=== PATIENT | female | born 1945 | race Caucasian/White ===

== ENCOUNTER → 2020-05-15 13:48 | Outpatient (BNVA) | payer MEDICARE, SELFPAY | PROVIDERS: PCP Internal Medicine; Referring Provider Internal Medicine; Visit Provider Internal Medicine Cardiovascular Disease | DX: I11.0 Hypertensive heart disease with heart failure (principal); I50.32 Chronic diastolic (congestive) heart failure; Z79.899 Other long term (current) drug therapy | CPT/HCPCS: 99212 ==

== ENCOUNTER 2020-11-19 11:13 | Outpatient (REF) | payer MEDICARE, SELFPAY ==
--- NOTE | ~2020-11-19 | MM_ITS ---
EXAMINATION: MM SCREENING DIGITAL BREAST TOMOSYNTHESIS, BILATERAL CLINICAL INFORMATION: Screening. Asymptomatic. The lifetime risk of breast cancer based on the Tyrer-Cuzick Model is 2%. COMPARISON: Mammography: 09/11/2019, 08/24/2018, 08/09/2017 TECHNIQUE: Digital breast tomosynthesis is performed in both the craniocaudal and mediolateral oblique views along with computer-aided detection (CAD). Synthesized 2D images are generated from the tomosynthesis. FINDINGS: The breasts are almost entirely fatty (ACR BI-RADS breast composition Category a). There are no significant masses, abnormal calcifications, or other abnormalities. Background stromal markings are stable. The skin contours are smooth. No significant changes. MM/MM tomosynthesis screening BI IMPRESSION: No mammographic evidence of malignancy. ASSESSMENT: BI-RADS 1: Negative RECOMMENDATION: Routine annual mammography screening. This patient's information was entered into a reminder system with a target due date for their next mammogram.
== END 2020-11-19 11:14 | disposition home or self-care (01) ==
LOC: HO.MAMMO 11:13
PROVIDERS: PCP Internal Medicine; Visit Provider Internal Medicine
DX: Z12.31 Encounter for screening mammogram for malignant neoplasm of breast (principal)
CPT/HCPCS: 77063; 77067

== ENCOUNTER → 2020-12-15 12:04 | Outpatient (BNVA) | payer MEDICARE, SELFPAY | PROVIDERS: PCP Internal Medicine; Visit Provider Orthopaedic Surgery | DX: M17.11 Unilateral primary osteoarthritis, right knee (principal); I50.32 Chronic diastolic (congestive) heart failure; G47.33 Obstructive sleep apnea (adult) (pediatric); I10 Essential (primary) hypertension | CPT/HCPCS: 99212 ==

== ENCOUNTER → 2020-12-22 14:52 | Outpatient (BNVA) | payer MEDICARE, SELFPAY | PROVIDERS: PCP Internal Medicine; Visit Provider Internal Medicine Cardiovascular Disease | DX: I11.0 Hypertensive heart disease with heart failure (principal); I50.32 Chronic diastolic (congestive) heart failure | CPT/HCPCS: 99212 ==

== ENCOUNTER → 2021-03-02 09:51 | Outpatient (BNVA) | payer MEDICARE, SELFPAY | PROVIDERS: PCP Internal Medicine; Visit Provider Orthopaedic Surgery | DX: Z01.812 Encounter for preprocedural laboratory examination (principal); Z01.810 Encounter for preprocedural cardiovascular examination ==

== ENCOUNTER 2021-03-20 08:00 | Outpatient (RCR) | payer MEDICARE, SELFPAY ==
--- NOTE | 2021-03-18 09:03 | MHC.PT.EP ---
[facility] [place] Office [place] Office [place] Office [address] Bayron Patrick [address] [phone] F: [phone] F: [phone] F: [phone] F: [phone] Physical Therapy Plan of Care Date of Evaluation: Date of Surgery: 04/15/21 Diagnosis: OA Rt KNEE-> PREHAB FOR RIGHT TKA 04/15/21 Assessment: 75 YO FEMALE REF TO PT FOR Rt TKR PREHAB, SURG SCHED 04/15/21. Pt CURRENTLY AMB W A CANE AND RESIDES ALONE IN A 1ST FLOOR APT, HER DTR IS HER BINDERY ASSISTANT TO ASSIST W ALL ADLs AND HOUSE CHORES. OBJECTIVE FINDINGS: (+) GENU VALGUS W LLI, DECR HIP AND ACTUALLY LEFT KNEE ROM LIMITATIONS, DECR STRENGTH IN KELLI LEs, AND Rt KNEE AND HIP PAIN. FUNCTIONALLY, Pt NOTES SHE IS LIMITED W ADLs REQ STANDING AND HER WALKING TOLERANCE IS LIMITED BY HER PAIN LEVEL IN Rt HIP AND KNEE. Pt IS A GOOD CANDIDTAE FOR PREHAB FOR Rt TKA SCHED 04/15/[address] CALDWELL TO ADDRESS THE ABOVE FINDINGS W RESPECT TO Jt PAIN. 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 Manual therapy to restore motion and function. Therapeutic exercise to improve strength and flexibility. Neuromuscular re-education for posture and balance. Therapeutic activities to return to functional activities of daily living. Electronically signed by: Leyla Teixeira,PT Please sign and return to therapist. Thank you for your referral.
--- NOTE | 2021-03-30 14:46 | MHC.PT.DC ---
[facility] [place] Office [place] Office [place] Office [address] Bayron Patrick [address] [phone] F: [phone] F: [phone] F: [phone] F: [phone] Physical Therapy Discharge Report Diagnosis: OA Rt KNEE-> PREHAB FOR RIGHT TKA 04/15/21 Date of Surgery: 04/15/21 Date of Evaluation: 03/18/21 Date of Discharge: 03/30/21 Treatments to Date: 2 Cancellations to Date: 2 No Shows to Date: 0 Discharge Status: Achieved Goals Improved Function Independent with HEP Patient Elected to Stop Discharge Summary: Pt called to cancel and D/C PT, reporting she will continue with her exercises at home prior to her upcoming surgery. She has a good understanding of TKA rehab and importance of HEP continuity at this time. Electronically signed by: Dawn Perkins BOW MAKER MACHINE TENDER/ Leyla Teixeira,PT Please sign and return to therapist. Thank you for your referral.
== END 2021-03-30 14:47 | disposition home or self-care (01) ==
LOC: HO.PT 08:00
PROVIDERS: PCP Internal Medicine; Visit Provider Orthopaedic Surgery
DX: M17.11 Unilateral primary osteoarthritis, right knee (principal)
CPT/HCPCS: 97110; 97162

== ENCOUNTER → 2021-03-31 13:08 | Outpatient (BNVA) | payer MEDICARE, SELFPAY | PROVIDERS: PCP Internal Medicine; Referring Provider Internal Medicine; Visit Provider Nurse Practitioner Family ==

== ENCOUNTER 2021-04-03 08:05 | Outpatient (REF) | payer MEDICARE, SELFPAY ==
--- NOTE | ~2021-04-03 | XR_ITS ---
EXAMINATION: X-RAY OF THE RIGHT KNEE CLINICAL INFORMATION: 75-year-old female patient with pain in the right knee. COMPARISON: X-ray of both knees on a total of 05/30/2018 and 05/15/2018. TECHNIQUE: AP standing views of both knees, lateral and sunrise views of the right knee. FINDINGS: Again both knees show a significant degree of osteoarthritis with severe joint space narrowing and bone on bone appearance to the lateral compartment of the right knee, right resulting in genu valgum, and medial compartment of the left knee. There is associated juxta-articular sclerosis and marginal hypertrophic spur formation. The right knee shows coexistent patellofemoral arthritis with marginal spur formation. There is no joint effusion of the right knee. Since 2018, there is progressive degenerative change of the left knee. XR/XR knee RT 2V IMPRESSION: Significant osteoarthritis of both knees worse on the right than left.
--- NOTE | ~2021-04-03 | XR_ITS ---
EXAMINATION: X-RAY OF THE RIGHT KNEE CLINICAL INFORMATION: 75-year-old female patient with pain in the right knee. COMPARISON: X-ray of both knees on a total of 05/30/2018 and 05/15/2018. TECHNIQUE: AP standing views of both knees, lateral and sunrise views of the right knee. FINDINGS: Again both knees show a significant degree of osteoarthritis with severe joint space narrowing and bone on bone appearance to the lateral compartment of the right knee, right resulting in genu valgum, and medial compartment of the left knee. There is associated juxta-articular sclerosis and marginal hypertrophic spur formation. The right knee shows coexistent patellofemoral arthritis with marginal spur formation. There is no joint effusion of the right knee. Since 2018, there is progressive degenerative change of the left knee. XR/XR knee standing BI IMPRESSION: Significant osteoarthritis of both knees worse on the right than left.
[2021-04-03 10:27] LABS: Anion Gap 15 (12-20); Blood Urea Nitrogen 26 mg/dL (9-16); Calcium 10.4 mg/dL (8.4-10.2); Carbon Dioxide 30 mmol/L (22-29); Chloride 98 mmol/L (96-108); Estimated Glomerular Filt Rate 48; Glucose Random 120 mg/dL (60-115); Sodium 140 mmol/L (135-145)
== END 2021-04-03 08:06 | disposition home or self-care (01) ==
LOC: HO.HOSX 08:05
PROVIDERS: Absent Provider Nurse Practitioner Family; PCP Internal Medicine; Visit Provider Physician Assistant
DX: M25.562 Pain in left knee (principal); I50.32 Chronic diastolic (congestive) heart failure; M17.11 Unilateral primary osteoarthritis, right knee
CPT/HCPCS: 36415; 73560; 73565; 80048; 99212

== ENCOUNTER → 2021-04-13 07:39 | Outpatient (REF) | payer MEDICARE, SELFPAY ==
--- NOTE | 2021-04-13 07:43 | CA_ITS ---
Transthoracic Echocardiogram Patient (Last, First, Middle): Victorina Francois E Gender: Female Date of : 1945 Age: 75 Procedure Date: 04/13/2021 Procedure Type: Transthoracic Echocardiogram Location: OP Height: 147.32 cm Weight: 84.37 kg BSA: 1.77 m2 Heart Rate: bpm BP: 118 / 60 mmHg Product Marketer: Referring MD: Bia Shrestha CNC MACHINE PROGRAMMERReena Symptoms: Z01.810 - Encounter for preprocedural cardiovascular exam... Study Quality: Fair ECG Rhythm: Sinus Conclusions: - The left ventricular systolic function is normal. The calculated ejection fraction is 72% by biplane method. - The left atrium is moderately dilated. - There is mild calcification of the aortic valve. - There is mild mitral annular calcification. Findings Left Ventricle Normal left ventricular cavity size. There is mildly increased left ventricular wall thickness. The left ventricular systolic function is normal. The calculated ejection fraction is 72% by biplane method. There is no evidence of regional wall motion abnormalities. E/E prime ratio is between 8 and 15 consistent with indeterminate filling pressures. Evidence suggests grade I (mild) diastolic dysfunction. Right Ventricle Normal right ventricular cavity size and systolic function. Atria The left atrium is moderately dilated. The right atrium is mildly dilated. Aortic Valve There is a normal trileaflet aortic valve. There is mild calcification of the aortic valve. There is no aortic valve stenosis. The mean gradient is 9 mmHg. The aortic valve area is 2.60 cm2. There is no aortic valve regurgitation. Mitral Valve There is mild mitral annular calcification. There is no mitral valve regurgitation. There is no mitral valve stenosis. Pulmonic Valve The pulmonic valve was not well visualized. Tricuspid Valve Normal tricuspid valve structure. There is mild tricuspid valve regurgitation. The pulmonary artery systolic pressure is normal. Great Vessels The aortic annulus, sinuses of valsalva, and asc aorta are normal in size. Small plaque is seen in the sino tubular ridge. Venous The inferior vena cava is normal in size and collapses greater than 50% with inspiration. Pericardium/Pleural There is no evidence of pericardial effusion. Prior Study Comparison Changes noted compared to prior study dated: 04/20/2018. Increase in left atrial size. Measurements 2D Linear Measurements IVSd: 1.24 0.6-0.9/0.6-1.0 cm LVIDd: 4.46 3.9-5.3/4.2-5.9 cm LVIDd Index: 2.52 2.4-3.2/2.2-3.1 cm/m2 LVIDs: 2.60 2.0-3.6 cm LVPWd: 1.22 0.7-1.1 cm Ao Root: 2.70 2.1-3.5 cm LA Diam: 3.80 2.7-3.8/3.0-4.0 cm LAIDs Index: 2.15 1.5-2.3 cm/m2 LV Mass: 252.36 67-162/88-224 g LV Mass Index: 142.58 43-95/49-115 g/m2 LVOT Diam: 2.10 3.0+(-)1.3 cm 2D Systolic Function EF 4C: 71.80 >55% EF 2C: 71.40 >55% EF BiP: 72.00 >55% Mitral Valve MV Pk E: 0.61 MV PK A: 1.05 MV Decel Time: 272.00 E/A: 0.60 E'Lateral: 6.53 E'Medial: 5.66 E/E' Med: 10.70 E/E' Lat: 9.30 PHT: 80.00 MVA PHT: 2.75 Decel Howard: 2.24 Aortic Valve AoV Pk Raman: 1.95 AoV Mn Raman: 1.36 AoV VTI: 0.46 AoV Pk Grad: 15.00 Aov Mn Grad: 9.00 STEVIE Cont.VTI: 2.60 LVOT LVOT Pk Raman: 1.35 LVOT Mn Raman: 1.00 LVOT VTI: 0.35 LVOT Pk Grad: 7.00 LVOT Mn Grad: 4.00 LVOT Diam: 2.10 LVOT Area: 3.46 Diastolic Function MV Pk E: 0.61 MV Pk A: 1.05 E/A: 0.60 E'Medial: 5.66 E/E' Med: 10.70 E' Laterial: 6.53 E/E' Lat: 9.30 Right Ventricle TAPSE (mm): 24.00 TVS' Raman: 11.00 Tricuspid Valve TR Pk Raman: 2.37 TR Pk Grad: 22.00 Great Vessels Aorta Ao Root-2D: 2.70 2.0-3.7 cm Ao Asc: 3.00 2.1-3.4 cm Pulmonary Valve PV Pk Raman: 1.15 Peak PV Grad: 5.00 Updated in Other Vendor System with Status of Final Jani Yoo MD electronically signed on 04/13/2021 10:03:29 AM with status of Final
== END ==
LOC: HO.CARD 07:39
PROVIDERS: PCP Internal Medicine; Visit Provider Nurse Practitioner Family
DX: Z01.810 Encounter for preprocedural cardiovascular examination (principal); I11.0 Hypertensive heart disease with heart failure; I50.32 Chronic diastolic (congestive) heart failure; G47.33 Obstructive sleep apnea (adult) (pediatric)
CPT/HCPCS: 93306

== ENCOUNTER → 2021-05-21 15:19 | Outpatient (BNVA) | payer MEDICARE, SELFPAY | PROVIDERS: Visit Provider Physician Assistant | DX: Z01.818 Encounter for other preprocedural examination (principal); M17.11 Unilateral primary osteoarthritis, right knee | CPT/HCPCS: 99212 ==

== ENCOUNTER 2021-05-27 06:25 | Inpatient (IN) | payer MEDICARE, SELFPAY ==
--- NOTE | 2021-03-18 06:50 | ECG_ITS ---
Test Reason : Z01.810 PREOP Blood Pressure : / mmHG Vent. Rate : 063 BPM Atrial Rate : 063 BPM P-R Int : 148 ms QRS Dur : 084 ms QT Int : 448 ms P-R-T Axes : 058 004 004 degrees QTc Int : 458 ms Normal sinus rhythm Possible Left atrial enlargement Nonspecific ST and T wave abnormality Abnormal ECG No previous ECGs available Referred By: Soto Ayon Electronically Signed By:NICHOLAS CARDOSO
[2021-03-18 06:54] LABS: MANUAL DIFF FLAG NO
[2021-03-18 07:00] LABS: Basophils Percent Auto 0.5 % (0-2); Eosinophils Absolute Auto 0.3 X10*3/uL (0.0-0.4); Eosinophils Percent Auto 4.1 % (0-4); Hematocrit 35.7 % (37-47); Hemoglobin 11.2 g/dl (12.0-16.0); Imm Gran Abs Auto 0.02 X10*3/uL (0.00-0.03); Imm Gran Pct Auto 0.3 % (0.0-0.4); Lymphocytes Absolute Auto 1.6 X10*3/uL (1.2-4.9); Lymphocytes Percent Auto 21.8 % (20-40); Mean Corpuscular HGB Conc 31.4 g/dl (31.0-35.0); Mean Corpuscular Hemoglobin 25.2 pg (27.0-33.0); Mean Corpuscular Volume 80.4 fL (80-98); Mean Platelet Volume 11.2 fL (9.4-12.3); Monocytes Absolute Auto 0.6 X10*3/uL (0.1-1.2); Monocytes Percent Auto 8.4 % (2-11); Neutrophils Absolute Auto 4.8 X10*3/uL (2.0-8.3); Neutrophils Percent Auto 64.9 % (45-73); Platelet Count 267 X10*3/uL (160-400); Red Blood Count 4.44 X10*6/uL (4.20-5.50); Red Cell Distribution Width 15.9 % (11.0-16.0); White Blood Count 7.4 X10*3/uL (4.8-10.8)
[2021-03-18 07:15] LABS: Anion Gap 10 (12-20); Blood Urea Nitrogen 17 mg/dL (9-16); Calcium 10.2 mg/dL (8.4-10.2); Carbon Dioxide 33 mmol/L (22-29); Chloride 102 mmol/L (96-108); Estimated Glomerular Filt Rate 58; Glucose Random 119 mg/dL (60-115); Potassium 3.1 mmol/L (3.3-5.1); Sodium 142 mmol/L (135-145)
[2021-03-18 07:48] LABS: Estimated Average Glucose 134 mg/dL; Hemoglobin A1C 150.2194 umol/L; Hemoglobin A1c % 6.3 %
--- NOTE | 2021-03-25 11:57 | HO.ANESPROP2 ---
HPI - Anesthesia Eval Consult details Narrative: Cx'd d/t low K (dropped from 3.1 to 2.8 after supplement - PCP to optimize) 75yo F for Right Knee Replacement Total 04/15/21 Low K, PCP rx'd supplement. PCP to recheck and see again preop for clearance Cardiac cleared for intermed (no recent echo, last 2018) - Reviewed with Dr Romero - update ECHO preop PMFSH Active Problems Active Problems: All Active Problems (Updated 03/24/21 @ 09:28 by Jasmyn Holland RN) Osteoarthritis of right knee (Acute) Chronic diastolic heart failure (Acute) Hypertension (Acute) JOVANNI (obstructive sleep apnea) (Acute) Past Medical History Medical History Chronic diastolic heart failure Diabetes GERD (gastroesophageal reflux disease) Hyperlipidemia Hypertension JOVANNI (obstructive sleep apnea) Osteoarthritis Family History Family History Father HTN (hypertension) Mother HTN (hypertension) CVD (cardiovascular disease) Daughter Bone cancer Father Cancer Family history of problems with anesthesia: No Surgical History Surgical History H/O: hysterectomy History of salpingoophorectomy History of tonsillectomy Hx of colonoscopy History of Problems with Anesthesia: No Social History Social History Are you a primary personal care worker to a significant other at home: No Do you presently have visiting nurse or other home services: Yes (VICE PRESIDENT TALENT MANAGEMENT daily and at night) Alcohol intake: never Patient Tobacco Use Status: Never used Tobacco Second Hand Smoke Exposure: No Current occupational status: retired Current occupation: Right handed Narrative Narrative: No recent illness - chronic nasal congestion No CP/SOB with rest - minimal activity r/t pain Meds Allergies Allergy/AdvReac Type Severity Reaction Status Date / Time Penicillins [PENICILLINS] Allergy Intermediate NAUSEA/HIVE Verified 03/31/21 13:19 S Home Medications Medication Instructions Recorded Confirmed Last Taken Type cyanocobalamin (vitamin B-12) 1,000 mcg PO DAILY 05/15/20 03/31/21 Unknown History 1,000 mcg tablet oxybutynin chloride 5 mg tablet 5 mg PO DAILY 05/15/20 03/31/21 Unknown History ranitidine HCl 300 mg tablet 300 mg PO BEDTIME 05/15/20 03/31/21 Unknown History calcium carbonate 600 mg calcium 1 tab PO QAM 03/24/21 03/31/21 Unknown History (1,500 mg) tablet cholecalciferol (vitamin D3) 25 1 tab PO QAM 03/24/21 03/31/21 Unknown History mcg (1,000 unit) tablet fluticasone propionate 50 1 - 2 spray INTRANASAL DAILY PRN 03/24/21 03/31/21 Unknown History mcg/actuation nasal spray,suspension metformin 500 mg tablet 0.5 tab PO BID 03/24/21 03/31/21 Unknown History Exam Exam Date and Time: March 25, 2021 1157 Height,Weight and Vital Signs: Pulse Resp BP Pulse Ox 67 20 143/66 H 96 03/25/21 12:26 03/25/21 12:26 03/25/21 12:26 03/25/21 12:26 Height 5 ft Weight 83.461 kg Pertinent Lab Results Pertinent Lab Results: Laboratory Tests 03/18/21 03/18/21 03/18/21 06:25 06:25 06:25 WBC 7.4 RBC 4.44 Hgb 11.2 L Hct 35.7 L MCV 80.4 MCH 25.2 L MCHC 31.4 RDW 15.9 Plt Count 267 MPV 11.2 Immature Gran % (Auto) 0.3 Neut % (Auto) 64.9 Lymph % (Auto) 21.8 [place] % (Auto) 8.4 Eos % (Auto) 4.1 H Baso % (Auto) 0.5 Lymph # (Auto) 1.6 [place] # (Auto) 0.6 Eos # (Auto) 0.3 Baso # (Auto) 0.0 Abs Immat Gran (auto) 0.02 Absolute Neuts (auto) 4.8 Absolute Nucleated RBC 0.000 Nucleated RBC % (auto) 0.0 Sodium 142 Potassium 3.1 L Chloride 102 Carbon Dioxide 33 H Anion Gap 10 L BUN 17 H Creatinine 0.94 Estim Creat Clear Calc TNP Estimated GFR 58 Random Glucose 119 H Estimat Average Glucose 134 Hemoglobin A1c % 6.3 Calcium 10.2 Narrative Narrative: EKG Vent. Rate : 063 BPM ? ? Atrial Rate : 063 BPM ?? P-R Int : 148 ms? QRS Dur : 084 ms ? ? QT Int : 448 ms ? ? ? P-R-T Axes : 058 004 004 degrees ?? QTc Int : 458 ms ? Normal sinus rhythm Possible Left atrial enlargement Nonspecific ST and T wave abnormality Abnormal ECG No previous ECGs available ECHO 04/2021 Conclusions: - The left ventricular systolic function is normal.? The ? calculated ejection fraction is 72% by biplane method. ? - The left atrium is moderately dilated. ? - There is mild calcification of the aortic valve. ? - There is mild mitral annular calcification.? ?? Airway Mallampati Class: II TM Dist: >3cm Neck ROM: Full Denture: Upper and Lower Heart: RRR Lungs: CTAB Assessment and Plan Assessment Anesthesia Assessment: Anesthesia Plan Discussed and PAT Visit Final Anesthetic Review Family History of Problems with Anesthesia: No History of Problems with Anesthesia: No
[2021-03-25 12:26] VITALS: BP 143/66; PULSE 67; RESP 20; O2SAT 96; BMI 35.9
[2021-03-25 15:01] LABS: MRSA Nasal PCR NEGATIVE (Negative); SA Nasal PCR POSITIVE (Negative)
[2021-04-13 09:58] LABS: Anion Gap 14 (12-20); Blood Urea Nitrogen 46 mg/dL (9-16); Calcium 10.7 mg/dL (8.4-10.2); Carbon Dioxide 31 mmol/L (22-29); Chloride 95 mmol/L (96-108); Creatinine Clr Calc Pharmacy 40.6; Estimated Glomerular Filt Rate 48; Glucose Random 113 mg/dL (60-115); Potassium 2.8 mmol/L (3.3-5.1); Sodium 137 mmol/L (135-145)
[2021-05-22 08:32] LABS: Anion Gap 13 (12-20); Blood Urea Nitrogen 14 mg/dL (9-16); Carbon Dioxide 29 mmol/L (22-29); Chloride 105 mmol/L (96-108); Creatinine Clr Calc Pharmacy 53.7; Estimated Glomerular Filt Rate > 60; Glucose Random 101 mg/dL (60-115); Potassium 3.7 mmol/L (3.3-5.1); Sodium 143 mmol/L (135-145)
--- NOTE | 2021-05-26 09:38 | HO.ANESPROP2 ---
Documented by User: Sara Pappas NP 05/26/21 09:42 HPI - Anesthesia Eval Consult details Narrative: 75yo F for Right Knee Replacement Total Previously cx'd d/t low K. Supplemented and now WNL PCP cleared Cardiac cleared @ [facility] Active Problems Active Problems: All Active Problems (Updated 03/30/21 @ 15:17 by MAEVE NicholsonC) Preop cardiovascular exam (Acute) Osteoarthritis of right knee (Acute) Chronic diastolic heart failure (Acute) Hypertension (Acute) JOVANNI (obstructive sleep apnea) (Acute) Past Medical History Medical History Chronic diastolic heart failure Diabetes GERD (gastroesophageal reflux disease) Hyperlipidemia Hypertension JOVANNI (obstructive sleep apnea) Osteoarthritis Family History Family History Father HTN (hypertension) Mother HTN (hypertension) CVD (cardiovascular disease) Daughter Bone cancer Father Cancer Family history of problems with anesthesia: No Surgical History Surgical History H/O: hysterectomy History of salpingoophorectomy History of tonsillectomy Hx of colonoscopy History of Problems with Anesthesia: No Social History Social History Are you a primary summer child caregiver to a significant other at home: No Do you presently have visiting nurse or other home services: Yes (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 If so, by whom?: No Are you DNR?: No Advance Directives: No Advance Directives Information Provided: No Advance Directives on File: No Recently lost weight without trying: No Eating poorly because of decreased appetite: No Nutrition Risks: No Nutritional Risk Patient : No Current occupational status: retired Current occupation: Right handed Meds Allergies Allergy/AdvReac Type Severity Reaction Status Date / Time Penicillins [PENICILLINS] Allergy Intermediate NAUSEA/HIVE Verified 05/27/21 06:33 S Home Medications Medication Instructions Recorded Confirmed Last Taken Type cyanocobalamin (vitamin B-12) 1,000 mcg PO DAILY 05/15/20 03/31/21 Unknown History 1,000 mcg tablet oxybutynin chloride 5 mg tablet 5 mg PO DAILY 05/15/20 03/31/21 Unknown History ranitidine HCl 300 mg tablet 300 mg PO BEDTIME 05/15/20 03/31/21 Unknown History calcium carbonate 600 mg calcium 1 tab PO QAM 03/24/21 03/31/21 Unknown History (1,500 mg) tablet cholecalciferol (vitamin D3) 25 1 tab PO QAM 03/24/21 03/31/21 Unknown History mcg (1,000 unit) tablet fluticasone propionate 50 1 - 2 spray INTRANASAL DAILY PRN 03/24/21 03/31/21 Unknown History mcg/actuation nasal spray,suspension metformin 500 mg tablet 0.5 tab PO BID 03/24/21 03/31/21 Unknown History Exam Exam Date and Time: May 26, 2021 0938 Height,Weight and Vital Signs: Height 5 ft Weight 83.461 kg Last Vital Signs Pulse 67 03/25/21 12:26 Resp 20 03/25/21 12:26 BP 143/66 H 03/25/21 12:26 Pulse Ox 96 03/25/21 12:26 Pertinent Lab Results Pertinent Lab Results: Laboratory Last Values WBC 7.4 X10*3/uL (4.8-10.8) 03/18/21 06:25 RBC 4.44 X10*6/uL (4.20-5.50) 03/18/21 06:25 Hgb 11.2 g/dl (12.0-16.0) L 03/18/21 06:25 Hct 35.7 % (37-47) L 03/18/21 06:25 MCV 80.4 fL (80-98) 03/18/21 06:25 MCH 25.2 pg (27.0-33.0) L 03/18/21 06:25 MCHC 31.4 g/dl (31.0-35.0) 03/18/21 06:25 RDW 15.9 % (11.0-16.0) 03/18/21 06:25 Plt Count 267 X10*3/uL (160-400) 03/18/21 06:25 MPV 11.2 fL (9.4-12.3) 03/18/21 06:25 Immature Gran % (Auto) 0.3 % (0.0-0.4) 03/18/21 06:25 Neut % (Auto) 64.9 % (45-73) 03/18/21 06:25 Lymph % (Auto) 21.8 % (20-40) 03/18/21 06:25 [place] % (Auto) 8.4 % (2-11) 03/18/21 06:25 Eos % (Auto) 4.1 % (0-4) H 03/18/21 06:25 Baso % (Auto) 0.5 % (0-2) 03/18/21 06:25 Lymph # (Auto) 1.6 X10*3/uL (1.2-4.9) 03/18/21 06:25 [place] # (Auto) 0.6 X10*3/uL (0.1-1.2) 03/18/21 06:25 Eos # (Auto) 0.3 X10*3/uL (0.0-0.4) 03/18/21 06:25 Baso # (Auto) 0.0 X10*3/uL (0.0-0.2) 03/18/21 06:25 Abs Immat Gran (auto) 0.02 X10*3/uL (0.00-0.03) 03/18/21 06:25 Absolute Neuts (auto) 4.8 X10*3/uL (2.0-8.3) 03/18/21 06:25 Absolute Nucleated RBC 0.000 X10*3/uL (0.0-0.012) 03/18/21 06:25 Nucleated RBC % (auto) 0.0 /100WBC (0.0-0.2) 03/18/21 06:25 Sodium 143 mmol/L (135-145) 05/22/21 08:10 Potassium 3.7 mmol/L (3.3-5.1) D 05/22/21 08:10 Chloride 105 mmol/L (96-108) 05/22/21 08:10 Carbon Dioxide 29 mmol/L (22-29) 05/22/21 08:10 Anion Gap 13 (12-20) 05/22/21 08:10 BUN 14 mg/dL (9-16) D 05/22/21 08:10 Creatinine 0.84 mg/dL (0.5-1.4) 05/22/21 08:10 Estim Creat Clear Calc 53.7 05/22/21 08:10 Estimated GFR > 60 05/22/21 08:10 Random Glucose 101 mg/dL (60-115) 05/22/21 08:10 Estimat Average Glucose 134 mg/dL 03/18/21 06:25 Hemoglobin A1c % 6.3 % 03/18/21 06:25 Calcium 10.0 mg/dL (8.4-10.2) D 05/22/21 08:10 Nasal Screen MRSA (PCR) NEGATIVE (Negative) 03/25/21 12:30 Nasal S. aureus Screen POSITIVE (Negative) A 03/25/21 12:30 Nasal MRSA/S.aureus Interp SEE NOTE 03/25/21 12:30 Blood Type A Negative 05/22/21 08:05 Antibody Screen NEGATIVE 05/22/21 08:05 Narrative Narrative: EKG 03/2021 Vent. Rate : 063 BPM ? ? Atrial Rate : 063 BPM ?? P-R Int : 148 ms? QRS Dur : 084 ms ? ? QT Int : 448 ms ? ? ? P-R-T Axes : 058 004 004 degrees ?? QTc Int : 458 ms ? Normal sinus rhythm Possible Left atrial enlargement Nonspecific ST and T wave abnormality Abnormal ECG No previous ECGs available ECHO 04/2021 Conclusions: - The left ventricular systolic function is normal.? The ? calculated ejection fraction is 72% by biplane method. ? - The left atrium is moderately dilated. ? - There is mild calcification of the aortic valve. ? - There is mild mitral annular calcification.?? Airway Mallampati Class: II TM Dist: >3cm Neck ROM: Full Denture: Upper and Lower Assessment and Plan Assessment Anesthesia Assessment: Chart Reviewed (Previously seen at [facility] 03/2021) Final Anesthetic Review Family History of Problems with Anesthesia: No History of Problems with Anesthesia: No Documented by User: Hima Romero MD 05/27/21 07:08 [facility] Past Medical History Medical History Chronic diastolic heart failure Diabetes GERD (gastroesophageal reflux disease) Hyperlipidemia Hypertension JOVANNI (obstructive sleep apnea) Osteoarthritis Family History Family History Father HTN (hypertension) Mother HTN (hypertension) CVD (cardiovascular disease) Daughter Bone cancer Father Cancer Surgical History Surgical History H/O: hysterectomy History of salpingoophorectomy History of tonsillectomy Hx of colonoscopy Social History Social History Are you a primary summer child caregiver to a significant other at home: No Do you presently have visiting nurse or other home services: Yes (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 If so, by whom?: No Are you DNR?: No Advance Directives: No Advance Directives Information Provided: No Advance Directives on File: No Recently lost weight without trying: No Eating poorly because of decreased appetite: No Nutrition Risks: No Nutritional Risk Patient : No Current occupational status: retired Current occupation: Right handed Meds Allergies Allergy/AdvReac Type Severity Reaction Status Date / Time Penicillins [PENICILLINS] Allergy Intermediate NAUSEA/HIVE Verified 05/27/21 06:33 S Home Medications Medication Instructions Recorded Confirmed Last Taken Type cyanocobalamin (vitamin B-12) 1,000 mcg PO DAILY 05/15/20 03/31/21 Unknown History 1,000 mcg tablet oxybutynin chloride 5 mg tablet 5 mg PO DAILY 05/15/20 03/31/21 Unknown History ranitidine HCl 300 mg tablet 300 mg PO BEDTIME 05/15/20 03/31/21 Unknown History calcium carbonate 600 mg calcium 1 tab PO QAM 03/24/21 03/31/21 Unknown History (1,500 mg) tablet cholecalciferol (vitamin D3) 25 1 tab PO QAM 03/24/21 03/31/21 Unknown History mcg (1,000 unit) tablet fluticasone propionate 50 1 - 2 spray INTRANASAL DAILY PRN 03/24/21 03/31/21 Unknown History mcg/actuation nasal spray,suspension metformin 500 mg tablet 0.5 tab PO BID 03/24/21 03/31/21 Unknown History Exam Airway Heart: [id number] Lungs: cta b/l Assessment and Plan Final Anesthetic Review NPO: Yes ASA Class: III Final Preanesthetic Review: No Changes in Pt Med Stat, Meds/Allgs Chart Reviewed, Consent Obtained/Reviewed and Anes Risks/Benef Reviewed Patient Risk: Intermediate Procedure Risk: Intermediate Assessment/Block/Sedation in SS: Assess/Block/Sedation-SS Anesthetic Plan Anesthetic Plan: Spinal and Regional Block Disposition: Standard PACU
[2021-05-27] VITALS (13 sets, daily range): BP systolic 110–147; BP diastolic 51–81; PULSE 56–110; RESP 16–20; TEMP 36.1–36.6; O2SAT 91–100; BMI 37.0
--- NOTE | ~2021-05-27 | XR_ITS ---
EXAMINATION: XR KNEE, RIGHT CLINICAL INFORMATION: Status post right total knee arthroplasty COMPARISON: April 03, 2021 TECHNIQUE: AP and lateral views of the right knee. FINDINGS: Patient status post right total knee arthroplasty with prosthetic components in position. No acute fracture or dislocation is seen. There is some gas within the soft tissues from recent surgery as well as a small knee effusion. Anterior staple line present. XR/XR knee RT 2V IMPRESSION: Satisfactory appearance status post right total knee arthroplasty.
[2021-05-27 06:39] LABS: Hemoglobin 10.8 g/dl (12.0-16.0); Mean Corpuscular HGB Conc 30.9 g/dl (31.0-35.0); Mean Corpuscular Hemoglobin 25.1 pg (27.0-33.0); Mean Corpuscular Volume 81.4 fL (80.0-98.0); Mean Platelet Volume 11.1 fL (9.4-12.3); Platelet Count 255 X10*3/uL (160-400); Red Cell Distribution Width 16.3 % (11.0-16.0); White Blood Count 8.6 X10*3/uL (4.8-10.8)
[2021-05-27 06:53] LABS: Glucose, Whole Blood 109 mg/dL (60-115)
[2021-05-27 06:59] LABS: COVID-19 Test Negative (Negative); IDNOW Serial# 9DD0AD1C
[2021-05-27] MEDS: Lactated Ringers 1,000 ML 50 ML IVCONT (07:12)
--- NOTE | 2021-05-27 07:32 | MHC.SHP ---
Pre-Procedural Eval Section A Date of Service: 05/27/21 The patient is an INPATIENT: No Changes since office visit: Yes Patient answered all questions; No Cold of Flu in the past 2 weeks, No New Medical Problems and No Changes in Medication The History & Physical has been completed within 30 days and I have reviewed it.: Yes Section B Chief Complaint: Right Knee Osteoarthritis Allergies: Allergies Allergy/AdvReac Type Severity Reaction Status Date / Time Penicillins [PENICILLINS] Allergy Intermediate NAUSEA/HIVE Verified 05/27/21 06:33 S Plan I have reviewed the history and physical and performed a pertinent physical examination on my patient. No changes have occurred unless specified.
--- NOTE | 2021-05-27 09:27 | P.BOP_ITS ---
Brief Operative Note Date of Service: 05/27/21 Pre-op diagnosis: RIght knee OA Post-op diagnosis: same Procedure: Right TKA Implants: Strykler triathalon posterior stabilized cemented with TS insert 09/11/10 Surgeon: Soto Ayon MD Anesthesia: regional and spinal Was an Pick And Shovel Man used for this Procedure?: Yes Pick And Shovel Man: Laura Ruiz Estimated blood loss (mL): 250 IV fluids (mL): 1,000 Pathology: other Condition: stable Disposition: PACU
--- NOTE | 2021-05-27 09:45 | P.OP_ITS ---
Operative Note Operative Note Date of Service: 05/27/21 Narrative: Pre-op diagnosis: RIght knee OA Post-op diagnosis: same Procedure: Right TKA Implants: Strykler triathalon posterior stabilized cemented with TS insert 09/11/10 Surgeon: Soto Ayon MD Anesthesia: regional and spinal Was an Operations Research Engineer used for this Procedure?: Yes Operations Research Engineer: Laura Ruiz Estimated blood loss (mL): 250 IV fluids (mL): 1,000 Pathology: other Condition: stable Disposition: PACU Procedure in detail: The patient was brought to the operating room and prepped and draped in standard sterile fashion. A time-out was called to identify proper site proper procedure proper surgeon IV antibiotics were administered. 1 g of IV tranexamic acid was also administered. I began by making a midline incision to the retinaculum and performed a medial parapatellar arthrotomy. The patella was translated laterally and the knee was flexed up. The knee was eburnated with a valgus deformity and sclerotic lateral compartment. I performed a small medial peel and resected the infrapatellar fat pad. Alvina's line was then used to drill my intramedullary femoral guide and my distal femur cut was made in 5 degrees of valgus. I then measured a # 3 femur and placed my cutting guide and made my anterior posterior and chamfer cuts protecting the soft tissues at all times. I then made my box cut removing the PCL. Once I was satisfied with my cut I turned my attention to the tibia. I removed the meniscus and , using an external cutting guide, in line with the tibial crest and the third ray, I made my distal tibial cut ( 0 deg slope) while protecting the PCL the posterior soft tissues at all times. An extension block was used to confirm appropriate amount of bony resection. I then sized a #4 tibia and once I was satisfied that there was complete tibial coverage I placed my trial and with the trial femur in place took the knee through range of motion. I was satisfied with the extension and flexion as well as the stability at 0, 30 and 90 degrees. I then turned my attention to the patella where I removed 1 cm from the undersurface of the patella and then trialed a 29a patellar button. Again the knee was taken through range of motion I was satisfied with the tracking. I then prepared the tibia with a punch and drill. Femoral bone plug was then placed and the knee was irrigated copiously. I then cemented the patella, tibia and femur in standard fashion while applying axial compression.. I trialed different inserts until I selected a #11 insert. The final insert was placed and a 3 minutes iodine soak with local TXA was performed. The knee was then closed with a running Quill suture, a 3 0 Vicryl and karey on the skin. Patient was then placed in sterile dressing and brought to recovery room in stable condition there were no known complications.
[2021-05-27] MEDS: 0.9 % Sodium Chloride Flush 3 ML SYRINGE IVFLUSH ×3 (11:46→21:01)
[2021-05-27] MEDS: Dextrose 5 % and 0.45 % NaCl 1,000 ML 80 ML IVCONT (12:06)
[2021-05-27 12:13] LABS: Glucose, Whole Blood 136 mg/dL (60-115)
[2021-05-27] MEDS: Cholecalciferol (Vitamin D3) 25 MCG TABLET PO (12:16)
[2021-05-27] MEDS: hydroCHLOROthiazide 50 MG TABLET PO (12:16)
[2021-05-27] MEDS: metFORMIN HCl 500 MG TABLET 250 MG PO (12:17)
[2021-05-27] MEDS: oxyCODONE HCl ER 10 MG TAB.ER.12H PO ×2 (12:17→20:56)
[2021-05-27] MEDS: Losartan Potassium 50 MG TABLET 100 MG PO (12:18)
[2021-05-27] MEDS: Cyanocobalamin (Vitamin B-12) 1,000 MCG TABLET 1000 MCG PO (12:18)
[2021-05-27] MEDS: oxyCODONE HCl Immed Release 5 MG TABLET PO ×2 (12:18→16:16)
[2021-05-27] MEDS: Atorvastatin Calcium 40 MG TABLET PO (12:19)
[2021-05-27] MEDS: Celecoxib 200 MG CAPSULE PO ×2 (12:19→20:55)
[2021-05-27] MEDS: Docusate Sodium 100 MG CAPSULE PO ×2 (12:19→20:55)
[2021-05-27] MEDS: carvediloL 12.5 MG TABLET PO ×2 (12:19→20:56)
[2021-05-27] MEDS: Furosemide 20 MG TABLET PO (12:19)
--- NOTE | 2021-05-27 13:47 | P.HPHOSP_ITS ---
History of Present Illness Date of Service: 05/27/21 Attending physician on admission: Soto Ayon Chief Complaint: medical management Patient is 75-year-old female with history of CHF, diabetes, GERD, hyperlipidemia hypertension, JOVANNI, osteoarthritis-came for elective OA mangement -s/p TKA right knee . Patient still has knee soreness. Denies any new complaint of chest pain or shortness of breath or abdominal pain or fever or chills or nausea or vomiting Denies any cough Denies any weakness or numbness. Review of Systems Review of Systems: as above. [facility] Medical History Chronic diastolic heart failure Diabetes GERD (gastroesophageal reflux disease) Hyperlipidemia Hypertension JOVANNI (obstructive sleep apnea) Osteoarthritis Family History Father HTN (hypertension) Mother HTN (hypertension) CVD (cardiovascular disease) Daughter Bone cancer Father Cancer Surgical History H/O: hysterectomy History of salpingoophorectomy History of tonsillectomy Hx of colonoscopy Social History Are you a primary child caregiver private home to a significant other at home: No Do you presently have visiting nurse or other home services: Yes ([employer] daily and at night) Alcohol intake: never Patient Tobacco Use Status: Never used Tobacco Second Hand Smoke Exposure: No Use of substances other than those prescribed or required for medical reasons: No Currently Displaying Signs/Symptoms of Drug Intoxication Withdrawal: No Have you been hit, kicked, punched, or otherwise hurt by someone within the past year? If so, by whom?: No Are you DNR?: No Advance Directives: No Advance Directives Information Provided: No Advance Directives on File: No Do you have thoughts of harming others: None Do you have a plan to hurt others: No Plan Recently lost weight without trying: No Eating poorly because of decreased appetite: No Nutrition Risks: No Nutritional Risk Patient : No Current occupational status: retired Current occupation: Right handed Meds Allergies Allergy/AdvReac Type Severity Reaction Status Date / Time Penicillins [PENICILLINS] Allergy Intermediate NAUSEA/HIVE Verified 05/27/21 06:33 S Active Medications: Current Medications Acetaminophen (Acetaminophen 325 Mg Tablet) 650 mg PO Q6H PRN PRN Reason: Pain, Mild (Pain Scale 1-3) Atorvastatin Calcium (Atorvastatin Calcium 40 Mg Tablet) 40 mg PO DAILY [facility] Last Admin: 05/27/21 12:19 Dose: 40 mg Documented by: Calcium Carbonate (Calcium Carbonate 500 Mg Tablet) 500 mg PO DAILY [facility] Last Admin: 05/27/21 12:16 Dose: 500 mg Documented by: Carvedilol (Carvedilol 12.5 Mg Tablet) 12.5 mg PO BID [facility]; Protocol Last Admin: 05/27/21 12:19 Dose: 12.5 mg Documented by: Celecoxib (Celecoxib 200 Mg Capsule) 200 mg PO BID [facility] Last Admin: 05/27/21 12:19 Dose: 200 mg Documented by: Cyanocobalamin (Cyanocobalamin (Vitamin B-12) 1,000 Mcg Tablet) 1,000 mcg PO DAILY [facility] Last Admin: 05/27/21 12:18 Dose: 1,000 mcg Documented by: Docusate Sodium (Docusate Sodium 100 Mg Capsule) 100 mg PO BID [facility] Last Admin: 05/27/21 12:19 Dose: 100 mg Documented by: Famotidine (Famotidine 20 Mg Tablet) 40 mg PO BEDTIME [facility] Fluticasone Propionate (Fluticasone Propionate Nasal 16 Gm [place]) 1 - 2 spray NOSTRIL-B DAILY PRN PRN Reason: Nasal Congestion Furosemide (Furosemide 20 Mg Tablet) 20 mg PO DAILY [facility]; Protocol Last Admin: 05/27/21 12:19 Dose: 20 mg Documented by: Hydrochlorothiazide (Hydrochlorothiazide 50 Mg Tablet) 50 mg PO DAILY [facility] Last Admin: 05/27/21 12:16 Dose: 50 mg Documented by: Hydromorphone HCl (Hydromorphone Hcl 0.5 Mg/0.5 Ml Syringe) 0.25 mg IVPUSH Q4H PRN; Protocol PRN Reason: Pain, Severe (Pain Scale 7-10) Cefazolin Sodium/Dextrose (Ancef) 2 gm in 50 mls @ 100 mls/hr IV POSTOP ONE Stop: 05/27/21 14:40 Dextrose/Sodium Chloride (D51/2ns) 1,000 mls @ 80 mls/hr IVCONT .[id number] [facility] Last Admin: 05/27/21 12:06 Dose: 80 mls/hr Documented by: Losartan Potassium (Losartan Potassium 50 Mg Tablet) 100 mg PO DAILY [facility]; Protocol Last Admin: 05/27/21 12:18 Dose: 100 mg Documented by: Metformin HCl (Metformin Hcl 500 Mg Tablet) 250 mg PO BID [facility] Last Admin: 05/27/21 12:17 Dose: 250 mg Documented by: Oxycodone HCl (Oxycodone Hcl Immed Release 5 Mg Tablet) 5 mg PO Q4H PRN PRN Reason: Pain, Moderate (Pain Scale 4-6 Last Admin: 05/27/21 12:18 Dose: 5 mg Documented by: Oxycodone HCl (Oxycodone Hcl Er 10 Mg Tab.Er.12h) 10 mg PO BID [facility] Last Admin: 05/27/21 12:17 Dose: 10 mg Documented by: Sodium Chloride (0.9 % Sodium Chloride Flush 3 Ml Syringe) 3 ml IVFLUSH QSHIFT [facility] Last Admin: 05/27/21 11:46 Dose: 3 ml Documented by: Vitamin D (Cholecalciferol (Vitamin D3) 25 Mcg Tablet) 25 mcg PO DAILY [facility] Last Admin: 05/27/21 12:16 Dose: 25 mcg Documented by: Home Medications Medication Instructions Recorded Confirmed Last Taken Type cyanocobalamin (vitamin B-12) 1,000 mcg PO DAILY 05/15/20 03/31/21 Unknown History 1,000 mcg tablet oxybutynin chloride 5 mg tablet 5 mg PO DAILY 05/15/20 03/31/21 Unknown History ranitidine HCl 300 mg tablet 300 mg PO BEDTIME 05/15/20 03/31/21 Unknown History calcium carbonate 600 mg calcium 1 tab PO QAM 03/24/21 03/31/21 Unknown History (1,500 mg) tablet cholecalciferol (vitamin D3) 25 1 tab PO QAM 03/24/21 03/31/21 Unknown History mcg (1,000 unit) tablet fluticasone propionate 50 1 - 2 spray INTRANASAL DAILY PRN 03/24/21 03/31/21 Unknown History mcg/actuation nasal spray,suspension metformin 500 mg tablet 0.5 tab PO BID 03/24/21 03/31/21 Unknown History amlodipine 10 mg tablet 20 mg PO DAILY 05/27/21 05/27/21 05/27/21 History Physical Exam Vital Signs and Narrative: Vital Signs: Last Vital Signs Temp 96.9 F 05/27/21 12:00 Pulse 64 05/27/21 12:00 Resp 18 05/27/21 12:00 BP 143/70 H 05/27/21 12:00 Pulse Ox 99 05/27/21 12:00 Body Mass Index 37.0 Physical exam: Appearance: Alert.? Oriented X3.? not in distress.? Eyes: Pupils equal, round and reactive to light.? Sclera nonicteric.? ENT: Pharynx normal.? Moist mucous membranes. cvs: rrr, [id number] , no murmur res: clear to auscultation ,no rhonchii or wheezing abd: no rebound or guarding ,nt, bs present. ext right knee wrapped , mild soarness , no erythema neuro: axo3 , nonfocal. Results Labs CBC and Chem 7: 05/27/21 06:26 05/22/21 08:10 Labs: Laboratory Results - last 24 hr 05/27/21 05/27/21 05/27/21 06:15 06:26 06:27 MCV 81.4 MCH 25.1 L MCHC 30.9 L RDW 16.3 H Plt Count 255 MPV 11.1 Absolute Nucleated RBC 0.000 Nucleated RBC % (auto) 0.0 POC Glucose 109 COVID-19 ([facility]) Negative COVID-19 Clin Com See Note 05/27/21 12:08 MCV MCH MCHC RDW Plt Count MPV Absolute Nucleated RBC Nucleated RBC % (auto) POC Glucose 136 H COVID-19 ([facility]) COVID-19 Clin Com Imaging Radiologist's Impressions: CXR: IMPRESSION: Satisfactory appearance status post right total knee arthroplasty. Assessment and Plan (1) Chronic diastolic heart failure: Status: Acute (2) Hypertension: Status: Acute (3) JOVANNI (obstructive sleep apnea): Status: Acute 1. Knee OA: s/p tka Pain management Bowel regimen Incentive spirometry Chest physio 2.Chronic diastolic heart failure: Continue Lasix and losartan, DC IV fluid. 3.Diabetes: Fingersticks acceptable, Fingerstick with sliding seen coverage. 4.GERD (gastroesophageal reflux disease): Continue famotidine. 5.Hyperlipidemia: Continue statin. 6.Hypertension: Continue losartan, hydrochlorothiazide. 7.JOVANNI (obstructive sleep apnea): Stable continue oxygen for now. Did not tolerate CPAP. DVT prophylaxis with SCD as per primary team. Quality Stroke Does the patient have a stroke diagnosis?: No VTE Prior VTE?: No VTE Risk Level:: Medical - moderate - high VTE Device Contraindication: N/A - Device Ordered VTE Drug Contraindication: N/A - Med Ordered
[2021-05-27] MEDS: ceFAZolin Sodium/Dextrose,Iso 2 GM/50 ML PIGGYBACK IV (14:11)
--- NOTE | 2021-05-27 14:52 | PC.NURSE ---
Skin assessment completed. Patient has surgical incision to left knee with intact dressing. Scattered bruising on arms. No other skin issues or open areas at this time. patient is on a turn and reposition schedule every 2 hours.
[2021-05-27 15:53] LABS: Glucose, Whole Blood 172 mg/dL (60-115)
[2021-05-27] MEDS: Insulin Lispro 100 UNIT/ML 3 ML VIAL SUBCUT ×2 (16:16→20:57)
[2021-05-27 19:40] LABS: Glucose, Whole Blood 183 mg/dL (60-115)
[2021-05-27] MEDS: Famotidine 20 MG TABLET 40 MG PO (20:54)
[2021-05-28] VITALS (9 sets, daily range): BP systolic 119–147; BP diastolic 58–70; PULSE 59–72; RESP 16–18; TEMP 36.3–37.2; O2SAT 92–98
[2021-05-28] MEDS: Acetaminophen 325 MG TABLET 650 MG PO ×2 (03:41→11:13)
[2021-05-28 06:05] LABS: MANUAL DIFF FLAG NO
[2021-05-28 06:07] LABS: Basophils Percent Auto 0.1 % (0-2); Hematocrit 31.7 % (37.0-47.0); Hemoglobin 9.9 g/dl (12.0-16.0); Imm Gran Abs Auto 0.06 X10*3/uL (0.00-0.03); Imm Gran Pct Auto 0.5 % (0.0-0.4); Lymphocytes Absolute Auto 0.7 X10*3/uL (1.2-4.9); Lymphocytes Percent Auto 5.5 % (20-40); Mean Corpuscular HGB Conc 31.2 g/dl (31.0-35.0); Mean Corpuscular Hemoglobin 25.1 pg (27.0-33.0); Mean Corpuscular Volume 80.5 fL (80.0-98.0); Mean Platelet Volume 11.1 fL (9.4-12.3); Monocytes Absolute Auto 0.7 X10*3/uL (0.1-1.2); Monocytes Percent Auto 5.6 % (2-11); Neutrophils Absolute Auto 10.7 x10*3/uL (2.0-8.3); Neutrophils Percent Auto 88.3 % (45-73); Platelet Count 239 X10*3/uL (160-400); Red Blood Count 3.94 X10*6/uL (4.20-5.50); Red Cell Distribution Width 15.9 % (11.0-16.0); White Blood Count 12.2 X10*3/uL (4.8-10.8)
[2021-05-28 06:22] LABS: Anion Gap 14 (12-20); Blood Urea Nitrogen 17 mg/dL (9-16); Calcium 9.8 mg/dL (8.4-10.2); Carbon Dioxide 28 mmol/L (22-29); Chloride 103 mmol/L (96-108); Creatinine Clr Calc Pharmacy 49.4; Estimated Glomerular Filt Rate 58; Glucose Fasting 126 mg/dL (60-99); Potassium 3.4 mmol/L (3.3-5.1); Sodium 142 mmol/L (135-145)
[2021-05-28 07:41] LABS: Magnesium 1.8 mg/dL (1.6-2.6)
[2021-05-28 07:53] LABS: Glucose, Whole Blood 127 mg/dL (60-115)
[2021-05-28] MEDS: Potassium Chloride Packet 20 MEQ PACKET PO (08:47)
[2021-05-28] MEDS: hydroCHLOROthiazide 50 MG TABLET PO (08:48)
[2021-05-28] MEDS: Celecoxib 200 MG CAPSULE PO ×2 (08:48→21:07)
[2021-05-28] MEDS: carvediloL 12.5 MG TABLET PO ×2 (08:48→21:07)
[2021-05-28] MEDS: Docusate Sodium 100 MG CAPSULE PO ×2 (08:48→21:06)
[2021-05-28] MEDS: oxyCODONE HCl ER 10 MG TAB.ER.12H PO ×2 (08:48→21:06)
[2021-05-28] MEDS: Cholecalciferol (Vitamin D3) 25 MCG TABLET PO (08:48)
[2021-05-28] MEDS: Furosemide 20 MG TABLET PO (08:48)
[2021-05-28] MEDS: Cyanocobalamin (Vitamin B-12) 1,000 MCG TABLET 1000 MCG PO (08:48)
[2021-05-28] MEDS: 0.9 % Sodium Chloride Flush 3 ML SYRINGE IVFLUSH ×3 (08:48→21:10)
[2021-05-28] MEDS: metFORMIN HCl 500 MG TABLET 250 MG PO (08:48)
[2021-05-28] MEDS: Losartan Potassium 50 MG TABLET 100 MG PO (08:49)
[2021-05-28] MEDS: Atorvastatin Calcium 40 MG TABLET PO (08:49)
--- NOTE | 2021-05-28 09:03 | PM.PNORT ---
Subjective Subjective Date of Service: 05/28/21 Interval history: POD1 s/p RTKA with Dr. Ayon. Patient is resting comfortably in bed. No overnight events. Pain is well managed. Physical Exam Vital Signs: Vital Signs: Last Vital Signs Temp 97.3 F 05/28/21 07:26 Pulse 68 05/28/21 07:26 Resp 18 05/28/21 07:26 BP 127/58 L 05/28/21 07:26 Pulse Ox 92 05/28/21 07:26 Body Mass Index 37.0 Const: General: cooperative, healthy appearing and no acute distress Resp: Effort & Inspection: normal respiratory effort and able to speak in complete sentences Cardio: Rate: regular rate Peripheral pulses: Peripheral pulses 2+ throughout GI: Palpation (GI): Soft to palpation Skin: Lesions: no lesions Rashes: no rashes Extrem: Other: Right knee Aquacel is clean, dry, and intact. NVI. Procedures Date of Service Date of Service: 05/28/21 Progress Note: A&P Assessment and plan (1) Status post total knee replacement, right: Status: Acute Assessment and Plan: Continue pain mgmnt Begin Aspirin dvt ppx begin PT for RTKA Dispo planning-Pending PT eval, pain mgmnt Fall Risk Details Current Medications: Current Medications Acetaminophen (Acetaminophen 325 Mg Tablet) 650 mg PO Q6H PRN PRN Reason: Pain, Mild (Pain Scale 1-3) Last Admin: 05/28/21 03:41 Dose: 650 mg Documented by: Atorvastatin Calcium (Atorvastatin Calcium 40 Mg Tablet) 40 mg PO DAILY [facility] Last Admin: 05/28/21 08:49 Dose: 40 mg Documented by: Calcium Carbonate (Calcium Carbonate 500 Mg Tablet) 500 mg PO DAILY [facility] Last Admin: 05/28/21 08:48 Dose: 500 mg Documented by: Carvedilol (Carvedilol 12.5 Mg Tablet) 12.5 mg PO BID [facility]; Protocol Last Admin: 05/28/21 08:48 Dose: 12.5 mg Documented by: Celecoxib (Celecoxib 200 Mg Capsule) 200 mg PO BID [facility] Last Admin: 05/28/21 08:48 Dose: 200 mg Documented by: Cyanocobalamin (Cyanocobalamin (Vitamin B-12) 1,000 Mcg Tablet) 1,000 mcg PO DAILY [facility] Last Admin: 05/28/21 08:48 Dose: 1,000 mcg Documented by: Dextrose (Dextrose 50 % 25 Gm/50 Ml Vial) 25 gm IVPUSH Q15M PRN; Protocol PRN Reason: per Hypoglycemia Standing Ord. Docusate Sodium (Docusate Sodium 100 Mg Capsule) 100 mg PO BID [facility] Last Admin: 05/28/21 08:48 Dose: 100 mg Documented by: Famotidine (Famotidine 20 Mg Tablet) 40 mg PO BEDTIME [facility] Last Admin: 05/27/21 20:54 Dose: 40 mg Documented by: Fluticasone Propionate (Fluticasone Propionate Nasal 16 Gm [place]) 1 - 2 spray NOSTRIL-B DAILY PRN PRN Reason: Nasal Congestion Furosemide (Furosemide 20 Mg Tablet) 20 mg PO DAILY [facility]; Protocol Last Admin: 05/28/21 08:48 Dose: 20 mg Documented by: Glucose (Glucose Gel 15 Gm Gel..Gram.) 15 gm PO Q15M PRN; Protocol PRN Reason: per Hypoglycemia Standing Ord. Hydrochlorothiazide (Hydrochlorothiazide 50 Mg Tablet) 50 mg PO DAILY [facility] Last Admin: 05/28/21 08:48 Dose: 50 mg Documented by: Hydromorphone HCl (Hydromorphone Hcl 0.5 Mg/0.5 Ml Syringe) 0.25 mg IVPUSH Q4H PRN; Protocol PRN Reason: Pain, Severe (Pain Scale 7-10) Insulin Human Lispro (Insulin Lispro 100 Unit/Ml 3 Ml Vial) 0 unit SUBCUT QIDACHS [facility]; Protocol Last Admin: 05/28/21 07:54 Dose: Not Given Documented by: Losartan Potassium (Losartan Potassium 50 Mg Tablet) 100 mg PO DAILY [facility]; Protocol Last Admin: 05/28/21 08:49 Dose: 100 mg Documented by: Metformin HCl (Metformin Hcl 500 Mg Tablet) 250 mg PO BID [facility] Last Admin: 05/28/21 08:48 Dose: 250 mg Documented by: Oxycodone HCl (Oxycodone Hcl Immed Release 5 Mg Tablet) 5 mg PO Q4H PRN PRN Reason: Pain, Moderate (Pain Scale 4-6 Last Admin: 05/27/21 16:16 Dose: 5 mg Documented by: Oxycodone HCl (Oxycodone Hcl Er 10 Mg Tab.Er.12h) 10 mg PO BID [facility] Last Admin: 05/28/21 08:48 Dose: 10 mg Documented by: Sodium Chloride (0.9 % Sodium Chloride Flush 3 Ml Syringe) 3 ml IVFLUSH QSHIFT [facility] Last Admin: 05/28/21 08:48 Dose: 3 ml Documented by: Vitamin D (Cholecalciferol (Vitamin D3) 25 Mcg Tablet) 25 mcg PO DAILY [facility] Last Admin: 05/28/21 08:48 Dose: 25 mcg Documented by: Time Spent With Patient Time: Total time spent is greater than 50% in coordination of care (as documented) at patient's floor/unit and/or counseling patient: Time with patient: less than 15 minutes Quality Stroke Does the patient have a stroke diagnosis?: No VTE Prior VTE?: No VTE Risk Level:: Medical - moderate - high VTE Device Contraindication: N/A - Device Ordered VTE Drug Contraindication: N/A - Med Ordered
[2021-05-28] MEDS: Aspirin 325 MG TABLET PO ×2 (11:13→21:06)
[2021-05-28 11:32] LABS: Glucose, Whole Blood 150 mg/dL (60-115)
--- NOTE | 2021-05-28 13:00 | P.PNIM_ITS ---
Subjective Subjective Date of Service: 05/28/21 Interval History: htn, hx chf Review of Systems Denies any chest pain or shortness of breath or abdominal pain or fever chills still has right knee soraness slowly improvig Physical Exam Vital Signs: Vital Signs: Last Vital Signs Temp 98.4 F 05/28/21 11:20 Pulse 59 05/28/21 11:20 Resp 18 05/28/21 11:20 BP 147/60 H 05/28/21 11:20 Pulse Ox 94 05/28/21 11:20 Body Mass Index 37.0 Appearance: Alert.? Oriented X3.? not in distress.? Eyes: Pupils equal, round and reactive to light.? Sclera nonicteric.? ENT: Pharynx normal.? Moist mucous membranes. cvs: rrr, [id number] , no murmur res: clear to auscultation ,no rhonchii or wheezing abd: no rebound or guarding ,nt, bs present. ext right knee wrapped , mild soarness , no erythema neuro: axo3 , nonfocal. Objective Data Active Medications Acetaminophen (Acetaminophen 325 Mg Tablet) 650 mg PO Q6H PRN PRN Reason: Pain, Mild (Pain Scale 1-3) Last Admin: 05/28/21 11:13 Dose: 650 mg Documented by: ALEC Aspirin (Aspirin 325 Mg Tablet) 325 mg PO BID [facility] Last Admin: 05/28/21 11:13 Dose: 325 mg Documented by: ALEC Atorvastatin Calcium (Atorvastatin Calcium 40 Mg Tablet) 40 mg PO DAILY [facility] Last Admin: 05/28/21 08:49 Dose: 40 mg Documented by: ALEC Calcium Carbonate (Calcium Carbonate 500 Mg Tablet) 500 mg PO DAILY [facility] Last Admin: 05/28/21 08:48 Dose: 500 mg Documented by: ALEC Carvedilol (Carvedilol 12.5 Mg Tablet) 12.5 mg PO BID [facility]; Protocol Last Admin: 05/28/21 08:48 Dose: 12.5 mg Documented by: ALEC Celecoxib (Celecoxib 200 Mg Capsule) 200 mg PO BID [facility] Last Admin: 05/28/21 08:48 Dose: 200 mg Documented by: ALEC Cyanocobalamin (Cyanocobalamin (Vitamin B-12) 1,000 Mcg Tablet) 1,000 mcg PO DAILY [facility] Last Admin: 05/28/21 08:48 Dose: 1,000 mcg Documented by: ALEC Dextrose (Dextrose 50 % 25 Gm/50 Ml Vial) 25 gm IVPUSH Q15M PRN; Protocol PRN Reason: per Hypoglycemia Standing Ord. Docusate Sodium (Docusate Sodium 100 Mg Capsule) 100 mg PO BID [facility] Last Admin: 05/28/21 08:48 Dose: 100 mg Documented by: ALEC Famotidine (Famotidine 20 Mg Tablet) 40 mg PO BEDTIME [facility] Last Admin: 05/27/21 20:54 Dose: 40 mg Documented by: LEO Fluticasone Propionate (Fluticasone Propionate Nasal 16 Gm [place]) 1 - 2 spray NOSTRIL-B DAILY PRN PRN Reason: Nasal Congestion Furosemide (Furosemide 20 Mg Tablet) 20 mg PO DAILY [facility]; Protocol Last Admin: 05/28/21 08:48 Dose: 20 mg Documented by: ALEC Glucose (Glucose Gel 15 Gm Gel..Gram.) 15 gm PO Q15M PRN; Protocol PRN Reason: per Hypoglycemia Standing Ord. Hydrochlorothiazide (Hydrochlorothiazide 50 Mg Tablet) 50 mg PO DAILY [facility] Last Admin: 05/28/21 08:48 Dose: 50 mg Documented by: ALEC Hydromorphone HCl (Hydromorphone Hcl 0.5 Mg/0.5 Ml Syringe) 0.25 mg IVPUSH Q4H PRN; Protocol PRN Reason: Pain, Severe (Pain Scale 7-10) Insulin Human Lispro (Insulin Lispro 100 Unit/Ml 3 Ml Vial) 0 unit SUBCUT QID [facility]; Protocol Last Admin: 05/28/21 11:53 Dose: Not Given Documented by: ALEC Non-Admin Reason: No Insulin Coverage Losartan Potassium (Losartan Potassium 50 Mg Tablet) 100 mg PO DAILY [facility]; Protocol Last Admin: 05/28/21 08:49 Dose: 100 mg Documented by: ALEC Metformin HCl (Metformin Hcl 500 Mg Tablet) 250 mg PO BID [facility] Last Admin: 05/28/21 08:48 Dose: 250 mg Documented by: ALEC Oxycodone HCl (Oxycodone Hcl Immed Release 5 Mg Tablet) 5 mg PO Q4H PRN PRN Reason: Pain, Moderate (Pain Scale 4-6 Last Admin: 05/27/21 16:16 Dose: 5 mg Documented by: MARTI Oxycodone HCl (Oxycodone Hcl Er 10 Mg Tab.Er.12h) 10 mg PO BID [facility] Last Admin: 05/28/21 08:48 Dose: 10 mg Documented by: ALEC Sodium Chloride (0.9 % Sodium Chloride Flush 3 Ml Syringe) 3 ml IVFLUSH QSHIFT [facility] Last Admin: 05/28/21 08:48 Dose: 3 ml Documented by: ALEC Vitamin D (Cholecalciferol (Vitamin D3) 25 Mcg Tablet) 25 mcg PO DAILY [facility] Last Admin: 05/28/21 08:48 Dose: 25 mcg Documented by: ALEC Labs CBC & Chem 7: 05/28/21 05:46 05/28/21 05:46 Labs: Laboratory Results - last 24 hr 05/27/21 05/27/21 05/28/21 15:31 19:29 05:46 MCV 80.5 MCH 25.1 L MCHC 31.2 RDW 15.9 Plt Count 239 MPV 11.1 Immature Gran % (Auto) 0.5 H Neut % (Auto) 88.3 H Lymph % (Auto) 5.5 L [place] % (Auto) 5.6 Eos % (Auto) 0.0 Baso % (Auto) 0.1 Lymph # (Auto) 0.7 L [place] # (Auto) 0.7 Eos # (Auto) 0.0 Baso # (Auto) 0.0 Abs Immat Gran (auto) 0.06 H Absolute Neuts (auto) 10.7 H Absolute Nucleated RBC 0.000 Nucleated RBC % (auto) 0.0 Anion Gap Estim Creat Clear Calc Estimated GFR POC Glucose 172 H 183 H Fasting Glucose Calcium Magnesium 05/28/21 05/28/21 05/28/21 05:46 07:24 11:19 MCV MCH MCHC RDW Plt Count MPV Immature Gran % (Auto) Neut % (Auto) Lymph % (Auto) [place] % (Auto) Eos % (Auto) Baso % (Auto) Lymph # (Auto) [place] # (Auto) Eos # (Auto) Baso # (Auto) Abs Immat Gran (auto) Absolute Neuts (auto) Absolute Nucleated RBC Nucleated RBC % (auto) Anion Gap 14 Estim Creat Clear Calc 49.4 Estimated GFR 58 POC Glucose 127 H 150 H Fasting Glucose 126 H Calcium 9.8 Magnesium 1.8 Assessment and Plan (1) Hypertension: Status: Acute (2) Chronic diastolic heart failure: Status: Acute Assessment and Plan: 1. Knee OA: s/p tka day1. Pain management Bowel regimen Incentive spirometry Chest physio 2.Chronic diastolic heart failure:? euvolemic,Continue Lasix and losartan. 3.Diabetes:? Fingersticks acceptable: 110-150. Fingerstick with sliding seen coverage. 4.GERD (gastroesophageal reflux disease):? Continue famotidine. 5.Hyperlipidemia:? Continue statin. 6.Hypertension: Continue losartan, hydrochlorothiazide. 7.JOVANNI (obstructive sleep apnea):? Stable , off oxygen Did not tolerate CPAP.? DVT prophylaxis with SCD as per primary team Quality Stroke Does the patient have a stroke diagnosis?: No VTE Prior VTE?: No VTE Risk Level:: Medical - moderate - high VTE Device Contraindication: N/A - Device Ordered VTE Drug Contraindication: N/A - Med Ordered
--- NOTE | 2021-05-28 14:43 | MHC.CM.PN ---
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 PT REPORTS SHE LIVES ALONE AND HAS CLINICAL BIOCHEMICAL GENETICIST SERVICES DAILY. HER DAUGHTER IS HER CLINICAL BIOCHEMICAL GENETICIST SHE ALSO REPORTS SHE HAS A NURSE AND PHYSICAL THERAPIST THAT VISIT HER. SHE BELIEVES THEY ARE FROM [facility]. PT REPORTS SHE HAS A CANE, WALKER, WHEEL CHAIR, TUB BENCH AND GRAB BARS AT HOME. PT CONFIRMS HER PCP IS INOCENCIO BISHOP. PT SAYS SHE HAS A HCP NAMING HER DAUGHTER, EILEEN, HER AGENT. COPY REQUESTED. IMM DELIVERED CURRENT DC PLAN, HOME RESUME SERVICES DAUGHTER TO TRANSPORT
[2021-05-28 16:23] LABS: Glucose, Whole Blood 124 mg/dL (60-115)
[2021-05-28 20:26] LABS: Glucose, Whole Blood 130 mg/dL (60-115)
[2021-05-28] MEDS: Famotidine 20 MG TABLET 40 MG PO (21:06)
[2021-05-29] VITALS (9 sets, daily range): BP systolic 102–167; BP diastolic 50–78; PULSE 59–83; RESP 16–18; TEMP 36.2–37.2; O2SAT 92–98
[2021-05-29 06:10] LABS: MANUAL DIFF FLAG NO
[2021-05-29 06:38] LABS: Anion Gap 15 (12-20); Blood Urea Nitrogen 28 mg/dL (9-16); Calcium 9.9 mg/dL (8.4-10.2); Carbon Dioxide 29 mmol/L (22-29); Chloride 102 mmol/L (96-108); Estimated Glomerular Filt Rate 37; Glucose Fasting 113 mg/dL (60-99); Potassium 4.1 mmol/L (3.3-5.1); Sodium 142 mmol/L (135-145)
[2021-05-29 06:59] LABS: Basophils Percent Auto 0.3 % (0-2); Eosinophils Absolute Auto 0.1 X10*3/uL (0.0-0.4); Eosinophils Percent Auto 1.3 % (0-4); Hematocrit 29.1 % (37.0-47.0); Hemoglobin 9.1 g/dl (12.0-16.0); Imm Gran Abs Auto 0.06 X10*3/uL (0.00-0.03); Imm Gran Pct Auto 0.6 % (0.0-0.4); Lymphocytes Absolute Auto 1.5 X10*3/uL (1.2-4.9); Lymphocytes Percent Auto 13.4 % (20-40); Mean Corpuscular HGB Conc 31.3 g/dl (31.0-35.0); Mean Corpuscular Hemoglobin 25.4 pg (27.0-33.0); Mean Corpuscular Volume 81.3 fL (80.0-98.0); Monocytes Absolute Auto 0.7 X10*3/uL (0.1-1.2); Monocytes Percent Auto 6.9 % (2-11); Neutrophils Absolute Auto 8.4 x10*3/uL (2.0-8.3); Neutrophils Percent Auto 77.5 % (45-73); Platelet Count 216 X10*3/uL (160-400); Red Blood Count 3.58 X10*6/uL (4.20-5.50); Red Cell Distribution Width 16.3 % (11.0-16.0); White Blood Count 10.8 X10*3/uL (4.8-10.8)
[2021-05-29 07:22] LABS: Glucose, Whole Blood 110 mg/dL (60-115)
[2021-05-29] MEDS: hydroCHLOROthiazide 50 MG TABLET PO (08:01)
[2021-05-29] MEDS: Losartan Potassium 50 MG TABLET 100 MG PO (08:01)
[2021-05-29] MEDS: 0.9 % Sodium Chloride Flush 3 ML SYRINGE IVFLUSH (08:01)
[2021-05-29] MEDS: Celecoxib 200 MG CAPSULE PO (08:01)
[2021-05-29] MEDS: oxyCODONE HCl ER 10 MG TAB.ER.12H PO ×2 (08:01→20:47)
[2021-05-29] MEDS: Docusate Sodium 100 MG CAPSULE PO ×2 (08:01→20:47)
[2021-05-29] MEDS: Aspirin 325 MG TABLET PO ×2 (08:01→20:47)
[2021-05-29] MEDS: Furosemide 20 MG TABLET PO (08:01)
[2021-05-29] MEDS: Cholecalciferol (Vitamin D3) 25 MCG TABLET PO (08:02)
[2021-05-29] MEDS: Lactated Ringers 1,000 ML 80 ML IVCONT ×2 (08:02→20:47)
[2021-05-29] MEDS: Atorvastatin Calcium 40 MG TABLET PO (08:02)
[2021-05-29] MEDS: Cyanocobalamin (Vitamin B-12) 1,000 MCG TABLET 1000 MCG PO (08:02)
[2021-05-29] MEDS: carvediloL 12.5 MG TABLET PO ×2 (08:02→20:47)
--- NOTE | 2021-05-29 08:37 | MHC.CM.PN ---
Addendum entered by Nancy Rendon 05/29/21 09:16: [facility] UNABLE TO PROVIDE PT TOMORROW. REFERRAL SENT TO [facility] AFTER DISCUSSION WITH LIAISON. PT WILL DC HOME WITH [facility] FOR PHYSICAL THERAPY SERVICES ONLY WELL RESUMPTION OF HER DIRECTOR INVESTOR RELATIONS SERVICES. [facility] IS AWARE OF PENDING DC AND WILL COMPLETE A POST DC ASSESSMENT WITH PT WITHIN 48 HOURS. FAMILY WILL TRANSPORT Original Note: CM CONTACTED DALILA ([phone]) AT [facility] TO INFORM HER OF PTS PENDING DC AND CONFIRM HER HOME SERVICES. 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 DALILA REPORTS SHE DOES NOT SEE ANYTHING ABOUT PT HAVING THESE SERVICES, ONLY A DIRECTOR INVESTOR RELATIONS. DALILA REPORTS BECAUSE IT IS AN ORTHOPEDIC PT, THEY WOULD REQUEST IT BE SENT TO AN AGENCY. REFERRAL SENT TO [facility], CURRENTLY AWAITING RESPONSE WELL ASSURANCE THEY WILL BE ABLE TO SEE PT TOMORROW.
--- NOTE | 2021-05-29 09:16 | W.MHC.F2F ---
Service Date Service Date: 05/29/21 Encounter Date of encounter: 05/29/21 Reasons for Services Reason for physical therapy: home safety and mobility, therapeutic exercises, restore joint function, gait/transfer training, ADL training and energy conservation Reason for occupational therapy: home safety and mobility, therapeutic exercises, restore joint function, gait/transfer training, ADL training and energy conservation MD Overseeing Care: Soto Ayon Homebound: Leaving the home is medically contraindicated at this time without the asist of a device and/or another person due th the listed conditions above and below. Reason homebound: unsteady gait / fall risk, pain with ambulation, poor balance / fall risk and unable to drive Homebound supporting statement: Pt. is considered home bound due to recent surgery. Unable to drive, poor balance, poor gait mechanics. Certification: Based on the above findings, I certify that this patient is confined to the home and needs intermittent intermediate care, physical therapy and/or speech therapy, or continues to need occupational therapy. The patient is under my care, and I have initiated the establishment of the plan of care. The patient will be followed by a physician who will periodically review the plan of care.
[2021-05-29] MEDS: Acetaminophen 325 MG TABLET 650 MG PO (09:28)
[2021-05-29 11:30] LABS: Glucose, Whole Blood 148 mg/dL (60-115)
--- NOTE | 2021-05-29 14:06 | P.PNOP_ITS ---
Subjective Subjective Date of Service: 05/29/21 Interval history: Postop day 2 status post right total knee arthroplasty No overnight events She is doing well with physical therapy, no concerns. Physical Exam Vital Signs: Vital Signs: Last Vital Signs Temp 97.6 F 05/29/21 11:11 Pulse 59 05/29/21 11:11 Resp 17 05/29/21 11:11 BP 167/65 H 05/29/21 11:11 Pulse Ox 95 05/29/21 11:11 Body Mass Index 37.0 Const: General: cooperative, healthy appearing and no acute distress Resp: Effort & Inspection: normal respiratory effort and able to speak in complete sentences Cardio: Rate: regular rate Peripheral pulses: Peripheral pulses 2+ throughout GI: Palpation (GI): Soft to palpation Skin: General skin exam: no rashes or lesions noted Extrem: Other: incision clean dry and intact. [place] intact. No erythema or joint effusion. Calf supple nontender. Neurovascularly intact. Procedures Date of Service Date of Service: 05/29/21 Progress Note: A&P Assessment and plan (1) Status post total knee replacement, right: Status: Acute Assessment and Plan: * Continue pain mgmnt * cont Aspirin for dvt ppx * Cont PT for RT TKA * Dispo planning-Med clearance Fall Risk Details Current Medications: Current Medications Acetaminophen (Acetaminophen 325 Mg Tablet) 650 mg PO Q6H PRN PRN Reason: Pain, Mild (Pain Scale 1-3) Last Admin: 05/29/21 09:28 Dose: 650 mg Documented by: Aspirin (Aspirin 325 Mg Tablet) 325 mg PO BID [facility] Last Admin: 05/29/21 08:01 Dose: 325 mg Documented by: Atorvastatin Calcium (Atorvastatin Calcium 40 Mg Tablet) 40 mg PO DAILY [facility] Last Admin: 05/29/21 08:02 Dose: 40 mg Documented by: Calcium Carbonate (Calcium Carbonate 500 Mg Tablet) 500 mg PO DAILY [facility] Last Admin: 05/29/21 08:02 Dose: 500 mg Documented by: Carvedilol (Carvedilol 12.5 Mg Tablet) 12.5 mg PO BID [facility]; Protocol Last Admin: 05/29/21 08:02 Dose: 12.5 mg Documented by: Cyanocobalamin (Cyanocobalamin (Vitamin B-12) 1,000 Mcg Tablet) 1,000 mcg PO DAILY [facility] Last Admin: 05/29/21 08:02 Dose: 1,000 mcg Documented by: Dextrose (Dextrose 50 % 25 Gm/50 Ml Vial) 25 gm IVPUSH Q15M PRN; Protocol PRN Reason: per Hypoglycemia Standing Ord. Docusate Sodium (Docusate Sodium 100 Mg Capsule) 100 mg PO BID [facility] Last Admin: 05/29/21 08:01 Dose: 100 mg Documented by: Famotidine (Famotidine 20 Mg Tablet) 40 mg PO BEDTIME [facility] Last Admin: 05/28/21 21:06 Dose: 40 mg Documented by: Fluticasone Propionate (Fluticasone Propionate Nasal 16 Gm [place]) 1 - 2 spray NOSTRIL-B DAILY PRN PRN Reason: Nasal Congestion Glucose (Glucose Gel 15 Gm Gel..Gram.) 15 gm PO Q15M PRN; Protocol PRN Reason: per Hypoglycemia Standing Ord. Hydromorphone HCl (Hydromorphone Hcl 0.5 Mg/0.5 Ml Syringe) 0.25 mg IVPUSH Q4H PRN; Protocol PRN Reason: Pain, Severe (Pain Scale 7-10) Lactated Ringer's (Lr) 1,000 mls @ 80 mls/hr IVCONT .[id number] [facility] Last Admin: 05/29/21 08:02 Dose: 80 mls/hr Documented by: Insulin Human Lispro (Insulin Lispro 100 Unit/Ml 3 Ml Vial) 0 unit SUBCUT QIDACHS [facility]; Protocol Last Admin: 05/29/21 11:42 Dose: Not Given Documented by: Metformin HCl (Metformin Hcl 500 Mg Tablet) 250 mg PO BID [facility] Last Admin: 05/28/21 21:39 Dose: Not Given Documented by: Oxycodone HCl (Oxycodone Hcl Immed Release 5 Mg Tablet) 5 mg PO Q4H PRN PRN Reason: Pain, Moderate (Pain Scale 4-6 Last Admin: 05/27/21 16:16 Dose: 5 mg Documented by: Oxycodone HCl (Oxycodone Hcl Er 10 Mg Tab.Er.12h) 10 mg PO BID [facility] Last Admin: 05/29/21 08:01 Dose: 10 mg Documented by: Sodium Chloride (0.9 % Sodium Chloride Flush 3 Ml Syringe) 3 ml IVFLUSH QSHIFT [facility] Last Admin: 05/29/21 08:01 Dose: 3 ml Documented by: Vitamin D (Cholecalciferol (Vitamin D3) 25 Mcg Tablet) 25 mcg PO DAILY [facility] Last Admin: 05/29/21 08:02 Dose: 25 mcg Documented by: Time Spent With Patient Time: Total time spent is greater than 50% in coordination of care (as mariza kaiser) at patient's floor/unit and/or counseling patient: Time with patient: less than 15 minutes Quality Stroke Does the patient have a stroke diagnosis?: No VTE Prior VTE?: No VTE Risk Level:: Medical - moderate - high VTE Device Contraindication: N/A - Device Ordered VTE Drug Contraindication: N/A - Med Ordered
--- NOTE | 2021-05-29 14:30 | HO.PM.IMPN ---
Subjective Subjective Date of Service: 05/29/21 Interval History: maria r . Review of Systems patient denies any chest pain or shortness of breath or abdominal pain or nausea or vomiting. Physical Exam Vital Signs: Vital Signs: Last Vital Signs Temp 97.6 F 05/29/21 11:11 Pulse 59 05/29/21 11:11 Resp 17 05/29/21 11:11 BP 167/65 H 05/29/21 11:11 Pulse Ox 95 05/29/21 11:11 Body Mass Index 37.0 Appearance: Alert.? Oriented X3.? not in distress.? Eyes: Pupils equal, round and reactive to light.? Sclera nonicteric.? ENT: Pharynx normal.? Moist mucous membranes. cvs: rrr, [id number] , no murmur res: clear to auscultation ,no rhonchii or wheezing abd: no rebound or guarding ,nt, bs present. ext right knee wrapped , mild soarness , no erythema neuro: axo3 , nonfocal. Objective Data Active Medications Acetaminophen (Acetaminophen 325 Mg Tablet) 650 mg PO Q6H PRN PRN Reason: Pain, Mild (Pain Scale 1-3) Last Admin: 05/29/21 09:28 Dose: 650 mg Documented by: ALEC Aspirin (Aspirin 325 Mg Tablet) 325 mg PO BID [facility] Last Admin: 05/29/21 08:01 Dose: 325 mg Documented by: ALEC Atorvastatin Calcium (Atorvastatin Calcium 40 Mg Tablet) 40 mg PO DAILY [facility] Last Admin: 05/29/21 08:02 Dose: 40 mg Documented by: ALEC Calcium Carbonate (Calcium Carbonate 500 Mg Tablet) 500 mg PO DAILY [facility] Last Admin: 05/29/21 08:02 Dose: 500 mg Documented by: ALEC Carvedilol (Carvedilol 12.5 Mg Tablet) 12.5 mg PO BID [facility]; Protocol Last Admin: 05/29/21 08:02 Dose: 12.5 mg Documented by: ALEC Cyanocobalamin (Cyanocobalamin (Vitamin B-12) 1,000 Mcg Tablet) 1,000 mcg PO DAILY [facility] Last Admin: 05/29/21 08:02 Dose: 1,000 mcg Documented by: ALEC Dextrose (Dextrose 50 % 25 Gm/50 Ml Vial) 25 gm IVPUSH Q15M PRN; Protocol PRN Reason: per Hypoglycemia Standing Ord. Docusate Sodium (Docusate Sodium 100 Mg Capsule) 100 mg PO BID [facility] Last Admin: 05/29/21 08:01 Dose: 100 mg Documented by: ALEC Famotidine (Famotidine 20 Mg Tablet) 40 mg PO BEDTIME [facility] Last Admin: 05/28/21 21:06 Dose: 40 mg Documented by: LEO Fluticasone Propionate (Fluticasone Propionate Nasal 16 Gm [place]) 1 - 2 spray NOSTRIL-B DAILY PRN PRN Reason: Nasal Congestion Glucose (Glucose Gel 15 Gm Gel..Gram.) 15 gm PO Q15M PRN; Protocol PRN Reason: per Hypoglycemia Standing Ord. Hydromorphone HCl (Hydromorphone Hcl 0.5 Mg/0.5 Ml Syringe) 0.25 mg IVPUSH Q4H PRN; Protocol PRN Reason: Pain, Severe (Pain Scale 7-10) Lactated Ringer's (Lr) 1,000 mls @ 80 mls/hr IVCONT .[id number] [facility] Last Admin: 05/29/21 08:02 Dose: 80 mls/hr Documented by: ALEC Insulin Human Lispro (Insulin Lispro 100 Unit/Ml 3 Ml Vial) 0 unit SUBCUT QIDACHS [facility]; Protocol Last Admin: 05/29/21 11:42 Dose: Not Given Documented by: ALEC Non-Admin Reason: No Insulin Coverage Metformin HCl (Metformin Hcl 500 Mg Tablet) 250 mg PO BID [facility] Last Admin: 05/28/21 21:39 Dose: Not Given Documented by: LEO Non-Admin Reason: Physician Held Med Oxycodone HCl (Oxycodone Hcl Immed Release 5 Mg Tablet) 5 mg PO Q4H PRN PRN Reason: Pain, Moderate (Pain Scale 4-6 Last Admin: 05/27/21 16:16 Dose: 5 mg Documented by: MARTI Oxycodone HCl (Oxycodone Hcl Er 10 Mg Tab.Er.12h) 10 mg PO BID [facility] Last Admin: 05/29/21 08:01 Dose: 10 mg Documented by: ALEC Sodium Chloride (0.9 % Sodium Chloride Flush 3 Ml Syringe) 3 ml IVFLUSH QSHIFT [facility] Last Admin: 05/29/21 08:01 Dose: 3 ml Documented by: ALEC Vitamin D (Cholecalciferol (Vitamin D3) 25 Mcg Tablet) 25 mcg PO DAILY [facility] Last Admin: 05/29/21 08:02 Dose: 25 mcg Documented by: ALEC Labs CBC & Chem 7: 05/29/21 05:53 05/29/21 05:53 Labs: Laboratory Results - last 24 hr 05/28/21 05/28/21 05/29/21 16:19 20:23 05:53 MCV 81.3 MCH 25.4 L MCHC 31.3 RDW 16.3 H Plt Count 216 MPV 12.0 Immature Gran % (Auto) 0.6 H Neut % (Auto) 77.5 H Lymph % (Auto) 13.4 L [place] % (Auto) 6.9 Eos % (Auto) 1.3 Baso % (Auto) 0.3 Lymph # (Auto) 1.5 [place] # (Auto) 0.7 Eos # (Auto) 0.1 Baso # (Auto) 0.0 Abs Immat Gran (auto) 0.06 H Absolute Neuts (auto) 8.4 H Absolute Nucleated RBC 0.000 Nucleated RBC % (auto) 0.0 Anion Gap Estim Creat Clear Calc Estimated GFR POC Glucose 124 H 130 H Fasting Glucose Calcium 05/29/21 05/29/21 05/29/21 05:53 07:07 11:13 MCV MCH MCHC RDW Plt Count MPV Immature Gran % (Auto) Neut % (Auto) Lymph % (Auto) [place] % (Auto) Eos % (Auto) Baso % (Auto) Lymph # (Auto) [place] # (Auto) Eos # (Auto) Baso # (Auto) Abs Immat Gran (auto) Absolute Neuts (auto) Absolute Nucleated RBC Nucleated RBC % (auto) Anion Gap 15 Estim Creat Clear Calc 33.0 Estimated GFR 37 POC Glucose 110 148 H Fasting Glucose 113 H Calcium 9.9 Assessment and Plan (1) Hypertension: Status: Acute (2) MARIA R (acute kidney injury): Status: Acute Assessment and Plan: 1. Knee OA: s/p tka day2 . Pain management Bowel regimen Incentive spirometry Chest physio 2.Chronic diastolic heart failure:? euvolemic,Continue Lasix and losartan. 3.Diabetes:? Fingersticks acceptable: 110-140. Fingerstick with sliding seen coverage. 4.GERD (gastroesophageal reflux disease):? Continue famotidine. 5.Hyperlipidemia:? Continue statin. 6.Hypertension: Continue losartan, hydrochlorothiazide. 7. Maria R : cr 1.4 range received celecoxib , RAJAT, lasix hold above meds added gentle hydration and also advised to hydration. 7.JOVANNI (obstructive sleep apnea):? Stable , off oxygen Did not tolerate CPAP.? DVT prophylaxis with SCD as per primary team Quality Stroke Does the patient have a stroke diagnosis?: No VTE Prior VTE?: No VTE Risk Level:: Medical - moderate - high VTE Device Contraindication: N/A - Device Ordered VTE Drug Contraindication: N/A - Med Ordered
[2021-05-29 16:36] LABS: Glucose, Whole Blood 150 mg/dL (60-115)
[2021-05-29 20:39] LABS: Glucose, Whole Blood 136 mg/dL (60-115)
[2021-05-29] MEDS: Famotidine 20 MG TABLET 40 MG PO (20:47)
[2021-05-30 04:00] VITALS: BP 142/60; PULSE 56; RESP 17; TEMP 36.4; O2SAT 97
[2021-05-30 06:19] LABS: Imm Gran Abs Auto 0.04 X10*3/uL (0.00-0.03); MANUAL DIFF FLAG SCAN; PLT CLUMP 1; SCAN SMEAR FLAG 1
[2021-05-30 06:21] LABS: Basophils Percent Auto 0.4 % (0-2); Eosinophils Absolute Auto 0.4 X10*3/uL (0.0-0.4); Eosinophils Percent Auto 4.2 % (0-4); Hematocrit 29.3 % (37.0-47.0); Hemoglobin 9.4 g/dl (12.0-16.0); Imm Gran Pct Auto 0.4 % (0.0-0.4); Lymphocytes Absolute Auto 1.6 X10*3/uL (1.2-4.9); Lymphocytes Percent Auto 16.8 % (20-40); Mean Corpuscular HGB Conc 32.1 g/dl (31.0-35.0); Mean Corpuscular Hemoglobin 25.4 pg (27.0-33.0); Mean Corpuscular Volume 79.2 fL (80.0-98.0); Mean Platelet Volume 12.2 fL (9.4-12.3); Monocytes Percent Auto 10.6 % (2-11); Neutrophils Absolute Auto 6.4 x10*3/uL (2.0-8.3); Neutrophils Percent Auto 67.6 % (45-73); White Blood Count 9.4 X10*3/uL (4.8-10.8)
[2021-05-30 06:35] LABS: PLT ABN DIST 1
[2021-05-30 07:05] LABS: Anion Gap 14 (12-20); Blood Urea Nitrogen 22 mg/dL (9-16); Calcium 9.3 mg/dL (8.4-10.2); Carbon Dioxide 29 mmol/L (22-29); Chloride 99 mmol/L (96-108); Estimated Glomerular Filt Rate 53; Glucose Fasting 122 mg/dL (60-99); Potassium 3.5 mmol/L (3.3-5.1); Sodium 138 mmol/L (135-145)
[2021-05-30 07:49] VITALS: BP 140/65; PULSE 66; RESP 18; TEMP 36.2; O2SAT 93
[2021-05-30 08:07] VITALS: BP 140/65; PULSE 66
[2021-05-30] MEDS: Aspirin 325 MG TABLET PO (08:07)
[2021-05-30] MEDS: carvediloL 12.5 MG TABLET PO (08:07)
[2021-05-30] MEDS: Cholecalciferol (Vitamin D3) 25 MCG TABLET PO (08:07)
[2021-05-30] MEDS: Cyanocobalamin (Vitamin B-12) 1,000 MCG TABLET 1000 MCG PO (08:07)
[2021-05-30] MEDS: oxyCODONE HCl ER 10 MG TAB.ER.12H PO (08:07)
[2021-05-30] MEDS: Atorvastatin Calcium 40 MG TABLET PO (08:07)
[2021-05-30] MEDS: Docusate Sodium 100 MG CAPSULE PO (08:07)
[2021-05-30 08:32] LABS: Glucose, Whole Blood 139 mg/dL (60-115)
[2021-05-30 09:01] LABS: SLIDE REVIEW VERIFIED
--- NOTE | 2021-05-30 10:05 | PM.DS ---
DS: Providers Provider Date of Service: 05/30/21 Date of admission: 05/27/21 06:25 Primary care physician: Surjit Vo MD Consults: 05/27/21 11:35 Consult to Hospitalist Routine Consulting Provider: Hospitalist Reason For Exam: routine medical management DS: Diagnosis Discharge Diagnosis (1) Status post total knee replacement, right: Status: Acute DS: Summary Hospital Course Hospital Course: The patient underwent a successful Right total knee arthroplasty, was transferred to PACU and then to the floor to recover. During their stay, their vitals were stable, afebrile at 96.9 . Labs were unremarkable, H/H 9.4/29.3 . POD 1 she was started on ASA for DVT ppx, they also received services twice a day. Prior to discharge, their dressing was change, incision clean dry and intact, new Aquacel dressing applied and the plan was to be discharged home with vna svs. Time Spent with Patient Time attestation: Total time spent providing and/or coordinating discharge services: Discharge coordination time: Less than 30 minutes Quality: Stroke Does the patient have a stroke diagnosis?: No Physical Exam Vital Signs: Vital Signs: Last Vital Signs Temp 97.2 F 05/30/21 07:49 Pulse 66 05/30/21 08:07 Resp 18 05/30/21 07:49 BP 140/65 H 05/30/21 08:07 Pulse Ox 93 05/30/21 07:49 Body Mass Index 37.0 Const: General: cooperative, healthy appearing and no acute distress Resp: Effort & Inspection: normal respiratory effort and able to speak in complete sentences Cardio: Rate: regular rate Peripheral pulses: Peripheral pulses 2+ throughout GI: Palpation (GI): Soft to palpation Skin: General skin exam: no rashes or lesions noted Extrem: Other: incision clean dry and intact. [place] intact. No erythema or joint effusion. Calf supple nontender. Neurovascularly intact. DS: Data Data Completed and Pending Completed studies during hospitalization [Text1]: Pending at discharge 05/27/21 09:15 Surgical [PTH] Routine Labs on day of discharge: Laboratory Results - last 24 hr 05/29/21 05/29/21 05/29/21 11:13 16:32 20:31 WBC RBC Hgb Hct MCV MCH MCHC RDW Plt Count MPV Immature Gran % (Auto) Neut % (Auto) Lymph % (Auto) [place] % (Auto) Eos % (Auto) Baso % (Auto) Lymph # (Auto) [place] # (Auto) Eos # (Auto) Baso # (Auto) Abs Immat Gran (auto) Absolute Neuts (auto) Absolute Nucleated RBC Nucleated RBC % (auto) Smear Tech's Comments Sodium Potassium Chloride Carbon Dioxide Anion Gap BUN Creatinine Estim Creat Clear Calc Estimated GFR POC Glucose 148 H 150 H 136 H Fasting Glucose Calcium 05/30/21 05/30/21 05/30/21 06:05 06:05 07:07 WBC 9.4 Cancelled RBC 3.70 L Cancelled Hgb 9.4 L Cancelled Hct 29.3 L Cancelled MCV 79.2 L Cancelled MCH 25.4 L Cancelled MCHC 32.1 Cancelled RDW 16.0 Cancelled Plt Count TNP Cancelled MPV 12.2 Cancelled Immature Gran % (Auto) 0.4 Cancelled Neut % (Auto) 67.6 Cancelled Lymph % (Auto) 16.8 L Cancelled [place] % (Auto) 10.6 Cancelled Eos % (Auto) 4.2 H Cancelled Baso % (Auto) 0.4 Cancelled Lymph # (Auto) 1.6 Cancelled [place] # (Auto) 1.0 Cancelled Eos # (Auto) 0.4 Cancelled Baso # (Auto) 0.0 Cancelled Abs Immat Gran (auto) 0.04 H Cancelled Absolute Neuts (auto) 6.4 Cancelled Absolute Nucleated RBC 0.000 Cancelled Nucleated RBC % (auto) 0.0 Cancelled Smear Tech's Comments VERIFIED Sodium 138 Potassium 3.5 Chloride 99 Carbon Dioxide 29 Anion Gap 14 BUN 22 H Creatinine 1.02 Estim Creat Clear Calc 45.0 Estimated GFR 53 POC Glucose Fasting Glucose 122 H Calcium 9.3 D 05/30/21 07:51 WBC RBC Hgb Hct MCV MCH MCHC RDW Plt Count MPV Immature Gran % (Auto) Neut % (Auto) Lymph % (Auto) [place] % (Auto) Eos % (Auto) Baso % (Auto) Lymph # (Auto) [place] # (Auto) Eos # (Auto) Baso # (Auto) Abs Immat Gran (auto) Absolute Neuts (auto) Absolute Nucleated RBC Nucleated RBC % (auto) Smear Tech's Comments Sodium Potassium Chloride Carbon Dioxide Anion Gap BUN Creatinine Estim Creat Clear Calc Estimated GFR POC Glucose 139 H Fasting Glucose Calcium Discharge Plan Discharge Patient Disposition: Home Health Service Discharge Diagnosis: RT TKa Referrals: [facility] [Outside] - 1 Day (HOME PHYSICAL THERAPY WILL START Tuesday05/31/21) Romaine Romero PA-C [Physician Nursing Consultant] - 2 Weeks (06/11/21 11:15 [facility] Romaine Romero PA-C) Discharge Medications: New aspirin 325 mg Tablet 325 mg PO BID 42 Days Qty: 84 RF: 0 acetaminophen 325 mg Tablet 650 mg PO Q6H PRN (Reason: Pain, Mild (Pain Scale 1-3)) 30 Days Qty: 240 RF: 0 Continued (DANAE) thelma Garica See Rx Instructions .ROUTE .MEDSUPPLY Qty: 1 RF: 0 atorvastatin 40 mg tablet 40 mg PO DAILY 90 Days Qty: 90 RF: 0 carvedilol 12.5 mg tablet 12.5 mg PO BID 90 Days Qty: 180 RF: 0 chlorthalidone 50 mg tablet 50 mg PO QAM Qty: 90 RF: 0 metformin 500 mg tablet 0.5 tab PO BID RF: 0 calcium carbonate 600 mg calcium (1,500 mg) tablet 1 tab PO QAM RF: 0 fluticasone propionate 50 mcg/actuation spray,suspension 1 - 2 spray intranasal DAILY PRN (Reason: Nasal Congestion) RF: 0 cholecalciferol (vitamin D3) 25 mcg (1,000 unit) tablet 1 tab PO QAM RF: 0 sennosides [Senna Laxative] 8.6 mg tablet 1 tab PO DAILY PRN (Reason: Constipation) RF: 0 cyanocobalamin (vitamin B-12) 1,000 mcg tablet 1,000 mcg PO DAILY RF: 0 oxybutynin chloride 5 mg tablet 5 mg PO BID RF: 0 ranitidine HCl 300 mg tablet 300 mg PO BEDTIME RF: 0 Held losartan 100 mg tablet 100 mg PO DAILY 90 Days Qty: 90 RF: 0 Hold Instructions: Resume on 06/01/21. Discontinued aspirin 81 mg tablet,delayed release (DR/EC) 81 mg PO DAILY 90 Days Qty: 90 RF: 0 No Action oxycodone 5 mg tablet 5 mg PO Q4H PRN (Reason: Pain, Moderate (Pain Scale 4-6) 7 Days Qty: 42 RF: 0 amlodipine 10 mg tablet 20 mg PO DAILY Qty: 90 RF: 3 furosemide 20 mg tablet 20 mg PO QAM 90 Days Qty: 90 RF: 1 Hold Instructions: Resume on 06/01/21. Discharge Orders: Discharge Order (Routine); Ordered 05/30/21 Ordered By: Romaine Romero Diet: regular diet Activity on Discharge: Use cane or walker Stand Alone Forms: Patient Portal Discharge page Other Ambulatory Orders: Basic Metabolic Panel Fasting (Routine) Timeframe: 3 Days Facility: [facility] - Location: Laboratory Ordered By: Star Wilkinson Care Plan Goals: Restore function of joint. Patient had mild MARIA R: Which responded well to p.o. hydration and holding diuretic and losartan. Seems to be improving. Patient was encouraged for p.o. hydration, repeat BMP outpatient with PCP and further management and use of Lasix and losartan out patiently after repeating BMP. Health Concerns: none Plan of Treatment: Physical Therapy Pain management DVT prophylaxis Assessment: Physical Therapy for Total knee arthroplasty: gait training, ROM 0-12, quad strength Limit stair climbing No showering, no tub bath-keep dressing clean, dry and intact No driving x6 weeks Continue Aspirin twice a day x 4 weeks Follow up with [facility] in 2 weeks Discharge Date/Time: 05/30/21 12:53
--- NOTE | 2021-05-30 10:35 | MHC.CM.PN ---
WALDEMAR CONTACTED PT'S DTR EILEEN AT 10:20AM [phone] D/T HER CALLING WELL TO ARRANGE RIDE FOR PT, DTR REPORTED PT'S LAST NIGHT AND SHE IS WAITING FOR PT'S SON TO COME SO THEY CAN COME TO THE HOSPITAL TOGETHER AND GIVE PT NEWS, CM CONTACTED CARE TEAM AND DISCUSSED CASE, IF REQUESTED BY FAMILY THEY WILL SEE PT HOWEVER REFERRALS ARE TAKING MONTHS FOR COUNSELING, CM WILL LEAVE MESSAGE FOR PT'S INSURANCE LIAISON IF PT/FAMILY REQUESTS. D/C PLAN: HOME W/[facility] FOR GROUP HOME, FAMILY FOR TRANSPORT
--- NOTE | 2021-05-30 11:04 | HO.PM.IMPN ---
Subjective Subjective Date of Service: 05/30/21 Interval History: MARIA R Review of Systems Patient denies any chest pain or shortness of breath or abdominal pain or fever chills or cough or phlegm. Physical Exam Vital Signs: Vital Signs: Last Vital Signs Temp 97.2 F 05/30/21 07:49 Pulse 66 05/30/21 08:07 Resp 18 05/30/21 07:49 BP 140/65 H 05/30/21 08:07 Pulse Ox 93 05/30/21 07:49 Body Mass Index 37.0 Appearance: Alert.? Oriented X3.? not in distress.? Eyes: Pupils equal, round and reactive to light.? Sclera nonicteric.? ENT: Pharynx normal.? Moist mucous membranes. cvs: rrr, [id number] , no murmur res: clear to auscultation ,no rhonchii or wheezing abd: no rebound or guarding ,nt, bs present. ext right knee wrapped , seems soarness seems to be improved , no erythema neuro: axo3 , nonfocal. Objective Data Active Medications Acetaminophen (Acetaminophen 325 Mg Tablet) 650 mg PO Q6H PRN PRN Reason: Pain, Mild (Pain Scale 1-3) Last Admin: 05/29/21 09:28 Dose: 650 mg Documented by: ALEC Aspirin (Aspirin 325 Mg Tablet) 325 mg PO BID [facility] Last Admin: 05/30/21 08:07 Dose: 325 mg Documented by: COTEMA Atorvastatin Calcium (Atorvastatin Calcium 40 Mg Tablet) 40 mg PO DAILY [facility] Last Admin: 05/30/21 08:07 Dose: 40 mg Documented by: COTEMA Calcium Carbonate (Calcium Carbonate 500 Mg Tablet) 500 mg PO DAILY [facility] Last Admin: 05/30/21 08:07 Dose: 500 mg Documented by: COTEMA Carvedilol (Carvedilol 12.5 Mg Tablet) 12.5 mg PO BID [facility]; Protocol Last Admin: 05/30/21 08:07 Dose: 12.5 mg Documented by: [email or web address] Cyanocobalamin (Cyanocobalamin (Vitamin B-12) 1,000 Mcg Tablet) 1,000 mcg PO DAILY [facility] Last Admin: 05/30/21 08:07 Dose: 1,000 mcg Documented by: COTEMA Dextrose (Dextrose 50 % 25 Gm/50 Ml Vial) 25 gm IVPUSH Q15M PRN; Protocol PRN Reason: per Hypoglycemia Standing Ord. Docusate Sodium (Docusate Sodium 100 Mg Capsule) 100 mg PO BID [facility] Last Admin: 05/30/21 08:07 Dose: 100 mg Documented by: SURESH Famotidine (Famotidine 20 Mg Tablet) 40 mg PO BEDTIME [facility] Last Admin: 05/29/21 20:47 Dose: 40 mg Documented by: IFTIKHAR Fluticasone Propionate (Fluticasone Propionate Nasal 16 Gm [place]) 1 - 2 spray NOSTRIL-B DAILY PRN PRN Reason: Nasal Congestion Glucose (Glucose Gel 15 Gm Gel..Gram.) 15 gm PO Q15M PRN; Protocol PRN Reason: per Hypoglycemia Standing Ord. Hydromorphone HCl (Hydromorphone Hcl 0.5 Mg/0.5 Ml Syringe) 0.25 mg IVPUSH Q4H PRN; Protocol PRN Reason: Pain, Severe (Pain Scale 7-10) Lactated Ringer's (Lr) 1,000 mls @ 80 mls/hr IVCONT .[id number] [facility] Last Admin: 05/30/21 07:28 Dose: Not Given Documented by: SURESH Non-Admin Reason: IV Running Insulin Human Lispro (Insulin Lispro 100 Unit/Ml 3 Ml Vial) 0 unit SUBCUT QIDACHS [facility]; Protocol Last Admin: 05/30/21 07:52 Dose: Not Given Documented by: SURESH Non-Admin Reason: No Insulin Coverage Metformin HCl (Metformin Hcl 500 Mg Tablet) 250 mg PO BID [facility] Last Admin: 05/28/21 21:39 Dose: Not Given Documented by: LEO Non-Admin Reason: Physician Held Med Oxycodone HCl (Oxycodone Hcl Immed Release 5 Mg Tablet) 5 mg PO Q4H PRN PRN Reason: Pain, Moderate (Pain Scale 4-6 Last Admin: 05/27/21 16:16 Dose: 5 mg Documented by: MARTI Oxycodone HCl (Oxycodone Hcl Er 10 Mg Tab.Er.12h) 10 mg PO BID [facility] Last Admin: 05/30/21 08:07 Dose: 10 mg Documented by: SURESH Sodium Chloride (0.9 % Sodium Chloride Flush 3 Ml Syringe) 3 ml IVFLUSH QSHIFT [facility] Last Admin: 05/30/21 07:22 Dose: Not Given Documented by: SURESH Non-Admin Reason: IV Running Vitamin D (Cholecalciferol (Vitamin D3) 25 Mcg Tablet) 25 mcg PO DAILY [facility] Last Admin: 05/30/21 08:07 Dose: 25 mcg Documented by: SURESH Labs CBC & Chem 7: 05/30/21 06:05 05/30/21 06:05 Labs: Laboratory Results - last 24 hr 05/29/21 05/29/21 05/29/21 11:13 16:32 20:31 MCV MCH MCHC RDW Plt Count MPV Immature Gran % (Auto) Neut % (Auto) Lymph % (Auto) [place] % (Auto) Eos % (Auto) Baso % (Auto) Lymph # (Auto) [place] # (Auto) Eos # (Auto) Baso # (Auto) Abs Immat Gran (auto) Absolute Neuts (auto) Absolute Nucleated RBC Nucleated RBC % (auto) Smear Tech's Comments Anion Gap Estim Creat Clear Calc Estimated GFR POC Glucose 148 H 150 H 136 H Fasting Glucose Calcium 05/30/21 05/30/21 05/30/21 06:05 06:05 07:07 MCV 79.2 L Cancelled MCH 25.4 L Cancelled MCHC 32.1 Cancelled RDW 16.0 Cancelled Plt Count TNP Cancelled MPV 12.2 Cancelled Immature Gran % (Auto) 0.4 Cancelled Neut % (Auto) 67.6 Cancelled Lymph % (Auto) 16.8 L Cancelled [place] % (Auto) 10.6 Cancelled Eos % (Auto) 4.2 H Cancelled Baso % (Auto) 0.4 Cancelled Lymph # (Auto) 1.6 Cancelled [place] # (Auto) 1.0 Cancelled Eos # (Auto) 0.4 Cancelled Baso # (Auto) 0.0 Cancelled Abs Immat Gran (auto) 0.04 H Cancelled Absolute Neuts (auto) 6.4 Cancelled Absolute Nucleated RBC 0.000 Cancelled Nucleated RBC % (auto) 0.0 Cancelled Smear Tech's Comments VERIFIED Anion Gap 14 Estim Creat Clear Calc 45.0 Estimated GFR 53 POC Glucose Fasting Glucose 122 H Calcium 9.3 D 05/30/21 07:51 MCV MCH MCHC RDW Plt Count MPV Immature Gran % (Auto) Neut % (Auto) Lymph % (Auto) [place] % (Auto) Eos % (Auto) Baso % (Auto) Lymph # (Auto) [place] # (Auto) Eos # (Auto) Baso # (Auto) Abs Immat Gran (auto) Absolute Neuts (auto) Absolute Nucleated RBC Nucleated RBC % (auto) Smear Tech's Comments Anion Gap Estim Creat Clear Calc Estimated GFR POC Glucose 139 H Fasting Glucose Calcium Assessment and Plan (1) MARIA R (acute kidney injury): Status: Acute Assessment and Plan: 1. Knee OA: s/p tka day3 . Pain management Bowel regimen Incentive spirometry Chest physio 2.Chronic diastolic heart failure:? euvolemic,Continue Lasix and losartan. 3.Diabetes:? continue home regimen 4.GERD (gastroesophageal reflux disease):? Continue famotidine. 5.Hyperlipidemia:? Continue statin. 6.Hypertension: Continue hydrochlorothiazide. 7. Maria R : Improving Encouraged for hydration Please check renal function in 2 days with PCP outpatient and start losartan and Lasix outpatient. 8.JOVANNI (obstructive sleep apnea):? Stable , off oxygen Did not tolerate CPAP.? DVT prophylaxis with SCD as per primary team-above management discussed with the primary team. Will sign off, please call us for any questions. Quality Stroke Does the patient have a stroke diagnosis?: No VTE Prior VTE?: No VTE Risk Level:: Medical - moderate - high VTE Device Contraindication: N/A - Device Ordered VTE Drug Contraindication: N/A - Med Ordered
[2021-05-30 11:11] VITALS: BP 157/67; PULSE 60; RESP 20; TEMP 36.1; O2SAT 90
[2021-05-30] MEDS: Lactated Ringers 1,000 ML 80 ML IVCONT (11:14)
[2021-05-30 11:31] LABS: Glucose, Whole Blood 128 mg/dL (60-115)
== END 2021-05-30 12:53 | disposition home health service (06) | DRG 470 ==
LOC: HO.SSSA 06:27 → HO.S3 10:32
PROVIDERS: Internal Medicine; Nurse Practitioner; Nurse Practitioner Family; Physician Assistant; Admitting Provider Orthopaedic Surgery; PCP Internal Medicine; Visit Provider Orthopaedic Surgery
PROC: 0SRC0J9 Replacement of Right Knee Joint with Synthetic Substitute, Cemented, Open Approach (ICD-10-PCS; CPT 27447; principal; 2021-05-27 07:30)
DX: M17.11 Unilateral primary osteoarthritis, right knee (principal); I50.32 Chronic diastolic (congestive) heart failure; N17.9 Acute kidney failure, unspecified; I11.0 Hypertensive heart disease with heart failure; E11.9 Type 2 diabetes mellitus without complications; K21.9 Gastro-esophageal reflux disease without esophagitis; E78.5 Hyperlipidemia, unspecified; G47.33 Obstructive sleep apnea (adult) (pediatric); Z20.822 Contact with and (suspected) exposure to COVID-19; Z79.51 Long term (current) use of inhaled steroids; Z79.84 Long term (current) use of oral hypoglycemic drugs; Z79.899 Other long term (current) drug therapy
CPT/HCPCS: 36415; 73560; 80048; 82947; 83036; 83735; 85025; 85027; 86850; 86900; 86901; 87635; 87640; 87641; 88305; 88311; 93005; 97110; 97116; 97161; 97530; C1713; C1776; J0690; J1100; J2250; J2405

== ENCOUNTER → 2021-06-11 10:48 | Outpatient (BNVA) | payer MEDICARE, SELFPAY | PROVIDERS: PCP Internal Medicine; Visit Provider Physician Assistant | DX: Z47.1 Aftercare following joint replacement surgery (principal); Z96.651 Presence of right artificial knee joint | CPT/HCPCS: 99212 ==

== ENCOUNTER → 2021-08-10 13:00 | Outpatient (BNVA) | payer MEDICARE, SELFPAY | PROVIDERS: PCP Internal Medicine; Visit Provider Physician Assistant | DX: Z47.1 Aftercare following joint replacement surgery (principal); Z96.651 Presence of right artificial knee joint | CPT/HCPCS: 99212 ==

== ENCOUNTER 2021-09-21 08:24 | Outpatient (REF) | payer MEDICARE, SELFPAY ==
--- NOTE | ~2021-09-21 | XR_ITS ---
EXAMINATION: KNEE X-RAY CLINICAL INFORMATION: Knee replacement. COMPARISON: Previous right knee x-ray May 2021 TECHNIQUE: Standing AP view of both knees and lateral and sunrise view of the right knee FINDINGS: Right knee: Bone alignment is normal. There is a patent right knee replacement in satisfactory position. No fracture or dislocation or x-ray evidence of loosening is seen. There is a joint effusion and soft tissue swelling over the knee. Standing AP view of the left knee demonstrates severe arthritis at the medial femoral tibial joints with joint space narrowing and osteophyte formation. There may be mild varus angulation. XR/XR knee RT 2V IMPRESSION: Satisfactory appearance of right knee replacement. Left knee arthritis and mild varus angulation.
--- NOTE | ~2021-09-21 | XR_ITS ---
EXAMINATION: KNEE X-RAY CLINICAL INFORMATION: Knee replacement. COMPARISON: Previous right knee x-ray May 2021 TECHNIQUE: Standing AP view of both knees and lateral and sunrise view of the right knee FINDINGS: Right knee: Bone alignment is normal. There is a patent right knee replacement in satisfactory position. No fracture or dislocation or x-ray evidence of loosening is seen. There is a joint effusion and soft tissue swelling over the knee. Standing AP view of the left knee demonstrates severe arthritis at the medial femoral tibial joints with joint space narrowing and osteophyte formation. There may be mild varus angulation. XR/XR knee standing BI IMPRESSION: Satisfactory appearance of right knee replacement. Left knee arthritis and mild varus angulation.
== END 2021-09-21 08:25 | disposition home or self-care (01) ==
LOC: HO.HOSX 08:24
PROVIDERS: Visit Provider Orthopaedic Surgery
DX: Z47.1 Aftercare following joint replacement surgery (principal); Z96.651 Presence of right artificial knee joint
CPT/HCPCS: 73560; 73565; 99212

== ENCOUNTER 2021-11-16 15:09 | Outpatient (REF) | payer OTHER, SELFPAY ==
--- NOTE | ~2021-11-16 | US_ITS ---
EXAMINATION: US VENOUS ULTRASOUND WITH DOPPLER LOWER EXTREMITY, BILATERAL CLINICAL INFORMATION: Bilateral leg edema. COMPARISON: None. TECHNIQUE: Ultrasound of the deep veins is performed from the hip to the calf with compression sonography and color and pulse Doppler assessment. Spectral analysis with color-flow imaging is performed. FINDINGS: RIGHT: There is normal venous compression and respiratory variation and augmented flow. The visualized common femoral vein, superficial femoral vein, profunda femoral vein, popliteal vein, and the trifurcation region shows no evidence of deep venous thrombosis. The peroneal vein is not visualized. There is no significant popliteal fossa cyst. LEFT: There is normal venous compression and respiratory variation and augmented flow. The visualized common femoral vein, superficial femoral vein, profunda femoral vein, popliteal vein, and the trifurcation region shows no evidence of deep venous thrombosis. The peritoneal vein is not visualized. There is no significant popliteal fossa cyst. If the patient's symptoms persist, followup ultrasound in 5 days 7 days might be of value to exclude proximal propagation from a non-visualized calf vein. US/US venous duplex LE BI IMPRESSION: No DVT demonstrated in bilateral lower extremity.
== END 2021-11-16 15:10 | disposition home or self-care (01) ==
LOC: HO.US 15:09
PROVIDERS: PCP Internal Medicine; Visit Provider Internal Medicine
DX: R60.0 Localized edema (principal)
CPT/HCPCS: 93970

== ENCOUNTER 2021-11-20 12:57 | Outpatient (REF) | payer OTHER, SELFPAY ==
--- NOTE | ~2021-11-20 | MM_ITS ---
EXAMINATION: MM SCREENING DIGITAL BREAST TOMOSYNTHESIS, BILATERAL CLINICAL INFORMATION: Screening. Asymptomatic. The lifetime risk of breast cancer based on the Tyrer-Cuzick Model is 4%. COMPARISON: Mammography: 11/19/2020, 09/11/2019, 08/14/2018 TECHNIQUE: Digital breast tomosynthesis is performed in both the craniocaudal and mediolateral oblique views along with computer-aided detection (CAD). Synthesized 2D images are generated from the tomosynthesis. FINDINGS: The breasts are almost entirely fatty (ACR BI-RADS breast composition Category a). Background stromal and fibroglandular densities are similar to prior studies. There is no interval mass or architectural abnormality or developing density. Again, there are scattered vascular and some ductal secretory calcifications. The axilla and skin contours are unremarkable. No significant changes. MM/MM tomosynthesis screening BI IMPRESSION: No mammographic evidence of malignancy. ASSESSMENT: BI-RADS 2: Benign RECOMMENDATION: Routine annual mammography screening. This patient's information was entered into a reminder system with a target due date for their next mammogram.
== END 2021-11-20 12:58 | disposition home or self-care (01) ==
LOC: HO.MAMMO 12:57
PROVIDERS: PCP Internal Medicine; Visit Provider Internal Medicine
DX: Z12.31 Encounter for screening mammogram for malignant neoplasm of breast (principal)
CPT/HCPCS: 77063; 77067

== ENCOUNTER → 2022-02-09 13:46 | Outpatient (BNVA) | payer OTHER, SELFPAY | PROVIDERS: PCP Internal Medicine; Visit Provider Surgery Vascular Surgery | DX: I83.11 Varicose veins of right lower extremity with inflammation (principal); I89.0 Lymphedema, not elsewhere classified | CPT/HCPCS: 99212 ==

== ENCOUNTER → 2022-03-08 14:36 | Outpatient (BNVA) | payer OTHER, SELFPAY | PROVIDERS: PCP Internal Medicine; Referring Provider Internal Medicine; Visit Provider Internal Medicine Cardiovascular Disease | DX: I11.0 Hypertensive heart disease with heart failure (principal); I50.32 Chronic diastolic (congestive) heart failure | CPT/HCPCS: 93005; 99212 ==

== ENCOUNTER 2022-04-13 07:23 | Outpatient (REF) | payer OTHER, SELFPAY ==
--- NOTE | ~2022-04-13 | US_ITS ---
EXAMINATION: US LOWER EXTREMITY VENOUS (REFLUX EXAM), BILATERAL CLINICAL INDICATION: Varicose veins COMPARISON: Venous duplex on 11/16/2021 TECHNIQUE: Color flow triplex imaging and compression Doppler was performed to evaluate both the deep and the superficial systems bilaterally. To evaluate the superficial system, the examination was performed in the upright position. Color-flow Doppler ultrasound and compression ultrasound were utilized. In addition, maneuvers were utilized to demonstrate reflux. FINDINGS: 1. DEEP VENOUS ULTRASOUND OF THE RIGHT LOWER EXTREMITY: Common Femoral Vein: Compressible, normal respiratory variation and augmented flow. Femoral Vein: Compressible, normal color flow and augmentation. Popliteal Vein: Compressible, normal augmentation. Deep Reflux: There is no evidence of reflux in the deep system in either the common femoral vein or the popliteal vein. There is no evidence of a Yu's cyst. 2. SUPERFICIAL ULTRASOUND WITH DOPPLER OF RIGHT LOWER EXTREMITY: GREAT SAPHENOUS VEIN: Saphenofemoral Junction: 0.5 cm; Reflux: 0 ms Proximal Thigh: 0.5 cm; Reflux: 0 ms Mid Thigh: 0.4 cm; Reflux: 0 ms Above Knee: 0.6 cm; Reflux: 0 ms At Knee: 0.5 cm; Reflux: 0 ms Below Knee: 0.4 cm; Reflux: 0 ms Mid Calf: 0.3 cm; Reflux: 620 ms Ankle: 0.3 cm; Reflux: 0 ms DUPLICATED MEDIAL GREAT SAPHENOUS VEIN: Diameter: None Imaged Reflux: NA DUPLICATED LATERAL GREAT SAPHENOUS VEIN: Diameter: None Imaged Reflux: NA SMALL SAPHENOUS VEIN: Proximal: 0.6 cm; Reflux: 0 ms Distal: 0.3 cm; Reflux: 0 ms VEIN OF GIACOMINI: None Imaged. PERFORATORS: Location: None Imaged Size: NA Reflux: NA VARICOSITIES: Location: Proximal thigh Size: 0.3 cm (x2) Reflux: NA 3. DEEP VENOUS ULTRASOUND OF THE LEFT LOWER EXTREMITY: Common Femoral Vein: Compressible, normal respiratory variation and augmented flow. Femoral Vein: Compressible, normal color flow and augmentation. Popliteal Vein: Compressible, normal augmentation. Deep Reflux: There is no evidence of reflux in the deep system in either the common femoral vein or the popliteal vein. There is a 3.3 x 2.0 x 1.2 cm complex fluid collection in the popliteal fossa. 4. SUPERFICIAL ULTRASOUND WITH DOPPLER OF LEFT LOWER EXTREMITY: GREAT SAPHENOUS VEIN: Saphenofemoral Junction: 0.7 cm; Reflux: 0 ms Proximal Thigh: 0.5 cm; Reflux: 0 ms Mid Thigh: 0.4 cm; Reflux: 0 ms Above Knee: 0.3 cm; Reflux: 0 ms At Knee: 0.4 cm; Reflux: 0 ms Below Knee: 0.2 cm; Reflux: 0 ms Mid Calf: 0.3 cm; Reflux: 0 ms Ankle: 0.4 cm; Reflux: 0 ms DUPLICATED MEDIAL GREAT SAPHENOUS VEIN: Diameter: None Imaged Reflux: NA DUPLICATED LATERAL GREAT SAPHENOUS VEIN: Diameter: None Imaged Reflux: NA SMALL SAPHENOUS VEIN: Proximal: 0.3 cm; Reflux: 0 ms Distal: 0.3 cm; Reflux: 0 ms VEIN OF GIACOMINI: None Imaged. PERFORATORS: Location: [place] Size: 0.3 cm Reflux: NA VARICOSITIES: Location: Proximal thigh and midcalf Size: 0.3 cm (x 3) Reflux: NA US/US venous duplex LE BI IMPRESSION: Right: Reflux in the GSV at the mid calf. Multiple varicose veins. Left: No reflux within the GSV. 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 There is a 3.3 cm Yu's cyst.
== END 2022-04-13 07:24 | disposition home or self-care (01) ==
LOC: HO.US 07:23
PROVIDERS: Visit Provider Surgery Vascular Surgery
DX: I83.11 Varicose veins of right lower extremity with inflammation (principal)
CPT/HCPCS: 93970

== ENCOUNTER → 2022-04-22 10:01 | Outpatient (BNVA) | payer OTHER, SELFPAY | PROVIDERS: PCP Internal Medicine; Visit Provider Surgery Vascular Surgery | DX: I83.11 Varicose veins of right lower extremity with inflammation (principal); I89.0 Lymphedema, not elsewhere classified | CPT/HCPCS: 99212 ==

== ENCOUNTER → 2022-05-12 13:53 | Outpatient (BNVA) | payer OTHER, SELFPAY | PROVIDERS: PCP Internal Medicine; Referring Provider Internal Medicine; Visit Provider Internal Medicine Cardiovascular Disease | DX: I11.0 Hypertensive heart disease with heart failure (principal); I50.32 Chronic diastolic (congestive) heart failure | CPT/HCPCS: 99212 ==

== ENCOUNTER 2022-06-21 13:10 | Outpatient (REF) | payer OTHER, SELFPAY ==
--- NOTE | ~2022-06-21 | XR_ITS ---
EXAMINATION: XR BILATERAL KNEE AP STANDING XR KNEE, RIGHT CLINICAL INFORMATION: Knee pain. COMPARISON: None. TECHNIQUE: Bilateral AP knee standing 1 view. Right knee 2 views. FINDINGS: Bilateral AP Knee: There is a total right knee prosthesis with the prosthetic components in satisfactory alignment. There is severe loss of left knee medial compartment with [id number] apposition. There is medial and lateral compartment periarticular spurring. No fracture, loose bodies or joint effusion seen the left knee. Right Knee: There is a total right knee prosthesis with the prosthetic components in satisfactory alignment. No visible periprosthetic fracture or loosening seen. There is mild suprapatellar joint effusion. XR/XR knee standing BI IMPRESSION: 1. Total right knee prosthesis with prosthetic components in satisfactory alignment. There is mild suprapatellar joint effusion. 2. Severe degenerative changes medial compartment left knee with periarticular spurring. No acute fracture, loose bodies or joint effusion seen. 3. There is no periprosthetic loosening or fracture right knee.
--- NOTE | ~2022-06-21 | XR_ITS ---
EXAMINATION: XR BILATERAL KNEE AP STANDING XR KNEE, RIGHT CLINICAL INFORMATION: Knee pain. COMPARISON: None. TECHNIQUE: Bilateral AP knee standing 1 view. Right knee 2 views. FINDINGS: Bilateral AP Knee: There is a total right knee prosthesis with the prosthetic components in satisfactory alignment. There is severe loss of left knee medial compartment with [id number] apposition. There is medial and lateral compartment periarticular spurring. No fracture, loose bodies or joint effusion seen the left knee. Right Knee: There is a total right knee prosthesis with the prosthetic components in satisfactory alignment. No visible periprosthetic fracture or loosening seen. There is mild suprapatellar joint effusion. XR/XR knee RT 2V IMPRESSION: 1. Total right knee prosthesis with prosthetic components in satisfactory alignment. There is mild suprapatellar joint effusion. 2. Severe degenerative changes medial compartment left knee with periarticular spurring. No acute fracture, loose bodies or joint effusion seen. 3. There is no periprosthetic loosening or fracture right knee.
== END 2022-06-21 13:11 | disposition home or self-care (01) ==
LOC: HO.HOSX 13:10
PROVIDERS: Visit Provider Orthopaedic Surgery
DX: T84.84XA Pain due to internal orthopedic prosthetic devices, implants and grafts, initial encounter (principal); Z96.651 Presence of right artificial knee joint
CPT/HCPCS: 73560; 73565; 99212

== ENCOUNTER → 2022-10-11 14:00 | Outpatient (BNVA) | payer OTHER, SELFPAY | PROVIDERS: PCP Internal Medicine; Visit Provider Urology | DX: Z13.9 Encounter for screening, unspecified (principal); R32 Unspecified urinary incontinence; R39.15 Urgency of urination | CPT/HCPCS: 51701; 51798; 99202 ==

== ENCOUNTER 2022-11-02 05:37 | Inpatient (IN) | payer OTHER, SELFPAY ==
[2022-11-02] VITALS (12 sets, daily range): BP systolic 118–156; BP diastolic 59–72; PULSE 73–105; RESP 15–20; TEMP 36.3–36.6; O2SAT 93–96; BMI 39.0
--- NOTE | 2022-11-02 | ECG_ITS ---
Test Reason : irregular rhythm Blood Pressure : / mmHG Vent. Rate : 097 BPM Atrial Rate : 000 BPM P-R Int : 000 ms QRS Dur : 084 ms QT Int : 374 ms P-R-T Axes : 000 018 254 degrees QTc Int : 474 ms Atrial fibrillation Nonspecific ST and T wave abnormality Abnormal ECG When compared with ECG of 02-NOV-2022 05:58, No significant changes seen Referred By: Viridiana Reagan Electronically Signed By:Prem Adkins
--- NOTE | ~2022-11-02 | CT_ITS ---
EXAMINATION: CT CHEST WITHOUT CONTRAST CLINICAL INFORMATION: Cough. Dyspnea on exertion. Orthopnea. COMPARISON: None available. TECHNIQUE: Multidetector volumetric CT imaging of the chest was done. Axial MIP volume rendering provided. Sagittal and coronal reformatted images were obtained. This CT examination was performed using dose optimization techniques as appropriate, variously including the following: *Automated exposure control *Adjustment of mA and/or kV according to patient size (this includes techniques or standardized protocols for targeted exams where dose is matched to indication/reason for exam; i.e. extremities or head) *Use of iterative reconstruction technique DLP: 452 mGy-cm FINDINGS: Limited by motion. LUNGS/PLEURA: Bilateral diffuse interstitial prominence, right slightly worse than left. Small right pleural effusion with associated right basilar dependent airspace disease. No pneumothorax. MEDIASTINUM: Mild cardiomegaly. No pericardial effusion. No evidence of mediastinal adenopathy by size criteria. CORONARY ARTERY CALCIFICATION: None visualized on this study. CHEST WALL/AXILLA: Mild anasarca. No lymphadenopathy by size criteria. UPPER ABDOMEN: Unremarkable. OSSEOUS STRUCTURES: Degenerative changes of the spine and shoulders. CT/CT chest wo IV con IMPRESSION: Limited by motion. Bilateral diffuse interstitial prominence, right slightly worse than left. Differential diagnosis is extensive and includes, but is not limited to, pulmonary edema and/or chronic interstitial fibrotic changes. Small right pleural effusion with associated right basilar dependent airspace disease suggesting atelectasis and/or focal infiltrate. Mild cardiomegaly. Mild anasarca.
--- NOTE | ~2022-11-02 | XR_ITS ---
EXAMINATION: XR CHEST CLINICAL INFORMATION: Short of breath. Wheezing. COMPARISON: None available. TECHNIQUE: Frontal view of the chest was obtained. FINDINGS: Cardiac leads overlie the chest. Lung volumes are low. Hazy opacity throughout the right mid to lower lung. Linear left perihilar atelectasis. No pneumothorax. No significant pleural effusion. The cardiomediastinal silhouette is prominent, with a calcified aorta. XR/XR chest 1V IMPRESSION: 1. Hazy opacity throughout the right mid to lower lung could be infectious or inflammatory. 2. Linear left perihilar atelectasis.
--- NOTE | 2022-11-02 05:45 | ED.SOB ---
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 Increasing shortness of breath with ambulation. MD elicited complaint: shortness of breath Associated symptoms: other (shortness of breath) Related Data Home Medications Medication Instructions Recorded Confirmed oxybutynin chloride 5 mg tablet 5 mg PO BID 05/15/20 11/02/22 ranitidine HCl 300 mg tablet 300 mg PO BEDTIME 05/15/20 11/02/22 calcium carbonate 600 mg calcium 1 tab PO DAILY 03/24/21 11/02/22 (1,500 mg) tablet cholecalciferol (vitamin D3) 25 1 tab PO QAM 03/24/21 11/02/22 mcg (1,000 unit) tablet fluticasone propionate 50 1 - 2 spray intranasal DAILY PRN 03/24/21 11/02/22 mcg/actuation nasal Nasal Congestion spray,suspension metformin 500 mg tablet 0.5 tab PO BID 03/24/21 11/02/22 sennosides 8.6 mg tablet (Senna 1 tab PO DAILY PRN Constipation 05/28/21 11/02/22 Laxative) ascorbic acid (vitamin C) 500 mg 500 mg PO DAILY 03/08/22 11/02/22 tablet (Vitamin C) ferrous gluconate 324 mg (38 mg 324 mg PO DAILY 03/08/22 11/02/22 iron) tablet cyanocobalamin (vitamin B-12) 1,000 mcg IM Q28D 11/02/22 11/02/22 1,000 mcg/mL injection solution Previous Rx's Medication Instructions Recorded walker #1 ea 03/02/21 acetaminophen 325 mg tablet 650 mg PO Q6H PRN Pain, Mild (Pain 05/29/21 Scale 1-3) 30 days #240 tabs aspirin 81 mg tablet,delayed 81 mg PO DAILY 90 days #90 tabs 03/01/22 release (Adult Aspirin Regimen) atorvastatin 40 mg tablet 40 mg PO DAILY 90 days #90 tabs 03/01/22 carvedilol 25 mg tablet 25 mg PO BID #60 tabs 07/13/22 amlodipine 10 mg tablet 10 mg PO DAILY #90 tabs 07/19/22 losartan 100 mg tablet 100 mg PO DAILY 90 days #90 tabs 10/07/22 apixaban 5 mg tablet (Eliquis) 5 mg PO BID #60 tabs 11/06/22 furosemide 40 mg tablet 40 mg PO DAILY #30 tabs 11/06/22 Allergies Allergy/AdvReac Type Severity Reaction Status Date / Time Penicillins [PENICILLINS] Allergy Intermediate NAUSEA/HIVE Verified 10/11/22 14:12 S Review of Systems Review of Systems: Yes all other systems are reviewed and are negative Respiratory: Respiratory: Reports other (shortness of breath) Neurologic: Denies Sensory deficit (Neuro) [facility] Past Medical History Medical History (Updated 11/02/22 @ 15:14 by MIROSLAVA Fontaine) MARIA R (acute kidney injury) Asthma Chronic diastolic heart failure Diabetes GERD (gastroesophageal reflux disease) Hyperlipidemia Hypertension JOVANNI (obstructive sleep apnea) Osteoarthritis Surgical History H/O: hysterectomy History of salpingoophorectomy History of tonsillectomy Hx of colonoscopy Family History Family History Father HTN (hypertension) Mother HTN (hypertension) CVD (cardiovascular disease) Daughter Bone cancer Father Cancer Social History Social History Household Members: Family Housing: House Are you a primary doggy daycare activities director to a significant other at home: No Do you presently have visiting nurse or other home services: Yes Unable to assess alcohol history related to: Unknown Alcohol intake: never Patient Tobacco Use Status: Never used Tobacco Second Hand Smoke Exposure: No service: No Current occupational status: retired Current occupation: Right handed Physical Exam Vital Signs: Vital Signs: Last Vital Signs Temp 97.1 F 11/06/22 07:07 Pulse 86 11/06/22 08:06 Resp 18 11/06/22 08:06 BP 153/72 H 11/06/22 07:07 Pulse Ox 96 11/06/22 07:07 O2 Del Method Room Air 11/06/22 07:07 O2 Flow Rate 2 11/05/22 14:48 BMI result Body Mass Index 39.0 Const: General: healthy appearing Nutritional Appearance: average body habitus Orientation/consciousness: oriented to person and patient oriented x3 Limitations: no limitations HEENT: Head: Yes normal to inspection Ears: external ears normal General nose exam: Normal external nose present Mouth: Normal oral and palatal mucosa present and oropharynx normal Throat: Yes posterior oropharynx normal Eyes: General: appearance normal, both eyes and all related structures Neck: Other: supple Neck: Yes normal visual inspection Chest: Chest palpation & inspection: normal inspection of the chest Resp: Other: slight wheeze on expiration Cardio: Other: IRRR Jugular venous distension: no JVD GI: Inspection: Yes normal to inspection Palpation (GI): Soft to palpation, nontender and No hepatosplenomegaly present Auscultation: normal bowel sounds : General: Yes no CVA tenderness Back/Spine/Pelvis: Back: no CVA tenderness Skin: General skin exam: no rashes or lesions noted Neuro: General: oriented to person and patient oriented x3 Cranial nerves: Yes CN's II-XII intact bilaterally Motor exam (neuro): 5/5 motor strength present throughout Sensory Exam: No Sensory deficit (Neuro) Extrem: Other: 3 + edema bilaterally Psych: Appearance: grossly normal Course Reevaluation(s) Reevaluation #1: patient with new right sided infiltrate and new Atrial fibrillation, will admit for both Time: 07:20 Reevaluation #2: I spent 40 minutes of critical care, with interventions, assessments, speaking to patient, consultants, and family. Medications Administered Discontinued Medications Generic Name Dose Route Start Last Admin Trade Name Freq PRN Reason Stop Dose Admin Acetaminophen 650 mg 11/02/22 10:44 11/06/22 08:11 Acetaminophen 325 Mg Tablet PO 650 mg Q6H PRN Administration Pain, Mild (Pain Scale 1-3) Amlodipine Besylate 10 mg 11/03/22 09:00 11/06/22 08:12 Amlodipine Besylate 10 Mg Tablet PO 10 mg DAILY BENJIE Administration Protocol Apixaban 5 mg 11/02/22 21:00 11/06/22 08:12 Apixaban 5 Mg Tablet PO 5 mg BID BENJIE Administration Ascorbic Acid 500 mg 11/03/22 09:00 11/06/22 08:12 Ascorbic Acid 500 Mg Tablet PO 500 mg DAILY BENJIE Administration Aspirin 81 mg 11/03/22 09:00 11/06/22 08:12 Aspirin Enteric Coated 81 Mg Tablet. PO 81 mg DAILY BENJIE Administration Atorvastatin Calcium 40 mg 11/03/22 09:00 11/06/22 08:12 Atorvastatin Calcium 40 Mg Tablet PO 40 mg DAILY BENJIE Administration Carvedilol 25 mg 11/02/22 10:55 11/06/22 08:12 Carvedilol 25 Mg Tablet PO 25 mg BID BENJIE Administration Protocol Digoxin 0.125 mg 11/04/22 08:00 11/04/22 08:44 Digoxin 0.125 Mg Tablet PO 0.125 mg Q2D BENJIE Administration Digoxin 0.25 mg 11/04/22 08:57 11/04/22 09:50 Digoxin 0.5 Mg/2 Ml Ampul IVPUSH 11/04/22 08:58 0.25 mg ONCE ONE Administration Docusate Sodium 100 mg 11/03/22 15:35 11/03/22 15:56 Docusate Sodium 100 Mg Capsule PO 100 mg BID PRN Administration Constipation Furosemide 20 mg 11/02/22 05:56 11/02/22 06:17 Furosemide 20 Mg/2 Ml Vial IVPUSH 11/02/22 05:57 20 mg ONCE ONE Administration Protocol Furosemide 40 mg 11/02/22 12:45 11/06/22 08:11 Furosemide 40 Mg/4 Ml Vial IVPUSH 40 mg DAILY BENJIE Administration Protocol Furosemide 40 mg 11/06/22 09:00 11/06/22 10:40 Furosemide 40 Mg Tablet PO Not Given DAILY BENJIE Protocol Ceftriaxone Sodium 1 gm/ 50 mls @ 100 mls/hr 11/02/22 07:13 11/02/22 08:54 Sodium Chloride IV 11/02/22 07:42 Infused ONCE ONE Infusion Azithromycin 500 mg/ Sodium 250 mls @ 125 mls/hr 11/02/22 07:13 11/02/22 10:58 Chloride IV 11/02/22 09:12 Infused ONCE ONE Infusion Dextrose/Sodium Chloride 1,000 mls @ 100 mls/hr 11/02/22 11:00 11/03/22 10:21 D51/2ns IVCONT 11/02/22 20:59 Infused .Q10H BENJIE Infusion Ceftriaxone Sodium 1 gm/ 50 mls @ 100 mls/hr 11/03/22 08:20 11/03/22 08:48 Sodium Chloride IV 11/06/22 08:49 Infused Q24H BENJIE Infusion Azithromycin 500 mg/ Sodium 250 mls @ 125 mls/hr 11/03/22 08:20 11/03/22 11:03 Chloride IV 11/05/22 10:19 Infused Q24H BENJIE Infusion Insulin Human Lispro 0 unit 11/02/22 16:30 11/06/22 08:11 Insulin Lispro 100 Unit/Ml 3 Ml Vial SUBCUT 2 unit QIDACHS BENJIE Administration Protocol Levalbuterol HCl 1.25 mg 11/02/22 12:00 11/06/22 08:06 Levalbuterol Hcl 1.25 Mg/3 Ml Vial.Neb INHALE 1.25 mg RQ4H WHILE AWAKE BENJIE Administration Losartan Potassium 100 mg 11/02/22 10:55 11/06/22 08:12 Losartan Potassium 50 Mg Tablet PO 100 mg DAILY BENJIE Administration Protocol Methylprednisolone Sodium Succinate 40 mg 11/02/22 21:00 11/06/22 08:11 Methylprednisolone Sod Succ 40 Mg/Ml Vial IVPUSH 40 mg Q12H BENJIE Administration Oxybutynin Chloride 5 mg 11/02/22 21:00 11/06/22 08:12 Oxybutynin Chloride 5 Mg Tablet PO 5 mg BID BENJIE Administration Senna 8.6 mg 11/02/22 10:44 11/03/22 08:16 Sennosides 8.6 Mg Tablet PO 8.6 mg DAILY PRN Administration Constipation Vitamin D 25 mcg 11/02/22 10:45 11/06/22 08:12 Cholecalciferol (Vitamin D3) 25 Mcg Tablet PO 25 mcg DAILY BENJIE Administration Medical Decision Making Differential Diagnosis Differential Diagnoses: The differential diagnosis associated with the presentation includes (atrial fibrillation, CHF, pneumonia, acute coronary syndrome, COVID and influenza) Admission/Observation Consideration of admission/observation: Escalation of care including admission/observation considered (on arrival patient with new afib, peripheral edema and wheezing was considered for admission) Consult Healthcare Provider Management of the patient was discussed with: Hospitalist Lab Data MDM Lab Attestation statement: I reviewed the patient's lab results. 11/02/22 06:06 11/02/22 06:06 Labs: Lab Results 11/02/22 11/02/22 11/02/22 Range/Units 06:06 06:06 06:06 WBC 7.9 (4.8-10.8) X10*3/uL RBC 4.18 L (4.20-5.50) X10*6/uL Hgb 11.2 L (12.0-16.0) g/dl Hct 35.4 L D (37.0-47.0) % MCV 84.7 (80.0-98.0) fL MCH 26.8 L (27.0-33.0) pg MCHC 31.6 (31.0-35.0) g/dl RDW 15.7 (11.0-16.0) % Plt Count 253 (160-400) X10*3/uL MPV 10.2 (9.4-12.3) fL Immature Gran % (Auto) 0.4 (0.0-0.4) % Neut % (Auto) 78.5 H (45-73) % Lymph % (Auto) 10.6 L (20-40) % Norman % (Auto) 7.8 (2-11) % Eos % (Auto) 2.4 (0-4) % Baso % (Auto) 0.3 (0-2) % Lymph # (Auto) 0.8 L (1.2-4.9) X10*3/uL Norman # (Auto) 0.6 (0.1-1.2) X10*3/uL Eos # (Auto) 0.2 (0.0-0.4) X10*3/uL Baso # (Auto) 0.0 (0.0-0.2) X10*3/uL Abs Immat Gran (auto) 0.03 (0.00-0.03) X10*3/uL Absolute Neuts (auto) 6.2 (2.0-8.3) x10*3/uL Absolute Nucleated RBC 0.000 (0.0-0.012) X10*3/uL Nucleated RBC % (auto) 0.0 (0.0-0.2) /100WBC Sodium (135-145) mmol/L Potassium (3.3-5.1) mmol/L Chloride (96-108) mmol/L Carbon Dioxide (22-29) mmol/L Anion Gap (12-20) BUN (9-16) mg/dL Creatinine (0.5-1.4) mg/dL Estim Creat Clear Calc Estimated GFR POC Glucose (60-115) mg/dL Random Glucose (60-115) mg/dL Lactic Acid (0.5-2.0) mmol/L Calcium (8.4-10.2) mg/dL Magnesium (1.6-2.6) mg/dL Troponin I High Sens < 2.7 (<3.5-17.0) ng/L B-Natriuretic Peptide 220 H (<100) pg/mL TSH (0.32-4.0) uIU/mL Influenza Type A (PCR) (Negative) Influenza Type B (PCR) (Negative) RSV RNA Qual (PCR) (Negative) SARS-CoV-2 RNA (RT-PCR) (Negative) 11/02/22 11/02/22 11/02/22 Range/Units 06:33 07:57 08:02 WBC (4.8-10.8) X10*3/uL RBC (4.20-5.50) X10*6/uL Hgb (12.0-16.0) g/dl Hct (37.0-47.0) % MCV (80.0-98.0) fL MCH (27.0-33.0) pg MCHC (31.0-35.0) g/dl RDW (11.0-16.0) % Plt Count (160-400) X10*3/uL MPV (9.4-12.3) fL Immature Gran % (Auto) (0.0-0.4) % Neut % (Auto) (45-73) % Lymph % (Auto) (20-40) % Norman % (Auto) (2-11) % Eos % (Auto) (0-4) % Baso % (Auto) (0-2) % Lymph # (Auto) (1.2-4.9) X10*3/uL Norman # (Auto) (0.1-1.2) X10*3/uL Eos # (Auto) (0.0-0.4) X10*3/uL Baso # (Auto) (0.0-0.2) X10*3/uL Abs Immat Gran (auto) (0.00-0.03) X10*3/uL Absolute Neuts (auto) (2.0-8.3) x10*3/uL Absolute Nucleated RBC (0.0-0.012) X10*3/uL Nucleated RBC % (auto) (0.0-0.2) /100WBC Sodium 148 H (135-145) mmol/L Potassium 3.7 (3.3-5.1) mmol/L Chloride 109 H (96-108) mmol/L Carbon Dioxide 27 (22-29) mmol/L Anion Gap 16 (12-20) BUN 12 (9-16) mg/dL Creatinine 0.89 (0.5-1.4) mg/dL Estim Creat Clear Calc 52.3 Estimated GFR > 60 POC Glucose (60-115) mg/dL Random Glucose 143 H (60-115) mg/dL Lactic Acid 1.0 (0.5-2.0) mmol/L Calcium 9.4 (8.4-10.2) mg/dL Magnesium 1.7 (1.6-2.6) mg/dL Troponin I High Sens (<3.5-17.0) ng/L B-Natriuretic Peptide (<100) pg/mL TSH 4.08 H (0.32-4.0) uIU/mL Influenza Type A (PCR) NEGATIVE (Negative) Influenza Type B (PCR) NEGATIVE (Negative) RSV RNA Qual (PCR) NEGATIVE (Negative) SARS-CoV-2 RNA (RT-PCR) NEGATIVE (Negative) 11/02/22 11/02/22 11/03/22 Range/Units 16:16 20:41 06:56 WBC 6.9 (4.8-10.8) X10*3/uL RBC 4.51 (4.20-5.50) X10*6/uL Hgb 11.6 L (12.0-16.0) g/dl Hct 37.8 (37.0-47.0) % MCV 83.8 (80.0-98.0) fL MCH 25.7 L (27.0-33.0) pg MCHC 30.7 L (31.0-35.0) g/dl RDW 15.5 (11.0-16.0) % Plt Count 231 (160-400) X10*3/uL MPV 11.5 (9.4-12.3) fL Immature Gran % (Auto) (0.0-0.4) % Neut % (Auto) (45-73) % Lymph % (Auto) (20-40) % Norman % (Auto) (2-11) % Eos % (Auto) (0-4) % Baso % (Auto) (0-2) % Lymph # (Auto) (1.2-4.9) X10*3/uL Norman # (Auto) (0.1-1.2) X10*3/uL Eos # (Auto) (0.0-0.4) X10*3/uL Baso # (Auto) (0.0-0.2) X10*3/uL Abs Immat Gran (auto) (0.00-0.03) X10*3/uL Absolute Neuts (auto) (2.0-8.3) x10*3/uL Absolute Nucleated RBC 0.000 (0.0-0.012) X10*3/uL Nucleated RBC % (auto) 0.0 (0.0-0.2) /100WBC Sodium (135-145) mmol/L Potassium (3.3-5.1) mmol/L Chloride (96-108) mmol/L Carbon Dioxide (22-29) mmol/L Anion Gap (12-20) BUN (9-16) mg/dL Creatinine (0.5-1.4) mg/dL Estim Creat Clear Calc Estimated GFR POC Glucose 98 166 H (60-115) mg/dL Random Glucose (60-115) mg/dL Lactic Acid (0.5-2.0) mmol/L Calcium (8.4-10.2) mg/dL Magnesium (1.6-2.6) mg/dL Troponin I High Sens (<3.5-17.0) ng/L B-Natriuretic Peptide (<100) pg/mL TSH (0.32-4.0) uIU/mL Influenza Type A (PCR) (Negative) Influenza Type B (PCR) (Negative) RSV RNA Qual (PCR) (Negative) SARS-CoV-2 RNA (RT-PCR) (Negative) 11/03/22 11/03/22 11/03/22 Range/Units 07:31 09:05 11:56 WBC (4.8-10.8) X10*3/uL RBC (4.20-5.50) X10*6/uL Hgb (12.0-16.0) g/dl Hct (37.0-47.0) % MCV (80.0-98.0) fL MCH (27.0-33.0) pg MCHC (31.0-35.0) g/dl RDW (11.0-16.0) % Plt Count (160-400) X10*3/uL MPV (9.4-12.3) fL Immature Gran % (Auto) (0.0-0.4) % Neut % (Auto) (45-73) % Lymph % (Auto) (20-40) % Norman % (Auto) (2-11) % Eos % (Auto) (0-4) % Baso % (Auto) (0-2) % Lymph # (Auto) (1.2-4.9) X10*3/uL Norman # (Auto) (0.1-1.2) X10*3/uL Eos # (Auto) (0.0-0.4) X10*3/uL Baso # (Auto) (0.0-0.2) X10*3/uL Abs Immat Gran (auto) (0.00-0.03) X10*3/uL Absolute Neuts (auto) (2.0-8.3) x10*3/uL Absolute Nucleated RBC (0.0-0.012) X10*3/uL Nucleated RBC % (auto) (0.0-0.2) /100WBC Sodium 145 (135-145) mmol/L Potassium 3.8 (3.3-5.1) mmol/L Chloride 107 (96-108) mmol/L Carbon Dioxide 25 (22-29) mmol/L Anion Gap 17 (12-20) BUN 13 (9-16) mg/dL Creatinine 0.89 (0.5-1.4) mg/dL Estim Creat Clear Calc 52.3 Estimated GFR > 60 POC Glucose 148 H 175 H (60-115) mg/dL Random Glucose 224 H (60-115) mg/dL Lactic Acid (0.5-2.0) mmol/L Calcium 9.3 (8.4-10.2) mg/dL Magnesium (1.6-2.6) mg/dL Troponin I High Sens (<3.5-17.0) ng/L B-Natriuretic Peptide (<100) pg/mL TSH (0.32-4.0) uIU/mL Influenza Type A (PCR) (Negative) Influenza Type B (PCR) (Negative) RSV RNA Qual (PCR) (Negative) SARS-CoV-2 RNA (RT-PCR) (Negative) Independent Interpretation I performed an independent interpretation of an: EKG (atrial fibrillation rate 85, no st or twave changes) and Plain X-Ray (right sided infiltrate) Chronic Conditions Patient?s care impacted by: Diabetes and Hypertension Discharge Plan Discharge Clinical Impression: Pneumonia, Atrial fibrillation Patient Disposition: Admitted As Inpatient Discharge Date/Time: 11/02/22 18:20
--- NOTE | 2022-11-02 05:50 | ECG_ITS ---
Test Reason : SOB Blood Pressure : / mmHG Vent. Rate : 095 BPM Atrial Rate : 138 BPM P-R Int : 000 ms QRS Dur : 086 ms QT Int : 362 ms P-R-T Axes : 000 020 -80 degrees QTc Int : 454 ms Atrial fibrillation Nonspecific ST and T wave abnormality Abnormal ECG When compared with ECG of 18-MAR-2021 06:58, Atrial fibrillation Present Nonspecific T wave abnormality, worse in Lateral leads Referred By: Harmeet Leone Electronically Signed By:Prem Adkins
[2022-11-02 06:17] LABS: MANUAL DIFF FLAG NO
[2022-11-02] MEDS: Furosemide 20 MG/2 ML VIAL IVPUSH (06:17)
[2022-11-02 06:18] LABS: Basophils Percent Auto 0.3 % (0-2); Eosinophils Absolute Auto 0.2 X10*3/uL (0.0-0.4); Eosinophils Percent Auto 2.4 % (0-4); Hematocrit 35.4 % (37.0-47.0); Hemoglobin 11.2 g/dl (12.0-16.0); Imm Gran Abs Auto 0.03 X10*3/uL (0.00-0.03); Imm Gran Pct Auto 0.4 % (0.0-0.4); Lymphocytes Absolute Auto 0.8 X10*3/uL (1.2-4.9); Lymphocytes Percent Auto 10.6 % (20-40); Mean Corpuscular HGB Conc 31.6 g/dl (31.0-35.0); Mean Corpuscular Hemoglobin 26.8 pg (27.0-33.0); Mean Corpuscular Volume 84.7 fL (80.0-98.0); Mean Platelet Volume 10.2 fL (9.4-12.3); Monocytes Absolute Auto 0.6 X10*3/uL (0.1-1.2); Monocytes Percent Auto 7.8 % (2-11); Neutrophils Absolute Auto 6.2 x10*3/uL (2.0-8.3); Neutrophils Percent Auto 78.5 % (45-73); Platelet Count 253 X10*3/uL (160-400); Red Blood Count 4.18 X10*6/uL (4.20-5.50); Red Cell Distribution Width 15.7 % (11.0-16.0); White Blood Count 7.9 X10*3/uL (4.8-10.8)
--- NOTE | 2022-11-02 06:21 | MHC.EDTECH ---
pt has a purewick in place, vitals and ekg and blood work done, she is comfortable in bed her daughter is there
[2022-11-02 06:36] LABS: B Type Natriuretic Peptide 220 pg/mL (<100)
[2022-11-02 06:38] LABS: Troponin-I High Sensitivity < 2.7 ng/L (<3.5-17.0)
[2022-11-02 07:56] LABS: Anion Gap 16 (12-20); Blood Urea Nitrogen 12 mg/dL (9-16); Calcium 9.4 mg/dL (8.4-10.2); Carbon Dioxide 27 mmol/L (22-29); Chloride 109 mmol/L (96-108); Creatinine Clr Calc Pharmacy 52.3; Estimated Glomerular Filt Rate > 60; Glucose Random 143 mg/dL (60-115); Potassium 3.7 mmol/L (3.3-5.1); Sodium 148 mmol/L (135-145)
[2022-11-02] MEDS: cefTRIAXone sodium 1 GM in 0.9 % Sodium Chloride 50 ML IV (08:20)
--- NOTE | 2022-11-02 08:26 | PC.NURSE ---
PT AWAKE AND ALERT WITH DAUGHTERS AT THE BEDSIDE. SHE OUTPUT 900 ML URINE. SHE IS IN NO ACUTE RESPIRATORY DISTRESS AT THIS TIME. SHE IS CONVERSATIONAL. AWAITING DISPOSITION MEDICATED CHARTED. PATENT 20G IN LEFT WRIST
--- NOTE | 2022-11-02 08:36 | PHA.MEDREC ---
Pharmacy Consult ? Medication Reconciliation Pharmacy has completed the medication reconciliation. Pt's family with list at bedside, interpreted for me. Noted that pt is due for her B12 shot today.
[2022-11-02 08:49] LABS: Influenza A PCR NEGATIVE (Negative); Influenza B PCR NEGATIVE (Negative); Resp Syncy Virus RNA Qual PCR NEGATIVE (Negative); SARS COV2 PCR INHOUSE NEGATIVE (Negative)
[2022-11-02] MEDS: Azithromycin 500 MG in 0.9 % Sodium Chloride 250 ML 125 MG IV (08:55)
--- NOTE | 2022-11-02 09:10 | MHC.EDTECH ---
patient wash and cleaned, reposition .Patient relaxing with family.
--- NOTE | 2022-11-02 09:43 | PC.NURSE ---
Pt sitting up eating breakfast, antibiotics infusing. continues to have urinary output
[2022-11-02] MEDS: Dextrose 5 % and 0.45 % NaCl 1,000 ML 100 ML IVCONT (11:17)
[2022-11-02] MEDS: Losartan Potassium 50 MG TABLET 100 MG PO (11:17)
[2022-11-02] MEDS: carvediloL 25 MG TABLET PO ×2 (11:18→21:07)
[2022-11-02] MEDS: levalbuterol HCL 1.25 MG/3 ML VIAL.NEB INHALE ×3 (11:18→19:37)
[2022-11-02] MEDS: Cholecalciferol (Vitamin D3) 25 MCG TABLET PO (11:18)
[2022-11-02 11:57] LABS: Thyroid Stimulating Hormone 4.08 uIU/mL (0.32-4.0)
--- NOTE | 2022-11-02 12:06 | PM.IMHP ---
History of Present Illness Date of Service: 11/02/22 Attending physician on admission: Bisi Bermudez Chief Complaint: sob 68-year-old female with history of HFpEF, JOVANNI noncompliant with CPAP, mild intermittent asthma, GERD, hypertension, and [id number] type 2 diabetes presented to the ED earlier today with her 2 daughters with whom she lives via EMS for evaluation of shortness of breath ongoing for 1 day. She describes this as orthopnea and dyspnea on exertion. There has also been wheezing, lightheadedness, productive cough, and increased in bilateral lower extremity edema ongoing for last 2-3 days. She also reports early satiety with decreased p.o. intake. No fevers, chills, congestion, sore throat, headaches, abdominal pain, nausea, vomiting, diarrhea, palpitations, or chest pain. Denies any sick contacts or recent travel. On arrival, vital stable. No leukocytosis. H/H 11.2/35.4%. Renal function baseline. Sodium 148, potassium 3.7, chloride 109. Mag pending. Troponin below detectable limits. BNP 220. TSH 4.08. Negative for influenza, RSV, COVID-19. CXR showing hazy opacity throughout the right mid to lower lung possibly reflecting infectious versus inflammatory etiology as well as linear left perihilar atelectasis. EKG showing unspecified dysrhythmia with nonspecific ST/T-wave abnormality. Repeat EKG with AFib, rate 97, nonspecific st/t wave abnormality. In the ED, treated wtih 20mg furosemide, ceftriaxone, zithromax, and IVF. Review of Systems Review of Systems: General: No fevers, malaise, unintentional weight loss HEENT: No blurred vision, diplopia. No sore throat, nasal congestion, rhinorrhea, sinus pain, ear pain Cardiovascular: No chest pain, palpitations, +BLE edema Respiratory: +ceballos, +orthopnea, +wheezing, +productive cough GI: No abdominal pain, nausea, vomiting, diarrhea, constipation, melena, hematochezia : No dysuria, hematuria, increased urinary frequency, decreased urinary output MSK: No myalgia, back pain Neuro: No headaches, weakness, paresthesias Skin: No rashes or lesions [facility] Medical History (Updated 11/02/22 @ 15:14 by MIROSLAVA Fontaine) MARIA R (acute kidney injury) Asthma Chronic diastolic heart failure Diabetes GERD (gastroesophageal reflux disease) Hyperlipidemia Hypertension JOVANNI (obstructive sleep apnea) Osteoarthritis Family History Father HTN (hypertension) Mother HTN (hypertension) CVD (cardiovascular disease) Daughter Bone cancer Father Cancer Surgical History H/O: hysterectomy History of salpingoophorectomy History of tonsillectomy Hx of colonoscopy Social History Household Members: Family Housing: House Are you a primary health care manager to a significant other at home: No Do you presently have visiting nurse or other home services: Yes Unable to assess alcohol history related to: Unknown Alcohol intake: never Patient Tobacco Use Status: Never used Tobacco Second Hand Smoke Exposure: No service: No Current occupational status: retired Current occupation: Right handed Meds Allergies Allergy/AdvReac Type Severity Reaction Status Date / Time Penicillins [PENICILLINS] Allergy Intermediate NAUSEA/HIVE Verified 10/11/22 14:12 S Active Medications: Current Medications Acetaminophen (Acetaminophen 325 Mg Tablet) 650 mg PO Q6H PRN PRN Reason: Pain, Mild (Pain Scale 1-3) Amlodipine Besylate (Amlodipine Besylate 10 Mg Tablet) 10 mg PO DAILY ON [facility] OF [facility]; Protocol Ascorbic Acid (Ascorbic Acid 500 Mg Tablet) 500 mg PO DAILY ON LICENSE OF [facility] Aspirin (Aspirin Enteric Coated 81 Mg Tablet.) 81 mg PO DAILY ON LICENSE OF [facility] Atorvastatin Calcium (Atorvastatin Calcium 40 Mg Tablet) 40 mg PO DAILY ON LICENSE OF [facility] Carvedilol (Carvedilol 25 Mg Tablet) 25 mg PO BID ON LICENSE OF [facility]; Protocol Last Admin: 11/02/22 11:18 Dose: 25 mg Cyanocobalamin (Cyanocobalamin (Vitamin B-12) 1,000 Mcg/Ml Vial) 1,000 mcg IM Q28D ON LICENSE OF [facility] Fluticasone Propionate (Fluticasone Propionate Nasal 16 Gm [place]) 1 - 2 spray NOSTRIL-B DAILY PRN PRN Reason: Nasal Congestion Furosemide (Furosemide 20 Mg Tablet) 20 mg PO DAILY ON LICENSE OF [facility]; Protocol Dextrose/Sodium Chloride (D51/2ns) 1,000 mls @ 100 mls/hr IVCONT .Q10H BENJIE Stop: 11/02/22 20:59 Last Admin: 11/02/22 11:17 Dose: 100 mls/hr Levalbuterol HCl (Levalbuterol Hcl 1.25 Mg/3 Ml Vial.Neb) 1.25 mg INHALE RQ4H WHILE AWAKE ON LICENSE OF [facility] Last Admin: 11/02/22 11:18 Dose: 1.25 mg Losartan Potassium (Losartan Potassium 50 Mg Tablet) 100 mg PO DAILY ON LICENSE OF [facility]; Protocol Last Admin: 11/02/22 11:17 Dose: 100 mg Methylprednisolone Sodium Succinate (Methylprednisolone Sod Succ 40 Mg/Ml Vial) 40 mg IVPUSH Q12H ON LICENSE OF [facility] Ondansetron HCl (Ondansetron Hcl 4 Mg/2 Ml Vial) 4 mg IVPUSH Q8H PRN PRN Reason: Nausea and Vomiting Oxybutynin Chloride (Oxybutynin Chloride 5 Mg Tablet) 5 mg PO BID ON LICENSE OF [facility] Pharmacy Consult (Consult Rx Perform Med Rec) 1 each MISCELLANE ONCE PRN PRN Reason: Consult order Senna (Sennosides 8.6 Mg Tablet) 8.6 mg PO DAILY PRN PRN Reason: Constipation Vitamin D (Cholecalciferol (Vitamin D3) 25 Mcg Tablet) 25 mcg PO DAILY ON LICENSE OF [facility] Last Admin: 11/02/22 11:18 Dose: 25 mcg Home Medications Medication Instructions Recorded Confirmed Last Taken Type oxybutynin chloride 5 mg tablet 5 mg PO BID 05/15/20 11/02/22 11/01/22 History ranitidine HCl 300 mg tablet 300 mg PO BEDTIME 05/15/20 11/02/22 11/01/22 History calcium carbonate 600 mg calcium 1 tab PO DAILY 03/24/21 11/02/22 11/01/22 History (1,500 mg) tablet cholecalciferol (vitamin D3) 25 1 tab PO QAM 03/24/21 11/02/22 11/01/22 History mcg (1,000 unit) tablet fluticasone propionate 50 1 - 2 spray intranasal DAILY PRN 03/24/21 11/02/22 11/01/22 History mcg/actuation nasal Nasal Congestion spray,suspension metformin 500 mg tablet 0.5 tab PO BID 03/24/21 11/02/22 11/01/22 History sennosides 8.6 mg tablet (Senna 1 tab PO DAILY PRN Constipation 05/28/21 11/02/22 11/01/22 History Laxative) ascorbic acid (vitamin C) 500 mg 500 mg PO DAILY 03/08/22 11/02/22 11/01/22 History tablet (Vitamin C) ferrous gluconate 324 mg (38 mg 324 mg PO DAILY 03/08/22 11/02/22 11/01/22 History iron) tablet cyanocobalamin (vitamin B-12) 1,000 mcg IM Q28D 11/02/22 11/02/22 11/01/22 History 1,000 mcg/mL injection solution Physical Exam Vital Signs and Narrative: Vital Signs: Last Vital Signs Temp 97.4 F 11/02/22 08:56 Pulse 99 11/02/22 11:21 Resp 20 11/02/22 11:21 BP 118/61 11/02/22 11:21 Pulse Ox 96 11/02/22 11:21 O2 Del Method Room Air 11/02/22 11:21 BMI result Body Mass Index 39.0 Constitutional - Awake and Alert, No apparent distress Eyes - PERRLA, EOMI Cardiovascular - S1S2, RRR, 2+BLE edema Respiratory - Normal lung expansion, Normal respiratory effort, No respiratory distress, diffuse expiratory wheezing, crackles RLL Gastrointestinal - NT / ND; +BS; No rebound or guarding Extremities - no calf tenderness bilaterally, no swelling Skin - Warm/Dry Neurological - Alert & oriented x3, CN II-XII in tact Psychological - Appropriate affect Results Labs 11/02/22 06:06 11/02/22 06:33 Labs: Laboratory Results - last 24 hr 11/02/22 11/02/22 11/02/22 06:06 06:06 06:06 MCV 84.7 MCH 26.8 L MCHC 31.6 RDW 15.7 Plt Count 253 MPV 10.2 Immature Gran % (Auto) 0.4 Neut % (Auto) 78.5 H Lymph % (Auto) 10.6 L [place] % (Auto) 7.8 Eos % (Auto) 2.4 Baso % (Auto) 0.3 Lymph # (Auto) 0.8 L [place] # (Auto) 0.6 Eos # (Auto) 0.2 Baso # (Auto) 0.0 Abs Immat Gran (auto) 0.03 Absolute Neuts (auto) 6.2 Absolute Nucleated RBC 0.000 Nucleated RBC % (auto) 0.0 Anion Gap Estim Creat Clear Calc Estimated GFR Random Glucose Lactic Acid Calcium Troponin I High Sens < 2.7 B-Natriuretic Peptide 220 H TSH Influenza Type A (PCR) Influenza Type B (PCR) RSV RNA Qual (PCR) SARS-CoV-2 RNA (RT-PCR) 11/02/22 11/02/22 11/02/22 06:33 07:57 08:02 MCV MCH MCHC RDW Plt Count MPV Immature Gran % (Auto) Neut % (Auto) Lymph % (Auto) [place] % (Auto) Eos % (Auto) Baso % (Auto) Lymph # (Auto) [place] # (Auto) Eos # (Auto) Baso # (Auto) Abs Immat Gran (auto) Absolute Neuts (auto) Absolute Nucleated RBC Nucleated RBC % (auto) Anion Gap 16 Estim Creat Clear Calc 52.3 Estimated GFR > 60 Random Glucose 143 H Lactic Acid 1.0 Calcium 9.4 Troponin I High Sens B-Natriuretic Peptide TSH 4.08 H Influenza Type A (PCR) NEGATIVE Influenza Type B (PCR) NEGATIVE RSV RNA Qual (PCR) NEGATIVE SARS-CoV-2 RNA (RT-PCR) NEGATIVE Imaging Radiologist's Impressions: Impressions Chest X-Ray 11/02/22 06:52 IMPRESSION: 1. Hazy opacity throughout the right mid to lower lung could be infectious or inflammatory. 2. Linear left perihilar atelectasis. Assessment and Plan (1) Pneumonia: Status: Acute (2) Atrial fibrillation: Status: Acute (3) CHF exacerbation: Status: Acute Plan 68-year-old female with history of HFpEF, JOVANNI noncompliant with CPAP, mild intermittent asthma, GERD, hypertension, and [id number] type 2 diabetes #Acute pneumonia -CXR with right-sided opacities. Subsequent chest CT final reading pending, but on my review shows right middle lobe/right lower lobe consolidation -IV ceftriaxone 1 g q.d. x5 days and IV azithromycin 500 mg daily x3 days (initiated 11/02) -symptomatic management -no sepsis, no hypoxia #New onset atrial fibrillation- rate controlled -[id number] score 6. No contraindication to anticoagulation. Initiate eliquis 5mg BID -Continue carvedilol 25mg BID -Appreciate cardiology input -Monitor on telemetry -Echo ordered #HFpEF- with acute exacerbation -BLE, orthopnea, CEBALLOS. CXR without effusions or edema. Chest CT pending -Lasix 40mg IV daily -strict I&O -Cardiac diet -Echo -Appreciate cardiology input #Noninsulin dependent type 2 diabetes without hyperglycemia -POC glucose -Diabetic diet -Humalog SSI -hold metformin #HTN- reasonably controlled -continue home meds #Mild intermittent asthma- with mild acute exacerbation -Wheezing likely multifactorial related to CHF exacerbation and asthma exacerbation -IV methylprednisolone 40 mg b.i.d. -DuoNebs q.4h prn while awake -xopenex prn #GERD -continue home meds #HLD -continue statin DVT prophylaxis- initiate eliquis Full code Pt requires inpt stay at least 2 midnights for management of new onset afib and CHF exacerbation Time Spent With Patient Time: Total time managing care of this patient today ____ minutes. Quality Stroke Does the patient have a stroke diagnosis?: No VTE Prior VTE?: No VTE Risk Level:: Medical - moderate - high VTE Device Contraindication: Treatment Not Indicated VTE Drug Contraindication: N/A - Med Ordered
--- NOTE | 2022-11-02 12:33 | P.CONCA_ITS ---
History of Present Illness History of Present Illness Date of Service: 11/02/22 Requesting physician: Bisi Bermudez Chief complaint: new onset afib Narrative: Pleasant 76-year-old female who has known history of congestive heart failure and hypertension presenting with palpitations and new onset atrial fibrillation. She also has shortness of breath and peripheral edema on examination. Clinically she is in heart failure. She said over the last 3 days she has felt palpitations. Did not feel any different before that. On the same time she also developed shortness of breath. Daughter said that she saw her mom huffing and puffing and decide to bring her to the emergency department. Her EKG is showing atrial fibrillation. Heart rate is reasonably controlled. She also was noticed to be hypernatremic and has been getting IV fluids. [facility] Past Medical History Medical History (Updated 11/02/22 @ 15:14 by MIROSLAVA Fontaine) MARIA R (acute kidney injury) Asthma Chronic diastolic heart failure Diabetes GERD (gastroesophageal reflux disease) Hyperlipidemia Hypertension JOVANNI (obstructive sleep apnea) Osteoarthritis Family History Family History Father HTN (hypertension) Mother HTN (hypertension) CVD (cardiovascular disease) Daughter Bone cancer Father Cancer Surgical History Surgical History H/O: hysterectomy History of salpingoophorectomy History of tonsillectomy Hx of colonoscopy Social History Social History Are you a primary district manager primary care sales to a significant other at home: No Do you presently have visiting nurse or other home services: Yes ([employer] daily and at night) Alcohol intake: never Patient Tobacco Use Status: Never used Tobacco Smoked in Last 30 Days: No Second Hand Smoke Exposure: No Use of substances other than those prescribed or required for medical reasons: No Advance Directives: No Advance Directives Information Provided: Yes service: No Current occupational status: retired Current occupation: Right handed Meds Allergies Allergy/AdvReac Type Severity Reaction Status Date / Time Penicillins [PENICILLINS] Allergy Intermediate NAUSEA/HIVE Verified 10/11/22 14:12 S Active Medications: Current Medications Acetaminophen (Acetaminophen 325 Mg Tablet) 650 mg PO Q6H PRN PRN Reason: Pain, Mild (Pain Scale 1-3) Amlodipine Besylate (Amlodipine Besylate 10 Mg Tablet) 10 mg PO DAILY [facility]; Protocol Ascorbic Acid (Ascorbic Acid 500 Mg Tablet) 500 mg PO DAILY [facility] Aspirin (Aspirin Enteric Coated 81 Mg Tablet.Dr) 81 mg PO DAILY [facility] Atorvastatin Calcium (Atorvastatin Calcium 40 Mg Tablet) 40 mg PO DAILY [facility] Carvedilol (Carvedilol 25 Mg Tablet) 25 mg PO BID [facility]; Protocol Last Admin: 11/02/22 11:18 Dose: 25 mg Cyanocobalamin (Cyanocobalamin (Vitamin B-12) 1,000 Mcg/Ml Vial) 1,000 mcg IM Q28D [facility] Fluticasone Propionate (Fluticasone Propionate Nasal 16 Gm [place]) 1 - 2 spray NOSTRIL-B DAILY PRN PRN Reason: Nasal Congestion Furosemide (Furosemide 20 Mg Tablet) 20 mg PO DAILY [facility]; Protocol Dextrose/Sodium Chloride (D51/2ns) 1,000 mls @ 100 mls/hr IVCONT .Q10H [facility] Stop: 11/02/22 20:59 Last Admin: 11/02/22 11:17 Dose: 100 mls/hr Levalbuterol HCl (Levalbuterol Hcl 1.25 Mg/3 Ml Vial.Neb) 1.25 mg INHALE RQ4H WHILE AWAKE [facility] Last Admin: 11/02/22 11:18 Dose: 1.25 mg Losartan Potassium (Losartan Potassium 50 Mg Tablet) 100 mg PO DAILY [facility]; Protocol Last Admin: 11/02/22 11:17 Dose: 100 mg Methylprednisolone Sodium Succinate (Methylprednisolone Sod Succ 40 Mg/Ml Vial) 40 mg IVPUSH Q12H [facility] Ondansetron HCl (Ondansetron Hcl 4 Mg/2 Ml Vial) 4 mg IVPUSH Q8H PRN PRN Reason: Nausea and Vomiting Oxybutynin Chloride (Oxybutynin Chloride 5 Mg Tablet) 5 mg PO BID [facility] Pharmacy Consult (Consult Rx Perform Med Rec) 1 each MISCELLANE ONCE PRN PRN Reason: Consult order Senna (Sennosides 8.6 Mg Tablet) 8.6 mg PO DAILY PRN PRN Reason: Constipation Vitamin D (Cholecalciferol (Vitamin D3) 25 Mcg Tablet) 25 mcg PO DAILY [facility] Last Admin: 11/02/22 11:18 Dose: 25 mcg Home Medications Medication Instructions Recorded Confirmed Last Taken Type oxybutynin chloride 5 mg tablet 5 mg PO BID 05/15/20 11/02/22 11/01/22 History ranitidine HCl 300 mg tablet 300 mg PO BEDTIME 05/15/20 11/02/22 11/01/22 History calcium carbonate 600 mg calcium 1 tab PO DAILY 03/24/21 11/02/22 11/01/22 History (1,500 mg) tablet cholecalciferol (vitamin D3) 25 1 tab PO QAM 03/24/21 11/02/22 11/01/22 History mcg (1,000 unit) tablet fluticasone propionate 50 1 - 2 spray intranasal DAILY PRN 03/24/21 11/02/22 11/01/22 History mcg/actuation nasal Nasal Congestion spray,suspension metformin 500 mg tablet 0.5 tab PO BID 03/24/21 11/02/22 11/01/22 History sennosides 8.6 mg tablet (Senna 1 tab PO DAILY PRN Constipation 05/28/21 3 11/01/22 History Laxative) ascorbic acid (vitamin C) 500 mg 500 mg PO DAILY 03/08/22 11/02/22 11/01/22 History tablet (Vitamin C) ferrous gluconate 324 mg (38 mg 324 mg PO DAILY 03/08/22 11/02/22 11/01/22 History iron) tablet cyanocobalamin (vitamin B-12) 1,000 mcg IM Q28D 11/02/22 11/02/22 11/01/22 History 1,000 mcg/mL injection solution furosemide 20 mg tablet 20 mg PO DAILY 11/02/22 11/02/22 11/01/22 History Physical Exam Vital Signs: Vital Signs: Last Vital Signs Temp 97.4 F 11/02/22 08:56 Pulse 99 11/02/22 11:21 Resp 20 11/02/22 11:21 BP 118/61 11/02/22 11:21 Pulse Ox 96 11/02/22 11:21 O2 Del Method Room Air 11/02/22 11:21 BMI result Body Mass Index 39.0 GENERAL APPEARANCE: in no acute distress, pleasant. NECK: no carotid bruit, + jugular venous distention. SKIN: no suspicious lesions, warm and dry. HEART: no murmurs, irregular rate and rhythm. LUNGS: Mild expiratory wheezes. ABDOMEN: soft, nontender. EXTREMITIES: ++ edema. PERIPHERAL PULSES: equal. NEUROLOGIC: No gross deficits, AAO X 3 Objective Labs and Meds 11/02/22 06:06 11/02/22 06:33 Lab results: Laboratory Results - last 24 hr 11/02/22 11/02/22 11/02/22 06:06 06:06 06:06 WBC 7.9 RBC 4.18 L Hgb 11.2 L Hct 35.4 L D MCV 84.7 MCH 26.8 L MCHC 31.6 RDW 15.7 Plt Count 253 MPV 10.2 Immature Gran % (Auto) 0.4 Neut % (Auto) 78.5 H Lymph % (Auto) 10.6 L [place] % (Auto) 7.8 Eos % (Auto) 2.4 Baso % (Auto) 0.3 Lymph # (Auto) 0.8 L [place] # (Auto) 0.6 Eos # (Auto) 0.2 Baso # (Auto) 0.0 Abs Immat Gran (auto) 0.03 Absolute Neuts (auto) 6.2 Absolute Nucleated RBC 0.000 Nucleated RBC % (auto) 0.0 Sodium Potassium Chloride Carbon Dioxide Anion Gap BUN Creatinine Estim Creat Clear Calc Estimated GFR Random Glucose Lactic Acid Calcium Troponin I High Sens < 2.7 B-Natriuretic Peptide 220 H TSH Influenza Type A (PCR) Influenza Type B (PCR) RSV RNA Qual (PCR) SARS-CoV-2 RNA (RT-PCR) 11/02/22 11/02/22 11/02/22 06:33 07:57 08:02 WBC RBC Hgb Hct MCV MCH MCHC RDW Plt Count MPV Immature Gran % (Auto) Neut % (Auto) Lymph % (Auto) [place] % (Auto) Eos % (Auto) Baso % (Auto) Lymph # (Auto) [place] # (Auto) Eos # (Auto) Baso # (Auto) Abs Immat Gran (auto) Absolute Neuts (auto) Absolute Nucleated RBC Nucleated RBC % (auto) Sodium 148 H Potassium 3.7 Chloride 109 H Carbon Dioxide 27 Anion Gap 16 BUN 12 Creatinine 0.89 Estim Creat Clear Calc 52.3 Estimated GFR > 60 Random Glucose 143 H Lactic Acid 1.0 Calcium 9.4 Troponin I High Sens B-Natriuretic Peptide TSH 4.08 H Influenza Type A (PCR) NEGATIVE Influenza Type B (PCR) NEGATIVE RSV RNA Qual (PCR) NEGATIVE SARS-CoV-2 RNA (RT-PCR) NEGATIVE Imaging Radiologist's impression: Impressions Chest X-Ray 11/02/22 06:52 IMPRESSION: 1. Hazy opacity throughout the right mid to lower lung could be infectious or inflammatory. 2. Linear left perihilar atelectasis. Assessment and Plan (1) CHF exacerbation: Status: Acute (2) Atrial fibrillation: Status: Acute Plan Pleasant 76-year-old female presenting for new onset atrial fibrillation and congestive heart failure. She has known history of diastolic heart failure. It is possible that she got decompensated due to atrial fibrillation. In any case avoid further IV fluids and give her furosemide IV . Monitor blood pressure and electrolytes closely. She should be anticoagulated for atrial fibrillation. If she does not improve a continues to have shortness of breath then she will need CLARITZA cardioversion. Thank you for allowing me to participate in the care of your patient. Please feel free to contact me if you have any questions. Time Spent With Patient Time: Total time managing care of this patient today ____ minutes. Procedures Date of Service Date of Service: 11/02/22
[2022-11-02 12:38] LABS: Magnesium 1.7 mg/dL (1.6-2.6)
[2022-11-02] MEDS: Furosemide 40 MG/4 ML VIAL IVPUSH (12:56)
--- NOTE | 2022-11-02 15:37 | PC.NURSE ---
pt remains in ed with family present. she is eating and conversational without difficulty. there is a slight decrease in le edema pt did have an additional 700ml urinary output.
[2022-11-02 16:20] LABS: Glucose, Whole Blood 98 mg/dL (60-115)
[2022-11-02 20:44] LABS: Glucose, Whole Blood 166 mg/dL (60-115)
[2022-11-02] MEDS: Insulin Lispro 100 UNIT/ML 3 ML VIAL SUBCUT (21:04)
[2022-11-02] MEDS: methylPREDNISolone Sod Succ 40 MG/ML VIAL IVPUSH (21:05)
[2022-11-02] MEDS: oxyBUTYnin chloride 5 MG TABLET PO (21:06)
[2022-11-02] MEDS: Apixaban 5 MG TABLET PO (21:07)
[2022-11-03] VITALS (9 sets, daily range): BP systolic 118–144; BP diastolic 64–81; PULSE 73–116; RESP 14–20; TEMP 36–37.2; O2SAT 92–95
--- NOTE | 2022-11-03 05:15 | PC.NURSE ---
2100 Pt request caregiver (daughter ) to stay overnight with her she said she was scared to be in the hospital, Business Developer aware.
--- NOTE | 2022-11-03 07:00 | CA_ITS ---
Transthoracic Echocardiogram Patient (Last, First, Middle): Victorina Francois E Gender: Female Date of : 1945 Age: 76 Procedure Date: 11/03/2022 Procedure Type: Transthoracic Echocardiogram Location: [facility] [place] Height: 152.4 cm Weight: 90.72 kg BSA: 1.87 m2 Heart Rate: 99 bpm BP: 118 / 61 mmHg Mushroom Farmer: MARBIN Martino MD: Bisi Bermudez MD Symptoms: new onset Afib Study Quality: Adequate ECG Rhythm: Atrial Fibrillation Conclusions: - Normal left ventricular size and systolic function. There is mildly increased left ventricular wall thickness. The visually estimated ejection fraction is between 55-60%. - Normal right ventricular cavity size and systolic function. - The left atrium is severely dilated. - There is moderate tricuspid valve regurgitation. Significantly elevated right atrial pressure. There is no evidence of pulmonary hypertension. Findings Left Ventricle Normal left ventricular size and systolic function. There is mildly increased left ventricular wall thickness. The visually estimated ejection fraction is between 55-60%. There is no evidence of regional wall motion abnormalities. Diastolic function is indeterminate on the basis of available data. Right Ventricle Normal right ventricular cavity size and systolic function. Atria The left atrium is severely dilated. The right atrium is moderately dilated. Aortic Valve There is a normal trileaflet aortic valve. There is mild calcification of the aortic valve. There is no aortic valve stenosis. There is no aortic valve regurgitation. Mitral Valve Normal mitral valve structure and function. There is mild mitral valve regurgitation. There is no mitral valve stenosis. Pulmonic Valve The pulmonic valve was not well visualized. Tricuspid Valve Normal tricuspid valve structure. There is moderate tricuspid valve regurgitation. Significantly elevated right atrial pressure. There is no evidence of pulmonary hypertension. Great Vessels All visible segments of the aorta are normal in size. Small plaque is seen in the sino tubular ridge. The visualized portions of the pulmonary artery and branches are normal. Venous The inferior vena cava is dilated and collapses less than 50% with inspiration. Pericardium/Pleural There is no evidence of pericardial effusion. Prior Study Comparison Changes noted compared to prior study dated: 04/13/2021. EF 55-60%, Severe LA dilation. Measurements 2D Linear Measurements IVSd: 0.97 0.6-0.9/0.6-1.0 cm LVIDd: 4.52 3.9-5.3/4.2-5.9 cm LVIDd Index: 2.42 2.4-3.2/2.2-3.1 cm/m2 LVIDs: 3.37 2.0-3.6 cm LVPWd: 0.84 0.7-1.1 cm LA Diam: 4.40 2.7-3.8/3.0-4.0 cm LAIDs Index: 2.35 1.5-2.3 cm/m2 LV Mass: 167.24 67-162/88-224 g LV Mass Index: 89.43 43-95/49-115 g/m2 LVOT Diam: 2.00 3.0+(-)1.3 cm 2D Systolic Function EF 4C: 42.70 >55% EF 2C: 61.10 >55% EF BiP: 53.10 >55% Mitral Valve MV Pk E: 1.02 MV Decel Time: 189.00 E'Lateral: 8.11 E'Medial: 7.14 E/E' Med: 14.30 E/E' Lat: 12.60 PHT: 55.00 MVA PHT: 4.00 Decel [place]: 5.41 MR Vol - PW Dopp: 2.88 MR VTI: 1.44 MR ERO: 2.00 MR Alias Raman: 0.39 MR RAD: 0.20 Aortic Valve AoV Pk Raman: 1.15 AoV Mn Raman: 0.88 AoV VTI: 0.22 AoV Pk Grad: 5.00 Aov Mn Grad: 3.00 STEVIE Cont.VTI: 2.18 LVOT LVOT Pk Raman: 0.79 LVOT Mn Raman: 0.61 LVOT VTI: 0.16 LVOT Pk Grad: 2.00 LVOT Mn Grad: 2.00 LVOT Diam: 2.00 LVOT Area: 3.14 Diastolic Function MV Pk E: 1.02 E'Medial: 7.14 E/E' Med: 14.30 E' Laterial: 8.11 E/E' Lat: 12.60 Right Ventricle TAPSE (mm): 14.70 TVS' Raman: 7.70 Tricuspid Valve TR Pk Raman: 2.20 TR Pk Grad: 19.00 RA Press: 15.00 RVSP: 34.00 Great Vessels Aorta Sinus of Valsalva: 3.10 2.0-3.5 cm Ao Asc: 3.00 2.1-3.4 cm Pulmonary Valve PV Pk Raman: 0.69 Peak PV Grad: 2.00 Updated in Other Vendor System with Status of Final rPem Adkins MD electronically signed on 11/03/2022 5:23:03 PM with status of Final
[2022-11-03] MEDS: levalbuterol HCL 1.25 MG/3 ML VIAL.NEB INHALE ×3 (07:41→19:59)
[2022-11-03 07:43] LABS: Glucose, Whole Blood 148 mg/dL (60-115)
[2022-11-03] MEDS: Losartan Potassium 50 MG TABLET 100 MG PO (07:58)
[2022-11-03] MEDS: Cholecalciferol (Vitamin D3) 25 MCG TABLET PO (07:58)
[2022-11-03] MEDS: Aspirin Enteric Coated 81 MG TABLET.DR PO (07:58)
[2022-11-03] MEDS: carvediloL 25 MG TABLET PO ×2 (07:58→21:32)
[2022-11-03] MEDS: Apixaban 5 MG TABLET PO ×2 (07:58→21:32)
[2022-11-03] MEDS: Atorvastatin Calcium 40 MG TABLET PO (07:58)
[2022-11-03] MEDS: Ascorbic Acid 500 MG TABLET PO (07:58)
[2022-11-03] MEDS: oxyBUTYnin chloride 5 MG TABLET PO ×2 (07:58→21:32)
[2022-11-03] MEDS: Furosemide 40 MG/4 ML VIAL IVPUSH (07:59)
[2022-11-03] MEDS: amLODIPine Besylate 10 MG TABLET PO (07:59)
[2022-11-03] MEDS: methylPREDNISolone Sod Succ 40 MG/ML VIAL IVPUSH ×2 (07:59→21:32)
[2022-11-03] MEDS: cefTRIAXone sodium 1 GM in 0.9 % Sodium Chloride 50 ML IV (07:59)
[2022-11-03 08:03] LABS: Hematocrit 37.8 % (37.0-47.0); Hemoglobin 11.6 g/dl (12.0-16.0); Mean Corpuscular HGB Conc 30.7 g/dl (31.0-35.0); Mean Corpuscular Hemoglobin 25.7 pg (27.0-33.0); Mean Corpuscular Volume 83.8 fL (80.0-98.0); Mean Platelet Volume 11.5 fL (9.4-12.3); Platelet Count 231 X10*3/uL (160-400); Red Blood Count 4.51 X10*6/uL (4.20-5.50); Red Cell Distribution Width 15.5 % (11.0-16.0); White Blood Count 6.9 X10*3/uL (4.8-10.8)
[2022-11-03] MEDS: Sennosides 8.6 MG TABLET PO (08:16)
--- NOTE | 2022-11-03 08:42 | MHC.CM.PN ---
CM met with Patient, her Daughter/HCP/MACHINE CEMENTER/Rina and Rina's Friend at bedside and addressed ASHLEY with the assist of Setswana translation (original ASHLEY given to Patient/Daughter and a copy has been placed on the chart). Patient lives alone in an apartment but her 3 Daughters and Son/HCP/Brandon are all involved and supportive. Patient receives 8 hours/day of [employer]/MACHINE C[employer]ER services and home/resume said services is the goal. CM has initiated and will follow for dc planning. Patient does not have a CPAP @ home. Patient has received Pfizer/Covid vax x4 and her PCP is Dr. Balta Jeffrey.
[2022-11-03] MEDS: Azithromycin 500 MG in 0.9 % Sodium Chloride 250 ML 125 MG IV (09:02)
[2022-11-03 09:59] LABS: Anion Gap 17 (12-20); Blood Urea Nitrogen 13 mg/dL (9-16); Calcium 9.3 mg/dL (8.4-10.2); Carbon Dioxide 25 mmol/L (22-29); Chloride 107 mmol/L (96-108); Creatinine Clr Calc Pharmacy 52.3; Estimated Glomerular Filt Rate > 60; Glucose Random 224 mg/dL (60-115); Potassium 3.8 mmol/L (3.3-5.1); Sodium 145 mmol/L (135-145)
--- NOTE | 2022-11-03 10:51 | MHC.CM.PN ---
Per ROUNDS discussion, Patient may need a Cardioversion and is not yet medically cleared for dc.
--- NOTE | 2022-11-03 11:05 | HO.PM.IMPN ---
Subjective Subjective Date of Service: 11/03/22 Interval History: feeling better Physical Exam Vital Signs: Vital Signs: Last Vital Signs Temp 98.9 F 11/03/22 07:11 Pulse 73 11/03/22 07:42 Resp 20 11/03/22 07:42 BP 129/66 11/03/22 07:11 Pulse Ox 95 11/03/22 07:11 O2 Del Method Room Air 11/03/22 07:11 BMI result Body Mass Index 39.0 General: AO X 3, no acute distress Resp: CTA bilateral, no accessory muscles used CVS: S1,S2,RRR GI: soft, non tender, non distended Neuro: motor grossly intact, alert Psych: appropriate affect, appropriate insight Objective Data Active Medications Acetaminophen (Acetaminophen 325 Mg Tablet) 650 mg PO Q6H PRN PRN Reason: Pain, Mild (Pain Scale 1-3) Albuterol/Ipratropium (Albuterol/Iprat 2.5/0.5mg 3 Ml Ampul.Neb) 3 ml INHALE RQ4H WHILE AWAKE PRN PRN Reason: Shortness of Breath/Wheezing Amlodipine Besylate (Amlodipine Besylate 10 Mg Tablet) 10 mg PO DAILY [facility]; Protocol Last Admin: 11/03/22 07:59 Dose: 10 mg Documented By: ARACELI Apixaban (Apixaban 5 Mg Tablet) 5 mg PO BID [facility] Last Admin: 11/03/22 07:58 Dose: 5 mg Documented By: ARACELI Ascorbic Acid (Ascorbic Acid 500 Mg Tablet) 500 mg PO DAILY [facility] Last Admin: 11/03/22 07:58 Dose: 500 mg Documented By: ARACELI Aspirin (Aspirin Enteric Coated 81 Mg Tablet.Dr) 81 mg PO DAILY [facility] Last Admin: 11/03/22 07:58 Dose: 81 mg Documented By: ARACELI Atorvastatin Calcium (Atorvastatin Calcium 40 Mg Tablet) 40 mg PO DAILY [facility] Last Admin: 11/03/22 07:58 Dose: 40 mg Documented By: ARACELI Carvedilol (Carvedilol 25 Mg Tablet) 25 mg PO BID [facility]; Protocol Last Admin: 11/03/22 07:58 Dose: 25 mg Documented By: ARACELI Cyanocobalamin (Cyanocobalamin (Vitamin B-12) 1,000 Mcg/Ml Vial) 1,000 mcg IM Q28D [facility] Fluticasone Propionate (Fluticasone Propionate Nasal 16 Gm [place]) 1 - 2 spray NOSTRIL-B DAILY PRN PRN Reason: Nasal Congestion Furosemide (Furosemide 40 Mg/4 Ml Vial) 40 mg IVPUSH DAILY [facility]; Protocol Last Admin: 11/03/22 07:59 Dose: 40 mg Documented By: ARACELI Glucose (Glucose Gel 15 Gm Gel..Gram.) 15 gm PO Q15M PRN; Protocol PRN Reason: per Hypoglycemia Standing Ord. Guaifenesin (Guaifenesin 200 Mg/10 Ml 10 Ml Liquid) 10 ml PO Q4H PRN PRN Reason: Cough Dextrose (D10) 250 mls @ 750 mls/hr IV Q15M PRN; Protocol PRN Reason: per Hypoglycemia Standing Ord. Ceftriaxone Sodium 1 gm/ (Sodium Chloride) 50 mls @ 100 mls/hr IV Q24H [facility] Stop: 11/06/22 08:49 Last Infusion: 11/03/22 08:48 Dose: 0 mls/hr Documented By: ARACELI Azithromycin 500 mg/ Sodium (Chloride) 250 mls @ 125 mls/hr IV Q24H [facility] Stop: 11/05/22 10:19 Last Infusion: 11/03/22 11:03 Dose: 0 mls/hr Documented By: ARACELI Insulin Human Lispro (Insulin Lispro 100 Unit/Ml 3 Ml Vial) 0 unit SUBCUT QIDACHS [facility]; Protocol Last Admin: 11/03/22 07:44 Dose: Not Given Documented By: ARACELI Non-Admin Reason: No Insulin Coverage Levalbuterol HCl (Levalbuterol Hcl 1.25 Mg/3 Ml Vial.Neb) 1.25 mg INHALE RQ4H WHILE AWAKE [facility] Last Admin: 11/03/22 11:02 Dose: Not Given Documented By: ULRICC Non-Admin Reason: pt not avial/echo Losartan Potassium (Losartan Potassium 50 Mg Tablet) 100 mg PO DAILY [facility]; Protocol Last Admin: 11/03/22 07:58 Dose: 100 mg Documented By: ARACELI Methylprednisolone Sodium Succinate (Methylprednisolone Sod Succ 40 Mg/Ml Vial) 40 mg IVPUSH Q12H [facility] Last Admin: 11/03/22 07:59 Dose: 40 mg Documented By: ARACELI Ondansetron HCl (Ondansetron Hcl 4 Mg/2 Ml Vial) 4 mg IVPUSH Q8H PRN PRN Reason: Nausea and Vomiting Oxybutynin Chloride (Oxybutynin Chloride 5 Mg Tablet) 5 mg PO BID [facility] Last Admin: 11/03/22 07:58 Dose: 5 mg Documented By: ARACELI Pharmacy Consult (Consult Rx Perform Med Rec) 1 each MISCELLANE ONCE PRN PRN Reason: Consult order Senna (Sennosides 8.6 Mg Tablet) 8.6 mg PO DAILY PRN PRN Reason: Constipation Last Admin: 11/03/22 08:16 Dose: 8.6 mg Documented By: ARACELI Vitamin D (Cholecalciferol (Vitamin D3) 25 Mcg Tablet) 25 mcg PO DAILY [facility] Last Admin: 11/03/22 07:58 Dose: 25 mcg Documented By: ARACELI Labs 11/03/22 06:56 11/03/22 09:05 Labs: Laboratory Results - last 24 hr 11/02/22 11/02/22 11/02/22 06:33 16:16 20:41 MCV MCH MCHC RDW Plt Count MPV Absolute Nucleated RBC Nucleated RBC % (auto) Anion Gap Estim Creat Clear Calc Estimated GFR POC Glucose 98 166 H Random Glucose Calcium Magnesium 1.7 TSH 4.08 H 11/03/22 11/03/22 11/03/22 06:56 07:31 09:05 MCV 83.8 MCH 25.7 L MCHC 30.7 L RDW 15.5 Plt Count 231 MPV 11.5 Absolute Nucleated RBC 0.000 Nucleated RBC % (auto) 0.0 Anion Gap 17 Estim Creat Clear Calc 52.3 Estimated GFR > 60 POC Glucose 148 H Random Glucose 224 H Calcium 9.3 Magnesium TSH Microbiology Microbiology Results: Microbiology 11/02/22 07:57 Blood Culture - Preliminary Blood - Venous No growth after 24 hours. 11/02/22 07:57 Blood Culture - Preliminary Blood - Venous No growth after 24 hours. Assessment and Plan (1) CHF exacerbation: Status: Acute Plan 68F PMH HFpEF, JOVANNI noncompliant with CPAP, mild intermittent asthma, GERD, hypertension, and [id number] type 2 diabetes presented with sob New onset atrial fibrillation eliquis, coreg ?CV HFpEF- with acute exacerbation Lasix 40mg IV daily Echo Noninsulin dependent type 2 diabetes without hyperglycemia -POC glucose -Diabetic diet -Humalog SSI -hold metformin HTN- reasonably controlled coreg, losartan Mild intermittent asthma- with mild acute exacerbation Wheezing likely multifactorial related to CHF exacerbation and asthma exacerbation IV methylprednisolone 40 mg b.i.d. DuoNebs q.4h prn while awake xopenex prn HLD continue statin DVT prophylaxis- initiate eliquis Full code reason for continued hospitalization:diuresis, sob Time Spent With Patient Time: Total time managing care of this patient today ____ minutes. Quality Stroke Does the patient have a stroke diagnosis?: No VTE Prior VTE?: No VTE Risk Level:: Medical - moderate - high VTE Device Contraindication: Treatment Not Indicated VTE Drug Contraindication: N/A - Med Ordered
[2022-11-03 11:59] LABS: Glucose, Whole Blood 175 mg/dL (60-115)
[2022-11-03] MEDS: Insulin Lispro 100 UNIT/ML 3 ML VIAL SUBCUT ×3 (12:15→21:32)
--- NOTE | 2022-11-03 14:04 | MHC.CM.PN ---
Patient has been switched from OBSERVATION to INPATIENT; CM met with Patient and her Daughter at bedside and addressed IMM with them(Providing them with the original and placing a copy on the chart).
--- NOTE | 2022-11-03 14:24 | PM.PNCARD ---
Subjective Subjective Date of Service: 11/03/22 Interval history: Seen examined at bedside. Still wheezing. Clinically overloaded. In atrial fibrillation. Physical Exam Vital Signs: Last Vital Signs Temp 98.9 F 11/03/22 11:14 Pulse 96 11/03/22 11:14 Resp 18 11/03/22 11:14 BP 118/64 11/03/22 11:14 Pulse Ox 94 11/03/22 11:14 O2 Del Method Room Air 11/03/22 11:14 BMI result Body Mass Index 39.0 GENERAL APPEARANCE: in no acute distress, pleasant. NECK: no carotid bruit, + jugular venous distention. SKIN: no suspicious lesions, warm and dry. HEART: no murmurs, irregular rate and rhythm. LUNGS: Mild expiratory wheezes. ABDOMEN: soft, nontender. EXTREMITIES: + edema. PERIPHERAL PULSES: equal. NEUROLOGIC: No gross deficits, AAO X 3 Objective Labs and Meds 11/03/22 06:56 11/03/22 09:05 Lab results: Laboratory Results - last 24 hr 11/02/22 11/02/22 11/03/22 16:16 20:41 06:56 WBC 6.9 RBC 4.51 Hgb 11.6 L Hct 37.8 MCV 83.8 MCH 25.7 L MCHC 30.7 L RDW 15.5 Plt Count 231 MPV 11.5 Absolute Nucleated RBC 0.000 Nucleated RBC % (auto) 0.0 Sodium Potassium Chloride Carbon Dioxide Anion Gap BUN Creatinine Estim Creat Clear Calc Estimated GFR POC Glucose 98 166 H Random Glucose Calcium 11/03/22 11/03/22 11/03/22 07:31 09:05 11:56 WBC RBC Hgb Hct MCV MCH MCHC RDW Plt Count MPV Absolute Nucleated RBC Nucleated RBC % (auto) Sodium 145 Potassium 3.8 Chloride 107 Carbon Dioxide 25 Anion Gap 17 BUN 13 Creatinine 0.89 Estim Creat Clear Calc 52.3 Estimated GFR > 60 POC Glucose 148 H 175 H Random Glucose 224 H Calcium 9.3 Imaging Radiologist's impression: Impressions Chest CT 11/02/22 13:27 IMPRESSION: Limited by motion. Bilateral diffuse interstitial prominence, right slightly worse than left. Differential diagnosis is extensive and includes, but is not limited to, pulmonary edema and/or chronic interstitial fibrotic changes. Small right pleural effusion with associated right basilar dependent airspace disease suggesting atelectasis and/or focal infiltrate. Mild cardiomegaly. Mild anasarca. Progress Note: A&P Assessment and plan (1) CHF exacerbation: Status: Acute (2) Atrial fibrillation: Status: Acute Plan Pleasant 76-year-old female with background diastolic heart failure who is presenting with new onset atrial fibrillation and congestive heart failure. Clinically she is still volume overloaded. Continue IV diuretics at this stage. Blood pressure control is good. She is on carvedilol 25 mg twice a day. I would avoid diltiazem. Please start her on digoxin 125 mcg on Tuesday and Tuesday. Depending on how she responds to diuretics we will decide whether we need to cardiovert her inpatient versus in 4-6 weeks. If she continues to stay symptomatic then she will need CLARITZA cardioversion. Thank you for allowing me to participate in the care of your patient. Please feel free to contact me if you have any questions. Time Spent With Patient Time: Total time managing care of this patient today ____ minutes. Progress Note: Quality Stroke Does the patient have a stroke diagnosis?: No Procedures Date of Service Date of Service: 11/03/22
[2022-11-03] MEDS: Docusate Sodium 100 MG CAPSULE PO (15:56)
[2022-11-03 16:01] LABS: Glucose, Whole Blood 165 mg/dL (60-115)
[2022-11-03 21:01] LABS: Glucose, Whole Blood 169 mg/dL (60-115)
[2022-11-04] VITALS (8 sets, daily range): BP systolic 118–143; BP diastolic 62–84; PULSE 87–101; RESP 17–22; TEMP 36.6–36.9; O2SAT 93–96
[2022-11-04 07:00] LABS: Hematocrit 35.2 % (37.0-47.0); Mean Corpuscular HGB Conc 31.3 g/dl (31.0-35.0); Mean Corpuscular Hemoglobin 25.8 pg (27.0-33.0); Mean Corpuscular Volume 82.4 fL (80.0-98.0); Mean Platelet Volume 10.6 fL (9.4-12.3); Platelet Count 283 X10*3/uL (160-400); Red Blood Count 4.27 X10*6/uL (4.20-5.50); Red Cell Distribution Width 15.5 % (11.0-16.0); White Blood Count 10.1 X10*3/uL (4.8-10.8)
[2022-11-04 07:16] LABS: Anion Gap 15 (12-20); Blood Urea Nitrogen 17 mg/dL (9-16); Calcium 9.6 mg/dL (8.4-10.2); Carbon Dioxide 27 mmol/L (22-29); Chloride 107 mmol/L (96-108); Creatinine Clr Calc Pharmacy 54.7; Estimated Glomerular Filt Rate > 60; Glucose Fasting 179 mg/dL (60-99); Sodium 145 mmol/L (135-145)
[2022-11-04 07:26] LABS: Glucose, Whole Blood 150 mg/dL (60-115)
[2022-11-04] MEDS: levalbuterol HCL 1.25 MG/3 ML VIAL.NEB INHALE ×4 (07:50→20:13)
[2022-11-04] MEDS: oxyBUTYnin chloride 5 MG TABLET PO ×2 (08:28→21:24)
[2022-11-04] MEDS: Atorvastatin Calcium 40 MG TABLET PO (08:28)
[2022-11-04] MEDS: methylPREDNISolone Sod Succ 40 MG/ML VIAL IVPUSH ×2 (08:28→21:25)
[2022-11-04] MEDS: Ascorbic Acid 500 MG TABLET PO (08:28)
[2022-11-04] MEDS: amLODIPine Besylate 10 MG TABLET PO (08:28)
[2022-11-04] MEDS: Furosemide 40 MG/4 ML VIAL IVPUSH (08:28)
[2022-11-04] MEDS: Losartan Potassium 50 MG TABLET 100 MG PO (08:28)
[2022-11-04] MEDS: carvediloL 25 MG TABLET PO ×2 (08:29→21:24)
[2022-11-04] MEDS: Cholecalciferol (Vitamin D3) 25 MCG TABLET PO (08:29)
[2022-11-04] MEDS: Apixaban 5 MG TABLET PO ×2 (08:29→21:24)
[2022-11-04] MEDS: Aspirin Enteric Coated 81 MG TABLET.DR PO (08:29)
[2022-11-04] MEDS: Digoxin 0.125 MG TABLET PO (08:44)
--- NOTE | 2022-11-04 08:57 | PM.PNCARD ---
Subjective Subjective Date of Service: 11/04/22 Interval history: Seen examined at bedside. Feeling better. Still has mild volume overload. Still complaining of some palpitations. In atrial fibrillation on telemetry. Physical Exam Vital Signs: Last Vital Signs Temp 98.1 F 11/04/22 07:08 Pulse 100 11/04/22 07:08 Resp 20 11/04/22 07:08 BP 130/74 11/04/22 07:08 Pulse Ox 93 11/04/22 07:08 O2 Del Method Room Air 11/04/22 07:08 BMI result Body Mass Index 39.0 GENERAL APPEARANCE: in no acute distress, pleasant. NECK: no carotid bruit, mild jugular venous distention. SKIN: no suspicious lesions, warm and dry. HEART: no murmurs, irregular rate and rhythm. LUNGS: Bibasilar crackles. ABDOMEN: soft, nontender. EXTREMITIES: + edema. PERIPHERAL PULSES: equal. NEUROLOGIC: No gross deficits, AAO X 3 Objective Labs and Meds 11/04/22 06:13 11/04/22 06:13 Lab results: Laboratory Results - last 24 hr 11/03/22 11/03/22 11/03/22 09:05 11:56 15:55 WBC RBC Hgb Hct MCV MCH MCHC RDW Plt Count MPV Absolute Nucleated RBC Nucleated RBC % (auto) Sodium 145 Potassium 3.8 Chloride 107 Carbon Dioxide 25 Anion Gap 17 BUN 13 Creatinine 0.89 Estim Creat Clear Calc 52.3 Estimated GFR > 60 POC Glucose 175 H 165 H Random Glucose 224 H Fasting Glucose Calcium 9.3 11/03/22 11/04/22 11/04/22 20:32 06:13 06:13 WBC 10.1 RBC 4.27 Hgb 11.0 L Hct 35.2 L MCV 82.4 MCH 25.8 L MCHC 31.3 RDW 15.5 Plt Count 283 MPV 10.6 Absolute Nucleated RBC 0.000 Nucleated RBC % (auto) 0.0 Sodium 145 Potassium 4.0 Chloride 107 Carbon Dioxide 27 Anion Gap 15 BUN 17 H Creatinine 0.85 Estim Creat Clear Calc 54.7 Estimated GFR > 60 POC Glucose 169 H Random Glucose Fasting Glucose 179 H Calcium 9.6 11/04/22 07:22 WBC RBC Hgb Hct MCV MCH MCHC RDW Plt Count MPV Absolute Nucleated RBC Nucleated RBC % (auto) Sodium Potassium Chloride Carbon Dioxide Anion Gap BUN Creatinine Estim Creat Clear Calc Estimated GFR POC Glucose 150 H Random Glucose Fasting Glucose Calcium Progress Note: A&P Assessment and plan (1) CHF exacerbation: Status: Acute (2) Atrial fibrillation: Status: Acute Plan 76-year-old female who is presenting with diastolic heart failure exacerbation in setting of new onset atrial fibrillation. On IV diuretics and diuresing well. I think she should stay on IV Lasix today. Started on digoxin 125 mcg every other day. I think we should give her couple of IV doses of digoxin. Giving her 250 mcg dose this morning. If her heart rate improves and she has no palpitations then I think we will not cardiovert her inpatient. In that scenario she can stay on Eliquis for 4-6 weeks and we can does bring her back as outpatient and cardiovert her. On the other hand if he continues to get palpitations and is quite distressed by them then we may have to pursue CLARITZA cardioversion. Keep her tentatively and p.o. for tomorrow and after reassessment will make a decision. Thank you for allowing me to participate in the care of your patient. Please feel free to contact me if you have any questions. Time Spent With Patient Time: Total time managing care of this patient today ____ minutes. Progress Note: Quality Stroke Does the patient have a stroke diagnosis?: No Procedures Date of Service Date of Service: 11/04/22
[2022-11-04] MEDS: Digoxin 0.5 MG/2 ML AMPUL 0.25 MG IVPUSH (09:50)
--- NOTE | 2022-11-04 10:16 | HO.PM.IMPN ---
Subjective Subjective Date of Service: 11/04/22 Interval History: feeling better Physical Exam Vital Signs: Vital Signs: Last Vital Signs Temp 98.1 F 11/04/22 07:08 Pulse 100 11/04/22 07:08 Resp 20 11/04/22 07:08 BP 130/74 11/04/22 07:08 Pulse Ox 93 11/04/22 07:08 O2 Del Method Room Air 11/04/22 07:08 BMI result Body Mass Index 39.0 GENERAL APPEARANCE: in no acute distress, pleasant. NECK: no carotid bruit, mild jugular venous distention. SKIN: no suspicious lesions, warm and dry. HEART: no murmurs, irregular rate and rhythm. LUNGS: Bibasilar crackles. ABDOMEN: soft, nontender. EXTREMITIES: + edema. PERIPHERAL PULSES: equal. NEUROLOGIC: No gross deficits, AAO X 3 Objective Data Active Medications Acetaminophen (Acetaminophen 325 Mg Tablet) 650 mg PO Q6H PRN PRN Reason: Pain, Mild (Pain Scale 1-3) Albuterol/Ipratropium (Albuterol/Iprat 2.5/0.5mg 3 Ml Ampul.Neb) 3 ml INHALE RQ4H WHILE AWAKE PRN PRN Reason: Shortness of Breath/Wheezing Amlodipine Besylate (Amlodipine Besylate 10 Mg Tablet) 10 mg PO DAILY [facility]; Protocol Last Admin: 11/04/22 08:28 Dose: 10 mg Documented By: ROSE Apixaban (Apixaban 5 Mg Tablet) 5 mg PO BID [facility] Last Admin: 11/04/22 08:29 Dose: 5 mg Documented By: ROSE Ascorbic Acid (Ascorbic Acid 500 Mg Tablet) 500 mg PO DAILY [facility] Last Admin: 11/04/22 08:28 Dose: 500 mg Documented By: ROSE Aspirin (Aspirin Enteric Coated 81 Mg Tablet.) 81 mg PO DAILY [facility] Last Admin: 11/04/22 08:29 Dose: 81 mg Documented By: ROSE Atorvastatin Calcium (Atorvastatin Calcium 40 Mg Tablet) 40 mg PO DAILY [facility] Last Admin: 11/04/22 08:28 Dose: 40 mg Documented By: ROSE Carvedilol (Carvedilol 25 Mg Tablet) 25 mg PO BID [facility]; Protocol Last Admin: 11/04/22 08:29 Dose: 25 mg Documented By: ROSE Cyanocobalamin (Cyanocobalamin (Vitamin B-12) 1,000 Mcg/Ml Vial) 1,000 mcg IM Q28D [facility] Digoxin (Digoxin 0.125 Mg Tablet) 0.125 mg PO Q2D [facility] Last Admin: 11/04/22 08:44 Dose: 0.125 mg Documented By: ROSE Docusate Sodium (Docusate Sodium 100 Mg Capsule) 100 mg PO BID PRN PRN Reason: Constipation Last Admin: 11/03/22 15:56 Dose: 100 mg Documented By: FOSJABARI Fluticasone Propionate (Fluticasone Propionate Nasal 16 Gm [place]) 1 - 2 spray NOSTRIL-B DAILY PRN PRN Reason: Nasal Congestion Furosemide (Furosemide 40 Mg/4 Ml Vial) 40 mg IVPUSH DAILY [facility]; Protocol Last Admin: 11/04/22 08:28 Dose: 40 mg Documented By: ROSE Glucose (Glucose Gel 15 Gm Gel..Gram.) 15 gm PO Q15M PRN; Protocol PRN Reason: per Hypoglycemia Standing Ord. Guaifenesin (Guaifenesin 200 Mg/10 Ml 10 Ml Liquid) 10 ml PO Q4H PRN PRN Reason: Cough Dextrose (D10) 250 mls @ 750 mls/hr IV Q15M PRN; Protocol PRN Reason: per Hypoglycemia Standing Ord. Insulin Human Lispro (Insulin Lispro 100 Unit/Ml 3 Ml Vial) 0 unit SUBCUT QIDACHS [facility]; Protocol Last Admin: 11/04/22 08:12 Dose: Not Given Documented By: ROSE Non-Admin Reason: No Insulin Coverage Levalbuterol HCl (Levalbuterol Hcl 1.25 Mg/3 Ml Vial.Neb) 1.25 mg INHALE RQ4H WHILE AWAKE [facility] Last Admin: 11/04/22 07:50 Dose: 1.25 mg Documented By: ALEX Losartan Potassium (Losartan Potassium 50 Mg Tablet) 100 mg PO DAILY [facility]; Protocol Last Admin: 11/04/22 08:28 Dose: 100 mg Documented By: ROSE Methylprednisolone Sodium Succinate (Methylprednisolone Sod Succ 40 Mg/Ml Vial) 40 mg IVPUSH Q12H [facility] Last Admin: 11/04/22 08:28 Dose: 40 mg Documented By: HO.[email or web address] Ondansetron HCl (Ondansetron Hcl 4 Mg/2 Ml Vial) 4 mg IVPUSH Q8H PRN PRN Reason: Nausea and Vomiting Oxybutynin Chloride (Oxybutynin Chloride 5 Mg Tablet) 5 mg PO BID [facility] Last Admin: 11/04/22 08:28 Dose: 5 mg Documented By: ROSE Pharmacy Consult (Consult Rx Perform Med Rec) 1 each MISCELLANE ONCE PRN PRN Reason: Consult order Senna (Sennosides 8.6 Mg Tablet) 8.6 mg PO DAILY PRN PRN Reason: Constipation Last Admin: 11/03/22 08:16 Dose: 8.6 mg Documented By: FOSTEKJaylene Vitamin D (Cholecalciferol (Vitamin D3) 25 Mcg Tablet) 25 mcg PO DAILY [facility] Last Admin: 11/04/22 08:29 Dose: 25 mcg Documented By: ROSE Labs 11/04/22 06:13 11/04/22 06:13 Labs: Laboratory Results - last 24 hr 11/03/22 11/03/22 11/03/22 11:56 15:55 20:32 MCV MCH MCHC RDW Plt Count MPV Absolute Nucleated RBC Nucleated RBC % (auto) Anion Gap Estim Creat Clear Calc Estimated GFR POC Glucose 175 H 165 H 169 H Fasting Glucose Calcium 11/04/22 11/04/22 11/04/22 06:13 06:13 07:22 MCV 82.4 MCH 25.8 L MCHC 31.3 RDW 15.5 Plt Count 283 MPV 10.6 Absolute Nucleated RBC 0.000 Nucleated RBC % (auto) 0.0 Anion Gap 15 Estim Creat Clear Calc 54.7 Estimated GFR > 60 POC Glucose 150 H Fasting Glucose 179 H Calcium 9.6 Microbiology Microbiology Results: Microbiology 11/02/22 07:57 Blood Culture - Preliminary Blood - Venous No growth after 48 hours. 11/02/22 07:57 Blood Culture - Preliminary Blood - Venous No growth after 48 hours. Assessment and Plan (1) CHF exacerbation: Status: Acute Plan 68F PMH HFpEF, JOVANNI noncompliant with CPAP, mild intermittent asthma, GERD, hypertension, and [id number] type 2 diabetes presented with sob New onset atrial fibrillation eliquis, coreg ?CV if symptomatic pneumonia unlikely continue to monitor off antibiotics HFpEF- with acute exacerbation Lasix 40mg IV daily Noninsulin dependent type 2 diabetes without hyperglycemia -POC glucose -Diabetic diet -Humalog SSI -hold metformin HTN- reasonably controlled coreg, losartan Mild intermittent asthma- with mild acute exacerbation Wheezing likely multifactorial related to CHF exacerbation and asthma exacerbation IV methylprednisolone 40 mg b.i.d. DuoNebs q.4h prn while awake xopenex prn HLD continue statin DVT prophylaxis- initiate eliquis Full code reason for continued hospitalization:diuresis, sob, afib uncontrolled Time Spent With Patient Time: Total time managing care of this patient today ____ minutes. Quality Stroke Does the patient have a stroke diagnosis?: No VTE Prior VTE?: No VTE Risk Level:: Medical - moderate - high VTE Device Contraindication: Treatment Not Indicated VTE Drug Contraindication: N/A - Med Ordered
[2022-11-04 11:27] LABS: Glucose, Whole Blood 231 mg/dL (60-115)
[2022-11-04] MEDS: Insulin Lispro 100 UNIT/ML 3 ML VIAL SUBCUT ×3 (12:31→21:25)
[2022-11-04 15:49] LABS: Glucose, Whole Blood 157 mg/dL (60-115)
[2022-11-04 20:20] LABS: Glucose, Whole Blood 198 mg/dL (60-115)
[2022-11-05] VITALS (11 sets, daily range): BP systolic 129–140; BP diastolic 60–81; PULSE 65–112; RESP 16–20; TEMP 36.1–37.1; O2SAT 94–98
[2022-11-05 05:10] LABS: Mean Corpuscular HGB Conc 31.6 g/dl (31.0-35.0); Mean Corpuscular Hemoglobin 26.1 pg (27.0-33.0); Mean Corpuscular Volume 82.8 fL (80.0-98.0); Mean Platelet Volume 10.5 fL (9.4-12.3); Platelet Count 269 X10*3/uL (160-400); Red Blood Count 4.59 X10*6/uL (4.20-5.50); Red Cell Distribution Width 15.4 % (11.0-16.0); White Blood Count 10.7 X10*3/uL (4.8-10.8)
[2022-11-05 05:26] LABS: Anion Gap 11 (12-20); Blood Urea Nitrogen 23 mg/dL (9-16); Calcium 9.3 mg/dL (8.4-10.2); Carbon Dioxide 29 mmol/L (22-29); Chloride 106 mmol/L (96-108); Creatinine Clr Calc Pharmacy 47.9; Estimated Glomerular Filt Rate 56; Glucose Fasting 228 mg/dL (60-99); Sodium 142 mmol/L (135-145)
[2022-11-05] MEDS: levalbuterol HCL 1.25 MG/3 ML VIAL.NEB INHALE ×3 (07:20→18:52)
[2022-11-05 07:46] LABS: Glucose, Whole Blood 184 mg/dL (60-115)
[2022-11-05] MEDS: carvediloL 25 MG TABLET PO ×2 (07:57→20:14)
[2022-11-05] MEDS: Aspirin Enteric Coated 81 MG TABLET.DR PO (07:57)
[2022-11-05] MEDS: Apixaban 5 MG TABLET PO ×2 (07:57→20:13)
[2022-11-05] MEDS: amLODIPine Besylate 10 MG TABLET PO (07:57)
[2022-11-05] MEDS: Losartan Potassium 50 MG TABLET 100 MG PO (07:57)
[2022-11-05] MEDS: Atorvastatin Calcium 40 MG TABLET PO (07:57)
[2022-11-05] MEDS: oxyBUTYnin chloride 5 MG TABLET PO ×2 (07:57→20:14)
[2022-11-05] MEDS: Ascorbic Acid 500 MG TABLET PO (07:57)
[2022-11-05] MEDS: Furosemide 40 MG/4 ML VIAL IVPUSH (07:58)
[2022-11-05] MEDS: methylPREDNISolone Sod Succ 40 MG/ML VIAL IVPUSH ×2 (07:58→20:14)
[2022-11-05] MEDS: Cholecalciferol (Vitamin D3) 25 MCG TABLET PO (07:58)
--- NOTE | 2022-11-05 09:18 | HO.PM.IMPN ---
Subjective Subjective Date of Service: 11/05/22 Interval History: feels well Physical Exam Vital Signs: Vital Signs: Last Vital Signs Temp 97.4 F 11/05/22 07:29 Pulse 109 H 11/05/22 07:29 Resp 20 11/05/22 07:29 BP 139/79 11/05/22 07:29 Pulse Ox 95 11/05/22 07:29 O2 Del Method Room Air 11/05/22 07:29 BMI result Body Mass Index 39.0 GENERAL APPEARANCE: in no acute distress, pleasant. NECK: no carotid bruit, mild jugular venous distention. SKIN: no suspicious lesions, warm and dry. HEART: no murmurs, irregular rate and rhythm. LUNGS: Bibasilar crackles. ABDOMEN: soft, nontender. EXTREMITIES: + edema. PERIPHERAL PULSES: equal. NEUROLOGIC: No gross deficits, AAO X 3 Objective Data Active Medications Acetaminophen (Acetaminophen 325 Mg Tablet) 650 mg PO Q6H PRN PRN Reason: Pain, Mild (Pain Scale 1-3) Albuterol/Ipratropium (Albuterol/Iprat 2.5/0.5mg 3 Ml Ampul.Neb) 3 ml INHALE RQ4H WHILE AWAKE PRN PRN Reason: Shortness of Breath/Wheezing Amlodipine Besylate (Amlodipine Besylate 10 Mg Tablet) 10 mg PO DAILY [facility]; Protocol Last Admin: 11/05/22 07:57 Dose: 10 mg Documented By: RASHMI Apixaban (Apixaban 5 Mg Tablet) 5 mg PO BID [facility] Last Admin: 11/05/22 07:57 Dose: 5 mg Documented By: RASHMI Ascorbic Acid (Ascorbic Acid 500 Mg Tablet) 500 mg PO DAILY [facility] Last Admin: 11/05/22 07:57 Dose: 500 mg Documented By: RASHMI Aspirin (Aspirin Enteric Coated 81 Mg Tablet.) 81 mg PO DAILY [facility] Last Admin: 11/05/22 07:57 Dose: 81 mg Documented By: RASHMI Atorvastatin Calcium (Atorvastatin Calcium 40 Mg Tablet) 40 mg PO DAILY [facility] Last Admin: 11/05/22 07:57 Dose: 40 mg Documented By: RASHMI Carvedilol (Carvedilol 25 Mg Tablet) 25 mg PO BID [facility]; Protocol Last Admin: 11/05/22 07:57 Dose: 25 mg Documented By: RASHMI Cyanocobalamin (Cyanocobalamin (Vitamin B-12) 1,000 Mcg/Ml Vial) 1,000 mcg IM Q28D [facility] Digoxin (Digoxin 0.125 Mg Tablet) 0.125 mg PO Q2D [facility] Last Admin: 11/04/22 08:44 Dose: 0.125 mg Documented By: ROSE Docusate Sodium (Docusate Sodium 100 Mg Capsule) 100 mg PO BID PRN PRN Reason: Constipation Last Admin: 11/03/22 15:56 Dose: 100 mg Documented By: ARACELI Fluticasone Propionate (Fluticasone Propionate Nasal 16 Gm [place]) 1 - 2 spray NOSTRIL-B DAILY PRN PRN Reason: Nasal Congestion Furosemide (Furosemide 40 Mg/4 Ml Vial) 40 mg IVPUSH DAILY [facility]; Protocol Last Admin: 11/05/22 07:58 Dose: 40 mg Documented By: RASHMI Glucose (Glucose Gel 15 Gm Gel..Gram.) 15 gm PO Q15M PRN; Protocol PRN Reason: per Hypoglycemia Standing Ord. Guaifenesin (Guaifenesin 200 Mg/10 Ml 10 Ml Liquid) 10 ml PO Q4H PRN PRN Reason: Cough Dextrose (D10) 250 mls @ 750 mls/hr IV Q15M PRN; Protocol PRN Reason: per Hypoglycemia Standing Ord. Insulin Human Lispro (Insulin Lispro 100 Unit/Ml 3 Ml Vial) 0 unit SUBCUT QIDACHS [facility]; Protocol Last Admin: 11/05/22 08:03 Dose: Not Given Documented By: RASHMI Non-Admin Reason: NPO Levalbuterol HCl (Levalbuterol Hcl 1.25 Mg/3 Ml Vial.Neb) 1.25 mg INHALE RQ4H WHILE AWAKE [facility] Last Admin: 11/05/22 07:20 Dose: 1.25 mg Documented By: KATERINA Losartan Potassium (Losartan Potassium 50 Mg Tablet) 100 mg PO DAILY [facility]; Protocol Last Admin: 11/05/22 07:57 Dose: 100 mg Documented By: RASHMI Methylprednisolone Sodium Succinate (Methylprednisolone Sod Succ 40 Mg/Ml Vial) 40 mg IVPUSH Q12H [facility] Last Admin: 11/05/22 07:58 Dose: 40 mg Documented By: RASHMI Ondansetron HCl (Ondansetron Hcl 4 Mg/2 Ml Vial) 4 mg IVPUSH Q8H PRN PRN Reason: Nausea and Vomiting Oxybutynin Chloride (Oxybutynin Chloride 5 Mg Tablet) 5 mg PO BID [facility] Last Admin: 11/05/22 07:57 Dose: 5 mg Documented By: RASHMI Pharmacy Consult (Consult Rx Perform Med Rec) 1 each MISCELLANE ONCE PRN PRN Reason: Consult order Senna (Sennosides 8.6 Mg Tablet) 8.6 mg PO DAILY PRN PRN Reason: Constipation Last Admin: 11/03/22 08:16 Dose: 8.6 mg Documented By: ARACELI Vitamin D (Cholecalciferol (Vitamin D3) 25 Mcg Tablet) 25 mcg PO DAILY [facility] Last Admin: 11/05/22 07:58 Dose: 25 mcg Documented By: RASHMI Labs 11/05/22 04:58 11/05/22 04:58 Labs: Laboratory Results - last 24 hr 11/04/22 11/04/22 11/04/22 11:23 15:42 19:37 MCV MCH MCHC RDW Plt Count MPV Absolute Nucleated RBC Nucleated RBC % (auto) Anion Gap Estim Creat Clear Calc Estimated GFR POC Glucose 231 H 157 H 198 H Fasting Glucose Calcium 11/05/22 11/05/22 11/05/22 04:58 04:58 07:35 MCV 82.8 MCH 26.1 L MCHC 31.6 RDW 15.4 Plt Count 269 MPV 10.5 Absolute Nucleated RBC 0.000 Nucleated RBC % (auto) 0.0 Anion Gap 11 L Estim Creat Clear Calc 47.9 Estimated GFR 56 POC Glucose 184 H Fasting Glucose 228 H Calcium 9.3 Microbiology Microbiology Results: Microbiology 11/02/22 07:57 Blood Culture - Preliminary Blood - Venous No growth after 48 hours. 11/02/22 07:57 Blood Culture - Preliminary Blood - Venous No growth after 48 hours. Assessment and Plan (1) CHF exacerbation: Status: Acute Plan 68F PMH HFpEF, JOVANNI noncompliant with CPAP, mild intermittent asthma, GERD, hypertension, and [id number] type 2 diabetes presented with sob New onset atrial fibrillation eliquis, coreg, dig q2d ?CV if symptomatic pneumonia unlikely continue to monitor off antibiotics HFpEF- with acute exacerbation Lasix 40mg IV daily Noninsulin dependent type 2 diabetes without hyperglycemia -POC glucose -Diabetic diet -Humalog SSI -hold metformin HTN- reasonably controlled coreg, losartan Mild intermittent asthma- with mild acute exacerbation Wheezing likely multifactorial related to CHF exacerbation and asthma exacerbation IV methylprednisolone 40 mg b.i.d. DuoNebs q.4h prn while awake xopenex prn HLD continue statin DVT prophylaxis- initiate eliquis Full code reason for continued hospitalization:diuresis, sob, afib uncontrolled Time Spent With Patient Time: Total time managing care of this patient today ____ minutes. Quality Stroke Does the patient have a stroke diagnosis?: No VTE Prior VTE?: No VTE Risk Level:: Medical - moderate - high VTE Device Contraindication: Treatment Not Indicated VTE Drug Contraindication: N/A - Med Ordered
[2022-11-05 11:41] LABS: Glucose, Whole Blood 177 mg/dL (60-115)
--- NOTE | 2022-11-05 13:50 | P.CONAN_ITS ---
HPI - Anesthesia Eval Consult details Narrative: chf/Afib/htn for cardioversion after Damian PMFSH Active Problems Active Problems: All Active Problems (Updated 11/02/22 @ 15:14 by MIROSLAVA Fontaine) CHF exacerbation (Acute) Pneumonia (Acute) Atrial fibrillation (Acute) Urinary urgency (Acute) Urinary incontinence (Acute) History of arthroplasty of right knee (Acute) Hypertension (Acute) Chronic diastolic heart failure (Acute) Lymphedema (Acute) Varicose veins of right lower extremity with inflammation (Acute) Status post total knee replacement, right (Acute) Preop cardiovascular exam (Acute) Osteoarthritis of right knee (Acute) Past Medical History Medical History (Updated 11/02/22 @ 15:14 by MIROSLAVA Fontaine) MARIA R (acute kidney injury) Asthma Chronic diastolic heart failure Diabetes GERD (gastroesophageal reflux disease) Hyperlipidemia Hypertension JOVANNI (obstructive sleep apnea) Osteoarthritis Family History Family History Father HTN (hypertension) Mother HTN (hypertension) CVD (cardiovascular disease) Daughter Bone cancer Father Cancer Family history of problems with anesthesia: No Surgical History Surgical History H/O: hysterectomy History of salpingoophorectomy History of tonsillectomy Hx of colonoscopy History of Problems with Anesthesia: No Social History Social History Household Members: Family Housing: House Are you a primary neonatal critical care nurse to a significant other at home: No Do you presently have visiting nurse or other home services: Yes Unable to assess alcohol history related to: Unknown Alcohol intake: never Patient Tobacco Use Status: Never used Tobacco Smoked in Last 30 Days: No Second Hand Smoke Exposure: No Use of substances other than those prescribed or required for medical reasons: No Currently Displaying Signs/Symptoms of Drug Intoxication Withdrawal: No Have you been hit, kicked, punched, or otherwise hurt by someone within the past year? If so, by whom?: No Do you feel safe in your current relationship?: No Is there a partner from a previous relationship who is making you feel unsafe now?: No Are you made to feel afraid or neglected: No Advance Directives: No Advance Directives Information Provided: Yes Do you have thoughts of harming others: None Do you have a plan to hurt others: No Plan Recently lost weight without trying: No Patient : No : No Poor oral hygiene: No service: No Current occupational status: retired Current occupation: Right handed Meds Allergies Allergy/AdvReac Type Severity Reaction Status Date / Time Penicillins [PENICILLINS] Allergy Intermediate NAUSEA/HIVE Verified 10/11/22 14:12 S Active Medications: Current Medications Acetaminophen (Acetaminophen 325 Mg Tablet) 650 mg PO Q6H PRN PRN Reason: Pain, Mild (Pain Scale 1-3) Albuterol/Ipratropium (Albuterol/Iprat 2.5/0.5mg 3 Ml Ampul.Neb) 3 ml INHALE RQ4H WHILE AWAKE PRN PRN Reason: Shortness of Breath/Wheezing Amlodipine Besylate (Amlodipine Besylate 10 Mg Tablet) 10 mg PO DAILY [facility]; Protocol Last Admin: 11/05/22 07:57 Dose: 10 mg Apixaban (Apixaban 5 Mg Tablet) 5 mg PO BID [facility] Last Admin: 11/05/22 07:57 Dose: 5 mg Ascorbic Acid (Ascorbic Acid 500 Mg Tablet) 500 mg PO DAILY [facility] Last Admin: 11/05/22 07:57 Dose: 500 mg Aspirin (Aspirin Enteric Coated 81 Mg Tablet.Dr) 81 mg PO DAILY [facility] Last Admin: 11/05/22 07:57 Dose: 81 mg Atorvastatin Calcium (Atorvastatin Calcium 40 Mg Tablet) 40 mg PO DAILY [facility] Last Admin: 11/05/22 07:57 Dose: 40 mg Carvedilol (Carvedilol 25 Mg Tablet) 25 mg PO BID [facility]; Protocol Last Admin: 11/05/22 07:57 Dose: 25 mg Cyanocobalamin (Cyanocobalamin (Vitamin B-12) 1,000 Mcg/Ml Vial) 1,000 mcg IM Q28D [facility] Digoxin (Digoxin 0.125 Mg Tablet) 0.125 mg PO Q2D [facility] Last Admin: 11/04/22 08:44 Dose: 0.125 mg Docusate Sodium (Docusate Sodium 100 Mg Capsule) 100 mg PO BID PRN PRN Reason: Constipation Last Admin: 11/03/22 15:56 Dose: 100 mg Fluticasone Propionate (Fluticasone Propionate Nasal 16 Gm Conifer) 1 - 2 spray NOSTRIL-B DAILY PRN PRN Reason: Nasal Congestion Furosemide (Furosemide 40 Mg/4 Ml Vial) 40 mg IVPUSH DAILY [facility]; Protocol Last Admin: 11/05/22 07:58 Dose: 40 mg Glucose (Glucose Gel 15 Gm Gel..Gram.) 15 gm PO Q15M PRN; Protocol PRN Reason: per Hypoglycemia Standing Ord. Guaifenesin (Guaifenesin 200 Mg/10 Ml 10 Ml Liquid) 10 ml PO Q4H PRN PRN Reason: Cough Dextrose (D10) 250 mls @ 750 mls/hr IV Q15M PRN; Protocol PRN Reason: per Hypoglycemia Standing Ord. Insulin Human Lispro (Insulin Lispro 100 Unit/Ml 3 Ml Vial) 0 unit SUBCUT QIDACHS [facility]; Protocol Last Admin: 11/05/22 11:41 Dose: Not Given Levalbuterol HCl (Levalbuterol Hcl 1.25 Mg/3 Ml Vial.Neb) 1.25 mg INHALE RQ4H WHILE AWAKE [facility] Last Admin: 11/05/22 11:11 Dose: Not Given Losartan Potassium (Losartan Potassium 50 Mg Tablet) 100 mg PO DAILY [facility]; Protocol Last Admin: 11/05/22 07:57 Dose: 100 mg Methylprednisolone Sodium Succinate (Methylprednisolone Sod Succ 40 Mg/Ml Vial) 40 mg IVPUSH Q12H BENJIE Last Admin: 11/05/22 07:58 Dose: 40 mg Ondansetron HCl (Ondansetron Hcl 4 Mg/2 Ml Vial) 4 mg IVPUSH Q8H PRN PRN Reason: Nausea and Vomiting Oxybutynin Chloride (Oxybutynin Chloride 5 Mg Tablet) 5 mg PO BID [facility] Last Admin: 11/05/22 07:57 Dose: 5 mg Pharmacy Consult (Consult Rx Perform Med Rec) 1 each MISCELLANE ONCE PRN PRN Reason: Consult order Senna (Sennosides 8.6 Mg Tablet) 8.6 mg PO DAILY PRN PRN Reason: Constipation Last Admin: 11/03/22 08:16 Dose: 8.6 mg Vitamin D (Cholecalciferol (Vitamin D3) 25 Mcg Tablet) 25 mcg PO DAILY [facility] Last Admin: 11/05/22 07:58 Dose: 25 mcg Home Medications Medication Instructions Recorded Confirmed Last Taken Type oxybutynin chloride 5 mg tablet 5 mg PO BID 05/15/20 11/02/22 11/01/22 History ranitidine HCl 300 mg tablet 300 mg PO BEDTIME 05/15/20 11/02/22 11/01/22 History calcium carbonate 600 mg calcium 1 tab PO DAILY 03/24/21 11/02/22 11/01/22 History (1,500 mg) tablet cholecalciferol (vitamin D3) 25 1 tab PO QAM 03/24/21 11/02/22 11/01/22 History mcg (1,000 unit) tablet fluticasone propionate 50 1 - 2 spray intranasal DAILY PRN 03/24/21 11/02/22 11/01/22 History mcg/actuation nasal Nasal Congestion spray,suspension metformin 500 mg tablet 0.5 tab PO BID 03/24/21 11/02/22 11/01/22 History sennosides 8.6 mg tablet (Senna 1 tab PO DAILY PRN Constipation 05/28/21 11/02/22 11/01/22 History Laxative) ascorbic acid (vitamin C) 500 mg 500 mg PO DAILY 03/08/22 11/02/22 11/01/22 History tablet (Vitamin C) ferrous gluconate 324 mg (38 mg 324 mg PO DAILY 03/08/22 11/02/22 11/01/22 History iron) tablet cyanocobalamin (vitamin B-12) 1,000 mcg IM Q28D 11/02/22 11/02/22 11/01/22 History 1,000 mcg/mL injection solution furosemide 20 mg tablet 20 mg PO DAILY 11/02/22 11/02/22 11/01/22 History Exam Exam Date and Time: November 05, 2022 1350 Height,Weight and Vital Signs: Height 5 ft Weight 90.718 kg Last Vital Signs Temp 97 F 11/05/22 11:01 Pulse 110 H 11/05/22 11:01 Resp 20 11/05/22 11:01 BP 140/81 H 11/05/22 11:01 Pulse Ox 96 11/05/22 11:01 O2 Del Method Room Air 11/05/22 11:01 Pertinent Lab Results Pertinent Lab Results: Laboratory Tests 11/02/22 11/02/22 11/02/22 06:06 06:06 06:06 WBC 7.9 RBC 4.18 L Hgb 11.2 L Hct 35.4 L D MCV 84.7 MCH 26.8 L MCHC 31.6 RDW 15.7 Plt Count 253 MPV 10.2 Immature Gran % (Auto) 0.4 Neut % (Auto) 78.5 H Lymph % (Auto) 10.6 L Davidson % (Auto) 7.8 Eos % (Auto) 2.4 Baso % (Auto) 0.3 Lymph # (Auto) 0.8 L Davidson # (Auto) 0.6 Eos # (Auto) 0.2 Baso # (Auto) 0.0 Abs Immat Gran (auto) 0.03 Absolute Neuts (auto) 6.2 Absolute Nucleated RBC 0.000 Nucleated RBC % (auto) 0.0 Sodium Potassium Chloride Carbon Dioxide Anion Gap BUN Creatinine Estim Creat Clear Calc Estimated GFR POC Glucose Random Glucose Fasting Glucose Lactic Acid Calcium Magnesium Troponin I High Sens < 2.7 B-Natriuretic Peptide 220 H TSH Influenza Type A (PCR) Influenza Type B (PCR) RSV RNA Qual (PCR) SARS-CoV-2 RNA (RT-PCR) 11/02/22 11/02/22 11/02/22 06:33 07:57 08:02 WBC RBC Hgb Hct MCV MCH MCHC RDW Plt Count MPV Immature Gran % (Auto) Neut % (Auto) Lymph % (Auto) Davidson % (Auto) Eos % (Auto) Baso % (Auto) Lymph # (Auto) Davidson # (Auto) Eos # (Auto) Baso # (Auto) Abs Immat Gran (auto) Absolute Neuts (auto) Absolute Nucleated RBC Nucleated RBC % (auto) Sodium 148 H Potassium 3.7 Chloride 109 H Carbon Dioxide 27 Anion Gap 16 BUN 12 Creatinine 0.89 Estim Creat Clear Calc 52.3 Estimated GFR > 60 POC Glucose Random Glucose 143 H Fasting Glucose Lactic Acid 1.0 Calcium 9.4 Magnesium 1.7 Troponin I High Sens B-Natriuretic Peptide TSH 4.08 H Influenza Type A (PCR) NEGATIVE Influenza Type B (PCR) NEGATIVE RSV RNA Qual (PCR) NEGATIVE SARS-CoV-2 RNA (RT-PCR) NEGATIVE 11/02/22 11/02/22 11/03/22 16:16 20:41 06:56 WBC 6.9 RBC 4.51 Hgb 11.6 L Hct 37.8 MCV 83.8 MCH 25.7 L MCHC 30.7 L RDW 15.5 Plt Count 231 MPV 11.5 Immature Gran % (Auto) Neut % (Auto) Lymph % (Auto) Davidson % (Auto) Eos % (Auto) Baso % (Auto) Lymph # (Auto) Davidson # (Auto) Eos # (Auto) Baso # (Auto) Abs Immat Gran (auto) Absolute Neuts (auto) Absolute Nucleated RBC 0.000 Nucleated RBC % (auto) 0.0 Sodium Potassium Chloride Carbon Dioxide Anion Gap BUN Creatinine Estim Creat Clear Calc Estimated GFR POC Glucose 98 166 H Random Glucose Fasting Glucose Lactic Acid Calcium Magnesium Troponin I High Sens B-Natriuretic Peptide TSH Influenza Type A (PCR) Influenza Type B (PCR) RSV RNA Qual (PCR) SARS-CoV-2 RNA (RT-PCR) 11/03/22 11/03/22 11/03/22 07:31 09:05 11:56 WBC RBC Hgb Hct MCV MCH MCHC RDW Plt Count MPV Immature Gran % (Auto) Neut % (Auto) Lymph % (Auto) Davidson % (Auto) Eos % (Auto) Baso % (Auto) Lymph # (Auto) Davidson # (Auto) Eos # (Auto) Baso # (Auto) Abs Immat Gran (auto) Absolute Neuts (auto) Absolute Nucleated RBC Nucleated RBC % (auto) Sodium 145 Potassium 3.8 Chloride 107 Carbon Dioxide 25 Anion Gap 17 BUN 13 Creatinine 0.89 Estim Creat Clear Calc 52.3 Estimated GFR > 60 POC Glucose 148 H 175 H Random Glucose 224 H Fasting Glucose Lactic Acid Calcium 9.3 Magnesium Troponin I High Sens B-Natriuretic Peptide TSH Influenza Type A (PCR) Influenza Type B (PCR) RSV RNA Qual (PCR) SARS-CoV-2 RNA (RT-PCR) 11/03/22 11/03/22 11/04/22 15:55 20:32 06:13 WBC 10.1 RBC 4.27 Hgb 11.0 L Hct 35.2 L MCV 82.4 MCH 25.8 L MCHC 31.3 RDW 15.5 Plt Count 283 MPV 10.6 Immature Gran % (Auto) Neut % (Auto) Lymph % (Auto) Davidson % (Auto) Eos % (Auto) Baso % (Auto) Lymph # (Auto) Davidson # (Auto) Eos # (Auto) Baso # (Auto) Abs Immat Gran (auto) Absolute Neuts (auto) Absolute Nucleated RBC 0.000 Nucleated RBC % (auto) 0.0 Sodium Potassium Chloride Carbon Dioxide Anion Gap BUN Creatinine Estim Creat Clear Calc Estimated GFR POC Glucose 165 H 169 H Random Glucose Fasting Glucose Lactic Acid Calcium Magnesium Troponin I High Sens B-Natriuretic Peptide TSH Influenza Type A (PCR) Influenza Type B (PCR) RSV RNA Qual (PCR) SARS-CoV-2 RNA (RT-PCR) 11/04/22 11/04/22 11/04/22 06:13 07:22 11:23 WBC RBC Hgb Hct MCV MCH MCHC RDW Plt Count MPV Immature Gran % (Auto) Neut % (Auto) Lymph % (Auto) Davidson % (Auto) Eos % (Auto) Baso % (Auto) Lymph # (Auto) Davidson # (Auto) Eos # (Auto) Baso # (Auto) Abs Immat Gran (auto) Absolute Neuts (auto) Absolute Nucleated RBC Nucleated RBC % (auto) Sodium 145 Potassium 4.0 Chloride 107 Carbon Dioxide 27 Anion Gap 15 BUN 17 H Creatinine 0.85 Estim Creat Clear Calc 54.7 Estimated GFR > 60 POC Glucose 150 H 231 H Random Glucose Fasting Glucose 179 H Lactic Acid Calcium 9.6 Magnesium Troponin I High Sens B-Natriuretic Peptide TSH Influenza Type A (PCR) Influenza Type B (PCR) RSV RNA Qual (PCR) SARS-CoV-2 RNA (RT-PCR) 11/04/22 11/04/22 11/05/22 15:42 19:37 04:58 WBC 10.7 RBC 4.59 Hgb 12.0 Hct 38.0 MCV 82.8 MCH 26.1 L MCHC 31.6 RDW 15.4 Plt Count 269 MPV 10.5 Immature Gran % (Auto) Neut % (Auto) Lymph % (Auto) Davidson % (Auto) Eos % (Auto) Baso % (Auto) Lymph # (Auto) Davidson # (Auto) Eos # (Auto) Baso # (Auto) Abs Immat Gran (auto) Absolute Neuts (auto) Absolute Nucleated RBC 0.000 Nucleated RBC % (auto) 0.0 Sodium Potassium Chloride Carbon Dioxide Anion Gap BUN Creatinine Estim Creat Clear Calc Estimated GFR POC Glucose 157 H 198 H Random Glucose Fasting Glucose Lactic Acid Calcium Magnesium Troponin I High Sens B-Natriuretic Peptide TSH Influenza Type A (PCR) Influenza Type B (PCR) RSV RNA Qual (PCR) SARS-CoV-2 RNA (RT-PCR) 11/05/22 11/05/22 11/05/22 04:58 07:35 11:05 WBC RBC Hgb Hct MCV MCH MCHC RDW Plt Count MPV Immature Gran % (Auto) Neut % (Auto) Lymph % (Auto) Davidson % (Auto) Eos % (Auto) Baso % (Auto) Lymph # (Auto) Davidson # (Auto) Eos # (Auto) Baso # (Auto) Abs Immat Gran (auto) Absolute Neuts (auto) Absolute Nucleated RBC Nucleated RBC % (auto) Sodium 142 Potassium 4.0 Chloride 106 Carbon Dioxide 29 Anion Gap 11 L BUN 23 H Creatinine 0.97 Estim Creat Clear Calc 47.9 Estimated GFR 56 POC Glucose 184 H 177 H Random Glucose Fasting Glucose 228 H Lactic Acid Calcium 9.3 Magnesium Troponin I High Sens B-Natriuretic Peptide TSH Influenza Type A (PCR) Influenza Type B (PCR) RSV RNA Qual (PCR) SARS-CoV-2 RNA (RT-PCR) Airway Mallampati Class: II TM Dist: >3cm Neck ROM: Full Heart: afib Lungs: cta Assessment and Plan Assessment Anesthesia Assessment: Anesthesia Plan Discussed and Chart Reviewed Final Anesthetic Review Family History of Problems with Anesthesia: No History of Problems with Anesthesia: No NPO: Yes ASA Class: III and Emergency Final Preanesthetic Review: No Changes in Pt Med Stat, Meds/Allgs Chart Reviewed, Consent Obtained/Reviewed and Anes Risks/Benef Reviewed Patient Risk: Intermediate Procedure Risk: Low Anesthetic Plan Anesthetic Plan: MAC: Disposition: Standard PACU
--- NOTE | 2022-11-05 13:51 | CA_ITS ---
Transesophageal Echocardiogram Patient (Last, First, Middle): Victorina Francois E Gender: Female Date of : 1945 Age: 76 Procedure Date: 11/05/2022 Procedure Type: Transesophageal Echocardiogram Location: [facility] – [place] Height: 152.4 cm Weight: 90.72 kg BSA: 1.87 m2 Heart Rate: bpm BP: 127 / 97 mmHg Dining Car Conductor: MARBIN Referring MD: Prem Adkins MD Symptoms: AFIB, CARDIOVERSION Conclusion: ??? Limited transesophageal echocardiogram performed because patient developed hypoxia after sedation. We quickly assess the left atrial appendage for thrombus which was the main reason for performing a transesophageal echocardiogram in this patient. There was no evidence of left atrial or left atrial appendage thrombus. ??? We concluded the procedure and after respiratory improvement we proceeded with cardioversion. Findings Procedure Information Consent was obtained prior to the procedure. Pre CLARITZA oral cavity was checked and revealed no overcrowding. The probe was passed with no difficulty. Left Ventricle Normal left ventricular size and systolic function. Right Ventricle Normal right ventricular cavity size and systolic function. Atria No obvious thrombus in the left atrium and the left atrial appendage. Prior Study Comparison No prior study available for comparison. Updated by Prem Adkins on 09:14 AM with Status of Final Prem Adkins MD electronically signed on 11/06/2022 9:14:34 AM with status of Final
--- NOTE | 2022-11-05 13:59 | PM.PNCARD ---
Subjective Subjective Date of Service: 11/05/22 Interval history: Seen examined at bedside on 11/05/2022. Note could not be related to some technical issues with [employer]. She was seen before cardioversion. She was feeling better and had no significant shortness of breath. Continued to have atrial fibrillation with rapid ventricular response. Physical Exam Vital Signs: Last Vital Signs Temp 97 F 11/05/22 11:01 Pulse 110 H 11/05/22 11:01 Resp 20 11/05/22 11:01 BP 140/81 H 11/05/22 11:01 Pulse Ox 96 11/05/22 11:01 O2 Del Method Room Air 11/05/22 11:01 BMI result Body Mass Index 39.0 GENERAL APPEARANCE: in no acute distress, pleasant. NECK: no carotid bruit, no significant jugular venous distention. SKIN: no suspicious lesions, warm and dry. HEART: no murmurs, irregular rate and rhythm. LUNGS: Clear to auscultation. ABDOMEN: soft, nontender. EXTREMITIES: Mild edema. PERIPHERAL PULSES: equal. NEUROLOGIC: No gross deficits, AAO X 3 Objective Labs and Meds 11/05/22 04:58 11/05/22 04:58 Lab results: Laboratory Results - last 24 hr 11/04/22 11/04/22 11/05/22 15:42 19:37 04:58 WBC 10.7 RBC 4.59 Hgb 12.0 Hct 38.0 MCV 82.8 MCH 26.1 L MCHC 31.6 RDW 15.4 Plt Count 269 MPV 10.5 Absolute Nucleated RBC 0.000 Nucleated RBC % (auto) 0.0 Sodium Potassium Chloride Carbon Dioxide Anion Gap BUN Creatinine Estim Creat Clear Calc Estimated GFR POC Glucose 157 H 198 H Fasting Glucose Calcium 11/05/22 11/05/22 11/05/22 04:58 07:35 11:05 WBC RBC Hgb Hct MCV MCH MCHC RDW Plt Count MPV Absolute Nucleated RBC Nucleated RBC % (auto) Sodium 142 Potassium 4.0 Chloride 106 Carbon Dioxide 29 Anion Gap 11 L BUN 23 H Creatinine 0.97 Estim Creat Clear Calc 47.9 Estimated GFR 56 POC Glucose 184 H 177 H Fasting Glucose 228 H Calcium 9.3 Progress Note: A&P Assessment and plan (1) CHF exacerbation: Status: Acute (2) Atrial fibrillation: Status: Acute Plan Pleasant 76-year-old female with atrial fibrillation with rapid ventricular response and diastolic heart failure. She was diuresed and has improved significantly. Rate control has been a challenge and I think she would not tolerate atrial fibrillation with her background diastolic heart failure. Our plan is to do CLARITZA cardioversion today 11/05/2022. Continue Eliquis as before. Post cardioversion if the the chief sinus rhythm then p.o. digoxin should be discontinued. Thank you for allowing me to participate in the care of your patient. Please feel free to contact me if you have any questions. Time Spent With Patient Time: Total time managing care of this patient today ____ minutes. Progress Note: Quality Stroke Does the patient have a stroke diagnosis?: No Procedures Date of Service Date of Service: 11/05/22
[2022-11-05 15:56] LABS: Glucose, Whole Blood 199 mg/dL (60-115)
[2022-11-05] MEDS: Insulin Lispro 100 UNIT/ML 3 ML VIAL SUBCUT ×2 (16:49→20:21)
[2022-11-05 20:16] LABS: Glucose, Whole Blood 367 mg/dL (60-115)
[2022-11-06] VITALS: BP 121/65; PULSE 65; RESP 18; TEMP 36.8; O2SAT 96
[2022-11-06 03:37] VITALS: BP 132/63; PULSE 68; RESP 16; TEMP 36.4; O2SAT 96
[2022-11-06 06:39] LABS: Hematocrit 41.1 % (37.0-47.0); Mean Corpuscular HGB Conc 31.6 g/dl (31.0-35.0); Mean Corpuscular Hemoglobin 26.7 pg (27.0-33.0); Mean Corpuscular Volume 84.4 fL (80.0-98.0); Mean Platelet Volume 11.1 fL (9.4-12.3); Platelet Count 253 X10*3/uL (160-400); Red Blood Count 4.87 X10*6/uL (4.20-5.50); Red Cell Distribution Width 15.2 % (11.0-16.0); White Blood Count 9.5 X10*3/uL (4.8-10.8)
[2022-11-06 06:53] LABS: Anion Gap 16 (12-20); Blood Urea Nitrogen 31 mg/dL (9-16); Calcium 9.2 mg/dL (8.4-10.2); Carbon Dioxide 27 mmol/L (22-29); Chloride 105 mmol/L (96-108); Creatinine Clr Calc Pharmacy 45.1; Estimated Glomerular Filt Rate 52; Glucose Fasting 192 mg/dL (60-99); Potassium 3.8 mmol/L (3.3-5.1); Sodium 144 mmol/L (135-145)
[2022-11-06 07:07] VITALS: BP 153/72; PULSE 68; RESP 20; TEMP 36.2; O2SAT 96
[2022-11-06 08:06] VITALS: PULSE 86; RESP 18; O2SAT 94
[2022-11-06] MEDS: levalbuterol HCL 1.25 MG/3 ML VIAL.NEB INHALE (08:06)
[2022-11-06] MEDS: methylPREDNISolone Sod Succ 40 MG/ML VIAL IVPUSH (08:11)
[2022-11-06] MEDS: Insulin Lispro 100 UNIT/ML 3 ML VIAL SUBCUT (08:11)
[2022-11-06] MEDS: Furosemide 40 MG/4 ML VIAL IVPUSH (08:11)
[2022-11-06] MEDS: Acetaminophen 325 MG TABLET 650 MG PO (08:11)
[2022-11-06] MEDS: Cholecalciferol (Vitamin D3) 25 MCG TABLET PO (08:12)
[2022-11-06] MEDS: Atorvastatin Calcium 40 MG TABLET PO (08:12)
[2022-11-06] MEDS: oxyBUTYnin chloride 5 MG TABLET PO (08:12)
[2022-11-06] MEDS: Aspirin Enteric Coated 81 MG TABLET.DR PO (08:12)
[2022-11-06] MEDS: Ascorbic Acid 500 MG TABLET PO (08:12)
[2022-11-06] MEDS: carvediloL 25 MG TABLET PO (08:12)
[2022-11-06] MEDS: Losartan Potassium 50 MG TABLET 100 MG PO (08:12)
[2022-11-06] MEDS: amLODIPine Besylate 10 MG TABLET PO (08:12)
[2022-11-06] MEDS: Apixaban 5 MG TABLET PO (08:12)
[2022-11-06 08:18] LABS: Glucose, Whole Blood 170 mg/dL (60-115)
--- NOTE | 2022-11-06 08:35 | PM.PNCARD ---
Subjective Subjective Date of Service: 11/06/22 Interval history: Seen examined at bedside. Status post cardioversion and sinus rhythm. Feeling better. Physical Exam Vital Signs: Last Vital Signs Temp 97.1 F 11/06/22 07:07 Pulse 86 11/06/22 08:06 Resp 18 11/06/22 08:06 BP 153/72 H 11/06/22 07:07 Pulse Ox 96 11/06/22 07:07 O2 Del Method Room Air 11/06/22 07:07 O2 Flow Rate 2 11/05/22 14:48 BMI result Body Mass Index 39.0 GENERAL APPEARANCE: in no acute distress, pleasant. NECK: no carotid bruit, no significant jugular venous distention. SKIN: no suspicious lesions, warm and dry. HEART: no murmurs, regular rate and rhythm. LUNGS: Few crackles at bases. ABDOMEN: soft, nontender. EXTREMITIES: Trace edema. PERIPHERAL PULSES: equal. NEUROLOGIC: No gross deficits, AAO X 3 Objective Labs and Meds 11/06/22 06:03 11/06/22 06:03 Lab results: Laboratory Results - last 24 hr 11/05/22 11/05/22 11/05/22 11:05 15:14 19:17 WBC RBC Hgb Hct MCV MCH MCHC RDW Plt Count MPV Absolute Nucleated RBC Nucleated RBC % (auto) Sodium Potassium Chloride Carbon Dioxide Anion Gap BUN Creatinine Estim Creat Clear Calc Estimated GFR POC Glucose 177 H 199 H 367 H* Fasting Glucose Calcium 11/06/22 11/06/22 11/06/22 06:03 06:03 07:10 WBC 9.5 RBC 4.87 Hgb 13.0 Hct 41.1 MCV 84.4 MCH 26.7 L MCHC 31.6 RDW 15.2 Plt Count 253 MPV 11.1 Absolute Nucleated RBC 0.000 Nucleated RBC % (auto) 0.0 Sodium 144 Potassium 3.8 Chloride 105 Carbon Dioxide 27 Anion Gap 16 BUN 31 H Creatinine 1.03 Estim Creat Clear Calc 45.1 Estimated GFR 52 POC Glucose 170 H Fasting Glucose 192 H Calcium 9.2 Progress Note: A&P Assessment and plan (1) CHF exacerbation: Status: Acute (2) Atrial fibrillation: Status: Acute Plan 76-year-old female with chronic diastolic heart failure with acute exacerbation due to atrial fibrillation. She has been cardioverted at this stage and is in sinus rhythm. Continue apixaban along with carvedilol. Currently not starting any anti arrhythmic therapy. Not a candidate for Multaq because of heart failure. Options will be to try a stress test and put her on flecainide versus amiodarone in the future. Can be changed to p.o. Lasix 40 mg once a day. She will be ambulated in the hallways and if no significant issues then can be potentially discharged home today. Thank you for allowing me to participate in the care of your patient. Please feel free to contact me if you have any questions. Time Spent With Patient Time: Total time managing care of this patient today ____ minutes. Progress Note: Quality Stroke Does the patient have a stroke diagnosis?: No Procedures Date of Service Date of Service: 11/06/22
--- NOTE | 2022-11-06 09:08 | P.DS_ITS ---
DS: Providers Provider Date of Service: 11/06/22 Date of admission: 11/03/22 13:45 Primary care physician: Balta Jeffrey MD Consults: 11/02/22 10:51 Consult to Cardiology Routine Consulting Provider: [facility] [place], [place] Cardiovascular Services Reason for consultation: new onset Afib for eval and rec DS: Diagnosis Discharge Diagnosis (1) CHF exacerbation: Status: Acute (2) Atrial fibrillation: Status: Acute DS: Summary Hospital Course Hospital Course: from initial hpi: 68-year-old female with history of HFpEF, JOVANNI noncompliant with CPAP, mild intermittent asthma, GERD, hypertension, and [id number] type 2 diabetes presented to the ED earlier today with her 2 daughters with whom she lives via EMS for evaluation of shortness of breath ongoing for 1 day.? She describes this as orthopnea and dyspnea on exertion.? There has also been wheezing, lightheadedness, productive cough, and increased in bilateral lower extremity edema ongoing for last 2-3 days.? She also reports early satiety with decreased p.o. intake.? No fevers, chills, congestion, sore throat, headaches, abdominal pain, nausea, vomiting, diarrhea, palpitations, or chest pain.? Denies any sick contacts or recent travel. On arrival, vital stable.? No leukocytosis.? H/H 11.2/35.4%.? Renal function baseline.? Sodium 148, potassium 3.7, chloride 109. Mag pending. Troponin below detectable limits.? BNP 220.? TSH 4.08.? Negative for influenza, RSV, COVID-19.? CXR showing hazy opacity throughout the right mid to lower lung possibly reflecting infectious versus inflammatory etiology as well as linear left perihilar atelectasis.? EKG showing unspecified dysrhythmia with nonspecific ST/T-wave abnormality. Repeat EKG with AFib, rate 97, nonspecific st/t wave abnormality. In the ED, treated wtih 20mg furosemide, ceftriaxone, zithromax, and IVF. hospital course: patient was admitted for new onset atrial fibrillation. she was treated with carvedilol, digoxin, eliquis. patient remained in afib and symptomatic, so underwent succuessful CLARITZA/CV on 11/05/22. course complicated by acute on chronic diastolic chf, she was treated with iv lasix, on discharge will increase lasix from 20mg po daily to 40mg daily. for DM was cotninued on insulin. for htn was continued on losartan and coreg, for hld was continued on statin. patient is feeling better and will be discharged home. Time Spent with Patient Time attestation: Total time managing care of this patient today ____ minutes. Discharge coordination time: Greater than 30 minutes Quality: Safe Use of Opioids Does Pt have an Active Cancer Diagnosis on the Problem List?: No Quality: Stroke Does the patient have a stroke diagnosis?: No Physical Exam Vital Signs: Vital Signs: Last Vital Signs Temp 97.1 F 11/06/22 07:07 Pulse 86 11/06/22 08:06 Resp 18 11/06/22 08:06 BP 153/72 H 11/06/22 07:07 Pulse Ox 96 11/06/22 07:07 O2 Del Method Room Air 11/06/22 07:07 O2 Flow Rate 2 11/05/22 14:48 BMI result Body Mass Index 39.0 General: AO X 3, no acute distress Resp: CTA bilateral, no accessory muscles used CVS: S1,S2,RRR GI: soft, non tender, non distended Neuro: motor grossly intact, alert Psych: appropriate affect, appropriate insight DS: Data Data Completed and Pending Completed studies during hospitalization [Text1]: Procedures Replacement of Right Knee Joint with Synthetic Substitute, Cemented, Open Approach (05/27/21) Labs on day of discharge: Laboratory Results - last 24 hr 11/05/22 11/05/22 11/05/22 11:05 15:14 19:17 WBC RBC Hgb Hct MCV MCH MCHC RDW Plt Count MPV Absolute Nucleated RBC Nucleated RBC % (auto) Sodium Potassium Chloride Carbon Dioxide Anion Gap BUN Creatinine Estim Creat Clear Calc Estimated GFR POC Glucose 177 H 199 H 367 H* Fasting Glucose Calcium 11/06/22 11/06/22 11/06/22 06:03 06:03 07:10 WBC 9.5 RBC 4.87 Hgb 13.0 Hct 41.1 MCV 84.4 MCH 26.7 L MCHC 31.6 RDW 15.2 Plt Count 253 MPV 11.1 Absolute Nucleated RBC 0.000 Nucleated RBC % (auto) 0.0 Sodium 144 Potassium 3.8 Chloride 105 Carbon Dioxide 27 Anion Gap 16 BUN 31 H Creatinine 1.03 Estim Creat Clear Calc 45.1 Estimated GFR 52 POC Glucose 170 H Fasting Glucose 192 H Calcium 9.2 Preliminary micro results at discharge 11/02/22 07:57 Blood Culture - Preliminary Blood - Venous No growth after 48 hours. 11/02/22 07:57 Blood Culture - Preliminary Blood - Venous No growth after 48 hours. Discharge Plan Discharge Anticipated Discharge Date/Time: 11/06/22 09:05 Patient Disposition: Home, Self-Care Discharge Diagnosis: chf, afib Referrals: Name,MD Balta [Primary Care Provider] - 1 Week Discharge Medications: New Eliquis 5 mg Tablet 5 mg PO BID Qty: 60 0RF furosemide 40 mg Tablet 40 mg PO DAILY Qty: 30 0RF Protocol: Hold for SBP< HOLD for SBP < : 90 Continued (DANAE) thelma Barger[facility] See Rx Instructions .ROUTE .MEDSUPPLY Qty: 1 0RF Rx Instructions: Folding front wheeled walker atorvastatin 40 mg tablet 40 mg PO DAILY 90 Days Qty: 90 3RF aspirin [Adult Aspirin Regimen] 81 mg tablet,delayed release (DR/EC) 81 mg PO DAILY 90 Days Qty: 90 3RF carvedilol 25 mg tablet 25 mg PO BID Qty: 60 5RF amlodipine 10 mg tablet 10 mg PO DAILY Qty: 90 3RF losartan 100 mg tablet 100 mg PO DAILY 90 Days Qty: 90 3RF Hold Instructions: Resume on 06/01/21. metformin 500 mg tablet 0.5 tab PO BID calcium carbonate 600 mg calcium (1,500 mg) tablet 1 tab PO DAILY fluticasone propionate 50 mcg/actuation spray,suspension 1 - 2 spray intranasal DAILY PRN (Reason: Nasal Congestion) cholecalciferol (vitamin D3) 25 mcg (1,000 unit) tablet 1 tab PO QAM sennosides [Senna Laxative] 8.6 mg tablet 1 tab PO DAILY PRN (Reason: Constipation) acetaminophen 325 mg Tablet 650 mg PO Q6H PRN (Reason: Pain, Mild (Pain Scale 1-3)) 30 Days Qty: 240 0RF cyanocobalamin (vitamin B-12) 1,000 mcg/mL solution 1,000 mcg IM Q28D oxybutynin chloride 5 mg tablet 5 mg PO BID ranitidine HCl 300 mg tablet 300 mg PO BEDTIME ferrous gluconate 324 mg (38 mg iron) tablet 324 mg PO DAILY ascorbic acid (vitamin C) [Vitamin C] 500 mg tablet 500 mg PO DAILY Discontinued furosemide 20 mg tablet 20 mg PO DAILY Discharge Orders: Discharge Order (Routine); Ordered 11/06/22 Ordered By: Duarte Israel Diet: Advance to usual diet Activity on Discharge: As tolerated Stand Alone Forms: Patient Portal Discharge page Care Plan Goals: recovery Health Concerns: chf, afib Plan of Treatment: started eliquis, increase lasix to 40mg daily, follow up with cardiology Assessment: see above
--- NOTE | 2022-11-06 09:16 | MHC.CM.PN ---
order for home, self care. CM acknowledge.
--- NOTE | 2022-11-06 11:53 | PC.NURSE ---
pt A&O, vitals stable, family member and care aid, Sophia, at bedside. discharge instruction given. pt and family verbalize understanding. IV out, monitor off. new scripts sent to [facility] per pt request due to preferred pharmacy being closed on weekends.
== END 2022-11-06 12:00 | disposition home or self-care (01) | DRG 291 ==
LOC: HO.ED 07:27 → HO.EDOVER 11:24 → HO.IMC 16:57
PROVIDERS: Internal Medicine Cardiovascular Disease; Physician Assistant; Physician Assistant Medical; Admitting Provider Student in an Organized Health Care Education/Training Program; Emergency Provider Emergency Medicine; PCP Internal Medicine Geriatric Medicine; Visit Provider Internal Medicine
PROC: B246ZZ4 Ultrasonography of Right and Left Heart, Transesophageal (ICD-10-PCS; CPT 93312; principal; 2022-11-05 14:00)
PROC: 5A2204Z Restoration of Cardiac Rhythm, Single (ICD-10-PCS; 2022-11-05 14:00)
DX: I11.0 Hypertensive heart disease with heart failure (principal); I50.33 Acute on chronic diastolic (congestive) heart failure; E86.0 Dehydration; E78.5 Hyperlipidemia, unspecified; E11.9 Type 2 diabetes mellitus without complications; G47.33 Obstructive sleep apnea (adult) (pediatric); Z20.822 Contact with and (suspected) exposure to COVID-19; Z88.0 Allergy status to penicillin; Z79.01 Long term (current) use of anticoagulants; Z79.51 Long term (current) use of inhaled steroids; Z79.82 Long term (current) use of aspirin; Z79.84 Long term (current) use of oral hypoglycemic drugs; Z79.899 Other long term (current) drug therapy
CPT/HCPCS: 0241U; 36415; 71045; 71250; 80048; 82947; 83605; 83735; 83880; 84443; 84484; 85025; 85027; 87040; 92960; 93005; 93306; 94640; 99285; J0456; J0696; J1160; J1940; J2920; Q9957

== ENCOUNTER → 2022-11-18 14:41 | Outpatient (BNVA) | payer OTHER, SELFPAY | PROVIDERS: PCP Internal Medicine Geriatric Medicine; Referring Provider Internal Medicine Geriatric Medicine; Visit Provider Nurse Practitioner Family | DX: Z09 Encounter for follow-up examination after completed treatment for conditions other than malignant neoplasm (principal); I11.0 Hypertensive heart disease with heart failure; I50.32 Chronic diastolic (congestive) heart failure; I48.91 Unspecified atrial fibrillation | CPT/HCPCS: 99212 ==

== ENCOUNTER 2022-11-29 08:53 | Outpatient (REF) | payer OTHER, SELFPAY ==
--- NOTE | ~2022-11-29 | US_ITS ---
EXAMINATION: US RETROPERITONEAL LIMITED (RENAL ONLY) CLINICAL INFORMATION: Urgency of urination. COMPARISON: None available. TECHNIQUE: Real-time imaging of the kidneys. FINDINGS: RIGHT KIDNEY: 8.5 x 3.3 x 4.9 cm (SAG x AP x TRV). The kidney is normal in size, contour, and echogenicity. Renal cortical thickness is normal. No calculi or focal parenchymal lesions. No hydronephrosis. LEFT KIDNEY: 9.5 x 3.7 x 4.3 cm (SAG x AP x TRV). The kidney is normal in size, contour, and echogenicity. Renal cortical thickness is normal. No calculi or focal parenchymal lesions. No hydronephrosis. INCIDENTAL FINDING: Incidental note is made of a comet tail artifacts in the gallbladder which could be seen in the setting of adenomyomatosis. US/US renal BI IMPRESSION: 1. Unremarkable sonographic appearance of the kidneys. 2. Incidental note is made of a comet tail artifacts in the gallbladder which could be seen in the setting of adenomyomatosis.
== END 2022-11-29 08:54 | disposition home or self-care (01) ==
LOC: HO.US 08:53
PROVIDERS: PCP Internal Medicine Geriatric Medicine; Visit Provider Urology
DX: R39.15 Urgency of urination (principal)
CPT/HCPCS: 76775

== ENCOUNTER 2022-12-18 16:33 | Emergency (ER) | payer OTHER, SELFPAY ==
--- NOTE | ~2022-12-18 | XR_ITS ---
EXAMINATION: XR CHEST CLINICAL INFORMATION: Shortness of breath COMPARISON: Chest x-ray and chest CT of 11/02/2022 TECHNIQUE: 2 views of the chest were obtained. FINDINGS: Cardiomediastinal silhouette is stable with cardiomegaly. The lungs are symmetrically well expanded. Linear densities in the left midlung zone likely represents atelectasis and/or scarring. There is no evidence of focal consolidation, changes of congestion, pleural effusions or pneumothorax. Regional skeleton is intact. Multilevel degenerative changes in the spine. Visualized upper abdomen is unremarkable. XR/XR chest 2V IMPRESSION: No radiographic evidence of pneumonia or overt pulmonary edema. Stable cardiomegaly.
--- NOTE | 2022-12-18 16:53 | ECG_ITS ---
Test Reason : dizziness Blood Pressure : / mmHG Vent. Rate : 068 BPM Atrial Rate : 068 BPM P-R Int : 144 ms QRS Dur : 080 ms QT Int : 434 ms P-R-T Axes : 051 -03 017 degrees QTc Int : 461 ms Normal sinus rhythm with sinus arrhythmia Minimal voltage criteria for LVH, may be normal variant ( R in aVL ) Nonspecific ST and T wave abnormality Abnormal ECG When compared with ECG of 02-NOV-2022 12:21, Sinus rhythm has replaced Atrial fibrillation Nonspecific T wave abnormality no longer evident in Lateral leads Referred By: Suzie Tony Electronically Signed By:Prem Adkins
[2022-12-18 16:59] VITALS: BP 169/67; PULSE 78; RESP 18; TEMP 36.4; O2SAT 99; BMI 58.2
--- NOTE | 2022-12-18 16:59 | ED_ITS ---
HPI - General Adult General Chief complaint: General Medical Stated complaint: elevated bp,dizziness Time Seen by Provider: 12/18/22 23:14 Source: patient, family and funeral arranger Mode of arrival: ambulatory Limitations: no limitations History of Present Illness HPI narrative: 77 y/o Macedonian speaking female with history of HFpEF, afib on apixaban, HTN who presents to the ER for evaluation of elevated BP and not feeling well at home. BP 175 systolic at home. She has been compliant with her BP meds at home. She r eports associated with the elevated BP she was feeling dizzy and like she was losing her breath when she talks specially when she talks fast, She also reports transient pain in the eyes and black floaters. No longer having any of those symptoms. No exertion CP or SOB, no PND, no orthopnea, no lower extremities edema. Related Data Home Medications Medication Instructions Recorded Confirmed oxybutynin chloride 5 mg tablet 5 mg PO BID 05/15/20 11/18/22 ranitidine HCl 300 mg tablet 300 mg PO BEDTIME 05/15/20 11/18/22 calcium carbonate 600 mg calcium 1 tab PO DAILY 03/24/21 11/18/22 (1,500 mg) tablet cholecalciferol (vitamin D3) 25 1 tab PO QAM 03/24/21 11/18/22 mcg (1,000 unit) tablet fluticasone propionate 50 1 - 2 spray intranasal DAILY PRN 03/24/21 11/18/22 mcg/actuation nasal Nasal Congestion spray,suspension metformin 500 mg tablet 0.5 tab PO BID 03/24/21 11/18/22 sennosides 8.6 mg tablet (Senna 1 tab PO DAILY PRN Constipation 05/28/21 11/18/22 Laxative) ascorbic acid (vitamin C) 500 mg 500 mg PO DAILY 03/08/22 11/18/22 tablet (Vitamin C) ferrous gluconate 324 mg (38 mg 324 mg PO DAILY 03/08/22 11/18/22 iron) tablet cyanocobalamin (vitamin B-12) 1,000 mcg IM Q28D 11/02/22 11/18/22 1,000 mcg/mL injection solution Previous Rx's Medication Instructions Recorded walker #1 ea 03/02/21 acetaminophen 325 mg tablet 650 mg PO Q6H PRN Pain, Mild (Pain 05/29/21 Scale 1-3) 30 days #240 tabs atorvastatin 40 mg tablet 40 mg PO DAILY 90 days #90 tabs 03/01/22 carvedilol 25 mg tablet 25 mg PO BID #60 tabs 07/13/22 amlodipine 10 mg tablet 10 mg PO DAILY #90 tabs 07/19/22 losartan 100 mg tablet 100 mg PO DAILY 90 days #90 tabs 10/07/22 apixaban 5 mg tablet (Eliquis) 5 mg PO BID 90 days #180 tabs 12/07/22 furosemide 40 mg tablet 40 mg PO DAILY 90 days #90 tabs 12/14/22 Allergies Allergy/AdvReac Type Severity Reaction Status Date / Time Penicillins [PENICILLINS] Allergy Intermediate NAUSEA/HIVE Verified 11/18/22 15:24 S Review of Systems Review of Systems: All other systems are reviewed and are negative Constitutional: Reports as per HPI and Reports no additional constitutional comp laints Eyes: Reports as per HPI and Reports no additional eye complaints Reports system reviewed and no additional complaints, except as documented Cardiovascular: Reports as per HPI and Reports no additional cardiovascular complaints Respiratory: Reports as per HPI and Reports no additional respiratory complaints Gastrointestinal: Reports as per HPI and Reports no additional gastrointestinal complaints Genitourinary: Reports no additional female genitourinary complaints Musculoskeletal: Reports no additional musculoskeletal complaints Skin/Breast: Reports system reviewed and no additional complaints, except as docu Psychiatric: Reports no additional psychiatric complaints Endocrine: Reports no additional endocrine complaints Hematologic/Lymphatic: Reports no additional hematologic/lymphatic complaints Allergic/Immunologic: Reports no additional allergic/immunologic complaints Reports system reviewed and no additional complaints, except as documented and Reports Abnormal speech present [facility] Past Medical History Medical History MARIA R (acute kidney injury) Asthma Chronic diastolic heart failure Diabetes GERD (gastroesophageal reflux disease) Hyperlipidemia Hypertension JOVANNI (obstructive sleep apnea) Osteoarthritis Surgical History H/O: hysterectomy History of salpingoophorectomy History of tonsillectomy Hx of colonoscopy Family History Family History Father HTN (hypertension) Mother HTN (hypertension) CVD (cardiovascular disease) Daughter Bone cancer Father Cancer Social History Social History Household Members: Family Housing: House Are you a primary personal care aide to a significant other at home: No Do you presently have visiting nurse or other home services: Yes Unable to assess alcohol history related to: Unknown Alcohol intake: never Patient Tobacco Use Status: Never used Tobacco Second Hand Smoke Exposure: No Advance Directives: No Advance Directives Information Provided: Yes service: No Current occupational status: retired Current occupation: Right handed Physical Exam ED Vital Signs: Vital Signs - 24 hr 12/18/22 16:59 Temperature 97.5 F Pulse Rate 78 Respiratory Rate 18 Blood Pressure 169/67 H Pulse Oximetry 99 Oxygen Delivery Method Room Air BMI result Body Mass Index 58.2 Vital signs have been reviewed as appeared to be correct. Blood pressure normal. Heart rate normal. Respiration rate normal. Temperature normal. Oxygen saturation normal. Appearance: Alert. Oriented X3. No acute distress. Head: Normal external exam. Normocephalic. Atraumatic. No Chang signs noted. No raccoon eyes noted Eyes: PERRLA. EOMI. Conjunctiva and sclera normal. Eyelids normal. ENT: TM's Normal. Pharynx normal. Uvula midline. Moist mucous membranes. No trismus noted. No drooling noted. No muffled voice noted. Neck: Normal inspection. Neck supple. FROM. No adenopathy. Thyroid Normal. No meningeal signs. No neck mass noted. CVS: Normal heart rate and rhythm. Heart sound normal. No murmurs noted. Pulses normal throughout. Respiratory: No respiratory distress. Painless inspiration. Breath sounds normal. No wheezes/rales/rhonchi noted. Chest nontender. No accessory muscle usage noted or decreased air movement noted. Abdomen: Soft and nontender. Bowel sounds normal in all 4 quadrants. No distention noted. No organomegaly noted. No visible injury noted. Back: No CVA tenderness. Full range of motion noted. Skin: Skin warm and dry. Normal skin color. Normal skin turgor. No rashes/lesions/lacerations noted. Extremities: No lower extremity edema. Extremities exhibit normal range of motion. Extremities nontender. Neuro: Oriented X 3. Cranial nerve exam: II-XII are grossly intact No motor deficit. No sensory deficit. Reflexes normal. Course Course Course Narrative: Plan: EKG and labs Medical Decision Making Medical Decision Making [facility] Narrative: A 77-year-old female with history of atrial fibrillation status post cardioversion patient converted to normal sinus rhythm today's EKG is showing normal sinus rhythm. No acute finding of CHF or ACS. Differential Diagnosis Differential Diagnoses: The differential diagnosis associated with the presentation includes (ACS, CHF, electrolyte abnormalities, pleural effusion, atrial fibrillation.) Admission/Observation Consideration of admission/observation: Escalation of care including admission/observation considered Lab Data [facility] Lab Attestation statement: I reviewed the patient's lab results. 12/18/22 17:16 12/18/22 17:16 Labs: Lab Results 12/18/22 12/18/22 12/18/22 Range/Units 17:16 17:16 17:16 WBC 8.6 (4.8-10.8) X10*3/uL RBC 4.97 (4.20-5.50) X10*6/uL Hgb 12.8 (12.0-16.0) g/dl Hct 40.6 (37.0-47.0) % MCV 81.7 (80.0-98.0) fL MCH 25.8 L (27.0-33.0) pg MCHC 31.5 (31.0-35.0) g/dl RDW 15.9 (11.0-16.0) % Plt Count 244 (160-400) X10*3/uL MPV 11.0 (9.4-12.3) fL Immature Gran % (Auto) 0.5 H (0.0-0.4) % Neut % (Auto) 74.6 H (45-73) % Lymph % (Auto) 15.1 L (20-40) % Roosevelt % (Auto) 7.5 (2-11) % Eos % (Auto) 2.0 (0-4) % Baso % (Auto) 0.3 (0-2) % Lymph # (Auto) 1.3 (1.2-4.9) X10*3/uL Roosevelt # (Auto) 0.7 (0.1-1.2) X10*3/uL Eos # (Auto) 0.2 (0.0-0.4) X10*3/uL Baso # (Auto) 0.0 (0.0-0.2) X10*3/uL Abs Immat Gran (auto) 0.04 H (0.00-0.03) X10*3/uL Absolute Neuts (auto) 6.4 (2.0-8.3) x10*3/uL Absolute Nucleated RBC 0.000 (0.0-0.012) X10*3/uL Nucleated RBC % (auto) 0.0 (0.0-0.2) /100WBC Sodium 144 (135-145) mmol/L Potassium 4.0 (3.3-5.1) mmol/L Chloride 105 (96-108) mmol/L Carbon Dioxide 31 H (22-29) mmol/L Anion Gap 12 (12-20) BUN 13 (9-16) mg/dL Creatinine 0.94 (0.5-1.4) mg/dL Estim Creat Clear Calc 62.3 Estimated GFR 57 Random Glucose 149 H (60-115) mg/dL Calcium 10.2 D (8.4-10.2) mg/dL Magnesium 1.9 (1.6-2.6) mg/dL Total Bilirubin 0.6 (0.0-1.0) mg/dL Direct Bilirubin 0.2 (0.0-0.5) mg/dL AST 19 (5-31) U/L ALT 16 (0-31) U/L Alkaline Phosphatase 165 H (39-117) U/L Troponin I High Sens < 2.7 (<3.5-17.0) ng/L B-Natriuretic Peptide (<100) pg/mL Total Protein 7.8 (6.5-8.0) g/dL Albumin 4.5 (3.5-5.0) g/dL 12/18/22 Range/Units 17:16 WBC (4.8-10.8) X10*3/uL RBC (4.20-5.50) X10*6/uL Hgb (12.0-16.0) g/dl Hct (37.0-47.0) % MCV (80.0-98.0) fL MCH (27.0-33.0) pg MCHC (31.0-35.0) g/dl RDW (11.0-16.0) % Plt Count (160-400) X10*3/uL MPV (9.4-12.3) fL Immature Gran % (Auto) (0.0-0.4) % Neut % (Auto) (45-73) % Lymph % (Auto) (20-40) % Roosevelt % (Auto) (2-11) % Eos % (Auto) (0-4) % Baso % (Auto) (0-2) % Lymph # (Auto) (1.2-4.9) X10*3/uL Roosevelt # (Auto) (0.1-1.2) X10*3/uL Eos # (Auto) (0.0-0.4) X10*3/uL Baso # (Auto) (0.0-0.2) X10*3/uL Abs Immat Gran (auto) (0.00-0.03) X10*3/uL Absolute Neuts (auto) (2.0-8.3) x10*3/uL Absolute Nucleated RBC (0.0-0.012) X10*3/uL Nucleated RBC % (auto) (0.0-0.2) /100WBC Sodium (135-145) mmol/L Potassium (3.3-5.1) mmol/L Chloride (96-108) mmol/L Carbon Dioxide (22-29) mmol/L Anion Gap (12-20) BUN (9-16) mg/dL Creatinine (0.5-1.4) mg/dL Estim Creat Clear Calc Estimated GFR Random Glucose (60-115) mg/dL Calcium (8.4-10.2) mg/dL Magnesium (1.6-2.6) mg/dL Total Bilirubin (0.0-1.0) mg/dL Direct Bilirubin (0.0-0.5) mg/dL AST (5-31) U/L ALT (0-31) U/L Alkaline Phosphatase (39-117) U/L Troponin I High Sens (<3.5-17.0) ng/L B-Natriuretic Peptide 17 (<100) pg/mL Total Protein (6.5-8.0) g/dL Albumin (3.5-5.0) g/dL Independent Interpretation I performed an independent interpretation of an: EKG (Normal sinus rhythm with sinus arrhythmia at 68 beats per minutes, LVH, normal intervals, no ST-T changes.) and Plain X-Ray (Chest: No acute intrathoracic pathology.) Radiology Impression Discussion of test interpretation with radiology: I have reviewed the radiologist's reading. Discharge Plan Discharge Clinical Impression: Hypertension Patient Disposition: Home, Self-Care Instructions: Hypertension (ED) Prescriptions: [facility] See [facility] Instructions .ROUTE .MEDSUPPLY Qty: 1 0RF Rx Instructions: Folding front wheeled walker atorvastatin 40 mg tablet 40 mg PO DAILY 90 Days Qty: 90 3RF carvedilol 25 mg tablet 25 mg PO BID Qty: 60 5RF amlodipine 10 mg tablet 10 mg PO DAILY Qty: 90 3RF losartan 100 mg tablet 100 mg PO DAILY 90 Days Qty: 90 3RF Hold Instructions: Resume on 06/01/21. Eliquis 5 mg tablet 5 mg PO BID 90 Days Qty: 180 3RF furosemide 40 mg tablet 40 mg PO DAILY 90 Days Qty: 90 3RF Protocol: Hold for SBP< HOLD for SBP < : 90 metformin 500 mg tablet 0.5 tab PO BID calcium carbonate 600 mg calcium (1,500 mg) tablet 1 tab PO DAILY fluticasone propionate 50 mcg/actuation spray,suspension 1 - 2 spray intranasal DAILY PRN (Reason: Nasal Congestion) cholecalciferol (vitamin D3) 25 mcg (1,000 unit) tablet 1 tab PO QAM sennosides [Senna Laxative] 8.6 mg tablet 1 tab PO DAILY PRN (Reason: Constipation) acetaminophen 325 mg Tablet 650 mg PO Q6H PRN (Reason: Pain, Mild (Pain Scale 1-3)) 30 Days Qty: 240 0RF cyanocobalamin (vitamin B-12) 1,000 mcg/mL solution 1,000 mcg IM Q28D oxybutynin chloride 5 mg tablet 5 mg PO BID ranitidine HCl 300 mg tablet 300 mg PO BEDTIME ferrous gluconate 324 mg (38 mg iron) tablet 324 mg PO DAILY ascorbic acid (vitamin C) [Vitamin C] 500 mg tablet 500 mg PO DAILY Referrals: [facility] [Primary Care Provider] -
[2022-12-18 17:20] LABS: MANUAL DIFF FLAG NO
[2022-12-18 17:31] LABS: Basophils Percent Auto 0.3 % (0-2); Eosinophils Absolute Auto 0.2 X10*3/uL (0.0-0.4); Hematocrit 40.6 % (37.0-47.0); Hemoglobin 12.8 g/dl (12.0-16.0); Imm Gran Abs Auto 0.04 X10*3/uL (0.00-0.03); Imm Gran Pct Auto 0.5 % (0.0-0.4); Lymphocytes Absolute Auto 1.3 X10*3/uL (1.2-4.9); Lymphocytes Percent Auto 15.1 % (20-40); Mean Corpuscular HGB Conc 31.5 g/dl (31.0-35.0); Mean Corpuscular Hemoglobin 25.8 pg (27.0-33.0); Mean Corpuscular Volume 81.7 fL (80.0-98.0); Monocytes Absolute Auto 0.7 X10*3/uL (0.1-1.2); Monocytes Percent Auto 7.5 % (2-11); Neutrophils Absolute Auto 6.4 x10*3/uL (2.0-8.3); Neutrophils Percent Auto 74.6 % (45-73); Platelet Count 244 X10*3/uL (160-400); Red Blood Count 4.97 X10*6/uL (4.20-5.50); Red Cell Distribution Width 15.9 % (11.0-16.0); White Blood Count 8.6 X10*3/uL (4.8-10.8)
[2022-12-18 17:45] LABS: Anion Gap 12 (12-20); Calcium 10.2 mg/dL (8.4-10.2); Carbon Dioxide 31 mmol/L (22-29); Chloride 105 mmol/L (96-108); Sodium 144 mmol/L (135-145); Total Protein 7.8 g/dL (6.5-8.0)
[2022-12-18 17:46] LABS: Troponin-I High Sensitivity < 2.7 ng/L (<3.5-17.0)
[2022-12-18 17:47] LABS: B Type Natriuretic Peptide 17 pg/mL (<100)
[2022-12-18 18:09] LABS: Alanine Aminotransferase 16 U/L (0-31); Albumin Level 4.5 g/dL (3.5-5.0); Alkaline Phosphatase 165 U/L (39-117); Aspartate Amino Transferase 19 U/L (5-31); Bilirubin Direct 0.2 mg/dL (0.0-0.5); Bilirubin Total 0.6 mg/dL (0.0-1.0); Blood Urea Nitrogen 13 mg/dL (9-16); Creatinine Clr Calc Pharmacy 62.3; Estimated Glomerular Filt Rate 57; Glucose Random 149 mg/dL (60-115); Magnesium 1.9 mg/dL (1.6-2.6)
--- NOTE | 2022-12-19 00:04 | PC.NURSE ---
pt c/o of dizziness, htn
[2022-12-19 01:38] VITALS: BP 150/67; PULSE 73; RESP 18; TEMP 36.4; O2SAT 98
--- NOTE | 2022-12-19 01:59 | PC.NURSE ---
[id number] Discharge instructions given and explained to patient No apparent distress ambulates safely and independently with walker All of pt's questions answered
== END 2022-12-19 01:59 | disposition home or self-care (01) ==
PROVIDERS: Physician Assistant; Emergency Provider Emergency Medicine
DX: I10 Essential (primary) hypertension (principal); R06.02 Shortness of breath; E11.9 Type 2 diabetes mellitus without complications; E78.5 Hyperlipidemia, unspecified; Z79.02 Long term (current) use of antithrombotics/antiplatelets; Z79.899 Other long term (current) drug therapy
CPT/HCPCS: 36415; 71046; 80048; 80076; 83735; 83880; 84484; 85025; 93005; 99283; 99284

== ENCOUNTER 2022-12-29 11:29 | Outpatient (REF) | payer OTHER, SELFPAY ==
--- NOTE | ~2022-12-29 | MM_ITS ---
EXAMINATION: MM SCREENING DIGITAL BREAST TOMOSYNTHESIS, BILATERAL CLINICAL INFORMATION: Screening. Asymptomatic. The lifetime risk of breast cancer based on the Tyrer-Cuzick Model is 4%. COMPARISON: Mammography: 11/20/2021, 11/19/2020, 09/11/2019 TECHNIQUE: Digital breast tomosynthesis is performed in both the craniocaudal and mediolateral oblique views along with computer-aided detection (CAD). Synthesized 2D images are generated from the tomosynthesis. FINDINGS: The breasts are almost entirely fatty (ACR BI-RADS breast composition Category a). No architectural abnormality or developing density or significant change from prior studies. Background stromal markings are normal. There are no significant masses, abnormal calcifications, or other abnormalities. The axilla and skin contours are unremarkable. MM/MM tomosynthesis screening BI IMPRESSION: No mammographic evidence of malignancy. ASSESSMENT: BI-RADS 1: Negative RECOMMENDATION: Routine annual mammography screening. This patient's information was entered into a reminder system with a target due date for their next mammogram.
== END 2022-12-29 11:30 | disposition home or self-care (01) ==
LOC: HO.MAMMO 11:29
PROVIDERS: PCP Internal Medicine Geriatric Medicine; Visit Provider Internal Medicine Geriatric Medicine
DX: Z12.31 Encounter for screening mammogram for malignant neoplasm of breast (principal)
CPT/HCPCS: 77063; 77067

== ENCOUNTER 2023-05-23 14:08 | Outpatient (AMB) | payer OTHER, SELFPAY ==
[2023-05-23 14:49] VITALS: BP 130/68; PULSE 70; O2SAT 97; BMI 37.9
--- NOTE | 2023-05-23 14:49 | MHC.OFFVIS ---
Intake Vital Signs 05/23/23 14:49 Height 5 ft Weight 194 lb 0.108 oz BMI 37.9 BP 130/68 Blood Pressure Location Lt brachial Position Sitting Pulse 70 Pulse Source Pulse Oximeter Pulse Oximetry (%) 97 Oxygen Delivery Method Room Air Intake Visit Reasons: 6 mth f/u per DC Intake Note: Pt presents to the office today for a 6 month follow up. Pt states she is feeling good. Pt denies any cardiac concerns at this time. [employer] Name: Steven ([id number]) Allergies Penicillins [PENICILLINS] Allergy (Intermediate, Verified 05/23/23 14:54) NAUSEA/HIVES Medication List - Last Reconciled 05/23/23 by Prem Adkins MD acetaminophen 650 mg (2 x 325 mg) PO Q6H PRN 30 days amlodipine 10 mg PO DAILY apixaban (Eliquis) 5 mg PO BID 90 days ascorbic acid (vitamin C) (Vitamin C) 500 mg PO DAILY atorvastatin 40 mg PO DAILY 90 days calcium carbonate 1 tab PO DAILY carvedilol 25 mg PO BID 90 days cholecalciferol (vitamin D3) 1 tab PO QAM cyanocobalamin (vitamin B-12) 1,000 mcg IM Q28D ferrous gluconate 324 mg PO DAILY fluticasone propionate 50 mcg/actuation 1 - 2 sprays intranasal DAILY PRN furosemide 40 mg See Protocol PO DAILY 90 days losartan 100 mg PO DAILY 90 days metformin 0.5 tabs PO BID oxybutynin chloride 5 mg PO BID ranitidine HCl 300 mg PO BEDTIME sennosides (Senna Laxative) 1 tab PO DAILY PRN walker Folding front wheeled walker HPI HPI Comments History of Present Illness Details 77-year-old female with background history of hypertension and diastolic heart failure. She has been doing well. She has no chest pain or shortness of breath. No orthopnea or PND. 06/09/2023: She returns for follow-up. She has been doing well. She had admission in October 2022 at [facility] when she had atrial fibrillation and congestive heart failure. She was cardioverted and since then has been in sinus rhythm. She is on apixaban which she is tolerating well. She asked whether Eliquis a long-term drug and she has been told that this is a long-term drug for her prevent stroke. She is agreeable to take medications and is compliant with medications currently. [facility] Medical History Asthma MARIA R (acute kidney injury) GERD (gastroesophageal reflux disease) Diabetes Osteoarthritis Hyperlipidemia Chronic diastolic heart failure Hypertension JOVANNI (obstructive sleep apnea) Surgical History Hx of colonoscopy H/O: hysterectomy History of salpingoophorectomy History of tonsillectomy Family History Father HTN (hypertension) Mother HTN (hypertension) CVD (cardiovascular disease) Daughter Bone cancer Father Cancer Social History Household Members: Family Housing: House Are you a primary campground caretaker to a significant other at home: No Do you presently have visiting nurse or other home services: Yes Unable to assess alcohol history related to: Unknown Alcohol intake: never Patient Tobacco Use Status: Never used Tobacco Second Hand Smoke Exposure: No service: No Current occupational status: retired Current occupation: Right handed Physical Exam Vital Signs: Last Vital Signs Pulse 70 05/23/23 14:49 BP 130/68 05/23/23 14:49 Pulse Ox 97 05/23/23 14:49 Oxygen Delivery Method Room Air 05/23/23 14:49 BMI result Body Mass Index 37.9 GENERAL APPEARANCE: in no acute distress, pleasant. NECK: no carotid bruit, no significant jugular venous distention. SKIN: no suspicious lesions, warm and dry. HEART: no murmurs, regular rate and rhythm. LUNGS: Clear to auscultation bilaterally. ABDOMEN: soft, nontender. EXTREMITIES: Trace edema. PERIPHERAL PULSES: equal. NEUROLOGIC: No gross deficits, AAO X 3 Assessment & Plan Assessment & Plan (1) Chronic diastolic heart failure: Code(s): I50.32 - Chronic diastolic (congestive) heart failure (2) Atrial fibrillation: Code(s): I48.91 - Unspecified atrial fibrillation Plan Pleasant 77 year female who is here for follow-up. She has background history of chronic diastolic heart failure and paroxysmal atrial fibrillation. She had admission in October 2022 when she had atrial fibrillation with rapid ventricular response and congestive heart failure. She was diuresed underwent CLARITZA cardioversion. Since then she has been in sinus rhythm. She is currently not on any anti arrhythmic therapy. Our plan was to a stress test and put her on flecainide but she has been stable and in sinus rhythm. Will continue to observe her for now. Blood pressure control is good. She is on apixaban for anticoagulation. I have explained to her that this is a long-term drug to prevent stroke. She is agreeable to take it. Thank you for allowing me to participate in the care of your patient. Please feel free to contact me if you have any questions. Coding Level of Care Code Est Pt Level 4 (77394) Diagnoses Chronic diastolic heart failure I50.32 Atrial fibrillation I48.91
== END 2023-05-23 15:16 | disposition home or self-care (01) ==
PROVIDERS: Visit Provider Internal Medicine Cardiovascular Disease
DX: I50.32 Chronic diastolic (congestive) heart failure (principal); I48.91 Unspecified atrial fibrillation
CPT/HCPCS: 99214

== ENCOUNTER → 2023-05-23 14:08 | Outpatient (BNVA) | payer OTHER, SELFPAY | PROVIDERS: Visit Provider Internal Medicine Cardiovascular Disease | DX: I50.32 Chronic diastolic (congestive) heart failure (principal); I48.91 Unspecified atrial fibrillation | CPT/HCPCS: 99212 ==

== ENCOUNTER 2023-12-26 13:20 | Outpatient (REF) | payer OTHER, SELFPAY ==
[2023-12-26 15:58] LABS: MANUAL DIFF FLAG NO
[2023-12-26 16:14] LABS: Basophils Percent Auto 0.6 % (0-2); Eosinophils Absolute Auto 0.1 X10*3/uL (0.0-0.4); Hematocrit 37.5 % (37.0-47.0); Hemoglobin 11.7 g/dl (12.0-16.0); Imm Gran Abs Auto 0.03 X10*3/uL (0.00-0.03); Imm Gran Pct Auto 0.4 % (0.0-0.4); Lymphocytes Absolute Auto 1.6 X10*3/uL (1.2-4.9); Lymphocytes Percent Auto 22.8 % (20-40); Mean Corpuscular HGB Conc 31.2 g/dl (31.0-35.0); Mean Corpuscular Hemoglobin 25.8 pg (27.0-33.0); Mean Corpuscular Volume 82.8 fL (80.0-98.0); Mean Platelet Volume 12.4 fL (9.4-12.3); Monocytes Absolute Auto 0.5 X10*3/uL (0.1-1.2); Monocytes Percent Auto 7.1 % (2-11); Neutrophils Absolute Auto 4.7 x10*3/uL (2.0-8.3); Neutrophils Percent Auto 67.1 % (45-73); Platelet Count 247 X10*3/uL (160-400); Red Blood Count 4.53 X10*6/uL (4.20-5.50); Red Cell Distribution Width 16.8 % (11.0-16.0); White Blood Count 7.1 X10*3/uL (4.8-10.8)
[2023-12-26 16:31] LABS: Alanine Aminotransferase 25 U/L (0-31); Albumin Level 4.4 g/dL (3.5-5.0); Alkaline Phosphatase 144 U/L (39-117); Anion Gap 13 (12-20); Aspartate Amino Transferase 27 U/L (5-31); Bilirubin Total 0.4 mg/dL (0.0-1.0); Blood Urea Nitrogen 21 mg/dL (9-16); Calcium 10.6 mg/dL (8.4-10.2); Carbon Dioxide 30 mmol/L (22-29); Chloride 104 mmol/L (96-108); Cholesterol 169 mg/dL (<200); Estimated Glomerular Filt Rate > 60; Glucose Random 98 mg/dL (60-115); HDL Cholesterol 67 mg/dL (>40); LDL Cholesterol Calculated 92 mg/dL (<100); Potassium 4.2 mmol/L (3.3-5.1); Sodium 143 mmol/L (135-145); Total Protein 7.8 g/dL (6.5-8.0); Triglycerides 52 mg/dL (<150)
[2023-12-27 04:00] LABS: ~HepC Num1 0.07 S/CO (0.00-0.79); ~Hepatitis C Antibody Nonreactive (Nonreactive)
== END 2023-12-26 13:21 | disposition home or self-care (01) ==
LOC: HO.HHCL 13:20
PROVIDERS: Visit Provider Internal Medicine Geriatric Medicine
DX: I10 Essential (primary) hypertension (principal); Z11.59 Encounter for screening for other viral diseases
CPT/HCPCS: 36415; 80053; 80061; 82043; 82570; 85025; 86803

== ENCOUNTER 2023-12-27 09:42 | Outpatient (REF) | payer OTHER, SELFPAY ==
[2023-12-27 12:48] LABS: Creatinine Urine 90.13 mg/dL; Microalbum/Creatinine Ratio Ur 12.2 ug/mg cr (<30)
== END 2023-12-27 09:43 | disposition home or self-care (01) ==
LOC: HO.HHCL 09:42
PROVIDERS: Visit Provider Internal Medicine Geriatric Medicine
DX: R79.89 Other specified abnormal findings of blood chemistry (principal)
CPT/HCPCS: 82043; 82570

== ENCOUNTER 2024-01-02 15:27 | Emergency (ER) | payer OTHER, SELFPAY ==
--- NOTE | ~2024-01-02 | XR_ITS ---
EXAMINATION: XR CHEST CLINICAL INFORMATION: Choking with shortness of breath. COMPARISON: Chest radiograph 12/18/2022. TECHNIQUE: 2 views of the chest were obtained. FINDINGS: Stable prominence of the cardiomediastinal silhouette. Symmetric lung expansion. No unexpected radiopaque foreign bodies. Stable asymmetric fullness of the right paratracheal stripe. Central tracheal air column is maintained. Similar to slightly increased diffuse interstitial coarsening. No dense consolidation. Redemonstration of linear-like opacities in the left mid and lower lung suggestive of subsegmental atelectasis or scarring. No pleural effusion. No pneumothorax. Stable compression deformities in the lower thoracic spine/upper lumbar spine. Thoracic spondylosis. No acute osseous findings. XR/XR chest 2V IMPRESSION: 1. No unexpected radiopaque foreign bodies. 2. Similar to slightly increased diffuse interstitial coarsening which is nonspecific. 3. No dense consolidation, pleural effusion or pneumothorax.
[2024-01-02 15:40] VITALS: BP 171/74; PULSE 75; RESP 18; TEMP 36.1; O2SAT 94; BMI 33.5
--- NOTE | 2024-01-02 15:41 | ED.SOB ---
HPI - SOB/Dyspnea General Chief Complaint: Dyspnea Stated Complaint: diff breathing Time Seen by Provider: 01/02/24 21:31 Source: patient and family Mode of arrival: ambulatory Limitations: language barrier History of Present Illness ED Provider: Dr. Leone HPI Narrative: Patient presents with occaisional choking, cough and shortness of breath. She denies fever or chest pain MD elicited complaint: shortness of breath and cough Onset (ago): week(s) Timing: intermittent Severity: mild Related Data Home Medications ?Medication ?Instructions ?Recorded ?Confirmed oxybutynin chloride 5 mg tablet 5 mg PO BID 05/15/20 05/23/23 ranitidine HCl 300 mg tablet 300 mg PO BEDTIME 05/15/20 05/23/23 calcium carbonate 1 tab PO DAILY 03/24/21 05/23/23 cholecalciferol (vitamin D3) 25 1 tab PO QAM 03/24/21 05/23/23 mcg (1,000 unit) tablet fluticasone propionate 50 1 - 2 spray intranasal DAILY PRN 03/24/21 05/23/23 mcg/actuation nasal Nasal Congestion spray,suspension metformin 500 mg tablet 0.5 tab PO BID 03/24/21 05/23/23 sennosides 8.6 mg tablet (Senna 1 tab PO DAILY PRN Constipation 05/28/21 05/23/23 Laxative) ascorbic acid (vitamin C) 500 mg 500 mg PO DAILY 03/08/22 05/23/23 tablet (Vitamin C) ferrous gluconate 324 mg (38 mg 324 mg PO DAILY 03/08/22 05/23/23 iron) tablet cyanocobalamin (vitamin B-12) 1,000 mcg IM Q28D 11/02/22 05/23/23 1,000 mcg/mL injection solution Previous Rx's ?Medication ?Instructions ?Recorded walker #1 ea 03/02/21 acetaminophen 325 mg tablet 650 mg (2 x 325 mg) PO Q6H PRN 05/29/21 Pain, Mild (Pain Scale 1-3) 30 days #240 tabs furosemide 40 mg tablet 40 mg PO DAILY 90 days #90 tabs 12/14/22 amlodipine 10 mg tablet 10 mg PO QPM #90 tabs 06/20/23 losartan 100 mg tablet 100 mg PO QAM #90 tabs 09/07/23 apixaban 5 mg tablet (Eliquis) 5 mg PO BID #180 tabs 10/04/23 carvedilol 25 mg tablet 25 mg PO BID #180 tabs 11/28/23 atorvastatin 40 mg tablet 40 mg PO DAILY 90 days #90 tabs 12/28/23 Allergies Allergy/AdvReac Type Severity Reaction Status Date / Time Penicillins [PENICILLINS] Allergy Intermediate NAUSEA/HIVE Verified 01/02/24 15:41 S Review of Systems Review of Systems: Yes all other systems are reviewed and are negative Neurologic: Denies Sensory deficit (Neuro) [facility] Past Medical History Medical History Asthma MARIA R (acute kidney injury) GERD (gastroesophageal reflux disease) Diabetes Osteoarthritis Hyperlipidemia Chronic diastolic heart failure Hypertension JOVANNI (obstructive sleep apnea) Surgical History Hx of colonoscopy H/O: hysterectomy History of salpingoophorectomy History of tonsillectomy Family History Family History Father HTN (hypertension) Mother HTN (hypertension) CVD (cardiovascular disease) Daughter Bone cancer Father Cancer Social History Social History Household Members: Family Housing: House Are you a primary child care attendant to a significant other at home: No Do you presently have visiting nurse or other home services: Yes Unable to assess alcohol history related to: Unknown Alcohol intake: never Comment: Advised to remove Patient Tobacco Use Status: Never used Tobacco Smoked in Last 30 Days: No Second Hand Smoke Exposure: No Use of substances other than those prescribed or required for medical reasons: No Advance Directives: No Advance Directives Information Provided: No Do you have a plan to hurt others: No Plan service: No Current occupational status: retired Current occupation: Right handed Physical Exam Vital Signs: Vital Signs: Last Vital Signs Temp 97.0 F 01/02/24 23:48 Pulse 67 01/02/24 23:48 Resp 18 01/02/24 23:48 BP 148/68 H 01/02/24 23:48 Pulse Ox 98 01/02/24 23:48 O2 Del Method Room Air 01/02/24 23:48 BMI result Body Mass Index 33.5 Const: General: healthy appearing Nutritional Appearance: average body habitus Orientation/consciousness: oriented to person and patient oriented x3 Limitations: no limitations HEENT: Head: Yes normal to inspection Ears: external ears normal General nose exam: Normal external nose present Mouth: Normal oral and palatal mucosa present and oropharynx normal Throat: Yes posterior oropharynx normal Eyes: General: appearance normal, both eyes and all related structures Neck: Other: supple Neck: Yes normal visual inspection Chest: Chest palpation & inspection: normal inspection of the chest Resp: Auscultation: clear to auscultation bilaterally Cardio: Jugular venous distension: no JVD Rate: regular rate Rhythm: regular rhythm Heart sounds: S1 normal heart sound present and S2 normal heart sound present GI: Inspection: Yes normal to inspection Palpation (GI): Soft to palpation, nontender and No hepatosplenomegaly present Auscultation: normal bowel sounds : General: Yes no CVA tenderness Back/Spine/Pelvis: Back: no CVA tenderness Skin: General skin exam: no rashes or lesions noted Neuro: General: oriented to person and patient oriented x3 Cranial nerves: Yes CN's II-XII intact bilaterally Motor exam (neuro): 5/5 motor strength present throughout Sensory Exam: No Sensory deficit (Neuro) Extrem: Other: legs with chronic edema Psych: Appearance: grossly normal Course Course Course Narrative: This is a Rapid Medical Exam performed in triage by Radha Torrez PA-C. Full HPI, ROS and PE to be performed by primary ED provider. 78 year-old F w/ PMHx CHF, Afib, HTN presenting to the ED c/o SOB at rest and intermittent choking when eating x5 days. also reports tongue feels oily. PE: Talking in complete sentences. Lungs CTA. 2+ LE edema Plan: Labs, CXR ordered Medical Decision Making Differential Diagnosis Differential Diagnoses: The differential diagnosis associated with the presentation includes (CHF, pneumonia, aspiration pneumonia, cardiac ischemia) Admission/Observation Consideration of admission/observation: Escalation of care including admission/observation considered (upon arrival patient considered for admission) Lab Data 01/02/24 16:22 01/02/24 16:22 Labs: Lab Results 01/02/24 01/02/24 Range/Units 16:22 22:37 WBC 6.6 (4.8-10.8) X10*3/uL RBC 4.53 (4.20-5.50) X10*6/uL Hgb 12.0 (12.0-16.0) g/dl Hct 36.9 L (37.0-47.0) % MCV 81.5 (80.0-98.0) fL MCH 26.5 L (27.0-33.0) pg MCHC 32.5 (31.0-35.0) g/dl RDW 16.6 H (11.0-16.0) % Plt Count 230 (160-400) X10*3/uL MPV 10.9 (9.4-12.3) fL Immature Gran % (Auto) 0.5 H (0.0-0.4) % Neut % (Auto) 66.9 (45-73) % Lymph % (Auto) 21.6 (20-40) % [place] % (Auto) 8.2 (2-11) % Eos % (Auto) 2.3 (0-4) % Baso % (Auto) 0.5 (0-2) % Lymph # (Auto) 1.4 (1.2-4.9) X10*3/uL [place] # (Auto) 0.5 (0.1-1.2) X10*3/uL Eos # (Auto) 0.2 (0.0-0.4) X10*3/uL Baso # (Auto) 0.0 (0.0-0.2) X10*3/uL Abs Immat Gran (auto) 0.03 (0.00-0.03) X10*3/uL Absolute Neuts (auto) 4.4 (2.0-8.3) x10*3/uL Absolute Nucleated RBC 0.000 (0.0-0.012) X10*3/uL Nucleated RBC % (auto) 0.0 (0.0-0.2) /100WBC Sodium 148 H (135-145) mmol/L Potassium 4.4 (3.3-5.1) mmol/L Chloride 102 (96-108) mmol/L Carbon Dioxide 33 H (22-29) mmol/L Anion Gap 17 (12-20) BUN 15 (9-16) mg/dL Creatinine 0.83 (0.5-1.4) mg/dL Estim Creat Clear Calc 54.0 Estimated GFR > 60 Random Glucose 99 (60-115) mg/dL Calcium 10.2 (8.4-10.2) mg/dL Total Bilirubin 0.4 (0.0-1.0) mg/dL Direct Bilirubin 0.2 (0.0-0.5) mg/dL AST 19 (5-31) U/L ALT 14 (0-31) U/L Alkaline Phosphatase 161 H (39-117) U/L Troponin I High Sens 2.7 2.9 (<3.5-17.0) ng/L B-Natriuretic Peptide 28 (<100) pg/mL Total Protein 7.8 (6.5-8.0) g/dL Albumin 4.4 (3.5-5.0) g/dL Influenza Type A (PCR) NEGATIVE (Negative) Influenza Type B (PCR) NEGATIVE (Negative) RSV RNA Qual (PCR) NEGATIVE (Negative) SARS-CoV-2 RNA (RT-PCR) NEGATIVE (Negative) Independent Interpretation I performed an independent interpretation of an: EKG (sinus 60, flipped ts anteriorly which look new from old EKG and lateral st depressions which also look new) and Plain X-Ray (CXR large heart, no infiltrate) Independent Historian Clinical information obtained from an independent historian. History obtained from or confirmed by: Other (daughter) Prescription Management I considered prescription management with: Antibiotic (no evidence of pneumonia) Chronic Conditions Patient?s care impacted by: Other (CHF) Social Determinants Patient?s care significantly limited by Social Determinants of Health including: Low income Discharge Plan Discharge Clinical Impression: Choking, Cough Patient Disposition: Home, Self-Care Additional Instructions: Must see speech therapist for choking evaluation, must discuss with your doctor as soon as possible Prescriptions: No Action (DME) walker Misc See Rx Instructions .ROUTE .MEDSUPPLY Qty: 1 0RF Rx Instructions: Folding front wheeled walker furosemide 40 mg tablet 40 mg PO DAILY 90 Days Qty: 90 3RF Protocol: Hold for SBP< HOLD for SBP < : 90 amlodipine 10 mg tablet 10 mg PO QPM Qty: 90 3RF losartan 100 mg tablet 100 mg PO QAM Qty: 90 3RF Hold Instructions: Resume on 06/01/21. Eliquis 5 mg tablet 5 mg PO BID Qty: 180 3RF carvedilol 25 mg tablet 25 mg PO BID Qty: 180 1RF atorvastatin 40 mg tablet 40 mg PO DAILY 90 Days Qty: 90 3RF metformin 500 mg tablet 0.5 tab PO BID calcium carbonate 600 mg calcium (1,500 mg) tablet 1 tab PO DAILY fluticasone propionate 50 mcg/actuation spray,suspension 1 - 2 spray intranasal DAILY PRN (Reason: Nasal Congestion) cholecalciferol (vitamin D3) 25 mcg (1,000 unit) tablet 1 tab PO QAM sennosides [Senna Laxative] 8.6 mg tablet 1 tab PO DAILY PRN (Reason: Constipation) acetaminophen 325 mg Tablet 650 mg PO Q6H PRN (Reason: Pain, Mild (Pain Scale 1-3)) 30 Days Qty: 240 0RF cyanocobalamin (vitamin B-12) 1,000 mcg/mL solution 1,000 mcg IM Q28D oxybutynin chloride 5 mg tablet 5 mg PO BID ranitidine HCl 300 mg tablet 300 mg PO BEDTIME ferrous gluconate 324 mg (38 mg iron) tablet 324 mg PO DAILY ascorbic acid (vitamin C) [Vitamin C] 500 mg tablet 500 mg PO DAILY Referrals: Name,MD Balta [Primary Care Provider] - 3 days Print Language: Turkmen
--- NOTE | 2024-01-02 15:43 | ECG_ITS ---
Test Reason : SOB Blood Pressure : / mmHG Vent. Rate : 060 BPM Atrial Rate : 060 BPM P-R Int : 154 ms QRS Dur : 082 ms QT Int : 446 ms P-R-T Axes : 055 000 023 degrees QTc Int : 446 ms Normal sinus rhythm Nonspecific ST and T wave abnormality Abnormal ECG When compared with ECG of 18-DEC-2022 17:02, Nonspecific T wave abnormality now evident in Lateral leads Referred By: Radha Torrez Electronically Signed By:KARON TALAVERA MD
[2024-01-02 16:28] LABS: MANUAL DIFF FLAG NO
[2024-01-02 16:29] LABS: Basophils Percent Auto 0.5 % (0-2); Eosinophils Absolute Auto 0.2 X10*3/uL (0.0-0.4); Eosinophils Percent Auto 2.3 % (0-4); Hematocrit 36.9 % (37.0-47.0); Imm Gran Abs Auto 0.03 X10*3/uL (0.00-0.03); Imm Gran Pct Auto 0.5 % (0.0-0.4); Lymphocytes Absolute Auto 1.4 X10*3/uL (1.2-4.9); Lymphocytes Percent Auto 21.6 % (20-40); Mean Corpuscular HGB Conc 32.5 g/dl (31.0-35.0); Mean Corpuscular Hemoglobin 26.5 pg (27.0-33.0); Mean Corpuscular Volume 81.5 fL (80.0-98.0); Mean Platelet Volume 10.9 fL (9.4-12.3); Monocytes Absolute Auto 0.5 X10*3/uL (0.1-1.2); Monocytes Percent Auto 8.2 % (2-11); Neutrophils Absolute Auto 4.4 x10*3/uL (2.0-8.3); Neutrophils Percent Auto 66.9 % (45-73); Platelet Count 230 X10*3/uL (160-400); Red Blood Count 4.53 X10*6/uL (4.20-5.50); Red Cell Distribution Width 16.6 % (11.0-16.0); White Blood Count 6.6 X10*3/uL (4.8-10.8)
[2024-01-02 16:43] LABS: Alanine Aminotransferase 14 U/L (0-31); Albumin Level 4.4 g/dL (3.5-5.0); Alkaline Phosphatase 161 U/L (39-117); Anion Gap 17 (12-20); Aspartate Amino Transferase 19 U/L (5-31); Bilirubin Direct 0.2 mg/dL (0.0-0.5); Bilirubin Total 0.4 mg/dL (0.0-1.0); Blood Urea Nitrogen 15 mg/dL (9-16); Calcium 10.2 mg/dL (8.4-10.2); Carbon Dioxide 33 mmol/L (22-29); Chloride 102 mmol/L (96-108); Estimated Glomerular Filt Rate > 60; Glucose Random 99 mg/dL (60-115); Potassium 4.4 mmol/L (3.3-5.1); Sodium 148 mmol/L (135-145); Total Protein 7.8 g/dL (6.5-8.0)
[2024-01-02 16:49] LABS: B Type Natriuretic Peptide 28 pg/mL (<100)
[2024-01-02 16:50] LABS: Troponin-I High Sensitivity 2.7 ng/L (<3.5-17.0)
[2024-01-02 17:05] LABS: Influenza A PCR NEGATIVE (Negative); Influenza B PCR NEGATIVE (Negative); Resp Syncy Virus RNA Qual PCR NEGATIVE (Negative); SARS COV2 PCR INHOUSE NEGATIVE (Negative)
[2024-01-02 20:09] VITALS: BP 178/68; PULSE 70; RESP 18; TEMP 36.3; O2SAT 97
[2024-01-02 21:55] VITALS: BP 164/59; PULSE 78; RESP 18; O2SAT 98
[2024-01-02 23:11] LABS: Troponin-I High Sensitivity 2.9 ng/L (<3.5-17.0)
[2024-01-02 23:48] VITALS: BP 148/68; PULSE 67; RESP 18; TEMP 36.1; O2SAT 98
[2024-01-03] VITALS: BP 148/68; PULSE 67; RESP 18; TEMP 36.1; O2SAT 98
== END 2024-01-03 00:01 | disposition home or self-care (01) ==
PROVIDERS: Physician Assistant; Emergency Provider Emergency Medicine; PCP Internal Medicine Geriatric Medicine
DX: R09.89 Other specified symptoms and signs involving the circulatory and respiratory systems (principal); R06.02 Shortness of breath; R05.9 Cough, unspecified; R94.31 Abnormal electrocardiogram [ECG] [EKG]; Z79.899 Other long term (current) drug therapy; Z03.818 Encounter for observation for suspected exposure to other biological agents ruled out
CPT/HCPCS: 0241U; 36415; 71046; 80048; 80076; 83880; 84484; 85025; 93005; 99283; 99284

== ENCOUNTER → 2024-01-02 15:43 | Outpatient (BNV) | payer OTHER, SELFPAY | PROVIDERS: Emergency Provider Emergency Medicine; PCP Internal Medicine Geriatric Medicine; Visit Provider Internal Medicine Cardiovascular Disease | DX: R94.31 Abnormal electrocardiogram [ECG] [EKG] (principal) | CPT/HCPCS: 93010 ==

== ENCOUNTER → 2024-01-04 11:45 | Outpatient (BNV) | payer OTHER, SELFPAY | PROVIDERS: PCP Internal Medicine Geriatric Medicine; Visit Provider Radiology Diagnostic Radiology | DX: Z12.31 Encounter for screening mammogram for malignant neoplasm of breast (principal) | CPT/HCPCS: 77063; 77067 ==

== ENCOUNTER 2024-01-04 12:07 | Outpatient (REF) | payer OTHER, SELFPAY | END 2024-01-04 12:08 | disposition home or self-care (01) | LOC: HO.MAMMO 12:07 | PROVIDERS: PCP Internal Medicine Geriatric Medicine; Visit Provider Internal Medicine Geriatric Medicine | DX: Z12.31 Encounter for screening mammogram for malignant neoplasm of breast (principal) | CPT/HCPCS: 77063; 77067 ==

== ENCOUNTER 2024-02-22 09:40 | Outpatient (AMB) | payer OTHER, SELFPAY ==
[2024-02-22 09:49] VITALS: BP 140/72; PULSE 57; BMI 33.9
--- NOTE | 2024-02-22 09:49 | MHC.OFFVIS ---
Vital Signs 02/22/24 09:49 Height 5 ft 2 in Weight 185 lb 10.067 oz BMI 33.9 BP 140/72 H Blood Pressure Location Rt brachial Position Sitting Pulse 57 Pulse Source Monitor Intake Visit Reasons: fu Intake Note: f/up- pt having hard trouble catching her breath Insurance Follow Up Representative Required: Yes Insurance Follow Up Representative Name: [id number] Accompanied by: Self / Same As Patient Allergies Penicillins [PENICILLINS] Allergy (Intermediate, Verified 01/02/24 15:41) NAUSEA/HIVES Medication List - Last Reconciled 02/22/24 by Prem Adkins MD acetaminophen 650 mg (2 x 325 mg) PO Q6H PRN 30 days amlodipine 10 mg PO QPM apixaban (Eliquis) 5 mg PO BID ascorbic acid (vitamin C) (Vitamin C) 500 mg PO DAILY atorvastatin 40 mg PO DAILY 90 days calcium carbonate 1 tab PO DAILY carvedilol 25 mg PO BID cholecalciferol (vitamin D3) 1 tab PO QAM cyanocobalamin (vitamin B-12) 1,000 mcg IM Q28D ferrous gluconate 324 mg PO DAILY fluticasone propionate 50 mcg/actuation 1 - 2 sprays intranasal DAILY PRN furosemide 40 mg See Protocol PO DAILY 90 days losartan 100 mg PO QAM metformin 0.5 tabs PO BID oxybutynin chloride 5 mg PO BID ranitidine HCl 300 mg PO BEDTIME sennosides (Senna Laxative) 1 tab PO DAILY PRN walker Folding front wheeled walker HPI Comments Details: 77-year-old female with background history of hypertension and diastolic heart failure. She has been doing well. She has no chest pain or shortness of breath. No orthopnea or PND. 06/09/2023: She returns for follow-up. She has been doing well. She had admission in October 2022 at [facility] when she had atrial fibrillation and congestive heart failure. She was cardioverted and since then has been in sinus rhythm. She is on apixaban which she is tolerating well. She asked whether Eliquis a long-term drug and she has been told that this is a long-term drug for her prevent stroke. She is agreeable to take medications and is compliant with medications currently. 02/22/24: Here for f/u. She is complaining of epigastric discomfort. She is short of breath. Blood pressure is elevated. No orthopnea or PND or peripheral edema. [facility] Medical History Asthma MARIA R (acute kidney injury) GERD (gastroesophageal reflux disease) Diabetes Osteoarthritis Hyperlipidemia Chronic diastolic heart failure Hypertension JOVANNI (obstructive sleep apnea) Surgical History Hx of colonoscopy H/O: hysterectomy History of salpingoophorectomy History of tonsillectomy Family History Father HTN (hypertension) Mother HTN (hypertension) CVD (cardiovascular disease) Daughter Bone cancer Father Cancer Social History Household Members: Family Housing: House Are you a primary memory care program director to a significant other at home: No Do you presently have visiting nurse or other home services: Yes Unable to assess alcohol history related to: Unknown Alcohol intake: never Comment: Advised to remove Patient Tobacco Use Status: Never used Tobacco Second Hand Smoke Exposure: No service: No Current occupational status: retired Current occupation: Right handed Review of Systems Const Denies chills, Denies fatigue, Denies fever(s), Denies frequent falls, Denies weakness, Denies weight gain and Denies weight loss ENT Denies dizziness Card Denies chest pain, Denies leg edema, Denies lightheadedness, Denies palpitations, Denies dyspnea and Denies dyspnea on exertion Resp Denies cough, Denies dyspnea and Denies dyspnea on exertion GI Denies hematochezia Musc Denies abnormal gait, Denies muscle weakness, Denies numbness, Denies radiating pain into limb and Denies tingling Neuro Denies abnormal gait, Denies dizziness, Denies frequent falls, Denies numbness, Denies tingling and Denies weakness Endo Denies fatigue and Denies palpitations Physical Exam Vital Signs: Last Vital Signs Pulse 57 02/22/24 09:49 BP 140/72 H 02/22/24 09:49 BMI result Body Mass Index 33.9 GENERAL APPEARANCE: in no acute distress, pleasant. NECK: no carotid bruit, no significant jugular venous distention. SKIN: no suspicious lesions, warm and dry. HEART: no murmurs, regular rate and rhythm. LUNGS: Clear to auscultation bilaterally. ABDOMEN: soft, nontender. EXTREMITIES: Trace edema. PERIPHERAL PULSES: equal. NEUROLOGIC: No gross deficits, AAO X 3 Office Procedures EKG Details: Sinus bradycardia, normal axis, precordial T-wave inversions nonspecific, left ventricular hypertrophy, QTC 445 milliseconds. [id number], Complete Assessment & Plan Assessment & Plan (1) Hypertension: Code(s): I10 - Essential (primary) hypertension Category: Medical (2) Epigastric pain: Code(s): R10.13 - Epigastric pain Category: Medical (3) Chronic diastolic heart failure: Code(s): I50.32 - Chronic diastolic (congestive) heart failure Category: Medical Plan Pleasant 78-year-old female who is here for follow-up. She has background history of diastolic heart failure and paroxysmal atrial fibrillation. She is currently in sinus rhythm. Clinically she appears to be euvolemic. Blood pressure is elevated and I am adding spironolactone 25 mg daily. Given diastolic heart failure I am also adding Jardiance. Her daughter is going to check whether this is something affordable. If this is not affordable then she will not fill the script. Four epigastric discomfort I am referring her to GI for further assessment. She will probably need endoscopy. Thank you for allowing me to participate in the care of your patient. Please feel free to contact me if you have any questions. Orders: Referrals Gastroenterology Referral R10.13 - Epigastric pain Medications: New spironolactone 25 mg PO DAILY 90 tabs 3RF I50.32 - Chronic diastolic (congestive) heart failure empagliflozin (Jardiance) 10 mg PO DAILY 30 tabs 4RF I50.32 - Chronic diastolic (congestive) heart failure Coding Level of Care Code Est Pt Level 4 (09338) Diagnoses Hypertension I10 Epigastric pain R10.13 Chronic diastolic heart failure I50.32 CPT Codes EKG - CPT: 90013-[id number], Complete ([id number])
== END 2024-02-22 10:29 | disposition home or self-care (01) ==
PROVIDERS: PCP Internal Medicine Geriatric Medicine; Visit Provider Internal Medicine Cardiovascular Disease
DX: I10 Essential (primary) hypertension (principal); R10.13 Epigastric pain; I50.32 Chronic diastolic (congestive) heart failure
CPT/HCPCS: 93010; 99214

== ENCOUNTER → 2024-02-22 09:40 | Outpatient (BNVA) | payer OTHER, SELFPAY | PROVIDERS: PCP Internal Medicine Geriatric Medicine; Visit Provider Internal Medicine Cardiovascular Disease | DX: I11.0 Hypertensive heart disease with heart failure (principal); R10.13 Epigastric pain; I50.32 Chronic diastolic (congestive) heart failure | CPT/HCPCS: 93005; 99212 ==

== ENCOUNTER 2024-07-17 11:46 | Outpatient (AMB) | payer OTHER, SELFPAY ==
--- NOTE | 2024-07-17 11:48 | A.OFFVIS_ITS ---
Vital Signs 3 07/17/24 11:54 Height 5 ft 2 in Weight 181 lb 10.574 oz BMI 33.2 BP 101/57 L Blood Pressure Location Rt brachial Position Sitting Intake Visit Reasons: Epigastric pain Intake Note: New patient in office today for epigastric pain. CC: Patient c/o epigastric pain and a burning sensation. She also c/o constipation and her daughter reports that the patient was having trouble choking with foods but is now better from that. Auto Clutch Specialist Required: Yes Auto Clutch Specialist Language: Citizen Of [place] Accompanied by: Daughter Allergies Penicillins [PENICILLINS] Allergy (Intermediate, Verified 07/17/24 12:05) NAUSEA/HIVES metformin Adverse Reaction (Unknown, Verified 07/17/24 12:05) Diarrhea HPI HPI Epigastric pain: Details: 78-year-old female here for initial evaluation of epigastric pain. She is referred by [facility]. PMX JOVANNI OBESITY-BMI OF 32 Diabetes Congestive heart failure -diastolic Hypertension High cholesterol Chronic bilateral knee pain Constipation Pernicious anemia Urinary incontinence History of tubular adenoma * SURGICAL HISTORY Right total knee replacement Colonoscopy - 2015 Partida diminutive TA Hysterectomy Tonsillectomy * ALLERGIES PENICILLIN * [facility] Laboratory Tests 01/02/24 16:22 WBC 6.6 Hgb 12.0 Hct 36.9 L MCV 81.5 MCH 26.5 L Plt Count 230 Estimated GFR > 60 Total Bilirubin 0.4 Direct Bilirubin 0.2 AST 19 ALT 14 Alkaline Phosphatase 161 H TODAY'S VISIT Citizen Of [place] #Haider Wes She is here today with a female family member how provides most of the hx. THe patient is c/o in the epigastrum with eating. This is since she started taking Ozempic (!!!). This has been good for her diabetes, but now she is barely eating. There is a great deal of gas and bloating. At times she has rectal pain. She also, again since the medication, wants to eat in a semi reclining position. The asked to have the medicine discontinued because of the severity of the affects it is having on her and truly these are all expected side effects of Ozempic. It is also reasonable to expect that this is going to be amplified in someone who is on so many other medications and who is quite elderly. She is also suffering constipation. Since she is only on ranitidine in his also experiencing a burning in the epigastrium I am going to change her from ranitidine to omeprazole and I am going to try treating her constipation with Linzess. I will get an ultrasound of her gallbladder and gastric emptying study to be thorough. I am also sending simethicone. I think in the end we are going to have to send her to an tree girdler for better diabetes management because I do not think Ozempic is going to work well and this elderly lady without causing her malnutrition. Return office visit next available [facility] Medical History Tubular adenoma of colon Epigastric pain Preop cardiovascular exam Urinary urgency Pneumonia Hospital discharge follow-up Asthma MARIA R (acute kidney injury) GERD (gastroesophageal reflux disease) Diabetes Osteoarthritis Hyperlipidemia Chronic diastolic heart failure Hypertension JOVANNI (obstructive sleep apnea) Surgical History Hx of cataract surgery Status post total knee replacement, right History of arthroplasty of right knee Hx of colonoscopy H/O: hysterectomy History of salpingoophorectomy History of tonsillectomy Family History Father HTN (hypertension) Mother HTN (hypertension) CVD (cardiovascular disease) Daughter Bone cancer Father Cancer Social History Household Members: Family Housing: House Are you a primary insurance healthcare representative to a significant other at home: No Do you presently have visiting nurse or other home services: Yes Unable to assess alcohol history related to: Unknown Alcohol intake: never Comment: Advised to remove Patient Tobacco Use Status: Never used Tobacco Second Hand Smoke Exposure: No service: No Current occupational status: retired Current occupation: Right handed Review of Systems Const Denies fatigue, Denies fever(s), Denies night sweats, Reports poor appetite and Reports weight loss ENT Reports Normal hearing present, Denies dental pain, Denies dysphagia, Denies hearing loss, Denies mouth pain, Denies odynophagia, Denies throat swelling, Denies tongue swelling and Reports other (Dentition adequate) Card Reports no additional complaints Resp Reports no additional complaints GI Details: Reports abdominal pain, Denies melena, Reports bloating, Denies hematochezia, Reports constipation, Denies GI cramping, Denies dysphagia, Denies excessive flatus, Reports early satiety, Reports heartburn, Denies diarrhea, Denies nausea, Denies odynophagia, Denies vomiting and Denies hematemesis Skin/Breast Denies pruritus, Denies lesions, Denies rash and Denies jaundice Neuro Reports Normal hearing present and Denies Abnormal speech present Endo Denies fatigue Aller/Immun Denies throat swelling and Denies tongue swelling Physical Exam Vital Signs: BMI result Body Mass Index 33.2 Const General: cooperative, no acute distress, well developed and well groomed Nutritional Appearance: well nourished and obese centrally obese Orientation/consciousness: oriented to person, oriented to place and oriented to time Limitations: language barrier, ambulation with cane and other limitations HEENT Head: Yes normocephalic and Yes atraumatic Eyes General: appearance normal, both eyes and all related structures Pupils: Equal, round and reactive pupils present Neck Neck: Yes normal visual inspection and Yes no lymphadenopathy Thyroid: Thyroid normal Resp Effort & Inspection: normal respiratory effort and able to speak in complete sentences Auscultation: clear to auscultation bilaterally Cardio Rate: regular rate Rhythm: regular rhythm Heart sounds: Normal, physiologic split S2 sound present Peripheral pulses: radial pulses present and posterior tibial pulses present GI Inspection: No distended, Yes Abdominal panniculus present, Yes obesity and Yes striae Palpation (GI): Soft to palpation, Tenderness to palpation present (GI) in the epigastrum, no guarding, not rigid and No hepatosplenomegaly present Percussion: Yes normal to percussion Auscultation: Hypoactive bowel sounds present Rectal Exam - Female: deferred Abdomen image: 2 1. surgical scar Skin General skin exam: no rashes or lesions noted, turgor normal, skin not dry, no jaundice, No spider nevi and no striae Rashes: no rashes Nails: normal Neuro General: oriented to person, oriented to place and oriented to time Cranial nerves: Yes Equal, round and reactive pupils present and Yes Normal hearing present Speech: No Abnormal speech present Extrem General: Yes normal to inspection, No clubbing, No cyanosis and No edema Psych Thought process: Normal thought process present and not confabulating Thought content: Normal thought content present Insight: Good insight present (Psych) Judgement: Good judgement present (Psych) Assessment & Plan Assessment & Plan (1) Epigastric pain: Code(s): R10.13 - Epigastric pain Category: Medical (2) Chronic idiopathic constipation: Code(s): K59.04 - Chronic idiopathic constipation Category: Medical (3) Abdominal bloating: Code(s): R14.0 - Abdominal distension (gaseous) Category: Medical Plan Citizen Of [place] #Haider Live She is here today with a female family member how provides most of the hx. THe patient is c/o in the epigastrum with eating. This is since she started taking Ozempic (!!!). This has been good for her diabetes, but now she is barely eating. There is a great deal of gas and bloating. At times she has rectal pain. She also, again since the medication, wants to eat in a semi reclining position. The asked to have the medicine discontinued because of the severity of the affects it is having on her and truly these are all expected side effects of Ozempic. It is also reasonable to expect that this is going to be amplified in someone who is on so many other medications and who is quite elderly. She is also suffering constipation. Since she is only on ranitidine in his also experiencing a burning in the epigastrium I am going to change her from ranitidine to omeprazole and I am going to try treating her constipation with Linzess. I will get an ultrasound of her gallbladder and gastric emptying study to be thorough. I am also sending simethicone. I think in the end we are going to have to send her to an tree girdler for better diabetes management because I do not think Ozempic is going to work well and this elderly lady without causing her malnutrition. Return office visit next available Orders: Orders 2 US abdomen complete Today K59.04 - Chronic idiopathic constipation, R10.13 - Epigastric pain NM gastric emptying study Today K59.04 - Chronic idiopathic constipation, R10.13 - Epigastric pain Medications: New 2 linaclotide (Linzess) Take first thing in the morning with a full glass of water. 145 mcg PO QAM 30 caps 3RF K58.1 - Irritable bowel syndrome with constipation omeprazole 40 mg PO DAILY 30 days 30 caps 3RF simethicone after meals 180 mg PO TID 30 days 90 caps 3RF Coding Level of Care Code New Pt Level 3 (40649) Diagnoses Epigastric pain R10.13 Chronic idiopathic constipation K59.04 Abdominal bloating R14.0
[2024-07-17 11:54] VITALS: BP 101/57; BMI 33.2
== END 2024-07-17 12:52 | disposition home or self-care (01) ==
PROVIDERS: PCP Internal Medicine Geriatric Medicine; Visit Provider Nurse Practitioner
DX: R10.13 Epigastric pain (principal); K59.04 Chronic idiopathic constipation; R14.0 Abdominal distension (gaseous)
CPT/HCPCS: 99203

== ENCOUNTER → 2024-07-17 11:46 | Outpatient (BNVA) | payer OTHER, SELFPAY | PROVIDERS: PCP Internal Medicine Geriatric Medicine; Visit Provider Nurse Practitioner | DX: R10.13 Epigastric pain (principal); R14.0 Abdominal distension (gaseous); K58.1 Irritable bowel syndrome with constipation; K59.04 Chronic idiopathic constipation; Z79.899 Other long term (current) drug therapy | CPT/HCPCS: 99202 ==

== ENCOUNTER 2024-07-24 14:58 | Inpatient (IN) | payer OTHER, SELFPAY ==
--- NOTE | ~2024-07-24 | CT_ITS ---
CLINICAL HISTORY: diarrhea,vomiting, ABD pain, UTI, MARIA R CT abdomen and pelvis without contrast Comparison: None Findings: Limited examination without contrast. Lung bases are clear. No pleural effusion. Small hiatal hernia. Liver, Pancreas, Spleen and both adrenals show normal size, shape and attenuation on present unenhanced scan. No CBD dilatation. No calcified gallstone in the gallbladder. Both kidneys reveal normal in size, shape, position and attenuation. No kidney stone. No hydronephrosis. The IVC, aorta and portal vein are within normal position and caliber. Atherosclerosis calcification of the aorta. No evidence of retroperitoneal lymphadenopathy or ascites. Colonic diverticulosis with bowel wall thickening of the sigmoid colon. Appendix appears normal. Urinary bladder reveals normal lumen and osman. Post hysterectomy. Calcifications of the pelvis are likely to be phleboliths. Degenerative changes of the lumbar spine. IMPRESSION: Colonic diverticulosis with bowel wall thickening of the sigmoid colon. Acute diverticulitis can not be excluded. Correlation with colonoscopy findings as indicated. Additional findings as above. This document has been electronically signed by: Donald Karimi MD on 07/24/2024 21:06:26
--- NOTE | ~2024-07-24 | FL_ITS ---
EXAMINATION: XR FLUOROSCOPY UPPER GI WITH AIR CLINICAL INFORMATION: Dysphagia. COMPARISON: Barium swallow 2016. TECHNIQUE: Fluoroscopic air contrast upper GI examination was performed utilizing standard techniques with thin and thick barium and effervescent granules. Numerous spot images were obtained. FINDINGS: Lateral cine images of the oropharynx and hypopharynx demonstrate normal swallow mechanism with normal epiglottic inversion and soft palate elevation. There is trace laryngeal penetration with thick barium. No tracheal penetration, glottic or subglottic aspiration identified. No nasopharyngeal reflux present. Hypopharyngeal structures appear normal without evidence of mass or diverticulum. There was no significant cricopharyngeal achalasia. Dual and single contrast images of the esophagus demonstrate a patulous esophagus with a corkscrew appearance.No evidence of stricture, mass, or ulcerations identified. There is to and fro motion of the barium column with nonpropulsive tertiary contractions noted throughout the esophagus. No evidence of hiatus hernia identified. No significant gastroesophageal reflux was seen during the course of the examination and on reflux views. Dual contrast and single contrast images of the stomach demonstrated a normal contour. There are multiple focal areas of contrast pooling in the fundus and body of the stomach that may represent small mucosal ulcerations. Contrast freely passed into the gastric antrum and duodenal bulb without delay. Single and air-contrast images of the duodenal bulb demonstrate no abnormality. The duodenal sweep has a normal appearance, course, and mucosal fold appearance. The imaged proximal jejunum has a normal fold pattern and caliber. FLUOROSCOPY TIME: 4 minutes 43 seconds Number of Spot Images: 6 Number of Cine: 15 DOSE AREA PRODUCT: [id number] uGy-m2 (microgray-meter squared) FL/FL barium swallow with air IMPRESSION: 1. Trace laryngeal penetration with thick barium. No subglottic aspiration. 2. Patulous esophagus with a corkscrew appearance and severely disorganized peristalsis consistent with severe esophageal dysmotility. 3. Multiple focal areas of contrast pooling in the fundus and body of the stomach that may represent small mucosal ulcerations. Mild thickening of the areae gastricae also noted, findings suggestive of gastritis. Recommend correlation with EGD. This procedure was performed by Gabriel Ribeiro PA-C, and supervised by Dr. Acuna Electronically signed by: Troy Acuna MD 07/31/2024 09:04 AM [facility] [place]
[2024-07-24 15:20] VITALS: BP 129/64; PULSE 42; O2SAT 98
[2024-07-24 15:37] VITALS: BP 130/64; PULSE 60; RESP 16; TEMP 35.5; O2SAT 98; BMI 36.8
[2024-07-24 17:23] LABS: Appearance Urine Clear; Color Urine Yellow; Glucose Urine UA 250 mg/dL (Negative); Leukocyte Esterase Urine Moderate (2+) (Negative); Nitrite Urine Negative (Negative); Specific Gravity - Urine <= 1.005 (1.005-1.025); UMIC TRIGGER UACC YES; Urine Blood Negative (Negative); Urine Ketones Negative (Negative); Urine Protein Negative (Neg-Trace)
[2024-07-24 17:50] LABS: Bacteria Urine 4+ (None Seen); Squamous Epithelial Cell Urine 0-2 /HPF (0-2); UACC Culture Trigger YES
--- NOTE | 2024-07-24 18:29 | ED_ITS ---
HPI - General Adult General Chief complaint: Abdominal Pain Stated complaint: BURNING ABD PAIN,DIARRHEA PER EMS Time Seen by Provider: 07/24/24 17:54 Related Data Home Medications ?Medication ?Instructions ?Recorded ?Confirmed oxybutynin chloride 5 mg tablet 5 mg PO BID 05/15/20 05/23/23 calcium carbonate 1 tab PO DAILY 03/24/21 05/23/23 cholecalciferol (vitamin D3) 25 1 tab PO QAM 03/24/21 05/23/23 mcg (1,000 unit) tablet fluticasone propionate 50 1 - 2 spray intranasal DAILY PRN 03/24/21 05/23/23 mcg/actuation nasal Nasal Congestion spray,suspension ascorbic acid (vitamin C) 500 mg 500 mg PO DAILY 03/08/22 05/23/23 tablet (Vitamin C) ferrous gluconate 324 mg (38 mg 324 mg PO DAILY 03/08/22 05/23/23 iron) tablet cyanocobalamin (vitamin B-12) 1,000 mcg IM Q28D 11/02/22 05/23/23 1,000 mcg/mL injection solution cetirizine 10 mg tablet 10 mg PO DAILY 07/17/24 mirtazapine 15 mg tablet 15 mg PO BEDTIME 07/17/24 semaglutide 1 mg/dose (4 mg/3 mL) 1 mg subcut QWEEK 07/17/24 subcutaneous pen injector (Ozempic) Previous Rx's ?Medication ?Instructions ?Recorded walker #1 ea 03/02/21 acetaminophen 325 mg tablet 650 mg (2 x 325 mg) PO Q6H PRN 05/29/21 Pain, Mild (Pain Scale 1-3) 30 days #240 tabs losartan 100 mg tablet 100 mg PO QAM #90 tabs 09/07/23 apixaban 5 mg tablet (Eliquis) 5 mg PO BID #180 tabs 10/04/23 atorvastatin 40 mg tablet 40 mg PO DAILY 90 days #90 tabs 12/28/23 furosemide 40 mg tablet 40 mg PO DAILY 90 days #90 tabs 02/09/24 spironolactone 25 mg tablet 25 mg PO DAILY #90 tabs 02/22/24 amlodipine 10 mg tablet 10 mg PO QPM #90 tabs 05/29/24 carvedilol 25 mg tablet 25 mg PO BID #180 tabs 05/29/24 empagliflozin 10 mg tablet 10 mg PO QAM #90 tabs 06/25/24 (Jardiance) linaclotide 145 mcg capsule 145 mcg PO QAM #30 caps 07/17/24 (Linzess) omeprazole 40 mg capsule,delayed 40 mg PO DAILY 30 days #30 caps 07/17/24 release simethicone 180 mg capsule 180 mg PO TID 30 days #90 caps 07/17/24 Allergies Allergy/AdvReac Type Severity Reaction Status Date / Time Penicillins [PENICILLINS] Allergy Intermediate NAUSEA/HIVE Verified 07/24/24 15:38 S metformin AdvReac Unknown Diarrhea Verified 07/24/24 15:38 [facility] Past Medical History Medical History (Updated 07/17/24 @ 12:31 by PHUONG Kennedy) Epigastric pain Tubular adenoma of colon Preop cardiovascular exam Urinary urgency Pneumonia Hospital discharge follow-up Asthma MARIA R (acute kidney injury) GERD (gastroesophageal reflux disease) Diabetes Osteoarthritis Hyperlipidemia Chronic diastolic heart failure Hypertension JOVANNI (obstructive sleep apnea) Surgical History Hx of cataract surgery Status post total knee replacement, right History of arthroplasty of right knee Hx of colonoscopy H/O: hysterectomy History of salpingoophorectomy History of tonsillectomy Family History Family History Father HTN (hypertension) Mother HTN (hypertension) CVD (cardiovascular disease) Daughter Bone cancer Father Cancer Social History Social History Household Members: Family Housing: House Are you a primary critical care clinical nurse specialist to a significant other at home: No Do you presently have visiting nurse or other home services: Yes Unable to assess alcohol history related to: Unknown Alcohol intake: never Comment: Advised to remove Patient Tobacco Use Status: Never used Tobacco Smoked in Last 30 Days: No Second Hand Smoke Exposure: No Use of substances other than those prescribed or required for medical reasons: No Advance Directives: No Advance Directives Information Provided: No Do you have a plan to hurt others: No Plan service: No Current occupational status: retired Current occupation: Right handed Physical Exam ED Vital Signs: Vital Signs - 24 hr 01/14/25 15:37 Temperature 96 F L Pulse Rate 60 Respiratory Rate 16 Blood Pressure 130/64 Pulse Oximetry 98 Oxygen Delivery Method Room Air BMI result Body Mass Index 36.8 Medical Decision Making Lab Data Labs: Lab Results 07/24/24 Range/Units 17:15 Urine Color Yellow Urine Appearance Clear Urine pH 7.0 (5.0-9.0) Ur Specific [place] <= 1.005 (1.005-1.025) Urine Protein Negative (Neg-Trace) mg/dL Urine Glucose (UA) 250 H (Negative) mg/dL Urine Ketones Negative (Negative) mg/dL Urine Blood Negative (Negative) Urine Nitrite Negative (Negative) Ur Leukocyte Esterase Moderate (2+) H (Negative) Urine RBC 3-5 H (0-2) /HPF Urine WBC 11-20 H (0-5) /HPF Ur Squamous Epith Cells 0-2 (0-2) /HPF Urine Bacteria 4+ (None Seen) Hyaline Casts 3-5 (0-2) /LPF Discharge Plan Discharge Prescriptions: No Action (DME) walker Misc See Rx Instructions .ROUTE .MEDSUPPLY Qty: 1 0RF Rx Instructions: Folding front wheeled walker losartan 100 mg tablet 100 mg PO QAM Qty: 90 3RF Eliquis 5 mg tablet 5 mg PO BID Qty: 180 3RF atorvastatin 40 mg tablet 40 mg PO DAILY 90 Days Qty: 90 3RF furosemide 40 mg tablet 40 mg PO DAILY 90 Days Qty: 90 3RF Protocol: Hold for SBP< HOLD for SBP < : 90 amlodipine 10 mg tablet 10 mg PO QPM Qty: 90 3RF carvedilol 25 mg tablet 25 mg PO BID Qty: 180 1RF Jardiance 10 mg tablet 10 mg PO QAM Qty: 90 3RF calcium carbonate 600 mg calcium (1,500 mg) tablet 1 tab PO DAILY fluticasone propionate 50 mcg/actuation spray,suspension 1 - 2 spray intranasal DAILY PRN (Reason: Nasal Congestion) cholecalciferol (vitamin D3) 25 mcg (1,000 unit) tablet 1 tab PO QAM acetaminophen 325 mg Tablet 650 mg PO Q6H PRN (Reason: Pain, Mild (Pain Scale 1-3)) 30 Days Qty: 240 0RF cyanocobalamin (vitamin B-12) 1,000 mcg/mL solution 1,000 mcg IM Q28D oxybutynin chloride 5 mg tablet 5 mg PO BID ferrous gluconate 324 mg (38 mg iron) tablet 324 mg PO DAILY ascorbic acid (vitamin C) [Vitamin C] 500 mg tablet 500 mg PO DAILY mirtazapine 15 mg tablet 15 mg PO BEDTIME cetirizine 10 mg tablet 10 mg PO DAILY Ozempic 1 mg/dose (4 mg/3 mL) pen injector 1 mg subcut QWEEK Linzess 145 mcg capsule 145 mcg PO QAM Qty: 30 3RF Rx Instructions: Take first thing in the morning with a full glass of water. omeprazole 40 mg capsule,delayed release(DR/EC) 40 mg PO DAILY 30 Days Qty: 30 3RF simethicone 180 mg capsule 180 mg PO TID 30 Days Qty: 90 3RF Rx Instructions: after meals spironolactone 25 mg tablet 25 mg PO DAILY Qty: 90 3RF Print Language: Moh[place]
--- NOTE | 2024-07-24 18:29 | ED.ABDPAIN ---
HPI - Abdominal Pain General Chief Complaint: Abdominal Pain Stated Complaint: BURNING ABD PAIN,DIARRHEA PER EMS Time Seen by Provider: 07/24/24 17:54 Source: patient and EMS Mode of arrival: EMS Limitations: no limitations History of Present Illness ED Provider: gema bower NP HPI narrative: Patient is an 78-year-old female who presents emergency department primary concern of diarrhea. She reports 1 episode yesterday and 2 episodes of today with water as well as hard formed stools. She reports that she started taking Linzess yesterday and took a 2nd dose today which is new for her due to her chronic constipation. Denies hematochezia or melena. She did admit to having abdominal pain though this is chronic epigastric pain that she has been experiencing for the past year which is not increased from her baseline. She denies associated nausea or vomiting. She denies having genitourinary symptoms. Denies pelvic pain. No abnormal vaginal discharge or bleeding. Related Data Home Medications ?Medication ?Instructions ?Recorded ?Confirmed oxybutynin chloride 5 mg tablet 5 mg PO BID 05/15/20 07/24/24 calcium carbonate 1 tab PO DAILY 03/24/21 07/24/24 cholecalciferol (vitamin D3) 25 1 tab PO DAILY 03/24/21 07/24/24 mcg (1,000 unit) tablet fluticasone propionate 50 1 - 2 spray intranasal DAILY PRN 03/24/21 07/24/24 mcg/actuation nasal Nasal Congestion spray,suspension cyanocobalamin (vitamin B-12) 1,000 mcg IM Q28D 11/02/22 07/24/24 1,000 mcg/mL injection solution cetirizine 10 mg tablet 10 mg PO DAILY 07/17/24 07/24/24 mirtazapine 15 mg tablet 15 mg PO BEDTIME 07/17/24 07/24/24 amlodipine 10 mg tablet 10 mg PO BEDTIME 07/24/24 07/24/24 empagliflozin 10 mg tablet 10 mg PO DAILY 07/24/24 07/24/24 (Jardiance) linaclotide 145 mcg capsule 145 mcg PO DAILY 07/24/24 07/24/24 (Linzess) losartan 100 mg tablet 100 mg PO DAILY 07/24/24 07/24/24 Previous Rx's ?Medication ?Instructions ?Recorded walker #1 ea 03/02/21 acetaminophen 325 mg tablet 650 mg (2 x 325 mg) PO Q6H PRN 05/29/21 Pain, Mild (Pain Scale 1-3) 30 days #240 tabs apixaban 5 mg tablet (Eliquis) 5 mg PO BID #180 tabs 10/04/23 atorvastatin 40 mg tablet 40 mg PO DAILY 90 days #90 tabs 12/28/23 furosemide 40 mg tablet 40 mg PO DAILY 90 days #90 tabs 02/09/24 spironolactone 25 mg tablet 25 mg PO DAILY #90 tabs 02/22/24 carvedilol 25 mg tablet 25 mg PO BID #180 tabs 05/29/24 simethicone 180 mg capsule 180 mg PO TID 30 days #90 caps 07/17/24 Allergies Allergy/AdvReac Type Severity Reaction Status Date / Time Penicillins [PENICILLINS] Allergy Intermediate NAUSEA/HIVE Verified 07/24/24 15:38 S metformin AdvReac Unknown Diarrhea Verified 07/24/24 15:38 Review of Systems Review of Systems Yes all other systems are reviewed and are negative PMFSH Past Medical History Attestation statement: The following information was validated with the patient. Source: old records reviewed Medical History (Updated 07/25/24 @ 00:40 by Vida Bower CNP) Epigastric pain Tubular adenoma of colon Preop cardiovascular exam Urinary urgency Pneumonia Hospital discharge follow-up Asthma MARIA R (acute kidney injury) GERD (gastroesophageal reflux disease) Diabetes Osteoarthritis Hyperlipidemia Chronic diastolic heart failure Hypertension JOVANNI (obstructive sleep apnea) Surgical History Hx of cataract surgery Status post total knee replacement, right History of arthroplasty of right knee Hx of colonoscopy H/O: hysterectomy History of salpingoophorectomy History of tonsillectomy Family History Family History Father HTN (hypertension) Mother HTN (hypertension) CVD (cardiovascular disease) Daughter Bone cancer Father Cancer Social History Social History Household Members: Family Housing: House Are you a primary direct care professional to a significant other at home: No Do you presently have visiting nurse or other home services: Yes Unable to assess alcohol history related to: Unknown Alcohol intake: never Comment: Advised to remove Patient Tobacco Use Status: Never used Tobacco Smoked in Last 30 Days: No Second Hand Smoke Exposure: No Use of substances other than those prescribed or required for medical reasons: No Advance Directives: No Advance Directives Information Provided: No Do you have a plan to hurt others: No Plan service: No Current occupational status: retired Current occupation: Right handed Physical Exam ED Vital Signs: Vital Signs - 24 hr 07/24/24 15:37 07/24/24 20:40 07/24/24 20:40 Temperature 96 F L 97 F Pulse Rate 60 63 62 Respiratory Rate 16 17 13 Blood Pressure 130/64 125/49 L 126/40 L Pulse Oximetry 98 96 97 Oxygen Delivery Method Room Air Room Air Room Air BMI result Body Mass Index 36.8 Appearance: Alert.?Oriented to person, place and time. No acute distress.?Normal affect.?? Neck: Normal inspection.? Neck supple.?? CVS: Heart sounds normal. Normal heart rate and rhythm.? Pulses normal.?? Respiratory: No respiratory distress.? Lung sounds clear to auscultation bilaterally?? Abdomen: Soft and non-tender. No rebound tenderness at McBurney's point. Negative psoas sign. Negative Rovsing sign. Negative Sanchez sign. No CVAT. Normoactive bowel sounds. No pulsatile mass.?? Skin: Skin warm and dry.? Normal skin color.? Extremities: No lower extremity edema.? Neuro: Moves all extremities spontaneously. Sensation intact bilaterally. Ambulates with normal steady gait. Course Reevaluation(s) Reevaluation #1: CBC is without leukocytosis, has chronic stable normocytic anemia, thrombocytopenia. Found to have hyperkalemia of 6.3, though in the setting of diarrheal illness I anticipated the whether this would be low, also has MARIA R with BUN of 51 and creatinine 2.29. Elevated creatinine indicator for organ dysfunction in the setting of urinary tract infection. Sepsis alert called. Blood cultures and lactic acid being obtained at this time. She is without hypotension, will defer full sepsis fluid bolus given her history of heart failure at this time, pending lactic acid. Patient will receive 1 L normal saline IV fluid. Obtaining CT abdomen pelvis to evaluate further for pyelonephritis, obstructive uropathy. Obtaining EKG to evaluate for acute hyperkalemic changes in addition to receive Lu insulin 5 units IV push in addition to D50. Speak with hospitalist regarding admission to medicine service. Time: 20:14 Medical Decision Making Medical Decision Making [facility] Narrative: Patient is an 78-year-old female with past medical history of chronic epigastric pain, asthma, GERD, diabetes, hyperlipidemia, diastolic heart failure, hypertension, JOVANNI presents emergency department for evaluation primary concern for diarrhea in the setting of having started Linzess yesterday. Epigastric abdominal pain is chronic and not increased from baseline. Her abdominal examination is benign overall without signs of systemic toxicity found to be afebrile without tachycardia, no hypotension. Examination not consistent with acute abdomen, no peritoneal signs; no tenderness upon light palpation, no rebound tenderness, no guarding, no percussive tenderness. No rebound tenderness at McBurney's point, rigidity, guarding to suggest acute appendicitis. No tenderness of the left lower quadrant nor associated nausea, vomiting, constipation, hematochezia or melena low suspicion of diverticulitis, not consistent with GI bleed. Suspect this is likely secondary to taking Linzess. No appreciable hernia to suggest strangulation/incarceration. Lower suspicion for bowel obstruction. No distention or rigidity to suggest GI perforation. Although she does not endorse genitourinary symptoms, urinalysis was obtained prior to my assumption of care revealing 2+ leukocyte esterase 11-20 urine WBC and 4+ bacteria without squamous epithelial cells concerning for urinary tract infection, will cover with cefuroxime. Differential Diagnosis Differential Diagnoses: The differential diagnosis associated with the presentation includes (See narrative above) Admission/Observation Consideration of admission/observation: Escalation of care including admission/observation considered (See narrative above ) Lab Data [facility] Lab Attestation statement: I reviewed the patient's lab results. 07/24/24 19:20 07/24/24 21:08 Labs: Lab Results 07/24/24 07/24/24 07/24/24 Range/Units 17:15 19:20 20:59 WBC 6.5 (4.8-10.8) X10*3/uL RBC 4.09 L (4.20-5.50) X10*6/uL Hgb 11.3 L (12.0-16.0) g/dl Hct 34.5 L (37.0-47.0) % MCV 84.4 (80.0-98.0) fL MCH 27.6 (27.0-33.0) pg MCHC 32.8 (31.0-35.0) g/dl RDW 16.1 H (11.0-16.0) % Plt Count 210 (160-400) X10*3/uL MPV 10.6 (9.4-12.3) fL Immature Gran % (Auto) 0.6 H (0.0-0.4) % Neut % (Auto) 72.3 (45-73) % Lymph % (Auto) 19.9 L (20-40) % [place] % (Auto) 5.4 (2-11) % Eos % (Auto) 1.5 (0-4) % Baso % (Auto) 0.3 (0-2) % Lymph # (Auto) 1.3 (1.2-4.9) X10*3/uL [place] # (Auto) 0.4 (0.1-1.2) X10*3/uL Eos # (Auto) 0.1 (0.0-0.4) X10*3/uL Baso # (Auto) 0.0 (0.0-0.2) X10*3/uL Abs Immat Gran (auto) 0.04 H (0.00-0.03) X10*3/uL Absolute Neuts (auto) 4.7 (2.0-8.3) x10*3/uL Absolute Nucleated RBC 0.000 (0.0-0.012) X10*3/uL Nucleated RBC % (auto) 0.0 (0.0-0.2) /100WBC Sodium 139 (135-145) mmol/L Potassium 6.3 H* D (3.3-5.1) mmol/L Chloride 110 H (96-108) mmol/L Carbon Dioxide 25 (22-29) mmol/L Anion Gap 10 L (12-20) BUN 51 H (9-16) mg/dL Creatinine 2.29 H (0.5-1.4) mg/dL Estim Creat Clear Calc 19.0 Estimated GFR 21 POC Glucose 70 (60-115) mg/dL Random Glucose 97 (60-115) mg/dL Lactic Acid (0.5-2.0) mmol/L Calcium 9.8 (8.4-10.2) mg/dL Magnesium 2.4 (1.6-2.6) mg/dL Total Bilirubin 0.3 (0.0-1.0) mg/dL AST 30 (5-31) U/L ALT 30 (0-31) U/L Alkaline Phosphatase 193 H (39-117) U/L Total Protein 7.6 (6.5-8.0) g/dL Albumin 4.1 (3.5-5.0) g/dL Lipase 38 (8-78) U/L Urine Color Yellow Urine Appearance Clear Urine pH 7.0 (5.0-9.0) Ur Specific Kaiser <= 1.005 (1.005-1.025) Urine Protein Negative (Neg-Trace) mg/dL Urine Glucose (UA) 250 H (Negative) mg/dL Urine Ketones Negative (Negative) mg/dL Urine Blood Negative (Negative) Urine Nitrite Negative (Negative) Ur Leukocyte Esterase Moderate (2+) H (Negative) Urine RBC 3-5 H (0-2) /HPF Urine WBC 11-20 H (0-5) /HPF Ur Squamous Epith Cells 0-2 (0-2) /HPF Urine Bacteria 4+ (None Seen) Hyaline Casts 3-5 (0-2) /LPF Influenza Type A (PCR) NEGATIVE (Negative) Influenza Type B (PCR) NEGATIVE (Negative) RSV RNA Qual (PCR) NEGATIVE (Negative) SARS-CoV-2 RNA (RT-PCR) NEGATIVE (Negative) 07/24/24 Range/Units 21:08 WBC (4.8-10.8) X10*3/uL RBC (4.20-5.50) X10*6/uL Hgb (12.0-16.0) g/dl Hct (37.0-47.0) % MCV (80.0-98.0) fL MCH (27.0-33.0) pg MCHC (31.0-35.0) g/dl RDW (11.0-16.0) % Plt Count (160-400) X10*3/uL MPV (9.4-12.3) fL Immature Gran % (Auto) (0.0-0.4) % Neut % (Auto) (45-73) % Lymph % (Auto) (20-40) % [place] % (Auto) (2-11) % Eos % (Auto) (0-4) % Baso % (Auto) (0-2) % Lymph # (Auto) (1.2-4.9) X10*3/uL [place] # (Auto) (0.1-1.2) X10*3/uL Eos # (Auto) (0.0-0.4) X10*3/uL Baso # (Auto) (0.0-0.2) X10*3/uL Abs Immat Gran (auto) (0.00-0.03) X10*3/uL Absolute Neuts (auto) (2.0-8.3) x10*3/uL Absolute Nucleated RBC (0.0-0.012) X10*3/uL Nucleated RBC % (auto) (0.0-0.2) /100WBC Sodium 138 (135-145) mmol/L Potassium 5.4 H (3.3-5.1) mmol/L Chloride 111 H (96-108) mmol/L Carbon Dioxide 23 (22-29) mmol/L Anion Gap 9 L (12-20) BUN 49 H (9-16) mg/dL Creatinine 2.14 H (0.5-1.4) mg/dL Estim Creat Clear Calc 20.3 Estimated GFR 22 POC Glucose (60-115) mg/dL Random Glucose 74 (60-115) mg/dL Lactic Acid 1.0 (0.5-2.0) mmol/L Calcium 9.9 (8.4-10.2) mg/dL Magnesium (1.6-2.6) mg/dL Total Bilirubin (0.0-1.0) mg/dL AST (5-31) U/L ALT (0-31) U/L Alkaline Phosphatase (39-117) U/L Total Protein (6.5-8.0) g/dL Albumin (3.5-5.0) g/dL Lipase (8-78) U/L Urine Color Urine Appearance Urine pH (5.0-9.0) Ur Specific Kaiser (1.005-1.025) Urine Protein (Neg-Trace) mg/dL Urine Glucose (UA) (Negative) mg/dL Urine Ketones (Negative) mg/dL Urine Blood (Negative) Urine Nitrite (Negative) Ur Leukocyte Esterase (Negative) Urine RBC (0-2) /HPF Urine WBC (0-5) /HPF Ur Squamous Epith Cells (0-2) /HPF Urine Bacteria (None Seen) Hyaline Casts (0-2) /LPF Influenza Type A (PCR) (Negative) Influenza Type B (PCR) (Negative) RSV RNA Qual (PCR) (Negative) SARS-CoV-2 RNA (RT-PCR) (Negative) Independent Historian Clinical information obtained from an independent historian. History obtained from or confirmed by: EMS and Other (Daughter) External Record Review External record reviewed: Outpatient record Chronic Conditions Patient?s care impacted by: Other (See narrative above) Medications Administered Generic Name Dose Route Start Last Admin Trade Name Freq PRN Reason Stop Dose Admin Dextrose 250 mls @ 750 mls/hr 07/24/24 20:08 07/24/24 21:30 D10 IV 0 mls/hr Q15M PRN Infusion per Hypoglycemia Standing Ord. Metronidazole 500 mg in 100 mls @ 100 mls/hr 07/24/24 22:00 07/25/24 00:22 Flagyl IV Infused Q8H BENJIE Infusion Mirtazapine 15 mg 07/24/24 22:30 07/24/24 23:41 Mirtazapine 15 Mg Tablet PO 15 mg BEDTIME BENJIE Administration Sodium Chloride 3 ml 07/25/24 00:00 07/25/24 00:21 0.9 % Sodium Chloride Flush 3 Ml Syringe IVFLUSH 3 ml QSHIFT BENJIE Administration Discontinued Medications Generic Name Dose Route Start Last Admin Trade Name Freq PRN Reason Stop Dose Admin Ceftriaxone Sodium 1 gm 07/24/24 18:31 07/24/24 19:31 Ceftriaxone Sodium 1 Gm Vial IVPUSH 07/24/24 18:32 1 gm ONCE ONE Administration Sodium Chloride 1,000 mls @ 999 mls/hr 07/24/24 20:15 07/24/24 21:30 Ns IV 07/24/24 21:15 0 mls/hr .Q1H1M BENJIE Infusion Insulin Human Regular 5 unit 07/24/24 20:08 07/24/24 20:41 Insulin Regular, Human 100 Unit/Ml 10 Ml Vial IVPUSH 07/24/24 20:09 5 unit ONCE ONE Administration Sodium Zirconium Cyclosilicate 10 gm 07/24/24 20:08 07/24/24 20:42 Sodium Zirconium Cyclosilicate 10 Gm Powd.Pack PO 07/24/24 20:09 10 gm ONCE ONE Administration Discharge Plan Discharge Clinical Impression: MARIA R (acute kidney injury), UTI (urinary tract infection), Acute hyperkalemia, Diarrhea Patient Disposition: Admitted As Inpatient
[2024-07-24 19:23] LABS: MANUAL DIFF FLAG NO
[2024-07-24 19:24] LABS: Basophils Percent Auto 0.3 % (0-2); Eosinophils Absolute Auto 0.1 X10*3/uL (0.0-0.4); Eosinophils Percent Auto 1.5 % (0-4); Hematocrit 34.5 % (37.0-47.0); Hemoglobin 11.3 g/dl (12.0-16.0); Imm Gran Abs Auto 0.04 X10*3/uL (0.00-0.03); Imm Gran Pct Auto 0.6 % (0.0-0.4); Lymphocytes Absolute Auto 1.3 X10*3/uL (1.2-4.9); Lymphocytes Percent Auto 19.9 % (20-40); Mean Corpuscular HGB Conc 32.8 g/dl (31.0-35.0); Mean Corpuscular Hemoglobin 27.6 pg (27.0-33.0); Mean Corpuscular Volume 84.4 fL (80.0-98.0); Mean Platelet Volume 10.6 fL (9.4-12.3); Monocytes Absolute Auto 0.4 X10*3/uL (0.1-1.2); Monocytes Percent Auto 5.4 % (2-11); Neutrophils Absolute Auto 4.7 x10*3/uL (2.0-8.3); Neutrophils Percent Auto 72.3 % (45-73); Platelet Count 210 X10*3/uL (160-400); Red Blood Count 4.09 X10*6/uL (4.20-5.50); Red Cell Distribution Width 16.1 % (11.0-16.0); White Blood Count 6.5 X10*3/uL (4.8-10.8)
[2024-07-24] MEDS: cefTRIAXone sodium 1 GM VIAL IVPUSH (19:31)
[2024-07-24 19:53] LABS: Alanine Aminotransferase 30 U/L (0-31); Albumin Level 4.1 g/dL (3.5-5.0); Alkaline Phosphatase 193 U/L (39-117); Anion Gap 10 (12-20); Aspartate Amino Transferase 30 U/L (5-31); Bilirubin Total 0.3 mg/dL (0.0-1.0); Blood Urea Nitrogen 51 mg/dL (9-16); Calcium 9.8 mg/dL (8.4-10.2); Carbon Dioxide 25 mmol/L (22-29); Chloride 110 mmol/L (96-108); Estimated Glomerular Filt Rate 21; Glucose Random 97 mg/dL (60-115); Lipase 38 U/L (8-78); Magnesium 2.4 mg/dL (1.6-2.6); Potassium 6.3 mmol/L (3.3-5.1); Sodium 139 mmol/L (135-145); Total Protein 7.6 g/dL (6.5-8.0)
[2024-07-24 20:02] LABS: Influenza A PCR NEGATIVE (Negative); Influenza B PCR NEGATIVE (Negative); Resp Syncy Virus RNA Qual PCR NEGATIVE (Negative); SARS COV2 PCR INHOUSE NEGATIVE (Negative)
--- NOTE | 2024-07-24 20:08 | ECG_ITS ---
Test Reason : SEPSIS Blood Pressure : */* mmHG Vent. Rate : 64 BPM Atrial Rate : 64 BPM P-R Int : 148 ms QRS Dur : 78 ms QT Int : 424 ms P-R-T Axes : 46 5 7 degrees QTcB Int : 437 ms Normal sinus rhythm Nonspecific T wave abnormality Abnormal ECG When compared with ECG of 02-Jan-2024 16:06, No significant change was found Referred By: Vida Regalado Electronically Signed By: Prem Adkins
[2024-07-24 20:40] VITALS: BP 125/49; BP 126/40; PULSE 62; PULSE 63; RESP 13; RESP 17; TEMP 36.1; O2SAT 96; O2SAT 97
[2024-07-24] MEDS: Insulin Regular, Human 100 UNIT/ML 10 ML VIAL IVPUSH (20:41)
[2024-07-24] MEDS: Sodium Zirconium Cyclosilicate 10 GM POWD.PACK PO (20:42)
[2024-07-24] MEDS: 0.9 % Sodium Chloride 1,000 ML 999 ML IV (20:42)
--- NOTE | 2024-07-24 21:00 | PC.NURSE ---
1905 assumed care of pt, ceftriaxone ordered and labs still to be drawn. This RN put IV, obtained labs and verified with Michael [place] blood cultures were not needed. Per Michael no BC needed at this time. Ceftriaxone administered per orders. K- 6.3 Michael Pritchard ordered for EKS, CT, IV insulin, Lokelma and fluids. Pt brought to CT and then placed on monitor, EKG completed, BC and lactic drawn by tech. Medications administered per oders and IV fluids running at this time.
[2024-07-24 21:02] LABS: Glucose, Whole Blood 70 mg/dL (60-115)
[2024-07-24] MEDS: Dextrose 10 % 250 ML 750 ML IV (21:16)
[2024-07-24 21:36] LABS: Anion Gap 9 (12-20); Blood Urea Nitrogen 49 mg/dL (9-16); Calcium 9.9 mg/dL (8.4-10.2); Carbon Dioxide 23 mmol/L (22-29); Chloride 111 mmol/L (96-108); Creatinine Clr Calc Pharmacy 20.3; Estimated Glomerular Filt Rate 22; Glucose Random 74 mg/dL (60-115); Potassium 5.4 mmol/L (3.3-5.1); Sodium 138 mmol/L (135-145)
[2024-07-24 21:40] VITALS: BP 126/40; PULSE 62; RESP 13; TEMP 36.1; O2SAT 97
--- NOTE | 2024-07-24 21:56 | PHA.MEDREC ---
Addendum entered by Ozzie Kwan 07/24/24 22:09: reviewed Original Note: Pharmacy Consult ? Medication Reconciliation Pharmacy has completed the medication reconciliation. Spoke with patients daughter Rina at bedside with help from resident in diagnostic radiology. The daughter had her moms med box list of medications and had RX bottles for Cetirizine 10mg tabs once daily, Linzess 145mcg once daily and Spironolactone 25mg tab once daily. The daughter states her mom is not taking the Trulicity anymore and states her moms GI Dr stopped that the first week of July. She confirmed her mom just started the Linzess 145mcg yesterday. The daughter confirmed her moms took her medications yesterday.
--- NOTE | 2024-07-24 22:06 | P.HPHOSP_ITS ---
History of Present Illness Date of Service: 07/24/24 Attending physician on admission: Leatha Singleton Chief Complaint: diarrhea, abd pain Patient is an 78-year-old female with a past medical history significant for chronic idiopathic constipation, obstructive sleep apnea, hyperlipidemia, GERD, asthma unspecified, CHF, paroxysmal atrial fibrillation on Eliquis, and obesity, who presented to the ED due to diarrhea and abdominal pain. She reports that she has chronic constipation and was recently started on Linzess by her online marketing coordinator which started with diarrhea and abdominal cramping today. The cramping is mostly in the upper abdomen which has been chronic. She denies any left lower quadrant pain, fever, chills, nausea, vomiting or hematochezia. She reports that she has had a poor appetite and abdominal bloating since taking Trulicity and Ozempic which she recently stopped. Review of Systems 2 Constitutional: Constitutional: Denies chills, Denies fatigue, Denies fever(s) and Denies headache(s) Eyes: Eyes: Denies change in vision ENT: Denies headache(s), Denies nasal congestion, Denies nasal discharge and Denies sore throat Cardiovascular: Cardiovascular: Denies chest pain, Denies rapid heart rate, Denies leg edema, Denies lightheadedness and Denies dyspnea Respiratory: Respiratory: Denies chest congestion, Denies cough, Denies dyspnea and Denies wheezing Gastrointestinal: Gastrointestinal: Denies melena, Reports bloating, Denies hematochezia, Reports constipation, Reports early satiety, Reports diarrhea, Denies nausea and Denies vomiting Genitourinary: Genitourinary: Denies hematuria, Denies dysuria and Denies urinary urgency Comments: Urinary frequency Musculoskeletal: Musculoskeletal: Denies myalgias Integumentary/Breasts: Skin/Breast: Denies rash Neurologic: Denies confusion and Denies headache(s) Psychiatric: Psychiatric: Denies confusion Endocrine: Endocrine: Denies fatigue Hematologic/Lymphatic: Hematologic/Lymphatic: Denies easy bleeding and Denies easy bruising Allergic/Immunologic: Allergic/Immunologic: Denies wheezing [facility] Medical History (Updated 07/24/24 @ 22:26 by Rina Mitchell PA-C) Epigastric pain Tubular adenoma of colon Preop cardiovascular exam Urinary urgency Pneumonia Hospital discharge follow-up Asthma MARIA R (acute kidney injury) GERD (gastroesophageal reflux disease) Diabetes Osteoarthritis Hyperlipidemia Chronic diastolic heart failure Hypertension JOVANNI (obstructive sleep apnea) Family History Father HTN (hypertension) Mother HTN (hypertension) CVD (cardiovascular disease) Daughter Bone cancer Father Cancer Surgical History Hx of cataract surgery Status post total knee replacement, right History of arthroplasty of right knee Hx of colonoscopy H/O: hysterectomy History of salpingoophorectomy History of tonsillectomy Social History Household Members: Family Housing: House Are you a primary floor care specialist to a significant other at home: No Do you presently have visiting nurse or other home services: Yes Unable to assess alcohol history related to: Unknown Alcohol intake: never Comment: Advised to remove Patient Tobacco Use Status: Never used Tobacco Smoked in Last 30 Days: No Second Hand Smoke Exposure: No Use of substances other than those prescribed or required for medical reasons: No Advance Directives: No Advance Directives Information Provided: No Do you have a plan to hurt others: No Plan service: No Current occupational status: retired Current occupation: Right handed Narrative: No smoking, alcohol or drug use Meds Allergies Allergy/AdvReac Type Severity Reaction Status Date / Time Penicillins [PENICILLINS] Allergy Intermediate NAUSEA/HIVE Verified 07/24/24 15:38 S metformin AdvReac Unknown Diarrhea Verified 07/24/24 15:38 Active Medications: Current Medications Acetaminophen (Acetaminophen 325 Mg Tablet) 650 mg PO Q6H PRN PRN Reason: Pain, Mild 1-3,fever,headache Calcium Carbonate (Calcium Carbonate 750 Mg Tab.Chew) 750 mg PO Q4H PRN PRN Reason: Heartburn Ceftriaxone Sodium (Ceftriaxone Sodium 1 Gm Vial) 1 gm IVPUSH Q24H BENJIE Dextrose (D10) 250 mls @ 750 mls/hr IV Q15M PRN PRN Reason: per Hypoglycemia Standing Ord. Last Admin: 07/24/24 21:16 Dose: 750 mls/hr Metronidazole (Flagyl) 500 mg in 100 mls @ 100 mls/hr IV Q8H BENJIE Magnesium Hydroxide (Milk Of Magnesia 30 Ml Oral.Susp) 30 ml PO DAILY PRN PRN Reason: Constipation Melatonin (Melatonin 3 Mg Tablet) 6 mg PO BEDTIME PRN PRN Reason: Insomnia Ondansetron HCl (Ondansetron Hcl 4 Mg/2 Ml Vial) 4 mg IVPUSH Q8H PRN PRN Reason: Nausea and Vomiting Sodium Chloride (0.9 % Sodium Chloride Flush 3 Ml Syringe) 3 ml IVFLUSH QSHIFT [facility] Medications ?Medication ?Instructions ?Recorded ?Confirmed ?Last Taken ?Type oxybutynin chloride 5 mg tablet 5 mg PO BID 05/15/20 07/24/24 07/23/24 History calcium carbonate 1 tab PO DAILY 03/24/21 07/24/24 07/23/24 History cholecalciferol (vitamin D3) 25 1 tab PO DAILY 03/24/21 07/24/24 07/23/24 History mcg (1,000 unit) tablet fluticasone propionate 50 1 - 2 spray intranasal DAILY PRN 03/24/21 07/24/24 11/01/22 History mcg/actuation nasal Nasal Congestion spray,suspension cyanocobalamin (vitamin B-12) 1,000 mcg IM Q28D 11/02/22 07/24/24 07/03/24 History 1,000 mcg/mL injection solution cetirizine 10 mg tablet 10 mg PO DAILY 07/17/24 07/24/24 07/23/24 History mirtazapine 15 mg tablet 15 mg PO BEDTIME 07/17/24 07/24/24 07/23/24 History amlodipine 10 mg tablet 10 mg PO BEDTIME 07/24/24 07/24/24 07/23/24 History empagliflozin 10 mg tablet 10 mg PO DAILY 07/24/24 07/24/24 07/23/24 History (Jardiance) linaclotide 145 mcg capsule 145 mcg PO DAILY 07/24/24 07/24/24 07/23/24 History (Linzess) losartan 100 mg tablet 100 mg PO DAILY 07/24/24 07/24/24 07/23/24 History Physical Exam 2 Vital Signs and Narrative: Vital Signs: Last Vital Signs Temp 96 F L 07/24/24 15:37 Pulse 60 07/24/24 15:37 Resp 16 07/24/24 15:37 BP 130/64 07/24/24 15:37 Pulse Ox 98 07/24/24 15:37 O2 Del Method Room Air 07/24/24 15:37 BMI result Body Mass Index 36.8 General: AOx3, no acute distress, seen with daughter at bedside and 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 Motor grossly intact bilaterally Extremities: No LE edema Psych: Appropriate affect Const: General: No confusion Orientation/consciousness: No confusion Neuro: General: No confusion Results Labs 07/24/24 19:20 07/24/24 21:08 Labs: Laboratory Results - last 24 hr 07/24/24 07/24/24 07/24/24 17:15 19:20 20:59 MCV 84.4 MCH 27.6 MCHC 32.8 RDW 16.1 H Plt Count 210 MPV 10.6 Immature Gran % (Auto) 0.6 H Neut % (Auto) 72.3 Lymph % (Auto) 19.9 L [place] % (Auto) 5.4 Eos % (Auto) 1.5 Baso % (Auto) 0.3 Lymph # (Auto) 1.3 [place] # (Auto) 0.4 Eos # (Auto) 0.1 Baso # (Auto) 0.0 Abs Immat Gran (auto) 0.04 H Absolute Neuts (auto) 4.7 Absolute Nucleated RBC 0.000 Nucleated RBC % (auto) 0.0 Anion Gap 10 L Estim Creat Clear Calc 19.0 Estimated GFR 21 POC Glucose 70 Random Glucose 97 Lactic Acid Calcium 9.8 Magnesium 2.4 Total Bilirubin 0.3 AST 30 ALT 30 Alkaline Phosphatase 193 H Total Protein 7.6 Albumin 4.1 Lipase 38 Urine Color Yellow Urine Appearance Clear Urine pH 7.0 Ur Specific [place] <= 1.005 Urine Protein Negative Urine Glucose (UA) 250 H Urine Ketones Negative Urine Blood Negative Urine Nitrite Negative Ur Leukocyte Esterase Moderate (2+) H Urine RBC 3-5 H Urine WBC 11-20 H Ur Squamous Epith Cells 0-2 Urine Bacteria 4+ Hyaline Casts 3-5 Influenza Type A (PCR) NEGATIVE Influenza Type B (PCR) NEGATIVE RSV RNA Qual (PCR) NEGATIVE SARS-CoV-2 RNA (RT-PCR) NEGATIVE 07/24/24 21:08 MCV MCH MCHC RDW Plt Count MPV Immature Gran % (Auto) Neut % (Auto) Lymph % (Auto) [place] % (Auto) Eos % (Auto) Baso % (Auto) Lymph # (Auto) [place] # (Auto) Eos # (Auto) Baso # (Auto) Abs Immat Gran (auto) Absolute Neuts (auto) Absolute Nucleated RBC Nucleated RBC % (auto) Anion Gap 9 L Estim Creat Clear Calc 20.3 Estimated GFR 22 POC Glucose Random Glucose 74 Lactic Acid 1.0 Calcium 9.9 Magnesium Total Bilirubin AST ALT Alkaline Phosphatase Total Protein Albumin Lipase Urine Color Urine Appearance Urine pH Ur Specific [place] Urine Protein Urine Glucose (UA) Urine Ketones Urine Blood Urine Nitrite Ur Leukocyte Esterase Urine RBC Urine WBC Ur Squamous Epith Cells Urine Bacteria Hyaline Casts Influenza Type A (PCR) Influenza Type B (PCR) RSV RNA Qual (PCR) SARS-CoV-2 RNA (RT-PCR) Assessment and Plan (1) MARIA R (acute kidney injury): Status: Acute (2) UTI (urinary tract infection): Status: Acute (3) Hyperkalemia: Status: Acute (4) Epigastric pain: Status: Chronic (5) Obesity (BMI 30-39.9): Status: Chronic Plan Patient is an 78-year-old female with a past medical history significant for chronic idiopathic constipation, obstructive sleep apnea, hyperlipidemia, GERD, asthma unspecified, CHF, paroxysmal atrial fibrillation on Eliquis, and obesity, who presented to the ED due to diarrhea and abdominal pain. Abdominopelvic CT with sigmoid bowel thickening, acute diverticulitis can not be ruled out. Patient does not pain in the left lower quadrant, therefore diverticulitis unlikely. Diarrhea and bowel wall thickening likely related to chronic constipation and new constipation medication. UA consistent with possible UTI, labs consistent with MARIA R and hyperkalemia. Chronic epigastric pain, pain likely secondary to constipation and GLP 1 medication - WBC 6.5, lactic acid normal, vital signs stable, no sepsis - hemoglobin 11.3, hematocrit 34.5, age-appropriate - abdominopelvic CT with sigmoid wall thickening, acute diverticulitis can not be ruled out. Patient does not have pain on exam or at all in the left lower quadrant. - started on ceftriaxone and Flagyl in ED, discontinue Flagyl as this does not appear to be diverticulitis, continue ceftriaxone due to possible UTI - UA positive, culture pending - discontinue GLP 1 - hold Linzess - clear liquid diet and advance as tolerated - follow-up with GI outpatient - monitor CBC and BMP MARIA R, likely secondary to poor p.o. intake - given fluids in ED, hold off on further fluids due to CHF - hold losatran and lasix - monitor BMP Hyperkalemia, likely secondary to poor p.o. intake and MARIA R - improvement of potassium from 6.3 to 5.4 with fluids - hold spironolactone - monitor on tele - monitor BMP UTI - patient with urinary frequency, no dysuria, hematuria or urgency - UA positive, culture pending - continue ceftriaxone - monitor CBC and BMP Paroxysmal AFib - EKG with NSR - continue Eliquis and carvedilol COPD without acute exacerbation - continue fluticasone, cetirizine CHF without exacerbation - holding diuretics due to MARIA R - no evidence of fluid overload at this time T2DM - hold jardiance and GLP1 - monitor POC - add sliding scale if needed Obesity - BMI 36.8 - weight loss encouraged - avoid GLP 1 medications Full code VTE prophylaxis: Eliquis Patient with chronic epigastric pain likely secondary to constipation and DLP 1 medication however complicated by MARIA R and hyperkalemia with possible UTI requiring admission for at least 2 midnights stay for IV antibiotics and monitoring. Quality Stroke Does the patient have a stroke diagnosis?: No VTE Prior VTE?: No VTE Risk Level:: Medical - moderate - high VTE Device Contraindication: Treatment Not Indicated VTE Drug Contraindication: N/A - Med Ordered
[2024-07-24 22:20] VITALS: BP 131/59; PULSE 59; RESP 17; TEMP 33.4; O2SAT 96
[2024-07-24 22:22] VITALS: BP 131/61; PULSE 60; RESP 18; TEMP 33.7; O2SAT 97
[2024-07-24] MEDS: metroNIDAZOLE/NS 500 MG/100 ML PIGGYBACK 100 MG IV (23:07)
[2024-07-24] MEDS: Mirtazapine 15 MG TABLET PO (23:41)
[2024-07-25] VITALS (9 sets, daily range): BP systolic 100–127; BP diastolic 47–69; PULSE 62–78; RESP 12–20; TEMP 34–36.4; O2SAT 94–98; BMI 36.8
[2024-07-25] MEDS: 0.9 % Sodium Chloride Flush 3 ML SYRINGE IVFLUSH ×3 (00:21→21:28)
--- NOTE | 2024-07-25 00:37 | PC.NURSE ---
2150 MD made aware of pt rectal temp, pt placed on bear hugger, continuous rectal probe in place.
--- NOTE | 2024-07-25 01:56 | MHC.EDTECH ---
late entry: this tech assumed care of pt @0100, pt was witnessed sleeping in stretcher w/ visitor at bedside
[2024-07-25 04:33] LABS: MANUAL DIFF FLAG NO
[2024-07-25 04:34] LABS: Basophils Percent Auto 0.2 % (0-2); Eosinophils Absolute Auto 0.1 X10*3/uL (0.0-0.4); Eosinophils Percent Auto 2.2 % (0-4); Hematocrit 31.9 % (37.0-47.0); Hemoglobin 10.3 g/dl (12.0-16.0); Imm Gran Abs Auto 0.03 X10*3/uL (0.00-0.03); Imm Gran Pct Auto 0.5 % (0.0-0.4); Lymphocytes Absolute Auto 1.7 X10*3/uL (1.2-4.9); Lymphocytes Percent Auto 25.8 % (20-40); Mean Corpuscular HGB Conc 32.3 g/dl (31.0-35.0); Mean Corpuscular Hemoglobin 27.1 pg (27.0-33.0); Mean Corpuscular Volume 83.9 fL (80.0-98.0); Mean Platelet Volume 10.6 fL (9.4-12.3); Monocytes Absolute Auto 0.7 X10*3/uL (0.1-1.2); Monocytes Percent Auto 10.2 % (2-11); Neutrophils Absolute Auto 3.9 x10*3/uL (2.0-8.3); Neutrophils Percent Auto 61.1 % (45-73); Platelet Count 190 X10*3/uL (160-400); Red Cell Distribution Width 16.3 % (11.0-16.0); White Blood Count 6.4 X10*3/uL (4.8-10.8)
[2024-07-25 04:46] LABS: Anion Gap 14 (12-20); Blood Urea Nitrogen 49 mg/dL (9-16); Calcium 9.5 mg/dL (8.4-10.2); Carbon Dioxide 19 mmol/L (22-29); Chloride 113 mmol/L (96-108); Creatinine Clr Calc Pharmacy 21.2; Estimated Glomerular Filt Rate 23; Glucose Random 71 mg/dL (60-115); Potassium 5.3 mmol/L (3.3-5.1); Sodium 141 mmol/L (135-145)
--- NOTE | 2024-07-25 05:00 | PC.NURSE ---
Pt resting in bed, Temp normal at 97.3. Bear hugger turned off at this time.
[2024-07-25] MEDS: metroNIDAZOLE/NS 500 MG/100 ML PIGGYBACK 100 MG IV ×3 (06:30→21:23)
[2024-07-25 07:36] LABS: Glucose, Whole Blood 70 mg/dL (60-115)
[2024-07-25] MEDS: Sodium Zirconium Cyclosilicate 10 GM POWD.PACK PO (08:41)
[2024-07-25] MEDS: Apixaban 5 MG TABLET PO ×2 (08:42→21:23)
[2024-07-25] MEDS: oxyBUTYnin chloride ER 5 MG TAB.ER.24 10 MG PO (08:42)
[2024-07-25] MEDS: Atorvastatin Calcium 40 MG TABLET PO (08:42)
[2024-07-25] MEDS: Loratadine 10 MG TABLET PO (08:42)
[2024-07-25] MEDS: Simethicone 80 MG TAB.CHEW 160 MG PO ×3 (08:42→21:23)
[2024-07-25] MEDS: Calcium Oyster Shell Elemental 500 MG TABLET PO (08:42)
[2024-07-25] MEDS: 0.9 % Sodium Chloride 1,000 ML 100 ML IVCONT (08:44)
[2024-07-25] MEDS: Acetaminophen 325 MG TABLET 650 MG PO (08:57)
[2024-07-25 09:02] LABS: Creatinine Urine 25.98 mg/dL
--- NOTE | 2024-07-25 09:04 | PC.NURSE ---
Patient has not had a bowl movement today. Patient c/o bilateral knee pain 3/10 medicated with tylenol. tele: sinus rythym 60's Patient is alert and oriented x 3. [place] speaking only. iv left ac 20g. iv normal saline at 100 cc/hr. Will continue with plan of care.
--- NOTE | 2024-07-25 09:43 | PC.NURSE ---
Notified Dr. Decker patients temperature dropped again to 95.7- rectally. Dr susannah montes de oca again.
--- NOTE | 2024-07-25 11:48 | MHC.CM.PN ---
IMM 07/25/24, Pt lives alone, she has INTERNATIONAL ACCOUNT MANAGER services from her dtr, who spends a lot of time with pt. She would like to name her son as HCP, CM will bring form to her and add it to the chart. Pt has all DME at home that she needs: grab bars, shower chair, side rail for bed, walker, cane, w/c and personal alarm. Family will transport home at DC. PCP is Dr. Jeffrey. DCP: home, resume services. CM to follow for DC needs.
--- NOTE | 2024-07-25 12:53 | HO.PM.IMPN ---
Subjective Subjective Date of Service: 07/25/24 Interval History: This history was taken in Macedonian from the patient. c/o upper abd pain, watery diarrhea without blood no lightheadedness no urinary burning or hematuria Review of Systems Review of Systems: Yes all other systems are reviewed and are negative Physical Exam Vital Signs: Vital Signs: Last Vital Signs Temp 95.7 F L 07/25/24 09:10 Pulse 62 07/25/24 09:10 Resp 16 07/25/24 09:10 BP 127/55 L 07/25/24 09:10 Pulse Ox 97 07/25/24 09:10 O2 Del Method Room Air 07/25/24 09:10 BMI result Body Mass Index 36.8 Gen: in no acute distress HEENT: sclera anicteric, moist mucus membranes Neck: supple Lungs: clear to auscultation bilaterally Heart: regular rate and rhythm, no murmurs Abd: soft, non-tender, non-distended Ext: no edema Skin: warm/well-perfused Neuro: alert and oriented x3, no focal findings Psych: appropriate affect Objective Data Active Medications Acetaminophen (Acetaminophen 325 Mg Tablet) 650 mg PO Q6H PRN PRN Reason: Pain, Mild 1-3,fever,headache Last Admin: 07/25/24 08:57 Dose: 650 mg Documented By: KAMERON Amlodipine Besylate (Amlodipine Besylate 10 Mg Tablet) 10 mg PO BEDTIME [facility]; Protocol Apixaban (Apixaban 5 Mg Tablet) 5 mg PO BID [facility] Last Admin: 07/25/24 08:42 Dose: 5 mg Documented By: KAMERON Atorvastatin Calcium (Atorvastatin Calcium 40 Mg Tablet) 40 mg PO DAILY [facility] Last Admin: 07/25/24 08:42 Dose: 40 mg Documented By: KAMERON Calcium Carbonate (Calcium Carbonate 750 Mg Tab.Chew) 750 mg PO Q4H PRN PRN Reason: Heartburn Calcium Carbonate (Calcium Oyster Shell Elemental 500 Mg Tablet) 500 mg PO DAILY [facility] Last Admin: 07/25/24 08:42 Dose: 500 mg Documented By: KAMERON Ceftriaxone Sodium (Ceftriaxone Sodium 1 Gm Vial) 1 gm IVPUSH Q24H [facility] Glucose (Glucose Gel 15 Gm Gel..Gram.) 15 gm PO Q15M PRN; Protocol PRN Reason: per Hypoglycemia Standing Ord. Dextrose (D10) 250 mls @ 750 mls/hr IV Q15M PRN PRN Reason: per Hypoglycemia Standing Ord. Last Infusion: 07/24/24 21:30 Dose: Infused Documented By: CHICA Metronidazole (Flagyl) 500 mg in 100 mls @ 100 mls/hr IV Q8H [facility] Last Infusion: 07/25/24 07:30 Dose: Infused Documented By: KAMERON Dextrose (D10) 250 mls @ 750 mls/hr IV Q15M PRN; Protocol PRN Reason: per Hypoglycemia Standing Ord. Sodium Chloride (Ns) 1,000 mls @ 100 mls/hr IVCONT .Q10H [facility] Stop: 07/25/24 18:29 Last Admin: 07/25/24 08:44 Dose: 100 mls/hr Documented By: KAMERON Insulin Human Lispro (Insulin Lispro 100 Unit/Ml 3 Ml Vial) 0 unit SUBCUT QIDACHS [facility]; Protocol Last Admin: 07/25/24 07:35 Dose: Not Given Documented By: KAMERON Non-Admin Reason: poc-70 Loratadine (Loratadine 10 Mg Tablet) 10 mg PO DAILY [facility] Last Admin: 07/25/24 08:42 Dose: 10 mg Documented By: KAMERON Magnesium Hydroxide (Milk Of Magnesia 30 Ml Oral.Susp) 30 ml PO DAILY PRN PRN Reason: Constipation Melatonin (Melatonin 3 Mg Tablet) 6 mg PO BEDTIME PRN PRN Reason: Insomnia Mirtazapine (Mirtazapine 15 Mg Tablet) 15 mg PO BEDTIME [facility] Last Admin: 07/24/24 23:41 Dose: 15 mg Documented By: CHICA Ondansetron HCl (Ondansetron Hcl 4 Mg/2 Ml Vial) 4 mg IVPUSH Q8H PRN PRN Reason: Nausea and Vomiting Oxybutynin Chloride (Oxybutynin Chloride Er 5 Mg Tab.Er.24) 10 mg PO DAILY [facility] Last Admin: 07/25/24 08:42 Dose: 10 mg Documented By: KAMERON Simethicone (Simethicone 80 Mg Tab.Chew) 160 mg PO TID [facility] Last Admin: 07/25/24 08:42 Dose: 160 mg Documented By: KAMERON Sodium Chloride (0.9 % Sodium Chloride Flush 3 Ml Syringe) 3 ml IVFLUSH QSHIFT [facility] Last Admin: 07/25/24 08:42 Dose: 3 ml Documented By: KAMERON Labs 07/25/24 04:30 07/25/24 04:30 Labs: Laboratory Results - last 24 hr 07/24/24 07/24/24 07/24/24 17:15 19:20 20:59 MCV 84.4 MCH 27.6 MCHC 32.8 RDW 16.1 H Plt Count 210 MPV 10.6 Immature Gran % (Auto) 0.6 H Neut % (Auto) 72.3 Lymph % (Auto) 19.9 L [place] % (Auto) 5.4 Eos % (Auto) 1.5 Baso % (Auto) 0.3 Lymph # (Auto) 1.3 [place] # (Auto) 0.4 Eos # (Auto) 0.1 Baso # (Auto) 0.0 Abs Immat Gran (auto) 0.04 H Absolute Neuts (auto) 4.7 Absolute Nucleated RBC 0.000 Nucleated RBC % (auto) 0.0 Anion Gap 10 L Estim Creat Clear Calc 19.0 Estimated GFR 21 POC Glucose 70 Random Glucose 97 Lactic Acid Calcium 9.8 Magnesium 2.4 Total Bilirubin 0.3 AST 30 ALT 30 Alkaline Phosphatase 193 H Total Protein 7.6 Albumin 4.1 Lipase 38 Urine Color Yellow Urine Appearance Clear Urine pH 7.0 Ur Specific [place] <= 1.005 Urine Protein Negative Urine Glucose (UA) 250 H Urine Ketones Negative Urine Blood Negative Urine Nitrite Negative Ur Leukocyte Esterase Moderate (2+) H Urine RBC 3-5 H Urine WBC 11-20 H Ur Squamous Epith Cells 0-2 Urine Bacteria 4+ Hyaline Casts 3-5 Ur Random Sodium Urine Creatinine Influenza Type A (PCR) NEGATIVE Influenza Type B (PCR) NEGATIVE RSV RNA Qual (PCR) NEGATIVE SARS-CoV-2 RNA (RT-PCR) NEGATIVE 07/24/24 07/25/24 07/25/24 21:08 04:30 07:21 MCV 83.9 MCH 27.1 MCHC 32.3 RDW 16.3 H Plt Count 190 MPV 10.6 Immature Gran % (Auto) 0.5 H Neut % (Auto) 61.1 Lymph % (Auto) 25.8 [place] % (Auto) 10.2 Eos % (Auto) 2.2 Baso % (Auto) 0.2 Lymph # (Auto) 1.7 [place] # (Auto) 0.7 Eos # (Auto) 0.1 Baso # (Auto) 0.0 Abs Immat Gran (auto) 0.03 Absolute Neuts (auto) 3.9 Absolute Nucleated RBC 0.000 Nucleated RBC % (auto) 0.0 Anion Gap 9 L 14 Estim Creat Clear Calc 20.3 21.2 Estimated GFR 22 23 POC Glucose 70 Random Glucose 74 71 Lactic Acid 1.0 Calcium 9.9 9.5 Magnesium Total Bilirubin AST ALT Alkaline Phosphatase Total Protein Albumin Lipase Urine Color Urine Appearance Urine pH Ur Specific [place] Urine Protein Urine Glucose (UA) Urine Ketones Urine Blood Urine Nitrite Ur Leukocyte Esterase Urine RBC Urine WBC Ur Squamous Epith Cells Urine Bacteria Hyaline Casts Ur Random Sodium Urine Creatinine Influenza Type A (PCR) Influenza Type B (PCR) RSV RNA Qual (PCR) SARS-CoV-2 RNA (RT-PCR) 07/25/24 08:42 MCV MCH MCHC RDW Plt Count MPV Immature Gran % (Auto) Neut % (Auto) Lymph % (Auto) [place] % (Auto) Eos % (Auto) Baso % (Auto) Lymph # (Auto) [place] # (Auto) Eos # (Auto) Baso # (Auto) Abs Immat Gran (auto) Absolute Neuts (auto) Absolute Nucleated RBC Nucleated RBC % (auto) Anion Gap Estim Creat Clear Calc Estimated GFR POC Glucose Random Glucose Lactic Acid Calcium Magnesium Total Bilirubin AST ALT Alkaline Phosphatase Total Protein Albumin Lipase Urine Color Urine Appearance Urine pH Ur Specific [place] Urine Protein Urine Glucose (UA) Urine Ketones Urine Blood Urine Nitrite Ur Leukocyte Esterase Urine RBC Urine WBC Ur Squamous Epith Cells Urine Bacteria Hyaline Casts Ur Random Sodium 69.0 Urine Creatinine 25.98 Influenza Type A (PCR) Influenza Type B (PCR) RSV RNA Qual (PCR) SARS-CoV-2 RNA (RT-PCR) 07/24/24 CT A/P Colonic diverticulosis with bowel wall thickening of the sigmoid colon. Acute diverticulitis can not be excluded. Correlation with colonoscopy findings as indicated. Additional findings as above. Microbiology Microbiology Results: Microbiology 07/24/24 Unknown Urine Culture - Preliminary Urine clean catch - Clean Catch Midstream Gram negative marleny Assessment and Plan (1) Diverticulitis: Status: Acute Plan d2 for 78yo F with chronic idiopathic constipation, JOVANNI, HLD, GERD, asthma, CHF, pAF on apixaban, obesity presenting with diarrhea and abd pain, found to have sigmoid thickening suspicious for diverticulitis though no LLQ tenderness admitted for MARIA R/hyperkalemia MARIA R - FENa 4.4% though BUN/Cr suggests prerenal. Will give another 1L NS and recheck BMP in AM. - Hold losartan + furosemide + spironolactone hyperK - Improved though still high; give another dose of Lokelma and recheck BMP in AM. Hold losartan + spironolactone as above. diarrhea - Check Cdiff + GI panel - Hold Linzess recently started by GI - Clear liquid diet; advance as tolerated possible diverticulitis - 07/24- ceftriaxone + metronidazole, check CRP asymptomatic bacteruria - on ceftriaxone for diverticulitis as above, not UTI CHRONIC ISSUES pAF: continue carvedilol, apixaban HLD: continue statin HTN: continue amlodipine, carvedilol; hold losartan + spironolactone chronic HFpEF: hold furosemide + losartan + spironolactone DM2: iona-dose lispro VTE ppx - apixaban dispo - TBD In my clinical judgment, the patient requires continued inpatient hospitalization for the following reasons: MARIA R, hyperK Total time managing care of this patient today: 40 minutes. Quality Stroke Does the patient have a stroke diagnosis?: No VTE Prior VTE?: No VTE Risk Level:: Medical - moderate - high VTE Device Contraindication: Treatment Not Indicated VTE Drug Contraindication: N/A - Med Ordered
[2024-07-25 13:15] LABS: Glucose, Whole Blood 81 mg/dL (60-115)
[2024-07-25 13:22] LABS: C Reactive Protein 0.76 mg/dL (< or = 0.50)
--- NOTE | 2024-07-25 14:32 | PC.NURSE ---
Daughter states her mother get B-12 shot tomorrow daughter would like to make sure she gets her shot here. Dr. Decker notified.
[2024-07-25 16:24] LABS: Glucose, Whole Blood 84 mg/dL (60-115)
[2024-07-25] MEDS: cefTRIAXone sodium 1 GM VIAL IVPUSH (19:03)
[2024-07-25 19:59] LABS: Glucose, Whole Blood 99 mg/dL (60-115)
[2024-07-25] MEDS: Mirtazapine 15 MG TABLET PO (21:23)
[2024-07-25] MEDS: amLODIPine Besylate 10 MG TABLET PO (21:27)
[2024-07-26 03:41] VITALS: BP 116/53; PULSE 50; RESP 18; TEMP 36.4; O2SAT 99
[2024-07-26] MEDS: metroNIDAZOLE/NS 500 MG/100 ML PIGGYBACK 100 MG IV ×3 (06:22→22:12)
[2024-07-26 07:18] LABS: Hematocrit 33.6 % (37.0-47.0); Hemoglobin 10.3 g/dl (12.0-16.0); Mean Corpuscular HGB Conc 30.7 g/dl (31.0-35.0); Mean Corpuscular Hemoglobin 27.2 pg (27.0-33.0); Mean Corpuscular Volume 88.7 fL (80.0-98.0); Mean Platelet Volume 11.5 fL (9.4-12.3); Platelet Count 192 X10*3/uL (160-400); Red Blood Count 3.79 X10*6/uL (4.20-5.50); Red Cell Distribution Width 16.9 % (11.0-16.0); White Blood Count 5.6 X10*3/uL (4.8-10.8)
[2024-07-26 07:33] VITALS: BP 130/60; PULSE 67; RESP 18; TEMP 35.3; O2SAT 98
[2024-07-26 07:35] LABS: Anion Gap 13 (12-20); Blood Urea Nitrogen 34 mg/dL (9-16); Calcium 9.5 mg/dL (8.4-10.2); Carbon Dioxide 19 mmol/L (22-29); Chloride 117 mmol/L (96-108); Creatinine Clr Calc Pharmacy 23.5; Estimated Glomerular Filt Rate 26; Glucose Random 78 mg/dL (60-115); Potassium 5.1 mmol/L (3.3-5.1); Sodium 144 mmol/L (135-145)
[2024-07-26 07:53] LABS: Glucose, Whole Blood 77 mg/dL (60-115)
[2024-07-26] MEDS: Loratadine 10 MG TABLET PO (09:44)
[2024-07-26] MEDS: oxyBUTYnin chloride ER 5 MG TAB.ER.24 10 MG PO (09:44)
[2024-07-26] MEDS: Simethicone 80 MG TAB.CHEW 160 MG PO ×3 (09:44→20:26)
[2024-07-26] MEDS: Calcium Oyster Shell Elemental 500 MG TABLET PO (09:45)
[2024-07-26] MEDS: Acetaminophen 325 MG TABLET 650 MG PO (09:45)
[2024-07-26] MEDS: Atorvastatin Calcium 40 MG TABLET PO (09:45)
[2024-07-26] MEDS: Cyanocobalamin (Vitamin B-12) 1,000 MCG/ML VIAL 1000 MCG IM (09:45)
[2024-07-26] MEDS: Apixaban 5 MG TABLET PO (09:45)
[2024-07-26] MEDS: 0.9 % Sodium Chloride Flush 3 ML SYRINGE IVFLUSH ×3 (09:46→20:26)
[2024-07-26] MEDS: 0.9 % Sodium Chloride 1,000 ML 50 ML IVCONT (09:51)
[2024-07-26 10:47] VITALS: TEMP 35.7
[2024-07-26 10:57] VITALS: BP 115/54; PULSE 62; RESP 18; O2SAT 96
--- NOTE | 2024-07-26 11:22 | P.PNIM_ITS ---
Subjective Subjective Date of Service: 07/26/24 Interval History: This history was taken in Uzbek from the patient. No further diarrhea Abd pain resolved Tolerating clear liquids Hypothermic; on Aren Calixto Review of Systems Review of Systems: Yes all other systems are reviewed and are negative Physical Exam 2 Vital Signs: Vital Signs: Last Vital Signs Temp 96.2 F L 07/26/24 10:47 Pulse 62 07/26/24 10:57 Resp 18 07/26/24 10:57 BP 115/54 L 07/26/24 10:57 Pulse Ox 96 07/26/24 10:57 O2 Del Method Room Air 07/26/24 10:57 BMI result Body Mass Index 36.8 Gen: in no acute distress HEENT: sclera anicteric, moist mucus membranes Neck: supple Lungs: clear to auscultation bilaterally Heart: regular rate and rhythm, no murmurs Abd: soft, non-tender, non-distended Ext: no edema Skin: warm/well-perfused Neuro: alert and oriented x3, no focal findings Psych: appropriate affect Objective Data Active Medications Acetaminophen (Acetaminophen 325 Mg Tablet) 650 mg PO Q6H PRN PRN Reason: Pain, Mild 1-3,fever,headache Last Admin: 07/26/24 09:45 Dose: 650 mg Documented By: NIK Amlodipine Besylate (Amlodipine Besylate 10 Mg Tablet) 10 mg PO BEDTIME [facility]; Protocol Last Admin: 07/25/24 21:27 Dose: 10 mg Documented By: JAGRUTI-JOSEZEMacho Apixaban (Apixaban 5 Mg Tablet) 5 mg PO BID [facility] Last Admin: 07/26/24 09:45 Dose: 5 mg Documented By: NIK Atorvastatin Calcium (Atorvastatin Calcium 40 Mg Tablet) 40 mg PO DAILY [facility] Last Admin: 07/26/24 09:45 Dose: 40 mg Documented By: NIK Calcium Carbonate (Calcium Carbonate 750 Mg Tab.Chew) 750 mg PO Q4H PRN PRN Reason: Heartburn Calcium Carbonate (Calcium Oyster Shell Elemental 500 Mg Tablet) 500 mg PO DAILY [facility] Last Admin: 07/26/24 09:45 Dose: 500 mg Documented By: NIK Ceftriaxone Sodium (Ceftriaxone Sodium 1 Gm Vial) 1 gm IVPUSH Q24H [facility] Last Admin: 07/25/24 19:03 Dose: 1 gm Documented By: PAMELA Glucose (Glucose Gel 15 Gm Gel..Gram.) 15 gm PO Q15M PRN; Protocol PRN Reason: per Hypoglycemia Standing Ord. Metronidazole (Flagyl) 500 mg in 100 mls @ 100 mls/hr IV Q8H [facility] Last Infusion: 07/26/24 08:31 Dose: Infused Documented By: NIK Dextrose (D10) 250 mls @ 750 mls/hr IV Q15M PRN; Protocol PRN Reason: per Hypoglycemia Standing Ord. Sodium Chloride (Ns) 1,000 mls @ 50 mls/hr IVCONT .Q20H [facility] Stop: 07/27/24 04:14 Last Admin: 07/26/24 09:51 Dose: 50 mls/hr Documented By: NIK Insulin Human Lispro (Insulin Lispro 100 Unit/Ml 3 Ml Vial) 0 unit SUBCUT QIDACHS [facility]; Protocol Last Admin: 07/26/24 08:30 Dose: Not Given Documented By: NIK Non-Admin Reason: No Insulin Coverage Loratadine (Loratadine 10 Mg Tablet) 10 mg PO DAILY [facility] Last Admin: 07/26/24 09:44 Dose: 10 mg Documented By: NIK Magnesium Hydroxide (Milk Of Magnesia 30 Ml Oral.Susp) 30 ml PO DAILY PRN PRN Reason: Constipation Melatonin (Melatonin 3 Mg Tablet) 6 mg PO BEDTIME PRN PRN Reason: Insomnia Mirtazapine (Mirtazapine 15 Mg Tablet) 15 mg PO BEDTIME [facility] Last Admin: 07/25/24 21:23 Dose: 15 mg Documented By: CARIE Ondansetron HCl (Ondansetron Hcl 4 Mg/2 Ml Vial) 4 mg IVPUSH Q8H PRN PRN Reason: Nausea and Vomiting Oxybutynin Chloride (Oxybutynin Chloride Er 5 Mg Tab.Er.24) 10 mg PO DAILY [facility] Last Admin: 07/26/24 09:44 Dose: 10 mg Documented By: NIK Simethicone (Simethicone 80 Mg Tab.Chew) 160 mg PO TID [facility] Last Admin: 07/26/24 09:44 Dose: 160 mg Documented By: NIK Sodium Chloride (0.9 % Sodium Chloride Flush 3 Ml Syringe) 3 ml IVFLUSH QSHIFT [facility] Last Admin: 07/26/24 09:46 Dose: 3 ml Documented By: NIK Labs 07/26/24 06:50 07/26/24 06:50 Labs: Laboratory Results - last 24 hr 07/25/24 07/25/24 07/25/24 04:30 13:06 16:17 MCV MCH MCHC RDW Plt Count MPV Absolute Nucleated RBC Nucleated RBC % (auto) Anion Gap Estim Creat Clear Calc Estimated GFR POC Glucose 81 84 Random Glucose Calcium C-Reactive Protein 0.76 H 07/25/24 07/26/24 07/26/24 19:29 06:50 07:26 MCV 88.7 MCH 27.2 MCHC 30.7 L RDW 16.9 H Plt Count 192 MPV 11.5 Absolute Nucleated RBC 0.000 Nucleated RBC % (auto) 0.0 Anion Gap 13 Estim Creat Clear Calc 23.5 Estimated GFR 26 POC Glucose 99 77 Random Glucose 78 Calcium 9.5 C-Reactive Protein Microbiology Microbiology Results: Microbiology 07/24/24 Unknown Urine Culture - Final Urine clean catch - Clean Catch Midstream Escherichia coli 07/24/24 21:08 Blood Culture - Preliminary Blood - Venous No growth after 24 hours. 07/24/24 20:54 Blood Culture - Preliminary Blood - Venous No growth after 24 hours. Assessment and Plan (1) Diverticulitis: Status: Acute Plan d3 for 78yo F with chronic idiopathic constipation, JOVANNI, HLD, GERD, asthma, CHF, pAF on apixaban, obesity presenting with diarrhea and abd pain, found to have sigmoid thickening suspicious for diverticulitis though no LLQ tenderness admitted for MARIA R/hyperkalemia MARIA R - FENa 4.4% though BUN/Cr suggests prerenal and SCr improving with IV fluids. Will give another 500mL NS and recheck BMP in AM. - Continue to hold losartan + furosemide + spironolactone hyperK - Resolved after holding losartan + spironolactone and giving 2 doses of Lokelma. Hold losartan + spironolactone as above. hypothermia - Check thyroid function tests diarrhea - Check Cdiff + GI panel - Hold Linzess recently started by GI - Advance to solid diet today. possible diverticulitis - 07/24- ceftriaxone + metronidazole. Should have outpt GI follow-up for colonoscopy [followed by [facility]] asymptomatic bacteruria - on ceftriaxone for diverticulitis as above, not UTI CHRONIC ISSUES pAF: continue carvedilol, apixaban HLD: continue statin HTN: continue amlodipine, carvedilol; hold losartan + spironolactone chronic HFpEF: hold furosemide + losartan + spironolactone DM2: iona-dose lispro VTE ppx - apixaban dispo - anticipate home with VNA per PT eval In my clinical judgment, the patient requires continued inpatient hospitalization for the following reasons: MARIA R, hyperK, hypothermia Total time managing care of this patient today: 40 minutes. Quality Stroke Does the patient have a stroke diagnosis?: No VTE Prior VTE?: No VTE Risk Level:: Medical - moderate - high VTE Device Contraindication: Treatment Not Indicated VTE Drug Contraindication: N/A - Med Ordered
[2024-07-26 11:25] LABS: Glucose, Whole Blood 81 mg/dL (60-115)
[2024-07-26 12:14] LABS: TSH reflex Free T4 3.54 uIU/mL (0.32-4.0)
[2024-07-26 16:00] VITALS: BP 153/68; PULSE 72; RESP 18; TEMP 35.8; O2SAT 98
[2024-07-26 16:19] LABS: Glucose, Whole Blood 82 mg/dL (60-115)
[2024-07-26 20:00] VITALS: BP 121/56; PULSE 63; RESP 16; TEMP 34.7; O2SAT 97
[2024-07-26] MEDS: amLODIPine Besylate 10 MG TABLET PO (20:26)
[2024-07-26] MEDS: cefTRIAXone sodium 1 GM VIAL IVPUSH (20:26)
[2024-07-26] MEDS: Apixaban 2.5 MG TABLET PO (20:26)
[2024-07-26] MEDS: Mirtazapine 15 MG TABLET PO (20:26)
[2024-07-26 20:58] LABS: Glucose, Whole Blood 95 mg/dL (60-115)
[2024-07-27] VITALS: BP 132/62; PULSE 68; RESP 18; TEMP 36.4; O2SAT 94
[2024-07-27 04:00] VITALS: BP 122/58; PULSE 74; RESP 16; TEMP 35; O2SAT 94
[2024-07-27] MEDS: metroNIDAZOLE/NS 500 MG/100 ML PIGGYBACK 100 MG IV ×3 (05:25→22:01)
[2024-07-27 07:02] VITALS: BP 118/56; PULSE 81; RESP 18; TEMP 36.2; O2SAT 97
[2024-07-27 07:22] LABS: Glucose, Whole Blood 87 mg/dL (60-115)
[2024-07-27 08:55] LABS: Anion Gap 10 (12-20); Blood Urea Nitrogen 31 mg/dL (9-16); Calcium 9.4 mg/dL (8.4-10.2); Carbon Dioxide 19 mmol/L (22-29); Chloride 119 mmol/L (96-108); Creatinine Clr Calc Pharmacy 27.2; Estimated Glomerular Filt Rate 31; Glucose Random 90 mg/dL (60-115); Potassium 5.2 mmol/L (3.3-5.1); Sodium 143 mmol/L (135-145)
[2024-07-27] MEDS: Apixaban 2.5 MG TABLET PO ×2 (09:26→22:02)
[2024-07-27] MEDS: Acetaminophen 325 MG TABLET 650 MG PO (09:26)
[2024-07-27] MEDS: oxyBUTYnin chloride ER 5 MG TAB.ER.24 10 MG PO (09:26)
[2024-07-27] MEDS: Simethicone 80 MG TAB.CHEW 160 MG PO ×3 (09:26→22:02)
[2024-07-27] MEDS: Calcium Oyster Shell Elemental 500 MG TABLET PO (09:26)
[2024-07-27] MEDS: Atorvastatin Calcium 40 MG TABLET PO (09:26)
[2024-07-27] MEDS: Loratadine 10 MG TABLET PO (09:26)
[2024-07-27] MEDS: 0.9 % Sodium Chloride Flush 3 ML SYRINGE IVFLUSH ×3 (09:27→22:02)
--- NOTE | 2024-07-27 10:28 | P.PNIM_ITS ---
Subjective Subjective Date of Service: 07/27/24 Interval History: seen and examined with credit analysis manager services daughter bedside pt denies abd pain, reports some nausea (no vomiting), reports feeling gaseous and decreased appetite no BM since hospitalization Review of Systems Negative except HPI/interval history. Physical Exam 2 Vital Signs: Vital Signs: Last Vital Signs Temp 97.2 F 07/27/24 07:02 Pulse 81 07/27/24 07:02 Resp 18 07/27/24 07:02 BP 118/56 L 07/27/24 07:02 Pulse Ox 97 07/27/24 07:02 O2 Del Method Room Air 07/27/24 07:02 BMI result Body Mass Index 36.8 Const: Other: General - no acute distress, appears comfortable Cardiovascular - regular rate and rhythm, S1-S2 Lungs - normal respiratory effort, clear to auscultation bilaterally, no wheezing Abdomen - soft, nontender, no rebound or guarding Extremities - no edema bilaterally Neuro - awake and alert, no focal deficits Objective Data Active Medications Acetaminophen (Acetaminophen 325 Mg Tablet) 650 mg PO Q6H PRN PRN Reason: Pain, Mild 1-3,fever,headache Last Admin: 07/27/24 09:26 Dose: 650 mg Documented By: INEZ Amlodipine Besylate (Amlodipine Besylate 10 Mg Tablet) 10 mg PO BEDTIME [facility]; Protocol Last Admin: 07/26/24 20:26 Dose: 10 mg Documented By: DO Apixaban (Apixaban 2.5 Mg Tablet) 2.5 mg PO BID [facility] Last Admin: 07/27/24 09:26 Dose: 2.5 mg Documented By: INEZ Atorvastatin Calcium (Atorvastatin Calcium 40 Mg Tablet) 40 mg PO DAILY [facility] Last Admin: 07/27/24 09:26 Dose: 40 mg Documented By: INEZ Calcium Carbonate (Calcium Carbonate 750 Mg Tab.Chew) 750 mg PO Q4H PRN PRN Reason: Heartburn Calcium Carbonate (Calcium Oyster Shell Elemental 500 Mg Tablet) 500 mg PO DAILY [facility] Last Admin: 07/27/24 09:26 Dose: 500 mg Documented By: INEZ Ceftriaxone Sodium (Ceftriaxone Sodium 1 Gm Vial) 1 gm IVPUSH Q24H [facility] Last Admin: 07/26/24 20:26 Dose: 1 gm Documented By: DO Glucose (Glucose Gel 15 Gm Gel..Gram.) 15 gm PO Q15M PRN; Protocol PRN Reason: per Hypoglycemia Standing Ord. Metronidazole (Flagyl) 500 mg in 100 mls @ 100 mls/hr IV Q8H [facility] Last Infusion: 07/27/24 06:32 Dose: Infused Documented By: DO Dextrose (D10) 250 mls @ 750 mls/hr IV Q15M PRN; Protocol PRN Reason: per Hypoglycemia Standing Ord. Insulin Human Lispro (Insulin Lispro 100 Unit/Ml 3 Ml Vial) 0 unit SUBCUT QIDACHS [facility]; Protocol Last Admin: 07/27/24 09:00 Dose: Not Given Documented By: INEZ Non-Admin Reason: No Insulin Coverage Loratadine (Loratadine 10 Mg Tablet) 10 mg PO DAILY [facility] Last Admin: 07/27/24 09:26 Dose: 10 mg Documented By: INEZ Magnesium Hydroxide (Milk Of Magnesia 30 Ml Oral.Susp) 30 ml PO DAILY PRN PRN Reason: Constipation Melatonin (Melatonin 3 Mg Tablet) 6 mg PO BEDTIME PRN PRN Reason: Insomnia Mirtazapine (Mirtazapine 15 Mg Tablet) 15 mg PO BEDTIME [facility] Last Admin: 07/26/24 20:26 Dose: 15 mg Documented By: DO Ondansetron HCl (Ondansetron Hcl 4 Mg/2 Ml Vial) 4 mg IVPUSH Q8H PRN PRN Reason: Nausea and Vomiting Oxybutynin Chloride (Oxybutynin Chloride Er 5 Mg Tab.Er.24) 10 mg PO DAILY [facility] Last Admin: 07/27/24 09:26 Dose: 10 mg Documented By: INEZ Simethicone (Simethicone 80 Mg Tab.Chew) 160 mg PO TID [facility] Last Admin: 07/27/24 09:26 Dose: 160 mg Documented By: INEZ Sodium Chloride (0.9 % Sodium Chloride Flush 3 Ml Syringe) 3 ml IVFLUSH QSHIFT [facility] Last Admin: 07/27/24 09:27 Dose: 3 ml Documented By: INEZ Labs 07/26/24 06:50 07/27/24 08:38 Labs: Laboratory Results - last 24 hr 07/26/24 07/26/24 07/26/24 06:50 11:05 15:59 Anion Gap Estim Creat Clear Calc Estimated GFR POC Glucose 81 82 Random Glucose Calcium TSH 3.54 07/26/24 07/27/24 07/27/24 20:42 07:18 08:38 Anion Gap 10 L Estim Creat Clear Calc 27.2 Estimated GFR 31 POC Glucose 95 87 Random Glucose 90 Calcium 9.4 TSH Microbiology Microbiology Results: Microbiology 07/24/24 21:08 Blood Culture - Preliminary Blood - Venous No growth after 48 hours. 07/24/24 20:54 Blood Culture - Preliminary Blood - Venous No growth after 48 hours. 07/24/24 Unknown Urine Culture - Final Urine clean catch - Clean Catch Midstream Escherichia coli Assessment and Plan (1) Diverticulitis: Status: Acute Plan d3 for 78yo F with chronic idiopathic constipation, JOVANNI, HLD, GERD, asthma, CHF, pAF on apixaban, obesity presenting with diarrhea and abd pain, found to have sigmoid thickening suspicious for diverticulitis though no LLQ tenderness admitted for MARIA R/hyperkalemia MARIA R - FENa 4.4% though BUN/Cr suggests prerenal and SCr improving with IV fluids. slowly improving with IVF, will encourage oral today SCr 1.6 today (0.8-1) hyperK (mild today 5.2) - Initially Resolved after holding losartan + spironolactone and giving 2 doses of Lokelma. will give 5 of lokelma today Hold losartan + spironolactone as above hypothermia - Check thyroid function tests - wnl off warming blankets this AM diarrhea no further episodes possible diverticulitis - 07/24- ceftriaxone + metronidazole. Should have outpt GI follow-up for colonoscopy [followed by [facility]] asymptomatic bacteruria - on ceftriaxone for diverticulitis as above, not UTI CHRONIC ISSUES pAF: continue carvedilol, apixaban HLD: continue statin HTN: continue amlodipine, carvedilol; hold losartan + spironolactone chronic HFpEF: hold furosemide + losartan + spironolactone DM2: iona-dose lispro VTE ppx - apixaban dispo - anticipate home with VNA per PT eval In my clinical judgment, the patient requires continued inpatient hospitalization for the following reasons: monitor of temp without warming blankets, awaiting tolerance of diet, monitoring renal function Total time managing care of this patient today: 40 minutes. Quality Stroke Does the patient have a stroke diagnosis?: No VTE Prior VTE?: No VTE Risk Level:: Medical - moderate - high VTE Device Contraindication: Treatment Not Indicated VTE Drug Contraindication: N/A - Med Ordered
[2024-07-27 11:06] VITALS: BP 143/63; PULSE 69; RESP 18; TEMP 35.9; O2SAT 97
[2024-07-27 11:25] LABS: Glucose, Whole Blood 111 mg/dL (60-115)
[2024-07-27] MEDS: Sodium Zirconium Cyclosilicate 5 GM POWD.PACK PO (11:53)
--- NOTE | 2024-07-27 12:38 | MHC.CM.PN ---
EMR reviewed and per MD rounds, pt is not medically cleared for discharge due to monitoring temperature (without warming blanket), monitoring renal function, and awaiting PO tolerance.
[2024-07-27 15:09] VITALS: BP 118/56; PULSE 63; RESP 18; TEMP 36.6; O2SAT 100
[2024-07-27 15:32] LABS: Glucose, Whole Blood 161 mg/dL (60-115)
[2024-07-27] MEDS: Insulin Lispro 100 UNIT/ML 3 ML VIAL SUBCUT (16:56)
[2024-07-27] MEDS: cefTRIAXone sodium 1 GM VIAL IVPUSH (19:09)
[2024-07-27 20:00] VITALS: BP 150/67; PULSE 54; RESP 16; TEMP 35.3; O2SAT 97
[2024-07-27 21:32] LABS: Glucose, Whole Blood 86 mg/dL (60-115)
[2024-07-27] MEDS: amLODIPine Besylate 10 MG TABLET PO (22:02)
[2024-07-27] MEDS: Mirtazapine 15 MG TABLET PO (22:02)
[2024-07-28] VITALS (10 sets, daily range): BP systolic 115–160; BP diastolic 51–71; PULSE 59–73; RESP 17–20; TEMP 34.9–37; O2SAT 94–98
[2024-07-28] MEDS: metroNIDAZOLE/NS 500 MG/100 ML PIGGYBACK 100 MG IV (05:20)
[2024-07-28] MEDS: Calcium Oyster Shell Elemental 500 MG TABLET PO (08:35)
[2024-07-28] MEDS: Simethicone 80 MG TAB.CHEW 160 MG PO ×3 (08:35→21:41)
[2024-07-28] MEDS: Atorvastatin Calcium 40 MG TABLET PO (08:35)
[2024-07-28] MEDS: oxyBUTYnin chloride ER 5 MG TAB.ER.24 10 MG PO (08:35)
[2024-07-28] MEDS: Loratadine 10 MG TABLET PO (08:35)
[2024-07-28] MEDS: 0.9 % Sodium Chloride Flush 3 ML SYRINGE IVFLUSH ×3 (08:36→21:41)
[2024-07-28] MEDS: Apixaban 2.5 MG TABLET PO ×2 (08:36→21:35)
[2024-07-28 08:45] LABS: Glucose, Whole Blood 83 mg/dL (60-115)
[2024-07-28 08:50] LABS: Hemoglobin 10.8 g/dl (12.0-16.0); Mean Corpuscular HGB Conc 30.9 g/dl (31.0-35.0); Mean Corpuscular Volume 87.5 fL (80.0-98.0); Mean Platelet Volume 10.7 fL (9.4-12.3); Platelet Count 194 X10*3/uL (160-400); Red Cell Distribution Width 17.1 % (11.0-16.0); White Blood Count 8.3 X10*3/uL (4.8-10.8)
[2024-07-28 09:01] LABS: Anion Gap 10 (12-20); Blood Urea Nitrogen 28 mg/dL (9-16); Calcium 9.4 mg/dL (8.4-10.2); Carbon Dioxide 21 mmol/L (22-29); Chloride 116 mmol/L (96-108); Creatinine Clr Calc Pharmacy 26.9; Estimated Glomerular Filt Rate 31; Glucose Random 91 mg/dL (60-115); Sodium 142 mmol/L (135-145)
--- NOTE | 2024-07-28 11:01 | HO.PM.IMPN ---
Subjective Subjective Date of Service: 07/28/24 Interval History: seen and examined with medical clinic manager services daughter bedside, c/o having difficulty swallowing, although she appears to have eaten her food no abdomial pain, low temp of 95 reported on bear hauger Review of Systems Negative except HPI/interval history. Physical Exam Vital Signs: Vital Signs: Last Vital Signs Temp 97.7 F 07/28/24 08:00 Pulse 67 07/28/24 08:00 Resp 20 07/28/24 08:00 BP 160/71 H 07/28/24 08:00 Pulse Ox 98 07/28/24 08:00 O2 Del Method Room Air 07/28/24 08:00 BMI result Body Mass Index 36.8 Objective Data Active Medications Acetaminophen (Acetaminophen 325 Mg Tablet) 650 mg PO Q6H PRN PRN Reason: Pain, Mild 1-3,fever,headache Last Admin: 07/27/24 09:26 Dose: 650 mg Documented By: INEZ Amlodipine Besylate (Amlodipine Besylate 10 Mg Tablet) 10 mg PO BEDTIME [facility]; Protocol Last Admin: 07/27/24 22:02 Dose: 10 mg Documented By: JULES Apixaban (Apixaban 2.5 Mg Tablet) 2.5 mg PO BID [facility] Last Admin: 07/28/24 08:36 Dose: 2.5 mg Documented By: ISRAEL Atorvastatin Calcium (Atorvastatin Calcium 40 Mg Tablet) 40 mg PO DAILY [facility] Last Admin: 07/28/24 08:35 Dose: 40 mg Documented By: ISRAEL Calcium Carbonate (Calcium Carbonate 750 Mg Tab.Chew) 750 mg PO Q4H PRN PRN Reason: Heartburn Calcium Carbonate (Calcium Oyster Shell Elemental 500 Mg Tablet) 500 mg PO DAILY [facility] Last Admin: 07/28/24 08:35 Dose: 500 mg Documented By: ISRAEL Ceftriaxone Sodium (Ceftriaxone Sodium 1 Gm Vial) 1 gm IVPUSH Q24H [facility] Last Admin: 07/27/24 19:09 Dose: 1 gm Documented By: DINAH Glucose (Glucose Gel 15 Gm Gel..Gram.) 15 gm PO Q15M PRN; Protocol PRN Reason: per Hypoglycemia Standing Ord. Metronidazole (Flagyl) 500 mg in 100 mls @ 100 mls/hr IV Q8H [facility] Last Infusion: 07/28/24 06:31 Dose: Infused Documented By: JULES Dextrose (D10) 250 mls @ 750 mls/hr IV Q15M PRN; Protocol PRN Reason: per Hypoglycemia Standing Ord. Insulin Human Lispro (Insulin Lispro 100 Unit/Ml 3 Ml Vial) 0 unit SUBCUT QIDACHS [facility]; Protocol Last Admin: 07/28/24 08:35 Dose: Not Given Documented By: ISRAEL Non-Admin Reason: No Insulin Coverage Loratadine (Loratadine 10 Mg Tablet) 10 mg PO DAILY [facility] Last Admin: 07/28/24 08:35 Dose: 10 mg Documented By: ISRAEL Magnesium Hydroxide (Milk Of Magnesia 30 Ml Oral.Susp) 30 ml PO DAILY PRN PRN Reason: Constipation Melatonin (Melatonin 3 Mg Tablet) 6 mg PO BEDTIME PRN PRN Reason: Insomnia Mirtazapine (Mirtazapine 15 Mg Tablet) 15 mg PO BEDTIME [facility] Last Admin: 07/27/24 22:02 Dose: 15 mg Documented By: JULES Ondansetron HCl (Ondansetron Hcl 4 Mg/2 Ml Vial) 4 mg IVPUSH Q8H PRN PRN Reason: Nausea and Vomiting Oxybutynin Chloride (Oxybutynin Chloride Er 5 Mg Tab.Er.24) 10 mg PO DAILY [facility] Last Admin: 07/28/24 08:35 Dose: 10 mg Documented By: ISRAEL Simethicone (Simethicone 80 Mg Tab.Chew) 160 mg PO TID [facility] Last Admin: 07/28/24 08:35 Dose: 160 mg Documented By: ISRAEL Sodium Chloride (0.9 % Sodium Chloride Flush 3 Ml Syringe) 3 ml IVFLUSH QSHIFT [facility] Last Admin: 07/28/24 08:36 Dose: 3 ml Documented By: ISRAEL Labs 07/28/24 08:32 07/28/24 08:32 Labs: Laboratory Results - last 24 hr 07/27/24 07/27/24 07/27/24 11:17 15:12 21:20 MCV MCH MCHC RDW Plt Count MPV Absolute Nucleated RBC Nucleated RBC % (auto) Anion Gap Estim Creat Clear Calc Estimated GFR POC Glucose 111 161 H 86 Random Glucose Calcium 07/28/24 07/28/24 08:24 08:32 MCV 87.5 MCH 27.0 MCHC 30.9 L RDW 17.1 H Plt Count 194 MPV 10.7 Absolute Nucleated RBC 0.000 Nucleated RBC % (auto) 0.0 Anion Gap 10 L Estim Creat Clear Calc 26.9 Estimated GFR 31 POC Glucose 83 Random Glucose 91 Calcium 9.4 Assessment and Plan (1) Diverticulitis: Status: Acute Plan 78yo F with chronic idiopathic constipation, JOVANNI, HLD, GERD, asthma, CHF, pAF on apixaban, obesity presenting with diarrhea and abd pain, found to have sigmoid thickening suspicious for diverticulitis though no LLQ tenderness admitted for MARIA R/hyperkalemia MARIA R -FENa 4.4% though BUN/Cr suggests prerenal and SCr improving with IV fluids. slowly improving with IVF, will encourage oral today SCr 1.6 today (0.8-1) hyperK (mild today 5.0) - Initially Resolved after holding losartan + spironolactone and giving 2 doses of Lokelma. Hold losartan + spironolactone as above hypothermia--Bear hauger as needed, gaol of temp 98 diarrhea no further episodes possible diverticulitis - 07/24- ceftriaxone + metronidazole. Should have outpt GI follow-up for colonoscopy [followed by [facility] [place] [facility]], treat for 7 days, ending 07/30 asymptomatic bacteruria - on ceftriaxone for diverticulitis as above, not UTI CHRONIC ISSUES pAF: continue carvedilol, apixaban HLD: continue statin HTN: continue amlodipine, carvedilol; hold losartan + spironolactone chronic HFpEF: hold furosemide + losartan + spironolactone DM2: iona-dose lispro VTE ppx - apixaban dispo - anticipate home with VNA per PT eval In my clinical judgment, the patient requires continued inpatient hospitalization for the following reasons: monitor of temp without warming blankets, awaiting tolerance of diet, monitoring renal function Total time managing care of this patient today: 40 minutes. Quality Stroke Does the patient have a stroke diagnosis?: No VTE Prior VTE?: No VTE Risk Level:: Medical - moderate - high VTE Device Contraindication: Treatment Not Indicated VTE Drug Contraindication: N/A - Med Ordered
[2024-07-28 11:13] LABS: Glucose, Whole Blood 98 mg/dL (60-115)
[2024-07-28 16:10] LABS: Glucose, Whole Blood 107 mg/dL (60-115)
[2024-07-28] MEDS: metroNIDAZOLE 500 MG TABLET PO ×2 (16:12→21:35)
[2024-07-28] MEDS: cefTRIAXone sodium 1 GM VIAL IVPUSH (18:14)
[2024-07-28 21:19] LABS: Glucose, Whole Blood 133 mg/dL (60-115)
[2024-07-28] MEDS: Mirtazapine 15 MG TABLET PO (21:35)
[2024-07-28] MEDS: amLODIPine Besylate 10 MG TABLET PO (21:35)
[2024-07-29 04:00] VITALS: BP 140/65; PULSE 60; RESP 20; TEMP 36.3; O2SAT 98
[2024-07-29] MEDS: metroNIDAZOLE 500 MG TABLET PO ×3 (05:49→22:25)
[2024-07-29 07:26] LABS: Glucose, Whole Blood 76 mg/dL (60-115)
[2024-07-29 07:33] VITALS: BP 140/64; PULSE 62; RESP 16; TEMP 36.7; O2SAT 97
[2024-07-29] MEDS: Simethicone 80 MG TAB.CHEW 160 MG PO ×3 (08:29→19:56)
[2024-07-29] MEDS: Apixaban 2.5 MG TABLET PO ×2 (08:29→19:56)
[2024-07-29] MEDS: Calcium Oyster Shell Elemental 500 MG TABLET PO (08:29)
[2024-07-29] MEDS: oxyBUTYnin chloride ER 5 MG TAB.ER.24 10 MG PO (08:29)
[2024-07-29] MEDS: Atorvastatin Calcium 40 MG TABLET PO (08:30)
[2024-07-29] MEDS: Loratadine 10 MG TABLET PO (08:30)
[2024-07-29] MEDS: Milk of Magnesia 30 ML ORAL.SUSP PO (08:30)
[2024-07-29] MEDS: 0.9 % Sodium Chloride Flush 3 ML SYRINGE IVFLUSH ×2 (08:30→22:33)
--- NOTE | 2024-07-29 10:12 | HO.PM.IMPN ---
Subjective Subjective Date of Service: 07/29/24 Interval History: seen and examined with captain assistant services daughter bedside, c/o having difficulty swallowing, and constipation x 5 days Physical Exam Vital Signs: Vital Signs: Last Vital Signs Temp 98.1 F 07/29/24 07:33 Pulse 62 07/29/24 07:33 Resp 16 07/29/24 07:33 BP 140/64 H 07/29/24 07:33 Pulse Ox 97 07/29/24 07:33 O2 Del Method Room Air 07/29/24 07:33 BMI result Body Mass Index 36.8 Const: Other: General: AO X 3, no acute distress Resp: CTA bilateral CVS: S1,S2,RRR GI: +BS, NT, no distention Skin: No rash Neuro: motor grossly intact Psych: appropriate affect Objective Data Active Medications Acetaminophen (Acetaminophen 325 Mg Tablet) 650 mg PO Q6H PRN PRN Reason: Pain, Mild 1-3,fever,headache Last Admin: 07/27/24 09:26 Dose: 650 mg Documented By: INEZ Amlodipine Besylate (Amlodipine Besylate 10 Mg Tablet) 10 mg PO BEDTIME [facility]; Protocol Last Admin: 07/28/24 21:35 Dose: 10 mg Documented By: JULES Apixaban (Apixaban 2.5 Mg Tablet) 2.5 mg PO BID [facility] Last Admin: 07/29/24 08:29 Dose: 2.5 mg Documented By: ISRAEL Atorvastatin Calcium (Atorvastatin Calcium 40 Mg Tablet) 40 mg PO DAILY [facility] Last Admin: 07/29/24 08:30 Dose: 40 mg Documented By: ISRAEL Calcium Carbonate (Calcium Carbonate 750 Mg Tab.Chew) 750 mg PO Q4H PRN PRN Reason: Heartburn Calcium Carbonate (Calcium Oyster Shell Elemental 500 Mg Tablet) 500 mg PO DAILY [facility] Last Admin: 07/29/24 08:29 Dose: 500 mg Documented By: ISRAEL Ceftriaxone Sodium (Ceftriaxone Sodium 1 Gm Vial) 1 gm IVPUSH Q24H [facility] Last Admin: 07/28/24 18:14 Dose: 1 gm Documented By: ISRAEL Glucose (Glucose Gel 15 Gm Gel..Gram.) 15 gm PO Q15M PRN; Protocol PRN Reason: per Hypoglycemia Standing Ord. Dextrose (D10) 250 mls @ 750 mls/hr IV Q15M PRN; Protocol PRN Reason: per Hypoglycemia Standing Ord. Insulin Human Lispro (Insulin Lispro 100 Unit/Ml 3 Ml Vial) 0 unit SUBCUT QIDACHS [facility]; Protocol Last Admin: 07/29/24 07:28 Dose: Not Given Documented By: ISRAEL Non-Admin Reason: No Insulin Coverage Loratadine (Loratadine 10 Mg Tablet) 10 mg PO DAILY [facility] Last Admin: 07/29/24 08:30 Dose: 10 mg Documented By: ISRAEL Magnesium Hydroxide (Milk Of Magnesia 30 Ml Oral.Susp) 30 ml PO DAILY PRN PRN Reason: Constipation Last Admin: 07/29/24 08:30 Dose: 30 ml Documented By: ISRAEL Melatonin (Melatonin 3 Mg Tablet) 6 mg PO BEDTIME PRN PRN Reason: Insomnia Metronidazole (Metronidazole 500 Mg Tablet) 500 mg PO Q8H [facility] Last Admin: 07/29/24 05:49 Dose: 500 mg Documented By: JULES Mirtazapine (Mirtazapine 15 Mg Tablet) 15 mg PO BEDTIME [facility] Last Admin: 07/28/24 21:35 Dose: 15 mg Documented By: JULES Ondansetron HCl (Ondansetron Hcl 4 Mg/2 Ml Vial) 4 mg IVPUSH Q8H PRN PRN Reason: Nausea and Vomiting Oxybutynin Chloride (Oxybutynin Chloride Er 5 Mg Tab.Er.24) 10 mg PO DAILY [facility] Last Admin: 07/29/24 08:29 Dose: 10 mg Documented By: ISRAEL Simethicone (Simethicone 80 Mg Tab.Chew) 160 mg PO TID [facility] Last Admin: 07/29/24 08:29 Dose: 160 mg Documented By: ISRAEL Sodium Chloride (0.9 % Sodium Chloride Flush 3 Ml Syringe) 3 ml IVFLUSH QSHIFT [facility] Last Admin: 07/29/24 08:30 Dose: 3 ml Documented By: ISRAEL Labs 07/28/24 08:32 07/28/24 08:32 Labs: Laboratory Results - last 24 hr 07/28/24 07/28/24 07/28/24 11:09 16:06 21:14 POC Glucose 98 107 133 H 07/29/24 07:17 POC Glucose 76 Assessment and Plan (1) Diverticulitis: Status: Acute Plan 78yo F with chronic idiopathic constipation, JOVANNI, HLD, GERD, asthma, CHF, pAF on apixaban, obesity presenting with diarrhea and abd pain, found to have sigmoid thickening suspicious for diverticulitis though no LLQ tenderness admitted for MARIA R/hyperkalemia MARIA R -FENa 4.4% though BUN/Cr suggests prerenal and SCr improving with IV fluids. improving, check today hyperK (mild today 5.0) - Initially Resolved after holding losartan + spironolactone and giving 2 doses of Lokelma. Hold losartan + spironolactone as above hypothermia--Bear hauger as needed, gaol of temp 98, presently 98.1 Dysphagia--gi consult diarrhea no further episodes constiapation, bowel regimen possible diverticulitis - 07/24- ceftriaxone + metronidazole. Should have outpt GI follow-up for colonoscopy [followed by [facility] [place] [facility]], treat for 7 days, ending 07/30 asymptomatic bacteruria - on ceftriaxone for diverticulitis as above, not UTI CHRONIC ISSUES pAF: continue carvedilol, apixaban HLD: continue statin HTN: continue amlodipine, carvedilol; hold losartan + spironolactone chronic HFpEF: hold furosemide + losartan + spironolactone DM2: iona-dose lispro VTE ppx - apixaban dispo - anticipate home with VNA per PT eval In my clinical judgment, the patient requires continued inpatient hospitalization for the following reasons: monitor of temp without warming blankets, awaiting tolerance of diet, monitoring renal function Total time managing care of this patient today: 40 minutes. Quality Stroke Does the patient have a stroke diagnosis?: No VTE Prior VTE?: No VTE Risk Level:: Medical - moderate - high VTE Device Contraindication: Treatment Not Indicated VTE Drug Contraindication: N/A - Med Ordered
[2024-07-29] MEDS: polyethylene glycoL 3350 17 GM POWD.PACK PO (10:26)
[2024-07-29] MEDS: Lactated Ringers 1,000 ML 100 ML IVCONT ×2 (10:26→19:56)
[2024-07-29 11:25] LABS: Anion Gap 11 (12-20); Blood Urea Nitrogen 26 mg/dL (9-16); Calcium 9.3 mg/dL (8.4-10.2); Carbon Dioxide 23 mmol/L (22-29); Chloride 114 mmol/L (96-108); Creatinine Clr Calc Pharmacy 27.7; Estimated Glomerular Filt Rate 32; Glucose Random 100 mg/dL (60-115); Potassium 4.8 mmol/L (3.3-5.1); Sodium 143 mmol/L (135-145)
[2024-07-29 11:37] LABS: Glucose, Whole Blood 88 mg/dL (60-115)
[2024-07-29 12:00] VITALS: BP 140/64; PULSE 65; RESP 20; TEMP 36.4; O2SAT 97
[2024-07-29 16:08] LABS: Glucose, Whole Blood 96 mg/dL (60-115)
[2024-07-29] MEDS: cefTRIAXone sodium 1 GM VIAL IVPUSH (18:02)
[2024-07-29 19:32] VITALS: BP 149/70; PULSE 62; RESP 18; TEMP 34.6; O2SAT 98
[2024-07-29] MEDS: Mirtazapine 15 MG TABLET PO (19:55)
[2024-07-29] MEDS: amLODIPine Besylate 10 MG TABLET PO (19:56)
[2024-07-29 21:14] LABS: Glucose, Whole Blood 105 mg/dL (60-115)
[2024-07-29 21:30] VITALS: TEMP 36.3
[2024-07-29 22:33] VITALS: TEMP 37.2
[2024-07-30] VITALS (8 sets, daily range): BP systolic 121–141; BP diastolic 56–65; PULSE 69–84; RESP 16–18; TEMP 35.6–36.7; O2SAT 93–97
[2024-07-30] MEDS: metroNIDAZOLE 500 MG TABLET PO ×3 (04:27→21:40)
[2024-07-30] MEDS: Lactated Ringers 1,000 ML 100 ML IVCONT ×2 (05:30→15:01)
[2024-07-30 07:42] LABS: Anion Gap 9 (12-20); Blood Urea Nitrogen 22 mg/dL (9-16); Calcium 9.1 mg/dL (8.4-10.2); Carbon Dioxide 22 mmol/L (22-29); Chloride 115 mmol/L (96-108); Creatinine Clr Calc Pharmacy 31.7; Estimated Glomerular Filt Rate 37; Glucose Random 70 mg/dL (60-115); Potassium 5.1 mmol/L (3.3-5.1); Sodium 141 mmol/L (135-145)
[2024-07-30 07:49] LABS: Glucose, Whole Blood 73 mg/dL (60-115)
[2024-07-30] MEDS: Atorvastatin Calcium 40 MG TABLET PO (07:52)
[2024-07-30] MEDS: Loratadine 10 MG TABLET PO (07:52)
[2024-07-30] MEDS: oxyBUTYnin chloride ER 5 MG TAB.ER.24 10 MG PO (07:52)
[2024-07-30] MEDS: Calcium Oyster Shell Elemental 500 MG TABLET PO (07:52)
[2024-07-30] MEDS: Simethicone 80 MG TAB.CHEW 160 MG PO ×3 (07:52→21:39)
[2024-07-30] MEDS: Apixaban 2.5 MG TABLET PO ×2 (07:52→21:40)
[2024-07-30] MEDS: Milk of Magnesia 30 ML ORAL.SUSP PO (07:59)
--- NOTE | 2024-07-30 09:47 | P.CNGI_ITS ---
History of Present Illness Data of Consult Service Date: 07/30/24 Primary Care Provider: [facility] HPI Reason for consult: dysphagia 78-year-old female with a past medical history significant for chronic idiopathic constipation, obstructive sleep apnea, hyperlipidemia, GERD, asthma, CHF, paroxysmal atrial fibrillation on Eliquis, and obesity, who I am seeing for assessment for swallowing problems. Patient initially presented with constipation and associated mild lower abdominal pain, without any relieiving factors or exacerbating factors. she denies fever, chills, nausea, vomiting or hematochezia. she had poor appetite and bloating attributed to ozempic. the last 2 d she noted she has a cough with difficulty swallowing food but ok with fluids. She feels like choking with burning in the epigastrium with burping and occasional acid reflux. she denies diarrhea or blood in stool she is being treated for E coli UTI. she had CT on admission with concern for possible diverticulitis. last colo 2015- small TA removed Review of Systems 2 Review of Systems: Constitutional : No Weight loss, No Fever, No Chills ENT/Mouth : No sore throat, No Rhinorrhea Eyes: No Swelling, No Redness Cardiovascular : No Chest Pain, No SOB, No Edema Respiratory : No Cough, No Sputum, No Wheezing Gastrointestinal : see HPI Genitourinary : NO Dysuria, No Urinary Frequency, No Hematuria, No Urgency Musculoskeletal : No joint pain, No Myalgias, No Joint Swelling Skin : No Skin Lesions, No rash Neuro : No Weakness, No Numbness, No Dizziness, No Headache Psych : No Anxiety/Panic, No Depression Heme/Lymph: No Bruising, No Lymphadenopathy Endocrine : No Polyuria, No Polydipsia All other systems reviewed and are negative. [facility] Past Medical History Medical History (Updated 07/30/24 @ 13:54 by Ovi Knowles MD) Epigastric pain Tubular adenoma of colon Preop cardiovascular exam Urinary urgency Pneumonia Hospital discharge follow-up Asthma MARIA R (acute kidney injury) GERD (gastroesophageal reflux disease) Diabetes Osteoarthritis Hyperlipidemia Chronic diastolic heart failure Hypertension JOVANNI (obstructive sleep apnea) Family History Family History Father HTN (hypertension) Mother HTN (hypertension) CVD (cardiovascular disease) Daughter Bone cancer Father Cancer Surgical History Surgical History Hx of cataract surgery Status post total knee replacement, right History of arthroplasty of right knee Hx of colonoscopy H/O: hysterectomy History of salpingoophorectomy History of tonsillectomy Social History Social History Household Members: None Housing: Apartment Are you a primary career development director to a significant other at home: No Do you presently have visiting nurse or other home services: Yes Unable to assess alcohol history related to: Unknown Alcohol intake: never Comment: Advised to remove Patient Tobacco Use Status: Never used Tobacco Second Hand Smoke Exposure: No service: No Current occupational status: retired Current occupation: Right handed Meds Allergies Allergy/AdvReac Type Severity Reaction Status Date / Time Penicillins [PENICILLINS] Allergy Intermediate NAUSEA/HIVE Verified 07/24/24 15:38 S metformin AdvReac Unknown Diarrhea Verified 07/24/24 15:38 Active Medications: Current Medications Acetaminophen (Acetaminophen 325 Mg Tablet) 650 mg PO Q6H PRN PRN Reason: Pain, Mild 1-3,fever,headache Last Admin: 07/27/24 09:26 Dose: 650 mg Amlodipine Besylate (Amlodipine Besylate 10 Mg Tablet) 10 mg PO BEDTIME [facility]; Protocol Last Admin: 07/29/24 19:56 Dose: 10 mg Apixaban (Apixaban 2.5 Mg Tablet) 2.5 mg PO BID [facility] Last Admin: 07/30/24 07:52 Dose: 2.5 mg Atorvastatin Calcium (Atorvastatin Calcium 40 Mg Tablet) 40 mg PO DAILY [facility] Last Admin: 07/30/24 07:52 Dose: 40 mg Calcium Carbonate (Calcium Carbonate 750 Mg Tab.Chew) 750 mg PO Q4H PRN PRN Reason: Heartburn Calcium Carbonate (Calcium Oyster Shell Elemental 500 Mg Tablet) 500 mg PO DAILY [facility] Last Admin: 07/30/24 07:52 Dose: 500 mg Ceftriaxone Sodium (Ceftriaxone Sodium 1 Gm Vial) 1 gm IVPUSH Q24H [facility] Last Admin: 07/29/24 18:02 Dose: 1 gm Glucose (Glucose Gel 15 Gm Gel..Gram.) 15 gm PO Q15M PRN; Protocol PRN Reason: per Hypoglycemia Standing Ord. Dextrose (D10) 250 mls @ 750 mls/hr IV Q15M PRN; Protocol PRN Reason: per Hypoglycemia Standing Ord. Lactated Ringer's (Lr) 1,000 mls @ 100 mls/hr IVCONT .Q10H [facility] Last Admin: 07/30/24 05:30 Dose: 100 mls/hr Insulin Human Lispro (Insulin Lispro 100 Unit/Ml 3 Ml Vial) 0 unit SUBCUT QIDACHS [facility]; Protocol Last Admin: 07/30/24 07:53 Dose: Not Given Loratadine (Loratadine 10 Mg Tablet) 10 mg PO DAILY [facility] Last Admin: 07/30/24 07:52 Dose: 10 mg Magnesium Hydroxide (Milk Of Magnesia 30 Ml Oral.Susp) 30 ml PO DAILY PRN PRN Reason: Constipation Last Admin: 07/30/24 07:59 Dose: 30 ml Melatonin (Melatonin 3 Mg Tablet) 6 mg PO BEDTIME PRN PRN Reason: Insomnia Metronidazole (Metronidazole 500 Mg Tablet) 500 mg PO Q8H [facility] Last Admin: 07/30/24 04:27 Dose: 500 mg Mirtazapine (Mirtazapine 15 Mg Tablet) 15 mg PO BEDTIME [facility] Last Admin: 07/29/24 19:55 Dose: 15 mg Ondansetron HCl (Ondansetron Hcl 4 Mg/2 Ml Vial) 4 mg IVPUSH Q8H PRN PRN Reason: Nausea and Vomiting Oxybutynin Chloride (Oxybutynin Chloride Er 5 Mg Tab.Er.24) 10 mg PO DAILY [facility] Last Admin: 07/30/24 07:52 Dose: 10 mg Simethicone (Simethicone 80 Mg Tab.Chew) 160 mg PO TID [facility] Last Admin: 07/30/24 07:52 Dose: 160 mg Sodium Chloride (0.9 % Sodium Chloride Flush 3 Ml Syringe) 3 ml IVFLUSH QSHIFT [facility] Last Admin: 07/30/24 07:53 Dose: Not Given Home Medications ?Medication ?Instructions ?Recorded ?Confirmed ?Last Taken ?Type oxybutynin chloride 5 mg tablet 5 mg PO BID 05/15/20 07/24/24 07/23/24 History calcium carbonate 1 tab PO DAILY 03/24/21 07/24/24 07/23/24 History cholecalciferol (vitamin D3) 25 1 tab PO DAILY 03/24/21 07/24/24 07/23/24 History mcg (1,000 unit) tablet fluticasone propionate 50 1 - 2 spray intranasal DAILY PRN 03/24/21 07/24/24 11/01/22 History mcg/actuation nasal Nasal Congestion spray,suspension cyanocobalamin (vitamin B-12) 1,000 mcg IM Q28D 11/02/22 07/24/24 07/03/24 History 1,000 mcg/mL injection solution cetirizine 10 mg tablet 10 mg PO DAILY 07/17/24 07/24/24 07/23/24 History mirtazapine 15 mg tablet 15 mg PO BEDTIME 07/17/24 07/24/24 07/23/24 History amlodipine 10 mg tablet 10 mg PO BEDTIME 07/24/24 07/24/24 07/23/24 History empagliflozin 10 mg tablet 10 mg PO DAILY 07/24/24 07/24/24 07/23/24 History (Jardiance) linaclotide 145 mcg capsule 145 mcg PO DAILY 07/24/24 07/24/24 07/23/24 History (Linzess) losartan 100 mg tablet 100 mg PO DAILY 07/24/24 07/24/24 07/23/24 History Physical Exam 2 Vital Signs: Vital Signs: Last Vital Signs Temp 97.7 F 07/30/24 07:58 Pulse 81 07/30/24 07:58 Resp 16 07/30/24 07:58 BP 134/56 L 07/30/24 07:58 Pulse Ox 94 07/30/24 07:58 O2 Del Method Room Air 07/30/24 07:58 BMI result Body Mass Index 36.8 EXAM: GENERAL: The patient is well developed and nontoxic. VITAL SIGNS:see workflow HEENT: Nonicteric sclerae, PERRLA, EOMI. Oropharynx clear. Moist mucous membranes. Conjunctivae appear well perfused. No thyroid mass. CHEST: Chest wall is nontender. HEART: Regular rate and rhythm without murmurs. LUNGS: Clear to auscultation bilaterally. ABDOMEN: Soft, positive bowel sounds, nontender, no organomegaly.no flank tenderness SKIN: No rash, no excessive bruising, petechiae, or purpura. NEUROLOGIC: Cranial nerves II-XII intact without motor/sensory deficit. Psych: normal affect Results Labs 07/28/24 08:32 07/30/24 06:03 Labs: BMP 07/29/24 07/30/24 10:37 06:03 Sodium 143 141 Potassium 4.8 5.1 Chloride 114 H 115 H Carbon Dioxide 23 22 BUN 26 H 22 H Creatinine 1.57 H 1.37 Calcium 9.3 9.1 Microbiology Microbiology Results: Microbiology 07/24/24 21:08 Blood - Venous Blood Culture - Final No growth after 5 days. 07/24/24 20:54 Blood - Venous Blood Culture - Final No growth after 5 days. 07/24/24 Unknown Urine clean catch - Clean Catch Midstream Urine Culture - Final Escherichia coli Imaging CT scan - abdomen: Attestation: I personally reviewed and interpreted this imaging study as follows: (atherosclerosis, degen spinal disease, diverticulosis ) Assessment and Plan (1) Dysphagia: Qualifiers: Dysphagia type: oropharyngeal phase Qualified Code(s): R13.12 - Dysphagia, oropharyngeal phase Status: Acute Plan 1/ Acute dysphagia, possibly from refluc, no oral thrush seen but christiano could also be possible PLAN: /1 Ba swallow, with pill, depending on this can consider EGD with dilation but has to stop apixiban for few days before 2/ commence PPI e.g pantoprazole 40 mg in the meantime Procedures Date of Service Date of Service: 07/30/24
[2024-07-30 11:56] LABS: Glucose, Whole Blood 95 mg/dL (60-115)
--- NOTE | 2024-07-30 13:28 | MHC.CM.PN ---
EMR reviewed and per MD rounds, pt is not medically cleared for discharge at this time.
--- NOTE | 2024-07-30 14:33 | HO.PM.IMPN ---
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 services still c/o difficulty breathing and intermittent low temp presently normal temp Physical Exam Vital Signs: Vital Signs: Last Vital Signs Temp 98.0 F 07/30/24 11:42 Pulse 84 07/30/24 11:42 Resp 16 07/30/24 11:42 BP 121/57 L 07/30/24 11:42 Pulse Ox 93 07/30/24 11:42 O2 Del Method Room Air 07/30/24 11:42 BMI result Body Mass Index 36.8 Const: Other: General: AO X 3, no acute distress Resp: CTA bilateral CVS: S1,S2,RRR GI: +BS, NT, no distention Skin: No rash Neuro: motor grossly intact Psych: appropriate affect Objective Data Active Medications Acetaminophen (Acetaminophen 325 Mg Tablet) 650 mg PO Q6H PRN PRN Reason: Pain, Mild 1-3,fever,headache Last Admin: 07/27/24 09:26 Dose: 650 mg Documented By: INEZ Amlodipine Besylate (Amlodipine Besylate 10 Mg Tablet) 10 mg PO BEDTIME [facility]; Protocol Last Admin: 07/29/24 19:56 Dose: 10 mg Documented By: JULES Apixaban (Apixaban 2.5 Mg Tablet) 2.5 mg PO BID [facility] Last Admin: 07/30/24 07:52 Dose: 2.5 mg Documented By: NIK Atorvastatin Calcium (Atorvastatin Calcium 40 Mg Tablet) 40 mg PO DAILY [facility] Last Admin: 07/30/24 07:52 Dose: 40 mg Documented By: NIK Calcium Carbonate (Calcium Carbonate 750 Mg Tab.Chew) 750 mg PO Q4H PRN PRN Reason: Heartburn Calcium Carbonate (Calcium Oyster Shell Elemental 500 Mg Tablet) 500 mg PO DAILY [facility] Last Admin: 07/30/24 07:52 Dose: 500 mg Documented By: NIK Ceftriaxone Sodium (Ceftriaxone Sodium 1 Gm Vial) 1 gm IVPUSH Q24H [facility] Last Admin: 07/29/24 18:02 Dose: 1 gm Documented By: ISRAEL Glucose (Glucose Gel 15 Gm Gel..Gram.) 15 gm PO Q15M PRN; Protocol PRN Reason: per Hypoglycemia Standing Ord. Dextrose (D10) 250 mls @ 750 mls/hr IV Q15M PRN; Protocol PRN Reason: per Hypoglycemia Standing Ord. Lactated Ringer's (Lr) 1,000 mls @ 100 mls/hr IVCONT .Q10H [facility] Last Admin: 07/30/24 05:30 Dose: 100 mls/hr Documented By: JULES Insulin Human Lispro (Insulin Lispro 100 Unit/Ml 3 Ml Vial) 0 unit SUBCUT QIDACHS [facility]; Protocol Last Admin: 07/30/24 12:15 Dose: Not Given Documented By: RACQUEL Non-Admin Reason: No Insulin Coverage Loratadine (Loratadine 10 Mg Tablet) 10 mg PO DAILY [facility] Last Admin: 07/30/24 07:52 Dose: 10 mg Documented By: NIK Magnesium Hydroxide (Milk Of Magnesia 30 Ml Oral.Susp) 30 ml PO DAILY PRN PRN Reason: Constipation Last Admin: 07/30/24 07:59 Dose: 30 ml Documented By: NIK Melatonin (Melatonin 3 Mg Tablet) 6 mg PO BEDTIME PRN PRN Reason: Insomnia Metronidazole (Metronidazole 500 Mg Tablet) 500 mg PO Q8H [facility] Last Admin: 07/30/24 04:27 Dose: 500 mg Documented By: JULES Mirtazapine (Mirtazapine 15 Mg Tablet) 15 mg PO BEDTIME [facility] Last Admin: 07/29/24 19:55 Dose: 15 mg Documented By: JULES Ondansetron HCl (Ondansetron Hcl 4 Mg/2 Ml Vial) 4 mg IVPUSH Q8H PRN PRN Reason: Nausea and Vomiting Oxybutynin Chloride (Oxybutynin Chloride Er 5 Mg Tab.Er.24) 10 mg PO DAILY [facility] Last Admin: 07/30/24 07:52 Dose: 10 mg Documented By: NIK Simethicone (Simethicone 80 Mg Tab.Chew) 160 mg PO TID [facility] Last Admin: 07/30/24 07:52 Dose: 160 mg Documented By: NIK Sodium Chloride (0.9 % Sodium Chloride Flush 3 Ml Syringe) 3 ml IVFLUSH QSHIFT [facility] Last Admin: 07/30/24 07:53 Dose: Not Given Documented By: NIK Non-Admin Reason: IV Running Labs 07/28/24 08:32 07/30/24 06:03 Labs: Laboratory Results - last 24 hr 07/29/24 07/29/24 07/30/24 15:46 21:09 06:03 Hold Purple Top SEE NOTE Anion Gap 9 L Estim Creat Clear Calc 31.7 Estimated GFR 37 POC Glucose 96 105 Random Glucose 70 Calcium 9.1 07/30/24 07/30/24 07:45 11:52 Hold Purple Top Anion Gap Estim Creat Clear Calc Estimated GFR POC Glucose 73 95 Random Glucose Calcium Microbiology Microbiology Results: Microbiology 07/24/24 21:08 Blood Culture - Final Blood - Venous No growth after 5 days. 07/24/24 20:54 Blood Culture - Final Blood - Venous No growth after 5 days. Assessment and Plan (1) Diverticulitis: Status: Acute Plan 78yo F with chronic idiopathic constipation, JOVANNI, HLD, GERD, asthma, CHF, pAF on apixaban, obesity presenting with diarrhea and abd pain, found to have sigmoid thickening suspicious for diverticulitis though no LLQ tenderness admitted for MARIA R/hyperkalemia MARIA R -FENa 4.4% though BUN/Cr suggests prerenal and SCr improving with IV fluids. improving, check today hyperK (mild today 5.0) - Initially Resolved after holding losartan + spironolactone and giving 2 doses of Lokelma. Hold losartan + spironolactone as above hypothermia--Bear hauger as needed, gaol of temp 98, presently 98.1 Dysphagia--gi recommend Barium swallow with piil diarrhea no further episodes constiapation, bowel regimen possible diverticulitis - 07/24- ceftriaxone + metronidazole. Should have outpt GI follow-up for colonoscopy [followed by [facility] [place] [facility]], treat for 7 days, ending 07/30 asymptomatic bacteruria - on ceftriaxone for diverticulitis as above, not UTI CHRONIC ISSUES pAF: continue carvedilol, apixaban HLD: continue statin HTN: continue amlodipine, carvedilol; hold losartan + spironolactone chronic HFpEF: hold furosemide + losartan + spironolactone DM2: iona-dose lispro VTE ppx - apixaban dispo - anticipate home with VNA per PT eval In my clinical judgment, the patient requires continued inpatient hospitalization for the following reasons: monitor of temp without warming blankets, awaiting tolerance of diet, monitoring renal function Total time managing care of this patient today: 40 minutes. Quality Stroke Does the patient have a stroke diagnosis?: No VTE Prior VTE?: No VTE Risk Level:: Medical - moderate - high VTE Device Contraindication: Treatment Not Indicated VTE Drug Contraindication: N/A - Med Ordered
[2024-07-30] MEDS: 0.9 % Sodium Chloride Flush 3 ML SYRINGE IVFLUSH ×2 (15:01→21:41)
[2024-07-30 16:32] LABS: Glucose, Whole Blood 116 mg/dL (60-115)
--- NOTE | 2024-07-30 18:35 | PC.NURSE ---
#22 angio inserted in left hand as requested by primary RN Julianna,pt tolerated it well
[2024-07-30] MEDS: cefTRIAXone sodium 1 GM VIAL IVPUSH (18:36)
[2024-07-30 20:28] LABS: Glucose, Whole Blood 111 mg/dL (60-115)
[2024-07-30] MEDS: amLODIPine Besylate 10 MG TABLET PO (21:40)
[2024-07-30] MEDS: Mirtazapine 15 MG TABLET PO (21:40)
[2024-07-31] MEDS: Lactated Ringers 1,000 ML 100 ML IVCONT (00:16)
[2024-07-31] MEDS: metroNIDAZOLE 500 MG TABLET PO ×3 (05:27→21:59)
[2024-07-31 05:30] VITALS: BP 124/60; PULSE 65; RESP 16; TEMP 36.2; O2SAT 96
[2024-07-31 06:22] LABS: Anion Gap 9 (12-20); Blood Urea Nitrogen 18 mg/dL (9-16); Carbon Dioxide 24 mmol/L (22-29); Chloride 114 mmol/L (96-108); Creatinine Clr Calc Pharmacy 35.6; Estimated Glomerular Filt Rate 42; Glucose Random 75 mg/dL (60-115); Potassium 4.8 mmol/L (3.3-5.1); Sodium 142 mmol/L (135-145)
[2024-07-31 07:27] LABS: Glucose, Whole Blood 75 mg/dL (60-115)
[2024-07-31 07:28] VITALS: BP 153/63; PULSE 86; RESP 18; TEMP 36; O2SAT 97
[2024-07-31] MEDS: oxyBUTYnin chloride ER 5 MG TAB.ER.24 10 MG PO (07:39)
[2024-07-31] MEDS: Loratadine 10 MG TABLET PO (07:40)
[2024-07-31] MEDS: Calcium Oyster Shell Elemental 500 MG TABLET PO (07:40)
[2024-07-31] MEDS: Simethicone 80 MG TAB.CHEW 160 MG PO ×3 (07:40→21:59)
[2024-07-31] MEDS: Apixaban 2.5 MG TABLET PO (07:40)
[2024-07-31] MEDS: Atorvastatin Calcium 40 MG TABLET PO (07:40)
[2024-07-31] MEDS: 0.9 % Sodium Chloride Flush 3 ML SYRINGE IVFLUSH ×3 (07:41→22:00)
[2024-07-31 11:31] LABS: Glucose, Whole Blood 109 mg/dL (60-115)
[2024-07-31 13:33] LABS: Glucose, Whole Blood 137 mg/dL (60-115)
--- NOTE | 2024-07-31 14:21 | P.PNGI_ITS ---
Subjective Subjective Date of Service: 07/31/24 Interval History: she still has dysphagia no n/v no constipation or diarrhea ba swallow with abn peristasis of esophagus, possible gastritis Critical Care Time (minutes): 0 Physical Exam 2 Vital Signs: Vital Signs: Last Vital Signs Temp 96.8 F 07/31/24 07:28 Pulse 86 07/31/24 07:28 Resp 18 07/31/24 07:28 BP 153/63 H 07/31/24 07:28 Pulse Ox 97 07/31/24 07:28 O2 Del Method Room Air 07/31/24 07:28 BMI result Body Mass Index 36.8 EXAM: GENERAL: The patient is well developed and nontoxic. VITAL SIGNS:see workflow HEENT: Nonicteric sclerae, PERRLA, EOMI. Oropharynx clear. Moist mucous membranes. Conjunctivae appear well perfused. No thyroid mass. CHEST: Chest wall is nontender. HEART: Regular rate and rhythm without murmurs. LUNGS: Clear to auscultation bilaterally. ABDOMEN: Soft, positive bowel sounds, nontender, no organomegaly.no flank tenderness SKIN: No rash, no excessive bruising, petechiae, or purpura. NEUROLOGIC: Cranial nerves II-XII intact without motor/sensory deficit. Psych: normal affect Objective Data Labs 07/28/24 08:32 07/31/24 05:33 Labs: Laboratory Results - last 24 hr 07/30/24 07/30/24 07/31/24 16:28 20:23 05:33 Hold Purple Top SEE NOTE Sodium 142 Potassium 4.8 Chloride 114 H Carbon Dioxide 24 Anion Gap 9 L BUN 18 H Creatinine 1.22 Estim Creat Clear Calc 35.6 Estimated GFR 42 POC Glucose 116 H 111 Random Glucose 75 Calcium 9.0 07/31/24 07/31/24 07/31/24 07:03 11:14 13:27 Hold Purple Top Sodium Potassium Chloride Carbon Dioxide Anion Gap BUN Creatinine Estim Creat Clear Calc Estimated GFR POC Glucose 75 109 137 H Random Glucose Calcium Microbiology Microbiology Results: Microbiology 07/24/24 21:08 Blood - Venous Blood Culture - Final No growth after 5 days. 07/24/24 20:54 Blood - Venous Blood Culture - Final No growth after 5 days. 07/24/24 Unknown Urine clean catch - Clean Catch Midstream Urine Culture - Final Escherichia coli Procedures Date of Service Date of Service: 07/31/24 Progress Note: A&P Assessment and plan (1) Dysphagia: Status: Acute Plan 1/ acute dysphagia, no obvious cause on ba swallow plan: 1/ EGD on , hold eliquis for 2 d, optimize lytes, K, Mag and Ca 2/ PPI e.g pantoprazole 40 mg daily Time Spent With Patient Time: Total time managing care of this patient today ____ minutes. Quality Stroke Does the patient have a stroke diagnosis?: No VTE Prior VTE?: No VTE Risk Level:: Medical - moderate - high VTE Device Contraindication: Treatment Not Indicated VTE Drug Contraindication: N/A - Med Ordered
--- NOTE | 2024-07-31 14:30 | HO.PM.IMPN ---
Subjective Subjective Date of Service: 07/31/24 Interval History: seen and examined with internal controls consultant services still c/o difficulty breathing and intermittent low temp MBS show some esophageal dysmotility, corkscrew esophagitis Physical Exam Vital Signs: Vital Signs: Last Vital Signs Temp 96.8 F 07/31/24 07:28 Pulse 86 07/31/24 07:28 Resp 18 07/31/24 07:28 BP 153/63 H 07/31/24 07:28 Pulse Ox 97 07/31/24 07:28 O2 Del Method Room Air 07/31/24 07:28 BMI result Body Mass Index 36.8 General: AO X 3, no acute distress Resp: CTA bilateral CVS: S1,S2,RRR GI: +BS, NT, no distention Skin: No rash Neuro: motor grossly intact Psych: appropriate affect Objective Data Active Medications Acetaminophen (Acetaminophen 325 Mg Tablet) 650 mg PO Q6H PRN PRN Reason: Pain, Mild 1-3,fever,headache Last Admin: 07/27/24 09:26 Dose: 650 mg Documented By: INEZ Amlodipine Besylate (Amlodipine Besylate 10 Mg Tablet) 10 mg PO BEDTIME [facility]; Protocol Last Admin: 07/30/24 21:40 Dose: 10 mg Documented By: JANA Apixaban (Apixaban 2.5 Mg Tablet) 2.5 mg PO BID [facility] Last Admin: 07/31/24 07:40 Dose: 2.5 mg Documented By: RACQUEL Atorvastatin Calcium (Atorvastatin Calcium 40 Mg Tablet) 40 mg PO DAILY [facility] Last Admin: 07/31/24 07:40 Dose: 40 mg Documented By: RACQUEL Calcium Carbonate (Calcium Carbonate 750 Mg Tab.Chew) 750 mg PO Q4H PRN PRN Reason: Heartburn Calcium Carbonate (Calcium Oyster Shell Elemental 500 Mg Tablet) 500 mg PO DAILY [facility] Last Admin: 07/31/24 07:40 Dose: 500 mg Documented By: RACQUEL Ceftriaxone Sodium (Ceftriaxone Sodium 1 Gm Vial) 1 gm IVPUSH Q24H [facility] Last Admin: 07/30/24 18:36 Dose: 1 gm Documented By: RACQUEL Glucose (Glucose Gel 15 Gm Gel..Gram.) 15 gm PO Q15M PRN; Protocol PRN Reason: per Hypoglycemia Standing Ord. Dextrose (D10) 250 mls @ 750 mls/hr IV Q15M PRN; Protocol PRN Reason: per Hypoglycemia Standing Ord. Insulin Human Lispro (Insulin Lispro 100 Unit/Ml 3 Ml Vial) 0 unit SUBCUT QIDACHS [facility]; Protocol Last Admin: 07/31/24 11:42 Dose: Not Given Documented By: RACQUEL Non-Admin Reason: No Insulin Coverage Loratadine (Loratadine 10 Mg Tablet) 10 mg PO DAILY [facility] Last Admin: 07/31/24 07:40 Dose: 10 mg Documented By: RACQUEL Magnesium Hydroxide (Milk Of Magnesia 30 Ml Oral.Susp) 30 ml PO DAILY PRN PRN Reason: Constipation Last Admin: 07/30/24 07:59 Dose: 30 ml Documented By: NIK Melatonin (Melatonin 3 Mg Tablet) 6 mg PO BEDTIME PRN PRN Reason: Insomnia Metronidazole (Metronidazole 500 Mg Tablet) 500 mg PO Q8H [facility] Last Admin: 07/31/24 05:27 Dose: 500 mg Documented By: JANA Mirtazapine (Mirtazapine 15 Mg Tablet) 15 mg PO BEDTIME [facility] Last Admin: 07/30/24 21:40 Dose: 15 mg Documented By: JANA Ondansetron HCl (Ondansetron Hcl 4 Mg/2 Ml Vial) 4 mg IVPUSH Q8H PRN PRN Reason: Nausea and Vomiting Oxybutynin Chloride (Oxybutynin Chloride Er 5 Mg Tab.Er.24) 10 mg PO DAILY [facility] Last Admin: 07/31/24 07:39 Dose: 10 mg Documented By: RACQUEL Simethicone (Simethicone 80 Mg Tab.Chew) 160 mg PO TID [facility] Last Admin: 07/31/24 07:40 Dose: 160 mg Documented By: RACQUEL Sodium Chloride (0.9 % Sodium Chloride Flush 3 Ml Syringe) 3 ml IVFLUSH QSHIFT [facility] Last Admin: 07/31/24 07:41 Dose: 3 ml Documented By: RACQUEL Labs 07/28/24 08:32 07/31/24 05:33 Labs: Laboratory Results - last 24 hr 07/30/24 07/30/24 07/31/24 16:28 20:23 05:33 Hold Purple Top SEE NOTE Anion Gap 9 L Estim Creat Clear Calc 35.6 Estimated GFR 42 POC Glucose 116 H 111 Random Glucose 75 Calcium 9.0 07/31/24 07/31/24 07/31/24 07:03 11:14 13:27 Hold Purple Top Anion Gap Estim Creat Clear Calc Estimated GFR POC Glucose 75 109 137 H Random Glucose Calcium Assessment and Plan (1) Diverticulitis: Status: Acute Plan 78yo F with chronic idiopathic constipation, JOVANNI, HLD, GERD, asthma, CHF, pAF on apixaban, obesity presenting with diarrhea and abd pain, found to have sigmoid thickening suspicious for diverticulitis though no LLQ tenderness admitted for MARIA R/hyperkalemia MARIA R -FENa 4.4% though BUN/Cr suggests prerenal and SCr improving with IV fluids. improving, check today hyperK (mild today 5.0) - Initially Resolved after holding losartan + spironolactone and giving 2 doses of Lokelma. Hold losartan + spironolactone as above hypothermia--Bear hauger as needed > 96 Dysphagia--gi recommend Barium swallow with pill on 07/30, esophageal dysmotility, corkscrew esophagus, egd on , hold eliquis diarrhea no further episodes constiapation, bowel regimen possible diverticulitis - 07/24- ceftriaxone + metronidazole. Should have outpt GI follow-up for colonoscopy [followed by [facility] [place] [facility]], treat for 7 days, ending 07/30 asymptomatic bacteruria - on ceftriaxone for diverticulitis as above, not UTI CHRONIC ISSUES pAF: continue carvedilol, apixaban HLD: continue statin HTN: continue amlodipine, carvedilol; hold losartan + spironolactone chronic HFpEF: hold furosemide + losartan + spironolactone DM2: iona-dose lispro VTE ppx - apixaban/hold add compression boot dispo - anticipate home with VNA per PT eval In my clinical judgment, the patient requires continued inpatient hospitalization for the following reasons: monitor of temp without warming blankets, awaiting tolerance of diet, monitoring renal function Total time managing care of this patient today: 40 minutes. Quality Stroke Does the patient have a stroke diagnosis?: No VTE Prior VTE?: No VTE Risk Level:: Medical - moderate - high VTE Device Contraindication: Treatment Not Indicated VTE Drug Contraindication: N/A - Med Ordered
[2024-07-31 15:21] VITALS: BP 147/68; PULSE 63; RESP 16; TEMP 36.2; O2SAT 96
[2024-07-31 15:27] LABS: Glucose, Whole Blood 115 mg/dL (60-115)
[2024-07-31] MEDS: cefTRIAXone sodium 1 GM VIAL IVPUSH (18:16)
[2024-07-31 20:42] LABS: Glucose, Whole Blood 124 mg/dL (60-115)
[2024-07-31] MEDS: amLODIPine Besylate 10 MG TABLET PO (21:59)
[2024-07-31] MEDS: Mirtazapine 15 MG TABLET PO (21:59)
[2024-07-31 22:00] VITALS: BP 125/60; PULSE 63; RESP 18; TEMP 36.2; O2SAT 94
[2024-08-01 04:04] VITALS: BP 124/59; PULSE 56; RESP 18; TEMP 36.2; O2SAT 96
[2024-08-01] MEDS: metroNIDAZOLE 500 MG TABLET PO ×3 (05:56→21:28)
[2024-08-01 06:11] LABS: Anion Gap 9 (12-20); Blood Urea Nitrogen 17 mg/dL (9-16); Calcium 9.2 mg/dL (8.4-10.2); Carbon Dioxide 24 mmol/L (22-29); Chloride 116 mmol/L (96-108); Creatinine Clr Calc Pharmacy 38.8; Estimated Glomerular Filt Rate 47; Glucose Random 92 mg/dL (60-115); Potassium 5.2 mmol/L (3.3-5.1); Sodium 144 mmol/L (135-145)
[2024-08-01 07:41] VITALS: BP 145/69; PULSE 64; RESP 16; TEMP 36.2; O2SAT 96
[2024-08-01 07:51] LABS: Glucose, Whole Blood 79 mg/dL (60-115)
[2024-08-01] MEDS: Atorvastatin Calcium 40 MG TABLET PO (08:56)
[2024-08-01] MEDS: Omeprazole 40 MG CAPSULE.DR PO ×2 (08:56→17:31)
[2024-08-01] MEDS: Calcium Oyster Shell Elemental 500 MG TABLET PO (08:56)
[2024-08-01] MEDS: oxyBUTYnin chloride ER 5 MG TAB.ER.24 10 MG PO (08:56)
[2024-08-01] MEDS: Loratadine 10 MG TABLET PO (08:56)
[2024-08-01] MEDS: Simethicone 80 MG TAB.CHEW 160 MG PO ×3 (08:56→21:29)
[2024-08-01] MEDS: 0.9 % Sodium Chloride Flush 3 ML SYRINGE IVFLUSH ×3 (09:01→21:29)
[2024-08-01] MEDS: Sodium Zirconium Cyclosilicate 5 GM POWD.PACK PO (10:41)
[2024-08-01 11:30] VITALS: BP 144/70; PULSE 97; RESP 16; TEMP 36.8; O2SAT 97
[2024-08-01 11:40] LABS: Glucose, Whole Blood 161 mg/dL (60-115)
[2024-08-01] MEDS: Insulin Lispro 100 UNIT/ML 3 ML VIAL SUBCUT (11:51)
--- NOTE | 2024-08-01 13:05 | MHC.CM.PN ---
Per MD rounds patient not medically cleared for dc. CM will continue to follow.
[2024-08-01 15:37] VITALS: BP 145/75; PULSE 76; RESP 18; TEMP 36; O2SAT 98
[2024-08-01 16:20] LABS: Glucose, Whole Blood 98 mg/dL (60-115)
--- NOTE | 2024-08-01 16:25 | HO.PM.IMPN ---
Subjective Subjective Date of Service: 08/01/24 Interval History: maria r Review of Systems denies new c/o no fever or abd pain Physical Exam Vital Signs: Vital Signs: Last Vital Signs Temp 96.8 F 08/01/24 15:37 Pulse 76 08/01/24 15:37 Resp 18 08/01/24 15:37 BP 145/75 H 08/01/24 15:37 Pulse Ox 98 08/01/24 15:37 O2 Del Method Room Air 08/01/24 15:37 BMI result Body Mass Index 36.8 General: AO X 3, no acute distress Resp: CTA bilateral CVS: S1,S2,RRR GI: +BS, NT, no distention Skin: No rash Neuro: motor grossly intact Psych: appropriate affect Objective Data Active Medications Acetaminophen (Acetaminophen 325 Mg Tablet) 650 mg PO Q6H PRN PRN Reason: Pain, Mild 1-3,fever,headache Last Admin: 07/27/24 09:26 Dose: 650 mg Documented By: INEZ Amlodipine Besylate (Amlodipine Besylate 10 Mg Tablet) 10 mg PO BEDTIME [facility]; Protocol Last Admin: 07/31/24 21:59 Dose: 10 mg Documented By: NIKOLAS Apixaban (Apixaban 2.5 Mg Tablet) 2.5 mg PO BID [facility] Last Admin: 07/31/24 07:40 Dose: 2.5 mg Documented By: RACQUEL Atorvastatin Calcium (Atorvastatin Calcium 40 Mg Tablet) 40 mg PO DAILY [facility] Last Admin: 08/01/24 08:56 Dose: 40 mg Documented By: CLINT Calcium Carbonate (Calcium Carbonate 750 Mg Tab.Chew) 750 mg PO Q4H PRN PRN Reason: Heartburn Calcium Carbonate (Calcium Oyster Shell Elemental 500 Mg Tablet) 500 mg PO DAILY [facility] Last Admin: 08/01/24 08:56 Dose: 500 mg Documented By: CLINT Ceftriaxone Sodium (Ceftriaxone Sodium 1 Gm Vial) 1 gm IVPUSH Q24H [facility] Last Admin: 07/31/24 18:16 Dose: 1 gm Documented By: RACQUEL Glucose (Glucose Gel 15 Gm Gel..Gram.) 15 gm PO Q15M PRN; Protocol PRN Reason: per Hypoglycemia Standing Ord. Dextrose (D10) 250 mls @ 750 mls/hr IV Q15M PRN; Protocol PRN Reason: per Hypoglycemia Standing Ord. Insulin Human Lispro (Insulin Lispro 100 Unit/Ml 3 Ml Vial) 0 unit SUBCUT QIDACHS [facility]; Protocol Last Admin: 08/01/24 16:22 Dose: Not Given Documented By: CLINT Non-Admin Reason: No Insulin Coverage Loratadine (Loratadine 10 Mg Tablet) 10 mg PO DAILY [facility] Last Admin: 08/01/24 08:56 Dose: 10 mg Documented By: CLINT Magnesium Hydroxide (Milk Of Magnesia 30 Ml Oral.Susp) 30 ml PO DAILY PRN PRN Reason: Constipation Last Admin: 07/30/24 07:59 Dose: 30 ml Documented By: RIOSCCELESTINE Melatonin (Melatonin 3 Mg Tablet) 6 mg PO BEDTIME PRN PRN Reason: Insomnia Metronidazole (Metronidazole 500 Mg Tablet) 500 mg PO Q8H [facility] Last Admin: 08/01/24 14:32 Dose: 500 mg Documented By: CLINT Mirtazapine (Mirtazapine 15 Mg Tablet) 15 mg PO BEDTIME [facility] Last Admin: 07/31/24 21:59 Dose: 15 mg Documented By: NIKOLAS Omeprazole (Omeprazole 40 Mg Capsule.Dr) 40 mg PO BID@0630,1630 [facility] Last Admin: 08/01/24 08:56 Dose: 40 mg Documented By: CLINT Ondansetron HCl (Ondansetron Hcl 4 Mg/2 Ml Vial) 4 mg IVPUSH Q8H PRN PRN Reason: Nausea and Vomiting Oxybutynin Chloride (Oxybutynin Chloride Er 5 Mg Tab.Er.24) 10 mg PO DAILY [facility] Last Admin: 08/01/24 08:56 Dose: 10 mg Documented By: CLINT Simethicone (Simethicone 80 Mg Tab.Chew) 160 mg PO TID [facility] Last Admin: 08/01/24 14:33 Dose: 160 mg Documented By: CLINT Sodium Chloride (0.9 % Sodium Chloride Flush 3 Ml Syringe) 3 ml IVFLUSH QSHIFT [facility] Last Admin: 08/01/24 09:01 Dose: 3 ml Documented By: CLINT Labs 07/28/24 08:32 08/01/24 05:36 Labs: Laboratory Results - last 24 hr 07/31/24 08/01/24 08/01/24 20:38 05:36 07:46 Hold Purple Top SEE NOTE Anion Gap 9 L Estim Creat Clear Calc 38.8 Estimated GFR 47 POC Glucose 124 H 79 Random Glucose 92 Calcium 9.2 08/01/24 08/01/24 11:36 16:16 Hold Purple Top Anion Gap Estim Creat Clear Calc Estimated GFR POC Glucose 161 H 98 Random Glucose Calcium Assessment and Plan (1) Diverticulitis: Status: Acute Plan 78yo F with chronic idiopathic constipation, JOVANNI, HLD, GERD, asthma, CHF, pAF on apixaban, obesity presenting with diarrhea and abd pain, found to have sigmoid thickening suspicious for diverticulitis though no LLQ tenderness admitted for MARIA R/hyperkalemia MARIA R -FENa 4.4% though BUN/Cr suggests prerenal and SCr improving with IV fluids. improving, check today hyperK (mild elevated today 5.2) - Initially Resolved after holding losartan + spironolactone and giving 2 doses of Lokelma. Hold losartan + spironolactone as above hypothermia--Bear hauger as needed > 96 Dysphagia--gi recommend Barium swallow with pill on 07/30, esophageal dysmotility, corkscrew esophagus, egd on , hold eliquis diarrhea no further episodes constiapation, bowel regimen possible diverticulitis - 07/24- ceftriaxone + metronidazole. Should have outpt GI follow-up for colonoscopy [followed by [facility] [place] [facility]ron[facility]], treat for 7 days, ending 07/30 asymptomatic bacteruria - on ceftriaxone for diverticulitis as above, not UTI CHRONIC ISSUES pAF: continue carvedilol, apixaban HLD: continue statin HTN: continue amlodipine, carvedilol; hold losartan + spironolactone chronic HFpEF: hold furosemide + losartan + spironolactone DM2: iona-dose lispro VTE ppx - apixaban/hold add compression boot dispo - anticipate home with VNA per PT eval In my clinical judgment, the patient requires continued inpatient hospitalization for the following reasons: monitor of temp without warming blankets, awaiting tolerance of diet, monitoring renal function Total time managing care of this patient today: 40 minutes. Quality Stroke Does the patient have a stroke diagnosis?: No VTE Prior VTE?: No VTE Risk Level:: Medical - moderate - high VTE Device Contraindication: Treatment Not Indicated VTE Drug Contraindication: N/A - Med Ordered
[2024-08-01] MEDS: cefTRIAXone sodium 1 GM VIAL IVPUSH (18:25)
[2024-08-01 19:43] VITALS: BP 142/62; PULSE 70; RESP 18; TEMP 36.3; O2SAT 98
[2024-08-01 20:36] LABS: Glucose, Whole Blood 86 mg/dL (60-115)
[2024-08-01] MEDS: Acetaminophen 325 MG TABLET 650 MG PO (21:26)
[2024-08-01 21:28] VITALS: BP 142/62
[2024-08-01] MEDS: amLODIPine Besylate 10 MG TABLET PO (21:28)
[2024-08-01] MEDS: Mirtazapine 15 MG TABLET PO (21:29)
[2024-08-02] VITALS (8 sets, daily range): BP systolic 104–150; BP diastolic 44–68; PULSE 64–79; RESP 16–18; TEMP 36.1–36.7; O2SAT 95–99
[2024-08-02] MEDS: Omeprazole 40 MG CAPSULE.DR PO ×2 (05:40→17:34)
[2024-08-02] MEDS: metroNIDAZOLE 500 MG TABLET PO ×2 (05:40→13:29)
[2024-08-02 07:36] LABS: Glucose, Whole Blood 72 mg/dL (60-115)
[2024-08-02] MEDS: Calcium Oyster Shell Elemental 500 MG TABLET PO (08:17)
[2024-08-02] MEDS: oxyBUTYnin chloride ER 5 MG TAB.ER.24 10 MG PO (08:17)
[2024-08-02] MEDS: Atorvastatin Calcium 40 MG TABLET PO (08:17)
[2024-08-02] MEDS: Simethicone 80 MG TAB.CHEW 160 MG PO ×2 (08:18→15:38)
[2024-08-02] MEDS: Loratadine 10 MG TABLET PO (08:18)
[2024-08-02] MEDS: 0.9 % Sodium Chloride Flush 3 ML SYRINGE IVFLUSH ×2 (08:20→17:35)
[2024-08-02 09:42] LABS: Anion Gap 10 (12-20); Carbon Dioxide 22 mmol/L (22-29); Chloride 115 mmol/L (96-108); Potassium 4.8 mmol/L (3.3-5.1); Sodium 142 mmol/L (135-145)
--- NOTE | 2024-08-02 10:55 | P.PNGI_ITS ---
Subjective Subjective Date of Service: 08/02/24 Interval History: still has choking like sensation difficult swallowing no chest pain breathing is normal mild constipation no abdominal pain Critical Care Time (minutes): 0 Physical Exam 2 Vital Signs: Vital Signs: Last Vital Signs Temp 98.0 F 08/02/24 07:43 Pulse 64 08/02/24 07:43 Resp 17 08/02/24 07:43 BP 131/61 08/02/24 07:43 Pulse Ox 98 08/02/24 07:43 O2 Del Method Room Air 08/02/24 07:43 BMI result Body Mass Index 36.8 EXAM: GENERAL: The patient is well developed and nontoxic. VITAL SIGNS:see workflow HEENT: Nonicteric sclerae, PERRLA, EOMI. Oropharynx clear. Moist mucous membranes. Conjunctivae appear well perfused. No thyroid mass. CHEST: Chest wall is nontender. HEART: Regular rate and rhythm without murmurs. LUNGS: Clear to auscultation bilaterally. ABDOMEN: Soft, positive bowel sounds, nontender, no organomegaly.no flank tenderness SKIN: No rash, no excessive bruising, petechiae, or purpura. NEUROLOGIC: Cranial nerves II-XII intact without motor/sensory deficit. Psych: normal affect Objective Data Labs 07/28/24 08:32 08/02/24 09:24 Labs: Laboratory Results - last 24 hr 08/01/24 08/01/24 08/01/24 11:36 16:16 20:32 Sodium Potassium Chloride Carbon Dioxide Anion Gap POC Glucose 161 H 98 86 08/02/24 08/02/24 07:23 09:24 Sodium 142 Potassium 4.8 Chloride 115 H Carbon Dioxide 22 Anion Gap 10 L POC Glucose 72 Microbiology Microbiology Results: Microbiology 07/24/24 21:08 Blood - Venous Blood Culture - Final No growth after 5 days. 07/24/24 20:54 Blood - Venous Blood Culture - Final No growth after 5 days. 07/24/24 Unknown Urine clean catch - Clean Catch Midstream Urine Culture - Final Escherichia coli Procedures Date of Service Date of Service: 08/02/24 Progress Note: A&P Assessment and plan (1) Dysphagia: Status: Acute Plan 1/ Dysphagia and choking, ddx; esophgeal spasm, stricuture, oral pharyngeal PLAN: 1/ EGD with dilation and bx, if neg and ongoing sx then modified ba swallow Time Spent With Patient Time: Total time managing care of this patient today ____ minutes. Quality Stroke Does the patient have a stroke diagnosis?: No VTE Prior VTE?: No VTE Risk Level:: Medical - moderate - high VTE Device Contraindication: Treatment Not Indicated VTE Drug Contraindication: N/A - Med Ordered
--- NOTE | 2024-08-02 11:02 | MHC.SHP ---
Pre-Procedural Eval Section A - 24 Hr Update-Section A only Date of Service: 08/02/24 The patient is an INPATIENT: Yes The patient has been examined within 24 hours of the surgical procedure. The History & Physical has been completed within 30 days and I have reviewed it.: Yes Section B - Complete if H&P > 30 days Chief Complaint: Abd pain Allergies: Allergies Allergy/AdvReac Type Severity Reaction Status Date / Time Penicillins [PENICILLINS] Allergy Intermediate NAUSEA/HIVE Verified 07/24/24 15:38 S metformin AdvReac Unknown Diarrhea Verified 07/24/24 15:38 Plan Diagnosis/Plan: Unchanged I have reviewed the history and physical and performed a pertinent physical examination on my patient. No changes have occurred unless specified. Time Spent With Patient Time: Total time managing care of this patient today ____ minutes.
[2024-08-02 11:12] LABS: Glucose, Whole Blood 92 mg/dL (60-115)
--- NOTE | 2024-08-02 11:12 | P.CONAN_ITS ---
HPI - Anesthesia Eval Consult details Narrative: 78 yo female patient for EGD with dilatation PMFSH Active Problems Active Problems: All Active Problems Dysphagia (Acute) Diverticulitis (Acute) Diarrhea (Acute) Acute hyperkalemia (Acute) Obesity (BMI 30-39.9) (Chronic) Hyperkalemia (Acute) UTI (urinary tract infection) (Acute) MARIA R (acute kidney injury) (Acute) Abdominal bloating (Acute) Chronic idiopathic constipation (Acute) Epigastric pain (Chronic) JOVANNI (obstructive sleep apnea) (Acute)- no longer using COAP machine. 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) Osteoarthritis of right knee (Acute) Past Medical History Medical History Epigastric pain Tubular adenoma of colon Preop cardiovascular exam Urinary urgency Pneumonia Hospital discharge follow-up Asthma MARIA R (acute kidney injury) GERD (gastroesophageal reflux disease) Diabetes Osteoarthritis Hyperlipidemia Chronic diastolic heart failure Hypertension JOVANNI (obstructive sleep apnea) Family History Family History Father HTN (hypertension) Mother HTN (hypertension) CVD (cardiovascular disease) Daughter Bone cancer Father Cancer Family history of problems with anesthesia: No Surgical History Surgical History Hx of cataract surgery Status post total knee replacement, right History of arthroplasty of right knee Hx of colonoscopy H/O: hysterectomy History of salpingoophorectomy History of tonsillectomy History of Problems with Anesthesia: No Social History Social History Household Members: None Housing: Apartment Are you a primary child care lead teacher to a significant other at home: No Do you presently have visiting nurse or other home services: Yes Unable to assess alcohol history related to: Unknown Alcohol intake: never Comment: Advised to remove Patient Tobacco Use Status: Never used Tobacco Second Hand Smoke Exposure: No service: No Current occupational status: retired Current occupation: Right handed Meds Allergies Allergy/AdvReac Type Severity Reaction Status Date / Time Penicillins [PENICILLINS] Allergy Intermediate NAUSEA/HIVE Verified 07/24/24 15:38 S metformin AdvReac Unknown Diarrhea Verified 07/24/24 15:38 Active Medications: Current Medications Acetaminophen (Acetaminophen 325 Mg Tablet) 650 mg PO Q6H PRN PRN Reason: Pain, Mild 1-3,fever,headache Last Admin: 08/01/24 21:26 Dose: 650 mg Amlodipine Besylate (Amlodipine Besylate 10 Mg Tablet) 10 mg PO BEDTIME [facility]; Protocol Last Admin: 08/01/24 21:28 Dose: 10 mg Apixaban (Apixaban 2.5 Mg Tablet) 2.5 mg PO BID [facility] Last Admin: 07/31/24 07:40 Dose: 2.5 mg Atorvastatin Calcium (Atorvastatin Calcium 40 Mg Tablet) 40 mg PO DAILY [facility] Last Admin: 08/02/24 08:17 Dose: 40 mg Calcium Carbonate (Calcium Carbonate 750 Mg Tab.Chew) 750 mg PO Q4H PRN PRN Reason: Heartburn Calcium Carbonate (Calcium Oyster Shell Elemental 500 Mg Tablet) 500 mg PO DAILY [facility] Last Admin: 08/02/24 08:17 Dose: 500 mg Ceftriaxone Sodium (Ceftriaxone Sodium 1 Gm Vial) 1 gm IVPUSH Q24H [facility] Last Admin: 08/01/24 18:25 Dose: 1 gm Glucose (Glucose Gel 15 Gm Gel..Gram.) 15 gm PO Q15M PRN; Protocol PRN Reason: per Hypoglycemia Standing Ord. Dextrose (D10) 250 mls @ 750 mls/hr IV Q15M PRN; Protocol PRN Reason: per Hypoglycemia Standing Ord. Insulin Human Lispro (Insulin Lispro 100 Unit/Ml 3 Ml Vial) 0 unit SUBCUT QIDACHS [facility]; Protocol Last Admin: 08/02/24 07:44 Dose: Not Given Loratadine (Loratadine 10 Mg Tablet) 10 mg PO DAILY [facility] Last Admin: 08/02/24 08:18 Dose: 10 mg Magnesium Hydroxide (Milk Of Magnesia 30 Ml Oral.Susp) 30 ml PO DAILY PRN PRN Reason: Constipation Last Admin: 07/30/24 07:59 Dose: 30 ml Melatonin (Melatonin 3 Mg Tablet) 6 mg PO BEDTIME PRN PRN Reason: Insomnia Metronidazole (Metronidazole 500 Mg Tablet) 500 mg PO Q8H [facility] Last Admin: 08/02/24 05:40 Dose: 500 mg Mirtazapine (Mirtazapine 15 Mg Tablet) 15 mg PO BEDTIME [facility] Last Admin: 08/01/24 21:29 Dose: 15 mg Omeprazole (Omeprazole 40 Mg Capsule.Dr) 40 mg PO BID@0630,1630 [facility] Last Admin: 08/02/24 05:40 Dose: 40 mg Ondansetron HCl (Ondansetron Hcl 4 Mg/2 Ml Vial) 4 mg IVPUSH Q8H PRN PRN Reason: Nausea and Vomiting Oxybutynin Chloride (Oxybutynin Chloride Er 5 Mg Tab.Er.24) 10 mg PO DAILY [facility] Last Admin: 08/02/24 08:17 Dose: 10 mg Simethicone (Simethicone 80 Mg Tab.Chew) 160 mg PO TID [facility] Last Admin: 08/02/24 08:18 Dose: 160 mg Sodium Chloride (0.9 % Sodium Chloride Flush 3 Ml Syringe) 3 ml IVFLUSH QSHIFT [facility] Last Admin: 08/02/24 08:20 Dose: 3 ml Home Medications ?Medication ?Instructions ?Recorded ?Confirmed ?Last Taken ?Type oxybutynin chloride 5 mg tablet 5 mg PO BID 05/15/20 07/24/24 07/23/24 History calcium carbonate 1 tab PO DAILY 03/24/21 07/24/24 07/23/24 History cholecalciferol (vitamin D3) 25 1 tab PO DAILY 03/24/21 07/24/24 07/23/24 History mcg (1,000 unit) tablet fluticasone propionate 50 1 - 2 spray intranasal DAILY PRN 03/24/21 07/24/24 11/01/22 History mcg/actuation nasal Nasal Congestion spray,suspension cyanocobalamin (vitamin B-12) 1,000 mcg IM Q28D 11/02/22 07/24/24 07/03/24 History 1,000 mcg/mL injection solution cetirizine 10 mg tablet 10 mg PO DAILY 07/17/24 07/24/24 07/23/24 History mirtazapine 15 mg tablet 15 mg PO BEDTIME 07/17/24 07/24/24 07/23/24 History amlodipine 10 mg tablet 10 mg PO BEDTIME 07/24/24 07/24/24 07/23/24 History empagliflozin 10 mg tablet 10 mg PO DAILY 07/24/24 07/24/24 07/23/24 History (Jardiance) linaclotide 145 mcg capsule 145 mcg PO DAILY 07/24/24 07/24/24 07/23/24 History (Linzess) losartan 100 mg tablet 100 mg PO DAILY 07/24/24 07/24/24 07/23/24 History Exam Height,Weight and Vital Signs: Height 5 ft Weight 85.4 kg Last Vital Signs Temp 98 F 08/02/24 10:54 Pulse 78 08/02/24 10:54 Resp 16 08/02/24 10:54 BP 145/57 H 08/02/24 10:54 Pulse Ox 98 08/02/24 10:54 O2 Del Method Room Air 08/02/24 10:54 Pertinent Lab Results Pertinent Lab Results: Laboratory Tests 07/24/24 07/24/24 07/24/24 17:15 19:20 20:59 WBC 6.5 RBC 4.09 L Hgb 11.3 L Hct 34.5 L MCV 84.4 MCH 27.6 MCHC 32.8 RDW 16.1 H Plt Count 210 MPV 10.6 Immature Gran % (Auto) 0.6 H Neut % (Auto) 72.3 Lymph % (Auto) 19.9 L [place] % (Auto) 5.4 Eos % (Auto) 1.5 Baso % (Auto) 0.3 Lymph # (Auto) 1.3 [place] # (Auto) 0.4 Eos # (Auto) 0.1 Baso # (Auto) 0.0 Abs Immat Gran (auto) 0.04 H Absolute Neuts (auto) 4.7 Absolute Nucleated RBC 0.000 Nucleated RBC % (auto) 0.0 Hold Purple Top Sodium 139 Potassium 6.3 H* D Chloride 110 H Carbon Dioxide 25 Anion Gap 10 L BUN 51 H Creatinine 2.29 H Estim Creat Clear Calc 19.0 Estimated GFR 21 POC Glucose 70 Random Glucose 97 Lactic Acid Calcium 9.8 Magnesium 2.4 Total Bilirubin 0.3 AST 30 ALT 30 Alkaline Phosphatase 193 H C-Reactive Protein Total Protein 7.6 Albumin 4.1 Lipase 38 TSH Urine Color Yellow Urine Appearance Clear Urine pH 7.0 Ur Specific [place] <= 1.005 Urine Protein Negative Urine Glucose (UA) 250 H Urine Ketones Negative Urine Blood Negative Urine Nitrite Negative Ur Leukocyte Esterase Moderate (2+) H Urine RBC 3-5 H Urine WBC 11-20 H Ur Squamous Epith Cells 0-2 Urine Bacteria 4+ Hyaline Casts 3-5 Ur Random Sodium Urine Creatinine Influenza Type A (PCR) NEGATIVE Influenza Type B (PCR) NEGATIVE RSV RNA Qual (PCR) NEGATIVE SARS-CoV-2 RNA (RT-PCR) NEGATIVE 07/24/24 07/25/24 07/25/24 21:08 04:30 07:21 WBC 6.4 RBC 3.80 L Hgb 10.3 L Hct 31.9 L MCV 83.9 MCH 27.1 MCHC 32.3 RDW 16.3 H Plt Count 190 MPV 10.6 Immature Gran % (Auto) 0.5 H Neut % (Auto) 61.1 Lymph % (Auto) 25.8 [place] % (Auto) 10.2 Eos % (Auto) 2.2 Baso % (Auto) 0.2 Lymph # (Auto) 1.7 [place] # (Auto) 0.7 Eos # (Auto) 0.1 Baso # (Auto) 0.0 Abs Immat Gran (auto) 0.03 Absolute Neuts (auto) 3.9 Absolute Nucleated RBC 0.000 Nucleated RBC % (auto) 0.0 Hold Purple Top Sodium 138 141 Potassium 5.4 H 5.3 H Chloride 111 H 113 H Carbon Dioxide 23 19 L Anion Gap 9 L 14 BUN 49 H 49 H Creatinine 2.14 H 2.05 H Estim Creat Clear Calc 20.3 21.2 Estimated GFR 22 23 POC Glucose 70 Random Glucose 74 71 Lactic Acid 1.0 Calcium 9.9 9.5 Magnesium Total Bilirubin AST ALT Alkaline Phosphatase C-Reactive Protein 0.76 H Total Protein Albumin Lipase TSH Urine Color Urine Appearance Urine pH Ur Specific [place] Urine Protein Urine Glucose (UA) Urine Ketones Urine Blood Urine Nitrite Ur Leukocyte Esterase Urine RBC Urine WBC Ur Squamous Epith Cells Urine Bacteria Hyaline Casts Ur Random Sodium Urine Creatinine Influenza Type A (PCR) Influenza Type B (PCR) RSV RNA Qual (PCR) SARS-CoV-2 RNA (RT-PCR) 07/25/24 07/25/24 07/25/24 08:42 13:06 16:17 WBC RBC Hgb Hct MCV MCH MCHC RDW Plt Count MPV Immature Gran % (Auto) Neut % (Auto) Lymph % (Auto) [place] % (Auto) Eos % (Auto) Baso % (Auto) Lymph # (Auto) [place] # (Auto) Eos # (Auto) Baso # (Auto) Abs Immat Gran (auto) Absolute Neuts (auto) Absolute Nucleated RBC Nucleated RBC % (auto) Hold Purple Top Sodium Potassium Chloride Carbon Dioxide Anion Gap BUN Creatinine Estim Creat Clear Calc Estimated GFR POC Glucose 81 84 Random Glucose Lactic Acid Calcium Magnesium Total Bilirubin AST ALT Alkaline Phosphatase C-Reactive Protein Total Protein Albumin Lipase TSH Urine Color Urine Appearance Urine pH Ur Specific [place] Urine Protein Urine Glucose (UA) Urine Ketones Urine Blood Urine Nitrite Ur Leukocyte Esterase Urine RBC Urine WBC Ur Squamous Epith Cells Urine Bacteria Hyaline Casts Ur Random Sodium 69.0 Urine Creatinine 25.98 Influenza Type A (PCR) Influenza Type B (PCR) RSV RNA Qual (PCR) SARS-CoV-2 RNA (RT-PCR) 07/25/24 07/26/24 07/26/24 19:29 06:50 07:26 WBC 5.6 RBC 3.79 L Hgb 10.3 L Hct 33.6 L MCV 88.7 MCH 27.2 MCHC 30.7 L RDW 16.9 H Plt Count 192 MPV 11.5 Immature Gran % (Auto) Neut % (Auto) Lymph % (Auto) [place] % (Auto) Eos % (Auto) Baso % (Auto) Lymph # (Auto) [place] # (Auto) Eos # (Auto) Baso # (Auto) Abs Immat Gran (auto) Absolute Neuts (auto) Absolute Nucleated RBC 0.000 Nucleated RBC % (auto) 0.0 Hold Purple Top Sodium 144 Potassium 5.1 Chloride 117 H Carbon Dioxide 19 L Anion Gap 13 BUN 34 H Creatinine 1.85 H Estim Creat Clear Calc 23.5 Estimated GFR 26 POC Glucose 99 77 Random Glucose 78 Lactic Acid Calcium 9.5 Magnesium Total Bilirubin AST ALT Alkaline Phosphatase C-Reactive Protein Total Protein Albumin Lipase TSH 3.54 Urine Color Urine Appearance Urine pH Ur Specific [place] Urine Protein Urine Glucose (UA) Urine Ketones Urine Blood Urine Nitrite Ur Leukocyte Esterase Urine RBC Urine WBC Ur Squamous Epith Cells Urine Bacteria Hyaline Casts Ur Random Sodium Urine Creatinine Influenza Type A (PCR) Influenza Type B (PCR) RSV RNA Qual (PCR) SARS-CoV-2 RNA (RT-PCR) 07/26/24 07/26/24 07/26/24 11:05 15:59 20:42 WBC RBC Hgb Hct MCV MCH MCHC RDW Plt Count MPV Immature Gran % (Auto) Neut % (Auto) Lymph % (Auto) [place] % (Auto) Eos % (Auto) Baso % (Auto) Lymph # (Auto) [place] # (Auto) Eos # (Auto) Baso # (Auto) Abs Immat Gran (auto) Absolute Neuts (auto) Absolute Nucleated RBC Nucleated RBC % (auto) Hold Purple Top Sodium Potassium Chloride Carbon Dioxide Anion Gap BUN Creatinine Estim Creat Clear Calc Estimated GFR POC Glucose 81 82 95 Random Glucose Lactic Acid Calcium Magnesium Total Bilirubin AST ALT Alkaline Phosphatase C-Reactive Protein Total Protein Albumin Lipase TSH Urine Color Urine Appearance Urine pH Ur Specific [place] Urine Protein Urine Glucose (UA) Urine Ketones Urine Blood Urine Nitrite Ur Leukocyte Esterase Urine RBC Urine WBC Ur Squamous Epith Cells Urine Bacteria Hyaline Casts Ur Random Sodium Urine Creatinine Influenza Type A (PCR) Influenza Type B (PCR) RSV RNA Qual (PCR) SARS-CoV-2 RNA (RT-PCR) 07/27/24 07/27/24 07/27/24 07:18 08:38 11:17 WBC RBC Hgb Hct MCV MCH MCHC RDW Plt Count MPV Immature Gran % (Auto) Neut % (Auto) Lymph % (Auto) [place] % (Auto) Eos % (Auto) Baso % (Auto) Lymph # (Auto) [place] # (Auto) Eos # (Auto) Baso # (Auto) Abs Immat Gran (auto) Absolute Neuts (auto) Absolute Nucleated RBC Nucleated RBC % (auto) Hold Purple Top Sodium 143 Potassium 5.2 H Chloride 119 H Carbon Dioxide 19 L Anion Gap 10 L BUN 31 H Creatinine 1.60 H Estim Creat Clear Calc 27.2 Estimated GFR 31 POC Glucose 87 111 Random Glucose 90 Lactic Acid Calcium 9.4 Magnesium Total Bilirubin AST ALT Alkaline Phosphatase C-Reactive Protein Total Protein Albumin Lipase TSH Urine Color Urine Appearance Urine pH Ur Specific [place] Urine Protein Urine Glucose (UA) Urine Ketones Urine Blood Urine Nitrite Ur Leukocyte Esterase Urine RBC Urine WBC Ur Squamous Epith Cells Urine Bacteria Hyaline Casts Ur Random Sodium Urine Creatinine Influenza Type A (PCR) Influenza Type B (PCR) RSV RNA Qual (PCR) SARS-CoV-2 RNA (RT-PCR) 07/27/24 07/27/24 07/28/24 15:12 21:20 08:24 WBC RBC Hgb Hct MCV MCH MCHC RDW Plt Count MPV Immature Gran % (Auto) Neut % (Auto) Lymph % (Auto) [place] % (Auto) Eos % (Auto) Baso % (Auto) Lymph # (Auto) [place] # (Auto) Eos # (Auto) Baso # (Auto) Abs Immat Gran (auto) Absolute Neuts (auto) Absolute Nucleated RBC Nucleated RBC % (auto) Hold Purple Top Sodium Potassium Chloride Carbon Dioxide Anion Gap BUN Creatinine Estim Creat Clear Calc Estimated GFR POC Glucose 161 H 86 83 Random Glucose Lactic Acid Calcium Magnesium Total Bilirubin AST ALT Alkaline Phosphatase C-Reactive Protein Total Protein Albumin Lipase TSH Urine Color Urine Appearance Urine pH Ur Specific [place] Urine Protein Urine Glucose (UA) Urine Ketones Urine Blood Urine Nitrite Ur Leukocyte Esterase Urine RBC Urine WBC Ur Squamous Epith Cells Urine Bacteria Hyaline Casts Ur Random Sodium Urine Creatinine Influenza Type A (PCR) Influenza Type B (PCR) RSV RNA Qual (PCR) SARS-CoV-2 RNA (RT-PCR) 07/28/24 07/28/24 07/28/24 08:32 11:09 16:06 WBC 8.3 RBC 4.00 L Hgb 10.8 L Hct 35.0 L MCV 87.5 MCH 27.0 MCHC 30.9 L RDW 17.1 H Plt Count 194 MPV 10.7 Immature Gran % (Auto) Neut % (Auto) Lymph % (Auto) [place] % (Auto) Eos % (Auto) Baso % (Auto) Lymph # (Auto) [place] # (Auto) Eos # (Auto) Baso # (Auto) Abs Immat Gran (auto) Absolute Neuts (auto) Absolute Nucleated RBC 0.000 Nucleated RBC % (auto) 0.0 Hold Purple Top Sodium 142 Potassium 5.0 Chloride 116 H Carbon Dioxide 21 L Anion Gap 10 L BUN 28 H Creatinine 1.62 H Estim Creat Clear Calc 26.9 Estimated GFR 31 POC Glucose 98 107 Random Glucose 91 Lactic Acid Calcium 9.4 Magnesium Total Bilirubin AST ALT Alkaline Phosphatase C-Reactive Protein Total Protein Albumin Lipase TSH Urine Color Urine Appearance Urine pH Ur Specific [place] Urine Protein Urine Glucose (UA) Urine Ketones Urine Blood Urine Nitrite Ur Leukocyte Esterase Urine RBC Urine WBC Ur Squamous Epith Cells Urine Bacteria Hyaline Casts Ur Random Sodium Urine Creatinine Influenza Type A (PCR) Influenza Type B (PCR) RSV RNA Qual (PCR) SARS-CoV-2 RNA (RT-PCR) 07/28/24 07/29/24 07/29/24 21:14 07:17 10:37 WBC RBC Hgb Hct MCV MCH MCHC RDW Plt Count MPV Immature Gran % (Auto) Neut % (Auto) Lymph % (Auto) [place] % (Auto) Eos % (Auto) Baso % (Auto) Lymph # (Auto) [place] # (Auto) Eos # (Auto) Baso # (Auto) Abs Immat Gran (auto) Absolute Neuts (auto) Absolute Nucleated RBC Nucleated RBC % (auto) Hold Purple Top Sodium 143 Potassium 4.8 Chloride 114 H Carbon Dioxide 23 Anion Gap 11 L BUN 26 H Creatinine 1.57 H Estim Creat Clear Calc 27.7 Estimated GFR 32 POC Glucose 133 H 76 Random Glucose 100 Lactic Acid Calcium 9.3 Magnesium Total Bilirubin AST ALT Alkaline Phosphatase C-Reactive Protein Total Protein Albumin Lipase TSH Urine Color Urine Appearance Urine pH Ur Specific [place] Urine Protein Urine Glucose (UA) Urine Ketones Urine Blood Urine Nitrite Ur Leukocyte Esterase Urine RBC Urine WBC Ur Squamous Epith Cells Urine Bacteria Hyaline Casts Ur Random Sodium Urine Creatinine Influenza Type A (PCR) Influenza Type B (PCR) RSV RNA Qual (PCR) SARS-CoV-2 RNA (RT-PCR) 07/29/24 07/29/24 07/29/24 11:31 15:46 21:09 WBC RBC Hgb Hct MCV MCH MCHC RDW Plt Count MPV Immature Gran % (Auto) Neut % (Auto) Lymph % (Auto) [place] % (Auto) Eos % (Auto) Baso % (Auto) Lymph # (Auto) [place] # (Auto) Eos # (Auto) Baso # (Auto) Abs Immat Gran (auto) Absolute Neuts (auto) Absolute Nucleated RBC Nucleated RBC % (auto) Hold Purple Top Sodium Potassium Chloride Carbon Dioxide Anion Gap BUN Creatinine Estim Creat Clear Calc Estimated GFR POC Glucose 88 96 105 Random Glucose Lactic Acid Calcium Magnesium Total Bilirubin AST ALT Alkaline Phosphatase C-Reactive Protein Total Protein Albumin Lipase TSH Urine Color Urine Appearance Urine pH Ur Specific [place] Urine Protein Urine Glucose (UA) Urine Ketones Urine Blood Urine Nitrite Ur Leukocyte Esterase Urine RBC Urine WBC Ur Squamous Epith Cells Urine Bacteria Hyaline Casts Ur Random Sodium Urine Creatinine Influenza Type A (PCR) Influenza Type B (PCR) RSV RNA Qual (PCR) SARS-CoV-2 RNA (RT-PCR) 07/30/24 07/30/24 07/30/24 06:03 07:45 11:52 WBC RBC Hgb Hct MCV MCH MCHC RDW Plt Count MPV Immature Gran % (Auto) Neut % (Auto) Lymph % (Auto) [place] % (Auto) Eos % (Auto) Baso % (Auto) Lymph # (Auto) [place] # (Auto) Eos # (Auto) Baso # (Auto) Abs Immat Gran (auto) Absolute Neuts (auto) Absolute Nucleated RBC Nucleated RBC % (auto) Hold Purple Top SEE NOTE Sodium 141 Potassium 5.1 Chloride 115 H Carbon Dioxide 22 Anion Gap 9 L BUN 22 H Creatinine 1.37 Estim Creat Clear Calc 31.7 Estimated GFR 37 POC Glucose 73 95 Random Glucose 70 Lactic Acid Calcium 9.1 Magnesium Total Bilirubin AST ALT Alkaline Phosphatase C-Reactive Protein Total Protein Albumin Lipase TSH Urine Color Urine Appearance Urine pH Ur Specific [place] Urine Protein Urine Glucose (UA) Urine Ketones Urine Blood Urine Nitrite Ur Leukocyte Esterase Urine RBC Urine WBC Ur Squamous Epith Cells Urine Bacteria Hyaline Casts Ur Random Sodium Urine Creatinine Influenza Type A (PCR) Influenza Type B (PCR) RSV RNA Qual (PCR) SARS-CoV-2 RNA (RT-PCR) 07/30/24 07/30/24 07/31/24 16:28 20:23 05:33 WBC RBC Hgb Hct MCV MCH MCHC RDW Plt Count MPV Immature Gran % (Auto) Neut % (Auto) Lymph % (Auto) [place] % (Auto) Eos % (Auto) Baso % (Auto) Lymph # (Auto) [place] # (Auto) Eos # (Auto) Baso # (Auto) Abs Immat Gran (auto) Absolute Neuts (auto) Absolute Nucleated RBC Nucleated RBC % (auto) Hold Purple Top SEE NOTE Sodium 142 Potassium 4.8 Chloride 114 H Carbon Dioxide 24 Anion Gap 9 L BUN 18 H Creatinine 1.22 Estim Creat Clear Calc 35.6 Estimated GFR 42 POC Glucose 116 H 111 Random Glucose 75 Lactic Acid Calcium 9.0 Magnesium Total Bilirubin AST ALT Alkaline Phosphatase C-Reactive Protein Total Protein Albumin Lipase TSH Urine Color Urine Appearance Urine pH Ur Specific [place] Urine Protein Urine Glucose (UA) Urine Ketones Urine Blood Urine Nitrite Ur Leukocyte Esterase Urine RBC Urine WBC Ur Squamous Epith Cells Urine Bacteria Hyaline Casts Ur Random Sodium Urine Creatinine Influenza Type A (PCR) Influenza Type B (PCR) RSV RNA Qual (PCR) SARS-CoV-2 RNA (RT-PCR) 07/31/24 07/31/24 07/31/24 07:03 11:14 13:27 WBC RBC Hgb Hct MCV MCH MCHC RDW Plt Count MPV Immature Gran % (Auto) Neut % (Auto) Lymph % (Auto) [place] % (Auto) Eos % (Auto) Baso % (Auto) Lymph # (Auto) [place] # (Auto) Eos # (Auto) Baso # (Auto) Abs Immat Gran (auto) Absolute Neuts (auto) Absolute Nucleated RBC Nucleated RBC % (auto) Hold Purple Top Sodium Potassium Chloride Carbon Dioxide Anion Gap BUN Creatinine Estim Creat Clear Calc Estimated GFR POC Glucose 75 109 137 H Random Glucose Lactic Acid Calcium Magnesium Total Bilirubin AST ALT Alkaline Phosphatase C-Reactive Protein Total Protein Albumin Lipase TSH Urine Color Urine Appearance Urine pH Ur Specific [place] Urine Protein Urine Glucose (UA) Urine Ketones Urine Blood Urine Nitrite Ur Leukocyte Esterase Urine RBC Urine WBC Ur Squamous Epith Cells Urine Bacteria Hyaline Casts Ur Random Sodium Urine Creatinine Influenza Type A (PCR) Influenza Type B (PCR) RSV RNA Qual (PCR) SARS-CoV-2 RNA (RT-PCR) 07/31/24 07/31/24 08/01/24 15:23 20:38 05:36 WBC RBC Hgb Hct MCV MCH MCHC RDW Plt Count MPV Immature Gran % (Auto) Neut % (Auto) Lymph % (Auto) [place] % (Auto) Eos % (Auto) Baso % (Auto) Lymph # (Auto) [place] # (Auto) Eos # (Auto) Baso # (Auto) Abs Immat Gran (auto) Absolute Neuts (auto) Absolute Nucleated RBC Nucleated RBC % (auto) Hold Purple Top SEE NOTE Sodium 144 Potassium 5.2 H Chloride 116 H Carbon Dioxide 24 Anion Gap 9 L BUN 17 H Creatinine 1.12 Estim Creat Clear Calc 38.8 Estimated GFR 47 POC Glucose 115 124 H Random Glucose 92 Lactic Acid Calcium 9.2 Magnesium Total Bilirubin AST ALT Alkaline Phosphatase C-Reactive Protein Total Protein Albumin Lipase TSH Urine Color Urine Appearance Urine pH Ur Specific [place] Urine Protein Urine Glucose (UA) Urine Ketones Urine Blood Urine Nitrite Ur Leukocyte Esterase Urine RBC Urine WBC Ur Squamous Epith Cells Urine Bacteria Hyaline Casts Ur Random Sodium Urine Creatinine Influenza Type A (PCR) Influenza Type B (PCR) RSV RNA Qual (PCR) SARS-CoV-2 RNA (RT-PCR) 08/01/24 08/01/24 08/01/24 07:46 11:36 16:16 WBC RBC Hgb Hct MCV MCH MCHC RDW Plt Count MPV Immature Gran % (Auto) Neut % (Auto) Lymph % (Auto) [place] % (Auto) Eos % (Auto) Baso % (Auto) Lymph # (Auto) [place] # (Auto) Eos # (Auto) Baso # (Auto) Abs Immat Gran (auto) Absolute Neuts (auto) Absolute Nucleated RBC Nucleated RBC % (auto) Hold Purple Top Sodium Potassium Chloride Carbon Dioxide Anion Gap BUN Creatinine Estim Creat Clear Calc Estimated GFR POC Glucose 79 161 H 98 Random Glucose Lactic Acid Calcium Magnesium Total Bilirubin AST ALT Alkaline Phosphatase C-Reactive Protein Total Protein Albumin Lipase TSH Urine Color Urine Appearance Urine pH Ur Specific [place] Urine Protein Urine Glucose (UA) Urine Ketones Urine Blood Urine Nitrite Ur Leukocyte Esterase Urine RBC Urine WBC Ur Squamous Epith Cells Urine Bacteria Hyaline Casts Ur Random Sodium Urine Creatinine Influenza Type A (PCR) Influenza Type B (PCR) RSV RNA Qual (PCR) SARS-CoV-2 RNA (RT-PCR) 08/01/24 08/02/24 08/02/24 20:32 07:23 09:24 WBC RBC Hgb Hct MCV MCH MCHC RDW Plt Count MPV Immature Gran % (Auto) Neut % (Auto) Lymph % (Auto) [place] % (Auto) Eos % (Auto) Baso % (Auto) Lymph # (Auto) [place] # (Auto) Eos # (Auto) Baso # (Auto) Abs Immat Gran (auto) Absolute Neuts (auto) Absolute Nucleated RBC Nucleated RBC % (auto) Hold Purple Top Sodium 142 Potassium 4.8 Chloride 115 H Carbon Dioxide 22 Anion Gap 10 L BUN Creatinine Estim Creat Clear Calc Estimated GFR POC Glucose 86 72 Random Glucose Lactic Acid Calcium Magnesium Total Bilirubin AST ALT Alkaline Phosphatase C-Reactive Protein Total Protein Albumin Lipase TSH Urine Color Urine Appearance Urine pH Ur Specific [place] Urine Protein Urine Glucose (UA) Urine Ketones Urine Blood Urine Nitrite Ur Leukocyte Esterase Urine RBC Urine WBC Ur Squamous Epith Cells Urine Bacteria Hyaline Casts Ur Random Sodium Urine Creatinine Influenza Type A (PCR) Influenza Type B (PCR) RSV RNA Qual (PCR) SARS-CoV-2 RNA (RT-PCR) Airway Mallampati Class: II TM Dist: >3cm Neck ROM: Full Loose/Missing/Broken Teeth: Yes (No teeth. Dentures out) Heart: RRR Lungs: CTAB Assessment and Plan Assessment Anesthesia Assessment: Anesthesia Plan Discussed and Chart Reviewed Final Anesthetic Review Family History of Problems with Anesthesia: No History of Problems with Anesthesia: No NPO: Yes ASA Class: III Final Preanesthetic Review: No Changes in Pt Med Stat, Meds/Allgs Chart Reviewed, Consent Obtained/Reviewed and Anes Risks/Benef Reviewed Patient Risk: Intermediate Procedure Risk: Low Assessment/Block/Sedation in SS: Assess/Block/Sedation-SS Anesthetic Plan Anesthetic Plan: TIVA Disposition: Standard PACU
[2024-08-02] MEDS: Lactated Ringers 1,000 ML 50 ML IVCONT (11:18)
--- NOTE | 2024-08-02 12:13 | W.PM.OPN ---
Operative Note Operative Note Date of Service: 08/02/24 Narrative: Procedure Description: EGD Indication: choking, dysphagia Anesthesia: MAC FLEXIBLE TRANSORAL UPPER GASTROINTESTINAL ENDOSCOPY UPPER ENDOSCOPY Consent: Indications for the procedure and potential complications of bleeding, perforation, reaction to medications and missed diagnosis were discussed with the patient and informed consent was obtained. Instrument: Olympus GIF H 190 J mid size upper endoscope Monitoring: Vital signs and clinical assessment, continuous EKG monitoring, Pulse oximetry, Carbon Dioxide monitoring and blood pressure monitoring were done throughout the procedure. Procedure: The patient was placed in the left lateral decubitis position and pre-procedure medications were administered and a bite block was placed. The endoscope was inserted into the mouth and advanced under direct vision to the third part of duodenum. A careful inspection was made as the upper endoscope was withdrawn including a retroflexed examination of the proximal stomach; Findings and interventions are described below. Findings: Larynx:normal Esophagus: GE junction at 40 cm, diaphragm hiatus at 40 cm, patulous GEJ, mild esophagitis, bx taken from GEJ and dital, proximal esophagus. Balloon dilation done to 20 mm at LES and UES, no tears seen Stomach: patchy erythema . Biopsies were obtained. Grade 2 flap valve on retroflexed examination of the cardia. Duodenum: Normal bulb and descending duodenum, Intervention: Biopsies as noted above, balloon dilation Impression/Findings: gastritis esophagitis patulous GEJ PLAN: trial of high dose PPI for 3 months then titrate down, e.g pantoprazole 40 mg BID GERD precautions if ongoing sx then modified ba swallow
[2024-08-02 14:00] LABS: Glucose, Whole Blood 84 mg/dL (60-115)
--- NOTE | 2024-08-02 14:42 | W.MHC.F2F ---
Service Date Service Date: 08/02/24 Encounter Date of encounter: 08/02/24 Encounter: dyspahgia , meghana/hyperkalemia Reasons for Services Signs and symptoms assessed: any trouble swallowing or new symptoms Reason for alf: medication management, medication treatment and teach disease management Reason for physical therapy: home safety and mobility, therapeutic exercises, restore joint function, gait/transfer training, assess need for DME, ADL training, energy conservation and other MD Overseeing Care: Balta Name Homebound: Leaving the home is medically contraindicated at this time without the asist of a device and/or another person due th the listed conditions above and below. Reason homebound: weakness related to hospital stay Homebound supporting statement: Patient is generalised weak post hospitlisation and need help with going to appointments and labs draws as well as PT. Certification: Based on the above findings, I certify that this patient is confined to the home and needs intermittent alf care, physical therapy and/or speech therapy, or continues to need occupational therapy. The patient is under my care, and I have initiated the establishment of the plan of care. The patient will be followed by a physician who will periodically review the plan of care. Time Spent With Patient Time: Total time managing care of this patient today ____ minutes.
--- NOTE | 2024-08-02 14:44 | PM.DS ---
DS: Providers Provider Date of Service: 08/02/24 Date of admission: 07/24/24 21:44 Date of discharge: 08/02/24 Primary care physician: Balta Jeffrey MD Consults: 07/29/24 10:11 Consult to Gastroenterology Routine Consulting Provider: Ovi Knowles Reason for consultation: Dysphagia Has provider been notified: No Attending physician on discharge: Star Wilkinson Discharging clinician: Star Wilkinson DS: Diagnosis Discharge Diagnosis (1) Dysphagia: Status: Acute DS: Summary Hospital Course Hospital Course: HPI:78-year-old female with a past medical history significant for chronic idiopathic constipation, obstructive sleep apnea, hyperlipidemia, GERD, asthma unspecified, CHF, paroxysmal atrial fibrillation on Eliquis, and obesity, who presented to the ED due to diarrhea and abdominal pain. She reports that she has chronic constipation and was recently started on Linzess by her felt hat mellowing machine operator which started with diarrhea and abdominal cramping today. The cramping is mostly in the upper abdomen which has been chronic. She denies any left lower quadrant pain, fever, chills, nausea, vomiting or hematochezia. She reports that she has had a poor appetite and abdominal bloating since taking Trulicity and Ozempic which she recently stopped. Hospital course: 78yo F with chronic idiopathic constipation, JOVANNI, HLD, GERD, asthma, CHF, pAF on apixaban, obesity: presenting with diarrhea and abd pain, found to have sigmoid thickening suspicious for diverticulitis though no LLQ tenderness-admitted for MARIA R/hyperkalemia,diverticulitis: Patient was started on IV antibiotics for diverticulitis, in addition patient received hydration and losartan/spironolactone placed on hold: Patient MARIA R and hyper kalemia seems to be improved. Her spironolactone stopped, losartan is still on hold until repeat renal function electrolytes outpatient-further use of losartan out patiently with PCP if renal function and electrolytes allows. Asymptomatic bacteriuria, urine culture grew E coli sensitive to ceftriaxone. Patient already completed antibiotic for diverticulitis as above. Dysphagia: Patient was seen by GI-EGD done: Found to have gastritis,esophagitis,patulous GEJ, in addition biopsies and balloon dilation done by GI. Recommended-trial of high dose PPI for 3 months then titrate down, e.g pantoprazole 40 mg BID ,GERD precautions. if continue to have further symptoms-might need outpatient barium swallow. Discussed with the GI: Patient is tolerating clear liquid and diet advanced and patient tolerated the diet also. Patient will be going home with p.o. omeprazole 40 mg b.i.d.. Plan: omeprazole 40mg po bid . moniter bmp in 1 week. further use of losartan outpatient as per pcp after repeating bmp . completed antibiotics for diverticulitis -currently asymptomatic. Above management discussed with the patient detail length with help of technical maintenance specialist, total time spent 40 minute . Time Attestation Total time managing care of this patient today: 40 mintues. Discharge Coordination Time (in mins): 40 min Quality: Safe Use of Opioids Does Pt have an Active Cancer Diagnosis on the Problem List?: No Quality: Stroke Does the patient have a stroke diagnosis?: No Physical Exam Vital Signs: Vital Signs: Last Vital Signs Temp 97.1 F 08/02/24 14:11 Pulse 65 08/02/24 14:11 Resp 18 08/02/24 14:11 BP 139/63 08/02/24 14:11 Pulse Ox 98 08/02/24 14:11 O2 Del Method Room Air 08/02/24 14:11 O2 Flow Rate 3 08/02/24 12:20 BMI result Body Mass Index 36.8 General: AO X 3, no acute distress Resp: CTA bilateral CVS: S1,S2,RRR GI: +BS, NT, no distention Skin: No rash Neuro: motor grossly intact Psych: appropriate affect DS: Data Data Completed and Pending Completed studies during hospitalization [Text1]: Procedures Replacement of Right Knee Joint with Synthetic Substitute, Cemented, Open Approach (05/27/21) Ultrasonography of Right and Left Heart, Transesophageal (11/03/22) Pending studies at discharge: Pending at discharge 08/02/24 12:08 Surgical [PTH] Routine Labs on day of discharge: Laboratory Results - last 24 hr 08/01/24 08/01/24 08/02/24 16:16 20:32 07:23 Sodium Potassium Chloride Carbon Dioxide Anion Gap POC Glucose 98 86 72 08/02/24 08/02/24 08/02/24 09:24 11:03 13:52 Sodium 142 Potassium 4.8 Chloride 115 H Carbon Dioxide 22 Anion Gap 10 L POC Glucose 92 84 Imaging Chest x-ray: Radiologist's impression: ITS Impressions Barium Swallow X-Ray 07/30/24 07:00 IMPRESSION: 1. Trace laryngeal penetration with thick barium. No subglottic aspiration. 2. Patulous esophagus with a corkscrew appearance and severely disorganized peristalsis consistent with severe esophageal dysmotility. 3. Multiple focal areas of contrast pooling in the fundus and body of the stomach that may represent small mucosal ulcerations. Mild thickening of the areae gastricae also noted, findings suggestive of gastritis. Recommend correlation with EGD. This procedure was performed by Gabriel Ribeiro PA-C, and supervised by Dr. Acuna Electronically signed by: Troy Acuna MD 07/31/2024 09:04 AM [facility] Discharge Plan Discharge Anticipated Discharge Date/Time: 08/02/24 14:26 Patient Disposition: Home Health Service Discharge Diagnosis: maria r,hyperkalemia , diverticulitis, dyspahgia Referrals: [facility] [Outside] - 1 Week Center,[facility] [Physician] - 1 Week Discharge Medications: New omeprazole 40 mg capsule,delayed release(DR/EC) 40 mg PO BID Qty: 120 0RF Continued (DME) thelma [facility] See Rx Instructions .ROUTE .MEDSUPPLY Qty: 1 0RF Rx Instructions: Folding front wheeled walker Eliquis 5 mg tablet 5 mg PO BID Qty: 180 3RF atorvastatin 40 mg tablet 40 mg PO DAILY 90 Days Qty: 90 3RF furosemide 40 mg tablet 40 mg PO DAILY 90 Days Qty: 90 3RF Protocol: Hold for SBP< HOLD for SBP < : 90 carvedilol 25 mg tablet 25 mg PO BID Qty: 180 1RF calcium carbonate 600 mg calcium (1,500 mg) tablet 1 tab PO DAILY fluticasone propionate 50 mcg/actuation spray,suspension 1 - 2 spray intranasal DAILY PRN (Reason: Nasal Congestion) cholecalciferol (vitamin D3) 25 mcg (1,000 unit) tablet 1 tab PO DAILY acetaminophen 325 mg Tablet 650 mg PO Q6H PRN (Reason: Pain, Mild (Pain Scale 1-3)) 30 Days Qty: 240 0RF cyanocobalamin (vitamin B-12) 1,000 mcg/mL solution 1,000 mcg IM Q28D amlodipine 10 mg tablet 10 mg PO BEDTIME Linzess 145 mcg capsule 145 mcg PO DAILY Rx Instructions: Take first thing in the morning with a full glass of water. Jardiance 10 mg tablet 10 mg PO DAILY oxybutynin chloride 5 mg tablet 5 mg PO BID mirtazapine 15 mg tablet 15 mg PO BEDTIME cetirizine 10 mg tablet 10 mg PO DAILY simethicone 180 mg capsule 180 mg PO TID 30 Days Qty: 90 3RF Rx Instructions: after meals Held losartan 100 mg tablet 100 mg PO DAILY Hold Instructions: Resume on 08/13/24. Discontinued spironolactone 25 mg tablet 25 mg PO DAILY Qty: 90 3RF Discharge Orders: Discharge Order (Routine); Ordered 08/02/24 Ordered By: Star Wilkinson Diet: Advance to usual diet Activity on Discharge: As tolerated Stand Alone Forms: Patient Portal Discharge page Print Language: Botswanan Care Plan Goals: 78yo F with chronic idiopathic constipation, JOVANNI, HLD, GERD, asthma, CHF, pAF on apixaban, obesity: presenting with diarrhea and abd pain, found to have sigmoid thickening suspicious for diverticulitis though no LLQ tenderness-admitted for MARIA R/hyperkalemia,diverticulitis: Patient was started on IV antibiotics for diverticulitis, in addition patient received hydration and losartan/spironolactone placed on hold: Patient MARIA R and hyper kalemia seems to be improved. Her spironolactone stopped, losartan is still on hold until repeat renal function electrolytes outpatient-further use of losartan out patiently with PCP if renal function and electrolytes allows. Asymptomatic bacteriuria, urine culture grew E coli sensitive to ceftriaxone. Patient already completed antibiotic for diverticulitis as above. Dysphagia: Patient was seen by GI-EGD done: Found to have gastritis,esophagitis,patulous GEJ, in addition biopsies and balloon dilation done by GI. Recommended-trial of high dose PPI for 3 months then titrate down, e.g pantoprazole 40 mg BID ,GERD precautions. if continue to have further symptoms-might need outpatient barium swallow. Health Concerns: omeprazole 40mg po bid . moniter bmp in 1 week. further use of losartan outpatient as per pcp after repeating bmp . completed antibiotics for diverticulitis -currently asymptomatic Plan of Treatment: as above. Assessment: as above.
--- NOTE | 2024-08-02 14:45 | MHC.CM.PN ---
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
[2024-08-02 17:13] LABS: Glucose, Whole Blood 92 mg/dL (60-115)
--- NOTE | 2024-08-02 17:53 | PC.NURSE ---
Pt had EGD today. Diet order changed to regular. Pt had mashed potatoes and chicken noodle soup and tolerated it well. No nausea or abdominal pain.
== END 2024-08-02 18:19 | disposition home health service (06) | DRG 392 ==
LOC: HO.ED 19:09 → HO.EDOVER 21:47 → HO.IMC 07-25 15:21 → HO.S3 07-29 15:33 → HO.IMC 07-29 15:52 → HO.S3 07-30 09:53
PROVIDERS: Anesthesiology; Family Medicine; Internal Medicine; Internal Medicine Gastroenterology; Nurse Practitioner Family; Admitting Provider Student in an Organized Health Care Education/Training Program; Emergency Provider Student in an Organized Health Care Education/Training Program; PCP Internal Medicine Geriatric Medicine; Visit Provider Internal Medicine
PROC: 0DB48ZX Excision of Esophagogastric Junction, Via Natural or Artificial Opening Endoscopic, Diagnostic (ICD-10-PCS; principal; 2024-08-02 14:20)
DX: K57.32 Diverticulitis of large intestine without perforation or abscess without bleeding (principal); I50.32 Chronic diastolic (congestive) heart failure; N17.9 Acute kidney failure, unspecified; G47.33 Obstructive sleep apnea (adult) (pediatric); I48.0 Paroxysmal atrial fibrillation; J44.9 Chronic obstructive pulmonary disease, unspecified; E11.9 Type 2 diabetes mellitus without complications; K29.70 Gastritis, unspecified, without bleeding; K20.90 Esophagitis, unspecified without bleeding; K22.89 Other specified disease of esophagus; E66.9 Obesity, unspecified; R68.0 Hypothermia, not associated with low environmental temperature; T38.3X5A Adverse effect of insulin and oral hypoglycemic [antidiabetic] drugs, initial encounter; E87.5 Hyperkalemia; K59.04 Chronic idiopathic constipation; Z68.36 Body mass index [BMI] 36.0-36.9, adult; Z20.822 Contact with and (suspected) exposure to COVID-19; Z79.01 Long term (current) use of anticoagulants; Z79.899 Other long term (current) drug therapy
CPT/HCPCS: 0241U; 36415; 74176; 74221; 80048; 80051; 80053; 81001; 82570; 82947; 83605; 83690; 83735; 84300; 84443; 85025; 85027; 86140; 87040; 87086; 87088; 87186; 88305; 88313; 88342; 93005; 97116; 97161; 99285; C1726; J0696; J1836; J2003; J2704; J3420; J7120

== ENCOUNTER → 2024-07-24 20:08 | Outpatient (BNV) | payer OTHER, SELFPAY | PROVIDERS: Admitting Provider Student in an Organized Health Care Education/Training Program; Emergency Provider Student in an Organized Health Care Education/Training Program; Visit Provider Internal Medicine Cardiovascular Disease | DX: R94.31 Abnormal electrocardiogram [ECG] [EKG] (principal) | CPT/HCPCS: 93010 ==

== ENCOUNTER → 2024-07-24 20:08 | Outpatient (BNV) | payer OTHER, SELFPAY | PROVIDERS: Admitting Provider Student in an Organized Health Care Education/Training Program; Emergency Provider Student in an Organized Health Care Education/Training Program; Visit Provider Nuclear Medicine | DX: K57.30 Diverticulosis of large intestine without perforation or abscess without bleeding (principal) | CPT/HCPCS: 74176 ==

== ENCOUNTER 2024-07-24 21:44 | Outpatient (BNV) | payer OTHER, SELFPAY | END 2024-07-30 07:00 | PROVIDERS: Admitting Provider Student in an Organized Health Care Education/Training Program; Emergency Provider Student in an Organized Health Care Education/Training Program; PCP Internal Medicine Geriatric Medicine; Visit Provider Physician Assistant Surgical | DX: K22.4 Dyskinesia of esophagus (principal) | CPT/HCPCS: 74246 ==

== ENCOUNTER → 2024-07-24 21:44 | Outpatient (BNV) | payer OTHER, SELFPAY | PROVIDERS: Admitting Provider Student in an Organized Health Care Education/Training Program; Emergency Provider Student in an Organized Health Care Education/Training Program; Visit Provider Internal Medicine Gastroenterology | DX: R13.12 Dysphagia, oropharyngeal phase (principal) | CPT/HCPCS: 99223 ==

== ENCOUNTER → 2024-07-24 21:44 | Outpatient (BNV) | payer OTHER, SELFPAY | PROVIDERS: Admitting Provider Student in an Organized Health Care Education/Training Program; Emergency Provider Student in an Organized Health Care Education/Training Program; Visit Provider Physician Assistant | DX: K57.92 Diverticulitis of intestine, part unspecified, without perforation or abscess without bleeding (principal) | CPT/HCPCS: 99223; 99231; 99232 ==

== ENCOUNTER 2024-08-10 14:08 | Outpatient (REF) | payer OTHER, SELFPAY ==
--- OUTSIDE RECORDS SUMMARY | 2024-08-10 14:10 | XMS_ITS | Encounter Summary ---
Author Organization [employer] Address [address] [facility] [address] [place] [address] Care Team Providers Care Surgery Scheduling Coordinator Name Role Phone Name, Balta MAYER Primary Care Provider [phone] Reason for Visit * Reason Onset Date Comments ER Follow-up 08/06/2024 Encounter Details Date Type Department Care Team ([facility] Contact Info) Description 08/06/2024 Telephone [facility] [address] [place] [address] Name, MD Balta [address] [place] [id number] ER Follow-up Social History Tobacco Use Types Packs/Day Years Used Date Smoking Tobacco: Never Passive Smoke Exposure: Never Smokeless Tobacco: Never Alcohol Use Standard Drinks/Week Comments Never 0 (1 standard drink = 0.6 oz pur e alcohol) Alcohol Answer Date Recorded Frequency of Alcohol Consumption Not on file 02/24/2024 Average Number of Drinks Not on file 024 Frequency of Binge Drinking Not on file 02/08 Score 0 02/24/2024 Depression Answer Date Recorded Patient Health Questionnaire-9 Score 0 09/20/2023 Patient Health Questionnaire-9 Score 0 09/20/2023 Last PHQ-9: Questionnaire Data Not on file 0 09/20/2023 Housing Stability Answer Date Recorded What is your housing situation today? I have billy robbins 09/20/[address] you li ve. Do you have problems with any of the following? None of the above 09/20/2023 Food Insecurity Answer Date Recorded Within the past 12 months, y ou worried that your food would run out before you got money to buy more: Never True 09/20/2023 Within the past 12 months,th e food you bought just didn't last and you didn't have enough money to get more: Never True 06/2024 Transportation Answer Date Recorded In the past 12 months, has l ack of transportation kept you from medical appts, meetings, work or from getting things needed for daily living? No 09/20/2023 Utilities Answer Date Recorded In the past 12 months, has t he electric, gas, oil or water company threatened to shut off services in your home? No 09/20/2023 Depression Answer Date Recorded Patient Health Questionnaire-2 Score 0 09/20/2023 Comments Unknown Sex and Gender Information Value Date Recorded Sex Assigned at Female 05/10/2022 10:17 AM EDT Legal Sex Female 10:17 AM EDT Gender Identity Female 05/10/2022 10:17 AM EDT Sexual Orientation Straight 05/10/2022 10 :17 AM EDT documented as of this encounter Miscellaneous Notes * Telephone Encounter - Alfred Faria - 08/06/2024 9:08 AM EST Tc from pt requesting a HDF appt. Hospital: [facility] Date of admission: 07/24/24 Discharge date: 08/02/24 Diagnosed: Acute Dysphagia *Send message to [place] Clinical Care Coordinators documented in this encounter Plan of Treatment Upcoming Encounters Date Type Department Care Team (Late st Contact Info) Description 08/17/2024 9:30 AM EST Office Visit [facility] [address] [place] [phone] Name, MD Balta [address] [place] [address] 08/31/2024 2:30 PM EST Office Visit [facility] [address] [place] [address] Esther Mcdonald, CLEO [address] [place] [address] 09/19/2024 2:15 PM EDT Office Visit [facility] [address] [place] [phone] Name, MD Balta [address] [place] [address] documented as of this encounter Visit Diagnoses Not on filedocumented in this encounter Additional Health Concerns Assessment Noted Time PHQ-9 Depression Total Score: 0 09/20/19 24 1:15 PM EDT documented as of this encounter Care Teams Surgery Scheduling Coordinator Relationship Specialty Start Date End Date Name, MD Balta [address] [place] [address] PCP - General Internal Medicine 06/14/22 documented as of this encounter
--- OUTSIDE RECORDS SUMMARY | 2024-08-10 14:10 | XMS_ITS | Encounter Summary ---
Author Organization [employer] Address [address] [facility] [address] [place] [address] Care Team Providers Care Rack Puller Name Role Phone Name, Balta MAYER Primary Care Provider [phone] Reason for Visit * Reason Onset Date Comments FYI 07/27/2024 Encounter Details Date Type Department Care Team (Late st Contact Info) Description 07/27/2024 Telephone [facility] [address] [place] [phone] Name, MD Balta [address] [place] [phone] Social History Tobacco Use Types Packs/Day Years [...] encounter Miscellaneous Notes * Telephone Encounter - Cindy Ly RN - 08/03/2024 3:41 PM EST Pt discharged from [facility] 08/02/24 Dx: Dysphagia. T/C to listed number via S Tour Manager #[phone]. Tour Manager states message received indicating call failed x 2. No option to leave voicemail. * Telephone Encounter - Flores Cabrera RN - 07/27/2024 10:17 AM EST Noted. Pt still admitted. Follow up upon discharge. * Telephone Encounter - Christina Mcclelland - 07/27/2024 10:06 AM EST Tc from [place] to report pt are in [facility], was admitted on 07/24 because of concern of diarrhea. documented in this encounter Plan of Treatment Upcoming Encounters Date Type Department Care Team (Late st Contact Info) Description 08/17/2024 9:30 AM EST Office Visit [facility] [address] [place] [address] Name, MD Balta [address] [place] [address] 08/31/2024 2:30 PM EST Office Visit [facility] [address] [place] [address] Harry, Esther, OD [address] [place] [address] 09/19/2024 2:15 PM EDT Office Visit [facility] [address] [place] [address] Name, MD Balta [address] [place] [address] documented as of this encounter Visit Diagnoses Not on filedocumented in this encounter Additional Health Concerns Assessment Noted Time PHQ-9 Depression Total Score: 0 09/20/19 24 1:15 PM EDT documented as of this encounter Care Teams Rack Puller Relationship Specialty Start Date End Date Name, MD Balta [address] [place] [address] PCP - General Internal Medicine 06/14/22 documented as of this encounter
--- OUTSIDE RECORDS SUMMARY | 2024-08-10 14:10 | XMS_ITS | Encounter Summary ---
Author Organization [employer] Address [address] [facility] [address] [place] [address] Care Team Providers Care Facilities Engineering Manager Name Role Phone Name, Balta MAYER Primary Care Provider [phone] Reason for Visit * Reason Comments Transition Of Care (Tcm) HDF- scheduled Encounter Details Date Type Department Care Team (Late st Contact Info) Description 08/06/2024 Patient Outreach [facility] [address] [place] [phone] Name, MD Balta [address] [place] [phone] Transition Of Care (Tcm) (HDF- scheduled ) Social History Tobacco Use Types Packs/Day Years [...] as of this encounter Miscellaneous Notes * Significant Event - Vidya Rodriguez - 08/06/2024 9:41 AM EST 08/06/24 0931 Hospital Discharges and Admission for [facility] Type of Visit Hospital Admission Date of Admission/Visit 07/24/24 Date of Discharge 08/02/24 Facility [facility] Diagnosis Acute Dysphagia Disposition Discharged Home Follow-Up Actions Follow-Up Needed Provider appointment Follow-Up Outcome Spoke to Patient;Booked Appointment Initial Contact Date 08/06/24 halina Corado outbound call to patient for HDF outreach. Patient's name and were confirmed.Patient educated on the importance of follow up with provider following inpatient admission. Patient offered an HDF appt. Patient is agreeable to an appointment and has been scheduled for 08/17/2024 at 9:30 Am with . Insurance verified prior to scheduling. Patient advised to bring to appointment a photo id and insurance card. Patient provided with education on contacting the Health Center with any questions or concerns prior to the scheduled appointment. Patient educated on extended clinic hours on Mondays and Wednesdays, and Walk-In Urgent Care Located in [facility] of [facility]. Patient provided with after-hours line for [facility], , which offer night time triage service and option to transfer to rn interventional provider if needed. CC will request Discharge summary to be scanned into chart. documented in this encounter Plan of Treatment Upcoming Encounters Date Type Department Care Team (Late st Contact Info) Description 08/17/2024 9:30 AM EST Office Visit [facility] [address] [place] [address] NameBalta MD [address] [place] [address] 08/31/2024 2:30 PM EST Office Visit [facility] [address] [place] [address] Harry, Esther, OD [address] [place] [address] 09/19/2024 2:15 PM EDT Office Visit [facility] [address] [place] [address] Name, MD Balta [address] [place] [address] documented as of this encounter Visit Diagnoses Not on filedocumented in this encounter Additional Health Concerns Assessment Noted Time PHQ-9 Depression Total Score: 0 09/20/19 24 1:15 PM EDT documented as of this encounter Care Teams Facilities Engineering Manager Relationship Specialty Start Date End Date Balta Jeffrey MD [address] [place] [phone] PCP - General Internal Medicine 06/14/22 documented as of this encounter
--- OUTSIDE RECORDS SUMMARY | 2024-08-10 14:10 | XMS_ITS | Encounter Summary ---
Author Organization [employer] Address [address] [facility] [address] [place] [address] Care Team Providers Care Planishing Press Operator Name Role Phone Name, Balta MAYER Primary Care Provider [phone] Reason for Visit * Reason Onset Date Comments Durable Medical Equipment 07/20/2024 Encounter Details Date Type Department Care Team (Late st Contact Info) Description 07/20/2024 Telephone [facility] [address] [place] [address] Name, MD Balta [address] [place] [phone] Durable Medical Equipment Social History Tobacco Use Types Packs/Day Years [...] encounter Miscellaneous Notes * Telephone Encounter - Nancy Guillen - 08/03/2024 1:05 PM EST Signed Rx received and scanned into media. DME order generated in [employer]. Order [id number] * Telephone Encounter - Nancy Guillen - 07/31/2024 11:20 AM EST DME RX for Recliner and shower grab bar generated and placed on providers desk for signature. * Telephone Encounter - Nancy Guillen - 07/26/2024 2:12 PM EST Please see message below and advise if agree with DME request. Thank you * Telephone Encounter - Dilcia Pablo - 07/20/2024 10:48 AM EST Tc from pt daughter Rina requesting DME. -recliner -shower handle/bar Fax# [phone] documented in this encounter Plan of Treatment Upcoming Encounters Date Type Department Care Team (Late st Contact Info) Description 08/17/2024 9:30 AM EST Office Visit [facility] [address] [place] [address] NameBalta MD [address] [place] [address] 08/31/2024 2:30 PM EST Office Visit [facility] [address] [place] [address] Harry, Esther, OD [address] [place] [address] 09/19/2024 2:15 PM EDT Office Visit [facility] [address] [place] [address] NameBalta MD [address] [place] [address] documented as of this encounter Visit Diagnoses Not on filedocumented in this encounter Additional Health Concerns Assessment Noted Time PHQ-9 Depression Total Score: 0 09/20/19 24 1:15 PM EDT documented as of this encounter Care Teams Planishing Press Operator Relationship Specialty Start Date End Date NameBalta MD [address] [place] [address] PCP - General Internal Medicine 06/14/22 documented as of this encounter
--- OUTSIDE RECORDS SUMMARY | 2024-08-10 14:10 | XMS_ITS | Encounter Summary ---
Author Organization [employer] Address [address] [facility] 7t [place] [address] Care Team Providers Care Tonnage Compilation Clerk Name Role Phone Name, Balta MAYER Primary Care Provider [phone] Encounter Details Date Type Department Care Team (Late st Contact Info) Description 07/26/2024 Telephone [facility] [address] [place], [place] [phone] Flores Cabrera, RN Social History Tobacco Use Types Packs/Day Years [...] encounter Miscellaneous Notes * Telephone Encounter - Flores Cabrera RN - 07/26/2024 9:31 AM EST TC placed to pt via BLS glycerin supervisor (Thalia ID#[id number]) regarding pt nurse visit today 07/26/24 for B12 injection. Pt currently admitted at [facility] dx hyperkalemia and MARIA R. No answer, LVM to call office back regarding appointment and ask to speak to the blue team nurses. documented in this encounter Plan of Treatment Upcoming Encounters Date Type Department Care Team (Late st Contact Info) Description 08/17/2024 9:30 AM EST Office Visit [facility] [address] [place] [address] Name, MD Balta [address] [place] [address] 08/31/2024 2:30 PM EST Office Visit [facility] [address] [place] [address] Esther Mcdonald, OD [address] [place] [address] 09/19/2024 2:15 PM EDT Office Visit [address] [address] Name, MD Balta [address] [place] [address] documented as of this encounter Visit Diagnoses Not on filedocumented in this encounter Additional Health Concerns Assessment Noted Time PHQ-9 Depression Total Score: 0 09/20/19 24 1:15 PM EDT documented as of this encounter Care Teams Tonnage Compilation Clerk Relationship Specialty Start Date End Date Name, MD Balta 230 [place] [address] PCP - General Internal Medicine 06/14/22 documented as of this encounter
--- OUTSIDE RECORDS SUMMARY | 2024-08-10 14:10 | XMS_ITS | Encounter Summary ---
Author Organization [employer] Address 75 [facility] 7t [place] [address] Care Team Providers Care Chief Data Officer Name Role Phone Name, Balta MAYER Primary Care Provider [phone] Reason for Visit * Reason Comments Med Refill Encounter Details Date Type Department Care Team ([facility] st Contact Info) Description 07/16/2024 Refill [facility] [address] [place] [address] Name, MD Balta [address] [place] [address] Social History Tobacco Use Types Packs/Day Years [...] AM EDT documented as of this encounter Plan of Treatment Upcoming Encounters Date Type Department Care Team (Late st Contact Info) Description 08/17/2024 9:30 AM EST Office Visit [facility] [address] [place] [address] Balta Jeffrey MD [address] [place] [address] 08/31/2024 2:30 PM EST Office Visit [facility] [address] [place] [address] Harry, Esther, OD 230 [place] [address] 09/19/2024 2:15 PM EDT Office Visit [facility] [address] [place] [address] Balta Jeffrey MD [address] [place] [address] documented as of this encounter Visit Diagnoses Not on filedocumented in this encounter Additional Health Concerns Assessment Noted Time PHQ-9 Depression Total Score: 0 09/20/19 24 1:15 PM EDT documented as of this encounter Care Teams Chief Data Officer Relationship Specialty Start Date End Date Balta Jeffrey MD [address] [place] [address] PCP - General Internal Medicine 06/14/22 documented as of this encounter
--- OUTSIDE RECORDS SUMMARY | 2024-08-10 14:10 | XMS_ITS | Encounter Summary ---
Author Organization [employer] Address [address] [facility] [address] 7[address] [place] [address] Care Team Providers Care Parachute Crown Sewer Name Role Phone Name, Balta MAYER Primary Care Provider [phone] Encounter Details Date Type Department Care Team (Late st Contact Info) Description 07/24/2024 Orders Only [facility] External Provider, [facility] Social History Tobacco Use Types Packs/Day Years [...] Description 08/17/2024 9:30 AM EST Office Visit [facility] [address] [place] [address] Name, MD Balta [address] [place] [address] 08/31/2024 2:30 PM EST Office Visit [facility] OPTOM[facility] [address] [place] [address] Harry, Esther, OD 230 [place] [address] 09/19/2024 2:15 PM EDT Office Visit [facility] [address] [place] [address] Name, MD Balta [address] [place] [address] documented as of this encounter Procedures Procedure Name Priority Date/Time Associated Diagnosis Comments FL ESOPHAGUS BARIUM SWALLOW WITH AIR Routine 07/30/2024 7:00 AM EST LACTIC ACID Routine 07/24/2024 9:08 PM EST BASIC METABOLIC PANEL Routine 07/24/2024 9:[address] ABDOMEN PELVIS WO CONTRAST Routine 07/24/2024 9:06 PM EST documented in this encounter Results * FL Esophagus Barium Swallow w/Air (07/30/2024 7:00 AM EST) Anatomical Region Laterality Modality Head, Neck Radiographic Melissa ging 07/30/2024 7:00 AM EST Narrative 07/31/2024 9:06 AM EST ? [facility] ?[address] ?[place] [address] ? Fluoroscopy Report ? Signed ? Patient: Victorina Francois ?MR#: [id number] ?? [id number] ? : 1945 ?Acct:[id number] ? Age/Sex: 78 / F ?ADM Date: 07/24/24 ? Loc: HO.S3 ?387-1 ? Attending Dr: Renan Melton MD ? Ordering Physician: Renan Melton MD ?? Date of Service: 07/30/24 ?? Procedure(s): FL barium swallow with air ?? Accession Number(s): [id number] ? cc: Renan Melton MD; Name,Balta MAYER ? EXAMINATION: ?? XR FLUOROSCOPY UPPER GI WITH AIR ? CLINICAL INFORMATION: ?? Dysphagia. ? COMPARISON: ?? Barium swallow 2016. ? TECHNIQUE: ?? Fluoroscopic air contrast upper GI examination was performed utilizing ?? standard techniques with thin and thick barium and effervescent ?? granules. Numerous spot images were obtained. ? FINDINGS: ?? Lateral cine images of the oropharynx and hypopharynx demonstrate ?? normal swallow mechanism with normal epiglottic inversion and soft ?? palate elevation. There is trace laryngeal penetration with thick ?? barium. No tracheal penetration, glottic or subglottic aspiration ?? identified. No nasopharyngeal reflux present. Hypopharyngeal structures ?? appear normal without evidence of mass or diverticulum. There was no ?? significant cricopharyngeal achalasia. ? Dual and single contrast images of the esophagus demonstrate a patulous ?? esophagus with a corkscrew appearance.No evidence of stricture, mass, ?? or ulcerations identified. There is to and fro motion of the barium ?? column with nonpropulsive tertiary contractions noted throughout the ?? esophagus. ? No evidence of hiatus hernia identified. No significant ?? gastroesophageal reflux was seen during the course of the examination ?? and on reflux views. ? Dual contrast and single contrast images of the stomach demonstrated a ?? normal contour. There are multiple focal areas of contrast pooling in ?? the fundus and body of the stomach that may represent small mucosal ?? ulcerations. Contrast freely passed into the gastric antrum and ?? duodenal bulb without delay. ? Single and air-contrast images of the duodenal bulb demonstrate no ?? abnormality. The duodenal sweep has a normal appearance, course, and ?? mucosal fold appearance. The imaged proximal jejunum has a normal fold ?? pattern and caliber. ? FLUOROSCOPY TIME: ?? 4 minutes 43 seconds ? Number of Spot Images: 6 ?? Number of Cine: 15 ? DOSE AREA PRODUCT: ?? 2459 uGy-m2 (microgray-meter squared) ? FL/FL barium swallow with air ?? IMPRESSION: ?? 1. Trace laryngeal penetration with thick barium. ??No subglottic ?? aspiration. ?? 2. Patulous esophagus with a corkscrew appearance and severely ?? disorganized peristalsis consistent with severe esophageal dysmotility. ?? 3. Multiple focal areas of contrast pooling in the fundus and body of ?? the stomach that may represent small mucosal ulcerations. Mild ?? thickening of the areae gastricae also noted, findings suggestive of ?? gastritis. Recommend correlation with EGD. ? This procedure was performed by Gabriel Ribeiro PA-C, and supervised by ?? Dr. Acuna ? Electronically signed by: ??Troy Acuna MD ??07/31/2024 09:04 AM EST RP ?? Workstation: [id number] ? Dictated By: ?Gabriel Ribeiro ? Signed By: ?<Electronically signed by Gabriel Ribeiro in OV> ? 07/31/24 0904 ?<Electronically signed by Troy Acuna MD in OV> ? 07/31/24 0906 ? DD/ 0700 ? TD/TT: 07/30/24 1110 ? Travel[employer] Missionary: ? Procedure Note Gisselle, Brendan - 07/31/[address] [address] Fluoroscopy Report Signed Patient: Victorina Francois EMR#: [id number] : 4Acct:[id number] Age/Sex: 78 / FADM Date: 07/24/24 Loc: HO.S3 387-[address]: Renan Melton MD Ordering Physician: Renan Melton MD Date of Service: 07/30/24 Procedure(s): FL barium swallow with air Accession Number(s): [id number] cc: Renan Melton MD; Name,Balta MAYER EXAMINATION: XR FLUOROSCOPY UPPER GI WITH AIR CLINICAL INFORMATION: Dysphagia. COMPARISON: Barium swallow 2015. TECHNIQUE: Fluoroscopic air contrast upper GI examination was performed utilizing standard techniques with thin and thick barium and effervescent granules. Numerous spot images were obtained. FINDINGS: Lateral cine images of the oropharynx and hypopharynx demonstrate normal swallow mechanism with normal epiglottic inversion and soft palate elevation. There is trace laryngeal penetration with thick barium. No tracheal penetration, glottic or subglottic aspiration identified. No nasopharyngeal reflux present. Hypopharyngeal structures appear normal without evidence of mass or diverticulum. There was no significant cricopharyngeal achalasia. Dual and single contrast images of the esophagus demonstrate a patulous esophagus with a corkscrew appearance.No evidence of stricture, mass, or ulcerations identified. There is to and fro motion of the barium column with nonpropulsive tertiary contractions noted throughout the esophagus. No evidence of hiatus hernia identified. No significant gastroesophageal reflux was seen during the course of the examination and on reflux views. Dual contrast and single contrast images of the stomach demonstrated a normal contour. There are multiple focal areas of contrast pooling in the fundus and body of the stomach that may represent small mucosal ulcerations. Contrast freely passed into the gastric antrum and duodenal bulb without delay. Single and air-contrast images of the duodenal bulb demonstrate no abnormality. The duodenal sweep has a normal appearance, course, and mucosal fold appearance. The imaged proximal jejunum has a normal fold pattern and caliber. FLUOROSCOPY TIME: 4 minutes 43 seconds Number of Spot Images: 6 Number of Cine: 15 DOSE AREA PRODUCT: 2459 uGy-m2 (microgray-meter squared) FL/FL barium swallow with air IMPRESSION: 1. Trace laryngeal penetration with thick barium. No subglottic aspiration. 2. Patulous esophagus with a corkscrew appearance and severely disorganized peristalsis consistent with severe esophageal dysmotility. 3. Multiple focal areas of contrast pooling in the fundus and body of the stomach that may represent small mucosal ulcerations. Mild thickening of the areae gastricae also noted, findings suggestive of gastritis. Recommend correlation with EGD. This procedure was performed by Gabriel Ribeiro PA-C, and supervised by Dr. Acuna Electronically signed by: Troy Acuna MD 07/31/2024 09:04 AM EST RP Workstation: [id number] Dictated By: Gabriel Ribeiro Signed By: <Electronically signed by Gabriel Ribeiro in OV> 07/31/24 0904 <Electronically signed by Troy Acuna MD in OV> 07/31/24 0906 DD/ 0700 TD/TT: 07/30/24 1110 Traveling Missionary: us [facility] Exter nal Provider IMG FLUOROSCOPY PROCEDURES Edited Result - Final * Lactic Acid (07/24/2024 9:08 PM EST) Lactic Acid 1.0 0.5 - 2.0 mmol/L [facility] 07/24/2024 9:08 PM EST 07/24/2024 9:17 PM EST Generic External Data Provider LAB BLOOD ORDERAB LES Final Result [facility] [address] [place] [phone] * (ABNORMAL) Basic Metabolic Panel (07/24/2024 9:08 PM EST) Sodium 138 135 - 145 mmol/L [facility] Potassium 5.4(H) 3.3 - 5.1 mmol/L [facility] Chloride 111(H) 96 - 108 mmol/L [facility] Carbon Dioxide 23 22 - 29 mmol/L [facility] Anion Gap 9(L) 12 - 20 [facility] Urea Nitrogen (BUN) 49(H) 9 - 16 mg/dL [facility] Creatinine, Serum 2.14(H) 0.5 - 1.4 mg/dL [facility] Creatinine Clr Calc Pharmacy 20.3 [facility] Comment:Provided height and weight: 152.4 cm,85.4 kg.eGFR (calculated from the MDRD study equation) and eCrCl(calculated from the Cockcroft-Gault equation) are based ondifferent parameters and may not yield comparable results.If eCrCl result is absurd, please check patient'sheight/weight. Estimated Glomerular Filt Rate 22 [facility] Comment:Chronic Kidney Disea se: Estimated GFR < 60 mL/min/1.60n4Ldvtyq Kidney Disease: Estimated GFR < 15 mL/min/1.73m2 Glucose 74 60 - 115 mg/dL [facility] Calcium 9.9 8.4 - 10.2 mg/dL [facility] 07/24/2024 9:08 PM EST 07/24/2024 9:17 PM EST us Generic External Data Provider LAB BLOOD ORDERAB LES Final Result Performing Organization Address City/State/[facility] Co de Phone Number [facility] [address] [place] [address] [phone] * CT Abdomen Pelvis w/o Contrast (07/24/2024 9:06 PM EST) Anatomical Region Laterality Modality Body, Pelvis, Abdomen Computed T omography 07/24/2024 9:06 PM EST Narrative 07/24/2024 9:08 PM EST ? [facility] ?[address] [facility]. ?[place] [address] ? CT Scan Report ? Signed ? Patient: Amado Mike,Jayne ?MR#: MM ?? [id number] ? : 1945 ?Acct:[id number] ? Age/Sex: 78 / F ?ADM Date: 01/14/25 ? Loc: HO.ED ? Attending Dr: ? Ordering Physician: Barcome,Vida M. COMMUNITY SERVICES MANAGER ?? Date of Service: 07/24/24 ?? Procedure(s): CT abdomen pelvis wo IV con ?? Accession Number(s): [id number] ? cc: Vida Regalado CNP; [facility] ? Report Number: ?? [id number]: Total DLP = ??680.00 mGy-cm ? CLINICAL HISTORY: diarrhea,vomiting, ABD pain, UTI, MARIA R ? CT abdomen and pelvis without contrast ? Comparison: None ? Findings: Limited examination without contrast. ? Lung bases are clear. No pleural effusion. Small hiatal hernia. ? Liver, Pancreas, Spleen and both adrenals show normal size, shape and ?? attenuation on present unenhanced scan. No CBD dilatation. ? No calcified gallstone in the gallbladder. ? Both kidneys reveal normal in size, shape, position and attenuation. No ?? kidney stone. No hydronephrosis. ? The IVC, aorta and portal vein are within normal position and caliber. ?? Atherosclerosis calcification of the aorta. No evidence of retroperitoneal ?? lymphadenopathy or ascites. ? Colonic diverticulosis with bowel wall thickening of the sigmoid colon. ?? Appendix appears normal. ? Urinary bladder reveals normal lumen and osman. ? Post hysterectomy. Calcifications of the pelvis are likely to be ?? phleboliths. ? Degenerative changes of the lumbar spine. ? IMPRESSION: ?? Colonic diverticulosis with bowel wall thickening of the sigmoid colon. ?? Acute diverticulitis can not be excluded. Correlation with colonoscopy ?? findings as indicated. ?? Additional findings as above. ? This document has been electronically signed by: Donald Karimi MD on ?? 07/24/2024 21:06:26 ? Dictated By: ?Donald Karimi MD ? Signed By: ?<Electronically signed by Donald Karimi MD in OV> ? 07/24/242106 ? DD/ 05 ? TD/TT: 07/24/242105 ? Traveling Missionary: ? Procedure Note Gisselle, Brendan - 07/24/[address] [address] [address] Scan Report Signed Patient: Victorina Francois EMR#: [id number] : 4Acct:[id number] Age/Sex: 78 / FADM Date: 07/24/24 Loc: HO.ED Attending Dr: Ordering Physician: Vida Regalado CNP Date of Service: 07/24/24 Procedure(s): CT abdomen pelvis wo IV con Accession Number(s): [id number] cc: MitchelalfonsoVida M. COMMUNITY SERVICES MANAGER; [facility] Report Number: [id number]: Total DLP = 680.00 mGy-cm CLINICAL HISTORY: diarrhea,vomiting, ABD pain, UTI, MARIA R CT abdomen and pelvis without contrast Comparison: None Findings: Limited examination without contrast. Lung bases are clear. No pleural effusion. Small hiatal hernia. Liver, Pancreas, Spleen and both adrenals show normal size, shape and attenuation on present unenhanced scan. No CBD dilatation. No calcified gallstone in the gallbladder. Both kidneys reveal normal in size, shape, position and attenuation. No kidney stone. No hydronephrosis. The IVC, aorta and portal vein are within normal position and caliber. Atherosclerosis calcification of the aorta. No evidence of retroperitoneal lymphadenopathy or ascites. Colonic diverticulosis with bowel wall thickening of the sigmoid colon. Appendix appears normal. Urinary bladder reveals normal lumen and osman. Post hysterectomy. Calcifications of the pelvis are likely to be phleboliths. Degenerative changes of the lumbar spine. IMPRESSION: Colonic diverticulosis with bowel wall thickening of the sigmoid colon. Acute diverticulitis can not be excluded. Correlation with colonoscopy findings as indicated. Additional findings as above. This document has been electronically signed by: Donald Karimi MD on 07/24/2024 21:06:26 Dictated By: Donald Karimi MD Signed By: <Electronically signed by Donald Karimi MD in OV> 07/24/242106 DD/ 05 TD/TT: 07/24/242105 Traveling Missionary: [facility] External Provider IMG CT PROCEDURES Final Result documented in this encounter Visit Diagnoses Not on filedocumented in this encounter Additional Health Concerns Assessment Noted Time PHQ-9 Depression Total Score: 0 09/20/19 24 1:15 PM EDT documented as of this encounter Care Teams Parachute Crown Sewer Relationship Specialty Start Date End Date Name, MD Balta [address] [place] [address] PCP - General Internal Medicine 06/14/22 documented as of this encounter
--- OUTSIDE RECORDS SUMMARY | 2024-08-10 14:10 | XMS_ITS | Encounter Summary ---
Author Organization [employer] Address [address] [place] [address] Care Team Providers Care Cloud Solutions Architect Name Role Phone Name, Balta MAYER Primary Care Provider [phone] Reason for Visit * Reason Comments Med Refill Encounter Details Date Type Department Care Team (Late st Contact Info) Description 07/29/2024 Refill [facility] MED & PEDS [address] [place], [place] [phone] Name, MD Balta [address] [place] [address] Vitamin D deficiency Social History Tobacco Use Types Packs/Day Years [...] Description 08/17/2024 9:30 AM EST Office Visit [facility] MEDICINE [address] [place] [address] Balta Jeffrey MD [address] [place] [address] 08/31/2024 2:30 PM EST Office Visit [facility] OPTOMETRY [address] [place] [address] Harry, Esther, OD [address] [place] [address] 09/19/2024 2:15 PM EDT Office Visit [facility] MEDICINE [address] [place] [address] Balta Jeffrey MD [address] [place] [address] documented as of this encounter Visit Diagnoses Diagnosis Vitamin D deficiency documented in this encounter Additional Health Concerns Assessment Noted Time PHQ-9 Depression Total Score: 0 09/20/19 24 1:15 PM EDT documented as of this encounter Care Teams Cloud Solutions Architect Relationship Specialty Start Date End Date Balta Jeffrey MD [address] [place] [address] PCP - General Internal Medicine 06/14/22 documented as of this encounter
--- OUTSIDE RECORDS SUMMARY | 2024-08-10 14:10 | XMS_ITS | Encounter Summary ---
Author Organization [employer] Address [address] [facility] [address] [place] [address] Care Team Providers Care Reception Interviewer Name Role Phone Name, Balta MAYER Primary Care Provider [phone] Encounter Details Date Type Department Care Team (Late st Contact Info) Description 07/20/2024 Community Care Management [facility] [address] [place], [place] [phone] [employer] Link, Physician, Social History Tobacco Use Types Packs/Day Years [...] Description 08/17/2024 9:30 AM EST Office Visit [facility] MED[facility]INE [address] [place] [address] NameBalta MD [address] [place] [address] 08/31/2024 2:30 PM EST Office Visit [facility] OPTOMETRY [address] [place] [address] Harry, Esther, OD [address] [place] [address] 09/19/2024 2:15 PM EDT Office Visit [facility] MED[facility]INE [address] [place] [address] NameBalta MD [address] [place] [address] documented as of this encounter Visit Diagnoses Not on filedocumented in this encounter Additional Health Concerns Assessment Noted Time PHQ-9 Depression Total Score: 0 09/20/19 24 1:15 PM EDT documented as of this encounter Care Teams Reception Interviewer Relationship Specialty Start Date End Date Balta Jeffrey MD [address] [place] [address] PCP - General Internal Medicine 06/14/22 documented as of this encounter
--- OUTSIDE RECORDS SUMMARY | 2024-08-10 14:11 | XMS_ITS | Clinical Summary ---
Author Organization [employer] Address [address] [facility] [address] [place] [address] Care Team Providers Care Textile Converter Name Role Phone Name, Balta MAYER Primary Care Provider [phone] Allergies Active Allergy Reactions Criticality Noted Date Comments Penicillin G 06/07/2017 Other reaction(s): itchiness Penicillins Hives High 10/11/2022 Other reaction(s): NAUSEA/HIVES Other Reaction(s): NAUSEA/HIVES Medications atorvastatin (Lipitor) 40 MG tablet Take 1 tablet by mouth at bed time. Active docusate sodium (Colace) 100 MG capsule take 1 Tablet by Oral route 2 times every day - PURCHASING OTC Active furosemide (Lasix) 40 MG tablet Take 1 tablet by mouth in the morning. 022 Active Eliquis 5 MG tablet Take 5 mg by mouth 2 times daily. 023 Active losartan (Cozaar) 100 MG tablet Take 100 mg by mouth in the morning. 023 Active amLODIPine (Norvasc) 10 MG tablet Take 10 mg by mouth at bedtime. 023 Active fluticasone (Flonase) 50 MCG/ACT nasal sprayIndication s:Sinus congestion INSTILL 1-2 SPRAYS IN EACH NOSTRIL ONCE DAILY NEEDED 48 g 023 Active carvedilol (Coreg) 25 MG tablet TAKE 1 TABLET BY MOUTH TWICE DAILY IN THE MORNING AND IN THE EVENING 023 Active mirtazapine (Remeron) 15 MG tablet Take 15 mg by mouth at bedtime. 023 Active lactulose (Chronulac) 10 GM/15ML solution Take 15 mL (10 g) by mouth in the morning. 475 mL 11 03/12/2 024 2024 Active cholecalciferol (Vitamin D-3) 25 MCG tablet TAKE 1 TABLET BY MOUTH EVERY MORNING 90 tablet 3 Active oxybutynin (Ditropan) 5 MG tabletIndicatio ns:Urge incontinence TAKE 1 TABLET BY MOUTH TWICE DAILY IN THE MORNING AND AT BEDTIME NEEDED 180 tablet 3 Active Alcohol Swabs (Alcohol Prep) 70 % pads USE TWICE DAILY 100 each Active TRUEplus Lancets 33G miscIndications :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) ([facility]) TEST BLOOD SUGAR TWICE DAILY DIRECTED 100 each Active FREESTYLE LITE test stripIndication s: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) ([facility]) TEST BLOOD SUGAR TWICE DAILY DIRECTED 100 strip Active Jardiance 10 MG Take 10 mg by mouth in the morning. Active spironolactone (Aldactone) 25 MG tablet Take 25 mg by mouth Once per day. Active dulaglutide (Trulicity) 1.5 MG/0.5ML solution pen-injectorInd ications: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) ([facility]) Inject 1.5 mg under the skin 1 (one) time per week. 4 each Active ferrous gluconate (Fergon) 324 (38 Fe) MG tablet TAKE 1 TABLET BY MOUTH EVERY MORNING 90 tablet 1 Active cetirizine (ZyrTEC) 10 MG tablet TAKE 1 TABLET BY MOUTH EVERY MORNING 30 tablet 5 Active cyanocobalamin (Vitamin B-12) 1000 MCG/ML injection INJECT 1 ML INTRAMUSCULARLY EVERY MONTH DIRECTED 1 mL 025 Active calcium carbonate 1500 (600 Ca) MG tabletIndicatio ns:Vitamin D deficiency TAKE 1 TABLET BY MOUTH EVERY MORNING 90 tablet 3 025 Active calcium carbonate 1500 (600 Ca) MG tabletIndicatio ns:Vitamin D deficiency TAKE 1 TABLET BY MOUTH EVERY MORNING 90 tablet 3 024 2024 Discontinued cyanocobalamin (Vitamin B-12) 1000 MCG/ML injection INJECT 1 ML INTRAMUSCULARLY EVERY MONTH DIRECTED 1 mL 3 024 2024 Discontinued Hospital, Clinic, or Other Facility Administered Medication Ordered Dose Route Frequency Start Date End Date Status cyanocobalamin (Vitamin B-12) injection 1,000 mcgIndications:Pernicious anemia 1000 mcg IM Every 30 days 06/29/2022 Active cyanocobalamin (Vitamin B-12) injection 1,000 mcgIndications:Cobalamin deficiency 1000 mcg IM Every 30 days 09/01/2022 Active cyanocobalamin (Vitamin B-12) injection 1,000 mcgIndications:Cobalamin deficiency 1000 mcg IM Every 30 days 08/31/2023 Active Active Problems Problem Noted Date Diagnosed Date Choking 01/05/2024 Cough 01/05/2024 Hospital discharge follow-up 01/05/2024 Lymphedema 03/29/2023 Urinary incontinence 03/29/2023 Urinary urgency 03/29/2023 Atrial fibrillation 11/17/2022 Status post total knee replacement, right 2022 Varicose veins of right lower extremity with inf lammation 11/17/2022 Type 2 diabetes mellitus with obesity ([facility]) 08/31/2022 Lentiginosis 10/13/2018 Obstructive sleep apnea syndrome 10/02/2018 Chronic diastolic heart failure 05/25/2018 Overview (09/21/2023): [address] [address] CARDIOLOGY NAME: SAMMIE FRANCOIS ASSURANCE ASSOCIATE: [facility] UNIT #: [id number] PATIENT LOCATION: EKG REFERRING PHYSICIAN: ANIYA BERNARD MD DATE OF : 41 PCP: ANIYA BERNARD MD SEX: Female DATE: 04/20/18 CARD ECHO 2D M MODE W DOPPLER COLOR [phone] SYMPTOMS,HX?: I10 ESSENTIAL HTN; R60.0 LOCALIZED EDEMA Transthoracic Echocardiogram Patient (Last, First, Middle): SAMMIE FRANCOIS E Gender: Female Date of : 1945 Age: 72 Procedure Date: 04/20/2018 Procedure Type: Transthoracic Echocardiogram Location: OP Height: 157.48 cm Weight: 81.65 kg BSA: 1.83 m2 Heart Rate: bpm BP: 144 / 78 mmHg Manager Nicu: Referring MD: ANIYA BERNARD MD Symptoms: I10 ESSENTIAL HTN; R60.0 LOCALIZED EDEMA Study Quality: Good ECG Rhythm: Sinus Conclusions: - The left ventricular systolic function is normal. The visually estimated ejection fraction is between 60-65%. - Evidence suggests grade I (mild) diastolic dysfunction. - No obvious valvular pathology seen on this study. Findings Left Ventricle Normal left ventricular cavity size. There is normal left ventricular wall thickness. The left ventricular systolic function is normal. The visually estimated ejection fraction is between 60-65%. There is no evidence of regional wall motion abnormalities. E/E prime ratio is between 8 and 15 consistent with indeterminate filling pressures. Evidence suggests grade I (mild) diastolic dysfunction. Right Ventricle Normal right ventricular cavity size and systolic function. Atria The left atrium is mildly dilated. The right atrium is normal in size. Aortic Valve There is a normal trileaflet aortic valve. There is mild calcification of the aortic valve. There is no aortic valve stenosis. There is trace (trivial) aortic valve regurgitation. Mitral Valve The mitral valve appears normal. There is trace mitral valve regurgitation. There is no mitral valve stenosis. Pulmonic Valve The pulmonic valve was not well visualized. There is trace pulmonic valve regurgitation. Tricuspid Valve Normal tricuspid valve structure. There is trace tricuspid valve regurgitation. The pulmonary artery systolic pressure is normal. Great Vessels The aortic annulus, sinuses of valsalva, asc aorta, and aortic arch are normal in size. Venous The inferior vena cava is normal in size and collapses greater than 50% with inspiration. Pericardium/Pleural There is no evidence of pericardial effusion. Prior Study Comparison No significant change compared to prior study dated: 10/21/2004. Recommendations, Care T Conclusions No obvious valvular pathology seen on this study. Measurements 2D Linear Measurements LA Diam: 3.70 2.7-3.8/3.0-4.0 cm 2D Volumes LA ESV A/L: 38.42 22-52/18-58 ML/M2 Mitral Valve E'Lateral: 0.07 E'Medial: 0.07 Diastolic Function E'Medial: 0.07 E' Laterial: 0.07 Updated in Other Vendor System with Status of Final Jani Iyer MD electronically signed on 04/21/2018 10:45:54 AM with status of Final JANI IYER MD Report #: [id number] Status: Signed Dict: 04/20/18/ Trans: /SUBRAH DATE PRINTED: //date// TIME PRINTED: //time// COPY TO: //ivnm// //add1// //add2// //add3// Tubular adenoma of colon 05/25/2018 Primary osteoarthritis of both knees 04/21/2018 Hyperlipidemia 04/10/2018 Pernicious anemia 07/20/2017 Chronic constipation 07/18/2017 Hypertension 07/18/2017 Cobalamin deficiency 06/16/2017 Vitamin D deficiency 06/16/2017 Resolved Problems Problem Noted Date Diagnosed Date Resolved Date CHF exacerbation 03/29/2023 03/29/2023 Osteoarthritis of right knee 03/29/2023 09/21/2023 Pneumonia 03/29/2023 09/21/2023 Preop cardiovascular exam 03/29/2023 Urge incontinence of urine 08/21/2018 0 09/21/2023 Knee pain 07/18/2017 09/21/2023 Tinea pedis 07/18/2017 09/21/2023 Encounters Date Type Department Care Team Description 08/06/2024 Patient Outreach [facility] [address] [place] [phone] Balta Jeffrey MD Transition Of Care (Tcm) (HDF- scheduled ) 08/06/2024 Telephone [facility] [address] [place] [address] Balta Jeffrey MD ER Follow-up 07/29/2024 Refill [facility] [address] [facility] [place] [address] Balta Jeffrey MD Vitamin D deficiency 07/27/2024 Telephone [facility] [address] [place] [address] Balta Jeffrey MD FYI 07/26/[address] [address] Flores Cabrera, RN 07/24/2024 Orders Only [facility] External Provider, [facility] 07/20/2024 Telephone [facility] [address] [place] [address] Balta Jeffrey MD Durable Medical Equipment 07/20/2024 Community Care Management [address] [address] [employer] Physician Eric MD 07/16/[address] [address] Balta Jeffrey MD 06/25/2024 10:30 AM EST Clinical Support [address] [address] Flores Cabrera, RN Cobalamin deficiency 06/25/2024 Travel 05/24/2024 1:00 PM EST Clinical Support [address] [address] Cindy Ly, JERROD Cobalamin deficiency 05/24/2024 Travel 05/22/[address] [address] Kanwal Taylor [place] Durable Medical Equipment 05/22/[address] [address] Kanwal Taylor [place] Durable Medical Equipment 05/17/[address] [address] Kanwal Taylor [place] Durable Medical Equipment 05/16/2024 Travel from Last 3 Months Immunizations Name Administration Dates Next Due Influenza High-dose Quadriva lent Preservative Free 03/29/2023 Influenza injectable quadriv alent IIV4 with preservative 07/18/2017 Influenza injectable quadriv alent preservative free 04/18/2019 Influenza, High Dose Seasona l, Preservative Free 04/10/2018,05/12/2016,05/28/2015 Moderna Covid-19 Vaccine 12+ 08/13/2021,09/20/19 21,08/22/2020 Pneumococcal Conjugate PCV 13 08/21/2018 Pneumococcal Polysaccharide PPSV23 08/30/2019, Tdap 08/30/2019 Zoster, live 07/18/2017 Social History Tobacco Use Types Packs/Day Years Used Date Smoking Tobacco: Never Passive Smoke Exposure: Never Smokeless Tobacco: Never Tobacco Cessation:Counseling Given: Not Answered Alcohol Use Standard Drinks/Week Comments Never 0 [...] Orientation Straight 05/10/2022 10 :17 AM EDT Last Filed Vital Signs Vital Sign Reading Time Taken Comments Blood Pressure 140/68 02/24/2024 11:14 AM EDT Pulse 62 02/24/2024 11:14 AM EDT Temperature 36.9 ??C (98.4 ??F) 01/16/2024 11:05 AM E DT Respiratory Rate 20 02/24/2024 11:14 AM EDT Oxygen Saturation 96% 02/24/2024 11:14 AM EDT Inhaled Oxygen Concentration - - Weight 84.6 kg (186 lb 9.6 oz) 02/24/2024 11:14 AM EDT Height 160 cm (5' 3 ) 02/24/2024 11:14 AM EDT Body Mass Index 33.05 02/24/2024 11:14 AM EDT Plan of Treatment Upcoming Encounters Date Type Department Care Team (Late st Contact Info) Description 08/17/2024 9:30 AM EST Office Visit [facility] [address] [place] [phone] Name, MD Balta [address] [place] [address] 08/31/2024 2:30 PM EST Office Visit [facility] [address] [place] [address] Esther Mcdonald, OD [address] [place] [address] 09/19/2024 2:15 PM EDT Office Visit [facility] [address] [place] [phone] NameBalta MD [address] [place] [phone] Health Maintenance Due Date Last Done Comments Diabetes: Foot Exam 11/11/1955 Eye Exam 11/11/1955 Zoster Vaccines (2 of 3) 09/12/2017 07/18/2017 RSV Patients and Patients Aged 60 years or older (1 - 1-dose 75+ series) 11/11/2018 COVID-19 Vaccine ( season) 2024 08/13/2021, 09/19/2020, 08/22/2020 Influenza Vaccine (#1) 2024 , 04/18/2019, 04/10/2018, Additional history exists Diabetes: Hemoglobin A1C 08/26/2024 024, 06/15/2023, 12/21/2022, Additional history exists Depression Screening 09/19/2024 09/20/2023, 09/20/19 24 SDOH Screening 09/19/2024 09/20/2023 Lipid Panel 12/25/2024 12/26/2023, 09/08, 08/12/2020 Diabetes: Urine Protein Screening 12/26/2024 12/27/2023, 08/12/2020 Alcohol/Substance Use Screening 02/23/2025 02/24/2024 Tobacco Screening 02/23/2025 02/24/2024 DTaP/Tdap/Td Vaccines (2 - Td or Tdap) 08/30/2029 08/30/2019 Pneumococcal Vaccine: 50+ Years Completed 08/30/2019, 08/21/2018, 05/12/2016 HIB Vaccines Aged Out No longer eligi ble based on patient's age to complete this topic HPV Vaccines Aged Out No longer eligi ble based on patient's age to complete this topic Hepatitis A Vaccines Aged Out No long er eligible based on patient's age to complete this topic Hepatitis B Vaccines Aged Out No long er eligible based on patient's age to complete this topic IPV Vaccines Aged Out No longer eligi ble based on patient's age to complete this topic Meningococcal Vaccine Aged Out No odalys casey eligible based on patient's age to complete this topic RSV under 20 months Aged Out No longe r eligible based on patient's age to complete this topic Rotavirus Vaccines Aged Out No longer eligible based on patient's age to complete this topic Procedures Procedure Name Priority Date/Time Associated Diagnosis Comments FL ESOPHAGUS BARIUM SWALLOW WITH AIR Routine 07/30/2024 7:00 AM EST LACTIC ACID Routine 07/24/2024 9:08 PM EST BASIC METABOLIC PANEL Routine 07/24/2024 9:[address] ABDOMEN PELVIS WO CONTRAST Routine 07/24/2024 9:06 PM EST GLUCOSE, WHOLE BLOOD Routine 07/24/2024 8:59 PM EST LIPASE Routine 07/24/2024 7:20 PM EST MAGNESIUM Routine 07/24/2024 7:20 PM EST COMPREHENSIVE METABOLIC PANEL Routine 07/24/2024 7:20 PM EST CBC WITH AUTO DIFFERENTIAL Routine 07/24/2024 7:20 PM EST SARS COV2/INFLUENZA A/B AND RSV RNA QL NAAT Routine 07/24/2024 7:20 PM EST URINALYSIS, COMPLETE, WITH REFLEX TO CULTURE Routine 07/24/2024 5:15 PM EST POCT GLYCATED HEMOGLOBIN, TOTAL Routine 02/24/2024 11:53 AM EDT 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) ALBUMIN, RANDOM URINE W/CREATININE Routine 12/27/2023 9:45 AM EDT Hypertension, unspecified type LIPID PANEL, STANDARD Routine 12/26/2023 1:22 PM EDT Hypertension, unspecified type from Last 3 Months or Most Recently Relevant to Health Maintenance Results * FL Esophagus Barium Swallow w/Air (07/30/2024 7:00 AM EST) Anatomical Region Laterality Modality Head, Neck Radiographic Melissa ging 07/30/2024 7:00 AM EST Narrative 07/31/2024 9:06 AM EST ? [facility] ?[address] ?[place] [address] ? Fluoroscopy Report ? Signed ? Patient: Sammie Francois ?MR#: [id number] ?? [id number] ? : 1945 ?Acct:[id number] ? Age/Sex: 78 / F ?ADM Date: 07/24/24 ? Loc: HO.S3 ?387-1 ? Attending Dr: Renan Melton MD ? Ordering Physician: Renan Melton MD ?? Date of Service: 07/30/24 ?? Procedure(s): FL barium swallow with air ?? Accession Number(s): [id number] ? cc: Renan Melton MD; Name,Batla MAYER ? EXAMINATION: ?? XR FLUOROSCOPY UPPER [...] ??07/31/2024 09:04 AM EST RP ?? [id number] ? Dictated By: ?Gabriel Ribeiro ? Signed By: ?<Electronically signed by Gabriel Ribeiro in OV> ? 07/31/24 0904 ?<Electronically signed by Troy Acuna MD in OV> ? 07/31/24 0906 ? DD/ 0700 ? TD/TT: 07/30/24 1110 ? Play Writer: ? Procedure Note Donneris, Image - 07/31/[address] [address] Fluoroscopy Report Signed Patient: Sammie Francois EMR#: [id number] : 4Acct:[id number] Age/Sex: 78 / FADM Date: 07/24/24 Loc: HO.S3 387-[address]: Renan Melton MD Ordering Physician: Renan Melton MD Date of Service: 07/30/24 Procedure(s): FL barium swallow with air Accession Number(s): [id number] cc: Renan Melton MD; Name,Balta MAYER EXAMINATION: [...] Acuna MD 07/31/2024 09:04 AM EST RP Dictated By: Gabriel Ribeiro Signed By: <Electronically signed by Gabriel Ribeiro in OV> 07/31/24 0904 <Electronically signed by Troy Acuna MD in OV> 07/31/24 0906 DD/ 0700 TD/TT: 07/30/24 1110 Play Writer: [facility] Exter nal Provider IMG FLUOROSCOPY PROCEDURES Edited Result - Final * Lactic Acid (07/24/2024 9:08 PM EST) Lactic Acid 1.0 0.5 - 2.0 mmol/L [facility] 07/24/2024 9:08 PM EST 07/24/2024 9:17 PM EST Generic External Data Provider LAB BLOOD ORDERAB LES Final Result [facility] [address] [place] [phone] * (ABNORMAL) Basic Metabolic Panel (07/24/2024 9:08 PM EST) Sodium 138 135 - 145 mmol/L [facility] Potassium 5.4(H) 3.3 - 5.1 mmol/L [facility] Chloride 111(H) 96 - 108 mmol/L [facility] Carbon Dioxide 23 22 - 29 mmol/L [facility] Anion Gap 9(L) 12 - 20 [facility] Urea Nitrogen (BUN) 49(H) 9 - 16 mg/dL [facility] Creatinine, Serum 2.14(H) 0.5 - 1.4 mg/dL [facility] Creatinine Clr Calc Pharmacy 20.3 [facility] Comment:Provided height and weight: 152.4 cm,85.4 kg.eGFR (calculated from the MDRD study equation) and eCrCl(calculated from the Cockcroft-Gault equation) are based ondifferent parameters and may not yield comparable results.If eCrCl result is absurd, please check patient'sheight/weight. Estimated Glomerular Filt Rate 22 [facility] Comment:Chronic Kidney Disea se: Estimated GFR < 60 mL/min/1.70p5Kqbrgf Kidney Disease: Estimated GFR < 15 mL/min/1.73m2 Glucose 74 60 - 115 mg/dL [facility] Calcium 9.9 8.4 - 10.2 mg/dL [facility] 07/24/2024 9:08 PM EST 07/24/2024 9:17 PM EST us Generic External Data Provider LAB BLOOD ORDERAB LES Final Result [facility] [address] [place] [address] [phone] * CT Abdomen Pelvis w/o Contrast (07/24/2024 9:06 PM EST) Anatomical Region Laterality Modality Body, Pelvis, Abdomen Computed T omography 07/24/2024 9:06 PM EST Narrative 07/24/2024 9:08 PM EST ? [facility] ?[address] ?[place] [address] ? CT Scan Report ? Signed ? Patient: Sammie Francois ?MR#: MM ?? [id number] ? : 1945 ?Acct:[id number] ? Age/Sex: 78 / F ?ADM Date: 07/24/25 ? Loc: HO.ED ? Attending Dr: ? Ordering Physician: Vida Regalado MANAGER IMPLEMENTATION ?? Date of Service: 07/24/24 ?? Procedure(s): CT abdomen pelvis wo IV con ?? Accession Number(s): [id number] ? cc: Vida Regalado MANAGER IMPLEMENTATION; [facility] ? Report Number: ?? [id number]: Total DLP = ??680.00 mGy-cm ? CLINICAL [...] ? DD/ 05 ? TD/TT: 07/24/242105 ? Play Writer: ? Procedure Note Gisselle, Brendan - 07/24/[address] [address] [address] Scan Report Signed Patient: Sammie Francois EMR#: [id number] : 4Acct:[id number] Age/Sex: 78 / FADM Date: 07/24/24 Loc: HO.ED Attending Dr: Ordering Physician: Vida Regalado CNP Date of Service: 07/24/24 Procedure(s): CT abdomen pelvis wo IV con Accession Number(s): [id number] cc: Vida Regalado CNP; [facility] Report Number: [id number]: Total DLP = 680.00 mGy-cm CLINICAL HISTORY: [...] in OV> 07/24/242106 DD/ 05 TD/TT: 07/24/242105 Play Writer: us [facility] External Provider IMG CT PROCEDURES Final Result * Glucose, Whole Blood (07/24/2024 8:59 PM EST) Glucose, Whole Blood 70 60 - 115 mg/dL [facility] Comment:METER #: [id number] 07/24/2024 8:59 PM EST 07/24/2024 9:02 PM EST Generic External Data Provider LAB BLOOD ORDERAB LES Final Result [facility] [address] [place] [phone] * SARS-CoV-2 RNA, Influenza A/B, and RSV RNA, Ql NAAT (07/24/2024 7:20 PM EST) Pathologist [facility] Influenza A PCR NEGATIVE Negative [facility] Influenza B PCR NEGATIVE Negative [facility] Resp Syncy Virus RNA Qual PCR NEGATIVE Negative [facility] SARS COV2 PCR NEGATIVE Negative [facility] Comment:All test results mus t be correlated with clinical findings.Negative results do not preclude SARS-CoV2, influenza Avirus, influenza B virus and/or RSV infectionand should not be used as the sole basis for treatment orother patient management decisions. Negative results must becombined with clinical observations, patient history, andepidemiological information.This test has not been evaluated for monitoring treatment ofinfection.This test has been authorized by the FDA under an EmergencyUse Authorization (EUA) for use by authorized laboratories.Testing performed on the [employer] GeneXpert utilizingreal-time RT-PCR.All SARS CoV2 and positive influenza A/B results arereported to [facility]. 07/24/2024 7:20 PM EST 07/24/2024 7:22 PM EST us Generic External Data Provider LAB MICROBIOLOGY - GENERAL ORDERABLES Final Result [facility] [address] [place] [phone] * (ABNORMAL) CBC auto differential (07/24/2024 7:20 PM EST) Pathologist [facility] White Blood Count 6.5 4.8 - 10.8 X10*3/uL [facility] Red Blood Count 4.09(L) 4.20 - 5.50 X10*6/uL [facility] Hemoglobin 11.3(L) 12.0 - 16.0 g/dl [facility] Hematocrit 34.5(L) 37.0 - 47.0 % [facility] Mean Corpuscular Volume 84.4 80.0 - 98.0 fL [facility] Mean Corpuscular Hemoglobin 27.6 27.0 - 33.0 pg [facility] Mean Corpuscular HGB Conc 32.8 31.0 - 35.0 g/dl [facility] Red Cell Distribution Width 16.1(H) 11.0 - 16.0 % [facility] Platelet Count 210 160 - 400 X10*3/uL [facility] Mean Platelet Volume 10.6 9.4 - 12.3 fL [facility] Neutrophils Percent Auto 72.3 45 - 73 % [facility] Imm Gran Pct Auto 0.6(H) 0.0 - 0.4 % [facility] Lymphocytes Percent Auto 19.9(L) 20 - 40 % [facility] Monocytes Percent Auto 5.4 2 - 11 % [facility] Eosinophils Percent Auto 1.5 0 - 4 % [facility] Basophils Percent Auto 0.3 0 - 2 % [facility] NRBC Pct Auto 0.0 0.0 - 0.2 /100WBC [facility] Neutrophils Absolute Auto 4.7 2.0 - 8.3 x10*3/uL [facility] Imm Gran Abs Auto 0.04(H) 0.00 - 0.03 X10*3/uL [facility] Lymphocytes Absolute Auto 1.3 1.2 - 4.9 X10*3/uL [facility] Monocytes Absolute Auto 0.4 0.1 - 1.2 X10*3/uL [facility] Eosinophils Absolute Auto 0.1 0.0 - 0.4 X10*3/uL [facility] Basophils Absolute Auto 0.0 0.0 - 0.2 X10*3/uL [facility] NRBC Abs Auto 0.000 0.0 - 0.012 X10*3/uL [facility] 07/24/2024 7:20 PM EST 07/24/2024 7:22 PM EST us Generic External Data Provider LAB BLOOD ORDERAB LES Final Result [facility] [address] [place] [phone] * Magnesium (07/24/2024 7:20 PM EST) Pathologist [facility] Magnesium 2.4 1.6 - 2.6 mg/dL [facility] 07/24/2024 7:20 PM EST 07/24/2024 7:22 PM EST Generic External Data Provider LAB BLOOD ORDERAB LES Final Result Performing Organization Address [facility]/ZIP Co de Phone Number [facility] [address] [place] [phone] * Lipase (07/24/2024 7:20 PM EST) Pathologist [facility] Lipase 38 8 - 78 U/L [facility] 07/24/2024 7:20 PM EST 07/24/2024 7:22 PM EST Generic External Data Provider LAB BLOOD ORDERAB LES Final Result Performing Organization Address [facility] de Phone Number [facility] [address] [place] [phone] * (ABNORMAL) Comprehensive Metabolic Panel (07/24/2024 7:20 PM EST) Pathologist [facility] Sodium 139 135 - 145 mmol/L [facility] Potassium 6.3(HH) 3.3 - 5.1 mmol/L [facility] Comment:Critical value for t est(s): POTS Results called to and readback by: ALONZO Person calling:YASSINE Date: 07/24/24 Time:1952 Chloride 110(H) 96 - 108 mmol/L [facility] Carbon Dioxide 25 22 - 29 mmol/L [facility] Anion Gap 10(L) 12 - 20 [facility] Urea Nitrogen (BUN) 51(H) 9 - 16 mg/dL [facility] Creatinine, Serum 2.29(H) 0.5 - 1.4 mg/dL [facility] Creatinine Clr Calc Pharmacy 19.0 [facility] Comment:Provided height and weight: 152.4 cm,85.4 kg.eGFR (calculated from the MDRD study equation) and eCrCl(calculated from the Cockcroft-Gault equation) are based ondifferent parameters and may not yield comparable results.If eCrCl result is absurd, please check patient'sheight/weight. Estimated Glomerular Filt Rate 21 [facility] Comment:Chronic Kidney Disea se: Estimated GFR < 60 mL/min/[id number] Kidney Disease: Estimated GFR < 15 mL/min/1.73m2 Glucose 97 60 - 115 mg/dL [facility] Calcium 9.8 8.4 - 10.2 mg/dL [facility] Bilirubin, Total 0.3 0.0 - 1.0 mg/dL [facility] Aspartate Amino Transferase 30 5 - 31 U/L [facility] Alanine Aminotransferase 30 0 - 31 U/L [facility] Total Protein 7.6 6.5 - 8.0 g/dL [facility] Albumin Level 4.1 3.5 - 5.0 g/dL [facility] Alkaline Phosphatase 193(H) 39 - 117 U/L [facility] 07/24/2024 7:20 PM EST 07/24/2024 7:22 PM EST us Generic External Data Provider LAB BLOOD ORDERAB LES Final Result [facility] [address] [place] [phone] * (ABNORMAL) Urinalysis, Complete, with Reflex to Culture (07/24/2024 5:15 PM EST) Color Urine Yellow [facility] Appearance Urine Clear [facility] PH 7.0 5.0 - 9.0 [facility] Glucose Urine UA 250(A) Negative mg/dL [facility] Urine Blood Negative Negative [facility] Specific [place] - Urine <=1.005 1.005 - 1.025 [facility] Urine Protein Negative Neg-Trace mg/dL [facility] Urine Ketones Negative Negative mg/dL [facility] Nitrite Urine Negative Negative [facility] Leukocyte Esterase Urine Moderate (2+)(A) Negative [facility] RBC Urine 3-5(A) 0 - 2 /HPF [facility] Urine WBC 11-20(A) 0 - 5 /HPF [facility] Urine Squamous Epithelial Cell 0-2 0 - 2 /HPF [facility] Urine Bacteria 4+ None Seen [facility] Hyaline Casts, Urine 3-5 0 - 2 /LPF [facility] 07/24/2024 5:15 PM EST 07/24/2024 5:19 PM EST Narrative [facility] - 07/24/2024 5:50 PM EST Urine, Clean Catch us Generic External Data Provider LAB URINE ORDERAB LES Final Result Performing Organization Address City/State/[facility] Co de Phone Number [facility] [address] [place] [phone] * POCT HGB A1C (02/24/2024 11:53 AM EDT) Hemoglobin A1C 5.7 4.0 - 6.0 % Blood 02/24/2024 11:5 3 AM EDT us Balta Name POINT OF CARE TEST ENTER/EDIT OR DERABLES Final Result * Albumin, Random Urine W/Creatinine (12/27/2023 9:45 AM EDT) Creatinine, Urine 90.13 mg/dL [facility] Microalbumin Urine 11.0 mg/L [facility] Microalbum Creatinine Ratio Ur 12.2 <30 ug/mg cr [facility] Comment:Albumin/Creatinine R atio Reference Ranges: Normal: < 30 ug/mg creatinine Microalbuminuria: 30 - 300 ug/mg creatinineClinical Albuminuria: > 300 ug/mg creatinine Urine (Urine, Random) 12/27/2023 9:45 AM EDT 12/27/2023 11:23 AM EDT us Balta Jeffrey MD LAB URINE ORDERABLES Final Resul t Performing Organization Address [facility] Co de Phone Number [facility] [address] [place] [phone] * Lipid Panel, Standard (12/26/2023 1:22 PM EDT) Triglycerides 52 <150 mg/dL [facility] Comment:Desirable Triglyceri de: less than 150 mg/dLBorderline High Triglyceride 150-199 mg/dLHigh Triglyceride: 200-499 mg/dLVery High Triglyceride: greater than or equal to 5OO mg/dL Cholesterol 169 <200 mg/dL [facility] Comment:Desirable Cholestero l: less than 200 mg/dLBorderline High Cholesterol: 200-239 mg/dLHigh Cholesterol: greater than 239 mg/dL LDL Cholesterol Calculated 92 <100 mg/dL [facility] Comment:Desirable LDL: less than 100 mg/dLNear Optimal/Above Optimal LDL: 110- 129 mg/dLBorderline High LDL: 130-159 mg/dLHigh LDL: 160-189 mg/dLVery High LDL: greater than or equal to 190 mg/dL HDL Cholesterol 67 >40 mg/dL [facility] Comment:Desirable HDL: great er than 40 mg/dL Note: This HDL assay may give artificially low results in patients with liver disease. Blood Venous blood specimen / Unknown 12/26/2023 1:22 PM EDT 12/26/2023 3:56 PM EDT us Balta Jeffrey MD LAB BLOOD ORDERABLES Final Resul t Performing Organization Address [facility]/ZIP Co de Phone Number [facility] [address] [place] [address] [phone] from Last 3 Months or Most Recently Relevant to Health Maintenance Insurance [facility] Care Teams Textile Converter Relationship Specialty Start Date End Date Name, MD Balta [address] [place] [phone] PCP - General Internal Medicine 06/14/22
--- OUTSIDE RECORDS SUMMARY | 2024-08-10 14:11 | XMS_ITS | Encounter Summary ---
Author Organization [employer] Address [address] [place] [address] Care Team Providers Care Television Host Name Role Phone Name, Balta MAYER Primary Care Provider [phone] Encounter Details Date Type Department Care Team (Late st Contact Info) Description 04/20/2023 Abstract [facility] [address] [place] [phone] Name, MD Balta [address] [place] [address] Social History Tobacco Use Types Packs/Day Years Used Date Smoking Tobacco: Never Smokeless Tobacco: Never Alcohol Use Standard Drinks/Week Comments Never 0 (1 standard drink = 0.6 oz pur e alcohol) Depression Answer Date Recorded Patient Health Questionnaire-9 Score 4 08/31/2022 Housing Stability Answer Date Recorded What is your housing situation today? I have billylula robbins 04/20/[address] you li ve. Do you have problems with any of the following? None of the above 04/20/2023 Food Insecurity Answer Date Recorded Within the past 12 months, y ou worried that your food would run out before you got money to buy more: Never True 04/20/2023 Within the past 12 months,th e food you bought just didn't last and you didn't have enough money to get more: Never True 05/2023 Transportation Answer Date Recorded In the past 12 months, has l ack of transportation kept you from medical appts, meetings, work or from getting things needed for daily living? No 04/20/2023 Utilities Answer Date Recorded In the past 12 months, has t he electric, gas, oil or water company threatened to shut off services in your home? No 04/20/2023 Depression Answer Date Recorded Patient Health Questionnaire-2 Score 2 08/31/2022 Comments Unknown Sex and Gender Information Value [...] Description 08/17/2024 9:30 AM EST Office Visit [facility] [address] [place] [address] NameBalta MD [address] [place] [address] 08/31/2024 2:30 PM EST Office Visit [facility] [address] [place] [address] Harry, Esther, OD [address] [place] [address] 09/19/2024 2:15 PM EDT Office Visit [facility] [address] [place] [address] NameBalta MD [address] [place] [address] documented as of this encounter Visit Diagnoses Not on filedocumented in this encounter Additional Health Concerns Assessment Noted Time PHQ-9 Depression Total Score: 4 08/31/19 23 10:26 AM EST documented as of this encounter Care Teams Television Host Relationship Specialty Start Date End Date NameBalta MD [address] [place] [phone] PCP - General Internal Medicine 06/14/22 documented as of this encounter
--- OUTSIDE RECORDS SUMMARY | 2024-08-10 14:11 | XMS_ITS | Encounter Summary ---
Author Organization [facility] [facility] Address [address] [place] [address] [address]t [place] [address] Care Team Providers Care Organ Assembler Name Role Phone Balta Jeffrey MD Primary Care Provider Encounter Details Date Type Department Care Team (Late st Contact Info) Description 06/14/2022 Orders Only [facility] [address] [place] [phone] Audrey Mcginnis, JERROD Social History Tobacco Use Types Packs/Day Years Used Date Smoking Tobacco: Never Assessed Comments Unknown Sex and Gender Information Value [...] Description 08/17/2024 9:30 AM EST Office Visit [facility] [address] [place] [phone] Balta Jeffrey MD [address] [place] [address] 08/31/2024 2:30 PM EST Office Visit [facility] [address] [place] [address] Esther Mcdonald OD [address] [place] [address] 09/19/2024 2:15 PM EDT Office Visit [facility] [address] [place] [phone] Balta Jeffrey MD [address] [place] [address] documented as of this encounter Visit Diagnoses Not on filedocumented in this encounter Care Teams Organ Assembler Relationship Specialty Start Date End Date Name, MD Balta [address] [place] [address] PCP - General Internal Medicine 06/14/22 documented as of this encounter
--- OUTSIDE RECORDS SUMMARY | 2024-08-10 14:11 | XMS_ITS | Encounter Summary ---
Author Organization [employer] Address [address] [place] [address] Care Team Providers Care Weapons Designer Name Role Phone Name, Balta MAYER Primary Care Provider [phone] Reason for Visit * Reason Comments Med Refill Encounter Details Date Type Department Care Team (Late st Contact Info) Description 03/05/2024 Refill [facility] [address] [place], [place] [phone] Name, MD Balta [address] [place] [address] Social History Tobacco Use Types Packs/Day Years [...] 9:30 AM EST Office Visit [facility] [address] [place] [phone] Balta Jeffrey MD [address] [place] [address] 08/31/2024 2:30 PM EST Office Visit [facility] [address] [place] [address] Harry, Esther, OD [address] [place] [address] 09/19/2024 2:15 PM EDT Office Visit [facility] [address] [place] [phone] Balta Jeffrey MD [address] [place] [address] documented as of this encounter Visit Diagnoses Not on filedocumented in this encounter Additional Health Concerns Assessment Noted Time PHQ-9 Depression Total Score: 0 09/20/19 24 1:15 PM EDT documented as of this encounter Care Teams Weapons Designer Relationship Specialty Start Date End Date Balta Jeffrey MD [address] [place] [address] [place] [address] PCP - General Internal Medicine 06/14/22 documented as of this encounter
[2024-08-10 15:54] LABS: Anion Gap 13 (12-20); Blood Urea Nitrogen 21 mg/dL (9-16); Calcium 10.4 mg/dL (8.4-10.2); Carbon Dioxide 30 mmol/L (22-29); Chloride 103 mmol/L (96-108); Estimated Glomerular Filt Rate 31; Glucose Random 71 mg/dL (60-115); Potassium 6.8 mmol/L (3.3-5.1); Sodium 139 mmol/L (135-145)
== END 2024-08-10 14:09 | disposition home or self-care (01) ==
LOC: HO.HVNA 14:08
PROVIDERS: Visit Provider Internal Medicine Geriatric Medicine
DX: Z13.89 Encounter for screening for other disorder (principal)
CPT/HCPCS: 36415; 80048

== ENCOUNTER 2024-08-10 17:24 | Inpatient (IN) | payer OTHER, SELFPAY ==
--- NOTE | ~2024-08-10 | US_ITS ---
CLINICAL HISTORY: MARIA R US Renal Comparison: None Findings: Right kidney borderline small in size and normal in echotexture, 8.6 cm length. Left kidney borderline small in size and normal in echotexture, 7.9 cm length. No collecting system dilatation of either kidney. Normal color Doppler. IMPRESSION: No acute process. This document has been electronically signed by: Faraz Hull MD on 08/12/2024 12:35:04
[2024-08-10 17:32] VITALS: BP 115/59; BP 138/72; PULSE 58; PULSE 68; RESP 16; TEMP 36.5; O2SAT 96; O2SAT 97; BMI 35.3
--- NOTE | 2024-08-10 17:36 | ECG_ITS ---
Test Reason : HIGH k Blood Pressure : */* mmHG Vent. Rate : 54 BPM Atrial Rate : 54 BPM P-R Int : 184 ms QRS Dur : 76 ms QT Int : 456 ms P-R-T Axes : -7 -2 -12 degrees QTcB Int : 432 ms Sinus bradycardia Otherwise normal ECG When compared with ECG of 24-Jul-2024 20:34, Nonspecific T wave abnormality has replaced inverted T waves in Anterior leads Referred By: Generic ED Physician Electronically Signed By: REYNOLD IYER
[2024-08-10 17:57] LABS: MANUAL DIFF FLAG NO
[2024-08-10 18:03] LABS: Basophils Percent Auto 0.3 % (0-2); Eosinophils Absolute Auto 0.1 X10*3/uL (0.0-0.4); Eosinophils Percent Auto 2.1 % (0-4); Hematocrit 33.1 % (37.0-47.0); Hemoglobin 10.7 g/dl (12.0-16.0); Imm Gran Abs Auto 0.03 X10*3/uL (0.00-0.03); Imm Gran Pct Auto 0.5 % (0.0-0.4); Lymphocytes Absolute Auto 1.3 X10*3/uL (1.2-4.9); Lymphocytes Percent Auto 21.7 % (20-40); Mean Corpuscular HGB Conc 32.3 g/dl (31.0-35.0); Mean Corpuscular Hemoglobin 27.5 pg (27.0-33.0); Mean Corpuscular Volume 85.1 fL (80.0-98.0); Mean Platelet Volume 10.6 fL (9.4-12.3); Monocytes Absolute Auto 0.5 X10*3/uL (0.1-1.2); Monocytes Percent Auto 8.4 % (2-11); Neutrophils Absolute Auto 3.9 x10*3/uL (2.0-8.3); Platelet Count 247 X10*3/uL (160-400); Red Blood Count 3.89 X10*6/uL (4.20-5.50); Red Cell Distribution Width 17.7 % (11.0-16.0); White Blood Count 5.9 X10*3/uL (4.8-10.8)
[2024-08-10 18:18] LABS: Alanine Aminotransferase 38 U/L (0-31); Albumin Level 3.8 g/dL (3.5-5.0); Anion Gap 15 (12-20); Aspartate Amino Transferase 50 U/L (5-31); Bilirubin Total 0.3 mg/dL (0.0-1.0); Blood Urea Nitrogen 26 mg/dL (9-16); Calcium 9.9 mg/dL (8.4-10.2); Carbon Dioxide 25 mmol/L (22-29); Chloride 105 mmol/L (96-108); Creatinine Clr Calc Pharmacy 24.5; Estimated Glomerular Filt Rate 28; Glucose Random 149 mg/dL (60-115); Potassium 6.3 mmol/L (3.3-5.1); Sodium 139 mmol/L (135-145); Total Protein 7.5 g/dL (6.5-8.0)
--- NOTE | 2024-08-10 18:32 | ED.GENADULT ---
HPI - General Adult General Chief complaint: Recheck/Abnormal Lab/Rx Stated complaint: HYPERKALEMIA Time Seen by Provider: 08/10/24 18:32 History of Present Illness ED Provider: Lyndsay WONG narrative: The patient is an 78-year-old female who was advised to come to the hospital today because outpatient blood work showed a potassium of 6.8. The patient had had a visiting nurse come to her house for the blood draw. The patient was recently hospitalized for an acute kidney injury and hyperkalemia. She was admitted from July 24 through August 02. The patient has been home since discharge. She lives with her daughter. The patient has been feeling fine. She has had no fever, sweats, chills. No chest pain or shortness of breath, no cough or sputum. No abdominal pain, nausea, vomiting. She was asymptomatic today when she had blood drawn by a visiting nurse as part of her follow up care from her recent hospitalization. The patient has been eating and drinking. Related Data Home Medications ?Medication ?Instructions ?Recorded ?Confirmed oxybutynin chloride 5 mg tablet 5 mg PO BID 05/15/20 07/24/24 calcium carbonate 1 tab PO DAILY 03/24/21 07/24/24 cholecalciferol (vitamin D3) 25 1 tab PO DAILY 03/24/21 07/24/24 mcg (1,000 unit) tablet fluticasone propionate 50 1 - 2 spray intranasal DAILY PRN 03/24/21 07/24/24 mcg/actuation nasal Nasal Congestion spray,suspension cyanocobalamin (vitamin B-12) 1,000 mcg IM Q28D 11/02/22 07/24/24 1,000 mcg/mL injection solution cetirizine 10 mg tablet 10 mg PO DAILY 07/17/24 07/24/24 mirtazapine 15 mg tablet 15 mg PO BEDTIME 07/17/24 07/24/24 amlodipine 10 mg tablet 10 mg PO BEDTIME 07/24/24 07/24/24 empagliflozin 10 mg tablet 10 mg PO DAILY 07/24/24 07/24/24 (Jardiance) linaclotide 145 mcg capsule 145 mcg PO DAILY 07/24/24 07/24/24 (Linzess) losartan 100 mg tablet 100 mg PO DAILY 07/24/24 07/24/24 Previous Rx's ?Medication ?Instructions ?Recorded walker #1 ea 03/02/21 acetaminophen 325 mg tablet 650 mg (2 x 325 mg) PO Q6H PRN 05/29/21 Pain, Mild (Pain Scale 1-3) 30 days #240 tabs apixaban 5 mg tablet (Eliquis) 5 mg PO BID #180 tabs 10/04/23 atorvastatin 40 mg tablet 40 mg PO DAILY 90 days #90 tabs 12/28/23 furosemide 40 mg tablet 40 mg PO DAILY 90 days #90 tabs 02/09/24 carvedilol 25 mg tablet 25 mg PO BID #180 tabs 05/29/24 simethicone 180 mg capsule 180 mg PO TID 30 days #90 caps 07/17/24 omeprazole 40 mg capsule,delayed 40 mg PO BID #120 caps 08/02/24 release Allergies Allergy/AdvReac Type Severity Reaction Status Date / Time Penicillins [PENICILLINS] Allergy Intermediate NAUSEA/HIVE Verified 08/10/24 17:34 S metformin AdvReac Unknown Diarrhea Verified 07/24/24 15:38 Review of Systems Review of Systems: Yes all other systems are reviewed and are negative [facility] Past Medical History Medical History Epigastric pain Tubular adenoma of colon Preop cardiovascular exam Urinary urgency Pneumonia Hospital discharge follow-up Asthma MARIA R (acute kidney injury) GERD (gastroesophageal reflux disease) Diabetes Osteoarthritis Hyperlipidemia Chronic diastolic heart failure Hypertension JOVANNI (obstructive sleep apnea) Surgical History Hx of cataract surgery Status post total knee replacement, right History of arthroplasty of right knee Hx of colonoscopy H/O: hysterectomy History of salpingoophorectomy History of tonsillectomy Family History Family History Father HTN (hypertension) Mother HTN (hypertension) CVD (cardiovascular disease) Daughter Bone cancer Father Cancer Social History Social History Household Members: None Housing: Apartment Are you a primary special needs child caregiver to a significant other at home: No Do you presently have visiting nurse or other home services: Yes Unable to assess alcohol history related to: Unknown Alcohol intake: never Comment: Advised to remove Patient Tobacco Use Status: Never used Tobacco Smoked in Last 30 Days: No Second Hand Smoke Exposure: No Use of substances other than those prescribed or required for medical reasons: No Advance Directives: No Advance Directives Information Provided: No Advance Directives on File: No service: No Current occupational status: retired Current occupation: Right handed Physical Exam ED Vital Signs: Vital Signs - 24 hr 08/10/24 17:32 08/10/24 19:34 08/10/24 21:58 Temperature 97.7 F 97.3 F 97.3 F Pulse Rate 58 59 55 Respiratory Rate 16 14 12 Blood Pressure 115/59 L 126/42 L 120/42 L Pulse Oximetry 97 96 96 Oxygen Delivery Method Room Air Room Air Room Air 08/10/24 23:53 Temperature Pulse Rate 55 Respiratory Rate Blood Pressure 142/54 H Pulse Oximetry Oxygen Delivery Method BMI result Body Mass Index 35.3 Const Other: The patient is a somewhat chronically ill-appearing 78-year-old woman who was awake, alert, pleasant, cooperative. She is cheerful and pleasant. She does not seem in any acute distress. HENMT Other: Face is symmetrical. Mucous membranes moist Eyes General: appearance normal, both eyes and all related structures Sclerae: sclerae normal Neck Neck: Yes full ROM and Yes no JVD Resp Effort & Inspection: normal respiratory effort Auscultation: clear to auscultation bilaterally Cardio Rate: regular rate Rhythm: regular rhythm Heart sounds: S1 normal heart sound present and S2 normal heart sound present GI Other: Abdomen is soft and nontender Skin Other: Skin is dry and unremarkable Neuro Other: The patient is awake and alert with a normal mental status. Face is symmetrical. Eye movements intact. Speech is clear. She moves her extremities with symmetrical tone. Extrem Other: No peripheral edema, no calf swelling or tenderness. Medications Administered Generic Name Dose Route Start Last Admin Trade Name Freq PRN Reason Stop Dose Admin Carvedilol 6.25 mg 08/10/24 23:45 08/10/24 23:53 Carvedilol 6.25 Mg Tablet PO Not Given BID [facility] Protocol Discontinued Medications Generic Name Dose Route Start Last Admin Trade Name Freq PRN Reason Stop Dose Admin Sodium Chloride 1,000 mls @ 999 mls/hr 08/10/24 19:30 08/10/24 20:58 Ns IV 08/10/24 20:30 Infused .Q1H1M BENJIE Infusion Sodium Chloride 1,000 mls @ 999 mls/hr 08/10/24 22:00 08/10/24 23:12 Ns IV 08/10/24 23:00 Infused .Q1H1M BENJIE Infusion Sodium Zirconium Cyclosilicate 10 gm 08/10/24 19:25 08/10/24 19:39 Sodium Zirconium Cyclosilicate 10 Gm Powd.Pack PO 08/10/24 19:26 10 gm ONCE ONE Administration Sodium Zirconium Cyclosilicate 10 gm 08/10/24 22:28 08/10/24 22:34 Sodium Zirconium Cyclosilicate 10 Gm Powd.Pack PO 08/10/24 22:29 10 gm ONCE ONE Administration Medical Decision Making Medical Decision Making [facility] Narrative: The patient is an 78-year-old woman who was recently hospitalized for an acute kidney injury with elevated potassium. She was in the hospital for about 10 days. She was discharged from the hospital 1 week ago. She has been on spironolactone that was stopped at the time of discharge. She is on other antihypertensives. The patient had a visiting nurse check on her today and had outpatient lab work as part of her follow up for her recent hospitalization. The patient was asymptomatic. Labs showed an outpatient potassium of 6.8. She was called and advised to come to the emergency room. Here her potassium was 6 point 3. Her renal function is slightly worse than when she was last in the hospital. EKG showed sinus bradycardia without obvious signs of hyperkalemia. She was given 1 L of normal saline and 10 mg of Lokelma. My assumption was that she would have at least some improvement in her hyper kalemia and we repeated her basic metabolic panel after this treatment. Surprisingly her potassium was still 6.3. Creatinine and BUN were minimally better. Given the absence of any improvement with her potassium with some simple treatment the emergency room I think the patient will need to be hospitalized for further care. Lab Data 08/10/24 17:45 08/10/24 22:06 Labs: Lab Results 08/10/24 08/10/24 Range/Units 17:45 22:06 WBC 5.9 (4.8-10.8) X10*3/uL RBC 3.89 L (4.20-5.50) X10*6/uL Hgb 10.7 L (12.0-16.0) g/dl Hct 33.1 L (37.0-47.0) % MCV 85.1 (80.0-98.0) fL MCH 27.5 (27.0-33.0) pg MCHC 32.3 (31.0-35.0) g/dl RDW 17.7 H (11.0-16.0) % Plt Count 247 D (160-400) X10*3/uL MPV 10.6 (9.4-12.3) fL Immature Gran % (Auto) 0.5 H (0.0-0.4) % Neut % (Auto) 67.0 (45-73) % Lymph % (Auto) 21.7 (20-40) % [place] % (Auto) 8.4 (2-11) % Eos % (Auto) 2.1 (0-4) % Baso % (Auto) 0.3 (0-2) % Lymph # (Auto) 1.3 (1.2-4.9) X10*3/uL [place] # (Auto) 0.5 (0.1-1.2) X10*3/uL Eos # (Auto) 0.1 (0.0-0.4) X10*3/uL Baso # (Auto) 0.0 (0.0-0.2) X10*3/uL Abs Immat Gran (auto) 0.03 (0.00-0.03) X10*3/uL Absolute Neuts (auto) 3.9 (2.0-8.3) x10*3/uL Absolute Nucleated RBC 0.000 (0.0-0.012) X10*3/uL Nucleated RBC % (auto) 0.0 (0.0-0.2) /100WBC Sodium 139 140 (135-145) mmol/L Potassium 6.3 H* 6.3 H* (3.3-5.1) mmol/L Chloride 105 109 H (96-108) mmol/L Carbon Dioxide 25 25 (22-29) mmol/L Anion Gap 15 12 (12-20) BUN 26 H 24 H (9-16) mg/dL Creatinine 1.74 H 1.60 H (0.5-1.4) mg/dL Estim Creat Clear Calc 24.5 26.6 Estimated GFR 28 31 Random Glucose 149 H 98 (60-115) mg/dL Calcium 9.9 9.5 (8.4-10.2) mg/dL Magnesium 2.3 (1.6-2.6) mg/dL Total Bilirubin 0.3 (0.0-1.0) mg/dL AST 50 H (5-31) U/L ALT 38 H (0-31) U/L Alkaline Phosphatase 138 H (39-117) U/L Total Protein 7.5 (6.5-8.0) g/dL Albumin 3.8 (3.5-5.0) g/dL Independent Interpretation I performed an independent interpretation of an: EKG Interpretation: EKG shows sinus bradycardia at 58 beats per minute. No other abnormalities seen. Discharge Plan Discharge Clinical Impression: Hyperkalemia, Renal insufficiency Patient Disposition: Admitted As Inpatient Print Language: Danish
[2024-08-10 19:14] LABS: Alkaline Phosphatase 138 U/L (39-117)
[2024-08-10 19:34] VITALS: BP 126/42; PULSE 59; RESP 14; TEMP 36.3; O2SAT 96
[2024-08-10 19:38] LABS: Magnesium 2.3 mg/dL (1.6-2.6)
[2024-08-10] MEDS: Sodium Zirconium Cyclosilicate 10 GM POWD.PACK PO ×2 (19:39→22:34)
[2024-08-10] MEDS: 0.9 % Sodium Chloride 1,000 ML 999 ML IV ×2 (19:39→21:56)
[2024-08-10 21:58] VITALS: BP 120/42; PULSE 55; RESP 12; TEMP 36.3; O2SAT 96
[2024-08-10 22:25] LABS: Anion Gap 12 (12-20); Blood Urea Nitrogen 24 mg/dL (9-16); Calcium 9.5 mg/dL (8.4-10.2); Carbon Dioxide 25 mmol/L (22-29); Chloride 109 mmol/L (96-108); Creatinine Clr Calc Pharmacy 26.6; Estimated Glomerular Filt Rate 31; Glucose Random 98 mg/dL (60-115); Potassium 6.3 mmol/L (3.3-5.1); Sodium 140 mmol/L (135-145)
--- NOTE | 2024-08-10 23:35 | P.HPHOSP_ITS ---
History of Present Illness Date of Service: 08/10/24 Chief Complaint: hyperkalemia 78F PMH chronic idiopathic constipation, obstructive sleep apnea, barrets and eosinophilic esophagitis, hyperlipidemia, unspecified asthma, chronic diastolic CHF, paroxysmal atrial fibrillation, sent in for hyperkalemia. Patient was admitted to [facility] for 07/24/24-08/02/24 for diverticulitis and hyperkalemia with MARIA R. At that time received fluids and antibiotics and her losartan and Aldactone had been discontinued. Patient reports feeling well since discharge, had follow-up labs which revealed hyperkalemia with potassium of 6.8 and acute kidney injury with creatinine of 1.61. EKG with sinus bradycardia 54 otherwise normal. Review of Systems 2 Review of Systems: Yes all other systems are reviewed and are negative [facility] Medical History Epigastric pain Tubular adenoma of colon Preop cardiovascular exam Urinary urgency Pneumonia Hospital discharge follow-up Asthma MARIA R (acute kidney injury) GERD (gastroesophageal reflux disease) Diabetes Osteoarthritis Hyperlipidemia Chronic diastolic heart failure Hypertension JOVANNI (obstructive sleep apnea) Family History Father HTN (hypertension) Mother HTN (hypertension) CVD (cardiovascular disease) Daughter Bone cancer Father Cancer Surgical History Hx of cataract surgery Status post total knee replacement, right History of arthroplasty of right knee Hx of colonoscopy H/O: hysterectomy History of salpingoophorectomy History of tonsillectomy Social History Household Members: None Housing: Apartment Are you a primary career information specialist to a significant other at home: No Do you presently have visiting nurse or other home services: Yes Unable to assess alcohol history related to: Unknown Alcohol intake: never Comment: Advised to remove Patient Tobacco Use Status: Never used Tobacco Smoked in Last 30 Days: No Second Hand Smoke Exposure: No Use of substances other than those prescribed or required for medical reasons: No Advance Directives: No Advance Directives Information Provided: No Advance Directives on File: No service: No Current occupational status: retired Current occupation: Right handed Meds Allergies Allergy/AdvReac Type Severity Reaction Status Date / Time Penicillins [PENICILLINS] Allergy Intermediate NAUSEA/HIVE Verified 08/10/24 17:34 S metformin AdvReac Unknown Diarrhea Verified 07/24/24 15:38 Active Medications: Current Medications Apixaban (Apixaban 2.5 Mg Tablet) 2.5 mg PO BID BENJIE Atorvastatin Calcium (Atorvastatin Calcium 40 Mg Tablet) 40 mg PO BEDTIME [facility]ENJIE Carvedilol (Carvedilol 6.25 Mg Tablet) 6.25 mg PO BID BENJIE; Protocol Furosemide (Furosemide 40 Mg Tablet) 40 mg PO DAILY BENJIE; Protocol Mirtazapine (Mirtazapine 15 Mg Tablet) 15 mg PO BEDTIME [facility] Omeprazole (Omeprazole 40 Mg Capsule.Dr) 40 mg PO BID@0630,1630 [facility], [facility] Home Medications ?Medication ?Instructions ?Recorded ?Confirmed ?Last Taken ?Type oxybutynin chloride 5 mg tablet 5 mg PO BID 05/15/20 07/24/24 07/23/24 History calcium carbonate 1 tab PO DAILY 03/24/21 07/24/24 07/23/24 History cholecalciferol (vitamin D3) 25 1 tab PO DAILY 03/24/21 07/24/24 07/23/24 History mcg (1,000 unit) tablet fluticasone propionate 50 1 - 2 spray intranasal DAILY PRN 03/24/21 07/24/24 11/01/22 History mcg/actuation nasal Nasal Congestion spray,suspension cyanocobalamin (vitamin B-12) 1,000 mcg IM Q28D 11/02/22 07/24/24 07/03/24 History 1,000 mcg/mL injection solution cetirizine 10 mg tablet 10 mg PO DAILY 07/17/24 07/24/24 07/23/24 History mirtazapine 15 mg tablet 15 mg PO BEDTIME 07/17/24 07/24/24 07/23/24 History amlodipine 10 mg tablet 10 mg PO BEDTIME 07/24/24 07/24/24 07/23/24 History empagliflozin 10 mg tablet 10 mg PO DAILY 07/24/24 07/24/24 07/23/24 History (Jardiance) linaclotide 145 mcg capsule 145 mcg PO DAILY 07/24/24 07/24/24 07/23/24 History (Linzess) losartan 100 mg tablet 100 mg PO DAILY 07/24/24 07/24/24 07/23/24 History Physical Exam 2 Vital Signs and Narrative: Vital Signs: Last Vital Signs Temp 97.3 F 08/10/24 21:58 Pulse 55 08/10/24 21:58 Resp 12 08/10/24 21:58 BP 120/42 L 08/10/24 21:58 Pulse Ox 96 08/10/24 21:58 O2 Del Method Room Air 08/10/24 21:58 BMI result Body Mass Index 35.3 General: AO X 3, no acute distress Resp: CTA bilateral, no accessory muscles used CVS: S1,S2,RRR GI: soft, non tender, non distended Neuro: motor grossly intact, alert Psych: appropriate affect, appropriate insight Results Labs 08/10/24 17:45 08/10/24 22:06 Labs: Laboratory Results - last 24 hr 08/10/24 08/10/24 17:45 22:06 MCV 85.1 MCH 27.5 MCHC 32.3 RDW 17.7 H Plt Count 247 D MPV 10.6 Immature Gran % (Auto) 0.5 H Neut % (Auto) 67.0 Lymph % (Auto) 21.7 [place] % (Auto) 8.4 Eos % (Auto) 2.1 Baso % (Auto) 0.3 Lymph # (Auto) 1.3 [place] # (Auto) 0.5 Eos # (Auto) 0.1 Baso # (Auto) 0.0 Abs Immat Gran (auto) 0.03 Absolute Neuts (auto) 3.9 Absolute Nucleated RBC 0.000 Nucleated RBC % (auto) 0.0 Anion Gap 15 12 Estim Creat Clear Calc 24.5 26.6 Estimated GFR 28 31 Random Glucose 149 H 98 Calcium 9.9 9.5 Magnesium 2.3 Total Bilirubin 0.3 AST 50 H ALT 38 H Alkaline Phosphatase 138 H Total Protein 7.5 Albumin 3.8 Assessment and Plan (1) Hyperkalemia: Status: Acute Plan 78F PMH chronic idiopathic constipation, obstructive sleep apnea, hyperlipidemia, unspecified asthma, chronic diastolic CHF, barrets and eosinophilic esophagitis, paroxysmal atrial fibrillation, sent in for hyperkalemia Acute kidney injury and hyperkalemia Unclear etiology, hyperkalemia disproportionately to level acute kidney injury, potassium-sparing meds have been discontinued Given low, in ED as well as normal saline, monitor on telemetry Follow up Bmp Nephrology eval Will decrease carvedilol in case contributing check UA, urine lytes barrets and eosinophilic esophagitis ppi Relative hypotension Holding amlodipine, carvedilol decreased Paroxysmal AFib Currently in sinus bradycardia, continue decreased dose carvedilol and Eliquis Chronic diastolic CHF Lasix DVT prophylaxis on Eliquis Full Code Given degree of hyperkalemia that has not fully responded too low, expected require at least 2 midnights inpatient Quality Stroke Does the patient have a stroke diagnosis?: No VTE Prior VTE?: No VTE Risk Level:: Medical - moderate - high VTE Device Contraindication: Treatment Not Indicated VTE Drug Contraindication: N/A - Med Ordered
[2024-08-10 23:46] VITALS: BP 102/56; PULSE 70; RESP 14; TEMP 35.6; O2SAT 96
[2024-08-10 23:53] VITALS: BP 142/54; PULSE 55
[2024-08-11] VITALS (12 sets, daily range): BP systolic 102–153; BP diastolic 28–70; PULSE 56–72; RESP 12–18; TEMP 33.6–36.7; O2SAT 94–97
[2024-08-11] MEDS: 0.9 % Sodium Chloride Flush 3 ML SYRINGE IVFLUSH ×4 (00:27→21:14)
[2024-08-11 02:40] LABS: Glucose, Whole Blood 96 mg/dL (60-115)
--- NOTE | 2024-08-11 02:41 | PC.NURSE ---
patient noted to be hypothermic. dr lemon aware. placed on warming blanket. patient awake and alert, no symptoms.
--- NOTE | 2024-08-11 03:10 | PC.NURSE ---
this rn assumed care of pt, pt on bear hugger at this time, rectal temp 92.8, pt continues on bear hugger at this time.
--- NOTE | 2024-08-11 04:25 | PC.NURSE ---
provider aware of pt temperature, no new orders at this time. bear hugger remains in place.
[2024-08-11 05:06] LABS: Hematocrit 32.9 % (37.0-47.0); Hemoglobin 10.5 g/dl (12.0-16.0); Mean Corpuscular HGB Conc 31.9 g/dl (31.0-35.0); Mean Corpuscular Hemoglobin 27.4 pg (27.0-33.0); Mean Corpuscular Volume 85.9 fL (80.0-98.0); Mean Platelet Volume 10.6 fL (9.4-12.3); Platelet Count 238 X10*3/uL (160-400); Red Blood Count 3.83 X10*6/uL (4.20-5.50); Red Cell Distribution Width 17.4 % (11.0-16.0); White Blood Count 5.5 X10*3/uL (4.8-10.8)
[2024-08-11 05:21] LABS: Anion Gap 12 (12-20); Blood Urea Nitrogen 24 mg/dL (9-16); Calcium 9.5 mg/dL (8.4-10.2); Carbon Dioxide 23 mmol/L (22-29); Chloride 113 mmol/L (96-108); Creatinine Clr Calc Pharmacy 27.6; Estimated Glomerular Filt Rate 32; Glucose Random 95 mg/dL (60-115); Potassium 5.7 mmol/L (3.3-5.1); Sodium 142 mmol/L (135-145)
--- NOTE | 2024-08-11 07:15 | PC.NURSE ---
patient rectal temp over 97, warming blanket removed from patient. rectal temp probe remains in place to monitor temps. patient awake and eating breakfast.
[2024-08-11] MEDS: Furosemide 40 MG TABLET PO (08:34)
[2024-08-11] MEDS: Omeprazole 40 MG CAPSULE.DR PO ×2 (08:34→17:00)
[2024-08-11] MEDS: Apixaban 2.5 MG TABLET PO ×2 (08:34→21:14)
[2024-08-11] MEDS: carvediloL 6.25 MG TABLET PO ×2 (08:34→21:13)
--- NOTE | 2024-08-11 13:38 | PHA.MEDREC ---
Addendum entered by Rajni Asif RP 08/11/24 13:54: [facility] reviewed Original Note: Pharmacy Consult ? Medication Reconciliation Pharmacy has completed the medication reconciliation. Spoke with family member and patient at bedside through an software trainer. Changes from last visit: patient started omeprazole bid, stopped spironolactone, the losartan is still being help, and she is no longer taking Linzess. Family member reports she is not taking simethicone, taking off of home list. Family confirmed she is not on Trulicity. No other changes reported. Last B12 injection was 07/26. She last took medications at noon time yesterday, no evening meds. Used discharge summary and claims to confirm the rest.
--- NOTE | 2024-08-11 15:44 | HO.PM.IMPN ---
Subjective Subjective Date of Service: 08/11/24 Interval History: Potassium responded well to therapies. No acute distress. Monitor without abnormalities Review of Systems Denies chest pain Denies shortness of breath Denies nausea vomiting diarrhea Denies fever chills Physical Exam Vital Signs: Vital Signs: Last Vital Signs Temp 97.2 F 08/11/24 08:31 Pulse 72 08/11/24 08:31 Resp 16 08/11/24 08:31 BP 124/50 L 08/11/24 08:31 Pulse Ox 95 08/11/24 08:31 O2 Del Method Room Air 08/11/24 08:31 BMI result Body Mass Index 35.3 Const: Other: Awake alert no acute distress Resp: Other: Clear to auscultation bilaterally no rales rhonchi or wheezes Cardio: Other: No S4; positive S1-S2; no S3 murmurs rubs or gallops GI: Other: Soft nontender nondistended normoactive bowel sounds Extrem: Other: No edema bilaterally Objective Data Active Medications Acetaminophen (Acetaminophen 325 Mg Tablet) 650 mg PO Q6H PRN PRN Reason: Pain, Mild 1-3,fever,headache Apixaban (Apixaban 2.5 Mg Tablet) 2.5 mg PO BID [facility] Last Admin: 08/11/24 08:34 Dose: 2.5 mg Documented By: IGOR Atorvastatin Calcium (Atorvastatin Calcium 40 Mg Tablet) 40 mg PO BEDTIME [facility] Calcium Carbonate (Calcium Carbonate 750 Mg Tab.Chew) 750 mg PO Q4H PRN PRN Reason: Heartburn Carvedilol (Carvedilol 6.25 Mg Tablet) 6.25 mg PO BID [facility]; Protocol Last Admin: 08/11/24 08:34 Dose: 6.25 mg Documented By: IGOR Furosemide (Furosemide 40 Mg Tablet) 40 mg PO DAILY [facility]; Protocol Last Admin: 08/11/24 08:34 Dose: 40 mg Documented By: IGOR Magnesium Hydroxide (Milk Of Magnesia 30 Ml Oral.Susp) 30 ml PO DAILY PRN PRN Reason: Constipation Melatonin (Melatonin 3 Mg Tablet) 6 mg PO BEDTIME PRN PRN Reason: Insomnia Mirtazapine (Mirtazapine 15 Mg Tablet) 15 mg PO BEDTIME [facility] Omeprazole (Omeprazole 40 Mg Capsule.Dr) 40 mg PO BID@0630,1630 [facility] Last Admin: 08/11/24 08:34 Dose: 40 mg Documented By: IGOR Sodium Chloride (0.9 % Sodium Chloride Flush 3 Ml Syringe) [facility] Last Admin: 08/11/24 08:33 Dose: 3 ml Documented By: IGOR Labs 08/11/24 04:56 08/11/24 04:56 Labs: Laboratory Results - last 24 hr 08/10/24 08/10/24 08/11/24 17:45 22:06 02:32 MCV 85.1 MCH 27.5 MCHC 32.3 RDW 17.7 H Plt Count 247 D MPV 10.6 Immature Gran % (Auto) 0.5 H Neut % (Auto) 67.0 Lymph % (Auto) 21.7 [place] % (Auto) 8.4 Eos % (Auto) 2.1 Baso % (Auto) 0.3 Lymph # (Auto) 1.3 [place] # (Auto) 0.5 Eos # (Auto) 0.1 Baso # (Auto) 0.0 Abs Immat Gran (auto) 0.03 Absolute Neuts (auto) 3.9 Absolute Nucleated RBC 0.000 Nucleated RBC % (auto) 0.0 Anion Gap 15 12 Estim Creat Clear Calc 24.5 26.6 Estimated GFR 28 31 POC Glucose 96 Random Glucose 149 H 98 Calcium 9.9 9.5 Magnesium 2.3 Total Bilirubin 0.3 AST 50 H ALT 38 H Alkaline Phosphatase 138 H Total Protein 7.5 Albumin 3.8 08/11/24 04:56 MCV 85.9 MCH 27.4 MCHC 31.9 RDW 17.4 H Plt Count 238 MPV 10.6 Immature Gran % (Auto) Neut % (Auto) Lymph % (Auto) [place] % (Auto) Eos % (Auto) Baso % (Auto) Lymph # (Auto) [place] # (Auto) Eos # (Auto) Baso # (Auto) Abs Immat Gran (auto) Absolute Neuts (auto) Absolute Nucleated RBC 0.000 Nucleated RBC % (auto) 0.0 Anion Gap 12 Estim Creat Clear Calc 27.6 Estimated GFR 32 POC Glucose Random Glucose 95 Calcium 9.5 Magnesium Total Bilirubin AST ALT Alkaline Phosphatase Total Protein Albumin Assessment and Plan (1) Acute hyperkalemia: Status: Acute (2) Renal insufficiency: Status: Acute Plan 78F PMH chronic idiopathic constipation, obstructive sleep apnea, hyperlipidemia, unspecified asthma, chronic diastolic CHF, barrets and eosinophilic esophagitis, paroxysmal atrial fibrillation, sent in for hyperkalemia 1.Acute kidney injury and hyperkalemia -hyperkalemia improved with Lokelma/volume -Nephrology eval pending -follow renals/divalents 2.Barrets/eosinophilic esophagitis -PPI as ordered 3.Relative hypotension -resolved -at packed outpatient therapies when clinically appropriate 4.Paroxysmal AFib -acceptable control on current therapies -resume outpatient carvedilol dosing when appropriate -Eliquis 5.Chronic diastolic CHF -stable and well compensated -continue outpatient therapies Eliquis Full Code Requires ongoing hospitalization for treatment of hyperkalemia and specialty consultation Quality Stroke Does the patient have a stroke diagnosis?: No VTE Prior VTE?: No VTE Risk Level:: Medical - moderate - high VTE Device Contraindication: Treatment Not Indicated VTE Drug Contraindication: N/A - Med Ordered
[2024-08-11 17:00] LABS: Appearance Urine Clear; Color Urine Yellow; Glucose Urine UA 500 mg/dL (Negative); Leukocyte Esterase Urine Negative (Negative); Nitrite Urine Negative (Negative); Urine Blood Negative (Negative); Urine Ketones Negative (Negative); Urine Protein Negative (Neg-Trace)
[2024-08-11 17:06] LABS: Creatinine Urine 18.34 mg/dL; Potassium Urine Random 17.2 mmol/L
[2024-08-11] MEDS: Atorvastatin Calcium 40 MG TABLET PO (21:14)
[2024-08-11] MEDS: Mirtazapine 15 MG TABLET PO (21:14)
[2024-08-11] MEDS: Melatonin 3 MG TABLET 6 MG PO (21:15)
[2024-08-12] VITALS (8 sets, daily range): BP systolic 108–140; BP diastolic 51–58; PULSE 57–69; RESP 16–20; TEMP 35.7–36.5; O2SAT 94–96
[2024-08-12 06:30] LABS: MANUAL DIFF FLAG NO
[2024-08-12 06:37] LABS: Basophils Percent Auto 0.3 % (0-2); Eosinophils Absolute Auto 0.1 X10*3/uL (0.0-0.4); Eosinophils Percent Auto 2.4 % (0-4); Hematocrit 32.4 % (37.0-47.0); Hemoglobin 10.2 g/dl (12.0-16.0); Imm Gran Abs Auto 0.03 X10*3/uL (0.00-0.03); Imm Gran Pct Auto 0.5 % (0.0-0.4); Lymphocytes Absolute Auto 1.8 X10*3/uL (1.2-4.9); Mean Corpuscular HGB Conc 31.5 g/dl (31.0-35.0); Mean Corpuscular Hemoglobin 27.1 pg (27.0-33.0); Mean Corpuscular Volume 85.9 fL (80.0-98.0); Mean Platelet Volume 10.8 fL (9.4-12.3); Monocytes Absolute Auto 0.6 X10*3/uL (0.1-1.2); Monocytes Percent Auto 9.9 % (2-11); Neutrophils Absolute Auto 3.3 x10*3/uL (2.0-8.3); Neutrophils Percent Auto 56.9 % (45-73); Platelet Count 226 X10*3/uL (160-400); Red Blood Count 3.77 X10*6/uL (4.20-5.50); Red Cell Distribution Width 17.8 % (11.0-16.0); White Blood Count 5.8 X10*3/uL (4.8-10.8)
[2024-08-12 06:56] LABS: Albumin Level 3.4 g/dL (3.5-5.0); Alkaline Phosphatase 117 U/L (39-117); Anion Gap 14 (12-20); Aspartate Amino Transferase 46 U/L (5-31); Bilirubin Total 0.2 mg/dL (0.0-1.0); Blood Urea Nitrogen 30 mg/dL (9-16); Calcium 9.7 mg/dL (8.4-10.2); Carbon Dioxide 23 mmol/L (22-29); Chloride 111 mmol/L (96-108); Creatinine Clr Calc Pharmacy 23.6; Estimated Glomerular Filt Rate 27; Glucose Fasting 80 mg/dL (60-99); Sodium 143 mmol/L (135-145); Total Protein 6.5 g/dL (6.5-8.0)
[2024-08-12 07:20] LABS: Alanine Aminotransferase 44 U/L (0-31)
[2024-08-12] MEDS: carvediloL 6.25 MG TABLET PO (09:20)
[2024-08-12] MEDS: 0.9 % Sodium Chloride Flush 3 ML SYRINGE IVFLUSH ×3 (09:20→20:03)
[2024-08-12] MEDS: Apixaban 2.5 MG TABLET PO ×2 (09:20→20:03)
[2024-08-12] MEDS: Furosemide 40 MG TABLET PO (09:20)
--- NOTE | 2024-08-12 13:19 | HO.PM.IMPN ---
Subjective Subjective Date of Service: 08/12/24 Interval History: No acute issues overnight. Potassium improved Review of Systems Denies chest pain Denies shortness of breath Denies nausea vomiting diarrhea Denies fever chills Physical Exam Vital Signs: Vital Signs: Last Vital Signs Temp 96.2 F L 08/12/24 12:00 Pulse 57 08/12/24 12:00 Resp 16 08/12/24 12:00 BP 115/58 L 08/12/24 12:00 Pulse Ox 95 08/12/24 12:00 O2 Del Method Room Air 08/12/24 12:00 O2 Flow Rate 96 08/11/24 20:00 BMI result Body Mass Index 35.3 Const: Other: Awake alert no acute distress Resp: Other: Clear to auscultation bilaterally no rales rhonchi or wheezes Cardio: Other: No S4; positive S1-S2; no S3 murmurs rubs or gallops GI: Other: Soft nontender nondistended normoactive bowel sounds Extrem: Other: No edema bilaterally Objective Data Active Medications Acetaminophen (Acetaminophen 325 Mg Tablet) 650 mg PO Q6H PRN PRN Reason: Pain, Mild 1-3,fever,headache Apixaban (Apixaban 2.5 Mg Tablet) 2.5 mg PO BID [facility] Last Admin: 08/12/24 09:20 Dose: 2.5 mg Documented By: JAGDEEP Atorvastatin Calcium (Atorvastatin Calcium 40 Mg Tablet) 40 mg PO BEDTIME [facility] Last Admin: 08/11/24 21:14 Dose: 40 mg Documented By: ARTHUR Calcium Carbonate (Calcium Carbonate 750 Mg Tab.Chew) 750 mg PO Q4H PRN PRN Reason: Heartburn Carvedilol (Carvedilol 6.25 Mg Tablet) 6.25 mg PO BID [facility]; Protocol Last Admin: 08/12/24 09:20 Dose: 6.25 mg Documented By: JAGDEEP Furosemide (Furosemide 40 Mg Tablet) 40 mg PO DAILY [facility]; Protocol Last Admin: 08/12/24 09:20 Dose: 40 mg Documented By: JAGDEEP Magnesium Hydroxide (Milk Of Magnesia 30 Ml Oral.Susp) 30 ml PO DAILY PRN PRN Reason: Constipation Melatonin (Melatonin 3 Mg Tablet) 6 mg PO BEDTIME PRN PRN Reason: Insomnia Last Admin: 08/11/24 21:15 Dose: 6 mg Documented By: ARTHUR Mirtazapine (Mirtazapine 15 Mg Tablet) 15 mg PO BEDTIME [facility] Last Admin: 08/11/24 21:14 Dose: 15 mg Documented By: ARTHUR Omeprazole (Omeprazole 40 Mg Capsule.) 40 mg PO BID@0630,1630 [facility] Last Admin: 08/12/24 06:01 Dose: Not Given Documented By: ARTHUR Non-Admin Reason: Patient Refused Sodium Chloride (0.9 % Sodium Chloride Flush 3 Ml Syringe) 3 ml IVFLUSH QSHIFT [facility] Last Admin: 08/12/24 09:20 Dose: 3 ml Documented By: JAGDEEP Labs 08/12/24 06:06 08/12/24 06:06 Labs: Laboratory Results - last 24 hr 08/11/24 08/12/24 16:30 06:06 MCV 85.9 MCH 27.1 MCHC 31.5 RDW 17.8 H Plt Count 226 MPV 10.8 Immature Gran % (Auto) 0.5 H Neut % (Auto) 56.9 Lymph % (Auto) 30.0 [place] % (Auto) 9.9 Eos % (Auto) 2.4 Baso % (Auto) 0.3 Lymph # (Auto) 1.8 [place] # (Auto) 0.6 Eos # (Auto) 0.1 Baso # (Auto) 0.0 Abs Immat Gran (auto) 0.03 Absolute Neuts (auto) 3.3 Absolute Nucleated RBC 0.000 Nucleated RBC % (auto) 0.0 Anion Gap 14 Estim Creat Clear Calc 23.6 Estimated GFR 27 Fasting Glucose 80 Calcium 9.7 Total Bilirubin 0.2 AST 46 H ALT 44 H Alkaline Phosphatase 117 Total Protein 6.5 Albumin 3.4 L Urine Color Yellow Urine Appearance Clear Urine pH 7.0 Ur Specific [place] 1.010 Urine Protein Negative Urine Glucose (UA) 500 H Urine Ketones Negative Urine Blood Negative Urine Nitrite Negative Ur Leukocyte Esterase Negative Ur Random Sodium 123.0 Ur Random Potassium 17.2 Ur Random Chloride 123.0 Urine Creatinine 18.34 Assessment and Plan (1) MARIA R (acute kidney injury): Status: Acute (2) Acute hyperkalemia: Status: Acute Plan 78F PMH chronic idiopathic constipation, obstructive sleep apnea, hyperlipidemia, unspecified asthma, chronic diastolic CHF, barrets and eosinophilic esophagitis, paroxysmal atrial fibrillation, sent in for hyperkalemia 1.Acute kidney injury and hyperkalemia -hyperkalemia improved with Lokelma/volume -Nephrology to see in a.m. -follow renals/divalents 2.Barrets/eosinophilic esophagitis -PPI as ordered 3.Relative hypotension -resolved -at packed outpatient therapies when clinically appropriate 4.Paroxysmal AFib -acceptable control on current therapies -resume outpatient carvedilol dosing when appropriate -Eliquis 5.Chronic diastolic CHF -stable and well compensated -continue outpatient therapies Eliquis Full Code Requires ongoing hospitalization for treatment of hyperkalemia and specialty consultation Quality Stroke Does the patient have a stroke diagnosis?: No VTE Prior VTE?: No VTE Risk Level:: Medical - moderate - high VTE Device Contraindication: Treatment Not Indicated VTE Drug Contraindication: N/A - Med Ordered
--- NOTE | 2024-08-12 13:25 | MHC.CM.PN ---
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 for DME, she has a walker, cane, raised toilet seat, tub slide board. She has a nurse that visits from [facility]. HCP is her son. Brandon Hawkinsron, copy requested. Dtr to transport home at DC. DCP: home, resume services. CM to follow for DC needs.
[2024-08-12] MEDS: Omeprazole 40 MG CAPSULE.DR PO (16:18)
[2024-08-12] MEDS: Atorvastatin Calcium 40 MG TABLET PO (20:03)
[2024-08-12] MEDS: Mirtazapine 15 MG TABLET PO (20:03)
[2024-08-13 03:17] VITALS: BP 140/66; PULSE 70; RESP 18; TEMP 36; O2SAT 95
[2024-08-13] MEDS: Omeprazole 40 MG CAPSULE.DR PO (05:32)
[2024-08-13 06:31] LABS: MANUAL DIFF FLAG NO
[2024-08-13 06:45] LABS: Basophils Percent Auto 0.5 % (0-2); Eosinophils Absolute Auto 0.1 X10*3/uL (0.0-0.4); Eosinophils Percent Auto 2.1 % (0-4); Hematocrit 34.3 % (37.0-47.0); Hemoglobin 10.9 g/dl (12.0-16.0); Imm Gran Abs Auto 0.04 X10*3/uL (0.00-0.03); Imm Gran Pct Auto 0.7 % (0.0-0.4); Lymphocytes Absolute Auto 1.6 X10*3/uL (1.2-4.9); Lymphocytes Percent Auto 26.7 % (20-40); Mean Corpuscular HGB Conc 31.8 g/dl (31.0-35.0); Mean Corpuscular Hemoglobin 27.5 pg (27.0-33.0); Mean Corpuscular Volume 86.4 fL (80.0-98.0); Mean Platelet Volume 11.1 fL (9.4-12.3); Monocytes Absolute Auto 0.6 X10*3/uL (0.1-1.2); Monocytes Percent Auto 10.3 % (2-11); NRBC Pct Auto 0.3 /100WBC (0.0-0.2); Neutrophils Absolute Auto 3.7 x10*3/uL (2.0-8.3); Neutrophils Percent Auto 59.7 % (45-73); Platelet Count 219 X10*3/uL (160-400); Red Blood Count 3.97 X10*6/uL (4.20-5.50); Red Cell Distribution Width 17.6 % (11.0-16.0); White Blood Count 6.1 X10*3/uL (4.8-10.8)
[2024-08-13 07:12] LABS: Alanine Aminotransferase 41 U/L (0-31); Albumin Level 3.7 g/dL (3.5-5.0); Anion Gap 13 (12-20); Aspartate Amino Transferase 41 U/L (5-31); Bilirubin Total 0.3 mg/dL (0.0-1.0); Blood Urea Nitrogen 32 mg/dL (9-16); Calcium 10.1 mg/dL (8.4-10.2); Carbon Dioxide 25 mmol/L (22-29); Chloride 108 mmol/L (96-108); Creatinine Clr Calc Pharmacy 23.6; Estimated Glomerular Filt Rate 27; Glucose Fasting 81 mg/dL (60-99); Potassium 4.6 mmol/L (3.3-5.1); Sodium 141 mmol/L (135-145); Total Protein 7.1 g/dL (6.5-8.0)
[2024-08-13 07:20] VITALS: BP 139/60; PULSE 60; RESP 18; TEMP 36; O2SAT 95
[2024-08-13 08:15] LABS: Alkaline Phosphatase 126 U/L (39-117)
--- NOTE | 2024-08-13 08:15 | P.CONNP_ITS ---
History of Present Illness Reason for Consult Consult date: 08/13/24 Reason for consult: MARIA R Chief Complaint Chief complaint: hyperkalemia History of Present Illness Narrative: 78F with chronic idiopathic constipation, obstructive sleep apnea, barrets and eosinophilic esophagitis, hyperlipidemia, unspecified asthma, chronic diastolic CHF, paroxysmal atrial fibrillation, sent in for hyperkalemia. Patient was admitted to [facility] for 07/24/24-08/02/24 for diverticulitis and hyperkalemia with MARIA R. At that time received fluids and antibiotics and her losartan and Aldactone had been discontinued. Patient reports feeling well since discharge, had follow-up labs which revealed hyperkalemia with potassium of 6.8 and acute kidney injury with creatinine of 1.61 h/o Venous insufficiency and lymphedema She was recently in the hospitla for MARIA R with a Cr of 2.26 and resolved prior to discharge. During this admission, K has been corrected with lokelma Losartan on hold Cr is at 1.8 Baseline < 1.0 Review of Systems Constitutional: Denies fever(s) and Denies weight loss Cardiovascular: Denies chest pain Respiratory: Denies cough and Denies hemoptysis Gastrointestinal: Denies abdominal pain, Denies diarrhea and Denies nausea Musculoskeletal: Denies back pain Denies focal weakness PMFSH Past Medical History Medical History Epigastric pain Tubular adenoma of colon Preop cardiovascular exam Urinary urgency Pneumonia Hospital discharge follow-up Asthma MARIA R (acute kidney injury) GERD (gastroesophageal reflux disease) Diabetes Osteoarthritis Hyperlipidemia Chronic diastolic heart failure Hypertension JOVANNI (obstructive sleep apnea) Family History Family History Father HTN (hypertension) Mother HTN (hypertension) CVD (cardiovascular disease) Daughter Bone cancer Father Cancer Surgical History Surgical History Hx of cataract surgery Status post total knee replacement, right History of arthroplasty of right knee Hx of colonoscopy H/O: hysterectomy History of salpingoophorectomy History of tonsillectomy Social History Social History Household Members: Family Housing: House Are you a primary childcare teacher to a significant other at home: No Do you presently have visiting nurse or other home services: Yes Unable to assess alcohol history related to: Unknown Alcohol intake: never Comment: Advised to remove Patient Tobacco Use Status: Never used Tobacco Smoked in Last 30 Days: No e-Cigarette/Vaping Use: Never Used Patient Interested in Nicotine Replacement: No Patient Given Instructions on How to Stop Smoking: No Second Hand Smoke Exposure: No Use of substances other than those prescribed or required for medical reasons: No Currently Displaying Signs/Symptoms of Drug Intoxication Withdrawal: No Any prior treatment program specific to substance use: No Have you been hit, kicked, punched, or otherwise hurt by someone within the past year? If so, by whom?: No Are you made to feel afraid or neglected: No [facility] Practices: Spiritism Advance Directives: No Advance Directives Information Provided: No Advance Directives on File: No Do you have a plan to hurt others: No Plan Recently lost weight without trying: Yes Eating poorly because of decreased appetite: Yes Nutrition Risks: Difficulty swallowing Patient : No : No Poor oral hygiene: No service: No Current occupational status: retired Current occupation: Right handed Meds Allergies Allergy/AdvReac Type Severity Reaction Status Date / Time Penicillins [PENICILLINS] Allergy Intermediate NAUSEA/HIVE Verified 08/10/24 17:34 S metformin AdvReac Unknown Diarrhea Verified 07/24/24 15:38 Active Medications: Current Medications Acetaminophen (Acetaminophen 325 Mg Tablet) 650 mg PO Q6H PRN PRN Reason: Pain, Mild 1-3,fever,headache Apixaban (Apixaban 2.5 Mg Tablet) 2.5 mg PO BID [facility] Last Admin: 08/12/24 20:03 Dose: 2.5 mg Atorvastatin Calcium (Atorvastatin Calcium 40 Mg Tablet) 40 mg PO BEDTIME BENJIE Last Admin: 08/12/24 20:03 Dose: 40 mg Calcium Carbonate (Calcium Carbonate 750 Mg Tab.Chew) 750 mg PO Q4H PRN PRN Reason: Heartburn Carvedilol (Carvedilol 6.25 Mg Tablet) 6.25 mg PO BID [facility]; Protocol Last Admin: 08/12/24 19:57 Dose: Not Given Furosemide (Furosemide 40 Mg Tablet) 40 mg PO DAILY [facility]; Protocol Last Admin: 08/12/24 09:20 Dose: 40 mg Magnesium Hydroxide (Milk Of Magnesia 30 Ml Oral.Susp) 30 ml PO DAILY PRN PRN Reason: Constipation Melatonin (Melatonin 3 Mg Tablet) 6 mg PO BEDTIME PRN PRN Reason: Insomnia Last Admin: 08/11/24 21:15 Dose: 6 mg Mirtazapine (Mirtazapine 15 Mg Tablet) 15 mg PO BEDTIME [facility] Last Admin: 08/12/24 20:03 Dose: 15 mg Omeprazole (Omeprazole 40 Mg Capsule.Dr) 40 mg PO BID@0630,1630 [facility] Last Admin: 08/13/24 05:32 Dose: 40 mg Sodium Chloride (0.9 % Sodium Chloride Flush 3 Ml Syringe) 3 ml IVFLUSH QSHIFT [facility] Last Admin: 08/12/24 20:03 Dose: 3 ml Home Medications ?Medication ?Instructions ?Recorded ?Confirmed ?Last Taken ?Type oxybutynin chloride 5 mg tablet 5 mg PO BID 05/15/20 08/11/24 07/23/24 History calcium carbonate 1 tab PO DAILY 03/24/21 08/11/24 07/23/24 History cholecalciferol (vitamin D3) 25 1 tab PO DAILY 03/24/21 08/11/24 07/23/24 History mcg (1,000 unit) tablet fluticasone propionate 50 1 - 2 spray intranasal DAILY PRN 03/24/21 08/11/24 11/01/22 History mcg/actuation nasal Nasal Congestion spray,suspension cyanocobalamin (vitamin B-12) 1,000 mcg IM Q28D 11/02/22 08/11/24 07/26/24 History 1,000 mcg/mL injection solution cetirizine 10 mg tablet 10 mg PO DAILY 07/17/24 08/11/24 07/23/24 History mirtazapine 15 mg tablet 15 mg PO BEDTIME 07/17/24 08/11/24 07/23/24 History amlodipine 10 mg tablet 10 mg PO BEDTIME 07/24/24 08/11/24 07/23/24 History empagliflozin 10 mg tablet 10 mg PO DAILY 07/24/24 08/11/24 07/23/24 History (Jardiance) losartan 100 mg tablet 100 mg PO DAILY 07/24/24 07/24/24 07/23/24 History Physical Exam Vital Signs: Last Vital Signs Temp 96.8 F 08/13/24 07:20 Pulse 60 08/13/24 07:20 Resp 18 08/13/24 07:20 BP 139/60 08/13/24 07:20 Pulse Ox 95 08/13/24 07:20 O2 Del Method Room Air 08/13/24 07:20 O2 Flow Rate 96 08/11/24 20:00 BMI result Body Mass Index 35.3 Awake. Comfortable. Neck is supple. Mucosa moist. Lungs bilateral scattered rhonchi. Heart S1-S2 heard no gallop. Abdomen soft. Extremities no edema. No involuntary movements. No myoclonus. Results Lab Results 08/13/24 06:20 08/13/24 06:20 Lab results: Chemistry 08/10/24 08/10/24 08/11/24 17:45 22:06 04:56 Sodium 139 140 142 Potassium 6.3 H* 6.3 H* 5.7 H Carbon Dioxide 25 23 BUN 26 H 24 H 24 H Creatinine 1.74 H 1.60 H 1.54 H Calcium 9.9 9.5 9.5 08/12/24 08/13/24 06:06 06:20 Sodium 143 141 Potassium 5.0 4.6 Carbon Dioxide BUN 30 H 32 H Creatinine 1.80 H 1.80 H Calcium 9.7 10.1 Hematology 08/10/24 08/11/24 08/12/24 17:45 04:56 06:06 WBC 5.9 5.5 5.8 Hgb 10.7 L 10.5 L 10.2 L Plt Count 247 D 238 226 08/13/24 06:20 WBC 6.1 Hgb 10.9 L Plt Count 219 Urinalysis 08/11/24 16:30 Urine Color Yellow Urine Appearance Clear Urine pH 7.0 Ur Specific [place] 1.010 Urine Protein Negative Urine Glucose (UA) 500 H Urine Ketones Negative Urine Blood Negative Urine Nitrite Negative Ur Leukocyte Esterase Negative Urine Studies 08/11/24 16:30 Urine Creatinine 18.34 Assessment and Plan (1) Renal insufficiency: Status: Acute (2) Hyperkalemia: Status: Acute Plan MARIA R superimposed on CKD Maria R most likely due to hypoperfusion No obstruction based on USG Urine- [place]- doubt AGN/AIN Hyperkalemia Due to combination of MARIA R and KERON blockade /aldosterone antogonist suggest Hold Losartan for now Keep I > O Low K diet Loklema PRN if K > 5.2 Can resume Losartan upon DC and watch K Procedures Date of Service Date of Service: 08/13/24
[2024-08-13] MEDS: 0.9 % Sodium Chloride Flush 3 ML SYRINGE IVFLUSH (08:59)
[2024-08-13] MEDS: carvediloL 6.25 MG TABLET PO (09:00)
[2024-08-13] MEDS: Furosemide 40 MG TABLET PO (09:00)
[2024-08-13] MEDS: Apixaban 2.5 MG TABLET PO (09:00)
[2024-08-13 11:07] VITALS: BP 134/62; PULSE 57; RESP 20; TEMP 36; O2SAT 96
--- NOTE | 2024-08-13 12:09 | W.MHC.F2F ---
Service Date Service Date: 08/13/24 Encounter Date of encounter: 08/13/24 Reasons for Services Signs and symptoms assessed: Monitor blood pressure and teach disease management Reason for longterm: medication management, medication treatment and teach disease management Homebound: Leaving the home is medically contraindicated at this time without the asist of a device and/or another person due th the listed conditions above and below. Reason homebound: unsteady gait / fall risk and unable to drive Certification: Based on the above findings, I certify that this patient is confined to the home and needs intermittent longterm care, physical therapy and/or speech therapy, or continues to need occupational therapy. The patient is under my care, and I have initiated the establishment of the plan of care. The patient will be followed by a physician who will periodically review the plan of care. Time Spent With Patient Time: Total time managing care of this patient today ____ minutes.
--- NOTE | 2024-08-13 13:01 | MHC.CM.PN ---
PT WILL DC HOME TODAY WTIH RESUMPTION OF [facility] AND APPLICATION ARCHITECT SERVICES DAUGHTER TO TRANSPORT
== END 2024-08-13 13:00 | disposition home health service (06) | DRG 683 ==
LOC: HO.ED 08-11 00:12 → HO.EDOVER 08-11 00:25 → HO.IMC 08-11 08:07
PROVIDERS: Admitting Provider Internal Medicine; Emergency Provider Emergency Medicine; PCP Internal Medicine Geriatric Medicine; Visit Provider Hospitalist
DX: N17.9 Acute kidney failure, unspecified (principal); I50.32 Chronic diastolic (congestive) heart failure; E87.5 Hyperkalemia; E11.9 Type 2 diabetes mellitus without complications; K59.04 Chronic idiopathic constipation; I95.9 Hypotension, unspecified; R00.1 Bradycardia, unspecified; I48.0 Paroxysmal atrial fibrillation; K22.70 Barrett's esophagus without dysplasia; K20.0 Eosinophilic esophagitis; Z79.01 Long term (current) use of anticoagulants; Z79.84 Long term (current) use of oral hypoglycemic drugs; Z79.899 Other long term (current) drug therapy
CPT/HCPCS: 36415; 76775; 80048; 80053; 81003; 82436; 82570; 82947; 83735; 84133; 84300; 85025; 85027; 93005; 99285

== ENCOUNTER → 2024-08-10 17:36 | Outpatient (BNV) | payer OTHER, SELFPAY | PROVIDERS: Admitting Provider Internal Medicine; Emergency Provider Emergency Medicine; PCP Internal Medicine Geriatric Medicine; Visit Provider Internal Medicine | DX: R00.1 Bradycardia, unspecified (principal) | CPT/HCPCS: 93010 ==

== ENCOUNTER → 2024-08-10 18:19 | Outpatient (BNV) | payer OTHER, SELFPAY | PROVIDERS: Emergency Provider Emergency Medicine; PCP Internal Medicine Geriatric Medicine; Visit Provider Internal Medicine | DX: N17.9 Acute kidney failure, unspecified (principal); I48.91 Unspecified atrial fibrillation | CPT/HCPCS: G0180 ==

== ENCOUNTER 2024-08-10 23:34 | Outpatient (BNV) | payer OTHER, SELFPAY | END 2024-08-12 11:24 | PROVIDERS: Admitting Provider Internal Medicine; Emergency Provider Emergency Medicine; PCP Internal Medicine Geriatric Medicine; Visit Provider Radiology Vascular & Interventional Radiology | DX: N17.9 Acute kidney failure, unspecified (principal) | CPT/HCPCS: 76775 ==

== ENCOUNTER → 2024-08-10 23:34 | Outpatient (BNV) | payer OTHER, SELFPAY | PROVIDERS: Admitting Provider Internal Medicine; Emergency Provider Emergency Medicine; PCP Internal Medicine Geriatric Medicine; Visit Provider Internal Medicine Hypertension Specialist | DX: N28.9 Disorder of kidney and ureter, unspecified (principal); E87.5 Hyperkalemia | CPT/HCPCS: 99223 ==

== ENCOUNTER 2024-08-30 13:08 | Outpatient (REF) | payer OTHER, SELFPAY ==
[2024-08-30 13:47] LABS: Anion Gap 11 (12-20); Blood Urea Nitrogen 25 mg/dL (9-16); Calcium 9.9 mg/dL (8.4-10.2); Carbon Dioxide 27 mmol/L (22-29); Chloride 111 mmol/L (96-108); Estimated Glomerular Filt Rate 43; Glucose Random 82 mg/dL (60-115); Potassium 5.1 mmol/L (3.3-5.1); Sodium 144 mmol/L (135-145)
--- OUTSIDE RECORDS SUMMARY | 2024-08-30 14:03 | XMS_ITS | Encounter Summary ---
Author Organization [employer] Address [address] [place] [address] Care Team Providers Care Keg Filler Name Role Phone Name, Balta MAYER Primary Care Provider Reason for Visit * Reason Comments Med Refill Encounter Details Date Type Department Care Team (Late st Contact Info) Description 07/29/2024 Refill [facility] [address] [place], [place] [phone] Name, MD Balta [address] [place] [address] Vitamin D deficiency Social History Tobacco Use [...] Care Team (Late st Contact Info) Description 09/03/2024 9:00 AM EST Office Visit [facility] [address] [place] [address] Jaymie Adams NP [address] [place] [address] 09/03/2024 1:30 PM EST Clinical Support [facility] [address] [place] [address] 09/19/2024 2:15 PM EDT Office Visit [facility] [address] [place] [address] Name, MD Balta [address] [place] [address] 12/17/2024 1:30 PM EDT Office Visit [facility] [address] [place] [address] Esther Mcdonald, OD [address] [place] [address] documented as of this encounter Visit Diagnoses Diagnosis Vitamin D deficiency documented in this encounter Additional Health Concerns Assessment Noted Time PHQ-9 Depression Total Score: 0 09/20/19 1:15 PM EDT documented as of this encounter Care Teams Keg Filler Relationship Specialty Start Date End Date Name, MD Balta [address] [place] [address] PCP - General Internal Medicine 06/14/22 documented as of this encounter
--- OUTSIDE RECORDS SUMMARY | 2024-08-30 14:03 | XMS_ITS | Encounter Summary ---
Author Organization [employer] Address [address] [facility] [address] [facility] [address] [facility] 7[address] [place] [address] Care Team Providers Care Truck Body Builder Apprentice Name Role Phone Name, Balta MAYER Primary Care Provider [phone] Reason for Visit * Reason Onset Date Comments ER Follow-up 08/06/2024 Encounter Details Date Type Department Care Team ([facility] Contact Info) Description 08/06/2024 Telephone [facility] [address] [place] [address] Name, MD Balta [address] [place] [address] ER Follow-up Social History Tobacco Use Types [...] from pt requesting a HDF appt. Hospital: [facility] Date of admission: 07/24/24 Discharge date: 08/02/24 Diagnosed: Acute Dysphagia *Send message to [facility] Clinical Care Coordinators documented in this encounter Plan of Treatment Upcoming Encounters Date Type Department Care Team (Late st Contact Info) Description 09/03/2024 9:00 AM EST Office Visit [address] [address] Jaymie Adams NP [address] [place] [address] 09/03/2024 1:30 PM EST Clinical Support [address] [phone] 09/19/2024 2:15 PM EDT Office Visit [address] [address] Name, MD Balta [address] [place] [address] 12/17/2024 1:30 PM EDT Office Visit [facility] OPTOMETRY [address] [place], [place] [phone] Esther Mcdonald, OD [address] [place] [address] documented as of this encounter Visit Diagnoses Not on filedocumented in this encounter Additional Health Concerns Assessment Noted Time PHQ-9 Depression Total Score: 0 09/20/19 24 1:15 PM EDT documented as of this encounter Care Teams Truck Body Builder Apprentice Relationship Specialty Start Date End Date Name, MD Balta [address] [place] [address] PCP - General Internal Medicine 06/14/22 [facility] 08/05/24 documented as of this encounter
--- OUTSIDE RECORDS SUMMARY | 2024-08-30 14:03 | XMS_ITS | Encounter Summary ---
Author Organization [employer] Address [address] [place] [address] Care Team Providers Care Brassiere Cup Mold Cutter Name Role Phone Name, Balta MAYER Primary Care Provider [phone] Encounter Details Date Type Department Care Team (Late st Contact Info) Description 07/20/2024 Community Care Management [facility] [address] [place], [place] [phone] [employer] Link, Physician, Social History Tobacco Use [...] Description 09/03/2024 9:00 AM EST Office Visit [facility] [address] [place] [address] Jaymie Adams NP [address] [place] [address] 09/03/2024 1:30 PM EST Clinical Support [facility] [address] [place] [address] 09/19/2024 2:15 PM EDT Office Visit [facility] [address] [place] [address] Balta Jeffrey MD [address] [place] [address] 12/17/2024 1:30 PM EDT Office Visit [facility] OPTOMETRY [address] [place] [address] Harry, Esther, OD [address] [place] [address] documented as of this encounter Visit Diagnoses Not on filedocumented in this encounter Additional Health Concerns Assessment Noted Time PHQ-9 Depression Total Score: 0 09/20/19 24 1:15 PM EDT documented as of this encounter Care Teams Brassiere Cup Mold Cutter Relationship Specialty Start Date End Date Balta Jeffrey MD [address] [place] [address] PCP - General Internal Medicine 06/14/22 [facility] 08/05/24 documented as of this encounter
--- OUTSIDE RECORDS SUMMARY | 2024-08-30 14:03 | XMS_ITS | Encounter Summary ---
Author Organization [employer] Address [address] [facility] 7t [place] [address] Care Team Providers Care Certified Credit Counselor Name Role Phone Name, Balta MAYER Primary Care Provider [phone] Reason for Visit * Reason Comments Transition Of Care (Tcm) HDF- scheduled Encounter Details Date Type Department Care Team (Late st Contact Info) Description 08/06/[address] [facility] [address] [place] [phone] Name, MD Balta [address] [place] [address] Transition Of Care (Tcm) (HDF- scheduled ) [...] Admission/Visit 07/24/24 Date of Discharge 08/02/24 Facility [facility] Diagnosis Acute Dysphagia Disposition Discharged Home Follow-Up [...] Wednesdays, and Walk-In Urgent Care Located in [facility]. Patient provided with after-hours line for [facility], , which offer night time triage service and option to transfer to sap integration architect provider if needed. CC will request Discharge summary to be scanned into chart. documented in this encounter Plan of Treatment Upcoming Encounters Date Type Department Care Team (Late st Contact Info) Description 09/03/2024 9:00 AM EST Office Visit [facility] [address] [place] [address] Jaymie Adams NP [address] [place] [address] 09/03/2024 1:30 PM EST Clinical Support [address] [address] 09/19/2024 2:15 PM EDT Office Visit [address] [address] Balta Jeffrey MD [address] [place] [address] 12/17/2024 1:30 PM EDT Office Visit [facility] [address] [place] [address] Harry, Esther, OD [address] [place] [address] documented as of this encounter Visit Diagnoses Not on filedocumented in this encounter Additional Health Concerns Assessment Noted Time PHQ-9 Depression Total Score: 0 09/20/19 24 1:15 PM EDT documented as of this encounter Care Teams Certified Credit Counselor Relationship Specialty Start Date End Date NameBalta MD [address] [place] [id number] PCP - General Internal Medicine 06/14/22 [facility] 08/05/24 documented as of this encounter
--- OUTSIDE RECORDS SUMMARY | 2024-08-30 14:03 | XMS_ITS | Encounter Summary ---
Author Organization [employer] Address [address] [facility] 7t [place] [address] Care Team Providers Care Manager Industrial Name Role Phone Name, Balta MAYER Primary Care Provider [phone] Reason for Visit * Reason Onset Date Comments Durable Medical Equipment 07/20/2024 Encounter Details Date Type Department Care Team (Late st Contact Info) Description 07/20/2024 Telephone [facility] [address] [place] [address] Name, MD Balta [address] [place] [phone] Durable Medical Equipment Social History Tobacco Use [...] scanned into media. DME order generated in [employer] Order [id number] * Telephone Encounter - Nancy Guillen - [...] Rina requesting DME. -recliner -shower handle/bar Fax# [phone] documented in this encounter Plan of Treatment Upcoming Encounters Date Type Department Care Team (Late st Contact Info) Description 09/03/2024 9:00 AM EST Office Visit [facility] [address] [place] [address] Jaymie Adams NP [address] [place] [address] 09/03/2024 1:30 PM EST Clinical Support [address] [address] 09/19/2024 2:15 PM EDT Office Visit [address] [address] Balta Jeffrey MD [address] [place] [address] 12/17/2024 1:30 PM EDT Office Visit [facility] [address] [place] [address] Harry, Esther, OD [address] [place] [address] documented as of this encounter Visit Diagnoses Not on filedocumented in this encounter Additional Health Concerns Assessment Noted Time PHQ-9 Depression Total Score: 0 09/20/19 24 1:15 PM EDT documented as of this encounter Care Teams Manager Industrial Relationship Specialty Start Date End Date Balta Jfefrey MD [address] [place] [phone] PCP - General Internal Medicine 06/14/22 documented as of this encounter
--- OUTSIDE RECORDS SUMMARY | 2024-08-30 14:03 | XMS_ITS | Continuity of Care Document ---
Author Organization [facility] [employer] [facility] Address [address] [place] [address] Phone Care Team Providers Care Shirt Folding Machine Operator Name Role Phone MD LEYLA Schreiber, Julia [...] Provider Providers Copied on Encounter [facility], [address], [place], [place], [id number], [place] tel:[phone] [facility] blurry vision (chief complaint) Combined forms of age-related cataract, bilateralDry eye syndrome of bilateral lacrimal glandsOpen angle with borderline findings, high risk, bilateral MD Julia Kitchen. [address] [facility], [place], [place], [id number] , [place]. tel: [phone] Referring Provider: SUMAYA HERNANDEZ, [address] [facility], [place], [address]. tel:[phone] Family History Family Member Type Diagnosis Age At Onset No Information Payers Payer name Insurance type Covered republican ID randy goff(s) [facility] CI [id number] Social History Type Description Quantity Date Captured [...]
--- OUTSIDE RECORDS SUMMARY | 2024-08-30 14:03 | XMS_ITS | Encounter Summary ---
Author Organization [email or web address] Address [address] [facility] 7t [place] [address] Care Team Providers Care Information Technology Instructor Name Role Phone Name, Balta MAYER Primary Care Provider [phone] Reason for Visit * Reason Onset Date Comments FYI 07/27/2024 Encounter Details Date Type Department Care Team (Late st Contact Info) Description 07/27/2024 Telephone [facility] [address] [place] [address] Name, MD Balta [address] [place] [phone] FY Social History Tobacco Use Types Packs/Day Years [...] 08/03/2024 3:41 PM EST Pt discharged from [facility] 08/02/24 Dx: Dysphagia. T/C to listed number via [facility] [employer] #[phone]. [employer] states message received indicating call failed x 2. No option to leave voicemail. * Telephone Encounter - Flores Cabrera RN - 07/27/2024 10:17 AM EST Noted. Pt still admitted. Follow up upon discharge. * Telephone Encounter - Christina Mcclelland - 07/27/2024 10:06 AM EST Tc from [facility] to report pt are in [facility], was admitted on 07/24 because of concern of diarrhea. documented in this encounter Plan of Treatment Upcoming Encounters Date Type Department Care Team (Late st Contact Info) Description 09/03/2024 9:00 AM EST Office Visit [facility] [address] [place] [address] Jaymie Adams NP 230 [place] [address] 09/03/2024 1:30 PM EST Clinical Support [facility] [address] [place] [address] 09/19/2024 2:15 PM EDT Office Visit [facility] [address] [place] [address] NameBalta MD 230 [place] [address] 12/17/2024 1:30 PM EDT Office Visit [facility] [address] [place] [address] Harry, Esther, OD [address] [place] [address] documented as of this encounter Visit Diagnoses Not on filedocumented in this encounter Additional Health Concerns Assessment Noted Time PHQ-9 Depression Total Score: 0 09/20/19 24 1:15 PM EDT documented as of this encounter Care Teams Information Technology Instructor Relationship Specialty Start Date End Date Balta Jeffrey MD [address] [place] [address] PCP - General Internal Medicine 06/14/22 documented as of this encounter
--- OUTSIDE RECORDS SUMMARY | 2024-08-30 14:04 | XMS_ITS | Encounter Summary ---
Author Organization [employer] Address [address] [facility] 7t [place] [address] Care Team Providers Care Senior Clerk Name Role Phone Name, Balta MAYER Primary Care Provider [phone] Reason for Visit * Reason Onset Date Comments Call Back Request 08/16/2024 Encounter Details Date Type Department Care Team ([facility] Contact Info) Description 08/16/2024 Telephone [facility] [address] [place] [address] Name, MD Balta [address] [place] [phone] Call Back Request Social History Tobacco Use Types Packs/Day Years [...] * Telephone Encounter - Alfred Faria - 08/16/2024 4:14 PM EST Tc from Daughter calling in regards to tomorrow's F visit inquiring on the B12 injection. Please contact Daughter at [phone]. (Lithuanian Speaker) documented in this encounter Plan of Treatment Upcoming Encounters Date Type Department Care Team ([facility] st Contact Info) Description 09/03/2024 9:00 AM EST Office Visit [address] [address] Jaymie Adams NP [address] [place] [address] 09/03/2024 1:30 PM EST Clinical Support [address] [address] 09/19/2024 2:15 PM EDT Office Visit [address] [address] Name, MD Balta [address] [place] [address] 12/17/2024 1:30 PM EDT Office Visit [facility] [address] [place] [address] Esther Mcdonald, OD [address] [place] [address] documented as of this encounter Visit Diagnoses Not on filedocumented in this encounter Additional Health Concerns Assessment Noted Time PHQ-9 Depression Total Score: 0 09/20/19 24 1:15 PM EDT documented as of this encounter Care Teams Senior Clerk Relationship Specialty Start Date End Date Name, MD Balta [address] [place] [address] PCP - General Internal Medicine 06/14/22 [place] [facility] 08/05/24 documented as of this encounter
--- OUTSIDE RECORDS SUMMARY | 2024-08-30 14:04 | XMS_ITS | Clinical Summary ---
Author Organization [employer] Address [address] [place] [address] Care Team Providers Care Wrapper Sheeter Name Role Phone Name, Balta MAYER Primary Care Provider [phone] Allergies Active Allergy Reactions Criticality Noted Date [...] by mouth 2 times daily. 023 Active amLODIPine (Norvasc) 10 MG tablet [...] mouth in the morning. 475 mL 11 024 2024 Active cholecalciferol (Vitamin D-3) 25 MCG tablet TAKE 1 TABLET BY MOUTH EVERY MORNING 90 tablet 3 024 Active oxybutynin (Ditropan) 5 MG tabletIndicatio ns:Urge incontinence TAKE 1 TABLET BY MOUTH TWICE DAILY IN THE MORNING AND AT BEDTIME NEEDED 180 tablet 3 024 Active Alcohol Swabs (Alcohol Prep) 70 % pads USE TWICE DAILY 100 each 11 024 Active TRUEplus Lancets 33G miscIndications :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) ([facility]) TEST BLOOD SUGAR TWICE DAILY DIRECTED 100 each 5 024 Active FREESTYLE LITE test stripIndication s: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 024 Active ferrous gluconate (Fergon) 324 (38 Fe) MG tablet TAKE 1 TABLET BY MOUTH EVERY MORNING 90 tablet 1 024 Active cetirizine (ZyrTEC) 10 MG tablet TAKE 1 TABLET BY MOUTH EVERY MORNING 30 tablet 5 024 Active cyanocobalamin (Vitamin B-12) 1000 MCG/ML injection INJECT 1 ML INTRAMUSCULARLY EVERY MONTH DIRECTED 1 mL 025 Active calcium carbonate 1500 (600 Ca) MG tabletIndicatio ns:Vitamin D deficiency TAKE 1 TABLET BY MOUTH EVERY MORNING 90 tablet 3 025 Active Trulicity 1.5 MG/0.5ML solution auto-injector INJECT ONE PEN (=1.5MG) SUBCUTANEOUSLY ONCE A WEEK DIRECTED 025 Active omeprazole (PriLOSEC) [address] capsule Take 1 capsule by mouth 2 times daily. 025 Active losartan (Cozaar) 100 MG tablet Take 100 mg by mouth in the morning. 023 2024 Discontinued(M ed list cleanup (will not trigger notification to Pharmacy)) spironolactone (Aldactone) 25 MG tablet Take 25 mg by mouth Once per day. 024 2024 Discontinued(M ed list cleanup (will not trigger notification to Pharmacy)) dulaglutide (Trulicity) 1.5 MG/0.5ML solution pen-injectorInd ications:Type 2 diabetes mellitus with obesity ([facility]/HCC) ([facility]) Inject 1.5 mg under the skin 1 (one) time per week. 4 each 024 2024 Discontinued(M ed list cleanup (will not trigger notification to Pharmacy)) Linzess 145 MCG capsule Take 1 capsule by mouth in the morning. 025 2024 Discontinued(M ed list cleanup (will not trigger notification to Pharmacy)) Hospital, Clinic, or Other Facility Administered Medication [...] 11/17/2022 Type 2 diabetes mellitus with obesity ([facility]) 08/31/2022 Lentiginosis 10/13/2018 Obstructive sleep apnea syndrome 10/02/2018 Chronic diastolic heart failure 05/25/2018 Overview (09/21/2023): [address] [phone] CARDIOLOGY NAME: SAMMIE FRANCOIS DENTAL PRACTICE MANAGER: DWIGHT UNIT #: [id number] PATIENT LOCATION: EKG REFERRING PHYSICIAN: ANIYA BERNARD MD DATE OF : 41 PCP: ANIYA BERNARD MD SEX: Female DATE: 04/20/18 CARD ECHO 2D M MODE W DOPPLER COLOR [phone] SYMPTOMS,HX?: I10 ESSENTIAL HTN; R60.0 LOCALIZED EDEMA Transthoracic Echocardiogram Patient (Last, First, Middle): SAMMIE FRANCOIS E Gender: Female Date of : 1945 Age: 72 Procedure Date: 04/20/2018 Procedure Type: Transthoracic Echocardiogram Location: OP Height: 157.48 cm Weight: 81.65 kg BSA: 1.83 m2 Heart Rate: bpm BP: 144 / 78 mmHg Refrigeration Systems Installer: JEAN Martino MD: ANIYA BERNARD MD Symptoms: I10 ESSENTIAL [...] of Final JANI IYER MD Report #: [id number] Status: Signed Dict: 04/20/18/ Trans: /SUBRAH DATE PRINTED: //date// TIME PRINTED: //time// COPY TO: //ivpa// //add1// //add2// //add3// Tubular adenoma of colon [...] Encounters Date Type Department Care Team Description 08/24/2024 Telephone [facility] [address] [place] [phone] Balta Jeffrey MD Lab Orders 08/23/2024 Telephone [facility] [address] [place] [address] Kirsty Garcia MA Chart Prep 08/17/2024 Telephone [facility] [address] [place] [address] Balta Jeffrey MD Appointment Request 08/16/[address] [address] Balta Jeffrey MD Call Back Request 08/16/2024 Telephone [facility] [address] [place] [address] Balta Jeffrey MD Chart Prep 08/10/2024 Telephone [facility] [address] [place] [address] Caity Rain MD 08/10/[address] [address] Balta Jeffrey MD 08/10/2024 Orders Only [facility] [address] [place] [phone] Balta Jeffrey MD 08/06/2024 Patient Outreach [facility] [address] [place] [phone] Balta Jeffrey MD Transition Of Care (Tcm) (HDF- scheduled ) 08/06/2024 Telephone [facility] [address] [place] [phone] Balta Jeffrey MD ER Follow-up 07/29/2024 Refill [facility] [address] [place] [address] Balta Jeffrey MD Vitamin D deficiency 07/27/2024 Telephone [facility] [address] [place] [address] Balta Jeffrey MD FYI 07/26/2024 Telephone [facility] [address] [place] [address] Flores Cabrera, RN 07/24/2024 Orders Only [facility] External Provider, [facility] 07/20/2024 Telephone [facility] [address] [facility] [address] Name, MD Balta Durable Medical Equipment 07/20/2024 Community Care Management [facility] [address] [place] [address] [employer] Link, PhysicianMD 07/16/2024 Refill [facility] [address] [place] [address] Name, MD Balta 06/25/2024 10:30 AM EST Clinical Support [facility] [place] [address] Flores Cabrera, RN Cobalamin deficiency 06/25/2024 Travel from Last 3 Months Immunizations Name [...] Description 09/03/2024 9:00 AM EST Office Visit [facility] [address] [place] [address] Jaymie Aadms NP [address] [place] [address] 09/03/2024 1:30 PM EST Clinical Support [facility] [address] [place] [address] 09/19/2024 2:15 PM EDT Office Visit [facility] [address] [place] [address] Name, MD Balta [address] [place] [address] 12/17/2024 1:30 PM EDT Office Visit [facility] OPTOMETRY [address] [place], [place] [phone] Esther Mcdonald, OD [address] [place] [address] Health Maintenance Due Date Last Done Comments Diabetes: Foot Exam 11/11/1953 Eye Exam 11/11/1953 Zoster Vaccines (2 of 3) 09/12/2017 07/18/2017 RSV Patients and Patients Aged 60 years or older (1 - 1-dose 75+ series) 11/11/2018 COVID-19 Vaccine ( season) 2024 08/13/2021, 09/19/2020, 08/22/2020 Influenza Vaccine (#1) 2024 , 04/18/2019, 04/10/2018, Additional history exists Diabetes: Hemoglobin A1C 05/26/20242 024, 06/15/2023, 12/21/2022, Additional history exists Depression [...] Procedure Name Priority Date/Time Associated Diagnosis Comments BASIC METABOLIC PANEL Routine 08/30/2024 11:50 AM EST Hyperkalemia US RENAL BI Routine 08/12/2024 12:35 PM EST BASIC METABOLIC PANEL Routine 08/10/2024 10:06 PM EST BASIC METABOLIC PANEL Routine 08/10/2024 2:02 PM EST FL ESOPHAGUS BARIUM SWALLOW WITH AIR Routine [...] 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) ([facility]) ALBUMIN, RANDOM URINE W/CREATININE Routine 12/27/2023 9:45 AM EDT Hypertension, unspecified type LIPID PANEL, STANDARD Routine 12/26/2023 1:22 PM EDT Hypertension, unspecified type from Last 3 Months or Most Recently Relevant to Health Maintenance Results * (ABNORMAL) Basic Metabolic Panel (08/30/2024 11:50 AM EST) Only the most recent of4 resultswithin the time period is included. Sodium 144 135 - 145 mmol/L [facility] Potassium 5.1 3.3 - 5.1 mmol/L [facility] Chloride 111(H) 96 - 108 mmol/L [facility] Carbon Dioxide 27 22 - 29 mmol/L [facility] Anion Gap 11(L) 12 - 20 [facility] Urea Nitrogen (BUN) 25(H) 9 - 16 mg/dL [facility] Creatinine, Serum 1.20 0.5 - 1.4 mg/dL [facility] Estimated Glomerular Filt Rate 43 [facility] Comment:Chronic Kidney Disea se: Estimated GFR < 60 mL/min/1.85u0Stntma Kidney Disease: Estimated GFR < 15 mL/min/1.73m2 Glucose 82 60 - 115 mg/dL [facility] Calcium 9.9 8.4 - 10.2 mg/dL [facility] Blood Venous blood specimen / Unknown 08/30/2024 11:50 AM EST 08/30/2024 1:10 PM EST us Balta Name MD LAB BLOOD ORDERABLES Final Resul t [facility] [address] [place] [address] [phone] * US RENAL BI (08/12/2024 12:35 PM EST) Anatomical Region Laterality Modality Abdomen Ultrasound 08/12/2024 12:3 5 PM EST Narrative 08/12/2024 12:36 PM EST ? [facility] ?[address] ?[place] [address] ? Ultrasound Report ? Signed ? Patient: Sammie Francois ?MR#: MM ?? [id number] ? : 1945 ?Acct:[id number] ? Age/Sex: 78 / F ?ADM Date: 08/10/24 ? Loc: HO.IMC ?485-1 ? Attending Dr: Ernesto Morgan DO ? Ordering Physician: Ernesto Morgan DO ?? Date of Service: 08/12/24 ?? Procedure(s): US renal BI ?? Accession Number(s): [id number] ? cc: Name,Balta MAYER; Ernesto Morgan DO ? CLINICAL HISTORY: MARIA R ? US Renal ? Comparison: None ? Findings: ?? Right kidney borderline small in size and normal in echotexture, 8.6 cm ?? length. ?? Left kidney borderline small in size and normal in echotexture, 7.9 cm ?? length. ? No collecting system dilatation of either kidney. Normal color Doppler. ? IMPRESSION: ?? No acute process. ? This document has been electronically signed by: Faraz Hull MD on ?? 08/12/2024 12:35:04 ? Dictated By: ?Faraz Hull MD ? Signed By: ?<Electronically signed by Faraz Hull MD in OV> ? 08/12/24 1236 ? DD/ 1235 ? TD/TT: 08/12/24 1235 ? Stage Technician: ? Procedure Note Donneris, Image - 08/12/2024 [place] [address] Ultrasound Report Signed Patient: Sammie Francois EMR#: [id number] : 4Acct:[id number] Age/Sex: 78 / FADM Date: 08/10/24 Loc: [facility] 485-[address]: Ernesto Morgan DO Ordering Physician: Ernesto Morgan DO Date of Service: 08/12/24 Procedure(s): US renal BI Accession Number(s): [id number] cc: Name,Balta MAYER; Ernesto Morgan DO CLINICAL HISTORY: MARIA R US Renal Comparison: None Findings: Right kidney borderline small in size and normal in echotexture, 8.6 cm length. Left kidney borderline small in size and normal in echotexture, 7.9 cm length. No collecting system dilatation of either kidney. Normal color Doppler. IMPRESSION: No acute process. This document has been electronically signed by: Faraz Hull MD on 08/12/2024 12:35:04 Dictated By: Faraz Hull MD Signed By: <Electronically signed by Faraz Hull MD in OV> 08/12/24 1236 DD/ 1235 TD/TT: 08/12/24 1235 Stage Technician: [facility] External Provider IMG US PROCEDURES Final Result * FL Esophagus Barium Swallow w/Air (07/30/2024 7:00 AM EST) Anatomical Region Laterality Modality Head, Neck Radiographic Melissa ging 07/30/2024 7:00 AM EST Narrative 07/31/2024 9:06 AM EST ? [facility] ?[address] ?[place] [address] ? Fluoroscopy Report ? Signed ? Patient: Fischer Mike,Jayne ?MR#: MM ?? [id number] ? : 1945 ?Acct:[id number] ? Age/Sex: 78 / F ?ADM Date: 07/24/24 ? Loc: HO.S3 ?387-1 ? Attending Dr: Renan Melton MD ? Ordering Physician: Renan Melton MD ?? Date of Service: 07/30/24 ?? Procedure(s): FL barium swallow with air ?? Accession Number(s): [id number] ? cc: Renan Melton MD; Name,Balta MAYER [...] Acuna MD ??07/31/2024 09:04 AM EST RP ? Dictated By: ?Gabriel Ribeiro ? Signed By: ?<Electronically signed by Gabriel Ribeiro in OV> ? 01/21/25 0904 ?<Electronically signed by Troy Acuna MD in OV> ? 07/31/24 0906 ? DD/ 0700 ? TD/TT: 07/30/24 1110 ? Stage Technician: ? Procedure Note Tonyter, Image - 07/31/2024 [place] [address] Fluoroscopy Report Signed Patient: Sammie Francois EMR#: [id number] : 4Acct:[id number] Age/Sex: 78 / FADM Date: 07/24/24 Loc: HO.S3 387-[address]: Renan Melton MD Ordering Physician: Renan Melton MD Date of Service: 07/30/24 Procedure(s): FL barium swallow with air Accession Number(s): [id number] cc: Renan Melton MD; Name,Balta MAYER EXAMINATION: XR FLUOROSCOPY UPPER GI WITH AIR CLINICAL INFORMATION: Dysphagia. COMPARISON: Barium swallow 2016. TECHNIQUE: Fluoroscopic air contrast upper GI examination [...] by: Troy Acuna MD 07/31/2024 09:04 AM [facility] Dictated By: Gabriel Ribeiro Signed By: <Electronically signed by Gabriel Ribeiro in OV> 07/31/24 0904 <Electronically signed by Troy Acuna MD in OV> 07/31/24 0906 DD/ 0700 TD/TT: 07/30/24 1110 Stage Technician: us [facility] Exter nal Provider IMG FLUOROSCOPY PROCEDURES Edited Result - Final * Lactic Acid (07/24/2024 9:08 PM EST) Lactic Acid 1.0 0.5 - 2.0 mmol/L [facility] 07/24/2024 9:08 PM EST 07/24/2024 9:17 PM EST us Generic External Data Provider LAB BLOOD ORDERAB LES Final Result Performing Organization Address City/State/[facility] Co de Phone Number [facility] [address] [place] [address] [phone] * CT Abdomen Pelvis w/o Contrast (07/24/2024 9:06 PM EST) Anatomical Region Laterality Modality Body, Pelvis, Abdomen Computed T omography 07/24/2024 9:06 PM EST Narrative 07/24/2024 9:08 PM EST ? [facility] ?[address] ?[place] [address] ? CT Scan Report ? Signed ? Patient: Sammie Francois ?MR#: MM ?? [id number] ? : 1945 ?Acct:[id number] ? Age/Sex: 78 / F ?ADM Date: 07/24/24 ? Loc: HO.ED ? Attending Dr: ? Ordering Physician: Vida Regalado CNP ?? Date of Service: 07/24/24 ?? Procedure(s): CT abdomen pelvis wo IV con ?? Accession Number(s): [id number] ? cc: Vida Regalado BIOLOGICS SPECIALIST; [facility] ? Report Number: ?? [id number]: Total DLP = ??680.00 mGy-cm ? CLINICAL [...] ? DD/ 05 ? TD/TT: 07/24/242105 ? Stage Technician: ? Procedure Note Gisselle, Image - 07/24/[address] [address] [address] Scan Report Signed Patient: Sammie Francois EMR#: [id number] : 4Acct:[id number] Age/Sex: 78 / FADM Date: 07/24/24 Loc: HO.ED Attending Dr: Ordering Physician: Vida Regalado CNP Date of Service: 07/24/24 Procedure(s): CT abdomen pelvis wo IV con Accession Number(s): [id number] cc: Vida Regalado CNP; [facility] Report Number: [id number]: Total DLP = 680.00 mGy-cm CLINICAL HISTORY: [...] in OV> 07/24/242106 DD/ 05 TD/TT: 07/24/242105 Stage Technician: [facility] External Provider IMG CT PROCEDURES Final Result * Glucose, Whole Blood (07/24/2024 8:59 PM EST) Glucose, Whole Blood 70 60 - 115 mg/dL [facility] Comment:METER #: [id number] 07/24/2024 8:59 PM EST 07/24/2024 9:02 PM EST Generic External Data Provider LAB BLOOD ORDERAB LES Final Result [facility] [address] [place] [phone] * SARS-CoV-2 RNA, Influenza A/B, and RSV RNA, Ql NAAT (07/24/2024 7:20 PM EST) Pathologist [facility] Influenza A PCR NEGATIVE Negative [facility] Influenza B PCR NEGATIVE Negative [facility] Resp Syncy Virus RNA Qual PCR NEGATIVE Negative [facility] SARS COV2 PCR NEGATIVE Negative [facility] Comment:All test results mus t [...] use by authorized laboratories.Testing performed on the [employer] GeneXpert utilizingreal-time RT-PCR.All SARS CoV2 and positive influenza A/B results arereported to [facility]. 07/24/2024 7:20 PM EST 07/24/2024 7:22 PM EST us Generic External Data Provider LAB MICROBIOLOGY - GENERAL ORDERABLES Final Result [facility] [address] [place] [phone] * (ABNORMAL) CBC auto differential (07/24/2024 7:20 PM EST) Pathologist [facility] White Blood Count 6.5 4.8 - 10.8 X10*3/uL [facility] Red Blood Count 4.09(L) 4.20 - 5.50 X10*6/uL [facility] Hemoglobin 11.3(L) 12.0 - 16.0 g/dl [facility] Hematocrit 34.5(L) 37.0 - 47.0 % [facility] Mean Corpuscular Volume 84.4 80.0 - 98.0 fL [facility] Mean Corpuscular Hemoglobin 27.6 27.0 - 33.0 pg [facility] Mean Corpuscular HGB Conc 32.8 31.0 - 35.0 g/dl [facility] Red Cell Distribution Width 16.1(H) 11.0 - 16.0 % [facility] Platelet Count 210 160 - 400 X10*3/uL [facility] Mean Platelet Volume 10.6 9.4 - 12.3 fL [facility] Neutrophils Percent Auto 72.3 45 - 73 % [facility] Imm Gran Pct Auto 0.6(H) 0.0 - 0.4 % [facility] Lymphocytes Percent Auto 19.9(L) 20 - 40 % [facility] Monocytes Percent Auto 5.4 2 - 11 % [facility] Eosinophils Percent Auto 1.5 0 - 4 % [facility] Basophils Percent Auto 0.3 0 - 2 % [facility] NRBC Pct Auto 0.0 0.0 - 0.2 /100WBC [facility] Neutrophils Absolute Auto 4.7 2.0 - 8.3 x10*3/uL [facility] Imm Gran Abs Auto 0.04(H) 0.00 - 0.03 X10*3/uL [facility] Lymphocytes Absolute Auto 1.3 1.2 - 4.9 X10*3/uL [facility] Monocytes Absolute Auto 0.4 0.1 - 1.2 X10*3/uL [facility] Eosinophils Absolute Auto 0.1 0.0 - 0.4 X10*3/uL [facility] Basophils Absolute Auto 0.0 0.0 - 0.2 X10*3/uL [facility] NRBC Abs Auto 0.000 0.0 - 0.012 X10*3/uL [facility] 07/24/2024 7:20 PM EST 07/24/2024 7:22 PM EST us Generic External Data Provider LAB BLOOD ORDERAB LES Final Result [facility] [address] [place] [address] [phone] * Magnesium (07/24/2024 7:20 PM EST) Magnesium 2.4 1.6 - 2.6 mg/dL [facility] 07/24/2024 7:20 PM EST 07/24/2024 7:22 PM EST us Generic External Data Provider LAB BLOOD ORDERAB LES Final Result Performing Organization Address [facility]/ZIP Co de Phone Number [facility] [address] [place] [phone] * Lipase (07/24/2024 7:20 PM EST) Pathologist [facility] Lipase 38 8 - 78 U/L [facility] 07/24/2024 7:20 PM EST 07/24/2024 7:22 PM EST Generic External Data Provider LAB BLOOD ORDERAB LES Final Result Performing Organization Address [facility] Co de Phone Number [facility] [address] [place] [phone] * (ABNORMAL) Comprehensive Metabolic Panel (07/24/2024 7:20 PM EST) Pathologist [facility] Sodium 139 135 - 145 mmol/L [facility] Potassium 6.3(HH) 3.3 - 5.1 mmol/L [facility] Comment:Critical value for t est(s): POTS Results called to and readback by: ALONZO Person calling:YASSINE Date: 07/24/24 Time:1952 Chloride 110(H) 96 - 108 mmol/L [facility] Carbon Dioxide 25 22 - 29 mmol/L [facility] Anion Gap 10(L) 12 - 20 [facility] Urea Nitrogen (BUN) 51(H) 9 - 16 mg/dL [facility] Creatinine, Serum 2.29(H) 0.5 - 1.4 mg/dL [facility] Creatinine Clr Calc Pharmacy 19.0 [facility] Comment:Provided height and weight: 152.4 cm,85.4 kg.eGFR (calculated from the MDRD study equation) and eCrCl(calculated from the Cockcroft-Gault equation) are based ondifferent parameters and may not yield comparable results.If eCrCl result is absurd, please check patient'sheight/weight. Estimated Glomerular Filt Rate 21 [facility] Comment:Chronic Kidney Disea se: Estimated GFR < 60 mL/min/1.86h4Gklccr Kidney Disease: Estimated GFR < 15 mL/min/1.73m2 Glucose 97 60 - 115 mg/dL [facility] Calcium 9.8 8.4 - 10.2 mg/dL [facility] Bilirubin, Total 0.3 0.0 - 1.0 mg/dL [facility] Aspartate Amino Transferase 30 5 - 31 U/L [facility] Alanine Aminotransferase 30 0 - 31 U/L [facility] Total Protein 7.6 6.5 - 8.0 g/dL [facility] Albumin Level 4.1 3.5 - 5.0 g/dL [facility] Alkaline Phosphatase 193(H) 39 - 117 U/L [facility] 07/24/2024 7:20 PM EST 07/24/2024 7:22 PM EST us Generic External Data Provider LAB BLOOD ORDERAB LES Final Result [facility] [address] [place] [address] [phone] * (ABNORMAL) Urinalysis, Complete, with Reflex to Culture (07/24/2024 5:15 PM EST) Color Urine Yellow [facility] Appearance Urine Clear [facility] PH 7.0 5.0 - 9.0 [facility] Glucose Urine UA 250(A) Negative mg/dL [facility] Urine Blood Negative Negative [facility] Specific [place] - Urine <=1.005 1.005 - 1.025 [facility] Urine Protein Negative Neg-Trace mg/dL [facility] Urine Ketones Negative Negative mg/dL [facility] Nitrite Urine Negative Negative [facility] Leukocyte Esterase Urine Moderate (2+)(A) Negative [facility] RBC Urine 3-5(A) 0 - 2 /HPF [facility] Urine WBC 11-20(A) 0 - 5 /HPF [facility] Urine Squamous Epithelial Cell 0-2 0 - 2 /HPF [facility] Urine Bacteria 4+ None Seen [facility] Hyaline Casts, Urine 3-5 0 - 2 /LPF [facility] 07/24/2024 5:15 PM EST 07/24/2024 5:19 PM EST Narrative [facility] - 07/24/2024 5:50 PM EST Urine, Clean Catch us Generic External Data Provider LAB URINE ORDERAB LES Final Result Performing Organization Address City/State/[facility] Co de Phone Number [facility] [address] [place] [phone] * POCT HGB A1C (02/24/2024 11:53 AM EDT) Hemoglobin A1C 5.7 4.0 - 6.0 % Blood 02/24/2024 11:5 3 AM EDT us Balta Name POINT OF CARE TEST ENTER/EDIT OR DERABLES Final Result * Albumin, Random Urine W/Creatinine (12/27/2023 9:45 AM EDT) Creatinine, Urine 90.13 mg/dL [facility] Microalbumin Urine 11.0 mg/L [facility] Microalbum Creatinine Ratio Ur 12.2 <30 ug/mg cr [facility] Comment:Albumin/Creatinine R atio Reference Ranges: Normal: < 30 ug/mg creatinine Microalbuminuria: 30 - 300 ug/mg creatinineClinical Albuminuria: > 300 ug/mg creatinine Urine (Urine, Random) 12/27/2023 9:45 AM EDT 12/27/2023 11:23 AM EDT us Balta Jeffrey MD LAB URINE ORDERABLES Final Resul t Performing Organization Address [facility] Co de Phone Number [facility] [address] [place] [phone] * Lipid Panel, Standard (12/26/2023 1:22 PM EDT) Triglycerides 52 <150 mg/dL [facility] Comment:Desirable Triglyceri de: less than 150 mg/dLBorderline High Triglyceride 150-199 mg/dLHigh Triglyceride: 200-499 mg/dLVery High Triglyceride: greater than or equal to 5OO mg/dL Cholesterol 169 <200 mg/dL [facility] [facility] Comment:Desirable Cholestero l: less than 200 mg/dLBorderline High Cholesterol: 200-239 mg/dLHigh Cholesterol: greater than 239 mg/dL LDL Cholesterol Calculated 92 <100 mg/dL [facility] Comment:Desirable LDL: less than 100 mg/dLNear Optimal/Above Optimal LDL: 110- 129 mg/dLBorderline High LDL: 130-159 mg/dLHigh LDL: 160-189 mg/dLVery High LDL: greater than or equal to 190 mg/dL HDL Cholesterol 67 >40 mg/dL [facility] Comment:Desirable HDL: great er than 40 mg/dL Note: This HDL assay may give artificially low results in patients with liver disease. Blood Venous blood specimen / Unknown 12/26/2023 1:22 PM EDT 12/26/2023 3:56 PM EDT us Balta Jeffrey MD LAB BLOOD ORDERABLES Final Resul t Performing Organization Address [facility]/ZIP Co de Phone Number [facility] [address] [place] [address] [phone] from Last 3 Months or Most Recently Relevant to Health Maintenance Insurance [facility] Care Teams Wrapper Sheeter Relationship Specialty Start Date End Date Name, MD Balta [address] [place] [address] PCP - General Internal Medicine 06/14/22 [facility] 08/05/24
--- OUTSIDE RECORDS SUMMARY | 2024-08-30 14:04 | XMS_ITS | Encounter Summary ---
Author Organization [employer] Address [address] [facility] [address] [facility] [address] 7t [place] [address] Care Team Providers Care Foot Setter Name Role Phone Name, Balta MAYER Primary Care Provider [phone] Reason for Visit * Reason Onset Date Comments Chart Prep 08/23/2024 Encounter Details Date Type Department Care Team (Late st Contact Info) Description 08/23/2024 Telephone [facility] [address] [place] [address] Kirsty Garcia MA Chart Prep Social History Tobacco Use Types Packs/Day Years [...] your housing situation today? I have billy sing 09/20/[address] you li [...] encounter Miscellaneous Notes * Telephone Encounter - Kirsty Garcia MA - 08/23/2024 1:38 PM EST Chart Prep Labs: not done Images: done Vaccines due: Covid, Flu, RSV, Shingles Referrals: complete Screenings: none Overdue care gaps: A1C, Glucose, SDOH, PHQ-9 documented in this encounter Plan of Treatment Upcoming Encounters Date Type Department Care Team (Late st Contact Info) Description 09/03/2024 9:00 AM EST Office Visit [facility] [address] [place] [address] Jaymie Adams NP 230 [place] [address] 09/03/2024 1:30 PM EST Clinical Support [address] [address] 09/19/2024 2:15 PM EDT Office Visit [address] [address] Name, MD Balta 230 [place] [address] 12/17/2024 1:30 PM EDT Office Visit [facility] OPT[facility] [address] [place] [address] Harry Esther, OD 230 [place] [address] documented as of this encounter Visit Diagnoses Not on filedocumented in this encounter Additional Health Concerns Assessment Noted Time PHQ-9 Depression Total Score: 0 09/20/19 24 1:15 PM EDT documented as of this encounter Care Teams Foot Setter Relationship Specialty Start Date End Date Name, MD Balta 230 [place] [address] PCP - General Internal Medicine 06/14/22 [facility] 08/05/24 documented as of this encounter
--- OUTSIDE RECORDS SUMMARY | 2024-08-30 14:04 | XMS_ITS | Encounter Summary ---
Author Organization [employer] Address [address] [facility] [address] 7[address] [place] [address] Care Team Providers Care Tanning Wheel Operator Name Role Phone Name, Balta MAYER Primary Care Provider [phone] Encounter Details Date Type Department Care Team ([facility] st Contact Info) Description 08/10/2024 Telephone [facility] [address] [place] [address] Name, MD Balta [address] [place] [address] Social History Tobacco Use Types Packs/Day Years [...] encounter Miscellaneous Notes * Telephone Encounter - Balta Jeffrey MD - 08/10/2024 4:08 PM EST Was paged by answering service at 3:54 pm regarding critical result of potassium of 6.8 drawn todayat 2:02 pm. Only phone # available in chart doesn't accept voice mail and no one answers .Texts also left w/o response. ( PCP ) will stop by patient`s home to notify patient and or family member that sheneeds urgent eval at ER. documented in this encounter Plan of Treatment Upcoming Encounters Date Type Department Care Team (Late st Contact Info) Description 09/03/2024 9:00 AM EST Office Visit [address] [address] Jaymie Adams NP 230 [place] [address] 09/03/2024 1:30 PM EST Clinical Support [address] [address] 09/19/2024 2:15 PM EDT Office Visit [address] [address] Balta Jeffrey MD [address] [place], [place] [phone] 12/17/2024 1:30 PM EDT Office Visit [facility] OPTOMETRY [address], [place] [phone] Esther Mcdonald, OD 230 [place], [place] [phone] documented as of this encounter Visit Diagnoses Not on filedocumented in this encounter Additional Health Concerns Assessment Noted Time PHQ-9 Depression Total Score: 0 09/20/19 24 1:15 PM EDT documented as of this encounter Care Teams Tanning Wheel Operator Relationship Specialty Start Date End Date Name, MD Balta [address] [place], [place] [phone] PCP - General Internal Medicine 06/14/22 [facility] 08/05/24 documented as of this encounter
--- OUTSIDE RECORDS SUMMARY | 2024-08-30 14:04 | XMS_ITS | Encounter Summary ---
Author Organization [employer] Address [address] [facility] 7t [place] [address] Care Team Providers Care Gas Stove Servicer Helper Name Role Phone Name, Balta MAYER Primary Care Provider [phone] Reason for Visit * Reason Onset Date Comments Appointment Request 08/17/2024 Encounter Details Date Type Department Care Team ([facility] st Contact Info) Description 08/17/2024 Telephone [facility] MED[facility]INE [address] [place] [address] Name, MD Balta [address] [place] [address] Appointment Request Social History Tobacco Use Types Packs/Day [...] Telephone Encounter - Flores Cabrera RN - 08/22/2024 9:07 AM EST TC placed to [facility] to inform provider put in labs for pt to have done before HDF. No answer, LVM informing lab orders were placed for pt to have done before HDF. TC placed to pt via [facility] per diem interpreter (Stefano ID#[id number]) to inform that labs were placed to be done before HDF on 09/03/24. No answer, LVM to call office back and ask to speak to blue team nurses. * Addendum Note - Balta Elena MD - 08/21/2024 5:08 PM ESTAddended by: BALTA ELENA on: 08/21/2024 05:08 PM Modules accepted: Orders * Telephone Encounter - Balta Elena MD - 08/21/2024 5:08 PM EST Order for repeat BMP is in * Telephone Encounter - Cindy Ly RN - 08/21/2024 4:57 PM EST T/C to pt via [employer] Super[employer] #[id number]. Pt agrees to r/s HDF with Blue team provider 09/03/24 at 9a. T/C returned to ALEJO Cruz. No answer, v/m left advising of rescheduled appt and that request for labs will be sent to pcp for review. * Telephone Encounter - Adrian Lara - 08/21/2024 3:10 PM EST TC from Kavitha with [facility] wanting to Reschedule pt's HDF visit . Also would like to discuss if pt should be doing labs for potassium levels . * Telephone Encounter - Flores Cabrera RN - 08/17/2024 10:15 AM EST TC placed via [employer] per diem interpreter (ID#[id number]) to r/s HDF [facility] 07/24-08/02 Dx:Acute Dysphagia from 08/17/24. No answer, LVM to call office back and ask to speak to the blue team nurses. * Telephone Encounter - [place] Pardo - 08/17/2024 8:08 AM EST Tc from pt requesting to r/s Apt for 08/17/24. Contact pt at [phone] documented in this encounter Plan of Treatment Upcoming Encounters Date Type Department Care Team (Late st Contact Info) Description 09/03/2024 9:00 AM EST Office Visit [facility] MED[facility]INE 230 [place] [address] Jaymie Adams NP [address] [place] [address] 09/03/2024 1:30 PM EST Clinical Support [facility] [address] [facility] [place] [address] 09/19/2024 2:15 PM EDT Office Visit [facility] [address] [facility] [place] [address] Name, MD Balta [address] [facility] [place] [address] 12/17/2024 1:30 PM EDT Office Visit [facility] OPTOMETRY [address] [place] [address] Harry, Esther, OD [address] [facility] [place] [address] documented as of this encounter Procedures Procedure Name Priority Date/Time Associated Diagnosis Comments BASIC METABOLIC PANEL Routine 08/30/2024 11:50 AM EST Hyperkalemia documented in this encounter Results * (ABNORMAL) Basic Metabolic Panel (08/30/2024 11:50 AM EST) Sodium 144 135 - 145 mmol/L [facility] Potassium 5.1 3.3 - 5.1 mmol/L [facility] Chloride 111(H) 96 - 108 mmol/L [facility] Carbon Dioxide 27 22 - 29 mmol/L [facility] Anion Gap 11(L) 12 - 20 [facility] Urea Nitrogen (BUN) 25(H) 9 - 16 mg/dL [facility] Creatinine, Serum 1.20 0.5 - 1.4 mg/dL [facility] Estimated Glomerular Filt Rate 43 [facility] Comment:Chronic Kidney Disea se: Estimated GFR < 60 mL/min/[id number] Kidney Disease: Estimated GFR < 15 mL/min/1.73m2 Glucose 82 60 - 115 mg/dL [facility] Calcium 9.9 8.4 - 10.2 mg/dL [facility] Blood Venous blood specimen / Unknown 08/30/2024 11:50 AM EST 08/30/2024 1:10 PM EST us Balta Name LAB BLOOD ORDERABLES Final Resul t [facility] [address] [place] [address] [phone] documented in this encounter Visit Diagnoses Diagnosis Hyperkalemia- Primary Hyperpotassemia documented in this encounter Additional Health Concerns Assessment Noted Time PHQ-9 Depression Total Score: 0 09/20/19 24 1:15 PM EDT documented as of this encounter Care Teams Gas Stove Servicer Helper Relationship Specialty Start Date End Date Name, MD Balta [address] [place] [address] PCP - General Internal Medicine 06/14/22 [facility] 08/05/24 documented as of this encounter
--- OUTSIDE RECORDS SUMMARY | 2024-08-30 14:04 | XMS_ITS | Encounter Summary ---
Author Organization [employer] Address [address] 7[address] [place] [address] Care Team Providers Care Design Analyst Name Role Phone Name, Balta MAYER Primary Care Provider [phone] Reason for Visit * Reason Comments Med Refill Encounter Details Date Type Department Care Team (Late st Contact Info) Description 03/05/2024 Refill [facility] [address] [place], [place] [phone] Name, MD Balta [address] [place] [address] Social History Tobacco Use Types Packs/Day Years [...] Description 09/03/2024 9:00 AM EST Office Visit [facility] [address] [place] [address] Jaymie Adams NP [address] [place] [address] 09/03/2024 1:30 PM EST Clinical Support [facility] [address] [place] [address] 09/19/2024 2:15 PM EDT Office Visit [facility] [address] [place] [address] Name, MD Balta [address] [place] [address] 12/17/2024 1:30 PM EDT Office Visit [facility] OPTOMETRY [address] [place] [address] Esther Mcdonald, OD [address] [place] [address] documented as of this encounter Visit Diagnoses Not on filedocumented in this encounter Additional Health Concerns Assessment Noted Time PHQ-9 Depression Total Score: 0 03/12/20 24 1:15 PM EDT documented as of this encounter Care Teams Design Analyst Relationship Specialty Start Date End Date Name, MD Balta [address] [place] [address] PCP - General Internal Medicine 06/14/22 [facility] 08/05/24 documented as of this encounter
--- OUTSIDE RECORDS SUMMARY | 2024-08-30 14:04 | XMS_ITS | Encounter Summary ---
Author Organization [employer] Address [address] 7[address] [place] [address] Care Team Providers Care Crew Mess Attendant Name Role Phone Name, Balta MAYER Primary Care Provider [phone] Encounter Details Date Type Department Care Team (Late st Contact Info) Description 04/20/[address] [facility] [address] [place] [address] Name, MD Balta [address] [place] [address] Social History Tobacco Use Types Packs/Day Years [...] 09/03/2024 9:00 AM EST Office Visit [facility] [address] [place] [address] Jaymie Adams NP 230 [place] [address] 09/03/2024 1:30 PM EST Clinical Support [address] [address] 09/19/2024 2:15 PM EDT Office Visit [facility] [address] [place] [address] NameBalta MD 230 [place] [address] 12/17/2024 1:30 PM EDT Office Visit [facility] OPTOMETRY [address] [place] [address] Harry, Esther, OD 230 [place] [address] documented as of this encounter Visit Diagnoses Not on filedocumented in this encounter Additional Health Concerns Assessment Noted Time PHQ-9 Depression Total Score: 4 08/31/19 23 10:26 AM EST documented as of this encounter Care Teams Crew Mess Attendant Relationship Specialty Start Date End Date Balta Jeffrey MD [address] [place] [address] PCP - General Internal Medicine 06/14/22 [facility] [place] [facility] 08/05/24 documented as of this encounter
--- OUTSIDE RECORDS SUMMARY | 2024-08-30 14:04 | XMS_ITS | Encounter Summary ---
Author Organization [employer] Address [address] 7[address] [place] [address] Care Team Providers Care Implementation Director Name Role Phone Name, Balta MAYER Primary Care Provider [phone] Reason for Visit * Reason Onset Date Comments Chart Prep 08/16/2024 Encounter Details Date Type Department Care Team (Late st Contact Info) Description 08/16/2024 Telephone [facility] [address] [place] [address] Name, MD Balta [address] [place] [address] Chart Prep Social History Tobacco Use Types [...] encounter Miscellaneous Notes * Telephone Encounter - Tamiko Rodriguez MA - 08/16/2024 2:28 PM EST Chart Prep Labs: done Images: done Vaccines due: Covid, Flu, RSV, and Shingles Referrals: Completed Screenings: Foot Exam Overdue care gaps: A1C, Glucose, SDOH, and PHQ-9 documented in this encounter Plan of Treatment Upcoming Encounters Date Type Department Care Team (Late st Contact Info) Description 09/03/2024 9:00 AM EST Office Visit [address] [address] Jaymie Adams NP [address] [place] [address] 09/03/2024 1:30 PM EST Clinical Support [address] [address] 09/19/2024 2:15 PM EDT Office Visit [address] [address] Name, MD Balta [address] [place] [address] 12/17/2024 1:30 PM EDT Office Visit [facility] OPTOMETRY [address] [place], [place] [phone] Esther Mcdonald, OD [address] [place] [address] documented as of this encounter Visit Diagnoses Not on filedocumented in this encounter Additional Health Concerns Assessment Noted Time PHQ-9 Depression Total Score: 0 09/20/19 24 1:15 PM EDT documented as of this encounter Care Teams Implementation Director Relationship Specialty Start Date End Date Name, MD Batla [address] [place] [address] PCP - General Internal Medicine 06/14/22 [facility] 08/05/24 documented as of this encounter
--- OUTSIDE RECORDS SUMMARY | 2024-08-30 14:04 | XMS_ITS | Encounter Summary ---
Author Organization [employer] [facility] Address [address] [place] [address] 7t [place] [address] Care Team Providers Care Tuckpointer Cleaner Caulker Name Role Phone Name, Balta MAYER Primary Care Provider [phone] Encounter Details Date Type Department Care Team (Late st Contact Info) Description 06/14/2022 Orders Only [address] [address] Audrey Mcginnis, JERROD Social History Tobacco Use [...] Description 09/03/2024 9:00 AM EST Office Visit [address] [address] Jaymie Admas NP [address] [place] [address] 09/03/2024 1:30 PM EST Clinical Support [address] [address] 09/19/2024 2:15 PM EDT Office Visit [address] [address] Wojciech, MD Balta [address] [place] [address] 12/17/2024 1:30 PM EDT Office Visit [facility] OPTOMETRY [address] [place] [address] Esther Mcdonald, OD [address] [place] [address] documented as of this encounter Visit Diagnoses Not on filedocumented in this encounter Care Teams Tuckpointer Cleaner Caulker Relationship Specialty Start Date End Date Name, MD Balta [address] [place] [address] PCP - General Internal Medicine 06/14/22 [facility] 08/05/24 documented as of this encounter
--- OUTSIDE RECORDS SUMMARY | 2024-08-30 14:04 | XMS_ITS | Encounter Summary ---
Author Organization [employer] Address [address] [facility] 7t [place] [address] Care Team Providers Care Car Lubricator Name Role Phone Name, Balta MAYER Primary Care Provider [phone] Reason for Visit * Reason Onset Date Comments Lab Orders 08/24/2024 Encounter Details Date Type Department Care Team (Late st Contact Info) Description 08/24/2024 Telephone [facility] MEDICINE [address] [place] [address] Name, MD Balta [address] [place] [address] Lab Orders Social History Tobacco Use Types Packs/Day Years [...] Telephone Encounter - Flores Cabrera RN - 08/24/2024 2:51 PM EST TC placed to Kavitha from [facility] regarding blood work being done on pt. Kavitha asking if provider wanted [facility] to draw labs or if the pt was advised of different instructions. RN informed Kavitha that the provider put in an order for BMP to be completed before pt appointment on 09/03/24, but no instruction on if provider wanted [facility] to draw labs. Kavitha with [facility] states they will draw BMP. * Telephone Encounter - Luis Boston - 08/24/2024 1:08 PM EST Tc from Kavitha from [facility] requesting a call back in regards to bloodwork being done on pt. Kavitha:[phone] documented in this encounter Plan of Treatment Upcoming Encounters Date Type Department Care Team (Late st Contact Info) Description 09/03/2024 9:00 AM EST Office Visit [facility] [address] [place] [address] Jaymie Adams, HUMBERTO [address] [place] [address] 09/03/2024 1:30 PM EST Clinical Support [facility] [address] [place] [address] 09/19/2024 2:15 PM EDT Office Visit [facility] [address] [place] [address] Name, MD Balta [address] [place] [address] 12/17/2024 1:30 PM EDT Office Visit [facility] OPTOMETRY [address] [place] [address] HarryEsther faustin, OD [address] [place] [address] documented as of this encounter Visit Diagnoses Not on filedocumented in this encounter Additional Health Concerns Assessment Noted Time PHQ-9 Depression Total Score: 0 09/20/19 1:15 PM EDT documented as of this encounter Care Teams Car Lubricator Relationship Specialty Start Date End Date Name, MD Balta [address] [place] [address] PCP - General Internal Medicine 06/14/22 [facility] 08/05/24 documented as of this encounter
--- OUTSIDE RECORDS SUMMARY | 2024-08-30 14:04 | XMS_ITS | Encounter Summary ---
Author Organization [employer] Address [address] [place] [address] Care Team Providers Care Medical Investigator Name Role Phone Name, Balat MAYER Primary Care Provider [phone] Encounter Details Date Type Department Care Team (Late st Contact Info) Description 08/10/2024 Telephone [facility] [address] [place] [address] Caity Rain MD [address] [place] [address] Social History Tobacco Use Types Packs/Day Years [...] your housing situation today? I have billy itzel 09/20/[address] you li [...] encounter Miscellaneous Notes * Telephone Encounter - Caity Rain MD - 08/10/2024 7:22 PM EST Patient contact finally successful, daughter will bring her to [facility] for urgent eval and treatmentof hyperkalemia of 6.8 Patient was asymptomatic. documented in this encounter Plan of Treatment Upcoming Encounters Date Type Department Care Team (Late st Contact Info) Description 09/03/2024 9:00 AM EST Office Visit [facility] MEDICINE [address] [place] [address] Jaymie Adams NP [address] [place] [address] 09/03/2024 1:30 PM EST Clinical Support [facility] [address] [place] [address] 09/19/2024 2:15 PM EDT Office Visit [facility] [address] [place] [address] Name, MD Balta 230 [place] [address] 12/17/2024 1:30 PM EDT Office Visit [facility] OPTOMETRY [address] [place] [address], [place] [address] Harry, Esther, OD [address] [place] [address] documented as of this encounter Visit Diagnoses Not on filedocumented in this encounter Additional Health Concerns Assessment Noted Time PHQ-9 Depression Total Score: 0 09/20/19 24 1:15 PM EDT documented as of this encounter Care Teams Medical Investigator Relationship Specialty Start Date End Date Name, MD Balta [address] [place] [address] PCP - General Internal Medicine [facility]22 [facility] documented as of this encounter
--- OUTSIDE RECORDS SUMMARY | 2024-08-30 14:04 | XMS_ITS | Encounter Summary ---
Author Organization [employer] Address [address] [facility] 7t [place] [address] Care Team Providers Care Geospatial Applications Developer Name Role Phone Name, Balta MAYER Primary Care Provider [phone] Encounter Details Date Type Department Care Team ([facility] st Contact Info) Description 08/10/2024 Orders Only [facility] [address] [place] [address] Name, MD Balta 230 [place] [address] Social History Tobacco Use Types Packs/Day Years [...] AM EDT documented as of this encounter Progress Notes * Cindy Ly RN - 08/10/2024 3:54 PM EST Pt is currently admitted at [facility]. * Cindy Ly RN - 08/10/2024 3:54 PM EST Per review of [facility], pt discharged home 08/13/24 with resumption of VNA. No discharge note yet available. Pt is already scheduled with pcp for HDF on 08/17/24. documented in this encounter Plan of Treatment Upcoming Encounters Date Type Department Care Team (Late st Contact Info) Description 09/03/2024 9:00 AM EST Office Visit [facility] [address] [place] [address] Jaymie Adams NP 230 [place] [address] 09/03/2024 1:30 PM EST Clinical Support [address] [address] 09/19/2024 2:15 PM EDT Office Visit [address] [address] Name, MD [facility]ta [address] [facility] [place] [address] 12/17/2024 1:30 PM EDT Office Visit [facility] [address] [place] [address] Harry Esther, OD [address] [facility] [place] [address] documented as of this encounter Procedures Procedure Name Priority Date/Time Associated Diagnosis Comments US RENAL BI Routine 08/12/2024 12:35 PM EST BASIC METABOLIC PANEL Routine 08/10/2024 10:06 PM EST BASIC METABOLIC PANEL Routine 08/10/2024 2:02 PM EST documented in this encounter Results * US RENAL BI (08/12/2024 12:35 PM EST) Anatomical Region Laterality Modality Abdomen Ultrasound 08/12/2024 12:3 5 PM EST Narrative 08/12/2024 12:36 PM EST ? [facility] ?[address] ?[place] [address] ? Ultrasound Report ? Signed ? Patient: Victorina Francois ?MR#: [id number] ?? [id number] ? : 1945 ?Acct:[id number] ? Age/Sex: 78 / F ?ADM Date: 08/10/24 ? Loc: HO.[facility] ?485-1 ? Attending Dr: Ernesto Morgan DO ? Ordering Physician: Ernesto Morgan DO ?? Date of Service: 08/12/24 ?? Procedure(s): US renal BI ?? Accession Number(s): [id number] ? cc: Balta Jeffrey MD; Ernesto Morgan DO ? CLINICAL HISTORY: MARIA [...] document has been electronically signed by: Faraz uHll MD on ?? 08/12/2024 12:35:04 ? Dictated By: ?Faraz Hull MD ? Signed By: ?<Electronically signed by Faraz Hull MD in OV> ? 08/12/24 1236 ? DD/ 1235 ? TD/TT: 08/12/24 1235 ? Network/Telecom Engineer: ? Procedure Note Donotuseinterpreter, Image - 08/12/[address] [address] Ultrasound Report Signed Patient: Victorina Francois EMR#: [id number] : 4Acct:[id number] Age/Sex: 78 / FADM Date: 08/10/24 Loc: [facility] 485-[address]: Ernesto Morgan DO Ordering Physician: Ernesto Morgan DO Date of Service: 08/12/24 Procedure(s): US renal BI Accession Number(s): [id number] cc: Name,Balta MAYER; Ernesto Morgan DO CLINICAL [...] 08/12/24 1236 DD/ 1235 TD/TT: 08/12/24 1235 Network/Telecom Engineer: [facility] External Provider IMG US PROCEDURES Final Result * (ABNORMAL) Basic Metabolic Panel (08/10/2024 10:06 PM EST) Sodium 140 135 - 145 mmol/L [facility] Potassium 6.3(HH) 3.3 - 5.1 mmol/L [facility] Comment:Critical value for t est(s):POTS Results called to pat back by: SALEEM Person calling: [email or web address] Date:08/10/24Time:2224 Chloride 109(H) 96 - 108 mmol/L [facility] Carbon Dioxide 25 22 - 29 mmol/L [facility] Anion Gap 12 12 - 20 [facility] Urea Nitrogen (BUN) 24(H) 9 - 16 mg/dL [facility] Creatinine, Serum 1.60(H) 0.5 - 1.4 mg/dL [facility] Creatinine Clr Calc Pharmacy 26.6 [facility] Comment:Provided height and weight: 152.4 cm,82.1 kg.eGFR (calculated from the MDRD study equation) and eCrCl(calculated from the Cockcroft-Gault equation) are based ondifferent parameters and may not yield comparable results.If eCrCl result is absurd, please check patient'sheight/weight. Estimated Glomerular Filt Rate 31 [facility] Comment:Chronic Kidney Disea se: Estimated GFR < 60 mL/min/1.97v9Mtngps Kidney Disease: Estimated GFR < 15 mL/min/1.73m2 Glucose 98 60 - 115 mg/dL [facility] Calcium 9.5 8.4 - 10.2 mg/dL [facility] 08/10/2024 10:0 6 PM EST 08/10/2024 10:09 PM EST us Generic External Data Provider LAB BLOOD ORDERAB LES Final Result [facility] [address] [place] [address] [phone] * (ABNORMAL) Basic Metabolic Panel (08/10/2024 2:02 PM EST) Sodium 139 135 - 145 mmol/L [facility] Potassium 6.8(HH) 3.3 - 5.1 mmol/L [facility] Comment:Critical value for t est(s): POTS Results called to pat back by: DR. ASHRAF Person calling:[email or web address]:08/10/24 Time:1519 Chloride 103 96 - 108 mmol/L [facility] Carbon Dioxide 30(H) 22 - 29 mmol/L [facility] Anion Gap 13 12 - 20 [facility] Urea Nitrogen (BUN) 21(H) 9 - 16 mg/dL [facility] Creatinine, Serum 1.61(H) 0.5 - 1.4 mg/dL [facility] Estimated Glomerular Filt Rate 31 [facility] Comment:Chronic Kidney Disea se: Estimated GFR < 60 mL/min/1.55i0Qerpeb Kidney Disease: Estimated GFR < 15 mL/min/1.73m2 Glucose 71 60 - 115 mg/dL [facility] Calcium 10.4(H) 8.4 - 10.2 mg/dL [facility] 08/10/2024 2:02 PM EST 08/10/2024 2:09 PM EST Balta Jeffrey MD LAB BLOOD ORDERABLES Final Resul t [facility] [address] [place] [address] [phone] documented in this encounter Visit Diagnoses Not on filedocumented in this encounter Additional Health Concerns Assessment Noted Time PHQ-9 Depression Total Score: 0 09/20/19 24 1:15 PM EDT documented as of this encounter Care Teams Geospatial Applications Developer Relationship Specialty Start Date End Date Name, MD Balta [address] [place] [address] PCP - General Internal Medicine [facility] documented as of this encounter
== END 2024-08-30 13:09 | disposition home or self-care (01) ==
LOC: HO.HVNA 13:08
PROVIDERS: Visit Provider Internal Medicine Geriatric Medicine
DX: E87.5 Hyperkalemia (principal); N18.9 Chronic kidney disease, unspecified
CPT/HCPCS: 36415; 80048; 99212

== ENCOUNTER 2024-08-30 14:54 | Outpatient (AMB) | payer OTHER, SELFPAY ==
--- NOTE | 2024-08-30 15:27 | HO.NEPHOV ---
Vital Signs 08/30/24 15:28 08/30/24 15:43 Weight 193 lb BP 152/62 H 130/60 Blood Pressure Location Lt brachial Lt brachial Position Sitting Sitting Pulse 54 Pulse Source Pulse Oximeter Pulse Oximetry (%) 95 Oxygen Delivery Method Room Air Intake Visit Reasons: [facility] HFU/ LVM Quality Control Microbiology Supervisor Required: Yes Quality Control Microbiology Supervisor Name: Franko [phone] Accompanied by: Daughter Allergies Penicillins [PENICILLINS] Allergy (Intermediate, Verified 08/30/24 15:30) NAUSEA/HIVES metformin Adverse Reaction (Unknown, Verified 08/30/24 15:30) Diarrhea Medication List - Last Reconciled 08/30/24 by Karthik Irvin MD acetaminophen 650 mg (2 x 325 mg) PO Q6H PRN 30 days amlodipine 10 mg PO BEDTIME apixaban (Eliquis) 5 mg PO BID atorvastatin 40 mg PO DAILY 90 days calcium carbonate 1 tab PO DAILY carvedilol 25 mg PO BID cetirizine 10 mg PO DAILY cholecalciferol (vitamin D3) 1 tab PO DAILY cyanocobalamin (vitamin B-12) 1,000 mcg IM Q28D empagliflozin (Jardiance) 10 mg PO DAILY fluticasone propionate 50 mcg/actuation 1 - 2 sprays intranasal DAILY PRN furosemide 40 mg See Protocol PO DAILY 90 days mirtazapine 15 mg PO BEDTIME omeprazole 40 mg PO BID oxybutynin chloride 5 mg PO BID walker Folding front wheeled walker HPI Comments Details: 78F with chronic idiopathic constipation, obstructive sleep apnea, barrets and eosinophilic esophagitis, hyperlipidemia, unspecified asthma, chronic diastolic CHF, paroxysmal atrial fibrillation, sent in for hyperkalemia. Patient was admitted to [facility] for 07/24/24-08/02/24 for diverticulitis and hyperkalemia with MARIA R. At that time received fluids and antibiotics and her losartan and Aldactone had been discontinued. Patient reports feeling well since discharge, had follow-up labs which revealed hyperkalemia with potassium of 6.8 and acute kidney injury with creatinine of 1.61 h/o Venous insufficiency and lymphedema She was recently in the hospitla for MARIA R with a Cr of 2.26 and resolved prior to discharge. During this admission, K has been corrected with lokelma Losartan on hold Cr is at 1.8 Baseline < 1.0 08/30/24 Off ACEi Cr is down to 1.2 K is at 5.1 now c/o Constipation PFSH Medical History Epigastric pain Tubular adenoma of colon Preop cardiovascular exam Urinary urgency Pneumonia Hospital discharge follow-up Asthma MARIA R (acute kidney injury) GERD (gastroesophageal reflux disease) Diabetes Osteoarthritis Hyperlipidemia Chronic diastolic heart failure Hypertension JOVANNI (obstructive sleep apnea) Surgical History Hx of cataract surgery Status post total knee replacement, right History of arthroplasty of right knee Hx of colonoscopy H/O: hysterectomy History of salpingoophorectomy History of tonsillectomy Family History Father HTN (hypertension) Mother HTN (hypertension) CVD (cardiovascular disease) Daughter Bone cancer Father Cancer Social History Household Members: Family Housing: House Are you a primary managed care manager to a significant other at home: No Do you presently have visiting nurse or other home services: Yes Unable to assess alcohol history related to: Unknown Alcohol intake: never Comment: Advised to remove Patient Tobacco Use Status: Never used Tobacco e-Cigarette/Vaping Use: Never Used Second Hand Smoke Exposure: No service: No Current occupational status: retired Current occupation: Right handed Physical Exam Vital Signs: Last Vital Signs Pulse 54 08/30/24 15:28 BP 152/62 H 08/30/24 15:28 Pulse Ox 95 08/30/24 15:28 Oxygen Delivery Method Room Air 08/30/24 15:28 Comfortable Neck supple no JVD. Lungs entry equal no rales. Heart S1-S2 heard no gallop or rub. Abdomen soft nontender. Neuro alert awake oriented. No asterixis. Extremities no edema. Results Reviewed Nephrology Results: Hgb 10.9 g/dl (12.0-16.0) L 08/13/24 WBC 6.1 X10*3/uL (4.8-10.8) 08/13/24 Plt Count 219 X10*3/uL (160-400) 08/13/24 Sodium 144 mmol/L (135-145) 08/30/24 Potassium 5.1 mmol/L (3.3-5.1) 08/30/24 Chloride 111 mmol/L (96-108) H 08/30/24 Carbon Dioxide 27 mmol/L (22-29) 08/30/24 BUN 25 mg/dL (9-16) H 08/30/24 Creatinine 1.20 mg/dL (0.5-1.4) 08/30/24 Calcium 9.9 mg/dL (8.4-10.2) 08/30/24 Urine Protein Negative mg/dL (Neg-Trace) 08/11/24 Urine Creatinine 18.34 mg/dL 08/11/24 Renal US 08/12/24 Assessment & Plan Assessment & Plan (1) CKD (chronic kidney disease): Code(s): N18.9 - Chronic kidney disease, unspecified Category: Medical (2) Hyperkalemia: Code(s): E87.5 - Hyperkalemia Category: Medical Plan (1) Renal insufficiency: Status: Acute (2) Hyperkalemia: Status: Acute MARIA R superimposed on CKD Maria R most likely due to hypoperfusion No obstruction based on USG Urine- [place]- doubt AGN/AIN Renal functino is back to baseline after stopping ACEI Hyperkalemia Due to combination of MARIA R and KERON blockade /aldosterone antogonist REsolved Hold Losartan for now due to K of 5.1 Keep I > O Low K diet Loklema PRN if K > 5.2 Will add Colace for constipation Orders: Orders Basic Metabolic Panel 2 Months N18.9 - Chronic kidney disease, unspecified Medications: New docusate sodium (Colace) 100 mg PO DAILY 30 caps 0RF Coding Level of Care Code Est Pt Level 4 (95976) Diagnoses CKD (chronic kidney disease) N18.9 Hyperkalemia E87.5
[2024-08-30 15:28] VITALS: BP 152/62; PULSE 54; O2SAT 95
[2024-08-30 15:43] VITALS: BP 130/60
--- OUTSIDE RECORDS SUMMARY | 2024-08-30 16:00 | XMS_ITS | Encounter Summary ---
Author Organization [employer] Address [address] [facility] 7t [place] [address] Care Team Providers Care Grommet Machine Operator Name Role Phone Name, Balta MAYER Primary Care Provider Reason for Visit * Reason Comments Transition Of Care (Tcm) HDF- scheduled Encounter Details Date Type Department Care Team (Late st Contact Info) Description 08/06/2024 Patient Outreach [facility] [address] [place] [address] Name, MD Balta 230 [place] [address] Transition Of Care (Tcm) (HDF- scheduled ) [...] Admission/Visit 07/24/24 Date of Discharge 08/02/24 Facility [facility] Diagnosis Acute Dysphagia Disposition Discharged Home [...] Wednesdays, and Walk-In Urgent Care Located in [facility]. Patient provided with after-hours line for [facility], , which offer night time triage service and option to transfer to public relations player provider if needed. CC will request Discharge summary to be scanned into chart. documented in this encounter Plan of Treatment Upcoming Encounters Date Type Department Care Team (Late st Contact Info) Description 09/03/2024 9:00 AM EST Office Visit [facility] [address] [place] [address] Jaymie Adams NP 230 [place] [address] 09/03/2024 1:30 PM EST Clinical Support [address] [address] 09/19/2024 2:15 PM EDT Office Visit [address] [address] Balta Jeffrey MD 230 [place] [address] 12/17/2024 1:30 PM EDT Office Visit [facility] [address] [place] [address] Harry, Esther, OD 230 [place] [address] documented as of this encounter Visit Diagnoses Not on filedocumented in this encounter Additional Health Concerns Assessment Noted Time PHQ-9 Depression Total Score: 0 09/20/19 24 1:15 PM EDT documented as of this encounter Care Teams Grommet Machine Operator Relationship Specialty Start Date End Date NameBalta MD [address] [place] [address] PCP - General Internal Medicine 06/14/22 [facility] 08/05/24 documented as of this encounter
--- OUTSIDE RECORDS SUMMARY | 2024-08-30 16:00 | XMS_ITS | Encounter Summary ---
Author Organization [employer] Address [address] [facility] [address] 7t [place] [address] Care Team Providers Care Fleet Administrative Assistant Name Role Phone Name, Balta MAYER Primary Care Provider [phone] Reason for Visit * Reason Comments Med Refill Encounter Details Date Type Department Care Team (Late st Contact Info) Description 07/29/2024 Refill [facility] [address] [place], [place] [phone] Name, MD Balta 230 [place] [address] Vitamin D deficiency Social History Tobacco Use [...] Office Visit [facility] [address] [place] [address] Jaymie Adams NP [address] [place] [address] 09/03/2024 1:30 PM EST Clinical Support [facility] [address] [place] [address] 09/19/2024 2:15 PM EDT Office Visit [facility] [address] [place] [address] Name, MD Balta 230 [place] [address] 12/17/2024 1:30 PM EDT Office Visit [facility] [address] [place] [address] Esther Mcdonald, OD [address] [place] [address] documented as of this encounter Visit Diagnoses Diagnosis Vitamin D deficiency documented in this encounter Additional Health Concerns Assessment Noted Time PHQ-9 Depression Total Score: 0 09/20/19 1:15 PM EDT documented as of this encounter Care Teams Fleet Administrative Assistant Relationship Specialty Start Date End Date Name, MD Balta 230 [place] [address] PCP - General Internal Medicine 06/14/22 documented as of this encounter
--- OUTSIDE RECORDS SUMMARY | 2024-08-30 16:00 | XMS_ITS | Encounter Summary ---
Author Organization [employer] Address [address] [facility] 7t [place] [address] Care Team Providers Care Court Abstractor Name Role Phone Name, Balta MAYER Primary Care Provider [phone] Reason for Visit * Reason Onset Date Comments FYI 07/27/2024 Encounter Details Date Type Department Care Team (Late st Contact Info) Description 07/27/2024 Telephone [facility] [address] [place] [address] Name, MD Balta [address] [place] [address] FY Social History Tobacco Use Types Packs/Day [...] 08/03/2024 3:41 PM EST Pt discharged [place] [facility] 08/02/24 Dx: Dysphagia. T/C to listed number via [employer] Representative #[id number]. Parts Representative states message received indicating call failed x 2. No option to leave voicemail. * Telephone Encounter - Flores Cabrera RN - 07/27/2024 10:17 AM EST Noted. Pt still admitted. Follow up upon discharge. * Telephone Encounter - Christina Mcclelland - 07/27/2024 10:06 AM EST Tc from [place] to report pt are in [facility], was admitted on 07/24 because of concern of diarrhea. documented in this encounter Plan of Treatment Upcoming Encounters Date Type Department Care Team (Late st Contact Info) Description 09/03/2024 9:00 AM EST Office Visit [facility] [address] [place] [address] Jaymie Adams NP [address] [place] [address] 09/03/2024 1:30 PM EST Clinical Support [facility] [address] [place] [address] 09/19/2024 2:15 PM EDT Office Visit [facility] [address] [place] [address] NameBalta MD 230 [place] [address] 12/17/2024 1:30 PM EDT Office Visit [facility] [address] [place] [address] Harry, Esther, OD [address] [place] [address] documented as of this encounter Visit Diagnoses Not on filedocumented in this encounter Additional Health Concerns Assessment Noted Time PHQ-9 Depression Total Score: 0 09/20/19 24 1:15 PM EDT documented as of this encounter Care Teams Court Abstractor Relationship Specialty Start Date End Date Balta Jeffrey MD [address] [place] [address] PCP - General Internal Medicine 06/14/22 documented as of this encounter
--- OUTSIDE RECORDS SUMMARY | 2024-08-30 16:00 | XMS_ITS | Encounter Summary ---
Author Organization [employer] Address [address] [facility] [address] 7[address] [place] [address] Care Team Providers Care Business Improvement Manager Name Role Phone Name, Balta MAYER Primary Care Provider [phone] Encounter Details Date Type Department Care Team (Late st Contact Info) Description 07/20/2024 Community Care Management [facility] [address] [place], [place] [phone] Epic[employer] Link, Physician, Social History Tobacco Use [...] Description 09/03/2024 9:00 AM EST Office Visit [facility] [address] [place] [address] Jaymie Adams NP [address] [place] [address] 09/03/2024 1:30 PM EST Clinical Support [facility] [address] [place] [address] 09/19/2024 2:15 PM EDT Office Visit [facility] [address] [place] [address] Balta Jeffrey MD 230 [place] [address] 12/17/2024 1:30 PM EDT Office Visit [facility] [address] [place] [address] Harry, Esther, OD 230 [place] [address] documented as of this encounter Visit Diagnoses Not on filedocumented in this encounter Additional Health Concerns Assessment Noted Time PHQ-9 Depression Total Score: 0 09/20/19 24 1:15 PM EDT documented as of this encounter Care Teams Business Improvement Manager Relationship Specialty Start Date End Date Balta Jeffrey MD [address] [place] [address] PCP - General Internal Medicine 06/14/22 [facility] 08/05/24 documented as of this encounter
--- OUTSIDE RECORDS SUMMARY | 2024-08-30 16:00 | XMS_ITS | Encounter Summary ---
Author Organization [employer] Address [address] [facility] 7t [place] [address] Care Team Providers Care Grape Crusher Name Role Phone Name, Balta MAYER Primary Care Provider [phone] Reason for Visit * Reason Onset Date Comments ER Follow-up 08/06/2024 Encounter Details Date Type Department Care Team ([facility] Contact Info) Description 08/06/2024 Telephone [facility] [address] [place] [address] Name, MD Balta [address] [place] [address] ER Follow-up Social History Tobacco Use Types [...] from pt requesting a HDF appt. Hospital: [facility] Date of admission: 07/24/24 Discharge date: 08/02/24 Diagnosed: Acute Dysphagia *Send message to [place] Clinical Care Coordinators documented in this encounter Plan of Treatment Upcoming Encounters Date Type Department Care Team (Late st Contact Info) Description 09/03/2024 9:00 AM EST Office Visit [address] [address] Jaymie Adams NP [address] [place] [address] 09/03/2024 1:30 PM EST Clinical Support [address] [phone] 09/19/2024 2:15 PM EDT Office Visit [address] [address] Name, MD Balta [address] [place] [address] 12/17/2024 1:30 PM EDT Office Visit [facility] [address] [place], [place] [phone] Esther Mcdonald, OD 230 [place] [address] documented as of this encounter Visit Diagnoses Not on filedocumented in this encounter Additional Health Concerns Assessment Noted Time PHQ-9 Depression Total Score: 0 09/20/19 24 1:15 PM EDT documented as of this encounter Care Teams Grape Crusher Relationship Specialty Start Date End Date Name, MD Balta 230 [place] [address] PCP - General Internal Medicine 06/14/22 [facility] 08/05/24 documented as of this encounter
--- OUTSIDE RECORDS SUMMARY | 2024-08-30 16:00 | XMS_ITS | Encounter Summary ---
Author Organization [employer] Address [address] [facility] 7[address] [place] [address] Care Team Providers Care Concert Or Lecture Hall Manager Name Role Phone Name, Balta MAYER Primary Care Provider [phone] Reason for Visit * Reason Onset Date Comments Durable Medical Equipment 07/20/2024 Encounter Details Date Type Department Care Team (Late st Contact Info) Description 07/20/2024 Telephone [facility] [address] [place] [address] Name, MD Balta [address] [place] [address] Durable Medical Equipment Social History Tobacco Use [...] scanned into media. DME order generated in [employer]. Order [id number] * Telephone Encounter - Nancy Guillen - [...] Rina requesting DME. -recliner -shower handle/bar Fax# [phone] documented in this encounter Plan of Treatment Upcoming Encounters Date Type Department Care Team (Late st Contact Info) Description 09/03/2024 9:00 AM EST Office Visit [facility] [address] [place] [address] Jaymie Adams NP 230 [place] [address] 09/03/2024 1:30 PM EST Clinical Support [address] [address] 09/19/2024 2:15 PM EDT Office Visit [address] [address] Balta Jeffrey MD 230 [place] [address] 12/17/2024 1:30 PM EDT Office Visit [facility] OPT[facility] [address] [place] [address] Harry, Esther, OD 230 [place] [address] documented as of this encounter Visit Diagnoses Not on filedocumented in this encounter Additional Health Concerns Assessment Noted Time PHQ-9 Depression Total Score: 0 09/20/19 24 1:15 PM EDT documented as of this encounter Care Teams Concert Or Lecture Hall Manager Relationship Specialty Start Date End Date Balta Jeffrey MD [address] [place] [address] PCP - General Internal Medicine 06/14/22 documented as of this encounter
--- OUTSIDE RECORDS SUMMARY | 2024-08-30 16:01 | XMS_ITS | Encounter Summary ---
Author Organization [employer] Address [address] [place] [address] Care Team Providers Care Grounds Crew Supervisor Name Role Phone Name, Balta MAYER Primary Care Provider [phone] Encounter Details Date Type Department Care Team ([facility] st Contact Info) Description 08/10/2024 Telephone [facility] MEDICINE [address] [place] [address] Name, MD Balta [address] [place] [id number] Social History Tobacco Use Types Packs/Day Years [...] 09/03/2024 9:00 AM EST Office Visit [address] [address] Jaymie Adams NP [address] [place] [address] 09/03/2024 1:30 PM EST Clinical Support [address] [address] 09/19/2024 2:15 PM EDT Office Visit [address] [address] Balta Jeffrey MD [address] [place], [place] [phone] 12/17/2024 1:30 PM EDT Office Visit [facility] OPTOMETRY [address] [place], [place] [phone] Esther Mcdonald, OD [address] [place], [place] [phone] documented as of this encounter Visit Diagnoses Not on filedocumented in this encounter Additional Health Concerns Assessment Noted Time PHQ-9 Depression Total Score: 0 09/20/19 24 1:15 PM EDT documented as of this encounter Care Teams Grounds Crew Supervisor Relationship Specialty Start Date End Date Name, MD Balta [address] [place], [place] [phone] PCP - General Internal Medicine 06/14/22 [facility] 08/05/24 documented as of this encounter
--- OUTSIDE RECORDS SUMMARY | 2024-08-30 16:01 | XMS_ITS | Clinical Summary ---
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) ([facility]) TEST BLOOD SUGAR TWICE DAILY DIRECTED 100 [...] pen-injectorInd ications:Type 2 diabetes mellitus with obesity ([facility]/HCC) ([facility]) Inject 1.5 mg under the skin 1 [...] 11/17/2022 Type 2 diabetes mellitus with obesity ([facility]) 08/31/2022 Lentiginosis 10/13/2018 Obstructive sleep apnea syndrome 10/02/2018 Chronic diastolic heart failure 05/25/2018 Overview (09/21/2023): [address] [phone] CARDIOLOGY NAME: SAMMIE FRANCOIS PARTS CHASER: DWIGHT UNIT #: [id number] PATIENT LOCATION: EKG REFERRING PHYSICIAN: ANIYA BERNARD MD DATE OF : 41 PCP: ANIYA BERNARD MD SEX: Female DATE: 04/20/18 CARD ECHO 2D M MODE W DOPPLER COLOR [id number] SYMPTOMS,HX?: I10 ESSENTIAL HTN; R60.0 LOCALIZED EDEMA Transthoracic Echocardiogram Patient (Last, First, Middle): SAMMIE FRANCOIS E Gender: Female Date of : 1945 Age: 72 Procedure Date: 04/20/2018 Procedure Type: Transthoracic Echocardiogram Location: OP Height: 157.48 cm Weight: 81.65 kg BSA: 1.83 m2 Heart Rate: bpm BP: 144 / 78 mmHg Hot Frame Tender: JEAN Martino MD: ANIYA BERNARD MD Symptoms: [...] of Final JANI IYER MD Report #: [id number] Status: Signed Dict: 04/20/18/ Trans: /SUBRAH DATE PRINTED: //date// TIME PRINTED: //time// COPY TO: //ivnh// //add1// //add2// //add3// Tubular adenoma of colon [...] Type Department Care Team Description 08/24/2024 Telephone [facility] MEDICINE [address] [place] [phone] Balta Jeffrey MD Lab Orders 08/23/2024 Telephone [facility] MEDICINE [address] [place] [address] Kirsty Garcia MA Chart Prep 08/17/2024 Telephone [facility] MEDICINE [address] [place] [address] Balta Jeffrey MD Appointment Request 08/16/[address] [address] Balta Jeffrey MD Call Back Request 08/16/2024 Telephone [facility] MED & PEDS [address] [place] [address] Balta Jeffrey MD Chart Prep 08/10/2024 Telephone [facility] WALK-IN CENTER [address] [place] [phone] Caity Rain MD 08/10/[address] [address] Balta Jeffrey MD 08/10/2024 Orders Only [facility] MEDICINE [address] [place] [address] Balta Jeffrey MD 08/06/2024 Patient Outreach [facility] [address] [place] [phone] Balta Jeffrey MD Transition Of Care (Tcm) (HDF- scheduled ) 08/06/2024 Telephone [facility] MEDICINE [address] [place] [phone] Balta Jeffrey MD ER Follow-up 07/29/2024 Refill [facility] MED & PEDS [address] [place] [address] Balta Jeffrey MD Vitamin D deficiency 07/27/2024 Telephone [facility] MEDICINE [address] [place] [phone] Balta Jeffrey MD FYI 07/26/2024 Telephone [facility] MEDICINE [address] [place] [address] Flores Cabrera, RN 07/24/2024 Orders Only [facility] External Provider, [facility] 07/20/[address] [facility] [address] [facility] [place] [address] Name, MD Balta Durable Medical Equipment 07/20/2024 Community Care Management [facility] [address] [place] [address] [employer] Link, PhysicianMD 07/16/[address] [facility] [address] [place] [address] Name, MD Balta 06/25/2024 10:30 AM EST Clinical Support [facility] [place] [address] Flores Cabrera, RN Cobalamin deficiency 06/25/2024 Travel [...] Description 09/03/2024 9:00 AM EST Office Visit [facility] MEDICINE [address] [place] [address] Jaymie Adams NP [address] [place] [address] 09/03/2024 1:30 PM EST Clinical Support [facility] MED[facility] [address] [place] [address] 09/19/2024 2:15 PM EDT Office Visit [facility] MEDICINE [address] [place] [address] Name, MD Balta [address] [place] [address] 12/17/2024 1:30 PM EDT Office Visit [facility] OPTOMETRY [address] [place], [place] [phone] Esther Mcdonald, OD [address] [place] [address] Health Maintenance Due Date Last Done Comments [...] 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 Sodium 144 135 - 145 mmol/L [facility] Potassium 5.1 3.3 - 5.1 mmol/L [facility] Chloride 111(H) 96 - 108 mmol/L [facility] Carbon Dioxide 27 22 - 29 mmol/L [facility] Anion Gap 11(L) 12 - 20 [facility] Urea Nitrogen (BUN) 25(H) 9 - 16 mg/dL [facility] Creatinine, Serum 1.20 0.5 - 1.4 mg/dL [facility] Estimated Glomerular Filt Rate 43 [facility] Comment:Chronic Kidney Disea se: Estimated GFR < 60 mL/min/1.43m3Osnmti Kidney Disease: Estimated GFR < 15 mL/min/1.73m2 Glucose 82 60 - 115 mg/dL [facility] Calcium 9.9 8.4 - 10.2 mg/dL [facility] Blood Venous blood specimen / Unknown 08/30/2024 11:50 AM EST 08/30/2024 1:10 PM EST us Balta Name MD LAB BLOOD ORDERABLES Final Resul t [facility] [address] [place] [address] [phone] * US RENAL BI (08/12/2024 12:35 PM EST) Anatomical Region Laterality Modality Abdomen Ultrasound 08/12/2024 12:3 5 PM EST Narrative 08/12/2024 12:36 PM EST ? [facility] ?[address] ?[place] [address] ? Ultrasound Report ? Signed ? Patient: Sammie Francois ?MR#: MM ?? [id number] ? : 1945 ?Acct:[id number] ? Age/Sex: 78 / F ?ADM Date: 08/10/24 ? Loc: HO.IMC ?485-1 ? Attending Dr: Ernesto Morgan DO ? Ordering Physician: Ernesto Morgan DO ?? Date of Service: 08/12/24 ?? Procedure(s): US renal BI ?? Accession Number(s): [id number] ? cc: Name,Balta MAYER; Ernesto Morgan DO [...] DD/ 1235 ? TD/TT: 08/12/24 1235 ? Agricultural Commodities Inspector: ? Procedure Note Donneris, Image - 08/12/2024 [place] [address] Ultrasound Report Signed Patient: Sammie Francois EMR#: [id number] : 4Acct:[id number] Age/Sex: 78 / FADM Date: 08/10/24 Loc: [facility] 485-[address]: Ernesto Morgan DO Ordering Physician: Ernesto Morgan DO Date of Service: 08/12/24 Procedure(s): US renal BI Accession Number(s): [id number] cc: Name,Balta MAYER; Ernesto Morgan DO CLINICAL [...] 08/12/24 1236 DD/ 1235 TD/TT: 08/12/24 1235 Agricultural Commodities Inspector: [facility] External Provider IMG US PROCEDURES Final Result * FL Esophagus Barium Swallow w/Air (07/30/2024 7:00 AM EST) Anatomical Region Laterality Modality Head, Neck Radiographic Melissa ging 07/30/2024 7:00 AM EST Narrative 07/31/2024 9:06 AM EST ? [facility] ?[address] ?[place] [address] ? Fluoroscopy Report ? Signed ? Patient: Fischer Mike,Jayne ?MR#: MM ?? [id number] ? : 1945 ?Acct:[id number] ? Age/Sex: 78 / F ?ADM Date: 07/24/24 ? Loc: HO.S3 ?387-1 ? Attending Dr: Renan Melton MD ? Ordering Physician: Renan Melton MD ?? Date of Service: 07/30/24 ?? Procedure(s): FL barium swallow with air ?? Accession Number(s): [id number] ? cc: Renan Melton MD; Name,Balta MAYER [...] DD/ 0700 ? TD/TT: 07/30/24 1110 ? Agricultural Commodities Inspector: ? Procedure Note Tonyter, Image - 07/31/2024 [place] [address] Fluoroscopy Report Signed Patient: Sammie Francois EMR#: [id number] : 4Acct:[id number] Age/Sex: 78 / FADM Date: 07/24/24 Loc: HO.S3 387-[address]: Renan Melton MD Ordering Physician: Renan Melton MD Date of Service: 07/30/24 Procedure(s): FL barium swallow with air Accession Number(s): [id number] cc: Renan Melton MD; Name,Balta MAYER EXAMINATION: [...] by: Troy Acuna MD 07/31/2024 09:04 AM [facility] Dictated By: Gabriel Ribeiro Signed By: <Electronically signed by Gabriel Ribeiro in OV> 07/31/24 0904 <Electronically signed by Troy Acuna MD in OV> 07/31/24 0906 DD/ 0700 TD/TT: 07/30/24 1110 Agricultural Commodities Inspector: us [facility] Exter nal Provider IMG FLUOROSCOPY PROCEDURES Edited Result - Final * Lactic Acid (07/24/2024 9:08 PM EST) Lactic Acid 1.0 0.5 - 2.0 mmol/L [facility] 07/24/2024 9:08 PM EST 07/24/2024 9:17 PM EST us Generic External Data Provider LAB BLOOD ORDERAB LES Final Result Performing Organization Address City/State/[facility] Co de Phone Number [facility] [address] [place] [address] [phone] * CT Abdomen Pelvis w/o Contrast (07/24/2024 9:06 PM EST) Anatomical Region Laterality Modality Body, Pelvis, Abdomen Computed T omography 07/24/2024 9:06 PM EST Narrative 07/24/2024 9:08 PM EST ? [facility] ?[address] ?[place] [address] ? CT Scan Report ? Signed ? Patient: Sammie Francois ?MR#: MM ?? [id number] ? : 1945 ?Acct:[id number] ? Age/Sex: 78 / F ?ADM Date: 07/24/24 ? Loc: HO.ED ? Attending Dr: ? Ordering Physician: Vida Regalado CNP ?? Date of Service: 07/24/24 ?? Procedure(s): CT abdomen pelvis wo IV con ?? Accession Number(s): [id number] ? cc: Vida Regalado MACHINIST [employer] CLASS; [facility] ? Report Number: ?? [id number]: Total DLP = ??680.00 mGy-cm ? CLINICAL [...] document has been electronically signed by: Donald Kariim MD on ?? 07/24/2024 21:06:26 ? Dictated By: ?Donald Karimi MD ? Signed By: ?<Electronically signed by Donald Karimi MD in OV> ? 07/24/242106 ? DD/ 05 ? TD/TT: 07/24/242105 ? Agricultural Commodities Inspector: ? Procedure Note Gisselle, Image - 07/24/[address] [address] [place] Scan Report Signed Patient: Sammie Francois EMR#: [id number] : 4Acct:[id number] Age/Sex: 78 / FADM Date: 07/24/24 Loc: HO.ED Attending Dr: Ordering Physician: Vida Regalado CNP Date of Service: 07/24/24 Procedure(s): CT abdomen pelvis wo IV con Accession Number(s): [id number] cc: Vida Regalado CNP; [facility] Report Number: [id number]: Total DLP = 680.00 mGy-cm CLINICAL HISTORY: [...] in OV> 07/24/242106 DD/ 05 TD/TT: 07/24/242105 Agricultural Commodities Inspector: [facility] External Provider IMG CT PROCEDURES Final Result * Glucose, Whole Blood (07/24/2024 8:59 PM EST) Glucose, Whole Blood 70 60 - 115 mg/dL [facility] Comment:METER #: [id number] 07/24/2024 8:59 PM EST 07/24/2024 9:02 PM EST Generic External Data Provider LAB BLOOD ORDERAB LES Final Result [facility] [address] [place] [phone] * SARS-CoV-2 RNA, Influenza A/B, and RSV RNA, Ql NAAT (07/24/2024 7:20 PM EST) Pathologist [facility] Influenza A PCR NEGATIVE Negative [facility] Influenza B PCR NEGATIVE Negative [facility] Resp Syncy Virus RNA Qual PCR NEGATIVE Negative [facility] SARS COV2 PCR NEGATIVE Negative [facility] Comment:All test results mus t be [...] use by authorized laboratories.Testing performed on the [employer] GeneXpert utilizingreal-time RT-PCR.All SARS CoV2 and positive influenza A/B results arereported to [facility]. 07/24/2024 7:20 PM EST 07/24/2024 7:22 PM EST us Generic External Data Provider LAB MICROBIOLOGY - GENERAL ORDERABLES Final Result [facility] [address] [place] [phone] * (ABNORMAL) CBC auto differential (07/24/2024 7:20 PM EST) Pathologist [facility] White Blood Count 6.5 4.8 - 10.8 X10*3/uL [facility] Red Blood Count 4.09(L) 4.20 - 5.50 X10*6/uL [facility] Hemoglobin 11.3(L) 12.0 - 16.0 g/dl [facility] Hematocrit 34.5(L) 37.0 - 47.0 % [facility] Mean Corpuscular Volume 84.4 80.0 - 98.0 fL [facility] Mean Corpuscular Hemoglobin 27.6 27.0 - 33.0 pg [facility] Mean Corpuscular HGB Conc 32.8 31.0 - 35.0 g/dl [facility] Red Cell Distribution Width 16.1(H) 11.0 - 16.0 % [facility] Platelet Count 210 160 - 400 X10*3/uL [facility] Mean Platelet Volume 10.6 9.4 - 12.3 fL [facility] Neutrophils Percent Auto 72.3 45 - 73 % [facility] Imm Gran Pct Auto 0.6(H) 0.0 - 0.4 % [facility] Lymphocytes Percent Auto 19.9(L) 20 - 40 % [facility] Monocytes Percent Auto 5.4 2 - 11 % [facility] Eosinophils Percent Auto 1.5 0 - 4 % [facility] Basophils Percent Auto 0.3 0 - 2 % [facility] NRBC Pct Auto 0.0 0.0 - 0.2 /100WBC [facility] Neutrophils Absolute Auto 4.7 2.0 - 8.3 x10*3/uL [facility] Imm Gran Abs Auto 0.04(H) 0.00 - 0.03 X10*3/uL [facility] Lymphocytes Absolute Auto 1.3 1.2 - 4.9 X10*3/uL [facility] Monocytes Absolute Auto 0.4 0.1 - 1.2 X10*3/uL [facility] Eosinophils Absolute Auto 0.1 0.0 - 0.4 X10*3/uL [facility] Basophils Absolute Auto 0.0 0.0 - 0.2 X10*3/uL [facility] NRBC Abs Auto 0.000 0.0 - 0.012 X10*3/uL [facility] 07/24/2024 7:20 PM EST 07/24/2024 7:22 PM EST us Generic External Data Provider LAB BLOOD ORDERAB LES Final Result [facility] [address] [place] [address] [phone] * Magnesium (07/24/2024 7:20 PM EST) Magnesium 2.4 1.6 - 2.6 mg/dL [facility] 07/24/2024 7:20 PM EST 07/24/2024 7:22 PM EST us Generic External Data Provider LAB BLOOD ORDERAB LES Final Result Performing Organization Address [facility]/ZIP Co de Phone Number [facility] [address] [place] [phone] * Lipase (07/24/2024 7:20 PM EST) Pathologist [facility] Lipase 38 8 - 78 U/L [facility] 07/24/2024 7:20 PM EST 07/24/2024 7:22 PM EST Generic External Data Provider LAB BLOOD ORDERAB LES Final Result Performing Organization Address [facility] Co de Phone Number [facility] [address] [place] [phone] * (ABNORMAL) Comprehensive Metabolic Panel (07/24/2024 7:20 PM EST) Pathologist [facility] Sodium 139 135 - 145 mmol/L [facility] Potassium 6.3(HH) 3.3 - 5.1 mmol/L [facility] Comment:Critical value for t est(s): POTS Results called to and readback by: ALONZO Person calling:YASSINE Date: 07/24/24 Time:1952 Chloride 110(H) 96 - 108 mmol/L [facility] Carbon Dioxide 25 22 - 29 mmol/L [facility] Anion Gap 10(L) 12 - 20 [facility] Urea Nitrogen (BUN) 51(H) 9 - 16 mg/dL [facility] Creatinine, Serum 2.29(H) 0.5 - 1.4 mg/dL [facility] Creatinine Clr Calc Pharmacy 19.0 [facility] Comment:Provided height and weight: 152.4 cm,85.4 kg.eGFR (calculated from the MDRD study equation) and eCrCl(calculated from the Cockcroft-Gault equation) are based ondifferent parameters and may not yield comparable results.If eCrCl result is absurd, please check patient'sheight/weight. Estimated Glomerular Filt Rate 21 [facility] Comment:Chronic Kidney Disea se: Estimated GFR < 60 mL/min/1.37c2Ghyntw Kidney Disease: Estimated GFR < 15 mL/min/1.73m2 Glucose 97 60 - 115 mg/dL [facility] Calcium 9.8 8.4 - 10.2 mg/dL [facility] Bilirubin, Total 0.3 0.0 - 1.0 mg/dL [facility] Aspartate Amino Transferase 30 5 - 31 U/L [facility] Alanine Aminotransferase 30 0 - 31 U/L [facility] Total Protein 7.6 6.5 - 8.0 g/dL [facility] Albumin Level 4.1 3.5 - 5.0 g/dL [facility] Alkaline Phosphatase 193(H) 39 - 117 U/L [facility] 07/24/2024 7:20 PM EST 07/24/2024 7:22 PM EST us Generic External Data Provider LAB BLOOD ORDERAB LES Final Result [facility] [address] [place] [phone] * (ABNORMAL) Urinalysis, Complete, with Reflex to Culture (07/24/2024 5:15 PM EST) Color Urine Yellow [facility] Appearance Urine Clear [facility] PH 7.0 5.0 - 9.0 [facility] Glucose Urine UA 250(A) Negative mg/dL [facility] Urine Blood Negative Negative [facility] Specific [place] - Urine <=1.005 1.005 - 1.025 [facility] Urine Protein Negative Neg-Trace mg/dL [facility] Urine Ketones Negative Negative mg/dL [facility] Nitrite Urine Negative Negative [facility] Leukocyte Esterase Urine Moderate (2+)(A) Negative [facility] RBC Urine 3-5(A) 0 - 2 /HPF [facility] Urine WBC 11-20(A) 0 - 5 /HPF [facility] Urine Squamous Epithelial Cell 0-2 0 - 2 /HPF [facility] Urine Bacteria 4+ None Seen [facility] Hyaline Casts, Urine 3-5 0 - 2 /LPF [facility] 07/24/2024 5:15 PM EST 07/24/2024 5:19 PM EST Narrative [facility] - 07/24/2024 5:50 PM EST Urine, Clean Catch us Generic External Data Provider LAB URINE ORDERAB LES Final Result Performing Organization Address City/State/[facility] Co de Phone Number [facility] [address] [place] [phone] * POCT HGB A1C (02/24/2024 11:53 AM EDT) Hemoglobin A1C 5.7 4.0 - 6.0 % Blood 02/24/2024 11:5 3 AM EDT us Balta Name POINT OF CARE TEST ENTER/EDIT OR DERABLES Final Result * Albumin, Random Urine W/Creatinine (12/27/2023 9:45 AM EDT) Creatinine, Urine 90.13 mg/dL [facility] Microalbumin Urine 11.0 mg/L [facility] Microalbum Creatinine Ratio Ur 12.2 <30 ug/mg cr [facility] Comment:Albumin/Creatinine R atio Reference Ranges: Normal: < 30 ug/mg creatinine Microalbuminuria: 30 - 300 ug/mg creatinineClinical Albuminuria: > 300 ug/mg creatinine Urine (Urine, Random) 12/27/2023 9:45 AM EDT 12/27/2023 11:23 AM EDT us Balta Jeffrey MD LAB URINE ORDERABLES Final Resul t Performing Organization Address [facility] Co de Phone Number [facility] [address] [place] [phone] * Lipid Panel, Standard (12/26/2023 1:22 PM EDT) Triglycerides 52 <150 mg/dL [facility] Comment:Desirable Triglyceri de: less than 150 mg/dLBorderline High Triglyceride 150-199 mg/dLHigh Triglyceride: 200-499 mg/dLVery High Triglyceride: greater than or equal to 5OO mg/dL Cholesterol 169 <200 mg/dL [facility] Comment:Desirable Cholestero l: less than 200 mg/dLBorderline High Cholesterol: 200-239 mg/dLHigh Cholesterol: greater than 239 mg/dL LDL Cholesterol Calculated 92 <100 mg/dL [facility] Comment:Desirable LDL: less than 100 mg/dLNear Optimal/Above Optimal LDL: 110- 129 mg/dLBorderline High LDL: 130-159 mg/dLHigh LDL: 160-189 mg/dLVery High LDL: greater than or equal to 190 mg/dL HDL Cholesterol 67 >40 mg/dL [facility] Comment:Desirable HDL: great er than 40 mg/dL Note: This HDL assay may give artificially low results in patients with liver disease. Blood Venous blood specimen / Unknown 12/26/2023 1:22 PM EDT 12/26/2023 3:56 PM EDT us Balta Jeffrey MD LAB BLOOD ORDERABLES Final Resul t Performing Organization Address [facility]/ZIP Co de Phone Number [facility] [address] [place] [phone] [phone] from Last 3 Months or Most Recently Relevant to Health Maintenance Insurance [facility] Care Teams Photography Sales Associate Relationship Specialty Start Date End Date Name, MD Balta [address] [place] [address] PCP - General Internal Medicine 06/14/22 [place] [facility] 08/05/24
--- OUTSIDE RECORDS SUMMARY | 2024-08-30 16:01 | XMS_ITS | Encounter Summary ---
Author Organization [employer] Address [address] [facility] [address] 7t [place] [address] Care Team Providers Care Microsoft Crm Developer Name Role Phone Name, Balta MAYER Primary Care Provider [phone] Encounter Details Date Type Department Care Team (Late st Contact Info) Description 08/10/2024 Telephone [facility] [address] [place] [address] Caity Rain MD 505 [place] [address] Social History Tobacco Use Types Packs/Day Years [...] finally successful, daughter will bring her [place] [facility] for urgent eval and treatmentof hyperkalemia of 6.8 Patient was asymptomatic. documented in this encounter Plan of Treatment Upcoming Encounters Date Type Department Care Team (Late st Contact Info) Description 09/03/2024 9:00 AM EST Office Visit [facility] [address] [place] [address] Jaymie Adams NP 230 [place] [address] 09/03/2024 1:30 PM EST Clinical Support [facility] [address] [place] [address] 09/19/2024 2:15 PM EDT Office Visit [facility] [address] [place] [address] Name, MD Balta 230 [place] [address] 12/17/2024 1:30 PM EDT Office Visit [facility] [address] [place] [address], [place] [address] Harry, Esther, OD 230 [place] [address] documented as of this encounter Visit Diagnoses Not on filedocumented in this encounter Additional Health Concerns Assessment Noted Time PHQ-9 Depression Total Score: 0 09/20/19 24 1:15 PM EDT documented as of this encounter Care Teams Microsoft Crm Developer Relationship Specialty Start Date End Date Name, MD Balta 230 [place] [address] PCP - General Internal Medicine [facility] documented as of this encounter
--- OUTSIDE RECORDS SUMMARY | 2024-08-30 16:01 | XMS_ITS | Continuity of Care Document ---
Author Organization [facility] [employer] Address [address] [place] [address] Phone Care Team Providers Care Broadcast News Producer Name Role Phone MD LEYLA Schreiber, Julia [...] Provider Providers Copied on Encounter [facility], [address], [place], [place], [id number], [place] tel:[phone] [facility] blurry vision (chief complaint) Combined forms of age-related cataract, bilateralDry eye syndrome of bilateral lacrimal glandsOpen angle with borderline findings, high risk, bilateral MD Julia Kitchen. [address] [facility], [place], [place], [id number] , [place]. tel: [phone] Referring Provider: SUMAYA HERNANDEZ, [address] [facility], [place], [address]. tel:[phone] Family History Family Member Type Diagnosis Age At Onset No Information Payers Payer name Insurance type Covered alliance party ID randy go[facility] [id number] Social History Type Description Quantity Date Captured [...]
--- OUTSIDE RECORDS SUMMARY | 2024-08-30 16:01 | XMS_ITS | Encounter Summary ---
Author Organization [employer] Address 75 [facility] 7t [place] [address] Care Team Providers Care Low Voltage Technician Name Role Phone Name, Balta MAYER Primary Care Provider [phone] Encounter Details Date Type Department Care Team ([facility] st Contact Info) Description 08/10/2024 Orders Only [facility] 230 [place] [address] Name, MD Balta 230 [place] [address] Social History Tobacco Use Types Packs/Day Years [...] PM EST Pt is currently admitted at [facility] * Cindy Ly RN - 08/10/2024 3:54 PM EST Per review of [facility], pt discharged home 08/13/24 with resumption of VNA. No discharge note yet available. Pt is already scheduled with pcp for HDF on 08/17/24. documented in this encounter Plan of Treatment Upcoming Encounters Date Type Department Care Team (Late st Contact Info) Description 09/03/2024 9:00 AM EST Office Visit [facility] [address] [place] [address] Jaymie Adams NP 230 [place] [address] 09/03/2024 1:30 PM EST Clinical Support [address] [address] 09/19/2024 2:15 PM EDT Office Visit [address] [address] Name, MD Balta [address] [facility] [place] [address] 12/17/2024 1:30 PM EDT Office Visit [facility] OPT[facility] [address] [place] [address] Harry Esther, OD 230 [facility] [place] [address] documented as of this encounter Procedures Procedure [...] EST Narrative 08/12/2024 12:36 PM EST ? [facility] ?[address] ?[place] [address] ? Ultrasound Report ? Signed ? Patient: Victorina Francois ?MR#: [id number] ?? [id number] ? : 1945 ?Acct:[id number] ? Age/Sex: 78 / F ?ADM Date: 08/10/24 ? Loc: [facility] ?485-1 ? Attending Dr: Ernesto Morgan DO ? Ordering Physician: Ernesto Morgan DO ?? Date of Service: 08/12/24 ?? Procedure(s): US renal BI ?? Accession Number(s): [id number] ? cc: Balta Jeffrey MD; Ernesto Morgan [...] DD/ 1235 ? TD/TT: 08/12/24 1235 ? Apprentice Painter Hand: ? Procedure Note Donotuseinterpreter, Image - 08/12/[address] [address] Ultrasound Report Signed Patient: Victorina Francois EMR#: [id number] : 4Acct:[id number] Age/Sex: 78 / FADM Date: 08/10/24 Loc: [facility] 485-[address]: Ernesto Morgan DO Ordering Physician: Ernesto Morgan DO Date of Service: 08/12/24 Procedure(s): US renal BI Accession Number(s): [id number] cc: Name,Balta MAYER; Ernesto Morgan DO CLINICAL [...] 08/12/24 1236 DD/ 1235 TD/TT: 08/12/24 1235 Apprentice Painter Hand: [facility] External Provider IMG US PROCEDURES Final Result * (ABNORMAL) Basic Metabolic Panel (08/10/2024 10:06 PM EST) Sodium 140 135 - 145 mmol/L [facility] Potassium 6.3(HH) 3.3 - 5.1 mmol/L [facility] Comment:Critical value for t est(s):POTS Results called to pat back by: SALEEM Person calling: [id number] Date:08/10/24Time:2224 Chloride 109(H) 96 - 108 mmol/L [facility] Carbon Dioxide 25 22 - 29 mmol/L [facility] Anion Gap 12 12 - 20 [facility] Urea Nitrogen (BUN) 24(H) 9 - 16 mg/dL [facility] Creatinine, Serum 1.60(H) 0.5 - 1.4 mg/dL [facility] Creatinine Clr Calc Pharmacy 26.6 [facility] Comment:Provided height and weight: 152.4 cm,82.1 kg.eGFR (calculated from the MDRD study equation) and eCrCl(calculated from the Cockcroft-Gault equation) are based ondifferent parameters and may not yield comparable results.If eCrCl result is absurd, please check patient'sheight/weight. Estimated Glomerular Filt Rate 31 [facility] Comment:Chronic Kidney Disea se: Estimated GFR < 60 mL/min/1.95d6Zwaokn Kidney Disease: Estimated GFR < 15 mL/min/1.73m2 Glucose 98 60 - 115 mg/dL [facility] Calcium 9.5 8.4 - 10.2 mg/dL [facility] 08/10/2024 10:0 6 PM EST 08/10/2024 10:09 PM EST us Generic External Data Provider LAB BLOOD ORDERAB LES Final Result [facility] [address] [place] [address] [phone] * (ABNORMAL) Basic Metabolic Panel (08/10/2024 2:02 PM EST) Sodium 139 135 - 145 mmol/L [facility] Potassium 6.8(HH) 3.3 - 5.1 mmol/L [facility] Comment:Critical value for t est(s): POTS Results called to pat back by: DR. ASHRAF Person calling:[id number]:08/10/24 Time:1519 Chloride 103 96 - 108 mmol/L [facility] Carbon Dioxide 30(H) 22 - 29 mmol/L [facility] Anion Gap 13 12 - 20 [facility] Urea Nitrogen (BUN) 21(H) 9 - 16 mg/dL [facility] Creatinine, Serum 1.61(H) 0.5 - 1.4 mg/dL [facility] Estimated Glomerular Filt Rate 31 [facility] Comment:Chronic Kidney Disea se: Estimated GFR < 60 mL/min/1.82z7Fevmaq Kidney Disease: Estimated GFR < 15 mL/min/1.73m2 Glucose 71 60 - 115 mg/dL [facility] Calcium 10.4(H) 8.4 - 10.2 mg/dL [facility] 08/10/2024 2:02 PM EST 08/10/2024 2:09 PM EST Balta Jeffrey MD LAB BLOOD ORDERABLES Final Resul t [facility] [address] [place] [address] [phone] documented in this encounter Visit Diagnoses Not on filedocumented in this encounter Additional Health Concerns Assessment Noted Time PHQ-9 Depression Total Score: 0 09/20/19 24 1:15 PM EDT documented as of this encounter Care Teams Low Voltage Technician Relationship Specialty Start Date End Date Name, MD Balta [address] [place] [address] PCP - General Internal Medicine [facility]22 [facility] documented as of this encounter
--- OUTSIDE RECORDS SUMMARY | 2024-08-30 16:01 | XMS_ITS | Encounter Summary ---
Author Organization [employer] Address [address] [facility] [address] 7t [place] [address] Care Team Providers Care Staff Physician Name Role Phone Name, Balta MAYER Primary Care Provider [phone] Reason for Visit * Reason Onset Date Comments Chart Prep 08/23/2024 Encounter Details Date Type Department Care Team (Late st Contact Info) Description 08/23/2024 Telephone [facility] 230 [place] [address] Kirsty Garcia MA Chart Prep Social History [...] Description 09/03/2024 9:00 AM EST Office Visit [facility] [address] [place] [address] Jaymie Adams NP 230 [place] [address] 09/03/2024 1:30 PM EST Clinical Support [address] [address] 09/19/2024 2:15 PM EDT Office Visit [address] [address] Name, MD Balta 230 [place] [address] 12/17/2024 1:30 PM EDT Office Visit [facility] OPT[facility] [address] [place] [address] Harry Esther, OD [address] [place] [address] documented as of this encounter Visit Diagnoses Not on filedocumented in this encounter Additional Health Concerns Assessment Noted Time PHQ-9 Depression Total Score: 0 09/20/19 24 1:15 PM EDT documented as of this encounter Care Teams Staff Physician Relationship Specialty Start Date End Date Name, MD Balta 230 [place] [address] PCP - General Internal Medicine 06/14/22 [facility] 08/05/24 documented as of this encounter
--- OUTSIDE RECORDS SUMMARY | 2024-08-30 16:01 | XMS_ITS | Encounter Summary ---
Author Organization [employer] Address [address] [facility] [address] 7t [place] [address] Care Team Providers Care Manager Resource Name Role Phone Name, Balta MAYER Primary Care Provider [phone] Reason for Visit * Reason Comments Med Refill Encounter Details Date Type Department Care Team (Late st Contact Info) Description 03/05/2024 Refill [facility] [address] [place], [place] [phone] Name, MD Balta 230 [place] [address] Social History Tobacco Use Types Packs/Day Years [...] Description 09/03/2024 9:00 AM EST Office Visit [facility] [address] [place] [address] Jaymie Adams NP 230 [place] [address] 09/03/2024 1:30 PM EST Clinical Support [facility] [address] [place] [address] 09/19/2024 2:15 PM EDT Office Visit [facility] [address] [place] [address] Name, MD Balta [address] [place] [address] 12/17/2024 1:30 PM EDT Office Visit [facility] OPTOMETRY [address] [place] [address] Esther Mcdonald, OD [address] [place] [address] documented as of this encounter Visit Diagnoses Not on filedocumented in this encounter Additional Health Concerns Assessment Noted Time PHQ-9 Depression Total Score: 0 03/12/20 24 1:15 PM EDT documented as of this encounter Care Teams Manager Resource Relationship Specialty Start Date End Date Name, MD Balta [address] [place] [address] PCP - General Internal Medicine 06/14/22 [facility] 08/05/24 documented as of this encounter
--- OUTSIDE RECORDS SUMMARY | 2024-08-30 16:01 | XMS_ITS | Encounter Summary ---
Author Organization [employer] Address [address] [facility] 7t [place] [address] Care Team Providers Care Felled Seam Operator Name Role Phone Name, Balta MAYER Primary Care Provider [phone] Reason for Visit * Reason Onset Date Comments Appointment Request 08/17/2024 Encounter Details Date Type Department Care Team ([facility] st Contact Info) Description 08/17/2024 Telephone [facility] [address] [place] [address] Name, MD Balta [address] [place] [address] Appointment Request Social History Tobacco Use Types [...] before HDF. TC placed to pt via [facility] electric motor repair supervisor (Stefano ID#[id number]) to inform that labs were placed to [...] 4:57 PM EST T/C to pt via [employer] Software Test Analyst #[id number]. Pt agrees to r/s HDF with [facility] [...] 08/17/2024 10:15 AM EST TC placed via [employer] electric motor repair supervisor (ID#[id number]) to r/s HDF [facility] 07/24-08/02 Dx:Acute Dysphagia from 08/17/24. No answer, LVM to call office back and ask to speak to the blue team nurses. * Telephone Encounter - Luther Pardo - 08/17/2024 8:08 AM EST Tc from pt requesting to r/s Apt for 08/17/24. Contact pt at [phone] documented in this encounter Plan of Treatment Upcoming Encounters Date Type Department Care Team (Late st Contact Info) Description 09/03/2024 9:00 AM EST Office Visit [facility] 230 [place] [address] Jaymie Adams NP 230 [place] [address] 09/03/2024 1:30 PM EST Clinical Support [facility] [address] [facility] [place] [address] 09/19/2024 2:15 PM EDT Office Visit [facility] [address] [facility] [place] [address] Name, MD Balta 230 [facility] [place] [address] 12/17/2024 1:30 PM EDT Office Visit [facility] OPT[facility] [address] [place] [address] Harry, Esther, OD [address] [facility] [place] [address] documented as of this encounter Procedures Procedure Name Priority Date/Time Associated Diagnosis Comments BASIC METABOLIC PANEL Routine 08/30/2024 11:50 AM EST Hyperkalemia documented in this encounter Results * (ABNORMAL) Basic Metabolic Panel (08/30/2024 11:50 AM EST) Sodium 144 135 - 145 mmol/L [facility] Potassium 5.1 3.3 - 5.1 mmol/L [facility] Chloride 111(H) 96 - 108 mmol/L [facility] Carbon Dioxide 27 22 - 29 mmol/L [facility] Anion Gap 11(L) 12 - 20 [facility] Urea Nitrogen (BUN) 25(H) 9 - 16 mg/dL [facility] Creatinine, Serum 1.20 0.5 - 1.4 mg/dL [facility] Estimated Glomerular Filt Rate 43 [facility] Comment:Chronic Kidney Disea se: Estimated GFR < 60 mL/min/1.82u1Gnarft Kidney Disease: Estimated GFR < 15 mL/min/1.73m2 Glucose 82 60 - 115 mg/dL [facility] Calcium 9.9 8.4 - 10.2 mg/dL [facility] Blood Venous blood specimen / Unknown 08/30/2024 11:50 AM EST 08/30/2024 1:10 PM EST us Balta Name LAB BLOOD ORDERABLES Final Resul t [facility] [address] [place] [address] [phone] documented in this encounter Visit Diagnoses Diagnosis Hyperkalemia- Primary Hyperpotassemia documented in this encounter Additional Health Concerns Assessment Noted Time PHQ-9 Depression Total Score: 0 09/20/19 24 1:15 PM EDT documented as of this encounter Care Teams Felled Seam Operator Relationship Specialty Start Date End Date Name, MD Balta 230 [place] [address] PCP - General Internal Medicine 06/14/22 [facility] 08/05/24 documented as of this encounter
--- OUTSIDE RECORDS SUMMARY | 2024-08-30 16:01 | XMS_ITS | Encounter Summary ---
Author Organization [employer] Address [address] [facility] 7t [place] [address] Care Team Providers Care Lens Blank Gauger Name Role Phone Name, Balta MAYER Primary Care Provider [phone] Reason for Visit * Reason Onset Date Comments Call Back Request 08/16/2024 Encounter Details Date Type Department Care Team ([facility] Contact Info) Description 08/16/2024 Telephone [facility] 230 [place] [address] Name, MD Balta [address] [place] [address] Call Back Request Social History Tobacco Use [...] the B12 injection. Please contact Daughter at [phone]. (Serbian Speaker) documented in this encounter Plan of Treatment Upcoming Encounters Date Type Department Care Team ([facility] st Contact Info) Description 09/03/2024 9:00 AM EST Office Visit [address] [address] Jaymie Adams NP 230 [place] [address] 09/03/2024 1:30 PM EST Clinical Support [address] [address] 09/19/2024 2:15 PM EDT Office Visit [address] [address] Name, MD Balta 230 [place] [address] 12/17/2024 1:30 PM EDT Office Visit [facility] [address] [place] [address] Esther Mcdonald, OD 230 [place] [address] documented as of this encounter Visit Diagnoses Not on filedocumented in this encounter Additional Health Concerns Assessment Noted Time PHQ-9 Depression Total Score: 0 09/20/19 24 1:15 PM EDT documented as of this encounter Care Teams Lens Blank Gauger Relationship Specialty Start Date End Date Name, MD Balta 230 [place] [address] PCP - General Internal Medicine 06/14/22 [facility] 08/05/24 documented as of this encounter
--- OUTSIDE RECORDS SUMMARY | 2024-08-30 16:01 | XMS_ITS | Encounter Summary ---
Author Organization [employer] Address [address] [facility] [address] 7t [place] [address] Care Team Providers Care Report Developer Name Role Phone Name, Balta MAYER Primary Care Provider [phone] Reason for Visit * Reason Onset Date Comments Chart Prep 08/16/2024 Encounter Details Date Type Department Care Team (Late st Contact Info) Description 08/16/2024 Telephone [facility] [address] [place] [address] Name, MD Balta 230 [place] [address] Chart Prep Social History Tobacco Use Types [...] Description 09/03/2024 9:00 AM EST Office Visit [address] [address] [address] Jaymie Adams NP [address] [place] [address] 09/03/2024 1:30 PM EST Clinical Support [address] [address] 09/19/2024 2:15 PM EDT Office Visit [address] [address] Name, MD Balta [address] [place] [address] 12/17/2024 1:30 PM EDT Office Visit [facility] OPTOMET[facility] [address] [place], [place] [phone] Esther Mcdonald, OD 230 [place] [address] documented as of this encounter Visit Diagnoses Not on filedocumented in this encounter Additional Health Concerns Assessment Noted Time PHQ-9 Depression Total Score: 0 09/20/19 24 1:15 PM EDT documented as of this encounter Care Teams Report Developer Relationship Specialty Start Date End Date Name, MD Balta 230 [place] [address] PCP - General Internal Medicine 06/14/22 [facility] 08/05/24 documented as of this encounter
--- OUTSIDE RECORDS SUMMARY | 2024-08-30 16:01 | XMS_ITS | Encounter Summary ---
Author Organization [employer] [facility] Address [address] [place] [address] 7t [place] [address] Care Team Providers Care Medical Office Administrator Name Role Phone Name, Balta MAYER Primary Care Provider [phone] Encounter Details Date Type Department Care Team (Late st Contact Info) Description 06/14/2022 Orders Only [address] [address] Audrey Mcginnis, JERROD Social History Tobacco Use [...] Description 09/03/2024 9:00 AM EST Office Visit [address] [address] Jaymie Adams NP [address] [place] [address] 09/03/2024 1:30 PM EST Clinical Support [address] [address] 09/19/2024 2:15 PM EDT Office Visit [address] [address] Wojciech, MD Balta [address] [place] [address] 12/17/2024 1:30 PM EDT Office Visit [facility] [address] [place] [address] Esther Mcdonald, OD 230 [place] [address] documented as of this encounter Visit Diagnoses Not on filedocumented in this encounter Care Teams Medical Office Administrator Relationship Specialty Start Date End Date Name, MD Balta 230 [place] [address] PCP - General Internal Medicine 06/14/22 [facility] 08/05/24 documented as of this encounter
--- OUTSIDE RECORDS SUMMARY | 2024-08-30 16:01 | XMS_ITS | Encounter Summary ---
Author Organization [employer] Address [address] [facility] [address] 7t [place] [address] Care Team Providers Care Access Services Representative Name Role Phone Name, Balta MAYER Primary Care Provider [phone] Encounter Details Date Type Department Care Team (Late st Contact Info) Description 04/20/2023 Abstract [facility] MEDICINE 230 [place] [address] Name, MD Balta [address] [place] [address] Social History Tobacco Use Types Packs/Day Years [...] Description 09/03/2024 9:00 AM EST Office Visit [facility] MED[facility] 230 [place] [address] Jaymie Adams NP 230 [place] [address] 09/03/2024 1:30 PM EST Clinical Support [address] [address] 09/19/2024 2:15 PM EDT Office Visit [facility] [address] [place] [address] NameBalta MD 230 [place] [address] 12/17/2024 1:30 PM EDT Office Visit [facility] OPTOMETRY [address] [place] [address] Harry, Esther, OD 230 [place] [address] documented as of this encounter Visit Diagnoses Not on filedocumented in this encounter Additional Health Concerns Assessment Noted Time PHQ-9 Depression Total Score: 4 08/31/19 23 10:26 AM EST documented as of this encounter Care Teams Access Services Representative Relationship Specialty Start Date End Date Balta Jeffrey MD 230 [place] [address] PCP - General Internal Medicine 06/14/22 [facility] 08/05/24 documented as of this encounter
--- OUTSIDE RECORDS SUMMARY | 2024-08-30 16:01 | XMS_ITS | Encounter Summary ---
Author Organization [employer] Address [address] [facility] [address] [place] [address] Care Team Providers Care Workers Compensation Examiner Name Role Phone Name, Balta MAYER Primary Care Provider [phone] Reason for Visit * Reason Onset Date Comments Lab Orders 08/24/2024 Encounter Details Date Type Department Care Team (Late st Contact Info) Description 08/24/2024 Telephone [facility] MEDICINE [address] [place] [phone] Name, MD Balta [address] [place] [phone] Lab Orders Social History Tobacco Use Types [...] PM EST TC placed to Kavitha from [facility] regarding blood work being done on pt. Kavitha asking if provider wanted [facility] to draw labs or if the pt was advised of different instructions. RN informed Kavitha that the provider put in an order for BMP to be completed before pt appointment on 09/03/24, but no instruction on if provider wanted [facility] to draw labs. Kavitha with [facility] states they will draw BMP. * Telephone Encounter - Luis Boston - 08/24/2024 1:08 PM EST Tc from Kavitha from [facility] requesting a call back in regards to bloodwork being done on pt. Kavitha:[phone] documented in this encounter Plan of Treatment Upcoming Encounters Date Type Department Care Team (Late st Contact Info) Description 09/03/2024 9:00 AM EST Office Visit [facility] MEDICINE [address] [place] [phone] Jaymie Adams, HUMBERTO [address] [place] [address] 09/03/2024 1:30 PM EST Clinical Support [facility]INE [address] [place] [address] 09/19/2024 2:15 PM EDT Office Visit [facility] MEDICINE [address] [place] [address] Name, MD Balta [address] [place] [address] 12/17/2024 1:30 PM EDT Office Visit [facility] OPTOMETRY [address] [place] [phone] HarryEsther faustin, OD [address] [place] [address] documented as of this encounter Visit Diagnoses Not on filedocumented in this encounter Additional Health Concerns Assessment Noted Time PHQ-9 Depression Total Score: 0 09/20/19 1:15 PM EDT documented as of this encounter Care Teams Workers Compensation Examiner Relationship Specialty Start Date End Date Name, MD Balta [address] [place] [address] PCP - General Internal Medicine 06/14/22 [facility] 08/05/24 documented as of this encounter
== END 2024-08-30 15:45 | disposition home or self-care (01) ==
PROVIDERS: PCP Internal Medicine Geriatric Medicine; Visit Provider Internal Medicine Hypertension Specialist
DX: N18.9 Chronic kidney disease, unspecified (principal); E87.5 Hyperkalemia
CPT/HCPCS: 99214

== ENCOUNTER 2024-09-12 14:04 | Outpatient (AMB) | payer OTHER, SELFPAY ==
[2024-09-12 15:09] VITALS: BP 132/62; PULSE 56; BMI 35.7
--- NOTE | 2024-09-12 15:09 | A.OFFVIS_ITS ---
Vital Signs 09/12/24 15:09 Height 5 ft Weight 182 lb 15.739 oz BMI 35.7 BP 132/62 Blood Pressure Location Lt brachial Position Sitting Pulse 56 Pulse Source Pulse Oximeter Intake Visit Reasons: r/s 06/20/24 4 mos followup Intake Note: f/s f/up 4 mth Sales Research Analyst Required: Yes Sales Research Analyst Language: Animal Care Technician Name: voice/belarusian/[id number] Accompanied by: Daughter Allergies Penicillins [PENICILLINS] Allergy (Intermediate, Verified 08/30/24 15:30) NAUSEA/HIVES metformin Adverse Reaction (Unknown, Verified 08/30/24 15:30) Diarrhea Medication List - Last Reconciled 09/12/24 by Prem Adkins MD acetaminophen 650 mg (2 x 325 mg) PO Q6H PRN 30 days amlodipine 10 mg PO BEDTIME apixaban (Eliquis) 5 mg PO BID atorvastatin 40 mg PO DAILY 90 days calcium carbonate 1 tab PO DAILY carvedilol 25 mg PO BID cetirizine 10 mg PO DAILY cholecalciferol (vitamin D3) 1 tab PO DAILY cyanocobalamin (vitamin B-12) 1,000 mcg IM Q28D docusate sodium (Colace) 100 mg PO DAILY empagliflozin (Jardiance) 10 mg PO DAILY fluticasone propionate 50 mcg/actuation 1 - 2 sprays intranasal DAILY PRN furosemide 40 mg See Protocol PO DAILY 90 days mirtazapine 15 mg PO BEDTIME omeprazole 40 mg PO BID oxybutynin chloride 5 mg PO BID walker Folding front wheeled walker HPI Comments Details: 78-year-old female with background history of hypertension and diastolic heart failure. She has been doing well. She has no chest pain or shortness of breath. No orthopnea or PND. 06/09/2023: She returns for follow-up. She has been doing well. She had admission in October 2022 at [facility] when she had atrial fibrillation and congestive heart failure. She was cardioverted and since then has been in sinus rhythm. She is on apixaban which she is tolerating well. She asked whether Eliquis a long-term drug and she has been told that this is a long-term drug for her prevent stroke. She is agreeable to take medications and is compliant with medications currently. 02/22/24: Here for f/u. She is complaining of epigastric discomfort. She is short of breath. Blood pressure is elevated. No orthopnea or PND or peripheral edema. 09/12/2024: Here for follow-up. She was recently in the hospital with hyperkalemia. Following with Nephrology. She is complaining of constipation but is using milk of magnesia and increasing fiber in her diet. Denying any cardiovascular symptoms otherwise. [facility] Medical History Epigastric pain Tubular adenoma of colon Preop cardiovascular exam Urinary urgency Pneumonia Hospital discharge follow-up Asthma MARIA R (acute kidney injury) GERD (gastroesophageal reflux disease) Diabetes Osteoarthritis Hyperlipidemia Chronic diastolic heart failure Hypertension JOVANNI (obstructive sleep apnea) Surgical History Hx of cataract surgery Status post total knee replacement, right History of arthroplasty of right knee Hx of colonoscopy H/O: hysterectomy History of salpingoophorectomy History of tonsillectomy Family History Father HTN (hypertension) Mother HTN (hypertension) CVD (cardiovascular disease) Daughter Bone cancer Father Cancer Social History Household Members: Family Housing: House Are you a primary care program director to a significant other at home: No Do you presently have visiting nurse or other home services: Yes Unable to assess alcohol history related to: Unknown Alcohol intake: never Comment: Advised to remove Patient Tobacco Use Status: Never used Tobacco e-Cigarette/Vaping Use: Never Used Second Hand Smoke Exposure: No service: No Current occupational status: retired Current occupation: Right handed Review of Systems Const Denies chills, Denies fatigue, Denies fever(s), Denies frequent falls, Denies weakness, Denies weight gain and Denies weight loss ENT Denies dizziness Card Denies chest pain, Denies leg edema, Denies lightheadedness, Denies palpitations, Denies dyspnea and Denies dyspnea on exertion Resp Denies cough, Denies dyspnea and Denies dyspnea on exertion GI Denies hematochezia Musc Denies abnormal gait, Denies muscle weakness, Denies numbness, Denies radiating pain into limb and Denies tingling Neuro Denies abnormal gait, Denies dizziness, Denies frequent falls, Denies numbness, Denies tingling and Denies weakness Endo Denies fatigue and Denies palpitations Physical Exam Vital Signs: Last Vital Signs Pulse 56 09/12/24 15:09 BP 132/62 09/12/24 15:09 BMI result Body Mass Index 35.7 GENERAL APPEARANCE: in no acute distress, pleasant. NECK: no carotid bruit, no significant jugular venous distention. SKIN: no suspicious lesions, warm and dry. HEART: no murmurs, regular rate and rhythm. LUNGS: Clear to auscultation bilaterally. ABDOMEN: soft, nontender. EXTREMITIES: Trace edema. PERIPHERAL PULSES: equal. NEUROLOGIC: No gross deficits, AAO X 3 Assessment & Plan Assessment & Plan (1) Chronic diastolic heart failure: Code(s): I50.32 - Chronic diastolic (congestive) heart failure Category: Medical Plan Pleasant 78 year female with paroxysmal atrial fibrillation and chronic diastolic heart failure. She is in sinus rhythm currently. She is on anticoagulation with Eliquis 5 mg twice a day. Blood pressure is well controlled. Clinically euvolemic. She should continue same medications for now. Following Nephrology for hyperkalemia. Follow-up in 6 months with us. Thank you for allowing me to participate in the care of your patient. Please feel free to contact me if you have any questions. Coding Level of Care Code Est Pt Level 4 (79552) Diagnoses Chronic diastolic heart failure I50.32
--- OUTSIDE RECORDS SUMMARY | 2024-09-12 16:55 | XMS_ITS | Encounter Summary ---
Author Organization [employer] Address [address] [facility] [address] [place] [address] Care Team Providers Care Glass Fitter Name Role Phone Name, Balta MAYER Primary Care Provider [phone] Reason for Visit * Reason Onset Date Comments Durable Medical Equipment 09/07/2024 Encounter Details Date Type Department Care Team (Late st Contact Info) Description 09/07/2024 Telephone [facility] MEDICINE [address] [place] [address] Name, MD Balta [address] [place] [phone] Durable Medical Equipment Social History Tobacco Use [...] encounter Miscellaneous Notes * Telephone Encounter - Dilcia Shah - 09/07/2024 9:55 AM EST Tc from [facility] from [facility] stating they received script for wheelchair but need record ofphysical therapy treatment for insurance approval. Contact Hima at [phone] documented in this encounter Plan of Treatment Upcoming Encounters Date Type Department Care Team (Late st Contact Info) Description 09/19/2024 2:15 PM EDT Office Visit [facility] MEDICINE [address] [place] [phone] Name, MD Balta [address] [place] [address] 10/02/2024 10:00 AM EDT Clinical Support [facility] MEDICINE [address] [place], [place] [phone] 12/17/2024 1:30 PM EDT Office Visit [facility] OPTOMETRY [address] [place] [phone] Esther Mcdonald, OD [address] [place] [address] documented as of this encounter Visit Diagnoses Not on filedocumented in this encounter Additional Health Concerns Assessment Noted Time PHQ-9 Depression Total Score: 0 09/20/19 24 1:15 PM EDT documented as of this encounter Care Teams Glass Fitter Relationship Specialty Start Date End Date Name, MD Balta [address] [place] [address] PCP - General Internal [facility] documented as of this encounter
--- OUTSIDE RECORDS SUMMARY | 2024-09-12 16:55 | XMS_ITS | Encounter Summary ---
Author Organization [employer] Address [address] [facility] 7t [place] [address] Care Team Providers Care Swimming Pool Maintenance Supervisor Name Role Phone Name, Balta MAYER Primary Care Provider [phone] Reason for Visit * Reason Comments Hospital Follow-up Encounter Details Date Type Department Care Team ([facility] Contact Info) Description 09/03/2024 9:00 AM EST Office Visit [facility] MEDICINE [address] [place] [address] Jaymie Adams NP [address] [place] [address] MARIA R (acute kidney injury) (CMS/HCC) (Primary Dx); Esophagitis; 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); 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) Social History Tobacco Use Types Packs/Day Years [...] AM EDT documented as of this encounter Last Filed Vital Signs Vital Sign Reading Time Taken Comments Blood Pressure 143/71 09/03/2024 9:04 AM EST Pulse 54 09/03/2024 9:04 AM EST Temperature 36 ??C (96.8 ??F) 09/03/2024 9:04 AM EST Respiratory Rate 18 09/03/2024 9:04 AM EST Oxygen Saturation 96% 09/03/2024 9:04 AM EST Inhaled Oxygen Concentration - - Weight 81.6 kg (180 lb) 09/03/2024 9:04 AM EST Height - - Body Mass Index 31.89 02/24/2024 11:14 AM EDT documented in this encounter Progress Notes * Jaymie Adams NP - 09/03/2024 9:00 AM EST Subjective Victorina Mike is a 78 y.o. female who presents to the office for follow up visit - chronic conditions. Presents with daughter who is primary customer care professional but can no longer live alone Interim history: Patient was admitted to [facility] for diverticulitis and hyperkalemia with MARIA R 07/24/24-08/02/24 for . At that time received fluids and antibiotics and her losartan and Aldactone had been discontinued. Patient reports feeling well since discharge, had follow-up labs which revealed hyperkalemia with potassium of 6.8 and acute kidney injury with creatinine of 1.61 She was recently in the hospital for MARIA R with a Cr of 2.26 and resolved prior to discharge. During this admission, K has been corrected with lokelma Losartan on hold Cr is at 1.8 Baseline < 1.0 08/30/24 Off ACEi Cr is down to 1.2 K is at 5.1 now c/o Constipation MARIA R superimposed on CKD Maria R most likely due to hypoperfusion No obstruction based on USG Urine- [employer]- doubt AGN/AIN Renal functino is back to baseline after stopping ACEI Hyperkalemia Due to combination of MARIA R and KERON blockade /aldosterone antogonist REsolved Hold Losartan for now due to K of 5.1 Keep I > O Low K diet Loklema PRN if K > 5.2 Will add Colace for constipation Pharmacy note: Pharmacy Recommendations for provider: Per discharge, patient to continue on PPI for 3 months however only [facility], consider providing script for additional month as planned at discharge Per discharge, please consider repeat labs to monitor renal function and potassium in order to advise on need to resume losartan Background Pharmacist Candi Max, GeorgesD contacted patient to discuss upcoming hospital discharge visit for hyperkalemia : Future Appointments Date Time Provider Department Center 08/17/2024 9:30 AM Balta Jeffrey MD MEDICINE [facility] 08/31/2024 2:30 PM Esther Mcdonald OD VISION [facility] 09/19/2024 2:15 PM Balta Jeffrey MD MEDICINE [facility] Hospital Course and Medication Reconciliation [facility] (07/24/24-08/02/24) Patient presented for evaluation of diarrhea and abdominal pain. Reports recently being started on Linzess which started the diarrhea and abdominal cramping. Patient found to have sigmoid thickening suspicious for diverticulitis. Started on IV abx and hydration. Patient also had MARIA R and hyperkalemia, losartan and spironolactone held. Spironolactone discontinued however losartan held until follow up labs with PCP. Patient seen by GI for dysphagia and EGD done. Found to have gastritis, esophagitis, patulous GEJ. Biopsies and balloon dilation done by GI. Recommended trial of high dose PPI for 3 months then titrate down. Patient discharged home. Medication changes that occurred during hospitalization include: Added Omeprazole 40 mg twice a day Held: losartan Discontinued: spironolactone Medication changes that occurred during hospitalization include: Added: none Changed: none Discontinued: losartan, Linzess (per daughters report) Medbox: Yes Date: 08/14/24 Current concerns: Feeling better , no acute symptoms related to hosp stay Daughter concerned that mother can no longer live at home safely , daughter is trying to live together, needs housing paperwokr completed, mother can no longer administer meds reliably alone, sometimes feels dizzy and with recent dementia (see below) increasing anxiety when alone Spoke to provide to go to housing, was given some paperwork to be completed so daughter and mother can live together Trulicity discharge by gI, was being used for pt, but pt was dehydrated and has stopped drinking Daughter increasingly concerned re memory impairment, Pt frequently can't recall taking her meds regularly Increasing anxiety and confusion sri when outside of the house Patient Active Problem List Diagnosis Chronic constipation Chronic diastolic heart failure (CMS/HCC) Cobalamin deficiency Hypertension Hyperlipidemia Lentiginosis Obstructive sleep apnea syndrome Pernicious anemia Primary osteoarthritis of both knees Tubular adenoma of colon Vitamin D deficiency 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 Cardiovascular: Negative for palpitations. Gastrointestinal: Positive for abdominal pain. Negative for abdominal distention, diarrhea and nausea. Genitourinary: Negative for dysuria. Musculoskeletal: Negative for arthralgias. Skin: Negative for color change. Neurological: Positive for dizziness. Negative for speech difficulty. Psychiatric/Behavioral: Positive for decreased concentration. Negative for agitation. Objective Visit Vitals BP (!) 143/71 Pulse 54 Temp 96.8 ??F (36 ??C) (Temporal) Resp 18 Wt 180 lb (81.6 kg) SpO2 96% BMI 31.89 kg/m?? Smoking Status Never BSA 1.9 m?? Physical Exam Vitals reviewed. Constitutional: Appearance: She is obese. HENT: Head: Normocephalic and atraumatic. Nose: Nose normal. Eyes: Conjunctiva/sclera: Conjunctivae normal. Cardiovascular: Rate and Rhythm: Normal rate. Rhythm irregular. Pulmonary: Effort: Pulmonary effort is normal. Breath sounds: Normal breath sounds. Musculoskeletal: Cervical back: Normal range of motion and neck supple. Neurological: General: No focal deficit present. Mental Status: She is alert. Mental status is at baseline. Lab Results Component Value Date GLUCOSE 82 08/30/2024 NA 144 08/30/2024 K 5.1 08/30/2024 CO2 27 08/30/2024 CL 111 (H) 08/30/2024 BUN 25 (H) 08/30/2024 CREATININE 1.20 08/30/2024 Lab Results Component Value Date HGBA1C 5.3 09/03/2024 Assessment/Plan Problem List Items Addressed This Visit Type 2 diabetes mellitus with obesity ([facility]/HCC) ([facility]) Relevant Orders POCT Glucose (Completed) POCT HGB A1C (Completed) MARIA R (acute kidney injury) ([facility]) - Primary Current Assessment & Plan Resolving Daughter will bring paperwork related to housing to medical records. I agree that pt is no longer medically stable to live alone and should have roll tension tester caregiver available (daughter) Mild vascular dementia ([facility]) Current Assessment & Plan Presumed vascular dementia, Referral to nursing for baseline assessment Follow up set up for ongoing work up Lifestyle supports reviewed Esophagitis Current Assessment & Plan Improving, Has seen GI since discharge, Discontinued trulicity Another 30 day rx of bid omeprazole sent base on hosp discharge paperwork for treatment duration of90 days Current Outpatient Medications Medication Sig Dispense Refill Alcohol Swabs (Alcohol Prep) 70 % pads USE TWICE DAILY 100 each 11 amLODIPine (Norvasc) 10 MG tablet Take 10 mg by mouth at bedtime. atorvastatin (Lipitor) 40 MG tablet Take 1 tablet by mouth at bed time. calcium carbonate 1500 (600 Ca) MG tablet TAKE 1 TABLET BY MOUTH EVERY MORNING 90 tablet 3 carvedilol (Coreg) 25 MG tablet TAKE 1 TABLET BY MOUTH TWICE DAILY IN THE MORNING AND IN THE EVENING cetirizine (ZyrTEC) 10 MG tablet TAKE 1 TABLET BY MOUTH EVERY MORNING 30 tablet 5 cholecalciferol (Vitamin D-3) 25 MCG tablet TAKE 1 TABLET BY MOUTH EVERY MORNING 90 tablet 3 cyanocobalamin (Vitamin B-12) 1000 MCG/ML injection INJECT 1 ML INTRAMUSCULARLY EVERY MONTH DIRECTED 1 mL 0 docusate sodium (Colace) 100 MG capsule take 1 Tablet by Oral route 2 times every day - PURCHASING OTC Eliquis 5 MG tablet Take 5 mg by mouth 2 times daily. ferrous gluconate (Fergon) 324 (38 Fe) MG tablet TAKE 1 TABLET BY MOUTH EVERY MORNING 90 tablet 1 fluticasone (Flonase) 50 MCG/ACT nasal spray INSTILL 1-2 SPRAYS IN EACH NOSTRIL ONCE DAILY NEEDED 48 g 0 FREESTYLE LITE test strip TEST BLOOD SUGAR TWICE DAILY DIRECTED 100 strip 5 furosemide (Lasix) 40 MG tablet Take 1 tablet by mouth in the morning. Jardiance 10 MG Take 10 mg by mouth in the morning. lactulose (Chronulac) 10 GM/15ML solution Take 15 mL (10 g) by mouth in the morning. 475 mL 11 mirtazapine (Remeron) 15 MG tablet Take 15 mg by mouth at bedtime. omeprazole (PriLOSEC) [address] capsule Take 1 capsule (40 mg) by mouth 2 times daily. 60 capsule 0 oxybutynin (Ditropan) 5 MG tablet TAKE 1 TABLET BY MOUTH TWICE DAILY IN THE MORNING AND AT BEDTIME NEEDED 180 tablet 3 TRUEplus Lancets 33G misc TEST BLOOD SUGAR TWICE DAILY DIRECTED 100 each 5 Current Facility-Administered Medications Medication Dose Route Frequency Provider Last Rate Last Admin cyanocobalamin (Vitamin B-12) injection 1,000 mcg 1,000 mcg Intramuscular q30 days Balta Jeffrey MD 1,000 mcg at 04/25/23 0900 cyanocobalamin (Vitamin B-12) injection 1,000 mcg 1,000 mcg Intramuscular q30 days Balta Jeffrey MD 1,000 mcg at 09/20/23 0146 cyanocobalamin (Vitamin B-12) injection 1,000 mcg 1,000 mcg Intramuscular q30 days Balta Jeffrey MD 1,000 mcg at 09/03/24 0938 Visit Conducted in: Emirati Translation by: Provided by [facility] staff member Manfred , * Flores Cabrera RN - 09/03/2024 9:00 AM EST Pt booked for RN visit for monthly B12 injection and baseline memory test ([facility] preferred) on 10/02/24. documented in this encounter Miscellaneous Notes * Assessment & Plan Note - Jaymie Adams NP - 09/03/2024 9:57 AM ESTAssociated Problem(s): MARIA R (acute kidney injury) (CMS/HCC) Resolving Daughter will bring paperwork related to housing to medical records. I agree that pt is no longer medically stable to live alone and should have roll tension tester caregiver available (daughter) * Assessment & Plan Note - Jaymie Adams NP - 09/03/2024 9:55 AM ESTAssociated Problem(s): Esophagitis Improving, Has seen GI since discharge, Discontinued trulicity Another 30 day rx of bid omeprazole sent base on hosp discharge paperwork for treatment duration of90 days * Assessment & Plan Note - Jaymie Adams NP - 09/03/2024 9:54 AM ESTAssociated Problem(s): Mild vascular dementia (CMS/HCC) Presumed vascular dementia, Referral to nursing for baseline assessment Follow up set up for ongoing work up Lifestyle supports reviewed documented in this encounter Plan of Treatment Upcoming Encounters Date Type Department Care Team (Late st Contact Info) Description 09/19/2024 2:15 PM EDT Office Visit [facility] MEDICINE [address] [place] [address] Name, MD Balta [address] [place] [address] 10/02/2024 10:00 AM EDT Clinical Support [facility] MEDICINE [address] [place] [address] 12/17/2024 1:30 PM EDT Office Visit [facility] OPTOMETRY [address] [place], [place] [phone] Harry, Esther, OD [address] [place] [address] documented as of this encounter Procedures Procedure Name Priority Date/Time Associated Diagnosis Comments POCT GLYCATED HEMOGLOBIN, TOTAL Routine 09/03/2024 9:15 AM EST 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) (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) documented in this encounter Results * POCT HGB A1C (09/03/2024 9:15 AM EST) Hemoglobin A1C 5.3 4.0 - 6.0 % QC Media Lot # [id number] Lot# Expiration Date [id number] Blood 09/03/2024 9:15 AM EST us Jaymie Adams NP POINT OF CARE TEST ENTER/EDIT OR DERABLES Final Result * POCT Glucose (09/03/2024 9:10 AM EST) Glucose Blood, POC 68 60 - 200 mg/dL QC Media Lot # [id number] Lot# Expiration Date Blood Capillary blood specimen / Unknown 09/03/2024 9:10 AM EST Result [facility] Jaymie Adams NP POINT OF CARE TEST ENTER/EDIT OR DERABLES Final Result documented in this encounter Visit Diagnoses Diagnosis MARIA R (acute kidney injury) ([facility])- Primary Esophagitis Unspecified esophagitis Type 2 diabetes mellitus with obesity ([facility]) (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) documented in this encounter Administered Medications Active Administered Medications - up to 3 most recent administrations Medication Order MAR Action Action Date Dose Rate Site cyanocobalamin (Vitamin B-12) injection 1,000 mcg 1,000 mcg, Intramuscular, Every 30 days, First dose on Tue08/31/23 at 0900Indications:Cobalamin deficiency Given 09/03/2024 9:38 AM EST 1,000 mcg Right Deltoid Given 06/25/2024 10:40 AM EST 1,000 mcg R ight Deltoid Given 05/24/2024 1:21 PM EST 1,000 mcg Ri ght Deltoid documented in this encounter Additional Health Concerns Assessment Noted Time PHQ-9 Depression Total Score: 0 09/20/19 1:15 PM EDT documented as of this encounter Care Teams Swimming Pool Maintenance Supervisor Relationship Specialty Start Date End Date Name, MD Balta [address] [place] [address] PCP - General Internal Medicine 06/14/22 [facility] 08/05/24 documented as of this encounter
--- OUTSIDE RECORDS SUMMARY | 2024-09-12 16:55 | XMS_ITS | Encounter Summary ---
Author Organization [employer] Address [address] [facility] 7t [place] [address] Care Team Providers Care Daycare Director Name Role Phone Name, Balta MAYER Primary Care Provider [phone] Reason for Visit * Reason Onset Date Comments ER Follow-up 08/06/2024 Encounter Details Date Type Department Care Team ([facility] Contact Info) Description 08/06/2024 Telephone [facility] MEDICINE [address] [place] [address] Name, MD Balta [address] [place] [id number] ER Follow-up Social History Tobacco Use Types [...] from pt requesting a HDF appt. Hospital: [facility] Date of admission: 07/24/24 Discharge date: 08/02/24 Diagnosed: Acute Dysphagia *Send message to [facility] Clinical Care Coordinators documented in this encounter Plan of Treatment Upcoming Encounters Date Type Department Care Team (Late st Contact Info) Description 09/19/2024 2:15 PM EDT Office Visit [facility] MEDICINE [address] [place] [address] Name, MD Balta [address] [place] [address] 10/02/2024 10:00 AM EDT Clinical Support [facility] MEDICINE [address] [place] [address] 12/17/2024 1:30 PM EDT Office Visit [facility] OPTOMETRY [address] [place] [address] Esther Mcdonald, OD [address] [place] [address] documented as of this encounter Visit Diagnoses Not on filedocumented in this encounter Additional Health Concerns Assessment Noted Time PHQ-9 Depression Total Score: 0 09/20/19 24 1:15 PM EDT documented as of this encounter Care Teams Daycare Director Relationship Specialty Start Date End Date Name, MD Balta [address] [place] [address] PCP - General Internal Medicine 06/14/22 [facility] 08/05/24 documented as of this encounter
--- OUTSIDE RECORDS SUMMARY | 2024-09-12 16:55 | XMS_ITS | Encounter Summary ---
Author Organization [employer] Address [address] [facility] [address] 7[address] [place] [address] Care Team Providers Care Melter Supervisor Name Role Phone Name, Balta MAYER Primary Care Provider Encounter Details Date Type Department Care Team (Late st Contact Info) Description 07/20/2024 Community Care Management [facility] MEDICINE [address] [place], [place] [phone] Epic[employer] Link, Physician, Social History Tobacco Use [...] Description 09/19/2024 2:15 PM EDT Office Visit [facility] MEDICINE [address] [place] [address] Name, MD Balta [address] [place] [address] 10/02/2024 10:00 AM EDT Clinical Support [facility] MEDICINE [address] [place] [address] 12/17/2024 1:30 PM EDT Office Visit [facility] OPTOMETRY [address] [place] [address] Harry, Esther, OD [address] [place] [address] documented as of this encounter Visit Diagnoses Not on filedocumented in this encounter Additional Health Concerns Assessment Noted Time PHQ-9 Depression Total Score: 0 09/20/19 24 1:15 PM EDT documented as of this encounter Care Teams Melter Supervisor Relationship Specialty Start Date End Date Name, MD Balta [address] [place] [address] PCP - General Internal Medicine 06/14/22 [facility] 08/05/24 documented as of this encounter
--- OUTSIDE RECORDS SUMMARY | 2024-09-12 16:56 | XMS_ITS | Encounter Summary ---
Author Organization [email or web address] Address [address] [facility] [address] [address] [place] [address] Care Team Providers Care Drier Belt Conveyor Name Role Phone Name, Balta MAYER Primary Care Provider [phone] Reason for Visit * Reason Onset Date Comments Chart Prep 08/16/2024 Encounter Details Date Type Department Care Team (Late st Contact Info) Description 08/16/2024 Telephone [facility] MED & PEDS [address] [place] [address] Name, MD Balta [address] [place] [address] Chart Prep Social History Tobacco Use Types [...] Description 09/19/2024 2:15 PM EDT Office Visit [facility] MEDICINE [address] [place] [phone] Name, MD Balta [address] [place] [address] 10/02/2024 10:00 AM EDT Clinical Support [facility] MEDICINE [address] [place] [address] 12/17/2024 1:30 PM EDT Office Visit [facility] OPTOMETRY [address] [place] [address] Esther Mcdonald, OD [address] [place] [address] documented as of this encounter Visit Diagnoses Not on filedocumented in this encounter Additional Health Concerns Assessment Noted Time PHQ-9 Depression Total Score: 0 09/20/19 24 1:15 PM EDT documented as of this encounter Care Teams Drier Belt Conveyor Relationship Specialty Start Date End Date Name, MD Balta [address] [place] [address] PCP - General Internal Medicine 06/14/22 [facility] 08/05/24 documented as of this encounter
--- OUTSIDE RECORDS SUMMARY | 2024-09-12 16:56 | XMS_ITS | Encounter Summary ---
Author Organization [employer] Address [address] [place] [address] Care Team Providers Care Forestry Workers Name Role Phone Name, Balta MAYER Primary Care Provider Encounter Details Date Type Department Care Team (Late st Contact Info) Description 04/20/2023 Abstract [facility] MEDICINE [address] [place] [address] Name, MD Balta [address] [place] [address] Social History Tobacco Use Types Packs/Day Years [...] Description 09/19/2024 2:15 PM EDT Office Visit [facility] MEDICINE [address] [place] [address] NameBalta MD [address] [place] [address] 10/02/2024 10:00 AM EDT Clinical Support [facility] MEDICINE [address] [place] [address] 12/17/2024 1:30 PM EDT Office Visit [facility] OPTOMETRY [address] [place] [address] Harry, Esther, OD [address] [place] [address] documented as of this encounter Visit Diagnoses Not on filedocumented in this encounter Additional Health Concerns Assessment Noted Time PHQ-9 Depression Total Score: 4 08/31/19 23 10:26 AM EST documented as of this encounter Care Teams Forestry Workers Relationship Specialty Start Date End Date Balta Jeffrey MD [address] [place] [address] PCP - General Internal Medicine 06/14/22 [facility] 08/05/24 documented as of this encounter
--- OUTSIDE RECORDS SUMMARY | 2024-09-12 16:56 | XMS_ITS | Encounter Summary ---
Author Organization [employer] Address [address] [facility] 7t [place] [address] Care Team Providers Care Treasury Assistant Name Role Phone Name, Balta MAYER Primary Care Provider [phone] Reason for Visit * Reason Onset Date Comments Lab Orders 08/24/2024 Encounter Details Date Type Department Care Team (Late st Contact Info) Description 08/24/2024 Telephone [facility] MEDICINE [address] [place] [address] Name, MD Balta [address] [place] [phone] Lab Orders Social History Tobacco Use Types [...] PM EST TC placed to Kavitha from [facility] regarding blood work being done on pt. Kavitha asking if provider wanted [facility] to draw labs or if the pt was advised of different instructions. RN informed Kavitha that the provider put in an order for BMP to be completed before pt appointment on 09/03/24, but no instruction on if provider wanted [facility] to draw labs. Kavitha with [facility] states they will draw BMP. * Telephone Encounter - Luis Boston - 08/24/2024 1:08 PM EST Tc from Kavitha from [facility] requesting a call back in regards to bloodwork being done on pt. Kavitha:[phone] documented in this encounter Plan of Treatment Upcoming Encounters Date Type Department Care Team (Late st Contact Info) Description 09/19/2024 2:15 PM EDT Office Visit [facility] MEDICINE [address] [place] [address] Name, MD Balta [address] [place] [address] 10/02/2024 10:00 AM EDT Clinical Support [facility] MEDICINE [address] [place] [address] 12/17/2024 1:30 PM EDT Office Visit [facility] OPTOMETRY [address] [place] [address] Harry, Esther, OD [address] [place] [address] documented as of this encounter Visit Diagnoses Not on filedocumented in this encounter Additional Health Concerns Assessment Noted Time PHQ-9 Depression Total Score: 0 09/20/19 24 1:15 PM EDT documented as of this encounter Care Teams Treasury Assistant Relationship Specialty Start Date End Date Name, MD Balta [address] [place] [address] PCP - General Internal Medicine 06/14/22 [facility] 08/05/24 documented as of this encounter
--- OUTSIDE RECORDS SUMMARY | 2024-09-12 16:56 | XMS_ITS | Encounter Summary ---
Author Organization [employer] Address [address] [place] [address] Care Team Providers Care Police Commissioner Name Role Phone Name, Balta MAYER Primary Care Provider [phone] Reason for Visit * Reason Comments Med Refill Encounter Details Date Type Department Care Team (Late st Contact Info) Description 03/05/2024 Refill [facility] [address] [place], [place] [id number] Name, MD Balta [address] [place] [address] Social History Tobacco Use Types Packs/Day Years [...] Description 09/19/2024 2:15 PM EDT Office Visit [facility] [address] [place] [address] NameBalta MD [address] [place] [address] 10/02/2024 10:00 AM EDT Clinical Support [facility] [address] [place] [address] 12/17/2024 1:30 PM EDT Office Visit [facility] [address] [place] [address] Harry, Esther, OD [address] [place] [address] documented as of this encounter Visit Diagnoses Not on filedocumented in this encounter Additional Health Concerns Assessment Noted Time PHQ-9 Depression Total Score: 0 09/20/19 24 1:15 PM EDT documented as of this encounter Care Teams Police Commissioner Relationship Specialty Start Date End Date Balta Jeffrey MD [address] [place] [address] PCP - General Internal Medicine 06/14/22 Samir [facility] 08/05/24 documented as of this encounter
--- OUTSIDE RECORDS SUMMARY | 2024-09-12 16:56 | XMS_ITS | Encounter Summary ---
Author Organization [employer] Address [address] [place] [address] Care Team Providers Care Vocational Technical Education Teacher Name Role Phone Name, Balta MAYER Primary Care Provider [phone] Reason for Visit * Reason Onset Date Comments Call Back Request 08/16/2024 Encounter Details Date Type Department Care Team ([facility] Contact Info) Description 08/16/2024 Telephone [facility] MED[facility] [address] [place] [id number] Name, MD Balta [address] [place] [phone] Call Back Request Social History Tobacco Use [...] the B12 injection. Please contact Daughter at [phone]. (Ukrainian Speaker) documented in this encounter Plan of Treatment Upcoming Encounters Date Type Department Care Team ([facility] st Contact Info) Description 09/19/2024 2:15 PM EDT Office Visit [facility] [address] [place] [address] Name, MD Balta [address] [place] [address] 10/02/2024 10:00 AM EDT Clinical Support [facility] [address] [place] [address] 12/17/2024 1:30 PM EDT Office Visit [facility] [address] [place] [address] Harry, Esther, OD [address] [place] [address] documented as of this encounter Visit Diagnoses Not on filedocumented in this encounter Additional Health Concerns Assessment Noted Time PHQ-9 Depression Total Score: 0 09/20/19 24 1:15 PM EDT documented as of this encounter Care Teams Vocational Technical Education Teacher Relationship Specialty Start Date End Date Name, MD Balta [address] [place] [address] PCP - General Internal Medicine 06/14/22 Samir [facility] 08/05/24 documented as of this encounter
--- OUTSIDE RECORDS SUMMARY | 2024-09-12 16:56 | XMS_ITS | Encounter Summary ---
Author Organization [employer] Address [address] [place] [address] Care Team Providers Care Purchasing Administrator Name Role Phone Name, Balta MAYER Primary Care Provider [phone] Reason for Visit * Reason Onset Date Comments Chart Prep 08/23/2024 Encounter Details Date Type Department Care Team (Late st Contact Info) Description 08/23/2024 Telephone [facility] [address] [place] [address] Kirsty Garcia MA Chart Prep Social History [...] Description 09/19/2024 2:15 PM EDT Office Visit [facility] [address] [place] [address] Name, MD Balta [address] [place] [address] 10/02/2024 10:00 AM EDT Clinical Support [facility] [address] [place] [address] 12/17/2024 1:30 PM EDT Office Visit [facility] [address] [place] [address] Esther Mcdonald, OD [address] [place] [address] documented as of this encounter Visit Diagnoses Not on filedocumented in this encounter Additional Health Concerns Assessment Noted Time PHQ-9 Depression Total Score: 0 09/20/19 24 1:15 PM EDT documented as of this encounter Care Teams Purchasing Administrator Relationship Specialty Start Date End Date Name, MD Balta [address] [place] [address] PCP - General Internal Medicine 06/14/22 Samir [facility] 08/05/24 documented as of this encounter
--- OUTSIDE RECORDS SUMMARY | 2024-09-12 16:56 | XMS_ITS | Continuity of Care Document ---
Author Organization [facility] Address [address] [place] [address] Phone Care Team Providers Care Retention Manager Name Role Phone MD LEYLA Schreiber, Julia [...] Provider Providers Copied on Encounter [facility], [address], [place], [place], [id number], [place] tel:[phone] [facility] blurry vision (chief complaint) Combined forms of age-related cataract, bilateralDry eye syndrome of bilateral lacrimal glandsOpen angle with borderline findings, high risk, bilateral MD Julia Kitchen. [address], [place], [place], [id number] , [place]. tel: [phone] Referring Provider: Del Camp MD, [facility] [address] , [place], [address]. tel:[phone] Family History Family Member Type Diagnosis Age At Onset No Information Payers Payer name Insurance type Covered democrat ID randy goff(s) [facility] [id number] Social History Type Description Quantity Date Captured [...]
--- OUTSIDE RECORDS SUMMARY | 2024-09-12 16:56 | XMS_ITS | Clinical Summary ---
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 4 each 11 024 2024 Discontinued(M ed list cleanup (will not trigger notification to Pharmacy)) Trulicity 1.5 MG/0.5ML solution auto-injector INJECT ONE PEN (=1.5MG) SUBCUTANEOUSLY ONCE A WEEK DIRECTED 2024 Discontinued(S kelle effects) Linzess 145 MCG capsule Take 1 capsule by mouth in the morning. 025 2024 Discontinued(M ed list cleanup (will not trigger notification to Pharmacy)) omeprazole (PriLOSEC) [address] capsule Take 1 capsule by mouth 2 times daily. 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 I agree that pt is no longer medically stable to live alone and should have time broker caregiver available (daughter) Choking 01/05/2024 Cough 01/05/2024 Hospital discharge follow-up 01/05/2024 Lymphedema 03/29/2023 Urinary incontinence 03/29/2023 Urinary urgency 03/29/2023 Atrial fibrillation 11/17/2022 Status post total knee replacement, right 2022 Varicose veins of right lower extremity with inf lammation 11/17/2022 Type 2 diabetes mellitus with obesity ([facility]) 08/31/2022 Lentiginosis 10/13/2018 Obstructive sleep apnea syndrome 10/02/2018 Chronic diastolic heart failure 05/25/2018 Overview (09/21/2023): [address] [phone] CARDIOLOGY NAME: SAMMIE FRANCOIS DIRECTOR INFORMATION: [facility] UNIT #: [id number] PATIENT LOCATION: EKG REFERRING PHYSICIAN: ANIYA BERNARD MD DATE OF : 41 PCP: ANIYA BERNARD MD SEX: Female DATE: 04/20/18 CARD ECHO 2D M MODE W DOPPLER COLOR [phone] SYMPTOMS,HX?: I10 ESSENTIAL HTN; R60.0 LOCALIZED EDEMA Transthoracic Echocardiogram Patient (Last, First, Middle): SAMMIE FRANCOIS E Gender: Female Date of : 1945 Age: 72 Procedure Date: 04/20/2018 Procedure Type: Transthoracic Echocardiogram Location: OP Height: 157.48 cm Weight: 81.65 kg BSA: 1.83 m2 Heart Rate: bpm BP: 144 / 78 mmHg Refueling Ramp Supervisor: Referring MD: ANIYA BERNARD MD Symptoms: I10 [...] of Final JANI IYER MD Report #: [id number] Status: Signed Dict: 04/20/18/ Trans: /SUBRAH DATE [...] Encounters Date Type Department Care Team Description 09/07/[address] [address] Balta Jeffrey MD Durable Medical Equipment 09/03/2024 9:00 AM EST Office Visit [address] [address] Jaymie Adams NP MARIA R (acute kidney injury) ([facility]) (Primary Dx); Esophagitis; 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); 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 ([facility]) 08/24/[address] [address] Balta Jeffrey MD Lab Orders 08/23/2024 Telephone [facility] MEDICINE [address] [place] [address] Kirsty Garcia MA Chart Prep 08/17/[address] [address] Balta Jeffrey MD Appointment Request 08/16/[address] [address] Balta Jeffrey MD Call Back Request 08/16/2024 Telephone [facility] [address] [place] [address] Balta Jeffrey MD Chart Prep 08/10/2024 Telephone [facility] WALK-IN CENTER [address] [place] [address] Caity Rain MD 08/10/[address] [address] Balta Jeffrey MD 08/10/2024 Orders Only [address] [address] Balta Jeffrey MD 08/06/2024 Patient Outreach [address] [address] Balta Jeffrey MD Transition Of Care (Tcm) (HDF- scheduled ) 08/06/[address] [address] Balta Jeffrey MD ER Follow-up 07/29/2024 Refill [facility] [address] [place] [address] Balta Jeffrey MD Vitamin D deficiency 07/27/[address] [address] Balta Jeffrey MD FYI 07/26/2024 Telephone [facility] MEDICINE [address] [place] [address] Flores Cabrera, JERROD 07/24/2024 Orders Only [facility] External Provider, [facility] 07/20/2024 Telephone [facility] MEDICINE [address] [place] [address] Balta Jeffrey MD Durable Medical Equipment 07/20/2024 Community Care Management [facility] [address] [facility] [place] [address] [employer] Physician [place], 07/16/2024 Refill [facility] [address] [facility] [place] [address] Name, MD Balta 06/25/2024 10:30 AM EST Clinical Support [facility] [address] [facility] [address] Flores Cabrera, JERROD Cobalamin deficiency 06/25/2024 Travel from Last 3 [...] the past 12 months, has t he [employer], gas, oil or water company threatened to [...] (180 lb) 09/03/2024 9:04 AM EST Height 160 cm (5' 3 ) 02/24/2024 11:14 AM EDT Body Mass Index 31.89 02/24/2024 11:14 AM EDT Plan of Treatment Upcoming Encounters Date Type Department Care Team (Late st Contact Info) Description 09/19/2024 2:15 PM EDT Office Visit [facility] MEDICINE [address] [place] [phone] Name, MD Balta [address] [place] [address] 10/02/2024 10:00 AM EDT Clinical Support [facility] MEDICINE [address] [place] [address] 12/17/2024 1:30 PM EDT Office Visit [facility] OPTOMETRY [address] [place] [address] Esther Mcdonald, OD [address] [place] [address] Health Maintenance Due Date Last Done Comments Diabetes: Foot Exam 11/11/1953 Eye Exam 11/11/1953 Zoster Vaccines (2 of 3) 09/12/2017 07/18/2017 RSV Patients and Patients Aged 60 years or older (1 - 1-dose 75+ series) 11/11/2018 COVID-19 Vaccine ( season) 2024 08/13/2021, 09/19/2020, 08/22/2020 Influenza Vaccine (#1) 2024 , 04/18/2019, 04/10/2018, Additional history exists Depression Screening 09/19/2024 09/20/2023, 09/20/19 SDOH Screening 09/19/2024 09/20/2023 Lipid Panel 12/25/2024 12/26/2023, 09/08, 08/12/2020 Diabetes: Urine Protein Screening 12/26/2024 12/27/2023, 08/12/2020 Alcohol/Substance Use Screening 02/23/2025 02/24/2024 Tobacco Screening 02/23/2025 02/24/2024 Diabetes: Hemoglobin A1C 03/03/202509/03/2 025, 02/24/2024, 06/15/2023, Additional history exists DTaP/Tdap/Td Vaccines (2 - Td or Tdap) [...] 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) ([facility]) POCT GLUCOSE Routine 09/03/2024 9:10 AM EST 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) ([facility]) BASIC METABOLIC PANEL Routine 08/30/2024 11:50 AM [...] TO CULTURE Routine 07/24/2024 5:15 PM EST ALBUMIN, RANDOM URINE W/CREATININE Routine 12/27/2023 9:45 AM EDT Hypertension, unspecified type LIPID PANEL, STANDARD Routine 12/26/2023 1:22 PM EDT Hypertension, unspecified type from Last 3 Months or Most Recently Relevant to Health Maintenance Results * POCT HGB A1C (09/03/2024 9:15 AM EST) Hemoglobin A1C 5.3 4.0 - 6.0 % QC Media Lot # [id number] Lot# Expiration Date Blood 09/03/2024 9:15 AM EST Jaymie Adams NP POINT OF CARE TEST ENTER/EDIT OR DERABLES Final Result * POCT Glucose (09/03/2024 9:10 AM EST) Glucose Blood, POC 68 60 - 200 mg/dL QC Media Lot # [id number] Lot# Expiration Date Blood Capillary blood specimen / Unknown 09/03/2024 9:10 AM EST Jaymie Adams NP POINT OF CARE TEST ENTER/EDIT OR DERABLES Final Result * (ABNORMAL) Basic Metabolic Panel (08/30/2024 11:50 AM EST) Only the most recent of4 resultswithin the time period is included. Sodium 144 135 - 145 mmol/L [facility] Potassium 5.1 3.3 - 5.1 mmol/L [facility] Chloride 111(H) 96 - 108 mmol/L [facility] Carbon Dioxide 27 22 - 29 mmol/L [facility] Anion Gap 11(L) 12 - 20 [facility] Urea Nitrogen (BUN) 25(H) 9 - 16 mg/dL [facility] Creatinine, Serum 1.20 0.5 - 1.4 mg/dL [facility] Estimated Glomerular Filt Rate 43 [facility] Comment:Chronic Kidney Disea se: Estimated GFR < 60 mL/min/1.54q2Hotmys Kidney Disease: Estimated GFR < 15 mL/min/1.73m2 Glucose 82 60 - 115 mg/dL [facility] Calcium 9.9 8.4 - 10.2 mg/dL [facility] Blood Venous blood specimen / Unknown 08/30/2024 11:50 AM EST 08/30/2024 1:10 PM EST us Balta Name LAB BLOOD ORDERABLES Final Resul t [facility] [address] [place] [address] [phone] * US RENAL BI (08/12/2024 12:35 PM EST) Anatomical Region Laterality Modality Abdomen Ultrasound 08/12/2024 12:3 5 PM EST Narrative 08/12/2024 12:36 PM EST ? [facility] ?[address] ?[place] [address] ? Ultrasound Report ? Signed ? Patient: Fischer Mike,Jayne ?MR#: MM ?? [id number] ? : 1945 ?Acct:[id number] ? Age/Sex: 78 / F ?ADM Date: 01/31/25 ? Loc: HO.IMC ?485-1 ? Attending : Ernesto Morgan DO ? Ordering Physician: Ernesto Morgan DO ?? Date of Service: 08/12/24 ?? Procedure(s): US renal BI ?? Accession Number(s): [id number] ? cc: Name,Balta MAYER; Ernesto Morgan DO [...] DD/ 1235 ? TD/TT: 08/12/24 1235 ? Damage Prevention Coordinator: ? Procedure Note Dondimitriter, Image - 08/12/2024 [place] [address] Ultrasound Report Signed Patient: Sammie Francois EMR#: [id number] : 1945cct:[id number] Age/Sex: 78 / FADM Date: 08/10/24 Loc: [facility] 485-[address]: Ernesto Morgan DO Ordering Physician: Ernesto Morgan DO Date of Service: 08/12/24 Procedure(s): US renal BI Accession Number(s): [id number] cc: Balta Jeffrey MD; Ernesto Morgan DO CLINICAL HISTORY: MARIA R [...] 08/12/24 1236 DD/ 1235 TD/TT: 08/12/24 1235 Damage Prevention Coordinator: [facility] External Provider IMG US PROCEDURES Final Result * FL Esophagus Barium Swallow w/Air (07/30/2024 7:00 AM EST) Anatomical Region Laterality Modality Head, Neck Radiographic Melissa ging 07/30/2024 7:00 AM EST Narrative 07/31/2024 9:06 AM EST ? [facility] ?[address] ?[place] [address] ? Fluoroscopy Report ? Signed ? Patient: Sammie Francois ?MR#: MM ?? [id number] ? : 1945 ?Acct:[id number] ? Age/Sex: 78 / F ?ADM Date: 07/24/24 ? Loc: HO.S3 ?387-1 ? Attending Dr: Renan Melton MD ? Ordering Physician: Renan Melton MD ?? Date of Service: 07/30/24 ?? Procedure(s): FL barium swallow with air ?? Accession Number(s): [id number] ? cc: Renan Melton MD; Name,Balta MAYER [...] ??07/31/2024 09:04 AM EST RP ?? Workstation: [id number] ? Dictated By: ?Gabriel Ribeiro ? Signed By: ?<Electronically signed by Gabriel Ribeiro in OV> ? 07/31/24 0904 ?<Electronically signed by Troy Acuna MD in OV> ? 07/31/24 0906 ? DD/ 0700 ? TD/TT: 07/30/24 1110 ? Damage Prevention Coordinator: ? Procedure Note Brendan Pitts - 07/31/[address] [address] Fluoroscopy Report Signed Patient: Sammie Francois EMR#: [id number] : 4Acct:[id number] Age/Sex: 78 / FADM Date: 07/24/24 Loc: HO.S3 387-[address]: Renan Melton MD Ordering Physician: Renan Melton MD Date of Service: 07/30/24 Procedure(s): FL barium swallow with air Accession Number(s): [id number] cc: Renan Melton MD; Name,Balta MAYER EXAMINATION: [...] 07/31/24 0906 DD/ 0700 TD/TT: 07/30/24 1110 Damage Prevention Coordinator: us [facility] Exter nal Provider IMG FLUOROSCOPY PROCEDURES Edited Result - Final * Lactic Acid (07/24/2024 9:08 PM EST) Lactic Acid 1.0 0.5 - 2.0 mmol/L [facility] 07/24/2024 9:08 PM EST 07/24/2024 9:17 PM EST us Generic External Data Provider LAB BLOOD ORDERAB LES Final Result [facility] [address] [place] [phone] * CT Abdomen Pelvis w/o Contrast (07/24/2024 9:06 PM EST) Anatomical Region Laterality Modality Body, Pelvis, Abdomen Computed T omography 07/24/2024 9:06 PM EST Narrative 07/24/2024 9:08 PM EST ? [facility] ?[address] [place] [address] ?[place] [address] ? CT Scan Report ? Signed ? Patient: Fischer Rashid,Jayne ?MR#: MM ?? [id number] ? : 1945 ?Acct:[id number] ? Age/Sex: 78 / F ?ADM Date: 01/14/25 ? Loc: HO.ED ? Attending Dr: ? Ordering Physician: Vida Regalado CNP ?? Date of Service: 07/24/24 ?? Procedure(s): CT abdomen pelvis wo IV con ?? Accession Number(s): [id number] ? cc: Vida Regalado CNP; [facility] ? Report Number: ?? [id number]: Total DLP = ??680.00 mGy-cm ? CLINICAL [...] ? DD/ 05 ? TD/TT: 07/24/242105 ? Damage Prevention Coordinator: ? Procedure Note Brendan Pitts - 07/24/[address] [address] [address] Scan Report Signed Patient: Fischer RashidSammie EMR#: [id number] : 4Acct:[id number] Age/Sex: 78 / FADM Date: 07/24/24 Loc: HO.ED Attending Dr: Ordering Physician: Vida Regalado CNP Date of Service: 07/24/24 Procedure(s): CT abdomen pelvis wo IV con Accession Number(s): [id number] cc: Vida Regalado CNP; [facility] Report Number: [id number]: Total DLP = 680.00 mGy-cm CLINICAL HISTORY: [...] in OV> 07/24/242106 DD/ 05 TD/TT: 07/24/242105 Damage Prevention Coordinator: [facility] External Provider IMG CT PROCEDURES Final Result * Glucose, Whole Blood (07/24/2024 8:59 PM EST) Glucose, Whole Blood 70 60 - 115 mg/dL [facility] Comment:METER #: [id number] 07/24/2024 8:59 PM EST 07/24/2024 9:02 PM EST Generic External Data Provider LAB BLOOD ORDERAB LES Final Result Performing Organization Address [facility] Co de Phone Number [facility] [address] [place] [phone] * SARS-CoV-2 RNA, Influenza A/B, and RSV RNA, Ql NAAT (07/24/2024 7:20 PM EST) Pathologist [facility] Influenza A PCR NEGATIVE Negative [facility] Influenza B PCR NEGATIVE Negative [facility] Resp Syncy Virus RNA Qual PCR NEGATIVE Negative [facility] SARS COV2 PCR NEGATIVE Negative [facility] Comment:All test results mus t [...] use by authorized laboratories.Testing performed on the [employer] GeneXpert utilizingreal-time RT-PCR.All SARS CoV2 and positive influenza A/B results arereported to [facility]. 07/24/2024 7:20 PM EST 07/24/2024 7:22 PM EST Generic External Data Provider LAB MICROBIOLOGY - GENERAL ORDERABLES Final Result Performing Organization Address [facility]/ZIP Co de Phone Number [facility] [address] [place] [phone] * (ABNORMAL) CBC auto differential (07/24/2024 7:20 PM EST) White Blood Count 6.5 4.8 - 10.8 X10*3/uL [facility] Red Blood Count 4.09(L) 4.20 - 5.50 X10*6/uL [facility] Hemoglobin 11.3(L) 12.0 - 16.0 g/dl [facility] Hematocrit 34.5(L) 37.0 - 47.0 % [facility] Mean Corpuscular Volume 84.4 80.0 - 98.0 fL [facility] Mean Corpuscular Hemoglobin 27.6 27.0 - 33.0 pg [facility] Mean Corpuscular HGB Conc 32.8 31.0 - 35.0 g/dl [facility] Red Cell Distribution Width 16.1(H) 11.0 - 16.0 % [facility] Platelet Count 210 160 - 400 X10*3/uL [facility] Mean Platelet Volume 10.6 9.4 - 12.3 fL [facility] Neutrophils Percent Auto 72.3 45 - 73 % [facility] Imm Gran Pct Auto 0.6(H) 0.0 - 0.4 % [facility] Lymphocytes Percent Auto 19.9(L) 20 - 40 % [facility] Monocytes Percent Auto 5.4 2 - 11 % [facility] Eosinophils Percent Auto 1.5 0 - 4 % [facility] Basophils Percent Auto 0.3 0 - 2 % [facility] NRBC Pct Auto 0.0 0.0 - 0.2 /100WBC [facility] Neutrophils Absolute Auto 4.7 2.0 - 8.3 x10*3/uL [facility] Imm Gran Abs Auto 0.04(H) 0.00 - 0.03 X10*3/uL [facility] Lymphocytes Absolute Auto 1.3 1.2 - 4.9 X10*3/uL [facility] Monocytes Absolute Auto 0.4 0.1 - 1.2 X10*3/uL [facility] Eosinophils Absolute Auto 0.1 0.0 - 0.4 X10*3/uL [facility] Basophils Absolute Auto 0.0 0.0 - 0.2 X10*3/uL [facility] NRBC Abs Auto 0.000 0.0 - 0.012 X10*3/uL [facility] 07/24/2024 7:20 PM EST 07/24/2024 7:22 PM EST us Generic External Data Provider LAB BLOOD ORDERAB LES Final Result Performing Organization Address [facility]/ZIP Co de Phone Number [facility] [address] [place] [phone] * Magnesium (07/24/2024 7:20 PM EST) Magnesium 2.4 1.6 - 2.6 mg/dL [facility] 07/24/2024 7:20 PM EST 07/24/2024 7:22 PM EST us Generic External Data Provider LAB BLOOD ORDERAB LES Final Result Performing Organization Address [facility] Co tx Phone Number [facility] [address] [place] [phone] * Lipase (07/24/2024 7:20 PM EST) Lipase 38 8 - 78 U/L [facility] 07/24/2024 7:20 PM EST 07/24/2024 7:22 PM EST Generic External Data Provider LAB BLOOD ORDERAB LES Final Result Performing Organization Address [facility] de Phone Number [facility] [address] [place] [phone] * (ABNORMAL) Comprehensive Metabolic Panel (07/24/2024 7:20 PM EST) Sodium 139 135 - 145 mmol/L [facility] Potassium 6.3(HH) 3.3 - 5.1 mmol/L [facility] Comment:Critical value for t est(s): POTS Results called to and readback by: ALONZO Person calling:YASSINE Date: 07/24/24 Time:1952 Chloride 110(H) 96 - 108 mmol/L [facility] Carbon Dioxide 25 22 - 29 mmol/L [facility] Anion Gap 10(L) 12 - 20 [facility] Urea Nitrogen (BUN) 51(H) 9 - 16 mg/dL [facility] Creatinine, Serum 2.29(H) 0.5 - 1.4 mg/dL [facility] Creatinine Clr Calc Pharmacy 19.0 [facility] Comment:Provided height and weight: 152.4 cm,85.4 kg.eGFR (calculated from the MDRD study equation) and eCrCl(calculated from the Cockcroft-Gault equation) are based ondifferent parameters and may not yield comparable results.If eCrCl result is absurd, please check patient'sheight/weight. Estimated Glomerular Filt Rate 21 [facility] Comment:Chronic Kidney Disea se: Estimated GFR < 60 mL/min/1.86y4Cnnyps Kidney Disease: Estimated GFR < 15 mL/min/1.73m2 Glucose 97 60 - 115 mg/dL [facility] Calcium 9.8 8.4 - 10.2 mg/dL [facility] Bilirubin, Total 0.3 0.0 - 1.0 mg/dL [facility] Aspartate Amino Transferase 30 5 - 31 U/L [facility] Alanine Aminotransferase 30 0 - 31 U/L [facility] Total Protein 7.6 6.5 - 8.0 g/dL [facility] Albumin Level 4.1 3.5 - 5.0 g/dL [facility] Alkaline Phosphatase 193(H) 39 - 117 U/L [facility] 07/24/2024 7:20 PM EST 07/24/2024 7:22 PM EST us Generic External Data Provider LAB BLOOD ORDERAB LES Final Result [facility] [address] [place] [phone] * (ABNORMAL) Urinalysis, Complete, with Reflex to Culture (07/24/2024 5:15 PM EST) Color Urine Yellow [facility] Appearance Urine Clear [facility] PH 7.0 5.0 - 9.0 [facility] Glucose Urine UA 250(A) Negative mg/dL [facility] Urine Blood Negative Negative [facility] Specific [place] - Urine <=1.005 1.005 - 1.025 [facility] Urine Protein Negative Neg-Trace mg/dL [facility] Urine Ketones Negative Negative mg/dL [facility] Nitrite Urine Negative Negative [facility] Leukocyte Esterase Urine Moderate (2+)(A) Negative [facility] RBC Urine 3-5(A) 0 - 2 /HPF [facility] Urine WBC 11-20(A) 0 - 5 /HPF [facility] Urine Squamous Epithelial Cell 0-2 0 - 2 /HPF [facility] Urine Bacteria 4+ None Seen [facility] Hyaline Casts, Urine 3-5 0 - 2 /LPF [facility] 07/24/2024 5:15 PM EST 07/24/2024 5:19 PM EST Narrative [facility] - 07/24/2024 5:50 PM EST Urine, Clean Catch us Generic External Data Provider LAB URINE ORDERAB LES Final Result Performing Organization Address City/State/[facility] Co de Phone Number [facility] [address] [place] [phone] * Albumin, Random Urine W/Creatinine (12/27/2023 9:45 AM EDT) Creatinine, Urine 90.13 mg/dL [facility] Microalbumin Urine 11.0 mg/L [facility] Microalbum Creatinine Ratio Ur 12.2 <30 ug/mg cr [facility] Comment:Albumin/Creatinine R atio Reference Ranges: Normal: < 30 ug/mg creatinine Microalbuminuria: 30 - 300 ug/mg creatinineClinical Albuminuria: > 300 ug/mg creatinine Urine (Urine, Random) 12/27/2023 9:45 AM EDT 12/27/2023 11:23 AM EDT us Balta Jeffrey MD LAB URINE ORDERABLES Final Resul t Performing Organization Address [facility] Co de Phone Number [facility] [address] [place] [phone] * Lipid Panel, Standard (12/26/2023 1:22 PM EDT) Triglycerides 52 <150 mg/dL [facility] Comment:Desirable Triglyceri de: less than 150 mg/dLBorderline High Triglyceride 150-199 mg/dLHigh Triglyceride: 200-499 mg/dLVery High Triglyceride: greater than or equal to 5OO mg/dL Cholesterol 169 <200 mg/dL [facility] Comment:Desirable Cholestero l: less than 200 mg/dLBorderline High Cholesterol: 200-239 mg/dLHigh Cholesterol: greater than 239 mg/dL LDL Cholesterol Calculated 92 <100 mg/dL [facility] Comment:Desirable LDL: less than 100 mg/dLNear Optimal/Above Optimal LDL: 110- 129 mg/dLBorderline High LDL: 130-159 mg/dLHigh LDL: 160-189 mg/dLVery High LDL: greater than or equal to 190 mg/dL HDL Cholesterol 67 >40 mg/dL [facility] Comment:Desirable HDL: great er than 40 mg/dL Note: This HDL assay may give artificially low results in patients with liver disease. Blood Venous blood specimen / Unknown 12/26/2023 1:22 PM EDT 12/26/2023 3:56 PM EDT us Balta Jeffrey MD LAB BLOOD ORDERABLES Final Resul t Performing Organization Address [facility]/ZIP Co de Phone Number [facility] [address] [place] [address] [phone] from Last 3 Months or Most Recently Relevant to Health Maintenance Insurance [facility] Care Teams Etl Application Developer Relationship Specialty Start Date End Date Name, MD Balta [address] [place] [address] PCP - General Internal Medicine 06/14/22 [facility] 08/05/24
--- OUTSIDE RECORDS SUMMARY | 2024-09-12 16:56 | XMS_ITS | Encounter Summary ---
Author Organization [employer] [facility] Address [address] [facility] 7t [place] [address] Care Team Providers Care Director Fraud Name Role Phone Name, Balta MAYER Primary Care Provider [phone] Encounter Details Date Type Department Care Team (Late st Contact Info) Description 06/14/2022 Orders Only [facility] [address] [place] [phone] Audrey Mcginnis, JERROD Social History Tobacco Use [...] Description 09/19/2024 2:15 PM EDT Office Visit [facility] [address] [place] [phone] Name, MD Balta [address] [place] [address] 10/02/2024 10:00 AM EDT Clinical Support [facility] [address] [place] [address] 12/17/2024 1:30 PM EDT Office Visit [facility] OPTOMETRY [address] [place] [phone] Esther Mcdonald, OD [address] [place] [address] documented as of this encounter Visit Diagnoses Not on filedocumented in this encounter Care Teams Director Fraud Relationship Specialty Start Date End Date Name, MD Balta [address] [place] [address] PCP - General Internal Medicine 06/14/22 Samir Luci 08/05/24 documented as of this encounter
--- OUTSIDE RECORDS SUMMARY | 2024-09-12 16:56 | XMS_ITS | Encounter Summary ---
Author Organization [employer] Address [address] [facility] [facility] 7t [place] [address] Care Team Providers Care Physical Therapy Director Name Role Phone Name, Balta MAYER Primary Care Provider [phone] Reason for Visit * Reason Onset Date Comments Appointment Request 08/17/2024 Encounter Details Date Type Department Care Team ([facility] st Contact Info) Description 08/17/2024 Telephone [facility] [address] [place] [address] Name, MD Balta [address] [place] [address] Appointment Request Social History Tobacco Use Types [...] placed to pt via [facility] cemetery manager (Stefano ID#[id number]) to inform that labs were placed to [...] 4:57 PM EST T/C to pt via [employer] Department Editor #[id number]. Pt agrees to r/s HDF with Blue [...] 08/17/2024 10:15 AM EST TC placed via [employer] cemetery manager (ID#[id number]) to r/s HDF [facility] 07/24-08/02 Dx:Acute Dysphagia from 08/17/24. No answer, LVM to call office back and ask to speak to the blue team nurses. * Telephone Encounter - Luther Pardo - 08/17/2024 8:08 AM EST Tc from pt requesting to r/s Apt for 08/17/24. Contact pt at [phone] documented in this encounter Plan of Treatment Upcoming Encounters Date Type Department Care Team (Late st Contact Info) Description 09/19/2024 2:15 PM EDT Office Visit [facility] [address] [place] [address] Name, MD Balta [address] [place] [address] 10/02/2024 10:00 AM EDT Clinical Support [facility] [address] [place] [address] 12/17/2024 1:30 PM EDT Office Visit [facility] OPTOMETRY [address] [place] [address] Esther Mcdonald, OD [address] [facility] [place] [address] documented as of this encounter Procedures Procedure Name Priority Date/Time Associated Diagnosis Comments BASIC METABOLIC PANEL Routine 08/30/2024 11:50 AM EST Hyperkalemia documented in this encounter Results * (ABNORMAL) Basic Metabolic Panel (08/30/2024 11:50 AM EST) Sodium 144 135 - 145 mmol/L [facility] Potassium 5.1 3.3 - 5.1 mmol/L [facility] Chloride 111(H) 96 - 108 mmol/L [facility] Carbon Dioxide 27 22 - 29 mmol/L [facility] Anion Gap 11(L) 12 - 20 [facility] Urea Nitrogen (BUN) 25(H) 9 - 16 mg/dL [facility] Creatinine, Serum 1.20 0.5 - 1.4 mg/dL [facility] Estimated Glomerular Filt Rate 43 [facility] Comment:Chronic Kidney Disea se: Estimated GFR < 60 mL/min/1.51l3Xdpedg Kidney Disease: Estimated GFR < 15 mL/min/1.73m2 Glucose 82 60 - 115 mg/dL [facility] Calcium 9.9 8.4 - 10.2 mg/dL [facility] Blood Venous blood specimen / Unknown 08/30/2024 11:50 AM EST 08/30/2024 1:10 PM EST us Balta Elena MD LAB BLOOD ORDERABLES Final Resul t [facility] [address] [place] [phone] [phone] documented in this encounter Visit Diagnoses Diagnosis Hyperkalemia- Primary Hyperpotassemia documented in this encounter Additional Health Concerns Assessment Noted Time PHQ-9 Depression Total Score: 0 09/20/19 24 1:15 PM EDT documented as of this encounter Care Teams Physical Therapy Director Relationship Specialty Start Date End Date Name, MD Balta [address] [place] [address] PCP - General Internal Medicine 06/14/22 [facility] documented as of this encounter
--- OUTSIDE RECORDS SUMMARY | 2024-09-12 16:56 | XMS_ITS | Encounter Summary ---
Author Organization [employer] Address [address] [facility] 7t [place] [address] Care Team Providers Care Director Media Name Role Phone Name, Balta MAYER Primary Care Provider Encounter Details Date Type Department Care Team ([facility] st Contact Info) Description 08/10/2024 Orders Only [facility] [address] [place] [address] Name, MD Balta [address] [place] [address] Social History Tobacco Use Types Packs/Day Years [...] PM EST Pt is currently admitted at [facility]. * Cindy Ly RN - 08/10/2024 3:54 PM EST Per review of [facility], pt discharged home 08/13/24 with resumption of [facility]. No discharge note yet available. Pt is already scheduled with pcp for HDF on 08/17/24. documented in this encounter Plan of Treatment Upcoming Encounters Date Type Department Care Team (Late st Contact Info) Description 09/19/2024 2:15 PM EDT Office Visit [facility] [address] [place] [address] Name, MD Balta [address] [place] [address] 10/02/2024 10:00 AM EDT Clinical Support [facility] [address] [place] [address] 12/17/2024 1:30 PM EDT Office Visit [facility] OPTOMETRY [address] [place] [phone] Esther Mcdonald, OD [address] [place] [address] documented as of this encounter Procedures Procedure [...] EST Narrative 08/12/2024 12:36 PM EST ? [facility] ?[address] ?[place] [address] ? Ultrasound Report ? Signed ? Patient: Victorina Francois ?MR#: [id number] ?? [id number] ? : 1945 ?Acct:[id number] ? Age/Sex: 78 / F ?ADM Date: 08/10/24 ? Loc: [facility] ?485-1 ? Attending Dr: Ernesto Morgan DO ? Ordering Physician: Ernesto Morgan DO ?? Date of Service: 08/12/24 ?? Procedure(s): US renal BI ?? Accession Number(s): [id number] ? cc: Name,Balta MAYER; Ernesto Morgan DO [...] DD/ 1235 ? TD/TT: 08/12/24 1235 ? Senior Caregiver: ? Procedure Note Donotuseinterpreter, Image - 08/12/[address] [address] Ultrasound Report Signed Patient: Victorina Francois EMR#: [id number] : 4Acct:[id number] Age/Sex: 78 / FADM Date: 08/10/24 Loc: [facility] 485-[address]: Ernesto Morgan DO Ordering Physician: Ernesto oMrgan DO Date of Service: 08/12/24 Procedure(s): US renal BI Accession Number(s): [id number] cc: Name,Balta MAYER; Ernesto Morgan DO CLINICAL [...] 08/12/24 1236 DD/ 1235 TD/TT: 08/12/24 1235 Senior Caregiver: [facility] External Provider IMG US PROCEDURES Final Result * (ABNORMAL) Basic Metabolic Panel (08/10/2024 10:06 PM EST) Sodium 140 135 - 145 mmol/L [facility] Potassium 6.3(HH) 3.3 - 5.1 mmol/L [facility] Comment:Critical value for t est(s):POTS Results called to pat back by: SALEEM Person calling: [id number] Date:08/10/24Time:4 Chloride 109(H) 96 - 108 mmol/L [facility] Carbon Dioxide 25 22 - 29 mmol/L [facility] Anion Gap 12 12 - 20 [facility] Urea Nitrogen (BUN) 24(H) 9 - 16 mg/dL [facility] Creatinine, Serum 1.60(H) 0.5 - 1.4 mg/dL [facility] Creatinine Clr Calc Pharmacy 26.6 [facility] Comment:Provided height and weight: 152.4 cm,82.1 kg.eGFR (calculated from the MDRD study equation) and eCrCl(calculated from the Cockcroft-Gault equation) are based ondifferent parameters and may not yield comparable results.If eCrCl result is absurd, please check patient'sheight/weight. Estimated Glomerular Filt Rate 31 [facility] Comment:Chronic Kidney Disea se: Estimated GFR < 60 mL/min/1.30l9Khtmsc Kidney Disease: Estimated GFR < 15 mL/min/1.73m2 Glucose 98 60 - 115 mg/dL [facility] Calcium 9.5 8.4 - 10.2 mg/dL [facility] 08/10/2024 10:0 6 PM EST 08/10/2024 10:09 PM EST us Generic External Data Provider LAB BLOOD ORDERAB LES Final Result [facility] [address] [place] [phone] * (ABNORMAL) Basic Metabolic Panel (08/10/2024 2:02 PM EST) Sodium 139 135 - 145 mmol/L [facility] Potassium 6.8(HH) 3.3 - 5.1 mmol/L [facility] Comment:Critical value for t est(s): POTS Results called to pat back by: DR. ASHRAF Person calling:[email or web address]:08/10/24 Time:1519 Chloride 103 96 - 108 mmol/L [facility] Carbon Dioxide 30(H) 22 - 29 mmol/L [facility] Anion Gap 13 12 - 20 [facility] Urea Nitrogen (BUN) 21(H) 9 - 16 mg/dL [facility] Creatinine, Serum 1.61(H) 0.5 - 1.4 mg/dL [facility] Estimated Glomerular Filt Rate 31 [facility] Comment:Chronic Kidney Disea se: Estimated GFR < 60 mL/min/1.02z8Ebwqgi Kidney Disease: Estimated GFR < 15 mL/min/1.73m2 Glucose 71 60 - 115 mg/dL [facility] Calcium 10.4(H) 8.4 - 10.2 mg/dL [facility] 08/10/2024 2:02 PM EST 08/10/2024 2:09 PM EST us Balta Jeffrey MD LAB BLOOD ORDERABLES Final Resul t [facility] [address] [place] [address] [phone] documented in this encounter Visit Diagnoses Not on filedocumented in this encounter Additional Health Concerns Assessment Noted Time PHQ-9 Depression Total Score: 0 09/20/19 24 1:15 PM EDT documented as of this encounter Care Teams Director Media Relationship Specialty Start Date End Date Name, MD Balta [address] [place] [address] PCP - General Internal Medicine [facility] documented as of this encounter
== END 2024-09-12 15:31 | disposition home or self-care (01) ==
PROVIDERS: PCP Internal Medicine Geriatric Medicine; Visit Provider Internal Medicine Cardiovascular Disease
DX: I50.32 Chronic diastolic (congestive) heart failure (principal)
CPT/HCPCS: 99214

== ENCOUNTER → 2024-09-12 14:04 | Outpatient (BNVA) | payer OTHER, SELFPAY | PROVIDERS: PCP Internal Medicine Geriatric Medicine; Visit Provider Internal Medicine Cardiovascular Disease | DX: I11.0 Hypertensive heart disease with heart failure (principal); I50.32 Chronic diastolic (congestive) heart failure | CPT/HCPCS: 99212 ==

== ENCOUNTER 2024-09-19 16:05 | Outpatient (REF) | payer OTHER, SELFPAY ==
--- OUTSIDE RECORDS SUMMARY | 2024-09-19 18:31 | XMS_ITS | Encounter Summary ---
Author Organization [employer] Address [address] [facility] [address] 7[address] [place] [address] Care Team Providers Care Printing Grey Cloth Tender Name Role Phone Name, Balta MAYER Primary Care Provider [phone] Encounter Details Date Type Department Care Team (Late st Contact Info) Description 04/20/2023 Abstract [facility] [address] [place] [address] Name, MD Balta [address] [place] [address] Social History Tobacco Use Types Packs/Day Years [...] Care Team (Late st Contact Info) Description 12/17/2024 1:30 PM EDT Office Visit [facility] OPT[facility] [address] [place] [address] Esther Mcdonald, OD [address] [place] [address] documented as of this encounter Visit Diagnoses Not on filedocumented in this encounter Additional Health Concerns Assessment Noted Time PHQ-9 Depression Total Score: 4 08/31/19 23 10:26 AM EST documented as of this encounter Care Teams Printing Grey Cloth Tender Relationship Specialty Start Date End Date Name, MD Balta [address] [place] [address] PCP - General Internal Medicine 06/14/22 [facility] 08/05/24 documented as of this encounter
--- OUTSIDE RECORDS SUMMARY | 2024-09-19 18:31 | XMS_ITS | Encounter Summary ---
Author Organization [employer] Address [address] [facility] 7t [place] [address] Care Team Providers Care Multimedia Developer Name Role Phone Name, Balta MAYER Primary Care Provider [phone] Reason for Visit * Reason Onset Date Comments Appointment Request 08/17/2024 Encounter Details Date Type Department Care Team ([facility] st Contact Info) Description 08/17/2024 Telephone [facility] [address] [place] [address] Name, MD Balta [address] [place] [address] Appointment Request Social History Tobacco Use Types [...] before HDF. TC placed to pt via [facility] director marketing (Stefano ID#[id number]) to inform that labs were placed to [...] 4:57 PM EST T/C to pt via [employer] Meter Installer #[id number]. Pt agrees to r/s HDF with Blue [...] 08/17/2024 10:15 AM EST TC placed via [employer] director marketing (ID#[id number]) to r/s HDF [facility] 07/24-08/02 Dx:Acute Dysphagia from 08/17/24. No answer, LVM to call office back and ask to speak to the blue team nurses. * Telephone Encounter - Luther Pardo - 08/17/2024 8:08 AM EST Tc from pt requesting to r/s Apt for 08/17/24. Contact pt at [phone] documented in this encounter Plan of Treatment Upcoming Encounters Date Type Department Care Team (Late st Contact Info) Description 12/17/2024 1:30 PM EDT Office Visit [facility] OPTOMETRY [address] [place], [place] [phone] HarryEsther faustin, OD [address] [place], [place] [phone] documented as of this encounter Procedures Procedure Name Priority Date/Time Associated Diagnosis Comments BASIC METABOLIC PANEL Routine 08/30/2024 11:50 AM EST Hyperkalemia documented in this encounter Results * (ABNORMAL) Basic Metabolic Panel (08/30/2024 11:50 AM EST) Sodium 144 135 - 145 mmol/L [facility] Potassium 5.1 3.3 - 5.1 mmol/L [facility] Chloride 111(H) 96 - 108 mmol/L [facility] Carbon Dioxide 27 22 - 29 mmol/L [facility] Anion Gap 11(L) 12 - 20 [facility] Urea Nitrogen (BUN) 25(H) 9 - 16 mg/dL [facility] Creatinine, Serum 1.20 0.5 - 1.4 mg/dL [facility] Estimated Glomerular Filt Rate 43 [facility] Comment:Chronic Kidney Disea se: Estimated GFR < 60 mL/min/1.45t7Knlhhx Kidney Disease: Estimated GFR < 15 mL/min/1.73m2 Glucose 82 60 - 115 mg/dL [facility] Calcium 9.9 8.4 - 10.2 mg/dL [facility] Blood Venous blood specimen / Unknown 08/30/2024 11:50 AM EST 08/30/2024 1:10 PM EST Balta Elena MD LAB BLOOD ORDERABLES Final Resul t [facility] [address] [place] [address] [phone] documented in this encounter Visit Diagnoses Diagnosis Hyperkalemia- Primary Hyperpotassemia documented in this encounter Additional Health Concerns Assessment Noted Time PHQ-9 Depression Total Score: 0 09/20/19 24 1:15 PM EDT documented as of this encounter Care Teams Multimedia Developer Relationship Specialty Start Date End Date Name, MD Balta [address] [place] [phone] PCP - General Internal Medicine 06/14/22 [facility] 08/05/24 documented as of this encounter
--- OUTSIDE RECORDS SUMMARY | 2024-09-19 18:31 | XMS_ITS | Encounter Summary ---
Author Organization [employer] Address [address] [facility] 7t [place] [address] Care Team Providers Care Inventory Control Clerk Name Role Phone Name, Balta MAYER Primary Care Provider [phone] Reason for Visit * Reason Onset Date Comments Call Back Request 08/16/2024 Encounter Details Date Type Department Care Team ([facility] Contact Info) Description 08/16/2024 Telephone [facility] [address] [place] [address] Name, MD Balta [address] [place] [phone] Call Back Request Social History Tobacco Use [...] the B12 injection. Please contact Daughter at [phone]. (Hungarian Speaker) documented in this encounter Plan of Treatment Upcoming Encounters Date Type Department Care Team (Late st Contact Info) Description 12/17/2024 1:30 PM EDT Office Visit [facility] OPTOMETRY [address] [place] [address] Esther Mcdonald, OD [address] [place] [address] documented as of this encounter Visit Diagnoses Not on filedocumented in this encounter Additional Health Concerns Assessment Noted Time PHQ-9 Depression Total Score: 0 09/20/19 24 1:15 PM EDT documented as of this encounter Care Teams Inventory Control Clerk Relationship Specialty Start Date End Date Name, MD Balta [address] [place] [address] PCP - General Internal Medicine 06/14/22 [facility] 08/05/24 documented as of this encounter
--- OUTSIDE RECORDS SUMMARY | 2024-09-19 18:31 | XMS_ITS | Encounter Summary ---
Author Organization [employer] Address [address] [facility] 7t [place] [address] Care Team Providers Care Career Law Clerk Name Role Phone Name, Balta MAYER Primary Care Provider [phone] Reason for Visit * Reason Comments Follow-up Encounter Details Date Type Department Care Team ([facility] st Contact Info) Description 09/19/2024 2:15 PM EDT Office Visit [facility] MEDICINE [address] [place] [address] Name, MD Balta [address] [place] [id number] Stage 3 chronic kidney disease, unspecified whether stage 3a or 3b CKD (CMS/HCC) (Primary Dx); Hyperkalemia; Chronic diastolic heart failure (CMS/HCC); 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); Chronic constipation; Cobalamin deficiency; Encounter for immunization Social History Tobacco Use Types Packs/Day Years [...] Sign Reading Time Taken Comments Blood Pressure 131/66 09/19/2024 2:26 PM EDT Pulse 53 09/19/2024 2:26 PM EDT Temperature 35.6 ??C (96 ??F) 09/19/2024 2:26 PM EDT Respiratory Rate 16 09/19/2024 2:26 PM EDT Oxygen Saturation 97% 09/19/2024 2:26 PM EDT Inhaled Oxygen Concentration - - Weight 84.8 kg (187 lb) 09/19/2024 2:26 PM EDT Height 160 cm (5' 3 ) 09/19/2024 2:26 PM EDT Body Mass Index 33.13 09/19/2024 2:26 PM EDT documented in this encounter Progress Notes * Balta Jeffrey MD - 09/19/2024 2:15 PM EDT Subjective Patient ID: Victorina Mike is a 78 y.o. female who presents for Follow-up. Patient comes accompanied by her daughter and her DELIVERY TRUCK DRIVER and she feels well. Her diabetes is well-controlled. The patient had to discontinue the use of GLP-1 because of worsening of constipation. She is currently using milk of magnesia every other day with symptomatic improvement. She did not respond to use of lactulose. She was also taken off ARB's because of worsening CKD and hyperkalemia. Most recent BMP showed improvement of creatinine and potassium within normal limits. She denies any chest pains or shortness of breath. She continues on Jardiance for treatment of diabetes and diastolic dysfunction. She was recently seen by cardiology and nephrology and no medication changes were recommended. She has constant supervision provided by her daughter. Their plan is to move together to a first-floor 2 bedroom apartment as soon as is available. She uses her med as prescribed a has a medbox She refused the flu vaccine today Review of Systems Constitutional: Negative for chills and fever. HENT: Negative for sore throat. Respiratory: Negative for cough, shortness of breath and wheezing. Cardiovascular: Negative for chest pain, palpitations and leg swelling. Gastrointestinal: Negative for abdominal pain. Visit Vitals BP 131/66 (BP Location: Right arm, Patient Position: Sitting, BP Cuff Size: Large adult) Pulse 53 Temp 96 ??F (35.6 ??C) (Temporal) Resp 16 Ht 5' 3 (1.6 m) Wt 187 lb (84.8 kg) SpO2 97% BMI 33.13 kg/m?? Smoking Status Never BSA 1.94 m?? Objective Physical Exam Constitutional: Appearance: Normal appearance. Cardiovascular: Rate and Rhythm: Normal rate and regular rhythm. Heart sounds: No murmur heard. No gallop. Pulmonary: Effort: Pulmonary effort is normal. No respiratory distress. Breath sounds: Normal breath sounds. No wheezing. Musculoskeletal: Right lower leg: No edema. Left lower leg: No edema. Neurological: Mental Status: She is alert. Lab Results Component Value Date HGBA1C 5.3 09/03/2024 HGBA1C 5.7 02/24/2024 HGBA1C 6.0 06/15/2023 HGBA1C 6.8 (A) 12/21/2022 HGBA1C 6.1 (H) 08/12/2020 K 5.1 08/30/2024 K 6.3 (HH) 08/10/2024 K 6.8 (HH) 08/10/2024 K 5.4 (H) 07/24/2024 K 6.3 (HH) 07/24/2024 K 4.4 01/02/2024 K 4.2 12/26/2023 K 4.0 12/18/2022 K 3.7 11/02/2022 K 3.0 (L) 04/03/2021 CREATININE 1.20 08/30/2024 CREATININE 1.60 (H) 08/10/2024 CREATININE 1.61 (H) 08/10/2024 CREATININE 2.14 (H) 07/24/2024 CREATININE 2.29 (H) 07/24/2024 CREATININE 0.83 01/02/2024 CREATININE 0.86 12/26/2023 CREATININE 0.94 12/18/2022 CREATININE 0.89 11/02/2022 CREATININE 1.10 04/03/2021 Lab Results Component Value Date GLUCOSE 82 08/30/2024 NA 144 08/30/2024 K 5.1 08/30/2024 CO2 27 08/30/2024 CL 111 (H) 08/30/2024 BUN 25 (H) 08/30/2024 CREATININE 1.20 08/30/2024 Assessment/Plan Diagnoses and all orders for this visit: Stage 3 chronic kidney disease, unspecified whether stage 3a or 3b CKD ([facility]) Comments: Continue to hold ARB's, avoid NSAIDs, she is recommended to drink plenty of water, recheck BMP Orders: - POCT Glucose - Basic Metabolic Panel; Future Hyperkalemia Comments: See above. I will also check her magnesium since she is using milk of magnesia every other day Orders: - POCT Glucose - Basic Metabolic Panel; Future Chronic diastolic heart failure ([facility]) Comments: Well-controlled. Continue Jardiance. Orders: - POCT Glucose - Basic Metabolic Panel; Future Type 2 diabetes mellitus with obesity ([facility]) ([facility]) Comments: Blood sugars well-controlled. See above. Chronic constipation Comments: The patient is off of GLP-1. Continue milk of magnesia every other day. Her hvac instructor is aware she is using this. Orders: - Magnesium; Future Cobalamin deficiency Comments: B12 shot today. She comes monthly for this. Orders: - cyanocobalamin (Vitamin B-12) injection 1,000 mcg Other orders - cyanocobalamin (Vitamin B-12) 1000 MCG/ML injection; INJECT 1 ML INTRAMUSCULARLY EVERY MONTH DIRECTED documented in this encounter Miscellaneous Notes * Addendum Note - Leona Ly RN - 09/19/2024 2:15 PM EDTAddended by: LEONA LY on: 09/19/2024 04:03 PM Modules accepted: Orders documented in this encounter Plan of Treatment Upcoming Encounters Date Type Department Care Team (Late st Contact Info) Description 12/17/2024 1:30 PM EDT Office Visit [facility] OPTOMETRY [address] [place], [place] [phone] Harry, Esther, OD [address] [place] [address] Scheduled Orders Name Type Priority Associated Diagnoses Orde r Schedule Basic Metabolic Panel Lab Routine Stage 3 chronic kidney disease, unspecified whether stage 3a or 3b CKD (CMS/HCC) Hyperkalemia Chronic diastolic heart failure (CMS/HCC) Expected: 09/19/2024 (Approximate), Expires: 09/19/2025 Magnesium Lab Routine Chronic constipation Expected: 09/19/2024, Expires: 09/19/2025 documented as of this encounter Procedures Procedure Name Priority Date/Time Associated Diagnosis Comments POCT GLUCOSE Routine 09/19/2024 2:46 PM EDT Stage 3 chronic kidney disease, unspecified whether stage 3a or 3b CKD (CMS/HCC) Hyperkalemia Chronic diastolic heart failure (CMS/HCC) documented in this encounter Results * POCT Glucose (09/19/2024 2:46 PM EDT) Glucose Blood, POC 192 60 - 200 mg/dL QC Media Lot # [id number] Lot# Expiration Date 82,625 Blood Capillary blood specimen / Unknown 09/19/2024 2:46 PM EDT Balta Jeffrey MD POINT OF CARE TEST ENTER/EDIT OR DERABLES Final Result documented in this encounter Visit Diagnoses Diagnosis Stage 3 chronic kidney disease, unspecified whether stage 3a or 3b CKD ([facility])- Primary Hyperkalemia Hyperpotassemia Chronic diastolic heart failure ([facility]) Chronic diastolic heart failure Type 2 diabetes mellitus with obesity ([facility]) ([facility]) Chronic constipation Unspecified constipation Cobalamin deficiency Other B-complex deficiencies Encounter for immunization documented in this encounter Administered Medications Inactive Administered Medications - up to 3 most recent administrations Medication Order MAR Action Action Date Dose Rate Site cyanocobalamin (Vitamin B-12) injection 1,000 mcg 1,000 mcg, Intramuscular, Once, On Tue09/19/24 at 1500, For 1 doseIndications:Cobalamin deficiency Given 09/19/2024 3:00 PM EDT 1,000 mcg Right Deltoid documented in this encounter Additional Health Concerns Assessment Noted Time PHQ-9 Depression Total Score: 0 09/20/19 24 1:15 PM EDT documented as of this encounter Care Teams Career Law Clerk Relationship Specialty Start Date End Date Name, MD Balta [address] [place] [address] PCP - General Internal Medicine 06/14/22 [facility] 08/05/24 documented as of this encounter
--- OUTSIDE RECORDS SUMMARY | 2024-09-19 18:31 | XMS_ITS | Encounter Summary ---
Author Organization [employer] Address [address] [facility] 7t [place] [address] Care Team Providers Care Graduate Assistant Athletic Trainer Name Role Phone Name, Balta MAYER Primary Care Provider [phone] Reason for Visit * Reason Onset Date Comments Durable Medical Equipment 09/07/2024 Encounter Details Date Type Department Care Team (Late st Contact Info) Description 09/07/2024 Telephone [facility] MEDICINE [address] [place] [address] Name, MD Balta [address] [place] [address] Durable Medical Equipment Social History Tobacco Use [...] * Telephone Encounter - Nancy Guillen - 09/19/2024 3:25 PM EDT Returned call to [facility] [place] to inform Rx for OT/PT wheelchair eval was faxed to [facility] for processing, however publicity writer was on hold for 15 minutes and call dropped. If [facility] [place] staff calls again, please inform of above. * Telephone Encounter - Dilcia Shah - 09/07/2024 9:55 AM EST Tc from [facility] from [facility] [place] stating they received script for wheelchair but need record ofphysical therapy treatment for insurance approval. Contact [facility] at [phone] documented in this encounter Plan of Treatment Upcoming Encounters Date Type Department Care Team (Late st Contact Info) Description 12/17/2024 1:30 PM EDT Office Visit [facility] OPTOMETRY [address] [place] [address] Harry, Esther, OD [address] [place] [address] documented as of this encounter Visit Diagnoses Not on filedocumented in this encounter Additional Health Concerns Assessment Noted Time PHQ-9 Depression Total Score: 0 09/20/19 24 1:15 PM EDT documented as of this encounter Care Teams Graduate Assistant Athletic Trainer Relationship Specialty Start Date End Date Name, MD Balta [address] [place] [address] PCP - General Internal Medicine 06/14/22 [facility] documented as of this encounter
--- OUTSIDE RECORDS SUMMARY | 2024-09-19 18:31 | XMS_ITS | Encounter Summary ---
Author Organization [employer] Address [address] [facility] [address] [place] [address] Care Team Providers Care Outsole Paraffiner Name Role Phone Name, Balta MAYER Primary Care Provider [phone] Encounter Details Date Type Department Care Team (Late st Contact Info) Description 07/20/2024 Community Care Management [facility] MEDICINE [address] [place], [place] [phone] Epic[employer] Link, Physician, Social History Tobacco Use [...] Description 12/17/2024 1:30 PM EDT Office Visit [facility] OPTOMETRY [address] [place] [address] Harry, Esther, OD [address] [place] [address] documented as of this encounter Visit Diagnoses Not on filedocumented in this encounter Additional Health Concerns Assessment Noted Time PHQ-9 Depression Total Score: 0 09/20/19 24 1:15 PM EDT documented as of this encounter Care Teams Outsole Paraffiner Relationship Specialty Start Date End Date Name, MD Balta [address] [place] [address] PCP - General Internal Medicine 06/14[facility]22 [facility] documented as of this encounter
--- OUTSIDE RECORDS SUMMARY | 2024-09-19 18:31 | XMS_ITS | Encounter Summary ---
Author Organization [employer] Address [address] [facility] [address] [place] [address] Care Team Providers Care Spot Facer Name Role Phone Name, Balta MAYER Primary Care Provider [phone] Reason for Visit * Reason Comments Med Refill Encounter Details Date Type Department Care Team (Late st Contact Info) Description 03/05/2024 Refill [facility] [address] [place], [place] [phone] Name, MD Balta [address] [place] [address] Social History Tobacco Use Types Packs/Day Years [...] Description 12/17/2024 1:30 PM EDT Office Visit [facility] OPTOMETRY [address] [place] [address] Harry, Esther, OD [address] [place] [address] documented as of this encounter Visit Diagnoses Not on filedocumented in this encounter Additional Health Concerns Assessment Noted Time PHQ-9 Depression Total Score: 0 09/20/19 24 1:15 PM EDT documented as of this encounter Care Teams Spot Facer Relationship Specialty Start Date End Date Name, MD Balta [address] [place] [address] PCP - General Internal Medicine 06[facility]14[facility]22 [facility] documented as of this encounter
--- OUTSIDE RECORDS SUMMARY | 2024-09-19 18:31 | XMS_ITS | Continuity of Care Document ---
Author Organization [facility] Address [address] [place] [address] Phone Care Team Providers Care Hat Mender Name Role Phone MD LEYLA Schreiber, Julia [...] Provider Providers Copied on Encounter [facility], [address], [place], [place], [id number], [place] tel:[phone] [facility] blurry vision (chief complaint) Combined forms of age-related cataract, bilateralDry eye syndrome of bilateral lacrimal glandsOpen angle with borderline findings, high risk, bilateral MD Julia Kitchen. [address] [facility], [place], [place], [id number] , [place]. tel: [phone] Referring Provider: Del Camp MD, [facility] [address] , [place], [address]. tel:[phone] Family History Family Member Type Diagnosis Age At Onset No Information Payers Payer name Insurance type Covered alliance party ID randy goff(s) [facility] [id number] Social History Type Description Quantity Date Captured [...]
--- OUTSIDE RECORDS SUMMARY | 2024-09-19 18:31 | XMS_ITS | Encounter Summary ---
Author Organization [facility] [employer] Address [address] [facility] 7t [place] [address] Care Team Providers Care Medical Lab Specialist Name Role Phone Name, Balta MAYER Primary Care Provider [phone] Reason for Visit * Reason Comments Hospital Follow-up Encounter Details Date Type Department Care Team ([facility] Contact Info) Description 09/03/2024 9:00 AM EST Office Visit [facility] MEDICINE [address] [place] [address] Jaymie Adams NP [address] [place] [address] MARIA R (acute kidney injury) (CMS/HCC) (Primary [...] conditions. Presents with daughter who is primary pet care attendant but can no longer live alone Interim history: Patient was admitted to [facility] for diverticulitis and hyperkalemia with MARIA R [...] hypoperfusion No obstruction based on USG Urine- Atlantic- doubt AGN/AIN Renal functino is back to [...] a 2 month [facility], consider providing script for additional month as planned at discharge Per discharge, please consider repeat labs to monitor renal function and potassium in order to advise on need to resume losartan Background Pharmacist Candi Max, GeorgesD contacted patient to discuss upcoming hospital discharge visit for hyperkalemia : Future Appointments Date Time Provider Department Center 08/17/2024 9:30 AM Balta Jeffrey MD MEDICINE [facility] 08/31/2024 2:30 PM Esther Mcdonald OD VISION [facility] 09/19/2024 2:15 PM Balta Jeffrey MD MEDICINE [facility] Hospital Course and Medication Reconciliation [facility] (07/24/24-08/02/24) Patient presented for evaluation of diarrhea [...] Visit Type 2 diabetes mellitus with obesity ([facility]/H[facility]) ([facility]) Relevant Orders POCT Glucose (Completed) POCT HGB A1C (Completed) MARIA R (acute kidney injury) ([facility]) - Primary Current Assessment & Plan Resolving Daughter will bring paperwork related to housing to medical records. I agree that pt is no longer medically stable to live alone and should have time study technician caregiver available (daughter) Mild vascular dementia ([facility]) Current Assessment & Plan Presumed vascular dementia, [...] mcg at 09/03/24 0938 Visit Conducted in: Syriac Translation by: Provided by [facility] staff member Manfred , * Flores Cabrera [...] to live alone and should have time study technician caregiver available (daughter) * Assessment & Plan Note - Jaymie Adams NP - 09/03/2024 9:55 AM ESTAssociated Problem(s): GERD (gastroesophageal reflux disease) Improving, Has seen GI since discharge, Discontinued [...] Description 12/17/2024 1:30 PM EDT Office Visit [facility] OPTOMETRY [address] [place] [address] Harry, Esther, OD [address] [place] [address] documented as of this encounter Procedures Procedure Name Priority Date/Time Associated Diagnosis Comments POCT GLYCATED HEMOGLOBIN, TOTAL Routine 09/03/2024 9:15 AM EST Type 2 diabetes mellitus with obesity ([facility]) ([facility]) POCT GLUCOSE Routine 09/03/2024 9:10 AM EST Type 2 diabetes mellitus with obesity ([facility]) ([facility]) documented in this encounter Results * POCT HGB A1C (09/03/2024 9:15 AM EST) Hemoglobin A1C 5.3 4.0 - 6.0 % QC Media Lot # [id number] Lot# Expiration Date Blood 09/03/2024 9:15 AM EST Jaymie Adams CLINICAL SUPPORT MANAGER POINT OF CARE TEST ENTER/EDIT OR DERABLES [...] Diagnoses Diagnosis MARIA R (acute kidney injury) (CMS/HCC)- Primary Esophagitis Unspecified esophagitis 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) 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
--- OUTSIDE RECORDS SUMMARY | 2024-09-19 18:31 | XMS_ITS | Encounter Summary ---
Author Organization [employer] [facility] Address [address] [place] [address] 7t [place] [address] Care Team Providers Care Return Clerk Name Role Phone Name, Balta MAYER Primary Care Provider [phone] Encounter Details Date Type Department Care Team (Late st Contact Info) Description 06/14/2022 Orders Only [facility] MEDICINE [address] [place] [address] Audrey Mcginnis, JERROD Social History Tobacco Use [...] Description 12/17/2024 1:30 PM EDT Office Visit [facility] OPTOMETRY [address] [place] [address] Harry, Esther, OD [address] [place] [address] documented as of this encounter Visit Diagnoses Not on filedocumented in this encounter Care Teams Return Clerk Relationship Specialty Start Date End Date Name, MD Balta [address] [place] [address] PCP - General Internal Medicine 06/14/22 [facility] 08/05/24 documented as of this encounter
--- OUTSIDE RECORDS SUMMARY | 2024-09-19 18:31 | XMS_ITS | Clinical Summary ---
Author Organization [employer] Address [address] [facility] [address] [place] [address] Care Team Providers Care Hand Winder Name Role Phone Name, Balta MAYER Primary Care Provider [phone] Allergies Active Allergy Reactions Criticality Noted Date Comments Metformin Diarrhea 07/24/2024 abdominal pain Penicillin G 06/07/2017 Other reaction(s): itchiness Penicillins [...] IN THE MORNING AND IN THE EVENING Active mirtazapine (Remeron) 15 MG tablet Take [...] pads USE TWICE DAILY 100 each 11 Active TRUEplus Lancets 33G miscIndications :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) ([facility]) TEST BLOOD SUGAR TWICE DAILY DIRECTED 100 each 5 024 Active FREESTYLE LITE test stripIndication s: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) ([facility]) TEST BLOOD SUGAR TWICE DAILY DIRECTED 100 strip 5 Active Jardiance 10 MG Take 10 mg by mouth in the morning. 024 Active ferrous gluconate (Fergon) 324 (38 Fe) MG tablet TAKE 1 TABLET BY MOUTH EVERY MORNING 90 tablet 1 024 Active cetirizine (ZyrTEC) 10 MG tablet TAKE 1 TABLET BY MOUTH EVERY MORNING 30 tablet 5 024 Active calcium carbonate 1500 (600 Ca) MG tabletIndicatio ns:Vitamin D deficiency TAKE 1 TABLET BY MOUTH EVERY MORNING 90 tablet 3 025 Active omeprazole (PriLOSEC) [address] capsule Take 1 capsule (40 mg) by mouth 2 times daily. 60 capsule 025 2024 Active cyanocobalamin (Vitamin B-12) 1000 MCG/ML injection INJECT 1 ML INTRAMUSCULARLY EVERY MONTH DIRECTED 1 mL Active cyanocobalamin (Vitamin B-12) 1000 MCG/ML injection INJECT 1 ML INTRAMUSCULARLY EVERY MONTH DIRECTED 1 mL 025 2024 Discontinued(R eorder (will not trigger notification to Pharmacy)) Trulicity 1.5 MG/0.5ML solution auto-injector INJECT ONE PEN (=1.5MG) SUBCUTANEOUSLY ONCE A WEEK DIRECTED 025 2024 Discontinued(S kelle effects) omeprazole (PriLOSEC) [address] capsule Take 1 capsule by mouth 2 times daily. 025 2024 Discontinued(R eorder (will not trigger notification to Pharmacy)) cyanocobalamin (Vitamin B-12) 1000 MCG/ML injection INJECT 1 ML INTRAMUSCULARLY EVERY MONTH DIRECTED 1 mL 025 2024 Discontinued(R eorder (will not trigger notification to Pharmacy)) Hospital, Clinic, or Other Facility Administered Medication Ordered Dose Route Frequency Start Date End Date Status cyanocobalamin (Vitamin B-12) injection 1,000 mcgIndications:Pernicio us anemia 1000 mcg IM Every 30 days 06/29/2022 Active cyanocobalamin (Vitamin B-12) injection 1,000 mcgIndications:Cobalami n deficiency 1000 mcg IM Every 30 days 09/01/2022 Active cyanocobalamin (Vitamin B-12) injection 1,000 mcgIndications:Cobalami n deficiency 1000 mcg IM Every 30 days 08/31/2023 Active cyanocobalamin (Vitamin B-12) injection 1,000 mcgIndications:Cobalami n deficiency 1000 mcg IM Once 09/19/2024 09/19/2024 Ended Active Problems Problem Noted Date Diagnosed Date Abdominal bloating 09/19/2024 Acute hyperkalemia 09/19/2024 Asthma 09/19/2024 Diarrhea 09/19/2024 Diverticulitis 09/19/2024 Dysphagia 09/19/2024 Epigastric pain 09/19/2024 Obesity (BMI 30-39.9) 09/19/2024 UTI (urinary tract infection) 09/19/2024 Mild vascular dementia 09/03/2024 Assessment & Plan (09/03/2024 9:54 AM EST): Presumed vascular dementia, Referral to nursing for baseline assessment Follow up set up for ongoing work up Lifestyle supports reviewed GERD (gastroesophageal reflux disease) Assessment & Plan (09/03/2024 9:55 AM EST): [...] stable to live alone and 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 (daughter) Choking 01/05/2024 Cough 01/05/2024 Hospital discharge follow-up 01/05/2024 Lymphedema 03/29/2023 Pneumonia 03/29/2023 Preop cardiovascular exam 03/29/2023 Renal insufficiency 03/29/2023 Urinary urgency 03/29/2023 Atrial fibrillation 11/17/2022 History of arthroplasty of right knee 11/17/2022 Varicose veins of right lower extremity with inf lammation 11/17/2022 Type 2 diabetes mellitus with obesity ([facility]) 08/31/2022 Lentiginosis 10/13/2018 JOVANNI (obstructive sleep apnea) 10/02/2018 Overview (09/19/2024): Not using CPAP Chronic diastolic heart failure 05/25/2018 Overview (09/21/2023): [address] [id number] CARDIOLOGY NAME: SAMMIE FRANCOIS CERTIFIED WELDER: QUINTANILLA UNIT #: [id number] PATIENT LOCATION: EKG REFERRING PHYSICIAN: ANIYA BERNARD MD DATE OF : 41 PCP: ANIYA BERNARD MD SEX: Female DATE: 04/20/18 CARD ECHO 2D M MODE W DOPPLER COLOR [phone] SYMPTOMS,HX?: I10 ESSENTIAL HTN; R60.0 LOCALIZED EDEMA Transthoracic Echocardiogram Patient (Last, First, Middle): SAMMIE FRANCOIS E Gender: Female Date of : 1945 Age: 72 Procedure Date: 04/20/2018 Procedure Type: Transthoracic Echocardiogram Location: OP Height: 157.48 cm Weight: 81.65 kg BSA: 1.83 m2 Heart Rate: bpm BP: 144 / 78 mmHg Payable Manager: Referring MD: ANIYA BERNARD MD Symptoms: I10 [...] of Final JANI IYER MD Report #: [id number] Status: Signed Dict: 04/20/18/ Trans: /SUBRAH DATE PRINTED: //date// TIME PRINTED: //time// COPY TO: //ivnm// //add1// //add2// //add3// Tubular adenoma of colon 05/25/2018 Primary osteoarthritis of both knees 04/21/2018 Hyperlipidemia 04/10/2018 Pernicious anemia 07/20/2017 Chronic idiopathic constipation 07/18/2017 Hypertension 07/18/2017 Cobalamin deficiency 06/16/2017 Vitamin D deficiency 06/16/2017 Resolved Problems Problem Noted Date Diagnosed Date Resolved Date CHF exacerbation 03/29/2023 03/29/2023 Osteoarthritis of right knee 03/29/2023 09/21/2023 Urge incontinence of urine 08/21/2018 0 09/21/2023 Knee pain 07/18/2017 09/21/2023 Tinea pedis 07/18/2017 09/21/2023 Encounters Date Type Department Care Team Description 09/19/2024 2:15 PM EDT Office Visit [facility] MEDICINE [address] [place] [phone] Name, MD Balta Stage 3 chronic kidney disease, unspecified whether stage 3a or 3b CKD (CMS/HCC) (Primary Dx); Hyperkalemia; Chronic diastolic heart failure (CMS/HCC); 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); Chronic constipation; Cobalamin deficiency; Encounter for immunization 09/19/2024 Refill [facility] MEDICINE [address] [place] [address] Balta Jeffrey MD 09/07/[address] [address] Balta Jeffrey MD Durable Medical Equipment 09/03/2024 9:00 AM EST Office Visit [address] [address] Jaymie Adams NP MARIA R (acute kidney injury) ([facility]) (Primary Dx); Esophagitis; Type 2 diabetes mellitus with obesity ([facility]) ([facility]); 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 ([facility]) 08/24/[address] [address] Balta Jeffrey MD Lab Orders 08/23/[address] [address] Kirsty Garcia MA Chart Prep 08/17/[address] [address] Balta Jeffrey MD Appointment Request 08/16/[address] [address] Balta Jeffrey MD Call Back Request 08/16/2024 Telephone [facility] CHC MED & PEDS [address] [place] [address] Balta Jeffrey MD Chart Prep 08/10/2024 Telephone [facility] WALK-IN CENTER [address] [place] [address] Caity Rain MD 08/10/[address] [address] Balta Jeffrey MD 08/10/2024 Orders Only [address] [address] Balta Jeffrey MD 08/06/2024 Patient Outreach [address] [address] Balta Jeffrey MD Transition Of Care (Tcm) (HDF- scheduled ) 08/06/[address] [address] Balta Jeffrey MD ER Follow-up 07/29/2024 Refill [facility] CHC MED & PEDS [address] [place] [address] Balta Jeffrey MD Vitamin D deficiency 07/27/2024 Telephone [facility] MEDICINE [address] [place] [address] Balta Jeffrey MD FYI 07/26/[address] [address] Flores Cabrera, RN 07/24/2024 Orders Only [facility] External Provider, [facility] 07/20/[address] [address] Balta Jeffrey MD Durable Medical Equipment 07/20/2024 Community Care Management [address] [address] [facility] Physician Eric MD 07/16/[address] [address] Balta Jeffrey MD 06/25/2024 10:30 AM EST Clinical Support [address] [address] Flores Cabrera, RN Cobalamin deficiency 06/25/2024 Travel from Last 3 Months Immunizations Name Administration Dates Next Due Influenza High-dose Quadriva lent Preservative Free 03/29/2023 Influenza injectable quadriv alent IIV4 with preservative 07/18/2017 Influenza injectable quadriv alent preservative free 04/18/2019 Influenza, High Dose Seasona l, Preservative Free 04/10/2018,05/12/2016,05/28/2015 Influenza, seasonal, injecta ble, preservative free 09/19/2024 Moderna Covid-19 Vaccine 12+ 08/13/2021,09/20/19 21,08/22/2020 Pneumococcal [...] Mass Index 33.13 09/19/2024 2:26 PM EDT Plan of Treatment Upcoming Encounters Date Type Department Care Team (Late st Contact Info) Description 12/17/2024 1:30 PM EDT Office Visit [facility] OPTOMETRY [address] [place] [address] Harry, Esther, OD [address] [place], [place] [phone] Health Maintenance Due Date Last Done Comments Diabetes: Foot Exam 11/11/1955 Eye Exam 11/11/1955 Zoster Vaccines (2 of 3) 09/12/2017 07/18/2017 RSV Patients and Patients Aged 60 years or older (1 - 1-dose 75+ series) 11/11/2018 COVID-19 Vaccine ( season) 2024 08/13/2021, 09/19/2020, 08/22/2020 Depression Screening 09/19/2024 09/20/2023, 09/20/19 SDOH Screening 09/19/2024 09/20/2023 Lipid Panel 12/25/2024 12/26/2023, 0312/2021, 08/12/2020 Diabetes: Urine Protein Screening 12/26/2024 12/27/2023, 08/12/2020 Alcohol/Substance Use Screening 02/23/2025 02/24/2024 Diabetes: Hemoglobin A1C 03/03/2025 025, 02/24/2024, 06/15/2023, Additional history exists Tobacco Screening 09/19/2025 09/19/2024 DTaP/Tdap/Td Vaccines (2 - Td or Tdap) 08/30/2029 08/30/2019 Pneumococcal Vaccine: 50+ Years Completed 08/30/2019, 08/21/2018, 05/12/2016 Influenza Vaccine Completed 09/19/2024, , 04/18/2019, Additional history exists HIB Vaccines Aged Out No longer eligi [...] (CMS/HCC) Hyperkalemia Chronic diastolic heart failure (CMS/HCC) POCT GLYCATED HEMOGLOBIN, TOTAL Routine 09/03/2024 9:15 AM EST 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) POCT GLUCOSE Routine 09/03/2024 9:10 AM EST 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) BASIC METABOLIC PANEL Routine 08/30/2024 11:50 AM [...] Relevant to Health Maintenance Results * POCT Glucose (09/19/2024 2:46 PM EDT) Only the most recent of2 resultswithin the time period is included. Glucose Blood, POC 192 60 - 200 mg/dL QC Media Lot # [id number] Lot# Expiration Date [id number] Blood Capillary blood specimen / Unknown 09/19/2024 2:46 PM EDT us Balta Jeffrey MD POINT OF CARE TEST ENTER/EDIT OR DERABLES Final Result * POCT HGB A1C (09/03/2024 9:15 AM EST) Hemoglobin A1C 5.3 4.0 - 6.0 % QC Media Lot # [id number] Lot# Expiration Date 183,328 Blood 09/03/2024 9:15 AM EST Jaymie Adams NP POINT OF CARE TEST ENTER/EDIT OR DERABLES Final Result * (ABNORMAL) Basic Metabolic Panel (08/30/2024 11:50 AM EST) Only the most recent of4 resultswithin the time period is included. Pathologist [facility] Sodium 144 135 - 145 mmol/L [facility] Potassium 5.1 3.3 - 5.1 mmol/L [facility] Chloride 111(H) 96 - 108 mmol/L [facility] Carbon Dioxide 27 22 - 29 mmol/L [facility] Anion Gap 11(L) 12 - 20 [facility] Urea Nitrogen (BUN) 25(H) 9 - 16 mg/dL [facility] Creatinine, Serum 1.20 0.5 - 1.4 mg/dL [facility] Estimated Glomerular Filt Rate 43 [facility] Comment:Chronic Kidney Disea se: Estimated GFR < 60 mL/min/1.51f6Iwyqpu Kidney Disease: Estimated GFR < 15 mL/min/1.73m2 Glucose 82 60 - 115 mg/dL [facility] Calcium 9.9 8.4 - 10.2 mg/dL [facility] Blood Venous blood specimen / Unknown 08/30/2024 11:50 AM EST 08/30/2024 1:10 PM EST us Balta Jeffrey MD LAB BLOOD ORDERABLES Final Resul t [facility] [address] [place] [phone] * US RENAL BI (08/12/2024 12:35 PM EST) Anatomical Region Laterality Modality Abdomen Ultrasound 08/12/2024 12:3 5 PM EST Narrative 08/12/2024 12:36 PM EST ? [facility] ?[address] ?[place] [address] ? Ultrasound Report ? Signed ? Patient: Fischer Mike,Jayne ?MR#: MM ?? [id number] ? : 1945 ?Acct:[id number] ? Age/Sex: 78 / F ?ADM Date: 08/10/24 ? Loc: HO.IMC ?485-1 ? Attending Dr: Ernesto Morgan DO ? Ordering Physician: Ernesto Morgan DO ?? Date of Service: 08/12/24 ?? Procedure(s): US renal BI ?? Accession Number(s): [id number] ? cc: Name,Balta MAYER; Ernesto Morgan DO [...] DD/ 1235 ? TD/TT: 08/12/24 1235 ? Water Mechanic: ? Procedure Note Gisselle, Image - 08/12/2024 [place] [address] Ultrasound Report Signed Patient: Sammie Francois EMR#: [id number] : 4Acct:[id number] Age/Sex: 78 / FADM Date: 08/10/24 Loc: [facility] 485-[address]: Ernesto Morgan DO Ordering Physician: Ernesto Morgan DO Date of Service: 08/12/24 Procedure(s): US renal BI Accession Number(s): [id number] cc: Balta Jeffrey MD; Ernesto Morgan DO [...] 08/12/24 1236 DD/ 1235 TD/TT: 08/12/24 1235 Water Mechanic: us [facility] External Provider IMG US PROCEDURES Final Result * FL Esophagus Barium Swallow w/Air (07/30/2024 7:00 AM EST) Anatomical Region Laterality Modality Head, Neck Radiographic Melissa ging 07/30/2024 7:00 AM EST Narrative 07/31/2024 9:06 AM EST ? [facility] ?[address] ?[place] [address] ? Fluoroscopy Report ? Signed ? Patient: Sammie Francois ?MR#: MM ?? [id number] ? : 1945 ?Acct:[id number] ? Age/Sex: 78 / F ?ADM Date: 07/24/24 ? Loc: HO.S3 ?387-1 ? Attending Dr: Renan Melton MD ? Ordering Physician: Renan Melton MD ?? Date of Service: 07/30/24 ?? Procedure(s): FL barium swallow with air ?? Accession Number(s): [id number] ? cc: Renan Melton MD; Name,Balta MAYER ? EXAMINATION: ?? XR FLUOROSCOPY UPPER GI WITH AIR ? CLINICAL INFORMATION: ?? Dysphagia. ? COMPARISON: ?? Barium swallow 2015. ? TECHNIQUE: ?? Fluoroscopic air contrast upper [...] DD/ 0700 ? TD/TT: 07/30/24 1110 ? Water Mechanic: ? Procedure Note Donotuseinterpreter, Image - 07/31/2024 [place] [address] Fluoroscopy Report Signed Patient: Sammie Francois EMR#: [id number] : 4Acct:[id number] Age/Sex: 78 / FADM Date: 07/24/24 Loc: .S3 387-[address]: Renan Melton MD Ordering Physician: Renan Melton MD Date of Service: 07/30/24 Procedure(s): FL barium swallow with air Accession Number(s): [id number] cc: Renan Melton MD; Name,Balta MAYER EXAMINATION: [...] by Dr. Acuna Electronically signed by: Troy Acuan MD 07/31/2024 09:04 AM EST Dictated By: Gabriel Ribeiro Signed By: <Electronically signed by Gabriel Ribeiro in OV> 07/31/24 0904 <Electronically signed by Troy Acuna MD in OV> 07/31/24 0906 DD/ 0700 TD/TT: 07/30/24 1110 Water Mechanic: [facility] Exter nal Provider IMG FLUOROSCOPY PROCEDURES Edited Result - Final * Lactic Acid (07/24/2024 9:08 PM EST) Lactic Acid 1.0 0.5 - 2.0 mmol/L [facility] 07/24/2024 9:08 PM EST 07/24/2024 9:17 PM EST Generic External Data Provider LAB BLOOD ORDERAB LES Final Result [facility] [address] [place] [phone] * CT Abdomen Pelvis w/o Contrast (07/24/2024 9:06 PM EST) Anatomical Region Laterality Modality Body, Pelvis, Abdomen Computed T omography 07/24/2024 9:06 PM EST Narrative 07/24/2024 9:08 PM EST ? [facility] ?[address] ?[place] [address] ? CT Scan Report ? Signed ? Patient: Amado Mike,Sammie Chin ?MR#: MM ?? [id number] ? : 1945 ?Acct:[id number] ? Age/Sex: 78 / F ?ADM Date: 07/24/24 ? Loc: HO.ED ? Attending Dr: ? Ordering Physician: Vida Regalado CNP ?? Date of Service: 07/24/24 ?? Procedure(s): CT abdomen pelvis wo IV con ?? Accession Number(s): [id number] ? cc: Vida Regalado CNP; [facility] ? Report Number: ?? [id number]: Total DLP = ??680.00 mGy-cm ? CLINICAL [...] ? DD/ 05 ? TD/TT: 07/24/242105 ? Water Mechanic: ? Procedure Note Donotuseinterpreter, Image - 07/24/[address] [address] Scan Report Signed Patient: Sammie Francois EMR#: [id number] : 4Acct:[id number] Age/Sex: 78 / FADM Date: 07/24/24 Loc: HO.ED Attending Dr: Ordering Physician: Vida Regalado CNP Date of Service: 07/24/24 Procedure(s): CT abdomen pelvis wo IV con Accession Number(s): [id number] cc: Vida Regalado CNP; [facility] Report Number: [id number]: Total DLP = 680.00 mGy-cm CLINICAL HISTORY: diarrhea,vomiting, ABD pain, UTI, MARIAR CT abdomen and pelvis without contrast Comparison: [...] in OV> 07/24/242106 DD/ 05 TD/TT: 07/24/242105 Water Mechanic: [facility] External Provider IMG CT PROCEDURES Final Result * Glucose, Whole Blood (07/24/2024 8:59 PM EST) Glucose, Whole Blood 70 60 - 115 mg/dL [facility] Comment:METER #: [id number] 07/24/2024 8:59 PM EST 07/24/2024 9:02 PM EST Generic External Data Provider LAB BLOOD ORDERAB LES Final Result [facility] [address] [place] [phone] * SARS-CoV-2 RNA, Influenza A/B, and RSV RNA, Ql NAAT (07/24/2024 7:20 PM EST) Influenza A PCR NEGATIVE Negative [facility] Influenza B PCR NEGATIVE Negative [facility] Resp Syncy Virus RNA Qual PCR NEGATIVE Negative [facility] SARS COV2 PCR NEGATIVE Negative [facility] Comment:All test results mus t [...] use by authorized laboratories.Testing performed on the [employer] GeneXpert utilizingreal-time RT-PCR.All SARS CoV2 and positive influenza A/B results arereported to [facility]. 07/24/2024 7:20 PM EST 07/24/2024 7:22 PM EST us Generic External Data Provider LAB MICROBIOLOGY - GENERAL ORDERABLES Final Result [facility] [address] [place] [address] [phone] * (ABNORMAL) CBC auto differential (07/24/2024 7:20 PM EST) White Blood Count 6.5 4.8 - 10.8 X10*3/uL [facility] Red Blood Count 4.09(L) 4.20 - 5.50 X10*6/uL [facility] Hemoglobin 11.3(L) 12.0 - 16.0 g/dl [facility] Hematocrit 34.5(L) 37.0 - 47.0 % [facility] Mean Corpuscular Volume 84.4 80.0 - 98.0 fL [facility] Mean Corpuscular Hemoglobin 27.6 27.0 - 33.0 pg [facility] Mean Corpuscular HGB Conc 32.8 31.0 - 35.0 g/dl [facility] Red Cell Distribution Width 16.1(H) 11.0 - 16.0 % [facility] Platelet Count 210 160 - 400 X10*3/uL [facility] Mean Platelet Volume 10.6 9.4 - 12.3 fL [facility] Neutrophils Percent Auto 72.3 45 - 73 % [facility] Imm Gran Pct Auto 0.6(H) 0.0 - 0.4 % [facility] Lymphocytes Percent Auto 19.9(L) 20 - 40 % [facility] Monocytes Percent Auto 5.4 2 - 11 % [facility] Eosinophils Percent Auto 1.5 0 - 4 % [facility] Basophils Percent Auto 0.3 0 - 2 % [facility] NRBC Pct Auto 0.0 0.0 - 0.2 /100WBC [facility] Neutrophils Absolute Auto 4.7 2.0 - 8.3 x10*3/uL [facility] Imm Gran Abs Auto 0.04(H) 0.00 - 0.03 X10*3/uL [facility] Lymphocytes Absolute Auto 1.3 1.2 - 4.9 X10*3/uL [facility] Monocytes Absolute Auto 0.4 0.1 - 1.2 X10*3/uL [facility] Eosinophils Absolute Auto 0.1 0.0 - 0.4 X10*3/uL [facility] Basophils Absolute Auto 0.0 0.0 - 0.2 X10*3/uL [facility] NRBC Abs Auto 0.000 0.0 - 0.012 X10*3/uL [facility] 07/24/2024 7:20 PM EST 07/24/2024 7:22 PM EST us Generic External Data Provider LAB BLOOD ORDERAB LES Final Result Performing Organization Address City/[facility] [address]/ZIP Co de Phone Number [facility] [address] [place] [phone] * Magnesium (07/24/2024 7:20 PM EST) Magnesium 2.4 1.6 - 2.6 mg/dL [facility] 07/24/2024 7:20 PM EST 07/24/2024 7:22 PM EST us Generic External Data Provider LAB BLOOD ORDERAB LES Final Result Performing Organization Address [facility] [address]/[facility] Co de Phone Number [facility] [address] [place] [phone] * Lipase (07/24/2024 7:20 PM EST) Lipase 38 8 - 78 U/L [facility] 07/24/2024 7:20 PM EST 07/24/2024 7:22 PM EST us Generic External Data Provider LAB BLOOD ORDERAB LES Final Result [facility] [address] [place] [phone] * (ABNORMAL) Comprehensive Metabolic Panel (07/24/2024 7:20 PM EST) Sodium 139 135 - 145 mmol/L [facility] Potassium 6.3(HH) 3.3 - 5.1 mmol/L [facility] Comment:Critical value for t est(s): POTS Results called to and readback by: ALONZO Person calling:YASSINE Date: 07/24/24 Time:1952 Chloride 110(H) 96 - 108 mmol/L [facility] Carbon Dioxide 25 22 - 29 mmol/L [facility] Anion Gap 10(L) 12 - 20 [facility] Urea Nitrogen (BUN) 51(H) 9 - 16 mg/dL [facility] Creatinine, Serum 2.29(H) 0.5 - 1.4 mg/dL [facility] Creatinine Clr Calc Pharmacy 19.0 [facility] Comment:Provided height and weight: 152.4 cm,85.4 kg.eGFR (calculated from the MDRD study equation) and eCrCl(calculated from the Cockcroft-Gault equation) are based ondifferent parameters and may not yield comparable results.If eCrCl result is absurd, please check patient'sheight/weight. Estimated Glomerular Filt Rate 21 [facility] Comment:Chronic Kidney Disea se: Estimated GFR < 60 mL/min/1.23e0Ejwycf Kidney Disease: Estimated GFR < 15 mL/min/1.73m2 Glucose 97 60 - 115 mg/dL [facility] Calcium 9.8 8.4 - 10.2 mg/dL [facility] Bilirubin, Total 0.3 0.0 - 1.0 mg/dL [facility] Aspartate Amino Transferase 30 5 - 31 U/L [facility] Alanine Aminotransferase 30 0 - 31 U/L [facility] Total Protein 7.6 6.5 - 8.0 g/dL [facility] Albumin Level 4.1 3.5 - 5.0 g/dL [facility] Alkaline Phosphatase 193(H) 39 - 117 U/L [facility] 07/24/2024 7:20 PM EST 07/24/2024 7:22 PM EST us Generic External Data Provider LAB BLOOD ORDERAB LES Final Result Performing Organization Address [facility] [address]/ZIP Co de Phone Number [facility] [address] [place] [phone] * (ABNORMAL) Urinalysis, Complete, with Reflex to Culture (07/24/2024 5:15 PM EST) Color Urine Yellow [facility] Appearance Urine Clear [facility] PH 7.0 5.0 - 9.0 [facility] Glucose Urine UA 250(A) Negative mg/dL [facility] Urine Blood Negative Negative [facility] Specific [place] - Urine <=1.005 1.005 - 1.025 [facility] Urine Protein Negative Neg-Trace mg/dL [facility] Urine Ketones Negative Negative mg/dL [facility] Nitrite Urine Negative Negative [facility] Leukocyte Esterase Urine Moderate (2+)(A) Negative [facility] RBC Urine 3-5(A) 0 - 2 /HPF [facility] Urine WBC 11-20(A) 0 - 5 /HPF [facility] Urine Squamous Epithelial Cell 0-2 0 - 2 /HPF [facility] Urine Bacteria 4+ None Seen [facility] Hyaline Casts, Urine 3-5 0 - 2 /LPF [facility] 07/24/2024 5:15 PM EST 07/24/2024 5:19 PM EST Narrative [facility] - 07/24/2024 5:50 PM EST Urine, Clean Catch us Generic External Data Provider LAB URINE ORDERAB LES Final Result Performing Organization Address [facility] Co de Phone Number [facility] [address] [place] [phone] * Albumin, Random Urine W/Creatinine (12/27/2023 9:45 AM EDT) Creatinine, Urine 90.13 mg/dL [facility] Microalbumin Urine 11.0 mg/L [facility] Microalbum Creatinine Ratio Ur 12.2 <30 ug/mg cr [facility] Comment:Albumin/Creatinine R atio Reference Ranges: Normal: < 30 ug/mg creatinine Microalbuminuria: 30 - 300 ug/mg creatinineClinical Albuminuria: > 300 ug/mg creatinine Urine (Urine, Random) 12/27/2023 9:45 AM EDT 12/27/2023 11:23 AM EDT us Balta Name LAB URINE ORDERABLES Final Resul t [facility] [address] [place] [phone] * Lipid Panel, Standard (12/26/2023 1:22 PM EDT) Triglycerides 52 <150 mg/dL [facility] Comment:Desirable Triglyceri de: less than 150 mg/dLBorderline High Triglyceride 150-199 mg/dLHigh Triglyceride: 200-499 mg/dLVery High Triglyceride: greater than or equal to 5OO mg/dL Cholesterol 169 <200 mg/dL [facility] Comment:Desirable Cholestero l: less than 200 mg/dLBorderline High Cholesterol: 200-239 mg/dLHigh Cholesterol: greater than 239 mg/dL LDL Cholesterol Calculated 92 <100 mg/dL [facility] Comment:Desirable LDL: less than 100 mg/dLNear Optimal/Above Optimal LDL: 110- 129 mg/dLBorderline High LDL: 130-159 mg/dLHigh LDL: 160-189 mg/dLVery High LDL: greater than or equal to 190 mg/dL HDL Cholesterol 67 >40 mg/dL [facility] Comment:Desirable HDL: great er than 40 mg/dL Note: This HDL assay may give artificially low results in patients with liver disease. Blood Venous blood specimen / Unknown 12/26/2023 1:22 PM EDT 12/26/2023 3:56 PM EDT Balta Jeffrey MD LAB BLOOD ORDERABLES Final Resul t [facility] [address] [place] [phone] from Last 3 Months or Most Recently Relevant to Health Maintenance Insurance [facility] Care Teams Hand Winder Relationship Specialty Start Date End Date Name, MD Balta [address] [place] [phone] PCP - General Internal Medicine 06/14/22 Samir TAI 08/05/24
--- OUTSIDE RECORDS SUMMARY | 2024-09-19 18:31 | XMS_ITS | Encounter Summary ---
Author Organization [employer] Address [address] [facility] [address] [place] [address] Care Team Providers Care Forensic Dna Analyst Name Role Phone Name, Balta MAYER Primary Care Provider [phone] Reason for Visit * Reason Onset Date Comments Chart Prep 08/23/2024 Encounter Details Date Type Department Care Team (Late st Contact Info) Description 08/23/2024 Telephone [facility] [address] [place] [address] Kirsty Garcia MA Chart Prep Social History [...] Description 12/17/2024 1:30 PM EDT Office Visit [facility] [address] [place] [address] Harry, Esther, OD [address] [place] [address] documented as of this encounter Visit Diagnoses Not on filedocumented in this encounter Additional Health Concerns Assessment Noted Time PHQ-9 Depression Total Score: 0 09/20/19 24 1:15 PM EDT documented as of this encounter Care Teams Forensic Dna Analyst Relationship Specialty Start Date End Date Name, MD Balta [address] [place] [address] PCP - General Internal Medicine 06/14/22 [facility] documented as of this encounter
--- OUTSIDE RECORDS SUMMARY | 2024-09-19 18:31 | XMS_ITS | Encounter Summary ---
Author Organization [employer] Address [address] [facility] [address]t [place] [address] Care Team Providers Care Carpet Renovator Name Role Phone Name, Balta MAYER Primary Care Provider [phone] Reason for Visit * Reason Onset Date Comments Med Refill 09/19/2024 Encounter Details Date Type Department Care Team (Late st Contact Info) Description 09/19/2024 Refill [facility] [address] [place] [address] Name, MD Balta [address] [place] [address] Social History Tobacco Use Types Packs/Day Years [...] encounter Miscellaneous Notes * Telephone Encounter - Odilia Shahid LPN - 09/19/2024 9:18 AM EDT Expected 09/19/24. * Telephone Encounter - Luther Pardo - 09/19/2024 9:15 AM EDT TC from pt requesting medication refill. Medications needing refill : cyanocobalamin (Vitamin B-12) injection 1,000 mcg To be sent to: [facility] - [place], [place] - [address] [facility] documented in this encounter Plan of Treatment Upcoming Encounters Date Type Department Care Team (Late st Contact Info) Description 12/17/2024 1:30 PM EDT Office Visit [facility] [address] [place], [place] [id number] Esther Mcdonald, OD [address] [place] [address] documented as of this encounter Visit Diagnoses Not on filedocumented in this encounter Additional Health Concerns Assessment Noted Time PHQ-9 Depression Total Score: 0 09/20/19 24 1:15 PM EDT documented as of this encounter Care Teams Carpet Renovator Relationship Specialty Start Date End Date Name, MD Balta [address] [place] [address] PCP - General Internal Medicine 06/14/22 Samir Luci 08/05/24 documented as of this encounter
--- OUTSIDE RECORDS SUMMARY | 2024-09-19 18:31 | XMS_ITS | Encounter Summary ---
Author Organization [employer] Address [address] [facility] 7t [place] [address] Care Team Providers Care Lot Attendant Name Role Phone Name, Balta MAYER Primary Care Provider [phone] Reason for Visit * Reason Onset Date Comments Lab Orders 08/24/2024 Encounter Details Date Type Department Care Team (Late st Contact Info) Description 08/24/2024 Telephone [facility] [address] [place] [phone] Name, MD Balta [address] [place] [phone] Lab Orders Social History Tobacco Use Types [...] PM EST TC placed to Kavitha from [facility] regarding blood work being done on pt. Kavitha asking if provider wanted [facility] to draw labs or if the pt was advised of different instructions. RN informed Kavitha that the provider put in an order for BMP to be completed before pt appointment on 09/03/24, but no instruction on if provider wanted [facility] to draw labs. Kavitha with [facility] states they will draw BMP. * Telephone Encounter - Luis Boston - 08/24/2024 1:08 PM EST Tc from Kavitha from [facility] requesting a call back in regards to bloodwork being done on pt. Kavitha:[phone] documented in this encounter Plan of Treatment Upcoming Encounters Date Type Department Care Team (Late st Contact Info) Description 12/17/2024 1:30 PM EDT Office Visit [facility] [address] [place] [address] Esther Mcdonald, OD [address] [place] [address] documented as of this encounter Visit Diagnoses Not on filedocumented in this encounter Additional Health Concerns Assessment Noted Time PHQ-9 Depression Total Score: 0 09/20/19 24 1:15 PM EDT documented as of this encounter Care Teams Lot Attendant Relationship Specialty Start Date End Date Name, MD Balta [address] [place] [address] PCP - General Internal Medicine 06/14/22 Samir TAI 08/05/24 documented as of this encounter
--- OUTSIDE RECORDS SUMMARY | 2024-09-19 18:31 | XMS_ITS | Encounter Summary ---
Author Organization [employer] Address [address] [facility] 7[address] [place] [address] Care Team Providers Care Management Services Technician Name Role Phone Name, Balta MAYER Primary Care Provider [phone] Reason for Visit * Reason Onset Date Comments ER Follow-up 08/06/2024 Encounter Details Date Type Department Care Team ([facility] Contact Info) Description 08/06/2024 Telephone [facility] [address] [place] [address] Name, MD Balta [address] [place] [address] ER Follow-up Social History Tobacco Use Types [...] from pt requesting a HDF appt. Hospital: [facility] Date of admission: 07/24/24 Discharge date: 08/02/24 Diagnosed: Acute Dysphagia *Send message to [place] [facility] Coordinators documented in this encounter Plan of Treatment Upcoming Encounters Date Type Department Care Team (Late st Contact Info) Description 12/17/2024 1:30 PM EDT Office Visit [facility] [address] [place] [address] Harry, Esther, OD [address] [place] [address] documented as of this encounter Visit Diagnoses Not on filedocumented in this encounter Additional Health Concerns Assessment Noted Time PHQ-9 Depression Total Score: 0 09/20/19 24 1:15 PM EDT documented as of this encounter Care Teams Management Services Technician Relationship Specialty Start Date End Date Name, MD Balta [address] [place] [address] PCP - General Internal Medicine 06/14/22 Samir TAI 08/05/24 documented as of this encounter
[2024-09-19 18:41] LABS: Anion Gap 13 (12-20); Blood Urea Nitrogen 20 mg/dL (9-16); Calcium 10.1 mg/dL (8.4-10.2); Carbon Dioxide 26 mmol/L (22-29); Chloride 108 mmol/L (96-108); Estimated Glomerular Filt Rate 37; Glucose Random 123 mg/dL (60-115); Magnesium 2.6 mg/dL (1.6-2.6); Potassium 4.8 mmol/L (3.3-5.1); Sodium 142 mmol/L (135-145)
== END 2024-09-19 16:06 | disposition home or self-care (01) ==
LOC: HO.HHCL 16:05
PROVIDERS: Visit Provider Internal Medicine Geriatric Medicine
DX: N18.30 Chronic kidney disease, stage 3 unspecified (principal); K59.09 Other constipation; E87.5 Hyperkalemia; I50.32 Chronic diastolic (congestive) heart failure
CPT/HCPCS: 36415; 80048; 83735

== ENCOUNTER 2024-10-08 16:10 | Inpatient (IN) | payer OTHER, SELFPAY ==
[2024-10-08] VITALS (7 sets, daily range): BP systolic 92–147; BP diastolic 41–79; PULSE 46–58; RESP 15–21; TEMP 32.4–34.3; O2SAT 93–97; BMI 37.4
--- NOTE | ~2024-10-08 | XR_ITS ---
CLINICAL HISTORY: wekness, hypotension 1 view chest x-ray. Comparison: 01/02/2024 Findings: Heart size is enlarged. Pulmonary vasculature is prominent. There is bilateral infrahilar atelectasis and consolidation. No pleural fluid. No acute fracture. Impression: 1. Cardiomegaly with pulmonary vascular congestion. 2. Hypoventilation. 2. Alveolar opacity in both lung bases consistent with atelectasis/early consolidation. This document has been electronically signed by: Brett Davison MD on 10/08/2024 18:26:40
--- NOTE | ~2024-10-08 | FL_ITS ---
EXAMINATION: FL GUIDANCE ONLY HISTORY: cystoscopy ureteroscopy with stent placement COMPARISON: Correlation is made with a CT of the abdomen and pelvis with contrast 10/08/2024. TECHNIQUE: Fluoroscopy time: 16.3 seconds. Cumulative Dose: 5.95 mGy. Images: 3. FINDINGS: The initial image demonstrates opacification of the right intrarenal collecting system and proximal ureter. A meniscus is seen at the UPJ. The final images demonstrate placement of a right nephroureteral stent. FL/FL guidance in OR IMPRESSION: Fluoroscopy during procedure. Please see procedure report for additional information. Electronically signed by: Abdirashid Rodriguez MD 10/09/2024 01:14 PM EDT
--- NOTE | ~2024-10-08 | CT_ITS ---
CLINICAL HISTORY: abdomional pain, hypothermia CT abdomen and pelvis with contrast Comparison: CT - CT ABDOMEN PELVIS W IV CON - 10/08/24 18:33 EDT Findings: The heart is mildly enlarged. Trace right effusion. Mild interlobular septal thickening and regions of probable atelectasis. The liver, gallbladder, spleen and adrenal glands demonstrate no acute process. Similar to prior, there is a calculus within the proximal right ureter, coronal 36. This measures approximately 4 mm. There is mild right hydronephrosis. No left-sided ureteral calculus. The bladder is mildly thick-walled and there is stranding about the bladder. No bowel obstruction or free air. Severe atherosclerotic disease of the aorta. No acute osseous abnormality detected. Impression: The bladder is mildly thick-walled and there is stranding about the bladder. Correlation for cystitis. There is a 4 mm calculus within the proximal right ureter with mild right hydronephrosis. Cardiomegaly with possible mild interstitial edema. Clinical correlation. This document has been electronically signed by: Faraz Hull MD on 10/08/2024 20:07:18
--- NOTE | 2024-10-08 16:58 | ED.GENADULT ---
HPI - General Adult General Chief complaint: Recheck/Abnormal Lab/Rx Stated complaint: Lethargy, increasing weakness, UTI Time Seen by Provider: 10/08/24 16:57 History of Present Illness ED Provider: Lyndsay WONG narrative: The patient is an 78-year-old woman who lives at home with her daughter. Apparently she did not feel very well over the last few days and 2 days ago she had a home visit from a medical team from the [facility]. A urine sample was obtained. Yesterday the patient was apparently given a dose of ceftriaxone because of the abnormal urinalysis. Today the [facility] team went back to the house and felt that she seemed very weak and had a blood pressure of 109/63. At that point the decision was made to send her to the hospital. The [facility] team was concerned that she had urosepsis. On arrival here the patient was found to have a temperature of 90.4 degrees, heart rate of 46, and a blood pressure of 120/50. I was able to contact a nurse from the [facility] who told me that the the patient received a dose of ceftriaxone yesterday and was prescribed cefpodoxime. Additionally I was told that the preliminary results of the urine culture obtained on Tuesday show Gram-negative rods. The patient denies headache, chest pain or significant abdominal pain. No flank pain. Related Data Home Medications ?Medication ?Instructions ?Recorded ?Confirmed oxybutynin chloride 5 mg tablet 5 mg PO BID 05/15/20 09/12/24 calcium carbonate 1 tab PO DAILY 03/24/21 09/12/24 cholecalciferol (vitamin D3) 25 1 tab PO DAILY 03/24/21 09/12/24 mcg (1,000 unit) tablet fluticasone propionate 50 1 - 2 spray intranasal DAILY PRN 03/24/21 09/12/24 mcg/actuation nasal Nasal Congestion spray,suspension cyanocobalamin (vitamin B-12) 1,000 mcg IM Q28D 11/02/22 09/12/24 1,000 mcg/mL injection solution cetirizine 10 mg tablet 10 mg PO DAILY 07/17/24 09/12/24 mirtazapine 15 mg tablet 15 mg PO BEDTIME 07/17/24 09/12/24 amlodipine 10 mg tablet 10 mg PO BEDTIME 07/24/24 09/12/24 empagliflozin 10 mg tablet 10 mg PO DAILY 07/24/24 09/12/24 (Jardiance) Previous Rx's ?Medication ?Instructions ?Recorded walker #1 ea 03/02/21 acetaminophen 325 mg tablet 650 mg (2 x 325 mg) PO Q6H PRN 05/29/21 Pain, Mild (Pain Scale 1-3) 30 days #240 tabs apixaban 5 mg tablet (Eliquis) 5 mg PO BID #180 tabs 10/04/23 atorvastatin 40 mg tablet 40 mg PO DAILY 90 days #90 tabs 12/28/23 furosemide 40 mg tablet 40 mg PO DAILY 90 days #90 tabs 02/09/24 carvedilol 25 mg tablet 25 mg PO BID #180 tabs 05/29/24 omeprazole 40 mg capsule,delayed 40 mg PO BID #120 caps 08/02/24 release docusate sodium 100 mg capsule 100 mg PO DAILY #30 caps 09/25/24 (Colace) Allergies Allergy/AdvReac Type Severity Reaction Status Date / Time Penicillins [PENICILLINS] Allergy Intermediate NAUSEA/HIVE Verified 10/08/24 16:36 S metformin AdvReac Unknown Diarrhea Verified 10/08/24 16:36 Review of Systems Review of Systems: Yes all other systems are reviewed and are negative PMFSH Past Medical History Medical History Epigastric pain Tubular adenoma of colon Preop cardiovascular exam Urinary urgency Pneumonia Hospital discharge follow-up Asthma MARIA R (acute kidney injury) GERD (gastroesophageal reflux disease) Diabetes Osteoarthritis Hyperlipidemia Chronic diastolic heart failure Hypertension JOVANNI (obstructive sleep apnea) Surgical History Hx of cataract surgery Status post total knee replacement, right History of arthroplasty of right knee Hx of colonoscopy H/O: hysterectomy History of salpingoophorectomy History of tonsillectomy Family History Family History Father HTN (hypertension) Mother HTN (hypertension) CVD (cardiovascular disease) Daughter Bone cancer Father Cancer Social History Social History Household Members: Family Housing: House Are you a primary critical care registered nurse to a significant other at home: No Do you presently have visiting nurse or other home services: Yes Unable to assess alcohol history related to: Unknown Alcohol intake: never Comment: Advised to remove Patient Tobacco Use Status: Never used Tobacco Smoked in Last 30 Days: No e-Cigarette/Vaping Use: Never Used Second Hand Smoke Exposure: No Use of substances other than those prescribed or required for medical reasons: No Advance Directives: No Advance Directives Information Provided: Yes Nutrition Risks: No Nutritional Risk Patient : No service: No Current occupational status: retired Current occupation: Right handed Physical Exam ED Vital Signs: Vital Signs - 24 hr 10/08/24 16:34 10/08/24 19:36 10/08/24 20:40 Temperature 90.4 F L 91 F L 91.9 F L Pulse Rate 46 L 48 L Respiratory Rate 21 H 16 Blood Pressure 120/50 L 92/41 L Pulse Oximetry 97 96 Oxygen Delivery Method Room Air 10/08/24 21:35 10/08/24 21:48 Temperature 93.2 F L 93.4 F L Pulse Rate 55 57 Respiratory Rate 15 15 Blood Pressure 132/61 125/50 L Pulse Oximetry 93 93 Oxygen Delivery Method Room Air Room Air BMI result Body Mass Index 37.4 Const Other: The patient is a chronically ill-appearing 78-year-old woman with a BMI of 37. She looks weak and tired. She did not appear in obvious pain however. HENMT Other: Face is symmetrical. Mucous membranes not obviously dry. Eyes General: appearance normal, both eyes and all related structures Pupils: Equal, round and reactive pupils present EOM: EOMs intact bilaterally Neck Other: Moving the neck easily. The neck is thick. No obvious JVD. Resp Effort & Inspection: normal respiratory effort Auscultation: clear to auscultation bilaterally Cardio Rate: bradycardic Rhythm: regular rhythm Heart sounds: S1 normal heart sound present and S2 normal heart sound present GI Other: The patient had some generalized abdominal tenderness. Back/Spine/Pelvis Other: No obvious CVA percussion tenderness Skin Other: the skin was pale and dry Neuro Other: the patient is awake but seems quite generally weak. Pupils are round equal, extraocular movements were intact, face was symmetrical, tongue is midline, she moves her extremities symmetrically. Cranial nerves: Yes Equal, round and reactive pupils present Extrem Other: No pitting edema. No asymmetry. Medications Administered Generic Name Dose Route Start Last Admin Trade Name Kian PRN Reason Stop Dose Admin Melatonin 6 mg 10/08/24 21:55 10/08/24 23:58 Melatonin 3 Mg Tablet PO 6 mg BEDTIME PRN Administration Insomnia Sodium Chloride 3 ml 10/09/24 00:00 10/08/24 23:58 0.9 % Sodium Chloride Flush 3 Ml Syringe IVFLUSH 3 ml QSHIFT BENJIE Administration Discontinued Medications Generic Name Dose Route Start Last Admin Trade Name Freq PRN Reason Stop Dose Admin Ceftriaxone Sodium 1 gm 10/08/24 17:42 10/08/24 17:51 Ceftriaxone Sodium 1 Gm Vial IVPUSH 10/08/24 17:43 1 gm ONCE ONE Administration Sodium Chloride 1,000 mls @ 500 mls/hr 10/08/24 17:45 10/08/24 21:07 Ns IV 10/08/24 19:44 Infused .Q2H BENJIE Infusion Iohexol 85 ml 10/08/24 18:44 10/08/24 18:46 Iohexol 350 Mg/Ml 100 Ml Infus..Btl IV 10/08/24 18:45 85 ml ONCE ONE Administration Medical Decision Making Medical Decision Making MDM Narrative: The patient arrived bradycardic and hypothermic. Her blood pressures were somewhat borderline but she was not frankly hypotensive. My assumption was that she might be your a septic. Apparently she received a dose of ceftriaxone yesterday after having a urine sample taken the day before which is apparently already growing Gram-negative rods. The patient was given IV fluids and IV ceftriaxone. Surprisingly, given her hypothermia, her inflammatory markers were fairly unremarkable. She would not have an elevated white count or a significantly elevated CRP or procalcitonin. her lactate was normal. A CT scan of the abdomen and pelvis shows a right-sided proximal ureteral stone with some mild right-sided hydronephrosis. The patient was placed on a Aren Hugger warming blanket because of her hypothermia. Overall the patient's Condition seemed to improve with IV fluids, warming, and antibiotics. I discussed the case with Dr. Salas of Urology by text. The patient will be admitted to the hospitalist service, NPO after midnight, Urology consult in the morning. Lab Data 10/08/24 17:32 10/08/24 21:05 Labs: Lab Results 10/08/24 10/08/24 10/08/24 Range/Units 17:31 17:32 17:44 WBC 6.0 (4.8-10.8) X10*3/uL RBC 3.39 L (4.20-5.50) X10*6/uL Hgb 9.2 L (12.0-16.0) g/dl Hct 29.5 L (37.0-47.0) % MCV 87.0 (80.0-98.0) fL MCH 27.1 (27.0-33.0) pg MCHC 31.2 (31.0-35.0) g/dl RDW 18.0 H (11.0-16.0) % Plt Count 111 L D (160-400) X10*3/uL MPV 11.1 (9.4-12.3) fL Immature Gran % (Auto) 1.8 H (0.0-0.4) % Neut % (Auto) 80.4 H (45-73) % Lymph % (Auto) 12.7 L (20-40) % [place] % (Auto) 4.0 (2-11) % Eos % (Auto) 0.8 (0-4) % Baso % (Auto) 0.3 (0-2) % Lymph # (Auto) 0.8 L (1.2-4.9) X10*3/uL [place] # (Auto) 0.2 (0.1-1.2) X10*3/uL Eos # (Auto) 0.1 (0.0-0.4) X10*3/uL Baso # (Auto) 0.0 (0.0-0.2) X10*3/uL Abs Immat Gran (auto) 0.11 H (0.00-0.03) X10*3/uL Absolute Neuts (auto) 4.8 (2.0-8.3) x10*3/uL Absolute Nucleated RBC 0.030 H (0.0-0.012) X10*3/uL Nucleated RBC % (auto) 0.5 H (0.0-0.2) /100WBC PT 21.2 H (10.9-12.4) SEC INR 1.8 H (0.9-1.1) VBG pH (7.32-7.43) VBG pCO2 mmHg VBG pO2 mmHg VBG HCO3 (22-26) mmol/L VBG O2 Saturation % VBG Base Excess mmol/L Sodium 138 (135-145) mmol/L Potassium 5.4 H (3.3-5.1) mmol/L Chloride 112 H (96-108) mmol/L Carbon Dioxide 24 (22-29) mmol/L Anion Gap 7 L (12-20) BUN 20 H (9-16) mg/dL Creatinine 1.35 (0.5-1.4) mg/dL Estim Creat Clear Calc 35.2 Estimated GFR 38 Random Glucose 190 H (60-115) mg/dL Lactic Acid 1.0 (0.5-2.0) mmol/L Calcium 9.4 D (8.4-10.2) mg/dL Magnesium 1.9 (1.6-2.6) mg/dL Total Bilirubin 0.2 (0.0-1.0) mg/dL Direct Bilirubin < 0.2 (0.0-0.5) mg/dL AST 51 H (5-31) U/L ALT 58 H (0-31) U/L Alkaline Phosphatase 170 H (39-117) U/L Troponin I High Sens < 2.7 (<3.5-17.0) ng/L C-Reactive Protein 1.74 H (< or = 0.50) mg/dL B-Natriuretic Peptide (<100) pg/mL Total Protein 6.1 L (6.5-8.0) g/dL Albumin 3.3 L (3.5-5.0) g/dL Lipase 45 (8-78) U/L Procalcitonin 0.03 ng/mL Urine Color Yellow Urine Appearance Turbid Urine pH 5.5 (5.0-9.0) Ur Specific [place] 1.010 (1.005-1.025) Urine Protein Negative (Neg-Trace) mg/dL Urine Glucose (UA) >=1000 H (Negative) mg/dL Urine Ketones Negative (Negative) mg/dL Urine Blood Small (1+) H (Negative) Urine Nitrite Negative (Negative) Ur Leukocyte Esterase Large (3+) H (Negative) Urine RBC 3-5 H (0-2) /HPF Urine WBC >50 H (0-5) /HPF Ur Squamous Epith Cells 6-10 (0-2) /HPF Urine Bacteria 2+ (None Seen) Hyaline Casts 11-20 (0-2) /LPF Urine Yeast Present Influenza Type A (PCR) NEGATIVE (Negative) Influenza Type B (PCR) NEGATIVE (Negative) RSV RNA Qual (PCR) NEGATIVE (Negative) SARS-CoV-2 RNA (RT-PCR) NEGATIVE (Negative) Blood Type Antibody Screen 10/08/24 10/08/24 10/08/24 Range/Units 17:50 21:05 21:10 WBC (4.8-10.8) X10*3/uL RBC (4.20-5.50) X10*6/uL Hgb (12.0-16.0) g/dl Hct (37.0-47.0) % MCV (80.0-98.0) fL MCH (27.0-33.0) pg MCHC (31.0-35.0) g/dl RDW (11.0-16.0) % Plt Count (160-400) X10*3/uL MPV (9.4-12.3) fL Immature Gran % (Auto) (0.0-0.4) % Neut % (Auto) (45-73) % Lymph % (Auto) (20-40) % [place] % (Auto) (2-11) % Eos % (Auto) (0-4) % Baso % (Auto) (0-2) % Lymph # (Auto) (1.2-4.9) X10*3/uL [place] # (Auto) (0.1-1.2) X10*3/uL Eos # (Auto) (0.0-0.4) X10*3/uL Baso # (Auto) (0.0-0.2) X10*3/uL Abs Immat Gran (auto) (0.00-0.03) X10*3/uL Absolute Neuts (auto) (2.0-8.3) x10*3/uL Absolute Nucleated RBC (0.0-0.012) X10*3/uL Nucleated RBC % (auto) (0.0-0.2) /100WBC PT (10.9-12.4) SEC INR (0.9-1.1) VBG pH 7.32 7.42 (7.32-7.43) VBG pCO2 46 33 mmHg VBG pO2 63 65 mmHg VBG HCO3 24 21 L (22-26) mmol/L VBG O2 Saturation 92.0 94.0 % VBG Base Excess -1.3 -1.9 mmol/L Sodium 140 (135-145) mmol/L Potassium 5.4 H (3.3-5.1) mmol/L Chloride 114 H (96-108) mmol/L Carbon Dioxide 21 L (22-29) mmol/L Anion Gap 10 L (12-20) BUN 19 H (9-16) mg/dL Creatinine 1.19 (0.5-1.4) mg/dL Estim Creat Clear Calc 40.0 Estimated GFR 44 Random Glucose 100 (60-115) mg/dL Lactic Acid 1.0 (0.5-2.0) mmol/L Calcium 9.1 (8.4-10.2) mg/dL Magnesium (1.6-2.6) mg/dL Total Bilirubin (0.0-1.0) mg/dL Direct Bilirubin (0.0-0.5) mg/dL AST (5-31) U/L ALT (0-31) U/L Alkaline Phosphatase (39-117) U/L Troponin I High Sens 2.9 (<3.5-17.0) ng/L C-Reactive Protein (< or = 0.50) mg/dL B-Natriuretic Peptide 66 (<100) pg/mL Total Protein (6.5-8.0) g/dL Albumin (3.5-5.0) g/dL Lipase (8-78) U/L Procalcitonin ng/mL Urine Color Urine Appearance Urine pH (5.0-9.0) Ur Specific [place] (1.005-1.025) Urine Protein (Neg-Trace) mg/dL Urine Glucose (UA) (Negative) mg/dL Urine Ketones (Negative) mg/dL Urine Blood (Negative) Urine Nitrite (Negative) Ur Leukocyte Esterase (Negative) Urine RBC (0-2) /HPF Urine WBC (0-5) /HPF Ur Squamous Epith Cells (0-2) /HPF Urine Bacteria (None Seen) Hyaline Casts (0-2) /LPF Urine Yeast Influenza Type A (PCR) (Negative) Influenza Type B (PCR) (Negative) RSV RNA Qual (PCR) (Negative) SARS-CoV-2 RNA (RT-PCR) (Negative) Blood Type A Negative Antibody Screen NEGATIVE Critical Care Time Critical Care Time Critical Care Time: Yes Total Critical Care Time: 35 Attestation: The patient was critically ill with a high probability of imminent or life-threatening deterioration. I spent greater than 30 minutes of discontinuous time evaluating the patient, delivering critical care at the bedside, discussing evaluating data with consultants. Critical care time does not include time spent performing separately billable procedures or teaching. Time spent performing critical care with 35 minutes. Discharge Plan Discharge Clinical Impression: Calculus of proximal right ureter, Bradycardia Urinary tract infection Qualifiers: Urinary tract infection type: acute cystitis Hematuria presence: without hematuria Qualified Code(s): N30.00 - Acute cystitis without hematuria Hypothermia Qualifiers: Encounter type: initial encounter Qualified Code(s): T68.XXXA - Hypothermia, initial encounter Patient Disposition: Admitted As Inpatient
--- NOTE | 2024-10-08 17:01 | PC.NURSE ---
Addendum entered by Thalia London RN 10/08/24 17:04: dr bhatia notified Original Note: pt rectal temp 90.4 at 1634, pt placed immediately on bare hugger, pt on continuous telemetry monitoring, call garcia in reach, family member at the bedside.
--- NOTE | 2024-10-08 17:20 | ECG_ITS ---
Test Reason : bradycardia Blood Pressure : */* mmHG Vent. Rate : 45 BPM Atrial Rate : 45 BPM P-R Int : 174 ms QRS Dur : 84 ms QT Int : 480 ms P-R-T Axes : 21 18 4 degrees QTcB Int : 415 ms Artifact in tracing Sinus bradycardia Apart from artifact, no obvious abnormalities. When compared with ECG of 10-Aug-2024 17:45, No significant change was found Referred By: Fernando Umana Electronically Signed By: REYNOLD IYER
[2024-10-08] MEDS: 0.9 % Sodium Chloride 1,000 ML 500 ML IV (17:48)
[2024-10-08 17:50] LABS: MANUAL DIFF FLAG NO
[2024-10-08] MEDS: cefTRIAXone sodium 1 GM VIAL IVPUSH (17:51)
[2024-10-08 17:53] LABS: Appearance Urine Turbid; Color Urine Yellow; Glucose Urine UA >=1000 mg/dL (Negative); Leukocyte Esterase Urine Large (3+) (Negative); Nitrite Urine Negative (Negative); PH 5.5 (5.0-9.0); UMIC TRIGGER UACC YES; Urine Blood Small (1+) (Negative); Urine Ketones Negative (Negative); Urine Protein Negative (Neg-Trace)
[2024-10-08 17:57] LABS: Basophils Percent Auto 0.3 % (0-2); Eosinophils Absolute Auto 0.1 X10*3/uL (0.0-0.4); Eosinophils Percent Auto 0.8 % (0-4); Hematocrit 29.5 % (37.0-47.0); Hemoglobin 9.2 g/dl (12.0-16.0); Imm Gran Abs Auto 0.11 X10*3/uL (0.00-0.03); Imm Gran Pct Auto 1.8 % (0.0-0.4); Lymphocytes Absolute Auto 0.8 X10*3/uL (1.2-4.9); Lymphocytes Percent Auto 12.7 % (20-40); Mean Corpuscular HGB Conc 31.2 g/dl (31.0-35.0); Mean Corpuscular Hemoglobin 27.1 pg (27.0-33.0); Monocytes Absolute Auto 0.2 X10*3/uL (0.1-1.2); NRBC Pct Auto 0.5 /100WBC (0.0-0.2); Neutrophils Absolute Auto 4.8 x10*3/uL (2.0-8.3); Neutrophils Percent Auto 80.4 % (45-73); Red Blood Count 3.39 X10*6/uL (4.20-5.50)
[2024-10-08 18:01] LABS: VBG Base Excess -1.3 mmol/L; VBG HCO3 24 mmol/L (22-26); VBG pCO2 46 mmHg; VBG pH 7.32 (7.32-7.43); VBG pO2 63 mmHg
[2024-10-08 18:03] LABS: Venous Blood Gas Refer to POC result
[2024-10-08 18:03] LABS: INTERNATIONAL NORM RATIO 1.8 (0.9-1.1); Prothrombin Time 21.2 SEC (10.9-12.4)
[2024-10-08 18:12] LABS: Alanine Aminotransferase 58 U/L (0-31); Albumin Level 3.3 g/dL (3.5-5.0); Alkaline Phosphatase 170 U/L (39-117); Anion Gap 7 (12-20); Aspartate Amino Transferase 51 U/L (5-31); Bilirubin Direct < 0.2 mg/dL (0.0-0.5); Bilirubin Total 0.2 mg/dL (0.0-1.0); Blood Urea Nitrogen 20 mg/dL (9-16); C Reactive Protein 1.74 mg/dL (< or = 0.50); Calcium 9.4 mg/dL (8.4-10.2); Carbon Dioxide 24 mmol/L (22-29); Chloride 112 mmol/L (96-108); Creatinine Clr Calc Pharmacy 35.2; Estimated Glomerular Filt Rate 38; Glucose Random 190 mg/dL (60-115); Lipase 45 U/L (8-78); Magnesium 1.9 mg/dL (1.6-2.6); Potassium 5.4 mmol/L (3.3-5.1); Sodium 138 mmol/L (135-145); Total Protein 6.1 g/dL (6.5-8.0)
[2024-10-08 18:16] LABS: Bacteria Urine 2+ (None Seen); UACC Culture Trigger YES; WBC Urine >50 /HPF (0-5)
--- OUTSIDE RECORDS SUMMARY | 2024-10-08 18:16 | XMS_ITS | Encounter Summary ---
Author Organization [employer] Address [address] [place] [address] Care Team Providers Care Records Supervisor Name Role Phone Name, Balta MAYER Primary Care Provider [phone] Encounter Details Date Type Department Care Team (Late st Contact Info) Description 07/20/2024 Community Care Management [facility] [address] [place], [place] [phone] Epic[facility] Link, Physician, Social History Tobacco Use [...] Care Team (Late st Contact Info) Description 10/22/2024 1:00 PM EDT Clinical Support [facility] [address] [place] [address] 12/17/2024 1:30 PM EDT Office Visit [facility] OPTOMETRY [address] [place] [address] Harry, Esther, OD [address] [place] [address] 01/21/2025 10:00 AM EDT Office Visit [facility] [address] [place] [phone] Name, MD Balta [address] [place] [phone] documented as of this encounter Visit Diagnoses Not on filedocumented in this encounter Additional Health Concerns Assessment Noted Time PHQ-9 Depression Total Score: 0 09/20/19 24 1:15 PM EDT documented as of this encounter Care Teams Records Supervisor Relationship Specialty Start Date End Date Name, MD Balta [address] [place] [phone] PCP - General Internal Medicine [facility] documented as of this encounter
--- OUTSIDE RECORDS SUMMARY | 2024-10-08 18:17 | XMS_ITS | Continuity of Care Document ---
Author Organization [facility] Address [address] [place] [address] Phone Care Team Providers Care Senior Insight Manager Name Role Phone MD LEYLA Schreiber, [...] Provider Providers Copied on Encounter [facility], [address], [place], [place], [id number], [place] tel:[phone] [facility] blurry vision (chief complaint) Combined forms of age-related cataract, bilateralDry eye syndrome of bilateral lacrimal glandsOpen angle with borderline findings, high risk, bilateral MD Julia Kitchen. [address], [place], [place], [id number] , [place]. tel: [phone] Referring Provider: Del Camp MD, [facility] [address] , [place], [address]. tel:[phone] Family History Family Member Type Diagnosis Age At Onset No Information Payers Payer name Insurance type Covered constitution party ID randy goff(s) [employer] CI [id number] Social History Type Description Quantity Date Captured [...]
--- OUTSIDE RECORDS SUMMARY | 2024-10-08 18:17 | XMS_ITS | Clinical Summary ---
Author Organization [employer] Address [address] [facility] [address] [place] [address] Care Team Providers Care Retail Service Specialist Name Role Phone Name, Balta MAYER Primary Care Provider [phone] Allergies Active Allergy Reactions Criticality Noted Date [...] mg by mouth at bedtime. 023 Active cholecalciferol (Vitamin D-3) 25 MCG tablet [...] :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) ([facility]) TEST BLOOD SUGAR TWICE DAILY DIRECTED 100 each 5 024 Active FREESTYLE LITE test stripIndication s: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) ([facility]) TEST BLOOD SUGAR TWICE DAILY DIRECTED [...] mouth 2 times daily. 60 capsule 025 Active cyanocobalamin (Vitamin B-12) 1000 MCG/ML injection INJECT 1 ML INTRAMUSCULARLY EVERY MONTH DIRECTED 1 mL 025 Active lactulose (Chronulac) 10 GM/15ML solution Take 15 mL (10 g) by mouth in the morning. 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 (daughter) Choking 01/05/2024 Cough 01/05/2024 Hospital discharge follow-up 01/05/2024 Lymphedema 03/29/2023 Pneumonia 03/29/2023 Preop cardiovascular exam 03/29/2023 Renal insufficiency 03/29/2023 Urinary urgency 03/29/2023 Atrial fibrillation 11/17/2022 History of arthroplasty of right knee 11/17/2022 Varicose veins of right lower extremity with inf lammation 11/17/2022 Type 2 diabetes mellitus with obesity ([facility]/HCC) 08/31/2022 Lentiginosis 10/13/2018 JOVANNI (obstructive sleep apnea) 10/02/2018 Overview (09/19/2024): Not using CPAP Chronic diastolic heart failure 05/25/2018 Overview (09/21/2023): [address] [phone] CARDIOLOGY NAME: SAMMIE FRANCOIS 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: [facility] UNIT #: [id number] PATIENT LOCATION: EKG REFERRING PHYSICIAN: ANIYA BERNARD MD DATE OF : 41 PCP: ANIYA BERNARD MD SEX: Female DATE: 04/20/18 CARD ECHO 2D M MODE W DOPPLER COLOR [phone] SYMPTOMS,HX?: I10 ESSENTIAL HTN; R60.0 LOCALIZED EDEMA Transthoracic Echocardiogram Patient (Last, First, Middle): SAMMIE FRANCOIS E Gender: Female Date of : 1945 Age: 72 Procedure Date: 04/20/2018 Procedure Type: Transthoracic Echocardiogram Location: OP Height: 157.48 cm Weight: 81.65 kg BSA: 1.83 m2 Heart Rate: bpm BP: 144 / 78 mmHg Cross Tie Turner: Referring MD: ANIYA BERNARD MD Symptoms: I10 [...] of Final JANI IYER MD Report #: [id number] Status: Signed Dict: 04/20/18/ Trans: /SUBRAH DATE [...] Encounters Date Type Department Care Team Description 10/08/[address] [address] Balta Jeffrey MD Durable Medical Equipment 10/08/[address] [address] Balta Jeffrey MD Appointment Request; Call Back Request 09/20/[address] [address] Balta Jeffrey MD 09/19/2024 2:15 PM EDT Office Visit [address] [address] Balta Jeffrey MD Stage 3 chronic kidney disease, unspecified whether stage 3a or 3b CKD (CMS/HCC) (Primary Dx); Hyperkalemia; Chronic diastolic heart failure (CMS/HCC); Type 2 diabetes mellitus with obesity ([facility]) ([facility]); Chronic constipation; Cobalamin deficiency; Encounter for immunization 09/19/2024 Refill [facility] [address] [place] [address] Balta Jeffrey MD 09/07/[address] [address] Balta Jeffrey MD Durable Medical Equipment 09/03/2024 9:00 AM EST Office Visit [address] [address] Jaymie Adams NP MARIA R (acute kidney injury) ([facility]) (Primary Dx); Esophagitis; Type 2 diabetes mellitus with obesity ([facility]) ([facility]); 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 ([facility]) 08/24/[address] [address] Balta Jeffrey MD Lab Orders 08/23/[address] [address] Kirsty Garcia MA Chart Prep 08/17/[address] [address] Balta Jeffrey MD Appointment Request 08/16/[address] [address] Balta Jeffrey MD Call Back Request 08/16/2024 Telephone [facility] [address] [place] [address] Balta Jeffrey MD Chart Prep 08/10/2024 Telephone [facility] [address] [place] [address] Caity Rain MD 08/10/[address] [address] Balta Jeffrey MD 08/10/2024 Orders Only [address] [address] Balta Jeffrey MD 08/06/2024 Patient Outreach [address] [address] Balta Jeffrey MD Transition Of Care (Tcm) (HDF- scheduled ) 08/06/2024 Telephone [facility] [address] [place] [address] Balta Jeffrey MD ER Follow-up 07/29/2024 Refill [facility] [address] [place], [place] [phone] Balta Jeffrey MD Vitamin D deficiency 07/27/2024 Telephone [facility] [address] [place] [address] Balta Jeffrey MD FYI 07/26/2024 Telephone [facility] [address] [place] [address] Flores Cabrera, JERROD 07/24/2024 Orders Only [facility] External Provider, [facility] 07/20/2024 Telephone [facility] [address] [place] [address] Balta Jeffrey MD Durable Medical Equipment 07/20/2024 Community Care Management [facility] [address] [place] [address] [employer] [facility] PhysicianMD 07/16/2024 Refill [facility] [address] [place] [address] Balta Jeffrey MD from Last 3 Months Immunizations Name Administration [...] Description 10/22/2024 1:00 PM EDT Clinical Support [facility] [address] [place] [address] 12/17/2024 1:30 PM EDT Office Visit [facility] [address] [place], [place] [phone] Harry, Esther, OD [address] [place] [address] 01/21/2025 10:00 AM EDT Office Visit [facility] [address] [place] [address] Name, MD Balta [address] [place], [place] [phone] Health Maintenance Due Date Last Done Comments Diabetes: Foot Exam 11/11/1953 Eye Exam 11/11/1953 Zoster Vaccines (2 of 3) 09/12/2017 07/18/2017 RSV Patients and Patients Aged 60 years or older (1 - 1-dose 75+ series) 11/11/2018 COVID-19 Vaccine ( season) 2024 08/13/2021, 09/19/2020, 08/22/2020 Depression Screening 09/19/2024 09/20/2023, 09/20/19 24 SDOH Screening 09/19/2024 09/20/2023 Lipid Panel 12/25/2024 12/26/2023, 09/08, 08/12/2020 Alcohol/Substance Use Screening 02/23/2025 02/24/2024 Diabetes: [...] Procedure Name Priority Date/Time Associated Diagnosis Comments MAGNESIUM Routine 09/19/2024 4:08 PM EDT Chronic constipation BASIC METABOLIC PANEL Routine 09/19/2024 4:08 PM EDT Stage 3 chronic kidney disease, unspecified whether stage 3a or 3b CKD (CMS/HCC) Hyperkalemia Chronic diastolic heart failure (CMS/HCC) POCT GLUCOSE Routine 09/19/2024 2:46 PM EDT [...] TO CULTURE Routine 07/24/2024 5:15 PM EST LIPID PANEL, STANDARD Routine 12/26/2023 1:22 PM EDT Hypertension, unspecified type from Last 3 Months or Most Recently Relevant to Health Maintenance Results * Magnesium (09/19/2024 4:08 PM EDT) Only the most recent of2 resultswithin the time period is included. Pathologist [facility] Magnesium 2.6 1.6 - 2.6 mg/dL [facility] Blood Venous blood specimen / Unknown 09/19/2024 4:08 PM EDT 09/19/2024 6:18 PM EDT us Balta Jeffrey MD LAB BLOOD ORDERABLES Final Resul t Performing Organization Address [facility] de Phone Number [facility] [address] [place] [phone] * (ABNORMAL) Basic Metabolic Panel (09/19/2024 4:08 PM EDT) Only the most recent of5 resultswithin the time period is included. Pathologist [facility] Sodium 142 135 - 145 mmol/L [facility] Potassium 4.8 3.3 - 5.1 mmol/L [facility] Chloride 108 96 - 108 mmol/L [facility] Carbon Dioxide 26 22 - 29 mmol/L [facility] Anion Gap 13 12 - 20 [facility] Urea Nitrogen (BUN) 20(H) 9 - 16 mg/dL [facility] Creatinine, Serum 1.38 0.5 - 1.4 mg/dL [facility] Estimated Glomerular Filt Rate 37 [facility] Comment:Chronic Kidney Disea se: Estimated GFR < 60 mL/min/[id number] Kidney Disease: Estimated GFR < 15 mL/min/1.73m2 Glucose 123(H) 60 - 115 mg/dL [facility] Calcium 10.1 8.4 - 10.2 mg/dL [facility] Blood Venous blood specimen / Unknown 09/19/2024 4:08 PM EDT 09/19/2024 6:18 PM EDT us Balta Jeffrey MD LAB BLOOD ORDERABLES Final Resul t Performing Organization Address [facility] Co de Phone Number [facility] [address] [place] [phone] * POCT Glucose (09/19/2024 2:46 PM EDT) [...] Media Lot # [id number] Lot# Expiration Date 10,026 Blood 09/03/2024 9:15 AM EST Jaymie Adams NP POINT OF CARE TEST ENTER/EDIT OR DERABLES Final Result * US RENAL BI (08/12/2024 12:35 PM EST) Anatomical Region Laterality Modality Abdomen Ultrasound 08/12/2024 12:3 5 PM EST Narrative 08/12/2024 12:36 PM EST ? [facility] ?[address] ?[place] [address] ? Ultrasound Report ? Signed ? Patient: Sammie Francois ?MR#: MM ?? [id number] ? : 1945 ?Acct:[id number] ? Age/Sex: 78 / F ?ADM Date: 08/10/ ? Loc: HO.IMC ?485-1 ? Attending Dr: Ernesto Morgan DO ? Ordering Physician: Ernesto Morgan DO ?? Date of Service: 08/12/24 ?? Procedure(s): US renal BI ?? Accession Number(s): [id number] ? cc: Name,Balta MAYER; Ernesto Morgan DO [...] DD/ 1235 ? TD/TT: 08/12/24 1235 ? Family Consultant: ? Procedure Note Gisselle, Brendan - 08/12/[address] [address] Ultrasound Report Signed Patient: Sammie Francois EMR#: [id number] : 4Acct:[id number] Age/Sex: 78 / FADM Date: 08/10/24 Loc: [facility] 485-[address]: Ernesto Morgan DO Ordering Physician: Ernesto Morgan DO Date of Service: 08/12/24 Procedure(s): US renal BI Accession Number(s): [id number] cc: Name,Balta MAYER; Ernesto Morgan DO CLINICAL [...] 08/12/24 1236 DD/ 1235 TD/TT: 08/12/24 1235 Family Consultant: [facility] External Provider IMG US PROCEDURES Final Result * FL Esophagus Barium Swallow w/Air (07/30/2024 7:00 AM EST) Anatomical Region Laterality Modality Head, Neck Radiographic Melissa ging 07/30/2024 7:00 AM EST Narrative 07/31/2024 9:06 AM EST ? [facility] ?[address] ?[place] [address] ? Fluoroscopy Report ? Signed ? Patient: Fischer Mike,Jayne ?MR#: MM ?? [id number] ? : 1945 ?Acct:[id number] ? Age/Sex: 78 / F ?ADM Date: 07/24/24 ? Loc: HO.S3 ?387-1 ? Attending Dr: Renan Melton MD ? Ordering Physician: Renan Melton MD ?? Date of Service: 07/30/24 ?? Procedure(s): FL barium swallow with air ?? Accession Number(s): [id number] ? cc: Renan Melton MD; Name,Balta MAYER [...] ??07/31/2024 09:04 AM EST RP ?? Workstation: [id number] ? Dictated By: ?Gabriel Ribeiro ? Signed By: ?<Electronically signed by Gabriel Ribeiro in OV> ? 07/31/24 0904 ?<Electronically signed by Troy Acuna MD in OV> ? 07/31/24 0906 ? DD/ 0700 ? TD/TT: 07/30/24 1110 ? Family Consultant: ? Procedure Note Brendan Pitts - 07/31/[address] [address] Fluoroscopy Report Signed Patient: Sammie Francois EMR#: [id number] : 4Acct:[id number] Age/Sex: 78 / FADM Date: 07/24/24 Loc: HO.S3 387-[address]: Renan Melton MD Ordering Physician: Renan Melton MD Date of Service: 07/30/24 Procedure(s): FL barium swallow with air Accession Number(s): [id number] cc: Renan Melton MD; Name,Balta MAYER EXAMINATION: [...] 07/31/24 0906 DD/ 0700 TD/TT: 07/30/24 1110 Family Consultant: us [facility] Exter nal Provider IMG FLUOROSCOPY PROCEDURES Edited Result - Final * Lactic Acid (07/24/2024 9:08 PM EST) Lactic Acid 1.0 0.5 - 2.0 mmol/L [facility] 07/24/2024 9:08 PM EST 07/24/2024 9:17 PM EST Generic External Data Provider LAB BLOOD ORDERAB LES Final Result [facility] [address] [place] [address] [phone] * CT Abdomen Pelvis w/o Contrast (07/24/2024 9:06 PM EST) Anatomical Region Laterality Modality Body, Pelvis, Abdomen Computed T omography 07/24/2024 9:06 PM EST Narrative 07/24/2024 9:08 PM EST ? [facility] ?[address] ?[place] [address] ? CT Scan Report ? Signed ? Patient: Amado Mike,Sammie Chin ?MR#: MM ?? [id number] ? : 1945 ?Acct:[id number] ? Age/Sex: 78 / F ?ADM Date: 01/14/25 ? Loc: HO.ED ? Attending Dr: ? Ordering Physician: Vida Regalado CNP ?? Date of Service: 07/24/24 ?? Procedure(s): CT abdomen pelvis wo IV con ?? Accession Number(s): [id number] ? cc: Vida Regalado CNP; [facility] ? Report Number: ?? [id number]: Total DLP = ??680.00 mGy-cm ? CLINICAL [...] ? DD/ 05 ? TD/TT: 07/24/242105 ? Family Consultant: ? Procedure Note Brendan Pitts - 07/24/[address] [address] Scan Report Signed Patient: Sammie Francois EMR#: [id number] : 4Acct:[id number] Age/Sex: 78 / FADM Date: 07/24/24 Loc: HO.ED Attending Dr: Ordering Physician: Vida Regalado CNP Date of Service: 07/24/24 Procedure(s): CT abdomen pelvis wo IV con Accession Number(s): [id number] cc: Vida Regalado CNP; [facility] Report Number: [id number]: Total DLP = 680.00 mGy-cm CLINICAL HISTORY: [...] in OV> 07/24/242106 DD/ 05 TD/TT: 07/24/242105 Family Consultant: [facility] External Provider IMG CT PROCEDURES Final Result * Glucose, Whole Blood (07/24/2024 8:59 PM EST) Glucose, Whole Blood 70 60 - 115 mg/dL [facility] Comment:METER #: [id number] 07/24/2024 8:59 PM EST 07/24/2024 9:02 PM EST Generic External Data Provider LAB BLOOD ORDERAB LES Final Result Performing Organization Address [facility] Co de Phone Number [facility] [address] [place] [phone] * SARS-CoV-2 RNA, Influenza A/B, and RSV RNA, Ql NAAT (07/24/2024 7:20 PM EST) Pathologist [facility] Influenza A PCR NEGATIVE Negative [facility] Influenza B PCR NEGATIVE Negative [facility] Resp Syncy Virus RNA Qual PCR NEGATIVE Negative [facility] SARS COV2 PCR NEGATIVE Negative [facility] Comment:All test results mus t be [...] use by authorized laboratories.Testing performed on the [email or web address] GeneXpert utilizingreal-time RT-PCR.All SARS CoV2 and positive influenza A/B results arereported to [facility]. 07/24/2024 7:20 PM EST 07/24/2024 7:22 PM EST Generic External Data Provider LAB MICROBIOLOGY - GENERAL ORDERABLES Final Result Performing Organization Address [facility] Co de Phone Number [facility] [address] [place] [phone] * (ABNORMAL) CBC auto differential (07/24/2024 7:20 PM EST) White Blood Count 6.5 4.8 - 10.8 X10*3/uL [facility] Red Blood Count 4.09(L) 4.20 - 5.50 X10*6/uL [facility] Hemoglobin 11.3(L) 12.0 - 16.0 g/dl [facility] Hematocrit 34.5(L) 37.0 - 47.0 % [facility] Mean Corpuscular Volume 84.4 80.0 - 98.0 fL [facility] Mean Corpuscular Hemoglobin 27.6 27.0 - 33.0 pg [facility] Mean Corpuscular HGB Conc 32.8 31.0 - 35.0 g/dl [facility] Red Cell Distribution Width 16.1(H) 11.0 - 16.0 % [facility] Platelet Count 210 160 - 400 X10*3/uL [facility] Mean Platelet Volume 10.6 9.4 - 12.3 fL [facility] Neutrophils Percent Auto 72.3 45 - 73 % [facility] Imm Gran Pct Auto 0.6(H) 0.0 - 0.4 % [facility] Lymphocytes Percent Auto 19.9(L) 20 - 40 % [facility] Monocytes Percent Auto 5.4 2 - 11 % [facility] Eosinophils Percent Auto 1.5 0 - 4 % [facility] Basophils Percent Auto 0.3 0 - 2 % [facility] NRBC Pct Auto 0.0 0.0 - 0.2 /100WBC [facility] Neutrophils Absolute Auto 4.7 2.0 - 8.3 x10*3/uL [facility] Imm Gran Abs Auto 0.04(H) 0.00 - 0.03 X10*3/uL [facility] Lymphocytes Absolute Auto 1.3 1.2 - 4.9 X10*3/uL [facility] Monocytes Absolute Auto 0.4 0.1 - 1.2 X10*3/uL [facility] Eosinophils Absolute Auto 0.1 0.0 - 0.4 X10*3/uL [facility] Basophils Absolute Auto 0.0 0.0 - 0.2 X10*3/uL [facility] NRBC Abs Auto 0.000 0.0 - 0.012 X10*3/uL [facility] 07/24/2024 7:20 PM EST 07/24/2024 7:22 PM EST us Generic External Data Provider LAB BLOOD ORDERAB LES Final Result Performing Organization Address [facility]/ZIP Co de Phone Number [facility] [address] [place] [phone] [phone] * Lipase (07/24/2024 7:20 PM EST) Lipase 38 8 - 78 U/L [facility] 07/24/2024 7:20 PM EST 07/24/2024 7:22 PM EST Generic External Data Provider LAB BLOOD ORDERAB LES Final Result Performing Organization Address [facility] Co de Phone Number [facility] [address] [place] [address] [phone] * (ABNORMAL) Comprehensive Metabolic Panel (07/24/2024 7:20 PM EST) Sodium 139 135 - 145 mmol/L [facility] Potassium 6.3(HH) 3.3 - 5.1 mmol/L [facility] Comment:Critical value for t est(s): POTS Results called to and readback by: ALONZO Person calling:SUREKHALuci Date: 07/24/24 Time:1952 Chloride 110(H) 96 - 108 mmol/L [facility] Carbon Dioxide 25 22 - 29 mmol/L [facility] Anion Gap 10(L) 12 - 20 [facility] Urea Nitrogen (BUN) 51(H) 9 - 16 mg/dL [facility] Creatinine, Serum 2.29(H) 0.5 - 1.4 mg/dL [facility] Creatinine Clr Calc Pharmacy 19.0 [facility] Comment:Provided height and weight: 152.4 cm,85.4 kg.eGFR (calculated from the MDRD study equation) and eCrCl(calculated from the Cockcroft-Gault equation) are based ondifferent parameters and may not yield comparable results.If eCrCl result is absurd, please check patient'sheight/weight. Estimated Glomerular Filt Rate 21 [facility] Comment:Chronic Kidney Disea se: Estimated GFR < 60 mL/min/1.39q6Jikdbc Kidney Disease: Estimated GFR < 15 mL/min/1.73m2 Glucose 97 60 - 115 mg/dL [facility] Calcium 9.8 8.4 - 10.2 mg/dL [facility] Bilirubin, Total 0.3 0.0 - 1.0 mg/dL [facility] Aspartate Amino Transferase 30 5 - 31 U/L [facility] Alanine Aminotransferase 30 0 - 31 U/L [facility] Total Protein 7.6 6.5 - 8.0 g/dL [facility] Albumin Level 4.1 3.5 - 5.0 g/dL [facility] Alkaline Phosphatase 193(H) 39 - 117 U/L [facility] 07/24/2024 7:20 PM EST 07/24/2024 7:22 PM EST us Generic External Data Provider LAB BLOOD ORDERAB LES Final Result [facility] [address] [place] [phone] * (ABNORMAL) Urinalysis, Complete, with Reflex to Culture (07/24/2024 5:15 PM EST) Color Urine Yellow [facility] Appearance Urine Clear [facility] PH 7.0 5.0 - 9.0 [facility] Glucose Urine UA 250(A) Negative mg/dL [facility] Urine Blood Negative Negative [facility] Specific [place] - Urine <=1.005 1.005 - 1.025 [facility] Urine Protein Negative Neg-Trace mg/dL [facility] Urine Ketones Negative Negative mg/dL [facility] Nitrite Urine Negative Negative [facility] Leukocyte Esterase Urine Moderate (2+)(A) Negative [facility] RBC Urine 3-5(A) 0 - 2 /HPF [facility] Urine WBC 11-20(A) 0 - 5 /HPF [facility] Urine Squamous Epithelial Cell 0-2 0 - 2 /HPF [facility] Urine Bacteria 4+ None Seen [facility] Hyaline Casts, Urine 3-5 0 - 2 /LPF [facility] 07/24/2024 5:15 PM EST 07/24/2024 5:19 PM EST Narrative [facility] - 07/24/2024 5:50 PM EST Urine, Clean Catch us Generic External Data Provider LAB URINE ORDERAB LES Final Result Performing Organization Address City/[facility]/ZIP Co de Phone Number [facility] [address] [place], [place] [phone] * Lipid Panel, Standard (12/26/2023 1:22 PM EDT) Triglycerides 52 <150 mg/dL [facility] Comment:Desirable Triglyceri de: less than 150 mg/dLBorderline High Triglyceride 150-199 mg/dLHigh Triglyceride: 200-499 mg/dLVery High Triglyceride: greater than or equal to 5OO mg/dL Cholesterol 169 <200 mg/dL [facility] Comment:Desirable Cholestero l: less than 200 mg/dLBorderline High Cholesterol: 200-239 mg/dLHigh Cholesterol: greater than 239 mg/dL LDL Cholesterol Calculated 92 <100 mg/dL [facility] Comment:Desirable LDL: less than 100 mg/dLNear Optimal/Above Optimal LDL: 110- 129 mg/dLBorderline High LDL: 130-159 mg/dLHigh LDL: 160-189 mg/dLVery High LDL: greater than or equal to 190 mg/dL HDL Cholesterol 67 >40 mg/dL [facility] Comment:Desirable HDL: great er than 40 mg/dL Note: This HDL assay may give artificially low results in patients with liver disease. Blood Venous blood specimen / Unknown 12/26/2023 1:22 PM EDT 12/26/2023 3:56 PM EDT us Balta Jeffrey MD LAB BLOOD ORDERABLES Final Resul t [facility] [address] [place] [phone] from Last 3 Months or Most Recently Relevant to Health Maintenance Insurance [facility] Care Teams Retail Service Specialist Relationship Specialty Start Date End Date Name, MD Balta [address] [place] [phone] PCP - General [facility]
--- OUTSIDE RECORDS SUMMARY | 2024-10-08 18:17 | XMS_ITS | Encounter Summary ---
Author Organization [employer] Address [address] [facility] 7t [place] [address] Care Team Providers Care Truck Striker Name Role Phone Name, Balta MAYER Primary Care Provider [phone] Reason for Visit * Reason Onset Date Comments Appointment Request 10/08/2024 Call Back Request 10/08/2024 Encounter Details Date Type Department Care Team ([facility] Contact Info) Description 10/08/2024 Telephone [facility] [address] [place] [address] Name, MD Balta [address] [place] [address] Appointment Request; Call Back Request Social History Tobacco Use [...] encounter Miscellaneous Notes * Telephone Encounter - Adrian Lara - 10/08/2024 12:56 PM EDT TC from daughter Returning call . Reports pt was DX with A Urinary infection. Reports a Physician from [facility] came to visit did labs and urinary order. Reports was prescribed Antibiotics by them but still wants to see Provider to discuss other things. Requested a portable commode ( separate message sent to pa team ) * Telephone Encounter - Flores Cabrera RN - 10/08/2024 10:34 AM EDT TC placed to pt via S valve inserter (ID#[id number]) regarding request for call back regarding appointment request. No answer, LVM to call office back and ask to speak to the [place] team nurses. * Telephone Encounter - Luther Pardo - 10/08/2024 8:36 AM EDT Tc from pt requesting a call back pt daughter would like for pt to be seen. Contact pt at [phone] documented in this encounter Plan of Treatment Upcoming Encounters Date Type Department Care Team (Late st Contact Info) Description 10/22/2024 1:00 PM EDT Clinical Support [facility] [address] [place] [address] 12/17/2024 1:30 PM EDT Office Visit [facility] [address] [place], [place] [phone] Harry, Esther, OD [address] [place] [address] 01/21/2025 10:00 AM EDT Office Visit [facility] [address] [place] [address] NameBalta MD [address] [place] [address] documented as of this encounter Visit Diagnoses Not on filedocumented in this encounter Additional Health Concerns Assessment Noted Time PHQ-9 Depression Total Score: 0 09/20/19 24 1:15 PM EDT documented as of this encounter Care Teams Truck Striker Relationship Specialty Start Date End Date Name, MD Balta [address] [place] [address] [id number] PCP - General Internal Medicine 06[facility]22 [facility] documented as of this encounter
--- OUTSIDE RECORDS SUMMARY | 2024-10-08 18:17 | XMS_ITS | Encounter Summary ---
Author Organization [facility] Address [address] [place] [address] 7t [place] [address] Care Team Providers Care Engineer Chief Name Role Phone Name, Balta MAYER Primary Care Provider [phone] Encounter Details Date Type Department Care Team (Late st Contact Info) Description 06/14/2022 Orders Only [facility] MEDICINE [address] [place] [address] Audrey Mcginnis, JERROD Social History Tobacco Use [...] Description 10/22/2024 1:00 PM EDT Clinical Support [address] [address] 12/17/2024 1:30 PM EDT Office Visit [facility] OPTOMET[facility] [address] [place] [phone] Harry, Esther, OD [address] [place] [address] 01/21/2025 10:00 AM EDT Office Visit [facility] MEDICINE [address] [place] [address] Name, MD Balta [address] [place] [address] documented as of this encounter Visit Diagnoses Not on filedocumented in this encounter Care Teams Engineer Chief Relationship Specialty Start Date End Date Name, MD Balta [address] [place] [address] PCP - General Internal Medicine 06/14/22 [facility] 08/05/24 documented as of this encounter
--- OUTSIDE RECORDS SUMMARY | 2024-10-08 18:17 | XMS_ITS | Encounter Summary ---
Author Organization [employer] Address [address] [facility] 7t [place] [address] Care Team Providers Care Senior Supplier Quality Engineer Name Role Phone Name, Balta MAYER Primary Care Provider [phone] Reason for Visit * Reason Onset Date Comments Durable Medical Equipment 10/08/2024 Encounter Details Date Type Department Care Team (Late st Contact Info) Description 10/08/2024 Telephone [facility]INE [address] [place] [address] Name, MD Balta [address] [place] [id number] Durable Medical Equipment Social History Tobacco Use [...] Telephone Encounter - Adrian Lara - 10/08/2024 12:54 PM EDT TC from pt';s daughter requesting a portable [employer] . documented in this encounter Plan of Treatment Upcoming Encounters Date Type Department Care Team (Late st Contact Info) Description 10/22/2024 1:00 PM EDT Clinical Support [facility] MEDICINE [address] [place] [address] 12/17/2024 1:30 PM EDT Office Visit [facility] OPTOMETRY [address] [place] [address] Esther Mcdonald, OD [address] [place] [address] 01/21/2025 10:00 AM EDT Office Visit [facility] MEDICINE [address] [place] [address] Name, MD Balta [address] [place] [address] documented as of this encounter Visit Diagnoses Not on filedocumented in this encounter Additional Health Concerns Assessment Noted Time PHQ-9 Depression Total Score: 0 09/20/19 24 1:15 PM EDT documented as of this encounter Care Teams Senior Supplier Quality Engineer Relationship Specialty Start Date End Date Name, MD Balta [address] [facility] [place] [address] PCP - General Internal Medicine 06/14/22 [facility] 08/05/24 documented as of this encounter
--- OUTSIDE RECORDS SUMMARY | 2024-10-08 18:17 | XMS_ITS | Encounter Summary ---
Author Organization [employer] Address [address] [facility] [address] 7[address] [place] [address] Care Team Providers Care Infantry Officer Name Role Phone Name, Balta MAYER Primary Care Provider [phone] Encounter Details Date Type Department Care Team (Late st Contact Info) Description 04/20/2023 Abstract [facility] [address] [place] [address] Name, MD Balta [address] [place] [address] Social History Tobacco Use Types Packs/Day Years [...] Description 10/22/2024 1:00 PM EDT Clinical Support [facility] [address] [place] [address] 12/17/2024 1:30 PM EDT Office Visit [facility] [address] [place] [address] Harry, Esther, OD [address] [place] [address] 01/21/2025 10:00 AM EDT Office Visit [facility] [address] [place] [address] NameBalta MD [address] [place] [address] documented as of this encounter Visit Diagnoses Not on filedocumented in this encounter Additional Health Concerns Assessment Noted Time PHQ-9 Depression Total Score: 4 08/31/19 23 10:26 AM EST documented as of this encounter Care Teams Infantry Officer Relationship Specialty Start Date End Date NameBalta MD [address] [place] [id number] PCP - General Internal Medicine 06/14/22 [facility] 08/05/24 documented as of this encounter
--- OUTSIDE RECORDS SUMMARY | 2024-10-08 18:17 | XMS_ITS | Encounter Summary ---
Author Organization [employer] Address [address] [facility] 7t [place] [address] Care Team Providers Care Generator Operator Name Role Phone Name, Balta MAYER Primary Care Provider [phone] Reason for Visit * Reason Onset Date Comments ER Follow-up 08/06/2024 Encounter Details Date Type Department Care Team ([facility] Contact Info) Description 08/06/2024 Telephone [facility] [address] [place] [address] Name, MD Balta [address] [place] [address] ER Follow-up Social History Tobacco Use Types [...] from pt requesting a HDF appt. Hospital: [facility] Date of admission: 07/24/24 Discharge date: 08/02/24 Diagnosed: Acute Dysphagia *Send message to [facility] Clinical Care Coordinators documented in this encounter Plan of Treatment Upcoming Encounters Date Type Department Care Team (Late st Contact Info) Description 10/22/2024 1:00 PM EDT Clinical Support [facility] [address] [place] [address] 12/17/2024 1:30 PM EDT Office Visit [facility] [address] [place] [address] Esther Mcdonald, OD [address] [place] [address] 01/21/2025 10:00 AM EDT Office Visit [facility] [address] [place] [address] Name, MD Balta [address] [place] [address] documented as of this encounter Visit Diagnoses Not on filedocumented in this encounter Additional Health Concerns Assessment Noted Time PHQ-9 Depression Total Score: 0 09/20/19 24 1:15 PM EDT documented as of this encounter Care Teams Generator Operator Relationship Specialty Start Date End Date Name, MD Balta [address] [place] [address] PCP - General Internal Medicine 06/14/22 [facility] 08/05/24 documented as of this encounter
--- OUTSIDE RECORDS SUMMARY | 2024-10-08 18:17 | XMS_ITS | Encounter Summary ---
Author Organization [employer] Address [address] [facility] 7t [place] [address] Care Team Providers Care Natural Gas Inspector Name Role Phone Name, Balta MAYER Primary Care Provider [phone] Reason for Visit * Reason Onset Date Comments Call Back Request 08/16/2024 Encounter Details Date Type Department Care Team ([facility] Contact Info) Description 08/16/[address] [facility] [address] [place] [address] Name, MD Balta [address] [place] [address] Call Back Request Social History Tobacco Use [...] the B12 injection. Please contact Daughter at [phone]. (Kyrgyz Speaker) documented in this encounter Plan of Treatment Upcoming Encounters Date Type Department Care Team ([facility] st Contact Info) Description 10/22/2024 1:00 PM EDT Clinical Support [facility] [address] [place] [address] 12/17/2024 1:30 PM EDT Office Visit [facility] [address] [place] [address] Harry, Esther, OD [address] [place] [address] 01/21/2025 10:00 AM EDT Office Visit [facility] [address] [place] [address] Name, MD Balta [address] [place] [address] documented as of this encounter Visit Diagnoses Not on filedocumented in this encounter Additional Health Concerns Assessment Noted Time PHQ-9 Depression Total Score: 0 09/20/19 24 1:15 PM EDT documented as of this encounter Care Teams Natural Gas Inspector Relationship Specialty Start Date End Date Name, MD Balta [address] [place] [address] PCP - General Internal Medicine 06/14/22 [facility] 08/05/24 documented as of this encounter
--- OUTSIDE RECORDS SUMMARY | 2024-10-08 18:17 | XMS_ITS | Data Portability ---
Author Organization [employer] Address [address] [place] [id number] Care Team Providers Care Project Administrative Assistant Name Role Phone NAME, JOSE Primary Care Provider [facility] OTHER Assessment Encounter Date Assessment Date Assessment LastModified by Organization Details LastModified Time 10/07/2024 10/07/2024 Mrs. Amado Mike was evaluated for confusion and urinary symptoms. On assessment she is afebrile, mildly bradycardic and hypertensive. Per stockroom supervisor assessment she is independently ambulatory with a steady gait without focal neurologic deficits. The patient did endorse flank pain but does not have CVA tenderness on exam. Her POC urinalysis appears consistent with UTI with positive leukocyte esterase, nitrites, and blood. Overall findings appears consistent with urinary tract infection. No signs of sepsis, and low clinical suspicion for ascending infection, or infected stone. BMP reveals Cr 1.29, no electrolyte derangements. Family does understand limited diagnostic ability in the home and understands we cannot assess for other etiologies of confusion including CVA, etc. They would prefer to keep her at home and assess her response to treatment. Will treat with 1L NS, IV ceftriaxone 1gm and Vantin PO prescription x 7 days. Will also send out urine culture to evaluate sensitivities. The patient otherwise appears safe to remain at home and family is satisfied with care plan as above. Reasons to seek further care discussed. I provided real -time medical direction via phone for this encounter, and was available for additional phone based assistance as needed. I have reviewed and agree with the Assessment and Plan as documented by the Health Educator. We discussed the diagnostic uncertainty of home visits and the risk associated with this. In this case the patient and I felt this to be an acceptable and reasonable amount of risk given the benefit of avoiding an ED visit. The patient given the opportunity to ask questions. Advised if develops CP/severe SOB/turning blue/uncontrolle d n/v/d or black/bloody emesis or stool/ AMS/ syncope/ hi fever unresponsive to APAP to call 911- verbalized understanding of instruction [email or web address] Not available 10/07/2024 14:13:08 10/08/2024 10/08/2024 I provided real -time medical direction via phone for this encounter, and was available for additional phone based assistance as needed. I have reviewed and agree with the Assessment and Plan as documented by the Health Educator. We discussed the diagnostic uncertainty of home visits and the risk associated with this.. The patient's family given the opportunity to ask questions, as the patient is too lethargic to converse. Advised with likely hypothermia, hypotension, bradycardia, worsening AMS with an obvious UTI not responsive to IV ceftriaxone and Vantin and an abnormal EKG, that the patient needs emergent workup in the hospital. The family is agreeable they are requesting she go to [facility]. EMS initiated by [facility] provider, I called report to bellows charger assemblerJaymie at [facility] ER [email or web address] Not available 10/08/2024 17:38:59 Plan of Treatment Reminders Order Date Submit Date Provider Last Modified By Organization Details Last Modified Time Details Appointments Urgent Care 2024 03:17P M Charlotte Cao MD Not available Not available Not available Lab glucose, fingersti ck, blood 2024 025 [email or web address] [facility], [address] [place] [address], [phone], 10/08/2024 15:20:09 urinalysi s, dipstick 2024 025 [facility] [address] [place] [address], [phone], 10/07/2024 19:19:04 BMP, serum or plasma 2024 025 [facility], [address] [place] [address], [phone], 10/07/2024 19:19:23 culture, urine 2024 025 CANDACE [facility] (Centralized Electronic Ordering - All Locations), Patient Can Go To The Location Of Their Choice, [id number] 10/08/2024 12:05:39 Referral None recorded. Procedures None recorded. Surgeries None recorded. Imaging electroca rdiogram 2024 025 [facility], [address] [place], [phone], 10/08/2024 15:22:14 Medication Orders sodium chloride 0.9 % intraveno us solution 2024 025 [email or web address] [id number], [address] [place] [address], [id number], 10/08/2024 15:21:50 cefpodoxi me 200 mg tablet 2024 025 CANDACE [id number], [address] [place] [address], [id number], 10/07/2024 14:03:27 ceftriaxo ne 1 gram solution for injection 2024 025 [email or web address], [address] [place], [address], 10/07/2024 14:11:56 sodium chloride 0.9 % intraveno us solution 2024 025 [email or web address], [address] [place] [address], [id number], 10/07/2024 14:12:07 Patient TargetsNo targets recorded. Patient InstructionsNo instructions recorded. Reason for Referral None Reported. Results Created Date Observation Date Name Description Value Unit Range Abnormal Flag Note LastModifiedBy Organization Detail LastModifiedTime 10/08/1910/07/2024 URINE CULTU RE,CO MPREH ENSIV E urine culture,comp rehensive Prelim inary report abnormal Not Available [facility] ([facility]) [address] [facility], [place], [address], 10/08/2024 14:05:59 10/08/19 25 10/08/2024 URINE CULTU RE,CO MPREH ENSIV E result 1 COMMEN T Micro biolo gical testi ng to rule out the prese nce of possi ble patho gens is in progr ess. Not Available [facility] ([facility]) [address] [facility], [place], [address], 10/08/2024 14:05:59 10/08/19 25 10/08/2024 URINE CULTU RE,CO MPREH ENSIV E result 2 Gram negati ve rods abnormal 200 Colon ies/m L . Not Available [facility] ([facility]) [address] [facility], [place], [address], 10/08/2024 14:05:59 10/09/19 25 10/08/2024 gluco se, finge rstic k, blood Blood Glucose: mg/dl 220 Not Available [facility] [address] [place] [address], [phone], 10/08/2024 15:18:52 10/09/19 25 10/08/2024 elect shabbir augr am No observ ation record ed. [email or web address] [facility] - [address], [phone], 10/08/2024 18:13:27 Result Notes None recorded. Procedures Surgical History None recorded. Imaging Results Imaging Date Name Status LastModified by Organization Details LastModified Time 10/08/2024 electrocardiogram completed [address] [facility] [address] [place] [address], [phone], 10/08/2024 18:13:27 Procedure Notes None recorded. Medical Equipment None Reported. Allergies Allergen ID Allergen Name Allergen Category Reaction Reaction Severity Criticality Documentation Date Start Date Code Code System Note Provider Name and Address Organization Details Recorded Time 59147 Product containin g penicilli n (product) medicatio n Not available Not available Not available 10/07/2024 09174 8001 SNOMED Not Available [employer] - production 11:09:12 Medications Name Sig Start Date Stop Date Status Note LastModified by Organization Details LastModified Time furosemide 40 mg tablet TAKE 1 TABLET BY MOUTH EVERY MORNING active Not Available Not Available No t Available atorvastatin 40 mg tablet TAKE 1 TABLET BY MOUTH AT BEDTIME active Not Available Not Available No t Available metformin 500 mg tablet TAKE 1/2 TABLET BY MOUTH TWICE DAILY IN THE MORNING AND EVENING WITH MEALS active Not Available Not Available N ot Available carvedilol 25 mg tablet TAKE 1 TABLET BY MOUTH TWICE DAILY IN THE MORNING AND IN THE EVENING active Not Available Not Available No t Available cetirizine 10 mg tablet TAKE 1 TABLET BY MOUTH EVERY MORNING active Not Available Not Available No t Available Stool Softener 100 mg capsule TAKE 1 CAPSULE BY MOUTH EVERY DAY active Not Available Not Available No t Available cefpodoxime 200 mg tablet Take 1 tablet twice a day by oral route for 7 days. 2024 active Not Available Not Available Not Avai lable omeprazole 40 mg capsule,alix yed release TAKE 1 CAPSULE BY MOUTH TWICE DAILY IN THE MORNING AND IN THE EVENING active Not Available Not Available No t Available spironolacto ne 25 mg tablet TAKE 1 TABLET BY MOUTH EVERY DAY active Not Available Not Available No t Available calcium 600 mg (as calcium carbonate 1,500 mg) tablet TAKE 1 TABLET BY MOUTH EVERY MORNING active Not Available Not Available No t Available amlodipine 10 mg tablet TAKE 1 TABLET BY MOUTH EVERY EVENING active Not Available Not Available No t Available cyanocobalam in (vit B-12) 1,000 mcg/mL injection solution INJECT 1 ML INTRAMUSCUL SHIRA EVERY MONTH active Not Available Not Available No t Available mirtazapine 15 mg tablet TAKE 1 AND 1/2 TABLETS BY MOUTH EVERY EVENING active Not Available Not Available No t Available oxybutynin chloride 5 mg tablet TAKE 1 TABLET BY MOUTH TWICE DAILY IN THE MORNING AND IN THE EVENING NEEDED active Not Available Not Available No t Available losartan 100 mg tablet TAKE 1 TABLET BY MOUTH EVERY MORNING active Not Available Not Available No t Available Alcohol Prep Pads USE DIRECTED TWICE DAILY active Not Available Not Available Not Available cholecalcife rol (vitamin D3) 25 mcg (1,000 unit) tablet TAKE 1 TABLET BY MOUTH EVERY MORNING active Not Available Not Available No t Available ferrous gluconate 324 mg (38 mg iron) tablet TAKE 1 TABLET BY MOUTH EVERY MORNING active Not Available Not Available No t Available FreeStyle Lite Strips USE DIRECTED TO TEST BLOOD SUGAR TWICE DAILY active Not Available Not Available No t Available TRUEplus Lancets 33 gauge USE DIRECTED TO TEST BLOOD SUGAR TWICE DAILY active Not Available Not Available No t Available Linzess 145 mcg capsule TAKE 1 CAPSULE BY MOUTH EVERY MORNING active Not Available Not Available No t Available Eliquis 5 mg tablet TAKE 1 TABLET BY MOUTH TWICE DAILY IN THE MORNING AND IN THE EVENING active Not Available Not Available No t Available Jardiance 10 mg tablet TAKE 1 TABLET BY MOUTH EVERY MORNING active Not Available Not Available No t Available Trulicity 1.5 mg/0.5 mL subcutaneous pen injector INJECT ONE PEN (=1.5MG) SUBCUTANEOU SLY ONCE A WEEK DIRECTED active Not Available Not Available No t Available Trulicity 0.75 mg/0.5 mL subcutaneous pen injector INJECT ONE PEN (=0.75MG) SUBCUTANEOU SLY ONCE A WEEK DIRECTED active Not Available Not Available No t Available Vitals Date Recorded Heart rate Respiratory rate Body temperature Oxygen saturation Oxygen saturation in Arterial blood by Pulse oximetry Systolic blood pressure Diastolic blood pressure Provider Name and Address Organization Details Last Updated DateTime 50 /min 14 /min 98.9 [degF] 97 % 97 % 134 mm[Hg] 76 mm[Hg] Not Available [place] [email or web address] 13:57:20 Date Recorded Respiratory rate Body height Body weight Oxygen saturation Oxygen saturation in Arterial blood by Pulse oximetry Heart rate Systolic blood pressure Diastolic blood pressure Provider Name and Address Organization Details Last Updated DateTime 14 /min 157.48 cm 04708.6 g 96 % 96 % 40 /min 109 mm[Hg] 63 mm[Hg] Not Available [employer] 15:17:36 Social History None recorded. Functional Status None recorded. Mental Status None recorded. Family History Nothing Reported. Medical History No medical history recorded. Gynecological HistoryNo gynecological history recorded. Obstetrics History GPAL:G 0 P 0 0 0 0 Past Encounters Encounter ID Performer Location Encounter Start Date Encounter Closed Date Diagnosis/Indication Diagnosis SNOMED-CT Code Diagnosis ICD10 Code Diagnosis Note [id number] ROSALIO MCARTHUR MD Main - [address] [phone] 10/07/2024 13:57:18 10/07/2024 14:53:52 Acute urinary tract infection 845348740 N39.0 [id number] Charlotte Cao MD Main - [address] [address] 10/08/2024 15:17:33 10/08/2024 17:39:14 Altered mental status 062600318 R41.82 posible urosepsis patient is borderline hypotensiv e, clammy,, she is not hypoglycem ic. EKG reveals sinus bradycardi a at a rate of 48/there is a SD visible but the EKG did not capture it, it does not appear to be prolonged. QRS is normal at 85 and QTc is also normal. There are T wave inversions in leads III V1 through V3 with ST flattening in leads II, aVF, V4 and V5-this is not normal but I do not have a baseline EKG to compare it to/explain ed to family Health Concerns Section Related Observation LastModified by Organization Detai ls LastModified Time None Recorded Concern Status LastModified by Organization Details LastModified Time None Recorded Advance Directives Directive None Recorded Payers Encounter Date Sequence Insurance Name Policy Number Policy Monzon Covered Member ID Monzon Member ID Guarantor Name 10/07/2024 1 [facility] - DOS ON OR AFTER 2022 - DUAL ELIGIBLE - RESIDENTIAL OPTIONS AND ONE CARE (MEDICARE REPLACEMENT/ADV ANTAGE - HMO) Victorina Camargoez [id number] Victorina Fischer Rashid 10/08/2024 1 [facility] - DOS ON OR AFTER 2022 - DUAL ELIGIBLE - RESIDENTIAL OPTIONS AND ONE CARE (MEDICARE REPLACEMENT/ADV ANTAGE - HMO) Victorina Fischer Rashid [id number] Victorina Mike Notes Date Note Type Note Provider Name and Address Organization Details Recorded Time 10/07/2024 text/html [facility] Nurse Triage Notes (Bryan Santiago): Reason For Request: daughter claims mother is acting strange and doesn't know what is happening, mother cannot explain. appetite is diminished. pt does not claim to have any pain. Patient Reports: Painful urination; Painful urination with or without fever; Inability to fully empty bladder Denies: Unable to void greater than 5 hours Erection that will not go away after 2 hours Fall or trauma that results in urinary incontinence in the setting of pain Fall or injury that results in incontinence in the absence of pain Lower back pain either unilateral or bilateral, unable to void, painful urination -hematuria Frequent and increased urination with flank pain Chief Complaints: Weakness PMH: Hypertension, Chronic Pain, Diabetes Mellitus Type 2 PMH Reviewed at 10/07/2024 - : Allergies Reviewed at 10/07/2024:09 Comments: Clay Maker verified the Pt.'s name//address and phone number. Education provided on the response time and the Pt. was advised to monitor reported s/s and seek emergency treatment if needed. CG reports the pt is feeling unwell - Acting strange. Confusion - Altered mental status - Pt resting on the couch - Weakness with decreased PO intake - Increased urinary frequency, urgency with burning -Able to move extremities and denies facial droop - Denies urinary odor - Denies back and bladder pain - Denies fever and headache - Reporting vague symptoms - Denies chest pain and SOB - Symptoms started yesterday - Denies taking over the counter medication - Wellness check requested. Health Educator Organization Information for José Miguel Romero [employer] Legal Name[facility] Address: [address] [place] [address], Surface Boss: Juan Wilson MD CLIA No.: [id number] Health Educator POC Test Results from José Miguel Romero Urine Dipstick (13:55:36) Urine leukocytes: 3+ ROSITA Urine nitrites: + NIT Urine urobilinogen: - URO Urine protein: 3+ PRO Urine pH: 5.0 pH Urine blood: 3+ BLO Urine specific gravity: 1.010 SG Urine ketones: - KET Urine bilirubin: - KELLI Urine glucose: - GLU epoc (14:07:10) pH: 7.34 pH units pCO2: 50.7 mmHg pO2: 40.5 mmHg Na: 143 mmol/L K: 4.6 mmol/L iCa: 1.28 mmol/L Cl: 111 mmol/L TCO2: 26.9 mEq/L Hct: 35 % Hb: 12.0 g/dL Glu: 139 mg/dL Lac: 1.61 mmol/L Cr: 1.29 mg/dL BUN: 21 mg/dL A mmol/L HCO3: 27.5 mmol/L .................... .................... .................... .................... .................... .................... .................... . Health Educator Note From José Miguel Romero: This visit is for an 78-year-old female with a history including but not limited to HTN, HLD, DM type II, chronic pain. Patient's daughter requested a visit to address two days of increased confusion. Patient endorses several days of dysuria and bilateral flank pain. Daughter states patient had three to four UTIs last year, most recently approximately two months ago, unsure what she was treated with. Daughter states patient drinks a lot of coffee but not a lot of water. Patient denies any chest pain, shortness of breath, headaches, fevers, nausea, vomiting, diarrhea. Allergy to penicillin, rash. Patient presents awake and alert, in no acute distress and speaking full sentences. Her vital signs are reasonably stable and she is afebrile. Nonfocal neurological exam. Normal gait, with walker at baseline. Lungs are clear throughout auscultation. Abdomen is soft, nontender, nondistended. No lower extremity edema. Urinalysis is indicative of infection, positive for leukocytes, nitrates, protein and blood. Urine culture and sensitivity will be sent to [facility]. POC labs are uploaded, creatinine 1.29, BUN 21. I treated this patient with normal saline 1 L IV and ceftriaxone 1 g IV. We discussed the diagnostic uncertainty of home visits and the risk associated with this. In this case, the patient and I felt this to be an acceptable and reasonable amount of risk given the benefit of avoiding an ED visit. I provided education on the importance of staying well hydrated, appropriate Tylenol dosing and limiting caffeine intake with the infection. I recommend they follow-up with the primary care office and present the patient to the emergency department for any new or worsening severe symptoms such as chest pain, shortness of breath, high fever, severe abdominal or flank pain, increased altered mental status. The patient interfamily were given the opportunity to ask questions and are agreeable to this plan. [facility] Lab Orders: urinalysis, dipstick: Performed BMP, serum or plasma: Performed culture, urine: Performed [facility] Medication Orders: ceftriaxone 1 gram solution for injection: Administered sodium chloride 0.9 % intravenous solution: Administered .................... .................... .................... .................... .................... .................... .................... . [facility] Consulted: Rosalio Mcarthur .................... .................... .................... .................... .................... .................... .................... . Disposition: Fulfilled ROSALIO MCARTHUR MD [address] [place] [address],[address], [place], [phone], [employer] 10/07/2024 14:53:49 10/08/2024 text/html [facility] Nurse Triage Notes (Sirisha Segovia): Reason For Request: Patient was seen in the past for uti, took meds, Today - - Patient has been lethargic for the last few days, not communicating and less active than usual.Denies: Unable to void greater than 5 hours Erection that will not go away after 2 hours Fall or trauma that results in urinary incontinence in the setting of pain Fall or injury that results in incontinence in the absence of pain Lower back pain either unilateral or bilateral, unable to void, painful urination -hematuria Painful urination Frequent and increased urination with flank pain Painful urination with or without fever Inability to fully empty bladder Chief Complaints: Urinary SymptomsPMH: Hypertension, Chronic Pain, Diabetes Mellitus Type 2PMH Reviewed at 10/08/2024:56Allergies Reviewed at 10/08/2024:56Comments: Clay Maker verified the name//address and phone number. Son calling for a few days > 4 days when she does not seem like herself. She has low energy, not as talkative as her baseline. She denies any currently UTI symptoms. She has presented this way in the past with no symptoms but positive for a UTI . She was seen on 10/07 but the son is concerned that she is declining . UC is not back yet, still pending result.Education provided on the response time and the Patient was advised to monitor reported s/s and seek emergency treatment if need Health Educator Organization Information for Elma Mensah Legal Name: [employer] Address: [address] [place] [address], Surface Boss: Morro Kwon MD CLIA No.: [id number] Health Educator POC Test Results from Elma Mensah EKG (15:22:55) EKG test performed. Attachments uploaded as part of this test result can be found under Documents section. Blood Glucose Measurement (15:22:57) Blood Glucose: 220 mg/dL .................... .................... .................... .................... .................... .................... .................... . Health Educator Note From Elma Mensah: SHELLEY makes pt contact. She is found seated in a recliner in the living room of a small and clean apartment where she lives w/ family. She makes eye contact w/ MIH and says hello. She is not in acute distress. She appears to be mildly pale; no ashen or jones color are noted. She is not tripoding, using accessory muscles to breathe, and no stridor or sonorous respirations are present. There is no facial droop or one-sided weakness observed, and she is not bleeding anywhere. Pt is Swedish-speaking only and family is present and on the phone to provide hx and translation. Family tells [facility] the pt was seen by [facility] yesterday and dx w/ a UTI, a culture was sent to the lab, and she was placed on oral abx while awaiting culture results. Since yesterday, pt has had one tablet of the oral abx, however, she seems to be declining in her mental status and is increasingly lethargic and slow to respond. Family also endorses episodes of confusion. Some of these s/s are consistent w/ her s/s from previous UTI when she was admitted to the hospital, but they seem to be more profound to the family. Son tells [facility] She just isn't herself! Pt offers no complaints to [facility]. She denies cp, sob, n/v/d, abd pain. She is intermittently somnolent during the visit and exam, often closing her eyes for several minutes. She is able to follow commands well. Daughter tells [facility] the swelling in her feet and LEs seems to be a little bit worse over the past couple days. [facility] obtains vital signs and pt is assessed. Rales are auscultated bilaterally in the bases of the lungs; uppers are clear and equal. Abdomen is soft and nontender, w/ no guarding, distension, or pulsating masses present. Bilateral LEs from the knees to the toes have non-pitting edema as well as both hands and all fingers. Pt's skin is cool to touch and after several attempts, oral and axillary temperature are unable to be obtained. Pt's torso is clammy to touch. Pt continues to be sleepy . [facility] contacts [facility] and discusses the above. Out of concern for urosepsis, [facility] and [facility] feel pt should be transported to the hospital for further evaluation and care. Family is amendable to the plan. [facility] orders FSBG, a 12-lead EKG, and 500mls NS fluid bolus. Finger stick and EKG are obtained. A 20ga IV is established in the L AC and 500mls NS are administered. [facility] calls 911 and pt is transported to [facility] by [facility]. [facility] is clear. Report completed by NISHA Mensah [id number]. [facility] Lab Orders: glucose, fingerstick, blood: Performed [facility] Medication Orders: sodium chloride 0.9 % intravenous solution: Administered .................... .................... .................... .................... .................... .................... .................... . [facility] Consulted: Charlotte Cao .................... .................... .................... .................... .................... .................... .................... . Disposition: Fulfilled SEGMD: above-patient seen by our service yesterday of note her vital signs yesterday were normal other than a pulse of 50. Patient was afebrile with a blood pressure 134/76, in no respiratory distress.. This is her baseline blood pressure per the family. She was found to have normal electrolytes a creatinine of 1.29 and a BUN of 21 and lactate of 1.61. Her urine dipstick was positive for leukocytes nitrates and blood consistent with a UTI. She was given ceftriaxone 1 g IV, 1 liter of normal saline IVF , and a prescription for Vantin twice a day was sent to her pharmacy. Per family she has been eating a little and she did have a dose of Vantin 200 mg this morning, but she is more lethargic than she was even yesterday.UC is growing out gram-negative rods. Charlotte Cao MD [address] [place] [address],[address], [place], [address], [employer] 10/08/2024 17:39:10 OBGyn Episode No OBEpisode recorded.
--- OUTSIDE RECORDS SUMMARY | 2024-10-08 18:17 | XMS_ITS | Continuity of Care Document ---
Author Organization [employer] [facility], [place] in - [facility] Address [address] [place] [phone] Care Team Providers Care Social Security Benefits Interviewer Name Role Phone NAME, JOSE Primary Care Provider HIM CHRIS OTHER Assessment Encounter Date Assessment Date Assessment LastModified by Organization Details LastModified Time 10/08/2024 10/08/2024 I provided real -time medical direction via phone for this encounter, and was available for additional phone based assistance as needed. I have reviewed and agree with the Assessment and Plan as documented by the Photo Specialist. We discussed the diagnostic uncertainty of home [...] agreeable they are requesting she go to [facility]. EMS initiated by [facility] provider, I called report to charge posterJaymie at [facility] ER [email or web address] Not available 10/08/2024 17:38:59 Plan of Treatment Reminders Order Date Submit Date Provider Last Modified By Organization Details Last Modified Time Details Appointments Urgent Care 2024 03:17P Adriel Cao MD Not available Not available Not available Lab glucose, fingersti ck, blood [email or web address], [address], 10/08/2024 15:20:09 Referral None recorded. Procedures None recorded. Surgeries None recorded. Imaging electroca rdiogram [email or web address], [address], 10/08/2024 15:22:14 Medication Orders sodium chloride 0.9 % intraveno us solution 2024 025 [email or web address] [facility]/Pharmacy #[id number], [address] [facility], [place], [address], 10/08/2024 15:21:50 Patient TargetsNo targets recorded. Patient InstructionsNo instructions recorded. Reason for Referral None Reported. Results Created Date Observation Date Name Description Value Unit Range Abnormal Flag Note LastModifiedBy Organization Detail LastModifiedTime 10/09/1910/08/2024 gluco se, finge rstic k, blood Blood Glucose: mg/dl 220 Not Available Main - [address], [address], 10/08/2024 15:18:52 10/09/1910/08/2024 elect shabbir augr am No observ ation record ed. [address], [address], 10/08/2024 18:13:27 Result Notes None recorded. Procedures Surgical History None recorded. Imaging Results Imaging Date Name Status LastModified by Organization Details LastModified Time 10/08/2024 electrocardiogram completed [address], [address], 10/08/2024 18:13:27 Procedure Notes None recorded. Medical Equipment None Reported. Allergies Allergen ID Allergen Name Allergen Category Reaction Reaction Severity Criticality Documentation Date Start Date Code Code System Note Provider Name and Address Organization Details Recorded Time 18522 Product containin g penicilli n (product) medicatio n Not available Not available Not available 10/07/2024 40054 8001 SNOMED Not Available [facility] - production [...] Available Not Avai lable omeprazole 40 mg capsule,laix yed release TAKE 1 CAPSULE BY MOUTH [...] Available No t Available Vitals Date Recorded Respiratory rate Body height Body weight Oxygen saturation Oxygen saturation in Arterial blood by Pulse oximetry Heart rate Systolic blood pressure Diastolic blood pressure Provider Name and Address Organization Details Last Updated DateTime 5 14 /min 157.48 cm 33000.6 g 96 % 96 % 40 /min 109 mm[Hg] 63 mm[Hg] Not Available [facility] - production 15:17:36 Social History None recorded. Functional Status None recorded. Mental Status None recorded. Family History Nothing Reported. Medical History No medical history recorded. Gynecological HistoryNo gynecological history recorded. Obstetrics History GPAL:G 0 P 0 0 0 0 Past Encounters Encounter ID Performer Location Encounter Start Date Encounter Closed Date Diagnosis/Indication Diagnosis SNOMED-CT Code Diagnosis ICD10 Code Diagnosis Note [id number] YOLIS MCARTHUR MD Main - [address] [address] 10/07/2024 13:57:18 10/07/2024 14:53:52 Acute urinary tract infection 167277014 N39.0 [id number] Charlotte Cao MD Main - [address] [address] 10/08/2024 15:17:33 10/08/2024 17:39:14 Altered mental status 089196598 R41.82 posible urosepsis patient is borderline hypotensiv e, clammy,, she is not hypoglycem ic. EKG reveals sinus bradycardi a at a rate of 48/there is a [place] visible but the EKG did not capture [...] by Organization Details LastModified Time None Recorded Payers Encounter Date Sequence Insurance Name Policy Number Policy Monzon Covered Member ID Monzon Member ID Guarantor Name 10/08/2024 1 [facility] - DOS ON OR AFTER 2022 - DUAL ELIGIBLE - LONG-TERM OPTIONS AND ONE CARE (MEDICARE REPLACEMENT/ADV ANTAGE - HMO) Victorina Mike [id number] Victorina Mike Notes Date Note Type Note Provider Name and Address Organization Details Recorded Time 10/08/2024 text/html CRC Nurse Triage Notes (Sirisha Seogvia): Reason For Request: Patient was seen in [...] Pain, Diabetes Mellitus Type 2PMH Reviewed at 10/08/2024 - 13:56Allergies Reviewed at 10/08/2024 - 13:56Comments: Architectural Coating Finisher verified the name//address and phone number. Son [...] s/s and seek emergency treatment if need Photo Specialist Organization Information for Elma Mensah Legal Name: [employer] Address: [address] [place] [address], [place] [address], Cattle Dipper: Morro VALADEZ No.: [id number] Photo Specialist POC Test Results from Elma Mensah - ALS EKG (15:22:55) EKG test performed. Attachments uploaded as part of this test result can be found under Documents section. Blood Glucose Measurement (15:22:57) Blood Glucose: 220 mg/dL .................... .................... .................... .................... .................... .................... .................... . Photo Specialist Note From Elma Mensah: SHELLEY makes pt contact. She is found seated in a recliner in the living room of a small and clean apartment where she lives w/ family. She makes eye contact w/ [facility] and says hello. She is not in acute distress. She appears to be mildly pale; no ashen or jones color are noted. She is not tripoding, using accessory muscles to breathe, and no stridor or sonorous respirations are present. There is no facial droop or one-sided weakness observed, and she is not bleeding anywhere. Pt is Icelandic-speaking only and family is present and on the phone to provide hx and translation. Family tells [facility] the pt was seen by [facility] yesterday and dx w/ a UTI, [...] more profound to the family. Son tells [facility] She just isn't herself! Pt offers no complaints to [facility]. She denies cp, sob, n/v/d, abd pain. She is intermittently somnolent during the visit and exam, often closing her eyes for several minutes. She is able to follow commands well. Daughter tells [facility] the swelling in her feet and LEs seems to be a little bit worse over the past couple days. [facility] obtains vital signs and pt is [...] touch. Pt continues to be sleepy . [facility] contacts [facility] and discusses the above. Out of concern for urosepsis, [facility] and [facility] feel pt should be transported to the hospital for further evaluation and care. Family is amendable to the plan. [facility] orders FSBG, a 12-lead EKG, and 500mls NS fluid bolus. Finger stick and EKG are obtained. A 20ga IV is established in the L AC and 500mls NS are administered. [facility] calls 911 and pt is transported to [facility] by [facility]. [facility] is clear. Report completed by NISHA Mensah [id number]. [facility] Lab Orders: glucose, fingerstick, blood: Performed [facility] Medication Orders: sodium chloride 0.9 % intravenous solution: Administered .................... .................... .................... .................... .................... .................... .................... . [facility] Consulted: Charlotte Cao .................... .................... .................... .................... [...] growing out gram-negative rods. Charlotte Cao MD [address] [facility],[address], [place], [address], [employer] 10/08/2024 17:39:10 OBGyn Episode No OBEpisode recorded.
--- OUTSIDE RECORDS SUMMARY | 2024-10-08 18:17 | XMS_ITS | Continuity of Care Document ---
Author Organization [employer] [place] [facility] Address [address] [place] [phone] Care Team Providers Care Student Development Dean Name Role Phone NAME, JOSE Primary Care Provider HIM CHRIS OTHER Assessment Encounter Date Assessment Date Assessment LastModified by Organization Details LastModified Time 10/07/2024 10/07/2024 Mrs. Amado Mike was evaluated for confusion and urinary symptoms. On assessment she is afebrile, mildly bradycardic and hypertensive. Per oracle technical architect assessment she is independently ambulatory with a [...] Assessment and Plan as documented by the Car Cleaning Supervisor. We discussed the diagnostic uncertainty of home [...] of instruction [email or web address] Not available 10/07/2024 14:13:08 Plan of Treatment Reminders Order Date Submit Date Provider Last Modified By Organization Details Last Modified Time Details Appointments Urgent Care 2024 03:17P M Charlotte Cao MD Not available Not available Not available Lab urinalysi s, dipstick 2024 025 [facility], [address] [place] [address], [address], 10/07/2024 19:19:04 BMP, serum or plasma 2024 025 [facility], [address] [place] [address], [address], 10/07/2024 19:19:23 culture, urine 2024 025 [facility] (Centralized Electronic Ordering - All Locations), Patient Can Go To The Location Of Their Choice, [id number] 10/08/2024 12:05:39 Referral None recorded. Procedures None recorded. Surgeries None recorded. Imaging None recorded. Medication Orders cefpodoxi me 200 mg tablet 2024 025 [facility]/Pharmacy #[id number], [address] [place], [address], 10/07/2024 14:03:27 ceftriaxo ne 1 gram solution for injection [address]/Pharmacy #[id number], [address] [place], [address], 10/07/2024 14:11:56 sodium chloride 0.9 % intraveno us solution [address]/Pharmacy #[id number], [address] [place], [address], 10/07/2024 14:12:07 Patient TargetsNo targets recorded. Patient InstructionsNo instructions recorded. Reason for Referral None Reported. Results Created Date Observation Date Name Description Value Unit Range Abnormal Flag Note LastModifiedBy Organization Detail LastModifiedTime 10/09/1910/08/2024 elect shabbir diogr am No observ ation record ed. [email or web address] Main - [facility] [address] [place] [address], [address], 10/08/2024 18:13:27 Result Notes None recorded. Medical Equipment None Reported. Allergies Allergen ID Allergen Name Allergen Category Reaction Reaction Severity Criticality Documentation Date Start Date Code Code System Note Provider Name and Address Organization Details Recorded Time 55470 Product containin g penicilli n (product) medicatio n Not available Not available Not available 10/07/2024 77111 8001 SNOMED Not Available [facility] - production [...] Address Organization Details Last Updated DateTime 5 50 /min 14 /min 98.9 [degF] 97 % 97 % 134 mm[Hg] 76 mm[Hg] Not Available [facility] - production 5 13:57:20 Social History None recorded. Functional Status None recorded. Mental Status None recorded. Family History Nothing Reported. Medical History No medical history recorded. Gynecological HistoryNo gynecological history recorded. Obstetrics History GPAL:G 0 P 0 0 0 0 Past Encounters Encounter ID Performer Location Encounter Start Date Encounter Closed Date Diagnosis/Indication Diagnosis SNOMED-CT Code Diagnosis ICD10 Code Diagnosis Note [id number] ROSALIO MCARTHUR MD Main - [facility] [address] [place] [phone] 10/07/2024 13:57:18 10/07/2024 14:53:52 Acute urinary tract infection [id number] N39.0 Health Concerns Section Related Observation LastModified by Organization Detai ls LastModified Time None Recorded Concern Status LastModified by Organization Details LastModified Time None Recorded Payers Encounter Date Sequence Insurance Name Policy Number Policy Monzon Covered Member ID Monzon Member ID Guarantor Name 10/07/2024 1 [facility] - DOS ON OR AFTER 2022 - DUAL ELIGIBLE - [facility] OPTIONS AND ONE CARE (MEDICARE REPLACEMENT/ADV ANTAGE - HMO) Victorina Mike [id number] Victorina Mike Notes Date Note Type Note [...] Type 2 PMH Reviewed at 10/07/2024 - 11:09 Allergies Reviewed at 10/07/2024 - 11:09 Comments: Home Health Care Respiratory Therapist verified the Pt.'s name//address and phone number. [...] the counter medication - Wellness check requested. Car Cleaning Supervisor Organization Information for José Miguel Romero [employer] Legal Name: [facility] [employer] Transportation Address: [address] [place] [address], [place] [address], Cardiovascular Tech: Juan Wilson MD CLIA No.: [id number] Car Cleaning Supervisor POC Test Results from José Miguel Romero [...] .................... .................... .................... .................... .................... .................... . Car Cleaning Supervisor Note From José Miguel Romero: This visit [...] questions and are agreeable to this plan. [facility] Lab Orders: urinalysis, dipstick: Performed BMP, serum or plasma: Performed culture, urine: Performed [facility] Medication Orders: ceftriaxone 1 gram solution for injection: Administered sodium chloride 0.9 % intravenous solution: Administered .................... .................... .................... .................... .................... .................... .................... . [facility] Consulted: Rosalio Mcarthur .................... .................... .................... .................... .................... .................... .................... . Disposition: Fulfilled ROSALIO MCARTHUR MD [address] [facility],[address], [place], [address], [employer] 10/07/2024 14:53:49 OBGyn Episode No OBEpisode recorded.
--- OUTSIDE RECORDS SUMMARY | 2024-10-08 18:17 | XMS_ITS | Encounter Summary ---
Author Organization [employer] Address [address] [place] [address] Care Team Providers Care Electrician Third Name Role Phone Name, Balta MAYER Primary Care Provider [phone] Reason for Visit * Reason Comments Med Refill Encounter Details Date Type Department Care Team (Late st Contact Info) Description 03/05/2024 Refill [facility] [address] [place], [place] [phone] Name, MD Balta [address] [place] [address] Social History Tobacco Use Types Packs/Day Years [...] Description 10/22/2024 1:00 PM EDT Clinical Support [facility] [address] [place] [address] 12/17/2024 1:30 PM EDT Office Visit [facility] [address] [place] [address] Harry, Esther, OD [address] [place] [address] 01/21/2025 10:00 AM EDT Office Visit [facility] [address] [place] [address] NameBalta MD [address] [place] [id number] documented as of this encounter Visit Diagnoses Not on filedocumented in this encounter Additional Health Concerns Assessment Noted Time PHQ-9 Depression Total Score: 0 09/20/19 24 1:15 PM EDT documented as of this encounter Care Teams Electrician Third Relationship Specialty Start Date End Date Balta Jeffrey MD [address] [place] [address] PCP - General Internal Medicine 06/14/22 Samir TAI 08/05/24 documented as of this encounter
[2024-10-08 18:23] LABS: Troponin-I High Sensitivity < 2.7 ng/L (<3.5-17.0)
[2024-10-08 18:35] LABS: Influenza A PCR NEGATIVE (Negative); Influenza B PCR NEGATIVE (Negative); Resp Syncy Virus RNA Qual PCR NEGATIVE (Negative); SARS COV2 PCR INHOUSE NEGATIVE (Negative)
[2024-10-08 18:36] LABS: Mean Platelet Volume 11.1 fL (9.4-12.3); Platelet Count 111 X10*3/uL (160-400)
--- NOTE | 2024-10-08 18:39 | PC.NURSE ---
pt to ct scan
[2024-10-08] MEDS: iohexoL 350 MG/ML 100 ML INFUS..BTL 85 ML IV (18:46)
--- NOTE | 2024-10-08 19:40 | MHC.EDTECH ---
This pct assumed care of Patient ,vitals taken ,Patient was reposition and boosted up in bed .Patient family member at bedside .
--- NOTE | 2024-10-08 20:22 | ECG_ITS ---
Test Reason : GRAHAM Blood Pressure : */* mmHG Vent. Rate : 53 BPM Atrial Rate : 53 BPM P-R Int : 166 ms QRS Dur : 82 ms QT Int : 440 ms P-R-T Axes : -22 9 -32 degrees QTcB Int : 412 ms Sinus bradycardia Nonspecific ST and T wave abnormality Abnormal ECG When compared with ECG of 08-Oct-2024 18:30, Nonspecific T wave abnormality now evident in Lateral leads Referred By: Fernando Umana Electronically Signed By: REYNOLD IYER
[2024-10-08 20:48] LABS: Procalcitonin 0.03 ng/mL
[2024-10-08 21:21] LABS: VBG Base Excess -1.9 mmol/L; VBG HCO3 21 mmol/L (22-26); VBG pCO2 33 mmHg; VBG pH 7.42 (7.32-7.43); VBG pO2 65 mmHg
[2024-10-08 21:23] LABS: Anion Gap 10 (12-20); Blood Urea Nitrogen 19 mg/dL (9-16); Calcium 9.1 mg/dL (8.4-10.2); Carbon Dioxide 21 mmol/L (22-29); Chloride 114 mmol/L (96-108); Estimated Glomerular Filt Rate 44; Glucose Random 100 mg/dL (60-115); Potassium 5.4 mmol/L (3.3-5.1); Sodium 140 mmol/L (135-145)
[2024-10-08 21:31] LABS: Venous Blood Gas Refer to POC result
[2024-10-08 21:31] LABS: Troponin-I High Sensitivity 2.9 ng/L (<3.5-17.0)
[2024-10-08 21:35] LABS: B Type Natriuretic Peptide 66 pg/mL (<100)
--- NOTE | 2024-10-08 21:56 | P.HPHOSP_ITS ---
History of Present Illness Date of Service: 10/08/24 Attending physician on admission: Leatha Singleton Chief Complaint: weakness Patient is a 78-year-old female [place]ese-speaking only with past medical history advanced dementia, diastolic heart failure, atrial fibrillation on eliquis,, JOVANNI not on CPAP, anemia, CKD -3B, hypertension, hyperlipidemia, vitamin-D deficiency, constipation, GERD, urinary incontinence, osteoarthritis with right knee repair, hysterectomy, and obesity was recently on GLP 1 up until 2 months ago presents to the emergency room due to concerns for urosepsis. Patient is being managed by [facility] which provides in-home medical care. Two days prior patient was seen in the home and received IV hydration and a urine sample was obtained due to suspicion for UTI. Urinalysis came back positive and patient was treated with IM ceftriaxone in the home setting 10/07/2024. In-home medical coverage felt that patient was weak and blood pressure was borderline low and felt the patient should be seen in the emergency department for evaluation. Upon arrival patient was hypothermic with a body temp of 90.7 degrees and placed on a Aren Hugger. Patient also noted to be bradycardic, heart rate in the 50s. KS rate was normal 173. No obvious ischemic changes and troponin was negative. Patient received IV hydration. Periwick was placed. Blood cultures and urine samples were sent and patient was started on ceftriaxone IV. Patient currently awake and responsive able to follow some commands. Transfer Car Operator present and with family HPI was obtained. Advanced directives note patient is a full code and that will remain in place until patient is seen by Urology for evidence of nephrolithiasis and mild hydronephrosis involving the right ureter. Patient denies any pain including in the flank area. UA correlates with these findings with a small amount of blood present. Vitals have improved and will hold off on additional IVF noting pt's CHF hx. Pt will be NPO after midnight. Urology consult placed. Case reviewed with Dr. Singleton for admission. Transfer Car Operator present for interview. Review of Systems 2 Review of Systems: Patient denies current chest pain, shortness of breath at rest, headache, visual changes, nausea, vomiting, diarrhea, constipation and back flank pain. Per family patient has advanced dementia and currently lives with family in the home setting. Yes all other systems are reviewed and are negative PENDING SALE TO [facility] Medical History Epigastric pain Tubular adenoma of colon Preop cardiovascular exam Urinary urgency Pneumonia Hospital discharge follow-up Asthma MARIA R (acute kidney injury) GERD (gastroesophageal reflux disease) Diabetes Osteoarthritis Hyperlipidemia Chronic diastolic heart failure Hypertension JOVANNI (obstructive sleep apnea) Cognitive capacity: memory poor, advanced cognitive deficits Functional capacity: wheelchair bound Patient : No Family History Father HTN (hypertension) Mother HTN (hypertension) CVD (cardiovascular disease) Daughter Bone cancer Father Cancer Surgical History Hx of cataract surgery Status post total knee replacement, right History of arthroplasty of right knee Hx of colonoscopy H/O: hysterectomy History of salpingoophorectomy History of tonsillectomy Social History Household Members: Family Housing: House Are you a primary before and after school daycare worker to a significant other at home: No Do you presently have visiting nurse or other home services: Yes Unable to assess alcohol history related to: Unknown Alcohol intake: never Comment: Advised to remove Patient Tobacco Use Status: Never used Tobacco Smoked in Last 30 Days: No e-Cigarette/Vaping Use: Never Used Second Hand Smoke Exposure: No Use of substances other than those prescribed or required for medical reasons: No Advance Directives: No Advance Directives Information Provided: Yes service: No Current occupational status: retired Current occupation: Right handed Meds Allergies Allergy/AdvReac Type Severity Reaction Status Date / Time Penicillins [PENICILLINS] Allergy Intermediate NAUSEA/HIVE Verified 10/08/24 16:36 S metformin AdvReac Unknown Diarrhea Verified 10/08/24 16:36 Home Medications ?Medication ?Instructions ?Recorded ?Confirmed ?Last Taken ?Type oxybutynin chloride 5 mg tablet 5 mg PO BID 05/15/20 09/12/24 07/23/24 History calcium carbonate 1 tab PO DAILY 03/24/21 09/12/24 07/23/24 History cholecalciferol (vitamin D3) 25 1 tab PO DAILY 03/24/21 09/12/24 07/23/24 History mcg (1,000 unit) tablet fluticasone propionate 50 1 - 2 spray intranasal DAILY PRN 03/24/21 09/12/24 11/01/22 History mcg/actuation nasal Nasal Congestion spray,suspension cyanocobalamin (vitamin B-12) 1,000 mcg IM Q28D 11/02/22 09/12/24 07/26/24 History 1,000 mcg/mL injection solution cetirizine 10 mg tablet 10 mg PO DAILY 07/17/24 09/12/24 07/23/24 History mirtazapine 15 mg tablet 15 mg PO BEDTIME 07/17/24 09/12/24 07/23/24 History amlodipine 10 mg tablet 10 mg PO BEDTIME 07/24/24 09/12/24 07/23/24 History empagliflozin 10 mg tablet 10 mg PO DAILY 07/24/24 09/12/24 07/23/24 History (Jardiance) Physical Exam 2 Vital Signs and Narrative: Vital Signs: Last Vital Signs Temp 93.4 F L 10/08/24 21:48 Pulse 57 10/08/24 21:48 Resp 15 10/08/24 21:48 BP 125/50 L 10/08/24 21:48 Pulse Ox 93 10/08/24 21:48 O2 Del Method Room Air 10/08/24 21:48 BMI result Body Mass Index 37.4 Alert and orientated X1 to self. Neuro: pt able to follow commands when asked, CN II-XII intact EYES: PERRLA, EOM intact ENT: hearing intact, no issues with swallowing, uvula midline, lips moist, nares patent no epistaxis, upper and lower dentures present Cardiac: S1 S2 RRR, HR 56, no murmur, no JVD, no edema in Lower ext Pulmonary: lungs clear to auscultation B Abdominal: BS active in all 4 quadrants, no guarding, tenderness, rebounding MSK: strength 4/5 upper and lower extremities : no CVA tenderness no bladder distension periwick catheter draining pale yellow urine Extremities: no edema in lower extremities, PT and DP pulses palpable +2 Psych: mood calm, pt cooperative Skin: no open wounds found, skin in perineum clean and dry, no redness noted Results Labs 10/08/24 17:32 10/08/24 21:05 Labs: Laboratory Results - last 24 hr 10/08/24 10/08/24 10/08/24 17:31 17:32 17:44 MCV 87.0 MCH 27.1 MCHC 31.2 RDW 18.0 H Plt Count 111 L D MPV 11.1 Immature Gran % (Auto) 1.8 H Neut % (Auto) 80.4 H Lymph % (Auto) 12.7 L [place] % (Auto) 4.0 Eos % (Auto) 0.8 Baso % (Auto) 0.3 Lymph # (Auto) 0.8 L [place] # (Auto) 0.2 Eos # (Auto) 0.1 Baso # (Auto) 0.0 Abs Immat Gran (auto) 0.11 H Absolute Neuts (auto) 4.8 Absolute Nucleated RBC 0.030 H Nucleated RBC % (auto) 0.5 H PT 21.2 H INR 1.8 H VBG pH VBG pCO2 VBG pO2 VBG HCO3 VBG O2 Saturation VBG Base Excess Anion Gap 7 L Estim Creat Clear Calc 35.2 Estimated GFR 38 Random Glucose 190 H Lactic Acid 1.0 Calcium 9.4 D Magnesium 1.9 Total Bilirubin 0.2 Direct Bilirubin < 0.2 AST 51 H ALT 58 H Alkaline Phosphatase 170 H C-Reactive Protein 1.74 H B-Natriuretic Peptide Total Protein 6.1 L Albumin 3.3 L Lipase 45 Procalcitonin 0.03 Urine Color Yellow Urine Appearance Turbid Urine pH 5.5 Ur Specific [place] 1.010 Urine Protein Negative Urine Glucose (UA) >=1000 H Urine Ketones Negative Urine Blood Small (1+) H Urine Nitrite Negative Ur Leukocyte Esterase Large (3+) H Urine RBC 3-5 H Urine WBC >50 H Ur Squamous Epith Cells 6-10 Urine Bacteria 2+ Hyaline Casts 11-20 Urine Yeast Present Influenza Type A (PCR) NEGATIVE Influenza Type B (PCR) NEGATIVE RSV RNA Qual (PCR) NEGATIVE SARS-CoV-2 RNA (RT-PCR) NEGATIVE Blood Type Antibody Screen 10/08/24 10/08/24 10/08/24 17:50 21:05 21:10 MCV MCH MCHC RDW Plt Count MPV Immature Gran % (Auto) Neut % (Auto) Lymph % (Auto) [place] % (Auto) Eos % (Auto) Baso % (Auto) Lymph # (Auto) [place] # (Auto) Eos # (Auto) Baso # (Auto) Abs Immat Gran (auto) Absolute Neuts (auto) Absolute Nucleated RBC Nucleated RBC % (auto) PT INR VBG pH 7.32 7.42 VBG pCO2 46 33 VBG pO2 63 65 VBG HCO3 24 21 L VBG O2 Saturation 92.0 94.0 VBG Base Excess -1.3 -1.9 Anion Gap 10 L Estim Creat Clear Calc 40.0 Estimated GFR 44 Random Glucose 100 Lactic Acid 1.0 Calcium 9.1 Magnesium Total Bilirubin Direct Bilirubin AST ALT Alkaline Phosphatase C-Reactive Protein B-Natriuretic Peptide 66 Total Protein Albumin Lipase Procalcitonin Urine Color Urine Appearance Urine pH Ur Specific [place] Urine Protein Urine Glucose (UA) Urine Ketones Urine Blood Urine Nitrite Ur Leukocyte Esterase Urine RBC Urine WBC Ur Squamous Epith Cells Urine Bacteria Hyaline Casts Urine Yeast Influenza Type A (PCR) Influenza Type B (PCR) RSV RNA Qual (PCR) SARS-CoV-2 RNA (RT-PCR) Blood Type A Negative Antibody Screen NEGATIVE ECG Attestation: I personally reviewed and interpreted this ECG as follows: ( P-R Int : 166 ms QRS Dur : 82 ms QT Int : 440 ms P-R-T Axes : - 22 9 -32 degrees QTcB Int : 412 ms Sinus bradycardia Nonspecific ST and T wave abnormality Abnormal ECG When compared with ECG of 08-Oct-2024 18:30, Nonspecific T wave abnormality now evident in Lateral leads) Prior ECG tracings: available for review Imaging Radiologist's Impressions: CT ABD PELVIS Impression: The bladder is mildly thick-walled and there is stranding about the bladder. Correlation for cystitis. There is a 4 mm calculus within the proximal right ureter with mild right hydronephrosis. Cardiomegaly with possible mild interstitial edema. Clinical correlation. Assessment and Plan (1) Sepsis: Start date: 10/08/24 Qualifiers: Sepsis acute organ dysfunction status: unspecified Sepsis type: sepsis due to unspecified organism Qualified Code(s): A41.9 - Sepsis, unspecified organism Status: Acute (2) Urinary tract infection: Qualifiers: Hematuria presence: without hematuria Urinary tract infection type: a cute cystitis Qualified Code(s): N30.00 - Acute cystitis without hematuria Status: Acute (3) Hypothermia: Qualifiers: Encounter type: initial encounter Qualified Code(s): T68.XXXA - Hypothermia, initial encounter Status: Acute (4) Bradycardia: Status: Acute (5) Hyperkalemia: Status: Acute (6) Calculus of proximal right ureter: Status: Acute (7) CKD (chronic kidney disease): Qualifiers: Chronic kidney disease stage: stage 3 (moderate) Chronic kidney disease stage 3 subtype: stage 3b (GFR 30-44) Qualified Code(s): N18.32 - Chronic kidney disease, stage 3b Status: Acute (8) Chronic diastolic heart failure: Status: Acute (9) Dementia: Qualifiers: Dementia behavioral or psychological symptom: without behavioral, psychotic, or mood disturbance or anxiety Dementia type: unspecified type Status: Acute Plan Patient is a 78-year-old female [place]ese-speaking only with past medical history advanced dementia, diastolic heart failure, atrial fibrillation on eliquis,, JOVANNI not on CPAP, anemia, CKD -3B, hypertension, hyperlipidemia, vitamin-D deficiency, constipation, GERD, urinary incontinence, osteoarthritis with right knee repair, hysterectomy, and obesity was recently on GLP 1 up until 2 months ago is being admitted for sepsis related to UTI, nephrolithiasis of R ureter with mild hydronephrosis 1. Sepsis Source urine with noted hypothermia, bradycardia, weakness Bear Hugger, temp rising, Mental status at baseline per family noting pt has dementia IVF administered, LA WNL No additional fluids at this time due to CHF hX UA with small heme, LE +3, bc > 50 Ceftriaxone 1GM daily this is day #2 (pt received dose at home 10/07) Follow urine and blood cultures Noted metabolic acidosis with nonag elevation, avoid NACL noting CL level, renal fx at baseline for this pt Pt is able to protect airway, no indication for ICU placement 2. Hypothermia Temp 90.7 on arrival, pt has responded to bear hugger, IVF, IV ABX Noted bradycardia, HR in 50's (hx of bradycardia noted with past admissions) Hold BB Telemetry Continue warmer, monitor temp routinely 3. Bradycardia KS 173, hx of AFIB on eliquis ECG in AM Continue telemetry Pt follows with cardiology for AFIB and DHF Hold BB (coreg) Check TSH with reflex MG 1.9 4. Hyperkalemia K 5.4. repeated 5.4 Can consider one dose of Lokelma BMP in AM Telemetry Nephrology consult if needed 5. Calculus proximal R ureter with mild hydrophobia Urology notified of admission per ED provider Consult placed NPO after midnight Eliquis held 6. CKD 3B Chronic, pt follows with nephrology Monitor renal fx Avoid hypotension, nephrotoxic medications 7. Chronic Diastolic HF BNP 66 Asymptomatic Monitor daily wts, I/Os Low sodium diet Telemetry Hold BB for noted bradycardia Hold Eliquis due to potential for procedure in AM with urology Hold Lasix 8. Dementia Pt is calm, no hx of agitation or elopement, pt lives with family Fall risk is elevated Hold on DVT prophylaxis due to possible need for intervention with urology PPI ordered MED REC will need to be reviewed in AM noting time of admission. Currently holding coreg, eliquis and lasix. Patient will require admission for sepsis secondary to UTI and noted nephrolithiasis involving the right ureter with mild hydronephrosis. Patient may require at least 3 days of inpatient admission. Total time managing care of this patient today: 45 minutes. Quality Stroke Does the patient have a stroke diagnosis?: No Reason for No Anti-thrombotic by Day Two: Contraindicated VTE Prior VTE?: No VTE Risk Level:: Medical - moderate - high VTE Device Contraindication: N/A - Device Ordered VTE Drug Contraindication: Treatment Not Indicated
[2024-10-08] MEDS: Melatonin 3 MG TABLET 6 MG PO (23:58)
[2024-10-08] MEDS: 0.9 % Sodium Chloride Flush 3 ML SYRINGE IVFLUSH (23:58)
[2024-10-09] VITALS (12 sets, daily range): BP systolic 102–149; BP diastolic 5–91; PULSE 56–78; RESP 14–19; TEMP 33.6–36.8; O2SAT 93–98
--- NOTE | 2024-10-09 | ECG_ITS ---
Test Reason : [place] Blood Pressure : */* mmHG Vent. Rate : 50 BPM Atrial Rate : 50 BPM P-R Int : 178 ms QRS Dur : 80 ms QT Int : 426 ms P-R-T Axes : 48 5 -41 degrees QTcB Int : [address] & T wave abnormality, consider anterolateral ischemia Abnormal ECG When compared with ECG of 08-Oct-2024 20:45, T wave inversion more evident in Anterior leads Referred By: Connie Faria Electronically Signed By: REYNOLD IYER
--- NOTE | 2024-10-09 00:09 | PC.NURSE ---
Assumed care of pt at 2300. Pt is alert and oriented to self and place, calling out, wants to leave. Pt has dementia, daughters at bedside. Pt denies pain. Daughters requesting something to help patient sleep. Attempte to medicate pt with po melatonin but patient spitting out pudding. Patient yelling out Senora saying in Fijian she doesn't want to stay. Pt is resting in bed otherwise, VSS, NPO at this time. Refusing reporsition at this time.
[2024-10-09] MEDS: Pantoprazole Sodium 40 MG/10 ML VIAL IVPUSH (06:13)
--- NOTE | 2024-10-09 08:07 | P.CNUR_ITS ---
History of Present Illness Consult details Consult date: 10/09/24 Narrative: 78-year-old woman who lives at home with her daughter. Apparently she did not feel very well over the last few days and 2 days ago she had a home visit from a medical team from the [facility]. A urine sample was obtained. Reportedly, Yesterday prior to presentation to ED the patient was given a dose of ceftriaxone because of the abnormal urinalysis. Was semt to ED because [facility] team went back to the house and felt that she seemed very weak. CTAP - 4 mm right proximal ureteral stone with mild/mod hydronephrosis Review of Systems 2 Review of Systems: Yes all other systems are reviewed and are negative Constitutional: Constitutional: Reports no additional constitutional complaints Eyes: Eyes: Reports no additional eye complaints ENT: Reports system reviewed and no additional complaints, except as documented Cardiovascular: Cardiovascular: Reports no additional cardiovascular complaints Respiratory: Respiratory: Reports no additional respiratory complaints Gastrointestinal: Gastrointestinal: Reports no additional gastrointestinal complaints Genitourinary: Genitourinary: Reports as per HPI Musculoskeletal: Musculoskeletal: Reports no additional musculoskeletal complaints Integumentary/Breasts: Skin/Breast: Reports system reviewed and no additional complaints, except as docu Neurologic: Reports system reviewed and no additional complaints, except as documented Psychiatric: Psychiatric: Reports no additional psychiatric complaints Endocrine: Endocrine: Reports no additional endocrine complaints Hematologic/Lymphatic: Hematologic/Lymphatic: Reports no additional hematologic/lymphatic complaints Allergic/Immunologic: Allergic/Immunologic: Reports no additional allergic/immunologic complaints PMFSH Past Medical History Medical History Renal insufficiency Epigastric pain Tubular adenoma of colon Preop cardiovascular exam Urinary urgency Pneumonia Hospital discharge follow-up Asthma MARIA R (acute kidney injury) GERD (gastroesophageal reflux disease) Diabetes Osteoarthritis Hyperlipidemia Chronic diastolic heart failure Hypertension JOVANNI (obstructive sleep apnea) Family History Family History Father HTN (hypertension) Mother HTN (hypertension) CVD (cardiovascular disease) Daughter Bone cancer Father Cancer Surgical History Surgical History Hx of cataract surgery Status post total knee replacement, right History of arthroplasty of right knee Hx of colonoscopy H/O: hysterectomy History of salpingoophorectomy History of tonsillectomy Social History Social History Household Members: Family Housing: House Are you a primary care team assistant to a significant other at home: No Do you presently have visiting nurse or other home services: No Unable to assess alcohol history related to: Unknown Alcohol intake: never Comment: Advised to remove Patient Tobacco Use Status: Never used Tobacco e-Cigarette/Vaping Use: Never Used Second Hand Smoke Exposure: No service: No Current occupational status: retired Current occupation: Right handed Meds Allergies Allergy/AdvReac Type Severity Reaction Status Date / Time Penicillins [PENICILLINS] Allergy Intermediate NAUSEA/HIVE Verified 10/08/24 16:36 S metformin AdvReac Unknown Diarrhea Verified 10/08/24 16:36 Active Medications: Current Medications Acetaminophen (Acetaminophen 325 Mg Tablet) 650 mg PO Q6H PRN PRN Reason: Pain, Mild 1-3,fever,headache Calcium Carbonate (Calcium Carbonate 750 Mg Tab.Chew) 750 mg PO Q4H PRN PRN Reason: Heartburn Ceftriaxone Sodium (Ceftriaxone Sodium 1 Gm Vial) 1 gm IVPUSH Q24H [facility] Magnesium Hydroxide (Milk Of Magnesia 30 Ml Oral.Susp) 30 ml PO DAILY PRN PRN Reason: Constipation Melatonin (Melatonin 3 Mg Tablet) 6 mg PO BEDTIME PRN PRN Reason: Insomnia Last Admin: 10/08/24 23:58 Dose: 6 mg Ondansetron HCl (Ondansetron Hcl 4 Mg/2 Ml Vial) 4 mg IVPUSH Q8H PRN PRN Reason: Nausea and Vomiting Pantoprazole Sodium (Pantoprazole Sodium 40 Mg/10 Ml Vial) 40 mg IVPUSH DAILY@0630 [facility] Last Admin: 10/09/24 06:13 Dose: 40 mg Sodium Chloride (0.9 % Sodium Chloride Flush 3 Ml Syringe) 3 ml IVFLUSH QSHIFT [facility] Last Admin: 10/08/24 23:58 Dose: 3 ml Home Medications ?Medication ?Instructions ?Recorded ?Confirmed ?Last Taken ?Type oxybutynin chloride 5 mg tablet 5 mg PO BID 05/15/20 10/09/24 10/09/24 History cholecalciferol (vitamin D3) 25 1 tab PO DAILY 03/24/21 10/09/24 10/09/24 History mcg (1,000 unit) tablet fluticasone propionate 50 1 - 2 spray intranasal DAILY PRN 03/24/21 10/09/24 10/09/24 History mcg/actuation nasal Nasal Congestion spray,suspension cyanocobalamin (vitamin B-12) 1,000 mcg IM Q28D 11/02/22 10/09/24 10/09/24 History 1,000 mcg/mL injection solution cetirizine 10 mg tablet 10 mg PO DAILY 07/17/24 10/09/24 10/09/24 History amlodipine 10 mg tablet 10 mg PO BEDTIME 07/24/24 10/09/24 10/09/24 History calcium carbonate 600 mg PO DAILY 10/09/24 10/09/24 10/09/24 History cefpodoxime 200 mg tablet 200 mg PO BID 10/09/24 10/09/24 10/09/24 History docusate sodium 100 mg capsule 100 mg PO DAILY 10/09/24 10/09/24 10/09/24 History (Stool Softener) empagliflozin 10 mg tablet 10 mg PO DAILY 10/09/24 10/09/24 10/09/24 History (Jardiance) ferrous gluconate 324 mg (38 mg 324 mg PO DAILY 10/09/24 10/09/24 10/09/24 History iron) tablet furosemide 40 mg tablet 40 mg PO DAILY 10/09/24 10/09/24 10/09/24 History linaclotide 145 mcg capsule 145 mcg PO DAILY 10/09/24 10/09/24 10/09/24 History (Linzess) mirtazapine 15 mg tablet 22.5 mg PO BEDTIME 10/09/24 10/09/24 10/09/24 History omeprazole 40 mg capsule,delayed 40 mg PO BID@0630,1630 10/09/24 10/09/24 10/09/24 History release Physical Exam 2 Vital Signs: Vital Signs: Last Vital Signs Temp 96.9 F 10/09/24 07:59 Pulse 70 10/09/24 07:59 Resp 18 10/09/24 07:59 BP 116/46 L 10/09/24 07:59 Pulse Ox 94 10/09/24 07:59 O2 Del Method Room Air 10/09/24 07:59 BMI result Body Mass Index 37.4 Const: General: cooperative HEENT: Head: Yes normal to inspection, Yes normocephalic and Yes atraumatic Eyes: Conjunctivae: conjunctivae normal Neck: Neck: Yes normal visual inspection and Yes trachea midline Chest: Chest palpation & inspection: normal inspection of the chest Resp: Effort & Inspection: normal respiratory effort Cardio: Rate: regular rate GI: Inspection: Yes normal to inspection Psych: Appearance: grossly normal Results Labs 10/09/24 07:24 10/09/24 07:24 Labs: Abnormal lab results 10/08/24 10/08/24 10/08/24 Range/Units 17:32 17:44 21:05 RBC 3.39 L (4.20-5.50) X10*6/uL Hgb 9.2 L (12.0-16.0) g/dl Hct 29.5 L (37.0-47.0) % RDW 18.0 H (11.0-16.0) % Plt Count 111 L D (160-400) X10*3/uL Immature Gran % (Auto) 1.8 H (0.0-0.4) % Neut % (Auto) 80.4 H (45-73) % Lymph % (Auto) 12.7 L (20-40) % Lymph # (Auto) 0.8 L (1.2-4.9) X10*3/uL Abs Immat Gran (auto) 0.11 H (0.00-0.03) X10*3/uL Absolute Nucleated RBC 0.030 H (0.0-0.012) X10*3/uL Nucleated RBC % (auto) 0.5 H (0.0-0.2) /100WBC PT 21.2 H (10.9-12.4) SEC INR 1.8 H (0.9-1.1) VBG HCO3 (22-26) mmol/L Potassium 5.4 H 5.4 H (3.3-5.1) mmol/L Chloride 112 H 114 H (96-108) mmol/L Carbon Dioxide 21 L (22-29) mmol/L Anion Gap 7 L 10 L (12-20) BUN 20 H 19 H (9-16) mg/dL Random Glucose 190 H (60-115) mg/dL AST 51 H (5-31) U/L ALT 58 H (0-31) U/L Alkaline Phosphatase 170 H (39-117) U/L C-Reactive Protein 1.74 H (< or = 0.50) mg/dL Total Protein 6.1 L (6.5-8.0) g/dL Albumin 3.3 L (3.5-5.0) g/dL Urine Glucose (UA) >=1000 H (Negative) mg/dL Urine Blood Small (1+) H (Negative) Ur Leukocyte Esterase Large (3+) H (Negative) Urine RBC 3-5 H (0-2) /HPF Urine WBC >50 H (0-5) /HPF 10/08/24 Range/Units 21:10 RBC (4.20-5.50) X10*6/uL Hgb (12.0-16.0) g/dl Hct (37.0-47.0) % RDW (11.0-16.0) % Plt Count (160-400) X10*3/uL Immature Gran % (Auto) (0.0-0.4) % Neut % (Auto) (45-73) % Lymph % (Auto) (20-40) % Lymph # (Auto) (1.2-4.9) X10*3/uL Abs Immat Gran (auto) (0.00-0.03) X10*3/uL Absolute Nucleated RBC (0.0-0.012) X10*3/uL Nucleated RBC % (auto) (0.0-0.2) /100WBC PT (10.9-12.4) SEC INR (0.9-1.1) VBG HCO3 21 L (22-26) mmol/L Potassium (3.3-5.1) mmol/L Chloride (96-108) mmol/L Carbon Dioxide (22-29) mmol/L Anion Gap (12-20) BUN (9-16) mg/dL Random Glucose (60-115) mg/dL AST (5-31) U/L ALT (0-31) U/L Alkaline Phosphatase (39-117) U/L C-Reactive Protein (< or = 0.50) mg/dL Total Protein (6.5-8.0) g/dL Albumin (3.5-5.0) g/dL Urine Glucose (UA) (Negative) mg/dL Urine Blood (Negative) Ur Leukocyte Esterase (Negative) Urine RBC (0-2) /HPF Urine WBC (0-5) /HPF Short CBC 10/08/24 Range/Units 17:32 WBC 6.0 (4.8-10.8) X10*3/uL Hgb 9.2 L (12.0-16.0) g/dl Hct 29.5 L (37.0-47.0) % Plt Count 111 L D (160-400) X10*3/uL BMP 10/08/24 10/08/24 17:32 21:05 Sodium 138 140 Potassium 5.4 H 5.4 H Chloride 112 H 114 H Carbon Dioxide 24 21 L BUN 20 H 19 H Creatinine 1.35 1.19 Calcium 9.4 D 9.1 Liver Function 10/08/24 Range/Units 17:32 Total Bilirubin 0.2 (0.0-1.0) mg/dL Direct Bilirubin < 0.2 (0.0-0.5) mg/dL AST 51 H (5-31) U/L ALT 58 H (0-31) U/L Alkaline Phosphatase 170 H (39-117) U/L Albumin 3.3 L (3.5-5.0) g/dL Urine 10/08/24 Range/Units 17:44 Urine Color Yellow Urine Appearance Turbid Urine pH 5.5 (5.0-9.0) Ur Specific [place] 1.010 (1.005-1.025) Urine Protein Negative (Neg-Trace) mg/dL Urine Glucose (UA) >=1000 H (Negative) mg/dL Imaging Abdomen CT scan report/results: report reviewed and image reviewed CT scan - pelvis: report reviewed and image reviewed Additional studies: Date of Service: 10/08/24 CLINICAL HISTORY: abdomional pain, hypothermia CT abdomen and pelvis with contrast Comparison: CT - CT ABDOMEN PELVIS W IV CON - 10/08/24 18:33 EDT Findings: The heart is mildly enlarged. Trace right effusion. Mild interlobular septal thickening and regions of probable atelectasis. The liver, gallbladder, spleen and adrenal glands demonstrate no acute process. Similar to prior, there is a calculus within the proximal right ureter, coronal 36. This measures approximately 4 mm. There is mild right hydronephrosis. No left-sided ureteral calculus. The bladder is mildly thick-walled and there is stranding about the bladder. No bowel obstruction or free air. Severe atherosclerotic disease of the aorta. No acute osseous abnormality detected. Impression: The bladder is mildly thick-walled and there is stranding about the bladder. Correlation for cystitis. There is a 4 mm calculus within the proximal right ureter with mild right hydronephrosis. Assessment and Plan (1) Urinary tract infection: Qualifiers: Hematuria presence: without hematuria Urinary tract infection type: a cute cystitis Qualified Code(s): N30.00 - Acute cystitis without hematuria Status: Acute (2) Ureteral stone: Status: Acute (3) Hydronephrosis, right: Status: Acute Plan Cystoscopy right ureteral stent. Procedures Date of Service Date of Service: 10/09/24
[2024-10-09 08:18] LABS: MANUAL DIFF FLAG NO
[2024-10-09 08:29] LABS: Basophils Percent Auto 0.3 % (0-2); Eosinophils Absolute Auto 0.1 X10*3/uL (0.0-0.4); Eosinophils Percent Auto 0.9 % (0-4); Hematocrit 30.8 % (37.0-47.0); Hemoglobin 9.5 g/dl (12.0-16.0); Imm Gran Abs Auto 0.29 X10*3/uL (0.00-0.03); Imm Gran Pct Auto 3.7 % (0.0-0.4); Lymphocytes Percent Auto 12.6 % (20-40); Mean Corpuscular HGB Conc 30.8 g/dl (31.0-35.0); Mean Corpuscular Hemoglobin 26.8 pg (27.0-33.0); Mean Corpuscular Volume 86.8 fL (80.0-98.0); Mean Platelet Volume 12.3 fL (9.4-12.3); Monocytes Absolute Auto 0.4 X10*3/uL (0.1-1.2); Monocytes Percent Auto 5.2 % (2-11); NRBC Pct Auto 0.6 /100WBC (0.0-0.2); Neutrophils Absolute Auto 6.1 x10*3/uL (2.0-8.3); Neutrophils Percent Auto 77.3 % (45-73); Platelet Count 118 X10*3/uL (160-400); Red Blood Count 3.55 X10*6/uL (4.20-5.50); White Blood Count 7.8 X10*3/uL (4.8-10.8)
[2024-10-09] MEDS: 0.9 % Sodium Chloride Flush 3 ML SYRINGE IVFLUSH ×3 (08:39→21:24)
[2024-10-09 08:40] LABS: Estimated Average Glucose 117 mg/dL; Hemoglobin A1C 98.0906 umol/L; Hemoglobin A1c % 5.7 % (<6.0); Total Hemoglobin (HGBA1C) 2556.4042 umol/L
[2024-10-09 08:50] LABS: Anion Gap 13 (12-20); Blood Urea Nitrogen 17 mg/dL (9-16); Calcium 9.2 mg/dL (8.4-10.2); Carbon Dioxide 20 mmol/L (22-29); Chloride 115 mmol/L (96-108); Creatinine Clr Calc Pharmacy 37.7; Estimated Glomerular Filt Rate 41; Glucose Random 71 mg/dL (60-115); Potassium 5.5 mmol/L (3.3-5.1); Sodium 142 mmol/L (135-145)
[2024-10-09 09:08] LABS: TSH reflex Free T4 3.67 uIU/mL (0.32-4.0)
--- NOTE | 2024-10-09 09:51 | MHC.CM.PN ---
IMM 10/09/24, Pt lives with her dtr, she has Dementia, family takes care of her. There is not a HCP completed, family requested to complete it now, but pt. has advanced Dementia, so it is not able to be done now. PCP confirmed: Dr. Jeffrey. For DME, pt has walker, raised toilet seat, tub bench. Family will transport her home at DC. Pt has used [facility] services after hosp stay in Aug 2024. DCP: home with family care. CM to follow for DC needs.
[2024-10-09] MEDS: Lactated Ringers 1,000 ML 80 ML IVCONT ×2 (10:06→21:20)
[2024-10-09 10:25] LABS: Glucose, Whole Blood 73 mg/dL (60-115)
--- NOTE | 2024-10-09 11:04 | HO.ANESPROP2 ---
[facility] Active Problems Active Problems: All Active Problems Hydronephrosis, right (Acute) Ureteral stone (Acute) Dementia (Acute) Sepsis (Acute) Bradycardia (Acute) Hypothermia (Acute) Calculus of proximal right ureter (Acute) Urinary tract infection (Acute) Hyperkalemia (Acute) CKD (chronic kidney disease) (Acute) Dysphagia (Acute) Diverticulitis (Acute) Diarrhea (Acute) Obesity (BMI 30-39.9) (Chronic) UTI (urinary tract infection) (Acute) Abdominal bloating (Acute) Chronic idiopathic constipation (Acute) Epigastric pain (Chronic) JOVANNI (obstructive sleep apnea) (Acute) Hyperlipidemia (Acute) GERD (gastroesophageal reflux disease) (Acute) Asthma (Acute) CHF exacerbation (Acute) Atrial fibrillation (Acute) Urinary incontinence (Acute) Hypertension (Acute) Chronic diastolic heart failure (Acute) Lymphedema (Acute) Varicose veins of right lower extremity with inflammation (Acute) Osteoarthritis of right knee (Acute) Past Medical History Medical History Renal insufficiency Epigastric pain Tubular adenoma of colon Preop cardiovascular exam Urinary urgency Pneumonia Hospital discharge follow-up Asthma MARIA R (acute kidney injury) GERD (gastroesophageal reflux disease) Diabetes Osteoarthritis Hyperlipidemia Chronic diastolic heart failure Hypertension JOVANNI (obstructive sleep apnea) Functional capacity: uses cane/walker Patient : No Family History Family History Father HTN (hypertension) Mother HTN (hypertension) CVD (cardiovascular disease) Daughter Bone cancer Father Cancer Family history of problems with anesthesia: No Surgical History Surgical History Hx of cataract surgery Status post total knee replacement, right History of arthroplasty of right knee Hx of colonoscopy H/O: hysterectomy History of salpingoophorectomy History of tonsillectomy History of Problems with Anesthesia: No Social History Social History Household Members: Family Housing: House Are you a primary patient care to a significant other at home: No Do you presently have visiting nurse or other home services: No Unable to assess alcohol history related to: Unknown Alcohol intake: never Comment: Advised to remove Patient Tobacco Use Status: Never used Tobacco e-Cigarette/Vaping Use: Never Used Second Hand Smoke Exposure: No service: No Current occupational status: retired Current occupation: Right handed Meds Allergies Allergy/AdvReac Type Severity Reaction Status Date / Time Penicillins [PENICILLINS] Allergy Intermediate NAUSEA/HIVE Verified 10/08/24 16:36 S metformin AdvReac Unknown Diarrhea Verified 10/08/24 16:36 Active Medications: Current Medications Acetaminophen (Acetaminophen 325 Mg Tablet) 650 mg PO Q6H PRN PRN Reason: Pain, Mild 1-3,fever,headache Calcium Carbonate (Calcium Carbonate 750 Mg Tab.Chew) 750 mg PO Q4H PRN PRN Reason: Heartburn Ceftriaxone Sodium (Ceftriaxone Sodium 1 Gm Vial) 1 gm IVPUSH Q24H [facility] Lactated Ringer's (Lr) 1,000 mls @ 80 mls/hr IVCONT .[id number] [facility] Last Admin: 10/09/24 10:06 Dose: 80 mls/hr Magnesium Hydroxide (Milk Of Magnesia 30 Ml Oral.Susp) 30 ml PO DAILY PRN PRN Reason: Constipation Melatonin (Melatonin 3 Mg Tablet) 6 mg PO BEDTIME PRN PRN Reason: Insomnia Last Admin: 10/08/24 23:58 Dose: 6 mg Ondansetron HCl (Ondansetron Hcl 4 Mg/2 Ml Vial) 4 mg IVPUSH Q8H PRN PRN Reason: Nausea and Vomiting Pantoprazole Sodium (Pantoprazole Sodium 40 Mg/10 Ml Vial) 40 mg IVPUSH DAILY@0630 [facility] Last Admin: 10/09/24 06:13 Dose: 40 mg Sodium Chloride (0.9 % Sodium Chloride Flush 3 Ml Syringe) 3 ml IVFLUSH QSHIFT [facility] Last Admin: 10/09/24 08:39 Dose: 3 ml Home Medications ?Medication ?Instructions ?Recorded ?Confirmed ?Last Taken ?Type oxybutynin chloride 5 mg tablet 5 mg PO BID 05/15/20 09/12/24 07/23/24 History cholecalciferol (vitamin D3) 25 1 tab PO DAILY 03/24/21 09/12/24 07/23/24 History mcg (1,000 unit) tablet fluticasone propionate 50 1 - 2 spray intranasal DAILY PRN 03/24/21 09/12/24 11/01/22 History mcg/actuation nasal Nasal Congestion spray,suspension cyanocobalamin (vitamin B-12) 1,000 mcg IM Q28D 11/02/22 09/12/24 07/26/24 History 1,000 mcg/mL injection solution cetirizine 10 mg tablet 10 mg PO DAILY 07/17/24 09/12/24 07/23/24 History amlodipine 10 mg tablet 10 mg PO BEDTIME 07/24/24 09/12/24 07/23/24 History calcium carbonate 600 mg PO DAILY 10/09/24 Unknown History cefpodoxime 200 mg tablet 200 mg PO BID 10/09/24 Unknown History docusate sodium 100 mg capsule 100 mg PO DAILY 10/09/24 Unknown History (Stool Softener) dulaglutide 1.5 mg/0.5 mL mg subcut QWEEK 10/09/24 Unknown History subcutaneous pen injector (Trulicity) empagliflozin 10 mg tablet 10 mg PO DAILY 10/09/24 Unknown History (Jardiance) ferrous gluconate 324 mg (38 mg 324 mg PO DAILY 10/09/24 Unknown History iron) tablet furosemide 40 mg tablet 40 mg PO DAILY 10/09/24 Unknown History linaclotide 145 mcg capsule 145 mcg PO DAILY 10/09/24 Unknown History (Linzess) mirtazapine 15 mg tablet 22.5 mg PO BEDTIME 10/09/24 Unknown History Exam Height,Weight and Vital Signs: Height 5 ft 2 in Weight 92.7 kg Last Vital Signs Temp 97.8 F 10/09/24 09:56 Pulse 67 10/09/24 09:56 Resp 14 10/09/24 09:56 BP 137/5 L 10/09/24 09:56 Pulse Ox 94 10/09/24 09:56 O2 Del Method Room Air 10/09/24 09:56 Pertinent Lab Results Pertinent Lab Results: Laboratory Tests 10/08/24 10/08/24 10/08/24 17:31 17:32 17:44 WBC 6.0 RBC 3.39 L Hgb 9.2 L Hct 29.5 L MCV 87.0 MCH 27.1 MCHC 31.2 RDW 18.0 H Plt Count 111 L D MPV 11.1 Immature Gran % (Auto) 1.8 H Neut % (Auto) 80.4 H Lymph % (Auto) 12.7 L Bartholomew % (Auto) 4.0 Eos % (Auto) 0.8 Baso % (Auto) 0.3 Lymph # (Auto) 0.8 L Bartholomew # (Auto) 0.2 Eos # (Auto) 0.1 Baso # (Auto) 0.0 Abs Immat Gran (auto) 0.11 H Absolute Neuts (auto) 4.8 Absolute Nucleated RBC 0.030 H Nucleated RBC % (auto) 0.5 H PT 21.2 H INR 1.8 H VBG pH VBG pCO2 VBG pO2 VBG HCO3 VBG O2 Saturation VBG Base Excess Sodium 138 Potassium 5.4 H Chloride 112 H Carbon Dioxide 24 Anion Gap 7 L BUN 20 H Creatinine 1.35 Estim Creat Clear Calc 35.2 Estimated GFR 38 POC Glucose Random Glucose 190 H Estimat Average Glucose Hemoglobin A1c % Lactic Acid 1.0 Calcium 9.4 D Magnesium 1.9 Total Bilirubin 0.2 Direct Bilirubin < 0.2 AST 51 H ALT 58 H Alkaline Phosphatase 170 H Troponin I High Sens < 2.7 C-Reactive Protein 1.74 H B-Natriuretic Peptide Total Protein 6.1 L Albumin 3.3 L Lipase 45 Procalcitonin 0.03 TSH Urine Color Yellow Urine Appearance Turbid Urine pH 5.5 Ur Specific [place] 1.010 Urine Protein Negative Urine Glucose (UA) >=1000 H Urine Ketones Negative Urine Blood Small (1+) H Urine Nitrite Negative Ur Leukocyte Esterase Large (3+) H Urine RBC 3-5 H Urine WBC >50 H Ur Squamous Epith Cells 6-10 Urine Bacteria 2+ Hyaline Casts 11-20 Urine Yeast Present Influenza Type A (PCR) NEGATIVE Influenza Type B (PCR) NEGATIVE RSV RNA Qual (PCR) NEGATIVE SARS-CoV-2 RNA (RT-PCR) NEGATIVE Blood Type Antibody Screen 10/08/24 10/08/24 10/08/24 17:50 21:05 21:10 WBC RBC Hgb Hct MCV MCH MCHC RDW Plt Count MPV Immature Gran % (Auto) Neut % (Auto) Lymph % (Auto) Bartholomew % (Auto) Eos % (Auto) Baso % (Auto) Lymph # (Auto) Bartholomew # (Auto) Eos # (Auto) Baso # (Auto) Abs Immat Gran (auto) Absolute Neuts (auto) Absolute Nucleated RBC Nucleated RBC % (auto) PT INR VBG pH 7.32 7.42 VBG pCO2 46 33 VBG pO2 63 65 VBG HCO3 24 21 L VBG O2 Saturation 92.0 94.0 VBG Base Excess -1.3 -1.9 Sodium 140 Potassium 5.4 H Chloride 114 H Carbon Dioxide 21 L Anion Gap 10 L BUN 19 H Creatinine 1.19 Estim Creat Clear Calc 40.0 Estimated GFR 44 POC Glucose Random Glucose 100 Estimat Average Glucose Hemoglobin A1c % Lactic Acid 1.0 Calcium 9.1 Magnesium Total Bilirubin Direct Bilirubin AST ALT Alkaline Phosphatase Troponin I High Sens 2.9 C-Reactive Protein B-Natriuretic Peptide 66 Total Protein Albumin Lipase Procalcitonin TSH Urine Color Urine Appearance Urine pH Ur Specific [place] Urine Protein Urine Glucose (UA) Urine Ketones Urine Blood Urine Nitrite Ur Leukocyte Esterase Urine RBC Urine WBC Ur Squamous Epith Cells Urine Bacteria Hyaline Casts Urine Yeast Influenza Type A (PCR) Influenza Type B (PCR) RSV RNA Qual (PCR) SARS-CoV-2 RNA (RT-PCR) Blood Type A Negative Antibody Screen NEGATIVE 10/09/24 10/09/24 07:24 10:12 WBC 7.8 RBC 3.55 L Hgb 9.5 L Hct 30.8 L MCV 86.8 MCH 26.8 L MCHC 30.8 L RDW 18.0 H Plt Count 118 L MPV 12.3 Immature Gran % (Auto) 3.7 H Neut % (Auto) 77.3 H Lymph % (Auto) 12.6 L Bartholomew % (Auto) 5.2 Eos % (Auto) 0.9 Baso % (Auto) 0.3 Lymph # (Auto) 1.0 L Bartholomew # (Auto) 0.4 Eos # (Auto) 0.1 Baso # (Auto) 0.0 Abs Immat Gran (auto) 0.29 H Absolute Neuts (auto) 6.1 Absolute Nucleated RBC 0.050 H Nucleated RBC % (auto) 0.6 H PT INR VBG pH VBG pCO2 VBG pO2 VBG HCO3 VBG O2 Saturation VBG Base Excess Sodium 142 Potassium 5.5 H Chloride 115 H Carbon Dioxide 20 L Anion Gap 13 BUN 17 H Creatinine 1.26 Estim Creat Clear Calc 37.7 Estimated GFR 41 POC Glucose 73 Random Glucose 71 Estimat Average Glucose 117 Hemoglobin A1c % 5.7 Lactic Acid Calcium 9.2 Magnesium Total Bilirubin Direct Bilirubin AST ALT Alkaline Phosphatase Troponin I High Sens C-Reactive Protein B-Natriuretic Peptide Total Protein Albumin Lipase Procalcitonin TSH 3.67 Urine Color Urine Appearance Urine pH Ur Specific [place] Urine Protein Urine Glucose (UA) Urine Ketones Urine Blood Urine Nitrite Ur Leukocyte Esterase Urine RBC Urine WBC Ur Squamous Epith Cells Urine Bacteria Hyaline Casts Urine Yeast Influenza Type A (PCR) Influenza Type B (PCR) RSV RNA Qual (PCR) SARS-CoV-2 RNA (RT-PCR) Blood Type Antibody Screen Airway Mallampati Class: III TM Dist: >3cm Neck ROM: Full Denture: Upper and Lower Heart: RRR Lungs: CTA Assessment and Plan Assessment Anesthesia Assessment: Anesthesia Plan Discussed and Chart Reviewed Final Anesthetic Review Family History of Problems with Anesthesia: No History of Problems with Anesthesia: No NPO: Yes ASA Class: III and Emergency Final Preanesthetic Review: Meds/Allgs Chart Reviewed, Consent Obtained/Reviewed and Anes Risks/Benef Reviewed Patient Risk: Intermediate Procedure Risk: Low Anesthetic Plan Anesthetic Plan: GA Disposition: Standard PACU
--- NOTE | 2024-10-09 11:21 | PHA.MEDREC ---
Pharmacy Consult ? Medication Reconciliation Pharmacy has completed the medication reconciliation. Spoke to patients daughter Rina through academic program specialist service (Abigail)
--- NOTE | 2024-10-09 11:22 | PHA.MEDREC ---
Addendum entered by Dayana Griffin RP 10/09/24 15:09: last dose for b-12 injection was 09/19/24 Addendum entered by Dayana Griffin [facility] 10/09/24 11:33: Reviewed by [facility] Original Note: Pharmacy Consult ? Medication Reconciliation Pharmacy has completed the medication reconciliation. Spoke to patients daughter over the phone through auto appraiser service (Abigail) to confirm med list. Daughter was able to confirm all of patients medication. Daughter states that Trulicity has been discontinued. Took off med list rec. Daughter states patient took all her morning medication but still need evening dose.
[2024-10-09] MEDS: ceFAZolin Sodium/Dextrose,Iso 2 GM/50 ML PIGGYBACK IV (12:20)
--- NOTE | 2024-10-09 12:33 | P.PNIM_ITS ---
Subjective Subjective Date of Service: 10/09/24 Review of Systems Follow up renal calculi Unable to gather any information with the patient's history of dementia and acute encephalopathy Physical Exam 2 Vital Signs: Vital Signs: Last Vital Signs Temp 97.8 F 10/09/24 09:56 Pulse 67 10/09/24 09:56 Resp 14 10/09/24 09:56 BP 137/5 L 10/09/24 09:56 Pulse Ox 94 10/09/24 09:56 O2 Del Method Room Air 10/09/24 09:56 BMI result Body Mass Index 37.4 Appearing in no acute distress lung sounds are clear to auscultation heart regular rate rhythm, clear S1, S2 positive bowel sounds, abdomen is soft, nontender neuro patient is alert, confused Objective Data Active Medications Acetaminophen (Acetaminophen 325 Mg Tablet) 650 mg PO Q6H PRN PRN Reason: Pain, Mild 1-3,fever,headache Calcium Carbonate (Calcium Carbonate 750 Mg Tab.Chew) 750 mg PO Q4H PRN PRN Reason: Heartburn Ceftriaxone Sodium (Ceftriaxone Sodium 1 Gm Vial) 1 gm IVPUSH Q24H [facility] Fentanyl (Fentanyl Citrate/Pf 100 Mcg/2 Ml Vial) 25 mcg IVPUSH Q5M PRN PRN Reason: Pain, Moderate to Severe (Pain Scale 4-10) Stop: 10/09/24 17:09 Lactated Ringer's (Lr) 1,000 mls @ 80 mls/hr IVCONT .[id number] [facility] Last Admin: 10/09/24 10:06 Dose: 80 mls/hr Documented By: KEERTHI Magnesium Hydroxide (Milk Of Magnesia 30 Ml Oral.Susp) 30 ml PO DAILY PRN PRN Reason: Constipation Melatonin (Melatonin 3 Mg Tablet) 6 mg PO BEDTIME PRN PRN Reason: Insomnia Last Admin: 10/08/24 23:58 Dose: 6 mg Documented By: CHICA Naloxone HCl (Naloxone Hcl 0.4 Mg/Ml Vial) 0.04 mg IVPUSH Q5M PRN PRN Reason: Excessive sedation or RR < 8 Ondansetron HCl (Ondansetron Hcl 4 Mg/2 Ml Vial) 4 mg IVPUSH Q8H PRN PRN Reason: Nausea and Vomiting Ondansetron HCl (Ondansetron Hcl 4 Mg/2 Ml Vial) 4 mg IVPUSH ONCE PRN PRN Reason: Nausea and Vomiting Stop: 10/09/24 17:09 Pantoprazole Sodium (Pantoprazole Sodium 40 Mg/10 Ml Vial) 40 mg IVPUSH DAILY@0630 [facility] Last Admin: 10/09/24 06:13 Dose: 40 mg Documented By: CARIE Sodium Chloride (0.9 % Sodium Chloride Flush 3 Ml Syringe) 3 ml IVFLUSH QSHIFT [facility] Last Admin: 10/09/24 08:39 Dose: 3 ml Documented By: LINHSCEL Labs 10/09/24 07:24 10/09/24 07:24 Labs: Laboratory Results - last 24 hr 10/08/24 10/08/24 10/08/24 17:31 17:32 17:44 MCV 87.0 MCH 27.1 MCHC 31.2 RDW 18.0 H Plt Count 111 L D MPV 11.1 Immature Gran % (Auto) 1.8 H Neut % (Auto) 80.4 H Lymph % (Auto) 12.7 L [place] % (Auto) 4.0 Eos % (Auto) 0.8 Baso % (Auto) 0.3 Lymph # (Auto) 0.8 L [place] # (Auto) 0.2 Eos # (Auto) 0.1 Baso # (Auto) 0.0 Abs Immat Gran (auto) 0.11 H Absolute Neuts (auto) 4.8 Absolute Nucleated RBC 0.030 H Nucleated RBC % (auto) 0.5 H PT 21.2 H INR 1.8 H VBG pH VBG pCO2 VBG pO2 VBG HCO3 VBG O2 Saturation VBG Base Excess Anion Gap 7 L Estim Creat Clear Calc 35.2 Estimated GFR 38 POC Glucose Random Glucose 190 H Estimat Average Glucose Hemoglobin A1c % Lactic Acid 1.0 Calcium 9.4 D Magnesium 1.9 Total Bilirubin 0.2 Direct Bilirubin < 0.2 AST 51 H ALT 58 H Alkaline Phosphatase 170 H C-Reactive Protein 1.74 H B-Natriuretic Peptide Total Protein 6.1 L Albumin 3.3 L Lipase 45 Procalcitonin 0.03 TSH Urine Color Yellow Urine Appearance Turbid Urine pH 5.5 Ur Specific [place] 1.010 Urine Protein Negative Urine Glucose (UA) >=1000 H Urine Ketones Negative Urine Blood Small (1+) H Urine Nitrite Negative Ur Leukocyte Esterase Large (3+) H Urine RBC 3-5 H Urine WBC >50 H Ur Squamous Epith Cells 6-10 Urine Bacteria 2+ Hyaline Casts 11-20 Urine Yeast Present Influenza Type A (PCR) NEGATIVE Influenza Type B (PCR) NEGATIVE RSV RNA Qual (PCR) NEGATIVE SARS-CoV-2 RNA (RT-PCR) NEGATIVE Blood Type Antibody Screen 10/08/24 10/08/24 10/08/24 17:50 21:05 21:10 MCV MCH MCHC RDW Plt Count MPV Immature Gran % (Auto) Neut % (Auto) Lymph % (Auto) [place] % (Auto) Eos % (Auto) Baso % (Auto) Lymph # (Auto) [place] # (Auto) Eos # (Auto) Baso # (Auto) Abs Immat Gran (auto) Absolute Neuts (auto) Absolute Nucleated RBC Nucleated RBC % (auto) PT INR VBG pH 7.32 7.42 VBG pCO2 46 33 VBG pO2 63 65 VBG HCO3 24 21 L VBG O2 Saturation 92.0 94.0 VBG Base Excess -1.3 -1.9 Anion Gap 10 L Estim Creat Clear Calc 40.0 Estimated GFR 44 POC Glucose Random Glucose 100 Estimat Average Glucose Hemoglobin A1c % Lactic Acid 1.0 Calcium 9.1 Magnesium Total Bilirubin Direct Bilirubin AST ALT Alkaline Phosphatase C-Reactive Protein B-Natriuretic Peptide 66 Total Protein Albumin Lipase Procalcitonin TSH Urine Color Urine Appearance Urine pH Ur Specific [place] Urine Protein Urine Glucose (UA) Urine Ketones Urine Blood Urine Nitrite Ur Leukocyte Esterase Urine RBC Urine WBC Ur Squamous Epith Cells Urine Bacteria Hyaline Casts Urine Yeast Influenza Type A (PCR) Influenza Type B (PCR) RSV RNA Qual (PCR) SARS-CoV-2 RNA (RT-PCR) Blood Type A Negative Antibody Screen NEGATIVE 10/09/24 10/09/24 07:24 10:12 MCV 86.8 MCH 26.8 L MCHC 30.8 L RDW 18.0 H Plt Count 118 L MPV 12.3 Immature Gran % (Auto) 3.7 H Neut % (Auto) 77.3 H Lymph % (Auto) 12.6 L [place] % (Auto) 5.2 Eos % (Auto) 0.9 Baso % (Auto) 0.3 Lymph # (Auto) 1.0 L [place] # (Auto) 0.4 Eos # (Auto) 0.1 Baso # (Auto) 0.0 Abs Immat Gran (auto) 0.29 H Absolute Neuts (auto) 6.1 Absolute Nucleated RBC 0.050 H Nucleated RBC % (auto) 0.6 H PT INR VBG pH VBG pCO2 VBG pO2 VBG HCO3 VBG O2 Saturation VBG Base Excess Anion Gap 13 Estim Creat Clear Calc 37.7 Estimated GFR 41 POC Glucose 73 Random Glucose 71 Estimat Average Glucose 117 Hemoglobin A1c % 5.7 Lactic Acid Calcium 9.2 Magnesium Total Bilirubin Direct Bilirubin AST ALT Alkaline Phosphatase C-Reactive Protein B-Natriuretic Peptide Total Protein Albumin Lipase Procalcitonin TSH 3.67 Urine Color Urine Appearance Urine pH Ur Specific [place] Urine Protein Urine Glucose (UA) Urine Ketones Urine Blood Urine Nitrite Ur Leukocyte Esterase Urine RBC Urine WBC Ur Squamous Epith Cells Urine Bacteria Hyaline Casts Urine Yeast Influenza Type A (PCR) Influenza Type B (PCR) RSV RNA Qual (PCR) SARS-CoV-2 RNA (RT-PCR) Blood Type Antibody Screen Microbiology Microbiology Results: Microbiology 10/08/24 Unknown Urine Culture - Preliminary Urine clean catch - Clean Catch Midstream Culture in progress. Assessment and Plan (1) Bradycardia: Status: Acute (2) CKD (chronic kidney disease): Status: Acute Plan 78-year-old female Dominican-speaking only with past medical history advanced dementia, diastolic heart failure, atrial fibrillation on eliquis,, JOVANNI not on CPAP, anemia, CKD -3B, hypertension, hyperlipidemia, vitamin-D deficiency, constipation, GERD, urinary incontinence, osteoarthritis with right knee repair, hysterectomy, and obesity was recently on GLP 1 up until 2 months ago. Admitted for sepsis related to UTI, nephrolithiasis of R ureter with mild hydronephrosis Agitation with history of dementia Likely secondary to sepsis, hospitalization, hospital delirium Seroquel 25 mg once Re-evaluate for return of symptoms Calculus proximal R ureter with mild hydronephrosis s/p cystoscopy, right retrograde, right stent insertion, urethral dilation 10/09/24 urology following Sepsis secondary to Calculus proximal R ureter with mild hydronephrosis hypothermia, bradycardia Bear Hugger, temp rising, Mental status at baseline per family noting pt has dementia s/p IVF Ceftriaxone Follow urine and blood cultures Eliquis on hold Bradycardia. Resolved Likely secondary to sepsis hx of AFIB on eliquis Continue telemetry Hold BB (coreg) Normal TSH MG 1.9 Hyperkalemia lokelma follow BMP CKD 3B Chronic, pt follows with nephrology Monitor renal fx Avoid hypotension, nephrotoxic medications Chronic Diastolic HF Low sodium diet Telemetry Hold BB for noted bradycardia Hypertension continue amlodipine Dementia Pt is calm, no hx of agitation or elopement, pt lives with family Fall risk is elevated DVT prophylaxis with SCD boots for now Quality Stroke Does the patient have a stroke diagnosis?: No Reason for No Anti-thrombotic by Day Two: Contraindicated VTE Prior VTE?: No VTE Risk Level:: Medical - moderate - high VTE Device Contraindication: N/A - Device Ordered VTE Drug Contraindication: Treatment Not Indicated
--- NOTE | 2024-10-09 12:40 | HO.ANESPROP2 ---
[facility] Active Problems Active Problems: All Active Problems Hydronephrosis, right (Acute) Ureteral stone (Acute) Dementia (Acute) Sepsis (Acute) Bradycardia (Acute) Hypothermia (Acute) Calculus of proximal right ureter (Acute) Urinary tract infection (Acute) Hyperkalemia (Acute) CKD (chronic kidney disease) (Acute) Dysphagia (Acute) Diverticulitis (Acute) Diarrhea (Acute) Obesity (BMI 30-39.9) (Chronic) UTI (urinary tract infection) (Acute) Abdominal bloating (Acute) Chronic idiopathic constipation (Acute) Epigastric pain (Chronic) JOVANNI (obstructive sleep apnea) (Acute) Hyperlipidemia (Acute) GERD (gastroesophageal reflux disease) (Acute) Asthma (Acute) CHF exacerbation (Acute) Atrial fibrillation (Acute) Urinary incontinence (Acute) Hypertension (Acute) Chronic diastolic heart failure (Acute) Lymphedema (Acute) Varicose veins of right lower extremity with inflammation (Acute) Osteoarthritis of right knee (Acute) Past Medical History Medical History Renal insufficiency Epigastric pain Tubular adenoma of colon Preop cardiovascular exam Urinary urgency Pneumonia Hospital discharge follow-up Asthma MARIA R (acute kidney injury) GERD (gastroesophageal reflux disease) Diabetes Osteoarthritis Hyperlipidemia Chronic diastolic heart failure Hypertension JOVANNI (obstructive sleep apnea) Functional capacity: bed bound Family History Family History Father HTN (hypertension) Mother HTN (hypertension) CVD (cardiovascular disease) Daughter Bone cancer Father Cancer Family history of problems with anesthesia: No Surgical History Surgical History Hx of cataract surgery Status post total knee replacement, right History of arthroplasty of right knee Hx of colonoscopy H/O: hysterectomy History of salpingoophorectomy History of tonsillectomy History of Problems with Anesthesia: No Social History Social History Household Members: Family Housing: House Are you a primary child care group leader to a significant other at home: No Do you presently have visiting nurse or other home services: No Unable to assess alcohol history related to: Unknown Alcohol intake: never Comment: Advised to remove Patient Tobacco Use Status: Never used Tobacco e-Cigarette/Vaping Use: Never Used Second Hand Smoke Exposure: No service: No Current occupational status: retired Current occupation: Right handed Meds Allergies Allergy/AdvReac Type Severity Reaction Status Date / Time Penicillins [PENICILLINS] Allergy Intermediate NAUSEA/HIVE Verified 10/08/24 16:36 S metformin AdvReac Unknown Diarrhea Verified 10/08/24 16:36 Active Medications: Current Medications Acetaminophen (Acetaminophen 325 Mg Tablet) 650 mg PO Q6H PRN PRN Reason: Pain, Mild 1-3,fever,headache Calcium Carbonate (Calcium Carbonate 750 Mg Tab.Chew) 750 mg PO Q4H PRN PRN Reason: Heartburn Ceftriaxone Sodium (Ceftriaxone Sodium 1 Gm Vial) 1 gm IVPUSH Q24H [facility] Fentanyl (Fentanyl Citrate/Pf 100 Mcg/2 Ml Vial) 25 mcg IVPUSH Q5M PRN PRN Reason: Pain, Moderate to Severe (Pain Scale 4-10) Stop: 10/09/24 17:09 Lactated Ringer's (Lr) 1,000 mls @ 80 mls/hr IVCONT .[id number] [facility] Last Admin: 10/09/24 10:06 Dose: 80 mls/hr Magnesium Hydroxide (Milk Of Magnesia 30 Ml Oral.Susp) 30 ml PO DAILY PRN PRN Reason: Constipation Melatonin (Melatonin 3 Mg Tablet) 6 mg PO BEDTIME PRN PRN Reason: Insomnia Last Admin: 10/08/24 23:58 Dose: 6 mg Naloxone HCl (Naloxone Hcl 0.4 Mg/Ml Vial) 0.04 mg IVPUSH Q5M PRN PRN Reason: Excessive sedation or RR < 8 Ondansetron HCl (Ondansetron Hcl 4 Mg/2 Ml Vial) 4 mg IVPUSH Q8H PRN PRN Reason: Nausea and Vomiting Ondansetron HCl (Ondansetron Hcl 4 Mg/2 Ml Vial) 4 mg IVPUSH ONCE PRN PRN Reason: Nausea and Vomiting Stop: 10/09/24 17:09 Pantoprazole Sodium (Pantoprazole Sodium 40 Mg/10 Ml Vial) 40 mg IVPUSH DAILY@0630 [facility] Last Admin: 10/09/24 06:13 Dose: 40 mg Sodium Chloride (0.9 % Sodium Chloride Flush 3 Ml Syringe) 3 ml IVFLUSH QSHIFT [facility] Last Admin: 10/09/24 08:39 Dose: 3 ml Home Medications ?Medication ?Instructions ?Recorded ?Confirmed ?Last Taken ?Type oxybutynin chloride 5 mg tablet 5 mg PO BID 05/15/20 10/09/24 10/09/24 History cholecalciferol (vitamin D3) 25 1 tab PO DAILY 03/24/21 10/09/24 07/23/24 History mcg (1,000 unit) tablet fluticasone propionate 50 1 - 2 spray intranasal DAILY PRN 03/24/21 10/09/24 10/09/24 History mcg/actuation nasal Nasal Congestion spray,suspension cyanocobalamin (vitamin B-12) 1,000 mcg IM Q28D 11/02/22 10/09/24 10/09/24 History 1,000 mcg/mL injection solution cetirizine 10 mg tablet 10 mg PO DAILY 07/17/24 10/09/24 10/09/24 History amlodipine 10 mg tablet 10 mg PO BEDTIME 07/24/24 10/09/24 10/09/24 History calcium carbonate 600 mg PO DAILY 10/09/24 10/09/24 10/09/24 History cefpodoxime 200 mg tablet 200 mg PO BID 10/09/24 10/09/24 10/09/24 History docusate sodium 100 mg capsule 100 mg PO DAILY 10/09/24 10/09/24 10/09/24 History (Stool Softener) empagliflozin 10 mg tablet 10 mg PO DAILY 10/09/24 10/09/24 10/09/24 History (Jardiance) ferrous gluconate 324 mg (38 mg 324 mg PO DAILY 10/09/24 10/09/24 10/09/24 History iron) tablet furosemide 40 mg tablet 40 mg PO DAILY 10/09/24 10/09/24 10/09/24 History linaclotide 145 mcg capsule 145 mcg PO DAILY 10/09/24 10/09/24 10/09/24 History (Linzess) mirtazapine 15 mg tablet 22.5 mg PO BEDTIME 10/09/24 10/09/24 10/09/24 History omeprazole 40 mg capsule,delayed 40 mg PO BID@0630,1630 10/09/24 10/09/24 10/09/24 History release Exam Height,Weight and Vital Signs: Height 5 ft 2 in Weight 92.7 kg Last Vital Signs Temp 97.8 F 10/09/24 09:56 Pulse 67 10/09/24 09:56 Resp 14 10/09/24 09:56 BP 137/5 L 10/09/24 09:56 Pulse Ox 94 10/09/24 09:56 O2 Del Method Room Air 10/09/24 09:56 Pertinent Lab Results Pertinent Lab Results: Laboratory Tests 10/08/24 10/08/24 10/08/24 17:31 17:32 17:44 WBC 6.0 RBC 3.39 L Hgb 9.2 L Hct 29.5 L MCV 87.0 MCH 27.1 MCHC 31.2 RDW 18.0 H Plt Count 111 L D MPV 11.1 Immature Gran % (Auto) 1.8 H Neut % (Auto) 80.4 H Lymph % (Auto) 12.7 L [place] % (Auto) 4.0 Eos % (Auto) 0.8 Baso % (Auto) 0.3 Lymph # (Auto) 0.8 L [place] # (Auto) 0.2 Eos # (Auto) 0.1 Baso # (Auto) 0.0 Abs Immat Gran (auto) 0.11 H Absolute Neuts (auto) 4.8 Absolute Nucleated RBC 0.030 H Nucleated RBC % (auto) 0.5 H PT 21.2 H INR 1.8 H VBG pH VBG pCO2 VBG pO2 VBG HCO3 VBG O2 Saturation VBG Base Excess Sodium 138 Potassium 5.4 H Chloride 112 H Carbon Dioxide 24 Anion Gap 7 L BUN 20 H Creatinine 1.35 Estim Creat Clear Calc 35.2 Estimated GFR 38 POC Glucose Random Glucose 190 H Estimat Average Glucose Hemoglobin A1c % Lactic Acid 1.0 Calcium 9.4 D Magnesium 1.9 Total Bilirubin 0.2 Direct Bilirubin < 0.2 AST 51 H ALT 58 H Alkaline Phosphatase 170 H Troponin I High Sens < 2.7 C-Reactive Protein 1.74 H B-Natriuretic Peptide Total Protein 6.1 L Albumin 3.3 L Lipase 45 Procalcitonin 0.03 TSH Urine Color Yellow Urine Appearance Turbid Urine pH 5.5 Ur Specific [place] 1.010 Urine Protein Negative Urine Glucose (UA) >=1000 H Urine Ketones Negative Urine Blood Small (1+) H Urine Nitrite Negative Ur Leukocyte Esterase Large (3+) H Urine RBC 3-5 H Urine WBC >50 H Ur Squamous Epith Cells 6-10 Urine Bacteria 2+ Hyaline Casts 11-20 Urine Yeast Present Influenza Type A (PCR) NEGATIVE Influenza Type B (PCR) NEGATIVE RSV RNA Qual (PCR) NEGATIVE SARS-CoV-2 RNA (RT-PCR) NEGATIVE Blood Type Antibody Screen 10/08/24 10/08/24 10/08/24 17:50 21:05 21:10 WBC RBC Hgb Hct MCV MCH MCHC RDW Plt Count MPV Immature Gran % (Auto) Neut % (Auto) Lymph % (Auto) [place] % (Auto) Eos % (Auto) Baso % (Auto) Lymph # (Auto) [place] # (Auto) Eos # (Auto) Baso # (Auto) Abs Immat Gran (auto) Absolute Neuts (auto) Absolute Nucleated RBC Nucleated RBC % (auto) PT INR VBG pH 7.32 7.42 VBG pCO2 46 33 VBG pO2 63 65 VBG HCO3 24 21 L VBG O2 Saturation 92.0 94.0 VBG Base Excess -1.3 -1.9 Sodium 140 Potassium 5.4 H Chloride 114 H Carbon Dioxide 21 L Anion Gap 10 L BUN 19 H Creatinine 1.19 Estim Creat Clear Calc 40.0 Estimated GFR 44 POC Glucose Random Glucose 100 Estimat Average Glucose Hemoglobin A1c % Lactic Acid 1.0 Calcium 9.1 Magnesium Total Bilirubin Direct Bilirubin AST ALT Alkaline Phosphatase Troponin I High Sens 2.9 C-Reactive Protein B-Natriuretic Peptide 66 Total Protein Albumin Lipase Procalcitonin TSH Urine Color Urine Appearance Urine pH Ur Specific [place] Urine Protein Urine Glucose (UA) Urine Ketones Urine Blood Urine Nitrite Ur Leukocyte Esterase Urine RBC Urine WBC Ur Squamous Epith Cells Urine Bacteria Hyaline Casts Urine Yeast Influenza Type A (PCR) Influenza Type B (PCR) RSV RNA Qual (PCR) SARS-CoV-2 RNA (RT-PCR) Blood Type A Negative Antibody Screen NEGATIVE 10/09/24 10/09/24 07:24 10:12 WBC 7.8 RBC 3.55 L Hgb 9.5 L Hct 30.8 L MCV 86.8 MCH 26.8 L MCHC 30.8 L RDW 18.0 H Plt Count 118 L MPV 12.3 Immature Gran % (Auto) 3.7 H Neut % (Auto) 77.3 H Lymph % (Auto) 12.6 L [place] % (Auto) 5.2 Eos % (Auto) 0.9 Baso % (Auto) 0.3 Lymph # (Auto) 1.0 L [place] # (Auto) 0.4 Eos # (Auto) 0.1 Baso # (Auto) 0.0 Abs Immat Gran (auto) 0.29 H Absolute Neuts (auto) 6.1 Absolute Nucleated RBC 0.050 H Nucleated RBC % (auto) 0.6 H PT INR VBG pH VBG pCO2 VBG pO2 VBG HCO3 VBG O2 Saturation VBG Base Excess Sodium 142 Potassium 5.5 H Chloride 115 H Carbon Dioxide 20 L Anion Gap 13 BUN 17 H Creatinine 1.26 Estim Creat Clear Calc 37.7 Estimated GFR 41 POC Glucose 73 Random Glucose 71 Estimat Average Glucose 117 Hemoglobin A1c % 5.7 Lactic Acid Calcium 9.2 Magnesium Total Bilirubin Direct Bilirubin AST ALT Alkaline Phosphatase Troponin I High Sens C-Reactive Protein B-Natriuretic Peptide Total Protein Albumin Lipase Procalcitonin TSH 3.67 Urine Color Urine Appearance Urine pH Ur Specific [place] Urine Protein Urine Glucose (UA) Urine Ketones Urine Blood Urine Nitrite Ur Leukocyte Esterase Urine RBC Urine WBC Ur Squamous Epith Cells Urine Bacteria Hyaline Casts Urine Yeast Influenza Type A (PCR) Influenza Type B (PCR) RSV RNA Qual (PCR) SARS-CoV-2 RNA (RT-PCR) Blood Type Antibody Screen Assessment and Plan Final Anesthetic Review Family History of Problems with Anesthesia: No History of Problems with Anesthesia: No
--- NOTE | 2024-10-09 13:12 | P.OP_ITS ---
Operative Note Operative Note Date of Service: 10/09/24 Narrative: PreOperative Diagnosis:?? right ureteral stone, UTI, right hydronephrosis Post Operative Diagnosis:?? ?right ureteral stone, UTI, right hydronephrosis. Urethral stensosis Procedure: Cystoscopy, right retrograde right stent insertion, size 7 fr by 24 cm Urethral Dilation Surgeon:?Dr Jennifer Salas Anesthesia:? General Procedure: After informed consent was verified the patient was brought to the operating placed on the OR table in supine position.? General Anesthesia was administered per protocol.? The patient was placed in lithotomy position, prepped and draped in the usual sterile fashion.? Safety pause time-out and side of surgery con firmed.? Antibiotics confirmed. Attempts to placed 22 [place] cystoscope met with resistance due to atrophic and stenotic urethral meatus. [place] female sounds were used to dilate urethral meatus 18 [place] sequentially up to a 22 [place]. A 22 [place] cystoscope was inserted transurethrally, urine was sent for culture. The bladder was visualized.? There was edematous changes of the bladder mucosa, Resulting in some distortion of the trigone. A 70 degree lens was used to have better visualization of the trigone the ureteral orifices were identified. The 30 degree lens was replaced into the cystoscope and a open- ended ureteral catheter along with a guidewire was passed into the right ureter. A retrograde was done noting a filling defect in the proximal ureter. With the guidewire in good position a double-J stent was then passed over the guidewire size 7 [place] by 24 cm. The guide wire was removed. The bladder was emptied.? The rigid cystoscope was removed. ? A 16 [place] Burrows catheter was placed to gravity drainage. The patient tolerated the procedure well and was brought to the recovery room in stable condition. Complications: None EBL: minimal (<5 mL) Drains: 16 fr burrows, Ureteral stent as dictated above
[2024-10-09 14:37] LABS: Glucose, Whole Blood 82 mg/dL (60-115)
[2024-10-09] MEDS: cefTRIAXone sodium 1 GM VIAL IVPUSH (15:42)
[2024-10-09] MEDS: LORazepam 2 MG/ML VIAL 0.25 MG IVPUSH (16:18)
[2024-10-09] MEDS: vancomycin HCL 1,000 MG, vancomycin HCL 750 MG in 0.9 % Sodium Chloride 500 ML 267.5 MG IV (17:00)
[2024-10-10] VITALS (10 sets, daily range): BP systolic 95–169; BP diastolic 51–83; PULSE 40–109; RESP 14–20; TEMP 36.1–37.3; O2SAT 94–99
--- NOTE | 2024-10-10 | ECG_ITS ---
Test Reason : bradycardia Blood Pressure : */* mmHG Vent. Rate : 36 BPM Atrial Rate : 36 BPM P-R Int : 150 ms QRS Dur : 82 ms QT Int : 462 ms P-R-T Axes : 62 17 -4 degrees QTcB Int : 357 ms Marked sinus bradycardia with sinus arrhythmia ST & T wave abnormality, consider anterior ischemia Abnormal ECG When compared with ECG of 09-Oct-2024 16:54, No significant change was found Referred By: Leatha Singleton Electronically Signed By: REYNOLD IYER
[2024-10-10] MEDS: Pantoprazole Sodium 40 MG/10 ML VIAL IVPUSH (06:10)
--- NOTE | 2024-10-10 08:43 | HO.POSTANES ---
Post Anesthesia Evaluation Post Anesthesia Evaluation Date of Service: 10/10/24 Vital Signs: Vital Signs Temp Pulse Resp BP Pulse Ox O2 Del Method O2 Flow Rate 10/10/24 08:21 100 169/72 H 96 10/10/24 07:40 99.2 F 10/10/24 07:03 98.9 F 100 20 169/72 H 96 Nasal Cannula 3 10/10/24 04:00 98 F 109 H 18 124/79 96 Nasal Cannula 3 10/10/24 00:00 97.9 F 101 H 16 140/75 H 96 Anesthesia: General Mental Status: Awake Pain Control: Satisfactory Nausea/Vomiting: None Hydration: Adequate Anesthesia-Related Issues: No Anes. Related Issues
[2024-10-10] MEDS: 0.9 % Sodium Chloride Flush 3 ML SYRINGE IVFLUSH (10:17)
[2024-10-10 10:18] LABS: Anion Gap 12 (12-20); Blood Urea Nitrogen 20 mg/dL (9-16); Calcium 9.5 mg/dL (8.4-10.2); Carbon Dioxide 20 mmol/L (22-29); Chloride 118 mmol/L (96-108); Creatinine Clr Calc Pharmacy 32.3; Estimated Glomerular Filt Rate 34; Glucose Random 89 mg/dL (60-115); Potassium 5.2 mmol/L (3.3-5.1); Sodium 145 mmol/L (135-145)
[2024-10-10 10:19] LABS: Creatinine Clr Calc Pharmacy 31.9; Estimated Glomerular Filt Rate 34
--- NOTE | 2024-10-10 11:11 | MHC.SL.SWA ---
Speech Pathologist Impression: Unable to assess functional swallow Risk of Aspiration Due to: Reduced cognition Hx of dysphagia Dysphasia Diet Status: Liquid Consistency and Strategies for Safe Swallow: Liquid Intake Recommendation: NPO Liquid Intake Strategies: Solid Food Consistency: Dietary Recommendations: NPO Additional Modifications to Solid Foods: Oral Medication Intake: NPO Please contact the pharmacy regarding appropriate crushable or liquid drug formulations that are available whenever modified delivery is recommended. Compensatory Strategies and Precautions to be Taken for Safe Swallow: Supervision While Eating and Drinking for Safe Swallow: PO with CUSTODIAN SUPERVISOR Foods to Avoid: Swallowing Recommended Treatments: Compens. Strategy Educat. Recommendation for Speech: Inpatient Speech Therapy Comment: Pt daughter at bedside, nightman present. Pt daughter reported pt historically has difficulty with swallowing when she is inpatient, and confusion considered primary difficulty. Pt non-verbally responsive with minimal eye-contact. Pt did not follow simple cues. Vocalizations occurring intermittently, which daughter notes is a new behaviors. CUSTODIAN SUPERVISOR unable to assess pt swallow d/t poor responsiveness, reflexive swallow infrequent but pt mouth clear of pooled secretions. CUSTODIAN SUPERVISOR provided demonstration of using oral swabs for moisture/thermal stim. Pt daughter endorsed using oral swabs with pt before. Pt daughter verbalized understanding of and agreed with recommendation for NPO strict pending clinical bedside swallow evaluation. RN consulted, RN and PA texted via secure communication that CUSTODIAN SUPERVISOR may be called to assess when pt more alert. Frequency/Duration: Daily M-F Date Range for Service Req: Timeline to reassess: Farmworker [employer] Clinican/Clinical Fellow: No Supervisory Statement: I have reviewed and agree with the student/clinical fellow's documentation: N/A Speech Language Pathologist: Neha Sauer M.S., [facility]-CUSTODIAN SUPERVISOR
--- NOTE | 2024-10-10 11:53 | P.PNIM_ITS ---
Subjective Subjective Date of Service: 10/10/24 Review of Systems Follow up renal calculi Unable to gather any information with the patient's history of dementia and acute encephalopathy NPO for now due to dysphagia Physical Exam 2 Vital Signs: Vital Signs: Last Vital Signs Temp 98.5 F 10/10/24 11:02 Pulse 101 H 10/10/24 11:02 Resp 18 10/10/24 11:02 BP 160/83 H 10/10/24 11:02 Pulse Ox 96 10/10/24 11:02 O2 Del Method Nasal Cannula 10/10/24 11:02 O2 Flow Rate 3 10/10/24 11:02 BMI result Body Mass Index 37.4 Appearing in no acute distress lung sounds are clear to auscultation heart regular rate rhythm, clear S1, S2 positive bowel sounds, abdomen is soft, nontender neuro patient is alert x3, no focal deficits Objective Data Active Medications Acetaminophen (Acetaminophen 325 Mg Tablet) 650 mg PO Q6H PRN PRN Reason: Pain, Mild 1-3,fever,headache Amlodipine Besylate (Amlodipine Besylate 10 Mg Tablet) 10 mg PO BEDTIME [facility]; Protocol Last Admin: 10/09/24 21:20 Dose: Not Given Documented By: CARIE Non-Admin Reason: lethargy, unable to swallow pills safetly Atorvastatin Calcium (Atorvastatin Calcium 40 Mg Tablet) 40 mg PO DAILY [facility] Last Admin: 10/10/24 10:15 Dose: Not Given Documented By: NIK Non-Admin Reason: NPO Calcium Carbonate (Calcium Carbonate 750 Mg Tab.Chew) 750 mg PO Q4H PRN PRN Reason: Heartburn Calcium Carbonate (Calcium Oyster Shell Elemental 500 Mg Tablet) 500 mg PO DAILY [facility] Last Admin: 10/10/24 10:15 Dose: Not Given Documented By: NIK Non-Admin Reason: NPO Carvedilol (Carvedilol 25 Mg Tablet) 25 mg PO BID [facility]; Protocol Last Admin: 10/10/24 10:15 Dose: Not Given Documented By: NIK Non-Admin Reason: NPO Ceftriaxone Sodium (Ceftriaxone Sodium 1 Gm Vial) 1 gm IVPUSH Q24H [facility] Last Admin: 10/09/24 15:42 Dose: 1 gm Documented By: NIK Cyanocobalamin (Cyanocobalamin (Vitamin B-12) 1,000 Mcg/Ml Vial) 1,000 mcg IM Q28D [facility] Docusate Sodium (Docusate Sodium 100 Mg Capsule) 100 mg PO DAILY [facility] Last Admin: 10/10/24 10:16 Dose: Not Given Documented By: NIK Non-Admin Reason: NPO Ferrous Sulfate (Ferrous Sulfate 324 Mg Tablet.) 324 mg PO DAILY [facility] Last Admin: 10/10/24 10:16 Dose: Not Given Documented By: NIK Non-Admin Reason: NPO Lactated Ringer's (Lr) 1,000 mls @ 80 mls/hr IVCONT .[id number] [facility] Last Admin: 10/09/24 21:20 Dose: 80 mls/hr Documented By: CARIE Vancomycin HCl 1,000 mg/ (Sodium Chloride) 270 mls @ 270 mls/hr IV Q24H [facility] Loratadine (Loratadine 10 Mg Tablet) 10 mg PO DAILY [facility] Last Admin: 10/10/24 10:16 Dose: Not Given Documented By: NIK Non-Admin Reason: NPO Magnesium Hydroxide (Milk Of Magnesia 30 Ml Oral.Susp) 30 ml PO DAILY PRN PRN Reason: Constipation Melatonin (Melatonin 3 Mg Tablet) 6 mg PO BEDTIME PRN PRN Reason: Insomnia Last Admin: 10/08/24 23:58 Dose: 6 mg Documented By: CHICA Mirtazapine (Mirtazapine 7.5 Mg Tablet) 22.5 mg PO BEDTIME [facility] Last Admin: 10/09/24 21:21 Dose: Not Given Documented By: CARIE Non-Admin Reason: lethargy, unable to swallow pills safely Naloxone HCl (Naloxone Hcl 0.4 Mg/Ml Vial) 0.04 mg IVPUSH Q5M PRN PRN Reason: Excessive sedation or RR < 8 Non-Formulary Medication (Linaclotide [Linzess]) 145 mcg PO DAILY [facility] Omeprazole (Omeprazole 40 Mg Capsule.) 40 mg PO BID@0630,1630 [facility] Last Admin: 10/10/24 05:49 Dose: Not Given Documented By: CARIE Non-Admin Reason: lethargic, cannot safely swallow medications Ondansetron HCl (Ondansetron Hcl 4 Mg/2 Ml Vial) 4 mg IVPUSH Q8H PRN PRN Reason: Nausea and Vomiting Pantoprazole Sodium (Pantoprazole Sodium 40 Mg/10 Ml Vial) 40 mg IVPUSH DAILY@0630 [facility] Last Admin: 10/10/24 06:10 Dose: 40 mg Documented By: CARIE Pharmacy Consult (Consult Rx Vancomycin Dosing) 1 each MISCELLANE DAILY PRN PRN Reason: Consult order Sodium Chloride (0.9 % Sodium Chloride Flush 3 Ml Syringe) 3 ml IVFLUSH QSHIFT [facility] Last Admin: 10/10/24 10:17 Dose: 3 ml Documented By: NIK Vitamin D (Cholecalciferol (Vitamin D3) 25 Mcg Tablet) 25 mcg PO DAILY [facility] Last Admin: 10/10/24 10:15 Dose: Not Given Documented By: NIK Non-Admin Reason: NPO Labs 10/09/24 07:24 10/10/24 09:34 Labs: Laboratory Results - last 24 hr 10/09/24 10/10/24 10/10/24 14:32 09:34 09:34 Anion Gap 12 Estim Creat Clear Calc 31.9 32.3 Estimated GFR 34 POC Glucose 82 Random Glucose Calcium 10/10/24 09:34 Anion Gap Estim Creat Clear Calc Estimated GFR 34 POC Glucose Random Glucose 89 Calcium 9.5 Microbiology Microbiology Results: Microbiology 10/09/24 12:44 Urine Culture - Preliminary Urine Other - Kidney Right No growth to date. 10/08/24 Unknown Urine Culture - Preliminary Urine clean catch - Clean Catch Midstream Culture in progress. 10/08/24 17:31 Blood Culture - Preliminary Blood - Venous No growth after 24 hours. 10/08/24 17:31 Blood Culture - Preliminary Blood - Venous No growth after 24 hours. Assessment and Plan (1) Bradycardia: Status: Acute (2) CKD (chronic kidney disease): Status: Acute Plan 78-year-old female Yoruba-speaking only with past medical history advanced dementia, diastolic heart failure, atrial fibrillation on eliquis,, JOVANNI not on CPAP, anemia, CKD -3B, hypertension, hyperlipidemia, vitamin-D deficiency, constipation, GERD, urinary incontinence, osteoarthritis with right knee repair, hysterectomy, and obesity was recently on GLP 1 up until 2 months ago. Admitted for sepsis related to UTI, nephrolithiasis of R ureter with mild hydronephrosis Dysphagia Speech therapy consultation recommended NPO for now will re-eval when more awake MARIA R likely secondary to vancomycin vanco stopped monitor BMP consider nephro consultation if worsening renal function Acute encephalopathy Likely secondary to sepsis, hospitalization, hospital delirium monitor mental status Calculus proximal R ureter with mild hydronephrosis s/p cystoscopy, right retrograde, right stent insertion, urethral dilation 10/09/24 urology following Sepsis secondary to Calculus proximal R ureter with mild hydronephrosis . Sepsis resolved hypothermia, bradycardia Bear Hugger, temp rising, Mental status at baseline per family noting pt has dementia s/p IVF Ceftriaxone Follow urine and blood cultures Bradycardia. Resolved Likely secondary to sepsis, hypothermia hx of AFIB on eliquis Continue telemetry Hold BB (coreg) Normal TSH MG 1.9 Hyperkalemia lokelma follow BMP Paroxysmal atrial fibrillation Resume Coreg as bradycardia has resolved Resume Eliquis patient is status post stenting CKD 3B Chronic, pt follows with nephrology Monitor renal fx Avoid hypotension, nephrotoxic medications Chronic Diastolic HF Low sodium diet Telemetry Hold BB for noted bradycardia Hypertension continue amlodipine Dementia Pt is calm, no hx of agitation or elopement, pt lives with family Fall risk is elevated DVT prophylaxis with Eliquis Quality Stroke Does the patient have a stroke diagnosis?: No Reason for No Anti-thrombotic by Day Two: Contraindicated VTE Prior VTE?: No VTE Risk Level:: Medical - moderate - high VTE Device Contraindication: N/A - Device Ordered VTE Drug Contraindication: Treatment Not Indicated
[2024-10-10] MEDS: Lactated Ringers 1,000 ML 80 ML IVCONT (12:56)
--- NOTE | 2024-10-10 13:10 | MHC.CM.PN ---
EMR reviewed and per MD rounds, pt is not medically ceared for discharge due to management of encephalopathy, pt NPO with speech therapist evaluating pt.
[2024-10-10] MEDS: cefTRIAXone sodium 1 GM VIAL IVPUSH (16:56)
[2024-10-10] MEDS: Ketorolac Tromethamine 15 MG/ML VIAL IVPUSH (17:56)
[2024-10-10] MEDS: LORazepam 2 MG/ML VIAL 1 MG IVPUSH (20:54)
[2024-10-10] MEDS: carvediloL 25 MG TABLET PO (20:56)
[2024-10-10] MEDS: amLODIPine Besylate 10 MG TABLET PO (20:57)
[2024-10-10] MEDS: Mirtazapine 7.5 MG TABLET 22.5 MG PO (20:57)
[2024-10-10] MEDS: Apixaban 5 MG TABLET PO (20:58)
--- NOTE | 2024-10-10 22:10 | PM.EVENT ---
Event Note Date of Service: 10/10/24 Event Note: Nurse reported heart rate sustaining in the 40s. Blood pressure okay. Will obtain EKG and consult Cardiology. Closely monitor on tele. Obtaining TSH Time Spent With Patient Time: Total time managing care of this patient today ____ minutes.
[2024-10-10] MEDS: Atropine Sulfate 1 MG/10 ML SYRINGE IVPUSH (23:59)
[2024-10-11] VITALS (10 sets, daily range): BP systolic 111–146; BP diastolic 58–73; PULSE 50–76; RESP 16–22; TEMP 34.1–36.8; O2SAT 91–97
[2024-10-11] MEDS: Albumin Human 25 % 100 ML 133.33 ML IV ×2 (00:03→01:00)
[2024-10-11] MEDS: Pantoprazole Sodium 40 MG/10 ML VIAL IVPUSH (05:54)
[2024-10-11] MEDS: Lactated Ringers 1,000 ML 80 ML IVCONT ×2 (05:56→17:03)
[2024-10-11 09:28] LABS: Hematocrit 27.6 % (37.0-47.0); Hemoglobin 8.6 g/dl (12.0-16.0); Mean Corpuscular HGB Conc 31.2 g/dl (31.0-35.0); Mean Corpuscular Volume 86.5 fL (80.0-98.0); Mean Platelet Volume 11.6 fL (9.4-12.3); NRBC Pct Auto 0.8 /100WBC (0.0-0.2); Platelet Count 105 X10*3/uL (160-400); Red Blood Count 3.19 X10*6/uL (4.20-5.50); Red Cell Distribution Width 18.5 % (11.0-16.0); White Blood Count 5.9 X10*3/uL (4.8-10.8)
[2024-10-11 09:45] LABS: Anion Gap 10 (12-20); Blood Urea Nitrogen 19 mg/dL (9-16); Carbon Dioxide 23 mmol/L (22-29); Chloride 118 mmol/L (96-108); Creatinine Clr Calc Pharmacy 41.7; Estimated Glomerular Filt Rate 46; Glucose Random 70 mg/dL (60-115); Potassium 4.7 mmol/L (3.3-5.1); Sodium 146 mmol/L (135-145)
--- NOTE | 2024-10-11 10:13 | PM.CNCAR ---
History of Present Illness History of Present Illness Date of Service: 10/11/24 Chief complaint: weakness Narrative: This is a cardiology consultation regarding bradycardia. Patient is not able to give any information due to dementia. Family is at the bedside. It seems that she has advanced dementia and essentially bed-bound. Many comorbidities including diastolic heart failure, atrial fibrillation, chronic kidney disease among others. Current admission with diagnosis of sepsis, UTI, hypothermia. In this context, there was a decrease in heart rate last night and hence we are consulted. Patient is not able to obviously give any information. History is only from the chart and talking to family. Review of Systems Review of Systems: Unable to obtain [facility] Past Medical History Medical History Renal insufficiency Epigastric pain Tubular adenoma of colon Preop cardiovascular exam Urinary urgency Pneumonia Hospital discharge follow-up Asthma AMRIA R (acute kidney injury) GERD (gastroesophageal reflux disease) Diabetes Osteoarthritis Hyperlipidemia Chronic diastolic heart failure Hypertension JOVANNI (obstructive sleep apnea) Family History Family History Father HTN (hypertension) Mother HTN (hypertension) CVD (cardiovascular disease) Daughter Bone cancer Father Cancer Surgical History Surgical History Hx of cataract surgery Status post total knee replacement, right History of arthroplasty of right knee Hx of colonoscopy H/O: hysterectomy History of salpingoophorectomy History of tonsillectomy Social History Social History Household Members: Family Housing: House Are you a primary child care coordinator to a significant other at home: No Do you presently have visiting nurse or other home services: No Unable to assess alcohol history related to: Unknown Alcohol intake: never Comment: Advised to remove Patient Tobacco Use Status: Never used Tobacco e-Cigarette/Vaping Use: Never Used Second Hand Smoke Exposure: No service: No Current occupational status: retired Current occupation: Right handed Meds Allergies Allergy/AdvReac Type Severity Reaction Status Date / Time Penicillins [PENICILLINS] Allergy Intermediate NAUSEA/HIVE Verified 10/08/24 16:36 S metformin AdvReac Unknown Diarrhea Verified 10/08/24 16:36 Active Medications: Current Medications Acetaminophen (Acetaminophen 325 Mg Tablet) 650 mg PO Q6H PRN PRN Reason: Pain, Mild 1-3,fever,headache Amlodipine Besylate (Amlodipine Besylate 10 Mg Tablet) 10 mg PO BEDTIME [facility]; Protocol Last Admin: 10/10/24 20:57 Dose: 10 mg Apixaban (Apixaban 5 Mg Tablet) 5 mg PO BID [facility] Last Admin: 10/10/24 20:58 Dose: 5 mg Atorvastatin Calcium (Atorvastatin Calcium 40 Mg Tablet) 40 mg PO DAILY [facility] Last Admin: 10/11/24 09:00 Dose: Not Given Calcium Carbonate (Calcium Carbonate 750 Mg Tab.Chew) 750 mg PO Q4H PRN PRN Reason: Heartburn Calcium Carbonate (Calcium Oyster Shell Elemental 500 Mg Tablet) 500 mg PO DAILY [facility] Last Admin: 10/11/24 09:00 Dose: Not Given Ceftriaxone Sodium (Ceftriaxone Sodium 1 Gm Vial) 1 gm IVPUSH Q24H [facility] Last Admin: 10/10/24 16:56 Dose: 1 gm Cyanocobalamin (Cyanocobalamin (Vitamin B-12) 1,000 Mcg/Ml Vial) 1,000 mcg IM Q28D [facility] Docusate Sodium (Docusate Sodium 100 Mg Capsule) 100 mg PO DAILY [facility] Last Admin: 10/11/24 09:00 Dose: Not Given Ferrous Sulfate (Ferrous Sulfate 324 Mg Tablet.Dr) 324 mg PO DAILY [facility] Last Admin: 10/11/24 09:00 Dose: Not Given Lactated Ringer's (Lr) 1,000 mls @ 80 mls/hr IVCONT .[id number] [facility] Last Admin: 10/11/24 05:56 Dose: 80 mls/hr Ketorolac Tromethamine (Ketorolac Tromethamine 15 Mg/Ml Vial) 15 mg IVPUSH Q6H PRN PRN Reason: Pain, Moderate(Pain Scale 4-6) Stop: 10/14/24 17:28 Last Admin: 10/10/24 17:56 Dose: 15 mg Loratadine (Loratadine 10 Mg Tablet) 10 mg PO DAILY [facility] Last Admin: 10/11/24 09:00 Dose: Not Given Magnesium Hydroxide (Milk Of Magnesia 30 Ml Oral.Susp) 30 ml PO DAILY PRN PRN Reason: Constipation Melatonin (Melatonin 3 Mg Tablet) 6 mg PO BEDTIME PRN PRN Reason: Insomnia Last Admin: 10/08/24 23:58 Dose: 6 mg Mirtazapine (Mirtazapine 7.5 Mg Tablet) 22.5 mg PO BEDTIME [facility] Last Admin: 10/10/24 20:57 Dose: 22.5 mg Naloxone HCl (Naloxone Hcl 0.4 Mg/Ml Vial) 0.04 mg IVPUSH Q5M PRN PRN Reason: Excessive sedation or RR < 8 Non-Formulary Medication (Linaclotide [Linzess]) 145 mcg PO DAILY [facility] Omeprazole (Omeprazole 40 Mg Capsule.Dr) 40 mg PO BID@0630,1630 [facility] Last Admin: 10/11/24 05:55 Dose: Not Given Ondansetron HCl (Ondansetron Hcl 4 Mg/2 Ml Vial) 4 mg IVPUSH Q8H PRN PRN Reason: Nausea and Vomiting Pantoprazole Sodium (Pantoprazole Sodium 40 Mg/10 Ml Vial) 40 mg IVPUSH DAILY@0630 [facility] Last Admin: 10/11/24 05:54 Dose: 40 mg Pharmacy Consult (Consult Rx Vancomycin Dosing) 1 each MISCELLANE DAILY PRN PRN Reason: Consult order Sodium Chloride (0.9 % Sodium Chloride Flush 3 Ml Syringe) 3 ml IVFLUSH QSHIFT [facility] Last Admin: 10/11/24 09:00 Dose: Not Given Vitamin D (Cholecalciferol (Vitamin D3) 25 Mcg Tablet) 25 mcg PO DAILY [facility] Last Admin: 10/11/24 09:00 Dose: Not Given Home Medications ?Medication ?Instructions ?Recorded ?Confirmed ?Last Taken ?Type oxybutynin chloride 5 mg tablet 5 mg PO BID 05/15/20 10/09/24 10/09/24 History cholecalciferol (vitamin D3) 25 1 tab PO DAILY 03/24/21 10/09/24 10/09/24 History mcg (1,000 unit) tablet fluticasone propionate 50 1 - 2 spray intranasal DAILY PRN 03/24/21 10/09/24 10/09/24 History mcg/actuation nasal Nasal Congestion spray,suspension cyanocobalamin (vitamin B-12) 1,000 mcg IM Q28D 11/02/22 10/09/24 09/19/24 History 1,000 mcg/mL injection solution cetirizine 10 mg tablet 10 mg PO DAILY 07/17/24 10/09/24 10/09/24 History amlodipine 10 mg tablet 10 mg PO BEDTIME 07/24/24 10/09/24 10/09/24 History calcium carbonate 600 mg PO DAILY 10/09/24 10/09/24 10/09/24 History cefpodoxime 200 mg tablet 200 mg PO BID 10/09/24 10/09/24 10/09/24 History docusate sodium 100 mg capsule 100 mg PO DAILY 10/09/24 10/09/24 10/09/24 History (Stool Softener) empagliflozin 10 mg tablet 10 mg PO DAILY 10/09/24 10/09/24 10/09/24 History (Jardiance) ferrous gluconate 324 mg (38 mg 324 mg PO DAILY 10/09/24 10/09/24 10/09/24 History iron) tablet furosemide 40 mg tablet 40 mg PO DAILY 10/09/24 10/09/24 10/09/24 History linaclotide 145 mcg capsule 145 mcg PO DAILY 10/09/24 10/09/24 10/09/24 History (Linzess) mirtazapine 15 mg tablet 22.5 mg PO BEDTIME 10/09/24 10/09/24 10/09/24 History omeprazole 40 mg capsule,delayed 40 mg PO BID@0630,1630 10/09/24 10/09/24 10/09/24 History release Physical Exam Vital Signs: Vital Signs: Last Vital Signs Temp 97.0 F 10/11/24 08:00 Pulse 54 10/11/24 08:00 Resp 22 H 10/11/24 08:00 BP 143/61 H 10/11/24 08:00 Pulse Ox 97 10/11/24 09:18 O2 Del Method Room Air 10/11/24 09:18 O2 Flow Rate 2.5 10/11/24 08:00 BMI result Body Mass Index 37.4 Const: General: comfortable and no acute distress Orientation/consciousness: No patient oriented x3 HEENT: Other: Unremarkable Head: Yes normal to inspection Neck: Neck: Yes normal visual inspection Chest: Chest palpation & inspection: normal inspection of the chest Resp: Auscultation: clear to auscultation bilaterally Cardio: Palpation: normal PMI Heart sounds: S1 normal heart sound present, S2 normal heart sound present, no gallops, no murmurs and no rubs GI: Palpation (GI): Soft to palpation Back/Spine/Pelvis: Other: unremarkable Skin: General skin exam: no rashes or lesions noted Neuro: General: No patient oriented x3 Extrem: General: Yes normal to inspection Psych: Mental Status: mental status grossly abnormal Objective Labs and Meds 10/11/24 09:06 10/11/24 09:06 Lab results: Laboratory Results - last 24 hr 10/10/24 10/10/24 10/10/24 09:34 09:34 09:34 WBC RBC Hgb Hct MCV MCH MCHC RDW Plt Count MPV Absolute Nucleated RBC Nucleated RBC % (auto) Sodium 145 Potassium 5.2 H Chloride 118 H Carbon Dioxide 20 L Anion Gap 12 BUN 20 H Creatinine 1.49 H 1.47 H Estim Creat Clear Calc 31.9 32.3 Estimated GFR 34 Random Glucose Calcium 10/10/24 10/11/24 09:34 09:06 WBC 5.9 RBC 3.19 L Hgb 8.6 L Hct 27.6 L MCV 86.5 MCH 27.0 MCHC 31.2 RDW 18.5 H Plt Count 105 L MPV 11.6 Absolute Nucleated RBC 0.050 H Nucleated RBC % (auto) 0.8 H Sodium 146 H Potassium 4.7 Chloride 118 H Carbon Dioxide 23 Anion Gap 10 L BUN 19 H Creatinine 1.14 Estim Creat Clear Calc 41.7 Estimated GFR 34 46 Random Glucose 89 70 Calcium 9.5 10.0 ECG Interpretation: EKG from last night with sinus bradycardia at 36/Min; anterior and inferior T inversions; normal RI and corrected QT. anterior T inversions are more prominent in the current EKGs. Assessment and Plan (1) Bradycardia: Status: Acute Plan According to notes by her primary bag loader , has paroxysmal atrial fibrillation and chronic diastolic heart failure. High sensitivity troponin levels are within range. Home dose of beta-blockers listed as carvedilol 25 mg b.i.d.. Suspect sinus bradycardia could be related to ongoing medical issues including hypothermia. Okay to hold off on beta-blockers for the time being. Her heart rate is between 40s to 60s on telemetry at this time. There is a possibility of going back into atrial fibrillation without beta-blockers. Based on the trend of heart rates, can decide if he going to resume it or not. Discussed with May Johnson. Procedures Date of Service Date of Service: 10/11/24
--- NOTE | 2024-10-11 12:26 | P.PNIM_ITS ---
Subjective Subjective Date of Service: 10/11/24 Interval History: seen and examined this morning follow up for encephalopathy, hypothermia, UTI Overnight heart rate low, Coreg stopped received ativan overnight due to agitation - patient sleepy; history obtained from daughter at bedside Review of Systems unable to obtain any review of systems Physical Exam 2 Vital Signs: Vital Signs: Last Vital Signs Temp 93.4 F L 10/11/24 12:02 Pulse 54 10/11/24 12:14 Resp 22 H 10/11/24 12:14 BP 140/63 H 10/11/24 12:14 Pulse Ox 94 10/11/24 12:14 O2 Del Method Room Air 10/11/24 12:14 O2 Flow Rate 2.5 10/11/24 08:00 BMI result Body Mass Index 37.4 Const: Other: sleepy, not able to obtain ros Nutritional Appearance: obese Resp: Effort & Inspection: normal respiratory effort, no respiratory distress and no use of accessory muscles Cardio: Rate: bradycardic GI: Inspection: No distended Extrem: General: Yes no pedal edema Objective Data Active Medications Acetaminophen (Acetaminophen 325 Mg Tablet) 650 mg PO Q6H PRN PRN Reason: Pain, Mild 1-3,fever,headache Amlodipine Besylate (Amlodipine Besylate 10 Mg Tablet) 10 mg PO BEDTIME [facility]; Protocol Last Admin: 10/10/24 20:57 Dose: 10 mg Documented By: ARTHUR Apixaban (Apixaban 5 Mg Tablet) 5 mg PO BID [facility] Last Admin: 10/11/24 11:15 Dose: Not Given Documented By: ISRAEL Non-Admin Reason: Physician Held Med Atorvastatin Calcium (Atorvastatin Calcium 40 Mg Tablet) 40 mg PO DAILY [facility] Last Admin: 10/11/24 09:00 Dose: Not Given Documented By: ISRAEL Non-Admin Reason: Patient Condition Contraindication Calcium Carbonate (Calcium Carbonate 750 Mg Tab.Chew) 750 mg PO Q4H PRN PRN Reason: Heartburn Calcium Carbonate (Calcium Oyster Shell Elemental 500 Mg Tablet) 500 mg PO DAILY [facility] Last Admin: 10/11/24 09:00 Dose: Not Given Documented By: ISRAEL Non-Admin Reason: Patient Condition Contraindication Ceftriaxone Sodium (Ceftriaxone Sodium 1 Gm Vial) 1 gm IVPUSH Q24H [facility] Last Admin: 10/10/24 16:56 Dose: 1 gm Documented By: NIK Cyanocobalamin (Cyanocobalamin (Vitamin B-12) 1,000 Mcg/Ml Vial) 1,000 mcg IM Q28D [facility] Docusate Sodium (Docusate Sodium 100 Mg Capsule) 100 mg PO DAILY [facility] Last Admin: 10/11/24 09:00 Dose: Not Given Documented By: ISRAEL Non-Admin Reason: Patient Condition Contraindication Ferrous Sulfate (Ferrous Sulfate 324 Mg Tablet.Dr) 324 mg PO DAILY [facility] Last Admin: 10/11/24 09:00 Dose: Not Given Documented By: ISRAEL Non-Admin Reason: Patient Condition Contraindication Lactated Ringer's (Lr) 1,000 mls @ 80 mls/hr IVCONT .[id number] [facility] Last Admin: 10/11/24 11:18 Dose: Not Given Documented By: ISRAEL Non-Admin Reason: IV Running Ketorolac Tromethamine (Ketorolac Tromethamine 15 Mg/Ml Vial) 15 mg IVPUSH Q6H PRN PRN Reason: Pain, Moderate(Pain Scale 4-6) Stop: 10/14/24 17:28 Last Admin: 10/10/24 17:56 Dose: 15 mg Documented By: NIK Loratadine (Loratadine 10 Mg Tablet) 10 mg PO DAILY [facility] Last Admin: 10/11/24 09:00 Dose: Not Given Documented By: ISRAEL Non-Admin Reason: Patient Condition Contraindication Magnesium Hydroxide (Milk Of Magnesia 30 Ml Oral.Susp) 30 ml PO DAILY PRN PRN Reason: Constipation Melatonin (Melatonin 3 Mg Tablet) 6 mg PO BEDTIME PRN PRN Reason: Insomnia Last Admin: 10/08/24 23:58 Dose: 6 mg Documented By: CHICA Mirtazapine (Mirtazapine 7.5 Mg Tablet) 22.5 mg PO BEDTIME [facility] Last Admin: 10/10/24 20:57 Dose: 22.5 mg Documented By: ARTHUR Naloxone HCl (Naloxone Hcl 0.4 Mg/Ml Vial) 0.04 mg IVPUSH Q5M PRN PRN Reason: Excessive sedation or RR < 8 Non-Formulary Medication (Linaclotide [Linzess]) 145 mcg PO DAILY [facility] Omeprazole (Omeprazole 40 Mg Capsule.) 40 mg PO BID@0630,1630 [facility] Last Admin: 10/11/24 05:55 Dose: Not Given Documented By: ARTHUR Non-Admin Reason: Patient Refused Ondansetron HCl (Ondansetron Hcl 4 Mg/2 Ml Vial) 4 mg IVPUSH Q8H PRN PRN Reason: Nausea and Vomiting Pantoprazole Sodium (Pantoprazole Sodium 40 Mg/10 Ml Vial) 40 mg IVPUSH DAILY@0630 [facility] Last Admin: 10/11/24 05:54 Dose: 40 mg Documented By: ARTHUR Pharmacy Consult (Consult Rx Vancomycin Dosing) 1 each MISCELLANE DAILY PRN PRN Reason: Consult order Sodium Chloride (0.9 % Sodium Chloride Flush 3 Ml Syringe) 3 ml IVFLUSH QSHIFT [facility] Last Admin: 10/11/24 09:00 Dose: Not Given Documented By: ISRAEL Non-Admin Reason: IV Running Vitamin D (Cholecalciferol (Vitamin D3) 25 Mcg Tablet) 25 mcg PO DAILY [facility] Last Admin: 10/11/24 09:00 Dose: Not Given Documented By: ISRAEL Non-Admin Reason: Patient Condition Contraindication Labs 10/11/24 09:06 10/11/24 09:06 Labs: Laboratory Results - last 24 hr 10/11/24 09:06 MCV 86.5 MCH 27.0 MCHC 31.2 RDW 18.5 H Plt Count 105 L MPV 11.6 Absolute Nucleated RBC 0.050 H Nucleated RBC % (auto) 0.8 H Anion Gap 10 L Estim Creat Clear Calc 41.7 Estimated GFR 46 Random Glucose 70 Calcium 10.0 Microbiology Microbiology Results: Microbiology 10/09/24 12:44 Urine Culture - Final Urine Other - Kidney Right No growth. 10/08/24 Unknown Urine Culture - Final Urine clean catch - Clean Catch Midstream Klebsiella oxytoca Strep agalactiae (Grp B) 10/08/24 17:31 Blood Culture - Preliminary Blood - Venous No growth after 48 hours. 10/08/24 17:31 Blood Culture - Preliminary Blood - Venous No growth after 48 hours. Assessment and Plan (1) Hydronephrosis, right: Status: Acute (2) Bradycardia: Status: Acute (3) Hypothermia: Status: Acute Plan This is an 78-year-old Maltese-speaking female with past medical history advanced dementia, diastolic heart failure, atrial fibrillation on eliquis, JOVANNI not on CPAP, anemia, CKD -3B, hypertension, hyperlipidemia, vitamin-D deficiency, constipation, GERD, urinary incontinence, osteoarthritis with right knee repair, hysterectomy, and obesity was recently on GLP 1 up until 2 months ago. Admitted for sepsis related to UTI, nephrolithiasis of R ureter with mild hydronephrosis Hematuria ?due to stent placement H/H drifting down to 8.6/27.6 hold Eliquis. stop toradol follow H/H Dysphagia re-eval by speech, upgrade to NDD1 MARIA R on ckd3 likely secondary to vancomycin vanco stopped renal fxn back to baseline Acute encephalopathy Likely secondary to sepsis, hospitalization, hospital delirium monitor mental status Calculus proximal R ureter with mild hydronephrosis s/p cystoscopy, right retrograde, right stent insertion, urethral dilation 10/09/24 urology following Sepsis secondary to Calculus proximal R ureter with mild hydronephrosis hypothermia, bradycardia initially improved, now recurrent resume zaheer webster urine culture growing Klebsiella and group B strep continue IV ceftriaxone blood cultures negative to date thrombocytopenia likely due to acute illness follow CBC Bradycardia. recurrent. had improved, now bradycardic again Likely secondary to sepsis, hypothermia coreg had be held, resumed 10/10; now on hold again Normal TSH seen by cardiology - likely due to hypothermia/Coreg. not candidate for pacemaker pacer pads in place. Blood pressure stable Hyperkalemia lokelma follow BMP Paroxysmal atrial fibrillation recurrent bradycardia, hold coreg again hold Eliquis for hematuria Chronic Diastolic HF Low sodium diet Telemetry Hold BB for noted bradycardia Hypertension continue amlodipine DVT prophylaxis with Eliquis patient requires ongoing inpatient stay for management of hypothermia, UTI, hematuria, bradycardia requiring close monitoring and high risk for decompensation Quality Stroke Does the patient have a stroke diagnosis?: No Reason for No Anti-thrombotic by Day Two: Contraindicated VTE Prior VTE?: No VTE Risk Level:: Medical - moderate - high VTE Device Contraindication: N/A - Device Ordered VTE Drug Contraindication: Treatment Not Indicated
--- NOTE | 2024-10-11 13:14 | MHC.SL.SWA ---
Speech Pathologist Impression: Moderate-severe oral phayngeal dysphagia Risk of Aspiration Due to: Dysphasia Diet Status: Recommend START/UPGRADE diet to PUREE (NDD1) with THIN liquids (straws ok), pills crushed finely and put in puree. Patient needs 1-1 feed Liquid Consistency and Strategies for Safe Swallow: Liquid Intake Recommendation: Thin Liquid Intake Strategies: Small Sips Solid Food Consistency: Dietary Recommendations: Pureed (NDD1) Additional Modifications to Solid Foods: Purees by 1/4 tsp only, monitor for swallow (patient may pocket food), liquids ok by straw with close monitor. Patient needs pills FINELY ground and in puree. Oral Medication Intake: Crushed with Puree Please contact the pharmacy regarding appropriate crushable or liquid drug formulations that are available whenever modified delivery is recommended. Compensatory Strategies and Precautions to be Taken for Safe Swallow: Sitting Upright (90 deg) Liquids from Straw Small Bites and Sips Alternate Liquids/Solids Rate of Ingestion Change Oral Check Supervision While Eating and Drinking for Safe Swallow: Foods to Avoid: Swallowing Recommended Treatments: Compens. Strategy Educat. Recommendation for Speech: Inpatient Speech Therapy Comment: Patient seen yesterday, but due to level of alertness was not assessed and was continued NPO. Patient today was seen a.m. at that time too lethargic to assess, but when returned at Mid Day, with assistance from daughter, was able to adequately wake and assess. Per Daughter, patient at home eats a puree diet ( blended ) with thin liquids which she drinks with a straw. She also takes her pills ground in pudding, but pills must be ground fine. Patient at rest protrudes tongue exterior to mouth, with tongue appearing flaccid. However during attempts to give oral care (with patient mostly refusing), patient noted to protrude and move tongue laterally with normal appearing movement. Minimal verbalizations were severely dysarthric, though. Patient eventually accepted sip of water from spoon, with some escaping anteriorly, but propelled remainder and and initiated swallow with no clinical signs of aspiration. Patient then given water by straw, with patient producing a serials swallow on straw with mildly reduced coordination of suck/swallow, but no clinical signs of aspiration. Patient then tolerated small bites of puree, propelling bolus with tongue pumping, followed by swallow. On one trial, patient appeared to orally hold bolus, with encouragement from daughter (who noted she was pocketing) initiated swallow. Per daughter, patient needs to be closely monitored for pocketing and also all purees should be given in small amounts (1/4 tsp). Patient needs 1-1 feed. Recommend START/UPGRADE diet to PUREE (NDD1) with THIN liquids (straws ok), pills crushed finely and put in puree. MD/RD notified of recommendation by secure text, RN inperson. BLOGS MANAGER will continue to follow. Frequency/Duration: Daily M-F Date Range for Service Req: Timeline to reassess: Bumper Straightener Clinican/Clinical Fellow: No Supervisory Statement: I have reviewed and agree with the student/clinical fellow's documentation: N/A Speech Language Pathologist: Neha Sauer M.S., CCC-BLOGS MANAGER
[2024-10-11 13:28] LABS: ABG Base Excess -0.7 mmol/L; ABG HCO3 23 mmol/L (22-26); ABG pCO2 37 mmHg (32-45); ABG pO2 62 mmHg (83-108)
[2024-10-11 14:28] LABS: Hematocrit 25.8 % (37.0-47.0); Hemoglobin 8.3 g/dl (12.0-16.0)
[2024-10-11] MEDS: cefTRIAXone sodium 1 GM VIAL IVPUSH (16:58)
[2024-10-11] MEDS: Omeprazole 40 MG CAPSULE.DR PO (16:58)
[2024-10-11 20:46] LABS: Hematocrit 29.4 % (37.0-47.0); Hemoglobin 9.1 g/dl (12.0-16.0)
[2024-10-11] MEDS: amLODIPine Besylate 10 MG TABLET PO (20:58)
[2024-10-11] MEDS: LORazepam 2 MG/ML VIAL 1 MG IVPUSH (20:58)
[2024-10-12] VITALS (9 sets, daily range): BP systolic 115–154; BP diastolic 48–75; PULSE 36–75; RESP 14–24; TEMP 35.1–36.6; O2SAT 94–98
[2024-10-12] MEDS: OLANZapine 10 MG VIAL 5 MG IM (02:25)
[2024-10-12] MEDS: Pantoprazole Sodium 40 MG/10 ML VIAL IVPUSH (04:38)
[2024-10-12] MEDS: Lactated Ringers 1,000 ML 80 ML IVCONT (04:38)
--- NOTE | 2024-10-12 10:51 | MHC.SPEECHCO ---
Addendum entered and electronically signed by Lauryn Null MA, CCC-PROGRAMMING DIRECTOR 10/12/24 18:30: Per METEOROLOGICAL TECHNICIAN, patient refuses to eat and becomes aggressive with care. RN reports patient is lethargic at this time. PROGRAMMING DIRECTOR will continue to follow (Recc pureed diet and thin liquids). Original Note: Patient was sleeping as PROGRAMMING DIRECTOR arrived, but awoke quite easily. She was accompanied by 3 family members, this date reporting that patient normally eats regular food, was downgraded with this hospitalization. They also mention patient is not at her baseline. METEOROLOGICAL TECHNICIAN was present and reported patient ate a very tiny amount at breakfast. Patient was refusing oral intake, turning head away and covering her mouth with the blanket when PROGRAMMING DIRECTOR attempted to administer moistened swab and teaspoon food/liquid. Family then took the spoon attempting to encourage patient to eat, but patient began swinging arms and swatting. PROGRAMMING DIRECTOR will re-attempt dysphagia treatment later today.
--- NOTE | 2024-10-12 11:03 | P.PNCA_ITS ---
Subjective Subjective Date of Service: 10/12/24 Interval history: Patient is unresponsive and not able to give any information whatsoever. Discussed with family at the bedside. Review of Systems Review of Systems Unable to obtain Physical Exam Vital Signs: Last Vital Signs Temp 95.2 F L 10/12/24 08:00 Pulse 36 L 10/12/24 09:06 Resp 18 10/12/24 08:00 BP 136/48 L 10/12/24 09:06 Pulse Ox 94 10/12/24 08:00 O2 Del Method Room Air 10/12/24 08:00 O2 Flow Rate 2 10/12/24 00:00 BMI result Body Mass Index 37.4 Const Other: Not responsive General: comfortable and no acute distress Orientation/consciousness: No patient oriented x3 HEENT Other: Unremarkable Head: Yes normal to inspection Neck Neck: Yes normal visual inspection Chest Chest palpation & inspection: normal inspection of the chest Resp Auscultation: clear to auscultation bilaterally Cardio Palpation: normal PMI Heart sounds: S1 normal heart sound present, S2 normal heart sound present, no gallops, no murmurs and no rubs GI Palpation (GI): Soft to palpation Back/Spine/Pelvis Other: unremarkable Skin General skin exam: no rashes or lesions noted Neuro General: No patient oriented x3 Extrem General: Yes normal to inspection Psych Mental Status: mental status grossly abnormal Objective Labs and Meds 10/11/24 20:25 10/11/24 09:06 Lab results: Laboratory Results - last 24 hr 10/11/24 10/11/24 10/11/24 13:25 14:04 20:25 Hgb 8.3 L 9.1 L Hct 25.8 L 29.4 L O2 Saturation 93.0 ABG pH at Pt Temp 7.40 ABG pCO2 at Pt Temp 37 ABG pO2 at Pt Temp 62 L ABG HCO3 23 ABG Base Excess (Actual) -0.7 Progress Note: A&P Assessment and plan (1) Bradycardia: Status: Acute Plan According to notes by her primary youth probation officer , has paroxysmal atrial fibrillation and chronic diastolic heart failure. High sensitivity troponin levels are within range. Home dose of beta-blockers listed as carvedilol 25 mg b.i.d.. Suspect sinus bradycardia could be related to ongoing medical issues including hypothermia. She is still hypothermic with a temperature of 95.2 degrees. Additionally, she got sedated drugs and hence she is unresponsive and that also plays a significant role in bradycardia. She is off the Coreg at this time. Currently, heart rate is in the 30s but blood pressure is stable. Heart rate will improve once the temperature is back in the normal range and she is also reasonably awake. No absolute indication for pacemaker in this setting. Also considering her many comorbidities, consider goals of care discussion. Discussed with family at the bedside. Discussed with May Johnson. Time Spent With Patient Time: Total time managing care of this patient today ____ minutes. Progress Note: Quality Stroke Does the patient have a stroke diagnosis?: No Reason for No Anti-thrombotic by Day Two: Contraindicated Procedures Date of Service Date of Service: 10/12/24
--- NOTE | 2024-10-12 11:58 | P.PNIM_ITS ---
Subjective Subjective Date of Service: 10/12/24 Interval History: seen and examined this morning received ativan and zyprexa overnight for agitation, unarousable this am per report has been waking up intermittently and fighting with family/staff refused to eat, spitting out food HR variable unable to obtain ROS Physical Exam 2 Vital Signs: Vital Signs: Last Vital Signs Temp 95.2 F L 10/12/24 08:00 Pulse 51 10/12/24 11:40 Resp 20 10/12/24 11:40 BP 115/60 10/12/24 11:40 Pulse Ox 95 10/12/24 11:40 O2 Del Method Nasal Cannula 10/12/24 11:40 O2 Flow Rate 1.5 10/12/24 11:40 BMI result Body Mass Index 37.4 Const: Other: lethargic, unable to assess orientation Nutritional Appearance: obese Resp: Effort & Inspection: normal respiratory effort, no respiratory distress and no use of accessory muscles Cardio: Rate: bradycardic GI: Inspection: No distended Palpation (GI): Soft to palpation Neuro: Other: limited assessment due to mental status Objective Data Active Medications Acetaminophen (Acetaminophen 325 Mg Tablet) 650 mg PO Q6H PRN PRN Reason: Pain, Mild 1-3,fever,headache Amlodipine Besylate (Amlodipine Besylate 10 Mg Tablet) 10 mg PO BEDTIME [facility]; Protocol Last Admin: 10/11/24 20:58 Dose: 10 mg Documented By: ARTHUR Apixaban (Apixaban 5 Mg Tablet) 5 mg PO BID [facility] Last Admin: 10/11/24 11:15 Dose: Not Given Documented By: ISRAEL Non-Admin Reason: Physician Held Med Atorvastatin Calcium (Atorvastatin Calcium 40 Mg Tablet) 40 mg PO DAILY [facility] Last Admin: 10/12/24 10:15 Dose: Not Given Documented By: ISRAEL Non-Admin Reason: Patient Condition Contraindication Comments: patient too sleepy, 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 Calcium Carbonate (Calcium Carbonate 750 Mg Tab.Chew) 750 mg PO Q4H PRN PRN Reason: Heartburn Calcium Carbonate (Calcium Oyster Shell Elemental 500 Mg Tablet) 500 mg PO DAILY [facility] Last Admin: 10/12/24 10:15 Dose: Not Given Documented By: ISRAEL Non-Admin Reason: Patient Condition Contraindication Ceftriaxone Sodium (Ceftriaxone Sodium 1 Gm Vial) 1 gm IVPUSH Q24H [facility] Last Admin: 10/11/24 16:58 Dose: 1 gm Documented By: ISRAEL Cyanocobalamin (Cyanocobalamin (Vitamin B-12) 1,000 Mcg/Ml Vial) 1,000 mcg IM Q28D [facility] Docusate Sodium (Docusate Sodium 100 Mg Capsule) 100 mg PO DAILY [facility] Last Admin: 10/12/24 10:15 Dose: Not Given Documented By: SIRAEL Non-Admin Reason: Patient Condition Contraindication Ferrous Sulfate (Ferrous Sulfate 324 Mg Tablet.) 324 mg PO DAILY [facility] Last Admin: 10/12/24 10:15 Dose: Not Given Documented By: ISRAEL Non-Admin Reason: Patient Condition Contraindication Loratadine (Loratadine 10 Mg Tablet) 10 mg PO DAILY [facility] Last Admin: 10/12/24 10:15 Dose: Not Given Documented By: ISRAEL Non-Admin Reason: Patient Condition Contraindication Magnesium Hydroxide (Milk Of Magnesia 30 Ml Oral.Susp) 30 ml PO DAILY PRN PRN Reason: Constipation Melatonin (Melatonin 3 Mg Tablet) 6 mg PO BEDTIME PRN PRN Reason: Insomnia Last Admin: 10/08/24 23:58 Dose: 6 mg Documented By: CHICA Mirtazapine (Mirtazapine 7.5 Mg Tablet) 22.5 mg PO BEDTIME [facility] Last Admin: 10/11/24 23:02 Dose: Not Given Documented By: ARTHUR Non-Admin Reason: Patient Refused Naloxone HCl (Naloxone Hcl 0.4 Mg/Ml Vial) 0.04 mg IVPUSH Q5M PRN PRN Reason: Excessive sedation or RR < 8 Non-Formulary Medication (Linaclotide [Linzess]) 145 mcg PO DAILY [facility] Omeprazole (Omeprazole 40 Mg Capsule.) 40 mg PO BID@0630,1630 [facility] Last Admin: 10/12/24 05:51 Dose: Not Given Documented By: ARTHUR Non-Admin Reason: Patient Refused Ondansetron HCl (Ondansetron Hcl 4 Mg/2 Ml Vial) 4 mg IVPUSH Q8H PRN PRN Reason: Nausea and Vomiting Pharmacy Consult (Consult Rx Vancomycin Dosing) 1 each MISCELLANE DAILY PRN PRN Reason: Consult order Sodium Chloride (0.9 % Sodium Chloride Flush 3 Ml Syringe) 3 ml IVFLUSH QSHIFT [facility] Last Admin: 10/12/24 09:19 Dose: Not Given Documented By: ISRAEL Non-Admin Reason: IV Running Vitamin D (Cholecalciferol (Vitamin D3) 25 Mcg Tablet) 25 mcg PO DAILY [facility] Last Admin: 10/12/24 10:15 Dose: Not Given Documented By: ISRAEL Non-Admin Reason: Patient Condition Contraindication Labs 10/11/24 20:25 10/11/24 09:06 Labs: Laboratory Results - last 24 hr 10/11/24 13:25 O2 Saturation 93.0 ABG pH at Pt Temp 7.40 ABG pCO2 at Pt Temp 37 ABG pO2 at Pt Temp 62 L ABG HCO3 23 ABG Base Excess (Actual) -0.7 Microbiology Microbiology Results: Microbiology 10/09/24 12:44 Urine Culture - Final Urine Other - Kidney Right No growth. Assessment and Plan (1) Dementia: Status: Acute (2) Sepsis: Status: Acute (3) Bradycardia: Status: Acute (4) Urinary tract infection: Status: Acute (5) Calculus of proximal right ureter: Status: Acute Plan This is an 78-year-old English-speaking female with past medical history advanced dementia, diastolic heart failure, atrial fibrillation on eliquis, JOVANNI not on CPAP, anemia, CKD -3B, hypertension, hyperlipidemia, vitamin-D deficiency, constipation, GERD, urinary incontinence, osteoarthritis with right knee repair, hysterectomy, and obesity was recently on GLP 1 up until 2 months ago. Admitted for sepsis related to UTI, nephrolithiasis of R ureter with mild hydronephrosis AMS, likely hospital dilirium vs toxic metabolic encephalopathy due to acute illness on a back ground of advanced dementia at baseline patient is awake, alert but confused and not oriented has been agitated overnight and received sedating medications, sleeping during the day Bradycardia. recurrent. had improved, now bradycardic again Likely secondary to sepsis, hypothermia coreg had be held, resumed 10/10; now on hold again Normal TSH seen by cardiology - likely due to hypothermia/Coreg. not candidate for pacemaker pacer pads in place. Blood pressure thus far stable hypothermia initially thought due to sepsis, has been on appropriate abx for several days. hypothermia persists despite warming blanket tsh wnl, no hypoglycemia. check free t3/t4 continue warming blanket prn will check ct brain to rule out central causes when HR more stable will discuss with ICU Hematuria ?due to stent placement H/H drifting down to 8.6/27.6. stable overnight. unable to obtain labs this am hold Eliquis. stop toradol follow H/H Dysphagia re-eval by speech, upgrade to NDD1 MARIA R on ckd3 likely secondary to vancomycin vanco stopped renal fxn back to baseline Calculus proximal R ureter with mild hydronephrosis s/p cystoscopy, right retrograde, right stent insertion, urethral dilation 10/09/24 urology following Sepsis secondary to Calculus proximal R ureter with mild hydronephrosis hypothermia, bradycardia initially improved, now recurrent resume zaheer humerry urine culture growing Klebsiella and group B strep continue IV ceftriaxone blood cultures negative to date thrombocytopenia likely due to acute illness follow CBC Hyperkalemia lokelma follow BMP Paroxysmal atrial fibrillation recurrent bradycardia, hold coreg wound not resume hold Eliquis for hematuria Chronic Diastolic HF Low sodium diet Telemetry Hold BB for noted bradycardia Hypertension continue amlodipine DVT prophylaxis with Eliquis again had long discussion with two daughters present at bedside and one son over the phone re: code status/goals of care/guarded prognosis. they want to discuss with all siblings present, family coming today. patient requires ongoing inpatient stay for management of hypothermia, UTI, hematuria, bradycardia requiring close monitoring and high risk for decompensation Quality Stroke Does the patient have a stroke diagnosis?: No Reason for No Anti-thrombotic by Day Two: Contraindicated VTE Prior VTE?: No VTE Risk Level:: Medical - moderate - high VTE Device Contraindication: N/A - Device Ordered VTE Drug Contraindication: Treatment Not Indicated
[2024-10-12 14:17] LABS: Hematocrit 26.8 % (37.0-47.0); Hemoglobin 8.4 g/dl (12.0-16.0); Mean Corpuscular HGB Conc 31.3 g/dl (31.0-35.0); Mean Corpuscular Hemoglobin 27.7 pg (27.0-33.0); Mean Corpuscular Volume 88.4 fL (80.0-98.0); Mean Platelet Volume 11.5 fL (9.4-12.3); NRBC Pct Auto 1.3 /100WBC (0.0-0.2); Platelet Count 110 X10*3/uL (160-400); Red Blood Count 3.03 X10*6/uL (4.20-5.50); Red Cell Distribution Width 18.4 % (11.0-16.0); White Blood Count 6.4 X10*3/uL (4.8-10.8)
--- NOTE | 2024-10-12 14:27 | W.MHC.ACPN ---
Advanced Care Planning Note Advanced Care Planning Note Discussed with: family member(s) Time spent (in minutes): 35 Narrative: continued goals of care discussion today will multiple family members including patient's children. Persistent hypothermia, bradycardia, encephalopathy, UTI, hematuria were discussed. Due to severe baseline dementia and multiple active medical issues overall prognosis guarded. Ultimately family decided to continue medical care but changed code status from full code to DNR/DNI. will continue current medical management as outlined in daily note. Problems Discussed (1) Dementia: (2) Sepsis: (3) Bradycardia: (4) Urinary tract infection: (5) Calculus of proximal right ureter:
[2024-10-12 14:28] LABS: Anion Gap 11 (12-20); Blood Urea Nitrogen 18 mg/dL (9-16); Calcium 9.7 mg/dL (8.4-10.2); Carbon Dioxide 23 mmol/L (22-29); Chloride 117 mmol/L (96-108); Creatinine Clr Calc Pharmacy 39.3; Estimated Glomerular Filt Rate 43; Glucose Random 68 mg/dL (60-115); Potassium 4.6 mmol/L (3.3-5.1); Sodium 146 mmol/L (135-145)
[2024-10-12 14:50] LABS: Free T4 (Free Thyroxine) 0.99 ng/dL (0.71-1.85)
[2024-10-12] MEDS: OLANZapine 10 MG VIAL 2.5 MG IM (15:35)
[2024-10-12] MEDS: cefTRIAXone sodium 1 GM VIAL IVPUSH (18:08)
[2024-10-12] MEDS: 0.9 % Sodium Chloride Flush 3 ML SYRINGE IVFLUSH (18:08)
[2024-10-12] MEDS: Mirtazapine 7.5 MG TABLET 22.5 MG PO (21:06)
[2024-10-12] MEDS: amLODIPine Besylate 10 MG TABLET PO (21:06)
[2024-10-13] VITALS (7 sets, daily range): BP systolic 128–146; BP diastolic 57–92; PULSE 50–84; RESP 18–22; TEMP 36.2–37.6; O2SAT 94–98
--- NOTE | 2024-10-13 | ECG_ITS ---
Test Reason : bradycardia Blood Pressure : */* mmHG Vent. Rate : 49 BPM Atrial Rate : 49 BPM P-R Int : 148 ms QRS Dur : 82 ms QT Int : 410 ms P-R-T Axes : 39 -3 -48 degrees QTcB Int : 370 ms Sinus bradycardia Left ventricular hypertrophy with repolarization abnormality ( R in aVL ) Abnormal ECG When compared with ECG of 10-Oct-2024 21:52, No significant changes seen Referred By: Leatha Singleton Electronically Signed By: REYNOLD IYER
[2024-10-13] MEDS: LORazepam 2 MG/ML VIAL 1.5 MG IVPUSH ×2 (00:20→19:27)
[2024-10-13] MEDS: Pantoprazole Sodium 40 MG/10 ML VIAL IVPUSH (06:23)
[2024-10-13 07:13] LABS: Triiodothyronine T3 Free 2.2 pg/mL (2.3-4.2)
[2024-10-13] MEDS: LORazepam 2 MG/ML VIAL 1 MG IVPUSH (08:52)
[2024-10-13] MEDS: 0.9 % Sodium Chloride Flush 3 ML SYRINGE IVFLUSH (08:52)
[2024-10-13 09:26] LABS: Hematocrit 27.4 % (37.0-47.0); Hemoglobin 8.7 g/dl (12.0-16.0); Mean Corpuscular HGB Conc 31.8 g/dl (31.0-35.0); Mean Corpuscular Hemoglobin 27.5 pg (27.0-33.0); Mean Corpuscular Volume 86.7 fL (80.0-98.0); Mean Platelet Volume 12.2 fL (9.4-12.3); NRBC Pct Auto 0.8 /100WBC (0.0-0.2); Platelet Count 122 X10*3/uL (160-400); Red Blood Count 3.16 X10*6/uL (4.20-5.50); Red Cell Distribution Width 18.6 % (11.0-16.0); White Blood Count 7.8 X10*3/uL (4.8-10.8)
[2024-10-13 09:48] LABS: Anion Gap 15 (12-20); Blood Urea Nitrogen 19 mg/dL (9-16); Calcium 9.6 mg/dL (8.4-10.2); Carbon Dioxide 21 mmol/L (22-29); Chloride 116 mmol/L (96-108); Creatinine Clr Calc Pharmacy 38.3; Estimated Glomerular Filt Rate 42; Glucose Random 57 mg/dL (60-115); Potassium 4.6 mmol/L (3.3-5.1); Sodium 147 mmol/L (135-145)
[2024-10-13] MEDS: Dextrose 50 % 25 GM/50 ML SYRINGE IVPUSH (10:17)
[2024-10-13] MEDS: Dextrose 5 % and Lactated Ring 1,000 ML 80 ML IVCONT (10:17)
[2024-10-13 10:45] LABS: Cortisol Random 10.5 ug/dL
[2024-10-13 11:29] LABS: Glucose, Whole Blood 163 mg/dL (60-115)
--- NOTE | 2024-10-13 14:18 | P.PNIM_ITS ---
Subjective Subjective Date of Service: 10/13/24 Interval History: seen and examined this morning follow up for encephalopathy, bradycardia received ativan last night around midnight and was did not need further medication overnight. this am was agitated and hitting, attempting to get out of bed. required IV ativan. upon my assessment patient is sleeping soundly, minimally arousable unable to obtain history ate a small amount for breakfast per daughter at bedside Physical Exam 2 Vital Signs: Vital Signs: Last Vital Signs Temp 98.7 F 10/13/24 10:59 Pulse 73 10/13/24 10:59 Resp 18 10/13/24 10:59 BP 132/57 L 10/13/24 10:59 Pulse Ox 98 10/13/24 10:59 O2 Del Method Nasal Cannula 10/13/24 10:59 O2 Flow Rate 2 10/13/24 10:59 BMI result Body Mass Index 37.4 Const: Other: lethargic, unable to assess orientation Nutritional Appearance: obese Resp: Effort & Inspection: normal respiratory effort, no respiratory distress and no use of accessory muscles Cardio: Rate: bradycardic GI: Inspection: No distended Palpation (GI): Soft to palpation Neuro: Other: limited assessment due to mental status Extrem: General: Yes no pedal edema Objective Data Active Medications Acetaminophen (Acetaminophen 325 Mg Tablet) 650 mg PO Q6H PRN PRN Reason: Pain, Mild 1-3,fever,headache Amlodipine Besylate (Amlodipine Besylate 10 Mg Tablet) 10 mg PO BEDTIME [facility]IE; Protocol Last Admin: 10/12/24 21:06 Dose: 10 mg Documented By: CARIE Apixaban (Apixaban 5 Mg Tablet) 5 mg PO BID [facility] Last Admin: 10/11/24 11:15 Dose: Not Given Documented By: ISRAEL Non-Admin Reason: Physician Held Med Atorvastatin Calcium (Atorvastatin Calcium 40 Mg Tablet) 40 mg PO DAILY [facility] Last Admin: 10/13/24 08:55 Dose: Not Given Documented By: OSWALDO Non-Admin Reason: Patient Condition Contraindication Calcium Carbonate (Calcium Carbonate 750 Mg Tab.Chew) 750 mg PO Q4H PRN PRN Reason: Heartburn Calcium Carbonate (Calcium Oyster Shell Elemental 500 Mg Tablet) 500 mg PO DAILY [facility] Last Admin: 10/13/24 08:55 Dose: Not Given Documented By: OSWALDO Non-Admin Reason: Patient Condition Contraindication Ceftriaxone Sodium (Ceftriaxone Sodium 1 Gm Vial) 1 gm IVPUSH Q24H [facility] Last Admin: 10/12/24 18:08 Dose: 1 gm Documented By: ISRAEL Dextrose (Dextrose 50 % 25 Gm/50 Ml Syringe) 25 gm IVPUSH Q15M PRN; Protocol PRN Reason: per Hypoglycemia Standing Ord. Last Admin: 10/13/24 10:17 Dose: 25 gm Documented By: OSWALDO Docusate Sodium (Docusate Sodium 100 Mg Capsule) 100 mg PO DAILY [facility] Last Admin: 10/13/24 08:55 Dose: Not Given Documented By: OSWALDO Non-Admin Reason: Patient Condition Contraindication Ferrous Sulfate (Ferrous Sulfate 324 Mg Tablet.) 324 mg PO DAILY [facility] Last Admin: 10/13/24 08:55 Dose: Not Given Documented By: OSWALDO Non-Admin Reason: Patient Condition Contraindication Glucose (Glucose Gel 15 Gm Gel..Gram.) 15 gm PO Q15M PRN; Protocol PRN Reason: per Hypoglycemia Standing Ord. Dextrose/Lactated Ringer's (D5lr) 1,000 mls @ 80 mls/hr IVCONT .[id number] [facility] Stop: 10/13/24 22:29 Last Admin: 10/13/24 10:17 Dose: 80 mls/hr Documented By: OSWALDO Loratadine (Loratadine 10 Mg Tablet) 10 mg PO DAILY [facility] Last Admin: 10/13/24 08:55 Dose: Not Given Documented By: OSWALDO Non-Admin Reason: Patient Condition Contraindication Magnesium Hydroxide (Milk Of Magnesia 30 Ml Oral.Susp) 30 ml PO DAILY PRN PRN Reason: Constipation Melatonin (Melatonin 3 Mg Tablet) 6 mg PO BEDTIME PRN PRN Reason: Insomnia Last Admin: 10/08/24 23:58 Dose: 6 mg Documented By: CHICA Mirtazapine (Mirtazapine 7.5 Mg Tablet) 22.5 mg PO BEDTIME [facility] Last Admin: 10/12/24 21:06 Dose: 22.5 mg Documented By: JAGRUTI-JOZEB Naloxone HCl (Naloxone Hcl 0.4 Mg/Ml Vial) 0.04 mg IVPUSH Q5M PRN PRN Reason: Excessive sedation or RR < 8 Ondansetron HCl (Ondansetron Hcl 4 Mg/2 Ml Vial) 4 mg IVPUSH Q8H PRN PRN Reason: Nausea and Vomiting Pantoprazole Sodium (Pantoprazole Sodium 40 Mg/10 Ml Vial) 40 mg IVPUSH DAILY@0630 [facility] Last Admin: 10/13/24 06:23 Dose: 40 mg Documented By: N-JOZEB Sodium Chloride (0.9 % Sodium Chloride Flush 3 Ml Syringe) 3 ml IVFLUSH QSHIFT [facility] Last Admin: 10/13/24 08:52 Dose: 3 ml Documented By: OSWALDO Vitamin D (Cholecalciferol (Vitamin D3) 25 Mcg Tablet) 25 mcg PO DAILY [facility] Last Admin: 10/13/24 08:55 Dose: Not Given Documented By: OSWALDO Non-Admin Reason: Patient Condition Contraindication Labs 10/13/24 08:18 10/13/24 08:18 Labs: Laboratory Results - last 24 hr 10/12/24 10/13/24 10/13/24 14:04 08:18 11:03 MCV 88.4 86.7 MCH 27.7 27.5 MCHC 31.3 31.8 RDW 18.4 H 18.6 H Plt Count 110 L 122 L MPV 11.5 12.2 Absolute Nucleated RBC 0.080 H 0.060 H Nucleated RBC % (auto) 1.3 H 0.8 H Anion Gap 11 L 15 Estim Creat Clear Calc 39.3 38.3 Estimated GFR 43 42 POC Glucose 163 H Random Glucose 68 57 L* Calcium 9.7 9.6 Free T4 0.99 Free T3 2.2 L Random Cortisol 10.5 Assessment and Plan (1) Dementia: Status: Acute (2) Sepsis: Status: Acute (3) Bradycardia: Status: Acute (4) Hypothermia: Status: Acute (5) Calculus of proximal right ureter: Status: Acute (6) Urinary tract infection: Status: Acute Plan This is an 78-year-old Arabic-speaking female with past medical history advanced dementia, diastolic heart failure, atrial fibrillation on eliquis, JOVANNI not on CPAP, anemia, CKD -3B, hypertension, hyperlipidemia, vitamin-D deficiency, constipation, GERD, urinary incontinence, osteoarthritis with right knee repair, hysterectomy, and obesity was recently on GLP 1 up until 2 months ago. Admitted for sepsis related to UTI, nephrolithiasis of R ureter with mild hydronephrosis hospital course complicated by recurrent hypothermia, bradycardia, encephalopathy as well as hematuria. AMS, likely hospital dilirium vs toxic metabolic encephalopathy due to acute illness on a back ground of advanced dementia at baseline patient is awake, alert but confused and not oriented has been agitated overnight and received sedating medications, sleeping during the day intermittently taking home dose of Mirtazapine at night Bradycardia. recurrent. had improved, now bradycardic again, but HR today improved from yesterday. drops when sleeping Likely secondary to sepsis, hypothermia coreg had be held, resumed 10/10; now on hold again. wound not resue Normal TSH seen by cardiology - likely due to hypothermia/Coreg. not candidate for pacemaker pacer pads in place. Blood pressure thus far stable hypothermia initially thought due to sepsis, has been on appropriate abx for several days. hypothermia persists despite warming blanket tsh wnl, no hypoglycemia. free t3/t4 wnl continue warming blanket prn will check ct brain to rule out central causes when HR more stable will discuss with ICU Hematuria ?due to stent placement H/H stable hold Eliquis. stop toradol d/w urology could last 3-5 days due to eliquis follow H/H Dysphagia re-eval by speech, upgrade to NDD1 MARIA R on ckd3 likely secondary to vancomycin vanco stopped renal fxn back to baseline Calculus proximal R ureter with mild hydronephrosis s/p cystoscopy, right retrograde, right stent insertion, urethral dilation 10/09/24 urology following Sepsis secondary to Calculus proximal R ureter with mild hydronephrosis hypothermia, bradycardia initially improved, now recurrent resume zaheer humerry urine culture growing Klebsiella and group B strep continue IV ceftriaxone, started 10/09 blood cultures negative to date thrombocytopenia likely due to acute illness follow CBC Hyperkalemia lokelma follow BMP Paroxysmal atrial fibrillation has been in sinus bradycardia recurrent bradycardia, hold coreg wound not resume hold Eliquis for hematuria Chronic Diastolic HF Low sodium diet Telemetry Hold BB for noted bradycardia Hypertension continue amlodipine DVT prophylaxis mechanical. Eliquis on hold code status: changed to DNR/DNI 10/12 patient requires ongoing inpatient stay for management of hypothermia, UTI, hematuria, bradycardia requiring close monitoring and high risk for decompensation Quality Stroke Does the patient have a stroke diagnosis?: No Reason for No Anti-thrombotic by Day Two: Contraindicated VTE Prior VTE?: No VTE Risk Level:: Medical - moderate - high VTE Device Contraindication: N/A - Device Ordered VTE Drug Contraindication: Treatment Not Indicated
[2024-10-13 15:29] LABS: Glucose, Whole Blood 137 mg/dL (60-115)
--- NOTE | 2024-10-13 16:50 | PM.PSYCN ---
History of Present Illness Date of Service: 10/13/24 Chief Complaint: weakness Reason for Consult: Delirium, agitation, refusing PO Requesting physician: May Johnson Sources of Information: patient interviewed (asleep), chart reviewed and crisis/core team assessment reviewed Additional Sources of Information: Five family members were present and provided information. HPI Narrative: 78 yo female, history of dementia, afib, JOVANNI, anemia, CKD-3B, HTN, HLD, Vitamin D deficient, Constipation, GERD, Urinary Incontinence, OA, admitted with sepsis from UTI, calculus R ureter, encephalopathy, bradycardia, hematuria, hypothermia. Team reports agitation with hitting and attempting to get OOB. Medicated with Lorazepam and pt is sleeping most of the day and when seen. Family is present. Daughter reports pt is on 3 psych meds-Mirtazapine is listed in her pharmacy list ([facility] closed today so no access to information). Team asks for suggestions to manage agitation-sedation. Past Psychiatric History: Daughter reports family has in home psych care for pt. She takes 3 psychotropic meds-remeron is the only one on her pharmacy profile. Medical Evaluation Reviewed: Yes Review of Systems Review of Systems asleep [facility] Medical History Renal insufficiency Epigastric pain Tubular adenoma of colon Preop cardiovascular exam Urinary urgency Pneumonia Hospital discharge follow-up Asthma MARIA R (acute kidney injury) GERD (gastroesophageal reflux disease) Diabetes Osteoarthritis Hyperlipidemia Chronic diastolic heart failure Hypertension JOVANNI (obstructive sleep apnea) Surgical History Hx of cataract surgery Status post total knee replacement, right History of arthroplasty of right knee Hx of colonoscopy H/O: hysterectomy History of salpingoophorectomy History of tonsillectomy Substance History: none Diagnostics Vital Signs (24Hr): Vital Signs - 24 hr 10/12/24 20:00 10/13/24 00:00 10/13/24 04:00 Temperature 97.8 F 97.2 F 98.4 F Pulse Rate 54 50 56 Respiratory Rate 20 20 20 Blood Pressure 136/58 L 128/59 L 136/60 Pulse Oximetry 95 94 94 Oxygen Delivery Method Nasal Cannula Nasal Cannula Nasal Cannula Oxygen Flow Rate 2 2 2 10/13/24 07:43 10/13/24 10:59 10/13/24 15:24 Temperature 98.7 F 99.6 F Pulse Rate 84 73 54 Respiratory Rate 18 18 18 Blood Pressure 134/92 H 132/57 L 135/61 Pulse Oximetry 94 98 96 Oxygen Delivery Method Nasal Cannula Nasal Cannula Nasal Cannula Oxygen Flow Rate 2 2 2 BMI result Body Mass Index 37.4 Labs 10/13/24 08:18 10/13/24 08:18 Labs: Laboratory Results - last 48 hr 10/11/24 10/12/24 10/13/24 20:25 14:04 08:18 WBC 6.4 7.8 RBC 3.03 L 3.16 L Hgb 9.1 L 8.4 L 8.7 L Hct 29.4 L 26.8 L 27.4 L MCV 88.4 86.7 MCH 27.7 27.5 MCHC 31.3 31.8 RDW 18.4 H 18.6 H Plt Count 110 L 122 L MPV 11.5 12.2 Absolute Nucleated RBC 0.080 H 0.060 H Nucleated RBC % (auto) 1.3 H 0.8 H Sodium 146 H 147 H Potassium 4.6 4.6 Chloride 117 H 116 H Carbon Dioxide 23 21 L Anion Gap 11 L 15 BUN 18 H 19 H Creatinine 1.21 1.24 Estim Creat Clear Calc 39.3 38.3 Estimated GFR 43 42 POC Glucose Random Glucose 68 57 L* Calcium 9.7 9.6 Free T4 0.99 Free T3 2.2 L Random Cortisol 10.5 10/13/24 10/13/24 11:03 15:23 WBC RBC Hgb Hct MCV MCH MCHC RDW Plt Count MPV Absolute Nucleated RBC Nucleated RBC % (auto) Sodium Potassium Chloride Carbon Dioxide Anion Gap BUN Creatinine Estim Creat Clear Calc Estimated GFR POC Glucose 163 H 137 H Random Glucose Calcium Free T4 Free T3 Random Cortisol Imaging Radiology Impressions: ITS Impressions Guidance Fluoroscopy 10/09/24 12:30 IMPRESSION: Fluoroscopy during procedure. Please see procedure report for additional information. Electronically signed by: Abdirashid Rodriguez MD 10/09/2024 01:14 PM EDT Mental Status Exam Mental Status Exam Patient Behavior: Asleep Medications Medications Current Medications Acetaminophen (Acetaminophen 325 Mg Tablet) 650 mg PO Q6H PRN PRN Reason: Pain, Mild 1-3,fever,headache Amlodipine Besylate (Amlodipine Besylate 10 Mg Tablet) 10 mg PO BEDTIME [facility]; Protocol Last Admin: 10/12/24 21:06 Dose: 10 mg Apixaban (Apixaban 5 Mg Tablet) 5 mg PO BID [facility] Last Admin: 10/11/24 11:15 Dose: Not Given Atorvastatin Calcium (Atorvastatin Calcium 40 Mg Tablet) 40 mg PO DAILY [facility] Last Admin: 10/13/24 08:55 Dose: Not Given Calcium Carbonate (Calcium Carbonate 750 Mg Tab.Chew) 750 mg PO Q4H PRN PRN Reason: Heartburn Calcium Carbonate (Calcium Oyster Shell Elemental 500 Mg Tablet) 500 mg PO DAILY [facility] Last Admin: 10/13/24 08:55 Dose: Not Given Ceftriaxone Sodium (Ceftriaxone Sodium 1 Gm Vial) 1 gm IVPUSH Q24H [facility] Last Admin: 10/12/24 18:08 Dose: 1 gm Dextrose (Dextrose 50 % 25 Gm/50 Ml Syringe) 25 gm IVPUSH Q15M PRN; Protocol PRN Reason: per Hypoglycemia Standing Ord. Last Admin: 10/13/24 10:17 Dose: 25 gm Docusate Sodium (Docusate Sodium 100 Mg Capsule) 100 mg PO DAILY [facility] Last Admin: 10/13/24 08:55 Dose: Not Given Ferrous Sulfate (Ferrous Sulfate 324 Mg Tablet.Dr) 324 mg PO DAILY [facility] Last Admin: 10/13/24 08:55 Dose: Not Given Glucose (Glucose Gel 15 Gm Gel..Gram.) 15 gm PO Q15M PRN; Protocol PRN Reason: per Hypoglycemia Standing Ord. Dextrose/Lactated Ringer's (D5lr) 1,000 mls @ 80 mls/hr IVCONT .[id number] [facility] Stop: 10/13/24 22:29 Last Admin: 10/13/24 10:17 Dose: 80 mls/hr Loratadine (Loratadine 10 Mg Tablet) 10 mg PO DAILY [facility] Last Admin: 10/13/24 08:55 Dose: Not Given Magnesium Hydroxide (Milk Of Magnesia 30 Ml Oral.Susp) 30 ml PO DAILY PRN PRN Reason: Constipation Melatonin (Melatonin 3 Mg Tablet) 6 mg PO BEDTIME PRN PRN Reason: Insomnia Last Admin: 10/08/24 23:58 Dose: 6 mg Mirtazapine (Mirtazapine 7.5 Mg Tablet) 22.5 mg PO BEDTIME [facility] Last Admin: 10/12/24 21:06 Dose: 22.5 mg Naloxone HCl (Naloxone Hcl 0.4 Mg/Ml Vial) 0.04 mg IVPUSH Q5M PRN PRN Reason: Excessive sedation or RR < 8 Ondansetron HCl (Ondansetron Hcl 4 Mg/2 Ml Vial) 4 mg IVPUSH Q8H PRN PRN Reason: Nausea and Vomiting Pantoprazole Sodium (Pantoprazole Sodium 40 Mg/10 Ml Vial) 40 mg IVPUSH DAILY@0630 [facility] Last Admin: 10/13/24 06:23 Dose: 40 mg Sodium Chloride (0.9 % Sodium Chloride Flush 3 Ml Syringe) 3 ml IVFLUSH QSHIFT [facility] Last Admin: 10/13/24 08:52 Dose: 3 ml Vitamin D (Cholecalciferol (Vitamin D3) 25 Mcg Tablet) 25 mcg PO DAILY [facility] Last Admin: 10/13/24 08:55 Dose: Not Given Allergies Allergies Allergy/AdvReac Type Severity Reaction Status Date / Time Penicillins [PENICILLINS] Allergy Intermediate NAUSEA/HIVE Verified 10/08/24 16:36 S metformin AdvReac Unknown Diarrhea Verified 10/08/24 16:36 Assessment & Plan Assessment & Plan (1) Dementia: Qualifiers: Dementia type: unspecified type Dementia behavioral or psychological symptom: without behavioral, psychotic, or mood disturbance or anxiety Status: Acute Code(s): F03.90 - Unspecified dementia, unspecified severity, without behavioral disturbance, psychotic disturbance, mood disturbance, and anxiety (2) Delirium: Status: Acute Code(s): R41.0 - Disorientation, unspecified Plan Agitation within delirium. Oversedated for long periods of time with Lorazepam, although effective. Suggest: Haldol 1 mg tid prn agitation, combative behaviors which are endangering Total time managing care of this patient today ____ minutes.
[2024-10-13] MEDS: cefTRIAXone sodium 1 GM VIAL IVPUSH (16:53)
[2024-10-14 03:19] VITALS: BP 131/88; PULSE 76; RESP 20; TEMP 36.7; O2SAT 97
[2024-10-14 08:00] VITALS: BP 136/53; PULSE 65; RESP 20; TEMP 37
[2024-10-14 11:04] VITALS: BP 142/59; PULSE 58; RESP 16; TEMP 36.9; O2SAT 94
--- NOTE | 2024-10-14 13:10 | HO.PM.IMPN ---
Subjective Subjective Date of Service: 10/14/24 Interval History: seen and examined this morning follow up for encephalopathy/dilirium, UTI, bradycardia, hypothermia overnight HR did drop while asleep, otherwise has been more stable. pulled out IV overnight history obtained with the assistance of carton inspector and family at the bedside. Limited history from patient patient awake this am, active, wants to get up and out of bed, but has been redirectable and did eat 75% breakfast and lunch Physical Exam Vital Signs: Vital Signs: Last Vital Signs Temp 98.5 F 10/14/24 11:04 Pulse 58 10/14/24 11:04 Resp 16 10/14/24 11:04 BP 142/59 H 10/14/24 11:04 Pulse Ox 94 10/14/24 11:04 O2 Del Method Room Air 10/14/24 11:04 O2 Flow Rate 2 10/13/24 20:00 BMI result Body Mass Index 37.4 Const: General: alert, awake and Physically active Nutritional Appearance: obese Resp: Effort & Inspection: normal respiratory effort, no respiratory distress and no use of accessory muscles Cardio: Rate: regular rate GI: Inspection: No distended Palpation (GI): Soft to palpation and nontender Neuro: General: moves all extremities and CN's II-XI intact bilaterally Extrem: General: Yes no pedal edema Objective Data Active Medications Acetaminophen (Acetaminophen 325 Mg Tablet) 650 mg PO Q6H PRN PRN Reason: Pain, Mild 1-3,fever,headache Amlodipine Besylate (Amlodipine Besylate 10 Mg Tablet) 10 mg PO BEDTIME [facility]; Protocol Last Admin: 10/13/24 19:34 Dose: Not Given Documented By: CARIE Non-Admin Reason: Patient Condition Contraindication Apixaban (Apixaban 5 Mg Tablet) 5 mg PO BID [facility] Last Admin: 10/11/24 11:15 Dose: Not Given Documented By: ISRAEL Non-Admin Reason: Physician Held Med Atorvastatin Calcium (Atorvastatin Calcium 40 Mg Tablet) 40 mg PO DAILY [facility] Last Admin: 10/14/24 09:40 Dose: Not Given Documented By: OSWALDO Non-Admin Reason: Patient Refused Calcium Carbonate (Calcium Carbonate 750 Mg Tab.Chew) 750 mg PO Q4H PRN PRN Reason: Heartburn Calcium Carbonate (Calcium Oyster Shell Elemental 500 Mg Tablet) 500 mg PO DAILY [facility] Last Admin: 10/14/24 09:40 Dose: Not Given Documented By: OSWALDO Non-Admin Reason: Patient Refused Ceftriaxone Sodium (Ceftriaxone Sodium 1 Gm Vial) 1 gm IVPUSH Q24H [facility] Last Admin: 10/13/24 16:53 Dose: 1 gm Documented By: OSWALDO Dextrose (Dextrose 50 % 25 Gm/50 Ml Syringe) 25 gm IVPUSH Q15M PRN; Protocol PRN Reason: per Hypoglycemia Standing Ord. Last Admin: 10/13/24 10:17 Dose: 25 gm Documented By: OSWALDO Docusate Sodium (Docusate Sodium 100 Mg Capsule) 100 mg PO DAILY [facility] Last Admin: 10/14/24 09:41 Dose: Not Given Documented By: OSWALDO Non-Admin Reason: Patient Refused Ferrous Sulfate (Ferrous Sulfate 324 Mg Tablet.Dr) 324 mg PO DAILY [facility] Last Admin: 10/14/24 09:41 Dose: Not Given Documented By: OSWALDO Non-Admin Reason: Patient Refused Glucose (Glucose Gel 15 Gm Gel..Gram.) 15 gm PO Q15M PRN; Protocol PRN Reason: per Hypoglycemia Standing Ord. Haloperidol (Haloperidol 1 Mg Tablet) 1 mg PO TID PRN PRN Reason: agitation, endandering combative behaviors Loratadine (Loratadine 10 Mg Tablet) 10 mg PO DAILY [facility] Last Admin: 10/14/24 09:41 Dose: Not Given Documented By: OSWALDO Non-Admin Reason: Patient Refused Magnesium Hydroxide (Milk Of Magnesia 30 Ml Oral.Susp) 30 ml PO DAILY PRN PRN Reason: Constipation Melatonin (Melatonin 3 Mg Tablet) 6 mg PO BEDTIME PRN PRN Reason: Insomnia Last Admin: 10/08/24 23:58 Dose: 6 mg Documented By: CHICA Mirtazapine (Mirtazapine 7.5 Mg Tablet) 22.5 mg PO BEDTIME [facility] Last Admin: 10/13/24 19:35 Dose: Not Given Documented By: CARIE Non-Admin Reason: Patient Condition Contraindication Naloxone HCl (Naloxone Hcl 0.4 Mg/Ml Vial) 0.04 mg IVPUSH Q5M PRN PRN Reason: Excessive sedation or RR < 8 Ondansetron HCl (Ondansetron Hcl 4 Mg/2 Ml Vial) 4 mg IVPUSH Q8H PRN PRN Reason: Nausea and Vomiting Pantoprazole Sodium (Pantoprazole Sodium 40 Mg/10 Ml Vial) 40 mg IVPUSH DAILY@0630 [facility] Last Admin: 10/14/24 05:57 Dose: Not Given Documented By: CARIE Non-Admin Reason: No Access Sodium Chloride (0.9 % Sodium Chloride Flush 3 Ml Syringe) 3 ml IVFLUSH QSHIFT [facility] Last Admin: 10/14/24 09:40 Dose: Not Given Documented By: OSWALDO Non-Admin Reason: No Access Vitamin D (Cholecalciferol (Vitamin D3) 25 Mcg Tablet) 25 mcg PO DAILY [facility] Last Admin: 10/14/24 09:41 Dose: Not Given Documented By: OSWALDO Non-Admin Reason: Patient Refused Labs 10/13/24 08:18 10/13/24 08:18 Labs: Laboratory Results - last 24 hr 10/13/24 15:23 POC Glucose 137 H Microbiology Microbiology Results: Microbiology 10/08/24 17:31 Blood Culture - Final Blood - Venous No growth after 5 days. 10/08/24 17:31 Blood Culture - Final Blood - Venous No growth after 5 days. Assessment and Plan (1) Delirium: Status: Acute (2) Dementia: Status: Acute (3) Bradycardia: Status: Acute (4) Hypothermia: Status: Acute (5) Calculus of proximal right ureter: Status: Acute (6) Urinary tract infection: Status: Acute Plan This is an 78-year-old [place]ian-speaking female with past medical history advanced dementia, diastolic heart failure, atrial fibrillation on eliquis, JOVANNI not on CPAP, anemia, CKD -3B, hypertension, hyperlipidemia, vitamin-D deficiency, constipation, GERD, urinary incontinence, osteoarthritis with right knee repair, hysterectomy, and obesity was recently on GLP 1 up until 2 months ago. Admitted for sepsis related to UTI, nephrolithiasis of R ureter with mild hydronephrosis hospital course complicated by recurrent hypothermia, bradycardia, encephalopathy as well as hematuria. AMS, likely hospital dilirium vs toxic metabolic encephalopathy due to acute illness on a back ground of advanced dementia at baseline patient is awake, alert but confused and not oriented has been agitated requiring sedating meds frequently and sleeping during the day patient awake and alert this am intermittently taking home dose of Mirtazapine at night Bradycardia. HR was dropping into 20-30s, likely due to hypothermia. HR now improved off of coreg coreg had be held, resumed 10/10; now on hold again. wound not resume Normal TSH seen by cardiology - likely due to hypothermia/Coreg. not candidate for pacemaker pacer pads in place. Blood pressure thus far stable hypothermia hypothermia persisted despite warming blanket, has been more stable over past 24 hours tsh wnl. free t3/t4 wnl continue warming blanket prn consider ct brain to rule out central causes when HR more stable Hematuria ?due to stent placement H/H stable hold Eliquis. stop toradol d/w urology could last 3-5 days due to eliquis unable to draw labs this am, but H/H has been stable, hematuria appears to be improving Dysphagia re-eval by speech, upgrade to NDD1 rec re-eval in am if patient remains awake MARIA R on ckd3 likely secondary to vancomycin vanco stopped renal fxn back to baseline mild hypernatremia due to decreased po intake unable to get labs this am, awake today and eating follow BMP in am if able Calculus proximal R ureter with mild hydronephrosis s/p cystoscopy, right retrograde, right stent insertion, urethral dilation 10/09/24 urology following - outpatient follow up Sepsis secondary to Calculus proximal R ureter with mild hydronephrosis hypothermia, bradycardia improving huggar prn urine culture growing Klebsiella and group B strep continue IV ceftriaxone, started 10/09 blood cultures negative to date thrombocytopenia likely due to acute illness Platelets stable Hyperkalemia Resolved with lokelma Paroxysmal atrial fibrillation has been in sinus bradycardia recurrent bradycardia, hold coreg wound not resume hold Eliquis for hematuria Chronic Diastolic HF Low sodium diet Telemetry Hold BB for noted bradycardia Hypertension continue amlodipine DVT prophylaxis mechanical. Eliquis on hold code status: changed to DNR/DNI 10/12 patient requires ongoing inpatient stay for management of hypothermia, UTI, hematuria, bradycardia requiring close monitoring and high risk for decompensation We will need physical therapy re-evaluation when patient able to follow commands consistently Quality Stroke Does the patient have a stroke diagnosis?: No Reason for No Anti-thrombotic by Day Two: Contraindicated VTE Prior VTE?: No VTE Risk Level:: Medical - moderate - high VTE Device Contraindication: N/A - Device Ordered VTE Drug Contraindication: Treatment Not Indicated
[2024-10-14 15:55] VITALS: BP 132/60; PULSE 45; RESP 16; O2SAT 92
[2024-10-14] MEDS: cefTRIAXone sodium 1 GM VIAL IVPUSH (17:01)
[2024-10-14] MEDS: 0.9 % Sodium Chloride Flush 3 ML SYRINGE IVFLUSH ×2 (17:01→22:03)
[2024-10-14 20:00] VITALS: BP 130/70; PULSE 62; RESP 17; TEMP 36.6; O2SAT 90
[2024-10-14] MEDS: Mirtazapine 7.5 MG TABLET 22.5 MG PO (22:02)
[2024-10-14] MEDS: Acetaminophen 325 MG TABLET 650 MG PO (22:02)
[2024-10-14] MEDS: amLODIPine Besylate 10 MG TABLET PO (22:03)
[2024-10-15] VITALS (7 sets, daily range): BP systolic 136–148; BP diastolic 56–66; PULSE 47–61; RESP 16–18; TEMP 35.9–36.3; O2SAT 92–95
[2024-10-15] MEDS: Pantoprazole Sodium 40 MG/10 ML VIAL IVPUSH (05:07)
[2024-10-15 07:51] LABS: Hematocrit 30.2 % (37.0-47.0); Hemoglobin 9.6 g/dl (12.0-16.0); Mean Corpuscular HGB Conc 31.8 g/dl (31.0-35.0); Mean Corpuscular Hemoglobin 27.5 pg (27.0-33.0); Mean Corpuscular Volume 86.5 fL (80.0-98.0); Mean Platelet Volume 11.3 fL (9.4-12.3); Platelet Count 151 X10*3/uL (160-400); Red Blood Count 3.49 X10*6/uL (4.20-5.50); Red Cell Distribution Width 18.7 % (11.0-16.0); White Blood Count 5.7 X10*3/uL (4.8-10.8)
[2024-10-15 08:00] LABS: Anion Gap 12 (12-20); Blood Urea Nitrogen 12 mg/dL (9-16); Calcium 9.6 mg/dL (8.4-10.2); Carbon Dioxide 24 mmol/L (22-29); Chloride 116 mmol/L (96-108); Creatinine Clr Calc Pharmacy 46.6; Estimated Glomerular Filt Rate 52; Glucose Random 76 mg/dL (60-115); Sodium 148 mmol/L (135-145)
[2024-10-15] MEDS: Loratadine 10 MG TABLET PO (09:13)
[2024-10-15] MEDS: Cholecalciferol (Vitamin D3) 25 MCG TABLET PO (09:13)
[2024-10-15] MEDS: Ferrous Sulfate 324 MG TABLET.DR PO (09:13)
[2024-10-15] MEDS: Calcium Oyster Shell Elemental 500 MG TABLET PO (09:13)
[2024-10-15] MEDS: Atorvastatin Calcium 40 MG TABLET PO (09:13)
[2024-10-15] MEDS: 0.9 % Sodium Chloride Flush 3 ML SYRINGE IVFLUSH ×2 (09:23→16:52)
--- NOTE | 2024-10-15 09:56 | HO.PM.IMPN ---
Subjective Subjective Date of Service: 10/15/24 Interval History: seen and examined this morning follow up for encephalopathy/dilirium, UTI, bradycardia, hypothermia overnight HR did drop while asleep, otherwise has been more stable. pulled out IV overnight history obtained with the assistance of power plant installer and family at the bedside. Limited history from patient patient awake this am, active, wants to get up and out of bed, but has been redirectable and did eat 75% breakfast and lunch Physical Exam Vital Signs: Vital Signs: Last Vital Signs Temp 97.2 F 10/15/24 08:00 Pulse 61 10/15/24 08:00 Resp 17 10/15/24 08:00 BP 141/59 H 10/15/24 08:00 Pulse Ox 92 10/15/24 08:00 O2 Del Method Room Air 10/15/24 08:00 O2 Flow Rate 2 10/13/24 20:00 BMI result Body Mass Index 37.4 Objective Data Active Medications Acetaminophen (Acetaminophen 325 Mg Tablet) 650 mg PO Q6H PRN PRN Reason: Pain, Mild 1-3,fever,headache Last Admin: 10/14/24 22:02 Dose: 650 mg Documented By: JULES Amlodipine Besylate (Amlodipine Besylate 10 Mg Tablet) [address] [facility]; Protocol Last Admin: 10/14/24 22:03 Dose: 10 mg Documented By: JULES Apixaban (Apixaban 5 Mg Tablet) [address] [facility] Last Admin: 10/11/24 11:15 Dose: Not Given Documented By: ISRAEL Non-Admin Reason: Physician Held Med Atorvastatin Calcium (Atorvastatin Calcium 40 Mg Tablet) [address] [facility] Last Admin: 10/15/24 09:13 Dose: 40 mg Documented By: OSWALDO Calcium Carbonate (Calcium Carbonate 750 Mg Tab.Chew) 750 mg PO Q4H PRN PRN Reason: Heartburn Calcium Carbonate (Calcium Oyster Shell Elemental 500 Mg Tablet) [address] [facility] Last Admin: 10/15/24 09:13 Dose: 500 mg Documented By: OSWALDO Ceftriaxone Sodium (Ceftriaxone Sodium 1 Gm Vial) [address] [facility] Last Admin: 10/14/24 17:01 Dose: 1 gm Documented By: OSWALDO Dextrose (Dextrose 50 % 25 Gm/50 Ml Syringe) 25 gm IVPUSH Q15M PRN; Protocol PRN Reason: per Hypoglycemia Standing Ord. Last Admin: 10/13/24 10:17 Dose: 25 gm Documented By: OSWALDO Docusate Sodium (Docusate Sodium 100 Mg Capsule) [address] [facility] Last Admin: 10/15/24 09:22 Dose: Not Given Documented By: OSWALDO Non-Admin Reason: Patient Refused Ferrous Sulfate (Ferrous Sulfate 324 Mg Tablet.Dr) [address] [facility] Last Admin: 10/15/24 09:13 Dose: 324 mg Documented By: OSWALDO Glucose (Glucose Gel 15 Gm Gel..Gram.) 15 gm PO Q15M PRN; Protocol PRN Reason: per Hypoglycemia Standing Ord. Haloperidol (Haloperidol 1 Mg Tablet) 1 mg PO TID PRN PRN Reason: agitation, endandering combative behaviors Loratadine (Loratadine 10 Mg Tablet) [address] [facility] Last Admin: 10/15/24 09:13 Dose: 10 mg Documented By: OSWALDO Magnesium Hydroxide (Milk Of Magnesia 30 Ml Oral.Susp) 30 ml PO DAILY PRN PRN Reason: Constipation Melatonin (Melatonin 3 Mg Tablet) 6 mg PO BEDTIME PRN PRN Reason: Insomnia Last Admin: 10/08/24 23:58 Dose: 6 mg Documented By: CHICA Mirtazapine (Mirtazapine 7.5 Mg Tablet) 22.[address] [facility] Last Admin: 10/14/24 22:02 Dose: 22.5 mg Documented By: JULES Naloxone HCl (Naloxone Hcl 0.4 Mg/Ml Vial) 0.04 mg IVPUSH Q5M PRN PRN Reason: Excessive sedation or RR < 8 Ondansetron HCl (Ondansetron Hcl 4 Mg/2 Ml Vial) 4 mg IVPUSH Q8H PRN PRN Reason: Nausea and Vomiting Pantoprazole Sodium (Pantoprazole Sodium 40 Mg/10 Ml Vial) 40 mg IVPUSH DAILY@0630 [facility] Last Admin: 10/15/24 05:07 Dose: 40 mg Documented By: JULES Sodium Chloride (0.9 % Sodium Chloride Flush 3 Ml Syringe) [address] [facility] Last Admin: 10/15/24 09:23 Dose: 3 ml Documented By: OSWALDO Vitamin D (Cholecalciferol (Vitamin D3) 25 Mcg Tablet) 25 mcg PO DAILY [facility] Last Admin: 10/15/24 09:13 Dose: 25 mcg Documented By: OSWALDO Labs 10/15/24 07:39 10/15/24 07:39 Labs: Laboratory Results - last 24 hr 10/15/24 07:39 MCV 86.5 MCH 27.5 MCHC 31.8 RDW 18.7 H Plt Count 151 L MPV 11.3 Absolute Nucleated RBC 0.000 Nucleated RBC % (auto) 0.0 Anion Gap 12 Estim Creat Clear Calc 46.6 Estimated GFR 52 Random Glucose 76 Calcium 9.6 Assessment and Plan (1) Delirium: Status: Acute (2) Dementia: Status: Acute (3) Bradycardia: Status: Acute (4) Hypothermia: Status: Acute (5) Calculus of proximal right ureter: Status: Acute (6) Urinary tract infection: Status: Acute Plan 78-year-old Mongolian-speaking female with past medical history advanced dementia, diastolic heart failure, atrial fibrillation on eliquis, JOVANNI not on CPAP, anemia, CKD -3B, hypertension, hyperlipidemia, vitamin-D deficiency, constipation, GERD, urinary incontinence, osteoarthritis with right knee repair, hysterectomy, and obesity was recently on GLP 1 up until 2 months ago. Admitted for sepsis related to UTI, nephrolithiasis of R ureter with mild hydronephrosis hospital course complicated by recurrent hypothermia, bradycardia, encephalopathy as well as hematuria. AMS, likely hospital delirium vs toxic metabolic encephalopathy due to acute illness on a back ground of advanced dementia at baseline patient is awake, alert but confused and not oriented has been agitated requiring sedating meds frequently and sleeping during the day patient awake and alert this am wanting to ambulate Bradycardia. off and on HR was dropping into 20-30s, likely due to hypothermia. HR now improved off of coreg coreg had be held, resumed 4/; now on hold again. wound not resume Normal TSH seen by cardiology - likely due to hypothermia/Coreg. not candidate for pacemaker pacer pads in place. Blood pressure thus far stable Hypothermia. Resolved hypothermia persisted despite warming blanket, has been more stable over past 24 hours tsh wnl. free t3/t4 wnl continue warming blanket prn consider ct brain to rule out central causes when HR more stable Hematuria ?due to stent placement H/H stable hold Eliquis. stop toradol d/w urology could last 3-5 days due to eliquis unable to draw labs this am, but H/H has been stable, hematuria appears to be improving Dysphagia re-eval by speech, upgrade to NDD1 rec re-eval in am if patient remains awake MARIA R on ckd3 likely secondary to vancomycin vanco stopped renal fxn back to baseline mild hypernatremia due to decreased po intake unable to get labs this am, awake today and eating follow BMP in am if able Calculus proximal R ureter with mild hydronephrosis s/p cystoscopy, right retrograde, right stent insertion, urethral dilation 10/09/24 urology following - outpatient follow up Sepsis secondary to Calculus proximal R ureter with mild hydronephrosis hypothermia, bradycardia improving huggar prn urine culture growing Klebsiella and group B strep continue IV ceftriaxone, started 10/09 blood cultures negative to date thrombocytopenia likely due to acute illness Platelets stable Hyperkalemia Resolved with lokelma Paroxysmal atrial fibrillation has been in sinus bradycardia recurrent bradycardia, hold coreg wound not resume hold Eliquis for hematuria Chronic Diastolic HF Low sodium diet Telemetry Hold BB for noted bradycardia Hypertension continue amlodipine DVT prophylaxis mechanical. Eliquis on hold code status: changed to DNR/DNI 10/12 patient requires ongoing inpatient stay for management of hypothermia, UTI, hematuria, bradycardia requiring close monitoring and high risk for decompensation We will need physical therapy re-evaluation when patient able to follow commands consistently Quality Stroke Does the patient have a stroke diagnosis?: No Reason for No Anti-thrombotic by Day Two: Contraindicated VTE Prior VTE?: No VTE Risk Level:: Medical - moderate - high VTE Device Contraindication: N/A - Device Ordered VTE Drug Contraindication: Treatment Not Indicated
--- NOTE | 2024-10-15 11:42 | MHC.SL.SWA ---
Speech Pathologist Impression: Risk of Aspiration, Oropharyngeal Dysphagia Risk of Aspiration Due to: Reduced Cognition Dysphasia Diet Status: CONTINUE on PUREE (NDD1) with THIN liquids (straws ok), pills crushed finely and put in puree. Patient needs 1-1 feed Liquid Consistency and Strategies for Safe Swallow: Liquid Intake Recommendation: Thin Liquid Intake Strategies: Small Sips Solid Food Consistency: Dietary Recommendations: Pureed (NDD1) Oral Medication Intake: Crushed with Puree Please contact the pharmacy regarding appropriate crushable or liquid drug formulations that are available whenever modified delivery is recommended. Compensatory Strategies and Precautions to be Taken for Safe Swallow: Sitting Upright (90 deg) Small Bites and Sips Alternate Liquids/Solids Rate of Ingestion Change Oral Check Supervision While Eating and Drinking for Safe Swallow: Total Assistance (1:1) Swallowing Recommended Treatments: Compens. Strategy Educat. Recommendation for Speech: Inpatient Speech Therapy Frequency/Duration: Daily M-F Date Range for Service Req: Timeline to reassess: Pump Assembler Clinican/Clinical Fellow: No Supervisory Statement: I have reviewed and agree with the student/clinical fellow's documentation: No Speech Language Pathologist: Lauryn Null M.A., CCC-APPLICATIONS SUPPORT ANALYST
[2024-10-15] MEDS: Nystatin Powder 15 GM BOTTLE 1 APPL TOPICAL ×2 (12:46→21:16)
--- NOTE | 2024-10-15 14:08 | MHC.CM.PN ---
Per rounds, Pt. is not ready to DC, she requires ongoing acute care for tx of: hypothermia, UTI, Hematuria, Bradycardia. She is now eating, and will be assisted out of bed to chair. DCP: home with family care and [facility].
[2024-10-15] MEDS: cefTRIAXone sodium 1 GM VIAL IVPUSH (16:52)
[2024-10-15] MEDS: amLODIPine Besylate 10 MG TABLET PO (21:04)
[2024-10-15] MEDS: Milk of Magnesia 30 ML ORAL.SUSP PO (21:04)
[2024-10-16] MEDS: Melatonin 3 MG TABLET 6 MG PO (00:10)
[2024-10-16] MEDS: 0.9 % Sodium Chloride Flush 3 ML SYRINGE IVFLUSH ×2 (00:20→09:23)
[2024-10-16 04:00] VITALS: BP 130/59; PULSE 60; RESP 16; TEMP 36; O2SAT 93
[2024-10-16 06:59] VITALS: BP 135/60; PULSE 52; RESP 18; TEMP 36.4; O2SAT 93
[2024-10-16] MEDS: Calcium Oyster Shell Elemental 500 MG TABLET PO (09:21)
[2024-10-16] MEDS: Docusate Sodium 100 MG CAPSULE PO (09:21)
[2024-10-16] MEDS: Loratadine 10 MG TABLET PO (09:21)
[2024-10-16] MEDS: Atorvastatin Calcium 40 MG TABLET PO (09:21)
[2024-10-16] MEDS: Ferrous Sulfate 324 MG TABLET.DR PO (09:22)
[2024-10-16] MEDS: Cholecalciferol (Vitamin D3) 25 MCG TABLET PO (09:22)
[2024-10-16] MEDS: Acetaminophen 325 MG TABLET 650 MG PO (09:24)
--- NOTE | 2024-10-16 10:31 | PM.DS ---
DS: Providers Provider Date of Service: 10/16/24 Date of admission: 10/08/24 21:55 Date of discharge: 10/16/24 Primary care physician: Balta Jeffrey MD Consults: 10/08/24 21:55 Consult to Urology Routine Consulting Provider: [facility] Reason for consultation: ureteral stone 10/10/24 22:10 Consult to Cardiology Routine Consulting Provider: [facility] Reason for consultation: bradycardia Has provider been notified: Yes 10/13/24 07:56 Consult to Psychiatry Routine Consulting Provider: [facility] Psych Covering Reason for consultation: dilirum, agitation;refusing po Has provider been notified: No DS: Diagnosis Discharge Diagnosis (1) Delirium: Status: Acute (2) Dementia: Status: Acute (3) Bradycardia: Status: Acute (4) Hypothermia: Status: Acute (5) Calculus of proximal right ureter: Status: Acute (6) Urinary tract infection: Status: Acute DS: Summary Hospital Course Hospital Course: History and physical as per admitting provider. Patient is a 78-year-old female Khmer-speaking only with past medical history advanced dementia, diastolic heart failure, atrial fibrillation on eliquis,, JOVANNI not on CPAP, anemia, CKD -3B, hypertension, hyperlipidemia, vitamin-D deficiency, constipation, GERD, urinary incontinence, osteoarthritis with right knee repair, hysterectomy, and obesity was recently on GLP 1 up until 2 months ago presents to the emergency room due to concerns for urosepsis. Patient is being managed by [facility] which provides in-home medical care. Two days prior patient was seen in the home and received IV hydration and a urine sample was obtained due to suspicion for UTI. Urinalysis came back positive and patient was treated with IM ceftriaxone in the home setting 10/07/2024. In-home medical coverage felt that patient was weak and blood pressure was borderline low and felt the patient should be seen in the emergency department for evaluation. Upon arrival patient was hypothermic with a body temp of 90.7 degrees and placed on a Aren Hugger. Patient also noted to be bradycardic, heart rate in the 50s. SD rate was normal 173. No obvious ischemic changes and troponin was negative. Patient received IV hydration. Periwick was placed. Blood cultures and urine samples were sent and patient was started on ceftriaxone IV. Patient currently awake and responsive able to follow some commands. Elastic Attacher Chainstitch present and with family HPI was obtained. Advanced directives note patient is a full code and that will remain in place until patient is seen by Urology for evidence of nephrolithiasis and mild hydronephrosis involving the right ureter. Patient denies any pain including in the flank area. UA correlates with these findings with a small amount of blood present. Vitals have improved and will hold off on additional IVF noting pt's CHF hx. Pt will be NPO after midnight. Urology consult placed. Case reviewed with Dr. Singleton for admission. Elastic Attacher Chainstitch present for interview. 78-year-old woman admitted with sepsis secondary to UTI, nephrolithiasis of right ureter with hydronephrosis with hospital course complicated by recurrent hypothermia, bradycardia and encephalopathy. Patient was noted to have hematuria and Eliquis stopped, she is status post cystoscopy, right retrograde, right stent insertion, urethral dilatation on 10/09/2024. She was to follow up with Urology outpatient. She developed sepsis because of this with hypothermia, bradycardia. Was treated with Aren Hugger, urine culture growing Klebsiella and group B strep. Treated with a total of 7 days of ceftriaxone with blood cultures remaining negative. Due to the bradycardia her Coreg was stopped and will be discontinued at discharge. Hematuria has improved significantly and we will continue her Eliquis. Seen and evaluated by speech therapy for dysphagia, patient's diet upgraded to NDD 1. MARIA R on CKD 3 secondary to vancomycin, the vancomycin stopped and her renal function is back to baseline. She had some mild hypernatremia secondary to decreased p.o. intake but this has resolved. Plan is to discharge patient home with family and physical therapy. Chronic diastolic congestive heart failure. Beta-luís stopped due to bradycardia, continue home dose of furosemide Hypertension. Continue amlodipine Dementia, unspecified. Time Attestation Discharge Coordination Time (in mins): 45 Quality: Safe Use of Opioids Does Pt have an Active Cancer Diagnosis on the Problem List?: No Quality: Stroke Does the patient have a stroke diagnosis?: No Physical Exam Vital Signs: Vital Signs: Last Vital Signs Temp 97.6 F 10/16/24 06:59 Pulse 52 10/16/24 06:59 Resp 18 10/16/24 06:59 BP 135/60 10/16/24 06:59 Pulse Ox 93 10/16/24 06:59 O2 Del Method Room Air 10/16/24 06:59 O2 Flow Rate 2 10/13/24 20:00 BMI result Body Mass Index 37.4 Appearing in no acute distress head is normocephalic atraumatic eyes pupils are PERRLA sclera is anicteric mouth throat mucous membranes are intact and moist neck is supple no lymphadenopathy, no JVD noted lung sounds are clear to auscultation heart regular rate rhythm, clear S1, S2 positive bowel sounds, abdomen is soft, nontender neuro patient is alert, confused DS: Data Data Completed and Pending Completed studies during hospitalization [Text1]: Procedures Dilation of Lower Esophagus, Via Natural or Artificial Opening Endoscopic (07/24/24) Dilation of Upper Esophagus, Via Natural or Artificial Opening Endoscopic (07/24/24) Excision of Esophagogastric Junction, Via Natural or Artificial Opening Endoscopic, Diagnostic (07/24/24) Excision of Lower Esophagus, Via Natural or Artificial Opening Endoscopic, Diagnostic (07/24/24) Excision of Stomach, Pylorus, Via Natural or Artificial Opening Endoscopic, Diagnostic (07/24/24) Excision of Upper Esophagus, Via Natural or Artificial Opening Endoscopic, Diagnostic (07/24/24) Replacement of Right Knee Joint with Synthetic Substitute, Cemented, Open Approach (05/27/21) Ultrasonography of Right and Left Heart, Transesophageal (11/03/22) Discharge Plan Discharge Anticipated Discharge Date/Time: 10/16/24 10:24 Patient Disposition: Home Health Service Discharge Diagnosis: Acute metabolic encephalopathy Bradycardia Hypothermia Hematuria UTI, completed antibiotics Dysphagia MARIA R on CKD stage 3 Hypernatremia Proximal right ureter calculus Sepsis Referrals: Name,MD Balta [Primary Care Provider] - 1 Week Discharge Medications: Continued (DME) walker Misc See Rx Instructions .ROUTE .MEDSUPPLY Qty: 1 0RF Rx Instructions: Folding front wheeled walker Eliquis 5 mg tablet 5 mg PO BID Qty: 180 3RF atorvastatin 40 mg tablet 40 mg PO DAILY 90 Days Qty: 90 3RF fluticasone propionate 50 mcg/actuation spray,suspension 1 - 2 spray intranasal DAILY PRN (Reason: Nasal Congestion) cholecalciferol (vitamin D3) 25 mcg (1,000 unit) tablet 1 tab PO DAILY acetaminophen 325 mg Tablet 650 mg PO Q6H PRN (Reason: Pain, Mild (Pain Scale 1-3)) 30 Days Qty: 240 0RF cyanocobalamin (vitamin B-12) 1,000 mcg/mL solution 1,000 mcg IM Q28D amlodipine 10 mg tablet 10 mg PO BEDTIME furosemide 40 mg tablet 40 mg PO DAILY calcium carbonate 600 mg calcium (1,500 mg) tablet 600 mg PO DAILY docusate sodium [Stool Softener] 100 mg capsule 100 mg PO DAILY mirtazapine 15 mg tablet 22.5 mg PO BEDTIME ferrous gluconate 324 mg (38 mg iron) tablet 324 mg PO DAILY Linzess 145 mcg capsule 145 mcg PO DAILY Jardiance 10 mg tablet 10 mg PO DAILY omeprazole 40 mg capsule,delayed release(DR/EC) 40 mg PO BID@0630,1630 oxybutynin chloride 5 mg tablet 5 mg PO BID cetirizine 10 mg tablet 10 mg PO DAILY Discontinued carvedilol 25 mg tablet 25 mg PO BID Qty: 180 1RF cefpodoxime 200 mg tablet 200 mg PO BID Discharge Orders: Discharge Order (Routine); Ordered 10/16/24 Ordered By: Connie Faria Diet: Advance to usual diet Activity on Discharge: As tolerated Stand Alone Forms: Patient Portal Discharge page Print Language: Khmer Care Plan Goals: Stop carvedilol due to bradycardia Health Concerns: Acute metabolic encephalopathy Bradycardia Hypothermia Hematuria Dysphagia MARIA R on CKD stage 3 Hypernatremia Proximal right ureter calculus Sepsis Plan of Treatment: Follow-up with primary care provider as needed Take all medications as prescribed Assessment: See discharge summary
--- NOTE | 2024-10-16 10:42 | P.F2F_ITS ---
Service Date Service Date: 10/16/24 Encounter Date of encounter: 10/16/24 Reasons for Services Signs and symptoms assessed: Weakness from hospitalization Reason for physical therapy: home safety and mobility Homebound: Leaving the home is medically contraindicated at this time without the asist of a device and/or another person due th the listed conditions above and below. Reason homebound: weakness related to hospital stay Certification: Based on the above findings, I certify that this patient is confined to the home and needs intermittent correction care, physical therapy and/or speech therapy, or continues to need occupational therapy. The patient is under my care, and I have initiated the establishment of the plan of care. The patient will be followed by a physician who will periodically review the plan of care. Time Spent With Patient Time: Total time managing care of this patient today ____ minutes.
--- NOTE | 2024-10-16 10:55 | MHC.CM.PN ---
IMM 10/16/24 DELIVERED TO [facility]TR [facility] D/T PT'S ADVANCED DEMENTIA, PT DISHARGING HOME W/NEW [facility] FOR HOME PT, IF DELAY IN SERVICES [facility] AGREEABLE TO [facility] OR OTHER VNA, [facility] AGREEABLE TO DC PLAN AND PT'S SON LIKELY AT BEDSIDE AND WILL TRANSPORT PT HOME.
[2024-10-16 10:57] VITALS: BP 128/62; PULSE 52; RESP 18; TEMP 36.3; O2SAT 98
[2024-10-16] MEDS: Nystatin Powder 15 GM BOTTLE 1 APPL TOPICAL (12:04)
[2024-10-16] MEDS: Cyanocobalamin (Vitamin B-12) 1,000 MCG/ML VIAL 1000 MCG IM (12:34)
== END 2024-10-16 13:45 | disposition home health service (06) | DRG 853 ==
LOC: HO.ED 22:10 → HO.EDOVER 22:17 → HO.IMC 10-09 00:32
PROVIDERS: Nurse Practitioner Family; Physician Assistant Medical; Urology; Admitting Provider Student in an Organized Health Care Education/Training Program; Emergency Provider Emergency Medicine; PCP Internal Medicine Geriatric Medicine; Visit Provider Nurse Practitioner Acute Care
PROC: 0T768DZ Dilation of Right Ureter with Intraluminal Device, Via Natural or Artificial Opening Endoscopic (ICD-10-PCS; principal; 2024-10-09 11:00)
DX: A41.9 Sepsis, unspecified organism (principal); G92.8 Other toxic encephalopathy; F05 Delirium due to known physiological condition; I50.32 Chronic diastolic (congestive) heart failure; I13.0 Hypertensive heart and chronic kidney disease with heart failure and stage 1 through stage 4 chronic kidney disease, or unspecified chronic kidney disease; N13.6 Pyonephrosis; N17.9 Acute kidney failure, unspecified; E87.0 Hyperosmolality and hypernatremia; I48.0 Paroxysmal atrial fibrillation; T36.8X5A Adverse effect of other systemic antibiotics, initial encounter; R00.1 Bradycardia, unspecified; Z66 Do not resuscitate; R31.9 Hematuria, unspecified; D69.59 Other secondary thrombocytopenia; R13.10 Dysphagia, unspecified; R68.0 Hypothermia, not associated with low environmental temperature; N18.32 Chronic kidney disease, stage 3b; N35.92 Unspecified urethral stricture, female; E87.5 Hyperkalemia; F03.90 Unspecified dementia, unspecified severity, without behavioral disturbance, psychotic disturbance, mood disturbance, and anxiety; Z20.822 Contact with and (suspected) exposure to COVID-19; Z79.01 Long term (current) use of anticoagulants; Z79.899 Other long term (current) drug therapy
CPT/HCPCS: 0241U; 36415; 71045; 74177; 80048; 80076; 81001; 82533; 82565; 82803; 82947; 83036; 83605; 83690; 83735; 83880; 84145; 84439; 84443; 84481; 84484; 85014; 85018; 85025; 85027; 85610; 86140; 86850; 86900; 86901; 87040; 87086; 87088; 87147; 87186; 92526; 92610; 93005; 97163; 99285; C1758; C1769; C2617; J0461; J0690; J0696; J1100; J1885; J2060; J2250; J2359; J2470; J2704; J3010; J3370; J3420; J7120; P9047; Q9967

== ENCOUNTER → 2024-10-08 17:20 | Outpatient (BNV) | payer OTHER, SELFPAY | PROVIDERS: Admitting Provider Student in an Organized Health Care Education/Training Program; Emergency Provider Emergency Medicine; Visit Provider Internal Medicine | DX: R00.1 Bradycardia, unspecified (principal) | CPT/HCPCS: 93010 ==

== ENCOUNTER → 2024-10-08 17:21 | Outpatient (BNV) | payer OTHER, SELFPAY | PROVIDERS: Emergency Provider Emergency Medicine; Visit Provider Radiology Diagnostic Radiology | DX: N20.1 Calculus of ureter (principal); I51.7 Cardiomegaly; J81.1 Chronic pulmonary edema; R06.89 Other abnormalities of breathing; R91.8 Other nonspecific abnormal finding of lung field | CPT/HCPCS: 71045; 74177 ==

== ENCOUNTER 2024-10-08 21:55 | Outpatient (BNV) | payer OTHER, SELFPAY | END 2024-10-13 20:22 | PROVIDERS: Admitting Provider Student in an Organized Health Care Education/Training Program; Emergency Provider Emergency Medicine; PCP Internal Medicine Geriatric Medicine; Visit Provider Internal Medicine | DX: I51.7 Cardiomegaly (principal); R00.1 Bradycardia, unspecified | CPT/HCPCS: 93010 ==

== ENCOUNTER 2024-10-08 21:55 | Outpatient (BNV) | payer OTHER, SELFPAY | END 2024-10-09 16:54 | PROVIDERS: Admitting Provider Student in an Organized Health Care Education/Training Program; Emergency Provider Emergency Medicine; PCP Internal Medicine Geriatric Medicine; Visit Provider Internal Medicine | DX: R00.1 Bradycardia, unspecified (principal) | CPT/HCPCS: 93010 ==

== ENCOUNTER 2024-10-08 21:55 | Outpatient (BNV) | payer OTHER, SELFPAY | END 2024-10-10 21:52 | PROVIDERS: Admitting Provider Student in an Organized Health Care Education/Training Program; Emergency Provider Emergency Medicine; PCP Internal Medicine Geriatric Medicine; Visit Provider Internal Medicine | DX: I49.9 Cardiac arrhythmia, unspecified (principal); R00.1 Bradycardia, unspecified | CPT/HCPCS: 93010 ==

== ENCOUNTER → 2024-10-08 21:55 | Outpatient (BNV) | payer OTHER, SELFPAY | PROVIDERS: Admitting Provider Student in an Organized Health Care Education/Training Program; Emergency Provider Emergency Medicine; PCP Internal Medicine Geriatric Medicine; Visit Provider Internal Medicine | DX: R00.1 Bradycardia, unspecified (principal) | CPT/HCPCS: 99223 ==

== ENCOUNTER → 2024-10-08 21:55 | Outpatient (BNV) | payer OTHER, SELFPAY | PROVIDERS: Admitting Provider Student in an Organized Health Care Education/Training Program; Emergency Provider Emergency Medicine; PCP Internal Medicine Geriatric Medicine; Visit Provider Clinical Nurse Specialist Psychiatric/Mental Health, Adult | DX: F03.90 Unspecified dementia, unspecified severity, without behavioral disturbance, psychotic disturbance, mood disturbance, and anxiety (principal); R41.0 Disorientation, unspecified | CPT/HCPCS: 99222 ==

== ENCOUNTER → 2024-10-08 21:55 | Outpatient (BNV) | payer OTHER, SELFPAY | PROVIDERS: Admitting Provider Student in an Organized Health Care Education/Training Program; Emergency Provider Emergency Medicine; Visit Provider Nurse Practitioner Family | DX: F03.90 Unspecified dementia, unspecified severity, without behavioral disturbance, psychotic disturbance, mood disturbance, and anxiety (principal); A41.9 Sepsis, unspecified organism; R00.1 Bradycardia, unspecified; N30.00 Acute cystitis without hematuria; N20.1 Calculus of ureter | CPT/HCPCS: 99232; 99233; 99239; 99497; 99499 ==

== ENCOUNTER → 2024-10-08 21:55 | Outpatient (BNV) | payer OTHER, SELFPAY | PROVIDERS: Admitting Provider Student in an Organized Health Care Education/Training Program; Emergency Provider Emergency Medicine; Visit Provider Urology | DX: N20.1 Calculus of ureter (principal); N39.0 Urinary tract infection, site not specified; N35.92 Unspecified urethral stricture, female | CPT/HCPCS: 52332; 74420; 99222 ==

== ENCOUNTER 2024-10-25 13:09 | Outpatient (AMB) | payer OTHER, SELFPAY ==
--- NOTE | 2024-10-25 13:11 | A.OFFVIS_ITS ---
Vital Signs 10/25/24 13:16 10/25/24 13:29 10/25/24 13:30 Height 5 ft 2 in BMI Reason not done Patient refused/unable BP 160/50 H 158/68 H 110/68 Blood Pressure Location Lt brachial Lt brachial Lt brachial Position Supine Sitting Standing Pulse 52 49 L 57 Pulse Source Pulse Oximeter Pulse Oximeter Pulse Oximeter Intake Visit Reasons: F/U after Inpt Public Defender Required: Yes Public Defender Name: BRANT [id number] Allergies Penicillins [PENICILLINS] Allergy (Intermediate, Verified 10/08/24 16:36) NAUSEA/HIVES metformin Adverse Reaction (Unknown, Verified 10/08/24 16:36) Diarrhea HPI Comments Details: This is an 78-year-old female patient coming in for a hospital discharge follow- up. Patient arrives in a wheelchair accompanied by her daughter and BUFFING WHEEL FORMER MACHINE. A research worker encyclopedia was used throughout the visit. The patient with a history of hypertension, hyperlipidemia, sleep apnea, diastolic heart failure, and AFib. Patient was recently hospitalized for urosepsis for which she was treated with IV antibiotics and underwent cystoscopy with right ureteral stent placement and is currently with a Gallegos catheter. During this visit due to some hematuria Eliquis was held however continued later on when it improved. Additionally, carvedilol was discontinued due to episodes of bradycardia. Today, the patient reports experiencing dizziness upon standing for the past 2 days. She denies any associated exertional chest pain, shortness of breath, palpitations, fatigue, orthopnea, PND, lower leg edema, presyncope, or syncope. She is primarily in wheelchair and has sedentary lifestyle. Patient is otherwise reporting compliance with all her medications. [facility] Medical History (Updated 10/25/24 @ 14:10 by Tonio Laws NP) Chronic diastolic heart failure Hydronephrosis, right Ureteral stone Dementia Calculus of proximal right ureter CKD (chronic kidney disease) Renal insufficiency Epigastric pain Tubular adenoma of colon Preop cardiovascular exam Urinary urgency Pneumonia Hospital discharge follow-up Asthma MARIA R (acute kidney injury) GERD (gastroesophageal reflux disease) Diabetes Osteoarthritis Hyperlipidemia Hypertension JOVANNI (obstructive sleep apnea) Surgical History Hx of cataract surgery Status post total knee replacement, right History of arthroplasty of right knee Hx of colonoscopy H/O: hysterectomy History of salpingoophorectomy History of tonsillectomy Family History Father HTN (hypertension) Mother HTN (hypertension) CVD (cardiovascular disease) Daughter Bone cancer Father Cancer Social History Household Members: Family Housing: House Are you a primary healthcare translator to a significant other at home: No Do you presently have visiting nurse or other home services: No Unable to assess alcohol history related to: Unknown Alcohol intake: never Comment: family at bedside Patient Tobacco Use Status: Never used Tobacco e-Cigarette/Vaping Use: Never Used Second Hand Smoke Exposure: No service: No Current occupational status: retired Current occupation: Right handed Review of Systems Const Denies weakness ENT Reports dizziness Card Denies chest pain, Denies chest pain with activity, Denies syncope, Denies rapid heart rate, Denies pedal edema, Denies edema, Denies leg edema, Denies lightheadedness, Denies palpitations, Denies dyspnea, Denies dyspnea on exertion and Denies orthopnea Resp Denies cough, Denies dyspnea and Denies dyspnea on exertion GI Denies hematochezia and Denies change in stool character Musc Denies abnormal gait, Denies muscle cramps, Denies muscle weakness, Denies numbness, Denies radiating pain into limb and Denies tingling Neuro Denies abnormal gait, Reports dizziness, Denies syncope, Denies numbness, Denies tingling and Denies weakness Endo Denies palpitations Physical Exam Vital Signs: Last Vital Signs Pulse 57 10/25/24 13:30 BP 110/68 10/25/24 13:30 Const General: cooperative, healthy appearing, comfortable and no acute distress Orientation/consciousness: patient oriented x3 HEENT Head: Yes normal to inspection Neck Neck: Yes normal visual inspection, Yes trachea midline and Yes supple Chest Chest palpation & inspection: normal inspection of the chest Resp Effort & Inspection: normal respiratory effort Auscultation: clear to auscultation bilaterally, no crackles, no rales, no rhonchi and no wheezes Cardio Jugular venous distension: no JVD Palpation: normal PMI Rate: bradycardic Rhythm: regular rhythm Heart sounds: S1 normal heart sound present, S2 normal heart sound present, no click, no gallops, no murmurs and no rubs Peripheral pulses: Peripheral pulses 2+ throughout GI Inspection: Yes normal to inspection Palpation (GI): Soft to palpation Auscultation: normal bowel sounds Skin General skin exam: no rashes or lesions noted Neuro General: patient oriented x3 Extrem General: Yes normal to inspection, No no pedal edema and No calf tenderness Psych Appearance: grossly normal Mental Status: mental status grossly normal Speech and movement: Normal speech and movement present Assessment & Plan Assessment & Plan (1) Atrial fibrillation: Code(s): I48.91 - Unspecified atrial fibrillation Category: Medical Plan: With a history of paroxysmal AFib. Heart rate today regular. Continue Eliquis for full anticoagulation therapy. No reported signs of bleeding. Due to her bradycardia, patient's beta-luís was stopped during hospital stay. (2) Chronic diastolic heart failure: Code(s): I50.32 - Chronic diastolic (congestive) heart failure Category: Medical Plan: Clinically euvolemic. Continue diuretics, Jardiance, and amlodipine. We will repeat an echo in 6 months' time. (3) Hypertension: Code(s): I10 - Essential (primary) hypertension Category: Medical Plan: Patient is sitting blood pressure was noted to be elevated. Given her reports of dizziness, orthostatic vitals were obtained and found to be positive. Clinically, the patient appears euvolemic and does not show any signs of dehydration. Given her age and overall frailty, no changes will be made to her current regimen at this time. Family is in agreement with a conservative approach. We will continue to monitor his symptoms over the next 2 weeks. If dizziness persists, we will re-evaluate her management plan at that time. The patient was advised to monitor her blood pressures at home and maintain a log to bring to her next visit. The goal blood pressure for patient being less than 130/80. We will also check for some electrolyte imbalance. (4) JOVANNI (obstructive sleep apnea): Code(s): G47.33 - Obstructive sleep apnea (adult) (pediatric) Category: Medical Plan: Does not use CPAP therapy. Advised its use and benefits for her cardiovascular well being. (5) Hyperlipidemia: Code(s): E78.5 - Hyperlipidemia, unspecified Category: Medical Plan: Continue statin therapy. LDL goal less than 70. (6) Hospital discharge follow-up: Code(s): Z09 - Encounter for follow-up examination after completed treatment for conditions other than malignant neoplasm Plan: As above. Patient states her catheter is to be removed next week. Advised heart healthy diet, regular exercise as tolerated, med compliance, and management of her vascular risk factors. We will follow up in the office in 2 weeks' time. In the interim, patient will call us with any concerns or change in symptoms. This note was generated using voice recognition software. While every effort has been made to ensure accuracy and proper core assembly supervisor, there may be occasional errors that could affect the content or meaning of the described symptoms. Orders: Orders CA echo transthoracic complete 6 Months I50.32 - Chronic diastolic (congestive) heart failure Basic Metabolic Panel Today I10 - Essential (primary) hypertension Coding Level of Care Code Est Pt Level 4 (30404) Complex EM visit Add On G2211 Diagnoses Atrial fibrillation I48.91 Chronic diastolic heart failure I50.32 Hypertension I10 JOVANNI (obstructive sleep apnea) G47.33 Hyperlipidemia E78.5 Hospital discharge follow-up Z09 Time Spent (min) 34 Comment Time spent in reviewing the chart, test results, assessment, counseling and documentation.
[2024-10-25 13:16] VITALS: BP 160/50; PULSE 52
[2024-10-25 13:29] VITALS: BP 158/68; PULSE 49
[2024-10-25 13:30] VITALS: BP 110/68; PULSE 57
--- OUTSIDE RECORDS SUMMARY | 2024-10-25 16:08 | XMS_ITS | Encounter Summary ---
Author Organization [employer] Address [address] [facility] [address] 7t [place] [address] Care Team Providers Care Scheduling Representative Name Role Phone Name, Balta MAYER Primary Care Provider [phone] Encounter Details Date Type Department Care Team ([facility] st Contact Info) Description 10/19/2024 Telephone [facility] CHC MED & PEDS [address] [place] [address] Kishan Warner MD [address] [place] [address] Social History Tobacco Use Types Packs/Day Years [...] encounter Miscellaneous Notes * Telephone Encounter - Kishan Warner MD - 10/19/2024 7:44 PM EDT Call received from the answering service at 5:11 PM regarding Mrs. Victorina Mike. Suzie from [facility] visiting nurse reports that she went to see the patient to set up physical therapy and herheart rate was 44. She was asymptomatic. No chest pain/palpitation/dizziness or any other complaints. She was on carvedilol and she was supposed to stop that medication as discharge. Unclear if the medication was resumed diet patient return home after her hospitalization. I called her daughter at [phone]. No answer. Message left to inform her that I will come back tofind out how Mrs. Victorina Mike is doing and to find out if she is still off carvedilol as recommended during the hospitalization.. Second call at 9:05 . No answer. Message left to contact the answering service to report how Ms Victorina Mike is doing. documented in this encounter Plan of Treatment Upcoming Encounters Date Type Department Care Team (Late st Contact Info) Description 11/02/2024 1:00 PM EDT Office Visit [facility] MEDICINE [address] [place] [address] Ruslan Holly, AMAN [address] [place] [address] 12/17/2024 1:30 PM EDT Office Visit [facility] OPTOMETRY [address] [place] [address] Harry, Esther, OD [address] [place] [address] 01/21/2025 10:00 AM EDT Office Visit [facility] MEDICINE [address] [place] [address] Name, MD Balta [address] [place] [address] documented as of this encounter Visit Diagnoses Not on filedocumented in this encounter Additional Health Concerns Assessment Noted Time PHQ-9 Depression Total Score: 0 09/20/19 24 1:15 PM EDT documented as of this encounter Care Teams Scheduling Representative Relationship Specialty Start Date End Date Name, MD Balta [address] [place] [phone] PCP - General Internal Medicine 06/14/22 Samir VNA 08/05/24 documented as of this encounter
--- OUTSIDE RECORDS SUMMARY | 2024-10-25 16:08 | XMS_ITS | Encounter Summary ---
Author Organization [employer] Address [address] [facility] [address] 7t [place] [address] Care Team Providers Care Reproduction Technician Name Role Phone Name, Balta MAYER Primary Care Provider [phone] Encounter Details Date Type Department Care Team (Late st Contact Info) Description 07/20/2024 Community Care Management [facility] MEDICINE [address] [place], [place] [phone] [employer] Link, Physician, Social History Tobacco Use [...] Description 11/02/2024 1:00 PM EDT Office Visit [facility] MEDICINE [address] [place] [address] Ruslna Holly CNP [address] [place] [address] 12/17/2024 1:30 PM EDT Office Visit [facility] OPTOMETRY [address] [place] [address] Harry, Esther, OD 230 [place] [address] 01/21/2025 10:00 AM EDT Office Visit [facility] MEDICINE [address] [place] [address] Name, MD Balta [address] [place] [address] documented as of this encounter Visit Diagnoses Not on filedocumented in this encounter Additional Health Concerns Assessment Noted Time PHQ-9 Depression Total Score: 0 09/20/19 24 1:15 PM EDT documented as of this encounter Care Teams Reproduction Technician Relationship Specialty Start Date End Date Balta Jeffrey MD [address] [place] [address] PCP - General Internal Medicine 06/14/22 Elbert [facility] 08/05/24 documented as of this encounter
--- OUTSIDE RECORDS SUMMARY | 2024-10-25 16:08 | XMS_ITS | Continuity of Care Document ---
Author Organization [facility] Address [address] [place] [address] Phone Care Team Providers Care Printing Machinist Name Role Phone MD LEYLA Schreiber, Julia [...] Provider Providers Copied on Encounter [facility], [address], [place], [place], [id number], [place] tel:[phone] [facility] blurry vision (chief complaint) Combined forms of age-related cataract, bilateralDry eye syndrome of bilateral lacrimal glandsOpen angle with borderline findings, high risk, bilateral MD Julia Kitchen. [address] [facility], [place], [place], [id number] , [place]. tel: [phone] Referring Provider: Del Camp MD, [facility] [address] , [place], [address]. tel:[phone] Family History Family Member Type Diagnosis Age At Onset No Information Payers Payer name Insurance type Covered alliance party ID randy goff(s) [facility] CI [id number] Social History Type Description Quantity Date Captured [...]
--- OUTSIDE RECORDS SUMMARY | 2024-10-25 16:08 | XMS_ITS | Encounter Summary ---
Author Organization [employer] Address [address] [facility] [address] 7[address] [place] [address] Care Team Providers Care Musical Instruments Assembler Name Role Phone Name, Balta MAYER Primary Care Provider [phone] Encounter Details Date Type Department Care Team (Late st Contact Info) Description 04/20/2023 Abstract [facility] MEDICINE [address] [place] [address] Name, MD Balta [address] [place] [address] Social History Tobacco Use Types Packs/Day Years [...] Description 11/02/2024 1:00 PM EDT Office Visit [facility] MEDICINE [address] [place] [address] Ruslan Holly, GUITAR PLAYER [address] [place] [address] 12/17/2024 1:30 PM EDT Office Visit [facility] OPTOMETRY [address] [place] [address] Harry, Esther, OD [address] [place] [address] 01/21/2025 10:00 AM EDT Office Visit [facility] MEDICINE [address] [place] [address] Name, MD Balta [address] [place] [address] documented as of this encounter Visit Diagnoses Not on filedocumented in this encounter Additional Health Concerns Assessment Noted Time PHQ-9 Depression Total Score: 4 08/31/19 23 10:26 AM EST documented as of this encounter Care Teams Musical Instruments Assembler Relationship Specialty Start Date End Date Name, MD Balta [address] [place] [address] PCP - General Internal Medicine 06/14/22 Charlotte [facility] 08/05/24 documented as of this encounter
--- OUTSIDE RECORDS SUMMARY | 2024-10-25 16:08 | XMS_ITS | Data Portability ---
Author Organization [employer] Address [address] [place] [address] Care Team Providers Care Tabber Name Role Phone NAME, JOSE Primary Care Provider HIM CHRIS OTHER Assessment Encounter Date Assessment Date Assessment LastModified by Organization Details LastModified Time 10/07/2024 10/07/2024 Mrs. Amado Mike was evaluated for confusion and urinary symptoms. On assessment she is afebrile, mildly bradycardic and hypertensive. Per factory hand assessment she is independently ambulatory with a [...] Assessment and Plan as documented by the Rehabilitation Medicine Physician. We discussed the diagnostic uncertainty of home [...] Assessment and Plan as documented by the Rehabilitation Medicine Physician. We discussed the diagnostic uncertainty of home [...] agreeable they are requesting she go to [facility]. EMS initiated by [facility] provider, I called report to wire [email or web address] at [facility] ER [email or web address] Not available 10/08/2024 17:38:59 Plan of Treatment Reminders Order Date Submit Date Provider Last Modified By Organization Details Last Modified Time Details Appointments None recorded. Lab glucose, fingerstick , blood 2024 [email or web address], [address] 15:20:09 urinalysis, dipstick [address], [address] 19:19:04 BMP, serum or plasma [address], [address] 19:19:23 culture, urine 2024 025 [place] [facility] (Centralized Electronic Ordering - All Locations), Patient Can Go To The Location Of Their Choice, [address] 12:05:39 Referral None recorded. Procedures None recorded. Surgeries None recorded. Imaging electrocard iogram [address], [address] 00:24:18 Medication Orders sodium chloride 0.9 % intravenous solution [email or web address] [facility][id number], [address] [place] [address], [address], 15:21:50 cefpodoxime 200 mg tablet [address] [facility][id number], [address] [place] [address], [address], 14:03:27 ceftriaxone 1 gram solution for injection [email or web address] [facility] #[id number], [address] [place] [address], [address], 14:11:56 sodium chloride 0.9 % intravenous solution [email or web address] [facility][id number], [address] [place] [address], [address], 14:12:07 Patient TargetsNo targets recorded. Patient InstructionsNo instructions recorded. Reason for Referral None Reported. Results Created Date Observation Date Name Description Value Unit Range Abnormal Flag Note LastModifiedBy Organization Detail LastModifiedTime 10/08/1910/09/2024 URINE CULTU RE,CO MPREH ENSIV E urine culture,comp rehensive Final report abnormal Not Available [facility] ([facility]) [address] [facility], [place], [address], 10/09/2024 14:06:17 10/08/19 25 10/09/2024 URINE CULTU RE,CO MPREH ENSIV E result 1 Klebsi abhi oxytoc a abnormal Great er than 100,0 00 colon y formi ng units per mL Not Available [facility] ([facility]) [address] [facility], [place], [address], 10/09/2024 14:06:17 10/08/19 25 10/09/2024 URINE CULTU RE,CO MPREH ENSIV E result 2 Not applic able Not Available [facility] ([facility]) [address] [facility], [place], [address], 10/09/2024 14:06:17 10/08/19 25 10/09/2024 URINE CULTU RE,CO MPREH ENSIV E antimicrobia l susceptibili ty Commen t S = Susce ptibl e; I = Inter media te; R = Resis tant P = Posit eugene; N = Negat eugene MICS are expre ssed in micro grams per mL Antib iotic RSLT# 1 RSLT# 2 RSLT# 3 RSLT# 4 Amoxi cilli n/Cla vulan ic Acid S Ampic illin R Cefep vasquez S Cefox itin S Cefpo doxim e S Ceftr iaxon e S Cipro floxa laurie S Ertap enem S Genta micin S Levof loxac in S Merop enem S Nitro furan toin S Tetra cycli ne S Tobra mycin S Trime thopr im/Foster lfa S Not Available [facility] ([facility]) [address] [facility], [place], [address], 10/09/2024 14:06:17 10/09/19 25 10/08/2024 gluco se, finge rstic k, blood Blood Glucose: mg/dl 220 Not Available [facility] - [address], [address] 10/08/2024 15:18:52 10/09/1910/08/2024 odette augr am No observ ation record ed. [address], [address] 10/08/2024 18:13:27 Result Notes None recorded. Procedures Surgical History None recorded. Imaging Results Imaging Date Name Status LastModified by Organization Details LastModified Time 10/08/2024 electrocardiogram completed [address], [address] 10/08/2024 18:13:27 Procedure Notes None recorded. Medical Equipment None Reported. Allergies Allergen ID Allergen Name Allergen Category Reaction Reaction Severity Criticality Documentation Date Start Date Code Code System Note Provider Name and Address Organization Details Recorded Time 97133 Product containin g penicilli n (product) medicatio n Not available Not available Not available 10/07/2024 89644 8001 SNOMED Not Available [facility] - production 5 11:09:12 Medications Name Sig Start Date Stop [...] No t Available cefpodoxime 200 mg tablet TAKE 1 TABLET BY MOUTH TWICE A DAY FOR 7 DAYS active Not Available Not Available No t Available omeprazole 40 mg capsule,alix yed release TAKE [...] % 134 mm[Hg] 76 mm[Hg] Not Available Eligible 5 13:57:20 Date Recorded Respiratory rate Body height Body weight Oxygen saturation Oxygen saturation in Arterial blood by Pulse oximetry Heart rate Systolic blood pressure Diastolic blood pressure Provider Name and Address Organization Details Last Updated DateTime 5 14 /min 157.48 cm 34666.6 g 96 % 96 % 40 /min 109 mm[Hg] 63 mm[Hg] Not Available Eligible 5 15:17:36 Social History None recorded. Functional Status None recorded. Mental Status None recorded. Family History Nothing Reported. Medical History No medical history recorded. Gynecological HistoryNo gynecological history recorded. Obstetrics History GPAL:G 0 P 0 0 0 0 Past Encounters Encounter ID Performer Location Encounter Start Date Encounter Closed Date Diagnosis/Indication Diagnosis SNOMED-CT Code Diagnosis ICD10 Code Diagnosis Note [id number] ROSALIO MCARTHUR MD Main - [facility] [address] [place] [phone] 10/07/2024 13:57:18 10/07/2024 14:53:52 Acute urinary tract infection 342474180 N39.0 [id number] Charlotte Cao MD Main - [address] [address] 10/08/2024 15:17:33 10/08/2024 23:30:26 Altered mental status 928648145 R41.82 posible urosepsis patient is borderline hypotensiv e, clammy,, she is not hypoglycem ic. EKG reveals sinus bradycardi a at a rate of 48/there is a ND visible but the EKG did not capture [...] Monzon Member ID Guarantor Name 10/07/2024 1 [facility] - DOS ON OR AFTER 2022 - DUAL ELIGIBLE - INTERMEDIATE OPTIONS AND ONE CARE (MEDICARE REPLACEMENT/ADV ANTAGE - HMO) Victorina Mike [id number] Victorina Mike 10/08/2024 1 [facility] - DOS ON OR AFTER 2022 - DUAL ELIGIBLE - INTERMEDIATE OPTIONS AND ONE CARE (MEDICARE REPLACEMENT/ADV ANTAGE - HMO) Victorina Mike [id number] Victorina Mike Notes Date Note Type Note [...] Mellitus Type 2 PMH Reviewed at 10/07/2024 Allergies Reviewed at 10/07/2024 Comments: Groundskeeping Maintenance Worker verified the Pt.'s name//address and phone number. [...] the counter medication - Wellness check requested. Rehabilitation Medicine Physician Organization Information for José Miguel Romero [employer] Legal Name: [facility] [employer] Address: [address] [place] [address], [place] [address], Dictating Machine Mechanic: Juan Wilson MD CLIA No.: [id number] Rehabilitation Medicine Physician POC Test Results from José Miguel Romero [...] .................... .................... .................... .................... .................... .................... . Rehabilitation Medicine Physician Note From José Miguel Romero: This visit [...] questions and are agreeable to this plan. [facility] Lab Orders: urinalysis, dipstick: Performed BMP, serum or plasma: Performed culture, urine: Performed [facility] Medication Orders: ceftriaxone 1 gram solution for injection: Administered sodium chloride 0.9 % intravenous solution: Administered .................... .................... .................... .................... .................... .................... .................... . [facility] Consulted: Rosalio Mcarthur .................... .................... .................... .................... .................... .................... .................... . Disposition: Moon MCARTHUR MD [address] [place] [address],[address], [place], [address], [employer] 10/07/2024 14:53:49 10/08/2024 text/html CRC Nurse Triage [...] 2PMH Reviewed at 10/08/2024:56Allergies Reviewed at 10/08/2024:56Comments: Groundskeeping Maintenance Worker verified the name//address and phone number. Son [...] s/s and seek emergency treatment if need Rehabilitation Medicine Physician Organization Information for Elma Mensah [employer] Legal Name: [employer] Address: [address] [place] [address], Dictating Machine Mechanic: Morro Kwon MD CLIA No.: [id number] Rehabilitation Medicine Physician POC Test Results from Elma Mensah CAIN EKG (15:22:55) EKG test performed. Attachments uploaded as part of this test result can be found under Documents section. Blood Glucose Measurement (15:22:57) Blood Glucose: 220 mg/dL .................... .................... .................... .................... .................... .................... .................... . Rehabilitation Medicine Physician Note From Elma Mensah: SHELLEY makes pt contact. She is found seated in a recliner in the living room of a small and clean apartment where she lives w/ family. She makes eye contact w/ MI and says hello. She is not in acute distress. She appears to be mildly pale; no ashen or jones color are noted. She is not tripoding, using accessory muscles to breathe, and no stridor or sonorous respirations are present. There is no facial droop or one-sided weakness observed, and she is not bleeding anywhere. Pt is Thai-speaking only and family is present and on the phone to provide hx and translation. Family tells SHELLEY the pt was seen by [facility] yesterday and dx w/ a UTI, [...] more profound to the family. Son tells SHELLEY She just isn't herself! Pt offers no complaints to SHELLEY. She denies cp, sob, n/v/d, abd pain. She is intermittently somnolent during the visit and exam, often closing her eyes for several minutes. She is able to follow commands well. Daughter tells SHELLEY the swelling in her feet and LEs seems to be a little bit worse over the past couple days. [facility] obtains vital signs and pt is [...] touch. Pt continues to be sleepy . [facility] contacts [facility] and discusses the above. Out of concern for urosepsis, [facility] and [facility] feel pt should be transported to the hospital for further evaluation and care. Family is amendable to the plan. [facility] orders FSBG, a 12-lead EKG, and 500mls NS fluid bolus. Finger stick and EKG are obtained. A 20ga IV is established in the L AC and 500mls NS are administered. [facility] calls 911 and pt is transported to [facility] by [facility]. [facility] is clear. Report completed by NISHA Mensah [id number]. [facility] Lab Orders: glucose, fingerstick, blood: Performed [facility] Medication Orders: sodium chloride 0.9 % intravenous solution: Administered .................... .................... .................... .................... .................... .................... .................... . [facility] Consulted: Charlotte Cao .................... .................... .................... .................... [...] out gram-negative rods. Charlotte Cao MD [address] [facility],[address], [place], [address], [employer] 10/08/2024 17:39:10 OBGyn Episode No OBEpisode recorded.
--- OUTSIDE RECORDS SUMMARY | 2024-10-25 16:08 | XMS_ITS | Encounter Summary ---
Author Organization [employer] Address [address] [facility] 7t [place] [address] Care Team Providers Care Clinical Services Director Name Role Phone Name, Balta MAYER Primary Care Provider [phone] Reason for Visit * Reason Onset Date Comments Nurse Triage 10/24/2024 Encounter Details Date Type Department Care Team (Late st Contact Info) Description 10/24/2024 Telephone [facility] MEDICINE [address] [place] [address] Name, MD Balta [address] [place] [address] Nurse Triage Social History Tobacco Use Types Packs/Day Years [...] encounter Miscellaneous Notes * Telephone Encounter - Fina Dominguez RN - 10/24/2024 4:06 PM EDT Triage call with [facility] [place] [id number] [place] [id number] Priscila. Pt daughter reports Pthas been having sx of dizziness, poor appetite and not drinking fluids well, also back pain. Pt will be going to see fruit grader operator tomorrow due to slow heart rate and possible need for med adjustment. Also will be seeing urologist 10/31/24 for follow up. Pt is wanting to see PCP as per [facility] suggestion. ASK apt with AMAN Holly with preceptor Dr. Jeffrey 11/02/24 @ 100pm. Daughter agrees with this disposition and if any changes occur before apt will call. Insurance is verified as active prior to booking. Protocol Used: Dizziness (Adult) Protocol-Based Disposition: See in Office or Video Visit within 2 Weeks Positive Triage Question: * Dizziness not present now, but is a chronic symptom (recurrent or ongoing AND lasting > 4 weeks) * All higher-acuity triage questions were negative Care Advice Discussed: * Drink Fluids * Reasons To Call Back - After 2 hours of rest and fluids and you are still feeling dizzy - You pass out (faint) or are too weak to stand - You become worse * Telephone Encounter - Luther Yusufnandez - 10/24/2024 3:18 PM EDT Symptoms: Dizziness, Back Pain - Not From Injury Outcome: Transfer to a nurse or provider NOW! Reason: Can't stand (unless normally can't stand) The caller accepted this outcome. Contact pt Daughter at [phone] documented in this encounter Plan of Treatment Upcoming Encounters Date Type Department Care Team (Late st Contact Info) Description 11/02/2024 1:00 PM EDT Office Visit [facility] MEDICINE [address] [place] [address] Ruslan Holly, AMAN [address] [place] [address] 12/17/2024 1:30 PM EDT Office Visit [facility] OPTOMETRY [address] [place] [address] Harry, Esther, OD [address] [place] [address] 01/21/2025 10:00 AM EDT Office Visit [facility] MEDICINE [address] [place] [address] Name, MD Balta [address] [place] [address] documented as of this encounter Visit Diagnoses Not on filedocumented in this encounter Additional Health Concerns Assessment Noted Time PHQ-9 Depression Total Score: 0 09/20/19 24 1:15 PM EDT documented as of this encounter Care Teams Clinical Services Director Relationship Specialty Start Date End Date Name, MD Balta [address] [place] [address] PCP - General Internal Medicine 06/14/22 Hilton [facility] 08/05/24 documented as of this encounter
--- OUTSIDE RECORDS SUMMARY | 2024-10-25 16:08 | XMS_ITS | Clinical Summary ---
Author Organization [employer] Address [address] [facility] 7t [place] [address] Care Team Providers Care Machine Tracer Name Role Phone Name, Balta MAYER Primary Care Provider [phone] Allergies Active Allergy Reactions Criticality Noted Date Comments Metformin Diarrhea 07/24/2024 abdominal pain Penicillin G 06/07/2017 Other reaction(s): itchiness Penicillins Hives,Nausea High 10/11/2022 Other reaction(s): NAUSEA/HIVES Other Reaction(s): NAUSEA/HIVES Medications atorvastatin (Lipitor) 40 MG tablet Take 1 tablet by mouth at bed time. Active docusate sodium (Colace) 100 MG capsule take 1 Tablet by Oral route 2 times every day - PURCHASING OTC Active furosemide (Lasix) 40 MG tablet Take 1 tablet by mouth in the morning. 11/17/19 22 Active Eliquis 5 MG tablet Take 5 mg by mouth 2 times daily. 11/07/19 23 Active amLODIPine (Norvasc) 10 MG tablet Take 10 mg by mouth at bedtime. 10/16/19 23 Active fluticasone (Flonase) 50 MCG/ACT nasal sprayIndications :Sinus congestion INSTILL 1-2 SPRAYS IN EACH NOSTRIL ONCE DAILY NEEDED 48 g 05/23/20 23 Active carvedilol (Coreg) 25 MG tablet TAKE 1 TABLET BY MOUTH TWICE DAILY IN THE MORNING AND IN THE EVENING 06/16/20 23 Active mirtazapine (Remeron) 15 MG tablet Take 15 mg by mouth at bedtime. 06/16/20 23 Active cholecalciferol (Vitamin D-3) 25 MCG tablet TAKE 1 TABLET BY MOUTH EVERY MORNING 90 tablet 3 12/01/19 24 Active oxybutynin (Ditropan) 5 MG tabletIndication s:Urge incontinence TAKE 1 TABLET BY MOUTH TWICE DAILY IN THE MORNING AND AT BEDTIME NEEDED 180 tablet 3 12/01/19 24 Active Alcohol Swabs (Alcohol Prep) 70 % pads USE TWICE DAILY 100 each 11 01/10/20 24 Active TRUEplus Lancets 33G miscIndications: Type 2 diabetes mellitus with obesity ([facility]/HCC) ([facility]) TEST BLOOD SUGAR TWICE DAILY DIRECTED 100 each 5 01/25/20 24 Active FREESTYLE LITE test stripIndications :Type 2 diabetes mellitus with obesity ([facility]/HCC) ([facility]) TEST BLOOD SUGAR TWICE DAILY DIRECTED 100 strip 5 01/25/20 24 Active Jardiance 10 MG Take 10 mg by mouth in the morning. 02/22/20 24 Active ferrous gluconate (Fergon) 324 (38 Fe) MG tablet TAKE 1 TABLET BY MOUTH EVERY MORNING 90 tablet 1 04/02/20 24 Active cetirizine (ZyrTEC) 10 MG tablet TAKE 1 TABLET BY MOUTH EVERY MORNING 30 tablet 5 04/12/20 24 Active calcium carbonate 1500 (600 Ca) MG tabletIndication s:Vitamin D deficiency TAKE 1 TABLET BY MOUTH EVERY MORNING 90 tablet 3 07/31/19 25 Active omeprazole (PriLOSEC) [address] capsule Take 1 capsule (40 mg) by mouth 2 times daily. 60 capsule 09/03/19 25 Active cyanocobalamin (Vitamin B-12) 1000 MCG/ML injection INJECT 1 ML INTRAMUSCULARLY EVERY MONTH DIRECTED 1 mL 09/20/19 25 Active Hospital, Clinic, or Other Facility Administered Medication [...] IM Every 30 days 09/22/2024 09/17/2025 Active Active Problems Problem Noted Date Diagnosed [...] stable to live alone and should have multimedia editor caregiver available (daughter) Choking 01/05/2024 Cough 01/05/2024 Hospital discharge follow-up 01/05/2024 Lymphedema 03/29/2023 Pneumonia 03/29/2023 Preop cardiovascular exam 03/29/2023 Renal insufficiency 03/29/2023 Urinary urgency 03/29/2023 Atrial fibrillation 11/17/2022 History of arthroplasty of right knee 11/17/2022 Varicose veins of right lower extremity with inf lammation 11/17/2022 Type 2 diabetes mellitus with obesity ([facility]) 08/31/2022 Lentiginosis 10/13/2018 JOVANNI (obstructive sleep apnea) 10/02/2018 Overview (09/19/2024): Not using CPAP Chronic diastolic heart failure 05/25/2018 Overview (09/21/2023): [address] [phone] CARDIOLOGY NAME: SAMMIE FRANCOIS HATCHERY EMPLOYEE: [facility] UNIT #: [id number] PATIENT LOCATION: EKG REFERRING PHYSICIAN: ANIYA BERNARD MD DATE OF : 41 PCP: ANIYA BERNARD MD SEX: Female DATE: 04/20/18 CARD ECHO 2D M MODE W DOPPLER COLOR [phone] SYMPTOMS,HX?: I10 ESSENTIAL HTN; R60.0 LOCALIZED EDEMA Transthoracic Echocardiogram Patient (Last, First, Middle): SAMMIE FRANCOIS E Gender: Female Date of : 1945 Age: 72 Procedure Date: 04/20/2018 Procedure Type: Transthoracic Echocardiogram Location: OP Height: 157.48 cm Weight: 81.65 kg BSA: 1.83 m2 Heart Rate: bpm BP: 144 / 78 mmHg Pork Cutlet Maker: Referring MD: ANIYA BERNARD MD Symptoms: I10 [...] of Final JANI IYER MD Report #: [id number] Status: Signed Dict: 04/20/18/ Trans: /SUBRA DATE PRINTED: //date// TIME PRINTED: //time// COPY [...] Encounters Date Type Department Care Team Description 10/25/2024 Telephone [facility] MEDICINE [address] [place] [address] Balta Jeffrey MD 10/24/[address] [address] Balta Jeffrey MD Nurse Triage 10/19/2024 Telephone [facility] MED & PEDS [address] [place] [address] Kishan Warner MD 10/19/[address] [address] Balta Jeffrey MD Call Back Request 10/18/2024 Patient Outreach [address] [address] Balta Jeffrey MD Transition Of Care (Tcm) (HDF unscheduled) 10/18/[address] [address] Balta Jeffrey MD Hospital Follow-up 10/17/[address] [address] Ynes Stevenson, JERROD 10/08/[address] [address] Balta Jeffrey MD Durable Medical Equipment 10/08/[address] [address] Balta Jeffrey MD Appointment Request; Call Back Request 09/20/[address] [address] Balta Jeffrey MD 09/19/2024 2:15 PM EDT Office Visit [address] [address] Balta Jeffrey MD Stage 3 chronic kidney disease, unspecified whether stage 3a or 3b CKD ([facility]) (Primary Dx); Hyperkalemia; Chronic diastolic heart failure ([facility]); Type 2 diabetes mellitus with obesity ([facility]) ([facility]); Chronic constipation; Cobalamin deficiency; Encounter for immunization 09/19/[address] [address] Balta Jeffrey MD 09/07/[address] [address] Balta Jeffrey MD Durable Medical Equipment 09/03/2024 9:00 AM EST Office Visit [address] [address] Jaymie Adams NP MARIA R (acute kidney injury) ([facility]) (Primary Dx); Esophagitis; Type 2 diabetes mellitus with obesity ([facility]) ([facility]); 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 ([facility]) 08/24/[address] [address] Balta Jeffrey MD Lab Orders 08/23/[address] [address] Kirsty Garcia MA Chart Prep 08/17/[address] [address] Balta Jeffrey MD Appointment Request 08/16/[address] [address] Balta Jeffrey MD Call Back Request 08/16/2024 Telephone [facility] MED & PEDS [address] [place], [place] [phone] Balta Jeffrey MD Chart Prep 08/10/2024 Telephone [facility] WALK[facility]IN [facility] [address] [place] [address] Caity Rain MD 08/10/[address] [address] Balta Jeffrey MD 08/10/2024 Orders Only [facility] MEDICINE [address] [place] [address] [phone] Balta Jeffrey MD 08/06/2024 Patient Outreach [facility] MEDICINE [address] [place], [place] [phone] Balta Jeffrey MD Transition Of Care (Tcm) (HDF- scheduled ) 08/06/2024 Telephone [facility] MEDICINE [address] [place] [address] [phone] Balta Jeffrey MD ER Follow-up 07/29/2024 Refill [facility] MED [facility] PEDS [address] [place], [place] [phone] Balta Jeffrey MD Vitamin D deficiency 07/27/2024 Telephone [facility] MEDICINE [address] [place] [address] [phone] Balta Jeffrey MD FYI from Last 3 Months Immunizations Name Administration [...] Description 11/02/2024 1:00 PM EDT Office Visit [facility] MEDICINE [address] [place] [address] Ruslan Holly, AMAN [address] [place] [address] 12/17/2024 1:30 PM EDT Office Visit [facility] OPTOMETRY [address] [place], [place] [phone] Harry, Esther, OD [address] [place] [address] 01/21/2025 10:00 AM EDT Office Visit [facility] MEDICINE [address] [place], [place] [phone] Name, MD Balta [address] [place], [place] [phone] Health Maintenance Due Date Last Done Comments [...] WITH AIR Routine 07/30/2024 7:00 AM EST LIPID PANEL, STANDARD Routine 12/26/2023 1:22 PM EDT Hypertension, unspecified type from Last 3 Months or Most Recently Relevant to Health Maintenance Results * Magnesium (09/19/2024 4:08 PM EDT) Magnesium 2.6 1.6 - 2.6 mg/dL [facility] Blood Venous blood specimen / Unknown 09/19/2024 4:08 PM EDT 09/19/2024 6:18 PM EDT us Balta Jeffrey MD LAB BLOOD ORDERABLES Final Resul t [facility] [address] [place] [phone] * (ABNORMAL) Basic Metabolic Panel (09/19/2024 4:08 PM EDT) Only the most recent of4 resultswithin the time period is included. Sodium 142 135 - 145 mmol/L [facility] Potassium 4.8 3.3 - 5.1 mmol/L [facility] Chloride 108 96 - 108 mmol/L [facility] Carbon Dioxide 26 22 - 29 mmol/L [facility] Anion Gap 13 12 - 20 [facility] Urea Nitrogen (BUN) 20(H) 9 - 16 mg/dL [facility] Creatinine, Serum 1.38 0.5 - 1.4 mg/dL [facility] Estimated Glomerular Filt Rate 37 [facility] Comment:Chronic Kidney Disea se: Estimated GFR < 60 mL/min/1.99m2Abgpwt Kidney Disease: Estimated GFR < 15 mL/min/1.73m2 Glucose 123(H) 60 - 115 mg/dL [facility] Calcium 10.1 8.4 - 10.2 mg/dL [facility] Blood Venous blood specimen / Unknown 09/19/2024 4:08 PM EDT 09/19/2024 6:18 PM EDT us Balta Jeffrey MD LAB BLOOD ORDERABLES Final Resul t [facility] [address] [place] [phone] * POCT Glucose (09/19/2024 2:46 PM EDT) Only the most recent of2 resultswithin the time period is included. Pathologist [facility] Glucose Blood, POC 192 60 - 200 mg/dL QC Media Lot # [id number] Lot# Expiration Date [id number] Blood Capillary blood specimen / Unknown 09/19/2024 2:46 PM EDT us Balta Jeffrey MD POINT OF CARE TEST ENTER/EDIT OR DERABLES Final Result * POCT HGB A1C (09/03/2024 9:15 AM EST) Pathologist [facility] Hemoglobin A1C 5.3 4.0 - 6.0 % QC Media Lot # [id number] Lot# Expiration Date [id number] Blood 09/03/2024 9:15 AM EST us Jaymie Adams NP POINT OF CARE TEST ENTER/EDIT OR DERABLES Final Result * US RENAL BI (08/12/2024 12:35 PM EST) Anatomical Region Laterality Modality Abdomen Ultrasound 08/12/2024 12:3 5 PM EST Narrative 08/12/2024 12:36 PM EST ? [facility] ?[address] ?[place] [address] ? Ultrasound Report ? Signed ? Patient: Fischer Mike,Jayne ?MR#: MM ?? [id number] ? : 1945 ?Acct:[id number] ? Age/Sex: 78 / F ?ADM Date: 08/10/24 ? Loc: HO.IMC ?485-1 ? Attending Dr: Ernesto Morgan DO ? Ordering Physician: Ernesto Morgan DO ?? Date of Service: 08/12/24 ?? Procedure(s): US renal BI ?? Accession Number(s): [id number] ? cc: Name,Balta MAYER; Ernesto Morgan DO [...] DD/ 1235 ? TD/TT: 08/12/24 1235 ? Compensation Consultant: ? Procedure Note Gisselle, Image - 08/12/2024 [place] [address] Ultrasound Report Signed Patient: Sammie Francois EMR#: [id number] : 1945cct:[id number] Age/Sex: 78 / FADM Date: 08/10/24 Loc: [facility] 485-[address]: Ernesto Morgan DO Ordering Physician: Ernesto Morgan DO Date of Service: 08/12/24 Procedure(s): US renal BI Accession Number(s): [id number] cc: Balta Jeffrey MD; Ernesto Morgan DO [...] 08/12/24 1236 DD/ 1235 TD/TT: 08/12/24 1235 Compensation Consultant: us [facility] External Provider IMG US PROCEDURES Final Result * FL Esophagus Barium Swallow w/Air (07/30/2024 7:00 AM EST) Anatomical Region Laterality Modality Head, Neck Radiographic Melissa ging 07/30/2024 7:00 AM EST Narrative 07/31/2024 9:06 AM EST ? [facility] ?[address] ?[place] [address] ? Fluoroscopy Report ? Signed ? Patient: Amado CamargoSammie ray ?MR#: [id number] ?? [id number] ? : 1945 ?Acct:[id number] ? Age/Sex: 78 / F ?ADM Date: 07/24/24 ? Loc: HO.S3 ?387-1 ? Attending Dr: Renan Melton MD ? Ordering Physician: Renan Melton MD ?? Date of Service: 07/30/24 ?? Procedure(s): FL barium swallow with air ?? Accession Number(s): [id number] ? cc: Renan Melton MD; Name,Balta MAYER [...] DD/ 0700 ? TD/TT: 07/30/24 1110 ? Compensation Consultant: ? Procedure Note Gisselle, Image - 07/31/[address] [address] Fluoroscopy Report Signed Patient: Sammie Francois EMR#: [id number] : 4Acct:[id number] Age/Sex: 78 / FADM Date: 07/24/24 Loc: .S3 387-[address]: Renan Melton MD Ordering Physician: Renan Melton MD Date of Service: 07/30/24 Procedure(s): FL barium swallow with air Accession Number(s): [id number] cc: Renan Melton MD; Name,Balta MAYER EXAMINATION: [...] by: Troy Acuna MD 07/31/2024 09:04 AM [facility] Dictated By: Gabirel Ribeiro Signed By: <Electronically signed by Gabriel Ribeiro in OV> 07/31/24 0904 <Electronically signed by Troy Acuna MD in OV> 07/31/24 0906 DD/ 0700 TD/TT: 07/30/24 1110 Compensation Consultant: us [facility] Exter nal Provider IMG FLUOROSCOPY PROCEDURES Edited Result - Final * Lipid Panel, Standard (12/26/2023 1:22 PM EDT) Triglycerides 52 <150 mg/dL [facility] Comment:Desirable Triglyceri de: less than 150 mg/dLBorderline High Triglyceride 150-199 mg/dLHigh Triglyceride: 200-499 mg/dLVery High Triglyceride: greater than or equal to 5OO mg/dL Cholesterol 169 <200 mg/dL [facility] Comment:Desirable Cholestero l: less than 200 mg/dLBorderline High Cholesterol: 200-239 mg/dLHigh Cholesterol: greater than 239 mg/dL LDL Cholesterol Calculated 92 <100 mg/dL [facility] Comment:Desirable LDL: less than 100 mg/dLNear Optimal/Above Optimal LDL: 110- 129 mg/dLBorderline High LDL: 130-159 mg/dLHigh LDL: 160-189 mg/dLVery High LDL: greater than or equal to 190 mg/dL HDL Cholesterol 67 >40 mg/dL [facility] Comment:Desirable HDL: great er than 40 mg/dL Note: This HDL assay may give artificially low results in patients with liver disease. Blood Venous blood specimen / Unknown 12/26/2023 1:22 PM EDT 12/26/2023 3:56 PM EDT Balta Jeffrey MD LAB BLOOD ORDERABLES Final Resul t [facility] [address] [place] [phone] [phone] from Last 3 Months or Most Recently Relevant to Health Maintenance Insurance [facility] Care Teams Machine Tracer Relationship Specialty Start Date End Date Name, MD Balta [address] [place] [address] PCP - General Internal Medicine 06/14/22 Samir TAI 08/05/24
--- OUTSIDE RECORDS SUMMARY | 2024-10-25 16:08 | XMS_ITS | Encounter Summary ---
Author Organization [employer] Address [address] [facility] [address] [place] [address] Care Team Providers Care Assistant Press Operator Name Role Phone Name, Balta MAYER Primary Care Provider [phone] Reason for Visit * Reason Comments Med Refill Encounter Details Date Type Department Care Team (Late st Contact Info) Description 03/05/2024 Refill [facility] CHC MED & PEDS [address] [place], [place] [phone] Name, MD Balta [address] [place] [address] Social History Tobacco Use Types Packs/Day Years [...] Description 11/02/2024 1:00 PM EDT Office Visit [facility] MEDICINE [address] [place] [address] Ruslan Holly, MARKETING REPORTING ANALYST [address] [place] [address] 12/17/2024 1:30 PM EDT Office Visit [facility] OPTOMETRY [address] [place] [address] Harry, Esther, OD [address] [place] [address] 01/21/2025 10:00 AM EDT Office Visit [facility] MEDICINE [address] [place] [address] Balta Jeffrey MD [address] [place] [address] documented as of this encounter Visit Diagnoses Not on filedocumented in this encounter Additional Health Concerns Assessment Noted Time PHQ-9 Depression Total Score: 0 09/20/19 24 1:15 PM EDT documented as of this encounter Care Teams Assistant Press Operator Relationship Specialty Start Date End Date Balta Jeffrey MD [address] [place] [address] PCP - General Internal Medicine 06/14/22 Samir TAI 08/05/24 documented as of this encounter
--- OUTSIDE RECORDS SUMMARY | 2024-10-25 16:08 | XMS_ITS | Encounter Summary ---
Author Organization [employer] Address [address] [facility] 7t [place] [address] Care Team Providers Care Urgent Care Physician Name Role Phone Name, Balta MAYER Primary Care Provider [phone] Reason for Visit * Reason Onset Date Comments Durable Medical Equipment 10/08/2024 Encounter Details Date Type Department Care Team (Late st Contact Info) Description 10/08/2024 Telephone [facility] MEDICINE [address] [place] [address] Name, MD Balta [address] [place] [address] Durable Medical Equipment Social History Tobacco Use [...] * Telephone Encounter - Nancy Guillen - 10/22/2024 1:11 PM EDT RX for Commode signed and faxed to [facility]/Lost My Name on 10/17/2024. Confirmation received and sent to scan. If patient calls to check status on above, please advise them to contact [facility] housekeeper child care . * Telephone Encounter - Tamiko Rodriguez MA - 10/09/2024 1:26 PM EDT DME RX for Commode generated and placed on providers desk for signature. * Telephone Encounter - Adrian Lara - 10/08/2024 12:54 PM EDT TC from pt';s daughter requesting a portable Commode . documented in this encounter Plan of Treatment Upcoming Encounters Date Type Department Care Team (Late st Contact Info) Description 11/02/2024 1:00 PM EDT Office Visit [facility] MEDICINE [address] [place] [address] Ruslan Holly, BLOCK MAKING MACHINE OPERATOR [address] [place] [address] 12/17/2024 1:30 PM EDT Office Visit [facility] OPTOMETRY [address] [place] [address] Harry, Esther, OD [address] [place] [address] 01/21/2025 10:00 AM EDT Office Visit [facility] MEDICINE [address] [place] [address] Name, MD Balta [address] [place] [address] documented as of this encounter Visit Diagnoses Not on filedocumented in this encounter Additional Health Concerns Assessment Noted Time PHQ-9 Depression Total Score: 0 09/20/19 24 1:15 PM EDT documented as of this encounter Care Teams Urgent Care Physician Relationship Specialty Start Date End Date Name, MD Balta [address] [place] [address] PCP - General Internal Medicine 06/14/22 [facility] 08/05/24 documented as of this encounter
--- OUTSIDE RECORDS SUMMARY | 2024-10-25 16:08 | XMS_ITS | Encounter Summary ---
Author Organization [employer] Address [address] [facility] 7t [place] [address] Care Team Providers Care Unit Support Representative Name Role Phone Name, Balta MAYER Primary Care Provider [phone] Reason for Visit * Reason Onset Date Comments Hospital Follow-up 10/18/2024 Encounter Details Date Type Department Care Team ([facility] st Contact Info) Description 10/18/2024 Telephone [facility] MEDICINE [address] [place] [address] Name, MD Balta [address] [place] [address] Hospital Follow-up Social History Tobacco Use Types Packs/Day [...] * Telephone Encounter - Dilcia Shah - 10/18/2024 1:12 PM EDT Tc from patient care secretary Victorina requesting a HDF appt. Hospital: [facility] Date of admission: 10/08/24 Discharge date: 10/16/24 Diagnosed: Kidney stones and blood infection Contact pt daughter at [phone] (albanian) documented in this encounter Plan of Treatment Upcoming Encounters Date Type Department Care Team ([facility] st Contact Info) Description 11/02/2024 1:00 PM EDT Office Visit [facility] MEDICINE [address] [place] [address] Ruslan Holly, MANAGER MINING [address] [place] [address] 12/17/2024 1:30 PM EDT Office Visit [facility] OPTOMETRY [address] [place] [address] HarryEsther faustin, OD [address] [place] [address] 01/21/2025 10:00 AM EDT Office Visit [facility] MED[facility] [address] [facility] [place] [address] Name, MD Balta [address] [facility] [place] [address] documented as of this encounter Visit Diagnoses Not on filedocumented in this encounter Additional Health Concerns Assessment Noted Time PHQ-9 Depression Total Score: 0 09/20/19 24 1:15 PM EDT documented as of this encounter Care Teams Unit Support Representative Relationship Specialty Start Date End Date Name, MD Balta [facility] [place] [address] PCP - General Internal Medicine 06/14/22 Samir A 08/05/24 documented as of this encounter
--- OUTSIDE RECORDS SUMMARY | 2024-10-25 16:08 | XMS_ITS | Encounter Summary ---
Author Organization [employer] Address [address] [facility] 7t [place] [address] Care Team Providers Care Slasher Name Role Phone Name, Balta MAYER Primary Care Provider [phone] Reason for Visit * Reason Onset Date Comments ER Follow-up 08/06/2024 Encounter Details Date Type Department Care Team ([facility] Contact Info) Description 08/06/2024 Telephone [facility] MEDICINE [address] [place] [address] Name, MD Balta [address] [place] [address] ER Follow-up Social History Tobacco Use Types [...] from pt requesting a HDF appt. Hospital: [facility] Date of admission: 07/24/24 Discharge date: 08/02/24 Diagnosed: Acute Dysphagia *Send message to [place] Clinical Care Coordinators documented in this encounter Plan of Treatment Upcoming Encounters Date Type Department Care Team (Late st Contact Info) Description 11/02/2024 1:00 PM EDT Office Visit [facility] MEDICINE [address] [place] [address] Ruslan Holly, AMAN [address] [place] [address] 12/17/2024 1:30 PM EDT Office Visit [facility] OPTOMETRY [address] [place] [address] Esther Mcdonald, OD [address] [place] [address] 01/21/2025 10:00 AM EDT Office Visit [facility] MEDICINE [address] [place] [address] Name, MD Balta [address] [place] [address] documented as of this encounter Visit Diagnoses Not on filedocumented in this encounter Additional Health Concerns Assessment Noted Time PHQ-9 Depression Total Score: 0 09/20/19 24 1:15 PM EDT documented as of this encounter Care Teams Slasher Relationship Specialty Start Date End Date Name, MD Balta [address] [place] [address] PCP - General Internal Medicine 06/14/22 Samir TAI 08/05/24 documented as of this encounter
--- OUTSIDE RECORDS SUMMARY | 2024-10-25 16:08 | XMS_ITS | Encounter Summary ---
Author Organization [employer] Address [address] [facility] [address] 7t [place] [address] Care Team Providers Care Repairer Screen Crusher Name Role Phone Name, Balta MAYER Primary Care Provider Encounter Details Date Type Department Care Team ([facility] st Contact Info) Description 10/25/2024 Telephone [facility] MEDICINE [address] [place] [address] Name, MD Balta [address] [place] [address] Social History Tobacco Use Types Packs/Day Years [...] encounter Miscellaneous Notes * Telephone Encounter - Faraz Goncalves [place] - 10/25/2024 1:12 PM EDT Chart Prep Labs: done Images: done Referrals: complete Vaccines due: yes Zoster RSV Covid Screenings: eye exam and foot exam Overdue care gaps: Glucose, SDOH, PHQ-9, and LEBRON-7 documented in this encounter Plan of Treatment Upcoming Encounters Date Type Department Care Team (Late st Contact Info) Description 11/02/2024 1:00 PM EDT Office Visit [facility] MEDICINE [address] [place] [address] Ruslan Holly CNP 230 [place] [address] 12/17/2024 1:30 PM EDT Office Visit [facility] OPTOMETRY [address] [place] [address] Esther Mcdonald, OD 230 [place] [address] 01/21/2025 10:00 AM EDT Office Visit [facility] MEDICINE [address] [place] [address] Name, MD Balta 230 [place] [address] documented as of this encounter Visit Diagnoses Not on filedocumented in this encounter Additional Health Concerns Assessment Noted Time PHQ-9 Depression Total Score: 0 09/20/19 24 1:15 PM EDT documented as of this encounter Care Teams Repairer Screen Crusher Relationship Specialty Start Date End Date Name, MD Balta [address] [place] [address] PCP - General Internal Medicine 06/14/22 Samir A 08/05/24 documented as of this encounter
--- OUTSIDE RECORDS SUMMARY | 2024-10-25 16:08 | XMS_ITS | Encounter Summary ---
Author Organization [employer] Address 75 [facility] 7t [place] [address] Care Team Providers Care Diver Helper Name Role Phone Name, Balta MAYER Primary Care Provider [phone] Reason for Visit * Reason Onset Date Comments Call Back Request 08/16/2024 Encounter Details Date Type Department Care Team ([facility] Contact Info) Description 08/16/2024 Telephone [facility] MEDICINE [address] [place] [address] Name, MD Balta [address] [place] [address] Call Back Request Social History Tobacco Use [...] the B12 injection. Please contact Daughter at [phone]. (Jordanian Speaker) documented in this encounter Plan of Treatment Upcoming Encounters Date Type Department Care Team ([facility] st Contact Info) Description 11/02/2024 1:00 PM EDT Office Visit [facility] MEDICINE [address] [place] [address] Ruslan Holly CNP 230 [place] [address] 12/17/2024 1:30 PM EDT Office Visit [facility] OPTOMETRY [address] [place] [address] Esther Mcdonald, OD 230 [place] [address] 01/21/2025 10:00 AM EDT Office Visit [facility] MEDICINE [address] [place] [address] Name, MD Balta 230 [place] [address] documented as of this encounter Visit Diagnoses Not on filedocumented in this encounter Additional Health Concerns Assessment Noted Time PHQ-9 Depression Total Score: 0 09/20/19 24 1:15 PM EDT documented as of this encounter Care Teams Diver Helper Relationship Specialty Start Date End Date Name, MD Balta 230 [place] [address] PCP - General Internal Medicine 06/14/22 Samir A 08/05/24 documented as of this encounter
--- OUTSIDE RECORDS SUMMARY | 2024-10-25 16:08 | XMS_ITS | Encounter Summary ---
Author Organization [employer] [facility] Address [address] [place] [address] 7 [place] [address] Care Team Providers Care Chalk Extruding Machine Operator Name Role Phone Balta Jeffrey MD Primary Care Provider [phone] Encounter Details Date Type Department Care Team (Late Contact Info) Description 06/14/2022 Orders Only [facility] MEDICINE [address] [place] [address] Audrey Mcginnis, JERROD Social History Tobacco Use [...] Encounters Date Type Department Care Team (Late Contact Info) Description 11/02/2024 1:00 PM EDT Office Visit [facility] MEDICINE [address] [place] [address] Ruslan Holly CNP 230 [place] [address] 12/17/2024 1:30 PM EDT Office Visit [facility] OPTOMETRY [address] [place] [address] Esther Mcdonald, OD 230 [place] [address] 01/21/2025 10:00 AM EDT Office Visit [facility] MEDICINE [address] [place] [address] Balta Jeffrey MD 230 [place] [address] documented as of this encounter Visit Diagnoses Not on filedocumented in this encounter Care Teams Chalk Extruding Machine Operator Relationship Specialty Start Date End Date Name, MD Balta [address] [place] [address] PCP - General Internal Medicine 06/14/22 Samir A 08/05/24 documented as of this encounter
== END 2024-10-25 13:57 | disposition home or self-care (01) ==
LOC: HO.HCS 13:09
PROVIDERS: PCP Internal Medicine Geriatric Medicine
DX: I48.91 Unspecified atrial fibrillation (principal); I50.32 Chronic diastolic (congestive) heart failure; I10 Essential (primary) hypertension; G47.33 Obstructive sleep apnea (adult) (pediatric); E78.5 Hyperlipidemia, unspecified; Z09 Encounter for follow-up examination after completed treatment for conditions other than malignant neoplasm
CPT/HCPCS: 99214; G2211

== ENCOUNTER → 2024-10-25 13:09 | Outpatient (BNVA) | payer OTHER, SELFPAY | PROVIDERS: PCP Internal Medicine Geriatric Medicine | DX: I48.91 Unspecified atrial fibrillation (principal); E87.5 Hyperkalemia; I13.0 Hypertensive heart and chronic kidney disease with heart failure and stage 1 through stage 4 chronic kidney disease, or unspecified chronic kidney disease; N18.32 Chronic kidney disease, stage 3b; I50.32 Chronic diastolic (congestive) heart failure; G47.33 Obstructive sleep apnea (adult) (pediatric); E78.5 Hyperlipidemia, unspecified; Z09 Encounter for follow-up examination after completed treatment for conditions other than malignant neoplasm | CPT/HCPCS: 99212 ==

== ENCOUNTER 2024-10-25 14:09 | Outpatient (AMB) | payer OTHER, SELFPAY ==
--- NOTE | 2024-10-25 14:12 | HO.NEPHOV ---
Vital Signs 10/25/24 14:13 Height 5 ft 2 in Weight 179 lb BMI 32.7 BP 108/60 Blood Pressure Location Lt brachial Position Sitting Intake Visit Reasons: CKD Spacer Type Bar And Segment Required: Yes Spacer Type Bar And Segment Language: Implementation Specialist Name: Tate [id number] Accompanied by: Daughter Allergies Penicillins [PENICILLINS] Allergy (Intermediate, Verified 10/25/24 14:15) NAUSEA/HIVES metformin Adverse Reaction (Unknown, Verified 10/25/24 14:15) Diarrhea Medication List - Last Reconciled 10/25/24 by Karthik Irvin MD acetaminophen 650 mg (2 x 325 mg) PO Q6H PRN 30 days amlodipine 10 mg PO BEDTIME apixaban (Eliquis) 5 mg PO BID atorvastatin 40 mg PO DAILY 90 days calcium carbonate 600 mg PO DAILY cetirizine 10 mg PO DAILY cholecalciferol (vitamin D3) 1 tab PO DAILY cyanocobalamin (vitamin B-12) 1,000 mcg IM Q28D docusate sodium (Stool Softener) 100 mg PO DAILY empagliflozin (Jardiance) 10 mg PO DAILY ferrous gluconate 324 mg PO DAILY fluticasone propionate 50 mcg/actuation 1 - 2 sprays intranasal DAILY PRN furosemide 40 mg PO DAILY linaclotide (Linzess) 145 mcg PO DAILY mirtazapine 22.5 mg PO BEDTIME omeprazole 40 mg PO BID@0630,1630 oxybutynin chloride 5 mg PO BID walker Folding front wheeled walker Do you need a note to return to daycare/school/sports/work: No HPI Comments Details: 78F with chronic idiopathic constipation, obstructive sleep apnea, barrets and eosinophilic esophagitis, hyperlipidemia, unspecified asthma, chronic diastolic CHF, paroxysmal atrial fibrillation, sent in for hyperkalemia. Patient was admitted to [facility] for 07/24/24-08/02/24 for diverticulitis and hyperkalemia with MARIA R. At that time received fluids and antibiotics and her losartan and Aldactone had been discontinued. Patient reports feeling well since discharge, had follow-up labs which revealed hyperkalemia with potassium of 6.8 and acute kidney injury with creatinine of 1.61 h/o Venous insufficiency and lymphedema She was recently in the hospitla for MARIA R with a Cr of 2.26 and resolved prior to discharge. During this admission, K has been corrected with lokelma Losartan on hold Cr is at 1.8 Baseline < 1.0 08/30/24 Off ACEi Cr is down to 1.2 K is at 5.1 now c/o Constipation PFSH Medical History Chronic diastolic heart failure Hydronephrosis, right Ureteral stone Dementia Calculus of proximal right ureter CKD (chronic kidney disease) Renal insufficiency Epigastric pain Tubular adenoma of colon Preop cardiovascular exam Urinary urgency Pneumonia Hospital discharge follow-up Asthma MARIA R (acute kidney injury) GERD (gastroesophageal reflux disease) Diabetes Osteoarthritis Hyperlipidemia Hypertension JOVANNI (obstructive sleep apnea) Surgical History Hx of cataract surgery Status post total knee replacement, right History of arthroplasty of right knee Hx of colonoscopy H/O: hysterectomy History of salpingoophorectomy History of tonsillectomy Family History Father HTN (hypertension) Mother HTN (hypertension) CVD (cardiovascular disease) Daughter Bone cancer Father Cancer Social History Household Members: Family Housing: House Are you a primary career services director to a significant other at home: No Do you presently have visiting nurse or other home services: No Unable to assess alcohol history related to: Unknown Alcohol intake: never Comment: family at bedside Patient Tobacco Use Status: Never used Tobacco e-Cigarette/Vaping Use: Never Used Second Hand Smoke Exposure: No service: No Current occupational status: retired Current occupation: Right handed Physical Exam Vital Signs: Last Vital Signs BP 108/60 10/25/24 14:13 BMI result Body Mass Index 32.7 Comfortable Neck supple no JVD. Lungs entry equal no rales. Heart S1-S2 heard no gallop or rub. Abdomen soft nontender. Neuro alert awake oriented. No asterixis. Extremities no edema. Results Reviewed Nephrology Results: Hgb 9.6 g/dl (12.0-16.0) L 10/15/24 WBC 5.7 X10*3/uL (4.8-10.8) 10/15/24 Plt Count 151 X10*3/uL (160-400) L 10/15/24 Sodium 148 mmol/L (135-145) H 10/15/24 Potassium 4.0 mmol/L (3.3-5.1) 10/15/24 Chloride 116 mmol/L (96-108) H 10/15/24 Carbon Dioxide 24 mmol/L (22-29) 10/15/24 BUN 12 mg/dL (9-16) 10/15/24 Creatinine 1.02 mg/dL (0.5-1.4) 10/15/24 Calcium 9.6 mg/dL (8.4-10.2) 10/15/24 Urine Protein Negative mg/dL (Neg-Trace) 10/08/24 Assessment & Plan Assessment & Plan (1) CKD (chronic kidney disease): Code(s): N18.9 - Chronic kidney disease, unspecified Category: Medical Qualifiers: Chronic kidney disease stage: stage 3 (moderate) Chronic kidney disease stage 3 subtype: stage 3b (GFR 30-44) Qualified Code(s): N18.32 - Chronic kidney disease, stage 3b (2) Hyperkalemia: Code(s): E87.5 - Hyperkalemia Category: Medical (3) Chronic diastolic heart failure: Code(s): I50.32 - Chronic diastolic (congestive) heart failure Category: Medical Plan (1) Renal insufficiency: Status: Acute (2) Hyperkalemia: Status: Acute MARIA R superimposed on CKD Maria R most likely due to hypoperfusion No obstruction based on USG Urine- Valley- doubt AGN/AIN Renal functionis back to baseline after stopping ACEI s/p Hyperkalemia Due to combination of MARIA R and KERON blockade /aldosterone antogonist Resolved Hold Losartan for now due to K of 5.1 Keep I > O Low K diet Loklema PRN if K > 5.2 Orders: Orders Basic Metabolic Panel 4 Months I50.32 - Chronic diastolic (congestive) heart failure Coding Level of Care Code Est Pt Level 4 (87874) Diagnoses Stage 3b chronic kidney disease N18.32 Chronic kidney disease stage: stage 3 (moderate) Chronic kidney disease stage 3 subtype: stage 3b (GFR 30-44) Hyperkalemia E87.5 Chronic diastolic heart failure I50.32
[2024-10-25 14:13] VITALS: BP 108/60; BMI 32.7
--- OUTSIDE RECORDS SUMMARY | 2024-10-25 17:12 | XMS_ITS | Encounter Summary ---
Author Organization [employer] Address 75 [facility] 7t [place] [address] Care Team Providers Care Lead Level Designer Name Role Phone Name, Balta MAYER Primary Care Provider [phone] Reason for Visit * Reason Onset Date Comments Hospital Follow-up 10/18/2024 Encounter Details Date Type Department Care Team ([facility] st Contact Info) Description 10/18/[address] [facility] MEDICINE [address] [place] [address] Name, MD Balta [address] [place] [address] Hospital Follow-up Social History Tobacco Use Types [...] - 10/18/2024 1:12 PM EDT Tc from animal care technician Victorina requesting a HDF appt. Hospital: [facility] Date of admission: 10/08/24 Discharge date: 10/16/24 Diagnosed: Kidney stones and blood infection Contact pt daughter at [phone] (slovenian) documented in this encounter Plan of Treatment Upcoming Encounters Date Type Department Care Team ([facility] st Contact Info) Description 11/02/2024 1:00 PM EDT Office Visit [facility] MEDICINE [address] [place] [address] Ruslan Holly, GENERAL FARM MANAGER 230 [place] [address] 12/17/2024 1:30 PM EDT Office Visit [facility] OPTOMETRY [address] [place] [address] HarryEsther faustin, OD 230 [place] [address] 01/21/2025 10:00 AM EDT Office Visit [facility] MEDICINE [address] [facility] [place] [address] Name, MD Balta [address] [facility] [place] [address] documented as of this encounter Visit Diagnoses Not on filedocumented in this encounter Additional Health Concerns Assessment Noted Time PHQ-9 Depression Total Score: 0 09/20/19 24 1:15 PM EDT documented as of this encounter Care Teams Lead Level Designer Relationship Specialty Start Date End Date Name, MD Balta [facility]ravind [facility] [place] [address] PCP - General Internal Medicine 06/14/22 Samir A 08/05/24 documented as of this encounter
--- OUTSIDE RECORDS SUMMARY | 2024-10-25 17:12 | XMS_ITS | Encounter Summary ---
Author Organization [employer] Address [address] [facility] [address] 7t [place] [address] Care Team Providers Care Hardwood Floor Installer Name Role Phone Name, Balta MAYER Primary Care Provider [phone] Encounter Details Date Type Department Care Team ([facility] st Contact Info) Description 10/25/2024 Telephone [facility] MEDICINE 230 [place] [address] Name, MD Balta [address] [place] [address] Social History Tobacco Use Types Packs/Day Years [...] 1:00 PM EDT Office Visit [facility] MEDICINE [address] [place] [address] Ruslan Holly CNP 230 [place] [address] 12/17/2024 1:30 PM EDT Office Visit [facility] OPTOMETRY [address] [place] [address] Esther Mcdonald, OD 230 [place] [address] 01/21/2025 10:00 AM EDT Office Visit [facility] MEDICINE 230 [place] [address] Name, MD Balta 230 [place] [address] documented as of this encounter Visit Diagnoses Not on filedocumented in this encounter Additional Health Concerns Assessment Noted Time PHQ-9 Depression Total Score: 0 09/20/19 24 1:15 PM EDT documented as of this encounter Care Teams Hardwood Floor Installer Relationship Specialty Start Date End Date Name, MD Balta 230 [place] [address] PCP - General Internal Medicine 06/14/22 Samir A 08/05/24 documented as of this encounter
--- OUTSIDE RECORDS SUMMARY | 2024-10-25 17:12 | XMS_ITS | Encounter Summary ---
Author Organization [employer] Address 75 [facility] 7t [place] [address] Care Team Providers Care Wood Barrel Reconditioner Name Role Phone Name, Balta MAYER Primary Care Provider [phone] Reason for Visit * Reason Onset Date Comments Nurse Triage 10/24/2024 Encounter Details Date Type Department Care Team (Late st Contact Info) Description 10/24/2024 Telephone [facility] MEDICINE [address] [place] [address] Name, MD Balta [address] [place] [address] Nurse Triage Social History Tobacco Use Types [...] 10/24/2024 4:06 PM EDT Triage call with [facility] [id number] [place] [id number] Priscila. Pt daughter reports Pthas been having sx of dizziness, poor appetite and not drinking fluids well, also back pain. Pt will be going to see acds block 1 operator tomorrow due to slow heart rate [...] accepted this outcome. Contact pt Daughter at [phone] documented in this encounter Plan of Treatment Upcoming Encounters Date Type Department Care Team (Late st Contact Info) Description 11/02/2024 1:00 PM EDT Office Visit [facility] MEDICINE 230 [place] [address] Ruslan Holly, AMAN 230 [place] [address] 12/17/2024 1:30 PM EDT Office Visit [facility] OPTOMETRY 267 [place] [address] Harry, Esther, OD 230 [place] [address] 01/21/2025 10:00 AM EDT Office Visit [facility] MEDICINE [address] [place] [address] Name, MD Balta [address] [place] [address] documented as of this encounter Visit Diagnoses Not on filedocumented in this encounter Additional Health Concerns Assessment Noted Time PHQ-9 Depression Total Score: 0 09/20/19 24 1:15 PM EDT documented as of this encounter Care Teams Wood Barrel Reconditioner Relationship Specialty Start Date End Date Name, MD Balta [address] [place] [address] PCP - General Internal Medicine 06/14/22 Moon [facility] 08/05/24 documented as of this encounter
--- OUTSIDE RECORDS SUMMARY | 2024-10-25 17:12 | XMS_ITS | Clinical Summary ---
Author Organization [employer] Address 75 [facility] 7t [place] [address] Care Team Providers Care Shellfish Dredge Operator Name Role Phone Name, Balta MAYER Primary Care Provider [phone] Allergies Active Allergy Reactions Criticality Noted Date [...] miscIndications: Type 2 diabetes mellitus with obesity ([facility]) ([facility]) TEST BLOOD SUGAR TWICE DAILY DIRECTED 100 each 5 01/25/20 24 Active FREESTYLE LITE test stripIndications :Type 2 diabetes mellitus with obesity ([facility]) ([facility]) TEST BLOOD SUGAR TWICE DAILY [...] to live alone and should have time signal wirer caregiver available (daughter) Choking 01/05/2024 Cough 01/05/2024 Hospital discharge follow-up 01/05/2024 Lymphedema 03/29/2023 Pneumonia 03/29/2023 Preop cardiovascular exam 03/29/2023 Renal insufficiency 03/29/2023 Urinary urgency 03/29/2023 Atrial fibrillation 11/17/2022 History of arthroplasty of right knee 11/17/2022 Varicose veins of right lower extremity with inf lammation 11/17/2022 Type 2 diabetes mellitus with obesity ([facility]) 08/31/2022 Lentiginosis 10/13/2018 JOVANNI (obstructive sleep apnea) 10/02/2018 Overview (09/19/2024): Not using CPAP Chronic diastolic heart failure 05/25/2018 Overview (09/21/2023): [address] [address] CARDIOLOGY NAME: SAMMIE FRANCOIS PATENT SOLICITOR: [facility] UNIT #: [id number] PATIENT LOCATION: EKG REFERRING PHYSICIAN: ANIYA BERNARD MD DATE OF : 41 PCP: ANIYA BERNARD MD SEX: Female DATE: 04/20/18 CARD ECHO 2D M MODE W DOPPLER COLOR [phone] SYMPTOMS,HX?: I10 ESSENTIAL HTN; R60.0 LOCALIZED EDEMA Transthoracic Echocardiogram Patient (Last, First, Middle): SAMMIE FRANCOIS E Gender: Female Date of : 1945 Age: 72 Procedure Date: 04/20/2018 Procedure Type: Transthoracic Echocardiogram Location: OP Height: 157.48 cm Weight: 81.65 kg BSA: 1.83 m2 Heart Rate: bpm BP: 144 / 78 mmHg Ware Dresser: Referring MD: ANIYA BERNARD MD Symptoms: I10 [...] of Final JANI IYER MD Report #: [id number] Status: Signed Dict: 04/20/18/ Trans: /SUBRA DATE [...] Type Department Care Team Description 10/25/2024 Telephone [facility] MEDICINE [address] [place] [address] Balta Jeffrey MD 10/24/[address] [address] Balta Jeffrey MD Nurse Triage 10/19/2024 Telephone [facility] MED & PEDS [address] [place] [address] Kishan Warner MD 10/19/[address] [address] Balta Jeffrey MD Call Back Request 10/18/2024 Patient Outreach [address] [address] Balta Jeffrey MD Transition Of Care (Tcm) (HDF unscheduled) 10/18/[address] [address] Balta Jeffrey MD Hospital Follow-up 10/17/[address] [address] Ynes Stevenson, JERROD 10/08/[address] [address] Balta Jeffrey MD Durable Medical Equipment 10/08/[address] [address] Balta Jeffrey MD Appointment Request; Call Back Request 09/20/[address] [address] Balta Jeffrey MD 09/19/2024 2:15 PM EDT Office Visit [address] [address] Balta Jeffrey MD Stage 3 chronic kidney disease, unspecified whether stage 3a or 3b CKD ([facility]) (Primary Dx); Hyperkalemia; Chronic diastolic heart failure ([facility]); Type 2 diabetes mellitus with obesity ([facility]) ([facility]); Chronic constipation; Cobalamin deficiency; Encounter for immunization 09/19/[address] [address] Balta Jeffrey MD 09/07/[address] [address] Balta Jeffrey MD Durable Medical Equipment 09/03/2024 9:00 AM EST Office Visit [address] [address] Jaymie Adams NP MARIA R (acute kidney injury) ([facility]) (Primary Dx); Esophagitis; Type 2 diabetes mellitus with obesity ([facility]) ([facility]); 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 ([facility]) 08/24/[address] [address] Balta Jeffrey MD Lab Orders 08/23/[address] [address] Kirsty Garcia [place] Chart Prep 08/17/[address] [address] Balta Jeffrey MD Appointment Request 08/16/[address] [address] Balta Jeffrey MD Call Back Request 08/16/2024 Telephone [facility] MED & PEDS [address] [place], [place] [phone] Balta Jeffrey MD Chart Prep 08/10/2024 Telephone [facility] WALK[facility] [address] [place] [address] Caity Rain MD 08/10/[address] [address] Balta Jeffrey MD 08/10/2024 Orders Only [facility] MEDICINE [address] [place] [address] [phone] Balta Jeffrey MD 08/06/2024 Patient Outreach [facility] MEDICINE [address] [place], [place] [phone] Balta Jeffrey MD Transition Of Care (Tcm) (HDF- scheduled ) 08/06/2024 Telephone [facility] MEDICINE [address] [place] [address] [phone] Balta Jeffrey MD ER Follow-up 07/29/2024 Refill [facility] MED & PEDS [address] [place], [place] [phone] Balta Jeffrey MD Vitamin D deficiency 07/27/2024 Telephone [facility] MEDICINE [address] [place] [address] [phone] Balta Jeffrey MD FYI from Last 3 [...] 1:00 PM EDT Office Visit [facility] MEDICINE [address] [place] [address] Ruslan Holly, AMAN 230 [place] [address] 12/17/2024 1:30 PM EDT Office Visit [facility] OPTOMETRY [address] [place], [place] [phone] Harry, Esther, OD 230 [place] [address] 01/21/2025 10:00 AM EDT Office Visit [facility] MEDICINE [address] [place], [place] [phone] Name, MD Balta 230 [place], [place] [phone] Health Maintenance Due Date Last Done Comments [...] EDT) Magnesium 2.6 1.6 - 2.6 mg/dL [facility] Blood Venous blood specimen / Unknown 09/19/2024 4:08 PM EDT 09/19/2024 6:18 PM EDT us Balta Jeffrey MD LAB BLOOD ORDERABLES Final Resul t [facility] [address] [place] [phone] * (ABNORMAL) Basic Metabolic Panel (09/19/2024 4:08 PM EDT) Only the most recent of4 resultswithin the time period is included. Sodium 142 135 - 145 mmol/L [facility] Potassium 4.8 3.3 - 5.1 mmol/L [facility] Chloride 108 96 - 108 mmol/L [facility] Carbon Dioxide 26 22 - 29 mmol/L [facility] Anion Gap 13 12 - 20 [facility] Urea Nitrogen (BUN) 20(H) 9 - 16 mg/dL [facility] Creatinine, Serum 1.38 0.5 - 1.4 mg/dL [facility] Estimated Glomerular Filt Rate 37 [facility] Comment:Chronic Kidney Disea se: Estimated GFR < 60 mL/min/1.37a5Lloqzn Kidney Disease: Estimated GFR < 15 mL/min/1.73m2 Glucose 123(H) 60 - 115 mg/dL [facility] Calcium 10.1 8.4 - 10.2 mg/dL [facility] Blood Venous blood specimen / Unknown 09/19/2024 4:08 PM EDT 09/19/2024 6:18 PM EDT us Balta Jeffrey MD LAB BLOOD ORDERABLES Final Resul t [facility] [address] [place] [phone] * POCT Glucose (09/19/2024 2:46 PM EDT) Only the most recent of2 resultswithin the time period is included. Pathologist [facility] Glucose Blood, POC 192 60 - 200 mg/dL QC Media Lot # [id number] Lot# Expiration Date [id number] Blood Capillary blood specimen / Unknown 09/19/2024 2:46 PM EDT us Balta Jeffrey MD POINT OF CARE TEST ENTER/EDIT OR DERABLES Final Result * POCT HGB A1C (09/03/2024 9:15 AM EST) Pathologist [facility] Hemoglobin A1C 5.3 4.0 - 6.0 % QC Media Lot # [id number] Lot# Expiration Date [id number] Blood 09/03/2024 9:15 AM EST us Jaymie Adams NP POINT OF CARE TEST ENTER/EDIT OR DERABLES Final Result * US RENAL BI (08/12/2024 12:35 PM EST) Anatomical Region Laterality Modality Abdomen Ultrasound 08/12/2024 12:3 5 PM EST Narrative 08/12/2024 12:36 PM EST ? [facility] ?[address] ?[place] [address] ? Ultrasound Report ? Signed ? Patient: Fischer Mike,Jayne ?MR#: [id number] ?? [id number] ? : 1945 ?Acct:[id number] ? Age/Sex: 78 / F ?ADM Date: 08/10/24 ? Loc: HO.IMC ?485-1 ? Attending Dr: Ernesto Morgan DO ? Ordering Physician: Ernesto Morgan DO ?? Date of Service: 08/12/24 ?? Procedure(s): US renal BI ?? Accession Number(s): [id number] ? cc: Name,Balta MAYER; Ernesto Morgan DO [...] DD/ 1235 ? TD/TT: 08/12/24 1235 ? Gas Pipe Layer: ? Procedure Note Gisselle, Image - 08/12/2024 [place] [address] Ultrasound Report Signed Patient: Sammie Francois EMR#: [id number] : 1945cct:[id number] Age/Sex: 78 / FADM Date: 08/10/24 Loc: [facility] 485-[address]: Ernesto Morgan DO Ordering Physician: Ernesto Morgan DO Date of Service: 08/12/24 Procedure(s): US renal BI Accession Number(s): [id number] cc: Balta Jeffrey MD; Ernesto Morgan DO [...] 08/12/24 1236 DD/ 1235 TD/TT: 08/12/24 1235 Gas Pipe Layer: us [facility] External Provider IMG US PROCEDURES Final Result * FL Esophagus Barium Swallow w/Air (07/30/2024 7:00 AM EST) Anatomical Region Laterality Modality Head, Neck Radiographic Melissa ging 07/30/2024 7:00 AM EST Narrative 07/31/2024 9:06 AM EST ? [facility] ?[address] ?[place] [address] ? Fluoroscopy Report ? Signed ? Patient: Amado CamargoSammie ray ?MR#: [id number] ?? [id number] ? : 1945 ?Acct:[id number] ? Age/Sex: 78 / F ?ADM Date: 07/24/24 ? Loc: HO.S3 ?387-1 ? Attending Dr: Renan Melton MD ? Ordering Physician: Renan Melton MD ?? Date of Service: 07/30/24 ?? Procedure(s): FL barium swallow with air ?? Accession Number(s): [id number] ? cc: Renan Melton MD; Name,Balta MAYER [...] DD/ 0700 ? TD/TT: 07/30/24 1110 ? Gas Pipe Layer: ? Procedure Note Gisselle, Image - 07/31/[address] [address] Fluoroscopy Report Signed Patient: Sammie Francois EMR#: [id number] : 4Acct:[id number] Age/Sex: 78 / FADM Date: 07/24/24 Loc: .S3 387-[address]: Renan Melton MD Ordering Physician: Renan Melton MD Date of Service: 07/30/24 Procedure(s): FL barium swallow with air Accession Number(s): [id number] cc: Renan Melton MD; Name,Balta MAYER EXAMINATION: [...] by: Troy Acuna MD 07/31/2024 09:04 AM [facility] Dictated By: Gabriel Ribeiro Signed By: <Electronically signed by Gabriel Ribeiro in OV> 07/31/24 0904 <Electronically signed by Troy Acuna MD in OV> 07/31/24 0906 DD/ 0700 TD/TT: 07/30/24 1110 Gas Pipe Layer: us [facility] Exter nal Provider IMG FLUOROSCOPY PROCEDURES Edited Result - Final * Lipid Panel, Standard (12/26/2023 1:22 PM EDT) Triglycerides 52 <150 mg/dL [facility] Comment:Desirable Triglyceri de: less than 150 mg/dLBorderline High Triglyceride 150-199 mg/dLHigh Triglyceride: 200-499 mg/dLVery High Triglyceride: greater than or equal to 5OO mg/dL Cholesterol 169 <200 mg/dL [facility] Comment:Desirable Cholestero l: less than 200 mg/dLBorderline High Cholesterol: 200-239 mg/dLHigh Cholesterol: greater than 239 mg/dL LDL Cholesterol Calculated 92 <100 mg/dL [facility] Comment:Desirable LDL: less than 100 mg/dLNear Optimal/Above Optimal LDL: 110- 129 mg/dLBorderline High LDL: 130-159 mg/dLHigh LDL: 160-189 mg/dLVery High LDL: greater than or equal to 190 mg/dL HDL Cholesterol 67 >40 mg/dL [facility] Comment:Desirable HDL: great er than 40 mg/dL Note: This HDL assay may give artificially low results in patients with liver disease. Blood Venous blood specimen / Unknown 12/26/2023 1:22 PM EDT 12/26/2023 3:56 PM EDT Balta Jeffrey MD LAB BLOOD ORDERABLES Final Resul t [facility] [address] [place] [address] [phone] from Last 3 Months or Most Recently Relevant to Health Maintenance Insurance [facility] Care Teams Shellfish Dredge Operator Relationship Specialty Start Date End Date Name, MD Balta [address] [place] [address] PCP - General Internal Medicine 06/14/22 Samir TAI 08/05/24
--- OUTSIDE RECORDS SUMMARY | 2024-10-25 17:12 | XMS_ITS | Encounter Summary ---
Author Organization [employer] [facility] Address [address] [place] [address] 7 [place] [address] Care Team Providers Care Nuclear Operator Name Role Phone Balta Jeffrey MD Primary Care Provider [phone] Encounter Details Date Type Department Care Team (Late Contact Info) Description 06/14/2022 Orders Only [facility] [address] [place] [address] Audrey Mcginnis, JERROD Social History Tobacco Use [...] Description 11/02/2024 1:00 PM EDT Office Visit [facility] [address] [place] [address] Ruslan Holly CNP [address] [place] [address] 12/17/2024 1:30 PM EDT Office Visit [facility] [address] [place] [address] Esther Mcdonald, OD 230 [place] [address] 01/21/2025 10:00 AM EDT Office Visit [facility] [address] [place] [address] Balta Jeffrey MD 230 [place] [address] documented as of this encounter Visit Diagnoses Not on filedocumented in this encounter Care Teams Nuclear Operator Relationship Specialty Start Date End Date Name, MD Balta 230 [place] [address] PCP - General Internal Medicine 06/14/22 Samir A 08/05/24 documented as of this encounter
--- OUTSIDE RECORDS SUMMARY | 2024-10-25 17:12 | XMS_ITS | Encounter Summary ---
Author Organization [employer] Address [address] [facility] [address] 7t [place] [address] Care Team Providers Care Assistant Womens Volleyball Coach Name Role Phone Name, Balta MAYER Primary Care Provider [phone] Reason for Visit * Reason Comments Med Refill Encounter Details Date Type Department Care Team (Late st Contact Info) Description 03/05/2024 Refill [facility] [address] [place], [place] [phone] Name, MD Balta [address] [place] [address] Social History Tobacco Use Types Packs/Day Years [...] Description 11/02/2024 1:00 PM EDT Office Visit [facility] [address] [place] [address] Ruslan Holly, BOTTOM SANDER 230 [place] [address] 12/17/2024 1:30 PM EDT Office Visit [facility] [address] [place] [address] Harry, Esther, OD 230 [place] [address] 01/21/2025 10:00 AM EDT Office Visit [facility] [address] [place] [address] Balta Jeffrey MD [address] [place] [address] documented as of this encounter Visit Diagnoses Not on filedocumented in this encounter Additional Health Concerns Assessment Noted Time PHQ-9 Depression Total Score: 0 09/20/19 24 1:15 PM EDT documented as of this encounter Care Teams Assistant Womens Volleyball Coach Relationship Specialty Start Date End Date Balta Jeffrey MD 230 [place] [address] PCP - General Internal Medicine 06/14/22 Samir TAI 08/05/24 documented as of this encounter
--- OUTSIDE RECORDS SUMMARY | 2024-10-25 17:12 | XMS_ITS | Encounter Summary ---
Author Organization [employer] Address [address] [facility] 7t [place] [address] Care Team Providers Care Manager Wealth Management Name Role Phone Name, Balta MAYER Primary Care Provider Reason for Visit * Reason Onset Date Comments ER Follow-up 08/06/2024 Encounter Details Date Type Department Care Team ([facility] Contact Info) Description 08/06/2024 Telephone [facility] [address] [place] [address] Name, MD Balta [address] [place] [address] ER Follow-up Social History Tobacco Use Types [...] from pt requesting a HDF appt. Hospital: [facility] Date of admission: 07/24/24 Discharge date: 08/02/24 Diagnosed: Acute Dysphagia *Send message to [place] Clinical Care Coordinators documented in this encounter Plan of Treatment Upcoming Encounters Date Type Department Care Team (Late st Contact Info) Description 11/02/2024 1:00 PM EDT Office Visit [facility] [address] [place] [address] Ruslan Holly, AMAN 230 [place] [address] 12/17/2024 1:30 PM EDT Office Visit [facility] [address] [place] [address] Esther Mcdonald, OD 230 [place] [address] 01/21/2025 10:00 AM EDT Office Visit [facility] [address] [place] [address] Name, MD Balta 230 [place] [address] documented as of this encounter Visit Diagnoses Not on filedocumented in this encounter Additional Health Concerns Assessment Noted Time PHQ-9 Depression Total Score: 0 09/20/19 24 1:15 PM EDT documented as of this encounter Care Teams Manager Wealth Management Relationship Specialty Start Date End Date Name, MD Balta 230 [place] [address] PCP - General Internal Medicine 06/14/22 Samir TAI 08/05/24 documented as of this encounter
--- OUTSIDE RECORDS SUMMARY | 2024-10-25 17:12 | XMS_ITS | Continuity of Care Document ---
Author Organization [facility] [employer] Address [address] [place] [address] Phone Care Team Providers Care Waste Reduction Coordinator Name Role Phone MD LEYLA Schreiber, Julia [...] Provider Providers Copied on Encounter [facility], [address], [place], [place], [id number], [place] tel:[phone] [facility] blurry vision (chief complaint) Combined forms of age-related cataract, bilateralDry eye syndrome of bilateral lacrimal glandsOpen angle with borderline findings, high risk, bilateral MD Julia Kitchen. [address] [facility], [place], [place], [id number] , [place]. tel: [phone] Referring Provider: Del Camp MD, [facility] [address] , [place], [address]. tel:[phone] Family History Family Member Type Diagnosis Age At Onset No Information Payers Payer name Insurance type Covered constitution party ID randy goff(s) [facility] [id number] Social History Type Description Quantity Date Captured [...]
--- OUTSIDE RECORDS SUMMARY | 2024-10-25 17:12 | XMS_ITS | Encounter Summary ---
Author Organization [employer] Address [address] [facility] 7t [place] [address] Care Team Providers Care Driller Helper Name Role Phone Name, Balta MAYER Primary Care Provider [phone] Reason for Visit * Reason Onset Date Comments Call Back Request 08/16/2024 Encounter Details Date Type Department Care Team ([facility] Contact Info) Description 08/16/2024 Telephone [facility] [address] [place] [address] Name, MD Balta [address] [place] [address] Call Back Request Social History Tobacco Use [...] the B12 injection. Please contact Daughter at [phone]. (New Zealander Speaker) documented in this encounter Plan of Treatment Upcoming Encounters Date Type Department Care Team ([facility] st Contact Info) Description 11/02/2024 1:00 PM EDT Office Visit [facility] [address] [place] [address] Ruslan Holly CNP 230 [place] [address] 12/17/2024 1:30 PM EDT Office Visit [facility] [address] [place] [address] Esther Mcdonald, OD 230 [place] [address] 01/21/2025 10:00 AM EDT Office Visit [facility] [address] [place] [address] Name, MD Balta 230 [place] [address] documented as of this encounter Visit Diagnoses Not on filedocumented in this encounter Additional Health Concerns Assessment Noted Time PHQ-9 Depression Total Score: 0 09/20/19 24 1:15 PM EDT documented as of this encounter Care Teams Driller Helper Relationship Specialty Start Date End Date Name, MD Balta 230 [place] [address] PCP - General Internal Medicine 06/14/22 Samir A 08/05/24 documented as of this encounter
--- OUTSIDE RECORDS SUMMARY | 2024-10-25 17:12 | XMS_ITS | Encounter Summary ---
Author Organization [employer] Address [address] [facility] [address] 7t [place] [address] Care Team Providers Care Engine Room Operator Name Role Phone Name, Balta MAYER Primary Care Provider [phone] Encounter Details Date Type Department Care Team (Late st Contact Info) Description 04/20/2023 Abstract [facility] [address] [place] [address] Name, MD Balta 230 [place] [address] Social History Tobacco Use Types Packs/Day Years [...] Description 11/02/2024 1:00 PM EDT Office Visit [facility] 230 [place] [address] Ruslan Holly, WETLANDS CONSERVATION LABORER 230 [place] [address] 12/17/2024 1:30 PM EDT Office Visit [facility] [address] [place] [address] Harry, Esther, OD 230 [place] [address] 01/21/2025 10:00 AM EDT Office Visit [facility] 230 [place] [address] Name, MD Balta [address] [place] [address] documented as of this encounter Visit Diagnoses Not on filedocumented in this encounter Additional Health Concerns Assessment Noted Time PHQ-9 Depression Total Score: 4 08/31/19 23 10:26 AM EST documented as of this encounter Care Teams Engine Room Operator Relationship Specialty Start Date End Date Name, MD Balta [address] [place] [address] PCP - General Internal Medicine 06/14/22 [facility] 08/05/24 documented as of this encounter
--- OUTSIDE RECORDS SUMMARY | 2024-10-25 17:12 | XMS_ITS | Encounter Summary ---
Author Organization [employer] Address [address] [facility] [address] 7t [place] [address] Care Team Providers Care Pelletizer Tender Name Role Phone Name, Balta MAYER Primary Care Provider [phone] Encounter Details Date Type Department Care Team ([facility] st Contact Info) Description 10/19/2024 Telephone [facility]S 505 [place] [address] Kishan Warner MD 505 [place] [address] Social History Tobacco Use Types Packs/Day Years [...] PM regarding Mrs. Victorina Mike. Suzie from [facility] visiting nurse reports that she went to see the patient to set up physical therapy and herheart rate was 44. She was asymptomatic. No chest pain/palpitation/dizziness or any other complaints. She was on carvedilol and she was supposed to stop that medication as discharge. Unclear if the medication was resumed diet patient return home after her hospitalization. I called her daughter at [phone]. No answer. Message left to inform her [...] Description 11/02/2024 1:00 PM EDT Office Visit [facility] 230 [place] [address] Ruslan Holly, AMAN 230 [place] [address] 12/17/2024 1:30 PM EDT Office Visit [facility] [address] [place] [address] Harry, Esther, OD 230 [place] [address] 01/21/2025 10:00 AM EDT Office Visit [facility] 230 [place] [address] Name, MD Balta [address] [place] [address] documented as of this encounter Visit Diagnoses Not on filedocumented in this encounter Additional Health Concerns Assessment Noted Time PHQ-9 Depression Total Score: 0 09/20/19 24 1:15 PM EDT documented as of this encounter Care Teams Pelletizer Tender Relationship Specialty Start Date End Date Name, MD Balta [address] [place] [id number] PCP - General Internal Medicine 06/14/22 [facility] 08/05/24 documented as of this encounter
--- OUTSIDE RECORDS SUMMARY | 2024-10-25 17:12 | XMS_ITS | Encounter Summary ---
Author Organization [employer] Address [address] [facility] [address] 7t [place] [address] Care Team Providers Care Electric Detector Operator Name Role Phone Name, Balta MAYER Primary Care Provider [phone] Encounter Details Date Type Department Care Team (Late st Contact Info) Description 07/20/2024 Community Care Management [facility] 230 [place], [place] [phone] [employer] Link, Physician, Social History Tobacco Use [...] Description 11/02/2024 1:00 PM EDT Office Visit [facility] [address] [place] [address] Ruslan Holly CNP 230 [place] [address] 12/17/2024 1:30 PM EDT Office Visit [facility] [address] [place] [address] Harry, Esther, OD 230 [place] [address] 01/21/2025 10:00 AM EDT Office Visit [facility] [address] [place] [address] Name, MD Balta [address] [place] [address] documented as of this encounter Visit Diagnoses Not on filedocumented in this encounter Additional Health Concerns Assessment Noted Time PHQ-9 Depression Total Score: 0 09/20/19 24 1:15 PM EDT documented as of this encounter Care Teams Electric Detector Operator Relationship Specialty Start Date End Date Balta Jeffrey MD [address] [place] [address] PCP - General Internal Medicine 06/14/22 [place] [facility] 08/05/24 documented as of this encounter
--- OUTSIDE RECORDS SUMMARY | 2024-10-25 17:12 | XMS_ITS | Encounter Summary ---
Author Organization [employer] Address [address] [facility] 7t [place] [address] Care Team Providers Care Client Success Specialist Name Role Phone Name, Balta MAYER Primary Care Provider [phone] Reason for Visit * Reason Onset Date Comments Durable Medical Equipment 10/08/2024 Encounter Details Date Type Department Care Team (Late st Contact Info) Description 10/08/2024 Telephone [facility] 230 [place] [address] Name, MD Balta [address] [place] [address] Durable Medical Equipment Social History Tobacco Use [...] RX for Commode signed and faxed to [facility] on 10/17/2024. Confirmation received and sent to scan. If patient calls to check status on above, please advise them to contact [facility] emergency care attendant . * Telephone Encounter - Tamiko Rodriguez [...] EDT Office Visit [facility] [address] [place] [address] Ruslan Holly, CHILD PSYCHOMETRIST 230 [place] [address] 12/17/2024 1:30 PM EDT Office Visit [facility] [address] [place] [address] Harry, Esther, OD 230 [place] [address] 01/21/2025 10:00 AM EDT Office Visit [facility] 230 [place] [address] Name, MD Balta 230 [place] [address] documented as of this encounter Visit Diagnoses Not on filedocumented in this encounter Additional Health Concerns Assessment Noted Time PHQ-9 Depression Total Score: 0 09/20/19 24 1:15 PM EDT documented as of this encounter Care Teams Client Success Specialist Relationship Specialty Start Date End Date Name, MD Batla [address] [place] [address] PCP - General Internal Medicine 06/14/22 [facility] 08/05/24 documented as of this encounter
== END 2024-10-25 14:31 | disposition home or self-care (01) ==
LOC: HO.HKA 14:10
PROVIDERS: PCP Internal Medicine Geriatric Medicine; Visit Provider Internal Medicine Hypertension Specialist
DX: N18.32 Chronic kidney disease, stage 3b (principal); E87.5 Hyperkalemia; I50.32 Chronic diastolic (congestive) heart failure
CPT/HCPCS: 99214

== ENCOUNTER → 2024-10-31 08:53 | Outpatient (BNVA) | payer OTHER, SELFPAY | PROVIDERS: PCP Internal Medicine Geriatric Medicine; Visit Provider Urology | DX: N39.0 Urinary tract infection, site not specified (principal) | CPT/HCPCS: 51700; 51798 ==

== ENCOUNTER 2024-11-09 12:57 | Outpatient (AMB) | payer OTHER, SELFPAY ==
--- NOTE | 2024-11-09 13:09 | MHC.OFFVIS ---
Vital Signs 11/09/24 13:10 Height 5 ft 2 in BMI Reason not done Patient refused/unable BP 128/70 Blood Pressure Location Lt brachial Position Sitting Pulse 73 Pulse Source Pulse Oximeter Intake Visit Reasons: 2 wk follow up [employer] Logger Required: Yes [employer] Logger Name: [id number] Allergies Penicillins [PENICILLINS] Allergy (Intermediate, Verified 10/25/24 14:15) NAUSEA/HIVES metformin Adverse Reaction (Unknown, Verified 10/25/24 14:15) Diarrhea Medication List - Last Reconciled 11/09/24 by Tonio Laws NP acetaminophen 650 mg (2 x 325 mg) PO Q6H PRN 30 days amlodipine 10 mg PO BEDTIME apixaban (Eliquis) 5 mg PO BID atorvastatin 40 mg PO DAILY 90 days calcium carbonate 600 mg PO DAILY cetirizine 10 mg PO DAILY cholecalciferol (vitamin D3) 1 tab PO DAILY cyanocobalamin (vitamin B-12) 1,000 mcg IM Q28D docusate sodium (Stool Softener) 100 mg PO DAILY empagliflozin (Jardiance) 10 mg PO DAILY ferrous gluconate 324 mg PO DAILY fluticasone propionate 50 mcg/actuation 1 - 2 sprays intranasal DAILY PRN furosemide 40 mg PO DAILY linaclotide (Linzess) 145 mcg PO DAILY mirtazapine 22.5 mg PO BEDTIME omeprazole 40 mg PO BID@0630,1630 oxybutynin chloride 5 mg PO BID walker Folding front wheeled walker HPI Comments Details: This is a 78-year-old female patient coming in for a 2 week follow-up visit. The patient is in a wheelchair and accompanied by her daughter and YEAST SUPERVISOR. A district court administrator was used throughout the visit. The patient with medical history of hypertension, hyperlipidemia, sleep apnea, diastolic heart failure, and AFib. During her last visit, patient reported experiencing dizziness with position changes and orthostatics were positive. Given her comorbidities, we opted for conservative management at that time. Today, the patient reports feeling much better overall and resolved symptoms of dizziness. Patient denies any cardiac symptoms including exertional chest pain, shortness of breath, palpitations, dizziness, fatigue, orthopnea, PND, leg edema, presyncope, or syncope. The patient affirms compliance with all her prescribed medications. [facility] Medical History Chronic diastolic heart failure Hydronephrosis, right Ureteral stone Dementia Calculus of proximal right ureter CKD (chronic kidney disease) Renal insufficiency Epigastric pain Tubular adenoma of colon Preop cardiovascular exam Urinary urgency Pneumonia Hospital discharge follow-up Asthma MARIA R (acute kidney injury) GERD (gastroesophageal reflux disease) Diabetes Osteoarthritis Hyperlipidemia Hypertension JOVANNI (obstructive sleep apnea) Surgical History Hx of cataract surgery Status post total knee replacement, right History of arthroplasty of right knee Hx of colonoscopy H/O: hysterectomy History of salpingoophorectomy History of tonsillectomy Family History Father HTN (hypertension) Mother HTN (hypertension) CVD (cardiovascular disease) Daughter Bone cancer Father Cancer Social History Household Members: Family Housing: House Are you a primary farm or ranch animal caretaker to a significant other at home: No Do you presently have visiting nurse or other home services: No Unable to assess alcohol history related to: Unknown Alcohol intake: never Comment: family at bedside Patient Tobacco Use Status: Never used Tobacco e-Cigarette/Vaping Use: Never Used Second Hand Smoke Exposure: No service: No Current occupational status: retired Current occupation: Right handed Review of Systems Const Denies weakness ENT Denies dizziness Card Denies chest pain, Denies chest pain with activity, Denies syncope, Denies rapid heart rate, Denies pedal edema, Denies edema, Denies leg edema, Denies lightheadedness, Denies palpitations, Denies dyspnea, Denies dyspnea on exertion and Denies orthopnea Resp Denies cough, Denies dyspnea and Denies dyspnea on exertion GI Denies hematochezia and Denies change in stool character Musc Denies abnormal gait, Denies muscle cramps, Denies muscle weakness, Denies numbness, Denies radiating pain into limb and Denies tingling Neuro Denies abnormal gait, Denies dizziness, Denies syncope, Denies numbness, Denies tingling and Denies weakness Endo Denies palpitations Physical Exam Vital Signs: Last Vital Signs Pulse 73 11/09/24 13:10 BP 128/70 11/09/24 13:10 Const General: cooperative, healthy appearing, comfortable and no acute distress Orientation/consciousness: patient oriented x3 HEENT Head: Yes normal to inspection Neck Neck: Yes normal visual inspection, Yes trachea midline and Yes supple Chest Chest palpation & inspection: normal inspection of the chest Resp Effort & Inspection: normal respiratory effort Auscultation: clear to auscultation bilaterally, no crackles, no rales, no rhonchi and no wheezes Cardio Jugular venous distension: no JVD Palpation: normal PMI Rate: bradycardic Rhythm: regular rhythm Heart sounds: S1 normal heart sound present, S2 normal heart sound present, no click, no gallops, no murmurs and no rubs Peripheral pulses: Peripheral pulses 2+ throughout GI Inspection: Yes normal to inspection Palpation (GI): Soft to palpation Auscultation: normal bowel sounds Skin General skin exam: no rashes or lesions noted Neuro General: patient oriented x3 Extrem General: Yes normal to inspection, No no pedal edema and No calf tenderness Psych Appearance: grossly normal Mental Status: mental status grossly normal Speech and movement: Normal speech and movement present Assessment & Plan Assessment & Plan (1) Atrial fibrillation: Code(s): I48.91 - Unspecified atrial fibrillation Category: Medical Plan: Continue Eliquis for full anticoagulation therapy. No reported signs of bleeding. Due to her bradycardia, patient's beta-luís was discontinued previously. (2) Chronic diastolic heart failure: Code(s): I50.32 - Chronic diastolic (congestive) heart failure Category: Medical Plan: Clinically euvolemic. Continue diuretics, Jardiance, and amlodipine. We will update echo in the near future. (3) Hypertension: Code(s): I10 - Essential (primary) hypertension Category: Medical Plan: Previously, patient had high blood pressure and her orthostatics were positive. Given her age and overall frailty, we opted to manage this conservatively. Today patient reports resolution of her symptoms. The patient's blood pressure was monitored at home and brings in a log which showed stable blood pressures. Continue current regimen. Advised continuing monitoring blood pressures at home. Ideally, blood pressure goal less than 130/80. (4) JOVANNI (obstructive sleep apnea): Code(s): G47.33 - Obstructive sleep apnea (adult) (pediatric) Category: Medical Plan: Does not use CPAP therapy. Emphasized the importance of CPAP therapy. (5) Hyperlipidemia: Code(s): E78.5 - Hyperlipidemia, unspecified Category: Medical Plan: Continue statin therapy. LDL goal less than 70. Advised heart healthy diet, regular exercise as tolerated, med compliance, and management of her vascular risk factors. We will follow up in the office in 4 months' time. In the interim, patient will call us with any concerns or change in symptoms. This note was generated using voice recognition software. While every effort has been made to ensure accuracy and proper marble and granite polisher, there may be occasional errors that could affect the content or meaning of the described symptoms. Coding Level of Care Code Est Pt Level 4 (99228) Complex EM visit Add On G2211 Diagnoses Atrial fibrillation I48.91 Chronic diastolic heart failure I50.32 Hypertension I10 JOVANNI (obstructive sleep apnea) G47.33 Hyperlipidemia E78.5 Time Spent (min) 31 Comment Time spent in reviewing the chart, test results, assessment, counseling and documentation.
[2024-11-09 13:10] VITALS: BP 128/70; PULSE 73
--- OUTSIDE RECORDS SUMMARY | 2024-11-09 13:19 | XMS_ITS | Encounter Summary ---
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) (Primary Dx); Decreased appetite Social History Tobacco Use Types Packs/Day Years [...] Sign Reading Time Taken Comments Blood Pressure 128/78 11/02/2024 12:57 PM EDT Pulse 72 11/02/2024 12:57 PM EDT Temperature 36.8 ??C (98.3 ??F) 11/02/2024 1 2:57 PM EDT Respiratory Rate 20 11/02/2024 12:5 7 PM EDT Oxygen Saturation 99% 11/02/2024 12: 57 PM EDT Inhaled Oxygen Concentration - - Weight 82.9 kg (182 lb 12.8 oz) 025 12:57 PM EDT Height - - Body Mass Index 32.38 09/19/2024 2:26 PM EDT documented in this encounter Progress Notes * Ruslan Holly CNP - 11/02/2024 1:00 PM EDT Subjective Patient ID: Victorina Mike is a 78 y.o. female who presents for sick onsite. Pt presents withher daughter and granddaughter today. They expressed that pt has been eating less, she does sit down and tries to eat 3 meals daily but never finishes her food, she eats small amounts at a time. She also receives total care for eating and all other ADLs due to her recent dementia diagnosis. As for her dizziness, they report that this has subsided since she discontinued her meds (see below). They plan to f/u with plumbing hardware assembler 11/09/24. They are also requesting 24 hour care for her since she is someone who is quickly declining and needs total care and supervision all hours of the day. Interim Hx: -had hospital discharge f/u with cardiology 10/25/24. She ws recently hospitalized for urosepsis forwhich she was treated with IV antibiotics and underwent cytoscopy with right urethral stent placement and is currently with a burrows catheter. At this visit elliquis held due to hematuria . Carvedilol discontinued due to bradycardia. At this visit she also experiencing dizziness upon standing. No other s/sx. She is primarily sedentary in wheelchair. Review of Systems Constitutional: Negative for appetite change, chills, diaphoresis, fatigue, fever and unexpected weight change. Respiratory: Negative for apnea, cough, chest tightness, shortness of breath and wheezing. Cardiovascular: Negative for chest pain and palpitations. Gastrointestinal: Negative for abdominal distention, abdominal pain, anal bleeding, blood in stool,constipation, diarrhea, nausea and vomiting. Genitourinary: Negative for hematuria and vaginal bleeding. Skin: Negative for pallor. Neurological: Negative for dizziness, syncope, speech difficulty, weakness, light-headedness, numbness and headaches. Hematological: Does not bruise/bleed easily. Psychiatric/Behavioral: Negative for agitation and decreased concentration. Objective Vitals: 11/02/24 1257 BP: 128/78 Pulse: 72 Resp: 20 Temp: 98.3 ??F (36.8 ??C) SpO2: 99% Physical Exam Constitutional: Appearance: Normal appearance. She is normal weight. Cardiovascular: Rate and Rhythm: Normal rate and regular rhythm. Pulses: Normal pulses. Heart sounds: Normal heart sounds. No murmur heard. No friction rub. No gallop. Pulmonary: Effort: Pulmonary effort is normal. No respiratory distress. Breath sounds: Normal breath sounds. No wheezing or rales. Neurological: General: No focal deficit present. Mental Status: She is alert and oriented to person, place, and time. Psychiatric: Mood and Affect: Mood normal. Behavior: Behavior normal. Assessment/Plan Problem List Items Addressed This Visit Mild vascular dementia (CMS/HCC) - Primary Due to pt's condition she would benefit from additional BUILDING MOVER hours as patient is in need of total care and supervision. Decreased appetite Due to pt's condition she would also benefit from supplemental nutrition via boost/ensure in addition to daily meals. Pt plans to f/u with cardiology next week and with PCP 01/2025. Pt may RTC sooner for new or worsening conditions. [facility] INDUSTRIAL ORGANIZATION MANAGER Attestation INDUSTRIAL ORGANIZATION MANAGER Resident Attestation: Patient was seen and evaluated by Rulsan Holly CNP, in collaboration with Balta Jeffrey MD whohas reviewed my assessment and plan. I, Balta Jeffrey MD, have reviewed the resident's note and agree with the assessment & plan of care as documented above. 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
--- OUTSIDE RECORDS SUMMARY | 2024-11-09 13:19 | XMS_ITS | Encounter Summary ---
Author Organization [employer] Address [address] [place] [address] Care Team Providers Care Commissions Specialist Name Role Phone Name, Balta MAYER Primary Care Provider [phone] Encounter Details Date Type Department Care Team (Late st Contact Info) Description 07/20/2024 Community Care Management [facility] MEDICINE [address] [place], [place] [id number] Epic[employer] Link, Physician, Social History Tobacco Use [...] [facility] OPTOMETRY [address] [place] [address] Harry, Esther, OD [address] [place] [address] 01/21/2025 10:00 AM EDT Office Visit [facility] MEDICINE [address] [place] [address] Name, MD Balta [address] [place] [address] documented as of this encounter Visit Diagnoses Not on filedocumented in this encounter Additional Health Concerns Assessment Noted Time PHQ-9 Depression Total Score: 0 09/20/19 24 1:15 PM EDT documented as of this encounter Care Teams Commissions Specialist Relationship Specialty Start Date End Date Name, MD Balta [address] [place] [address] PCP - General Internal Medicine 06/14/22 [facility] 08/05/24 documented as of this encounter
--- OUTSIDE RECORDS SUMMARY | 2024-11-09 13:19 | XMS_ITS | Encounter Summary ---
Author Organization [employer] Address [address] [facility] 7t [place] [address] Care Team Providers Care Oracle Identity Management Consultant Name Role Phone Name, Balta MAYER Primary Care Provider [phone] Reason for Visit * Reason Onset Date Comments ER Follow-up 08/06/2024 Encounter Details Date Type Department Care Team ([facility] Contact Info) Description 08/06/[address] [facility] MEDICINE [address] [place] [address] Name, MD Balta [address] [place] [id number] ER Follow-up Social History Tobacco Use Types [...] from pt requesting a HDF appt. Hospital: [facility] Date of admission: 07/24/24 Discharge date: 08/02/24 Diagnosed: Acute Dysphagia *Send message to Raymond Clinical Care Coordinators documented in this encounter Plan of Treatment Upcoming Encounters Date Type Department Care Team (Late st Contact Info) Description 12/17/2024 1:30 PM EDT Office Visit [facility] OPTOMETRY [address] [place] [address] Esther Mcdonald, OD [address] [place] [address] 01/21/2025 10:00 AM EDT Office Visit [facility] MEDICINE [address] [place] [address] Name, MD Balta [address] [place] [address] documented as of this encounter Visit Diagnoses Not on filedocumented in this encounter Additional Health Concerns Assessment Noted Time PHQ-9 Depression Total Score: 0 09/20/19 24 1:15 PM EDT documented as of this encounter Care Teams Oracle Identity Management Consultant Relationship Specialty Start Date End Date Name, MD Balta [address] [facility] [place] [address] PCP - General Internal Medicine 06/14/22 [facility]ir [facility] 08/05/24 documented as of this encounter
--- OUTSIDE RECORDS SUMMARY | 2024-11-09 13:19 | XMS_ITS | Encounter Summary ---
Author Organization [employer] Address [address] [facility] [address] [place] [address] Care Team Providers Care Service Center Manager Name Role Phone Name, Balta MAYER Primary Care Provider [phone] Encounter Details Date Type Department Care Team (Late st Contact Info) Description 04/20/2023 Abstract [facility] MEDICINE [address] [place] [address] Name, MD Balta [address] [place] [address] Social History Tobacco Use Types Packs/Day Years [...] Description 12/17/2024 1:30 PM EDT Office Visit [facility] OPTOMETRY [address] [place] [address] Harry, Esther, OD [address] [place] [address] 01/21/2025 10:00 AM EDT Office Visit [facility] MEDICINE [address] [place] [address] Name, MD Balta [address] [place] [address] documented as of this encounter Visit Diagnoses Not on filedocumented in this encounter Additional Health Concerns Assessment Noted Time PHQ-9 Depression Total Score: 4 08/31/19 23 10:26 AM EST documented as of this encounter Care Teams Service Center Manager Relationship Specialty Start Date End Date Name, MD Balta [address] [place] [address] PCP - General Internal [facility] documented as of this encounter
--- OUTSIDE RECORDS SUMMARY | 2024-11-09 13:19 | XMS_ITS | Encounter Summary ---
Author Organization [employer] Address [address] [facility] [address] [place] [address] Care Team Providers Care Tree And Shrub Technician Name Role Phone Name, Balta MAYER Primary Care Provider Reason for Visit * Reason Onset Date Comments Hospital Follow-up 10/18/2024 Encounter Details Date Type Department Care Team ([facility] st Contact Info) Description 10/18/2024 Telephone [facility] MEDICINE [address] [place] [address] Name, MD Balta [address] [place] [id number] Hospital Follow-up Social History Tobacco Use Types [...] - 10/18/2024 1:12 PM EDT Tc from lead care manager Victorina requesting a HDF appt. [facility] [facility] Date of admission: 10/08/24 Discharge date: 10/16/24 Diagnosed: Kidney stones and blood infection Contact pt daughter at [phone] (lithuanian) documented in this encounter Plan of Treatment Upcoming Encounters Date Type Department Care Team (Late st Contact Info) Description 12/17/2024 1:30 PM EDT Office Visit [facility] OPTOMETRY [address] [place] [address] Esther Mcdonald, OD [address] [place] [address] 01/21/2025 10:00 AM EDT Office Visit [facility] MEDICINE [address] [place] [address] Name, MD Balta [address] [place] [address] documented as of this encounter Visit Diagnoses Not on filedocumented in this encounter Additional Health Concerns Assessment Noted Time PHQ-9 Depression Total Score: 0 09/20/19 24 1:15 PM EDT documented as of this encounter Care Teams Tree And Shrub Technician Relationship Specialty Start Date End Date Name, MD Balta [address] [place] [address] PCP - General Internal Medicine 06/14/22 [facility] 08/05/24 documented as of this encounter
--- OUTSIDE RECORDS SUMMARY | 2024-11-09 13:19 | XMS_ITS | Clinical Summary ---
Author Organization [employer] Address [address] [facility] 7[address] [place] [address] Care Team Providers Care Manager Retail Name Role Phone Name, Balta MAYER Primary Care Provider Allergies Active Allergy Reactions Criticality Noted Date [...] mouth in the morning. 11/17/19 22 Active amLODIPine (Norvasc) 10 MG tablet Take 10 mg by mouth at bedtime. 10/16/19 23 Active fluticasone (Flonase) 50 MCG/ACT nasal sprayIndication s:Sinus congestion INSTILL 1-2 SPRAYS IN EACH NOSTRIL ONCE DAILY NEEDED 48 g 05/23/20 23 Active mirtazapine (Remeron) 15 MG tablet Take 15 mg by mouth at bedtime. 06/16/20 23 Active cholecalciferol (Vitamin D-3) 25 MCG tablet TAKE 1 TABLET BY MOUTH EVERY MORNING 90 tablet 3 12/01/19 24 Active oxybutynin (Ditropan) 5 MG tabletIndicatio ns:Urge incontinence TAKE 1 TABLET BY MOUTH TWICE DAILY IN THE MORNING AND AT BEDTIME NEEDED 180 tablet 3 12/01/19 24 Active Alcohol Swabs (Alcohol Prep) 70 % pads USE TWICE DAILY 100 each 11 01/10/20 24 Active TRUEplus Lancets 33G miscIndications :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) ([facility]) TEST BLOOD SUGAR TWICE DAILY DIRECTED 100 each 5 01/25/20 24 Active FREESTYLE LITE test stripIndication s: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) ([facility]) TEST BLOOD SUGAR TWICE DAILY [...] MONTH DIRECTED 1 mL 09/20/19 25 Active Eliquis 5 MG tablet Take 1 tablet (5 mg) by mouth 2 times daily. 11/03/19 25 Active Eliquis 5 MG tablet Take 5 mg by mouth 2 times daily. 11/07/19 23 025 Discontin ued(Side effects) carvedilol (Coreg) 25 MG tablet TAKE 1 TABLET BY MOUTH TWICE DAILY IN THE MORNING AND IN THE EVENING 06/16/20 025 Discontin ued(Side effects) Hospital, Clinic, or Other Facility Administered Medication [...] Active Problems Problem Noted Date Diagnosed Date Decreased appetite 11/02/2024 Abdominal bloating 09/19/2024 Acute hyperkalemia 09/19/2024 Asthma [...] stable to live alone and should have methods time analyst caregiver available (daughter) Choking 01/05/2024 Cough 01/05/2024 Hospital discharge follow-up 01/05/2024 Lymphedema 03/29/2023 Pneumonia 03/29/2023 Preop cardiovascular exam 03/29/2023 Renal insufficiency 03/29/2023 Urinary urgency 03/29/2023 Atrial fibrillation 11/17/2022 History of arthroplasty of right knee 11/17/2022 Varicose veins of right lower extremity with inf lammation 11/17/2022 Type 2 diabetes mellitus with obesity ([facility]/HCC) 08/31/2022 Lentiginosis 10/13/2018 JOVANNI (obstructive sleep apnea) 10/02/2018 Overview (09/19/2024): Not using CPAP Chronic diastolic heart failure 05/25/2018 Overview (09/21/2023): [address] [id number] CARDIOLOGY NAME: SAMMIE FRANCOIS EMERGENCY MANAGEMENT CONSULTANT: [facility] UNIT #: [id number] PATIENT LOCATION: EKG REFERRING PHYSICIAN: ANIYA BERNARD MD DATE OF : 41 PCP: ANIYA BERNARD MD SEX: Female DATE: 04/20/18 CARD ECHO 2D M MODE W DOPPLER COLOR [phone] SYMPTOMS,HX?: I10 ESSENTIAL HTN; R60.0 LOCALIZED EDEMA Transthoracic Echocardiogram Patient (Last, First, Middle): SAMMIE FRANCOIS E Gender: Female Date of : 1945 Age: 72 Procedure Date: 04/20/2018 Procedure Type: Transthoracic Echocardiogram Location: OP Height: 157.48 cm Weight: 81.65 kg BSA: 1.83 m2 Heart Rate: bpm BP: 144 / 78 mmHg Forensic Manager: Referring MD: ANIYA BERNARD MD Symptoms: [...] of Final JANI IYER MD Report #: [id number] Status: Signed Dict: 04/20/18/ Trans: /SUBRAH DATE PRINTED: //date// TIME PRINTED: //time// COPY TO: //ivnv// //add1// //add2// //add3// Tubular adenoma of colon [...] Encounters Date Type Department Care Team Description 11/05/[address] [address] Balta Jeffrey MD Durable Medical Equipment 11/02/2024 1:00 PM EDT Office Visit [address] [address] Holly, Alexxis, NAPHTHALENE OPERATOR 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) (Primary Dx); Decreased appetite 11/02/2024 Travel 10/25/[address] [address] Balta Jeffrey MD 10/24/[address] [address] Balta Jeffrey MD Nurse Triage 10/19/2024 Telephone [facility] [address] [place] [address] Kishan Warner MD 10/19/[address] [address] Balta Jeffrey MD Call Back Request 10/18/2024 Patient Outreach [address] [address] Balta Jeffrey MD Transition Of Care (Tcm) (HDF unscheduled) 10/18/[address] [address] Balta Jeffrey MD Hospital Follow-up 10/17/[address] [address] Ynes Stevenson, JERROD 10/08/[address] [address] Balta Jeffrey MD Durable Medical Equipment 10/08/[address] [address] Balta Jeffrey MD Appointment Request; Call Back Request 09/20/[address] [address] Balta Jeffrey MD 09/19/2024 2:15 PM EDT Office Visit [address] [address] Balta Jeffrey MD Stage 3 chronic kidney disease, unspecified whether stage 3a or 3b CKD (CMS/HCC) (Primary Dx); Hyperkalemia; Chronic diastolic heart failure (CMS/HCC); Type 2 diabetes mellitus with obesity ([facility]/HCC) ([facility]/HCC); Chronic constipation; Cobalamin deficiency; Encounter for immunization 09/19/[address] [address] Balta Jeffrey MD 09/07/[address] [address] Balta Jeffrey MD Durable Medical Equipment 09/03/2024 9:00 AM EST Office Visit [address] [address] Jaymie Adams NP MARIA R (acute kidney injury) ([facility]/HCC) (Primary Dx); Esophagitis; Type 2 diabetes mellitus with obesity ([facility]/HCC) ([facility]/HCC); 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 ([facility]/HCC) 08/24/[address] [address] Balta Jeffrey MD Lab Orders 08/23/[address] [address] Kirsty Garcia MA Chart Prep 08/17/2024 Telephone [place] [address] [place] [address] Balta Jeffrey MD Appointment Request 08/16/2024 Telephone [facility] MEDICINE [address] [place] [address] NameBalta MD Call Back Request 08/16/2024 Telephone [facility] [address] [place] [address] NameBalta MD Chart Prep from Last 3 Months Immunizations Name Administration [...] the past 12 months, has t he [employer], gas, oil or water company threatened to [...] 12.8 oz) 025 12:57 PM EDT Height 160 cm (5' 3 ) 09/19/2024 2:26 PM EDT Body Mass Index 32.38 09/19/2024 2:26 PM EDT Plan of Treatment Upcoming Encounters Date Type Department Care Team (Late st Contact Info) Description 12/17/2024 1:30 PM EDT Office Visit [facility] OPTOMETRY [address] [place] [address] Esther Mcdonald, OD [address] [place] [address] 01/21/2025 10:00 AM EDT Office Visit [facility] [address] [facility] [place] [address] Name, MD Balta [address] [place] [address] Health Maintenance Due Date Last Done Comments [...] RENAL BI Routine 08/12/2024 12:35 PM EST LIPID PANEL, STANDARD Routine 12/26/2023 1:22 PM EDT Hypertension, unspecified type from Last 3 Months or Most Recently Relevant to Health Maintenance Results * Magnesium (09/19/2024 4:08 PM EDT) Magnesium 2.6 1.6 - 2.6 mg/dL [facility] Blood Venous blood specimen / Unknown 09/19/2024 4:08 PM EDT 09/19/2024 6:18 PM EDT us Balta Jeffrey MD LAB BLOOD ORDERABLES Final Resul t [facility] [address] [place] [phone] * (ABNORMAL) Basic Metabolic Panel (09/19/2024 4:08 PM EDT) Only the most recent of2 resultswithin the time period is included. Sodium 142 135 - 145 mmol/L [facility] Potassium 4.8 3.3 - 5.1 mmol/L [facility] Chloride 108 96 - 108 mmol/L [facility] Carbon Dioxide 26 22 - 29 mmol/L [facility] Anion Gap 13 12 - 20 [facility] Urea Nitrogen (BUN) 20(H) 9 - 16 mg/dL [facility] Creatinine, Serum 1.38 0.5 - 1.4 mg/dL [facility] Estimated Glomerular Filt Rate 37 [facility] Comment:Chronic Kidney Disea se: Estimated GFR < 60 mL/min/1.36v0Oiozyj Kidney Disease: Estimated GFR < 15 mL/min/1.73m2 Glucose 123(H) 60 - 115 mg/dL [facility] Calcium 10.1 8.4 - 10.2 mg/dL [facility] Blood Venous blood specimen / Unknown 09/19/2024 4:08 PM EDT 09/19/2024 6:18 PM EDT us Balta Jeffrey MD LAB BLOOD ORDERABLES Final Resul t [facility] [address] [place] [phone] * POCT Glucose (09/19/2024 2:46 PM EDT) Only the most recent of2 resultswithin the time period is included. Glucose Blood, POC 192 60 - 200 mg/dL QC Media Lot # [id number] Lot# Expiration Date 09,055 Blood Capillary blood specimen / Unknown 09/19/2024 2:46 PM EDT us Gifford Wojciech MAYER POINT OF CARE TEST ENTER/EDIT OR DERABLES Final Result * POCT HGB A1C (09/03/2024 9:15 AM EST) Hemoglobin A1C 5.3 4.0 - 6.0 % QC Media Lot # [id number] Lot# Expiration Date ,689,279 Blood 09/03/2024 9:15 AM EST Jaymie Piotrshonda ACUTE CARE PHYSICIAN POINT OF CARE TEST ENTER/EDIT OR DERABLES Final Result * US RENAL BI (08/12/2024 12:35 PM EST) Anatomical Region Laterality Modality Abdomen Ultrasound 08/12/2024 12:3 5 PM EST Narrative 08/12/2024 12:36 PM EST ? [facility] ?[address] ?[place] [address] ? Ultrasound Report ? Signed ? Patient: Sammie Francois ?MR#: [id number] ?? [id number] ? : 1945 ?Acct:[id number] ? Age/Sex: 78 / F ?ADM Date: 08/10/24 ? Loc: [facility] ?485-1 ? Attending Dr: Ernesto Morgan DO ? Ordering Physician: Ernesto Morgan DO ?? Date of Service: 08/12/24 ?? Procedure(s): US renal BI ?? Accession Number(s): [id number] ? cc: Balta Jeffrey MD; Ernesto Morgan [...] DD/ 1235 ? TD/TT: 08/12/24 1235 ? Pcat Instructor: ? Procedure Note Donotuseinterpreter, Image - 08/12/[address] [address] Ultrasound Report Signed Patient: Sammie Francois EMR#: [id number] : 4Acct:[id number] Age/Sex: 78 / FADM Date: 08/10/24 Loc: [facility] 485-[address]: Ernesto Morgan DO Ordering Physician: Ernesto Morgan DO Date of Service: 08/12/24 Procedure(s): US renal BI Accession Number(s): [id number] cc: Wojciech,Balta MAYER; Ernesto Morgan DO CLINICAL HISTORY: MARIA [...] 08/12/24 1236 DD/ 1235 TD/TT: 08/12/24 1235 Pcat Instructor: us [facility] External Provider IMG US PROCEDURES Final Result * Lipid Panel, Standard (12/26/2023 1:22 PM EDT) Triglycerides 52 <150 mg/dL [facility] Comment:Desirable Triglyceri de: less than 150 mg/dLBorderline High Triglyceride 150-199 mg/dLHigh Triglyceride: 200-499 mg/dLVery High Triglyceride: greater than or equal to 5OO mg/dL Cholesterol 169 <200 mg/dL [facility] Comment:Desirable Cholestero l: less than 200 mg/dLBorderline High Cholesterol: 200-239 mg/dLHigh Cholesterol: greater than 239 mg/dL LDL Cholesterol Calculated 92 <100 mg/dL [facility] Comment:Desirable LDL: less than 100 mg/dLNear Optimal/Above Optimal LDL: 110- 129 mg/dLBorderline High LDL: 130-159 mg/dLHigh LDL: 160-189 mg/dLVery High LDL: greater than or equal to 190 mg/dL HDL Cholesterol 67 >40 mg/dL [facility] Comment:Desirable HDL: great er than 40 mg/dL Note: This HDL assay may give artificially low results in patients with liver disease. Blood Venous blood specimen / Unknown 12/26/2023 1:22 PM EDT 12/26/2023 3:56 PM EDT us Balta Jeffrey MD LAB BLOOD ORDERABLES Final Resul t [facility] [address] [place] [phone] [phone] from Last 3 Months or Most Recently Relevant to Health Maintenance Insurance [facility] [employer] OPT[employer] (O D-SNP) MIROSLAVA STRAUSS [id number] [place] [address] Care Teams Manager Retail Relationship Specialty Start Date End Date Name, MD Balta [address] [place] [phone] PCP - General Internal Medicine [facility]
--- OUTSIDE RECORDS SUMMARY | 2024-11-09 13:19 | XMS_ITS | Encounter Summary ---
Author Organization [employer] Address [address] [facility] [address] [place] [address] Care Team Providers Care Dowel Pin Man Name Role Phone Name, Balta MAYER Primary Care Provider [phone] Reason for Visit * Reason Onset Date Comments Nurse Triage 10/24/2024 Encounter Details Date Type Department Care Team (Late st Contact Info) Description 10/24/2024 Telephone [facility] [address] [place] [phone] Name, MD Balta [address] [place] [id number] Nurse Triage Social History Tobacco Use Types [...] Telephone Encounter - Flores Cabrera RN - 11/05/2024 2:30 PM EDT TC placed to pt via [employer] roller skate repairer (ID#[id number]) regarding increase in ASSISTANT IN NURSING hours. Per provider note, family is requesting 24 hour care for pt. Provider note states pt would benefit from increase in PCAhours. No answer, LVM to call office back and ask to speak to the blue team nurses. * Telephone Encounter - Fina Dominguez RN - 10/24/2024 4:06 PM EDT [place] [id number] [place] [id number] Priscila. Pt daughter reports Pthas been having sx of dizziness, poor appetite and not drinking fluids well, also back pain. Pt will be going to see academic hospitalist tomorrow due to slow heart rate and [...] become worse * Telephone Encounter - Luther Pardo - 10/24/2024 3:18 PM EDT Symptoms: Dizziness, Back Pain - Not From Injury Outcome: Transfer to a nurse or provider NOW! Reason: Can't stand (unless normally can't stand) The caller accepted this outcome. Contact pt Daughter at [phone] documented in this encounter Plan of Treatment Upcoming Encounters Date Type Department Care Team (Late st Contact Info) Description 12/17/2024 1:30 PM EDT Office Visit [facility] OPTOMETRY [address] [place] [address] Esther Mcdonald, OD [address] [place] [address] 01/21/2025 10:00 AM EDT Office Visit [facility] [address] [place] [address] Balta Jeffrey MD [address] [place] [address] documented as of this encounter Visit Diagnoses Not on filedocumented in this encounter Additional Health Concerns Assessment Noted Time PHQ-9 Depression Total Score: 0 09/20/19 24 1:15 PM EDT documented as of this encounter Care Teams Dowel Pin Man Relationship Specialty Start Date End Date Balta Jeffrey MD [address] [place] [address] PCP - General Internal Medicine 06/14/22 [facility] 08/05/24 documented as of this encounter
--- OUTSIDE RECORDS SUMMARY | 2024-11-09 13:19 | XMS_ITS | Data Portability ---
Author Organization Rep, Ct in [employer] Address [address] [place] [id number] Care Team Providers Care Manager Software Name Role Phone NAME, JOSE Primary Care Provider HIM CHRIS OTHER Assessment Encounter Date Assessment Date Assessment LastModified by Organization Details LastModified Time 10/07/2024 10/07/2024 Mrs. Amado Mike was evaluated for confusion and urinary symptoms. On assessment she is afebrile, mildly bradycardic and hypertensive. Per shrimp trawler assessment she is independently ambulatory with a [...] Assessment and Plan as documented by the Relaster. We discussed the diagnostic uncertainty of home [...] Assessment and Plan as documented by the Relaster. We discussed the diagnostic uncertainty of home [...] agreeable they are requesting she go to [facility]. EMS initiated by [facility] provider, I called report to director of cardiopulmonary servicesJaymie at [facility] ER [email or web address] Not available 10/08/2024 17:38:59 Plan of Treatment Reminders Order Date Submit Date Provider Last Modified By Organization Details Last Modified Time Details Appointments None recorded. Lab glucose, fingerstick , blood 2024 025 [email or web address], [address] 15:20:09 urinalysis, dipstick [address], [address] 19:19:04 BMP, serum or plasma [address], [address] 19:19:23 culture, urine 2024 025 INCHELIUM [facility] (Centralized Electronic Ordering - All Locations), Patient Can Go To The Location Of Their Choice, [address] 12:05:39 Referral None recorded. Procedures None recorded. Surgeries None recorded. Imaging electrocard iogram [address], [phone] 00:24:18 Medication Orders sodium chloride 0.9 % intravenous solution 2024 025 [email or web address] 0 [facility]armacy #[id number], [address] [place] [address], [address], 15:21:50 cefpodoxime 200 mg tablet 2024 025 CANDACE [facility]/Pharmacy #[id number], [address] [place] [address], [address], 14:03:27 ceftriaxone 1 gram solution for injection 2024 025 [email or web address] [facility]/Pharmacy #[id number], [address] [place] [address], [address], 14:11:56 sodium chloride 0.9 % intravenous solution 2024 025 [email or web address] [facility]/Pharmacy #[id number], [address] [place] [address], [address], 14:12:07 Patient TargetsNo targets recorded. Patient InstructionsNo instructions recorded. Reason for Referral None Reported. Results Created Date Observation Date Name Description Value Unit Range Abnormal Flag Note LastModifiedBy Organization Detail LastModifiedTime 10/08/1910/09/2024 URINE CULTU RE,CO MPREH ENSIV E urine culture,comp rehensive Final report abnormal Not Available [facility] ([facility]) [address] [facility], [place], [address], 10/09/2024 14:06:17 10/08/19 25 10/09/2024 URINE CULTU RE,CO MPREH ENSIV E result 1 Klebsi abhi oxytoc a abnormal Great er than 100,0 00 colon y formi ng units per mL Not Available [facility] ([facility]) [address] [facility], [place], [address], 10/09/2024 14:06:17 10/08/19 25 10/09/2024 URINE CULTU RE,CO MPREH ENSIV E result 2 Not applic able Not Available [facility] ([facility]) [address] [facility], [place], [address], 10/09/2024 14:06:17 10/08/19 25 10/09/2024 URINE CULTU [...] thopr im/Foster lfa S Not Available [facility] ([facility]) [address] [facility], [place], [address], 10/09/2024 14:06:17 10/09/19 25 10/08/2024 gluco se, finge rstic k, blood Blood Glucose: mg/dl 220 Not Available [facility] - [address], [address] 10/08/2024 15:18:52 10/09/1910/08/2024 odette augr am No observ ation record ed. [address], [address] 10/08/2024 18:13:27 Result Notes None recorded. Procedures Surgical History None recorded. Imaging Results Imaging Date Name Status LastModified by Organization Details LastModified Time 10/08/2024 electrocardiogram completed [address], [phone] 10/08/2024 18:13:27 Procedure Notes None recorded. Medical Equipment None Reported. Allergies Allergen ID Allergen Name Allergen Category Reaction Reaction Severity Criticality Documentation Date Start Date Code Code System Note Provider Name and Address Organization Details Recorded Time 46753 Product containin g penicilli n (product) medicatio n Not available Not available Not available 10/07/2024 42730 8001 SNOMED Not Available [facility] - production [...] % 134 mm[Hg] 76 mm[Hg] Not Available [employer] 5 13:57:20 Date Recorded Respiratory rate Body height Body weight Oxygen saturation Oxygen saturation in Arterial blood by Pulse oximetry Heart rate Systolic blood pressure Diastolic blood pressure Provider Name and Address Organization Details Last Updated DateTime 5 14 /min 157.48 cm 62126.6 g 96 % 96 % 40 /min 109 mm[Hg] 63 mm[Hg] Not Available [employer] 5 15:17:36 Social History None recorded. Functional Status None recorded. Mental Status None recorded. Family History Nothing Reported. Medical History No medical history recorded. Gynecological HistoryNo gynecological history recorded. Obstetrics History GPAL:G 0 P 0 0 0 0 Past Encounters Encounter ID Performer Location Encounter Start Date Encounter Closed Date Diagnosis/Indication Diagnosis SNOMED-CT Code Diagnosis ICD10 Code Diagnosis Note [id number] ROSALIO MCARTHUR MD Main - [facility] [address] [place] [phone] 10/07/2024 13:57:18 10/30/2024 16:31:13 Acute urinary tract infection 155797329 N39.0 [id number] Charlotte Cao MD Main - [address] [phone] 10/08/2024 15:17:33 10/08/2024 23:30:26 Altered mental status [id number] R41.82 posible urosepsis patient is borderline hypotensiv e, clammy,, she is not hypoglycem ic. EKG reveals sinus bradycardi a at a rate of 48/there is a CT visible but the EKG did not capture [...] Monzon Member ID Guarantor Name 10/07/2024 1 [facility] - DOS ON OR AFTER 2022 - DUAL ELIGIBLE - FPC OPTIONS AND ONE CARE (MEDICARE REPLACEMENT/ADV ANTAGE - HMO) Victorina Mike [id number] Victorina Mike 10/08/2024 1 [facility] - DOS ON OR AFTER 2022 - DUAL ELIGIBLE - [facility] OPTIONS AND ONE CARE (MEDICARE REPLACEMENT/ADV ANTAGE - HMO) Victorina Mike [id number] Victorina Mike Notes Date Note Type Note [...] at 10/07/2024 Allergies Reviewed at 10/07/2024 Comments: Concession Cashier verified the Pt.'s name//address and phone number. [...] the counter medication - Wellness check requested. Relaster Organization Information for José Miguel Romero [employer] Legal Name: [employer] Address: [address] [place] [address], [place] [address], Movie Stunt Performer: Juan Wilson MD CLIA No.: [id number] Relaster POC Test Results from José Miguel Romero [...] .................... .................... .................... .................... .................... .................... . Relaster Note From JoséM iguel Romreo: This visit is for an 78-year-old female [...] questions and are agreeable to this plan. [facility] Lab Orders: urinalysis, dipstick: Performed BMP, serum or plasma: Performed culture, urine: Performed [facility] Medication Orders: ceftriaxone 1 gram solution for injection: Administered sodium chloride 0.9 % intravenous solution: Administered .................... .................... .................... .................... .................... .................... .................... . [facility] Consulted: Rosalio Mcarthur .................... .................... .................... .................... .................... .................... .................... . Disposition: Moon MCARTHUR MD [address] [place] [address],[address], [place], [address], Rep 10/07/2024 14:53:49 10/08/2024 text/html CRC Nurse Triage [...] 2PMH Reviewed at 10/08/2024:56Allergies Reviewed at 10/08/2024:56Comments: Concession Cashier verified the name//address and phone number. Son [...] s/s and seek emergency treatment if need Relaster Organization Information for Elma Mensah [employer] Legal Name: [employer].? Address: [address] [place] [address], Movie Stunt Performer: Morro Kwon MD CLIA No.: [id number] Relaster POC Test Results from Elma Mensah CAIN EKG (15:22:55) EKG test performed. Attachments uploaded as part of this test result can be found under Documents section. Blood Glucose Measurement (15:22:57) Blood Glucose: 220 mg/dL .................... .................... .................... .................... .................... .................... .................... . Relaster Note From Elma Mensah: SHELLEY makes pt [...] she is not bleeding anywhere. Pt is Chinese-speaking only and family is present and on the phone to provide hx and translation. Family tells SHELLEY the pt was seen by [facility] yesterday and dx w/ a UTI, a [...] bit worse over the past couple days. [facility] obtains vital signs and pt is assessed. [...] touch. Pt continues to be sleepy . [facility] contacts [facility] and discusses the above. Out of concern for urosepsis, [facility] and [facility] feel pt should be transported to the hospital for further evaluation and care. Family is amendable to the plan. [facility] orders FSBG, a 12-lead EKG, and 500mls NS fluid bolus. Finger stick and EKG are obtained. A 20ga IV is established in the L AC and 500mls NS are administered. [facility] calls 911 and pt is transported to [facility] by [facility]. [facility] is clear. Report completed by NISHA Mensah [id number]. [facility] Lab Orders: glucose, fingerstick, blood: Performed [facility] Medication Orders: sodium chloride 0.9 % intravenous solution: Administered .................... .................... .................... .................... .................... .................... .................... . [facility] Consulted: Charlotte Cao .................... .................... .................... .................... [...] out gram-negative rods. Charlotte Cao MD [address] [facility],[address], [place], [address], Rep 10/08/2024 17:39:10 OBGyn Episode No OBEpisode recorded.
--- OUTSIDE RECORDS SUMMARY | 2024-11-09 13:19 | XMS_ITS | Encounter Summary ---
Author Organization [employer] Address [address] [place] [address] Care Team Providers Care Axminster Rug Setter Name Role Phone Name, Balta MAYER Primary Care Provider [phone] Reason for Visit * Reason Comments Med Refill Encounter Details Date Type Department Care Team (Late st Contact Info) Description 03/05/2024 Refill [facility] MED & PEDS [address] [place], [place] [phone] Name, MD Balta [address] [place] [address] Social History Tobacco Use Types Packs/Day Years [...] [facility] OPTOMETRY [address] [place] [address] Harry, Esther, OD [address] [place] [address] 01/21/2025 10:00 AM EDT Office Visit [facility] MEDICINE [address] [place] [address] Name, MD Balta [address] [place] [address] documented as of this encounter Visit Diagnoses Not on filedocumented in this encounter Additional Health Concerns Assessment Noted Time PHQ-9 Depression Total Score: 0 09/20/19 24 1:15 PM EDT documented as of this encounter Care Teams Axminster Rug Setter Relationship Specialty Start Date End Date Name, MD Balta [address] [place] [address] PCP - General Internal Medicine 06/14/22 [facility] 08/05/24 documented as of this encounter
--- OUTSIDE RECORDS SUMMARY | 2024-11-09 13:19 | XMS_ITS | Encounter Summary ---
Author Organization [employer] [facility] Address [address] [place] [address] 7[address] [place] [address] Care Team Providers Care Assembler Leather Goods Name Role Phone Name, Balta MAYER Primary Care Provider [phone] Encounter Details Date Type Department Care Team (Late Contact Info) Description 06/14/2022 Orders Only [facility] MEDICINE [address] [place] [address] Audrey Mcginnis, JERROD Social History Tobacco Use [...] Visit [facility] OPTOMETRY [address] [place] [address] Esther Mcdonald, OD [address] [place] [address] 01/21/2025 10:00 AM EDT Office Visit [facility] MEDICINE [address] [place] [address] Balta Jeffrey MD [address] [place] [address] documented as of this encounter Visit Diagnoses Not on filedocumented in this encounter Care Teams Assembler Leather Goods Relationship Specialty Start Date End Date NameBalta MD [address] [place] [address] PCP - General Internal Medicine 06/14/22 [facility]ir [facility] 08/05/24 documented as of this encounter
--- OUTSIDE RECORDS SUMMARY | 2024-11-09 13:19 | XMS_ITS | Encounter Summary ---
Author Organization [employer] Address [address] [facility] 7[address] [place] [address] Care Team Providers Care Associate Project Manager Name Role Phone Name, Balta MAYER Primary Care Provider [phone] Reason for Visit * Reason Onset Date Comments Call Back Request 08/16/2024 Encounter Details Date Type Department Care Team ([facility] Contact Info) Description 08/16/2024 Telephone [facility] MEDICINE [address] [place] [address] Name, MD Balta [address] [place] [address] Call Back Request Social History Tobacco Use [...] the B12 injection. Please contact Daughter at [phone]. (Fijian Speaker) documented in this encounter Plan of Treatment Upcoming Encounters Date Type Department Care Team (Late st Contact Info) Description 12/17/2024 1:30 PM EDT Office Visit [facility] OPTOMETRY [address] [place] [address] Harry, Esther, OD [address] [place] [address] 01/21/2025 10:00 AM EDT Office Visit [facility] MEDICINE [address] [place], [place] [phone] Name, MD Balta [address] [place] [address] documented as of this encounter Visit Diagnoses Not on filedocumented in this encounter Additional Health Concerns Assessment Noted Time PHQ-9 Depression Total Score: 0 09/20/19 24 1:15 PM EDT documented as of this encounter Care Teams Associate Project Manager Relationship Specialty Start Date End Date Name, MD Balta [address] [place] [address] PCP - General Internal Medicine 06/14/22 Samir TAI 08/05/24 documented as of this encounter
--- OUTSIDE RECORDS SUMMARY | 2024-11-09 13:19 | XMS_ITS | Encounter Summary ---
Author Organization [employer] Address [address] [facility] 7t [place] [address] Care Team Providers Care Washer Operator Name Role Phone Name, Balta MAYER Primary Care Provider [phone] Reason for Visit * Reason Onset Date Comments Durable Medical Equipment 11/05/2024 Encounter Details Date Type Department Care Team (Late st Contact Info) Description 11/05/2024 Telephone [facility] MEDICINE [address] [place] [address] Name, MD Balta [address] [place] [address] Durable Medical Equipment Social History Tobacco Use [...] * Telephone Encounter - Nancy Guillen - 11/05/2024 3:18 PM EDT DME RX for Boost generated and placed on providers desk for signature. * Telephone Encounter - Nancy Guillen - 11/05/2024 3:18 PM EDT ----- Message from [employer] sent at 11/02/2024 1:25 PM EDT ----- Benton Cruz, can you please generate request for boost or ensure (3 bottles daily) and also generaterequest for increase in [employer] hours if possible. Thank you! [email or web address] documented in this encounter Plan of Treatment Upcoming Encounters Date Type Department Care Team (Late st Contact Info) Description 12/17/2024 1:30 PM EDT Office Visit [facility] OPTOMETRY [address] [place] [address] Esther Mcdonald, OD [address] [place], [place] [phone] 01/21/2025 10:00 AM EDT Office Visit [facility] MEDICINE [address] [place] [address] Name, MD Balta [address] [place] [address] documented as of this encounter Visit Diagnoses Not on filedocumented in this encounter Additional Health Concerns Assessment Noted Time PHQ-9 Depression Total Score: 0 09/20/19 24 1:15 PM EDT documented as of this encounter Care Teams Washer Operator Relationship Specialty Start Date End Date Name, MD Balta [address] [place] [address] PCP - General Internal Medicine 06/14/22 Samir A 08/05/24 documented as of this encounter
== END 2024-11-09 13:56 | disposition home or self-care (01) ==
LOC: HO.HCS 12:58
PROVIDERS: PCP Internal Medicine Geriatric Medicine
DX: I48.91 Unspecified atrial fibrillation (principal); I50.32 Chronic diastolic (congestive) heart failure; I10 Essential (primary) hypertension; G47.33 Obstructive sleep apnea (adult) (pediatric); E78.5 Hyperlipidemia, unspecified
CPT/HCPCS: 99214; G2211

== ENCOUNTER → 2024-11-09 12:57 | Outpatient (BNVA) | payer OTHER, SELFPAY | PROVIDERS: PCP Internal Medicine Geriatric Medicine | DX: I11.0 Hypertensive heart disease with heart failure (principal); I50.32 Chronic diastolic (congestive) heart failure; G47.33 Obstructive sleep apnea (adult) (pediatric); E78.5 Hyperlipidemia, unspecified | CPT/HCPCS: 99212 ==

== ENCOUNTER → 2024-12-05 08:14 | Outpatient (REF) | payer OTHER, SELFPAY ==
--- NOTE | ~2024-12-05 | NM_ITS ---
EXAMINATION: CO RADIONUCLIDE SOLID FOOD GASTRIC EMPTYING 4-HOUR STUDY CLINICAL INFORMATION: R10.13 - Epigastric pain COMPARISON: None TECHNIQUE: A standard meal consisting of 4 oz of Egg Beaters brand tagged with 0.72 mCi Tc-99m Sulfur Colloid, 8 oz water and 1.25 slices of toast with jelly was administered orally to the patient. Images were obtained using a dual head gamma camera in the anterior and posterior projections over of the stomach immediately post ingestion and at hourly intervals up to 4 hours post ingestion. The anterior and posterior counts at each time interval were averaged using the geometric mean and expressed as percentage of the immediate post ingestion counts. FINDINGS: There is visualization of activity in the stomach immediately post ingestion. As the study progresses, there is minimal clearance of activity from the stomach and only minimal visualization of small bowel activity. Retention in the stomach at each time interval was: 1 hour 93% (normal 37%-90%) 2 hours 90% (normal 30%-60%) 3 hours 93% 4 hours 91% (normal 0%-10%) CO/CO gastric emptying study IMPRESSION: Markedly delayed gastric emptying with approximately 90% of ingested activity remaining within the stomach at 4 hours. For solid meal, rapid gastric emptying is less than 30% at 60 minutes. Delayed gastric emptying criteria is more than 60% remaining at 120 minutes or more than 10% at 240 minutes. The 4-hour value is the best discriminator of a normal or abnormal result). Gastric emptying study grading per JNMT Consensus Recommendations in 2008 (https://tech.snmjournals.org/content/36/1/44) Grade 1 (mild retention): 11-20% at 4h Grade 2 (moderate retention): 21-35% at 4h Grade 3 (severe retention): 36-50% at 4h Grade 4 (very severe retention): >50% retention at 4h Electronically signed by: Abdirashid Rodriguez MD 12/05/2024 01:24 PM EDT
--- OUTSIDE RECORDS SUMMARY | 2024-12-05 08:27 | XMS_ITS | Encounter Summary ---
Author Organization [employer] Address [address] [place] [address] Care Team Providers Care Linen Grader Name Role Phone Name, Balta MAYER Primary Care Provider [phone] Encounter Details Date Type Department Care Team (Late st Contact Info) Description 07/20/2024 Community Care Management [facility] MEDICINE [address] [place] [address] Epic[employer] Link, Physician, Social History Tobacco Use [...] Description 12/17/2024 1:30 PM EDT Office Visit [facility] OPTOMETRY [address] [place] [address] Harry, Esther, OD [address] [place] [address] 12/18/2024 9:30 AM EDT Clinical Support [facility] MEDICINE [address] [place] [address] 01/21/2025 10:00 AM EDT Office Visit [facility] MEDICINE [address] [place] [address] Name, MD Balta [address] [place] [address] documented as of this encounter Visit Diagnoses Not on filedocumented in this encounter Additional Health Concerns Assessment Noted Time PHQ-9 Depression Total Score: 0 09/20/19 24 1:15 PM EDT documented as of this encounter Care Teams Linen Grader Relationship Specialty Start Date End Date Name, MD Balta [address] [place] [address] PCP - General Internal Medicine 06/14/22 [place] [facility] 08/05/24 documented as of this encounter
== END ==
LOC: HO.NUCMED 08:14
PROVIDERS: PCP Internal Medicine Geriatric Medicine; Visit Provider Nurse Practitioner
DX: R10.13 Epigastric pain (principal); K59.04 Chronic idiopathic constipation
CPT/HCPCS: 78264; A9541

== ENCOUNTER → 2024-12-05 08:20 | Outpatient (BNV) | payer OTHER, SELFPAY | PROVIDERS: PCP Internal Medicine Geriatric Medicine; Visit Provider Radiology Diagnostic Radiology | DX: R10.13 Epigastric pain (principal) | CPT/HCPCS: 78264 ==

== ENCOUNTER 2024-12-07 11:21 | Outpatient (REF) | payer OTHER, SELFPAY ==
--- NOTE | ~2024-12-07 | US_ITS ---
CLINICAL HISTORY: N13.30 - Unspecified hydronephrosis US Renal Comparison: 08/12/2024 Findings: Right kidney normal size and echotexture, 9.9 cm length. Left kidney normal size and echotexture, 8.1 cm length. No hydronephrosis of either kidney. Normal color Doppler IMPRESSION: 1. Normal kidneys. This document has been electronically signed by: Porfirio Ram MD on 12/08/2024 10:29:27
--- OUTSIDE RECORDS SUMMARY | 2024-12-07 12:16 | XMS_ITS | Encounter Summary ---
Author Organization [employer] Address [address] [place] [address] Care Team Providers Care Biological Aide Name Role Phone Name, Balta MAYER Primary Care Provider [phone] Encounter Details Date Type Department Care Team (Late st Contact Info) Description 07/20/2024 Community Care Management [facility] MEDICINE [address] [place] [address] [employer] Link, Physician, Social History Tobacco Use [...] Description 12/17/2024 1:30 PM EDT Office Visit [facility] OPTOMETRY [address] [place] [address] Harry, Esther, OD [address] [place] [address] 12/18/2024 9:30 AM EDT Clinical Support [facility] MEDICINE [address] [place] [address] 01/21/2025 10:00 AM EDT Office Visit [facility] MEDICINE [address] [place] [address] Name, MD Balta [address] [place] [address] documented as of this encounter Visit Diagnoses Not on filedocumented in this encounter Additional Health Concerns Assessment Noted Time PHQ-9 Depression Total Score: 0 09/20/19 24 1:15 PM EDT documented as of this encounter Care Teams Biological Aide Relationship Specialty Start Date End Date Name, MD Balta [address] [place] [address] PCP - General Internal Medicine 06/14/22 [facility] 08/05/24 documented as of this encounter
== END 2024-12-07 11:22 | disposition home or self-care (01) ==
LOC: HO.US 11:21
PROVIDERS: PCP Internal Medicine Geriatric Medicine; Visit Provider Urology
DX: N13.30 Unspecified hydronephrosis (principal); N20.1 Calculus of ureter; A41.9 Sepsis, unspecified organism
CPT/HCPCS: 76775

== ENCOUNTER → 2024-12-07 11:22 | Outpatient (BNV) | payer OTHER, SELFPAY | PROVIDERS: PCP Internal Medicine Geriatric Medicine; Visit Provider Specialist | DX: N13.30 Unspecified hydronephrosis (principal) | CPT/HCPCS: 76775 ==

== ENCOUNTER 2024-12-13 13:50 | Outpatient (AMB) | payer OTHER, SELFPAY ==
--- NOTE | 2024-12-13 14:55 | A.OFFVIS_ITS ---
Intake Visit Reasons: Follow up Intake Note: Patient presents to office today for follow up Urology Medications: oxybuytin Blood thinners: none PVR:0ml High Risk Case Manager Required: Yes Accompanied by: Daughter Allergies Penicillins [PENICILLINS] Allergy (Intermediate, Verified 12/13/24 14:56) NAUSEA/HIVES metformin Adverse Reaction (Unknown, Verified 12/13/24 14:56) Diarrhea HPI Comments Details: UTI and had a ureteral stent since that time she has had a urinary infection recent renal ultrasound does not make mention of the stent or kidney stones I want to check a KUB on as I do not see documentation where the stent was removed they have the patient has been treated in the past for and is in oxybutynin She was Admitted to the hospital in October for Victorina is a 76-year-old female who presents to the clinic as a new patient evaluation for urinary incontinence. 10/11/2022-- The patient is a Tam[place] speaking female. She presents to the clinic with her daughter who interpreted for her. Complains having incontinence and nocturia for several years. The patient is taking oxybutynin 5 mg BID daily Denies leakage while coughing. Had hysterectomy due to fibroids in [place] about 15 years ago. Denies having history of kidney stones. The patient states having constipation and takes prunes in the morning which is helping her to have regular bowel movements. Evaluation today: Blood: negative, leukocytes: trace. Bladder scan: 137 mL. Pelvic floor exam: Pelvic floor relaxation, no significant vaginal prolapse noted. Catheterized post void residual was 45 mL. Plan: OAB. Discussed to replace the oxybutynin 5 mg BID daily with Gemtesa. Gemtesa 75 mg QD. Renal US was ordered. Follow-up after 2 months. [facility] Medical History Chronic diastolic heart failure Hydronephrosis, right Ureteral stone Dementia Calculus of proximal right ureter CKD (chronic kidney disease) Renal insufficiency Epigastric pain Tubular adenoma of colon Preop cardiovascular exam Urinary urgency Pneumonia Hospital discharge follow-up Asthma MARIA R (acute kidney injury) GERD (gastroesophageal reflux disease) Diabetes Osteoarthritis Hyperlipidemia Hypertension JOVANNI (obstructive sleep apnea) Surgical History Hx of cataract surgery Status post total knee replacement, right History of arthroplasty of right knee Hx of colonoscopy H/O: hysterectomy History of salpingoophorectomy History of tonsillectomy Family History Father HTN (hypertension) Mother HTN (hypertension) CVD (cardiovascular disease) Daughter Bone cancer Father Cancer Social History Household Members: Family Housing: House Are you a primary auto care center manager to a significant other at home: No Do you presently have visiting nurse or other home services: No Unable to assess alcohol history related to: Unknown Alcohol intake: never Comment: family at bedside Patient Tobacco Use Status: Never used Tobacco e-Cigarette/Vaping Use: Never Used Second Hand Smoke Exposure: No service: No Current occupational status: retired Current occupation: Right handed Results AMB Urinalysis, Automated UA Leukoctes 500 Leroy/uL Last Edit by Kindra Nina on 12/13/24 16:43 UA Nitrite Negative Last Edit by Kindra Nina on 12/13/24 16:43 UA Urobilinogen 3.5 mg/dL Last Edit by Kindra Nina on 12/13/24 16:43 UA Protein 1 mg/dL Last Edit by Kindra Nina on 12/13/24 16:43 UA pH 6.0 Last Edit by Kindra Nina on 12/13/24 16:43 UA Blood 10 Emiliano/uL Last Edit by Kindra iNna on 12/13/24 16:43 UA Specific [place] 1.010 Last Edit by Kindra Nina on 12/13/24 16:43 UA Ketone Negative Last Edit by Kindra Nina on 12/13/24 16:43 UA Bilirubin 0 mg/dL Last Edit by Kindra Nina on 12/13/24 16:43 UA Glucose 60 mg/dL Last Edit by Kindra Nina on 12/13/24 16:43 Assessment & Plan Assessment & Plan Orders: Orders AMB Urinalysis Automated Today N39.0 - Urinary tract infection, site not specified Coding
--- OUTSIDE RECORDS SUMMARY | 2024-12-13 16:23 | XMS_ITS | Encounter Summary ---
Author Organization [employer] Address [address] [facility] [place] [address] Care Team Providers Care Devulcanizer Charger Name Role Phone Name, Balta MAYER Primary Care Provider [phone] Encounter Details Date Type Department Care Team (Late st Contact Info) Description 07/20/2024 Community Care Management [facility] [address] [place] [address] Epiccare Link, Physician, Social History Tobacco Use [...] Description 12/17/2024 1:30 PM EDT Office Visit [facility] [address] [place] [address] Harry, Esther, OD [address] [place] [address] 12/18/2024 9:30 AM EDT Clinical Support [facility] [address] [place] [address] 01/21/2025 10:00 AM EDT Office Visit [facility] [address] [place] [phone] Name, MD Balta [address] [place] [phone] documented as of this encounter Visit Diagnoses Not on filedocumented in this encounter Additional Health Concerns Assessment Noted Time PHQ-9 Depression Total Score: 0 09/20/19 24 1:15 PM EDT documented as of this encounter Care Teams Devulcanizer Charger Relationship Specialty Start Date End Date Name, MD Balta [address] [place] [phone] PCP - General Internal Medicine 06/14/22 [facility] 08/05/24 documented as of this encounter
== END 2024-12-13 15:31 | disposition home or self-care (01) ==
LOC: HO.HUSH 13:50
PROVIDERS: PCP Internal Medicine Geriatric Medicine; Visit Provider Urology
DX: N39.0 Urinary tract infection, site not specified (principal)

== ENCOUNTER 2024-12-13 16:04 | Outpatient (REF) | payer OTHER, SELFPAY ==
--- NOTE | ~2024-12-13 | XR_ITS ---
EXAMINATION: XR ABDOMEN 1 VIEW (KUB) HISTORY: Z96.0 - Presence of urogenital implants COMPARISON: Correlation is made with intraoperative imaging dated 10/09/2024. FINDINGS: A single supine view of the abdomen is submitted. The bowel gas pattern is unremarkable, without evidence of mechanical obstruction. There has been migration of the previously seen right ureteral stent the proximal portion in the mid ureter and a large portion of the stent likely in the bladder. There are multiple phleboliths in the pelvis. There are no abnormal soft tissue masses. There is degenerative change and levoscoliosis of the spine. XR/XR KUB IMPRESSION: Migration of the right ureteral stent with the proximal portion in the mid ureter. Electronically signed by: Abdirashid Rodriguez MD 12/14/2024 07:45 AM EDT
== END 2024-12-13 16:05 | disposition home or self-care (01) ==
LOC: HO.XRAY 16:04
PROVIDERS: PCP Internal Medicine Geriatric Medicine; Visit Provider Urology
DX: N39.0 Urinary tract infection, site not specified (principal); Z96.0 Presence of urogenital implants
CPT/HCPCS: 74018; 81003

== ENCOUNTER → 2024-12-13 16:07 | Outpatient (BNV) | payer OTHER, SELFPAY | PROVIDERS: PCP Internal Medicine Geriatric Medicine; Visit Provider Radiology Diagnostic Radiology | DX: Z96.0 Presence of urogenital implants (principal) | CPT/HCPCS: 74018 ==

== ENCOUNTER 2024-12-17 08:28 | Outpatient (AMB) | payer OTHER, SELFPAY ==
--- NOTE | 2024-12-17 08:28 | A.OFFVIS_ITS ---
Intake Visit Reasons: follow up Intake Note: Patient presents to office via telehealth today for follow up Urology Medications: oxybuytin Blood thinners: none Light Industrial Supervisor Required: Yes Accompanied by: Daughter Allergies Penicillins (PENICILLINS) Allergy (Intermediate, Verified 01/22/25 16:00) NAUSEA/HIVES metformin Adverse Reaction (Unknown, Verified 01/22/25 16:00) Diarrhea Medication List - Last Reconciled 12/17/24 by Jennifer Salas MD acetaminophen 650 mg (2 x 325 mg) PO Q6H PRN 30 days amlodipine 10 mg PO BEDTIME apixaban (Eliquis) 5 mg PO BID atorvastatin 40 mg PO DAILY 90 days calcium carbonate 600 mg PO DAILY cetirizine 10 mg PO DAILY cholecalciferol (vitamin D3) 1 tab PO DAILY cyanocobalamin (vitamin B-12) 1,000 mcg IM Q28D docusate sodium (Stool Softener) 100 mg PO DAILY empagliflozin (Jardiance) 10 mg PO DAILY ferrous gluconate 324 mg PO DAILY fluticasone propionate 50 mcg/actuation 1 - 2 sprays intranasal DAILY PRN furosemide 40 mg PO DAILY hydrochlorothiazide 12.5 mg PO DAILY linaclotide (Linzess) 145 mcg PO QAM losartan 25 mg PO BID metoclopramide HCl (Reglan) 10 mg PO QIDACHS mirtazapine 22.5 mg PO BEDTIME omeprazole 40 mg PO BID@0630,1630 oxybutynin chloride 5 mg PO BID walker Folding front wheeled walker [facility] Comments Details: 12/17/24--She was admitted to the hospital in October for UTI and had a ureteral stent since that time she has had a urinary infection History of Present Illness - The patient is an 79-year-old female presenting for Telehealth fu. - Stent identified on recent KUB X-ray. The patient was informed of the typical symptoms associated with the stent, including increased urinary frequency and dysuria. - Symptoms include urinary frequency and dysuria. - Office urine test showed no abnormalities, negating the need for culture. Urinary Symptoms Review - Increased urinary frequency. - Occasional burning sensation during urination. - No urinary infections were indicated in prior urine sample. Results - KUB X-ray: Ureteric stent visualized. 10/11/2022-- The patient is a German speaking female. She presents to the clinic with her daughter who interpreted for her. Complains having incontinence and nocturia for several years. The patient is taking oxybutynin 5 mg BID daily Denies leakage while coughing. Had hysterectomy due to fibroids in [place] about 15 years ago. Denies having history of kidney stones. The patient states having constipation and takes prunes in the morning which is helping her to have regular bowel movements. Evaluation today: Blood: negative, leukocytes: trace. Bladder scan: 137 mL. Pelvic floor exam: Pelvic floor relaxation, no significant vaginal prolapse noted. Catheterized post void residual was 45 mL. Plan: OAB. Discussed to replace the oxybutynin 5 mg BID daily with Gemtesa. Gemtesa 75 mg QD. Renal US was ordered. Follow-up after 2 months. [facility] Medical History (Updated 01/22/25 @ 16:39 by PHUONG Kenndey) Diarrhea Diverticulitis Abdominal bloating Epigastric pain Chronic diastolic heart failure Hydronephrosis, right Ureteral stone Dementia Calculus of proximal right ureter CKD (chronic kidney disease) Renal insufficiency Tubular adenoma of colon Preop cardiovascular exam Urinary urgency Pneumonia Hospital discharge follow-up Asthma MARIA R (acute kidney injury) GERD (gastroesophageal reflux disease) Diabetes Osteoarthritis Hyperlipidemia Hypertension JOVANNI (obstructive sleep apnea) Surgical History Hx of cataract surgery Status post total knee replacement, right History of arthroplasty of right knee Hx of colonoscopy H/O: hysterectomy History of salpingoophorectomy History of tonsillectomy Family History Father HTN (hypertension) Mother HTN (hypertension) CVD (cardiovascular disease) Daughter Bone cancer Father Cancer Social History Household Members: Family Housing: House Are you a primary progressive care unit registered nurse to a significant other at home: No Do you presently have visiting nurse or other home services: No Unable to assess alcohol history related to: Unknown Alcohol intake: never Comment: family at bedside Patient Tobacco Use Status: Never used Tobacco e-Cigarette/Vaping Use: Never Used Second Hand Smoke Exposure: No service: No Current occupational status: retired Current occupation: Right handed Telehealth Telehealth Telehealth Platform: Telephone Location of provider rendering services: practice address Location of patient: address on file Patient Identification confirmed using: Name, : Yes Telehealth method: voice only Patient verbally consented to treatment: Yes Patient verbally consented to billing insurance company: Yes Patient informed of any privacy concerns related to visit: Yes Minutes spent on Phone/Video with Pt.: 13 Results Reviewed Results Reviewed: Date of Service: 12/13/24 EXAMINATION: XR ABDOMEN 1 VIEW (KUB) HISTORY: Z96.0 - Presence of urogenital implants COMPARISON: Correlation is made with intraoperative imaging dated 10/09/2024. FINDINGS: A single supine view of the abdomen is submitted. The bowel gas pattern is unremarkable, without evidence of mechanical obstruction. There has been migration of the previously seen right ureteral stent the proximal portion in the mid ureter and a large portion of the stent likely in the bladder. There are multiple phleboliths in the pelvis. There are no abnormal soft tissue masses. There is degenerative change and levoscoliosis of the spine. IMPRESSION: Migration of the right ureteral stent with the proximal portion in the mid ureter. Date of Service: 12/07/24 CLINICAL HISTORY: N13.30 - Unspecified hydronephrosis US Renal Comparison: 08/12/2024 Findings: Right kidney normal size and echotexture, 9.9 cm length. Left kidney normal size and echotexture, 8.1 cm length. No hydronephrosis of either kidney. Normal color Doppler IMPRESSION: 1. Normal kidneys. Assessment & Plan Assessment & Plan (1) Ureteral stent present: Code(s): Z96.0 - Presence of urogenital implants Category: Medical Plan Plan - Set up appointment for cysto/ureteric stent removal. Patient Instructions: The patient had an opportunity to ask questions regarding treatment plan. The patient expressed understanding and agreement with the above treatment plan. The patient is aware they should contact our office by phone for worsening of their current condition or the appearance of new symptoms. Compliance is encouraged with any medications and followup testing that is ordered. It is a privilege to be allowed the opportunity to participate in the urologic care of your patient. If you have any questions or concerns regarding treatment for the above conditions please do not hesitate to contact me. The office telephone contact is [phone]. This note is constructed in part using voice recognition software. While every effort has been made to ensure accuracy skirt maker errors may have been included. Yours sincerely, Jennifer Salas MD Scribe Plan - Not visible on output: Patient was informed and verbally consented to the use of an ambient scribe for clinic note documentation during this visit. Coding Level of Care Code Tele Est Pt Level 3 (80440) Diagnoses Ureteral stent present Z96.0
--- OUTSIDE RECORDS SUMMARY | 2024-12-17 08:34 | XMS_ITS | Encounter Summary ---
Author Organization [employer] Address [address] [facility] [address] [place] [address] Care Team Providers Care Medical Registrar Name Role Phone Name, Balta MAYER Primary Care Provider [phone] Encounter Details Date Type Department Care Team (Late st Contact Info) Description 07/20/2024 Community Care Management [facility] [address] [place] [address] Epiccare Link, Physician, Social History Tobacco Use [...] Description 12/17/2024 1:30 PM EDT Office Visit [facility]OM[facility] [address] [place] [address] Harry, Esther, OD [address] [place] [address] 12/18/2024 9:30 AM EDT Clinical Support [facility] [address] [place] [address] 01/21/2025 10:00 AM EDT Office Visit [facility] [address] [place] [phone] Name, MD Balta [address] [place] [phone] documented as of this encounter Visit Diagnoses Not on filedocumented in this encounter Additional Health Concerns Assessment Noted Time PHQ-9 Depression Total Score: 0 09/20/19 24 1:15 PM EDT documented as of this encounter Care Teams Medical Registrar Relationship Specialty Start Date End Date Name, MD Balta [address] [place] [phone] PCP - General Internal Medicine 06/14/22 [facility] 08/05/24 documented as of this encounter
== END 2024-12-17 09:06 | disposition home or self-care (01) ==
LOC: HO.HUSH 08:28
PROVIDERS: PCP Internal Medicine Geriatric Medicine; Visit Provider Urology
DX: Z96.0 Presence of urogenital implants (principal)
CPT/HCPCS: 99213

== ENCOUNTER → 2024-12-17 08:28 | Outpatient (BNVA) | payer OTHER, SELFPAY | PROVIDERS: PCP Internal Medicine Geriatric Medicine; Visit Provider Urology ==

== ENCOUNTER → 2024-12-18 14:53 | Outpatient (BNVA) | payer OTHER, SELFPAY | PROVIDERS: PCP Internal Medicine Geriatric Medicine ==

== ENCOUNTER 2025-01-09 12:06 | Outpatient (REF) | payer OTHER, SELFPAY ==
--- OUTSIDE RECORDS SUMMARY | 2024-08-13 09:00 | XMS_ITS | Continuity of Care Document ---
Author Organization [facility] Address [address] [place] [address] Phone Care Team Providers Care Admissions Nurse Name Role Phone MD LEYLA Schreiber, Julia [...] Provider Providers Copied on Encounter [facility], [address], [place], [place], [address], [place] tel:[phone] [facility] blurry vision (chief complaint) Combined forms of age-related cataract, bilateralDry eye syndrome of bilateral lacrimal glandsOpen angle with borderline findings, high risk, bilateral MD Julia Kitchen. [address] [facility], [place], [place], [address] , [place]. tel: [phone] Referring Provider: Del Camp MD, [facility] [address] , [place], [address]. tel:[phone] Family History Family Member Type Diagnosis Age At Onset No Information Payers Payer name Insurance type Covered constitution party ID randy goff(s) [facility] CI [id number] Social History Type Description Quantity Date Captured [...]
--- OUTSIDE RECORDS SUMMARY | 2025-01-09 12:46 | XMS_ITS | Encounter Summary ---
Author Organization [employer] Address [address] [facility] [address] [place] [address] Care Team Providers Care Safety Intern Name Role Phone Name, Balta MAYER Primary Care Provider [phone] Encounter Details Date Type Department Care Team (Late st Contact Info) Description 07/20/2024 Community Care Management [facility] [address] [place] [address] Epiccare Link, Physician, Social History Tobacco Use [...] Care Team (Late st Contact Info) Description 01/21/2025 10:00 AM EDT Office Visit [facility] [address] [place] [phone] NameBalta MD [address] [place] [address] 01/21/2025 1:00 PM EDT Clinical Support [facility] [address] [place] [address] 06/19/2025 10:00 AM EST Office Visit [facility] [address] [place] [address] Harry, Esther, OD [address] [place] [address] documented as of this encounter Visit Diagnoses Not on filedocumented in this encounter Additional Health Concerns Assessment Noted Time PHQ-9 Depression Total Score: 0 09/20/19 24 1:15 PM EDT documented as of this encounter Care Teams Safety Intern Relationship Specialty Start Date End Date NameBalta MD [address] [place] [id number] PCP - General Internal Medicine 06/14/22 [facility] 08/05/24 documented as of this encounter
--- OUTSIDE RECORDS SUMMARY | 2025-01-09 12:46 | XMS_ITS | Data Portability ---
Author Organization [employer] [facility], [facility] Address [address] [place] [phone] Care Team Providers Care Medical Clerical Assistant Name Role Phone NAME, JOSE Primary Care Provider HIM CHRIS OTHER Assessment Encounter Date Assessment Date Assessment LastModified by Organization Details LastModified Time 10/07/2024 10/07/2024 Mrs. Amado degroot was evaluated for confusion and urinary symptoms. On assessment she is afebrile, mildly bradycardic and hypertensive. Per blind stitch machine operator assessment she is independently ambulatory with a [...] Assessment and Plan as documented by the Cannery Tender Engineer. We discussed the diagnostic uncertainty of home visits and the risk associated with this. In this case the patient and I felt this to be an acceptable and reasonable amount of risk given the benefit of avoiding an ED visit. The patient given the opportunity to ask questions. Advised if develops CP/severe SOB/turning blue/uncontrolled n/v/d or black/bloody emesis or stool/ AMS/ syncope/ hi fever unresponsive to APAP to call 911- verbalized understanding of instruction [email or web address] Not available 10/07/2024 14:13:08 10/08/2024 10/08/2024 I provided real -time medical direction via phone for this encounter, and was available for additional phone based assistance as needed. I have reviewed and agree with the Assessment and Plan as documented by the Cannery Tender Engineer. We discussed the diagnostic uncertainty of home [...] agreeable they are requesting she go to [facility]. EMS initiated by [facility] provider, I called report to edging machine operatorJaymie at [facility] ER [email or web address] Not available 10/08/2024 17:38:59 11/23/2024 11/23/2024 service called for burning on urination found 79 anthony with hx HTN T2DM CKD hydronephrosis last UTI 1 month prior, 3 in past 6 month most recent 10/07/2024 with Urosepsis and hydronephrosis UCx 10/07 growing Kleb oxytoca monroy sens; denies fever, chills stable appetitie VS af 160/53 79 95%RA no abd tendrness, no CVAT All: PCN, has tolerated cephalosporins UA:+4 LE, +NIT #Complicated UTI recent Urosepsis empiric treatment for klebb oxytoca 1g CFTX cefpodox follow on f/up Ucx notify service if worsening or no improvement otherwise return to ptimary team [email or web address] Not available 11/23/2024 21:32:38 Plan of Treatment Reminders Order Date Submit Date Provider Last Modified By Organization Details Last Modified Time Details Appointments None recorded. Lab urinalysis, dipstick 2024 025 [facility], [address] [place] [address], [place], [phone] 20:08:02 BMP, serum or plasma 2024 025 [facility], [address] [place] [address], [phone] 20:08:02 culture, urine 2024 [facility], [address], [address], [place], [address], 20:14:38 urinalysis, dipstick 2024 025 [facility], 1930[facility], [address] [place] [address], [phone] 20:08:03 glucose, fingerstick , blood 2024 [email or web address] 0 [facility], [address] [place] [address], [phone] 15:20:09 urinalysis, dipstick 2024 [facility], [facility], [address] [place] [address], [phone] 19:19:04 BMP, serum or plasma 2024 [facility], [facility], [address] [place] [address], [phone] 19:19:23 culture, urine 2024 SYLVESTER [facility] (Centralized Electronic Ordering - All Locations), Patient Can Go To The Location Of Their Choice, [address] 12:05:39 Referral None recorded. Procedures None recorded. Surgeries None recorded. Imaging electrocard iogram 2024 [facility], [facility], [address] [place] [address], [phone] 00:24:18 Medication Orders cefpodoxime 200 mg tablet 2024 025 [facility]/Pharmacy #[id number], [address] [facility], [place], [address], 19:21:07 sodium chloride 0.9 % intravenous solution 2024 025 [email or web address] 0 [facility]/Pharmacy #[id number], [address] [place], [address], 15:21:50 cefpodoxime 200 mg tablet 2024 025 CANDACE [facility]/Pharmacy #[id number], [address] [place], [address], 18:19:44 ceftriaxone 1 gram solution for injection 2024 025 [email or web address] [facility]/Pharmacy #[id number], [address] [place], [address], 14:11:56 sodium chloride 0.9 % intravenous solution 2024 025 [email or web address] [facility]/Pharmacy #[id number], [address] [place], [address], 14:12:07 Patient TargetsNo targets recorded. Patient InstructionsNo instructions recorded. Reason for Referral None Reported. Results Created Date Observation Date Name Description Value Unit Range Abnormal Flag Note LastModifiedBy Organization Detail LastModifiedTime 10/08/1910/09/2024 URINE CULTU RE,CO MPREH ENSIV E urine culture,comp rehensive Final report abnormal Not Available [facility] ([facility]) [address] [place], [address], 10/09/2024 14:06:17 10/08/19 25 10/09/2024 URINE CULTU RE,CO MPREH ENSIV E result 1 Klebsi abhi oxytoc a abnormal Great er than 100,0 00 colon y formi ng units per mL Not Available [facility] ([facility]) [address] [place], [address], 10/09/2024 14:06:17 10/08/19 25 10/09/2024 URINE CULTU RE,CO MPREH ENSIV E result 2 Not applic able Not Available [facility] ([facility]) [address] [place], [address], 10/09/2024 14:06:17 10/08/19 25 10/09/2024 URINE CULTU [...] ic Acid S Ampic illin R Cefep tai S Cefox itin S Cefpo doxim e S Ceftr iaxon e S Cipro floxa laurie S Ertap enem S Genta micin S Levof loxac in S Merop enem S Nitro furan toin S Tetra cycli ne S Tobra mycin S Trime thopr im/Foster lfa S Not Available [facility] ([facility]) [address] [facility], [place], [address], 10/09/2024 14:06:17 10/09/19 25 10/08/2024 gluco se, finge rstic k, blood Blood Glucose: mg/dl 220 Not Available [facility] [address] [place] [address], [phone] 10/08/2024 15:18:52 11/24/19 25 11/29/2024 CULTU RE, URINE , ROUTI NE culture, urine, routine SEE NOTE abnormal CULTU RE, URINE , ROUTI NE Micro Numbe r: [id number] Test Statu s: Final Speci men Sourc e: Not given Speci men Quali ty: Adequ ate Resul t: Great er than 100,0 00 CFU/m L of Esche jarrell a coli 50,00 0-100 ,000 CFU/m L of Klebs iella aerog emma (Ente robac ter) E.col i K. aerog emma ----- ----- ----- - ----- ----- ----- - INT ROBIN INT ROBIN AMOX/ CLAVU LANAT E S <=2 R >=32 AMP/S ULBAC CELAYA S <=2 * CEFAZ MICHAEL NR <=4 2 R >=64 3 CEFEP TAI S <=0.1 2 S <=0.1 2 CEFTA ZIDIM E S <=1 S <=1 CEFTR IAXON E S <=0.2 5 S <=0.2 5 CIPRO FLOXA LAURIE S <=0.0 6 S <=0.0 6 GENTA MICIN S <=1 S <=1 IMIPE NEM S <=0.2 5 * LEVOF LOXAC IN S <=0.1 2 S <=0.1 2 MEROP ENEM S <=0.2 5 S <=0.2 5 NITRO FURAN TOIN S <=16 I 64 PIP/T AZOBA CTAM S <=4 S <=4 TRIME THOPR IM/FOSTER LFA S <=20 S <=20 S = Susce ptibl e I = Inter media te R = Resis tant NS = Not susce ptibl e SDD = Susce ptibl e Dose Depen dent * = Not Teste d NR = Not Repor awilda NN = See Thera py Comme nts THERA PY COMME NTS Note 1: For infec tions other than uncom plica awilda UTI cause d by E. coli, K. pneum oniae or P. mirab ilis: Cefaz michael is resis tant if ROBIN > or = 8 mcg/m L. (Dist ingui shing susce ptibl e versu s inter media te for isola govind with ROBIN < or = 4 mcg/m L requi res addit ional testi ng.) Note 2: For uncom plica awilda UTI cause d by E. coli, K. pneum oniae or P. mirab ilis: Cefaz michael is susce ptibl e if ROBIN <32 mcg/m L and predi cts susce ptibl e to the oral agent s cefac marya, cefdi yamilet, cefpo doxim e, cefpr ozil, cefur oxime , cepha lexin and lorac arbef . Note 3: For uncom plica awilda UTI cause d by E. coli, K. pneum oniae or P. mirab ilis: Cefaz michael is susce ptibl e if ROBIN <32 mcg/m L and predi cts susce ptibl e to the oral agent s cefac marya, cefdi yamilet, cefpo doxim e, cefpr ozil, cefur oxime , cepha lexin and lorac arbef . Not Available [facility] [address], [place], [address], 11/29/2024 10:07:23 10/09/19 25 10/08/2024 elect shabbir diogr am No observ ation record ed. [email or web address] Main - [facility] [address] [place] [address], [phone] 10/08/2024 18:13:27 Result Notes None recorded. Medical Equipment None Reported. Allergies Allergen ID Allergen Name Allergen Category Reaction Reaction Severity Criticality Documentation Date Start Date Code Code System Note Provider Name and Address Organization Details Recorded Time 63721 Product containin g penicilli n (product) medicatio n Not available Not available Not available 10/07/2024 72336 8001 SNOMED Not Available [facility] - production [...] tablet TAKE 1 TABLET BY MOUTH EVERY 12 HOURS FOR 10 DAYS active Not Available Not Available Not Available omeprazole 40 mg capsule,alix yed release [...] Available Not Available No t Available losartan 25 mg tablet TAKE 1 TABLET BY [...] Not Available Not Available No t Available metocloprami de 10 mg tablet TAKE 1 TABLET BY MOUTH FOUR TIMES DAILY BEFORE MEALS AND AT BEDTIME active Not Available Not Available N ot Available Alcohol Prep Pads USE DIRECTED TWICE DAILY active Not Available Not Available Not Available cholecalcife rol (vitamin D3) 25 mcg (1,000 unit) tablet TAKE 1 TABLET BY MOUTH EVERY MORNING active Not Available Not Available No t Available ferrous gluconate 324 mg (38 mg iron) tablet TAKE 1 TABLET BY MOUTH EVERY MORNING active Not Available Not Available No t Available hydrochlorot hiazide 12.5 mg tablet TAKE 1 TABLET BY MOUTH [...] Available Not Available No t Available TRUEplus Glucose 3.75 gram chewable tablet CHEW 4 TABLETS NEEDED FOR low blood sugar (LESS THAN 70mg/dL) active Not Available Not Available No t Available Vitals Date Recorded Heart rate Respiratory rate Body temperature Oxygen saturation Oxygen saturation in Arterial blood by Pulse oximetry Systolic blood pressure Diastolic blood pressure Provider Name and Address Organization Details Last Updated DateTime 50 /min 14 /min 98.9 [degF] 97 % 97 % 134 mm[Hg] 76 mm[Hg] Not Available [employer] [facility] 13:57:20 Date Recorded Respiratory rate Body height Body weight Oxygen saturation Oxygen saturation in Arterial blood by Pulse oximetry Heart rate Systolic blood pressure Diastolic blood pressure Provider Name and Address Organization Details Last Updated DateTime 14 /min 157.48 cm 50150.6 g 96 % 96 % 40 /min 109 mm[Hg] 63 mm[Hg] Not Available [employer] 15:17:36 Date Recorded Oxygen saturation Oxygen saturation in Arterial blood by Pulse oximetry Body weight Respiratory rate Body height Body temperature Heart rate Systolic blood pressure Diastolic blood pressure Provider Name and Address Organization Details Last Updated DateTime 95 % 95 % 00980.1 92 g 19 /min 139.7 cm 98.1 [degF] 79 /min 160 mm[Hg] 53 mm[Hg] Not Available [employer] 18:18:07 Social History None recorded. Functional Status None recorded. Mental Status None recorded. Family History Nothing Reported. Medical History No medical history recorded. Gynecological HistoryNo gynecological history recorded. Obstetrics History GPAL:G 0 P 0 0 0 0 Past Encounters Encounter ID Performer Location Encounter Start Date Encounter Closed Date Diagnosis/Indication Diagnosis SNOMED-CT Code Diagnosis ICD10 Code Diagnosis Note [id number] ROSALIO MCARTHUR MD Main - [address] [phone] 10/07/2024 13:57:18 10/30/2024 16:31:13 Acute urinary tract infection 536333096 N39.0 [id number] Charlotte Cao MD Main - [address] [address] 10/08/2024 15:17:33 10/08/2024 23:30:26 Altered mental status 386153747 R41.82 posible urosepsis patient is borderline hypotensiv e, clammy,, she is not hypoglycem ic. EKG reveals sinus bradycardi a at a rate of 48/there is a TN visible but the EKG did not capture [...] to compare it to/explain ed to family [id number] Kyung Posadas MD Main - [facility] [address] [place] [phone] 11/23/2024 18:17:59 11/23/2024 21:58:18 Recurrent urinary tract infection [id number] N39.0 Urinary symptoms 0529154 08 R39.9 Health Concerns Section Related Observation LastModified by Organization Detai ls LastModified Time None Recorded Concern Status LastModified by Organization Details LastModified Time None Recorded Advance Directives Directive None Recorded Payers Insurance Date Sequence Insurance Name Policy Number Policy Monzon Covered Member ID Monzon Member ID Guarantor Name 11/23/2024 1 [facility] - DOS ON OR AFTER 2022 - DUAL ELIGIBLE - S[employer]IOR [employer]IV[employer] OPTIONS AND ONE CARE (MEDICARE REPLACEMENT/ADV ANTAGE - HMO) Victorina Mike [id number] Victorina Mike Notes Date Note Type Note [...] at 10/07/2024 - : Allergies Reviewed at 10/07/2024 - : Comments: Management Lecturer verified the Pt.'s name//address and phone number. [...] the counter medication - Wellness check requested. Cannery Tender Engineer Organization Information for José Miguel Romeor [employer] Legal Name: [facility] Address: [address] [place] [address], [place] [address], District Customs Director: Juan Wilson MD CLIA No.: [id number] Cannery Tender Engineer POC Test Results from José Miguel Romero [...] .................... .................... .................... .................... .................... .................... . Cannery Tender Engineer Note From José Miguel Romero: This visit [...] questions and are agreeable to this plan. [facility] Lab Orders: urinalysis, dipstick: Performed BMP, serum or plasma: Performed culture, urine: Performed [facility] Medication Orders: ceftriaxone 1 gram solution for injection: Administered sodium chloride 0.9 % intravenous solution: Administered .................... .................... .................... .................... .................... .................... .................... . [facility] Consulted: Rosalio Mcarthur .................... .................... .................... .................... .................... .................... .................... . Disposition: Fulfilled ROSALIO MCARTHUR MD [address] [place] [address],[address], [place], [phone], [employer] 10/07/2024 14:53:49 10/08/2024 text/html CRC Nurse Triage [...] 2PMH Reviewed at 10/08/2024:56Allergies Reviewed at 10/08/2024:56Comments: Management Lecturer verified the name//address and phone number. Son [...] s/s and seek emergency treatment if need Cannery Tender Engineer Organization Information for Elma Mensah Legal Name: [employer]. Address: [address] [place] [address], District Customs Director: Morro Kwon MD CLIA No.: [id number] Cannery Tender Engineer POC Test Results from Elma Mensah EKG (15:22:55) EKG test performed. Attachments uploaded as part of this test result can be found under Documents section. Blood Glucose Measurement (15:22:57) Blood Glucose: 220 mg/dL .................... .................... .................... .................... .................... .................... .................... . Cannery Tender Engineer Note From Elma Mensah: SHELLEY makes pt [...] she is not bleeding anywhere. Pt is Azeri-speaking only and family is present and on the phone to provide hx and translation. Family tells [facility] the pt was seen by [facility] yesterday and dx w/ a UTI, a [...] more profound to the family. Son tells [facility] She just isn't herself! Pt offers no complaints to [facility]. She denies cp, sob, n/v/d, abd pain. She is intermittently somnolent during the visit and exam, often closing her eyes for several minutes. She is able to follow commands well. Daughter tells [facility] the swelling in her feet and LEs seems to be a little bit worse over the past couple days. [facility] obtains vital signs and pt is assessed. [...] touch. Pt continues to be sleepy . [facility] contacts [facility] and discusses the above. Out of concern for urosepsis, [facility] and [facility] feel pt should be transported to the hospital for further evaluation and care. Family is amendable to the plan. [facility] orders FSBG, a 12-lead EKG, and 500mls NS fluid bolus. Finger stick and EKG are obtained. A 20ga IV is established in the L AC and 500mls NS are administered. [facility] calls 911 and pt is transported to [facility] by [facility]. [facility] is clear. Report completed by NISHA Mensah [id number]. [facility] Lab Orders: glucose, fingerstick, blood: Performed [facility] Medication Orders: sodium chloride 0.9 % intravenous solution: Administered .................... .................... .................... .................... .................... .................... .................... . [facility] Consulted: Charlotte Cao .................... .................... .................... .................... [...] growing out gram-negative rods. Charlotte Cao MD [address] [place] [address],[address], [place], [phone], [employer] 10/08/2024 17:39:10 11/23/2024 text/html CRC Nurse Triage Notes (Sirisha Segovia): Reason For Request: Patient states it rocha when she urinates. possible UTI. Patient Reports: Painful urination; Painful urination with or without fever Denies: Unable to void greater than 5 hours Erection that will not go away after 2 hours Fall or trauma that results in urinary incontinence in the setting of pain Fall or injury that results in incontinence in the absence of pain Lower back pain either unilateral or bilateral, unable to void, painful urination -hematuria Frequent and increased urination with flank pain Inability to fully empty bladder Chief Complaints: Urinary Symptoms PMH: Hypertension, Chronic Pain, Diabetes Mellitus Type 2 PMH Reviewed at 11/23/2024 Allergies Reviewed at 11/23/2024 Comments: 79 y.o female complains of Urinary Symptoms Pt son calling for UTI symptoms that started today. She has had a past history of UTI's. She has been admitted in the hospital in the past for kidney stones and had a cath in place that was removed. She has burning at the end of urination. She denies any abd or back pain. The urine is clear unsure about odor. She denies any fever/ chills/nausea/ vomiting I provided information on the mobile health provider response time and advised the patient and/or caregiver to monitor reported signs and symptoms. I discussed the warning signs of when to seek emergency care. Cannery Tender Engineer Organization Information for [employer] Legal Name: [facility] Transportation Address: [address] [place] [address], [place] [address], District Customs Director: Juan Wilson MD CLIA No.: [id number] Cannery Tender Engineer POC Test Results from [employer] Urine Dipstick (18:09:50) Urine leukocytes: 4+ ROSITA Urine nitrites: + NIT Urine urobilinogen: 0.2 URO Urine protein: 15 PRO Urine pH: 5.0 pH Urine blood: 3+ BLO Urine specific gravity: 1.01 SG Urine ketones: - KET Urine bilirubin: - KELLI Urine glucose: 3+ GLU Attachments uploaded as part of this test result can be found under Documents section. Blood Glucose Measurement (18:14:39) Blood Glucose: 146 mg/dL Attachments uploaded as part of this test result can be found under Documents section. epoc (18:42:04) pH: 7.466 pH units pCO2: 39.3 mmHg pO2: 38.4 mmHg Na: 145 mmol/L K: 3.7 mmol/L iCa: 1.12 mmol/L Cl: 104 mmol/L TCO2: 27.3 mEq/L Hct: 38 % Hb: 13.0 g/dL Glu: 116 mg/dL Lac: 0.97 mmol/L Cr: 1.16 mg/dL BUN: 12.5 mg/dL A mmol/L HCO3: 28.3 mmol/L Attachments uploaded as part of this test result can be found under Documents section. .................... .................... .................... .................... .................... .................... .................... . Cannery Tender Engineer Note From Og Riddle: Pt chief complaint today of burning sensation upon ending urination as well as lower back pain, pt is noted to have a history of urinary tract infections as well as kidney stones. Pt states that all signs and symptoms began to occur approx 4 days prior to ,on arrival on scene today. Pt notes not feeling febrile, and that her urine output has not increased and or decrease, no foul odor noted in her urine as well. Pt states that her last confirmed uti was 2 month prior where she needed to be hospitalized for Iv antibiotic administration. Pt is unaware of the last antibiotic that was used for her. Pt today is looking to have a general assessment performed with any possible interventions. Pt today denies any cp. sob, NVD as well as dizziness and blurred vision. Pt allergies are noted in appropriate PCR tab. Nonneural focal exam, afebrile, vitals are noted to be WNL for the pt. Lungs reported as clear bilaterally on auscultation. Benign abdominal assesment, no lower extremity edema noted. Pt is able to ambulate fully with the use of a walker at baseline. POC urine test shows positivity for leukocytes, nitrates and blood. POC blood work noted. Pt is CAOX4 with a GCS of 15. 22 gauge iv placed in right ac for medication administration. [facility] Kyung Posadas consulted, Pt is given 1 gram of ceftriaxone through the ac iv in a 100ml NS bag. Pt is also sent a prescription to her local Pharmacy for antibiotics. Pt is (instructed to contact her pcp or [facility] for follow up as necessary. Pt and family educated on red flag S&S and told to contact emergency services if any present. [facility] Lab Orders: urinalysis, dipstick: Performed BMP, serum or plasma: Performed culture, urine: Performed urinalysis, dipstick: Performed .................... .................... .................... .................... .................... .................... .................... . [facility] Consulted: Kyung Posadas .................... .................... .................... .................... .................... .................... .................... . Disposition: Fulfilled Kyung Posadas MD [address] [place] [address],[address], [place], [phone], HERMES ALATORRE 11/23/2024 21:33:01 OBGyn Episode No OBEpisode recorded.
== END 2025-01-09 12:07 | disposition home or self-care (01) ==
LOC: HO.MAMMO 12:06
PROVIDERS: PCP Internal Medicine Geriatric Medicine; Visit Provider Internal Medicine Geriatric Medicine
DX: Z12.31 Encounter for screening mammogram for malignant neoplasm of breast (principal)
CPT/HCPCS: 77063; 77067

== ENCOUNTER → 2025-01-09 12:30 | Outpatient (BNV) | payer OTHER, SELFPAY | PROVIDERS: PCP Internal Medicine Geriatric Medicine; Visit Provider Internal Medicine | DX: Z12.31 Encounter for screening mammogram for malignant neoplasm of breast (principal) | CPT/HCPCS: 77063; 77067 ==

== ENCOUNTER 2025-01-15 12:43 | Emergency (ER) | payer OTHER, SELFPAY ==
--- OUTSIDE RECORDS SUMMARY | 2024-08-13 09:00 | XMS_ITS | Continuity of Care Document ---
Author Organization [facility] Address [address] [place] [address] Phone Care Team Providers Care Central Processing Tech Name Role Phone MD LEYLA Schreiber, Julia [...] Provider Providers Copied on Encounter [facility], [address], [place], [place], [id number], [place] tel:[phone] [facility] blurry vision (chief complaint) Combined forms of age-related cataract, bilateralDry eye syndrome of bilateral lacrimal glandsOpen angle with borderline findings, high risk, bilateral MD Julia Kitchen. [address] [facility], [place], [place], [address] , [place]. tel: [phone] Referring Provider: Del Camp MD, [facility] [address] , [place], [address]. tel:[phone] Family History Family Member Type Diagnosis Age At Onset No Information Payers Payer name Insurance type Covered republican ID randy goff(s) [facility] [id number] Social History Type Description Quantity Date Captured [...] For Referral Reason For Referral No Information Plan Of Treatment Date Type Action Status Appointment Victorina Mike BOOKED Appointment Victorina Mike BOOKED History Of Present Illness Encounter Date Complaint [...]
--- NOTE | 2025-01-15 | ECG_ITS ---
Test Reason : CHEST PAIN Blood Pressure : */* mmHG Vent. Rate : 70 BPM Atrial Rate : 70 BPM P-R Int : 154 ms QRS Dur : 84 ms QT Int : 430 ms P-R-T Axes : 42 -7 -4 degrees QTcB Int : 464 ms Normal sinus rhythm Minimal voltage criteria for LVH, may be normal variant ( R in aVL ) Nonspecific ST and T wave abnormality Abnormal ECG When compared with ECG of 13-Oct-2024 20:22, T wave inversion less evident in Inferior leads T wave inversion no longer evident in Anterolateral leads QT has lengthened Referred By: Generic ED Physician Electronically Signed By: Prem dAkins
--- NOTE | ~2025-01-15 | XR_ITS ---
EXAMINATION: XR CHEST CLINICAL INFORMATION: Chest pain COMPARISON: October 08, 2024. TECHNIQUE: Frontal view of the chest was obtained. FINDINGS: Pulmonary reticular pattern. Prominence of the interstitial markings in the perihilar regions and peripherally. No consolidation. No gross pleural effusion or pneumothorax. Cardiomediastinal silhouette size is prominent. Multilevel thoracic spondylosis. XR/XR chest 1V IMPRESSION: Mild interstitial lung edema in the correct clinical settings. Cardiomegaly versus pericardial effusion. Electronically signed by: Yair Hayden MD 01/15/2025 02:00 PM EDT
[2025-01-15 13:07] VITALS: BP 164/56; PULSE 72; RESP 18; TEMP 36.8; O2SAT 96; BMI 31.1
--- NOTE | 2025-01-15 13:10 | ED.CHESTPAIN ---
HPI - Chest Pain General Chief Complaint: Chest Pain Stated Complaint: chest pain Time Seen by Provider: 01/15/25 15:44 Source: patient, family, RN notes reviewed, old records reviewed and diplomatic interpreter Mode of arrival: ambulatory Limitations: language barrier History of Present Illness ED Provider: César HPI narrative: 79-year-old female with a past medical history significant for gastroparesis, congestive heart failure, hyperlipidemia, GERD, asthma, hypertension presents for evaluation of high blood pressure. Patient's family checked her blood pressure every single day, once per day. The patient's blood pressure is usually around 140/80. Yesterday the patient's blood pressure was slightly elevated to 167/78 This morning the patient had a brief episode of chest tightness which has since resolved after a few minutes. She has been compliant with all of her medications. She currently feels at her baseline The patient's family called the primary doctor to discuss the elevated blood pressure reading and was told to bring the patient is with the ER. The patient denies any fevers, chills, shortness of breath, leg swelling No other complaints or concerns at this time Related Data Home Medications ?Medication ?Instructions ?Recorded ?Confirmed oxybutynin chloride 5 mg tablet 5 mg PO BID 05/15/20 01/17/25 cholecalciferol (vitamin D3) 25 1 tab PO DAILY 03/24/21 01/17/25 mcg (1,000 unit) tablet fluticasone propionate 50 1 - 2 spray intranasal DAILY PRN 03/24/21 01/17/25 mcg/actuation nasal Nasal Congestion spray,suspension cyanocobalamin (vitamin B-12) 1,000 mcg IM Q28D 11/02/22 01/17/25 1,000 mcg/mL injection solution cetirizine 10 mg tablet 10 mg PO DAILY 07/17/24 01/17/25 amlodipine 10 mg tablet 10 mg PO BEDTIME 07/24/24 01/17/25 calcium carbonate 600 mg PO DAILY 10/09/24 01/17/25 docusate sodium 100 mg capsule 100 mg PO DAILY 10/09/24 01/17/25 (Stool Softener) empagliflozin 10 mg tablet 10 mg PO DAILY 10/09/24 01/17/25 (Jardiance) ferrous gluconate 324 mg (38 mg 324 mg PO DAILY 10/09/24 01/17/25 iron) tablet mirtazapine 15 mg tablet 22.5 mg PO BEDTIME 10/09/24 01/17/25 omeprazole 40 mg capsule,delayed 40 mg PO BID@0630,1630 10/09/24 01/17/25 release Previous Rx's ?Medication ?Instructions ?Recorded walker #1 ea 03/02/21 acetaminophen 325 mg tablet 650 mg (2 x 325 mg) PO Q6H PRN 05/29/21 Pain, Mild (Pain Scale 1-3) 30 days #240 tabs hydrochlorothiazide 12.5 mg tablet 12.5 mg PO DAILY #60 tabs 11/16/24 linaclotide 145 mcg capsule 145 mcg PO QAM #30 caps 11/16/24 (Linzess) apixaban 5 mg tablet (Eliquis) 5 mg PO BID #180 tabs 11/23/24 losartan 25 mg tablet 25 mg PO BID #60 tabs 11/29/24 metoclopramide HCl 10 mg tablet 10 mg PO QIDACHS #120 tabs 12/05/24 (Reglan) atorvastatin 40 mg tablet 40 mg PO BEDTIME #90 tabs 12/17/24 blood pressure monitor #1 ea 12/24/24 furosemide 40 mg tablet 40 mg PO QAM #90 tabs 01/15/25 Allergies Allergy/AdvReac Type Severity Reaction Status Date / Time Penicillins (PENICILLINS) Allergy Intermediate NAUSEA/HIVE Verified 01/17/25 13:15 S metformin AdvReac Unknown Diarrhea Verified 01/17/25 13:15 Review of Systems Constitutional: Constitutional: Denies body ache(s), Denies chills, Denies fever(s) and Denies headache(s) Eyes: Eyes: Denies blurry vision ENT: Denies dizziness and Denies headache(s) Cardiovascular: Cardiovascular: Reports chest pain, Denies chest pain with activity and Denies dyspnea on exertion Respiratory: Respiratory: Denies cough and Denies dyspnea on exertion Gastrointestinal: Gastrointestinal: Denies abdominal pain, Denies nausea and Denies vomiting Musculoskeletal: Musculoskeletal: Denies back pain Integumentary/Breasts: Skin/Breast: Denies rash Neurologic: Denies dizziness and Denies headache(s) Psychiatric: Psychiatric: Denies anxiety PMFSH Past Medical History Medical History Chronic diastolic heart failure Hydronephrosis, right Ureteral stone Dementia Calculus of proximal right ureter CKD (chronic kidney disease) Renal insufficiency Epigastric pain Tubular adenoma of colon Preop cardiovascular exam Urinary urgency Pneumonia Hospital discharge follow-up Asthma MARIA R (acute kidney injury) GERD (gastroesophageal reflux disease) Diabetes Osteoarthritis Hyperlipidemia Hypertension JOVANNI (obstructive sleep apnea) Surgical History Hx of cataract surgery Status post total knee replacement, right History of arthroplasty of right knee Hx of colonoscopy H/O: hysterectomy History of salpingoophorectomy History of tonsillectomy Family History Family History Father HTN (hypertension) Mother HTN (hypertension) CVD (cardiovascular disease) Daughter Bone cancer Father Cancer Social History Social History Household Members: Family Housing: House Are you a primary care consultant to a significant other at home: No Do you presently have visiting nurse or other home services: No Unable to assess alcohol history related to: Unknown Alcohol intake: never Comment: family at bedside Patient Tobacco Use Status: Never used Tobacco e-Cigarette/Vaping Use: Never Used Second Hand Smoke Exposure: No service: No Current occupational status: retired Current occupation: Right handed Physical Exam Vital Signs: Vital Signs: Last Vital Signs Temp 98.0 F 01/15/25 17:51 Pulse 66 01/15/25 17:51 Resp 18 01/15/25 17:51 BP 149/50 H 01/15/25 17:51 Pulse Ox 98 01/15/25 17:51 O2 Del Method Room Air 01/15/25 17:51 BMI result Body Mass Index 31.1 Const: General: healthy appearing, comfortable, no acute distress, alert and awake Nutritional Appearance: well nourished Orientation/consciousness: patient oriented x3 HEENT: Head: Yes normocephalic and Yes atraumatic Eyes: Eyelids: Yes eyelids normal Conjunctivae: conjunctivae normal Sclerae: sclerae normal Corneas: corneas normal Pupils: Equal, round and reactive pupils present EOM: EOMs intact bilaterally Neck: Neck: Yes full ROM Resp: Effort & Inspection: normal respiratory effort, able to speak in complete sentences, no audible wheezes and not labored Auscultation: clear to auscultation bilaterally Cardio: Rate: regular rate Rhythm: regular rhythm GI: Inspection: No distended Palpation (GI): Soft to palpation, not firm, nontender, no guarding and not rigid Skin: General skin exam: no rashes or lesions noted and elasticity normal Neuro: General: patient oriented x3 Cranial nerves: Yes Equal, round and reactive pupils present and Yes Bilaterally intact EOM present Cognition (Neuro): normal cognition Course Course Course Narrative: RME: 79-year-old female presents to the ED with chest pain that resolved. Patient states slightly elevated blood pressure. Patient presently denies any chest pain shortness of breath headache dizziness nausea vomiting life-threatening or pitting edema. Patient vital signs slept hypertensive. EKG labs chest x-ray ordered Medical Decision Making Medical Decision Making MDM Narrative: 79-year-old female with a past medical history as above presents for evaluation of elevated blood pressure and an episode of chest pain. The patient is currently asymptomatic, denies any chest pain. Her initial labs are reassuring, negative troponin, her EKG is normal sinus rhythm with a rate of [address] segment elevation [place]. the patient actually has T-wave inversions that are less evident today in the lateral leads than they were in October of 2024. Plan for repeat troponin to rule out ACS. She has no shortness of breath or leg swelling to suggest overt CHF. The patient is on amlodipine 2.5 mg, losartan 25 mg and HCTZ 12.5 mg. I encouraged the family to continue checking the patient's blood pressure once per day and discussing with the primary doctor next week, if her blood pressure remains elevated she may consider increasing the amlodipine Differential Diagnosis Differential Diagnoses: The differential diagnosis associated with the presentation includes Hypertension Elevated blood pressure ACS less likely Chest pain Admission/Observation Consideration of admission/observation: Escalation of care including admission/observation considered Lab Data MDM Lab Attestation statement: I reviewed the patient's lab results. No leukocytosis. The patient has a chronic mild anemia butter hemoglobin hematocrit are actually slightly increased compared to her baseline around 9. Chemistries without significant abnormalities warranting. The patient's CO2 is elevated to 31 which could be due to obstructive sleep apnea. Otherwise no significant chemistry abnormalities warranting intervention. Initial troponin negative. Repeat pending 01/15/25 13:20 01/15/25 13:20 Labs: Lab Results 01/15/25 01/15/25 Range/Units 13:20 16:42 WBC 6.8 (4.8-10.8) X10*3/uL RBC 4.15 L (4.20-5.50) X10*6/uL Hgb 10.4 L (12.0-16.0) g/dl Hct 33.0 L (37.0-47.0) % MCV 79.5 L (80.0-98.0) fL MCH 25.1 L (27.0-33.0) pg MCHC 31.5 (31.0-35.0) g/dl RDW 17.5 H (11.0-16.0) % Plt Count 292 D (160-400) X10*3/uL MPV 9.7 (9.4-12.3) fL Immature Gran % (Auto) 0.3 (0.0-0.4) % Neut % (Auto) 60.2 (45-73) % Lymph % (Auto) 27.9 (20-40) % [place] % (Auto) 8.6 (2-11) % Eos % (Auto) 2.7 (0-4) % Baso % (Auto) 0.3 (0-2) % Lymph # (Auto) 1.9 (1.2-4.9) X10*3/uL [place] # (Auto) 0.6 (0.1-1.2) X10*3/uL Eos # (Auto) 0.2 (0.0-0.4) X10*3/uL Baso # (Auto) 0.0 (0.0-0.2) X10*3/uL Abs Immat Gran (auto) 0.02 (0.00-0.03) X10*3/uL Absolute Neuts (auto) 4.1 (2.0-8.3) x10*3/uL Absolute Nucleated RBC 0.000 (0.0-0.012) X10*3/uL Nucleated RBC % (auto) 0.0 (0.0-0.2) /100WBC PT 15.4 H D (10.9-12.4) SEC INR 1.3 H (0.9-1.1) APTT 54.1 H (26.0-36.8) SEC Sodium 143 (135-145) mmol/L Potassium 3.4 (3.3-5.1) mmol/L Chloride 105 (96-108) mmol/L Carbon Dioxide 31 H (22-29) mmol/L Anion Gap 10 L (12-20) BUN 21 H (9-16) mg/dL Creatinine 1.21 (0.5-1.4) mg/dL Estim Creat Clear Calc 37.8 Estimated GFR 43 Random Glucose 105 (60-115) mg/dL Calcium 9.8 (8.4-10.2) mg/dL Total Bilirubin 0.3 (0.0-1.0) mg/dL AST 20 (5-31) U/L ALT 12 (0-31) U/L Alkaline Phosphatase 151 H (39-117) U/L Troponin I High Sens 3.8 4.2 (<3.5-17.0) ng/L B-Natriuretic Peptide 12 (<100) pg/mL Total Protein 7.4 (6.5-8.0) g/dL Albumin 4.0 (3.5-5.0) g/dL Independent Interpretation I performed an independent interpretation of an: EKG Interpretation: As above Discharge Plan Discharge Clinical Impression: Hypertension, Chest pain Patient Disposition: Home, Self-Care Instructions: Chest Pain (ED) Additional Instructions: Repeat troponin is flat. The patient remains asymptomatic, discussed with the patient and family she should continue checking her blood pressure once per day. You should follow up with her primary doctor and if your blood pressure remains elevated, you may consider increasing the dose of 1 of your medications Prescriptions: No Action (DME) thelma Bargerc See Rx Instructions .ROUTE .MEDSUPPLY Qty: 1 0RF Rx Instructions: Folding front wheeled walker Pramods 145 mcg capsule 145 mcg PO QAM Qty: 30 3RF hydrochlorothiazide 12.5 mg tablet 12.5 mg PO DAILY Qty: 60 1RF Eliquis 5 mg tablet 5 mg PO BID Qty: 180 3RF losartan 25 mg tablet 25 mg PO BID Qty: 60 3RF metoclopramide HCl [Reglan] 10 mg tablet 10 mg PO QIDACHS Qty: 120 6RF atorvastatin 40 mg tablet 40 mg PO BEDTIME Qty: 90 3RF (DME) blood pressure monitor Kit See Rx Instructions .Route Qty: 1 0RF Rx Instructions: As directed furosemide 40 mg tablet 40 mg PO QAM Qty: 90 3RF fluticasone propionate 50 mcg/actuation spray,suspension 1 - 2 spray intranasal DAILY PRN (Reason: Nasal Congestion) cholecalciferol (vitamin D3) 25 mcg (1,000 unit) tablet 1 tab PO DAILY acetaminophen 325 mg Tablet 650 mg PO Q6H PRN (Reason: Pain, Mild (Pain Scale 1-3)) 30 Days Qty: 240 0RF cyanocobalamin (vitamin B-12) 1,000 mcg/mL solution 1,000 mcg IM Q28D amlodipine 10 mg tablet 10 mg PO BEDTIME calcium carbonate 600 mg calcium (1,500 mg) tablet 600 mg PO DAILY docusate sodium [Stool Softener] 100 mg capsule 100 mg PO DAILY mirtazapine 15 mg tablet 22.5 mg PO BEDTIME ferrous gluconate 324 mg (38 mg iron) tablet 324 mg PO DAILY Jardiance 10 mg tablet 10 mg PO DAILY omeprazole 40 mg capsule,delayed release(DR/EC) 40 mg PO BID@0630,1630 oxybutynin chloride 5 mg tablet 5 mg PO BID cetirizine 10 mg tablet 10 mg PO DAILY Interventions: ED Discharge Assessment Last Done: 01/15/25 17:51 Discharge Date/Time: 01/15/25 17:53 Print Language: Montenegrin
[2025-01-15 13:26] LABS: MANUAL DIFF FLAG NO
[2025-01-15 13:27] LABS: Hematocrit 33.0 % (37.0-47.0); Hemoglobin 10.4 g/dl (12.0-16.0); Imm Gran Abs Auto 0.02 X10*3/uL (0.00-0.03); Imm Gran Pct Auto 0.3 % (0.0-0.4); Lymphocytes Absolute Auto 1.9 X10*3/uL (1.2-4.9); Mean Corpuscular HGB Conc 31.5 g/dl (31.0-35.0); Mean Corpuscular Hemoglobin 25.1 pg (27.0-33.0); Mean Corpuscular Volume 79.5 fL (80.0-98.0); NRBC Abs Auto 0.000 X10*3/uL (0.0-0.012); NRBC Pct Auto 0.0 /100WBC (0.0-0.2); Platelet Count 292 X10*3/uL (160-400); Red Blood Count 4.15 X10*6/uL (4.20-5.50); White Blood Count 6.8 X10*3/uL (4.8-10.8)
[2025-01-15 13:33] LABS: INTERNATIONAL NORM RATIO 1.3 (0.9-1.1); Prothrombin Time 15.4 SEC (10.9-12.4)
[2025-01-15 13:35] LABS: Partial Thromboplastin Time 54.1 SEC (26.0-36.8)
[2025-01-15 13:45] LABS: Alanine Aminotransferase 12 U/L (0-31); Albumin Level 4.0 g/dL (3.5-5.0); Alkaline Phosphatase 151 U/L (39-117); Anion Gap 10 (12-20); Aspartate Amino Transferase 20 U/L (5-31); Blood Urea Nitrogen 21 mg/dL (9-16); Calcium 9.8 mg/dL (8.4-10.2); Carbon Dioxide 31 mmol/L (22-29); Chloride 105 mmol/L (96-108); Creatinine Clr Calc Pharmacy 37.8; Estimated Glomerular Filt Rate 43; Potassium 3.4 mmol/L (3.3-5.1); Sodium 143 mmol/L (135-145); Total Protein 7.4 g/dL (6.5-8.0)
[2025-01-15 13:49] LABS: B Type Natriuretic Peptide 12 pg/mL (<100)
[2025-01-15 13:52] LABS: Troponin-I High Sensitivity 3.8 ng/L (<3.5-17.0)
[2025-01-15 16:02] VITALS: BP 170/69; PULSE 69; RESP 18; O2SAT 96
--- NOTE | 2025-01-15 16:06 | PC.NURSE ---
Patient is a 78F with a PMH chronic idiopathic constipation, obstructive sleep apnea, barrets and eosinophilic esophagitis, hyperlipidemia, unspecified asthma, chronic diastolic CHF, paroxysmal atrial fibrillation, sent in for hyperkalemia. Patient was admitted to [facility] for 07/24/24-08/02/24 for diverticulitis and hyperkalemia with MARIA R. Patient alert and oriented primarily irish speaking. Interpretor utilized. Respirations even and non-labored. Abdomen large soft, non-tender with positive bowel sounds. Positive pedal pulses with LE edema.
--- OUTSIDE RECORDS SUMMARY | 2025-01-15 16:15 | XMS_ITS | Encounter Summary ---
Author Organization [employer] Address [address] [place] [address] Care Team Providers Care Alley Worker Name Role Phone Name, Balta MAYER Primary Care Provider [phone] Encounter Details Date Type Department Care Team (Late st Contact Info) Description 07/20/2024 Community Care Management [facility] [address] [place] [address] [employer] Link, Physician, Social History Tobacco Use [...] Description 01/21/2025 10:00 AM EDT Office Visit [facility] [address] [place] [id number] NameBalta MD [address] [place] [address] 01/21/2025 1:00 PM EDT Clinical Support [facility] [address] [place] [address] 06/19/2025 10:00 AM EST Office Visit [facility] [address] [place] [address] Harry, Esther, OD [address] [place] [address] documented as of this encounter Visit Diagnoses Not on filedocumented in this encounter Additional Health Concerns Assessment Noted Time PHQ-9 Depression Total Score: 0 09/20/19 24 1:15 PM EDT documented as of this encounter Care Teams Alley Worker Relationship Specialty Start Date End Date NameBalta MD [address] [place] [id number] PCP - General Internal Medicine 06/14/22 [facility] 08/05/24 documented as of this encounter
--- OUTSIDE RECORDS SUMMARY | 2025-01-15 16:15 | XMS_ITS | Data Portability ---
Author Organization [employer] [facility], [facility] Address [address] [place] [address] Care Team Providers Care Metal Fabricating Inspector Name Role Phone NAME, JOSE Primary Care Provider [phone] HIM CHRIS OTHER Assessment Encounter Date Assessment Date Assessment LastModified by Organization Details LastModified Time 10/07/2024 10/07/2024 Mrs. Amado degroot was evaluated for confusion and urinary symptoms. On assessment she is afebrile, mildly bradycardic and hypertensive. Per relays draftsperson assessment she is independently ambulatory with a [...] Assessment and Plan as documented by the Tube Operator. We discussed the diagnostic uncertainty of home [...] Assessment and Plan as documented by the Tube Operator. We discussed the diagnostic uncertainty of home [...] agreeable they are requesting she go to [facility]. EMS initiated by [facility] provider, I called report to chargemaster analystJaymie at [facility] ER [email or web address] Not available 10/08/2024 17:38:59 11/23/2024 11/23/2024 service [...] Lab urinalysis, dipstick 2024 025 [facility], [address] [place] [address], [place], [phone] 20:08:02 BMP, serum or plasma 2024 025 [facility], [address] [place] [address], [phone] 20:08:02 culture, urine 2024 [place] [facility], [address], [address], [place], [address], 20:14:38 urinalysis, dipstick 2024 025 [facility], [address] [place] [address], [phone] 20:08:03 glucose, fingerstick , blood 2024 [email or web address] [facility], [address] [place] [address], [phone] 15:20:09 urinalysis, dipstick 2024 [facility], [address] [place] [address], [phone] 19:19:04 BMP, serum or plasma 2024 [facility], [address] [place] [address], [phone] 19:19:23 culture, urine 2024 [place] [facility] (Centralized Electronic Ordering - All Locations), Patient Can Go To The Location Of Their Choice, [id number] 12:05:39 Referral None recorded. Procedures None recorded. Surgeries None recorded. Imaging electrocard iogram 2024 [facility], [address] [place] [address], [phone] 00:24:18 Medication Orders cefpodoxime 200 mg tablet 2024 025 [facility]/Pharmacy #[id number], [address] [facility], [place], [address], 19:21:07 sodium chloride 0.9 % intravenous solution 2024 025 [email or web address] 0 [facility]/Pharmacy #[id number], [address] [place], [address], 15:21:50 cefpodoxime 200 mg tablet 2024 025 CANDACE [facility]/Pharmacy #[id number], [address] [place], [address], 18:19:44 ceftriaxone 1 gram solution for injection 2024 025 [email or web address] [facility]/Pharmacy #[id number], [address] [place], [address], 14:11:56 sodium chloride 0.9 % intravenous solution 2024 025 [email or web address] [facility]/Pharmacy #[id number], [address] [place], [address], 14:12:07 Patient TargetsNo targets recorded. Patient InstructionsNo instructions recorded. Reason for Referral None Reported. Results Created Date Observation Date Name Description Value Unit Range Abnormal Flag Note LastModifiedBy Organization Detail LastModifiedTime 10/08/1910/09/2024 URINE CULTU RE,CO MPREH ENSIV E urine culture,comp rehensive Final report abnormal Not Available [facility] ([facility]) [address] [place], [address], 10/09/2024 14:06:17 10/08/19 25 10/09/2024 URINE CULTU RE,CO MPREH ENSIV E result 1 Klebsi abhi oxytoc a abnormal Great er than 100,0 00 colon y formi ng units per mL Not Available [facility] ([facility]) [address] [place], [address], 10/09/2024 14:06:17 10/08/19 25 10/09/2024 URINE CULTU RE,CO MPREH ENSIV E result 2 Not applic able Not Available [facility] ([facility]) [address] [place], [address], 10/09/2024 14:06:17 10/08/19 25 10/09/2024 URINE CULTU [...] thopr im/Foster lfa S Not Available [facility] ([facility]) [address] [facility], [place], [address], 10/09/2024 14:06:17 10/09/19 25 10/08/2024 gluco se, finge rstic k, blood Blood Glucose: mg/dl 220 Not Available [facility] [address] [place] [address], [phone] 10/08/2024 15:18:52 11/24/19 25 11/29/2024 CULTU RE, URINE , ROUTI NE culture, urine, routine SEE NOTE abnormal CULTU RE, URINE , ROUTI NE Micro Numbe r: [id number] Test Statu s: Final Speci men [...] lexin and lorac arbef . Not Available [facility] [address], [place], [address], 11/29/2024 10:07:23 10/09/19 25 10/08/2024 elect sahbbir diogr am No observ ation record ed. [email or web address] Main - [facility] [address] [place] [address], [phone] 10/08/2024 18:13:27 Result Notes None recorded. Medical Equipment None Reported. Allergies Allergen ID Allergen Name Allergen Category Reaction Reaction Severity Criticality Documentation Date Start Date Code Code System Note Provider Name and Address Organization Details Recorded Time 11949 Product containin g penicilli n (product) medicatio n Not available Not available Not available 10/07/2024 59786 8001 SNOMED Not Available [facility] - production [...] in Arterial blood by Pulse oximetry Systolic And Diastolic Provider Name and Address Organization Details Last Updated DateTime 50 /min 14 /min 98.9 [degF] 97 % 97 % 134/76 mm[Hg] Not Available [employer] 13:57:20 Date Recorded Respiratory rate Body height Body weight Oxygen saturation Oxygen saturation in Arterial blood by Pulse oximetry Heart rate Systolic And Diastolic Provider Name and Address Organization Details Last Updated DateTime 14 /min 157.48 cm 14879.6 g 96 % 96 % 40 /min 109/63 mm[Hg] Not Available [employer] 15:17:36 Date Recorded Oxygen saturation Oxygen saturation in Arterial blood by Pulse oximetry Body weight Respiratory rate Body height Body temperature Heart rate Systolic And Diastolic Provider Name and Address Organization Details Last Updated DateTime 95 % 95 % 51794.1 92 g 19 /min 139.7 cm 98.1 [degF] 79 /min 160/53 mm[Hg] Not Available [employer] 18:18:07 Social History None recorded. Functional Status None recorded. Mental Status None recorded. Family History Nothing Reported. Medical History No medical history recorded. Gynecological HistoryNo gynecological history recorded. Obstetrics History GPAL:G 0 P 0 0 0 0 Past Encounters Encounter ID Performer Location Encounter Start Date Encounter Closed Date Diagnosis/Indication Diagnosis SNOMED-CT Code Diagnosis ICD10 Code Diagnosis Note [id number] ROSALIO MCARTHUR MD Main - [facility] [address] [place] [phone] 10/07/2024 13:57:18 10/30/2024 16:31:13 Acute urinary tract infection 547369222 N39.0 [id number] Charlotte Cao MD Main - [facility] [address] [place] [phone] 10/08/2024 15:17:33 10/08/2024 23:30:26 Altered mental status 322130912 R41.82 posible urosepsis patient is borderline hypotensiv [...] to compare it to/explain ed to family [id number] Kyung Posadas MD Main - [facility] [address] [place] [phone] 11/23/2024 18:17:59 11/23/2024 21:58:18 Recurrent urinary tract infection 326783596 N39.0 Urinary symptoms 4663296 08 R39.9 Health Concerns Section Related Observation LastModified by Organization Detai ls LastModified Time None Recorded Concern Status LastModified by Organization Details LastModified Time None Recorded Advance Directives Directive None Recorded Payers Insurance Date Sequence Insurance Name Policy Number Policy Monzon Covered Member ID Monzon Member ID Guarantor Name 11/23/2024 1 [facility] - DOS ON OR AFTER 2022 - DUAL ELIGIBLE - RETIREMENT OPTIONS AND ONE CARE (MEDICARE REPLACEMENT/ADV ANTAGE - HMO) Victorina Mike [id number] Victorina Mike Notes Date Note Type Note [...] Diabetes Mellitus Type 2 PMH Reviewed at 10/07/2024: Allergies Reviewed at 10/07/2024 - : Comments: Platen Builder Up verified the Pt.'s name//address and phone number. [...] the counter medication - Wellness check requested. Tube Operator Organization Information for José Miguel Romero [id number] Legal Name: [facility] [employer] Address: [address] [place] [address], [place] [address], Pomology Teacher: Juan Wilson MD CLIA No.: [id number] Tube Operator POC Test Results from José Miguel Romero [...] .................... .................... .................... .................... .................... .................... . Tube Operator Note From José Miguel Romero: This visit [...] questions and are agreeable to this plan. [facility] Lab Orders: urinalysis, dipstick: Performed BMP, serum or plasma: Performed culture, urine: Performed [facility] Medication Orders: ceftriaxone 1 gram solution for injection: Administered sodium chloride 0.9 % intravenous solution: Administered .................... .................... .................... .................... .................... .................... .................... . [facility] Consulted: Rosalio Mcarthur .................... .................... .................... .................... .................... .................... .................... . Disposition: Fulfilled ROSALIO MCARTHUR MD [address] [place] [address],[address], [place], [phone], [employer] 10/07/2024 14:53:49 10/08/2024 text/html [facility] Nurse Triage Notes (Sirisha Segovia): Reason For [...] Type 2PMH Reviewed at 10/08/2024:56Allergies Reviewed at 10/08/2024 - :56Comments: Platen Builder Up verified the name//address and phone number. Son [...] s/s and seek emergency treatment if need Tube Operator Organization Information for Elma Mensah Legal Name: [employer]. Address: [address] [place] [address], Pomology Teacher: Morro Kwon MD [facility] No.: [id number] Tube Operator POC Test Results from Elma Mensah EKG (15:22:55) EKG test performed. Attachments uploaded as part of this test result can be found under Documents section. Blood Glucose Measurement (15:22:57) Blood Glucose: 220 mg/dL .................... .................... .................... .................... .................... .................... .................... . Tube Operator Note From Elma Mensah: SHELLEY makes pt [...] she is not bleeding anywhere. Pt is Bulgarian-speaking only and family is present and on the phone to provide hx and translation. Family tells [facility] the pt was seen by [facility] yesterday and dx w/ a UTI, [...] more profound to the family. Son tells [facility] She just isn't herself! Pt offers no complaints to [facility]. She denies cp, sob, n/v/d, abd pain. She is intermittently somnolent during the visit and exam, often closing her eyes for several minutes. She is able to follow commands well. Daughter tells [facility] the swelling in her feet and LEs seems to be a little bit worse over the past couple days. [facility] obtains vital signs and pt is [...] touch. Pt continues to be sleepy . [facility] contacts [facility] and discusses the above. Out of concern for urosepsis, [facility] and [facility] feel pt should be transported to the hospital for further evaluation and care. Family is amendable to the plan. [facility] orders FSBG, a 12-lead EKG, and 500mls NS fluid bolus. Finger stick and EKG are obtained. A 20ga IV is established in the L AC and 500mls NS are administered. [facility] calls 911 and pt is transported to [facility]. [facility] is clear. Report completed by NISHA Mensah [id number]. [facility] Lab Orders: glucose, fingerstick, blood: Performed [facility] Medication Orders: sodium chloride 0.9 % intravenous solution: Administered .................... .................... .................... .................... .................... .................... .................... . [facility] Consulted: Charlotte Cao .................... .................... .................... .................... [...] out gram-negative rods. Charlotte Cao MD [address] [facility],[address], [place], [address], [employer] 10/08/2024 17:39:10 11/23/2024 text/html [facility] Nurse Triage [...] signs of when to seek emergency care. Tube Operator Organization Information for [employer] Legal Name: [facility] Address: [address] [place] [address], [place] [address], Pomology Teacher: Juan Wilson MD CLIA No.: [id number] Tube Operator POC Test Results from [facility] Urine [...] .................... .................... .................... .................... .................... .................... . Tube Operator Note From [employer] [facility]: Pt chief complaint [...] placed in right ac for medication administration. [facility] Kyung Posadas consulted, Pt is given 1 gram of ceftriaxone through the ac iv in a 100ml NS bag. Pt is also sent a prescription to her local Pharmacy for antibiotics. Pt is (instructed to contact her pcp or [facility] for follow up as necessary. Pt and family educated on red flag S&S and told to contact emergency services if any present. [facility] Lab Orders: urinalysis, dipstick: Performed BMP, serum or plasma: Performed culture, urine: Performed urinalysis, dipstick: Performed .................... .................... .................... .................... .................... .................... .................... . [facility] Consulted: Kyung Posadas .................... .................... .................... .................... .................... .................... .................... . Disposition: Fulfilled Kyung Posadas MD [address] [place] [address],[address], [place], [phone], [facility] 11/23/2024 21:33:01 OBGyn Episode No OBEpisode recorded.
[2025-01-15 16:22] VITALS: BP 185/71; PULSE 63; RESP 18; TEMP 35.9; O2SAT 95
[2025-01-15 17:09] LABS: Troponin-I High Sensitivity 4.2 ng/L (<3.5-17.0)
[2025-01-15 17:51] VITALS: BP 149/50; PULSE 66; RESP 18; TEMP 36.7; O2SAT 98
== END 2025-01-15 17:53 | disposition home or self-care (01) ==
PROVIDERS: Physician Assistant; Physician Assistant Medical; Emergency Provider Internal Medicine; PCP Internal Medicine Geriatric Medicine
DX: R07.9 Chest pain, unspecified (principal); I10 Essential (primary) hypertension; E78.5 Hyperlipidemia, unspecified; I48.91 Unspecified atrial fibrillation; J45.909 Unspecified asthma, uncomplicated; Z79.01 Long term (current) use of anticoagulants; Z79.899 Other long term (current) drug therapy; Z79.02 Long term (current) use of antithrombotics/antiplatelets
CPT/HCPCS: 36415; 71045; 80053; 83880; 84484; 85025; 85610; 85730; 93005; 99283; 99285

== ENCOUNTER → 2025-01-15 12:48 | Outpatient (BNV) | payer OTHER, SELFPAY | PROVIDERS: Emergency Provider Internal Medicine; PCP Internal Medicine Geriatric Medicine; Visit Provider Internal Medicine Cardiovascular Disease | DX: R94.31 Abnormal electrocardiogram [ECG] [EKG] (principal); R07.9 Chest pain, unspecified | CPT/HCPCS: 93010 ==

== ENCOUNTER → 2025-01-15 13:10 | Outpatient (BNV) | payer OTHER, SELFPAY | PROVIDERS: PCP Internal Medicine Geriatric Medicine; Visit Provider Radiology Diagnostic Radiology | DX: R07.9 Chest pain, unspecified (principal) | CPT/HCPCS: 71045 ==

== ENCOUNTER 2025-01-17 12:43 | Outpatient (REF) | payer OTHER, SELFPAY | END 2025-01-17 12:44 | disposition home or self-care (01) | LOC: HO.LNP 12:43 | PROVIDERS: PCP Internal Medicine Geriatric Medicine; Visit Provider Urology | DX: N20.0 Calculus of kidney (principal); Z96.0 Presence of urogenital implants; N39.0 Urinary tract infection, site not specified | CPT/HCPCS: 52310; 81003; 87086; 87088; 87186; 99212 ==

== ENCOUNTER 2025-01-17 12:43 | Outpatient (AMB) | payer OTHER, SELFPAY ==
--- OUTSIDE RECORDS SUMMARY | 2024-08-13 09:00 | XMS_ITS | Continuity of Care Document ---
Author Organization [facility] Address [address] [place] [address] Phone Care Team Providers Care Clinical Research Nurse Name Role Phone MD LEYLA Schreiber, [...] Provider Providers Copied on Encounter [facility], [address], [place], [place], [address], [place] tel:[phone] [facility] blurry vision (chief complaint) Combined forms of age-related cataract, bilateralDry eye syndrome of bilateral lacrimal glandsOpen angle with borderline findings, high risk, bilateral MD Julia Kitchen. [address] [facility], [place], [place], [address] , [place]. tel: [phone] Referring Provider: Del Camp MD, [facility] [address] , [place], [address]. tel:[phone] Family History Family Member Type Diagnosis Age At Onset No Information Payers Payer name Insurance type Covered constitution party ID randy goff(s) [facility] CI [id number] Social History Type Description Quantity Date Captured [...]
--- NOTE | 2025-01-16 21:58 | A.OFFVIS_ITS ---
Intake Visit Reasons: cysto/stent removal Intake Note: Patient presents to office today for cystoscopy/stent removal Urology Medications: Oxybuytin, Vitamin B12 Blood thinners: none [employer] Intern[employer] Required: Yes Accompanied by: Daughter Allergies Penicillins (PENICILLINS) Allergy (Intermediate, Verified 01/17/25 13:15) NAUSEA/HIVES metformin Adverse Reaction (Unknown, Verified 01/17/25 13:15) Diarrhea Medication List - Last Reconciled 01/17/25 by Jennifer Salas MD acetaminophen 650 mg (2 x 325 mg) PO Q6H PRN 30 days amlodipine 10 mg PO BEDTIME apixaban (Eliquis) 5 mg PO BID atorvastatin 40 mg PO BEDTIME blood pressure monitor As directed calcium carbonate 600 mg PO DAILY cetirizine 10 mg PO DAILY cholecalciferol (vitamin D3) 1 tab PO DAILY cyanocobalamin (vitamin B-12) 1,000 mcg IM Q28D docusate sodium (Stool Softener) 100 mg PO DAILY empagliflozin (Jardiance) 10 mg PO DAILY ferrous gluconate 324 mg PO DAILY fluticasone propionate 50 mcg/actuation 1 - 2 sprays intranasal DAILY PRN furosemide 40 mg PO QAM hydrochlorothiazide 12.5 mg PO DAILY linaclotide (Linzess) 145 mcg PO QAM losartan 25 mg PO BID metoclopramide HCl (Reglan) 10 mg PO QIDACHS mirtazapine 22.5 mg PO BEDTIME nitrofurantoin monohyd/m-cryst 100 mg (Macrobid) 100 mg PO BID 5 days omeprazole 40 mg PO BID@0630,1630 oxybutynin chloride 5 mg PO BID walker Folding front wheeled walker [facility] Comments Details: 01/17/25--here for cysto/stent removal Ureteral stent inserted CTAP - 09/12/24-- proximal 4mm ureteral stone fu renal 11/2024, negative for stones, KUB - stent migrated distally History of Present Illness - The patient is an 79-year-old female presenting with cystoscopy and ureteral stent removal. - The patient had a ureteral stent placed on October 02 due to hydronephrosis secondary to a 4 mm renal calculus. - A follow-up renal ultrasound on November 2024 showed no renal calculi, but the stent was not visualized. - A follow-up KUB confirmed the presence of the ureteral stent. - Diet modification was discussed and a pamphlet was provided to the patient and her daughter. Results - Renal ultrasound on November 2024: Negative for renal calculi, stent not visualized, as stent had migrated distally - KUB: Confirmed presence of ureteral stent. Plan - Discussed diet modification with the patient and provide educational pamphlet. - Prescribe Macrobid 100 mg twice a day for 5 days pending urine culture results. - Schedule follow-up in 4 months with the nurse practitioner to follow patient for recurrent UTI's, monitor and manage for recurrent kidney stones PFSH Medical History Chronic diastolic heart failure Hydronephrosis, right Ureteral stone Dementia Calculus of proximal right ureter CKD (chronic kidney disease) Renal insufficiency Epigastric pain Tubular adenoma of colon Preop cardiovascular exam Urinary urgency Pneumonia Hospital discharge follow-up Asthma MARIA R (acute kidney injury) GERD (gastroesophageal reflux disease) Diabetes Osteoarthritis Hyperlipidemia Hypertension JOVANNI (obstructive sleep apnea) Surgical History Hx of cataract surgery Status post total knee replacement, right History of arthroplasty of right knee Hx of colonoscopy H/O: hysterectomy History of salpingoophorectomy History of tonsillectomy Family History Father HTN (hypertension) Mother HTN (hypertension) CVD (cardiovascular disease) Daughter Bone cancer Father Cancer Social History Household Members: Family Housing: House Are you a primary palliative care nurse to a significant other at home: No Do you presently have visiting nurse or other home services: No Unable to assess alcohol history related to: Unknown Alcohol intake: never Comment: family at bedside Patient Tobacco Use Status: Never used Tobacco e-Cigarette/Vaping Use: Never Used Second Hand Smoke Exposure: No service: No Current occupational status: retired Current occupation: Right handed Review of Systems Const All systems reviewed & are unremarkable except as noted in HPI and below Reports no additional complaints Eyes Reports no additional complaints ENT Reports no additional complaints Card Reports no additional complaints Resp Reports no additional complaints GI Reports no additional complaints Reports as per HPI Musc Reports no additional complaints Skin/Breast Reports system reviewed and no additional complaints, except as documented Neuro Reports no additional complaints Psych Reports no additional complaints Endo Reports no additional complaints Thanh/Lymph Reports no additional complaints Aller/Immun Reports no additional complaints Office Procedures Cystoscopy Consent Discussed risk and benefit or proposed procedure with the patient. Information consent for procedure given to the patient. Discussed technical aspects, risks, benefits and alternatives in full. Addressed all of the patient's questions and concerns regarding the procedure. The patient demonstrated knowledge and understanding. They wish to proceed with this procedure. Preparation The patient was prepped in the usual manner. A natural history collections curator was present and in the room. Genitalia was prepped with betadine solution in a sterile manner. Lidocaine Jelly 2% was placed into the urethra and 16Fr flexible Olympus cystoscope was inserted into the meatus after adequate lubrication. Procedure Time out per protocol performed. Speculum used as indicated for adequate visualization of urethra, the flexible cystoscope is passed transurethrally: Cystoscopy findings: mild edema ureteral orifice which is expected, distal end of ureteral stent visualized. The grasping forceps were used and the stent was removed without difficulty. [id number] with stent removal DISPOSABLE SCOPE URO-G FLEXIBLE SCOPE Procedure code (CPT) selection complete Office Meds lidocaine HCl 2 % mucosal jelly in applicator Performing Provider: Jennifer Salas MD Performing Location: [facility] Administered by: Jennifer Salas MD on 01/17/25 13:29 Dose Route Admin Location Dispensed Lot Number Expiration Date ND Remote Sensing Analyst 10 mL intra-urethral 20 mL ciprofloxacin HCl 500 mg tablet Performing Provider: Jennifer Salas MD Performing Location: [facility] Administered by: Jennifer Salas MD on 01/17/25 13:29 Dose Route Admin Location Dispensed Lot Number Expiration Date NDC Remote Sensing Analyst 500 mg PO 1 tab phenazopyridine 200 mg tablet Performing Provider: Jennifer Salas MD Performing Location: [facility] Administered by: Jennifer Salas MD on 01/17/25 13:29 Dose Route Admin Location Dispensed Lot Number Expiration Date NDC Remote Sensing Analyst 200 mg PO 1 tab Comments: Naproxen held due to patient being on Eliquis. Results Reviewed Results Reviewed: Date of Service: 12/13/24 EXAMINATION: XR ABDOMEN 1 VIEW (KUB) HISTORY: Z96.0 - Presence of urogenital implants COMPARISON: Correlation is made with intraoperative imaging dated 10/09/2024. FINDINGS: A single supine view of the abdomen is submitted. The bowel gas pattern is unremarkable, without evidence of mechanical obstruction. There has been migration of the previously seen right ureteral stent the proximal portion in the mid ureter and a large portion of the stent likely in the bladder. There are multiple phleboliths in the pelvis. There are no abnormal soft tissue masses. There is degenerative change and levoscoliosis of the spine. IMPRESSION: Migration of the right ureteral stent with the proximal portion in the mid ureter. Date of Service: 12/07/24 CLINICAL HISTORY: N13.30 - Unspecified hydronephrosis US Renal Comparison: 08/12/2024 Findings: Right kidney normal size and echotexture, 9.9 cm length. Left kidney normal size and echotexture, 8.1 cm length. No hydronephrosis of either kidney. Normal color Doppler IMPRESSION: 1. Normal kidneys. Assessment & Plan Assessment & Plan (1) Ureteral stent present: Code(s): Z96.0 - Presence of urogenital implants Category: Medical (2) Kidney stone: Code(s): N20.0 - Calculus of kidney Category: Medical Plan Plan - Discussed diet modification with the patient and provide educational pamphlet. - Prescribe Macrobid 100 mg twice a day for 5 days pending urine culture results. - Schedule follow-up in 4 months with the nurse practitioner to follow patient for recurrent UTI's, monitor and manage for recurrent kidney stones Orders: Orders AMB Cystoscopy Today Z96.0 - Presence of urogenital implants Medications: New nitrofurantoin monohyd/m-cryst 100 mg (Macrobid) must administer with a meal/food 100 mg PO BID 10 caps 0RF 5 days Patient Instructions: The patient had an opportunity to ask questions regarding treatment plan. The patient expressed understanding and agreement with the above treatment plan. The patient is aware they should contact our office by phone for worsening of their current condition or the appearance of new symptoms. Compliance is encoura ged with any medications and followup testing that is ordered. It is a privilege to be allowed the opportunity to participate in the urologic care of your patient. If you have any questions or concerns regarding treatment for the above conditions please do not hesitate to contact me. The office telephone contact is [phone]. This note is constructed in part using voice recognition software. While every effort has been made to ensure accuracy planograph operator errors may have been included. Yours sincerely, Jennifer Salas MD Scribe Plan - Not visible on output: Patient was informed and verbally consented to the use of an ambient scribe for clinic note documentation during this visit. Coding Level of Care Code Est Pt Level 3 (05604) Diagnoses Ureteral stent present Z96.0 Kidney stone N20.0 CPT Codes Cystoscopy - CPT: 05742-[id number] with stent removal ([id number])
--- OUTSIDE RECORDS SUMMARY | 2025-01-17 12:46 | XMS_ITS | Data Portability ---
Author Organization [employer], [facility] Address [address] [place] [phone] Care Team Providers Care Hyperbaric Tech Name Role Phone NAME, JOSE Primary Care Provider HIM CHRIS OTHER Assessment Encounter Date Assessment Date Assessment LastModified by Organization Details LastModified Time 10/07/2024 10/07/2024 Mrs. Amado degroot was evaluated for confusion and urinary symptoms. On assessment she is afebrile, mildly bradycardic and hypertensive. Per oak tanner assessment she is independently ambulatory with a [...] Assessment and Plan as documented by the Optical Instrument Specialist. We discussed the diagnostic uncertainty of [...] Assessment and Plan as documented by the Optical Instrument Specialist. We discussed the diagnostic uncertainty of [...] agreeable they are requesting she go to [facility]. EMS initiated by [facility] provider, I called report to dry pan [email or web address] at [facility] ER [email or web address] Not available 10/08/2024 17:38:59 11/23/2024 11/23/2024 service [...] ptimary team [email or web address] Not available 11/23/2024 21:32:38 01/15/2025 01/15/2025 I have reviewed and agree with the assessment and plan as documented by the oak tanner. I provided real time medical direction for this encounter and was immediately available to provide additional phone based assistance as needed. History as noted by oak tanner. Pt with history HTN, DM2, and ? afib on ?apixaban. Pt's family is helping to translate. Pt reports substernal CP since yesterday which radiates into both shoulders. Pt is constant and does not seem to change with activity, movement or breathing. No associated SOB. Family reports that pt has been feeling increased stress recently. Pt and family deny any prior history of CAD. On exam, pt comfortable, lungs clear. EKG with NSR, TWI noted inferiorly in leads III, aVF. No old EKG for comparison. Impression: Pt with SSCP since yesterday with radiation into both shoulders with no associated SOB. Pain is reportedly constant with no change with exertion, movement or breathing. Cardiac risk factors: age, HTN, DM2. EKG with inferior T wave changes, no old EKG for comparison. Although I have a low suspicion for ACS in this patient, given her symptoms and CRF, I discuss with the pt and her family that she will need further evaluation in the ED with troponins to r/o ACS. Family plans to take the pt by private vehicle to the [facility] ED for evaluation. I feel comfortable with the pt going there via private car at this time. I discuss case with one of the ED providers at [facility] as well. [email or web address] Not available 01/15/2025 12:22:44 Plan of Treatment Reminders Order Date Submit Date Provider Last Modified By Organization Details Last Modified Time Details Appointments None recorded. Lab urinalysis, dipstick 2024 025 [facility], [address] [place] [address], [id number] 5 20:08:02 BMP, serum or plasma 2024 025 [facility], [address] [place] [address], [id number] 5 20:08:02 culture, urine 2024 025 [facility], [address] [place] [address], [facility], [place], [address], 5 20:14:38 urinalysis, dipstick 2024 025 [facility], [address] [place] [address], [id number] 5 20:08:03 glucose, fingerstick , blood 2024 025 [email or web address] 0 [facility], [address] [place] [address], [id number] 5 15:20:09 urinalysis, dipstick 2024 025 [facility], [address] [place] [address], [id number] 19:19:04 BMP, serum or plasma 2024 [facility], [address] [place] [address], [id number] 5 19:19:23 culture, urine 2024 [place] [facility] (Centralized Electronic Ordering - All Locations), Patient Can Go To The Location Of Their Choice, [address] 12:05:39 Referral None recorded. Procedures None recorded. Surgeries None recorded. Imaging electrocard iogram 2024 025 [facility], [address] [place] [address], [id number] 5 11:25:27 electrocard iogram 2024 025 [facility], [address] [place] [address], [id number] 5 00:24:18 Medication Orders cefpodoxime 200 mg tablet 2024 025 [facility]2071, [address] [place], [address], 5 19:21:07 sodium chloride 0.9 % intravenous solution 2024 025 [email or web address] 0 [facility]/Pharmacy #2071, [address] [place], [address], 5 15:21:50 cefpodoxime 200 mg tablet 2024 025 [facility]armacy #2071, [address] [place], [address], 5 18:19:44 ceftriaxone 1 gram solution for injection 2024 025 [email or web address] [facility], [address] [place], [address], 5 14:11:56 sodium chloride 0.9 % intravenous solution 2024 025 [email or web address] [facility], [address] [place], [address], 5 14:12:07 Patient TargetsNo targets recorded. Patient InstructionsNo instructions recorded. Reason for Referral None Reported. Results Created Date Observation Date Name Description Value Unit Range Abnormal Flag Note LastModifiedBy Organization Detail LastModifiedTime 10/08/19 25 10/09/2024 URINE CULTU RE,CO MPREH ENSIV E urine culture,comp rehensive Final report abnormal Not Available [facility] ([facility]) [address] [place], [address], 10/09/2024 14:06:17 10/08/19 25 10/09/2024 URINE CULTU RE,CO MPREH ENSIV E result 1 Klebsi abhi oxytoc a abnormal Great er than 100,0 00 colon y formi ng units per mL Not Available [facility] ([facility]) [address] [place], [address], 10/09/2024 14:06:17 10/08/19 25 10/09/2024 URINE CULTU RE,CO MPREH ENSIV E result 2 Not applic able Not Available [facility] ([facility]) [address] [place], [address], 10/09/2024 14:06:17 10/08/19 25 10/09/2024 URINE CULTU [...] Not Available [facility] ([facility]) [address] [facility], [place], [address], 10/09/2024 14:06:17 10/09/19 25 10/08/2024 gluco se, finge rstic k, blood Blood Glucose: mg/dl 220 Not Available [facility] [address] [place] [address], [id number] 10/08/2024 15:18:52 11/24/19 25 11/29/2024 CULTU RE, URINE , ROUTI NE culture, urine, routine SEE NOTE abnormal CULTU RE, URINE , ROUTI NE Micro Numbe r: [id number] Test Statu s: Final Speci men Sourc e: Not given Speci men Quali ty: Adequ ate Resul t: Great er than 100,0 00 CFU/m L of Esche jarrell a coli 50,00 0-100 ,000 CFU/m L of Klebs iella aerulises carter (Ente robac ter) E.col i K. aerog [...] lexin and lorac arbef . Not Available [facility] [address] [place] [address] B, [place], [address], 11/29/2024 10:07:23 10/09/19 25 10/08/2024 elect shabbir diogr am No observ ation record ed. [email or web address] [facility] [address] [place] [address], [id number] 10/08/2024 18:13:27 01/16/20 25 01/15/2025 odette shea diogr am No observ ation record ed. [email or web address] [facility] [address], [address] 01/15/2025 12:58:38 Result Notes None recorded. Medical Equipment None Reported. Allergies Allergen ID Allergen Name Allergen Category Reaction Reaction Severity Criticality Documentation Date Start Date Code Code System Note Provider Name and Address Organization Details Recorded Time 91069 Product containin g penicilli n (product) medicatio n Not available Not available Not available 10/07/2024 91759 8001 SNOMED Not Available [facility] - production [...] % 97 % 134/76 mm[Hg] Not Available Bread 5 13:57:20 Date Recorded Respiratory rate Body height Body weight Oxygen saturation Oxygen saturation in Arterial blood by Pulse oximetry Heart rate Systolic And Diastolic Provider Name and Address Organization Details Last Updated DateTime 5 14 /min 157.48 cm 29365.6 g 96 % 96 % 40 /min 109/63 mm[Hg] Not Available [facility] 5 15:17:36 Date Recorded Oxygen saturation Oxygen saturation in Arterial blood by Pulse oximetry Body weight Respiratory rate Body height Body temperature Heart rate Systolic And Diastolic Provider Name and Address Organization Details Last Updated DateTime 5 95 % 95 % 41514.1 92 g 19 /min 139.7 cm 98.1 [degF] 79 /min 160/53 mm[Hg] Not Available [facility] 5 18:18:07 Date Recorded Respiratory rate Heart rate Oxygen saturation Oxygen saturation in Arterial blood by Pulse oximetry Body temperature Body weight Body height Systolic And Diastolic Provider Name and Address Organization Details Last Updated DateTime 5 16 /min 71 /min 94 % 94 % 97.4 [degF] 06230.9 68 g 162.56 cm 164/81 mm[Hg] Not Available [facility] 5 11:13:07 Social History None recorded. Functional Status None recorded. Mental Status None recorded. Family History Nothing Reported. Medical History No medical history recorded. Gynecological HistoryNo gynecological history recorded. Obstetrics History GPAL:G 0 P 0 0 0 0 Past Encounters Encounter ID Performer Location Encounter Start Date Encounter Closed Date Diagnosis/Indication Diagnosis SNOMED-CT Code Diagnosis ICD10 Code Diagnosis Note [id number] ROSALIO MCARTHUR MD [facility] [address] [place] [id number] 10/07/2024 13:57:18 10/30/2024 16:31:13 Acute urinary tract infection 441428179 N39.0 [id number] Charlotte Cao MD [facility] [address] [place] [id number] 10/08/2024 15:17:33 10/08/2024 23:30:26 Altered mental status 734455923 R41.82 posible urosepsis patient is borderline hypotensiv e, clammy,, she is not hypoglycem ic. EKG reveals sinus bradycardi a at a rate of 48/there is a MD visible but the EKG did not capture [...] to compare it to/explain ed to family [id number] Kyung Posadas MD [facility] [address] [place] [id number] 11/23/2024 18:17:59 11/23/2024 21:58:18 Recurrent urinary tract infection 988986471 N39.0 Urinary symptoms 6433554 08 R39.9 [id number] Theodore Bliss MD [facility] [address] [phone] 01/15/2025 11:12:58 01/16/2025 21:34:45 Chest pain 39274165 R07.9 Health Concerns Section Related Observation LastModified by Organization Detai ls LastModified Time None Recorded Concern Status LastModified by Organization Details LastModified Time None Recorded Advance Directives Directive None Recorded Payers Insurance Date Sequence Insurance Name Policy Number Policy Monzon Covered Member ID Monzon Member ID Guarantor Name 01/15/2025 1 [facility] - DOS ON OR AFTER 2022 - DUAL ELIGIBLE - RETIREMENT OPTIONS AND ONE CARE (MEDICARE REPLACEMENT/ADV ANTAGE - HMO) Victorina Mike [id number] Victorina Mkie Notes Date Note Type Note Provider Name [...] at 10/07/2024 Allergies Reviewed at 10/07/2024 Comments: Unloading Checker verified the Pt.'s name//address and phone number. [...] the counter medication - Wellness check requested. Optical Instrument Specialist Organization Information for José Miguel Romero [employer] Legal Name: [facility] Address: [address] [place] [address], [place] [address], Loading Shovel Oiler: Juan Wilson MD CLIA No.: [id number] Optical Instrument Specialist POC Test Results from José Miguel Romero [...] .................... .................... .................... .................... .................... .................... . Optical Instrument Specialist Note From José Miguel Romero: This visit [...] questions and are agreeable to this plan. [facility] Lab Orders: urinalysis, dipstick: Performed BMP, serum or plasma: Performed culture, urine: Performed [facility] Medication Orders: ceftriaxone 1 gram solution for injection: Administered sodium chloride 0.9 % intravenous solution: Administered .................... .................... .................... .................... .................... .................... .................... . [facility] Consulted: Rosalio Mcarthur .................... .................... .................... .................... .................... .................... .................... . Disposition: Moon MCARTHUR MD [address] [place] [address],[address], [place], [phone], [employer] 10/07/2024 14:53:49 10/08/2024 text/html [facility] Nurse Triage Notes (Sirisha Segovia): Reason For [...] 2PMH Reviewed at 10/08/2024:56Allergies Reviewed at 10/08/2024:56Comments: Unloading Checker verified the name//address and phone number. Son [...] s/s and seek emergency treatment if need Optical Instrument Specialist Organization Information for Mensah Monicasouleymane Villasenor Legal Name: [employer] Address: [address] [place] [address], Loading Shovel Oiler: Morro Kwon MD CLIA No.: [id number] Optical Instrument Specialist POC Test Results from Elma Mensah EKG (15:22:55) EKG test performed. Attachments uploaded as part of this test result can be found under Documents section. Blood Glucose Measurement (15:22:57) Blood Glucose: 220 mg/dL .................... .................... .................... .................... .................... .................... .................... . Optical Instrument Specialist Note From Elma Mensah: SHELLEY makes [...] she is not bleeding anywhere. Pt is Grenadian-speaking only and family is present and on the phone to provide hx and translation. Family tells SHELLEY the pt was seen by [facility] yesterday and dx w/ a UTI, [...] bit worse over the past couple days. [facility] obtains vital signs and pt is [...] touch. Pt continues to be sleepy . [facility] contacts [facility] and discusses the above. Out of concern for urosepsis, [facility] and [facility] feel pt should be transported to the hospital for further evaluation and care. Family is amendable to the plan. [facility] orders FSBG, a 12-lead EKG, and 500mls NS fluid bolus. Finger stick and EKG are obtained. A 20ga IV is established in the L AC and 500mls NS are administered. [facility] calls 911 and pt is transported to [facility] by [facility]. [facility] is clear. Report completed by NISHA Mensah [id number]. [facility] Lab Orders: glucose, fingerstick, blood: Performed [facility] Medication Orders: sodium chloride 0.9 % intravenous solution: Administered .................... .................... .................... .................... .................... .................... .................... . [facility] Consulted: Charlotte Cao .................... .................... .................... .................... [...] growing out gram-negative rods. Charlotte Cao MD [address] [place] [address],[address], [place], [phone], [employer] 10/08/2024 17:39:10 11/23/2024 text/html [facility] Nurse Triage [...] Diabetes Mellitus Type 2 PMH Reviewed at 11/23/2024: Allergies Reviewed at 11/23/2024: Comments: 79 y.o female complains of Urinary [...] signs of when to seek emergency care. Optical Instrument Specialist Organization Information for [employer] Legal Name: [facility] Address: [address] [place] [address], [place] [address], Loading Shovel Oiler: Juan HOLLYIA No.: [id number] Optical Instrument Specialist POC Test Results from [employer] Urine [...] .................... .................... .................... .................... .................... .................... . Optical Instrument Specialist Note From Og Riddle: Pt chief complaint [...] placed in right ac for medication administration. [facility] Kyung Posadas consulted, Pt is given 1 gram of ceftriaxone through the ac iv in a 100ml NS bag. Pt is also sent a prescription to her local Pharmacy for antibiotics. Pt is (instructed to contact her pcp or [facility] for follow up as necessary. Pt and family educated on red flag S&S and told to contact emergency services if any present. [facility] Lab Orders: urinalysis, dipstick: Performed BMP, serum or plasma: Performed culture, urine: Performed urinalysis, dipstick: Performed .................... .................... .................... .................... .................... .................... .................... . [facility] Consulted: Kyung Posadas .................... .................... .................... .................... .................... .................... .................... . Disposition: Fulfilled Kyung Posadas MD [address] [place] [address],[address], [place], [phone], [employer] 11/23/2024 21:33:01 01/15/2025 text/html This was a supervised home visit with oak tanner Elma Mensah. [facility] Nurse Triage Notes (Sirisha Segovia): Reason For Request: Patient has chest pressure, high bp 172, and her pulse was at 72. Patient Reports: Chest pain, increased fatigueDenies: History of Heart Attack, in the setting of active chest pain Active Chest pain, radiates to neck jaw and or arm Diaphoretic/Sweating Describes as crushing Sudden onset of nausea/Vomiting and shortness of breath. Shortness of Breath Unable to speak in full sentences without distress Palpitations, feeling dizzy CHF history, increased swelling and edema Weakness/tachycardia Chief Complaints: Chest PainPMH: Hypertension, Chronic Pain, Diabetes Mellitus Type 2PMH Reviewed at 01/15/2025 08:53Allergies Reviewed at 01/15/2025 08:53Comments: 79 y.o female complains of Chest Pain Son is calling for htn. 170/78> normally 130's.Pt does feel some pressure on the chest and tired.The pain is in the middle and does not move.Her bp went up last night.She does not have any shortness or breath or nausea.The pain does not go away, she did state that the pain was less.The pain was an 8 now a 4.She has not had any falls or injuries.Son feels it might be her anxiety.She does not have rapid heart rate or dizziness. HER pulse 69Blood sugar, 130I provided information on the mobile health provider response time and advised the patient and/or caregiver to monitor reported signs and symptoms. I discussed the warning signs of when to seek emergency care. Optical Instrument Specialist Organization Information for Elma Mensah Legal Name: [employer]. Address: [address] [place] [address], Medical Director: Morro Kwon [facility] No.: [id number] Optical Instrument Specialist POC Test Results from Elma Mensah EKG (10:59:09)EKG test performed.Attachment s uploaded as part of this test result can be found under Documents section. .................... .................... .................... .................... .................... .................... .................... . Optical Instrument Specialist Note From Elma Mensah: SC6 responds to the listed address for an 79yof w/ a c/c of chest pain. Upon arrival on scene, MIChacha is admitted to the apartment by family and pt is found seated in a recliner in the living room of the small apartment. She is alert and smiles and tracks MIH on approach. Pt, family, and MI recognize each other from previous encounter and rapport is easily re-established. Pt is animated and happy, no stridor or sonorous respirations are present. No facial droop or slurred speech are observed and she is not bleeding anywhere. Pt and family are Grenadian-speaking only and one family member is on the phone to provide hx and translation. Pt is endorsing chest pain in the middle of her chest that started yesterday. She describes the pain as a pressure and at times is burning and will cause both shoulders to ache. She denies radiation to the neck, jaw, or back and denies n/v/d and sob. Pt tells SHELLEY the pain is currently 2/10 and has not been more than 3/10. She says she has been feeling physically good over the past few days, however, she has also been feeling a bit sad at times. Family states pt has a tendency to take on other people's problems and worry a lot. She has a hx of anxiety and it is felt she may be experiencing this pain due to this. She ran out of her mirtazapine a few days ago that she takes occasionally for her anxiety and to help her sleep. Family tracks her vital signs daily and no obvious patterns of increased HR, bp, or blood glucose are observed in the record. Pt is well cared-for and lives w/ family and they say they have been taking her out and helping her be more active recently and they have noticed a difference in her demeanor. Family reports she has a good appetite and has had no issues w/ bladder or bowels and she has not been sick. Her next PCP appointment is on the of this month. [facility] obtains vital signs and pt is assessed. Vital signs are stable and she is afebrile. Head is atraumatic and normocephalic. Sclera are clear and extraocular movements are intact. Neck is supple and trachea is midline. Lung sounds are clear to auscultation bilaterally and cp is mildly reproducible w/ gentle sternal compression. Abdomen is soft and nontender w/ no guarding, distension, or pulsation masses noted. No new or worsening pedal edema is present or reported. A 12-lead EKG is obtained and shows a sinus rhythm w/ T wave flattening and/or inversion inferiorly and in precordial leads as well as some ST depression in V4-V6. [facility] contacts [facility] and discusses the above and [facility] would like pt to receive further cardiac workup and converses w/ family about his concerns. Family is amendable to pt being evaluated and will transport pt to [facility]. [facility] is clear. Report completed by NISHA Mensah [id number]. .................... .................... .................... .................... .................... .................... .................... . [facility] Consulted: Theodore Bliss .................... .................... .................... .................... .................... .................... .................... . Disposition: Fulfilled Theodore Bliss MD [address] [facility],[address], [place], [address], [place] HERMES ALATORRE 01/15/2025 12:23:06 OBGyn Episode No OBEpisode recorded.
--- OUTSIDE RECORDS SUMMARY | 2025-01-17 12:46 | XMS_ITS | Encounter Summary ---
Author Organization [employer] Address [address] [place] [address] Care Team Providers Care Wrong Address Clerk Name Role Phone Name, Balta MAYER Primary Care Provider [phone] Encounter Details Date Type Department Care Team (Late st Contact Info) Description 07/20/2024 Community Care Management [facility] [address] [place] [address] [employer] Link, Physician, Social History Tobacco Use [...] Description 01/21/2025 10:00 AM EDT Office Visit [facility] [address] [place] [phone] NameBalta MD [address] [place] [address] 01/21/2025 1:00 PM EDT Clinical Support [facility] [address] [place] [address] 06/19/2025 10:00 AM EST Office Visit [facility] [address] [place] [address] Harry, Esther, OD [address] [place] [address] documented as of this encounter Visit Diagnoses Not on filedocumented in this encounter Additional Health Concerns Assessment Noted Time PHQ-9 Depression Total Score: 0 09/20/19 24 1:15 PM EDT documented as of this encounter Care Teams Wrong Address Clerk Relationship Specialty Start Date End Date NameBalta MD [address] [place] [id number] PCP - General Internal Medicine 06/14/22 [facility] 08/05/24 documented as of this encounter
== END 2025-01-17 14:19 | disposition home or self-care (01) ==
LOC: HO.HUSH 12:44
PROVIDERS: PCP Internal Medicine Geriatric Medicine; Visit Provider Urology
DX: N20.0 Calculus of kidney (principal); Z96.0 Presence of urogenital implants; Z13.9 Encounter for screening, unspecified
CPT/HCPCS: 52310; 99213

== ENCOUNTER 2025-01-22 15:46 | Outpatient (AMB) | payer OTHER, SELFPAY ==
--- OUTSIDE RECORDS SUMMARY | 2024-08-13 09:00 | XMS_ITS | Continuity of Care Document ---
Author Organization [facility] Address [address] [place] [address] Phone Care Team Providers Care Matrix Bath Attendant Name Role Phone MD LEYLA Schreiber, Julia Unavailable Unava ilable Allergies, Adverse Reactions, Alerts Substance Reaction Status Criticality No Known Allergies Active No Inform ation Medications Medication Instructions Dosage Effective Dates (start - stop) Status Comments ezetimibe 10 mg tablet - Act eugene rosuvastatin 5 mg tablet - A ctive levothyroxine 25 mcg tablet - Active fluticasone propionate 50 mcg/actuation nasal spray,suspension - Active azithromycin 250 mg tablet - Active celecoxib 200 mg capsule - A ctive benzonatate 200 mg capsule - Active acyclovir 5 % topical ointment - Active acyclovir 400 mg tablet - Ac tive nabumetone 500 mg tablet - A ctive clotrimazole-betamethasone 1 %-0.05 % topical cream - Active methocarbamol 500 mg tablet - Active Procedures Procedure Date Oph Serv: Med Exam; Comp New Advance Directives Directive Yes / No Effective Date File Name No Information Encounters Encounter Description Practice Location Reason(s) For Visit Diagnoses Date Provider Providers Copied on Encounter [facility], [address], [place], [place], [id number], [place] tel:[phone] [facility] blurry vision (chief complaint) Combined forms of age-related cataract, bilateralDry eye syndrome of bilateral lacrimal glandsOpen angle with borderline findings, high risk, bilateral MD Julia Kitchen. [address] [facility], [place], [place], [address] , [place]. tel: [phone] Referring Provider: Del Camp MD, [facility] [address] , [place], [address]. tel:[phone] Family History Family Member Type Diagnosis Age At Onset No Information Payers Payer name Insurance type Covered alliance party ID randy goff(s) [facility] CI [id number] Social History Type Description Quantity Date Captured [...] syndrome of bilateral lacrimal glands Impression/Plan - Dr y eyes account for the patient's complaints. There is no evidence of permanent changes to the cornea. Explained condition does not have a cure and will need artificial tears for maintenance. PFATs QID OU Related to Dry eye syndrome of bilateral lacrimal glands Impression/Plan - Ca taracts account for the patient's complaints. No treatment currently recommended. The patient will monitor vision changes and contact us with any decrease in vision. Related to Combined forms of age-related cataract, bilateral Impression/Plan - IO P borderlinecontinue to monitor off drops Related to Open angle with borderline findings, high risk, bilateral Assessments Type Assessment Date assessment Combined forms [...]
--- NOTE | 2025-01-22 15:47 | A.OFFVIS_ITS ---
Vital Signs 01/22/25 15:58 Height 5 ft 4 in Weight 186 lb 15.232 oz BMI 32.1 BP 176/88 H Blood Pressure Location Rt radial Position Sitting Pulse 62 Intake Visit Reasons: Med F/U (Metoclopramide) per October Intake Note: Patient scheduled today's visit for follow up Metoclopramide medication. Patient c/o: reports constipation. Pcp prescribed Lactulose and rx was picked up today. Vpk Teacher Required: Yes Vpk Teacher Name: Cesar [id number] Accompanied by: son Brandon Allergies Penicillins (PENICILLINS) Allergy (Intermediate, Verified 01/22/25 16:00) NAUSEA/HIVES metformin Adverse Reaction (Unknown, Verified 01/22/25 16:00) Diarrhea Medication List - Last Reconciled 01/22/25 by PHUONG Kennedy acetaminophen 650 mg (2 x 325 mg) PO Q6H PRN 30 days amlodipine 10 mg PO BEDTIME apixaban (Eliquis) 5 mg PO BID atorvastatin 40 mg PO BEDTIME blood pressure monitor As directed calcium carbonate 600 mg PO DAILY cetirizine 10 mg PO DAILY cholecalciferol (vitamin D3) 1 tab PO DAILY cyanocobalamin (vitamin B-12) 1,000 mcg IM Q28D docusate sodium (Stool Softener) 100 mg PO DAILY empagliflozin (Jardiance) 10 mg PO DAILY ferrous gluconate 324 mg PO DAILY fluticasone propionate 50 mcg/actuation 1 - 2 sprays intranasal DAILY PRN furosemide 40 mg PO QAM hydrochlorothiazide 12.5 mg PO DAILY lactulose 10 grams PO BEDTIME linaclotide (Linzess) 145 mcg PO QAM losartan 25 mg PO BID magnesium hydroxide (Silva Milk of Magnesia) 5 mL PO BEDTIME metoclopramide HCl (Reglan) 10 mg PO QIDACHS mirtazapine 22.5 mg PO BEDTIME omeprazole 40 mg PO BID@0630,1630 oxybutynin chloride 5 mg PO BID walker Folding front wheeled walker HPI HPI Med F/U (Metoclopramide) per October: Details: Assessment & Plan (1) Epigastric pain: Code(s): R10.13 - Epigastric pain Category: Medical (2) Chronic idiopathic constipation: Code(s): K59.04 - Chronic idiopathic constipation Category: Medical (3) Abdominal bloating: Code(s): R14.0 - Abdominal distension (gaseous) Category: Medical Plan [place] #Haider Harvey She is here today with a female family member how provides most of the hx. THe patient is c/o in the epigastrum with eating. This is since she started taking Ozempic (!!!). This has been good for her diabetes, but now she is barely eating. There is a great deal of gas and bloating. At times she has rectal pain. She also, again since the medication, wants to eat in a semi reclining position. The asked to have the medicine discontinued because of the severity of the affects it is having on her and truly these are all expected side effects of Ozempic. It is also reasonable to expect that this is going to be amplified in someone who is on so many other medications and who is quite elderly. She is also suffering constipation. Since she is only on ranitidine in his also experiencing a burning in the epigastrium I am going to change her from ranitidine to omeprazole and I am going to try treating her constipation with Linzess. I will get an ultrasound of her gallbladder and gastric emptying study to be thorough. I am also sending simethicone. I think in the end we are going to have to send her to an deoiling machine operator for better diabetes management because I do not think Ozempic is going to work well and this elderly lady without causing her malnutrition. Return office visit next available Orders: Orders US abdomen complete Today K59.04 - Chronic idiopathic constipation, R10.13 - Epigastric pain NM gastric emptying study Today K59.04 - Chronic idiopathic constipation, R10.13 - Epigastric pain Medications: New linaclotide (Linzess) Take first thing in the morning with a full glass of water. 145 mcg PO QAM 30 caps 3RF K58.1 - Irritable bowel syndrome with constipation omeprazole 40 mg PO DAILY 30 days 30 caps 3RF simethicone after meals 180 mg PO TID 30 days 90 caps 3RF ULTRASOUND OF THE ABDOMEN: Not obtained GASTRIC EMPTYING STUDY 12/05/2024 FINDINGS: There is visualization of activity in the stomach immediately post ingestion. As the study progresses, there is minimal clearance of activity from the stomach and only minimal visualization of small bowel activity. Retention in the stomach at each time interval was: 1 hour 93% (normal 37%-90%) 2 hours 90% (normal 30%-60%) 3 hours 93% 4 hours 91% (normal 0%-10%) NM/NM gastric emptying study IMPRESSION: Markedly delayed gastric emptying with approximately 90% of ingested activity remaining within the stomach at 4 hours. EGD Findings: Larynx:normal Esophagus: GE junction at 40 cm, diaphragm hiatus at 40 cm, patulous GEJ, mild esophagitis, bx taken from GEJ and dital, proximal esophagus. Balloon dilation done to 20 mm at LES and UES, no tears seen Stomach: patchy erythema . Biopsies were obtained. Grade 2 flap valve on retroflexed examination of the cardia. Duodenum: Normal bulb and descending duodenum, Intervention: Biopsies as noted above, balloon dilation Impression/Findings: gastritis esophagitis patulous GEJ PLAN: trial of high dose PPI for 3 months then titrate down, e.g pantoprazole 40 mg BID GERD precautions if ongoing sx then modified ba swallow BIOPSY Received: 08/02/24 Diagnosis A. Stomach, biopsy: Gastric mucosa with moderate chronic, focally active, inflammation and extensive intestinal metaplasia; negative for dysplasia; no Helicobacter organisms identified. B. GE junction, biopsy: - Royal esophagus with background moderate chronic active inflammation. - No dysplasia seen. - Active esophagitis (scattered eosinophils and neutrophils) and relatively numerous lymphocytes. C. Esophagus, distal, biopsy: Active esophagitis (scattered eosinophils and neutrophils) and relatively numerous lymphocytes. D. Esophagus, proximal, biopsy: Focally active esophagitis (rare eosinophils) and relatively numerous lymphocytes. See comment. Comment: The lymphocytes in the esophagus are nonspecific Patient was seen as an inpatient by Dr. Alfaro son 07/30/2024 Her main admitting diagnosis was urosepsis secondary to nephrolithiasis right ureter In-hospital admission 10/23/2024: She was admitted for diverticulitis and hyperkalemia in the setting of MARIA R. CORRESPONDENCE On 12/05/24 @ 13:47 Verna Fernandez Wrote To Maria Esther Faria Please call the patient and let her know the gastric emptying study showed severe gastroparesis and this is probably 1 of the reason she is having pain nausea and vomiting. Tell her that I am sending the metoclopramide and she should take it 4 times a day at breakfast time lunchtime supper time bedtime EVEN IF SHE DOES NOT EAT in order to mimic normal GI motility. I also do not see a follow-up with me so we need to get her in so that I can evaluate the medication sooner rather than later. Medication Orders metoclopramide HCl 10 mg PO QIDACHS 120 tabs 6RF New TODAY'S VISIT [place] #[id number] (really bad!), #[id number] She is here today with her son who is supportive. Her son just stared as a primary personal care attendant for his mother, and needs some background information which I am happy to provide. She is now on Linzess 145 micro g, omeprazole 40 mg daily, simethicone, and Reglan 10 mg 4 times a day.However, she never received the LInzess. Her PCP gave her MOM and lactulose but they just got this yesterday so it has been too soon to evaluate the response. She does have the reglan, and this has helped her eating along with her son coaching her to eat more slowly and drink water with the meal. Her swallowing has been very good recently. She has had absolutely no adverse effects with the Reglan. Confounding factors that contribute to her constipation include immobility, amlodipine, oxybutynin, and possibly Jardiance. Obviously her gastroparesis is also a factor. ROV 6 weeks. [facility] Medical History (Updated 01/22/25 @ 16:39 by PHUONG Kennedy) Diarrhea Diverticulitis Abdominal bloating Epigastric pain Chronic diastolic heart failure Hydronephrosis, right Ureteral stone Dementia Calculus of proximal right ureter CKD (chronic kidney disease) Renal insufficiency Tubular adenoma of colon Preop cardiovascular exam Urinary urgency Pneumonia Hospital discharge follow-up Asthma MARIA R (acute kidney injury) GERD (gastroesophageal reflux disease) Diabetes Osteoarthritis Hyperlipidemia Hypertension JOVANNI (obstructive sleep apnea) Surgical History Hx of cataract surgery Status post total knee replacement, right History of arthroplasty of right knee Hx of colonoscopy H/O: hysterectomy History of salpingoophorectomy History of tonsillectomy Family History Father HTN (hypertension) Mother HTN (hypertension) CVD (cardiovascular disease) Daughter Bone cancer Father Cancer Social History Household Members: Family Housing: House Are you a primary vision care associate to a significant other at home: No Do you presently have visiting nurse or other home services: No Unable to assess alcohol history related to: Unknown Alcohol intake: never Comment: family at bedside Patient Tobacco Use Status: Never used Tobacco e-Cigarette/Vaping Use: Never Used Second Hand Smoke Exposure: No service: No Current occupational status: retired Current occupation: Right handed Review of Systems Const Denies fatigue, Denies fever(s), Denies night sweats, Denies poor appetite and Denies weight loss Eyes Details: Glasses Reports requires corrective lenses ENT Reports Normal hearing present, Denies dysphagia, Denies odynophagia, Denies throat swelling and Denies tongue swelling Card Reports no additional complaints Resp Reports no additional complaints GI Details: Denies abdominal pain, Denies melena, Denies bloating, Denies hematochezia, Reports constipation, Denies GI cramping, Denies dysphagia, Denies excessive flatus, Reports early satiety, Reports heartburn, Denies diarrhea, Denies nausea, Denies odynophagia, Denies vomiting and Denies hematemesis Musc Reports abnormal gait, Reports back pain and Reports arthralgias Skin/Breast Denies pruritus, Denies lesions, Denies rash and Denies jaundice Neuro Reports Normal hearing present, Denies Abnormal speech present and Reports abnormal gait Endo Denies fatigue Aller/Immun Denies throat swelling and Denies tongue swelling Physical Exam Vital Signs: Last Vital Signs Pulse 62 01/22/25 15:58 BP 176/88 H 01/22/25 15:58 BMI result Body Mass Index 32.1 Const General: cooperative, no acute distress, well developed and well groomed Nutritional Appearance: well nourished and obese Orientation/consciousness: oriented to person, oriented to place and oriented to time Limitations: language barrier and wheelchair HEENT Head: Yes normocephalic and Yes atraumatic Eyes General: appearance normal, both eyes and all related structures Pupils: Equal, round and reactive pupils present Neck Neck: Yes normal visual inspection and Yes no lymphadenopathy Thyroid: Thyroid normal Resp Effort & Inspection: normal respiratory effort and able to speak in complete sentences Auscultation: clear to auscultation bilaterally Cardio Rate: regular rate Rhythm: regular rhythm Heart sounds: Normal, physiologic split S2 sound present Peripheral pulses: radial pulses present and posterior tibial pulses present GI Inspection: No distended, Yes Abdominal panniculus present and Yes obesity Palpation (GI): Soft to palpation, nontender, no guarding, not rigid and No hepatosplenomegaly present Percussion: Yes normal to percussion Auscultation: normal bowel sounds Rectal Exam - Female: deferred Skin General skin exam: no rashes or lesions noted, turgor normal, skin not dry, no jaundice, No spider nevi and no striae Rashes: no rashes Nails: normal Neuro General: oriented to person, oriented to place and oriented to time Cranial nerves: Yes Equal, round and reactive pupils present and Yes Normal hearing present Speech: No Abnormal speech present Extrem General: Yes normal to inspection, No clubbing, No cyanosis and No edema Psych Appearance: grossly normal and well kempt Mental Status: mental status grossly normal Speech and movement: Normal speech and movement present Affect: normal affect Attitude: cooperative Thought process: Normal thought process present and not confabulating Thought content: Normal thought content present Insight: Limited insight present (Psych) Judgement: Limited judgement present (Psych) Results Reviewed Results Reviewed: GASTRIC EMPTYING STUDY 12/05/2024 FINDINGS: There is visualization of activity in the stomach immediately post ingestion. As the study progresses, there is minimal clearance of activity from the stomach and only minimal visualization of small bowel activity. Retention in the stomach at each time interval was: 1 hour 93% (normal 37%-90%) 2 hours 90% (normal 30%-60%) 3 hours 93% 4 hours 91% (normal 0%-10%) NM/NM gastric emptying study IMPRESSION: Markedly delayed gastric emptying with approximately 90% of ingested activity remaining within the stomach at 4 hours. EGD Findings: Larynx:normal Esophagus: GE junction at 40 cm, diaphragm hiatus at 40 cm, patulous GEJ, mild esophagitis, bx taken from GEJ and dital, proximal esophagus. Balloon dilation done to 20 mm at LES and UES, no tears seen Stomach: patchy erythema . Biopsies were obtained. Grade 2 flap valve on retroflexed examination of the cardia. Duodenum: Normal bulb and descending duodenum, Intervention: Biopsies as noted above, balloon dilation Impression/Findings: gastritis esophagitis patulous GEJ PLAN: trial of high dose PPI for 3 months then titrate down, e.g pantoprazole 40 mg BID GERD precautions if ongoing sx then modified ba swallow BIOPSY Received: 08/02/24 Diagnosis A. Stomach, biopsy: Gastric mucosa with moderate chronic, focally active, inflammation and extensive intestinal metaplasia; negative for dysplasia; no Helicobacter organisms identified. B. GE junction, biopsy: - Royal esophagus with background moderate chronic active inflammation. - No dysplasia seen. - Active esophagitis (scattered eosinophils and neutrophils) and relatively numerous lymphocytes. C. Esophagus, distal, biopsy: Active esophagitis (scattered eosinophils and neutrophils) and relatively numerous lymphocytes. D. Esophagus, proximal, biopsy: Focally active esophagitis (rare eosinophils) and relatively numerous lymphocytes. See comment. Comment: The lymphocytes in the esophagus are nonspecific Patient was seen as an inpatient by Dr. Alfaro son 07/30/2024 Her main admitting diagnosis was urosepsis secondary to nephrolithiasis right ureter In-hospital admission 10/23/2024: She was admitted for diverticulitis and hyperkalemia in the setting of MARIA R. CORRESPONDENCE On 12/05/24 @ 13:47 Verna Fernandez Wrote To Maria Esther Faria Please call the patient and let her know the gastric emptying study showed severe gastroparesis and this is probably 1 of the reason she is having pain nausea and vomiting. Tell her that I am sending the metoclopramide and she should take it 4 times a day at breakfast time lunchtime supper time bedtime EVEN IF SHE DOES NOT EAT in order to mimic normal GI motility. I also do not see a follow-up with me so we need to get her in so that I can evaluate the medication sooner rather than later. Medication Orders metoclopramide HCl 10 mg PO QIDACHS 120 tabs 6RF New Assessment & Plan Assessment & Plan (1) Chronic idiopathic constipation: Code(s): K59.04 - Chronic idiopathic constipation Category: Medical (2) Gastroparesis: Comment: Severe gastroparesis on 11/2024 Code(s): K31.84 - Gastroparesis Category: Medical (3) Dysphagia: Code(s): R13.10 - Dysphagia, unspecified Category: Medical Qualifiers: Dysphagia type: oropharyngeal phase Qualified Code(s): R13.12 - Dysphagia, oropharyngeal phase (4) GERD (gastroesophageal reflux disease): Code(s): K21.9 - Gastro-esophageal reflux disease without esophagitis Category: Medical Plan [place] #[id number] (really bad!), #[id number] She is here today with her son who is supportive. Her son just stared as a primary personal care attendant for his mother, and needs some background information which I am happy to provide. She is now on Linzess 145 micro g, omeprazole 40 mg daily, simethicone, and Reglan 10 mg 4 times a day.However, she never received the LInzess. Her PCP gave her MOM and lactulose but they just got this yesterday so it has been too soon to evaluate the response. She does have the reglan, and this has helped her eating along with her son coaching her to eat more slowly and drink water with the meal. Her swallowing has been very good recently. She has had absolutely no adverse effects with the Reglan. Confounding factors that contribute to her constipation include immobility, am lodipine, oxybutynin, and possibly Jardiance. Obviously her gastroparesis is also a factor. ROV 6 weeks. Medications: Refilled linaclotide (Linzess) 145 mcg PO QAM 30 caps 3RF Coding Level of Care Code Est Pt Level 4 (17168) Diagnoses Chronic idiopathic constipation K59.04 Gastroparesis K31.84 Oropharyngeal dysphagia R13.12 Dysphagia type: oropharyngeal phase GERD (gastroesophageal reflux disease) K21.9 Time Spent (min) 36
[2025-01-22 15:58] VITALS: BP 176/88; PULSE 62; BMI 32.1
--- OUTSIDE RECORDS SUMMARY | 2025-01-22 16:38 | XMS_ITS | Data Portability ---
Author Organization [facility], [facility] Address [address] [place] [address] Care Team Providers Care Hoe Worker Name Role Phone NAME, JOSE Primary Care Provider [phone] HIM CHRIS OTHER Assessment Encounter Date Assessment Date Assessment LastModified by Organization Details LastModified Time 10/07/2024 10/07/2024 Mrs. Amado degroot was evaluated for confusion and urinary symptoms. On assessment she is afebrile, mildly bradycardic and hypertensive. Per buffet waiter/waitress assessment she is independently ambulatory with a [...] Assessment and Plan as documented by the Call Center Agent. We discussed the diagnostic uncertainty of home [...] Assessment and Plan as documented by the Call Center Agent. We discussed the diagnostic uncertainty of home [...] agreeable they are requesting she go to [facility]. EMS initiated by [facility] provider, I called report to rim fire charger operatorJaymie at [facility] ER [email or web address] Not available 10/08/2024 17:38:59 11/23/2024 11/23/2024 service [...] assessment and plan as documented by the buffet waiter/waitress. I provided real time medical direction for this encounter and was immediately available to provide additional phone based assistance as needed. History as noted by buffet waiter/waitress. Pt with history HTN, DM2, and ? [...] the pt by private vehicle to the [facility] ED for evaluation. I feel comfortable with the pt going there via private car at this time. I discuss case with one of the ED providers at [facility] as well. [email or web address] Not available 01/15/2025 12:22:44 Plan of Treatment Reminders Order Date Submit Date Provider Last Modified By Organization Details Last Modified Time Details Appointments None recorded. Lab urinalysis, dipstick 2024 025 [facility], [address] [place] [address], [id number] 5 20:08:02 BMP, serum or plasma 2024 025 [facility], [address] [place] [address], [id number] 5 20:08:02 culture, urine 2024 025 [facility], [address] [place] [address], [facility], [place], [address], 5 20:14:38 urinalysis, dipstick 2024 025 [facility], [address] [place] [address], [id number] 5 20:08:03 glucose, fingerstick , blood 2024 025 [email or web address] 0 [facility], [address] [place] [address], [id number] 5 15:20:09 urinalysis, dipstick 2024 025 [facility], [address] [place] [address], [address] 19:19:04 BMP, serum or plasma 2024 [facility], [address] [place] [address], [id number] 5 19:19:23 culture, urine 2024 [facility] (Centralized Electronic Ordering - All Locations), Patient Can Go To The Location Of Their Choice, [address] 12:05:39 Referral None recorded. Procedures None recorded. Surgeries None recorded. Imaging electrocard iogram 2024 025 [facility], [address] [place] [address], [id number] 5 11:25:27 electrocard iogram 2024 025 [facility], [address] [place] [address], [id number] 5 00:24:18 Medication Orders cefpodoxime 200 mg tablet 2024 025 [facility] #2071, [address] [place], [address], 5 19:21:07 sodium chloride 0.9 % intravenous solution 2024 025 [email or web address] 0 [facility]/Pharmacy #2071, [address] [place], [address], 5 15:21:50 cefpodoxime 200 mg tablet 2024 025 [facility]armacy #2071, [address] [place], [address], 5 18:19:44 ceftriaxone 1 gram solution for injection 2024 025 [email or web address] [facility], [address] [place], [address], 5 14:11:56 sodium chloride 0.9 % intravenous solution 2024 025 [email or web address] [facility], [address] [place], [address], 5 14:12:07 Patient TargetsNo targets recorded. Patient InstructionsNo instructions recorded. Reason for Referral None Reported. Results Created Date Observation Date Name Description Value Unit Range Abnormal Flag Note LastModifiedBy Organization Detail LastModifiedTime 10/08/19 25 10/09/2024 URINE CULTU RE,CO MPREH ENSIV E urine culture,comp rehensive Final report abnormal Not Available [facility] ([facility]) [address] [place], [address], 10/09/2024 14:06:17 10/08/19 25 10/09/2024 URINE CULTU RE,CO MPREH ENSIV E result 1 Klebsi abhi oxytoc a abnormal Great er than 100,0 00 colon y formi ng units per mL Not Available [facility] ([facility]) [address] [place], [address], 10/09/2024 14:06:17 10/08/19 25 10/09/2024 URINE CULTU RE,CO MPREH ENSIV E result 2 Not applic able Not Available [facility] ([facility]) [address] [place], [address], 10/09/2024 14:06:17 10/08/19 25 10/09/2024 URINE CULTU [...] thopr im/Foster lfa S Not Available [facility] ([facility]) [address] [facility], [place], [address], 10/09/2024 14:06:17 10/09/19 25 10/08/2024 gluco se, finge rstic k, blood Blood Glucose: mg/dl 220 Not Available [facility] [address] [place] [address], [address] 10/08/2024 15:18:52 11/24/19 25 11/29/2024 CULTU RE, URINE , ROUTI NE culture, urine, routine SEE NOTE abnormal CULTU RE, URINE , ROUTI NE Micro Numbe r: [id number] Test Statu s: Final Speci men [...] lexin and lorac arbef . Not Available [facility] [address] [place] [address] B, [place], [address], 11/29/2024 10:07:23 10/09/19 25 10/08/2024 elect shabbir diogr am No observ ation record ed. [email or web address] [facility] [address] [place] [address], [id number] 10/08/2024 18:13:27 01/16/20 25 01/15/2025 odette shea diogr am No observ ation record ed. [email or web address] [facility] [address], [address] 01/15/2025 12:58:38 Result Notes None recorded. Medical Equipment None Reported. Allergies Allergen ID Allergen Name Allergen Category Reaction Reaction Severity Criticality Documentation Date Start Date Code Code System Note Provider Name and Address Organization Details Recorded Time 45715 Product containin g penicilli n (product) medicatio n Not available Not available Not available 10/07/2024 89908 8001 SNOMED Not Available [facility] - production [...] % 97 % 134/76 mm[Hg] Not Available [facility] 5 13:57:20 Date Recorded Respiratory rate Body height Body weight Oxygen saturation Oxygen saturation in Arterial blood by Pulse oximetry Heart rate Systolic And Diastolic Provider Name and Address Organization Details Last Updated DateTime 5 14 /min 157.48 cm 55914.6 g 96 % 96 % 40 /min 109/63 mm[Hg] Not Available [facility] 5 15:17:36 Date Recorded Oxygen saturation Oxygen saturation in Arterial blood by Pulse oximetry Body weight Respiratory rate Body height Body temperature Heart rate Systolic And Diastolic Provider Name and Address Organization Details Last Updated DateTime 5 95 % 95 % 78242.1 92 g 19 /min 139.7 cm 98.1 [degF] 79 /min 160/53 mm[Hg] Not Available [facility] 5 18:18:07 Date Recorded Respiratory rate Heart rate Oxygen saturation Oxygen saturation in Arterial blood by Pulse oximetry Body temperature Body weight Body height Systolic And Diastolic Provider Name and Address Organization Details Last Updated DateTime 5 16 /min 71 /min 94 % 94 % 97.4 [degF] 67420.9 68 g 162.56 cm 164/81 mm[Hg] Not Available [facility] 5 11:13:07 Social History None recorded. Functional Status None recorded. Mental Status None recorded. Family History Nothing Reported. Medical History No medical history recorded. Gynecological HistoryNo gynecological history recorded. Obstetrics History GPAL:G 0 P 0 0 0 0 Past Encounters Encounter ID Performer Location Encounter Start Date Encounter Closed Date Diagnosis/Indication Diagnosis SNOMED-CT Code Diagnosis ICD10 Code Diagnosis Note [id number] ROSALIO MCARTHUR MD [facility] [address] [place] [phone] 10/07/2024 13:57:18 10/30/2024 16:31:13 Acute urinary tract infection 458743319 N39.0 [id number] Charlotte Cao MD [facility] [address] [place] [phone] 10/08/2024 15:17:33 10/08/2024 23:30:26 Altered mental status 682945273 R41.82 posible urosepsis patient is borderline hypotensiv e, clammy,, she is not hypoglycem ic. EKG reveals sinus bradycardi a at a rate of 48/there is a DC visible but the EKG did not capture [...] to compare it to/explain ed to family [id number] Kyung Posadas MD [facility] [address] [place] [phone] 11/23/2024 18:17:59 11/23/2024 21:58:18 Recurrent urinary tract infection 237726882 N39.0 Urinary symptoms 7531747 08 R39.9 [id number] Theodore Bliss MD [facility] [address] [phone] 01/15/2025 11:12:58 01/16/2025 21:34:45 Chest pain 35908082 R07.9 Health Concerns Section Related Observation LastModified by Organization Detai ls LastModified Time None Recorded Concern Status LastModified by Organization Details LastModified Time None Recorded Advance Directives Directive None Recorded Payers Insurance Date Sequence Insurance Name Policy Number Policy Monzon Covered Member ID Monzon Member ID Guarantor Name 01/15/2025 1 [facility] [employer] - DOS ON OR AFTER 2022 - DUAL ELIGIBLE - LONG TERM OPTIONS AND ONE CARE (MEDICARE REPLACEMENT/ADV ANTAGE - HMO) Victorina Mike [id number] Victorina Mike Notes Date Note Type Note [...] at 10/07/2024 Allergies Reviewed at 10/07/2024 Comments: Armored Car Guard And Driver verified the Pt.'s name//address and phone number. [...] the counter medication - Wellness check requested. Call Center Agent Organization Information for José Miguel Romero [employer] Legal Name: [facility] Address: [address] [place] [address], [place] [address], Meat Grading Machine Operator: Juan Wilson MD CLIA No.: [id number] Call Center Agent POC Test Results from José Miguel Romero [...] .................... .................... .................... .................... .................... .................... . Call Center Agent Note From José Miguel Romero: This visit [...] questions and are agreeable to this plan. [facility] Lab Orders: urinalysis, dipstick: Performed BMP, serum or plasma: Performed culture, urine: Performed [facility] Medication Orders: ceftriaxone 1 gram solution for injection: Administered sodium chloride 0.9 % intravenous solution: Administered .................... .................... .................... .................... .................... .................... .................... . [facility] Consulted: Rosalio Mcarthur .................... .................... .................... .................... .................... .................... .................... . Disposition: Moon MCARTHUR MD [address] [place] [address],[address], [place], [phone], [employer] 10/07/2024 14:53:49 10/08/2024 text/html [facility] Nurse Triage Notes (Sirisha Segovia): [...] 2PMH Reviewed at 10/08/2024:56Allergies Reviewed at 10/08/2024:56Comments: Armored Car Guard And Driver verified the name//address and phone number. Son [...] s/s and seek emergency treatment if need Call Center Agent Organization Information for Mensah Monicasouleymane Villasenor Legal Name: [employer] Address: [address] [place] [address], Meat Grading Machine Operator: Morro Kwon MD CLIA No.: [id number] Call Center Agent POC Test Results from Elma Mensah EKG (15:22:55) EKG test performed. Attachments uploaded as part of this test result can be found under Documents section. Blood Glucose Measurement (15:22:57) Blood Glucose: 220 mg/dL .................... .................... .................... .................... .................... .................... .................... . Call Center Agent Note From Elma Mensah: SHELLEY makes pt [...] she is not bleeding anywhere. Pt is Par[place]ayan-speaking only and family is present and on the phone to provide hx and translation. Family tells SHELLEY the pt was seen by [facility] yesterday and dx w/ a UTI, [...] bit worse over the past couple days. [facility] obtains vital signs and pt is [...] touch. Pt continues to be sleepy . [facility] contacts [facility] and discusses the above. Out of concern for urosepsis, [facility] and [facility] feel pt should be transported to the hospital for further evaluation and care. Family is amendable to the plan. [facility] orders FSBG, a 12-lead EKG, and 500mls NS fluid bolus. Finger stick and EKG are obtained. A 20ga IV is established in the L AC and 500mls NS are administered. [facility] calls 911 and pt is transported [facility] by [facility]. [facility] is clear. Report completed by NISHA Mensah [id number]. [facility] Lab Orders: glucose, fingerstick, blood: Performed [facility] Medication Orders: sodium chloride 0.9 % intravenous solution: Administered .................... .................... .................... .................... .................... .................... .................... . [facility] Consulted: Charlotte Cao .................... .................... .................... .................... [...] growing out gram-negative rods. Charlotte Cao MD [address] [place] [address],[address], [place], [address], [employer] 10/08/2024 17:39:10 11/23/2024 text/html [facility] Nurse Triage [...] signs of when to seek emergency care. Call Center Agent Organization Information for [employer] Legal Name: [facility] Address: [address] [place] [address], [place] [address], Meat Grading Machine Operator: Juan HOLLYIA No.: [id number] Call Center Agent POC Test Results from Og Riddle Urine [...] .................... .................... .................... .................... .................... .................... . Call Center Agent Note From Og Riddle: Pt chief complaint [...] placed in right ac for medication administration. [facility] Kyung Posadas consulted, Pt is given 1 gram of ceftriaxone through the ac iv in a 100ml NS bag. Pt is also sent a prescription to her local Pharmacy for antibiotics. Pt is (instructed to contact her pcp or [facility] for follow up as necessary. Pt and family educated on red flag S&S and told to contact emergency services if any present. [facility] Lab Orders: urinalysis, dipstick: Performed BMP, serum or plasma: Performed culture, urine: Performed urinalysis, dipstick: Performed .................... .................... .................... .................... .................... .................... .................... . [facility] Consulted: Kyung Posadas .................... .................... .................... .................... .................... .................... .................... . Disposition: Fulfilled Kyung Posadas MD [address] [place] [address],[address], [place], [phone], [employer] 11/23/2024 21:33:01 01/15/2025 text/html This was a supervised home visit with buffet waiter/waitress Elma Mensah. [facility] Nurse Triage Notes (Sirisha Segovia): [...] signs of when to seek emergency care. Call Center Agent Organization Information for Elma Mensah Legal Name: [employer] Address: [address] [place] [address], Medical Director: Morro Kwon [facility] No.: [id number] Call Center Agent POC Test Results from Elma Mensah EKG (10:59:09)EKG test performed.Attachment s uploaded as part of this test result can be found under Documents section. .................... .................... .................... .................... .................... .................... .................... . Call Center Agent Note From Elma Mensah: SC6 responds to [...] not bleeding anywhere. Pt and family are Paraguayan-speaking only and one family member is on [...] appointment is on the of this month. [facility] obtains vital signs and pt is [...] well as some ST depression in V4-V6. [facility] contacts [facility] and discusses the above and [facility] would like pt to receive further cardiac workup and converses w/ family about his concerns. Family is amendable to pt being evaluated and will transport pt to [facility]. [facility] is clear. Report completed by NISHA Mensah [id number]. .................... .................... .................... .................... .................... .................... .................... . [facility] Consulted: Theodore Bliss .................... .................... .................... .................... .................... .................... .................... . Disposition: Fulfilled Theodore Bliss MD [address] [facility],[address] [facility], [place], [address], [place] HERMES ALATORRE 01/15/2025 12:23:06 OBGyn Episode No OBEpisode recorded.
--- OUTSIDE RECORDS SUMMARY | 2025-01-22 16:38 | XMS_ITS | Encounter Summary ---
Author Organization [employer] Address [address] [place] [address] Care Team Providers Care Medical Lab Technician Name Role Phone Name, Balta MAYER Primary Care Provider [phone] Encounter Details Date Type Department Care Team (Late st Contact Info) Description 07/20/2024 Community Care Management [facility] MEDICINE [address] [place] [address] Epic[employer] Link, Physician, Social History Tobacco Use [...] Care Team (Late st Contact Info) Description 02/22/2025 10:00 AM EDT Clinical Support [facility] MEDICINE [address] [place] [address] 06/19/2025 10:00 AM EST Office Visit [facility] OPTOMETRY [address] [place] [address] Harry, Esther, OD [address] [place] [address] documented as of this encounter Visit Diagnoses Not on filedocumented in this encounter Additional Health Concerns Assessment Noted Time PHQ-9 Depression Total Score: 0 09/20/19 24 1:15 PM EDT documented as of this encounter Care Teams Medical Lab Technician Relationship Specialty Start Date End Date Name, MD Balta [address] [place] [address] PCP - General Internal [facility] documented as of this encounter
== END 2025-01-22 16:31 | disposition home or self-care (01) ==
LOC: HO.HGI 15:46
PROVIDERS: PCP Internal Medicine Geriatric Medicine; Visit Provider Nurse Practitioner
DX: K59.04 Chronic idiopathic constipation (principal); K31.84 Gastroparesis; R13.12 Dysphagia, oropharyngeal phase; K21.9 Gastro-esophageal reflux disease without esophagitis
CPT/HCPCS: 99214

== ENCOUNTER → 2025-01-22 15:46 | Outpatient (BNVA) | payer OTHER, SELFPAY | PROVIDERS: PCP Internal Medicine Geriatric Medicine; Visit Provider Nurse Practitioner | DX: R10.13 Epigastric pain (principal); K59.04 Chronic idiopathic constipation; R14.0 Abdominal distension (gaseous) | CPT/HCPCS: 99212 ==

== ENCOUNTER 2025-02-25 13:37 | Outpatient (AMB) | payer OTHER, SELFPAY ==
--- OUTSIDE RECORDS SUMMARY | 2024-08-13 09:00 | XMS_ITS | Continuity of Care Document ---
Author Organization [facility] Address [address] [place] [address] Phone Care Team Providers Care Boiler Washer Name Role Phone MD LEYLA Schreiber, Julia [...] Copied on Encounter [facility], [address], [place], [place], [id number], [place] tel:[phone] [facility] blurry vision (chief complaint) Combined forms of age-related cataract, bilateralDry eye syndrome of bilateral lacrimal glandsOpen angle with borderline findings, high risk, bilateral MD Julia Kitchen. [address] [facility], [place], [place], [address] , [place]. tel: [phone] Referring Provider: Del Camp MD, [facility] [address] , [place], [address]. tel:[phone] Family History Family Member Type Diagnosis Age At Onset No Information Payers Payer name Insurance type Covered republican ID randy goff(s) [facility] [facility] CI [id number] Social History Type Description Quantity Date Captured [...]
--- NOTE | 2025-02-25 13:45 | HO.NEPHOV ---
Vital Signs 02/25/25 13:46 Height 5 ft 4 in BP 110/68 Blood Pressure Location Rt radial Position Sitting Pulse 72 Pulse Source Pulse Oximeter Pulse Oximetry (%) 95 Oxygen Delivery Method Room Air Intake Visit Reasons: 4 MO FU/ Conf Line Construction Superintendent Required: Yes Line Construction Superintendent Language: Fire Investigation Manager Name: [id number] Vijay Accompanied by: Son Allergies Penicillins (PENICILLINS) Allergy (Intermediate, Verified 02/25/25 13:47) NAUSEA/HIVES metformin Adverse Reaction (Unknown, Verified 02/25/25 13:47) Diarrhea Medication List - Last Reconciled 02/25/25 by Karthik Irvin MD acetaminophen 650 mg (2 x 325 mg) PO Q6H PRN 30 days amlodipine 2.5 mg PO DAILY apixaban (Eliquis) 5 mg PO BID atorvastatin 40 mg PO BEDTIME blood pressure monitor As directed calcium carbonate 600 mg PO DAILY cetirizine 10 mg PO DAILY cholecalciferol (vitamin D3) 1 tab PO DAILY cyanocobalamin (vitamin B-12) 1,000 mcg IM Q28D docusate sodium (Stool Softener) 100 mg PO DAILY empagliflozin (Jardiance) 10 mg PO DAILY ferrous gluconate 324 mg PO DAILY fluticasone propionate 50 mcg/actuation 1 - 2 sprays intranasal DAILY PRN hydrochlorothiazide 12.5 mg PO QAM losartan 25 mg PO BID magnesium hydroxide (Silva Milk of Magnesia) 5 mL PO BEDTIME metoclopramide HCl (Reglan) 10 mg PO QIDACHS omeprazole 40 mg PO BID@0630,1630 oxybutynin chloride 5 mg PO BID walker Folding front wheeled walker Do you need a note to return to daycare/school/sports/work: No HPI Comments Details: 78F with chronic idiopathic constipation, obstructive sleep apnea, barrets and eosinophilic esophagitis, hyperlipidemia, unspecified asthma, chronic diastolic CHF, paroxysmal atrial fibrillation, sent in for hyperkalemia. Patient [place] [facility] [place]24-08/02[place]24 for diverticulitis and hyperkalemia with MARIA R. At that time received fluids and antibiotics and her losartan and Aldactone had been discontinued. Patient reports feeling well since discharge, had follow-up labs which revealed hyperkalemia with potassium of 6.8 and acute kidney injury with creatinine of 1.61 h/o Venous insufficiency and lymphedema She was recently in the hospitla for MARIA R with a Cr of 2.26 and resolved prior to discharge. During this admission, K has been corrected with lokelma Losartan on hold Cr is at 1.8 Baseline < 1.0 08/30/24 Off ACEi Cr is down to 1.2 K is at 5.1 now c/o Constipation [facility] Medical History (Updated 02/16/25 @ 15:16 by Jennifer Salas MD) Diarrhea Diverticulitis Abdominal bloating Epigastric pain Chronic diastolic heart failure Hydronephrosis, right Ureteral stone Dementia Calculus of proximal right ureter CKD (chronic kidney disease) Renal insufficiency Tubular adenoma of colon Preop cardiovascular exam Urinary urgency Pneumonia Hospital discharge follow-up Asthma MARIA R (acute kidney injury) GERD (gastroesophageal reflux disease) Diabetes Osteoarthritis Hyperlipidemia Hypertension JOVANNI (obstructive sleep apnea) Surgical History Hx of cataract surgery Status post total knee replacement, right History of arthroplasty of right knee Hx of colonoscopy H/O: hysterectomy History of salpingoophorectomy History of tonsillectomy Family History Father HTN (hypertension) Mother HTN (hypertension) CVD (cardiovascular disease) Daughter Bone cancer Father Cancer Social History Household Members: Family Housing: House Are you a primary patient care associate to a significant other at home: No Do you presently have visiting nurse or other home services: No Unable to assess alcohol history related to: Unknown Alcohol intake: never Comment: family at bedside Patient Tobacco Use Status: Never used Tobacco e-Cigarette/Vaping Use: Never Used Second Hand Smoke Exposure: No service: No Current occupational status: retired Current occupation: Right handed Physical Exam Vital Signs: Last Vital Signs Pulse 72 02/25/25 13:46 BP 110/68 02/25/25 13:46 Pulse Ox 95 02/25/25 13:46 Oxygen Delivery Method Room Air 02/25/25 13:46 Comfortable Neck supple no JVD. Lungs entry equal no rales. Heart S1-S2 heard no gallop or rub. Abdomen soft nontender. Neuro alert awake oriented. No asterixis. Extremities no edema. Results Reviewed Nephrology Results: Hgb, (12.0-16.0) 10.4 g/dl L 01/15/25 WBC, (4.8-10.8) 6.8 X10*3/uL 01/15/25 Plt Count, (160-400) 292 X10*3/uL Δ 01/15/25 Sodium, (135-145) 143 mmol/L 01/15/25 Potassium, (3.3-5.1) 3.4 mmol/L 01/15/25 Chloride, (96-108) 105 mmol/L 01/15/25 Carbon Dioxide, (22-29) 31 mmol/L H 01/15/25 BUN, (9-16) 21 mg/dL H 01/15/25 Creatinine, (0.5-1.4) 1.21 mg/dL 01/15/25 Calcium, (8.4-10.2) 9.8 mg/dL 01/15/25 Renal US 12/08/24 Assessment & Plan Assessment & Plan (1) CKD (chronic kidney disease): Code(s): N18.9 - Chronic kidney disease, unspecified Category: Medical Qualifiers: Chronic kidney disease stage: stage 3 (moderate) Chronic kidney disease stage 3 subtype: stage 3b (GFR 30-44) Qualified Code(s): N18.32 - Chronic kidney disease, stage 3b (2) Chronic diastolic heart failure: Code(s): I50.32 - Chronic diastolic (congestive) heart failure Category: Medical Plan (1) Renal insufficiency: s/p MARIA R superimposed on CKD CKD 3- at baseline Maria R most likely due to hypoperfusion No obstruction based on USG Urine- [place]- doubt AGN/AIN s/p Hyperkalemia Resolved Keep Losartan Watch K Keep I > O Coding Level of Care Code Est Pt Level 4 (54011) Diagnoses Stage 3b chronic kidney disease N18.32 Chronic kidney disease stage: stage 3 (moderate) Chronic kidney disease stage 3 subtype: stage 3b (GFR 30-44) Chronic diastolic heart failure I50.32
[2025-02-25 13:46] VITALS: BP 110/68; PULSE 72; O2SAT 95
--- OUTSIDE RECORDS SUMMARY | 2025-02-25 14:31 | XMS_ITS | Encounter Summary ---
Author Organization [employer] Address [address] [place] [address] Care Team Providers Care Organic Gardening Teacher Name Role Phone Name, Balta MAYER Primary Care Provider [phone] Encounter Details Date Type Department Care Team (Late st Contact Info) Description 07/20/2024 Community Care Management [facility] MEDICINE [address] [place] [address] Epiccare Link, Physician, Social History Tobacco Use [...] Care Team (Late st Contact Info) Description 03/26/2025 10:00 AM EDT Clinical Support [facility] MEDICINE [address] [place] [id number] 05/14/2025 10:45 AM EST Office Visit [facility] MEDICINE [address] [place] [phone] Name, MD Balta [address] [place] [phone] 06/19/2025 10:00 AM EST Office Visit [facility] OPTOMETRY [address] [place] [address] Harry, Esther, OD [address] [place] [address] documented as of this encounter Visit Diagnoses Not on filedocumented in this encounter Additional Health Concerns Assessment Noted Time PHQ-9 Depression Total Score: 0 09/20/19 24 1:15 PM EDT documented as of this encounter Care Teams Organic Gardening Teacher Relationship Specialty Start Date End Date Name, MD Balta [address] [place] [id number] PCP - General Internal Medicine 06/14/22 Qulin AKASHA 08/05/24 documented as of this encounter
--- OUTSIDE RECORDS SUMMARY | 2025-02-25 14:31 | XMS_ITS | Clinical Summary ---
Author Organization [facility] Address [address] [address] Phone Care Team Providers Care Scaling Machine Operator Name Role Phone Pcp, Unknown Primary Care Provider Unavailabl e Allergies Active Allergy Reactions Criticality Noted Date Comments Penicillins Hives 07/08/2023 Medications amLODIPine (NORVASC) 10 MG tablet Take 10 mg by mouth nightly at bedtime. Active aspirin 81 MG EC tablet Take 81 mg by mouth daily. Active atorvastatin (LIPITOR) 40 MG tablet Take 40 mg by mouth daily. Active carvedilol (COREG) 12.5 MG tablet Take 12.5 mg by mouth 2 (two) times a day. Active losartan (COZAAR) 100 MG tablet Take 100 mg by mouth daily. Active furosemide (LASIX) 40 MG tablet Take 40 mg by mouth. Active apixaban (ELIQUIS) 5 mg tablet Take 5 mg by mouth 2 (two) times a day. Active cetirizine (ZYRTEC) 10 MG tablet Take 10 mg by mouth daily. Active metFORMIN (GLUCOPHAGE) 500 MG tablet Take 250 mg by mouth 2 (two) times a day. One with breakfast and one at dinner Active oxyBUTYnin (DITROPAN) 5 MG tablet Take 5 mg by mouth 3 (three) times a day. Twice daily in the morning and one at bedtime as needed Active vibegron (GEMTESA) 75 mg tablet Take 75 mg by mouth daily. Active Social History Tobacco Use Types Packs/Day Years Used Date Smoking Tobacco: Never Assessed Education Answer Date Recorded Are you interested in more education? Not on pedro luis e 07/08/2023 Are you concerned about learning? Not on file 07/08/2023 No 07/08/2023 No 07/08/2023 Digital Access Answer Date Recorded No 07/08/2023 No 07/08/2023 Reliable internet access at home? Not on file 07/08/2023 Device with a working camera? Not on file Intimate Partner Violence Answer Date R ecorded Are you denied basic needs s uch as food, clothing, or medical care? No 07/08/2023 In the past 12 months have y ou been in a relationship with a person who hurts, threatens, or tries to control you? No 07/08/2023 Are you denied basic needs s uch as food, clothing, or medical care? No 07/08/2023 In the past 12 months have y ou been in a relationship with a person who hurts, threatens, or tries to control you? No 07/08/2023 Comments Unknown Sex and Gender Information Value Date Recorded Sex Assigned at Not on file Legal Sex Female 3:10 PM EST Gender Identity Not on file Sexual Orientation Not on file Last Filed Vital Signs Vital Sign Reading Time Taken Comments Blood Pressure 139/62 07/08/2023 9:07 PM EST Pulse 69 07/08/2023 9:07 PM EST Temperature 36.7 C (98.1 F) 07/08/2023 9:07 PM EST Respiratory Rate 20 07/08/2023 9:07 PM EST Oxygen Saturation 96% 07/08/2023 9:07 PM EST Inhaled Oxygen Concentration - - Weight 84.8 kg (187 lb) 07/08/2023 3:23 PM EST Height 157.5 cm (5' 2 ) 07/08/2023 3:23 PM EST Body Mass Index 34.2 07/08/2023 3:23 PM EST Plan of Treatment Health Maintenance Due Date Last Done Comments CREATININE LEVEL 1943 POTASSIUM LEVEL 1943 DEPRESSION SCREENING 1955 ZOSTER VACCINES (1 of 2) 11/11/1993 OSTEOPOROSIS SCREENING INITI AL (ONE-TIME) 11/11/2008 RSV VACCINE (1 - 1-dose 75+ series) 11/11/2018 PNEUMOCOCCAL VACCINES (50+ years) (2 of 2 - PCV) 08/30/2020 08/30/2019, 05/12/2016 COVID-19 VACCINE (2023-2 5 season) 2024 Adult Td,Tdap Booster 08/30/2029 08/30/2019 HEPATITIS A VACCINES Aged Out No long er eligible based on patient's age to complete this topic HIB VACCINES Aged Out No longer eligi ble based on patient's age to complete this topic MENINGOCOCCAL VACCINES (ACWY) Aged Out No longer eligible based on patient's age to complete this topic MENINGOCOCCAL VACCINES (B) Aged Out N o longer eligible based on patient's age to complete this topic Medical Devices Not on file Insurance [facility] MEDICARE REPLACEMENT MIROSLAVA STRAUSS [id number] Care Teams Scaling Machine Operator Relationship Specialty Start Date End Date Pcp, Unknown PCP - General 07/08/23 Additional Source Comments The information contained in this document represents components of the legal health record. It is not the complete legal health record.[facility]
== END 2025-02-25 14:04 | disposition home or self-care (01) ==
LOC: HO.HKA 13:37
PROVIDERS: PCP Internal Medicine Geriatric Medicine; Visit Provider Internal Medicine Hypertension Specialist
DX: N18.32 Chronic kidney disease, stage 3b (principal); I50.32 Chronic diastolic (congestive) heart failure
CPT/HCPCS: 99214

== ENCOUNTER → 2025-02-25 13:37 | Outpatient (BNVA) | payer OTHER, SELFPAY | PROVIDERS: PCP Internal Medicine Geriatric Medicine; Visit Provider Internal Medicine Hypertension Specialist | DX: N18.32 Chronic kidney disease, stage 3b (principal); I50.32 Chronic diastolic (congestive) heart failure | CPT/HCPCS: 99212 ==

== ENCOUNTER 2025-03-27 13:11 | Outpatient (AMB) | payer OTHER, SELFPAY ==
--- OUTSIDE RECORDS SUMMARY | 2024-08-13 09:00 | XMS_ITS | Continuity of Care Document ---
Author Organization [facility] Address [address] [place] [address] Phone Care Team Providers Care Paper Roller Name Role Phone MD LEYLA Schreiber, Julia [...] Copied on Encounter [facility], [address], [place], [place], [id number], [place] tel:[phone] [facility] blurry vision (chief complaint) Combined forms of age-related cataract, bilateralDry eye syndrome of bilateral lacrimal glandsOpen angle with borderline findings, high risk, bilateral MD Julia Kitchen. [address] [facility], [place], [place], [address] , [place]. tel: [phone] Referring Provider: Del Camp MD, [facility] [address] , [place], [address]. tel:[phone] Family History Family Member Type Diagnosis Age At Onset No Information Payers Payer name Insurance type Covered democrat ID randy goff(s) [facility] [id number] Social History Type Description Quantity Date Captured [...]
--- OUTSIDE RECORDS SUMMARY | 2025-03-26 10:00 | XMS_ITS | Encounter Summary ---
Author Organization [employer] Address [address] [place] [address] Care Team Providers Care Production Corrugator Name Role Phone Name, Balta MAYER Primary Care Provider [phone] Reason for Visit * Reason Comments B12 Injection Encounter Details Date Type Department Care Team (Latest Contact Info) Description 03/26/2025 10:00 AM EDT Clinical Support [facility] MEDICINE [address] [place], [place] [phone] Cindy Ly RN [address] [place] [address] Cobalamin deficiency Social History Tobacco Use Types Packs/Day [...] Answer Date Recorded Patient Health Questionnaire-9 Score 10 01/21/2025 Patient Health Questionnaire-9 Score 10 01/21/2025 Last PHQ-9: Questionnaire Data Not on file 0 01/21/2025 Housing Stability Answer Date Recorded What is your housing situation today? I have billy robbins 01/21/[address] you li ve. Do you have problems with any of the following? None of the above 01/21/2025 Food Insecurity Answer Date Recorded Within the past 12 months, y ou worried that your food would run out before you got money to buy more: Never True 01/21/2025 Within the past 12 months,th e food you bought just didn't last and you didn't have enough money to get more: Never True Transportation Answer Date Recorded In the past 12 months, has l ack of transportation kept you from medical appts, meetings, work or from getting things needed for daily living? No 01/21/2025 Utilities Answer Date Recorded In the past 12 months, has t he electric, gas, oil or water company threatened to shut off services in your home? No 01/21/2025 Depression Answer Date Recorded Patient Health Questionnaire-2 Score 2 01/21/2025 Internet Access Answer Date Recorded Internet Access Q1 Yes 01/21/2025 Internet Access Q2 Not on file 01/21/2025 Comments Unknown Sex and Gender Information Value Date Recorded Sex Assigned at Female 05/10/2022 10:17 AM EDT Legal Sex Female 10:17 AM EDT Gender Identity Female 05/10/2022 10:17 AM EDT Sexual Orientation Straight 05/10/2022 10 :17 AM EDT documented as of this encounter Progress Notes * Cindy Ly RN - 03/26/2025 10:00 AM EDT S: Pt here for nurse visit for Vitamin B-12 Injection. Pt states that she feels well today. O: Standing order verified. A: Pt tolerated IM injection to right deltoid well. No adverse reaction noted. P: Pt advised of upcoming nurse visit for Vitamin B-12 Injection and given appointment reminder card. Pt verbalized understanding and states agreement with plan. documented in this encounter Plan of Treatment Upcoming Encounters Date Type Department Care Team (Late st Contact Info) Description 04/25/2025 1:00 PM EDT Clinical Support [facility] MEDICINE [address] [place] [phone] 05/14/2025 10:45 AM EST Office Visit [facility] MEDICINE [address] [place] [phone] Name, MD Balta [address] [place] [address] 06/19/2025 10:00 AM EST Office Visit [facility] OPTOMETRY [address] [place] [phone] Esther Mcdonald, OD [address] [place] [address] documented as of this encounter Visit Diagnoses Diagnosis Cobalamin deficiency Other B-complex deficiencies documented in this encounter Administered Medications Active Administered Medications - up to 3 most recent administrations Medication Order MAR Action Action Date Dose Rate Site cyanocobalamin (Vitamin B-12) injection 1,000 mcg 1,000 mcg, Intramuscular, Every 30 days, First dose on 09/22/24 at 0900, For 12 dosesIndications:Cobalami n deficiency Given 03/26/2025 9:50 AM EDT 1,000 mcg Right Deltoid Given 02/22/2025 10:05 AM EDT 1,000 mcg R ight Deltoid Given 01/21/2025 9:00 AM EDT 1,000 mcg Le ft Deltoid documented in this encounter Additional Health Concerns Assessment Noted Time PHQ-9 Depression Total Score: 10 025 10:31 AM EDT documented as of this encounter Care Teams Production Corrugator Relationship Specialty Start Date End Date Name, MD Balta [address] [place] [address] PCP - General Internal Medicine 06/14/22 [facility] 08/05/24 documented as of this encounter
[2025-03-27 13:20] VITALS: BP 122/62; PULSE 62; BMI 34.1
--- NOTE | 2025-03-27 13:20 | A.OFFVIS_ITS ---
Vital Signs 03/27/25 13:20 Height 5 ft 4 in Weight 198 lb 13.711 oz BMI 34.1 BP 122/62 Blood Pressure Location Lt brachial Position Sitting Pulse 62 Pulse Source Pulse Oximeter Intake Visit Reasons: 6 mth / Community Development Planner Required: Yes Community Development Planner Name: Maximiliano [place] [id number] Accompanied by: Son Allergies Penicillins (PENICILLINS) Allergy (Intermediate, Verified 03/27/25 13:26) NAUSEA/HIVES metformin Adverse Reaction (Unknown, Verified 03/27/25 13:26) Diarrhea Medication List - Last Reconciled 03/27/25 by Tonio Laws NP acetaminophen 650 mg (2 x 325 mg) PO Q6H PRN 30 days amlodipine 2.5 mg PO DAILY apixaban (Eliquis) 5 mg PO BID atorvastatin 40 mg PO BEDTIME blood pressure monitor As directed calcium carbonate 600 mg PO DAILY cetirizine 10 mg PO DAILY cholecalciferol (vitamin D3) 1 tab PO DAILY cyanocobalamin (vitamin B-12) 1,000 mcg IM Q28D docusate sodium (Stool Softener) 100 mg PO DAILY empagliflozin (Jardiance) 10 mg PO DAILY ferrous gluconate 324 mg PO DAILY fluticasone propionate 50 mcg/actuation 1 - 2 sprays intranasal DAILY PRN hydrochlorothiazide 12.5 mg PO QAM losartan 25 mg PO BID magnesium hydroxide (Silva Milk of Magnesia) 5 mL PO BEDTIME metoclopramide HCl (Reglan) 10 mg PO QIDACHS omeprazole 40 mg PO BID@0630,1630 oxybutynin chloride 5 mg PO BID walker Folding front wheeled walker HPI Comments Details: This is an 79-year-old female patient coming in for a follow-up visit, accompanied by her POWER SUPPLY ENGINEER. A wood products manufacturer was used throughout the visit. Patient with a history of hypertension, hyperlipidemia, sleep apnea, diastolic heart failure, and AFib is presenting today in a wheelchair. In the last couple of visits, patient has been having issues with blood pressure management and therefore medications were adjusted accordingly. Today, patient is reporting feeling well overall without any cardiac symptoms of exertional chest pain, shortness of breath, palpitations, dizziness, orthopnea, PND, leg edema, presy ncope or syncope. Patient reports that she is trying to be more active and is exercising daily at home. The estate planning counselor confirm this for which patient was commended. Patient is otherwise reporting compliance with all her medications. [facility] Medical History Diarrhea Diverticulitis Abdominal bloating Epigastric pain Chronic diastolic heart failure Hydronephrosis, right Ureteral stone Dementia Calculus of proximal right ureter CKD (chronic kidney disease) Renal insufficiency Tubular adenoma of colon Preop cardiovascular exam Urinary urgency Pneumonia Hospital discharge follow-up Asthma MARIA R (acute kidney injury) GERD (gastroesophageal reflux disease) Diabetes Osteoarthritis Hyperlipidemia Hypertension JOVANNI (obstructive sleep apnea) Surgical History Hx of cataract surgery Status post total knee replacement, right History of arthroplasty of right knee Hx of colonoscopy H/O: hysterectomy History of salpingoophorectomy History of tonsillectomy Family History Father HTN (hypertension) Mother HTN (hypertension) CVD (cardiovascular disease) Daughter Bone cancer Father Cancer Social History Household Members: Family Housing: House Are you a primary patient care representative to a significant other at home: No Do you presently have visiting nurse or other home services: No Unable to assess alcohol history related to: Unknown Alcohol intake: never Comment: family at bedside Patient Tobacco Use Status: Never used Tobacco e-Cigarette/Vaping Use: Never Used Second Hand Smoke Exposure: No service: No Current occupational status: retired Current occupation: Right handed Review of Systems Const Denies daytime sleepiness, Denies difficulty sleeping, Denies snoring, Denies stops breathing during sleep and Denies weakness Card Denies chest pain, Denies rapid heart rate, Denies irregular heart rhythm, Denies claudication, Denies leg edema, Denies lightheadedness, Denies palpitations, Denies dyspnea, Denies dyspnea on exertion, Denies orthopnea, Denies paroxysmal nocturnal dyspnea and Denies slow heart rate Resp Denies cough, Denies dyspnea, Denies dyspnea on exertion and Denies snoring GI Reports no additional complaints, Denies hematochezia, Denies change in stool character and Denies dyspepsia Musc Denies abnormal gait, Denies muscle weakness and Denies numbness Neuro Denies abnormal gait, Denies numbness and Denies weakness Endo Denies palpitations Physical Exam Vital Signs: Last Vital Signs Pulse 62 03/27/25 13:20 BP 122/62 03/27/25 13:20 BMI result Body Mass Index 34.1 Const General: cooperative, healthy appearing, comfortable and no acute distress Orientation/consciousness: patient oriented x3 HEENT Head: Yes normal to inspection Neck Neck: Yes normal visual inspection, Yes trachea midline and Yes supple Chest Chest palpation & inspection: normal inspection of the chest Resp Effort & Inspection: normal respiratory effort Auscultation: clear to auscultation bilaterally, no crackles, no rales, no rhonchi and no wheezes Cardio Jugular venous distension: no JVD Palpation: normal PMI Rate: bradycardic Rhythm: regular rhythm Heart sounds: S1 normal heart sound present, S2 normal heart sound present, no click, no gallops, no murmurs and no rubs Peripheral pulses: Peripheral pulses 2+ throughout GI Inspection: Yes normal to inspection Palpation (GI): Soft to palpation Auscultation: normal bowel sounds Skin General skin exam: no rashes or lesions noted Neuro General: patient oriented x3 Extrem General: Yes normal to inspection, No no pedal edema and No calf tenderness Psych Appearance: grossly normal Mental Status: mental status grossly normal Speech and movement: Normal speech and movement present Assessment & Plan Assessment & Plan (1) Atrial fibrillation: Code(s): I48.91 - Unspecified atrial fibrillation Category: Medical Plan: History of paroxysmal AFib. Heart rate is regular today. Continue Eliquis for full anticoagulation. No reported signs of bleeding or falls. Patient was previously on beta blockers which was stopped due to bradycardia. Patient's rate is between normal limits. Labs stable and will be monitored periodically. (2) Chronic diastolic heart failure: Code(s): I50.32 - Chronic diastolic (congestive) heart failure Category: Medical Plan: Clinically euvolemic and stable. Continue hydrochlorothiazide. Patient has a an appointment for updating her echo in the next month. Discussed low-salt diet, daily weight monitoring, and fluid restriction at 2 L daily. Discussed signs and symptoms to watch for with heart failure. (3) Hypertension: Code(s): I10 - Essential (primary) hypertension Category: Medical Plan: Patient's blood pressure today is well-controlled. Patient's POWER SUPPLY ENGINEER shows blood pressure recordings at home between 130-140 systolic. There is 1 or 2 episodes where blood pressure is in the 160s, however the POWER SUPPLY ENGINEER notes that these blood pressures were taken after exercising. Patient does develop dizziness with low blood pressures quickly and therefore at this time no medication changes. Advised continuing monitoring blood pressures at home. Ideally, blood pressure goal less than 130/80. (4) JOVANNI (obstructive sleep apnea): Code(s): G47.33 - Obstructive sleep apnea (adult) (pediatric) Category: Medical Plan: Does not use CPAP therapy. Emphasized the importance of CPAP therapy. (5) Hyperlipidemia: Code(s): E78.5 - Hyperlipidemia, unspecified Category: Medical Plan: Continue statin therapy. LDL goal less than 70. Advised heart healthy diet, regular exercise as tolerated, med compliance, and management of her vascular risk factors. We will follow up in 6 months. In the interim, patient will call us with any concerns or change in symptoms. This note was generated using voice recognition software. While every effort has been made to ensure accuracy and proper rolling mill plugger, there may be occasional errors that could affect the content or meaning of the described symptoms. Coding Level of Care Code Est Pt Level 4 (02356) Complex EM visit Add On G2211 Diagnoses Atrial fibrillation I48.91 Chronic diastolic heart failure I50.32 Hypertension I10 JOVANNI (obstructive sleep apnea) G47.33 Hyperlipidemia E78.5 Time Spent (min) 32 Comment Time spent in reviewing the chart, test results, assessment, counseling and documentation.
--- OUTSIDE RECORDS SUMMARY | 2025-03-27 16:50 | XMS_ITS | Encounter Summary ---
Author Organization [employer] Address [address] [facility] [address] [place] [address] Care Team Providers Care Blue Split Trimmer Name Role Phone Name, Balta MAYER Primary Care Provider Encounter Details Date Type Department Care Team (Late st Contact Info) Description 04/20/2023 Abstract [facility] MEDICINE [address] [place] [address] Name, MD Balta [address] [place] [address] Social History Tobacco Use Types Packs/Day Years Used Date Smoking Tobacco: Never Smokeless Tobacco: Never Alcohol Use Standard Drinks/Week Comments Never 0 (1 standard drink = 0.6 oz pur e alcohol) Depression Answer Date Recorded Patient Health Questionnaire-9 Score 4 08/31/2022 Housing Stability Answer Date Recorded What is your housing situation today? I have billy robbins 04/20/[address] you [...] Description 04/25/2025 1:00 PM EDT Clinical Support [facility] MEDICINE [address] [place] [address] 05/14/2025 10:45 AM EST Office Visit [facility] MEDICINE [address] [place] [address] Name, MD Balta [address] [place] [address] 06/19/2025 10:00 AM EST Office Visit [facility] OPTOMETRY [address] [place] [address] Harry, Esther, OD 230 [place] [address] documented as of this encounter Visit Diagnoses Not on filedocumented in this encounter Additional Health Concerns Assessment Noted Time PHQ-9 Depression Total Score: 4 08/31/19 23 10:26 AM EST documented as of this encounter Care Teams Blue Split Trimmer Relationship Specialty Start Date End Date Name, MD Balta [address] [place] [phone] PCP - General Internal Medicine 06/14/22 [facility] 08/05/24 documented as of this encounter
--- OUTSIDE RECORDS SUMMARY | 2025-03-27 16:50 | XMS_ITS | Encounter Summary ---
Author Organization [employer] Address [address] [facility] [address] 7[address] [place] [address] Care Team Providers Care Nurse Practitioner Name Role Phone Name, Balta MAYER Primary Care Provider [phone] Encounter Details Date Type Department Care Team (Latest Contact Info) Description 03/26/2025 Travel Social History Tobacco Use Types Packs/Day Years [...] Description 04/25/2025 1:00 PM EDT Clinical Support [facility] MEDICINE [address] [place] [address] 05/14/2025 10:45 AM EST Office Visit [facility] MEDICINE [address] [place] [phone] Name, MD Balta 230 [place] [address] 06/19/2025 10:00 AM EST Office Visit [facility] OPTOMETRY [address] [place] [address] Harry, Esther, OD 230 [place] [address] documented as of this encounter Visit Diagnoses Not on filedocumented in this encounter Additional Health Concerns Assessment Noted Time PHQ-9 Depression Total Score: 10 025 10:31 AM EDT documented as of this encounter Care Teams Nurse Practitioner Relationship Specialty Start Date End Date NameBalta MD [address] [place] [phone] PCP - General Internal Medicine 06/14/22 [facility] 08/05/24 documented as of this encounter
--- OUTSIDE RECORDS SUMMARY | 2025-03-27 16:50 | XMS_ITS | Encounter Summary ---
Author Organization [employer] Address [address] [facility] [address] 7[address] [place] [address] Care Team Providers Care Music Journalist Name Role Phone Name, Balta MAYER Primary Care Provider [phone] Encounter Details Date Type Department Care Team (Late st Contact Info) Description 07/20/2024 Community Care Management [facility] MEDICINE [address] [place] [address] Epic[employer] Link, Physician, Social History Tobacco Use [...] Description 04/25/2025 1:00 PM EDT Clinical Support [facility] MEDICINE [address] [place] [address] 05/14/2025 10:45 AM EST Office Visit [facility] MEDICINE [address] [place] [phone] Name, MD Balta [address] [place] [address] 06/19/2025 10:00 AM EST Office Visit [facility] OPTOMETRY [address] [place] [address] Harry, Esther, OD 230 [place] [address] documented as of this encounter Visit Diagnoses Not on filedocumented in this encounter Additional Health Concerns Assessment Noted Time PHQ-9 Depression Total Score: 0 09/20/19 24 1:15 PM EDT documented as of this encounter Care Teams Music Journalist Relationship Specialty Start Date End Date Name, MD Balta [address] [place] [address] PCP - General Internal Medicine 06/14/22 [facility] 08/05/24 documented as of this encounter
--- OUTSIDE RECORDS SUMMARY | 2025-03-27 16:50 | XMS_ITS | Encounter Summary ---
Author Organization [employer] Address [address] [facility] [address] 7[address] [place] [address] Care Team Providers Care Agency Director Name Role Phone Name, Balta MAYER Primary Care Provider [phone] Reason for Visit * Reason Comments Med Refill Encounter Details Date Type Department Care Team (Late st Contact Info) Description 03/05/2024 Refill [facility] [address] [place], [place] [phone] Name, MD Balta [address] [place], [place] [phone] Social History Tobacco Use Types Packs/Day Years [...] enough money to get more: Never True 03/ 06/2024 Transportation Answer Date Recorded In the [...] Description 04/25/2025 1:00 PM EDT Clinical Support [facility] MEDICINE [address] [place] [phone] 05/14/2025 10:45 AM EST Office Visit [facility] MEDICINE [address] [place] [address] Name, MD Balta [address] [place] [address] 06/19/2025 10:00 AM EST Office Visit [facility] OPTOMETRY [address] [place] [address] Harry, Esther, OD 230 [place] [address] documented as of this encounter Visit Diagnoses Not on filedocumented in this encounter Additional Health Concerns Assessment Noted Time PHQ-9 Depression Total Score: 0 09/20/19 24 1:15 PM EDT documented as of this encounter Care Teams Agency Director Relationship Specialty Start Date End Date Balta Jeffrey MD [address] [place] [address] PCP - General Internal Medicine 06/14/22 [facility] documented as of this encounter
--- OUTSIDE RECORDS SUMMARY | 2025-03-27 16:50 | XMS_ITS | Encounter Summary ---
Author Organization [employer] Address [address] [facility] [address] [place] [address] Care Team Providers Care Party Plan Selling Distributor Name Role Phone Name, Balta MAYER Primary Care Provider [phone] Reason for Visit * Reason Onset Date Comments Hospital Follow-up 10/18/2024 Encounter Details Date Type Department Care Team (Late st Contact Info) Description 10/18/2024 Telephone [facility] MEDICINE [address] [place], [place] [phone] Name, MD Balta [address] [place] [address] Hospital Follow-up Social History Tobacco Use Types [...] - 10/18/2024 1:12 PM EDT Tc from transitional care nurse Victorina requesting a HDF appt. [place] [facility] [place] Date of admission: 10/08/24 Discharge date: 10/16/24 Diagnosed: Kidney stones and blood infection Contact pt daughter at [phone] (latvian) documented in this encounter Plan of Treatment Upcoming Encounters Date Type Department Care Team (Late st Contact Info) Description 04/25/2025 1:00 PM EDT Clinical Support [facility] MEDICINE [address] [place] [address] 05/14/2025 10:45 AM EST Office Visit [facility] MEDICINE [address] [place] [address] Name, MD Balta [address] [place] [address] 06/19/2025 10:00 AM EST Office Visit [facility] OPTOMETRY [address] [place] [address] Esther Mcdonald, OD 230 [place] [address] documented as of this encounter Visit Diagnoses Not on filedocumented in this encounter Additional Health Concerns Assessment Noted Time PHQ-9 Depression Total Score: 0 09/20/19 24 1:15 PM EDT documented as of this encounter Care Teams Party Plan Selling Distributor Relationship Specialty Start Date End Date Name, MD Balta [address] [place] [address] PCP - General Internal Medicine 06/14/22 [facility] 08/05/24 documented as of this encounter
--- OUTSIDE RECORDS SUMMARY | 2025-03-27 16:50 | XMS_ITS | Encounter Summary ---
Author Organization [id number] Address [address] [facility] [address] [place] [address] Care Team Providers Care Hair Baler Name Role Phone Name, Balta MAYER Primary Care Provider Reason for Visit * Reason Onset Date Comments ER Follow-up 08/06/2024 Encounter Details Date Type Department Care Team (Late st Contact Info) Description 08/06/2024 Telephone [facility] MEDICINE [address] [place], [place] [phone] Name, MD Balta [address] [place] [address] ER Follow-up Social History Tobacco Use Types [...] from pt requesting a HDF appt. Hospital: [facility] Date of admission: 07/24/24 Discharge date: 08/02/24 Diagnosed: Acute Dysphagia *Send message to Portal Clinical Care Coordinators documented in this encounter Plan of Treatment Upcoming Encounters Date Type Department Care Team (Late st Contact Info) Description 04/25/2025 1:00 PM EDT Clinical Support [facility] MEDICINE [address] [place] [address] 05/14/2025 10:45 AM EST Office Visit [facility] MEDICINE [address] [place] [address] Name, MD Balta [address] [place] [address] 06/19/2025 10:00 AM EST Office Visit [facility] OPTOMETRY [address] [place] [address] Esther Mcdonald, OD [address] [place] [address] documented as of this encounter Visit Diagnoses Not on filedocumented in this encounter Additional Health Concerns Assessment Noted Time PHQ-9 Depression Total Score: 0 09/20/19 24 1:15 PM EDT documented as of this encounter Care Teams Hair Baler Relationship Specialty Start Date End Date Name, MD Balta 230 [place] [address] PCP - General Internal Medicine 06/14/22 [facility]ir [facility] 08/05/24 documented as of this encounter
--- OUTSIDE RECORDS SUMMARY | 2025-03-27 16:50 | XMS_ITS | Clinical Summary ---
Author Organization [facility] Address [address] [address] Phone Care Team Providers Care Bus Driver/Monitor Name Role Phone Pcp, Unknown Primary Care [...] of 2 - PCV) 08/30/2020 08/30/2019, 05/12/2016 INFLUENZA VACCINE (#1) 2025 COVID-19 VACCINE ( - 2023-2 5 season) 2025 Adult Td,Tdap Booster 08/30/2029 08/30/2019 HEPATITIS A [...] topic Medical Devices Not on file Insurance MIROSLAVA STRAUSS [id number] [facility] REPLAC[facility] MIROSLAVA STRAUSS [id number] Care Teams Bus Driver/Monitor Relationship Specialty Start Date End Date Pcp, Unknown PCP - General 07/08/23 Additional Source Comments The information contained in this document represents components of the legal health record. It is not the complete legal health record.[facility]
--- OUTSIDE RECORDS SUMMARY | 2025-03-27 16:50 | XMS_ITS | Clinical Summary ---
Author Organization [employer] Address [address] [place] [address] Care Team Providers Care Ethernet Network Architect Name Role Phone Name, Balta MAYER Primary Care Provider [phone] Allergies Active Allergy Reactions Criticality Noted Date Comments Metformin Diarrhea 07/24/2024 abdominal pain Penicillin G 06/07/2017 Other reaction(s): itchiness Penicillins Hives,Nausea High 10/11/2022 Other reaction(s): NAUSEA/HIVES Other Reaction(s): NAUSEA/HIVES Medications * This document contains information received from the source organization and may not represent a complete record from that organization. atorvastatin (Lipitor) 40 MG tablet Take 1 tablet by mouth at bed time. Active docusate sodium (Colace) 100 MG capsule take 1 Tablet by Oral route 2 times every day - PURCHASING OTC Active furosemide (Lasix) 40 MG tablet Take 1 tablet by mouth in the morning. 11/17/19 22 Active fluticasone (Flonase) 50 MCG/ACT nasal sprayIndications :Sinus congestion INSTILL 1-2 SPRAYS IN EACH NOSTRIL ONCE DAILY NEEDED 48 g 05/23/20 23 Active Jardiance 10 MG Take 10 mg by mouth in the morning. 02/22/20 24 Active calcium carbonate 1500 (600 Ca) MG tabletIndication s:Vitamin D deficiency TAKE 1 TABLET BY MOUTH EVERY MORNING 90 tablet 3 07/31/19 25 Active Eliquis 5 MG tablet Take 1 tablet (5 mg) by mouth 2 times daily. 11/03/19 25 Active cyanocobalamin (Vitamin B-12) 1000 MCG/ML injection INJECT 1 ML INTRAMUSCULARLY EVERY MONTH DIRECTED 1 mL 11 11/17/19 25 Active cetirizine (ZyrTEC) 10 MG tablet TAKE 1 TABLET BY MOUTH EVERY MORNING 30 tablet 5 11/17/19 25 Active ferrous gluconate (Fergon) 324 (38 Fe) MG tablet TAKE 1 TABLET BY MOUTH EVERY MORNING 90 tablet 1 11/23/19 25 Active oxybutynin (Ditropan) 5 MG tabletIndication s:Urge incontinence TAKE 1 TABLET BY MOUTH TWICE DAILY IN THE MORNING AND IN THE EVENING NEEDED 180 tablet 1 11/23/19 25 Active cholecalciferol (Vitamin D-3) 25 MCG tablet TAKE 1 TABLET BY MOUTH EVERY MORNING 90 tablet 3 11/23/19 25 Active amLODIPine (Norvasc) 2.5 MG tablet Take 1 tablet (2.5 mg) by mouth Once per day. 30 tablet 11 12/15/19 25 026 Active glucose 4 g chewable tablet CHEW 4 TABLETS NEEDED FOR low blood sugar (LESS THAN 70mg/dL) Active hydroCHLOROthiaz kelle 12.5 MG tablet Take 12.5 mg by mouth in the morning. Active Linzess 145 MCG capsule Take 145 mcg by mouth in the morning. Active losartan (Cozaar) 25 MG tablet TAKE 1 TABLET BY MOUTH TWICE DAILY IN THE MORNING AND IN THE EVENING Active metoclopramide (Reglan) 10 MG tablet TAKE 1 TABLET BY MOUTH FOUR TIMES DAILY BEFORE MEALS AND AT BEDTIME Active spironolactone (Aldactone) 25 MG tablet Take 1 tablet by mouth Once per day. Activ e TRUEplus Lancets 33G miscIndications: 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) ([facility]) USE DIRECTED TO TEST BLOOD SUGAR TWICE DAILY 100 each 02/06/20 25 Active FREESTYLE LITE test stripIndications :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) ([facility]) USE DIRECTED TO TEST BLOOD SUGAR TWICE DAILY 100 strip 02/06/20 25 Active omeprazole (PriLOSEC) [address] capsule TAKE 1 CAPSULE BY MOUTH TWICE DAILY IN THE MORNING AND IN THE EVENING 180 capsule 02/08/20 25 Active Alcohol Swabs (Alcohol Prep) 70 % pads USE DIRECTED TWICE DAILY 100 each 02/16/20 25 Active Hospital, Clinic, or Other Facility [...] Active Problems Problem Noted Date Diagnosed Date Depression 01/21/2025 Pinguecula of right eye 12/31/2024 Obesity (BMI 30-39.9) 09/19/2024 UTI (urinary tract [...] paperwork for treatment duration of 90 days Lymphedema 03/29/2023 CKD (chronic kidney disease) 03/29/2023 Atrial fibrillation 11/17/2022 History of arthroplasty of right knee 11/17/2022 Varicose veins of right lower extremity with inf lammation 11/17/2022 Type 2 diabetes mellitus with obesity ([facility]) 08/31/2022 Lentiginosis 10/13/2018 JOVANNI (obstructive sleep apnea) 10/02/2018 Overview (09/19/2024): Not using CPAP Chronic diastolic heart failure 05/25/2018 Overview (09/21/2023): [address] [phone] CARDIOLOGY NAME: RASHID SAMMIE [facility] CERTIFIED NURSING ASSISTANT: QUINTANILLA UNIT #: [id number] PATIENT LOCATION: EKG REFERRING PHYSICIAN: ANIYA BERNARD MD DATE OF : 41 PCP: ANIYA BERNARD MD SEX: Female DATE: 04/20/18 CARD ECHO 2D M MODE W DOPPLER COLOR [phone] SYMPTOMS,HX?: I10 ESSENTIAL HTN; R60.0 LOCALIZED EDEMA Transthoracic Echocardiogram Patient (Last, First, Middle): SAMMIE FRANCOIS E Gender: Female Date of : 1945 Age: 72 Procedure Date: 04/20/2018 Procedure Type: Transthoracic Echocardiogram Location: OP Height: 157.48 cm Weight: 81.65 kg BSA: 1.83 m2 Heart Rate: bpm BP: 144 / 78 mmHg Bulk Plant Agent: [facility] MD: ANIYA BERNARD MD Symptoms: I10 ESSENTIAL [...] of Final JANI IYER MD Report #: [id number] Status: Signed Dict: 04/20/18/ Trans: /SUBRAH DATE PRINTED: //date// TIME PRINTED: //time// COPY TO: //ivnm// //add1// //add2// //add3// Tubular adenoma of colon 05/25/2018 Primary osteoarthritis of both knees 04/21/2018 Hyperlipidemia 04/10/2018 Pernicious anemia 07/20/2017 Chronic idiopathic constipation 07/18/2017 Hypertension 07/18/2017 Cobalamin deficiency 06/16/2017 Vitamin D deficiency 06/16/2017 Resolved Problems Problem Noted Date Diagnosed Date Resolved Date Decreased appetite 11/02/2024 5 Abdominal bloating 09/19/2024 5 Acute hyperkalemia 09/19/2024 Asthma 09/19/2024 01/21/2025 Diarrhea 09/19/2024 01/21/2025 Diverticulitis 09/19/2024 01/21/2025 Dysphagia 09/19/2024 01/21/2025 Epigastric pain 09/19/2024 01/21/2025 MARIA R (acute kidney injury) 09/02/2024 Assessment & Plan (09/03/2024 9:57 AM EST): Resolving Daughter will bring paperwork related to housing to medical records. I agree that pt is no longer medically stable to live alone and should have ramp service agent caregiver available (daughter) Choking 01/05/2024 01/21/2025 Cough 01/05/2024 01/21/2025 Hospital discharge follow-up 01/05/2024 01/21/2025 CHF exacerbation 03/29/2023 03/29/2023 Osteoarthritis of right knee 03/29/2023 09/21/2023 Pneumonia 03/29/2023 01/21/2025 Preop cardiovascular exam 03/29/2023 Urinary urgency 03/29/2023 01/21/2025 Urge incontinence of urine 08/21/2018 0 09/21/2023 Knee pain 07/18/2017 09/21/2023 Tinea pedis 07/18/2017 09/21/2023 Encounters * This document contains information received from the source organization and may not represent a complete record from that organization. Date Type Department Care Team Description 03/27/2025 Telephone [facility] [place] [address] Kanwal Taylor MA Durable Medical Equipment 03/26/2025 10:00 AM EDT Clinical Support [facility] [place] [address] Cindy Ly, JERROD Cobalamin deficiency 03/26/2025 Travel 02/22/2025 10:00 AM EDT Clinical Support [facility] [place] [address] Flores Cabrera RN Cobalamin deficiency 02/22/2025 Telephone [facility] [address] [place] [phone] Kanwal Taylor MA oct recalls 02/22/2025 Travel 02/15/2025 Refill [facility] [address] [place] [address] Balta Jeffrey MD 02/12/2025 Refill [facility] [address] [place] [phone] Balta Jeffrey MD Type 2 diabetes mellitus with obesity ([facility]/HCC) ([facility]/HCC) 02/07/2025 Refill [facility] [address] [place] [phone] Balta Jeffrey MD 02/05/2025 Refill [facility] [address] [place] [phone] Balta Jeffrey MD Type 2 diabetes mellitus with obesity ([facility]/HCC) ([facility]) 01/21/2025 10:00 AM EDT Office Visit [facility] [address] [place] [phone] Balta Jeffrey MD Type 2 diabetes mellitus with obesity ([facility]/HCC) ([facility]) (Primary Dx); Stage 3b chronic kidney disease ([facility]); Urinary tract infection without hematuria, site unspecified; Wheelchair dependent 01/21/2025 Telephone [facility] [address] [place] [phone] Balta Jeffrey MD 01/21/[address] [address] Balta Jeffrey MD B12 Injection 01/21/2025 Travel 01/18/[address] [address] Kanwal Taylor MA chart prep 01/17/2025 Orders Only GENERIC EXTERNAL DATA DEPARTMENT Provider, Generic External Data 01/15/2025 Orders Only GENERIC EXTERNAL DATA DEPARTMENT Provider, Generic External Data 01/14/2025 Patient Outreach [facility] [address] [place], [place] [phone] Balta Jeffrey MD Pre-visit Planning ([facility] unable to complete) 01/09/2025 Orders Only [facility] [address] [place] [address] Name, MD Balta from Last 3 Months Immunizations Immunization Administration Dates Next Due Influenza High-dose Quadriva [...] Sign Reading Time Taken Comments Blood Pressure 164/68 01/21/2025 10:09 AM EDT Pulse 75 01/21/2025 10:09 AM EDT Temperature 35.9 C (96.7 F) 01/21/2025 10:09 AM EDT Respiratory Rate 12 01/21/2025 10:0 9 AM EDT Oxygen Saturation 94% 01/21/2025 10: 09 AM EDT Inhaled Oxygen Concentration - - Weight 85.2 kg (187 lb 12.8 oz) 025 10:09 AM EDT Height 162.6 cm (5' 4 ) 01/21/2025 10:0 9 AM EDT Body Mass Index 32.24 01/21/2025 10:09 AM EDT Plan of Treatment Upcoming Encounters Date Type Department Care Team (Late st Contact Info) Description 04/25/2025 1:00 PM EDT Clinical Support [facility] [address] [place] [address] 05/14/2025 10:45 AM EST Office Visit [facility] [address] [place] [address] Name, MD Balta [address] [place] [address] 06/19/2025 10:00 AM EST Office Visit [facility] [address] [place] [phone] Esther Mcdonald, OD [address] [place] [address] Health Maintenance Due Date Last Done Comments Diabetes: Foot Exam 11/11/1955 Alcohol/Substance Use Screening 1957 Zoster Vaccines (2 of 3) 09/12/2017 07/18/2017 RSV Patients and Patients Aged 60 years or older (1 - 1-dose 75+ series) 11/11/2018 Lipid Panel 12/25/2024 12/26/2023, 09/08, 08/12/2020 COVID-19 Vaccine ( season) 2025 08/13/2021, 09/19/2020, 08/22/2020 Influenza Vaccine (#1) 2025 , 03/29/2023, 04/18/2019, Additional history exists Depression Monitoring 07/24/2025 01/21/2025, 025 Diabetes: Hemoglobin A1C 07/24/2025 025, 09/03/2024, 02/24/2024, Additional history exists SDOH Screening 01/21/2026 01/21/2025 Tobacco Screening 01/21/2026 01/21/2025 Eye Exam 12/17/2026 12/17/2024, 06/0 03/2025, 12/17/2024, Additional history exists DTaP/Tdap/Td Vaccines (2 - [...] patient's age to complete this topic Meningococcal B Vaccine Aged Out No l onger eligible based on patient's age to complete [...] Diagnosis Comments POCT GLYCATED HEMOGLOBIN, TOTAL Routine 01/21/2025 10:11 AM EDT Type 2 diabetes mellitus with obesity ([facility]/HCC) ([facility]) POCT GLUCOSE Routine 01/21/2025 10:10 AM EDT Type 2 diabetes mellitus with obesity ([facility]/HCC) ([facility]) CULTURE, URINE, ROUTINE Routine 01/17/2025 12:43 PM EDT HIGH SENSITIVITY TROPONIN I Routine 01/15/2025 4:42 PM EDT HIGH SENSITIVITY TROPONIN I Routine 01/15/2025 1:20 PM EDT B TYPE NATRIURETIC PEPTIDE (BNP) Routine 01/15/2025 1:20 PM EDT COMPREHENSIVE METABOLIC PANEL Routine 01/15/2025 1:20 PM EDT APTT Routine 01/15/2025 1:20 PM EDT PROTHROMBIN TIME-INR Routine 01/15/2025 1:20 PM EDT CBC WITH AUTO DIFFERENTIAL Routine 01/15/2025 1:20 PM EDT XR CHEST 1 VIEW Routine 01/15/2025 12:53 PM EDT BI MAMMOGRAM SCREENING TOMOSYNTHESIS BILATERAL Routine 01/09/2025 12:20 PM EDT LIPID PANEL, STANDARD Routine 12/26/2023 1:22 PM EDT Hypertension, unspecified type from Last 3 Months or Most Recently Relevant to Health Maintenance Results * (ABNORMAL) POCT HGB A1C (01/21/2025 10:11 AM EDT) Hemoglobin A1C 5.8(A) 4.0 - 5.7 % QC Media Lot # [id number] Lot# Expiration Date 627 Blood 01/21/2025 10:1 1 AM EDT Balta Jeffrey MD POINT OF CARE TEST ENTER/EDIT OR DERABLES Final Result * POCT Glucose (01/21/2025 10:10 AM EDT) Glucose Blood, POC 131 60 - 200 mg/dL QC Media Lot # [id number] Lot# Expiration Date 025 Blood Capillary blood specimen / Unknown 01/21/2025 10:10 AM EDT Balta Jeffrey MD POINT OF CARE TEST ENTER/EDIT OR DERABLES Final Result * Culture, Urine, Routine (01/17/2025 12:43 PM EDT) Urine Urine specimen obtained by clean catch procedure / Unknown 01/17/2025 12:43 PM EDT 01/17/2025 5:02 PM EDT Comment:CC Narrative [facility] - 01/19/2025 7:32 AM EDT Klebsiella aerogenes Quant > 100,000 cfu/mL Klebsiella aerogenes: Ampicillin 16(R) Klebsiella aerogenes: Cefazolin >=32(R) Klebsiella aerogenes: Cefepime <=0.12(S) Klebsiella aerogenes: Ceftriaxone <=0.25(S) Klebsiella aerogenes: Ciprofloxacin <=0.06(S) Klebsiella aerogenes: Gentamicin <=1(S) Klebsiella aerogenes: Nitrofurantoin 64(I) Klebsiella aerogenes: Trimethoprim/Sulfamethoxazole <=20(S) Specimen Source: Urine clean catch Generic External Data Provider LAB MICROBIOLOGY - GENERAL ORDERABLES Final Result [facility] [address] [place] [phone] * High Sensitivity Troponin I (01/15/2025 4:42 PM EDT) Only the most recent of2 resultswithin the time period is included. [facility] TROPONIN I HIGH SENSITIVITY 4.2 <3.5 - 17.0 ng/L [facility] Comment:The Stevenson high sens itivity Troponin-I results should beused in conjunction with other diagnostic information suchas ECG, clinical observations and information, and patientsymptoms to aid in the diagnosis of [place]. 01/15/2025 4:42 PM EDT 01/15/2025 4:43 PM EDT us Generic External Data Provider LAB BLOOD ORDERAB LES Final Result [facility] [address] [place] [phone] * (ABNORMAL) CBC auto differential (01/15/2025 1:20 PM EDT) [facility] White Blood Count 6.8 4.8 - 10.8 X10*3/uL [facility] Red Blood Count 4.15(L) 4.20 - 5.50 X10*6/uL [facility] Hemoglobin 10.4(L) 12.0 - 16.0 g/dl [facility] Hematocrit 33.0(L) 37.0 - 47.0 % [facility] Mean Corpuscular Volume 79.5(L) 80.0 - 98.0 fL [facility] Mean Corpuscular Hemoglobin 25.1(L) 27.0 - 33.0 pg [facility] Mean Corpuscular HGB Conc 31.5 31.0 - 35.0 g/dl [facility] Red Cell Distribution Width 17.5(H) 11.0 - 16.0 % [facility] Platelet Count 292 160 - 400 X10*3/uL [facility] Mean Platelet Volume 9.7 9.4 - 12.3 fL [facility] Neutrophils Percent Auto 60.2 45 - 73 % [facility] Imm Gran Pct Auto 0.3 0.0 - 0.4 % [facility] Lymphocytes Percent Auto 27.9 20 - 40 % [facility] Monocytes Percent Auto 8.6 2 - 11 % [facility] Eosinophils Percent Auto 2.7 0 - 4 % [facility] Basophils Percent Auto 0.3 0 - 2 % [facility] NRBC Pct Auto 0.0 0.0 - 0.2 /100WBC [facility] Neutrophils Absolute Auto 4.1 2.0 - 8.3 x10*3/uL [facility] Imm Gran Abs Auto 0.02 0.00 - 0.03 X10*3/uL [facility] Lymphocytes Absolute Auto 1.9 1.2 - 4.9 X10*3/uL [facility] Monocytes Absolute Auto 0.6 0.1 - 1.2 X10*3/uL [facility] Eosinophils Absolute Auto 0.2 0.0 - 0.4 X10*3/uL [facility] Basophils Absolute Auto 0.0 0.0 - 0.2 X10*3/uL [facility] NRBC Abs Auto 0.000 0.0 - 0.012 X10*3/uL [facility] 01/15/2025 1:20 PM EDT 01/15/2025 1:24 PM EDT us Generic External Data Provider LAB BLOOD ORDERAB LES Final Result [facility] [address] [place] [address] [phone] * (ABNORMAL) Partial Thromboplastin Time, Activated (APTT) (01/15/2025 1:20 PM EDT) Partial Thromboplastin Time 54.1(H) 26.0 - 36.8 SEC [facility] Comment:For information rega rding the monitoring of direct thrombininhibitors, please refer to Pharmacy. 01/15/2025 1:20 PM EDT 01/15/2025 1:24 PM EDT us Generic External Data Provider LAB BLOOD ORDERAB LES Final Result Performing Organization Address [facility] Co de Phone Number [facility] [address] [place] [phone] * (ABNORMAL) Prothrombin Time-INR (01/15/2025 1:20 PM EDT) Prothrombin Time 15.4(H) 10.9 - 12.4 SEC [facility] INTERNATIONAL NORM RATIO 1.3(H) 0.9 - 1.1 [facility] Comment:INTERNATIONAL NORMAL IZED RATIO (INR) REFERENCE RANGES Reference RangeFor patients not on anticoagulant therapy: 0.9 - 1.1INR ranges for oral anticoagulanttherapy:For prevention and treatment of venous thrombosis and pulmonary embolism: 2.0 - 3.0For acute myocardial infarction with aspirin therapy: 2.0 - 3.0For acute myocardial infarction without aspirin therapy: 3.0 - 4.0For patients with mechanical prosthetic heart valves: 2.5 - 3.5 01/15/2025 1:20 PM EDT 01/15/2025 1:24 PM EDT us Generic External Data Provider LAB BLOOD ORDERAB LES Final Result Performing Organization Address [facility] Co de Phone Number [facility] [address] [place] [phone] * B Type Natriuretic Peptide (BNP) (01/15/2025 1:20 PM EDT) B Type Natriuretic Peptide 12 <100 pg/mL [facility] 01/15/2025 1:20 PM EDT 01/15/2025 1:24 PM EDT Generic External Data Provider LAB BLOOD ORDERAB LES Final Result Performing Organization Address [facility] Co de Phone Number [facility] [address] [place] [phone] * (ABNORMAL) Comprehensive Metabolic Panel (01/15/2025 1:20 PM EDT) Sodium 143 135 - 145 mmol/L [facility] Potassium 3.4 3.3 - 5.1 mmol/L [facility] Chloride 105 96 - 108 mmol/L [facility] Carbon Dioxide 31(H) 22 - 29 mmol/L [facility] Anion Gap 10(L) 12 - 20 [facility] Urea Nitrogen (BUN) 21(H) 9 - 16 mg/dL [facility] Creatinine, Serum 1.21 0.5 - 1.4 mg/dL [facility] Creatinine Clr Calc Pharmacy 37.8 [facility] Comment:Provided height and weight: 162.56 cm,82.3 kg.eGFR (calculated from the MDRD study equation) and eCrCl(calculated from the Cockcroft-Gault equation) are based ondifferent parameters and may not yield comparable results.If eCrCl result is absurd, please check patient'sheight/weight. Estimated Glomerular Filt Rate 43 [facility] Comment:Chronic Kidney Disea se: Estimated GFR < 60 mL/min/[id number] Kidney Disease: Estimated GFR < 15 mL/min/1.73m2 Glucose 105 60 - 115 mg/dL [facility] Calcium 9.8 8.4 - 10.2 mg/dL [facility] Bilirubin, Total 0.3 0.0 - 1.0 mg/dL [facility] Aspartate Amino Transferase 20 5 - 31 U/L [facility] Alanine Aminotransferase 12 0 - 31 U/L [facility] Total Protein 7.4 6.5 - 8.0 g/dL [facility] Albumin Level 4.0 3.5 - 5.0 g/dL [facility] Alkaline Phosphatase 151(H) 39 - 117 U/L [facility] 01/15/2025 1:20 PM EDT 01/15/2025 1:24 PM EDT us Generic External Data Provider LAB BLOOD ORDERAB LES Final Result [facility] [address] [place] [phone] * XR Chest 1 View (01/15/2025 12:53 PM EDT) Anatomical Region Laterality Modality Chest Radiographic Melissa ging 01/15/2025 12:5 3 PM EDT Narrative 01/15/2025 2:03 PM EDT [address] [address] XRay Report Signed Patient: Sammie Francois MR#: [id number] : 1945 Acct:[id number] Age/Sex: 79 / F ADM Date: 01/15/25 Loc: .ED Attending Dr: Ordering Physician: Gerry Lopez Date of Service: 01/15/25 Procedure(s): XR chest 1V Accession Number(s): [id number] cc: Gerry Lopez; Name,Balta MAYER EXAMINATION: XR CHEST CLINICAL INFORMATION: Chest pain COMPARISON: October 08, 2024. TECHNIQUE: Frontal view of the chest was obtained. FINDINGS: Pulmonary reticular pattern. Prominence of the interstitial markings in the perihilar regions and peripherally. No consolidation. No gross pleural effusion or pneumothorax. Cardiomediastinal silhouette size is prominent. Multilevel thoracic spondylosis. XR/XR chest 1V IMPRESSION: Mild interstitial lung edema in the correct clinical settings. Cardiomegaly versus pericardial effusion. Electronically signed by: Yair Hayden MD 01/15/2025 02:00 PM EDT Dictated By: Yair Sloan MD Signed By: <Electronically signed by Yair Henning MD in OV> 01/15/25 1400 DD/ 1253 TD/TT: 01/15/25 1351 Hospital Carrier: Procedure Note Donotuseinterpreter, Image - 01/15/[address] [place] [address] XRay Report Signed Patient: Sammie Francois EMR#: [id number] : 1945cct:[id number] Age/Sex: 79 / FADM Date: 01/15/25 Loc: .ED Attending Dr: Ordering Physician: Gerry Lopez Date of Service: 01/15/25 Procedure(s): XR chest 1V Accession Number(s): [id number] cc: Gerry Lopez; Name,Balta MAYER EXAMINATION: XR CHEST CLINICAL INFORMATION: Chest pain COMPARISON: October 08, 2024. TECHNIQUE: Frontal view of the chest was obtained. FINDINGS: Pulmonary reticular pattern. Prominence of the interstitial markings in the perihilar regions and peripherally. No consolidation. No gross pleural effusion or pneumothorax. Cardiomediastinal silhouette size is prominent. Multilevel thoracic spondylosis. XR/XR chest 1V IMPRESSION: Mild interstitial lung edema in the correct clinical settings. Cardiomegaly versus pericardial effusion. Electronically signed by: Yair Hayden MD 01/15/2025 02:00 PM EDT Dictated By: Yair Sloan MD Signed By: <Electronically signed by Yair Henning MDin OV> 01/15/25 1400 DD/ 1253 TD/TT: 01/15/25 1351 Hospital Carrier: [facility] External Provider IMG XR PROCEDURES Edited Result - Final * BI Mammogram Screening Tomosynthesis Bilateral (01/09/2025 12:20 PM EDT) Anatomical Region Laterality Modality Breast Bilateral Mammography 01/09/2025 12:2 0 PM EDT Narrative 01/20/2025 9:00 PM EDT [facility] [address] [place] [address] Mammography Report Signed Patient: Sammie Francois MR#: [id number] : 1945 Acct:[id number] Age/Sex: 79 / F ADM Date: 01/09/25 Loc: MAMMO Attending Dr: Balta Jeffrey MD Ordering Physician: Balta Jeffrey MD Results: 1Negative Date of Service: 01/09/25 Follow Up: 1 Year From Orig ina Mammogram Procedure(s): MM tomosynthesis screening BI Accession Number(s): [id number] cc: Balta Jeffrey MD EXAMINATION: MM SCREENING DIGITAL BREAST TOMOSYNTHESIS, BILATERAL CLINICAL INFORMATION: Screening. Asymptomatic. COMPARISON: Mammography: Comparison is made with available priors TECHNIQUE: Digital breast mammography with tomosynthesis is performed in both the craniocaudal and mediolateral oblique views along with computer-aided detection (CAD). FINDINGS: There are scattered areas of fibroglandular density (ACR BI-RADS breast composition Category b). There are no significant masses, abnormal calcifications, or other abnormalities. MM/MM tomosynthesis screening BI IMPRESSION: No mammographic evidence of malignancy. ASSESSMENT: BI-RADS BI-RADS 1 - Negative RECOMMENDATION: Routine annual mammography screening. 1 year F/U This examination should not preclude the clinical evaluation of a suspicious palpable abnormality. This patient's information was entered into a reminder system with a target due date for their next mammogram. Electronically signed by: Darling Ghosh DO 01/20/2025 08:57 PM EDT Dictated By: Darling Ghosh DO Signed By: <Electronically signed by Darling Ghosh DO in [place]> 01/20/252056 DD/ 1220 TD/TT: 01/09/25 1245 Hospital Carrier: Procedure Note Donotuseinterpreter, Image - 01/20/2025 [facility] [address] [place], [place] [address] Mammography Report Signed Patient: Sammie Francois EMR#: [id number] : 4Acct:[id number] Age/Sex: 79 / FADM Date: 01/09/25 Loc: [facility] Attending Dr: Balta Jeffrey MD Ordering Physician: Balta Jeffrey MDResults: 1Negative Date of Service: 01/09/25Follow Up: 1 Year From Orig inal Mammogram Procedure(s): MM tomosynthesis screening BI Accession Number(s): [id number] cc: NameBalta MD EXAMINATION: MM SCREENING DIGITAL BREAST TOMOSYNTHESIS, BILATERAL CLINICAL INFORMATION: Screening. Asymptomatic. COMPARISON: Mammography: Comparison is made with available priors TECHNIQUE: Digital breast mammography with tomosynthesis is performed in both the craniocaudal and mediolateral oblique views along with computer-aided detection (CAD). FINDINGS: There are scattered areas of fibroglandular density (ACR BI-RADS breast composition Category b). There are no significant masses, abnormal calcifications, or other abnormalities. MM/MM tomosynthesis screening BI IMPRESSION: No mammographic evidence of malignancy. ASSESSMENT: BI-RADS BI-RADS 1 - Negative RECOMMENDATION: Routine annual mammography screening. 1 year F/U This examination should not preclude the clinical evaluation of a suspicious palpable abnormality. This patient's information was entered into a reminder system with a target due date for their next mammogram. Electronically signed by: Darling Ghosh DO 01/20/2025 08:57 PM EDT Dictated By: Darling Ghosh DO Signed By: <Electronically signed by Darling Ghosh DO in OV> 01/20/252056 DD/ 1220 TD/TT: 01/09/25 1245 Hospital Carrier: Balta Jeffrey MD [facility] BI PROCEDURES Edited Result - Final * Lipid Panel, Standard (12/26/2023 1:22 PM EDT) Triglycerides 52 <150 mg/dL [facility] Comment:Desirable Triglyceri de: less than 150 mg/dLBorderline High Triglyceride 150-199 mg/dLHigh Triglyceride: 200-499 mg/dLVery High Triglyceride: greater than or equal to 5OO mg/dL Cholesterol 169 <200 mg/dL [facility] Comment:Desirable Cholestero l: less than 200 mg/dLBorderline High Cholesterol: 200-239 mg/dLHigh Cholesterol: greater than 239 mg/dL LDL Cholesterol Calculated 92 <100 mg/dL [facility] Comment:Desirable LDL: less than 100 mg/dLNear Optimal/Above Optimal LDL: 110- 129 mg/dLBorderline High LDL: 130-159 mg/dLHigh LDL: 160-189 mg/dLVery High LDL: greater than or equal to 190 mg/dL HDL Cholesterol 67 >40 mg/dL [facility] Comment:Desirable HDL: great er than 40 mg/dL Note: This HDL assay may give artificially low results in patients with liver disease. 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
--- OUTSIDE RECORDS SUMMARY | 2025-03-27 16:50 | XMS_ITS | Encounter Summary ---
Author Organization [facility] Address [address] [facility] [address] [place] [id number] Care Team Providers Care Sales Person Name Role Phone Name, Balta MAYER Primary Care Provider [phone] Encounter Details Date Type Department Care Team (Late st Contact Info) Description 06/14/2022 Orders Only [address] [address] Audrey Mcginnis RN Social History Tobacco Use Types Packs/Day [...] Department Care Team (Late Contact Info) Description 04/25/2025 1:00 PM EDT Clinical Support [address] [address] 05/14/2025 10:45 AM EST Office Visit [facility] MEDICINE [address] [place] [address] Name, MD Balta [address] [place] [address] 06/19/2025 10:00 AM EST Office Visit [facility] OPTOMETRY [address] [place] [address] Esther Mcdonald OD [address] [place] [address] documented as of this encounter Visit Diagnoses Not on filedocumented in this encounter Care Teams Sales Person Relationship Specialty Start Date End Date Name, MD Balta [address] [place] [address] PCP - General Internal Medicine 06/14/22 [facility] 08/05/24 documented as of this encounter
--- OUTSIDE RECORDS SUMMARY | 2025-03-27 16:50 | XMS_ITS | Encounter Summary ---
Author Organization [employer] Address [address] [facility] [address] [facility] [address] 7[address] [place] [address] Care Team Providers Care Finding Fastener Name Role Phone Name, Balta MAYER Primary Care Provider [phone] Reason for Visit * Reason Onset Date Comments Call Back Request 08/16/2024 Encounter Details Date Type Department Care Team (Late st Contact Info) Description 08/16/2024 Telephone [facility] MEDICINE [address] [place], [place] [phone] Name, MD Balta [address] [place] [address] Call Back Request Social History Tobacco Use [...] Miscellaneous Notes * Telephone Encounter - Alfred Bienvenido - 08/16/2024 4:14 PM EST Tc from Daughter calling in regards to tomorrow's [facility] visit inquiring on the B12 injection. Please contact Daughter at [phone]. (Liberian Speaker) documented in this encounter Plan of Treatment Upcoming Encounters Date Type Department Care Team (Late st Contact Info) Description 04/25/2025 1:00 PM EDT Clinical Support [facility] MEDICINE [address] [place] [address] 05/14/2025 10:45 AM EST Office Visit [facility] MEDICINE [address] [place] [address] Name, MD Balta [address] [place] [address] 06/19/2025 10:00 AM EST Office Visit [facility] OPTOMETRY [address] [place] [address] Esther Mcdonald OD [address] [place] [address] documented as of this encounter Visit Diagnoses Not on filedocumented in this encounter Additional Health Concerns Assessment Noted Time PHQ-9 Depression Total Score: 0 09/20/19 1:15 PM EDT documented as of this encounter Care Teams Finding Fastener Relationship Specialty Start Date End Date Name, MD Balta [address] [facility] [place] [address] PCP - General Internal Medicine 06/14/22 [facility] 08/05/24 documented as of this encounter
--- OUTSIDE RECORDS SUMMARY | 2025-03-27 16:50 | XMS_ITS | Encounter Summary ---
Author Organization [employer] Address [address] [facility] [address] 7[address] [place] [address] Care Team Providers Care Telephone Directory Deliverer Name Role Phone Name, Balta MAYER Primary Care Provider [phone] Reason for Visit * Reason Onset Date Comments Durable Medical Equipment 03/27/2025 Encounter Details Date Type Department Care Team (Late st Contact Info) Description 03/27/2025 Telephone [facility] [address] [place], [place] [phone] Kanwal Taylor [place] Durable Medical Equipment Social History Tobacco Use [...] encounter Miscellaneous Notes * Telephone Encounter - Kanwal Taylor [place] - 03/27/2025 3:43 PM EDT Boost DME sent over to [employer] documented in this encounter Plan of Treatment Upcoming Encounters Date Type Department Care Team (Late st Contact Info) Description 04/25/2025 1:00 PM EDT Clinical Support [facility] [address] [place] [address] 05/14/2025 10:45 AM EST Office Visit [facility] MEDICINE [address] [place] [address] Name, MD Balta [address] [place] [address] 06/19/2025 10:00 AM EST Office Visit [facility] OPTOMETRY [address] [place] [address] Esther Mcdonald OD [address] [place] [address] documented as of this encounter Visit Diagnoses Not on filedocumented in this encounter Additional Health Concerns Assessment Noted Time PHQ-9 Depression Total Score: 10 025 10:31 AM EDT documented as of this encounter Care Teams Telephone Directory Deliverer Relationship Specialty Start Date End Date Name, MD Balta [address] [place] [address] PCP - General Internal Medicine 06/14/22 [facility] 08/05/24 documented as of this encounter
== END 2025-03-27 13:43 | disposition home or self-care (01) ==
LOC: HO.HCS 13:12
PROVIDERS: PCP Internal Medicine Geriatric Medicine
DX: I48.91 Unspecified atrial fibrillation (principal); I50.32 Chronic diastolic (congestive) heart failure; I10 Essential (primary) hypertension; G47.33 Obstructive sleep apnea (adult) (pediatric); E78.5 Hyperlipidemia, unspecified
CPT/HCPCS: 99214; G2211

== ENCOUNTER → 2025-03-27 13:11 | Outpatient (BNVA) | payer OTHER, SELFPAY | PROVIDERS: PCP Internal Medicine Geriatric Medicine | DX: I11.0 Hypertensive heart disease with heart failure (principal); I50.32 Chronic diastolic (congestive) heart failure; I48.91 Unspecified atrial fibrillation; G47.33 Obstructive sleep apnea (adult) (pediatric); E78.5 Hyperlipidemia, unspecified | CPT/HCPCS: 99212 ==

== ENCOUNTER 2025-04-30 11:57 | Emergency (ER) | payer OTHER, SELFPAY ==
--- OUTSIDE RECORDS SUMMARY | 2025-04-25 13:00 | XMS_ITS | Encounter Summary ---
Author Organization [employer] Address [address] [facility] [address] 7[address] [place] [address] Care Team Providers Care Technician'S Helper Name Role Phone Name, Balta MAYER Primary Care Provider [phone] Reason for Visit * Reason Comments B12 Injection Encounter Details Date Type Department Care Team (Latest Contact Info) Description 04/25/2025 1:00 PM EDT Clinical Support [facility] [address], [place] [phone] Cindy Ly RN [address] [place] [address] Encounter for immunization Social History Tobacco Use [...] Progress Notes * Cindy Ly RN - 04/25/2025 1:00 PM EDT S: Pt here for nurse visit for Vitamin B-12 Injection. Pt states that she feels well today. No symptoms reported. Pt declines high dose flu vaccine offered today. O: Standing order verified. A: Pt tolerated IM injection to right deltoid well. No adverse reaction noted. P: Pt advised of upcoming nurse visit for Vitamin B-12 Injection and given appointment reminder card. Pt reminded of upcoming f/u scheduled with pcp. Pt verbalized understanding and reports agreementwith plan. documented in this encounter Plan of Treatment Upcoming Encounters Date Type Department Care Team (Late st Contact Info) Description 05/14/2025 10:45 AM EST Office Visit [facility] MEDICINE [address] [place] [address] Name, MD Balta [address] [place] [address] 05/24/2025 10:30 AM EST Clinical Support [facility] [address] [place] [address] 06/19/2025 10:00 AM EST Office Visit [facility] OPTOMETRY [address] [place] [address] Esther Mcdonald, OD [address] [place] [address] documented as of this encounter Visit Diagnoses Diagnosis Encounter for immunization documented in this encounter Administered Medications Active Administered Medications - up to 3 most recent administrations Medication Order MAR Action Action Date Dose Rate Site cyanocobalamin (Vitamin B-12) injection 1,000 mcg 1,000 mcg, Intramuscular, Every 30 days, First dose on 09/22/24 at 0900, For 12 dosesIndications:Cobalami n deficiency Given 04/25/2025 1:21 PM EDT 1,000 mcg Right Deltoid Given 03/26/2025 9:50 AM EDT 1,000 mcg Ri ght Deltoid Given 02/22/2025 10:05 AM EDT 1,000 mcg R ight Deltoid documented in this encounter Additional Health Concerns Assessment Noted Time PHQ-9 Depression Total Score: 10 025 10:31 AM EDT documented as of this encounter Care Teams Technician'S Helper Relationship Specialty Start Date End Date Name, MD Balta [address] [place] [address] PCP - General Internal Medicine 06/14/22 [facility] 08/05/24 documented as of this encounter
[2025-04-30 12:09] VITALS: BP 208/80; PULSE 89; O2SAT 95
[2025-04-30 12:23] VITALS: BP 163/64; PULSE 79; RESP 16; TEMP 36.1; O2SAT 94; BMI 39.1
--- NOTE | 2025-04-30 12:25 | ECG_ITS ---
Test Reason : HYPERTENSION Blood Pressure : */* mmHG Vent. Rate : 69 BPM Atrial Rate : 69 BPM P-R Int : 144 ms QRS Dur : 84 ms QT Int : 312 ms P-R-T Axes : 45 -6 -23 degrees QTcB Int : 334 ms Poor data quality, interpretation may be adversely affected Normal sinus rhythm Minimal voltage criteria for LVH, may be normal variant ( R in aVL ) Nonspecific ST and T wave abnormality Abnormal ECG When compared with ECG of 15-Jan-2025 12:48, Nonspecific T wave abnormality now evident in Lateral leads QT has shortened Referred By: Jarrett Boyd Electronically Signed By: KARON TALAVERA MD
--- NOTE | 2025-04-30 12:57 | ED.GENADULT ---
HPI - General Adult General Chief complaint: General Medical Stated complaint: HIGH BP 224/90,DO EARLIER PER EMS Time Seen by Provider: 04/30/25 12:19 History of Present Illness ED Provider: Jarrett Boyd MD HPI narrative: 79-year-old female brought in for elevated blood pressure at home taken as a routine. In triage reports headache that resolved with an ice pack currently asymptomatic BP reported by the patient and family earlier at 224/90 with home cough Related Data Home Medications ?Medication ?Instructions ?Recorded ?Confirmed oxybutynin chloride 5 mg tablet 5 mg PO BID 05/15/20 03/27/25 cholecalciferol (vitamin D3) 25 1 tab PO DAILY 03/24/21 03/27/25 mcg (1,000 unit) tablet fluticasone propionate 50 1 - 2 spray intranasal DAILY PRN 03/24/21 03/27/25 mcg/actuation nasal Nasal Congestion spray,suspension cyanocobalamin (vitamin B-12) 1,000 mcg IM Q28D 11/02/22 03/27/25 1,000 mcg/mL injection solution cetirizine 10 mg tablet 10 mg PO DAILY 07/17/24 03/27/25 calcium carbonate 600 mg PO DAILY 10/09/24 03/27/25 docusate sodium 100 mg capsule 100 mg PO DAILY 10/09/24 03/27/25 (Stool Softener) empagliflozin 10 mg tablet 10 mg PO DAILY 10/09/24 03/27/25 (Jardiance) ferrous gluconate 324 mg (38 mg 324 mg PO DAILY 10/09/24 03/27/25 iron) tablet omeprazole 40 mg capsule,delayed 40 mg PO BID@0630,1630 10/09/24 03/27/25 release magnesium hydroxide 400 mg/5 mL 5 ml PO BEDTIME 01/22/25 03/27/25 oral suspension (Silva Milk of Magnesia) amlodipine 2.5 mg tablet 2.5 mg PO DAILY 02/25/25 03/27/25 Previous Rx's ?Medication ?Instructions ?Recorded walker #1 ea 03/02/21 acetaminophen 325 mg tablet 650 mg (2 x 325 mg) PO Q6H PRN 05/29/21 Pain, Mild (Pain Scale 1-3) 30 days #240 tabs apixaban 5 mg tablet (Eliquis) 5 mg PO BID #180 tabs 11/23/24 metoclopramide HCl 10 mg tablet 10 mg PO QIDACHS #120 tabs 12/05/24 (Reglan) atorvastatin 40 mg tablet 40 mg PO BEDTIME #90 tabs 12/17/24 blood pressure monitor #1 ea 12/24/24 hydrochlorothiazide 12.5 mg tablet 12.5 mg PO QAM #60 tabs 02/18/25 losartan 25 mg tablet 25 mg PO BID #180 tabs 03/12/25 Allergies Allergy/AdvReac Type Severity Reaction Status Date / Time Penicillins (PENICILLINS) Allergy Intermediate NAUSEA/HIVE Verified 04/30/25 12:24 S metformin AdvReac Unknown Diarrhea Verified 04/30/25 12:24 [facility] Past Medical History Medical History Diarrhea Diverticulitis Abdominal bloating Epigastric pain Chronic diastolic heart failure Hydronephrosis, right Ureteral stone Dementia Calculus of proximal right ureter CKD (chronic kidney disease) Renal insufficiency Tubular adenoma of colon Preop cardiovascular exam Urinary urgency Pneumonia Hospital discharge follow-up Asthma MARIA R (acute kidney injury) GERD (gastroesophageal reflux disease) Diabetes Osteoarthritis Hyperlipidemia Hypertension JOVANNI (obstructive sleep apnea) Surgical History Hx of cataract surgery Status post total knee replacement, right History of arthroplasty of right knee Hx of colonoscopy H/O: hysterectomy History of salpingoophorectomy History of tonsillectomy Family History Family History Father HTN (hypertension) Mother HTN (hypertension) CVD (cardiovascular disease) Daughter Bone cancer Father Cancer Social History Social History Household Members: Family Housing: House Are you a primary care transitions nurse to a significant other at home: No Do you presently have visiting nurse or other home services: No Alcohol intake: never Comment: family at bedside Patient Tobacco Use Status: Never used Tobacco e-Cigarette/Vaping Use: Never Used Second Hand Smoke Exposure: No service: No Current occupational status: retired Current occupation: Right handed Physical Exam ED Exam Exam: EXAM: Gen: Alert, awake, well appearing, well hydrated. Head: Atraumatic Eyes: Anicteric, Normal conjunctiva. ENT: Moist mucosa, no pallor. ? Neck: Supple. Skin: ?No observable rash or bruising on exposed or examined skin Respiratory: Breathing comfortably, No distress.Clear to auscultation bilaterally, symmetric chest expansion, No wheeze, rales, ronchi. Cardiovascular: Regular rate and rhythm. No murmurs or rub. Well perfused periphery, warm extremities. No edema. ? Abdominal: No focal tenderness. Soft, no objective distension. No palpable masses or obvious organomegaly. ?No guarding, no rebound tenderness or other peritoneal findings. : No flank tenderness. Neuro: Alert. Gross movement of all extremities intact. ? Psych: Calm. Cooperative. MSK: No grossly visible deformity. Vital signs: See flowsheet Vital Signs: Vital Signs - 24 hr 04/30/25 12:23 Temperature 97 F Pulse Rate 79 Respiratory Rate 16 Blood Pressure 163/64 H Pulse Oximetry 94 Oxygen Delivery Method Room Air BMI result Body Mass Index 39.1 Medical Decision Making Medical Decision Making MDM Narrative: Medical Decision Makin-year-old female with asymptomatic hypertension, mild global headache resolved prior to arrival did not sound suggestive of severe hypertensive emergency or severe headache which would be the only indication to pursue any workup. The patient's blood pressure here without any pharmacologic treatment improved to 160 systolic Counseling, PCP follow up Preliminary Favored Differential Diagnosis: Asymptomatic hypertension, essential hypertension, tension headache, dehydration among additional considered etiologies Testing Interpreted Independently: ?See below for details Radiology or Lab testing Results Reviewed: ?See below for details Consults: ?See below for details Independent Historians/External Chart Reviews: ?See below for details Social Determinants of Health Impacting MDM/Planning: ?See below for details Independent Interpretation I performed an independent interpretation of an: EKG (LVH no acute ischemic changes) Discharge Plan Discharge Clinical Impression: Hypertension Patient Disposition: Home, Self-Care Instructions: Chronic Hypertension (ED) Additional Instructions: Your blood pressure improved without treatment. Call your PCP for follow up. See below for discharge instructions Jovana por Hipertensi?n Asintom?sol - Tiene presi?n arterial jovana, remy no presenta s?ntomas graves. - Mely cambios saludables: coma m?s frutas, verduras y cereales integrales; reduzca el consumo de mitesh; evite las grasas saturadas; mantenga un peso saludable; mely ejercicio regularmente; y limite el consumo de alcohol. - Si es posible, controle lara presi?n arterial en casa y reg?strela para lara pr?xima jamil. - No cambie ni suspenda denise medicamentos sin consultar con lara m?dico. - Programe jose antonio visita de seguimiento en las pr?ximas semanas para revisar lara presi?n arterial y determinar si necesita m?s tratamiento. - Acuda a urgencias si presenta dolor de michelle intenso, dolor en el pecho, dificultad para respirar, debilidad, visi?n borrosa o confusi?n. - La presi?n arterial jovana se puede controlar con estos pasos y atenci?n m?dica regular. Mantener la presi?n arterial en un rango saludable ayuda a prevenir ataques card?acos y accidentes cerebrovasculares. croatian Asymptomatic Hypertension Discharge - You have high blood pressure but no serious symptoms. - Make healthy changes: eat more fruits, vegetables, and whole grains; reduce salt; avoid saturated fats; keep a healthy weight; exercise regularly; and limit alcohol. - If possible, check your blood pressure at home and keep a record for your next appointment. - Do not change or stop your medications without talking to your doctor. - Schedule a follow-up visit in the next few weeks to review your blood pressure and decide if you need more treatment. - Go to the emergency room if you have a severe headache, chest pain, trouble breathing, weakness, blurry vision, or confusion. - High blood pressure can be controlled with these steps and regular medical care. Keeping your blood pressure in a healthy range helps prevent heart attacks and strokes. Prescriptions: No Action (DME) thelma Bargerc See Rx Instructions .ROUTE .MEDSUPPLY Qty: 1 0RF Rx Instructions: Folding front wheeled walker Eliquis 5 mg tablet 5 mg PO BID Qty: 180 3RF metoclopramide HCl [Reglan] 10 mg tablet 10 mg PO QIDACHS Qty: 120 6RF atorvastatin 40 mg tablet 40 mg PO BEDTIME Qty: 90 3RF (DME) blood pressure monitor Kit See Rx Instructions .Route Qty: 1 0RF Rx Instructions: As directed hydrochlorothiazide 12.5 mg tablet 12.5 mg PO QAM Qty: 60 3RF losartan 25 mg tablet 25 mg PO BID Qty: 180 3RF fluticasone propionate 50 mcg/actuation spray,suspension 1 - 2 spray intranasal DAILY PRN (Reason: Nasal Congestion) cholecalciferol (vitamin D3) 25 mcg (1,000 unit) tablet 1 tab PO DAILY acetaminophen 325 mg Tablet 650 mg PO Q6H PRN (Reason: Pain, Mild (Pain Scale 1-3)) 30 Days Qty: 240 0RF cyanocobalamin (vitamin B-12) 1,000 mcg/mL solution 1,000 mcg IM Q28D calcium carbonate 600 mg calcium (1,500 mg) tablet 600 mg PO DAILY docusate sodium [Stool Softener] 100 mg capsule 100 mg PO DAILY ferrous gluconate 324 mg (38 mg iron) tablet 324 mg PO DAILY Jardiance 10 mg tablet 10 mg PO DAILY omeprazole 40 mg capsule,delayed release(DR/EC) 40 mg PO BID@0630,1630 oxybutynin chloride 5 mg tablet 5 mg PO BID cetirizine 10 mg tablet 10 mg PO DAILY amlodipine 2.5 mg tablet 2.5 mg PO DAILY magnesium hydroxide [Silva Milk of Magnesia] 400 mg/5 mL suspension 5 ml PO BEDTIME Interventions: ED Discharge Assessment Last Done: 04/30/25 13:20 Discharge Date/Time: 04/30/25 13:20 Print Language: Belarusian
[2025-04-30 13:20] VITALS: BP 154/68; PULSE 80; RESP 18; TEMP 36.1; O2SAT 96
--- OUTSIDE RECORDS SUMMARY | 2025-04-30 16:15 | XMS_ITS | Encounter Summary ---
Author Organization [employer] Address [address] [facility] [facility] [address] [place] [address] Care Team Providers Care Gang Tailer Name Role Phone Name, Balta MAYER Primary Care Provider [phone] Encounter Details Date Type Department Care Team (Latest Contact Info) Description 04/25/2025 Travel Social History Tobacco Use Types Packs/Day [...] Description 05/14/2025 10:45 AM EST Office Visit [facility] MEDICINE [address] [place] [address] NameBalta MD [address] [place] [address] 05/24/2025 10:30 AM EST Clinical Support [facility] MEDICINE [address] [place] [address] 06/19/2025 10:00 AM EST Office Visit [facility] OPTOMETRY [address] [place] [address] Esther Mcdonald, OD [address] [place] [address] documented as of this encounter Visit Diagnoses Not on filedocumented in this encounter Additional Health Concerns Assessment Noted Time PHQ-9 Depression Total Score: 10 025 10:31 AM EDT documented as of this encounter Care Teams Gang Tailer Relationship Specialty Start Date End Date Balta Jeffrey MD [address] [place] [address] PCP - General Internal Medicine 06/14/22 [facility] 08/05/24 documented as of this encounter
--- OUTSIDE RECORDS SUMMARY | 2025-04-30 16:15 | XMS_ITS | Encounter Summary ---
Author Organization [employer] Address [address] [place] [address] Care Team Providers Care Retail Aide Name Role Phone Name, Balta MAYER Primary Care Provider [phone] Encounter Details Date Type Department Care Team (Late st Contact Info) Description 07/20/2024 Community Care Management [facility] [address] [place] [address] Epiccare Link, Physician, Social History Tobacco Use [...] Description 05/14/2025 10:45 AM EST Office Visit [facility] [address] [place] [address] NameBalta MD [address] [place] [address] 05/24/2025 10:30 AM EST Clinical Support [facility] [address] [place] [address] 06/19/2025 10:00 AM EST Office Visit [facility] [address] [place] [address] Harry, Esther, OD [address] [place] [address] documented as of this encounter Visit Diagnoses Not on filedocumented in this encounter Additional Health Concerns Assessment Noted Time PHQ-9 Depression Total Score: 0 09/20/19 24 1:15 PM EDT documented as of this encounter Care Teams Retail Aide Relationship Specialty Start Date End Date NameBalta MD [address] [place] [address] PCP - General Internal Medicine 06/14/22 [place] [facility] 08/05/24 documented as of this encounter
--- OUTSIDE RECORDS SUMMARY | 2025-04-30 16:15 | XMS_ITS | Encounter Summary ---
Author Organization [employer] Address [address] [place] [address] Care Team Providers Care Veneer Sander Name Role Phone Name, Balta MAYER Primary Care Provider Reason for Visit * Reason Onset Date Comments ER Follow-up 08/06/2024 Encounter Details Date Type Department Care Team (Late st Contact Info) Description 08/06/[address] [facility] [address] [place], [place] [phone] Name, MD Balta [address] [place] [address] ER Follow-up Social History Tobacco Use Types [...] from pt requesting a HDF appt. Hospital: [facility] Date of admission: 07/24/24 Discharge date: 08/02/24 Diagnosed: Acute Dysphagia *Send message to [place] Clinical Care Coordinators documented in this encounter Plan of Treatment Upcoming Encounters Date Type Department Care Team (Late st Contact Info) Description 05/14/2025 10:45 AM EST Office Visit [facility] [address] [place] [address] Name, MD Balta [address] [place] [address] 05/24/2025 10:30 AM EST Clinical Support [facility] [address] [place] [address] 06/19/2025 10:00 AM EST Office Visit [facility] [address] [place] [address] Esther Mcdonald, OD [address] [place] [address] documented as of this encounter Visit Diagnoses Not on filedocumented in this encounter Additional Health Concerns Assessment Noted Time PHQ-9 Depression Total Score: 0 09/20/19 24 1:15 PM EDT documented as of this encounter Care Teams Veneer Sander Relationship Specialty Start Date End Date Name, MD Balta [address] [place] [address] PCP - General Internal Medicine 06/14/22 Samir Luci 08/05/24 documented as of this encounter
--- OUTSIDE RECORDS SUMMARY | 2025-04-30 16:16 | XMS_ITS | Continuity of Care Document ---
Author Organization [employer] [facility], [employer] [facility] Address [address] [place] [phone] Care Team Providers Care Cheesemaker Helper Name Role Phone NAME, JOSE Primary Care Provider HIM CHRIS OTHER Assessment Encounter Date Assessment Date Assessment LastModified by Organization Details LastModified Time 04/30/2025 04/30/2025 I provided real -time medical direction via phone for this encounter, and was available for additional phone based assistance as needed. I have reviewed and agree with the Assessment and Plan as documented by the Case Loader Operator. We discussed the diagnostic uncertainty of home visits and the risk associated with this. The patient /family given the opportunity to ask questions. [email or web address] Not available 04/30/2025 11:53:11 Plan of Treatment Reminders Order Date Submit Date Provider Last Modified By Organization Details Last Modified Time Details Appointments Urgent Care 2024 11:15A M Charlotte Cao MD Not available Not available Not available Lab None recorded . Referral None recorded . Procedures None recorded . Surgeries None recorded . Imaging None recorded . Medication Orders None recorded . Patient TargetsNo targets recorded. Patient InstructionsNo instructions recorded. Reason for Referral None Reported. Medical Equipment None Reported. Allergies Allergen ID Allergen Name Allergen Category Reaction Reaction Severity Criticality Documentation Date Start Date Code Code System Note Provider Name and Address Organization Details Recorded Time 37630 Product containin g penicilli n (product) medicatio n Not available Not available Not available 10/07/2024 49475 8001 SNOMED Not Available [employer] - production [...] Available No t Available Vitals Date Recorded Oxygen saturation Oxygen saturation in Arterial blood by Pulse oximetry Heart rate Respiratory rate Body temperature Systolic And Diastolic Provider Name and Address Organization Details Last Updated DateTime 5 97 % 97 % 71 /min 16 /min 98.3 [degF] 218/98 mm[Hg] Not Available [employer] - production 11:15:27 Social History None recorded. Functional Status None recorded. Mental Status None recorded. Family History Nothing Reported. Medical History No medical history recorded. Gynecological HistoryNo gynecological history recorded. Obstetrics History GPAL:G 0 P 0 0 0 0 Past Encounters Encounter ID Performer Location Encounter Start Date Encounter Closed Date Diagnosis/Indication Diagnosis SNOMED-CT Code Diagnosis ICD10 Code Diagnosis IMO Codes Diagnosis Note [id number] Charlotte Cao MD [facility] ED Medical [facility] [address] [place] [phone] 04/30/2025 11:15:21 04/30/2025 15:26:29 Hypertensive urgency [id number] I16.0 [id number] w/ orthostasi s.Patient' s blood pressure at our last visit in January was 164/81 and on her BP log her highest blood pressure this week was 157 systolic blood pressure. ed does not have meds patient takes to give second dose and patient's medication s are in pre-packag ed bags/packs and there is concern if we open 1 that they would not be replaced properly if extra pills ordered.Of fered to start workup with lab work and EKG given symptomato logy and start treatment for hypertensi on, although increased hypertensi on could be driven by abdominal pain and family stress . With borderline orthostati c changes advised have to be very careful, not to lower her blood pressure too rapidly. After discussion patient and family requested to go to the ER for further evaluation and workup Health Concerns Section Related Observation LastModified by Organization Detai ls LastModified Time None Recorded Concern Status LastModified by Organization Details LastModified Time None Recorded Payers Encounter Date Sequence Insurance Name Policy Number Policy Monzon Covered Member ID Monzon Member ID Guarantor Name 04/30/2025 1 [facility] - DOS ON OR AFTER 2022 - DUAL ELIGIBLE - [employer] AND ONE [employer] (MEDICARE REPLACEMENT/ADV ANTAGE - HMO) Victorina Mike [id number] Victorina Mike Notes Date Note Type Note Provider Name and Address Organization Details Recorded Time 04/30/2025 text/html ROS as noted in the HPI [facility] Nurse Triage Notes (Sophia Zavaleta): Reason For Request: BP high/upset stomach/fatigueDenies: Worst Headache of life New onset of vision loss Sudden onset -unilateral weakness/gait disturbance Fall with head strike and altered LOC New onset of Slurred speech or difficulty finding words Sudden Mental status changes Head pain with fever chills and neck pain Seizure activity Chief Complaints: High Blood PressurePMH: Hypertension, Chronic Pain, Diabetes Mellitus Type 2PMH Reviewed at 04/30/2025 - 10:32Allergies Reviewed at 04/30/2025 - 10:32Comments: 79 y.o female complains of High Blood Pressure Daughter reporting symptoms. Patient reporting nausea, headache, feeling fatigued. 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 Denies vision changes. No PRNs for pain. Doesn't get headaches often. [employer] reported hypertension - high 100s/90s. Took antihypertensive at 7am - lisinopril. Not on any other antihypertensives. Denies chest pain, chest tightness or shortness of breath. Denies fever. Not on anticoagulation. Denies recent kidney issues. Requesting instED visit. I provided information on the mobile health provider response time and advised the patient and/or caregiver to monitor reported signs and symptoms. I discussed the warning signs of when to seek emergency care. ...................... ...................... ...................... ...................... ...................... ...................... ......... Case Loader Operator Note From Ernesto Macias: Dispatched to the call address for the female with hypertension. Pt states she woke up with a headache and high blood pressure, she is also complaining of abd pain that she describes as gas . Pt states she has never had her blood pressure this high. She has not had any recent medication changes and has not been taking any OTC medication but has been dealing with some family stress. She denies chest pain, diff breathing/sob, vision changes, v/d, cold/flu symptoms or other complaints at this time. Pt has been maintaining baseline PO intake. Pt was found laying in bed, CAOx4, airway open and patent, breathing non labored, able to speak in full sentences, -JVD, pupils PERRL, mucous membranes pink and moist, skin PWD with good turgor, abd soft non tender/distended, +CMSx4, +1 pitting edema (baseline per Pt), lungs CTA, afebrile. Bilateral blood pressures within a few points of each other, orthostatic BP with an 18 point systolic drop and HR increase of 25. Hypertension with headache Pt was assessed. [facility] consulted. Orthostatic checked. Pt and family were advised that we could try to obtain blood for BMP, EKG and increasing her BP meds to see if it helped or have a further work up/treatment in the ED. Family and Pt agreed that the ED would be best option at this time. 911 called for Pt. I waited on scene for EMS. Transfer of care given to EMS crew. Pt transported to [facility] per her request. ALL times are approx. ...................... ...................... ...................... ...................... ...................... ...................... ......... [facility] Consulted: Charlotte Cao ...................... ...................... ...................... ...................... ...................... ...................... ......... Disposition: Fulfilled Charlotte Cao MD [address] [place] [address],[address] [facility], [place], [address], [employer] 04/30/2025 15:26:26 OBGyn Episode No OBEpisode recorded.
--- OUTSIDE RECORDS SUMMARY | 2025-04-30 16:16 | XMS_ITS | Encounter Summary ---
Author Organization [employer] Address [address] [place] [address] Care Team Providers Care Vp Production Name Role Phone Name, Balta MAYER Primary Care Provider [phone] Reason for Visit * Reason Onset Date Comments Call Back Request 08/16/2024 Encounter Details Date Type Department Care Team (Late st Contact Info) Description 08/16/2024 Telephone [facility] [address] [place], [place] [phone] Name, MD Balta [address] [place] [address] Call Back Request Social History Tobacco Use [...] from Daughter calling in regards to tomorrow's [facility] visit inquiring on the B12 injection. Please contact Daughter at [phone]. (Danish Speaker) documented in this encounter Plan of Treatment Upcoming Encounters Date Type Department Care Team (Late st Contact Info) Description 05/14/2025 10:45 AM EST Office Visit [facility] [address] [place] [address] Name, MD Balta [address] [place] [address] 05/24/2025 10:30 AM EST Clinical Support [facility] [address] [place] [address] 06/19/2025 10:00 AM EST Office Visit [facility] [address] [place] [address] Esther Mcodnald, CLEO [address] [place] [address] documented as of this encounter Visit Diagnoses Not on filedocumented in this encounter Additional Health Concerns Assessment Noted Time PHQ-9 Depression Total Score: 0 09/20/19 24 1:15 PM EDT documented as of this encounter Care Teams Vp Production Relationship Specialty Start Date End Date Name, MD Balta [address] [facility] [place] [address] PCP - General Internal Medicine 06/14/22 Samir [facility] 08/05/24 documented as of this encounter
--- OUTSIDE RECORDS SUMMARY | 2025-04-30 16:16 | XMS_ITS | Encounter Summary ---
Author Organization [employer] Address [address] [place] [address] Care Team Providers Care Motor Coach Chauffeur Name Role Phone Name, Balta MAYER Primary Care Provider [phone] Reason for Visit * Reason Onset Date Comments Hospital Follow-up 10/18/2024 Encounter Details Date Type Department Care Team (Late st Contact Info) Description 10/18/2024 Telephone [facility] [address] [place], [place] [phone] Name, MD Balta [address] [place] [address] Hospital Follow-up Social History Tobacco Use Types [...] - 10/18/2024 1:12 PM EDT Tc from hospice patient care secretary Victorina requesting a HDF appt. Hospital: [facility] Date of admission: 10/08/24 Discharge date: 10/16/24 Diagnosed: Kidney stones and blood infection Contact pt daughter at [phone] (uzbek) documented in this encounter Plan of Treatment Upcoming Encounters Date Type Department Care Team (Late st Contact Info) Description 05/14/2025 10:45 AM EST Office Visit [facility] [address] [place] [address] Name, MD Balta [address] [place] [address] 05/24/2025 10:30 AM EST Clinical Support [facility] [address] [place] [address] 06/19/2025 10:00 AM EST Office Visit [facility] [address] [place] [address] Harry, Esther, OD [address] [place] [address] documented as of this encounter Visit Diagnoses Not on filedocumented in this encounter Additional Health Concerns Assessment Noted Time PHQ-9 Depression Total Score: 0 09/20/19 24 1:15 PM EDT documented as of this encounter Care Teams Motor Coach Chauffeur Relationship Specialty Start Date End Date Name, MD Balta [address] [place] [address] PCP - General Internal Medicine 06/14/22 Samir [facility] 08/05/24 documented as of this encounter
--- OUTSIDE RECORDS SUMMARY | 2025-04-30 16:16 | XMS_ITS | Encounter Summary ---
Author Organization [facility] Address [address] [place] [phone] Care Team Providers Care Asl Interpreter Name Role Phone NameBalta MD Primary Care Provider [phone] Encounter Details Date Type Department Care Team (Late st Contact Info) Description 06/14/2022 Orders Only [address] [address] Audrey Mcginnis RN Social History Tobacco Use [...] Description 05/14/2025 10:45 AM EST Office Visit [address] [address] Balta Jeffrey MD [address] [place] [address] 05/24/2025 10:30 AM EST Clinical Support [facility] [address] [place] [address] 06/19/2025 10:00 AM EST Office Visit [facility] [address] [place] [address] Esther Mcdonald OD [address] [place] [address] documented as of this encounter Visit Diagnoses Not on filedocumented in this encounter Care Teams Asl Interpreter Relationship Specialty Start Date End Date Balta Jeffrey MD [address] [place] [address] PCP - General Internal Medicine 06/14/22 Samir [facility]AI 08/05/24 documented as of this encounter
--- OUTSIDE RECORDS SUMMARY | 2025-04-30 16:16 | XMS_ITS | Data Portability ---
Author Organization [employer] [facility] Address [address] [place] [phone] Care Team Providers Care Cleater Name Role Phone NAME, JOSE Primary Care Provider HIM CHRIS OTHER Assessment Encounter Date Assessment Date Assessment LastModified by Organization Details LastModified Time 10/07/2024 10/07/2024 Mrs. Amado degroot was evaluated for confusion and urinary symptoms. On assessment she is afebrile, mildly bradycardic and hypertensive. Per heel attacher assessment she is independently ambulatory with a [...] Assessment and Plan as documented by the Foam Cutting Supervisor. We discussed the diagnostic uncertainty of [...] Assessment and Plan as documented by the Foam Cutting Supervisor. We discussed the diagnostic uncertainty of [...] agreeable they are requesting she go to [facility]. EMS initiated by [facility] provider, I called report to cupola [email or web address] at [facility] ER [email or web address] Not available 10/08/2024 17:38:59 11/23/2024 11/23/2024 service [...] assessment and plan as documented by the heel attacher. I provided real time medical direction for this encounter and was immediately available to provide additional phone based assistance as needed. History as noted by heel attacher. Pt with history HTN, DM2, and ? [...] the pt by private vehicle to the [facility] ED for evaluation. I feel comfortable with the pt going there via private car at this time. I discuss case with one of the ED providers at [facility] as well. [email or web address] Not available 01/15/2025 12:22:44 04/30/2025 04/30/2025 I provided real -time medical direction via phone for this encounter, and was available for additional phone based assistance as needed. I have reviewed and agree with the Assessment and Plan as documented by the Foam Cutting Supervisor. We discussed the diagnostic uncertainty of home visits and the risk associated with this. The patient /family given the opportunity to ask questions. [email or web address] Not available 04/30/2025 11:53:11 Plan of Treatment Reminders Order Date Submit Date Provider Last Modified By Organization Details Last Modified Time Details Appointments Urgent Care 2024 11:15A M Charlotte Cao MD Not available Not available Not available Lab urinalysi s, dipstick [address], [phone] 11/23/2024 20:08:02 BMP, serum or plasma [address], [phone] 11/23/2024 20:08:02 culture, urine 2024 025 [facility], [address], [address], [place], [address], 11/26/2024 20:14:38 urinalysi s, dipstick 2024 025 [facility], [address] [place] [address], [phone] 11/23/2024 20:08:03 glucose, fingersti ck, blood [email or web address] [place] [address], [address] [place] [address], [phone] 10/08/2024 15:20:09 urinalysi s, dipstick 2024 [facility], [address] [place] [address], [phone] 10/07/2024 19:19:04 BMP, serum or plasma 2024 025 [facility], [address] [place] [address], [phone] 10/07/2024 19:19:23 culture, urine 2024 025 [facility] (Centralized Electronic Ordering - All Locations), Patient Can Go To The Location Of Their Choice, [address] 10/08/2024 12:05:39 Referral None recorded. Procedures None recorded. Surgeries None recorded. Imaging electroca rdiogram 2024 025 [facility], [address] [place] [address], [phone] 01/15/2025 11:25:27 electroca rdiogram 2024 025 [facility], [address] [place] [address], [phone] 10/09/2024 00:24:18 Medication Orders cefpodoxi me 200 mg tablet 2024 025 [facility]/Pharmacy #2071, [address] [facility], [place], [address], 11/23/2024 19:21:07 sodium chloride 0.9 % intraveno us solution 2024 025 [email or web address] [facility]/Pharmacy #2071, [address] [place] [address], [address], 10/08/2024 15:21:50 cefpodoxi me 200 mg tablet 2024 025 [facility]/Pharmacy #2071, [address] [place], [address], 11/23/2024 18:19:44 ceftriaxo ne 1 gram solution for injection 2024 025 [email or web address] [facility]/Pharmacy #2071, [address] [place], [address], 10/07/2024 14:11:56 sodium chloride 0.9 % intraveno us solution 2024 025 [email or web address] [facility]/Pharmacy #2071, [address] [place] [address], [address], 10/07/2024 14:12:07 Patient TargetsNo targets recorded. Patient InstructionsNo instructions recorded. Reason for Referral None Reported. Results Created Date Observation Date Name Description Value Unit Range Abnormal Flag Note LastModifiedBy Organization Detail LastModifiedTime 10/08/1910/09/2024 URINE CULTU RE,CO MPREH ENSIV E urine culture,comp rehensive Final report abnormal Not Available [facility] ([facility]) [address] [place], [address], 10/09/2024 14:06:17 10/08/19 25 10/09/2024 URINE CULTU RE,CO MPREH ENSIV E result 1 Klebsi abhi oxytoc a abnormal Great er than 100,0 00 colon y formi ng units per mL Not Available [facility] ([facility]) [address] [facility], [place], [address], 10/09/2024 14:06:17 10/08/19 25 10/09/2024 URINE CULTU RE,CO MPREH ENSIV E result 2 Not applic able Not Available [facility] ([facility]) [address] [facility], [place], [address], 10/09/2024 14:06:17 10/08/19 25 10/09/2024 URINE CULTU [...] thopr im/Foster lfa S Not Available [facility] ([facility]) [address] [facility], [place], [address], 10/09/2024 14:06:17 10/09/19 25 10/08/2024 gluco se, finge rstic k, blood Blood Glucose: mg/dl 220 Not Available Main [address], [address] 10/08/2024 15:18:52 11/24/19 25 11/29/2024 CULTU RE, URINE , ROUTI NE culture, urine, routine SEE NOTE abnormal CULTU RE, URINE , ROUTI NE Micro Numbe r: [id number] Test Statu s: Final Speci men [...] lexin and lorac arbef . Not Available [facility] [address], [place], [address], 11/29/2024 10:07:23 10/09/19 25 10/08/2024 elect rocar diogr am No observ ation record ed. [email or web address] [facility] [address] [place] [address], [phone] 10/08/2024 18:13:27 01/16/20 25 01/15/2025 elect rocar diogr am No observ ation record ed. [email or web address] [address], [address] 01/15/2025 12:58:38 Result Notes None recorded. Medical Equipment None Reported. Allergies Allergen ID Allergen Name Allergen Category Reaction Reaction Severity Criticality Documentation Date Start Date Code Code System Note Provider Name and Address Organization Details Recorded Time 23592 Product containin g penicilli n (product) medicatio n Not available Not available Not available 10/07/2024 35272 8001 SNOMED Not Available [facility] - production [...] % 97 % 134/76 mm[Hg] Not Available [employer] 5 13:57:20 Date Recorded Respiratory rate Body height Body weight Oxygen saturation Oxygen saturation in Arterial blood by Pulse oximetry Heart rate Systolic And Diastolic Provider Name and Address Organization Details Last Updated DateTime 5 14 /min 157.48 cm 60663.6 g 96 % 96 % 40 /min 109/63 mm[Hg] Not Available [employer] 5 15:17:36 Date Recorded Oxygen saturation Oxygen saturation in Arterial blood by Pulse oximetry Body weight Respiratory rate Body height Body temperature Heart rate Systolic And Diastolic Provider Name and Address Organization Details Last Updated DateTime 5 95 % 95 % 86130.1 92 g 19 /min 139.7 cm 98.1 [degF] 79 /min 160/53 mm[Hg] Not Available [employer] 5 18:18:07 Date Recorded Respiratory rate Heart rate Oxygen saturation Oxygen saturation in Arterial blood by Pulse oximetry Body temperature Body weight Body height Systolic And Diastolic Provider Name and Address Organization Details Last Updated DateTime 5 16 /min 71 /min 94 % 94 % 97.4 [degF] 89785.9 68 g 162.56 cm 164/81 mm[Hg] Not Available [employer] 11:13:07 Date Recorded Oxygen saturation Oxygen saturation in Arterial blood by Pulse oximetry Heart rate Respiratory rate Body temperature Systolic And Diastolic Provider Name and Address Organization Details Last Updated DateTime 97 % 97 % 71 /min 16 /min 98.3 [degF] 218/98 mm[Hg] Not Available [facility] - production 11:15:27 Social History None recorded. Functional Status None recorded. Mental Status None recorded. Family History Nothing Reported. Medical History No medical history recorded. Gynecological HistoryNo gynecological history recorded. Obstetrics History GPAL:G 0 P 0 0 0 0 Past Encounters Encounter ID Performer Location Encounter Start Date Encounter Closed Date Diagnosis/Indication Diagnosis SNOMED-CT Code Diagnosis ICD10 Code Diagnosis IMO Codes Diagnosis Note [id number] ROSALIO MCARTHUR MD Main - [address] [address] 10/07/2024 13:57:18 10/30/2024 16:31:13 Acute urinary tract infection 355051670 N39.0 [id number] Charlotte Cao MD Main - [address] [address] 10/08/2024 15:17:33 10/08/2024 23:30:26 Altered mental status 703103478 R41.82 posible urosepsis patient is borderline hypotensiv e, clammy,, she is not hypoglycem ic. EKG reveals sinus bradycardi a at a rate of 48/there is a MA visible but the EKG did not capture [...] to compare it to/explain ed to family [id number] Kyung Posadas MD Main - [address] [address] 11/23/2024 18:17:59 11/23/2024 21:58:18 Recurrent urinary tract infection 061130793 N39.0 [id number] Urinary symptoms 8816446 08 R39.9 [id number] Theodore Bliss MD Main-[facility] Medical [address] [address] 01/15/2025 11:12:58 01/16/2025 21:34:45 Chest pain 43855863 R07.9 [id number] Charlotte Cao MD Main-[facility] ED Medical [facility] [address] [place] [address] 04/30/2025 11:15:21 04/30/2025 15:26:29 Hypertensive urgency 063414755 I16.0 [id number] w/ orthostasi s.Patient' s blood pressure at our last visit in January was 164/81 and on her BP log her highest blood pressure this week was 157 systolic blood pressure.M edic does not have meds patient takes to [...] Monzon Member ID Guarantor Name 04/30/2025 1 [facility] - DOS ON OR AFTER 2022 - DUAL ELIGIBLE - [facility] OPTIONS AND ONE CARE (MEDICARE REPLACEMENT/ADV ANTAGE - HMO) Victorina Mike [id number] Victorina Mike Notes Date Note Type Note Provider Name and Address Organization Details Recorded Time 10/07/2024 text/html ROS as noted in the HPI CRC Nurse Triage Notes (Bryan Santiago): Reason [...] PMH Reviewed at 10/07/2024 Allergies Reviewed at 10/07/2024: Comments: Shoe Cutter verified the Pt.'s name//address and phone number. [...] the counter medication - Wellness check requested. Foam Cutting Supervisor Organization Information for José Miguel Romero [employer] Legal Name: [facility] Address: [address] [place] [address], [place] [address], [employer]: Juan Wilson MD [place] No.: [id number] Foam Cutting Supervisor POC Test Results from José Miguel [...] 21 mg/dL A mmol/L HCO3: 27.5 mmol/L ...................... ...................... ...................... ...................... ...................... ...................... ......... Foam Cutting Supervisor Note From José Miguel Romero: This [...] questions and are agreeable to this plan. [facility] Lab Orders: urinalysis, dipstick: Performed BMP, serum or plasma: Performed culture, urine: Performed [facility] Medication Orders: ceftriaxone 1 gram solution for injection: Administered sodium chloride 0.9 % intravenous solution: Administered ...................... ...................... ...................... ...................... ...................... ...................... ......... [facility] Consulted: Rosalio Mcarthur ...................... ...................... ...................... ...................... ...................... ...................... ......... Disposition: Moon MCARTHUR MD [address] [facility],[address], [place], [address], [employer] 10/07/2024 14:53:49 10/08/2024 text/html ROS as noted in the [facility] CRC Nurse Triage Notes (Sirisha Segovia): Reason [...] Pain, Diabetes Mellitus Type 2PMH Reviewed at 10/08/202456Allergies Reviewed at 10/08/2024:Comments: Shoe Cutter verified the name//address and phone number. Son [...] s/s and seek emergency treatment if need Foam Cutting Supervisor Organization Information for Elma Mensah [employer] Legal Name: [employer]. Address: [address] [place] [address], [employer]: Morro Kwon MD CLIA No.: [id number] Foam Cutting Supervisor POC Test Results from Rodrick Elma Sheldon BARLOW EKG (15:22:55) EKG test performed. Attachments uploaded as part of this test result can be found under Documents section. Blood Glucose Measurement (15:22:57) Blood Glucose: 220 mg/dL ...................... ...................... ...................... ...................... ...................... ...................... ......... Foam Cutting Supervisor Note From Elma Mensah: SHELLEY makes pt [...] she is not bleeding anywhere. Pt is Anguillan-speaking only and family is present and on the phone to provide hx and translation. Family tells SHELLEY the pt was seen by [facility] yesterday and dx w/ a UTI, [...] over the past couple days. [facility] obtains vital signs and pt is [...] continues to be sleepy . [facility] contacts [facility] and discusses the above. Out of concern for urosepsis, [facility] and [facility] feel pt should be transported to the hospital for further evaluation and care. Family is amendable to the plan. [facility] orders FSBG, a 12-lead EKG, and 500mls NS fluid bolus. Finger stick and EKG are obtained. A 20ga IV is established in the L AC and 500mls NS are administered. [facility] calls 911 and pt is transported to [facility] by [facility]. [facility] is clear. Report completed by NISHA Mensah [id number]. [facility] Lab Orders: glucose, fingerstick, blood: Performed [facility] Medication Orders: sodium chloride 0.9 % intravenous solution: Administered ...................... ...................... ...................... ...................... ...................... ...................... ......... [facility] Consulted: Charlotte Cao ...................... ...................... ...................... ...................... ...................... ...................... ......... Disposition: Fulfilled SEGMD: above-patient seen by our [...] out gram-negative rods. Charlotte Cao MD [address] [facility],[address], [place], [address], [employer] 10/08/2024 17:39:10 11/23/2024 text/html CRC Nurse Triage [...] signs of when to seek emergency care. Foam Cutting Supervisor Organization Information for [employer] Legal Name: [facility] Address: [address] [place] [address], [place] [address], [employer]: Juan Wilson MD [facility] No.: [id number] Foam Cutting Supervisor POC Test Results from Og Riddle - ALS Urine Dipstick (18:09:50) Urine leukocytes: 4+ ROSITA [...] result can be found under Documents section. ...................... ...................... ...................... ...................... ...................... ...................... ......... Foam Cutting Supervisor Note From Og Riddle: Pt chief complaint [...] placed in right ac for medication administration. [facility] Kyung Posadas consulted, Pt is given 1 gram of ceftriaxone through the ac iv in a 100ml NS bag. Pt is also sent a prescription to her local Pharmacy for antibiotics. Pt is (instructed to contact her pcp or [facility] for follow up as necessary. Pt and family educated on red flag S&S and told to contact emergency services if any present. [facility] Lab Orders: urinalysis, dipstick: Performed BMP, serum or plasma: Performed culture, urine: Performed urinalysis, dipstick: Performed ...................... ...................... ...................... ...................... ...................... ...................... ......... [facility] Consulted: Kyung Posadas ...................... ...................... ...................... ...................... ...................... ...................... ......... Disposition: Fulfilled Kyung Posadas MD [address] [facility],[address], [place], [address], [employer] 11/23/2024 21:33:01 01/15/2025 text/html ROS as noted in the HPI This was a supervised home visit with heel attacher Elma Mensah. CRC Nurse Triage Notes (Sirisha Segovia): Reason For Request: Patient has chest pressure, high bp 172, and her pulse was at 72. Patient Reports: Chest pain, increased fatigueDenies: History of Heart Attack, in the setting of active chest pain Active Chest pain, radiates to neck jaw and or arm Diaphoretic/Sweating Describes as c rushing Sudden onset of nausea/Vomiting and shortness of breath. Shortness of Breath Unable to speak in full sentences without distress Palpitations, feeling dizzy CHF history, increased swelling and edema Weakness/tachycardia Chief Complaints: Chest PainPMH: Hypertension, Chronic Pain, Diabetes Mellitus Type 2PMH Reviewed at 01/15/2025:53Allergies Reviewed at 01/15/2025:53Comments: 79 y.o female complains of Chest Pain [...] signs of when to seek emergency care. Foam Cutting Supervisor Organization Information for Elma Mensah Legal Name: [employer]. A ddress: [address] [place] [address], Medical Director: Morro Kwon [facility] No.: [id number] Foam Cutting Supervisor POC Test Results from Elma Mensah EKG (10:59:09)EKG test performed.Attachments uploaded as part of this test result can be found under Documents section. ...................... ...................... ...................... ...................... ...................... ...................... ......... Foam Cutting Supervisor Note From Elma Mensah: SC6 responds to the listed address for an 79yof w/ a c/c of chest pain. Upon arrival on scene, MIH is admitted to the apartment by family and pt is found seated in a recliner in the living room of the small apartment. She is alert and smiles and tracks MI on approach. Pt, family, and [facility] recognize each other from previous encounter and rapport is easily re-established. Pt is animated and happy, no stridor or sonorous respirations are present. No facial droop or slurred speech are observed and she is not bleeding anywhere. Pt and family are Anguillan-speaking only and one family member is on [...] on the of this month. [facility] obtains vital signs and pt is [...] some ST depression in V4-V6. [facility] contacts [facility] and discusses the above and [facility] would like pt to receive further cardiac workup and converses w/ family about his concerns. Family is amendable to pt being evaluated and will transport pt to [facility]. [facility] is clear. Report completed by NISHA Mensah [id number]. ...................... ...................... ...................... ...................... ...................... ...................... ......... [facility] Consulted: Theodore Bliss ...................... ...................... ...................... ...................... ...................... ...................... ......... Disposition: Fulfilled Theodore Bliss MD [address] [place] [address],[address] [facility], [place], [address], [employer] 01/15/2025 12:23:06 04/30/2025 text/html ROS as noted in the [facility] CRC Nurse Triage Notes (Sophia Zavaleta): Reason [...] at 04/30/2025 - 10:32Allergies Reviewed at 04/30/2025 10:32Comments: 79 y.o female complains of High Blood Pressure Daughter reporting symptoms. Patient reporting nausea, headache, feeling fatigued. Daughter reports MECHANICAL ENGINEERING TECHNICIAN called reporting symptoms. Denies vision changes. No PRNs for pain. Doesn't get headaches often. MECHANICAL ENGINEERING TECHNICIAN reported hypertension - high 100s/90s. Took antihypertensive [...] ...................... ...................... ...................... ...................... ...................... ...................... ......... Foam Cutting Supervisor Note From Ernesto Macias: Dispatched to the [...] 25. Hypertension with headache Pt was assessed. C consulted. Orthostatic checked. Pt and family were [...] given to EMS crew. Pt transported to [facility] per her request. ALL times are approx. ...................... ...................... ...................... ...................... ...................... ...................... ......... [facility] Consulted: Charlotte Cao ...................... ...................... ...................... ...................... ...................... ...................... ......... Disposition: Fulfilled Charlotte Cao MD [address] [facility],[address], [place], [address], [employer] 04/30/2025 15:26:26 OBGyn Episode No OBEpisode recorded.
--- OUTSIDE RECORDS SUMMARY | 2025-04-30 16:16 | XMS_ITS | Clinical Summary ---
Author Organization [employer] Address [address] [place] [address] Care Team Providers Care Aircraft Design Engineer Name Role Phone Name, Balta MAYER Primary Care Provider [phone] Allergies Active Allergy Reactions Criticality Noted Date [...] miscIndications: Type 2 diabetes mellitus with obesity USE DIRECTED TO TEST BLOOD SUGAR TWICE DAILY 100 each 5 02/06/20 25 Active FREESTYLE LITE test stripIndications :Type 2 diabetes mellitus with obesity USE DIRECTED TO TEST BLOOD SUGAR TWICE [...] (urinary tract infection) 09/19/2024 Mild vascular dementia ([facility]) 09/03/2024 Assessment & Plan (09/03/2024 9:54 AM [...] CKD (chronic kidney disease) 03/29/2023 Atrial fibrillation ([facility]) 11/17/2022 History of arthroplasty of right knee 11/17/2022 Varicose veins of right lower extremity with inf lammation 11/17/2022 Type 2 diabetes mellitus with obesity 08/31/2022 Lentiginosis 10/13/2018 JOVANNI (obstructive sleep apnea) 10/02/2018 Overview (09/19/2024): Not using CPAP Chronic diastolic heart failure 05/25/2018 Overview (09/21/2023): [address] [id number] CARDIOLOGY NAME: RASHID SAMMIE MIKE WILDLIFE OFFICER: QUINTANILLA UNIT #: [id number] PATIENT LOCATION: EKG REFERRING PHYSICIAN: ANIYA BERNARD MD DATE OF : 41 PCP: ANIYA BERNARD MD SEX: Female DATE: 04/20/18 CARD ECHO 2D M MODE W DOPPLER COLOR [id number] SYMPTOMS,HX?: I10 ESSENTIAL HTN; R60.0 LOCALIZED EDEMA Transthoracic Echocardiogram Patient (Last, First, Middle): SAMMIE FRANCOIS E Gender: Female Date of : 1945 Age: 72 Procedure Date: 04/20/2018 Procedure Type: Transthoracic Echocardiogram Location: OP Height: 157.48 cm Weight: 81.65 kg BSA: 1.83 m2 Heart Rate: bpm BP: 144 / 78 mmHg Network Intelligence Analyst: JEAN Martino MD: ANIYA BERNARD MD Symptoms: [...] of Final JANI IYER MD Report #: [id number] Status: Signed Dict: 04/20/18/ Trans: /SUBRAH DATE [...] stable to live alone and should have inspector timers caregiver available (daughter) Choking 01/05/2024 01/21/2025 Cough [...] organization. Date Type Department Care Team Description 04/25/2025 1:00 PM EDT Clinical Support [facility] [place] [place] [address] Cindy Ly, JERROD Encounter for immunization 04/25/2025 Travel 03/28/2025 Telephone [facility] [place] [address] Name, MD Balta Durable Medical Equipment 03/27/2025 Telephone [facility] [address] [facility] [place] [address] Kanwal Taylor MA Durable Medical Equipment 03/26/2025 10:00 AM EDT Clinical Support [facility] [place] [address] Cindy Ly, JERROD Cobalamin deficiency 03/26/2025 Travel 02/22/2025 10:00 AM EDT Clinical Support [facility] [address] [place] [address] Flores Cabrera, JERROD Cobalamin deficiency 02/22/2025 Telephone [facility] [address] [place] [address] Kanwal Taylor MA oct recalls 02/22/2025 Travel 02/15/2025 Refill [facility] [address] [place] [address] Name, MD Balta 02/12/2025 Refill [facility] [address] [place] [address] Name, MD Balta Type 2 diabetes mellitus with obesity ([facility]/HCC) ([facility]) 02/07/2025 Refill [facility] [address] [place] [address] Name, MD Balta 02/05/2025 Refill [facility] [address] [place] [address] Name, MD Balta Type 2 diabetes mellitus with obesity ([facility]/HCC) ([facility]) from Last 3 Months Immunizations Immunization Administration Dates Next Due Influenza High-dose Quadriva lent Preservative Free 03/29/2023 Influenza injectable quadriv alent IIV4 with preservative 07/18/2017 Influenza injectable quadriv alent preservative free 04/18/2019 Influenza, High Dose Seasona l, Preservative Free 04/25/2025(Deferred: Patient decision - Pt declined),04/10/2018,05/12/2016,2014 Influenza, seasonal, injecta ble, preservative free 09/19/2024 [...] Description 05/14/2025 10:45 AM EST Office Visit [facility] [address] [place] [address] Name, MD Balta [address] [place] [address] 05/24/2025 10:30 AM EST Clinical Support [facility] [address] [place] [address] 06/19/2025 10:00 AM EST Office Visit [facility] [address] [place], [place] [phone] Esther Mcdonald, OD [address] [place] [address] Health Maintenance Due Date Last Done Comments [...] Screening 01/21/2026 01/21/2025 Eye Exam 12/17/2026 12/17/2024, 03/2025, 12/17/2024, Additional history exists DTaP/Tdap/Td Vaccines [...] 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) ([facility]) LIPID PANEL, STANDARD Routine 12/26/2023 1:22 PM EDT Hypertension, unspecified type from Last 3 Months or Most Recently Relevant to Health Maintenance Results * (ABNORMAL) POCT HGB A1C (01/21/2025 10:11 AM EDT) Hemoglobin A1C 5.8(A) 4.0 - 5.7 % QC Media Lot # [id number] Lot# Expiration Date Blood 01/21/2025 10:1 1 AM EDT us Balta Jeffrey MD POINT OF CARE TEST ENTER/EDIT OR DERABLES Final Result * Lipid Panel, Standard (12/26/2023 1:22 PM EDT) Triglycerides 52 <150 mg/dL [facility] Comment:Desirable Triglyceri de: less than 150 mg/dLBorderline High Triglyceride 150-199 mg/dLHigh Triglyceride: 200-499 mg/dLVery High Triglyceride: greater than or equal to 5OO mg/dL Cholesterol 169 <200 mg/dL [facility] Comment:Desirable Cholestero l: less than 200 mg/dLBorderline High Cholesterol: 200-239 mg/dLHigh Cholesterol: greater than 239 mg/dL LDL Cholesterol Calculated 92 <100 mg/dL [facility] Comment:Desirable LDL: less than 100 mg/dLNear Optimal/Above Optimal LDL: 110- 129 mg/dLBorderline High LDL: 130-159 mg/dLHigh LDL: 160-189 mg/dLVery High LDL: greater than or equal to 190 mg/dL HDL Cholesterol 67 >40 mg/dL [facility] Comment:Desirable HDL: great er than 40 mg/dL Note: This HDL assay may give artificially low results in patients with liver disease. Blood Venous blood specimen / Unknown 12/26/2023 1:22 PM EDT 12/26/2023 3:56 PM EDT us Balta Jeffrey MD LAB BLOOD ORDERABLES Final Resul t [facility] [address] [place], [place] [phone] from Last 3 Months or Most Recently Relevant to Health Maintenance Insurance [employer] (HMO D-SNP) MIROSLAVA STRAUSS [id number] Advance Directives Documents on File Type Date Recorded Patient Finisher Polisher Expl anation HealthCare Proxy 12/25/2024 12:53 PM Care Teams Aircraft Design Engineer Relationship Specialty Start Date End Date Name, MD Balta [address] [place] [id number] PCP - General Internal Medicine 06/14/22 [facility] 08/05/24
--- OUTSIDE RECORDS SUMMARY | 2025-04-30 16:16 | XMS_ITS | Clinical Summary ---
Author Organization [facility] Address [address] [address] Phone Care Team Providers Care Machine Sweeper Brush Maker Name Role Phone Pcp, Unknown Primary Care [...] 05/12/2016 INFLUENZA VACCINE (#1) 2025 COVID-19 VACCINE (1 - 2024-2 6 season) 2025 Adult Td,Tdap Booster 08/30/2029 08/30/2019 [...] Devices Not on file Insurance MIROSLAVA STRAUSS [id number] [facility] MIROSLAVA STRAUSS [id number] Care Teams Machine Sweeper Brush Maker Relationship Specialty Start Date End Date Pcp, Unknown PCP - General 07/08/23 Additional Source Comments The information contained in this document represents components of the legal health record. It is not the complete legal health record.[facility]
--- OUTSIDE RECORDS SUMMARY | 2025-04-30 16:16 | XMS_ITS | Encounter Summary ---
Author Organization [employer] Address [address] [place] [address] Care Team Providers Care Director Of Digital Marketing Name Role Phone Name, Balta MAYER Primary Care Provider Encounter Details Date Type Department Care Team (Late st Contact Info) Description 04/20/2023 Abstract [facility] [address] [place] [address] Name, MD Balta [address] [place] [address] Social History Tobacco Use Types Packs/Day Years [...] EST Office Visit [facility] [address] [place] [address] NameBalta MD [address] [place] [address] 05/24/2025 10:30 AM EST Clinical Support [facility] [address] [place] [address] 06/19/2025 10:00 AM EST Office Visit [facility] [address] [place] [address] Harry, Esther, OD [address] [place] [address] documented as of this encounter Visit Diagnoses Not on filedocumented in this encounter Additional Health Concerns Assessment Noted Time PHQ-9 Depression Total Score: 4 08/31/19 23 10:26 AM EST documented as of this encounter Care Teams Director Of Digital Marketing Relationship Specialty Start Date End Date NameBalta MD [address] [place] [id number] PCP - General Internal Medicine 06/14/22 [facility] 08/05/24 documented as of this encounter
--- OUTSIDE RECORDS SUMMARY | 2025-04-30 16:16 | XMS_ITS | Encounter Summary ---
Author Organization [employer] Address [address] [place] [address] Care Team Providers Care Divorce Lawyer Name Role Phone Name, Balta MAYER Primary Care Provider [phone] Reason for Visit * Reason Comments Med Refill Encounter Details Date Type Department Care Team (Late st Contact Info) Description 03/05/2024 Refill [facility] [address] [place], [place] [phone] Name, MD Balta [address] [place], [place] [phone] Social History Tobacco Use Types Packs/Day Years [...] Description 05/14/2025 10:45 AM EST Office Visit [facility] [address] [place] [address] Name, MD Balta [address] [place] [address] 05/24/2025 10:30 AM EST Clinical Support [facility] [address] [place] [address] 06/19/2025 10:00 AM EST Office Visit [facility] [address] [place] [address] Harry, Esther, OD [address] [place] [address] documented as of this encounter Visit Diagnoses Not on filedocumented in this encounter Additional Health Concerns Assessment Noted Time PHQ-9 Depression Total Score: 0 09/20/19 24 1:15 PM EDT documented as of this encounter Care Teams Divorce Lawyer Relationship Specialty Start Date End Date Balta Jeffrey MD [address] [place] [address] PCP - General Internal [facility] documented as of this encounter
== END 2025-04-30 13:20 | disposition home or self-care (01) ==
PROVIDERS: Emergency Provider Emergency Medicine; PCP Internal Medicine Geriatric Medicine
DX: I12.9 Hypertensive chronic kidney disease with stage 1 through stage 4 chronic kidney disease, or unspecified chronic kidney disease (principal); N18.9 Chronic kidney disease, unspecified; R51.9 Headache, unspecified; Z71.3 Dietary counseling and surveillance; Z79.899 Other long term (current) drug therapy
CPT/HCPCS: 93005; 99283

== ENCOUNTER → 2025-04-30 12:25 | Outpatient (BNV) | payer OTHER, SELFPAY | PROVIDERS: Emergency Provider Emergency Medicine; PCP Internal Medicine Geriatric Medicine; Visit Provider Internal Medicine Cardiovascular Disease | DX: R94.31 Abnormal electrocardiogram [ECG] [EKG] (principal); I10 Essential (primary) hypertension | CPT/HCPCS: 93010 ==

== ENCOUNTER → 2025-05-01 10:55 | Outpatient (REF) | payer OTHER, SELFPAY ==
--- NOTE | 2025-05-01 10:59 | CA_ITS ---
Transthoracic Echocardiogram Patient (Last, First, Middle): Victorina Francois E Gender: F Date of : 1945 Age: 79 Procedure Date: 05/01/2025 Procedure Type: Transthoracic Echocardiogram Location: OP Height: 157.48 cm Weight: 83.92 kg BSA: 1.85 m2 Heart Rate: bpm BP: 128 / 68 mmHg Apartment Rental Agent: DAVID Referring MD: Tonio Laws NP Relocation Specialist: Asael Lozoya MD Symptoms: I50.32 - Chronic diastolic (congestive) heart failure Study Quality: Good ECG Rhythm: Sinus Conclusions: - 1. Normal LV ejection fraction of 60-65% with mild LVH with impaired relaxation filling pattern 2. Moderately dilated left atrium 3. Mild calcific aortic stenosis 4. Normal RV systolic pressure 5. No gross pericardial effusion Findings Left Ventricle Normal left ventricular size and systolic function. There is mildly increased left ventricular wall thickness. The visually estimated ejection fraction is between 60-65%. Spectral Doppler is indicative of an impaired relaxation filling pattern. Right Ventricle Normal right ventricular cavity size and systolic function. Atria The left atrium is moderately dilated. There is no evidence of interatrial shunt. The right atrium is likely dilated. Aortic Valve There is mild calcification of the aortic valve. There is mild aortic valve stenosis. The peak aortic velocity is 2.16 m/s with a calculated peak gradient of 19 mmHg. The mean gradient is 8 mmHg. There is no aortic valve regurgitation. Mitral Valve There is mild anterior and moderate posterior mitral leaflet thickening. There is moderate mitral annular calcification. There is trace mitral valve regurgitation. There is no mitral valve stenosis. Pulmonic Valve The pulmonic valve is likely normal. Tricuspid Valve Normal tricuspid valve structure. There is mild tricuspid valve regurgitation. The right ventricular systolic pressure is normal. The right ventricular systolic pressure is 31 mmHg. Normal right atrial pressure. There is no evidence of pulmonary hypertension. Great Vessels All visible segments of the aorta are normal in size. The pulmonary artery was not well visualized. There is no dilatation of the ascending aorta measuring 3.30 cm. Venous The inferior vena cava is normal in size. Pericardium/Pleural There is no evidence of pericardial effusion. Prior Study Comparison Changes noted compared to prior study dated: 11/03/2022. mild aortic stenosis is noted Measurements 2D Linear Measurements IVSd: 1.23 0.6-0.9/0.6-1.0 cm LVIDd: 4.23 3.9-5.3/4.2-5.9 cm LVIDd Index: 2.29 2.4-3.2/2.2-3.1 cm/m2 LVIDs: 2.55 2.0-3.6 cm LVPWd: 1.22 0.7-1.1 cm Ao Root: 2.80 2.1-3.5 cm LA Diam: 4.50 2.7-3.8/3.0-4.0 cm LAIDs Index: 2.43 1.5-2.3 cm/m2 LV Mass: 231.29 67-162/88-224 g LV Mass Index: 125.02 43-95/49-115 g/m2 LVOT Diam: 2.00 3.0+(-)1.3 cm Mitral Valve MV Pk E: 0.66 MV PK A: 1.19 MV Decel Time: 201.00 E/A: 0.60 E'Lateral: 7.72 E'Medial: 6.09 E/E' Med: 10.80 E/E' Lat: 8.50 PHT: 59.00 MVA PHT: 3.73 Decel [place]: 3.27 Aortic Valve AoV Pk Raman: 2.16 AoV Mn Raman: 1.27 AoV VTI: 0.51 AoV Pk Grad: 19.00 Aov Mn Grad: 8.00 STEVIE Cont.VTI: 1.92 LVOT LVOT Pk Raman: 1.24 LVOT Mn Raman: 0.82 LVOT VTI: 0.31 LVOT Pk Grad: 6.00 LVOT Mn Grad: 3.00 LVOT Diam: 2.00 LVOT Area: 3.14 Diastolic Function MV Pk E: 0.66 MV Pk A: 1.19 E/A: 0.60 E'Medial: 6.09 E/E' Med: 10.80 E' Laterial: 7.72 E/E' Lat: 8.50 Tricuspid Valve TR Pk Raman: 2.63 TR Pk Grad: 28.00 RA Press: 3.00 RVSP: 31.00 Great Vessels Aorta Ao Root-2D: 2.80 2.0-3.7 cm Ao Asc: 3.30 2.1-3.4 cm Pulmonary Valve PV Pk Raman: 1.20 Peak PV Grad: 6.00 Updated in Other Vendor System with Status of Final Asael Lozoya MD electronically signed on 05/01/2025 5:25:52 PM with status of Final
--- OUTSIDE RECORDS SUMMARY | 2025-05-01 14:30 | XMS_ITS | Encounter Summary ---
Author Organization [employer] Address [address] [place] [address] Care Team Providers Care Precision Assembly Inspector Name Role Phone Name, Balta MAYER Primary Care Provider [phone] Reason for Visit * Reason Onset Date Comments ER Follow-up 08/06/2024 Encounter Details Date Type Department Care Team (Late st Contact Info) Description 08/06/2024 Telephone [facility] [address] [place], [place] [phone] Name, MD Balta [address] [place] [address] ER Follow-up Social History Tobacco Use Types [...] from pt requesting a HDF appt. Hospital: [facility] Date of admission: 07/24/24 Discharge date: 08/02/24 Diagnosed: Acute Dysphagia *Send message to [place] Clinical Care Coordinators documented in this encounter Plan of Treatment Upcoming Encounters Date Type Department Care Team ([facility] st Contact Info) Description 05/03/2025 9:30 AM EDT Office Visit [facility] [address] [place] [address] Lorena Mccormick ANP [address] [place] [address] 05/14/2025 10:45 AM EST Office Visit [facility] [address] [place] [address] Name, MD Balta [address] [place] [address] 05/24/2025 10:30 AM EST Clinical Support [facility] [address] [place] [address] 06/19/2025 10:00 AM EST Office Visit [facility] [address] [place] [address] Esther Mcdonald, OD [address] [place] [address] documented as of this encounter Visit Diagnoses Not on filedocumented in this encounter Additional Health Concerns Assessment Noted Time PHQ-9 Depression Total Score: 0 09/20/19 24 1:15 PM EDT documented as of this encounter Care Teams Precision Assembly Inspector Relationship Specialty Start Date End Date Name, MD Balta [address] [place] [address] PCP - General Internal Medicine 06/14/22 [facility] documented as of this encounter
--- OUTSIDE RECORDS SUMMARY | 2025-05-01 14:30 | XMS_ITS | Encounter Summary ---
Author Organization [facility] Address [address] [place] [address] Encounters * CPT with Hoang Santiago at [employer] on 2025-01-15 { reasonForRequest : Patient has chest pressure, high bp 172, and her pulse was at 72. , patientReports : Chest pain, increased fatigue , denies :["History of Heart Attack, in the setting of active chest pain , Active Chest pain, radia govind to neck jaw and or arm , Diaphoretic/Sweating , Describes as crushing ", Sudden onset of nausea/Vomiting and shortness of breath. , Shortness of Breath , Unable to speak in full sentences without distress , Palpitations, feeling dizzy , CHF history, increased swelling and edema , Weakness/tachycardia ],"chiefComplaints : Chest Pain , pmh : Hypertension, Chronic Pain, Diabetes Mellitus Type 2 , allergies : Penicillins , otherAllergies&quo t;:null, painAssessment : , visitOutcome : , additionalComments : 79 y.o female complains of Chest Pain\n\nSon is calling for htn. 170/78>normally 130's. \nPt does feel some pressure on the chest and tired. \nThe pain is in the middle and does not move. \nHer bp went up last night. \nShe does not have any shortness or breath or nausea.\nThe pain does not go away, she did state that the pain was less. \nThe pain was an 8 now a 4. \nShe has not had any falls or injuries. \nSon feels it might be her anxiety. \nShe does not have rapidheart rate or dizziness. HER pulse 69 \nBlood sugar, 130 \nI provided information on the mobile health provider response time and advised the patient and/or caregiver to monitor reported signs and symptoms. I discussed the warning signs of when to seek emergency care. } [facility] responds to the listed address for an 79yof w/ a c/c of chest pain. Upon arrival on scene, SHELLEY is admitted to the apartment by family and pt is found seated in a recliner in the living room of the small apartment. She is alert and smiles and tracks [facility] on approach. Pt, family, and [facility] recognizeeach other from previous encounter and rapport is easily re-established. Pt is animated and happy, no stridor or sonorous respirations are present. No facial droop or slurred speech are observed and she is not bleeding anywhere. Pt and family are Azeri-speaking only and one family member is on [...] due to this. She ran out of hermirtazapine a few days ago that she takes occasionally for her anxiety and to help her sleep. Family tracks her vital signs daily and no obvious patterns of increased HR, bp, or blood glucose are observed in the record. Pt is well cared-for and lives w/ family and they say they have been taking herout and helping her be more active recently and they have noticed a difference in her demeanor. Family reports she has a good appetite and has had no issues w/ bladder or bowels and she has not been sick. Her next PCP appointment is on the of this month. [facility] obtains vital signs and pt is assessed. Vital signs are stable and she is afebrile. Head is atraumatic and normocephalic. Sclera are clear and extraocular movements are intact. Neck is supple andtrachea is midline. Lung sounds are clear to auscultation bilaterally and cp is mildly reproduciblew/ gentle sternal compression. Abdomen is soft and nontender w/ no guarding, distension, or pulsation masses noted. No new or worsening pedal edema is present or reported. A 12-lead EKG is obtained and shows a sinus rhythm w/ T wave flattening and/or inversion inferiorly and in precordial leads as well as some ST depression in V4-V6. [facility] contacts [facility] and discusses the above and [facility] would like pt to receive further cardiac workup and converses w/ family about his concerns. Family is amendable topt being evaluated and will transport pt to [facility] POV. [facility] is clear. Report completed by NISHA Mensah [id number]. ORAL_MEDICATION, EKG, POC_FLU_STREP, COVID_TEST Written by Hoang Santiago on 2025-01-15
--- OUTSIDE RECORDS SUMMARY | 2025-05-01 14:30 | XMS_ITS | Clinical Summary ---
Author Organization [employer] Address [address] 7t [place] [address] Care Team Providers Care Skimmer Scoop Operator Name Role Phone Name, Balta MAYER Primary Care Provider [phone] Allergies Active Allergy Reactions Criticality Noted Date [...] (urinary tract infection) 09/19/2024 Mild vascular dementia ([facility]) 09/03/2024 Assessment & Plan (09/03/2024 9:54 AM [...] CKD (chronic kidney disease) 03/29/2023 Atrial fibrillation ([facility]) 11/17/2022 History of arthroplasty of right knee 11/17/2022 Varicose veins of right lower extremity with inf lammation 11/17/2022 Type 2 diabetes mellitus with obesity 08/31/2022 Lentiginosis 10/13/2018 JOVANNI (obstructive sleep apnea) 10/02/2018 Overview (09/19/2024): Not using CPAP Chronic diastolic heart failure 05/25/2018 Overview (09/21/2023): [address] [address] CARDIOLOGY NAME: RASHID SAMMIE GOOD YEAST CAKE CUTTER: QUINTANILLA UNIT #: [id number] PATIENT LOCATION: EKG REFERRING PHYSICIAN: ANIYA BERNARD MD DATE OF : 41 PCP: ANIYA BERNARD MD SEX: Female DATE: 04/20/18 CARD ECHO 2D M MODE W DOPPLER COLOR [id number] SYMPTOMS,HX?: I10 ESSENTIAL HTN; R60.0 LOCALIZED EDEMA Transthoracic Echocardiogram Patient (Last, First, Middle): SAMMIE FRANCOIS E Gender: Female Date of : 1945 Age: 72 Procedure Date: 04/20/2018 Procedure Type: Transthoracic Echocardiogram Location: OP Height: 157.48 cm Weight: 81.65 kg BSA: 1.83 m2 Heart Rate: bpm BP: 144 / 78 mmHg Marketing [employer]: JEAN Maritno MD: ANIYA BERNARD MD Symptoms: I10 ESSENTIAL [...] of Final JANI IYER MD Report #: [id number] Status: Signed Dict: 04/20/18/ Trans: /SUBRAH DATE [...] to live alone and should have multimedia producer caregiver available (daughter) Choking 01/05/2024 01/21/2025 Cough [...] organization. Date Type Department Care Team Description 05/01/2025 Telephone [facility] [place] [address] Balta Jeffrey MD ER Follow-up 04/25/2025 1:00 PM EDT Clinical Support [facility] [address] Cindy Ly, JERROD Encounter for immunization 04/25/2025 Travel 03/28/2025 Telephone [facility] [place] [address] Balta Jeffrey MD Durable Medical Equipment 03/27/2025 Telephone [facility] [place] [address] Kanwal Taylor MA Durable Medical Equipment 03/26/2025 10:00 AM EDT Clinical Support [facility] [address] [facility] [place] [address] Cindy Ly, JERROD Cobalamin deficiency 03/26/2025 Travel 02/22/2025 10:00 AM EDT Clinical Support [facility] [address] [facility] [place] [address] Flores Cabrera, JERROD Cobalamin deficiency 02/22/2025 Telephone [facility] [address] [facility] [place] [address] Kanwal Taylor MA oct recalls 02/22/2025 Travel 02/15/2025 Refill [facility] [address] [facility] [place] [address] Name, MD Balta 02/12/2025 Refill [facility] [address] [place] [address] Name, MD Balat Type 2 diabetes mellitus with obesity ([facility]/H[facility]) ([facility]) 02/07/2025 Refill [facility] [place] [address] Name, MD Balta 02/05/2025 Refill [facility] 230 [place] [address] Name, MD Balta Type 2 diabetes mellitus with obesity ([facility]/HCC) ([facility]) from Last 3 Months Immunizations Immunization Administration [...] Care Team (Late st Contact Info) Description 05/03/2025 9:30 AM EDT Office Visit [facility] 230 [place] [address] Lorena Mccormick, TEE 230 [place] [address] 05/14/2025 10:45 AM EST Office Visit [address] [address] Name, MD Balta 230 [place] [address] 05/24/2025 10:30 AM EST Clinical Support [facility] 230 [place] [address] 06/19/2025 10:00 AM EST Office Visit [facility] [address] [place] [address] Harry, Esther, OD 230 [place] [address] Health Maintenance Due Date Last Done Comments [...] 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) ([facility]) LIPID PANEL, STANDARD Routine 12/26/2023 1:22 PM [...] PM EDT) Triglycerides 52 <150 mg/dL [facility] Comment:Desirable Triglyceri de: less than 150 mg/dLBorderline High Triglyceride 150-199 mg/dLHigh Triglyceride: 200-499 mg/dLVery High Triglyceride: greater than or equal to 5OO mg/dL Cholesterol 169 <200 mg/dL [facility] Comment:Desirable Cholestero l: less than 200 mg/dLBorderline High Cholesterol: 200-239 mg/dLHigh Cholesterol: greater than 239 mg/dL LDL Cholesterol Calculated 92 <100 mg/dL [facility] Comment:Desirable LDL: less than 100 mg/dLNear Optimal/Above Optimal LDL: 110- 129 mg/dLBorderline High LDL: 130-159 mg/dLHigh LDL: 160-189 mg/dLVery High LDL: greater than or equal to 190 mg/dL HDL Cholesterol 67 >40 mg/dL [facility] Comment:Desirable HDL: great er than 40 mg/dL Note: This HDL assay may give artificially low results in patients with liver disease. Blood Venous blood specimen / Unknown 12/26/2023 1:22 PM EDT 12/26/2023 3:56 PM EDT us Balta Jeffrey MD LAB BLOOD ORDERABLES Final Resul t [facility] [address] [place] [address] [phone] from Last 3 Months or Most Recently Relevant to Health Maintenance Insurance [facility] OPTIONS (HMO D-SNP) Advance Directives Documents on File Type Date Recorded Patient Buffet Runner Expl anation HealthCare Proxy 12/25/2024 12:53 PM Care Teams Skimmer Scoop Operator Relationship Specialty Start Date End Date Name, MD Balta [address] [place] [address] PCP - General Internal Medicine 06/14/22 [place] ZAIRE 08/05/24
--- OUTSIDE RECORDS SUMMARY | 2025-05-01 14:30 | XMS_ITS | Encounter Summary ---
Author Organization [employer] Address [address] 7t [place] [address] Care Team Providers Care Passenger Car Conductor Name Role Phone Name, Balta MAYER Primary Care Provider [phone] Encounter Details Date Type Department Care Team (Late st Contact Info) Description 07/20/2024 Community Care Management [facility] 230 [place] [address] Epiccare Link, Physician, Social History Tobacco Use [...] Description 05/03/2025 9:30 AM EDT Office Visit [facility] [address] [place] [address] Lorena Mccormick ANP 230 [place] [address] 05/14/2025 10:45 AM EST Office Visit [address] [address] Balta Jeffrey MD 230 [place] [address] 05/24/2025 10:30 AM EST Clinical Support [address] [address] 06/19/2025 10:00 AM EST Office Visit [facility] [address] [place] [address] Harry, Esther, OD 230 [place] [address] documented as of this encounter Visit Diagnoses Not on filedocumented in this encounter Additional Health Concerns Assessment Noted Time PHQ-9 Depression Total Score: 0 09/20/19 24 1:15 PM EDT documented as of this encounter Care Teams Passenger Car Conductor Relationship Specialty Start Date End Date Balta Jeffrey MD [address] [place] [address] PCP - General Internal Medicine 06/14/22 [place] TAI 08/05/24 documented as of this encounter
--- OUTSIDE RECORDS SUMMARY | 2025-05-01 14:30 | XMS_ITS | Encounter Summary ---
Author Organization [employer] Address [address] [facility] [address]t h Floor [place] [id number] Care Team Providers Care Glass Unloading Equipment Tender Name Role Phone Name, Balta MAYER Primary Care Provider [phone] Encounter Details Date Type Department Care Team (Late st Contact Info) Description 06/14/2022 Orders Only [address] [address] Audrey Mcginnis, JERROD Social History Tobacco Use [...] Description 05/03/2025 9:30 AM EDT Office Visit [address] [address] Lorena Mccormick ANP [address] [place] [address] 05/14/2025 10:45 AM EST Office Visit [address] [address] Name, MD Balta [address] [place] [address] 05/24/2025 10:30 AM EST Clinical Support [address] [address] 06/19/2025 10:00 AM EST Office Visit [facility] [address] [place] [address] Esther Mcdonald, OD 230 [place] [address] documented as of this encounter Visit Diagnoses Not on filedocumented in this encounter Care Teams Glass Unloading Equipment Tender Relationship Specialty Start Date End Date Name, MD Balta 230 [place] [address] PCP - General Internal Medicine [facility] documented as of this encounter
--- OUTSIDE RECORDS SUMMARY | 2025-05-01 14:31 | XMS_ITS | Encounter Summary ---
Author Organization [employer] Address [address] 7t [place] [address] Care Team Providers Care Software Development Analyst Name Role Phone Name, Balta MAYER Primary Care Provider [phone] Reason for Visit * Reason Onset Date Comments ER Follow-up 05/01/2025 Encounter Details Date Type Department Care Team (Late st Contact Info) Description 05/01/2025 Telephone [facility] 230 [place], [place] [phone] Name, MD Balta 230 [place] [address] ER Follow-up Social History Tobacco Use Types [...] encounter Miscellaneous Notes * Telephone Encounter - May Bhat RN - 05/01/2025 2:21 PM EDT TC to pt son with S director executive communications. Pt son states that pt BP has been high this morning with SBP 189and then took medications and BP is 172 this morning after. No BP to report at time of call. Pt sondenies pt having symptoms currently of chest pain, shortness of breath, headaches, nausea, blurry vision or sudden vision changes. ER follow up scheduled for 05/03/25 on marlene team jasmin Mccormick and advised pt son of time and location. Advised to continue monitoring BP daily and to continue taking medication daily. Advised if pt begins to experience symptoms screened for above to check pt BP and if SBP >160 to contact office for triage and advised of after hours triage services. Pt son verbalized understanding and agreement with plan. Protocol Used: Blood Pressure - High (Adult) Protocol-Based Disposition: See in Office or Video Visit Today Override (Final) Disposition: See in Office or Video Visit within 3 Days Override Reason: No appointments available Video visit offer not recorded Positive Triage Question: * Systolic BP >= 180 OR Diastolic >= 110 * All higher-acuity triage questions were negative Care Advice Discussed: * High Blood Pressure * Reasons To Call Back - Headache, blurred vision, difficulty talking, or difficulty walking occurs - Chest pain or difficulty breathing occurs - You want to go into the office for a blood pressure check - You become worse * Telephone Encounter - Hyacinth Bill - 05/01/2025 1:10 PM EDT Patient calling to report ED visit on : Date: 04/30 Hospital: [facility] Seen for: High blood pressure Symptomatic Yes *if yes message should go to Triage Patient advised will forward to team nurse for follow up Contact pt at [phone] documented in this encounter Plan of Treatment Upcoming Encounters Date Type Department Care Team ([facility] st Contact Info) Description 05/03/2025 9:30 AM EDT Office Visit [facility] 230 [place] [address] Lorena Mccormick ANP 230 [place] [address] 05/14/2025 10:45 AM EST Office Visit [facility] 230 [place] [address] Balta Jeffrey MD 230 [place] [address] 05/24/2025 10:30 AM EST Clinical Support [facility] 230 [place] [address] 06/19/2025 10:00 AM EST Office Visit [facility] [address] [place] [address] Esther Mcdonald, OD 230 [place] [address] documented as of this encounter Visit Diagnoses Not on filedocumented in this encounter Additional Health Concerns Assessment Noted Time PHQ-9 Depression Total Score: 10 01/21/ 025 10:31 AM EDT documented as of this encounter Care Teams Software Development Analyst Relationship Specialty Start Date End Date Balta Jeffrey MD 230 [place] [address] PCP - General Internal Medicine 06/14/22 [place] [facility] 08/05/24 documented as of this encounter
--- OUTSIDE RECORDS SUMMARY | 2025-05-01 14:31 | XMS_ITS | Clinical Summary ---
Author Organization [facility] Address [address] [address] Phone Care Team Providers Care Quality Management Coordinator Name Role Phone Pcp, Unknown Primary Care [...] Devices Not on file Insurance MIROSLAVA STRAUSS [id number] [facility] MIROSLAVA STRAUSS [id number] Care Teams Quality Management Coordinator Relationship Specialty Start Date End Date Pcp, Unknown PCP - General 07/08/23 Additional Source Comments The information contained in this document represents components of the legal health record. It is not the complete legal health record.[facility]
--- OUTSIDE RECORDS SUMMARY | 2025-05-01 14:31 | XMS_ITS | Encounter Summary ---
Author Organization [employer] Address [address] 7t [place] [address] Care Team Providers Care Field Training Manager Name Role Phone Name, Balta MAYER Primary Care Provider [phone] Reason for Visit * Reason Onset Date Comments Hospital Follow-up 10/18/2024 Encounter Details Date Type Department Care Team (Late st Contact Info) Description 10/18/2024 Telephone [facility] 230 [place], [place] [phone] Name, MD Balta 230 [place] [address] Hospital Follow-up Social History Tobacco Use Types [...] - 10/18/2024 1:12 PM EDT Tc from home care and home health aides teacher Victorina requesting a HDF appt. Hospital: [facility] Date of admission: 10/08/24 Discharge date: 10/16/24 Diagnosed: Kidney stones and blood infection Contact pt daughter at [phone] (cook islander) documented in this encounter Plan of Treatment Upcoming Encounters Date Type Department Care Team (Late st Contact Info) Description 05/03/2025 9:30 AM EDT Office Visit [address] [address] Lorena Mccormick ANP 230 [place] [address] 05/14/2025 10:45 AM EST Office Visit [address] [address] Name, MD Balta [address] [place] [address] 05/24/2025 10:30 AM EST Clinical Support [address] [address] 06/19/2025 10:00 AM EST Office Visit [facility] [address] [place] [address] Esther Mcdonald, OD 230 [place] [address] documented as of this encounter Visit Diagnoses Not on filedocumented in this encounter Additional Health Concerns Assessment Noted Time PHQ-9 Depression Total Score: 0 09/20/19 24 1:15 PM EDT documented as of this encounter Care Teams Field Training Manager Relationship Specialty Start Date End Date Name, MD Balta [address] [place] [address] PCP - General Internal Medicine 06/14/22 [place] ZAIRE 08/05/24 documented as of this encounter
--- OUTSIDE RECORDS SUMMARY | 2025-05-01 14:31 | XMS_ITS | Encounter Summary ---
Author Organization [employer] Address [address] 7t [place] [address] Care Team Providers Care Clay House Worker Name Role Phone Name, Balta MAYER Primary Care Provider [phone] Reason for Visit * Reason Comments Med Refill Encounter Details Date Type Department Care Team (Late st Contact Info) Description 03/05/2024 Refill [facility] [address] [place], [place] [phone] Name, MD Balta 230 [place], [place] [phone] Social History Tobacco Use Types Packs/Day Years [...] Description 05/03/2025 9:30 AM EDT Office Visit [facility] [address] [place] [address] Lorena Mccormick ANP 230 [place] [address] 05/14/2025 10:45 AM EST Office Visit [address] [address] Balta Jeffrey MD [address] [place] [address] 05/24/2025 10:30 AM EST Clinical Support [facility] [address] [place] [address] 06/19/2025 10:00 AM EST Office Visit [facility] [address] [place] [address] Harry, Esther, OD 230 [place] [address] documented as of this encounter Visit Diagnoses Not on filedocumented in this encounter Additional Health Concerns Assessment Noted Time PHQ-9 Depression Total Score: 0 09/20/19 24 1:15 PM EDT documented as of this encounter Care Teams Clay House Worker Relationship Specialty Start Date End Date Balta Jeffrey MD 230 [place] [address] PCP - General Internal Medicine 06/14/22 [place] TAI 08/05/24 documented as of this encounter
--- OUTSIDE RECORDS SUMMARY | 2025-05-01 14:31 | XMS_ITS | Encounter Summary ---
Author Organization [employer] Address [address] [facility] 7t [place] [address] Care Team Providers Care Highway Administrative Engineer Name Role Phone Name, Balta MAYER Primary Care Provider [phone] Reason for Visit * Reason Onset Date Comments Call Back Request 08/16/2024 Encounter Details Date Type Department Care Team (Late st Contact Info) Description 08/16/2024 Telephone [facility] 230 [place], [place] [phone] Name, MD Balta 230 [place] [address] Call Back Request Social History Tobacco Use [...] the B12 injection. Please contact Daughter at [phone]. (Lithuanian Speaker) documented in this encounter Plan of Treatment Upcoming Encounters Date Type Department Care Team (Late st Contact Info) Description 05/03/2025 9:30 AM EDT Office Visit [facility] [address] [place] [address] Lorena Mccormick ANP 230 [place] [address] 05/14/2025 10:45 AM EST Office Visit [address] [address] Name, MD Balta [address] [place] [address] 05/24/2025 10:30 AM EST Clinical Support [address] [address] 06/19/2025 10:00 AM EST Office Visit [facility] [address] [place] [address] Esther Mcdonald OD 230 [place] [address] documented as of this encounter Visit Diagnoses Not on filedocumented in this encounter Additional Health Concerns Assessment Noted Time PHQ-9 Depression Total Score: 0 09/20/19 24 1:15 PM EDT documented as of this encounter Care Teams Highway Administrative Engineer Relationship Specialty Start Date End Date Name, MD Balta 230 [place] [address] PCP - General Internal Medicine 06/14[facility]22 [facility] documented as of this encounter
--- OUTSIDE RECORDS SUMMARY | 2025-05-01 14:31 | XMS_ITS | Encounter Summary ---
Author Organization [employer] Address [address] 7[address] [place] [address] Care Team Providers Care Chief Innovation Officer Name Role Phone Name, Balta MAYER Primary Care Provider [phone] Encounter Details Date Type Department Care Team (Late st Contact Info) Description 04/20/2023 Abstract [facility] [address] [place] [address] Name, MD Balta [address] [place] [address] Social History Tobacco Use Types Packs/Day Years [...] Description 05/03/2025 9:30 AM EDT Office Visit [facility] [address] [place] [address] Lorena Mccormick ANP [address] [place] [address] 05/14/2025 10:45 AM EST Office Visit [address] [address] NameBalta MD 230 [place] [address] 05/24/2025 10:30 AM EST Clinical Support [address] [address] 06/19/2025 10:00 AM EST Office Visit [facility] [address] [place] [address] Esther Mcdonald, OD 230 [place] [address] documented as of this encounter Visit Diagnoses Not on filedocumented in this encounter Additional Health Concerns Assessment Noted Time PHQ-9 Depression Total Score: 4 08/31/19 23 10:26 AM EST documented as of this encounter Care Teams Chief Innovation Officer Relationship Specialty Start Date End Date Name, MD Balta 230 [place] [address] PCP - General Internal Medicine 06/14/22 [facility] 08/05/24 documented as of this encounter
--- OUTSIDE RECORDS SUMMARY | 2025-05-01 14:31 | XMS_ITS | Continuity of Care Document ---
Author Name Hoang Santiago Address [address] [place] [id number] Organization Unknown Address [address] [place] [address] Medications No known medications Problems No known problems
--- OUTSIDE RECORDS SUMMARY | 2025-05-01 14:31 | XMS_ITS | Continuity of Care Document ---
Author Name [facility], Medical Address [address] [place] [address] Organization Unknown Address [address] [place] [address] Medications No known medications Problems No known problems
--- OUTSIDE RECORDS SUMMARY | 2025-05-01 14:32 | XMS_ITS | Encounter Summary ---
Author Organization [facility] Address [address] [place] [address] Encounters * CPT with Medical [facility] at Yes[facility] on 2025-04-30 { reasonForRequest : BP high/upset stomach/fatigue , patientReports :& quot; , denies :[ Worst Headache of life , New onset of vision loss&qu ot;, Sudden onset -unilateral weakness/gait disturbance , Fall with head strike and altered LOC , New onset of Slurred speech or difficulty finding words , Sudden Mental status changes , Head pain with fever chills and neck pain , Seizure activity ], chiefComplaints : High Blood Pressure , pmh : Hyperte nsion, Chronic Pain, Diabetes Mellitus Type 2 , allergies : Penicillins ,&q uot;otherAllergies :null, painAssessment : , visitOutcome :&quot ; , additionalComments : 79 y.o female complains of High Blood Pressure\n\nDaugh ter reporting symptoms. Patient reporting nausea, headache, feeling fatigued. Daughter reports CIGARETTE FILTER INSPECTOR called reporting symptoms. Denies vision changes. No PRNs for pain. Doesn't get headaches often. PCAreported hypertension - high 100s/90s. Took antihypertensive at 7am - lisinopril. Not on any other antihypertensives. Denies chest pain, chest tightness or shortness of breath. Denies fever. Not on anticoagulation. Denies recent kidney issues. Requesting Community Health visit. \n\nI provided information on the mobile health provider response time and advised the patient and/or caregiver to monitor reported signs and symptoms. I discussed the warning signs of when to seek emergency care. } Dispatched to the call address for the female with hypertension. Pt states she woke up with a headache and high blood pressure, she is also complaining of abd pain that she describes as gas". Pt states she has never had her [...] be best option at this time. 911 calledfor Pt. I waited on scene for EMS. Transfer of care given to EMS crew. Pt transported to [facility] per her request. ALL times are approx. IV_(FLUIDS_AND/OR_MEDICATION), MEDICATION_IM, ORAL_MEDICATION, EKG, ORTHOSTATIC_VITAL_SIGNS Written by Medical [facility] on 2025-04-30
== END ==
LOC: HO.CARD 10:55
DX: I50.32 Chronic diastolic (congestive) heart failure (principal)
CPT/HCPCS: 93306

== ENCOUNTER → 2025-05-01 10:59 | Outpatient (BNV) | payer OTHER, SELFPAY | PROVIDERS: Visit Provider Internal Medicine Cardiovascular Disease | DX: I51.7 Cardiomegaly (principal); I35.0 Nonrheumatic aortic (valve) stenosis | CPT/HCPCS: 93306 ==

== ENCOUNTER 2025-05-21 09:05 | Outpatient (AMB) | payer OTHER, SELFPAY ==
--- NOTE | 2025-05-21 09:07 | A.OFFVIS_ITS ---
Intake Visit Reasons: 3m/Recurrent UTI/Kidney stone Intake Note: Patient is present for 3M/RECURRENT UTI/KIDNEY STONES Urology Medication:OXYBUTYNIN Antibiotic Allergy:PENICILLINS Blood Thinner:APIXABAN TODAY'S PVR:0ML'S Nuclear Fuel Processing Technician Required: No Nuclear Fuel Processing Technician Services: Nuclear Fuel Processing Technician Present Nuclear Fuel Processing Technician Name: [id number] Jose Allergies Penicillins (PENICILLINS) Allergy (Intermediate, Verified 05/21/25 09:28) NAUSEA/HIVES metformin Adverse Reaction (Unknown, Verified 05/21/25 09:28) Diarrhea Medication List - Last Reconciled 05/21/25 by JEAN Stark-AUTUMN apixaban (Eliquis) 5 mg PO BID atorvastatin 40 mg PO BEDTIME blood pressure monitor As directed calcium carbonate 600 mg PO DAILY cholecalciferol (vitamin D3) 1 tab PO DAILY cyanocobalamin (vitamin B-12) 1,000 mcg IM Q28D furosemide (Lasix) 40 mg PO DAILY magnesium hydroxide (Silva Milk of Magnesia) 5 mL PO BEDTIME metoclopramide HCl (Reglan) 10 mg PO QIDACHS oxybutynin chloride 5 mg PO BID walker Folding front wheeled walker HPI Comments Details: Victorina is a very pleasant 79-year-old Maldivian-speaking female patient of Dr. Jeffrey. She has a past medical history of diverticulitis, chronic diastolic heart failure, dementia, nephrolithiasis, chronic kidney disease, renal insufficiency, overactive bladder, pneumoniae, asthma, GERD, diabetes, osteoarthritis, hyperlipidemia, hypertension, and obstructive sleep apnea. She presents to the office today for follow-up of her nephrolithiasis, recurrent urinary tract infections, and overactive bladder. In discussion with the patient today she denies having had any bothersome urinary issues or concerns since her last office visit here. She currently denies any bothersome urinary issues or concerns. She denies any UTI like symptoms. She reports compliance with oxybutynin as prescribed. We did discuss oxybutynin in the setting of patient's age and beers criteria. Unable to obtain urine for urinalysis today as patient unable to void however PVR 0 mL. When asked she denies urinary urgency, urinary frequency, incontinence, nocturia, hematuria, dysuria, foul smelling urine, changes to urinary stream, flank pain, fever, and or chills. She is happy with her current voiding parameters. Patient with a previous surgical history for her nephrolithiasis. We did discussed obtaining more recent renal imaging given her history of nephrolithiasis. All questions were answered. She otherwise offers no other issues or concerns at this time. PREVIOUS OFFICE NOTE: 01/17/25--here for cysto/stent removal Ureteral stent inserted CTAP - 09/12/24-- proximal 4mm ureteral stone fu renal 11/2024, negative for stones, KUB - stent migrated distally History of Present Illness - The patient is an 79-year-old female presenting with cystoscopy and ureteral stent removal. - The patient had a ureteral stent placed on October 02 due to hydronephrosis secondary to a 4 mm renal calculus. - A follow-up renal ultrasound on November 2024 showed no renal calculi, but the stent was not visualized. - A follow-up KUB confirmed the presence of the ureteral stent. - Diet modification was discussed and a pamphlet was provided to the patient and her daughter. Results - Renal ultrasound on November 2024: Negative for renal calculi, stent not visualized, as stent had migrated distally - KUB: Confirmed presence of ureteral stent. Plan - Discussed diet modification with the patient and provide educational pamphlet. - Prescribe Macrobid 100 mg twice a day for 5 days pending urine culture results. - Schedule follow-up in 4 months with the nurse practitioner to follow patient for recurrent UTI's, monitor and manage for recurrent kidney stones FORMERLY [facility], [facility] Medical History Diarrhea Diverticulitis Abdominal bloating Epigastric pain Chronic diastolic heart failure Hydronephrosis, right Ureteral stone Dementia Calculus of proximal right ureter CKD (chronic kidney disease) Renal insufficiency Tubular adenoma of colon Preop cardiovascular exam Urinary urgency Pneumonia Hospital discharge follow-up Asthma MARIA R (acute kidney injury) GERD (gastroesophageal reflux disease) Diabetes Osteoarthritis Hyperlipidemia Hypertension JOVANNI (obstructive sleep apnea) Surgical History Hx of cataract surgery Status post total knee replacement, right History of arthroplasty of right knee Hx of colonoscopy H/O: hysterectomy History of salpingoophorectomy History of tonsillectomy Family History Father HTN (hypertension) Mother HTN (hypertension) CVD (cardiovascular disease) Daughter Bone cancer Father Cancer Social History Household Members: Family Housing: House Are you a primary critical care technician to a significant other at home: No Do you presently have visiting nurse or other home services: No Alcohol intake: never Comment: family at bedside Patient Tobacco Use Status: Never used Tobacco e-Cigarette/Vaping Use: Never Used Second Hand Smoke Exposure: No service: No Current occupational status: retired Current occupation: Right handed Review of Systems Const All systems reviewed & are unremarkable except as noted in HPI and below Physical Exam Const General: cooperative, healthy appearing, comfortable, no acute distress, well developed, alert and awake Nutritional Appearance: overweight Orientation/consciousness: patient oriented x3 Limitations: language barrier and wheelchair HEENT Head: Yes normal to inspection, Yes normocephalic and Yes atraumatic Ears: hearing grossly normal bilaterally Eyes General: appearance normal, both eyes and all related structures Neck Neck: Yes normal visual inspection and Yes trachea midline Chest Chest palpation & inspection: normal inspection of the chest Resp Effort & Inspection: normal respiratory effort and able to speak in complete sentences Cardio Rate: regular rate GI Inspection: Yes normal to inspection General: Yes no CVA tenderness Back/Spine/Pelvis Back: no CVA tenderness Skin General skin exam: no rashes or lesions noted Neuro General: patient oriented x3 Extrem General: Yes normal to inspection Psych Appearance: grossly normal and well kempt Mental Status: mental status grossly normal Speech and movement: Normal speech and movement present and Clear speech present Affect: normal affect Attitude: cooperative Thought process: Normal thought process present Thought content: Normal thought content present Insight: Fair insight present (Psych) Judgement: Fair judgement present (Psych) Office Procedures Post Void Residual Post Residual Void Post Void Residual (PVR): 0 36053-Ztbq Void Residual by ultrasound Assessment & Plan Assessment & Plan (1) UTI (urinary tract infection): Code(s): N39.0 - Urinary tract infection, site not specified Category: Medical (2) Kidney stone: Code(s): N20.0 - Calculus of kidney Category: Medical (3) OAB (overactive bladder): Code(s): N32.81 - Overactive bladder Category: Medical Plan Unable to obtain urine for urinalysis as patient unable to void however PVR 0 mL. She currently denies any bothersome urinary issues or concerns. Will discontinue oxybutynin at this time. Start VESIcare as discussed and prescribed. We did discuss potential initiation of Estrace cream given history of recurrent urinary tract infections. Discussed UTI prevention with D mannose supplement, vitamin-C, increasing fluid intake, behavioral therapy with timed voiding, perineal hygiene and postcoital voiding, and management of constipation with stool softeners and increased fiber intake. Will obtain retroperitoneal ultrasound for further assessment evaluation. Follow-up in 3-4 months with imaging; or sooner with any issues, concerns, and or questions. Orders: Orders US retroperitoneal comp 3 Months N20.0 - Calculus of kidney, N32.81 - Overactive bladder, N39.0 - Urinary tract infection, site not specified Medications: New solifenacin (Vesicare) 5 mg PO DAILY 30 tabs 3RF 30 days Patient Instructions: The patient had an opportunity to ask questions regarding the treatment plan. All questions were answered. Physical exam, labs, and imaging were discussed and reviewed in detail. As well as risks, benefits, and discussion of treatment choices. No major barriers to understanding were identified. The patient expressed understanding and agreement with the above treatment plan. The patient was made aware they should contact our office by phone for worsening of their current condition, the appearance of new symptoms, or with any questions or concerns. Compliance is encouraged with any medications and follow up testing that is ordered. It is a privilege to be allowed the opportunity to participate in? your urological care.? Again, if you have any questions or concerns If you have any questions or concerns please do not hesitate to contact me. The office is [phone]. This note is constructed using voice recognition software. While every effort has been made to ensure accuracy radio time buyer errors may have been included. Yours sincerely, YOAN Stark Coding Level of Care Code Est Pt Level 4 (68265) Complex EM visit Add On G2211 Diagnoses UTI (urinary tract infection) N39.0 Kidney stone N20.0 OAB (overactive bladder) N32.81 CPT Codes Post Residual Void - PVR CPT Code: 13670-Mwzx Void Residual by ultrasound ([id number])
--- OUTSIDE RECORDS SUMMARY | 2025-05-21 09:44 | XMS_ITS | Encounter Summary ---
Author Organization [employer] Address [address] [place] [address] Care Team Providers Care Excelsior Machine Operator Name Role Phone Name, Balta MAYER Primary Care Provider [phone] Reason for Visit * Reason Onset Date Comments ER Follow-up 08/06/2024 Encounter Details Date Type Department Care Team (Late st Contact Info) Description 08/06/2024 Telephone [facility] [address] [place], [place] [phone] Name, MD Balta [address] [place] [address] ER Follow-up Social History Tobacco Use Types [...] requesting a HDF appt. Hospital: [facility] Date of admission: 07/24/24 Discharge date: 08/02/24 Diagnosed: Acute Dysphagia *Send message to [place] Clinical Care Coordinators documented in this encounter Plan of Treatment Upcoming Encounters Date Type Department Care Team (Late st Contact Info) Description 05/24/2025 10:30 AM EST Clinical Support [facility] [address] [place] [address] 06/19/2025 10:00 AM EST Office Visit [facility] [address] [place] [address] Esther Mcdonald, OD [address] [place] [address] documented as of this encounter Visit Diagnoses Not on filedocumented in this encounter Additional Health Concerns Assessment Noted Time PHQ-9 Depression Total Score: 0 09/20/19 24 1:15 PM EDT documented as of this encounter Care Teams Excelsior Machine Operator Relationship Specialty Start Date End Date Name, MD Balta [address] [place] [address] PCP - General Internal Medicine 06/14/22 [facility]ir [facility] 08/05/24 documented as of this encounter
--- OUTSIDE RECORDS SUMMARY | 2025-05-21 09:44 | XMS_ITS | Encounter Summary ---
Author Organization [employer] Address [address] [place] [address] Care Team Providers Care Lozenge Maker Helper Name Role Phone Name, Balta MAYER Primary Care Provider [phone] Encounter Details Date Type Department Care Team (Late st Contact Info) Description 07/20/2024 Community Care Management [facility] [address] [place] [address] Epiccare Link, Physician, Social History Tobacco Use [...] Description 05/24/2025 10:30 AM EST Clinical Support [facility] [address] [place] [address] 06/19/2025 10:00 AM EST Office Visit [facility] [address] [place] [address] Harry, Esther, OD [address] [place] [address] documented as of this encounter Visit Diagnoses Not on filedocumented in this encounter Additional Health Concerns Assessment Noted Time PHQ-9 Depression Total Score: 0 09/20/19 24 1:15 PM EDT documented as of this encounter Care Teams Lozenge Maker Helper Relationship Specialty Start Date End Date Name, MD Balta [address] [place] [address] PCP - General Internal Medicine [facility] [facility] [facility] documented as of this encounter
--- OUTSIDE RECORDS SUMMARY | 2025-05-21 09:44 | XMS_ITS | Encounter Summary ---
Author Organization [employer] Address [address] [place] [address] Care Team Providers Care Eyelet Cutter Name Role Phone Name, Balta MAYER Primary Care Provider [phone] Reason for Visit * Reason Comments Med Refill Encounter Details Date Type Department Care Team (Late st Contact Info) Description 05/16/2025 Refill [facility] [address] [place], [place] [phone] Lorena Mccormick, ANP [address] [place] [address] Social History Tobacco Use Types Packs/Day Years [...] Description 05/24/2025 10:30 AM EST Clinical Support [facility] [address] [place] [address] 06/19/2025 10:00 AM EST Office Visit [facility] [address] [place] [address] Harry, Esther, OD [address] [place] [address] documented as of this encounter Visit Diagnoses Not on filedocumented in this encounter Additional Health Concerns Assessment Noted Time PHQ-9 Depression Total Score: 10 025 10:31 AM EDT documented as of this encounter Care Teams Eyelet Cutter Relationship Specialty Start Date End Date Name, MD Balta [address] [place] [address] PCP - General Internal Medicine 06/14/22 [facility] 08/05/24 documented as of this encounter
--- OUTSIDE RECORDS SUMMARY | 2025-05-21 09:45 | XMS_ITS | Encounter Summary ---
Author Organization [employer] Address [address] [place] [phone] Care Team Providers Care Chemical Engineering Professor Name Role Phone Name, Balta MAYER Primary Care Provider [phone] Encounter Details Date Type Department Care Team (Late st Contact Info) Description 06/14/2022 Orders Only [facility] [address] [place] [address] Audrey Mcginnis, JERROD Social History Tobacco Use [...] Description 05/24/2025 10:30 AM EST Clinical Support [address] [address] 06/19/2025 10:00 AM EST Office Visit [facility] [address] [place] [address] Esther Mcdonald, OD [address] [place] [address] documented as of this encounter Visit Diagnoses Not on filedocumented in this encounter Care Teams Chemical Engineering Professor Relationship Specialty Start Date End Date Name, MD Balta [address] [place] [address] PCP - General Internal Medicine 06/14/22 [facility] 08/05/24 documented as of this encounter
--- OUTSIDE RECORDS SUMMARY | 2025-05-21 09:45 | XMS_ITS | Encounter Summary ---
Author Organization [employer] Address [address] [place] [address] Care Team Providers Care Copy Manager Name Role Phone Name, Balta MAYER Primary Care Provider [phone] Reason for Visit * Reason Onset Date Comments Hospital Follow-up 10/18/2024 Encounter Details Date Type Department Care Team (Late st Contact Info) Description 10/18/2024 Telephone [facility] [address] [place], [place] [phone] Name, MD Balta [address] [place] [address] Hospital Follow-up Social History Tobacco Use Types [...] - 10/18/2024 1:12 PM EDT Tc from health care legal assistant Victorina requesting a HDF appt. Hospital: [facility] Date of admission: 10/08/24 Discharge date: 10/16/24 Diagnosed: Kidney stones and blood infection Contact pt daughter at [phone] (portuguese) documented in this encounter Plan of Treatment Upcoming Encounters Date Type Department Care Team (Late st Contact Info) Description 05/24/2025 10:30 AM EST Clinical Support [facility] [address] [place] [address] 06/19/2025 10:00 AM EST Office Visit [facility] [address] [place] [address] Harry, Esther, OD [address] [place] [address] documented as of this encounter Visit Diagnoses Not on filedocumented in this encounter Additional Health Concerns Assessment Noted Time PHQ-9 Depression Total Score: 0 09/20/19 24 1:15 PM EDT documented as of this encounter Care Teams Copy Manager Relationship Specialty Start Date End Date Name, MD Balta [address] [place] [address] PCP - General Internal Medicine 06/14/22 Samir [facility] 08/05/24 documented as of this encounter
--- OUTSIDE RECORDS SUMMARY | 2025-05-21 09:45 | XMS_ITS | Encounter Summary ---
Author Organization [employer] Address [address] [place] [address] Care Team Providers Care Telecommunications Officer Name Role Phone Name, Balta MAYER Primary Care Provider [phone] Reason for Visit * Reason Comments Med Refill Encounter Details Date Type Department Care Team (Late st Contact Info) Description 03/05/2024 Refill [facility] [address] [place], [place] [phone] Name, MD Balta [address] [place], [place] [phone] Social History Tobacco Use Types Packs/Day Years [...] Description 05/24/2025 10:30 AM EST Clinical Support [facility] [address] [place] [address] 06/19/2025 10:00 AM EST Office Visit [facility] [address] [place] [address] Harry, Esther, OD [address] [place] [address] documented as of this encounter Visit Diagnoses Not on filedocumented in this encounter Additional Health Concerns Assessment Noted Time PHQ-9 Depression Total Score: 0 09/20/19 24 1:15 PM EDT documented as of this encounter Care Teams Telecommunications Officer Relationship Specialty Start Date End Date Name, MD Balta [address] [place] [address] PCP - General Internal Medicine [facility] documented as of this encounter
--- OUTSIDE RECORDS SUMMARY | 2025-05-21 09:45 | XMS_ITS | Clinical Summary ---
Author Organization [employer] Address [address] [place] [address] Care Team Providers Care Surgical Coordinator Name Role Phone Name, Balta MAYER Primary Care Provider [phone] Allergies Active Allergy Reactions Criticality Noted Date [...] tablet by mouth at bed time. Active furosemide (Lasix) 40 MG tablet Take 1 tablet by mouth in the morning. 022 Active fluticasone (Flonase) 50 MCG/ACT nasal sprayIndication s:Sinus congestion INSTILL 1-2 SPRAYS IN EACH NOSTRIL ONCE DAILY NEEDED 48 g 023 Active Jardiance 10 MG Take 10 mg by mouth in the morning. 024 Active Eliquis 5 MG tablet Take 1 tablet (5 mg) by mouth 2 times daily. 025 Active cyanocobalamin (Vitamin B-12) 1000 MCG/ML injection INJECT 1 ML INTRAMUSCULARLY EVERY MONTH DIRECTED 1 mL 11 025 Active cholecalciferol (Vitamin D-3) 25 MCG tablet TAKE 1 TABLET BY MOUTH EVERY MORNING 90 tablet 3 025 Active glucose 4 g chewable tablet CHEW 4 TABLETS NEEDED FOR low blood sugar (LESS THAN 70mg/dL) Active hydroCHLOROthia zide 12.5 MG tablet Take 12.5 mg by mouth in the morning. Active losartan (Cozaar) 25 MG tablet TAKE 1 TABLET BY MOUTH TWICE DAILY IN THE MORNING AND IN THE EVENING Active TRUEplus Lancets 33G miscIndications :Type 2 diabetes mellitus with obesity USE DIRECTED TO TEST BLOOD SUGAR TWICE DAILY 100 each Active FREESTYLE LITE test stripIndication s:Type 2 diabetes mellitus with obesity USE DIRECTED TO TEST BLOOD SUGAR TWICE DAILY 100 strip Active Alcohol Swabs (Alcohol Prep) 70 % pads USE DIRECTED TWICE DAILY 100 each Active cetirizine (ZyrTEC) 10 MG tablet TAKE 1 TABLET BY MOUTH EVERY MORNING 90 tablet 1 Active oxybutynin (Ditropan) 5 MG tabletIndicatio ns:Urge incontinence TAKE 1 TABLET BY MOUTH TWICE DAILY IN THE MORNING AND IN THE EVENING NEEDED 180 tablet 1 Active amLODIPine (Norvasc) 5 MG tablet Take 1 tablet (5 mg) by mouth Once per day. 2025 Active omeprazole (PriLOSEC) [address] capsule TAKE 1 CAPSULE BY MOUTH TWICE DAILY IN THE MORNING AND IN THE EVENING 180 capsule Active docusate sodium (Colace) 100 MG capsule take 1 Tablet by Oral route 2 times every day - PURCHASING OTC 2024 Discontinued(T herapy completed) calcium carbonate 1500 (600 Ca) MG tabletIndicatio ns:Vitamin D deficiency TAKE 1 TABLET BY MOUTH EVERY MORNING 90 tablet 3 025 2024 Discontinued(T herapy completed) cetirizine (ZyrTEC) 10 MG tablet TAKE 1 TABLET BY MOUTH EVERY MORNING 30 tablet 5 025 2024 Discontinued ferrous gluconate (Fergon) 324 (38 Fe) MG tablet TAKE 1 TABLET BY MOUTH EVERY MORNING 90 tablet 1 025 2024 Discontinued oxybutynin (Ditropan) 5 MG tabletIndicatio ns:Urge incontinence TAKE 1 TABLET BY MOUTH TWICE DAILY IN THE MORNING AND IN THE EVENING NEEDED 180 tablet 1 025 2024 Discontinued amLODIPine (Norvasc) 2.5 MG tablet Take 1 tablet (2.5 mg) by mouth Once per day. 30 tablet 11 025 2024 Discontinued(D ose adjustment) Linzess 145 MCG capsule Take 145 mcg by mouth in the morning. 2024 Discontinued(T herapy completed) metoclopramide (Reglan) 10 MG tablet TAKE 1 TABLET BY MOUTH FOUR TIMES DAILY BEFORE MEALS AND AT BEDTIME 2024 Discontinued(T herapy completed) spironolactone (Aldactone) 25 MG tablet Take 1 tablet by mouth Once per day. 2024 Discontinued(S kelle effects) omeprazole (PriLOSEC) [address] capsule TAKE 1 CAPSULE BY MOUTH TWICE DAILY IN THE MORNING AND IN THE EVENING 180 capsule 025 2024 Discontinued ferrous gluconate (Fergon) 324 (38 Fe) MG tablet TAKE 1 TABLET BY MOUTH EVERY MORNING 90 tablet 1 025 2024 Discontinued(T herapy completed) Hospital, Clinic, or Other Facility Administered Medication [...] (urinary tract infection) 09/19/2024 Mild vascular dementia (CMS/HCC) 09/03/2024 Assessment & Plan (09/03/2024 9:54 AM [...] CKD (chronic kidney disease) 03/29/2023 Atrial fibrillation (CMS/HCC) 11/17/2022 History of arthroplasty of right knee 11/17/2022 Varicose veins of right lower extremity with inf lammation 11/17/2022 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 08/31/2022 Lentiginosis 10/13/2018 JOVANNI (obstructive sleep apnea) 10/02/2018 Overview (09/19/2024): Not using CPAP Chronic diastolic heart failure 05/25/2018 Overview (09/21/2023): [address] [address] CARDIOLOGY NAME: SAMMIE FRANCOIS TRANSFER TABLE OPERATOR HELPER: [facility] UNIT #: [id number] PATIENT LOCATION: EKG REFERRING PHYSICIAN: ANIYA BERNARD MD DATE OF : 41 PCP: ANIYA BERNARD MD SEX: Female DATE: 04/20/18 CARD ECHO 2D M MODE W DOPPLER COLOR [id number] SYMPTOMS,HX?: I10 ESSENTIAL HTN; R60.0 LOCALIZED EDEMA Transthoracic Echocardiogram Patient (Last, First, Middle): SAMMIE FRANCOIS E Gender: Female Date of : 1945 Age: 72 Procedure Date: 04/20/2018 Procedure Type: Transthoracic Echocardiogram Location: OP Height: 157.48 cm Weight: 81.65 kg BSA: 1.83 m2 Heart Rate: bpm BP: 144 / 78 mmHg Box Stamper: Referring MD: ANIYA BERNARD MD Symptoms: I10 [...] of Final JANI IYER MD Report #: [id number] Status: Signed Dict: 04/20/18/ Trans: /SUBRAH DATE PRINTED: //date// TIME PRINTED: //time// COPY TO: //ivnm// //add1// //add2// //add3// Tubular adenoma of colon 05/25/2018 Primary osteoarthritis of both knees 04/21/2018 Hyperlipidemia 04/10/2018 Pernicious anemia 07/20/2017 Chronic idiopathic constipation 07/18/2017 Hypertension 07/18/2017 Cobalamin deficiency 06/16/2017 Vitamin D deficiency 06/16/2017 Resolved Problems Problem Noted Date Diagnosed Date Resolved Date Decreased appetite 11/02/2024 5 Abdominal bloating 09/19/2024 Acute hyperkalemia 09/19/2024 5 Asthma 09/19/2024 01/21/2025 Diarrhea 09/19/2024 01/21/2025 Diverticulitis 09/19/2024 01/21/2025 Dysphagia 09/19/2024 01/21/2025 Epigastric pain 09/19/2024 01/21/2025 MARIA R (acute kidney injury) 09/02/2024 Assessment & Plan (09/03/2024 9:57 AM EST): Resolving Daughter will bring paperwork related to housing to medical records. I agree that pt is no longer medically stable to live alone and should have time study clerk caregiver available (daughter) Choking 01/05/2024 01/21/2025 Cough 01/05/2024 01/21/2025 Hospital discharge follow-up 01/05/2024 01/21/2025 CHF exacerbation 03/29/2023 03/29/2023 Osteoarthritis of right knee 03/29/2023 09/21/2023 Pneumonia 03/29/2023 01/21/2025 Preop cardiovascular exam 03/29/2023 Urinary urgency 03/29/2023 01/21/2025 Urge incontinence of urine 08/21/2018 0 09/21/2023 Knee pain 07/18/2017 09/21/2023 Tinea pedis 07/18/2017 09/21/2023 Encounters Date Type Department Care Team Description 05/16/2025 Refill [facility] [address] [place] [address] Lorena Mccormick ANP 05/14/2025 10:45 AM EST Office Visit [facility] [place] [address] Balta Jeffrey MD 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 (HCC) (Primary Dx); Chronic diastolic heart failure (HCC); Stage 3 chronic kidney disease, unspecified whether stage 3a or 3b CKD (CMS/HCC) (HCC); Encounter for immunization 05/14/2025 Travel 05/13/2025 Telephone [facility] [place] [address] Kanwal Taylor MA chart prep 05/10/2025 11:00 AM EDT Telemedicine [facility] [place] [address] Flores Cabrera, RN Primary hypertension 05/10/2025 Travel 05/10/2025 Telephone [facility] [place] [address] Ynes Stevenson, RN 05/09/2025 Refill [facility] [place] [address] Balta Jeffrey MD Urge incontinence 05/07/2025 Orders Only [facility] [place] [address] Lilian Torres, PharmD 05/03/2025 9:30 AM EDT Office Visit [facility] [place] [address] Lorena Mccormick ANP Gastroesophageal reflux disease, unspecified whether esophagitis present (Primary Dx); Primary hypertension; Chronic diastolic heart failure (HCC); Paroxysmal atrial fibrillation (CMS/HCC) (HCC); Chronic kidney disease, unspecified CKD stage; Primary osteoarthritis of both knees 05/03/2025 Travel 05/02/2025 Telephone [facility] [place] [address] Balta Jeffrey MD chart prep 05/01/2025 Telephone [facility] [place] [address] Balta Jeffrey MD ER Follow-up 04/25/2025 1:00 PM EDT Clinical Support [facility] [place] [address] Cindy Ly, JERROD Encounter for immunization 04/25/2025 Travel 03/28/[address] [place] [address] Balta Jeffrey MD Durable Medical Equipment 03/27/[address] [address] Kanwal Taylor [place] Durable Medical Equipment 03/26/2025 10:00 AM EDT Clinical Support [address] [place] [address] Cindy Ly, JERROD Cobalamin deficiency 03/26/2025 Travel 02/22/2025 10:00 AM EDT Clinical Support [address] [place] [address] Flores Cabrera, JERROD Cobalamin deficiency 02/22/[address] [address] Kanwal Taylor MA oct recalls 02/22/2025 Travel from Last 3 Months Immunizations Immunization Administration Dates Next Due Influenza High-dose Quadriva lent Preservative Free 03/29/2023 Influenza injectable quadriv alent IIV4 with preservative 07/18/2017 Influenza injectable quadriv alent preservative free 04/18/2019 Influenza, High Dose Seasona l, Preservative Free 05/14/2025,04/25/2025(Deferred: Patient decision - Pt declined),04/10/2018,05/12/2016,2014 Influenza, seasonal, [...] Sign Reading Time Taken Comments Blood Pressure 160/78 05/14/2025 10:49 AM EST Pulse 87 05/14/2025 10:49 AM EST Temperature 36.1 C (96.9 F) 05/14/2025 10:49 AM EST Respiratory Rate 12 05/14/2025 10:49 AM EST Oxygen Saturation 99% 05/14/2025 10:49 AM EST Inhaled Oxygen Concentration - - Weight 89 kg (196 lb 3.2 oz) 05/14/2025 10:49 AM EST Height 149.9 cm (4' 11 ) 05/14/2025 10:49 AM EST Body Mass Index 39.63 05/14/2025 10:49 AM EST Plan of Treatment Upcoming Encounters Date Type Department Care Team (Late st Contact Info) Description 05/24/2025 10:30 AM EST Clinical Support [facility] [address] [place] [address] 06/19/2025 10:00 AM EST Office Visit [facility] [address] [place] [address] Harry, Esther, OD [address] [place] [address] Health Maintenance Due Date Last Done Comments Diabetes: Foot Exam 11/11/1955 Zoster Vaccines (2 of 3) 09/12/2017 07/18/2017 RSV Patients and Patients Aged 60 years or older (1 - 1-dose 75+ series) 11/11/2018 Lipid Panel 12/25/2024 12/26/2023, 09/08, 08/12/2020 COVID-19 Vaccine ( season) 2025 08/13/2021, 09/19/2020, 08/22/2020 Depression Monitoring 07/24/2025 01/21/2025, 025 Diabetes: Hemoglobin A1C 11/11/2025 025, 01/21/2025, 09/03/2024, Additional history exists SDOH Screening 01/21/2026 01/21/2025 Alcohol/Substance Use Screening 05/14/2026 05/14/2025 Tobacco Screening 05/14/2026 05/14/2025 Eye Exam 12/17/2026 12/17/2024, 06/0 03/2025, 12/17/2024, Additional history exists DTaP/Tdap/Td Vaccines (2 - Td or Tdap) 08/30/2029 08/30/2019 Pneumococcal Vaccine: 50+ Years Completed 08/30/2019, 08/21/2018, 05/12/2016 Influenza Vaccine Completed 05/14/2025, , 03/29/2023, Additional history exists HIB Vaccines Aged Out [...] Diagnosis Comments POCT GLYCATED HEMOGLOBIN, TOTAL Routine 05/14/2025 11:10 AM EST 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 (HCC) POCT GLUCOSE Routine 05/14/2025 11:10 AM EST 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 (HCC) LIPID PANEL, STANDARD Routine 12/26/2023 1:22 PM EDT Hypertension, unspecified type from Last 3 Months or Most Recently Relevant to Health Maintenance Results * (ABNORMAL) POCT Hgb A1c (05/14/2025 11:10 AM EST) Hemoglobin A1C 5.9(A) 4.0 - 5.7 % QC Media Lot # [id number] Lot# Expiration Date Blood 05/14/2025 11:1 0 AM EST us Balta Jeffrey MD POINT OF CARE TEST ENTER/EDIT OR DERABLES Final Result * POCT Glucose (05/14/2025 11:10 AM EST) Glucose Blood, POC 120 60 - 200 mg/dL QC Media Lot # [id number] Lot# Expiration Date 31,126 Blood Capillary blood specimen / Unknown 05/14/2025 11:10 AM EST us Balta Jeffrey MD POINT OF CARE TEST ENTER/EDIT OR DERABLES Final Result * Lipid Panel, Standard (12/26/2023 1:22 PM EDT) Triglycerides 52 <150 mg/dL [facility] Comment:Desirable Triglyceri de: less than 150 mg/dLBorderline High Triglyceride 150-199 mg/dLHigh Triglyceride: 200-499 mg/dLVery High Triglyceride: greater than or equal to 5OO mg/dL Cholesterol 169 <200 mg/dL [facility] Comment:Desirable Cholestero l: less than 200 mg/dLBorderline High Cholesterol: 200-239 mg/dLHigh Cholesterol: greater than 239 mg/dL LDL Cholesterol Calculated 92 <100 mg/dL [facility] Comment:Desirable LDL: less than 100 mg/dLNear Optimal/Above Optimal LDL: 110- 129 mg/dLBorderline High LDL: 130-159 mg/dLHigh LDL: 160-189 mg/dLVery High LDL: greater than or equal to 190 mg/dL HDL Cholesterol 67 >40 mg/dL [facility] Comment:Desirable HDL: great er than 40 mg/dL Note: This HDL assay may give artificially low results in patients with liver disease. Blood Venous blood specimen / Unknown 12/26/2023 1:22 PM EDT 12/26/2023 3:56 PM EDT Balta Jeffrey MD LAB BLOOD ORDERABLES Final Resul t [facility] [address] [place] [address] [phone] from Last 3 Months or Most Recently Relevant to Health Maintenance Insurance [facility] [employer] (HMO D-SNP) Advance Directives Documents on File Type Date Recorded Patient Computer Operations Analyst Expl anation HealthCare Proxy 12/25/2024 12:53 PM Care Teams Surgical Coordinator Relationship Specialty Start Date End Date Name, MD Balta [address] [place] [id number] PCP - General Internal Medicine 06/14/22 Samir TAI 08/05/24
--- OUTSIDE RECORDS SUMMARY | 2025-05-21 09:45 | XMS_ITS | Clinical Summary ---
Author Organization [facility] Address [address] [address] Phone Care Team Providers Care Elementary Reading Specialist Name Role Phone Pcp, Unknown Primary Care [...] VACCINE (#1) 2025 COVID-19 VACCINE ( - 2024-2 6 season) 2025 Adult Td,Tdap Booster 08/30/2029 08/30/2019 HEPATITIS A VACCINES Aged Out No long er eligible based on patient's age to complete this topic HIB VACCINES Aged Out No longer eligi ble based on patient's age to complete this topic IPV VACCINES Aged Out No longer eligi ble based on patient's age to complete this topic MENINGOCOCCAL VACCINES (ACWY) Aged Out No longer eligible based on patient's age to complete this topic MENINGOCOCCAL VACCINES (B) Aged Out N o longer eligible based on patient's age to complete this topic Medical Devices Not on file Insurance [facility] MEDICARE REPLACEMENT MIROSLAVA STRAUSS [id number] [facility] MEDICARE REPLACEMENT MEDICARE REPLACEMENT [facility] [place]IR[place] STRAUSS [id number] Care Teams Elementary Reading Specialist Relationship Specialty Start Date End Date Pcp, Unknown PCP - General 07/08/23 Additional Source Comments The information contained in this document represents components of the legal health record. It is not the complete legal health record.[facility]
--- OUTSIDE RECORDS SUMMARY | 2025-05-21 09:45 | XMS_ITS | Encounter Summary ---
Author Organization [employer] Address [address] [place] [address] Care Team Providers Care Yoke Setter Name Role Phone Name, Balta MAYER Primary Care Provider [phone] Encounter Details Date Type Department Care Team (Late st Contact Info) Description 04/20/2023 Abstract [facility] [address] [place] [address] Name, MD Balta [address] [place] [address] Social History Tobacco Use Types Packs/Day Years [...] Description 05/24/2025 10:30 AM EST Clinical Support [facility] [address] [place] [address] 06/19/2025 10:00 AM EST Office Visit [facility]OMET[facility] [address] [place] [address] Esther Mcdonald, OD [address] [place] [address] documented as of this encounter Visit Diagnoses Not on filedocumented in this encounter Additional Health Concerns Assessment Noted Time PHQ-9 Depression Total Score: 4 08/31/19 23 10:26 AM EST documented as of this encounter Care Teams Yoke Setter Relationship Specialty Start Date End Date Name, MD Balta [address] [place] [address] PCP - General Internal Medicine 06/14/22 [facility] 08/05/24 documented as of this encounter
--- OUTSIDE RECORDS SUMMARY | 2025-05-21 09:45 | XMS_ITS | Encounter Summary ---
Author Organization [employer] Address [address] [place] [address] Care Team Providers Care Voltage Tester Name Role Phone Name, Balta MAYER Primary Care Provider [phone] Encounter Details Date Type Department Care Team (Late st Contact Info) Description 05/07/[address] [facility] [address] [place], [place] [phone] Lilian Torres, PharmD [address] [place], [place] [phone] Social History Tobacco Use Types Packs/Day Years [...] Description 05/24/2025 10:30 AM EST Clinical Support [facility] [address] [place] [address] 06/19/2025 10:00 AM EST Office Visit [facility] [address] [place] [address] Harry, Esther, OD [address] [place] [address] documented as of this encounter Visit Diagnoses Not on filedocumented in this encounter Additional Health Concerns Assessment Noted Time PHQ-9 Depression Total Score: 10 025 10:31 AM EDT documented as of this encounter Care Teams Voltage Tester Relationship Specialty Start Date End Date Name, MD Balta [address] [place] [address] PCP - General [facility] documented as of this encounter
--- OUTSIDE RECORDS SUMMARY | 2025-05-21 09:45 | XMS_ITS | Data Portability ---
Author Organization [employer] [facility], [facility] Address [address] [place] [id number] Care Team Providers Care Pourer Buggy Ladle Name Role Phone NAME, JOSE Primary Care Provider [phone] HIM CHRIS OTHER Assessment Encounter Date Assessment Date Assessment LastModified by Organization Details LastModified Time 10/07/2024 10/07/2024 Mrs. Amado degroot was evaluated for confusion and urinary symptoms. On assessment she is afebrile, mildly bradycardic and hypertensive. Per proposal manager assessment she is independently ambulatory with a [...] Assessment and Plan as documented by the Quality Manager. We discussed the diagnostic uncertainty of home [...] Assessment and Plan as documented by the Quality Manager. We discussed the diagnostic uncertainty of home [...] are requesting she go to [facility]. EMS initiated by [facility] provider, I called report to propellant charge zone assemblerJaymie at [facility] ER [email or web address] Not available 10/08/2024 17:38:59 11/23/2024 11/23/2024 service [...] assessment and plan as documented by the proposal manager. I provided real time medical direction for this encounter and was immediately available to provide additional phone based assistance as needed. History as noted by proposal manager. Pt with history HTN, DM2, and ? [...] the pt by private vehicle to the [facility] ED for evaluation. I feel comfortable with the pt going there via private car at this time. I discuss case with one of the ED providers at [facility] as well. [email or web address] Not available 01/15/2025 12:22:44 04/30/2025 04/30/2025 I provided real -time medical direction via phone for this encounter, and was available for additional phone based assistance as needed. I have reviewed and agree with the Assessment and Plan as documented by the Quality Manager. We discussed the diagnostic uncertainty of home visits and the risk associated with this. The patient /family given the opportunity to ask questions. Not available 04/30/2025 11:53:11 Plan of Treatment Reminders Order Date Submit Date Provider Last Modified By Organization Details Last Modified Time Details Appointments None recorded. Lab urinalysis, dipstick 2024 025 [facility], [address] [place] [address], [id number] 5 20:08:02 BMP, serum or plasma [address], [address] 5 20:08:02 culture, urine 2024 025 [facility], [address], [place], [place], [address], 20:14:38 urinalysis, dipstick 2024 [facility], [address] [place] [address], [id number] 20:08:03 glucose, fingerstick , blood 2024 [email or web address] 0 [facility], [address] [place] [address], [id number] 15:20:09 urinalysis, dipstick 2024 [facility], [address] [place] [address], [id number] 19:19:04 BMP, serum or plasma 2024 [facility], [address] [place] [address], [id number] 19:19:23 culture, urine 2024 [place] [facility] (Centralized Electronic Ordering - All Locations), Patient Can Go To The Location Of Their Choice, [address] 12:05:39 Referral None recorded. Procedures None recorded. Surgeries None recorded. Imaging electrocard iogram 2024 025 [facility], [address] [place] [address], [id number] 11:25:27 electrocard iogram 2024 025 [facility], [address] [place] [address], [id number] 00:24:18 Medication Orders cefpodoxime 200 mg tablet 2024 [place] [id number], [address] [facility], [place], [address], 19:21:07 sodium chloride 0.9 % intravenous solution 2024 [email or web address] 0 [id number], [address] [place], [address], 15:21:50 cefpodoxime 200 mg tablet 2024 025 [id number], [address] [place], [address], 18:19:44 ceftriaxone 1 gram solution for injection 2024 025 [email or web address] [id number], [address] [place], [address], 5 14:11:56 sodium chloride 0.9 % intravenous solution 2024 025 [email or web address] [id number], [address] [place] [address], [address], 14:12:07 Patient TargetsNo targets recorded. Patient InstructionsNo instructions recorded. Reason for Referral None Reported. Results Created Date Observation Date Name Description Value Unit Range Abnormal Flag Note LastModifiedBy Organization Detail LastModifiedTime 10/08/1910/09/2024 URINE CULTU RE,CO MPREH ENSIV E urine culture,comp rehensive Final report abnormal Not Available [facility] ([facility]) [address] [place], [address], 10/09/2024 14:06:17 10/08/1910/09/2024 URINE CULTU RE,CO MPREH ENSIV E result 1 Klebsi abhi oxytoc a abnormal Great er than 100,0 00 colon y formi ng units per mL Not Available [facility] ([facility]) [address] [place], [address], 10/09/2024 14:06:17 10/08/19 25 10/09/2024 URINE CULTU RE,CO MPREH ENSIV E result 2 Not applic able Not Available [facility] ([facility]) [address] [place], [address], 10/09/2024 14:06:17 10/08/19 25 10/09/2024 URINE CULTU [...] im/Foster lfa S Not Available [facility] ([facility]) [address] [facility], [place], [address], 10/09/2024 14:06:17 10/09/19 25 10/08/2024 gluco se, finge rstic k, blood Blood Glucose: mg/dl 220 Not Available [facility] [address] [place] [address], [address] 10/08/2024 15:18:52 11/24/19 25 11/29/2024 CULTU RE, URINE , ROUTI NE culture, urine, routine SEE NOTE abnormal CULTU RE, URINE , ROUTI NE Micro Numbe r: [id number] Test Statu s: Final Speci men [...] lexin and lorac arbef . Not Available [facility] [address], [place], [address], 11/29/2024 10:07:23 10/09/19 25 10/08/2024 elect rocar diogr am No observ ation record ed. [email or web address] [facility] - [facility] [address] [place] [address], [id number] 10/08/2024 18:13:27 01/16/2001/15/2025 elect rocar diogr am No observ ation record ed. [email or web address] [facility] [address], [address] 01/15/2025 12:58:38 Result Notes None recorded. Medical Equipment None Reported. Allergies Allergen ID Allergen Name Allergen Category Reaction Reaction Severity Criticality Documentation Date Start Date Code Code System Note Provider Name and Address Organization Details Recorded Time 71027 Product containin g penicilli n (product) medicatio n Not available Not available Not available 10/07/2024 85006 8001 SNOMED Not Available [facility] - production [...] % 97 % 134/76 mm[Hg] Not Available [employer] 5 13:57:20 Date Recorded Respiratory rate Body height Body weight Oxygen saturation Oxygen saturation in Arterial blood by Pulse oximetry Heart rate Systolic And Diastolic Provider Name and Address Organization Details Last Updated DateTime 5 14 /min 157.48 cm 11741.6 g 96 % 96 % 40 /min 109/63 mm[Hg] Not Available [employer] 5 15:17:36 Date Recorded Oxygen saturation Oxygen saturation in Arterial blood by Pulse oximetry Body weight Respiratory rate Body height Body temperature Heart rate Systolic And Diastolic Provider Name and Address Organization Details Last Updated DateTime 5 95 % 95 % 00820.1 92 g 19 /min 139.7 cm 98.1 [degF] 79 /min 160/53 mm[Hg] Not Available [email or web address] 5 18:18:07 Date Recorded Respiratory rate Heart rate Oxygen saturation Oxygen saturation in Arterial blood by Pulse oximetry Body temperature Body weight Body height Systolic And Diastolic Provider Name and Address Organization Details Last Updated DateTime 5 16 /min 71 /min 94 % 94 % 97.4 [degF] 60425.9 68 g 162.56 cm 164/81 mm[Hg] Not Available [email or web address] 5 11:13:07 Date Recorded Oxygen saturation Oxygen saturation [...] ICD10 Code Diagnosis IMO Codes Diagnosis Note [id number] ROSALIO MCATRHUR MD Main - [address] [address] 10/07/2024 13:57:18 10/30/2024 16:31:13 Acute urinary tract infection 699078572 N39.0 [id number] Charlotte Cao MD Main - [address] [address] 10/08/2024 15:17:33 10/08/2024 23:30:26 Altered mental status 098534904 R41.82 posible urosepsis patient is borderline hypotensiv e, clammy,, she is not hypoglycem ic. EKG reveals sinus bradycardi a at a rate of 48/there is a NM visible but the EKG did not capture [...] to compare it to/explain ed to family [address] Kyung Posadas MD Main - [address] [address] 11/23/2024 18:17:59 11/23/2024 21:58:18 Recurrent urinary tract infection [id number] N39.0 534215 Urinary symptoms 5519287 08 R39.9 [id number] Theodore Bliss MD Main-[facility] [address] [address] 01/15/2025 11:12:58 01/16/2025 21:34:45 Chest pain 68437133 R07.9 [id number] Charlotte Cao MD [facility] [address] [place] [address] 04/30/2025 11:15:21 04/30/2025 17:52:23 Hypertensive urgency 064743073 I16.0 [id number] w/ orthostasi s.Patient' s blood pressure at [...] Monzon Member ID Guarantor Name 04/30/2025 1 [facility] - DOS ON OR AFTER 2022 - DUAL ELIGIBLE - [employer] OPTIONS AND ONE CARE (MEDICARE REPLACEMENT/ADV ANTAGE - HMO) Victorina Mike [id number] Victorina Mike Notes Date Note Type Note [...] at 10/07/2024 Allergies Reviewed at 10/07/2024 Comments: Dining Services Manager verified the Pt.'s name//address and phone number. [...] the counter medication - Wellness check requested. Quality Manager Organization Information for José Miguel Romero Siine [employer] Legal Name: [facility] [facility] [employer] Address: [address] [place] [address], [place] [address], Dip Filler: Juan Wilson MD CLIA No.: [id number] Quality Manager POC Test Results from José Miguel Romero [...] ...................... ...................... ...................... ...................... ...................... ...................... ......... Quality Manager Note From José Miguel Romero: This visit [...] questions and are agreeable to this plan. [facility] Lab Orders: urinalysis, dipstick: Performed BMP, serum or plasma: Performed culture, urine: Performed [facility] Medication Orders: ceftriaxone 1 gram solution for injection: Administered sodium chloride 0.9 % intravenous solution: Administered ...................... ...................... ...................... ...................... ...................... ...................... ......... [facility] Consulted: Rosalio Mcarthur ...................... ...................... ...................... ...................... ...................... ...................... ......... Disposition: Fulfilled ROSALIO MCARTHUR MD [address] [place] [address],[address], [place], [address], [employer] 10/07/2024 14:53:49 10/08/2024 text/html ROS as noted in the [facility] CRC Nurse Triage Notes (Sirisha [...] Reviewed at 10/08/2024 - 13:56Allergies Reviewed at 10/08/2024:56Comments: Dining Services Manager verified the name//address and phone number. Son [...] s/s and seek emergency treatment if need Quality Manager Organization Information for Elma Mensah Legal Name: [employer]. Address: [address] [place] [address], Dip Filler: Morro Kwon MD CLIA No.: [id number] Quality Manager POC Test Results from Elma Mensah EKG (15:22:55) EKG test performed. Attachments uploaded as part of this test result can be found under Documents section. Blood Glucose Measurement (15:22:57) Blood Glucose: 220 mg/dL ...................... ...................... ...................... ...................... ...................... ...................... ......... Quality Manager Note From Elma Mensah: MIH makes pt contact. She is found seated in a recliner in the living room of a small and clean apartment where she lives w/ family. She makes eye contact w/ [facility] and says hello. She is not in acute distress. She appears to be mildly pale; no ashen or jones color are noted. She is not tripoding, using accessory muscles to breathe, and no stridor or sonorous respirations are present. There is no facial droop or one-sided weakness observed, and she is not bleeding anywhere. Pt is Arabic-speaking only and family is present and on the phone to provide hx and translation. Family tells [facility] the pt was seen by [facility] yesterday and dx w/ a UTI, a [...] more profound to the family. Son tells MAChacha She just isn't herself! Pt offers no complaints to [facility]. She denies cp, sob, n/v/d, abd pain. She is intermittently somnolent during the visit and exam, often closing her eyes for several minutes. She is able to follow commands well. Daughter tells MAChacha the swelling in her feet and LEs seems to be a little bit worse over the past couple days. [facility] obtains vital signs and pt is assessed. [...] touch. Pt continues to be sleepy . [facility] contacts [facility] and discusses the above. Out of concern for urosepsis, [facility] and [facility] feel pt should be transported to the hospital for further evaluation and care. Family is amendable to the plan. [facility] orders FSBG, a 12-lead EKG, and 500mls NS fluid bolus. Finger stick and EKG are obtained. A 20ga IV is established in the L AC and 500mls NS are administered. [facility] calls 911 and pt is transported to [facility] by [facility]. [facility] is clear. Report completed by NISHA Mensah [id number]. [facility] Lab Orders: glucose, fingerstick, blood: Performed [facility] Medication Orders: sodium chloride 0.9 % intravenous solution: Administered ...................... ...................... ...................... ...................... ...................... ...................... ......... [facility] Consulted: Charlotte Cao ...................... ...................... ...................... [...] growing out gram-negative rods. Charlotte Cao MD [address] [place] [address],[address], [place], [address], [employer] 10/08/2024 17:39:10 11/23/2024 text/html CRC Nurse Triage [...] PMH Reviewed at 11/23/2024 Allergies Reviewed at 11/23/2024: Comments: 79 y.o [...] signs of when to seek emergency care. Quality Manager Organization Information for Ven[employer]atesh[employer]g [employer] Legal Name: [facility] Address: [address] [place] [address], [place] [address], Dip Filler: Juan Wilson MD CLIA No.: [id number] Quality Manager POC Test Results from Og Riddle - [...] ...................... ...................... ...................... ...................... ...................... ...................... ......... Quality Manager Note From Og Riddle: Pt chief complaint [...] placed in right ac for medication administration. [facility] Kyung Posadas consulted, Pt is given 1 gram of ceftriaxone through the ac iv in a 100ml NS bag. Pt is also sent a prescription to her local Pharmacy for antibiotics. Pt is (instructed to contact her pcp or [facility] for follow up as necessary. Pt and family educated on red flag S&S and told to contact emergency services if any present. [facility] Lab Orders: urinalysis, dipstick: Performed BMP, serum or plasma: Performed culture, urine: Performed urinalysis, dipstick: Performed ...................... ...................... ...................... ...................... ...................... ...................... ......... [facility] Consulted: Kyung Posadas ...................... ...................... ...................... ...................... ...................... ...................... ......... Disposition: Moon Kyung Posadas MD [address] [place] [address],[address], [place], [address], [employer] 11/23/2024 21:33:01 01/15/2025 text/html ROS as noted in the HPI This was a supervised home visit with proposal manager Elma Mensah. CRC Nurse Triage Notes (Sirisha [...] signs of when to seek emergency care. Quality Manager Organization Information for Elma Mensah Legal Name: [employer], Victor. A ddress: [address], [place] [address], Medical Director: Morro ENCARNACION No.: [id number] Quality Manager POC Test Results from Elma Mensah EKG (10:59:09)EKG test performed.Attachments uploaded as part of this test result can be found under Documents section. ...................... ...................... ...................... ...................... ...................... ...................... ......... Quality Manager Note From Elma Mensah: SC6 responds to the listed address for an 79yof w/ a c/c of chest pain. Upon arrival on scene, SHELLEY is admitted to the apartment by family and pt is found seated in a recliner in the living room of the small apartment. She is alert and smiles and tracks MIH on approach. Pt, family, and MIChacha recognize each other from previous encounter and rapport is easily re-established. Pt is animated and happy, no stridor or sonorous respirations are present. No facial droop or slurred speech are observed and she is not bleeding anywhere. Pt and family are Arabic-speaking only and one family member is on [...] appointment is on the of this month. [facility] obtains vital signs and pt is assessed. [...] well as some ST depression in V4-V6. [facility] contacts [facility] and discusses the above and [facility] would like pt to receive further cardiac workup and converses w/ family about his concerns. Family is amendable to pt being evaluated and will transport pt to [facility]. [facility] is clear. Report completed by NISHA Mensah [id number]. ...................... ...................... ...................... ...................... ...................... ...................... ......... [facility] Consulted: Theodore Bliss ...................... ...................... ...................... ...................... ...................... ...................... ......... Disposition: Fulfilled Theodore Bliss MD [address] [place] [address],[address] [facility], [place], [address], [facility] [employer] 01/15/2025 12:23:06 04/30/2025 text/html ROS as noted in the [facility] CRC Nurse Triage Notes (Sophia [...] reporting nausea, headache, feeling fatigued. Daughter reports MACHINE PACKAGING TECHNICIAN called reporting symptoms. Denies vision changes. No PRNs for pain. Doesn't get headaches often. MACHINE PACKAGING TECHNICIAN reported hypertension - high 100s/90s. Took antihypertensive at 7am - lisinopril. Not on any other antihypertensives. Denies chest pain, chest tightness or shortness of breath. Denies fever. Not on anticoagulation. Denies recent kidney issues. [facility] I provided information on the mobile health provider response time and advised the patient and/or caregiver to monitor reported signs and symptoms. I discussed the warning signs of when to seek emergency care. ...................... ...................... ...................... ...................... ...................... ...................... ......... Quality Manager Note From Ernesto Macias: Dispatched to the [...] 25. Hypertension with headache Pt was assessed. [facility] consulted. Orthostatic checked. Pt and family were [...] given to EMS crew. Pt transported to [facility] per her request. ALL times are approx. ...................... ...................... ...................... ...................... ...................... ...................... ......... [facility] Consulted: Charlotte Cao ...................... ...................... ...................... ...................... ...................... ...................... ......... Disposition: Fulfilled Charlotte Cao MD [address] [facility],[address], [place], [address], [employer] 04/30/2025 15:26:26 OBGyn Episode No OBEpisode recorded.
--- OUTSIDE RECORDS SUMMARY | 2025-05-21 09:45 | XMS_ITS | Encounter Summary ---
Author Organization [employer] Address [address] [place] [address] Care Team Providers Care It Infrastructure Project Manager Name Role Phone Name, Balta MAYER Primary Care Provider [phone] Reason for Visit * Reason Onset Date Comments Call Back Request 08/16/2024 Encounter Details Date Type Department Care Team (Late st Contact Info) Description 08/16/2024 Telephone [facility] [address] [place], [place] [id number] Name, MD Balta [address] [place] [address] Call Back Request Social History Tobacco Use [...] from Daughter calling in regards to tomorrow's [facility] visit inquiring on the B12 injection. Please contact Daughter at [phone]. (Vincentian Speaker) documented in this encounter Plan of Treatment Upcoming Encounters Date Type Department Care Team (Late st Contact Info) Description 05/24/2025 10:30 AM EST Clinical Support [facility] [address] [place] [address] 06/19/2025 10:00 AM EST Office Visit [facility] OPTOMETRY [address] [place] [address] Esther Mcdonald, OD [address] [place] [address] documented as of this encounter Visit Diagnoses Not on filedocumented in this encounter Additional Health Concerns Assessment Noted Time PHQ-9 Depression Total Score: 0 09/20/19 24 1:15 PM EDT documented as of this encounter Care Teams It Infrastructure Project Manager Relationship Specialty Start Date End Date Name, MD Balta [address] [place] [address] PCP - General Internal Medicine 06/14/22 Samir TAI 08/05/24 documented as of this encounter
== END 2025-05-21 09:38 | disposition home or self-care (01) ==
LOC: HO.HUSH 09:06
PROVIDERS: PCP Internal Medicine Geriatric Medicine; Visit Provider Nurse Practitioner Family
DX: N39.0 Urinary tract infection, site not specified (principal); N20.0 Calculus of kidney; N32.81 Overactive bladder
CPT/HCPCS: 99214; G2211

== ENCOUNTER → 2025-05-21 09:05 | Outpatient (BNVA) | payer OTHER, SELFPAY | PROVIDERS: PCP Internal Medicine Geriatric Medicine; Visit Provider Nurse Practitioner Family | DX: N32.81 Overactive bladder (principal); N20.0 Calculus of kidney; N39.0 Urinary tract infection, site not specified | CPT/HCPCS: 51798; 99212 ==

== ENCOUNTER 2025-06-24 13:59 | Outpatient (AMB) | payer OTHER, SELFPAY ==
--- OUTSIDE RECORDS SUMMARY | 2024-08-13 08:00 | XMS_ITS | Continuity of Care Document ---
Author Organization [facility] Address [address] [place] [address] Phone Care Team Providers Care Exhibit Builder Name Role Phone MD LEYLA Schreiber, Julia Unavailable Unava ilable Allergies, Adverse Reactions, Alerts Substance Reaction Status Criticality No Known Allergies Active No Inform ation Medications Medication Instructions Dosage Effective Dates (start - stop) Status Comments ezetimibe 10 mg tablet - Act eugene rosuvastatin 5 mg tablet - A ctive levothyroxine 25 mcg tablet - Active azithromycin 250 mg tablet - Active fluticasone propionate 50 mcg/actuation nasal spray,suspension - Active celecoxib 200 mg capsule - A ctive benzonatate 200 mg capsule - Active acyclovir 400 mg tablet - Ac tive acyclovir 5 % topical ointment - Active nabumetone 500 mg tablet - A ctive clotrimazole-betamethasone 1 %-0.05 % topical cream - Active methocarbamol 500 mg tablet - Active Procedures Procedure Date Oph Serv: Med Exam; Comp New Advance Directives Directive Yes / No Effective Date File Name No Information Encounters Encounter Description Practice Location Reason(s) For Visit Diagnoses Date Provider Providers Copied on Encounter [facility], [address], [place], [place], [id number], [place] tel:[phone] [facility] blurry vision (chief complaint) Combined forms of age-related cataract, bilateralDry eye syndrome of bilateral lacrimal glandsOpen angle with borderline findings, high risk, bilateral MD Julia Kitchen. [address] [facility], [place], [place], [id number] , [place]. tel: [phone] Referring Provider: Del Camp MD, [facility] [address] , [place], [address]. tel:[phone] Family History Family Member Type Diagnosis Age At Onset No Information Payers Payer name Insurance type Covered alliance party ID [facility] [id number] Social History Type Description Quantity Date Captured Comments Alcohol Use Details No Caffeine Use Details coffee 2 cups per day Tobacco Use Status Current non-smoker Smoking Status Never smoker Non-Smoking Tobacco Use Details : No Details Available : No Details Available Sex Female Chief Complaint And Reason For Visit From encounter dated '08/13/2024 13:00'. blurry vision (chief complaint). Description: The 78 year old patient presents for evaluation of blurry vision in the right eye and left eye. Patient complaints of progressive decreased vision in both eyes. Complaints the decrease has been progressing as time passes.C/O of glare when drives at night, difficulty reading at near .New glasses no longer help improve vision. Affecting overall daily life activities. Reason For Referral Reason For Referral No Information History Of Present Illness Encounter Date Complaint History Of Prese nt Illness blurry vision The 78 year old patient presents for evaluation of blurry vision in the right eye and left eye. Patient complaints of progressive decreased vision in both eyes. Complaints the decrease has been progressing as time passes.C/O of glare when drives at night, difficulty reading at near .New glasses no longer help improve vision. Affecting overall daily life activities. Functional Status Date Functional Assessmen t No Information Instructions Date Instruction Additional Infor jd {[email or web address].txt_plan3} Related to Ope n angle with borderline findings, high risk, bilateral {local.txt_plan2} Related to Dry eye syndrome of bilateral lacrimal glands Impression/Plan - IO P borderlinecontinue to monitor off drops Related to Open angle with borderline findings, high risk, bilateral Impression/Plan - Ca taracts account for the patient's complaints. No treatment currently recommended. The patient will monitor vision changes and contact us with any decrease in vision. Related to Combined forms of age-related cataract, bilateral Impression/Plan - Dr y eyes account for the patient's complaints. There is no evidence of permanent changes to the cornea. Explained condition does not have a cure and will need artificial tears for maintenance. PFATs QID OU Related to Dry eye syndrome of bilateral lacrimal glands Assessments Type Assessment Date assessment Combined forms of age-related ca taract, bilateral (H25.813) - assessment Dry eye syndrome of bilateral la crimal glands (H04.123) - impression Combined forms of age-related ca taract, bilateral (H25.813) - impression Dry eye syndrome of bilateral la crimal glands (H04.123) - assessment Open angle with bord lia findings, high risk, bilateral (H40.023) - No FHxTmax impression Open angle with bord lia findings, high risk, bilateral (H40.023) - No FHxTmax Patient Care Teams Name Effective Dates (start - stop) Status Members No Information
--- OUTSIDE RECORDS SUMMARY | 2025-06-24 13:30 | XMS_ITS | Encounter Summary ---
Author Organization [employer] Address [address] [place] [address] Care Team Providers Care Ppap Coordinator Name Role Phone Name, Balta MAYER Primary Care Provider [phone] Encounter Details Date Type Department Care Team (Late st Contact Info) Description 06/24/2025 1:30 PM EST Nurse Only [facility] [address] [place], [place] [phone] Cherie Juarez, RN [address] [place], [place] [phone] Cobalamin deficiency [E53.8] Social History Tobacco Use Types Packs/Day Years [...] as of this encounter Progress Notes * Cherie Juarez RN - 06/24/2025 1:30 PM EST S: Pt here for nurse visit B12 injection, today B12 standing order verified (09/22/24). Pt denies any difficulties with previous injection received. O: Cyanocobalamin 1,000mcg/ML, 1mL given on right deltoid muscle, pt tolerated well. A: Vitamin B12 Deficiency P: Pt may go home and return for next B12 injection (07/25/25), and bring Vitamin B12 vial to next appt. Advised to monitor injection site for any increased redness or swelling and follow up with PCP as needed. . Pt agrees with plan and verbalized understanding documented in this encounter Plan of Treatment Upcoming Encounters Date Type Department Care Team (Late st Contact Info) Description 07/25/2025 1:30 PM EST Clinical Support [facility] [address] [place], [place] [phone] 09/16/2025 11:30 AM EDT Office Visit [facility] [address] [place] [address] Harry, Esther, OD [address] [place] [address] documented as of this encounter Visit Diagnoses Diagnosis Cobalamin deficiency [E53.8] Other B-complex deficiencies documented in this encounter Administered Medications Active Administered Medications - up to 3 most recent administrations Medication Order MAR Action Action Date Dose Rate Site cyanocobalamin (Vitamin B-12) injection 1,000 mcg 1,000 mcg, Intramuscular, Every 30 days, First dose on 09/22/24 at 0900, For 12 dosesIndications:Cobalami n deficiency Given 06/24/2025 1:30 PM EST 1,000 mcg Right Deltoid Given 05/24/2025 10:32 AM EST 1,000 mcg R ight Deltoid Given 04/25/2025 1:21 PM EDT 1,000 mcg Ri ght Deltoid documented in this encounter Additional Health Concerns Assessment Noted Time PHQ-9 Depression Total Score: 10 01/21/ 025 10:31 AM EDT documented as of this encounter Care Teams Ppap Coordinator Relationship Specialty Start Date End Date Name, MD Balta [address] [place] [id number] PCP - General Internal Medicine 06/14/22 Samir [facility] 08/05/24 documented as of this encounter
[2025-06-24 14:01] VITALS: BP 164/80; BMI 33.5
--- NOTE | 2025-06-24 14:01 | HO.NEPHOV_ITS ---
Vital Signs 06/24/25 14:01 06/24/25 14:19 Height 5 ft 4 in Weight 195 lb BMI 33.5 BP 164/80 H 140/80 H Blood Pressure Location Rt brachial Rt brachial Position Sitting Sitting Intake Visit Reasons: 4 Month F/U Diagnostic Technician Required: Yes Diagnostic Technician Name: Arlene [id number] Accompanied by: Family/Other Allergies Penicillins (PENICILLINS) Allergy (Intermediate, Verified 06/24/25 14:04) NAUSEA/HIVES metformin Adverse Reaction (Unknown, Verified 06/24/25 14:04) Diarrhea HPI Comments Details: History of Present Illness The patient is an 79 year old female presenting for a follow-up visit. Her medical history includes chronic heart failure, atrial fibrillation, a history of hyperkalemia, and a recent acute kidney injury. Her creatinine has improved, decreasing from 1.6 to 1.2. The patient is not on an RAJAT inhibitor and also follows with urology. Regarding her heart failure, she reports her breathing is a little better and denies any swelling in her legs. Her blood pressure is noted to be high in the office, which is attributed to anxiety from a fear of elevators; however, her home blood pressure readings are better, around 130-140/70 mmHg. Her current medications include Tylenol, amlodipine, Jardiance, and Lasix 40 mg. It was unclear if she is taking hydrochlorothiazide as a second diuretic. She also takes a medication for constipation, and denies issues with vomiting or stomach pain. No lab work has been done since January. Results - Labs: Creatinine has decreased to 1.2 from a previous value of 1.6. - Labs: No lab work has been performed since January. [facility] Medical History (Updated 06/24/25 @ 14:19 by Karthik Irvin MD) CKD (chronic kidney disease) Diarrhea Diverticulitis Abdominal bloating Epigastric pain Chronic diastolic heart failure Hydronephrosis, right Ureteral stone Dementia Calculus of proximal right ureter Renal insufficiency Tubular adenoma of colon Preop cardiovascular exam Urinary urgency Pneumonia Hospital discharge follow-up Asthma MARIA R (acute kidney injury) GERD (gastroesophageal reflux disease) Diabetes Osteoarthritis Hyperlipidemia Hypertension JOVANNI (obstructive sleep apnea) Surgical History Hx of cataract surgery Status post total knee replacement, right History of arthroplasty of right knee Hx of colonoscopy H/O: hysterectomy History of salpingoophorectomy History of tonsillectomy Family History Father HTN (hypertension) Mother HTN (hypertension) CVD (cardiovascular disease) Daughter Bone cancer Father Cancer Social History Household Members: Family Housing: House Are you a primary medication care manager to a significant other at home: No Do you presently have visiting nurse or other home services: No Alcohol intake: never Comment: family at bedside Patient Tobacco Use Status: Never used Tobacco e-Cigarette/Vaping Use: Never Used Second Hand Smoke Exposure: No service: No Current occupational status: retired Current occupation: Right handed Physical Exam Exam Exam: Physical Exam General: Awake. Comfortable. HENT: Neck supple. Mucosa moist. Pulmonary: Lungs aeration equal. No rales. Cardiology: Heart S1-S2 heard. No gallop. Abdomen: Soft. Non tender. Bowel sounds normal. Neurologic: No involuntary movements. No myoclonus. Extremities: No edema. No rash. Vital Signs: Last Vital Signs BP 140/80 H 06/24/25 14:19 BMI result Body Mass Index 33.5 Results Reviewed Nephrology Results: Hgb, (12.0-16.0) 12.5 g/dl Δ Today WBC, (4.8-10.8) 9.4 X10*3/uL Today Plt Count, (160-400) 280 X10*3/uL Today Renal US 12/08/24 Assessment & Plan Assessment & Plan (1) CKD (chronic kidney disease): Code(s): N18.9 - Chronic kidney disease, unspecified Category: Medical Qualifiers: Chronic kidney disease stage: stage 3 (moderate) Chronic kidney disease stage 3 subtype: stage 3b (GFR 30-44) Qualified Code(s): N18.32 - Chronic kidney disease, stage 3b (2) Chronic diastolic heart failure: Code(s): I50.32 - Chronic diastolic (congestive) heart failure Category: Medical Plan Plan 1. Chronic Kidney Disease - The patient's creatinine has shown improvement, decreasing from 1.6 to 1.2. - The patient was instructed to go for a blood test today to further evaluate kidney function. - The office will contact the patient if there are any concerning findings on the blood tests. - A follow-up appointment is scheduled for 4 to 6 months. 2. Hypertension - The patient's home blood pressure readings are acceptable (130-140/70 mmHg), though her in-office reading was high, likely due to anxiety. - No changes will be made to her current medication regimen at this time. 3. Chronic Heart Failure - The patient reports a slight improvement in breathing and denies leg swelling. - She will continue her current medications, including Lasix and Jardiance, with no changes. Orders: Orders Complete Blood Count no Diff Today I10 - Essential (primary) hypertension, I50.9 - Heart failure, unspecified Basic Metabolic Panel Today I10 - Essential (primary) hypertension, I50.9 - Heart failure, unspecified Comprehensive Met. Panel Today I50.32 - Chronic diastolic (congestive) heart failure Coding Level of Care Code Est Pt Level 4 (66205) Diagnoses Stage 3b chronic kidney disease N18.32 Chronic kidney disease stage: stage 3 (moderate) Chronic kidney disease stage 3 subtype: stage 3b (GFR 30-44) Chronic diastolic heart failure I50.32
[2025-06-24 14:19] VITALS: BP 140/80
--- OUTSIDE RECORDS SUMMARY | 2025-06-24 20:24 | XMS_ITS | Encounter Summary ---
Author Organization [employer] Address [address] [place] [address] Care Team Providers Care Scientific Research Associate Name Role Phone Name, Balta MAYER Primary Care Provider [phone] Encounter Details Date Type Department Care Team (Late st Contact Info) Description 05/07/2025 Orders Only [facility] [address] [place], [place] [phone] Lilian Torres, PharmD [address] [place], [place] [phone] Social History Tobacco Use Types Packs/Day Years [...] Description 07/25/2025 1:30 PM EST Clinical Support [facility] [address] [place] [address] 09/16/2025 11:30 AM EDT Office Visit [facility] [address] [place] [address] Harry, Esther, OD [address] [place] [address] documented as of this encounter Visit Diagnoses Not on filedocumented in this encounter Additional Health Concerns Assessment Noted Time PHQ-9 Depression Total Score: 10 025 10:31 AM EDT documented as of this encounter Care Teams Scientific Research Associate Relationship Specialty Start Date End Date Name, MD Balta [address] [place] [address] PCP - General Internal Medicine 06/14/22 [facility] 08/05/24 documented as of this encounter
--- OUTSIDE RECORDS SUMMARY | 2025-06-24 20:24 | XMS_ITS | Encounter Summary ---
Author Organization [employer] Address [address] [place] [address] Care Team Providers Care Sliding Joint Maker Name Role Phone Name, Balta MAYER Primary Care Provider [phone] Reason for Visit * Reason Onset Date Comments Call Back Request 08/16/2024 Encounter Details Date Type Department Care Team (Late st Contact Info) Description 08/16/2024 Telephone [facility] [address] [place], [place] [phone] Name, MD Balta [address] [place] [address] Call Back Request Social History Tobacco Use [...] from Daughter calling in regards to tomorrow's [facility] visit inquiring on the B12 injection. Please contact Daughter at [phone]. 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) documented in this encounter Plan of Treatment Upcoming Encounters Date Type Department Care Team (Late st Contact Info) Description 07/25/2025 1:30 PM EST Clinical Support [facility] [address] [place] [address] 09/16/2025 11:30 AM EDT Office Visit [facility] [address] [place] [address] Esther Mcdonald, OD [address] [place] [address] documented as of this encounter Visit Diagnoses Not on filedocumented in this encounter Additional Health Concerns Assessment Noted Time PHQ-9 Depression Total Score: 0 09/20/19 24 1:15 PM EDT documented as of this encounter Care Teams Sliding Joint Maker Relationship Specialty Start Date End Date Name, MD Balta [address] [place] [address] PCP - General Internal Medicine 06/14/22 Samir [facility] 08/05/24 documented as of this encounter
--- OUTSIDE RECORDS SUMMARY | 2025-06-24 20:24 | XMS_ITS | Encounter Summary ---
Author Organization [employer] [facility] Address [address] [facility] [address] [place] [phone] Care Team Providers Care Char House Supervisor Name Role Phone Name, Balta MAYER Primary Care Provider [phone] Encounter Details Date Type Department Care Team (Late st Contact Info) Description 06/14/2022 Orders Only [facility] [address] [place] [phone] Audrey Mcginnis, JERROD Social History Tobacco Use [...] Description 07/25/2025 1:30 PM EST Clinical Support [facility] [address] [place] [address] 09/16/2025 11:30 AM EDT Office Visit [facility] [address] [place] [address] Esther Mcdonald, OD [address] [place] [address] documented as of this encounter Visit Diagnoses Not on filedocumented in this encounter Care Teams Char House Supervisor Relationship Specialty Start Date End Date Name, MD Balta [address] [place] [address] PCP - General Internal Medicine 06/14/22 [facility] 08/05/24 documented as of this encounter
--- OUTSIDE RECORDS SUMMARY | 2025-06-24 20:24 | XMS_ITS | Encounter Summary ---
Author Organization [employer] Address [address] [place] [address] Care Team Providers Care Logistics Assistant Name Role Phone Name, Blata MAYER Primary Care Provider [phone] Encounter Details Date Type Department Care Team (Late st Contact Info) Description 06/24/2025 Orders Only GENERIC EXTERNAL DATA DEPARTMENT Provider, Generic External Data Social History Tobacco Use Types Packs/Day Years [...] t he electric, gas, oil or water [employer] threatened to shut off services in your [...] Description 07/25/2025 1:30 PM EST Clinical Support [facility] [address] [place] [address] 09/16/2025 11:30 AM EDT Office Visit [facility] [address] [place], [place] [phone] Harry, Esther, OD [address] [place] [address] documented as of this encounter Procedures Procedure Name Priority Date/Time Associated Diagnosis Comments CBC Routine 06/24/2025 2:41 PM EST COMPREHENSIVE METABOLIC PANEL Routine 06/24/2025 2:41 PM EST documented in this encounter Results * (ABNORMAL) Comprehensive Metabolic Panel (06/24/2025 2:41 PM EST) Sodium 141 135 - 145 mmol/L [facility] Potassium 3.2(L) 3.3 - 5.1 mmol/L [facility] Chloride 100 96 - 108 mmol/L [facility] Carbon Dioxide 31(H) 22 - 29 mmol/L [facility] Anion Gap 13 12 - 20 [facility] Urea Nitrogen (BUN) 16 9 - 16 mg/dL [facility] Creatinine, Serum 1.09 0.5 - 1.4 mg/dL [facility] Estimated Glomerular Filt Rate 48 [facility] Comment:Chronic Kidney Disea se: Estimated GFR < 60 mL/min/1.58t5Xhxaem Kidney Disease: Estimated GFR < 15 mL/min/1.73m2 Glucose 121(H) 60 - 115 mg/dL [facility] Calcium 10.4(H) 8.4 - 10.2 mg/dL [facility] Bilirubin, Total 0.4 0.0 - 1.0 mg/dL [facility] Aspartate Amino Transferase 23 5 - 31 U/L [facility] Alanine Aminotransferase 11 0 - 31 U/L [facility] Total Protein 7.8 6.5 - 8.0 g/dL [facility] Albumin Level 4.5 3.5 - 5.0 g/dL [facility] Alkaline Phosphatase 184(H) 39 - 117 U/L [facility] 06/24/2025 2:41 PM EST 06/24/2025 2:41 PM EST us Generic External Data Provider LAB BLOOD ORDERAB LES Final Result [facility] [address] [place], [place] [phone] * (ABNORMAL) CBC (06/24/2025 2:41 PM EST) White Blood Count 9.4 4.8 - 10.8 X10*3/uL [facility] Red Blood Count 5.04 4.20 - 5.50 X10*6/uL [facility] Hemoglobin 12.5 12.0 - 16.0 g/dl [facility] Hematocrit 40.2 37.0 - 47.0 % [facility] Mean Corpuscular Volume 79.8(L) 80.0 - 98.0 fL [facility] Mean Corpuscular Hemoglobin 24.8(L) 27.0 - 33.0 pg [facility] Mean Corpuscular HGB Conc 31.1 31.0 - 35.0 g/dl [facility] Red Cell Distribution Width 17.0(H) 11.0 - 16.0 % [facility] Platelet Count 280 160 - 400 X10*3/uL [facility] Mean Platelet Volume 10.8 9.4 - 12.3 fL [facility] NRBC Pct Auto 0.0 0.0 - 0.2 /100WBC [facility] NRBC Abs Auto 0.000 0.0 - 0.012 X10*3/uL [facility] 06/24/2025 2:41 PM EST 06/24/2025 2:41 PM EST us Generic External Data Provider LAB BLOOD ORDERAB LES Final Result [facility] [address] [place] [address] [phone] documented in this encounter Visit Diagnoses Not on filedocumented in this encounter Additional Health Concerns Assessment Noted Time PHQ-9 Depression Total Score: 10 01/21/ 025 10:31 AM EDT documented as of this encounter Care Teams Logistics Assistant Relationship Specialty Start Date End Date Name, MD Balta [address] [place] [address] PCP - General Internal Medicine [facility]22 [facility] documented as of this encounter
--- OUTSIDE RECORDS SUMMARY | 2025-06-24 20:24 | XMS_ITS | Encounter Summary ---
Author Organization [employer] Address [address] [place] [address] Care Team Providers Care Brim Curler Name Role Phone Name, Balta MAYER Primary Care Provider [phone] Reason for Visit * Reason Comments Med Refill Encounter Details Date Type Department Care Team (Late st Contact Info) Description 03/05/2024 Refill [facility] [address] [place], [place] [phone] Name, MD Balta [address] [place], [place] [phone] Social History Tobacco Use Types Packs/Day Years [...] Description 07/25/2025 1:30 PM EST Clinical Support [facility] [address] [place] [address] 09/16/2025 11:30 AM EDT Office Visit [facility] [address] [place] [address] Harry, Esther, OD [address] [place] [address] documented as of this encounter Visit Diagnoses Not on filedocumented in this encounter Additional Health Concerns Assessment Noted Time PHQ-9 Depression Total Score: 0 09/20/19 24 1:15 PM EDT documented as of this encounter Care Teams Brim Curler Relationship Specialty Start Date End Date Name, MD Balta [address] [place] [address] PCP - General Internal Medicine [facility]14[facility]22 [facility] documented as of this encounter
--- OUTSIDE RECORDS SUMMARY | 2025-06-24 20:24 | XMS_ITS | Clinical Summary ---
Author Organization [employer] Address [address] [place] [address] Care Team Providers Care Bath Steward Name Role Phone Name, Balta MAYER Primary Care Provider [phone] Allergies Active Allergy Reactions Criticality Noted Date [...] mouth in the morning. 02/22/20 24 Active Eliquis 5 MG tablet Take 1 tablet (5 mg) by mouth 2 times daily. 11/03/19 25 Active cyanocobalamin (Vitamin B-12) 1000 MCG/ML injection INJECT 1 ML INTRAMUSCULARLY EVERY MONTH DIRECTED 1 mL 11 5 12:58 PM EST 11/17/19 25 Active cholecalciferol (Vitamin D-3) 25 MCG tablet TAKE 1 TABLET BY MOUTH EVERY MORNING 90 tablet 3 5 4:29 PM EST 11/23/19 25 Active glucose 4 g chewable tablet CHEW 4 TABLETS NEEDED FOR low blood sugar (LESS THAN 70mg/dL) Active hydroCHLOROthiaz kelle 12.5 MG tablet Take 12.5 mg by mouth in the morning. Active losartan (Cozaar) 25 MG tablet TAKE 1 TABLET BY MOUTH TWICE DAILY IN THE MORNING AND IN THE EVENING Active TRUEplus Lancets 33G miscIndications: Type 2 diabetes mellitus with obesity USE DIRECTED TO TEST BLOOD SUGAR TWICE DAILY 100 each 5 02/06/20 25 Active FREESTYLE LITE test stripIndications :Type 2 diabetes mellitus with obesity USE DIRECTED TO TEST BLOOD SUGAR TWICE DAILY 100 strip 5 02/06/20 25 Active Alcohol Swabs (Alcohol Prep) 70 % pads USE DIRECTED TWICE DAILY 100 each 11 5 1:00 PM EST 02/16/20 25 Active cetirizine (ZyrTEC) 10 MG tablet TAKE 1 TABLET BY MOUTH EVERY MORNING 90 tablet 1 5 4:29 PM EST 05/09/20 25 Active oxybutynin (Ditropan) 5 MG tabletIndication s:Urge incontinence TAKE 1 TABLET BY MOUTH TWICE DAILY IN THE MORNING AND IN THE EVENING NEEDED 180 tablet 1 5 4:29 PM EST 05/09/20 25 Active amLODIPine (Norvasc) 5 MG tablet Take 1 tablet (5 mg) by mouth Once per day. 05/14/20 25 026 Active omeprazole (PriLOSEC) [address] capsule TAKE 1 CAPSULE BY MOUTH TWICE DAILY IN THE MORNING AND IN THE EVENING 180 capsule 5 4:29 PM EST 05/17/20 25 Active Emollient (CeraVe Moisturizing) creamIndications :Cobalamin deficiency Apply a thin layer once a day to the affected skin 340 g 2 05/24/20 25 Active Hospital, Clinic, or Other Facility [...] (urinary tract infection) 09/19/2024 Mild vascular dementia ([facility]) 09/03/2024 Assessment & Plan (09/03/2024 9:54 AM [...] CKD (chronic kidney disease) 03/29/2023 Atrial fibrillation ([facility]) 11/17/2022 History of arthroplasty of right knee 11/17/2022 Varicose veins of right lower extremity with inf lammation 11/17/2022 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 08/31/2022 Lentiginosis 10/13/2018 JOVANNI (obstructive sleep apnea) 10/02/2018 Overview (09/19/2024): Not using CPAP Chronic diastolic heart failure 05/25/2018 Overview (09/21/2023): [address] [id number] CARDIOLOGY NAME: SAMMIE FRANCOIS BAR CAPTAIN: QUINTANILLA UNIT #: [id number] PATIENT LOCATION: EKG REFERRING PHYSICIAN: ANIYA BERNARD MD DATE OF : 41 PCP: ANIYA BERNARD MD SEX: Female DATE: 04/20/18 CARD ECHO 2D M MODE W DOPPLER COLOR [id number] SYMPTOMS,HX?: I10 ESSENTIAL HTN; R60.0 LOCALIZED EDEMA Transthoracic Echocardiogram Patient (Last, First, Middle): SAMMIE FRANCOIS E Gender: Female Date of : 1945 Age: 72 Procedure Date: 04/20/2018 Procedure Type: Transthoracic Echocardiogram Location: OP Height: 157.48 cm Weight: 81.65 kg BSA: 1.83 m2 Heart Rate: bpm BP: 144 / 78 mmHg Environmental Permitting Specialist: Referring MD: ANIYA BERNARD MD Symptoms: I10 [...] of Final JANI IYER MD Report #: [id number] Status: Signed Dict: 04/20/18/ Trans: /SUBRAH DATE [...] 5 Abdominal bloating 09/19/2024 Acute hyperkalemia 09/19/2024 Asthma 09/19/2024 01/21/2025 Diarrhea 09/19/2024 01/21/2025 Diverticulitis 09/19/2024 01/21/2025 Dysphagia 09/19/2024 01/21/2025 Epigastric pain 09/19/2024 01/21/2025 MARIA R (acute kidney injury) 09/02/2024 Assessment & Plan (09/03/2024 9:57 AM EST): Resolving Daughter will bring paperwork related to housing to medical records. 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 caregiver available (daughter) Choking 01/05/2024 01/21/2025 Cough 01/05/2024 01/21/2025 Hospital discharge follow-up 01/05/2024 01/21/2025 CHF exacerbation 03/29/2023 03/29/2023 Osteoarthritis of right knee 03/29/2023 09/21/2023 Pneumonia 03/29/2023 01/21/2025 Preop cardiovascular exam 03/29/2023 Urinary urgency 03/29/2023 01/21/2025 Urge incontinence of urine 08/21/2018 0 09/21/2023 Knee pain 07/18/2017 09/21/2023 Tinea pedis 07/18/2017 09/21/2023 Encounters Date Type Department Care Team Description 06/24/2025 1:30 PM EST Nurse Only [facility] MEDIC[facility] [place] [address] Cherie Juarez, JERROD Cobalamin deficiency [E53.8] 06/24/2025 Orders Only GENERIC EXTERNAL DATA DEPARTMENT Provider, Generic External Data 06/19/2025 Travel 05/24/2025 10:30 AM EST Nurse Only [facility] MEDICINE [facility] [place] [address] Cindy Ly, JERROD Cobalamin deficiency 05/24/2025 Telephone [facility] [place] [address] Balta Jeffrey MD 05/24/2025 Travel 05/16/2025 Refill [facility] [place] [address] Lorena Mccormick ANP 05/14/2025 10:45 AM EST Office Visit [facility] [place] [address] Balta Jeffrey MD 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 (HCC) (Primary Dx); Chronic diastolic heart failure (HCC); Stage 3 chronic kidney disease, unspecified whether stage 3a or 3b CKD (CMS/HCC) (HCC); Encounter for immunization 05/14/2025 Travel 05/13/[address] [address] Kanwal Taylor MA chart prep 05/10/2025 11:00 AM EDT Telemedicine [address] [address] Flores Cabrera, JERROD Primary hypertension 05/10/2025 Travel 05/10/[address] [address] Ynes Stevenson, JERROD 05/09/[address] [address] Balta Jeffrey MD Urge incontinence 05/07/2025 Orders Only [address] [address] Lilian Torres PharmD 05/03/2025 9:30 AM EDT Office Visit [address] [address] Lorena Mccormick ANP Gastroesophageal reflux disease, unspecified whether esophagitis present (Primary Dx); Primary hypertension; Chronic diastolic heart failure (HCC); Paroxysmal atrial fibrillation (CMS/HCC) (HCC); Chronic kidney disease, unspecified CKD stage; Primary osteoarthritis of both knees 05/03/2025 Travel 05/02/[address] [address] Balta Jeffrey MD chart prep 05/01/[address] [address] Balta Jeffrey MD ER Follow-up 04/25/2025 1:00 PM EDT Clinical Support [address] [address] Cindy Ly, JERROD Encounter for immunization 04/25/2025 Travel 03/28/[address] [address] Balta Jeffrey MD Durable Medical Equipment 03/27/2025 Telephone [facility] MEDICINE [address] [place] [address] Kanwal Taylor MA Durable Medical Equipment 03/26/2025 10:00 AM EDT Clinical Support [facility] MEDICINE [address] [place] [address] Cindy Ly, JERROD Cobalamin deficiency 03/26/2025 Travel from Last 3 Months Immunizations Immunization [...] Description 07/25/2025 1:30 PM EST Clinical Support [facility] MEDICINE [address] [place] [phone] 09/16/2025 11:30 AM EDT Office Visit [facility] OPTOMETRY [address] [place] [address] Esther Mcdonald, OD [address] [place] [address] Health Maintenance Due Date Last Done Comments [...] Procedure Name Priority Date/Time Associated Diagnosis Comments COMPREHENSIVE METABOLIC PANEL Routine 06/24/2025 2:41 PM EST CBC Routine 06/24/2025 2:41 PM EST POCT GLYCATED HEMOGLOBIN, TOTAL Routine 05/14/2025 11:10 AM EST 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 (HCC) POCT GLUCOSE Routine 05/14/2025 11:10 AM EST 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 (HCC) LIPID PANEL, STANDARD Routine 12/26/2023 1:22 PM EDT Hypertension, unspecified type from Last 3 Months or Most Recently Relevant to Health Maintenance Results * (ABNORMAL) CBC (06/24/2025 2:41 PM EST) White Blood Count 9.4 4.8 - 10.8 X10*3/uL [facility] Red Blood Count 5.04 4.20 - 5.50 X10*6/uL [facility] Hemoglobin 12.5 12.0 - 16.0 g/dl [facility] Hematocrit 40.2 37.0 - 47.0 % [facility] Mean Corpuscular Volume 79.8(L) 80.0 - 98.0 fL [facility] Mean Corpuscular Hemoglobin 24.8(L) 27.0 - 33.0 pg [facility] Mean Corpuscular HGB Conc 31.1 31.0 - 35.0 g/dl [facility] Red Cell Distribution Width 17.0(H) 11.0 - 16.0 % [facility] Platelet Count 280 160 - 400 X10*3/uL [facility] Mean Platelet Volume 10.8 9.4 - 12.3 fL [facility] NRBC Pct Auto 0.0 0.0 - 0.2 /100WBC [facility] NRBC Abs Auto 0.000 0.0 - 0.012 X10*3/uL [facility] 06/24/2025 2:41 PM EST 06/24/2025 2:41 PM EST us Generic External Data Provider LAB BLOOD ORDERAB LES Final Result [facility] [address] [place], [place] [phone] * (ABNORMAL) Comprehensive Metabolic Panel (06/24/2025 2:41 PM EST) Sodium 141 135 - 145 mmol/L [facility] Potassium 3.2(L) 3.3 - 5.1 mmol/L [facility] Chloride 100 96 - 108 mmol/L [facility] Carbon Dioxide 31(H) 22 - 29 mmol/L [facility] Anion Gap 13 12 - 20 [facility] Urea Nitrogen (BUN) 16 9 - 16 mg/dL [facility] Creatinine, Serum 1.09 0.5 - 1.4 mg/dL [facility] Estimated Glomerular Filt Rate 48 [facility] Comment:Chronic Kidney Disea se: Estimated GFR < 60 mL/min/[id number] Kidney Disease: Estimated GFR < 15 mL/min/1.73m2 Glucose 121(H) 60 - 115 mg/dL [facility] Calcium 10.4(H) 8.4 - 10.2 mg/dL [facility] Bilirubin, Total 0.4 0.0 - 1.0 mg/dL [facility] Aspartate Amino Transferase 23 5 - 31 U/L [facility] Alanine Aminotransferase 11 0 - 31 U/L [facility] Total Protein 7.8 6.5 - 8.0 g/dL [facility] Albumin Level 4.5 3.5 - 5.0 g/dL [facility] Alkaline Phosphatase 184(H) 39 - 117 U/L [facility] 06/24/2025 2:41 PM EST 06/24/2025 2:41 PM EST Generic External Data Provider LAB BLOOD ORDERAB LES Final Result [facility] [address] [place] [address] [phone] * (ABNORMAL) POCT Hgb A1c (05/14/2025 11:10 AM EST) Hemoglobin A1C 5.9(A) 4.0 - 5.7 % QC Media Lot # [id number] Lot# Expiration Date Blood 05/14/2025 11:1 0 AM EST Balta Jeffrey MD POINT OF CARE TEST ENTER/EDIT OR DERABLES Final Result * POCT Glucose (05/14/2025 11:10 AM EST) Glucose Blood, POC 120 60 - 200 mg/dL QC Media Lot # [id number] Lot# Expiration Date [id number] Blood Capillary blood specimen / Unknown 05/14/2025 11:10 AM EST Balta Jeffrey MD POINT OF CARE TEST ENTER/EDIT OR DERABLES Final Result * Lipid Panel, Standard (12/26/2023 1:22 PM EDT) Triglycerides 52 <150 mg/dL [facility] Comment:Desirable Triglyceri de: less than 150 mg/dLBorderline High Triglyceride 150-199 mg/dLHigh Triglyceride: 200-499 mg/dLVery High Triglyceride: greater than or equal to 5OO mg/dL Cholesterol 169 <200 mg/dL [facility] Comment:Desirable Cholestero l: less than 200 mg/dLBorderline High Cholesterol: 200-239 mg/dLHigh Cholesterol: greater than 239 mg/dL LDL Cholesterol Calculated 92 <100 mg/dL [facility] Comment:Desirable LDL: less than 100 mg/dLNear Optimal/Above Optimal LDL: 110- 129 mg/dLBorderline High LDL: 130-159 mg/dLHigh LDL: 160-189 mg/dLVery High LDL: greater than or equal to 190 mg/dL HDL Cholesterol 67 >40 mg/dL [facility] Comment:Desirable HDL: great er than 40 mg/dL Note: This HDL assay may give artificially low results in patients with liver disease. Blood Venous blood specimen / Unknown 12/26/2023 1:22 PM EDT 12/26/2023 3:56 PM EDT us Balta Jeffrey MD LAB BLOOD ORDERABLES Final Resul t [facility] [address] [place] [address] [phone] from Last 3 Months or Most Recently Relevant to Health Maintenance Insurance [employer] (O D-SNP) MIROSLAVA STRAUSS [id number] Advance Directives Documents on File Type Date Recorded Patient Staffing Executive Expl anation HealthCare Proxy 12/25/2024 12:53 PM Care Teams Bath Steward Relationship Specialty Start Date End Date Name, MD Balta [address] [place] [phone] PCP - General Internal Medicine 06/14/22 [facility] 08/05/24
--- OUTSIDE RECORDS SUMMARY | 2025-06-24 20:24 | XMS_ITS | Encounter Summary ---
Author Organization [employer] Address [address] [place] [address] Care Team Providers Care Rn Enterostomal Name Role Phone Name, Balta MAYER Primary Care Provider [phone] Encounter Details Date Type Department Care Team (Late st Contact Info) Description 07/20/2024 Community Care Management [facility] MEDICINE [address] [place] [address] Epiccare Link, Physician, Social History Tobacco Use [...] Description 07/25/2025 1:30 PM EST Clinical Support [facility] MEDICINE [address] [place] [address] 09/16/2025 11:30 AM EDT Office Visit [facility] OPTOMETRY [address] [place] [address] Harry, Esther, OD [address] [place] [address] documented as of this encounter Visit Diagnoses Not on filedocumented in this encounter Additional Health Concerns Assessment Noted Time PHQ-9 Depression Total Score: 0 09/20/19 24 1:15 PM EDT documented as of this encounter Care Teams Rn Enterostomal Relationship Specialty Start Date End Date Name, MD Balta [address] [place] [address] PCP - [facility] documented as of this encounter
--- OUTSIDE RECORDS SUMMARY | 2025-06-24 20:24 | XMS_ITS | Data Portability ---
Author Organization [employer] [facility], [facility] [employer] [facility] Address [address] [place] [phone] Care Team Providers Care Visual Manager Name Role Phone NAME, JOSE Primary Care Provider HIM CHRIS OTHER Assessment Encounter Date Assessment Date Assessment LastModified by Organization Details LastModified Time 10/07/2024 10/07/2024 Mrs. Amado degroot was evaluated for confusion and urinary symptoms. On assessment she is afebrile, mildly bradycardic and hypertensive. Per gear cutting machine operator assessment she is independently ambulatory [...] Assessment and Plan as documented by the Factory Assembler. We discussed the diagnostic uncertainty of home [...] Assessment and Plan as documented by the Factory Assembler. We discussed the diagnostic uncertainty of home [...] agreeable they are requesting she go to [facility]. EMS initiated by [facility] provider, I called report to meteorologist in chargeJaymie at [facility] ER [email or web address] Not available 10/08/2024 17:38:59 11/23/2024 11/23/2024 service [...] assessment and plan as documented by the gear cutting machine operator. I provided real time medical direction for this encounter and was immediately available to provide additional phone based assistance as needed. History as noted by gear cutting machine operator. Pt with history HTN, DM2, and ? [...] the pt by private vehicle to the [facility] ED for evaluation. I feel comfortable with the pt going there via private car at this time. I discuss case with one of the ED providers at [facility] as well. [email or web address] Not available 01/15/2025 12:22:44 04/30/2025 04/30/2025 I provided real -time medical direction via phone for this encounter, and was available for additional phone based assistance as needed. I have reviewed and agree with the Assessment and Plan as documented by the Factory Assembler. We discussed the diagnostic uncertainty of home visits and the risk associated with this. The patient /family given the opportunity to ask questions. [email or web address] Not available 04/30/2025 11:53:11 Plan of Treatment Reminders Order Date Submit Date Provider Last Modified By Organization Details Last Modified Time Details Appointments None recorded. Lab urinalysis, dipstick 2024 025 [facility], [address] [place] [address], [id number] 5 20:08:02 BMP, serum or plasma [address], [id number] 5 20:08:02 culture, urine 2024 025 [facility], [address], [address], [place], [address], 20:14:38 urinalysis, dipstick 2024 [facility], [address] [place] [address], [id number] 20:08:03 glucose, fingerstick , blood 2024 [email or web address] 0 [facility], [address] [place] [address], [id number] 15:20:09 urinalysis, dipstick 2024 [facility], [address] [place] [address], [id number] 19:19:04 BMP, serum or plasma 2024 [facility], [address] [place] [address], [id number] 19:19:23 culture, urine 2024 [place] [facility] (Centralized Electronic Ordering - All Locations), Patient Can Go To The Location Of Their Choice, [address] 12:05:39 Referral None recorded. Procedures None recorded. Surgeries None recorded. Imaging electrocard iogram 2024 025 [facility], [address] [place] [address], [id number] 11:25:27 electrocard iogram 2024 025 [facility], [address] [place] [address], [id number] 00:24:18 Medication Orders cefpodoxime 200 mg tablet 2024 [place] [facility], [address] [facility], [place], [address], 19:21:07 sodium chloride 0.9 % intravenous solution 2024 [email or web address] [address] [facility]2071, [address] [place], [address], 15:21:50 cefpodoxime 200 mg tablet 2024 025 [place] [facility]2071, [address] [place], [address], 18:19:44 ceftriaxone 1 gram solution for injection 2024 025 [email or web address] [facility]acy [facility]2071, [address] [place], [address], 5 14:11:56 sodium chloride 0.9 % intravenous solution 2024 025 [email or web address] [facility]2071, [address] [place] [address], [address], 14:12:07 Patient TargetsNo targets recorded. Patient InstructionsNo instructions recorded. Reason for Referral None Reported. Results Created Date Observation Date Name Description Value Unit Range Abnormal Flag Note LastModifiedBy Organization Detail LastModifiedTime 10/08/1910/09/2024 URINE CULTU RE,CO MPREH ENSIV E urine culture,comp rehensive Final report abnormal Not Available [facility] ([facility]) [address] [place], [address], 10/09/2024 14:06:17 10/08/1910/09/2024 URINE CULTU RE,CO MPREH ENSIV E result 1 Klebsi abhi oxytoc a abnormal Great er than 100,0 00 colon y formi ng units per mL Not Available [facility] ([facility]) [address] [place], [address], 10/09/2024 14:06:17 10/08/19 25 10/09/2024 URINE CULTU RE,CO MPREH ENSIV E result 2 Not applic able Not Available [facility] ([facility]) [address] [place], [address], 10/09/2024 14:06:17 10/08/19 25 10/09/2024 URINE CULTU [...] thopr im/Foster lfa S Not Available [facility] ([facility]) [address] [facility], [place], [address], 10/09/2024 14:06:17 10/09/19 25 10/08/2024 gluco se, finge rstic k, blood Blood Glucose: mg/dl 220 Not Available [facility] [address] [place] [address], [id number] 10/08/2024 15:18:52 11/24/19 25 11/29/2024 CULTU RE, URINE , ROUTI NE culture, urine, routine SEE NOTE abnormal CULTU RE, URINE , ROUTI NE Micro Numbe r: [id number] Test Statu s: Final Speci men [...] lexin and lorac arbef . Not Available [facility] [address], [place], [address], 11/29/2024 10:07:23 10/09/19 25 10/08/2024 elect rocar diogr am No observ ation record ed. [email or web address] [facility] [address] [place] [address], [id number] 10/08/2024 18:13:27 01/16/2001/15/2025 elect rocar diogr am No observ ation record ed. [email or web address] [facility] [address], [address] 01/15/2025 12:58:38 Result Notes None recorded. Medical Equipment None Reported. Allergies Allergen ID Allergen Name Allergen Category Reaction Reaction Severity Criticality Documentation Date Start Date Code Code System Note Provider Name and Address Organization Details Recorded Time 04951 Product containin g penicilli n (product) medicatio n Not available Not available Not available 10/07/2024 88805 8001 SNOMED Not Available [facility] - production [...] rate Respiratory rate Body temperature Oxygen saturation Systolic And Diastolic Provider Name and Address Organization Details Last Updated DateTime 5 50 /min 14 /min 98.9 [degF] 97 % 134/76 mm[Hg] Not Available [email or web address] 5 13:57:20 Date Recorded Respiratory rate Body height Body weight Oxygen saturation Heart rate Systolic And Diastolic Provider Name and Address Organization Details Last Updated DateTime 5 14 /min 157.48 cm 90920.6 g 96 % 40 /min 109/63 mm[Hg] Not Available [email or web address] 5 15:17:36 Date Recorded Oxygen saturation Body weight Respiratory rate Body height Body temperature Heart rate Systolic And Diastolic Provider Name and Address Organization Details Last Updated DateTime 5 95 % 82151.1 92 g 19 /min 139.7 cm 98.1 [degF] 79 /min 160/53 mm[Hg] Not Available [email or web address] 5 18:18:07 Date Recorded Respiratory rate Heart rate Oxygen saturation Body temperature Body weight Body height Systolic And Diastolic Provider Name and Address Organization Details Last Updated DateTime 5 16 /min 71 /min 94 % 97.4 [degF] 78135.9 68 g 162.56 cm 164/81 mm[Hg] Not Available [email or web address] 5 11:13:07 Date Recorded Oxygen saturation Heart rate Respiratory rate Body temperature Systolic And Diastolic Provider Name and Address Organization Details Last Updated DateTime 5 97 % 71 /min 16 /min 98.3 [degF] 218/98 mm[Hg] Not Available [email or web address] 5 11:15:27 Social History None recorded. Functional Status None recorded. Mental Status None recorded. Family History Nothing Reported. Medical History No medical history recorded. Gynecological HistoryNo gynecological history recorded. Obstetrics History GPAL:G 0 P 0 0 0 0 Past Encounters Encounter ID Performer Location Encounter Start Date Encounter Closed Date Diagnosis/Indication Diagnosis SNOMED-CT Code Diagnosis ICD10 Code Diagnosis IMO Codes Diagnosis Note [id number] ROSALIO JOSEPH MD [facility] - [address] [address] 10/07/2024 13:57:18 10/30/2024 16:31:13 Acute urinary tract infection 704808502 N39.0 [id number] Charlotte Cao MD [address] [address] 10/08/2024 15:17:33 10/08/2024 23:30:26 Altered mental status 175429784 R41.82 posible urosepsis patient is borderline hypotensiv e, clammy,, she is not hypoglycem ic. EKG reveals sinus bradycardi a at a rate of 48/there is a ME visible but the EKG did not capture [...] to compare it to/explain ed to family [id number] Kyung Posadas MD [address] [address] 11/23/2024 18:17:59 11/23/2024 21:58:18 Recurrent urinary tract infection [id number] N39.0 [id number] Urinary symptoms 2320021 08 R39.9 [id number] Theodore Bliss [facility] [address] [address] 01/15/2025 11:12:58 01/16/2025 21:34:45 Chest pain [id number] R07.9 [id number] Charlotte Cao MD [facility] [address] [address] 04/30/2025 11:15:21 04/30/2025 17:52:23 Hypertensive urgency [id number] I16.0 [id number] w/ orthostasi s.Patient' s blood pressure at [...] Monzon Member ID Guarantor Name 04/30/2025 1 [facility] - DOS ON OR AFTER 2022 - DUAL ELIGIBLE - HALFWAY OPTIONS AND ONE CARE (MEDICARE REPLACEMENT/ADV ANTAGE - HMO) Victorina Fischer Mike [id number] Victorina Fischer Mike Notes Date Note Type Note Provider Name and Address Organization Details Recorded Time 10/07/2024 text/html ROS as noted in the [facility] CRC Nurse Triage Notes (Bryan Santiago): Reason [...] Type 2 PMH Reviewed at 10/07/2024 - :09 Allergies Reviewed at 10/07/2024 - 11:09 Comments: Water Plant Maintenance Mechanic verified the Pt.'s name//address and phone number. [...] the counter medication - Wellness check requested. Factory Assembler Organization Information for José Miguel Romero [employer] Legal Name: [facility] Address: [address] [place] [address], [place] [address], Hand Tier: Juan Wilson MD CLIA No.: [id number] Factory Assembler POC Test Results from José Miguel Romero [...] ...................... ...................... ...................... ...................... ...................... ...................... ......... Factory Assembler Note From José Miguel Romero: This visit [...] questions and are agreeable to this plan. [facility] Orders: urinalysis, dipstick: Performed BMP, serum or plasma: Performed culture, urine: Performed [facility] Medication Orders: ceftriaxone 1 gram solution for injection: Administered sodium chloride 0.9 % intravenous solution: Administered ...................... ...................... ...................... ...................... ...................... ...................... ......... [facility] Consulted: Rosalio Joseph ...................... ...................... ...................... ...................... ...................... ...................... ......... Disposition: Fulfilled ROSALIO JOSEPH MD [address] [place] [address],[address], [place], [address], [employer] 10/07/2024 14:53:49 10/08/2024 text/html ROS as noted in the [facility] Nurse Triage Notes (Sirisha Segovia): [...] at 10/08/2024:56Allergies Reviewed at 10/08/2024 - :56Comments: Water Plant Maintenance Mechanic verified the name//address and phone number. Son [...] s/s and seek emergency treatment if need Factory Assembler Organization Information for Elma Mensah Legal Name: [employer]. Address: [address] [place] [address], Hand Tier: Morro Kwon MD CLIA No.: [id number] Factory Assembler POC Test Results from Elma Mensah EKG (15:22:55) EKG test performed. Attachments uploaded as part of this test result can be found under Documents section. Blood Glucose Measurement (15:22:57) Blood Glucose: 220 mg/dL ...................... ...................... ...................... ...................... ...................... ...................... ......... Factory Assembler Note From Elma Mensah: SHELLEY makes pt [...] she is not bleeding anywhere. Pt is Israeli-speaking only and family is present and on the phone to provide hx and translation. Family tells [facility] the pt was seen by [facility] yesterday and dx w/ a UTI, a [...] Son tells [facility] She just isn't herself! Pt offers no complaints to [facility]. She denies cp, sob, n/v/d, abd pain. She is intermittently somnolent during the visit and exam, often closing her eyes for several minutes. She is able to follow commands well. Daughter tells [facility] the swelling in her feet and LEs seems to be a little bit worse over the past couple days. [facility] obtains vital signs and pt is assessed. [...] sleepy . [facility] contacts [facility] and discusses the above. Out of concern for urosepsis, [facility] and [facility] feel pt should be transported to the hospital for further evaluation and care. Family is amendable to the plan. [facility] orders FSBG, a 12-lead EKG, and 500mls NS fluid bolus. Finger stick and EKG are obtained. A 20ga IV is established in the L AC and 500mls NS are administered. [facility] calls 911 and pt is transported to [facility] by [facility]. [facility] is clear. Report completed by NISHA Mensah [id number]. [facility] Orders: glucose, fingerstick, blood: Performed [facility] Medication Orders: sodium chloride 0.9 % intravenous solution: Administered ...................... ...................... ...................... ...................... ...................... ...................... ......... [facility] Consulted: Charlotte Cao ...................... [...] rods. Charlotte Cao MD [address] [facility],[address], [place], [address], [employer] 10/08/2024 17:39:10 11/23/2024 text/html CRC Nurse Triage [...] signs of when to seek emergency care. Factory Assembler Organization Information for [employer] Legal Name: [facility] Address: [address] [place] [address], [place] [address], Hand Tier: Juan Wilson MD CLIA No.: [id number] Factory Assembler POC Test Results from [employer] Urine [...] ...................... ...................... ...................... ...................... ...................... ...................... ......... Factory Assembler Note From Og Riddle: Pt chief complaint [...] placed in right ac for medication administration. [facility] Kyung Posadas consulted, Pt [...] to contact emergency services if any present. [facility] Orders: urinalysis, dipstick: Performed BMP, serum or plasma: Performed culture, urine: Performed urinalysis, dipstick: Performed ...................... ...................... ...................... ...................... ...................... ...................... ......... [facility] Consulted: Kyung Posadas ...................... ...................... ...................... ...................... ...................... ...................... ......... Disposition: Moon Kyung Posadas MD [address] [facility],[address], [place], [address], [employer] 11/23/2024 21:33:01 01/15/2025 text/html ROS as noted in the HPI This was a supervised home visit with gear cutting machine operator Elma Mensah. CRC Nurse Triage Notes (Sirisha [...] signs of when to seek emergency care. Factory Assembler Organization Information for Elma Mensah Legal Name: [employer]. A ddress: [address] [place] [id number], USMedical Director: Morro Kwon [facility] No.: [id number] Factory Assembler POC Test Results from Elma Mensah - [facility] EKG (10:59:09)EKG test performed.Attachments uploaded as part of this test result can be found under Documents section. ...................... ...................... ...................... ...................... ...................... ...................... ......... Factory Assembler Note From Elma Mensah: SC6 responds to the listed address for an 79yof w/ a c/c of chest pain. Upon arrival on scene, MIH is admitted to the apartment by family and pt is found seated in a recliner in the living room of the small apartment. She is alert and smiles and tracks MIH on approach. Pt, family, and [facility] recognize each other from previous encounter and rapport is easily re-established. Pt is animated and happy, no stridor or sonorous respirations are present. No facial droop or slurred speech are observed and she is not bleeding anywhere. Pt and family are Israeli-speaking only and one family member is on the phone to provide hx and translation. Pt is endorsing chest pain in the middle of her chest that started yesterday. She describes the pain as a pressure and at times is burning and will cause both shoulders to ache. She denies radiation to the neck, jaw, or back and denies n/v/d and sob. Pt tells MIChacha the pain is currently 2/10 and has [...] appointment is on the of this month. [facility] obtains vital signs and pt is assessed. [...] well as some ST depression in V4-V6. [facility] contacts [facility] and discusses the above and [facility] would like pt to receive further cardiac workup and converses w/ family about his concerns. Family is amendable to pt being evaluated and will transport pt to [facility]. [facility] is clear. Report completed by NISHA Mensah [id number]. ...................... ...................... ...................... ...................... ...................... ...................... ......... [facility] Consulted: Theodore Bliss ...................... ...................... ...................... ...................... ...................... ...................... ......... Disposition: Fulfilled Theodore Bliss MD [address] [facility],[address], [place], [address], [facility] [employer] 01/15/2025 12:23:06 04/30/2025 text/html ROS as noted in the [facility] CRC Nurse Triage Notes (Sophia Zavaleta): [...] reporting nausea, headache, feeling fatigued. Daughter reports [employer] called reporting symptoms. Denies vision changes. No PRNs for pain. Doesn't get headaches often. [employer] reported hypertension - high 100s/90s. Took antihypertensive at 7am - lisinopril. Not on any other antihypertensives. Denies chest pain, chest tightness or shortness of breath. Denies fever. Not on anticoagulation. Denies recent kidney issues. [facility] I provided information on the mobile health provider response time and advised the patient and/or caregiver to monitor reported signs and symptoms. I discussed the warning signs of when to seek emergency care. ...................... ...................... ...................... ...................... ...................... ...................... ......... Factory Assembler Note From Ernesto Macias: Dispatched to the [...] 25. Hypertension with headache Pt was assessed. [facility] consulted. Orthostatic checked. Pt [...] given to EMS crew. Pt transported to [facility] per her request. ALL times are approx. ...................... ...................... ...................... ...................... ...................... ...................... ......... [facility] Consulted: Charlotte Cao ...................... ...................... ...................... ...................... ...................... ...................... ......... Disposition: Fulfilled Charlotte Cao MD [address] [facility],[address] [facility], [place], [address], [facility] [employer] 04/30/2025 15:26:26 OBGyn Episode No OBEpisode recorded.
--- OUTSIDE RECORDS SUMMARY | 2025-06-24 20:24 | XMS_ITS | Encounter Summary ---
Author Organization [employer] Address [address] [place] [address] Care Team Providers Care Finish Off Operator Name Role Phone Name, Balta MAYER Primary Care Provider [phone] Encounter Details Date Type Department Care Team (Latest Contact Info) Description 06/19/2025 Travel Social History Tobacco Use Types Packs/Day [...] Description 07/25/2025 1:30 PM EST Clinical Support [facility] [address] [place] [address] 09/16/2025 11:30 AM EDT Office Visit [facility] [address] [place] [address] Harry, Esther, OD [address] [place] [address] documented as of this encounter Visit Diagnoses Not on filedocumented in this encounter Additional Health Concerns Assessment Noted Time PHQ-9 Depression Total Score: 10 025 10:31 AM EDT documented as of this encounter Care Teams Finish Off Operator Relationship Specialty Start Date End Date Name, MD Balta [address] [place] [address] PCP - General Internal Medicine [facility] documented as of this encounter
--- OUTSIDE RECORDS SUMMARY | 2025-06-24 20:24 | XMS_ITS | Clinical Summary ---
Author Organization [facility] Address [address] [address] Phone Care Team Providers Care Topper Press Operator Name Role Phone Pcp, Unknown Primary [...] topic Medical Devices Not on file Insurance [address] MEDICARE REPLACEMENT [place] STRAUSS [id number] [facility] MEDICARE REPLACEMENT [place] [id number] Care Teams Topper Press Operator Relationship Specialty Start Date End Date Pcp, Unknown PCP - General 07/08/23 Additional Source Comments The information contained in this document represents components of the legal health record. It is not the complete legal health record.[facility]
--- OUTSIDE RECORDS SUMMARY | 2025-06-24 20:24 | XMS_ITS | Encounter Summary ---
Author Organization [employer] Address [address] [place] [address] Care Team Providers Care Diabetes Clinical Manager Name Role Phone Name, Balta MAYER Primary Care Provider [phone] Reason for Visit * Reason Onset Date Comments Hospital Follow-up 10/18/2024 Encounter Details Date Type Department Care Team (Late st Contact Info) Description 10/18/2024 Telephone [facility] MEDICINE [address] [place], [place] [phone] Name, MD Balta [address] [place] [address] Hospital Follow-up Social History Tobacco Use Types [...] encounter Miscellaneous Notes * Telephone Encounter - Diclia Shah - 10/18/2024 1:12 PM EDT Tc from career manager Victorina requesting a HDF appt. Hospital: [facility] Date of admission: 10/08/24 Discharge date: 10/16/24 Diagnosed: Kidney stones and blood infection Contact pt daughter at [phone] (swedish) documented in this encounter Plan of Treatment Upcoming Encounters Date Type Department Care Team ([facility] st Contact Info) Description 07/25/2025 1:30 PM EST Clinical Support [facility] MEDICINE [address] [place] [address] 09/16/2025 11:30 AM EDT Office Visit [facility] OPTOMETRY [address] [place] [address] Harry, Esther, OD [address] [place] [address] documented as of this encounter Visit Diagnoses Not on filedocumented in this encounter Additional Health Concerns Assessment Noted Time PHQ-9 Depression Total Score: 0 09/20/19 24 1:15 PM EDT documented as of this encounter Care Teams Diabetes Clinical Manager Relationship Specialty Start Date End Date Name, MD Balta [address] [place] [address] PCP - General Internal Medicine 06/14/22 Samir TAI 08/05/24 documented as of this encounter
--- OUTSIDE RECORDS SUMMARY | 2025-06-24 20:24 | XMS_ITS | Encounter Summary ---
Author Organization [employer] Address [address] [place] [address] Care Team Providers Care Street Car Mechanic Name Role Phone Name, Balta MAYER Primary Care Provider [phone] Reason for Visit * Reason Onset Date Comments ER Follow-up 08/06/2024 Encounter Details Date Type Department Care Team (Late st Contact Info) Description 08/06/2024 Telephone [facility] MEDICINE [address] [place], [place] [phone] Name, MD Balta [address] [place] [address] ER Follow-up Social History Tobacco Use Types [...] from pt requesting a HDF appt. Hospital: [facility] Date of admission: 07/24/24 Discharge date: 08/02/24 Diagnosed: Acute Dysphagia *Send message to [place] Clinical Care Coordinators documented in this encounter Plan of Treatment Upcoming Encounters Date Type Department Care Team (Late st Contact Info) Description 07/25/2025 1:30 PM EST Clinical Support [facility] MEDICINE [address] [place] [address] 09/16/2025 11:30 AM EDT Office Visit [facility] OPTOMETRY [address] [place] [address] Esther Mcdonald, OD [address] [place] [address] documented as of this encounter Visit Diagnoses Not on filedocumented in this encounter Additional Health Concerns Assessment Noted Time PHQ-9 Depression Total Score: 0 09/20/19 24 1:15 PM EDT documented as of this encounter Care Teams Street Car Mechanic Relationship Specialty Start Date End Date Name, MD Balta [address] [place] [address] PCP - General Internal Medicine 06/14/22 Samir TAI 08/05/24 documented as of this encounter
--- OUTSIDE RECORDS SUMMARY | 2025-06-24 20:24 | XMS_ITS | Encounter Summary ---
Author Organization [employer] Address [address] [place] [address] Care Team Providers Care Cheese Weigher Name Role Phone Name, Balta MAYER Primary Care Provider [phone] Encounter Details Date Type Department Care Team (Late st Contact Info) Description 04/20/2023 Abstract [facility] MEDICINE [address] [place], [place] [phone] Name, MD Balta [address] [place] [address] Social History Tobacco Use Types Packs/Day Years [...] Description 07/25/2025 1:30 PM EST Clinical Support [facility] MEDICINE [address] [place] [address] 09/16/2025 11:30 AM EDT Office Visit [facility] OPTOMETRY [address] [place] [address] Esther Mcdonald, OD [address] [place] [address] documented as of this encounter Visit Diagnoses Not on filedocumented in this encounter Additional Health Concerns Assessment Noted Time PHQ-9 Depression Total Score: 4 08/31/19 23 10:26 AM EST documented as of this encounter Care Teams Cheese Weigher Relationship Specialty Start Date End Date Name, MD Balta [address] [place] [address] PCP - General Internal Medicine 06/14/22 Irving VNA 08/05/24 documented as of this encounter
--- OUTSIDE RECORDS SUMMARY | 2025-06-24 20:24 | XMS_ITS | Continuity of Care Document ---
Author Organization [facility] [employer] [facility], [facility] Address [address] [place] [address] Care Team Providers Care Tours Captain Name Role Phone NAME, JOSE Primary Care Provider [phone] HIM CHRIS OTHER Assessment Encounter Date Assessment Date Assessment LastModified by Organization Details LastModified Time 04/30/2025 04/30/2025 I provided real -time medical direction via phone for this encounter, and was available for additional phone based assistance as needed. I have reviewed and agree with the Assessment and Plan as documented by the Student Truck Driver. We discussed the diagnostic uncertainty of home visits and the risk associated with this. The patient /family given the opportunity to ask questions. [email or web address] Not available 04/30/2025 11:53:11 Plan of Treatment Reminders Order Date Submit Date Provider Last Modified By Organization Details Last Modified Time Details Appointments None record ed. Lab None record ed. Referral None record ed. Procedures None record ed. Surgeries None record ed. Imaging None record ed. Medication Orders None record ed. Patient TargetsNo targets recorded. Patient InstructionsNo instructions recorded. Reason for Referral None Reported. Medical Equipment None Reported. Allergies Allergen ID Allergen Name Allergen Category Reaction Reaction Severity Criticality Documentation Date Start Date Code Code System Note Provider Name and Address Organization Details Recorded Time 57855 Product containin g penicilli n (product) medicatio n Not available Not available Not available 10/07/2024 09558 8001 SNOMED Not Available [employer] - production [...] t Available Vitals Date Recorded Oxygen saturation Heart rate Respiratory rate Body temperature Systolic And Diastolic Provider Name and Address Organization Details Last Updated DateTime 97 % 71 /min 16 /min 98.3 [...] ICD10 Code Diagnosis IMO Codes Diagnosis Note [id number] [place] Cao MD [facility] ED Medical [facility] [address] [place] [address] 04/30/2025 11:15:21 04/30/2025 17:52:23 Hypertensive urgency [id number] I16.0 [id number] w/ orthostasi s.Patient' s blood pressure at [...] [employer] Member ID Guarantor Name 04/30/2025 1 [facility] - DOS ON OR AFTER 2022 - DUAL ELIGIBLE - NURSING HOME OPTIONS AND ONE CARE (MEDICARE REPLACEMENT/ADV ANTAGE - HMO) Victorina Mike [id number] Victorina Mike Notes Date Note Type Note [...] reporting nausea, headache, feeling fatigued. Daughter reports DIRECTOR SALES TRAINING called reporting symptoms. Denies vision changes. No PRNs for pain. Doesn't get headaches often. DIRECTOR SALES TRAINING reported hypertension - high 100s/90s. Took antihypertensive [...] ...................... ...................... ...................... ...................... ...................... ...................... ......... Student Truck Driver Note From Ernesto Macias: Dispatched to the [...] 25. Hypertension with headache Pt was assessed. [facility] consulted. Orthostatic checked. Pt and family were [...] given to EMS crew. Pt transported to [facility] per her request. ALL times are approx. ...................... ...................... ...................... ...................... ...................... ...................... ......... [facility] Consulted: Charlotte Cao ...................... ...................... ...................... ...................... ...................... ...................... ......... Disposition: Fulfilled Charlotte Cao MD [address] [facility] [facility], [place], [address], [email or web address] [facility] 04/30/2025 15:26:26 OBGyn Episode No OBEpisode recorded.
== END 2025-06-24 14:22 | disposition home or self-care (01) ==
LOC: HO.HKA 13:59
PROVIDERS: PCP Internal Medicine Geriatric Medicine; Visit Provider Internal Medicine Hypertension Specialist
DX: N18.32 Chronic kidney disease, stage 3b (principal); I50.32 Chronic diastolic (congestive) heart failure
CPT/HCPCS: 99214

== ENCOUNTER 2025-06-24 13:59 | Outpatient (REF) | payer OTHER, SELFPAY ==
[2025-06-24 14:59] LABS: Hematocrit 40.2 % (37.0-47.0); Hemoglobin 12.5 g/dl (12.0-16.0); Mean Corpuscular HGB Conc 31.1 g/dl (31.0-35.0); Mean Corpuscular Hemoglobin 24.8 pg (27.0-33.0); Mean Corpuscular Volume 79.8 fL (80.0-98.0); NRBC Abs Auto 0.000 X10*3/uL (0.0-0.012); NRBC Pct Auto 0.0 /100WBC (0.0-0.2); Platelet Count 280 X10*3/uL (160-400); Red Blood Count 5.04 X10*6/uL (4.20-5.50); White Blood Count 9.4 X10*3/uL (4.8-10.8)
[2025-06-24 15:37] LABS: Alanine Aminotransferase 11 U/L (0-31); Albumin Level 4.5 g/dL (3.5-5.0); Alkaline Phosphatase 184 U/L (39-117); Anion Gap 13 (12-20); Aspartate Amino Transferase 23 U/L (5-31); Blood Urea Nitrogen 16 mg/dL (9-16); Calcium 10.4 mg/dL (8.4-10.2); Carbon Dioxide 31 mmol/L (22-29); Chloride 100 mmol/L (96-108); Estimated Glomerular Filt Rate 48; Potassium 3.2 mmol/L (3.3-5.1); Sodium 141 mmol/L (135-145); Total Protein 7.8 g/dL (6.5-8.0)
== END 2025-06-24 14:00 | disposition home or self-care (01) ==
LOC: HO.LAB 13:59
PROVIDERS: PCP Internal Medicine Geriatric Medicine; Visit Provider Internal Medicine Hypertension Specialist
DX: I13.0 Hypertensive heart and chronic kidney disease with heart failure and stage 1 through stage 4 chronic kidney disease, or unspecified chronic kidney disease (principal); I50.32 Chronic diastolic (congestive) heart failure; N18.32 Chronic kidney disease, stage 3b; Z79.899 Other long term (current) drug therapy
CPT/HCPCS: 36415; 80053; 85027; 99212